=== PATIENT | female | born 1950 | race Caucasian/White ===

== ENCOUNTER → 2020-03-28 11:36 | Outpatient (BNVA) | payer MEDICARE, MEDICAID, SELFPAY | PROVIDERS: PCP Student in an Organized Health Care Education/Training Program; Visit Provider Internal Medicine | DX: E11.9 Type 2 diabetes mellitus without complications (principal); E78.5 Hyperlipidemia, unspecified; I10 Essential (primary) hypertension | CPT/HCPCS: 82947; 99212 ==

== ENCOUNTER → 2020-09-28 08:40 | Outpatient (BNVA) | payer MEDICARE, MEDICAID, SELFPAY | PROVIDERS: PCP Student in an Organized Health Care Education/Training Program; Visit Provider Internal Medicine | DX: E11.9 Type 2 diabetes mellitus without complications (principal); E78.5 Hyperlipidemia, unspecified; I10 Essential (primary) hypertension | CPT/HCPCS: 82947; 83036; 99212 ==

== ENCOUNTER 2020-12-05 09:54 | Outpatient (REF) | payer MEDICARE, OTHER, SELFPAY ==
[2020-12-05 13:36] LABS: Estimated Average Glucose 232 mg/dL; Hemoglobin A1c % 9.7 %
[2020-12-05 13:57] LABS: Alanine Aminotransferase 58 U/L (0-31); Alkaline Phosphatase 116 U/L (39-117); Anion Gap 13 (12-20); Aspartate Amino Transferase 53 U/L (5-31); Bilirubin Total 0.6 mg/dL (0.0-1.0); Blood Urea Nitrogen 20 mg/dL (9-16); Calcium 9.9 mg/dL (8.4-10.2); Carbon Dioxide 26 mmol/L (22-29); Chloride 103 mmol/L (96-108); Cholesterol 165 mg/dL; Estimated Glomerular Filt Rate 46; Glucose Random 248 mg/dL (60-115); HDL Cholesterol 52 mg/dL; LDL Cholesterol Calculated 69 mg/dl; Potassium 4.2 mmol/L (3.3-5.1); Sodium 138 mmol/L (135-145); Total Protein 8.3 g/dL (6.5-8.0); Triglycerides 222 mg/dL
[2020-12-05 13:58] LABS: Alanine Aminotransferase 57 U/L (0-31); Alkaline Phosphatase 116 U/L (39-117); Aspartate Amino Transferase 52 U/L (5-31); Bilirubin Direct 0.3 mg/dL (0.0-0.5); Bilirubin Total 0.6 mg/dL (0.0-1.0); Total Protein 8.2 g/dL (6.5-8.0)
[2020-12-06 11:01] LABS: LDL Cholesterol Direct 72 mg/dL (<100)
== END 2020-12-05 09:55 | disposition home or self-care (01) ==
LOC: HO.10HDL 09:54
PROVIDERS: Student in an Organized Health Care Education/Training Program; Visit Provider Internal Medicine
DX: E11.9 Type 2 diabetes mellitus without complications (principal)
CPT/HCPCS: 36415; 80053; 80061; 80076; 82248; 83036; 83721

== ENCOUNTER 2020-12-08 13:35 | Outpatient (REF) | payer MEDICARE, OTHER, SELFPAY ==
[2020-12-08 14:22] LABS: Creatinine Urine 34.81 mg/dL; Microalbum/Creatinine Ratio Ur 68.9 ug/mg cr
== END 2020-12-08 13:36 | disposition home or self-care (01) ==
LOC: HO.LNP 13:35
PROVIDERS: Visit Provider Student in an Organized Health Care Education/Training Program
DX: E11.9 Type 2 diabetes mellitus without complications (principal)
CPT/HCPCS: 82043

== ENCOUNTER → 2021-01-02 08:11 | Outpatient (BNVA) | payer MEDICARE, OTHER, SELFPAY | PROVIDERS: PCP Student in an Organized Health Care Education/Training Program; Visit Provider Internal Medicine | DX: E11.22 Type 2 diabetes mellitus with diabetic chronic kidney disease (principal); I12.9 Hypertensive chronic kidney disease with stage 1 through stage 4 chronic kidney disease, or unspecified chronic kidney disease; N18.30 Chronic kidney disease, stage 3 unspecified; E78.5 Hyperlipidemia, unspecified; R01.1 Cardiac murmur, unspecified | CPT/HCPCS: 82947; 99212 ==

== ENCOUNTER → 2021-02-16 13:11 | Outpatient (BNVA) | payer MEDICARE, OTHER, MEDICAID, SELFPAY | PROVIDERS: PCP Student in an Organized Health Care Education/Training Program; Visit Provider Internal Medicine | DX: I35.8 Other nonrheumatic aortic valve disorders (principal); E11.8 Type 2 diabetes mellitus with unspecified complications; E11.22 Type 2 diabetes mellitus with diabetic chronic kidney disease; I12.9 Hypertensive chronic kidney disease with stage 1 through stage 4 chronic kidney disease, or unspecified chronic kidney disease; N18.30 Chronic kidney disease, stage 3 unspecified | CPT/HCPCS: 93005; 99212 ==

== ENCOUNTER → 2021-04-28 08:28 | Outpatient (REF) | payer MEDICARE, OTHER, SELFPAY ==
--- NOTE | 2021-04-28 08:34 | CA_ITS ---
Transthoracic Echocardiogram Patient (Last, First, Middle): Delaney Arias, Gender: Female Date of : 1950 Age: 70 Procedure Date: 04/28/2021 Procedure Type: Transthoracic Echocardiogram Location: OP Height: 149.86 cm Weight: 64.86 kg BSA: 1.60 m2 Heart Rate: bpm BP: 118 / 60 mmHg Car Dumper: Referring MD: Zen Meeks MD Symptoms: I35.8 - Other nonrheumatic aortic valve disorders Study Quality: Fair ECG Rhythm: Sinus Conclusions: - The left ventricular systolic function is hyperdynamic. The visually estimated ejection fraction is >70%. - No obvious valvular pathology seen on this study. Findings Left Ventricle Normal left ventricular cavity size. There is mildly increased left ventricular wall thickness. The left ventricular systolic function is hyperdynamic. The visually estimated ejection fraction is >70%. There is no evidence of regional wall motion abnormalities. Diastolic function is normal for age. Right Ventricle Normal right ventricular cavity size and systolic function. Atria The left atrium is normal in size. Aortic Valve There is a normal trileaflet aortic valve. There is no aortic valve stenosis. There is no aortic valve regurgitation. Mitral Valve The mitral valve appears normal. There is no mitral valve regurgitation. There is no mitral valve stenosis. Pulmonic Valve The pulmonic valve was not well visualized. Tricuspid Valve There is trace tricuspid valve regurgitation. The pulmonary artery systolic pressure is normal. Great Vessels The aortic annulus, sinuses of valsalva, and asc aorta are normal in size. Venous The inferior vena cava is normal in size and collapses greater than 50% with inspiration. Pericardium/Pleural There is no evidence of pericardial effusion. Prior Study Comparison Changes noted compared to prior study dated: 02/11/2019. LV hyperdynamic. Recommendations, Care & Conclusions No obvious valvular pathology seen on this study. Measurements 2D Linear Measurements IVSd: 1.25 0.6-0.9/0.6-1.0 cm LVIDd: 3.92 3.9-5.3/4.2-5.9 cm LVIDd Index: 2.45 2.4-3.2/2.2-3.1 cm/m2 LVIDs: 2.42 2.0-3.6 cm LVPWd: 1.23 0.7-1.1 cm Ao Root: 2.60 2.1-3.5 cm LA Diam: 3.80 2.7-3.8/3.0-4.0 cm LAIDs Index: 2.38 1.5-2.3 cm/m2 LV Mass: 209.98 67-162/88-224 g LV Mass Index: 131.24 43-95/49-115 g/m2 LVOT Diam: 2.00 3.0+(-)1.3 cm 2D Systolic Function EF 4C: 71.60 >55% EF 2C: 67.20 >55% EF BiP: 69.60 >55% Mitral Valve MV Pk E: 0.80 MV PK A: 0.98 MV Decel Time: 193.00 E/A: 0.80 E'Lateral: 8.16 E'Medial: 5.98 E/E' Med: 13.40 E/E' Lat: 9.80 PHT: 57.00 MVA PHT: 3.86 Decel [place]: 4.15 Aortic Valve AoV Pk Antony: 2.08 AoV Mn Antony: 1.45 AoV VTI: 0.35 AoV Pk Grad: 17.00 Aov Mn Grad: 10.00 YVES Cont.VTI: 2.73 LVOT LVOT Pk Antony: 1.58 LVOT Mn Antony: 0.94 LVOT VTI: 0.30 LVOT Pk Grad: 10.00 LVOT Mn Grad: 5.00 LVOT Diam: 2.00 LVOT Area: 3.14 Diastolic Function MV Pk E: 0.80 MV Pk A: 0.98 E/A: 0.80 E'Medial: 5.98 E/E' Med: 13.40 E' Laterial: 8.16 E/E' Lat: 9.80 Right Ventricle TAPSE (mm): 30.00 TVS' Antony: 14.00 Tricuspid Valve TR Pk Antony: 1.99 TR Pk Grad: 16.00 RA Press: 3.00 RVSP: 19.00 Great Vessels Aorta Ao Root-2D: 2.60 2.0-3.7 cm Ao Asc: 3.50 2.1-3.4 cm Pulmonary Valve PV Pk Antony: 1.32 Peak PV Grad: 7.00 Updated in Other Vendor System with Status of Final Zen Meeks MD electronically signed on 04/29/2021 1:46:42 PM with status of Final
== END ==
LOC: HO.CARD 08:28
PROVIDERS: PCP Student in an Organized Health Care Education/Training Program; Visit Provider Internal Medicine
DX: I35.8 Other nonrheumatic aortic valve disorders (principal)
CPT/HCPCS: 93306

== ENCOUNTER → 2021-05-08 08:48 | Outpatient (BNVA) | payer MEDICARE, OTHER, MEDICAID, SELFPAY | PROVIDERS: PCP Student in an Organized Health Care Education/Training Program; Visit Provider Nurse Practitioner Gerontology | DX: E11.22 Type 2 diabetes mellitus with diabetic chronic kidney disease (principal); I12.9 Hypertensive chronic kidney disease with stage 1 through stage 4 chronic kidney disease, or unspecified chronic kidney disease; N18.30 Chronic kidney disease, stage 3 unspecified; E78.5 Hyperlipidemia, unspecified | CPT/HCPCS: 82947; 83036; 99212 ==

== ENCOUNTER → 2021-05-31 08:45 | Outpatient (BNVA) | payer MEDICARE, MEDICAID, SELFPAY | PROVIDERS: PCP Student in an Organized Health Care Education/Training Program; Visit Provider Registered Nurse Diabetes Educator | DX: E11.8 Type 2 diabetes mellitus with unspecified complications (principal) | CPT/HCPCS: 99211 ==

== ENCOUNTER → 2021-06-28 09:30 | Outpatient (BNVA) | payer MEDICARE, MEDICAID, SELFPAY | PROVIDERS: PCP Student in an Organized Health Care Education/Training Program; Visit Provider Registered Nurse Diabetes Educator | DX: E11.8 Type 2 diabetes mellitus with unspecified complications (principal) | CPT/HCPCS: 99211 ==

== ENCOUNTER → 2021-08-08 08:29 | Outpatient (BNVA) | payer MEDICARE, MEDICAID, SELFPAY | PROVIDERS: PCP Student in an Organized Health Care Education/Training Program; Visit Provider Nurse Practitioner Gerontology | DX: E11.22 Type 2 diabetes mellitus with diabetic chronic kidney disease (principal); I12.9 Hypertensive chronic kidney disease with stage 1 through stage 4 chronic kidney disease, or unspecified chronic kidney disease; N18.30 Chronic kidney disease, stage 3 unspecified; E78.5 Hyperlipidemia, unspecified | CPT/HCPCS: 82947; 83036; 99212 ==

== ENCOUNTER → 2021-08-09 08:48 | Outpatient (BNVA) | payer MEDICARE, MEDICAID, SELFPAY | PROVIDERS: PCP Student in an Organized Health Care Education/Training Program; Visit Provider Dietitian, Registered | DX: E11.22 Type 2 diabetes mellitus with diabetic chronic kidney disease (principal); N18.9 Chronic kidney disease, unspecified; Z71.3 Dietary counseling and surveillance | CPT/HCPCS: 97802 ==

== ENCOUNTER → 2021-09-05 08:29 | Outpatient (BNVA) | payer MEDICARE, MEDICAID, SELFPAY | PROVIDERS: PCP Student in an Organized Health Care Education/Training Program; Visit Provider Registered Nurse Diabetes Educator | DX: E11.8 Type 2 diabetes mellitus with unspecified complications (principal); Z79.4 Long term (current) use of insulin | CPT/HCPCS: 99211 ==

== ENCOUNTER → 2021-09-14 13:26 | Outpatient (BNVA) | payer MEDICARE, MEDICAID, SELFPAY | PROVIDERS: PCP Student in an Organized Health Care Education/Training Program; Visit Provider Internal Medicine | DX: I35.8 Other nonrheumatic aortic valve disorders (principal); E11.9 Type 2 diabetes mellitus without complications; I10 Essential (primary) hypertension; Z79.4 Long term (current) use of insulin | CPT/HCPCS: 99212 ==

== ENCOUNTER 2022-11-20 09:49 | Outpatient (AMB) | payer MEDICARE, MEDICAID, SELFPAY ==
[2022-11-20 10:06] VITALS: BP 150/70; PULSE 81; BMI 26.4
--- NOTE | 2022-11-20 10:06 | MHC.OFFVIS ---
Intake Vital Signs 11/20/22 10:06 Height 4 ft 11 in Weight 130 lb 15.273 oz BMI 26.4 BP 150/70 H Blood Pressure Location Lt brachial Position Sitting Pulse 81 Intake Visit Reasons: 1 year follow up Intake Note: 1 year follow up w/ EKG It Infrastructure Manager Required: Yes It Infrastructure Manager Language: Therapeutic Case Manager Name: Vargas [id number] Accompanied by: Spouse Allergies penicillin V Allergy (Unknown, Verified 11/20/22 10:07) Unknown pseudoephedrine [Aprodine] Allergy (Unknown, Verified 11/20/22 10:07) Unknown triprolidine [Aprodine] Allergy (Unknown, Verified 11/20/22 10:07) Unknown Medication List - Last Reconciled 11/20/22 by Zen Meeks MD alcohol swabs (Alcohol Prep Pads) 1 pad topical TID-QID 30 days anastrozole 1 mg PO DAILY ascorbate calcium (vitamin C) 500 mg PO DAILY atorvastatin 40 mg PO DAILY 30 days blood sugar diagnostic (FreeStyle Lite Strips) 1 strip miscellaneous QID 30 days blood sugar diagnostic (FreeStyle Lite Strips) 4x daily blood-glucose meter (FreeStyle Lite Meter kit) As directed cholecalciferol (vitamin D3) 50 mcg PO DAILY 30 days dapagliflozin propanediol (Farxiga) 10 mg PO QAM dulaglutide (Trulicity) 4.5 mg (0.5 mL) subcut QWEEK flash glucose scanning reader (FreeStyle Ladan 2 [place]) As directed flash glucose sensor (FreeStyle Ladan 2 Sensor kit) Once every 14 days fluoxetine 20 mg PO DAILY insulin aspart U-100 (Novolog FlexPen U-100 Insulin aspart) 14 - 18 units (0.14 - 0.18 mL) subcut TID 30 days insulin glargine 30 units subcut BEDTIME lancets (TRUEplus Lancets) 1 gauge miscellaneous QID 30 days levothyroxine 100 mcg PO QAM losartan 50 mg PO DAILY mirtazapine 30 mg PO BEDTIME omeprazole 20 mg PO DAILY pen needle, diabetic (Pentips) 4 ea miscellaneous DAILY 30 days pen needle,diabetic dual safty (BD AutoShield Duo Pen Needle) As directed 4x/day risperidone 1 mg PO BEDTIME HPI HPI Comments History of Present Illness Details Delaney returns for follow-up. In the past, she was seen for aortic valve sclerosis which was detected after a cardiac murmur. Overall, doing good. No specific complaints. No angina or shortness of breath or in fact anything cardiac sounding. Blood pressure is on the higher side today, but she states she does not check it at home. [facility] Medical History (Updated 02/16/21 @ 14:20 by Zen Meeks MD) CKD (chronic kidney disease) stage 3, GFR 30-59 ml/min HLD (hyperlipidemia) HTN (hypertension) Murmur T2DM (type 2 diabetes mellitus) Vitamin D deficiency Surgical History History of lumpectomy of right breast History of mastectomy Hx of cataract surgery Family History Father Alzheimer disease Stroke Mother Breast cancer Social History Household Members: Spouse Alcohol intake: never Patient Tobacco Use Status: Never used Tobacco Review of Systems Const Denies chills, Denies fatigue, Denies fever(s), Denies frequent falls, Denies weakness, Denies weight gain and Denies weight loss ENT Denies dizziness Card Denies chest pain, Denies leg edema, Denies lightheadedness, Denies palpitations, Denies dyspnea, Denies dyspnea on exertion, Denies orthopnea and Denies other (Loss of consciousness) Resp Denies cough, Denies dyspnea and Denies dyspnea on exertion GI Denies hematochezia and Denies change in bowel habits Musc Denies abnormal gait, Denies muscle weakness, Denies numbness, Denies radiating pain into limb and Denies tingling Neuro Denies Abnormal speech present, Denies abnormal gait, Denies dizziness, Denies frequent falls, Denies numbness, Denies tingling and Denies weakness Endo Denies fatigue and Denies palpitations Physical Exam Vital Signs: Last Vital Signs Pulse 81 11/20/22 10:06 BP 150/70 H 11/20/22 10:06 BMI result Body Mass Index 26.4 Const General: comfortable and no acute distress Orientation/consciousness: patient oriented x3 HEENT Other: Unremarkable Head: Yes normal to inspection Neck Neck: Yes normal visual inspection Chest Chest palpation & inspection: normal inspection of the chest Resp Auscultation: clear to auscultation bilaterally Cardio Palpation: normal PMI Heart sounds: S1 normal heart sound present, S2 normal heart sound present, no gallops, Murmur heart sound present systolic II/ and at the right sternal border and no rubs GI Palpation (GI): Soft to palpation Back/Spine/Pelvis Other: unremarkable Skin General skin exam: no rashes or lesions noted Neuro General: patient oriented x3 Speech: No Abnormal speech present Extrem General: Yes normal to inspection Psych Mental Status: mental status grossly normal Assessment & Plan Assessment & Plan (1) Aortic valve sclerosis: Code(s): I35.8 - Other nonrheumatic aortic valve disorders (2) Essential hypertension: Code(s): I10 - Essential (primary) hypertension Plan Cardiac studies reviewed. Echocardiogram from 2019 reported to have mild aortic valve calcification but no significant stenosis. Repeat echocardiogram more recently thought to have rather hyperdynamic LVEF without any clear aortic valve dysfunction. Hence that might also lead to cardiac murmur. However, there was no clear outflow tract gradients noted. She has also had a myocardial perfusion study in the past which did not show any significant findings. No specific management for either of the above. We can recheck the aortic valve in 2-3 years. Otherwise, blood pressure is on the higher side. Advised to do home checks. She is on Losartan. Follow-up in about 2 years or so with an echocardiogram at that time. In the interim, she will call with concerns. Coding Level of Care Code Est Pt Level 3 (79829) Diagnoses Aortic valve sclerosis I35.8 Essential hypertension I10
== END 2022-11-20 10:28 | disposition home or self-care (01) ==
PROVIDERS: PCP Student in an Organized Health Care Education/Training Program; Referring Provider Student in an Organized Health Care Education/Training Program; Visit Provider Internal Medicine
DX: I35.8 Other nonrheumatic aortic valve disorders (principal); I10 Essential (primary) hypertension
CPT/HCPCS: 93010; 99213

== ENCOUNTER → 2022-11-20 09:49 | Outpatient (BNVA) | payer MEDICARE, MEDICAID, SELFPAY | PROVIDERS: PCP Student in an Organized Health Care Education/Training Program; Referring Provider Student in an Organized Health Care Education/Training Program; Visit Provider Internal Medicine | DX: I35.8 Other nonrheumatic aortic valve disorders (principal); I10 Essential (primary) hypertension | CPT/HCPCS: 93005; 99212 ==

== ENCOUNTER 2023-03-15 11:20 | Outpatient (REF) | payer MEDICARE, MEDICAID, SELFPAY ==
[2023-03-15 14:24] LABS: MANUAL DIFF FLAG NO
[2023-03-15 14:29] LABS: Basophils Percent Auto 0.2 % (0-2); Eosinophils Absolute Auto 0.1 X10*3/uL (0.0-0.4); Eosinophils Percent Auto 1.3 % (0-4); Hematocrit 34.4 % (37.0-47.0); Hemoglobin 10.7 g/dl (12.0-16.0); Imm Gran Abs Auto 0.01 X10*3/uL (0.00-0.03); Imm Gran Pct Auto 0.2 % (0.0-0.4); Lymphocytes Percent Auto 20.6 % (20-40); Mean Corpuscular HGB Conc 31.1 g/dl (31.0-35.0); Mean Corpuscular Hemoglobin 26.9 pg (27.0-33.0); Mean Corpuscular Volume 86.4 fL (80.0-98.0); Mean Platelet Volume 10.7 fL (9.4-12.3); Monocytes Absolute Auto 0.4 X10*3/uL (0.1-1.2); Monocytes Percent Auto 9.5 % (2-11); Neutrophils Absolute Auto 3.2 x10*3/uL (2.0-8.3); Neutrophils Percent Auto 68.2 % (45-73); Platelet Count 113 X10*3/uL (160-400); Red Blood Count 3.98 X10*6/uL (4.20-5.50); Red Cell Distribution Width 15.1 % (11.0-16.0); White Blood Count 4.7 X10*3/uL (4.8-10.8)
[2023-03-15 15:08] LABS: Alanine Aminotransferase 35 U/L (0-31); Alkaline Phosphatase 131 U/L (39-117); Anion Gap 13 (12-20); Aspartate Amino Transferase 36 U/L (5-31); Bilirubin Total 0.5 mg/dL (0.0-1.0); Blood Urea Nitrogen 20 mg/dL (9-16); C Reactive Protein 0.33 mg/dL (< or = 0.50); Calcium 10.4 mg/dL (8.4-10.2); Carbon Dioxide 28 mmol/L (22-29); Chloride 105 mmol/L (96-108); Estimated Glomerular Filt Rate 47; Glucose Random 95 mg/dL (60-115); Potassium 4.4 mmol/L (3.3-5.1); Sodium 142 mmol/L (135-145)
== END 2023-03-15 11:21 | disposition home or self-care (01) ==
LOC: HO.CHCLDS 11:20
PROVIDERS: Visit Provider Family Medicine
DX: R39.9 Unspecified symptoms and signs involving the genitourinary system (principal); K57.92 Diverticulitis of intestine, part unspecified, without perforation or abscess without bleeding; R74.01 Elevation of levels of liver transaminase levels
CPT/HCPCS: 36415; 80053; 85025; 86140; 87086; 87088; 87186

== ENCOUNTER 2023-09-03 15:09 | Outpatient (REF) | payer MEDICARE, MEDICAID, SELFPAY ==
[2023-09-03 18:38] LABS: MANUAL DIFF FLAG NO
[2023-09-03 19:10] LABS: Basophils Percent Auto 0.3 % (0-2); Eosinophils Absolute Auto 0.1 X10*3/uL (0.0-0.4); Eosinophils Percent Auto 1.3 % (0-4); Hematocrit 32.9 % (37.0-47.0); Hemoglobin 10.2 g/dl (12.0-16.0); Imm Gran Abs Auto 0.01 X10*3/uL (0.00-0.03); Imm Gran Pct Auto 0.3 % (0.0-0.4); Lymphocytes Absolute Auto 0.8 X10*3/uL (1.2-4.9); Mean Corpuscular Hemoglobin 26.8 pg (27.0-33.0); Mean Corpuscular Volume 86.4 fL (80.0-98.0); Monocytes Absolute Auto 0.5 X10*3/uL (0.1-1.2); Monocytes Percent Auto 13.1 % (2-11); Neutrophils Absolute Auto 2.4 x10*3/uL (2.0-8.3); Platelet Count 108 X10*3/uL (160-400); Red Blood Count 3.81 X10*6/uL (4.20-5.50); Red Cell Distribution Width 14.4 % (11.0-16.0); White Blood Count 3.8 X10*3/uL (4.8-10.8)
[2023-09-03 19:36] LABS: Alanine Aminotransferase 21 U/L (0-31); Albumin Level 3.6 g/dL (3.5-5.0); Alkaline Phosphatase 125 U/L (39-117); Anion Gap 14 (12-20); Aspartate Amino Transferase 38 U/L (5-31); Bilirubin Direct 0.2 mg/dL (0.0-0.5); Bilirubin Total 0.3 mg/dL (0.0-1.0); Blood Urea Nitrogen 30 mg/dL (9-16); Calcium 10.5 mg/dL (8.4-10.2); Carbon Dioxide 30 mmol/L (22-29); Chloride 99 mmol/L (96-108); Cholesterol 199 mg/dL (<200); Estimated Glomerular Filt Rate 58; Glucose Random 103 mg/dL (60-115); HDL Cholesterol 79 mg/dL (>40); LDL Cholesterol Calculated 104 mg/dL (<100); Potassium 4.3 mmol/L (3.3-5.1); Sodium 139 mmol/L (135-145); Total Protein 9.8 g/dL (6.5-8.0); Triglycerides 84 mg/dL (<150)
== END 2023-09-03 15:10 | disposition home or self-care (01) ==
LOC: HO.CHCLDS 15:09
PROVIDERS: Visit Provider Student in an Organized Health Care Education/Training Program
DX: G25.2 Other specified forms of tremor (principal)
CPT/HCPCS: 36415; 80048; 80061; 80076; 85025

== ENCOUNTER 2023-10-21 09:48 | Outpatient (REF) | payer MEDICARE, MEDICAID, SELFPAY ==
[2023-10-21 15:27] LABS: Appearance Urine Clear; Color Urine Yellow; Glucose Urine UA 500 mg/dL (Negative); Leukocyte Esterase Urine Small (1+) (Negative); Nitrite Urine Negative (Negative); UMIC TRIGGER UA YES; Urine Blood Small (1+) (Negative); Urine Ketones Negative (Negative); Urine Protein Negative (Neg-Trace)
[2023-10-21 15:56] LABS: Bacteria Urine 1+ (None Seen); RBC Urine 0-2 /HPF (0-2); Squamous Epithelial Cell Urine 0-2 /HPF (0-2)
== END 2023-10-21 09:49 | disposition home or self-care (01) ==
LOC: HO.HHCL 09:48
PROVIDERS: Visit Provider Student in an Organized Health Care Education/Training Program
DX: E11.22 Type 2 diabetes mellitus with diabetic chronic kidney disease (principal); Z79.4 Long term (current) use of insulin
CPT/HCPCS: 81001

== ENCOUNTER 2023-12-02 21:45 | Outpatient (BNV) | payer MEDICARE, MEDICAID, SELFPAY | END 2023-12-20 13:23 | PROVIDERS: Admitting Provider Psychiatry & Neurology Psychiatry; PCP Student in an Organized Health Care Education/Training Program; Visit Provider Internal Medicine | DX: R94.31 Abnormal electrocardiogram [ECG] [EKG] (principal) | CPT/HCPCS: 93306 ==

== ENCOUNTER 2023-12-02 21:45 | Inpatient (IN) | payer MEDICARE, MEDICAID, SELFPAY ==
--- NOTE | ~2023-12-02 | XR_ITS ---
EXAMINATION: XR ABDOMEN KUB CLINICAL INDICATION: Rule out obstruction in patient with shoulder fracture COMPARISON: None available. TECHNIQUE: AP view of the abdomen. FINDINGS: The bowel gas pattern is normal with no evidence of ileus or obstruction. Moderate stool seen in the colon. No unusual soft tissue calcifications are noted. Degenerative changes are seen in the visualized spine. XR/XR KUB IMPRESSION: No evidence of bowel obstruction. Moderate stool burden. Electronically signed by: Jonh Purdy MD 01/08/2024 07:58 PM EDT
--- NOTE | ~2023-12-02 | XR_ITS ---
EXAMINATION: XR SHOULDER, RIGHT CLINICAL INFORMATION: Pain, rule out fracture COMPARISON: None available. TECHNIQUE: AP external rotation, Grashey, scapular Y, and axillary views of the right shoulder. FINDINGS: There is impacted, angulated fracture through the surgical neck of right shoulder weakness intact glenohumeral joint acromioclavicular clavicular joint is unremarkable. XR/XR shoulder RT min 2V IMPRESSION: Comminuted fracture of the right shoulder Electronically signed by: Sean Kirkpatrick MD 01/01/2024 10:25 AM EDT
--- NOTE | ~2023-12-02 | CT_ITS ---
EXAMINATION: CT HEAD WITHOUT CONTRAST CLINICAL INFORMATION: Catatonia. COMPARISON: None available. TECHNIQUE: Contiguous axial imaging was performed from the skull base to vertex without intravenous administration of contrast. This CT examination was performed using dose optimization techniques as appropriate, variously including the following: *Automated exposure control *Adjustment of mA and/or kV according to patient size (this includes techniques or standardized protocols for targeted exams where dose is matched to indication/reason for exam; i.e. extremities or head) *Use of iterative reconstruction technique DLP: 581 mGy-cm FINDINGS: There is no evidence of intracranial hemorrhage or extra-axial fluid collection. There is no mass effect, or edema. No CT evidence of acute territorial infarct. Negative hyperdense MCA sign. Ventricles, sulci, and cisterns are diffusely somewhat prominent, in keeping with mild age advanced cerebral and cerebellar involutional changes. Ventricles are mildly dilated out of proportion to sulcal atrophy, most likely representing central volume loss. No definite hydrocephalus. No midline shift. Small lipoma in the anterior falx. Partial empty sella noted. Moderate hypodense white matter changes in the hemispheres bilaterally, consistent with moderate microangiopathic changes. Prominent right greater than left subinsular white matter hypodensities present, also likely microvascular in etiology. Hypodensity in the posterior dung, likely old lacunar type infarct. Bilateral old lacunar type infarcts in both thalami, both internal capsules involving the anterior and posterior limbs, and bilateral basal ganglia. Mild atheromatous calcification of the bilateral carotid siphons. Globes and orbital contents image normally. Bilateral lens replacements. No extracranial soft tissue abnormalities. The paranasal sinuses, mastoid air cells, and tympanic cavities are normally aerated. No suspicious bony abnormalities. Right parietal thinning noted, normal variant. CT/CT head/brain wo IV con IMPRESSION: 1. No acute intracranial abnormalities. No intracranial hemorrhage or mass effect. 2. Moderate small vessel ischemic changes in the hemispheric white matter. 3. 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 4. Age advanced cerebral and cerebellar involutional changes with prominent ventricles. Cannot definitively exclude a component of communicating hydrocephalus given the appearance.
--- NOTE | ~2023-12-02 | CT_ITS ---
EXAMINATION: CT HEAD WITHOUT IV CONTRAST CLINICAL INFORMATION: pupils fixed and non reactive COMPARISON: CT head without contrast 12/03/2023 TECHNIQUE: Contiguous axial imaging was performed from the skull base to vertex without intravenous contrast. Sagittal and coronal reformatted images were obtained. This CT examination was performed using dose optimization techniques as appropriate, variously including the following: * Automated exposure control * Adjustment of mA and/or kV according to patient size (this includes techniques or standardized protocols for targeted exams where dose is matched to indication/reason for exam; i.e. extremities or head) Use of iterative reconstruction technique DLP: 586 mGy-cm FINDINGS: No acute osseous or soft tissue abnormality. The mastoids are clear. Mild right sphenoid sinus mucosal thickening. There is no evidence of acute intracranial hemorrhage or territorial infarction. No abnormal mass effect or midline shift is seen. Fam to white matter differentiation is well preserved. No extra-axial fluid collections are identified. No hydrocephalus. Proportional prominence of the ventricles and sulcal spaces related to volume loss. Patchy periventricular and deep white matter hypoattenuation is consistent with moderate small vessel ischemic changes. Chronic lacunar infarcts involving the deep fam nuclei. No new parenchymal hypodensity. CT/CT head/brain wo IV con IMPRESSION: No acute intracranial abnormality including hemorrhage, mass effect, hydrocephalus, or acute territorial edematous infarction. Electronically signed by: Juan Alberto Murdock MD 12/10/2023 10:07 PM EDT
--- NOTE | ~2023-12-02 | XR_ITS ---
EXAMINATION: XR ABDOMEN KUB CLINICAL INDICATION: Constipation. COMPARISON: None available. TECHNIQUE: Portable AP view of the abdomen. FINDINGS: Mild elevation of the right hemidiaphragm. Limited evaluation of the lung bases. Cannot confirm or exclude left basilar focal infiltrate. Mild to moderate stool throughout the colon and rectal vault. No evidence of intestinal obstruction or free air. No soft tissue mass or organomegaly identified. No unusual soft tissue calcifications are noted. Mild degenerative changes of the spine and hips. Vascular calcification. Surgical clips project over the left upper quadrant/left lung base. XR/XR KUB IMPRESSION: Findings as above. Electronically signed by: Rakesh Garcia MD 01/05/2024 05:10 PM EDT
--- NOTE | ~2023-12-02 | XR_ITS ---
EXAMINATION: XR CHEST CLINICAL INFORMATION: Altered sensorium. COMPARISON: Report from a chest radiograph dated 09/23/2008. TECHNIQUE: Frontal view of the chest was obtained. FINDINGS: Chronic interstitial prominence without focal consolidative airspace opacity. Densities along the left lower chest which may represent pleural calcifications versus soft tissue calcifications. Correlation with lateral radiograph could help further evaluate. Left accessory surgical clips. No pleural effusion or pneumothorax. Unremarkable cardiomediastinal silhouette. XR/XR chest 1V IMPRESSION: 1. Chronic interstitial prominence without focal consolidative airspace opacity. 2. Densities along the left lower chest which may represent pleural calcifications versus soft tissue calcifications. Correlation with lateral radiograph could help further evaluate. Electronically signed by: Viral Smallwood MD 12/03/2023 01:33 PM EDT
[2023-12-02 22:30] VITALS: BP 135/61; PULSE 83; RESP 16; TEMP 36.8; O2SAT 95
[2023-12-02 22:59] LABS: Glucose, Whole Blood 296 mg/dL (60-115)
--- NOTE | 2023-12-03 00:07 | PC.ADMIT ---
patient arrived on unit 12/02/23 at 2217 via stretcher, at times patient will respond to her name, patient mostly unresponsive, patient nonsensical and delusional when she does respond, she was unable to sign consents or any admission paperwork, patient transferred from stretcher to bed d/t being immobile, scattered open areas on coccyx, she was admitted with an indwelling Meek catheter, she has a left side mastectomy and what appears to be a transponder for a glucose testing device on her left arm, Delaney was admitted with MDD with psychotic features and delirium, medical diagnosis: HTN, Type 2 diabetes, Hx GI bleed, diverticulitis, seizure d/o and asthma, She has a Hx of ECT with similar presentation in the past.
--- NOTE | 2023-12-03 06:12 | PC.NURSE ---
@0600 F/C output 175ml, incontinent of dark, tarry stool, patient seems catatonic
[2023-12-03 06:49] LABS: Glucose, Whole Blood 212 mg/dL (60-115)
[2023-12-03 08:16] VITALS: BP 108/60; PULSE 95; RESP 16; TEMP 36.8; O2SAT 98
[2023-12-03 08:22] LABS: Estimated Average Glucose 169 mg/dL; Hemoglobin A1C 150.8913 umol/L; Hemoglobin A1c % 7.5 % (<6.0); Total Hemoglobin (HGBA1C) 2584.8492 umol/L
[2023-12-03 08:31] LABS: Alanine Aminotransferase 16 U/L (0-31); Albumin Level 3.5 g/dL (3.5-5.0); Alkaline Phosphatase 93 U/L (39-117); Anion Gap 13 (12-20); Aspartate Amino Transferase 19 U/L (5-31); Bilirubin Total 0.5 mg/dL (0.0-1.0); Blood Urea Nitrogen 21 mg/dL (9-16); Calcium 10.2 mg/dL (8.4-10.2); Carbon Dioxide 27 mmol/L (22-29); Chloride 98 mmol/L (96-108); Cholesterol 182 mg/dL (<200); Estimated Glomerular Filt Rate > 60; Glucose Fasting 236 mg/dL (60-99); HDL Cholesterol 68 mg/dL (>40); LDL Cholesterol Calculated 93 mg/dL (<100); Sodium 134 mmol/L (135-145); Total Protein 8.7 g/dL (6.5-8.0); Triglycerides 105 mg/dL (<150)
[2023-12-03] MEDS: Insulin Lispro 100 UNIT/ML 3 ML VIAL SUBCUT ×4 (09:02→21:13)
[2023-12-03 09:36] VITALS: BP 108/62
[2023-12-03] MEDS: Furosemide 20 MG TABLET PO (09:36)
[2023-12-03] MEDS: amLODIPine Besylate 5 MG TABLET PO (09:36)
[2023-12-03] MEDS: Losartan Potassium 50 MG TABLET 100 MG PO (09:36)
[2023-12-03] MEDS: Magnesium Oxide 400 MG TABLET PO ×2 (09:36→19:26)
[2023-12-03] MEDS: Multivitamin TABLET 1 TAB PO (09:37)
[2023-12-03] MEDS: Omeprazole 20 MG CAPSULE.DR PO (09:37)
[2023-12-03] MEDS: Ferrous Sulfate 324 MG TABLET.DR PO (09:37)
[2023-12-03] MEDS: levETIRAcetam 500 MG TABLET PO ×2 (09:37→19:25)
[2023-12-03] MEDS: Thiamine HCL 100 MG TABLET PO (09:37)
[2023-12-03] MEDS: Aspirin 81 MG TAB.CHEW PO (09:37)
--- NOTE | 2023-12-03 09:51 | HO.PM.IMCN ---
History of Present Illness Data of Consult Service Date: 12/03/23 Requesting physician: Manuel Gold Primary Care Provider: Kim Gates MD HPI Reason for consult: medical H&P, kiko felix 73-year-old female with history of insulin-dependent type 2 diabetes, hypertension, hyperlipidemia, history of C diff colitis, hypothyroidism, heart failure preserved ejection fraction, cirrhosis admitted to [facility] for catatonia with consult placed to hospitalist service for medical H&P. She was admitted from [facility] ED where hematology studies revealed a chronic pancytopenia likely related to cirrhosis with WBC 2.7, RBC 3.25, H/H 8.7/26.9 (consistent with baseline), platelet count 107. Renal function baseline. Electrolyte levels with sodium 130, chloride 93, magnesium 1.5, otherwise within normal limits. Total bilirubin 0.4, direct bilirubin undetectable, AST 42, ALT 19. Ammonia level ordered and pending. Vitamin B12 within normal limits, folic acid within normal limits. Urine tox screen unremarkable. Valproic acid level low at 20.6. TSH 4.08, free T4 within normal limits at 1.50. UA with slight bacteria, no urine culture added. Pt incontinent at baseline with PVR of >300ml. Arango catheter placed in ED. EKG showed sinus rhythm with PACs and aberrant conduction without any acute ST/T-wave changes, rate. Head CT/CXR not performed. Per nursing report, patient had episode of fecal incontinence with dark tarry stool this morning. Does not appear that this was sent for stool occult blood evaluation. Pt is catatoic, does state her name but is otherwise nonverbal and not following commands. Review of Systems Review of Systems: Yes Unobtainable due to mental status [facility] Medical History Cirrhosis Hypothyroidism Breast cancer Hx of Clostridium difficile infection (HFpEF) heart failure with preserved ejection fraction Murmur CKD (chronic kidney disease) stage 3, GFR 30-59 ml/min Vitamin D deficiency HLD (hyperlipidemia) HTN (hypertension) T2DM (type 2 diabetes mellitus) Family History Father Alzheimer disease Stroke Mother Breast cancer Surgical History Hx of cataract surgery History of lumpectomy of right breast History of mastectomy Social History Household Members: Family Household Members Other:: son Alcohol intake: never Patient Tobacco Use Status: Never used Tobacco Use of substances other than those prescribed or required for medical reasons: Unable to respond Last Used Substance Other:: unknown, unable to respond, she is nonsensical and delusional when she does Currently Displaying Signs/Symptoms of Drug Intoxication Withdrawal: No Other Past Substance Use Problem:: unknown, unable to respond, she is nonsensical and delusional when she does Spiritual Healthcare Practices: unknown, unable to respond, she is nonsensical and delusional when she does respond Sabianist Healthcare Practices: unknown, unable to respond, she is nonsensical and delusional when she does respond Cultural Healthcare Practices: unknown, unable to respond, she is nonsensical and delusional when she does respond Advance Directives: No Advance Directives Information Provided: No Recently lost weight without trying: Unsure Patient : No : No Poor oral hygiene: No Meds Allergies Allergy/AdvReac Type Severity Reaction Status Date / Time atropine Allergy Unknown Shortness Verified 12/02/23 23:30 of Breath enoxaparin [From Lovenox] Allergy Unknown Unknown Verified 12/02/23 23:30 penicillin V Allergy Unknown Unknown Verified 03/19/23 07:30 pseudoephedrine [Aprodine] Allergy Unknown Unknown Verified 03/19/23 07:30 triprolidine [Aprodine] Allergy Unknown Unknown Verified 03/19/23 07:30 Active Medications: Current Medications Acetaminophen (Acetaminophen 325 Mg Tablet) 650 mg PO Q6H PRN PRN Reason: Headache/Pain Mild Scale (1-3) Al Hydroxide/Mg Hydroxide (Magnesium Hydrox/Alum Hydrox 30 Ml Oral.Susp) 30 ml PO Q6H PRN PRN Reason: Heartburn/Nausea Amlodipine Besylate (Amlodipine Besylate 5 Mg Tablet) 5 mg PO DAILY [facility] [place]; Protocol Last Admin: 12/03/23 09:36 Dose: 5 mg Anastrozole (Anastrozole 1 Mg Tablet) 1 mg PO DAILY TOVA Aspirin (Aspirin 81 Mg Tab.Chew) 81 mg PO DAILY TOVA Last Admin: 12/03/23 09:37 Dose: 81 mg Atorvastatin Calcium (Atorvastatin Calcium 10 Mg Tablet) 10 mg PO BEDTIME TOVA Divalproex Sodium (Divalproex Sodium 500 Mg Tablet.) 500 mg PO BEDTIME TOVA Ferrous Sulfate (Ferrous Sulfate 324 Mg Tablet.) 324 mg PO DAILY [facility] [place] Last Admin: 12/03/23 09:37 Dose: 324 mg Furosemide (Furosemide 20 Mg Tablet) 20 mg PO DAILY [facility]; Protocol Last Admin: 12/03/23 09:36 Dose: 20 mg Glucose (Glucose Gel 15 Gm Gel..Gram.) 15 gm PO Q15M PRN; Protocol PRN Reason: per Hypoglycemia Standing Ord. Dextrose (D10) 250 mls @ 750 mls/hr IV Q15M PRN; Protocol PRN Reason: per Hypoglycemia Standing Ord. Insulin Glargine (Insulin Glargine,Hum.Rec.Anlog 100 Unit/Ml 10 Ml Vial) 6 unit SUBCUT BEDTIME TOVA Insulin Human Lispro (Insulin Lispro 100 Unit/Ml 3 Ml Vial) 0 unit SUBCUT QIDACHS [facility] [place]; Protocol Stop: 12/03/23 22:56 Last Admin: 12/03/23 09:02 Dose: 4 unit Levetiracetam (Levetiracetam 500 Mg Tablet) 500 mg PO BID [facility] [place] Last Admin: 12/03/23 09:37 Dose: 500 mg Loratadine (Loratadine 10 Mg Tablet) 10 mg PO BEDTIME TOVA Losartan Potassium (Losartan Potassium 50 Mg Tablet) 100 mg PO DAILY [facility] [place]; Protocol Last Admin: 12/03/23 09:36 Dose: 100 mg Magnesium Hydroxide (Milk Of Magnesia 30 Ml Oral.Susp) 30 ml PO DAILY PRN PRN Reason: Constipation Magnesium Oxide (Magnesium Oxide 400 Mg Tablet) 400 mg PO BID [facility] [place] Last Admin: 12/03/23 09:36 Dose: 400 mg Mirtazapine (Mirtazapine 30 Mg Tablet) 30 mg PO BEDTIME [facility] [place] Multivitamins/Vitamin C (Multivitamin Tablet) 1 tab PO DAILY [facility] [place] Last Admin: 12/03/23 09:37 Dose: 1 tab Nicotine Polacrilex (Nicotine Polacrilex 2 Mg Gum) 4 mg BUCCAL Q2H PRN PRN Reason: Nicotine Cravings Omeprazole (Omeprazole 20 Mg Capsule.) 20 mg PO DAILY@0630 [facility] [place] Last Admin: 12/03/23 09:37 Dose: 20 mg Risperidone (Risperidone 0.5 Mg Tablet) 0.5 mg PO BID PRN PRN Reason: Restlessness Thiamine HCl (Thiamine Hcl 100 Mg Tablet) 100 mg PO DAILY [facility] [place] Last Admin: 12/03/23 09:37 Dose: 100 mg Trazodone HCl (Trazodone Hcl 50 Mg Tablet) 50 mg PO BEDTIME PRN PRN Reason: Insomnia Vancomycin HCl (Vancomycin Hcl 125 Mg Capsule) 0 mg PO .COMPLEX [facility] Home Medications ?Medication ?Instructions ?Recorded ?Confirmed ?Last Taken ?Type ascorbate calcium (vitamin C) 500 500 mg PO DAILY 03/24/20 11/20/22 Unknown History mg tablet fluoxetine 20 mg capsule 40 mg PO DAILY 03/24/20 11/20/22 Unknown History levothyroxine 100 mcg tablet 100 mcg PO QAM 03/24/20 11/20/22 Unknown History mirtazapine 30 mg tablet 30 mg PO BEDTIME 03/24/20 11/20/22 Unknown History omeprazole 20 mg capsule,delayed 20 mg PO DAILY 03/24/20 11/20/22 Unknown History release risperidone 1 mg tablet 1 mg PO BEDTIME 03/24/20 11/20/22 Unknown History insulin glargine 100 unit/mL (3 30 unit subcut BEDTIME 09/28/20 11/20/22 Unknown History mL) subcutaneous pen anastrozole 1 mg tablet 1 mg PO DAILY 02/16/21 11/20/22 Unknown History dapagliflozin propanediol 10 mg 10 mg PO QAM 05/08/21 11/20/22 Unknown History tablet (Farxiga) losartan 50 mg tablet 50 mg PO DAILY 09/14/21 11/20/22 Unknown History amlodipine 5 mg tablet 5 mg PO QAM 12/02/23 12/02/23 Unknown History anastrozole 1 mg tablet 1 mg PO DAILY 12/02/23 12/02/23 Unknown History aspirin 81 mg chewable tablet 1 tab PO QAM 12/02/23 12/02/23 Unknown History cetirizine 5 mg tablet 5 mg PO BEDTIME 12/02/23 12/02/23 Unknown History divalproex 500 mg tablet,delayed 500 mg PO BEDTIME 12/02/23 12/02/23 Unknown History release ferrous sulfate 325 mg (65 mg 325 mg PO QAM 12/02/23 12/02/23 Unknown History iron) tablet (FeroSul) furosemide 20 mg tablet (Lasix) 20 mg PO DAILY 12/02/23 12/02/23 Unknown History insulin glargine 100 unit/mL 6 unit subcut BEDTIME 12/02/23 12/02/23 Unknown History subcutaneous solution insulin lispro 100 unit/mL 1 sliding scale dose subcut 12/02/23 12/02/23 Unknown History subcutaneous solution USEASDIRECTD levetiracetam 500 mg tablet 500 mg PO BID 12/02/23 12/02/23 Unknown History losartan 100 mg tablet 100 mg PO DAILY 12/02/23 12/02/23 Unknown History losartan 100 mg tablet 100 mg PO DAILY 12/02/23 12/02/23 Unknown History magnesium oxide 400 mg PO BID 12/02/23 12/02/23 Unknown History mirtazapine 30 mg disintegrating 30 mg PO BEDTIME 12/02/23 12/02/23 Unknown History tablet multivitamin with minerals 1 tab PO DAILY 12/02/23 12/02/23 Unknown History pantoprazole 40 mg tablet,delayed 40 mg PO DAILY 12/02/23 12/02/23 Unknown History release risperidone 0.5 mg tablet 0.5 mg PO BID PRN Agitation 12/02/23 12/02/23 Unknown History risperidone 2 mg tablet 2 mg PO BID 12/02/23 12/02/23 Unknown History simvastatin 20 mg tablet 20 mg PO BEDTIME 12/02/23 12/02/23 Unknown History thiamine HCl (vitamin B1) 100 mg 100 mg PO QAM 12/02/23 12/02/23 Unknown History tablet trazodone 50 mg tablet 50 mg PO BEDTIME PRN insomnia 12/02/23 12/02/23 Unknown History vancomycin 125 mg capsule See Rx Instructions .Route .COMPLEX 12/02/23 12/02/23 Unknown History (Vancocin) Physical Exam Vital Signs and Narrative: Vital Signs: Last Vital Signs Temp 98.2 F 12/02/23 22:30 Pulse 83 12/02/23 22:30 Resp 16 12/02/23 22:30 BP 108/62 12/03/23 09:36 Pulse Ox 95 12/02/23 22:30 O2 Del Method Room Air 12/02/23 22:30 Constitutional - Awake and Alert, but nonverbal. No apparent distress Eyes - PERRLA, EOMI Cardiovascular - S1S2, RRR, No edema Respiratory - Normal lung expansion, Normal respiratory effort, No respiratory distress, CTA bilaterally Gastrointestinal - NT / ND; +BS; No rebound or guarding Extremities - no calf tenderness bilaterally, no swelling Musculoskeletal - Normal inspection, normal ROM Skin - Warm/Dry. RN reported stage 2 decubitus ulcer coccyx covered with dressing- see wound rn note Neurological - Alert & oriented self, otherwise nonverbal, not following commands, CN II- appear in tact, eyes tracking around room but not following commands. Has slow ataxic gait. Extremities appear to have good tone Results Labs 12/03/23 10:29 12/03/23 08:01 Labs: Laboratory Results - last 24 hr 12/02/23 12/03/23 12/03/23 22:55 06:35 08:01 Anion Gap 13 Estim Creat Clear Calc TNP Estimated GFR > 60 POC Glucose 296 H 212 H Fasting Glucose 236 H Estimat Average Glucose 169 Hemoglobin A1c % 7.5 H Calcium 10.2 Total Bilirubin 0.5 AST 19 ALT 16 Alkaline Phosphatase 93 Total Protein 8.7 H Albumin 3.5 Triglycerides 105 Cholesterol 182 LDL Cholesterol, Calc 93 HDL Cholesterol 68 Assessment and Plan (1) Routine medical exam: Status: Acute (2) Dark stools: Status: Acute Plan 73-year-old female with history of insulin-dependent type 2 diabetes, hypertension, hyperlipidemia, history of C diff colitis, hypothyroidism, heart failure preserved ejection fraction, cirrhosis admitted to Geriatric Psychiatry for catatonia with consult placed to hospitalist service for medical H&P. #Catatonia/neurocogitive disorder -r/o infectious causes of delerium -UA with slight bacteria at [facility], but no UC sent. Check UA w/ relfex UC. Treat as appropriate -Check CXR -COVID negative -check ammonia level -tsh/free t4 snl -Head CT ordered -If medical causes of delerium are ruled out and clinical presentation remains the same, psychiatry considering ECT. Apparently has undergone ECT in the past but prior notes are not available. No hx seizures or known CAD. Does have history of CHF, but no exacerbation. Revised cardiac risk index score 1, Class II risk. At this time no medical contraindication exists that should preclude patient from undergoing ECT. Recommend appropriate anesthesia precautions #Urinary retention -continue arango, please place urology consult # fecal incontinence with RN reported dark tarry stool -does take ferrous sulfate -check stool occult blood and H/H -check GI panel and C diff PCR given history #Stage 2 decubitus ulcer coccyx -wound RN consult # insulin-dependent type 2 diabetes -continue basal insulin, Humalog on sliding scale -POC glucose. Recommend diabetic diet # heart failure preserved ejection fraction -no acute exacerbation, continue p.o. diuretics # hypertension -continue losartan, amlodipine. Monitor blood pressures # hypothyroidism -euthyroid, continue levothyroxine # unspecified seizure disorder -continue Keppra # chronic pancytopenia -related to cirrhosis, counts baseline # hepatic cirrhosis related to NAFLD -compensated, continue diuretics Thank you for this consult, will continue following for results
[2023-12-03 10:42] LABS: MANUAL DIFF FLAG NO
[2023-12-03 10:45] LABS: Basophils Percent Auto 0.2 % (0-2); Eosinophils Absolute Auto 0.1 X10*3/uL (0.0-0.4); Eosinophils Percent Auto 1.1 % (0-4); Hematocrit 33.1 % (37.0-47.0); Hemoglobin 10.9 g/dl (12.0-16.0); Imm Gran Abs Auto 0.01 X10*3/uL (0.00-0.03); Imm Gran Pct Auto 0.2 % (0.0-0.4); Lymphocytes Absolute Auto 0.8 X10*3/uL (1.2-4.9); Lymphocytes Percent Auto 17.7 % (20-40); Mean Corpuscular HGB Conc 32.9 g/dl (31.0-35.0); Mean Corpuscular Hemoglobin 27.5 pg (27.0-33.0); Mean Corpuscular Volume 83.6 fL (80.0-98.0); Mean Platelet Volume 9.5 fL (9.4-12.3); Monocytes Absolute Auto 0.5 X10*3/uL (0.1-1.2); Monocytes Percent Auto 10.4 % (2-11); Neutrophils Absolute Auto 3.3 x10*3/uL (2.0-8.3); Neutrophils Percent Auto 70.4 % (45-73); Platelet Count 116 X10*3/uL (160-400); Red Blood Count 3.96 X10*6/uL (4.20-5.50); Red Cell Distribution Width 14.9 % (11.0-16.0); White Blood Count 4.6 X10*3/uL (4.8-10.8)
[2023-12-03] MEDS: Anastrozole 1 MG TABLET PO (11:13)
[2023-12-03 11:35] LABS: Glucose, Whole Blood 234 mg/dL (60-115)
[2023-12-03 11:59] LABS: Ammonia 55 umol/L (13-55)
--- NOTE | 2023-12-03 12:02 | HO.PSYADMNOT ---
[facility] Date of Service: 12/03/23 Chief Complaint: Major depressive disorder, severe, recurrent Sources of Information: patient interviewed, chart reviewed and crisis/core team assessment reviewed HPI Subjective Notes: [place] Warning and Section 12B Healthcare Proxy: Yes Narrative: Patient is a 73-year-old Citizen Of [place] female, , mother of adult children, with a past history of major depressive disorder, high blood pressure chronic kidney disease stage 3 diabetes type 2 and other medical comorbidities who was referred from the emergency room of [facility] for exacerbation of depression with neurovegetative symptoms. As per the crisis report the patient had being very depressed for the last weeks, with poor appetite poor sleep, depressed mood and suicidal thoughts. She was brought by her family since she was relapsing on her depressive symptoms. On interview, the patient was interviewed in Lithuanian. She was a very poor historian, with delayed thought process and with a very limited affect. She was interviewed with her who was the 1 who provide more information. Apparently the patient had been suffering from depression for several years but depressive episode worsen it on March last year when her provider told him that she had elevated liver function tests and she was scared that she could have cancer. The patient had an episode of breast cancer in 1996 that end up on a mastectomy a few years ago. Since then she had been very anxious, with depressed mood anhedonia lack of energy feelings of hopelessness and worthlessness. She was admitted initially to Psychiatry and later on transferred to Medicine due to an infection of Clostridium diff where she spent 3 months in Medicine and later on to subacute rehab since the patient was unable to walk. Historically, the patient has responded to ECT in the past, as per the report of her , when she was admitted once at [facility], she was followed by Dr. Tolbert and he prescribed ECT with for response. During the interview the patient agreed on having ECT and continue with medication management. She denies auditory hallucinations but she looks internally preoccupied, she is very depressed with depressed mood, anhedonia, lack of energy, feelings of hopelessness and passive suicidal thoughts. She also has severe psychomotor retardation. Past Psychiatric History: She has a long history of major depressive disorder with prior psychiatric admissions, she had ECT in the past. Medical Evaluation Reviewed: Yes FORMERLY [facility] Medical History Cirrhosis Hypothyroidism Breast cancer Hx of Clostridium difficile infection (HFpEF) heart failure with preserved ejection fraction Murmur CKD (chronic kidney disease) stage 3, GFR 30-59 ml/min Vitamin D deficiency HLD (hyperlipidemia) HTN (hypertension) T2DM (type 2 diabetes mellitus) Surgical History Hx of cataract surgery History of lumpectomy of right breast History of mastectomy Family History: She has a strong family history of depression, she has several siblings with depression and mood disorders. Social History: The patient is the 3rd of 5 siblings, her milestones were achieved at expected age she was born and raised in [place] and she was raised by her parents. Later on, she graduated from high school and had some college, she has worked as a workers compensation legal secretary. She had been for 44 years and she had 4 children. She has good social support. Substance History: Denies Trauma History: Unable to answer Diagnostics Vital Signs (24Hr): Vital Signs - 24 hr 12/02/23 22:30 12/03/23 08:16 12/03/23 09:36 Temperature 98.2 F 98.2 F Pulse Rate 83 95 Respiratory Rate 16 16 Blood Pressure 135/61 108/60 108/62 Pulse Oximetry 95 98 Oxygen Delivery Method Room Air Room Air 12/03/23 09:36 12/03/23 09:36 Temperature Pulse Rate Respiratory Rate Blood Pressure 108/62 108/62 Pulse Oximetry Oxygen Delivery Method Labs 12/03/23 10:29 12/03/23 08:01 Labs: Laboratory Results - last 48 hr 12/02/23 12/03/23 12/03/23 22:55 06:35 08:01 WBC RBC Hgb Hct MCV MCH MCHC RDW Plt Count MPV Immature Gran % (Auto) Neut % (Auto) Lymph % (Auto) [place] % (Auto) Eos % (Auto) Baso % (Auto) Lymph # (Auto) [place] # (Auto) Eos # (Auto) Baso # (Auto) Abs Immat Gran (auto) Absolute Neuts (auto) Absolute Nucleated RBC Nucleated RBC % (auto) Sodium 134 L Potassium 4.0 Chloride 98 Carbon Dioxide 27 Anion Gap 13 BUN 21 H Creatinine 0.88 Estim Creat Clear Calc TNP Estimated GFR > 60 POC Glucose 296 H 212 H Fasting Glucose 236 H Estimat Average Glucose 169 Hemoglobin A1c % 7.5 H Calcium 10.2 Total Bilirubin 0.5 AST 19 ALT 16 Alkaline Phosphatase 93 Ammonia Total Protein 8.7 H Albumin 3.5 Triglycerides 105 Cholesterol 182 LDL Cholesterol, Calc 93 HDL Cholesterol 68 12/03/23 12/03/23 12/03/23 10:29 11:31 11:45 WBC 4.6 L RBC 3.96 L Hgb 10.9 L Hct 33.1 L MCV 83.6 MCH 27.5 MCHC 32.9 RDW 14.9 Plt Count 116 L MPV 9.5 Immature Gran % (Auto) 0.2 Neut % (Auto) 70.4 Lymph % (Auto) 17.7 L [place] % (Auto) 10.4 Eos % (Auto) 1.1 Baso % (Auto) 0.2 Lymph # (Auto) 0.8 L [place] # (Auto) 0.5 Eos # (Auto) 0.1 Baso # (Auto) 0.0 Abs Immat Gran (auto) 0.01 Absolute Neuts (auto) 3.3 Absolute Nucleated RBC 0.000 Nucleated RBC % (auto) 0.0 Sodium Potassium Chloride Carbon Dioxide Anion Gap BUN Creatinine Estim Creat Clear Calc Estimated GFR POC Glucose 234 H Fasting Glucose Estimat Average Glucose Hemoglobin A1c % Calcium Total Bilirubin AST ALT Alkaline Phosphatase Ammonia 55 Total Protein Albumin Triglycerides Cholesterol LDL Cholesterol, Calc HDL Cholesterol Meds/Allergies Meds Home Medications ?Medication ?Instructions ?Recorded ?Confirmed ?Type ascorbate calcium (vitamin C) 500 500 mg PO DAILY 03/24/20 11/20/22 History mg tablet fluoxetine 20 mg capsule 40 mg PO DAILY 03/24/20 11/20/22 History levothyroxine 100 mcg tablet 100 mcg PO QAM 03/24/20 11/20/22 History mirtazapine 30 mg tablet 30 mg PO BEDTIME 03/24/20 11/20/22 History omeprazole 20 mg capsule,delayed 20 mg PO DAILY 03/24/20 11/20/22 History release risperidone 1 mg tablet 1 mg PO BEDTIME 03/24/20 11/20/22 History insulin glargine 100 unit/mL (3 30 unit subcut BEDTIME 09/28/20 11/20/22 History mL) subcutaneous pen anastrozole 1 mg tablet 1 mg PO DAILY 02/16/21 11/20/22 History dapagliflozin propanediol 10 mg 10 mg PO QAM 05/08/21 11/20/22 History tablet (Farxiga) losartan 50 mg tablet 50 mg PO DAILY 09/14/21 11/20/22 History amlodipine 5 mg tablet 5 mg PO QAM 12/02/23 12/02/23 History anastrozole 1 mg tablet 1 mg PO DAILY 12/02/23 12/02/23 History aspirin 81 mg chewable tablet 1 tab PO QAM 12/02/23 12/02/23 History cetirizine 5 mg tablet 5 mg PO BEDTIME 12/02/23 12/02/23 History divalproex 500 mg tablet,delayed 500 mg PO BEDTIME 12/02/23 12/02/23 History release ferrous sulfate 325 mg (65 mg 325 mg PO QAM 12/02/23 12/02/23 History iron) tablet (FeroSul) furosemide 20 mg tablet (Lasix) 20 mg PO DAILY 12/02/23 12/02/23 History insulin glargine 100 unit/mL 6 unit subcut BEDTIME 12/02/23 12/02/23 History subcutaneous solution insulin lispro 100 unit/mL 1 sliding scale dose subcut 12/02/23 12/02/23 History subcutaneous solution USEASDIRECTD levetiracetam 500 mg tablet 500 mg PO BID 12/02/23 12/02/23 History losartan 100 mg tablet 100 mg PO DAILY 12/02/23 12/02/23 History losartan 100 mg tablet 100 mg PO DAILY 12/02/23 12/02/23 History magnesium oxide 400 mg PO BID 12/02/23 12/02/23 History mirtazapine 30 mg disintegrating 30 mg PO BEDTIME 12/02/23 12/02/23 History tablet multivitamin with minerals 1 tab PO DAILY 12/02/23 12/02/23 History pantoprazole 40 mg tablet,delayed 40 mg PO DAILY 12/02/23 12/02/23 History release risperidone 0.5 mg tablet 0.5 mg PO BID PRN Agitation 12/02/23 12/02/23 History risperidone 2 mg tablet 2 mg PO BID 12/02/23 12/02/23 History simvastatin 20 mg tablet 20 mg PO BEDTIME 12/02/23 12/02/23 History thiamine HCl (vitamin B1) 100 mg 100 mg PO QAM 12/02/23 12/02/23 History tablet trazodone 50 mg tablet 50 mg PO BEDTIME PRN insomnia 12/02/23 12/02/23 History vancomycin 125 mg capsule See Rx Instructions .Route .COMPLEX 12/02/23 12/02/23 History (Vancocin) Allergies Allergies Allergy/AdvReac Type Severity Reaction Status Date / Time atropine Allergy Unknown Shortness Verified 12/02/23 23:30 of Breath enoxaparin [From Lovenox] Allergy Unknown Unknown Verified 12/02/23 23:30 penicillin V Allergy Unknown Unknown Verified 03/19/23 07:30 pseudoephedrine [Aprodine] Allergy Unknown Unknown Verified 03/19/23 07:30 triprolidine [Aprodine] Allergy Unknown Unknown Verified 03/19/23 07:30 Mental Status Exam Mental Status Exam Patient Appearance: Appropriate Patient Orientation: Person and Situation Level of Consciousness: Awake and Appropriate Patient Behavior: Guarded and Passive Mood Description: Withdrawn Affect Description: Constricted Patient Cognition Impaired: Yes Ability to Follow Directions: Good Speech Pattern: Clear Hallucinations: None Delusions: Not Present Thought Process: Distracted and Slowed Thinking Thought Content: positive for Leona and positive for Thought Blocking Judgement: Poor Assessment & Plan Assessment & Plan (1) Major depressive disorder with psychotic features: Status: Acute Code(s): F32.3 - Major depressive disorder, single episode, severe with psychotic features (2) Dark stools: Status: Acute Code(s): R19.5 - Other fecal abnormalities (3) Essential hypertension: Status: Acute Code(s): I10 - Essential (primary) hypertension (4) Type 2 diabetes mellitus with unspecified complications: Status: Acute Code(s): E11.8 - Type 2 diabetes mellitus with unspecified complications (5) Aortic valve sclerosis: Status: Acute Code(s): I35.8 - Other nonrheumatic aortic valve disorders (6) CKD (chronic kidney disease) stage 3, GFR 30-59 ml/min: Status: Acute Code(s): N18.30 - Chronic kidney disease, stage 3 unspecified (7) HTN (hypertension): Status: Acute Code(s): I10 - Essential (primary) hypertension (8) T2DM (type 2 diabetes mellitus): Status: Acute Code(s): E11.9 - Type 2 diabetes mellitus without complications Plan The patient is an elderly Citizen [place] female with a past history of major depressive disorder who was readmitted into the hospital for relapsed on her symptoms with severe anhedonia, lack of energy and passive suicidal ideation. Historically the patient has responded to ECT and the family and the patient is interested in this treatment. Plan 1. Gather more collateral information, we are going to try to contact her outpatient providers to get a past history of medication management. 2. Continue with medical workout. 3. ECT clearance. 4. Fifteen minutes checks. 5. Reassessment with results Patient educated on: diagnosis, ECT, therapeutic strategies and medical condition Reason for continued inpatient stay Substantial Risk for: inability to function, rapid decompensation and med/psych decompensation Statement Statement: I have reviewed the history and physical and performed a pertinent examination on my patient. No changes have occurred unless specified. If the History and Physical was not performed prior to admission, the Hospitalist's service will be consulted for completing the admission physical. Time Spent With Patient Time: Total time managing care of this patient today __45__ minutes.
--- NOTE | 2023-12-03 15:19 | PC.NURSE ---
at 1436 drained 150mls dark yellow urine. Fluids encouraged
--- NOTE | 2023-12-03 16:00 | HO.WOUND ---
Wound Consult: Initial 73yr old?female admitted to [facility] on 12/02/23 to the [facility] Unit - See progress notes and H&P for detailed history.? Wound consult placed for coccyx wound POA.? Patient agreeable to assessment and photo documentation. Coccyx Etiology: ??Stage 2 Pressure Injury Present on Admission Measurements: 1cm x 1cm x 0.1cm Wound Bed: red dry wound bed scattered areas of open tissue with moisture component Drainage / Odor: none noted Edges: ?mirrored edges Brittany wound: ?MASD - IAD No Induration, Fluctuance or Warmth noted Pain: denies pain Goals of Treatment: ? Triad and foam dressing Recommendations: 1. Turn and Reposition every 2 hours and as needed for patient comfort.? Use pillows or wedges to support off loading positions. 2. Off Load all bony prominences with use of pillows and heel boots if needed.? Apply Preventative foams where needed. ? 3. Monitor for incontinence and moisture control, use barrier creams when needed for prevention and treatment. 4. Provide adequate and supplemental nutrition.? 5. Order low air loss mattress. 6. When applicable maintain blood glucose levels per Providers order. 7. Coccyx - Off Load Pressure? - Cleanse with PH balance spray or wipes, pat dry. ?Apply thin layer of Triad to wound bed. Do not remove all of paste between applications as this may cause further skin damage.? Cover with foam dressing to aid in off loading and protection from friction. Change every other day and PRN. Re-consult wound care Nurse for wound deterioration or wound changes.
[2023-12-03 16:21] LABS: Appearance Urine Cloudy; Color Urine Yellow; Glucose Urine UA Negative (Negative); Leukocyte Esterase Urine Moderate (2+) (Negative); Nitrite Urine Negative (Negative); PH 5.5 (5.0-9.0); UMIC TRIGGER UACC YES; Urine Blood Moderate (2+) (Negative); Urine Ketones Negative (Negative); Urine Protein 30 (1+) mg/dL (Neg-Trace)
[2023-12-03 16:29] LABS: Bacteria Urine 4+ (None Seen); Granular Casts Urine Present; Hyaline Casts Urine >20 /LPF (0-2); RBC Urine >20 /HPF (0-2); UACC Culture Trigger YES; WBC Urine >50 /HPF (0-5)
[2023-12-03 16:35] LABS: Glucose, Whole Blood 217 mg/dL (60-115)
[2023-12-03 17:51] LABS: OBS Int Ctl Valid YES; OBS1 NEGATIVE (NEGATIVE)
[2023-12-03 18:42] LABS: CDiff Gene PCR POSITIVE (Negative)
[2023-12-03 19:23] VITALS: BP 141/65; PULSE 73; RESP 16; TEMP 36.4; O2SAT 94
[2023-12-03] MEDS: Divalproex Sodium 500 MG TABLET.DR PO (19:25)
[2023-12-03] MEDS: cefuroxime axetiL 250 MG TABLET PO (19:25)
[2023-12-03] MEDS: Atorvastatin Calcium 10 MG TABLET PO (19:25)
[2023-12-03] MEDS: Loratadine 10 MG TABLET PO (19:25)
[2023-12-03] MEDS: Mirtazapine 30 MG TABLET PO (19:25)
[2023-12-03 21:09] LABS: Glucose, Whole Blood 207 mg/dL (60-115)
[2023-12-03] MEDS: Insulin Glargine,Hum.rec.anlog 100 UNIT/ML 10 ML VIAL 6 UNIT SUBCUT (21:14)
[2023-12-03 22:58] LABS: CDIFF Internal ctrl Dots and bkg OK (V); CDiff Toxin Positive (Negative)
[2023-12-04] MEDS: Omeprazole 20 MG CAPSULE.DR PO (05:43)
[2023-12-04] MEDS: cefuroxime axetiL 250 MG TABLET PO ×2 (06:16→20:59)
[2023-12-04 06:35] LABS: Glucose, Whole Blood 176 mg/dL (60-115)
--- OUTSIDE RECORDS SUMMARY | 2023-12-04 07:56 | XMS_ITS | Continuity of Care Document ---
Author Organization [facility] Address [address] [place] [address]- Care Team Providers Care Online Marketer Name Role Phone Kim Gates MD Primary Care Physician Encounter [facility] Date(s): 01/10/22 - 02/09/22 [facility] [address] [place] [id number] Allergies, Adverse Reactions, Alerts Substance Reaction Severity Status penicillin Rash Active atropine SOB - Shortness of breath Ac tive Lovenox Active Immunizations Given and Recorded Vaccine Date Status Refusal Reason Pneumococcal Vaccine (oldterm) 01/10/16 Recorded Influenza Virus Vaccine (oldterm) 1 01/10/16 Recor ded influenza virus vaccine, inactivated 04/05/11 Give n pneumococcal 23-valent vaccine 07/24/10 Given Not Given Vaccine Date Status Refusal Reason influenza virus vaccine, inactivated 05/08/16 Not Given Patient Refuses 1Result Comment: [08/22/2016] Pt received flu vaccine this season from PCP Medications anastrozole 1 mg oral tablet 1 tablet, By Mouth, Daily before lunch, # 90 tablet, 3 Refills, [facility], 148.5, cm, 11/24/20 10:52:00 EDT, Height, 62.6, kg, 11/24/20 10:52:00 EDT, Dry Weight Start Date: 05/15/21 Status: Ordered Basaglar KwikPen 100 units/mL subcutaneous solution 30, Subcutaneous Infusion, Daily at bedtime, 0 Refills, Maintenance, 09/10/18 7:52:55 EDT Start Date: 09/10/18 Status: Ordered levothyroxine 0.1 mg oral tablet = 100 mcg, By Mouth, Daily, # 30 tablet, 0 Refills, Maintenance, 12/27/17 16:37:56 EDT, Tablet Start Date: 12/27/17 Status: Ordered Losartan By Mouth, Daily, 0 Refills, Maintenance, 02/23/20 11:02:00 EST Start Date: 02/23/20 Status: Ordered Mastectomy Bra See Instructions, # 3 each, Refills 0, Tot. Refills 0, Maintenance, History of breast cancer Left mastectomy Diagnosis: 50.912, 02/23/20 11:23:00 EST, Compound Start Date: 02/23/20 Status: Ordered Mastectomy Prosthesis See Instructions, # 1 each, Refills 0, Tot. Refills 0, Maintenance, History of breast cancer Left mastectomy Diagnosis: 50.912, 02/23/20 11:23:00 EST, Compound Start Date: 02/23/20 Status: Ordered mirtazapine 30 mg oral tablet 1 tablet = 30 mg, By Mouth, Daily at bedtime, 0 Refills, Maintenance, 04/19/20 15:15:00 EST, Partial fill upon patient request if the prescription is for a schedule II opioid drug. Start Date: 04/19/20 Status: Ordered mirtazapine 30 mg oral tablet 1 tablet = 30 mg, By Mouth, Daily at bedtime, 0 Refills, Maintenance, 04/21/20 13:43:00 EST, Partial fill upon patient request if the prescription is for a schedule II opioid drug. Start Date: 04/21/20 Status: Ordered NovoLOG 100 units/mL injectable solution 12, Subcutaneous Infusion, Daily before breakfast, 0 Refills, Maintenance, 03/31/20 13:58:00 EST, Partial fill upon patient request if the prescription is for a schedule II opioid drug. Start Date: 03/31/20 Status: Ordered NovoLOG 100 units/mL injectable solution = 18 units, Subcutaneous Infusion, Daily before lunch, 0 Refills, Maintenance, 03/31/20 13:59:00 EST, Partial fill upon patient request if the prescription is for a schedule II opioid drug. Start Date: 03/31/20 Status: Ordered NovoLOG 100 units/mL injectable solution 18, Subcutaneous Infusion, Daily before dinner, 0 Refills, Maintenance, 03/31/20 14:00:00 EST, Partial fill upon patient request if the prescription is for a schedule II opioid drug. Start Date: 03/31/20 Status: Ordered PROzac 20 mg oral capsule 20 mg, By Mouth, Daily, # 30 capsule, Refills 0, Tot. Refills 0, Maintenance, 12/27/17 16:34:19 EDT, Print Requisition Start Date: 12/27/17 Status: Ordered risperiDONE 1 mg oral tablet 1 mg, By Mouth, Daily at bedtime, # 30 tablet, Refills 0, Tot. Refills 0, Maintenance, 12/27/17 16:35:55 EDT, Print Requisition Start Date: 12/27/17 Status: Ordered simvastatin 80 mg oral tablet 1 tablet = 80 mg, By Mouth, Daily at bedtime, # 30 tablet, 0 Refills, Maintenance, 03/31/20 13:51:00 EST, Tablet, Partial fill upon patient request if the prescription is for a schedule II opioid drug. Start Date: 03/31/20 Status: Ordered Trulicity Pen 1.5 mg/0.5 mL subcutaneous solution 0.5 mL = 1.5 mg, Subcutaneous Injection, Every week, 0 Refills, Maintenance, 04/03/19 9:11:00 EST, Solution Start Date: 04/03/19 Status: Ordered Vitamin D3 By Mouth, Daily, 0 Refills, Maintenance, 02/23/20 11:03:00 EST Start Date: 02/23/20 Status: Ordered Problem List Condition Confirmation Course Effective Dates Status H ealth Status Informant Delirium, acute Confirmed 07/27/10 Active Depression with anxiety (dysthymic) Confirmed 07/27/10 Active Diverticulitis Confirmed Active Drug-Induced Delirium Confirmed 07/27/10 Active Estrogen Receptor Positive Status [ER+] Confirmed 03/30/10 Active Major Depressive Disorder, Recurrent Episode, Severe Degree, Specified as with Psychotic Behavior Confirmed 08/14/10 Active Major Depressive Disorder, Recurrent Episode, Severe Degree, Specified as with Psychotic Behavior Confirmed 04/10/11 Active Malignant Neoplasm of Left Breast, pT1c, pNX, IDC, ER/MS positive 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. Confirmed 03/30/10 Active Mastodynia, left chest wall from scarring Confirmed 10/31/10 Active Postmastectomy Lymphedema Syndrome, left arm Confirmed 10/31/10 Active Recurrent major depressive episodes, moderate Confirmed Active Social History Social History Type Response Smoking Status Never smoker entered on: 06/04/14 Sex Patient Care team information Personnel Name: Kim Gates MD Address: Address: [address] [place] [address]
--- OUTSIDE RECORDS SUMMARY | 2023-12-04 07:56 | XMS_ITS | Continuity of Care Document ---
Author Organization [facility] Address [address] [place] [address]- Care Team Providers Care Product Marketing Specialist Name Role Phone Kim Gates MD Primary Care Physician Encounter [facility] [place] Date(s): 01/03/23 - 02/02/23 [facility] [address] [place] [id number] Attending Physician: Derek Barnett Admitting Physician: AdmDerek avalos Referring Physician: Admtr, Derek Allergies, Adverse Reactions, Alerts Substance Reaction Severity Status penicillin Rash Active atropine SOB - Shortness of breath Ac tive Lovenox Active Immunizations Given and Recorded Vaccine Date Status Refusal Reason Pneumococcal Vaccine (oldterm) 01/10/16 Recorded Influenza Virus Vaccine (oldterm) 1 01/10/16 Recor ded influenza virus vaccine, inactivated 04/05/11 Give n pneumococcal 23-valent vaccine 07/24/10 Given 1Result Comment: [08/22/2016] Pt received flu vaccine this season from PCP Medications anastrozole 1 mg oral tablet 1 tablet, By Mouth, Daily before lunch, # 90 tablet, 3 Refills, 05/15/22 16:31:00 EST, [facility], 148.5, cm, 01/10/22 9:59:00 EDT, Height, 59.7, kg, 01/10/22 9:59:00 EDT, Dry Weight Start Date: 05/15/22 Status: Ordered atorvastatin 40 mg oral tablet 1 tablet = 40 mg, By Mouth, Daily, 0 Refills, Maintenance, 01/09/23 10:26:00 EDT, Partial fill uponpatient request if the prescription is for a schedule II opioid drug. Start Date: 01/09/23 Status: Ordered Basaglar KwikPen 100 units/mL subcutaneous solution 30, Subcutaneous Infusion, Daily at bedtime, 0 Refills, Maintenance, 09/10/18 7:52:55 EDT Start Date: 09/10/18 Status: Ordered Farxiga 10 mg oral tablet 1 tablet = 10 mg, By Mouth, Daily, 0 Refills, Maintenance, 01/09/23 10:26:00 EDT, Partial fill uponpatient request if the prescription is for a schedule II opioid drug. Start Date: 01/09/23 Status: Ordered levothyroxine 0.1 mg oral tablet = 100 mcg, By Mouth, Daily, # 30 tablet, 0 Refills, Maintenance, 12/27/17 16:37:56 EDT, Tablet Start Date: 12/27/17 Status: Ordered Losartan By Mouth, Daily, 0 Refills, Maintenance, 02/23/20 11:02:00 EST Start Date: 02/23/20 Status: Ordered Mastectomy Bra See Instructions, # 3 each, Refills 1, Tot. Refills 1, Maintenance, History of left breast cancer Left mastectomy Diagnosis: C50.912, 02/13/22 13:07:00 EDT, Supply Start Date: 02/13/22 Status: Ordered Mastectomy Bra See Instructions, # 3 each, Refills 0, Tot. Refills 0, Maintenance, History of breast cancer Left mastectomy Diagnosis: 50.912, 02/23/20 11:23:00 EST, Compound Start Date: 02/23/20 Status: Ordered Mastectomy Prosthesis See Instructions, # 1 each, Refills 0, Tot. Refills 0, Maintenance, History of left breast cancer Left mastectomy Diagnosis: C50.912, 02/13/22 13:07:00 EDT, Supply Start Date: 02/13/22 Status: Ordered Mastectomy Prosthesis See Instructions, # [...] opioid drug. Start Date: 03/31/20 Status: Ordered omeprazole 20 mg oral enteric coated capsule 1 capsule = 20 mg, By Mouth, Daily, 0 Refills, Maintenance, 01/09/23 10:27:00 EDT, Partial fill upon patient request if the prescription is for a schedule II opioid drug. Start Date: 01/09/23 Status: Ordered PROzac 20 mg oral capsule [...] Neoplasm of Left Breast, pT1c, pNX, IDC, ER/SD positive 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. Confirmed 03/30/10 Active Mastodynia, left chest wall from scarring Confirmed 10/31/10 Active Postmastectomy Lymphedema Syndrome, left arm Confirmed 10/31/10 Active Recurrent major depressive episodes, moderate Confirmed Active Social History Social History Type Response Smoking Status Never smoker entered on: 06/04/14 Sex Note * Sindi Moe: PERFORM, SIGN, VERIFY Event Display: Patient Education/Instruction Authored Date: [id number] [facility] Heme/Onc Adult Clinical Summary Person Information Name OPAL QUIROZ Age 60 Years 1950 12:00 AM PCP Francois Pang MD PCP Reason for Visit: Allergy Info: atropine; penicillin Vital Signs Height Weight BMI Blood Pressure / Temperature Pulse Rate Respiratory Rate 02 Sat Mode of Delivery / Medication Information Anastrozole (Arimidex 1 mg oral tablet) 1 tablet, Oral, Tomorrow, 90 tablet, Refills: 3 GlipiZIDE (glipizide 10 mg oral tablet) 1 tablet, Oral, 2 times a day before breakfast and dinner, 60 tablet, Refills: 0 Haloperidol (haloperidol 1 mg oral tablet) 1 tablet, Oral, twice a day, 60 tablet, Refills: 0 Levothyroxine (levothyroxine 75 mcg (0.075 mg) oral tablet) 1 tablet, Oral, Tomorrow, 30 tablet, Refills: 0 Metformin (metformin 500 mg oral tablet) 2 each, Oral, twice a day, 120 tablet, Refills: 0 Venlafaxine (Venlafaxine 150 mg Oral Tablet, Extended Release) 1 tablet, Oral, Tomorrow, 30 tablet,Refills: 0 Problem List Date Problem If the following labs have been performed in the last year, the most recent result is displayed below. Diagnostic Results Lab Result Value Date Lead Hemoglobin A1C 8.1 09/05/10 LDL HDL Triglycerides Total Cholesterol Disclaimer: The information provided is of a general nature and is intended to be used in conjunction with the recommendations and advice of your health care practitioner. Every effort has been made to ensure that the information provided is accurate and complete at the time it is provided to you however, as your needs change, or, as new information becomes available, different or additional instructions may be required. If you have questions, please consult with your primary care provider or pharmacist, as appropriate. This information is not intended to serve as substitution for assessment and evaluation by a qualified health care provider. If you do not have a primary care provider, you may find a [facility] provider by calling [facility] [employer] Link at [phone]. Patient Education Information Follow-up Details: With: Address: When: Haley Canada MD [address] [place] [address] Professional (1) 03/04/2012 1:30:00 Comments: 1 yr f/u--inter bkd w/ Katerin With: Address: When: Nhung Randle NP [facility] [place] [address] Business (1) 09/04/2011 1:30:00 Comments: 6 month f/u inter bkd w/ Katerin Patient Education Material: Patient Care team information Care Team Personnel Name: Taylor Newell Position: [facility] [place] RN Member Role: Primary Care Nurse Name: Armando Justice RN Position: [facility] ED RN W/OE and Tasks Member Role: Primary Care Nurse Name: Sarah Bales RN Position: [facility] RN Member Role: Primary Care Nurse Name: Naty Holt RN Position: [facility] RN Member Role: Primary Care Nurse Name: Francesca Day RN Position: [facility] AMB Nurse Member Role: Primary Care Nurse Name: Irene Cotto RN Position: [facility] RN Member Role: Primary Care Nurse Name: Mando Esparza RN Position: [facility] RN Member Role: Primary Care Nurse Name: Williams Talley RN Position: [facility] RN Member Role: Primary Care Nurse Name: Kylie Cheng RN Position: [facility] RN Member Role: Primary Care Nurse Name: Andrew Leach RN Position: [facility] SN RN Member Role: Primary Care Nurse Name: lEaine Powell RN Position: [facility] RN Member Role: Primary Care Nurse Name: Kim Gates MD Position: [facility] Outreach Member Role: PCP Address: Address: [address] [place] [id number] Name: Janice Norwood RN Position: [facility] RN Member Role: Primary Care Nurse Name: Rakesh Barriga RN Position: [facility] RN Member Role: Primary Care Nurse Name: Marla Bell RN Position: [facility] [employer] Member Role: Primary Care Nurse Name: Allyson Bales RN Position: [facility] RN Member Role: Primary Care Nurse Name: Charo Romano RN Position: [facility] SN RN Member Role: Primary Care Nurse Name: Patito Levin RN Position: [facility] RN Member Role: Primary Care Nurse Name: Elaine Hannon RN Position: [facility] RN Member Role: Primary Care Nurse Name: Kathya Pablo RN Position: [facility] [employer] Member Role: Primary Care Nurse Care Team Related Persons Name: CLAUDIA PATRICK Address: [address] [address]
--- OUTSIDE RECORDS SUMMARY | 2023-12-04 07:57 | XMS_ITS | Continuity of Care Document ---
Author Organization [facility] Address [address] [facility], [address] d Floor, [address] [place] [id number] Care Team Providers Care Textile Screen Maker Name Role Phone Kim Gates MD Primary Care Physician [phone] Encounter [facility] Date(s): 06/27/23 - 07/27/23 [facility] [address], [address] [place] [id number] Attending Physician: Derek Barnett Admitting Physician: Derek Barnett Referring Physician: AdmDerek avalos Referring Physician: Estrella Lynn Allergies, Adverse Reactions, Alerts Substance Reaction Severity Status penicillin Rash Active atropine SOB - Shortness of breath Ac tive Lovenox Active Immunizations Given and Recorded Vaccine Date Status Refusal Reason zoster vaccine, inactivated 02/19/23 Recorded influenza virus vaccine, inactivated 01/25/23 Brayden rded influenza virus vaccine, inactivated 01/19/21 Brayden rded influenza virus vaccine, inactivated 01/27/20 Brayden rded influenza virus vaccine, inactivated 01/28/19 Brayden rded influenza virus vaccine, inactivated 01/23/18 Brayden rded influenza virus vaccine, inactivated 01/25/17 Brayden rded influenza virus vaccine, inactivated 02/08/15 Brayden rded influenza virus vaccine, inactivated 01/11/14 Brayden rded influenza virus vaccine, inactivated 04/05/11 Give n SARS-CoV-2 (COVID-19) mRNA-1273 vaccine 03/08/21 R ecorded SARS-CoV-2 (COVID-19) mRNA-1273 vaccine 07/20/20 R ecorded SARS-CoV-2 (COVID-19) mRNA-1273 vaccine 06/22/20 R ecorded Zoster Vaccine Live 10/10/18 Recorded pneumococcal 23-valent vaccine 01/25/17 Recorded pneumococcal 23-valent vaccine 07/24/10 Given Pneumococcal Vaccine (oldterm) 01/10/16 Recorded Influenza Virus Vaccine (oldterm) 1 01/10/16 Recor ded pneumococcal 13-valent vaccine 01/10/16 Recorded tetanus/diphtheria/pertussis, acel(Tdap) 12/02/15 Recorded 1Result Comment: [08/22/2016] Pt received flu vaccine this season from PCP Medications acetaminophen 325 mg oral tablet 650 mg, By Mouth, Every 6 hours, PRN, /Headache, Refills 0, Maintenance, Pain , Mild, 05/03/23 16:44:00 EST, Partial fill upon patient request if the prescription is for a schedule II opioid drug. Start Date: 05/03/23 Status: Ordered albuterol CFC free 90 mcg/inh inhalation aerosol 180 mcg, 2, puffs, Inhalation, Every 4 hours, PRN, # 6.7 Gm, Refills 2, Tot. Refills 2, Maintenance, 07/26/23 10:51:00 EDT, Inhaler, Route to Pharmacy Electronically, [id number], [facility], 150, cm, 07/24/23 7:21:00 EDT, [facility] Start Date: 07/26/23 Status: Ordered amLODIPine 5 mg oral tablet 5 mg, By Mouth, Daily, hold if systolic blood pressure is below 120 mmHg, # 90 tablet, Refills 0, Tot. Refills 0, Maintenance, 07/26/23 10:51:00 EDT, Route to Pharmacy Electronically, [facility], Partial fill upon patient request... Start Date: 07/26/23 Status: Ordered anastrozole 1 mg oral tablet = 1 mg, By Mouth, Daily in AM, 0 Refills, Maintenance, 05/03/23 16:41:00 EST, Tablet, Partial fill upon patient request if the prescription is for a schedule II opioid drug. Start Date: 05/03/23 Status: Ordered aspirin 81 mg oral tablet, chewable 81 mg, By Mouth, Daily, # 90 tablet, Refills 0, Tot. Refills 0, Maintenance, 07/26/23 10:51:00 EDT,Route to Pharmacy Electronically, [facility], Partial fill upon patient request if the prescription is for a schedule II opioid dr... Start Date: 07/26/23 Status: Ordered cetirizine 5 mg oral tablet = 5 mg, By Mouth, Daily at bedtime, 0 Refills, Maintenance, 05/03/23 16:43:00 EST, Tablet, Partial fill upon patient request if the prescription is for a schedule II opioid drug. Start Date: 05/03/23 Status: Ordered divalproex sodium 500 mg oral enteric coated tablet = 500 mg, By Mouth, Daily at bedtime, # 90 tablet, 0 Refills, Maintenance, 07/26/23 10:51:00 EDT, Tablet, [facility], Partial fill upon patient request if the prescription is fora schedule II opioid drug., 150, cm, 07/24/23 7:21:... Start Date: 07/26/23 Status: Ordered FLUoxetine 20 mg oral capsule 40 mg, By Mouth, Daily, # 90 tablet, Refills 0, Tot. Refills 0, Maintenance, 07/26/23 10:51:00 EDT,Route to Pharmacy Electronically, [facility], Partial fill upon patient request if the prescription is for a schedule II opioid dr... Start Date: 07/26/23 Status: Ordered Glucagon Inj = 1 mg, Intramuscular, Once, PRN Other, 0 Refills, Maintenance, 05/03/23 16:44:00 EST, Injection, Partial fill upon patient request if the prescription is for a schedule II opioid drug. Start Date: 05/03/23 Status: Ordered Glucose Gel = 15 Gm, By Mouth, Every 20 minutes, PRN Blood Glucose, 50 to 70 and patient ALERT, 0 Refills, Maintenance, 05/03/23 16:44:00 EST, Gel, Partial fill upon patient request if the prescription is for a schedule II opioid drug. Start Date: 05/03/23 Status: Ordered Keppra 500 mg oral tablet = 500 mg, By Mouth, 2 times a day, # 180 tablet, 0 Refills, Maintenance, 07/26/23 10:51:00 EDT, Tablet, [facility], Partial fill upon patient request if the prescription is for aschedule II opioid drug., 150, cm, 07/24/23 7:21:00... Start Date: 07/26/23 Status: Ordered levothyroxine 0.1 mg oral tablet = 100 mcg, By Mouth, Daily in AM, Take on empty stomach and 1 hour before other pills or breakfast with plenty of water., # 90 tablet, 0 Refills, Maintenance, 07/26/23 10:51:00 EDT, Tablet, [facility], Partial fill upon patient re... Start Date: 07/26/23 Status: Ordered losartan 100 mg oral tablet 1 tablet = 100 mg, By Mouth, Daily, hold if systolic blood pressure is below 120 mmHg, # 90 tablet,0 Refills, Maintenance, 07/26/23 10:51:00 EDT, Tablet, [facility], Partial fill upon patient request if the prescription is for a... Start Date: 07/26/23 Status: Ordered mirtazapine 30 mg oral tablet, disintegrating 1 tablet = 30 mg, By Mouth, Daily at bedtime, # 90 tablet, 0 Refills, Maintenance, 07/26/23 10:51:00 EDT, DIS Tablet, [facility], Partial fill upon patient request if the prescription is for a schedule II opioid drug., 150, cm, 04... Start Date: 07/26/23 Status: Ordered multivitamin with minerals Multiple Vitamins with Minerals oral tablet 1 tablet, By Mouth, Daily, # 90 tablet, 0 Refills, Maintenance, 07/26/23 10:51:00 EDT, Tablet, [facility], Partial fill upon patient request if the prescription is for a scheduleII opioid drug., 1 tablet By Mouth Daily, 150, cm,... Start Date: 07/26/23 Status: Ordered risperiDONE 1 mg oral tablet 1 mg, By Mouth, Daily at bedtime, # 90 tablet, Refills 0, Tot. Refills 0, Maintenance, 07/26/23 10:51:00 EDT, Route to Pharmacy Electronically, [facility], Partial fill upon patient request if the prescription is for a schedule II... Start Date: 07/26/23 Status: Ordered simvastatin 20 mg oral tablet 20 mg, By Mouth, Daily at bedtime, # 90 tablet, Refills 0, Tot. Refills 0, Maintenance, 07/26/23 10:51:00 EDT, Route to Pharmacy Electronically, [facility], Partial fill upon patient request if the prescription is for a schedule I... Start Date: 07/26/23 Status: Ordered thiamine 100 mg oral tablet 100 mg, By Mouth, Daily, # 90 tablet, Refills 0, Tot. Refills 0, Maintenance, 07/26/23 10:51:00 EDT, Route to Pharmacy Electronically, [facility], Partial fill upon patient request if the prescription is for a schedule II opioid d... Start Date: 07/26/23 Status: Ordered traZODone 50 mg oral tablet 50 mg, By Mouth, Daily at bedtime, PRN, # 30 tablet, Refills 0, Tot. Refills 0, Maintenance, Insomnia, 07/26/23 10:51:00 EDT, Route to Pharmacy Electronically, [facility], Partial fill upon patient request if the prescription is f... Start Date: 07/26/23 Status: Ordered vancomycin 125 mg oral capsule See Instructions, Take 1 capsule 4 times a day for 7 days, then 2 times a day for 7 days, then oncea day for 7 days , then every other day for 28 days then stop., # 63 capsule, 0 Refills, Maintenance, 07/26/23 10:51:00 EDT, Capsule, [facility]... Start Date: 07/26/23 Status: Ordered Problem List Condition Confirmation Course Effective Dates Status H ealth Status Informant Benign essential hypertension Confirmed Active Cholelithiasis Confirmed Active Chronic constipation Confirmed Active Delirium, acute Confirmed 07/27/10 Active Depression with anxiety (dysthymic) Confirmed 07/27/10 Active Diverticulitis Confirmed Active Drug-Induced Delirium Confirmed 07/27/10 Active Environmental allergies Confirmed Active Transaminitis Confirmed Active Estrogen Receptor Positive Status [ER+] Confirmed 03/30/10 Active GERD without esophagitis Confirmed Active History of total mastectomy of left breast Confirmed Active Major Depressive Disorder, Recurrent Episode, Severe Degree, Specified as with Psychotic Behavior Confirmed 08/14/10 Active Major Depressive Disorder, Recurrent Episode, Severe Degree, Specified as with Psychotic Behavior Confirmed 04/10/11 Active Malignant Neoplasm of Left Breast, pT1c, pNX, IDC, ER/NC positive 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. Confirmed 03/30/10 Active Mastodynia, left chest wall from scarring Confirmed 10/31/10 Active Mild intermittent asthma Confirmed Active Mixed hyperlipidemia Confirmed Active Type 2 diabetes mellitus with diabetic neuropathy Confirmed Active RICHARDS (nonalcoholic steatohepatitis) Confirmed Active Postmastectomy Lymphedema Syndrome, left arm Confirmed 10/31/10 Active Post-surgical hypothyroidism Confirmed Active Recurrent falls Confirmed Active Recurrent major depressive episodes, moderate Confirmed Active Seizure disorder Confirmed Active Vitamin D deficiency Confirmed Active Social History Social History Type Response Smoking Status Never (less than 100 in lifetime) entered on: 04/18/23 Sex Hospital Progress note * Efraín Cordero MD: PERFORM, MODIFY, SIGN, VERIFY Event Display: Progress Note Hospital Authored Date: [id number] Patient: OPAL QUIROZ Age: 67 years Sex: Female : 1950 Associated Diagnoses: None Author: Efraín Cordero MD Staff report: 24hrs PT ALERT AND ORIENTED. DENIES PAIN. PLEASANT, CALM, COOPERATIVE AND EASILY ENGAGED. PT TO BE DISCHARGE HOME WITH OUTPATIENT ECT AND SET UP WITH A DAY PROGRAM. PT ATTENDING GROUP AND EATING WELL AT MEALS. DISCHARGE HOME WITH ALL BELONGINGS, SCRIPTS AND INSTRUCTIONS. PT'S CLAUDIA WAS ABLE TO TEACH BACK INSULING SLIDING SCALE ALONG WITH SCHEDULED INSULING AND TIMING OF PO MEDS. Review of Systems No complaints Medication Side Effects None. Allergy Profile atropine (SOB - Shortness of breath) Lovenox penicillin (Rash) Admission Medications: Aspirin: 81 mg, By Mouth, Daily Fluoxetine: 20 mg, By Mouth, Daily Insulin Glargine: 20 units, Subcutaneous Injection, Daily at bedtime Insulin Lispro: 4 units, Subcutaneous Injection, 3 times a day before meals Insulin Lispro: 2-10 units, Subcutaneous Injection, 3 times a day before meals, << Sliding Scale Comments >>Call if less than [id number] - 199 2 units 200 - 249 4 units 250 - 299 6 units 300 - 349 8 units 350 - 399 10 units Call if greater than 400<< Sliding Scale Comments >> Lamotrigine: 50 mg = 2 tablet, By Mouth, 2 times a day, Follow titration schedule discussed with patient Levothyroxine: 100 mcg, By Mouth, Daily Metformin: 1,000 mg = 2 each, By Mouth, 2 times a day Milk of Magnesia: 30 mL, By Mouth, Daily at bedtime, PRN (Constipation) Mirtazapine: 37.5 mg, By Mouth, Daily at bedtime Phenylephrine Topical: 1 applicator, Rectally, 2 times a day, PRN (Pain , Mild) Polyethylene Glycol 3350: 17 Gm = 1 pack/packet, By Mouth, Daily Risperidone: 1 mg, By Mouth, Daily at bedtime Simvastatin: 40 mg, By Mouth, Daily at bedtime sitagliptin: 100 mg, By Mouth, Daily Trazodone: 25 mg, By Mouth, 2 times a day, may also take one at bedtime prn insomnia Trazodone: 25 mg, By Mouth, Daily at bedtime, PRN (Insomnia) Vital signs 24hrs: No qualifying data available. Mental Status Examination Appearance: well-groomed. Attitude: cooperative. Motor activity: calm. Mood: stable Affect: appropriate. Speech: normal Perception: No responding to Internal stimuli. Orientation: intact. Memory: intact. Judgment: fair. Insight: impairment. Thought process: goal-directed. Thought content: No delusions elicited. Compliance: good. Suicidality/self-destructive behavior: none. Homicidality/violence: none. Impression and Plan Reason for continued hospitalization: Pt in need of inpatient psychiatric hospitalization for clinical monitoring, safety and treatment. Psyeducation provided to Pt/involved constitution party: yes, Pt/involved constitution party awared of the risk, benefit and alternative of treatment. Medication changes: No changes in psychiatric medications today. Discharge planning in progress. Disposition: Time with patient 10 mins Time coordinating care 10 mins. Patient Care team information Care Team Personnel Name: Taylor eNwell Position: [facility] Onco RN Member Role: Primary Care Nurse Name: Naty Pierson RN Position: [facility] RN Member Role: Primary Care Nurse Name: Kirsten Fernandes RN Position: [facility] RN Supv Member Role: Primary Care Nurse Name: eMlinda Morelos RN Position: [facility] RN Member Role: Primary Care Nurse Name: Sophia Pereira RN Position: [facility] RN Member Role: Primary Care Nurse Name: Rhonda Sapp RN Position: [facility] RN Member Role: Primary Care Nurse Name: Tammy Prescott RN Position: S RN Member Role: Primary Care Nurse Name: Armando Justice RN Position: [facility] ED RN W/OE and Tasks Member Role: Primary Care Nurse Name: Arabella He RN Position: [facility] RN Member Role: Primary Care Nurse Name: Yoli Bryant RN Position: [facility] RN Member Role: Primary Care Nurse Name: Sarah Bales RN Position: [facility] RN Member Role: Primary Care Nurse Name: Naty Holt RN Position: [facility] RN Member Role: Primary Care Nurse Name: Kim Gonzalez Position: [facility] RN Member Role: Primary Care Nurse Name: Allyson Rodriguez RN Position: [facility] RN Member Role: Primary Care Nurse Name: Avril Wright RN Position: [facility] RN Member Role: Primary Care Nurse Name: Linda Manzano RN Position: [facility] RN Member Role: Primary Care Nurse Name: Chris Lobo RN Position: [facility] RN Member Role: Primary Care Nurse Name: Emilee Goldstein RN Position: [facility] RN Member Role: Primary Care Nurse Name: Francesca Day RN Position: [facility] AMB Nurse Member Role: Primary Care Nurse Name: Radha Zepeda RN Position: [facility] RN Member Role: Primary Care Nurse Name: Eliceo Ortiz RN Position: [facility] RN Member Role: Primary Care Nurse Name: Gwendolyn Petersen RN Position: [facility] RN Member Role: Primary Care Nurse Name: Mando Esparza RN Position: [facility] RN Member Role: Primary Care Nurse Name: Alida Cam Position: [facility] RN Member Role: Primary Care Nurse Name: Angella Lehman RN Position: [facility] RN Member Role: Primary Care Nurse Name: Alexandra Huff RN Position: [facility] RN Member Role: Primary Care Nurse Name: Williams Talley RN Position: [facility] RN Member Role: Primary Care Nurse Name: Gina Teran RN Position: [facility] RN Member Role: Primary Care Nurse Name: Kylie Cheng RN Position: [facility] RN Member Role: Primary Care Nurse Name: Andrew Leach RN Position: [facility] SN RN Member Role: Primary Care Nurse Name: Kirsten Suarez RN Position: [facility] RN Member Role: Primary Care Nurse Name: Naty Collazo RN Position: [facility] RN Member Role: Primary Care Nurse Name: Keira Canada RN Position: [facility] RN Member Role: Primary Care Nurse Name: Karley Morgan Position: [facility] RN Member Role: Primary Care Nurse Name: Haley Alexander Position: [facility] RN Member Role: Primary Care Nurse Name: Elaine Powell RN Position: [facility] RN Member Role: Primary Care Nurse Name: Osmel Torres RN Position: [facility] RN Member Role: Primary Care Nurse Name: Kim Gates MD Position: [facility] Outreach Member Role: PCP Address: Address: [address] [place] [id number]- Name: Janice Norwood RN Position: [facility] RN Member Role: Primary Care Nurse Name: Chucky Chandler RN Position: [facility] RN Member Role: Primary Care Nurse Name: Rakesh Barriga RN Position: [facility] RN Member Role: Primary Care Nurse Name: Gwendolyn Renteria LPN Position: [facility] RN Member Role: Primary Care Nurse Name: Marla Bell RN Position: [facility] Thiokol Operator Member Role: Primary Care Nurse Name: Danielle Iraheta RN Position: [facility] RN Member Role: Primary Care Nurse Name: Eddy Castle RN Position: [facility] ED RN W/OE and Tasks Member Role: Primary Care Nurse Name: Laura Loving RN Position: [facility] RN Member Role: Primary Care Nurse Name: Kavya Gaytan RN Position: [facility] RN Member Role: Primary Care Nurse Name: Allyson Bales RN Position: [facility] RN Member Role: Primary Care Nurse Name: Bryce Javier RN Position: [facility] RN Member Role: Primary Care Nurse Name: Charo Romano RN Position: [facility] RN Member Role: Primary Care Nurse Name: Patito Levin RN Position: [facility] RN Member Role: Primary Care Nurse Name: Elaine Hannon RN Position: [facility] RN Member Role: Primary Care Nurse Name: Sierra Mcqueen RN Position: [facility] RN Member Role: Primary Care Nurse Name: Kathya Palbo RN Position: [facility] Thiokol Operator Member Role: Primary Care Nurse Care Team Related Persons Name: CELINACLAUDIA Address: [address] [place] [address]
--- OUTSIDE RECORDS SUMMARY | 2023-12-04 07:57 | XMS_ITS | Continuity of Care Document ---
Author Organization [facility] ter Address [address] [place] [id number]- Care Team Providers Care Vending Machine Assembler Name Role Phone Kim Gates MD Primary Care Physician Encounter [facility] Date(s): 05/03/23 - 08/01/[address] [address] Discharge Disposition: A-Transfer SNF Attending Physician: Ge Anguiano MD Admitting Physician: Melvin Evans MD Referring Physician: Not on Staff, Referring MD Allergies, Adverse Reactions, Alerts Substance Reaction Severity [...] 10:51:00 EDT, Inhaler, Route to Pharmacy Electronically, NCPDP_[id number], [facility], 150, cm, 07/24/23 7:21:00 EDT, He... Start Date: 07/26/23 Status: Ordered amLODIPine 5 mg oral tablet 5 mg, Tablet, By Mouth, 08/01/23 9:00:00 EDT Start Date: 08/01/23 Stop Date: 08/01/23 Status: Completed amLODIPine 5 mg oral tablet 5 mg, By Mouth, Daily, hold if systolic blood pressure is below 120 mmHg, # 90 tablet, Refills 0, Tot. Refills 0, Maintenance, 07/26/23 10:51:00 EDT, Route to Pharmacy Electronically, [facility], Partial fill upon patient request... [...] Maintenance, 07/26/23 10:51:00 EDT,Route to Pharmacy Electronically, [facility], Partial fill upon patient request if [...] 0 Refills, Maintenance, 07/26/23 10:51:00 EDT, Tablet, [facility], Partial fill upon patient request if the prescription is fora schedule II opioid drug., 150, cm, 07/24/23 7:21:... Start Date: 07/26/23 Status: Ordered ferrous sulfate 325 mg oral enteric coated tablet 325 mg, By Mouth, Daily, Refills 0, Maintenance, 08/01/23 11:31:00 EDT, Partial fill upon patient request if the prescription is for a schedule II opioid drug. Start Date: 08/01/23 Status: Ordered FLUoxetine 20 mg oral capsule 40 mg, By Mouth, Daily, # 90 tablet, Refills 0, Tot. Refills 0, Maintenance, 07/26/23 10:51:00 EDT,Route to Pharmacy Electronically, [facility], Partial fill upon patient request if the prescription is for a schedule II opioid dr... Start Date: 07/26/23 Status: Ordered Glucose Gel = 15 Gm, By Mouth, Every 20 minutes, PRN Blood Glucose, 50 to 70 and patient ALERT, 0 Refills, Maintenance, 05/03/23 16:44:00 EST, Gel, Partial fill upon patient request if the prescription is for a schedule II opioid drug. Start Date: 05/03/23 Status: Ordered insulin lispro 100 units/mL injectable solution 2-10 units, Subcutaneous Injection, 3 times a day before meals, << Sliding Scale Comments >> 150 - 199 2 units Call if less than 70 200 - 249 4 units 250 - 299 6 units 300 - 349 8 units 350 - 399 10 units Call if greater than 400 <<... Start Date: 08/01/23 Status: Ordered Keppra 500 mg oral tablet = 500 mg, By Mouth, 2 times a day, # 180 tablet, 0 Refills, Maintenance, 07/26/23 10:51:00 EDT, Tablet, [facility], Partial fill upon patient request if the prescription is for aschedule II opioid drug., 150, cm, 07/24/23 7:21:00... Start Date: 07/26/23 Status: Ordered Lantus Inj 0.06 mL = 6 units, Subcutaneous Injection, Daily at bedtime, 0 Refills, Maintenance, 08/01/23 11:31:00 EDT, Injection, Partial fill upon patient request if the prescription is for a schedule II opioid drug. Start Date: 08/01/23 Status: Ordered Lasix 20 mg oral tablet 20 mg, By Mouth, Daily, Refills 0, Maintenance, 08/01/23 11:31:00 EDT, Partial fill upon patient request if the prescription is for a schedule II opioid drug. Start Date: 08/01/23 Status: Ordered levothyroxine 0.1 mg oral tablet = 100 mcg, By Mouth, Daily in AM, Take on empty stomach and 1 hour before other pills or breakfast with plenty of water., # 90 tablet, 0 Refills, Maintenance, 07/26/23 10:51:00 EDT, Tablet, [facility], Partial fill upon patient re... Start Date: 07/26/23 Status: Ordered losartan 100 mg oral tablet 1 tablet = 100 mg, By Mouth, Daily, hold if systolic blood pressure is below 120 mmHg, # 90 tablet,0 Refills, Maintenance, 07/26/23 10:51:00 EDT, Tablet, [facility], Partial fill upon patient request if the prescription is for a... Start Date: 07/26/23 Status: Ordered losartan 50 mg oral tablet 100 mg, Tablet, By Mouth, 08/01/23 9:00:00 EDT Start Date: 08/01/23 Stop Date: 08/01/23 Status: Completed mirtazapine 30 mg oral tablet, disintegrating 1 tablet = 30 mg, By Mouth, Daily at bedtime, # 90 tablet, 0 Refills, Maintenance, 07/26/23 10:51:00 EDT, DIS Tablet, [facility], Partial fill upon patient request if the prescription is for a schedule II opioid drug., 150, cm, 04... Start Date: 07/26/23 Status: Ordered multivitamin with minerals Multiple Vitamins with Minerals oral tablet 1 tablet, By Mouth, Daily, # 90 tablet, 0 Refills, Maintenance, 07/26/23 10:51:00 EDT, Tablet, [facility], Partial fill upon patient request if the prescription is for a scheduleII opioid drug., 1 tablet By Mouth Daily, 150, cm,... Start Date: 07/26/23 Status: Ordered risperiDONE 1 mg oral tablet 2 mg, By Mouth, 2 times a day, Refills 0, Maintenance, 08/01/23 11:29:00 EDT, Partial fill upon patient request if the prescription is for a schedule II opioid drug. Start Date: 08/01/23 Status: Ordered simvastatin 20 mg oral tablet 20 mg, By Mouth, Daily at bedtime, # 90 tablet, Refills 0, Tot. Refills 0, Maintenance, 07/26/23 10:51:00 EDT, Route to Pharmacy Electronically, [facility], Partial fill upon patient request if the prescription is for a schedule I... Start Date: 07/26/23 Status: Ordered thiamine 100 mg oral tablet 100 mg, By Mouth, Daily, # 90 tablet, Refills 0, Tot. Refills 0, Maintenance, 07/26/23 10:51:00 EDT, Route to Pharmacy Electronically, [facility], Partial fill upon patient request if the prescription is for a schedule II opioid d... Start Date: 07/26/23 Status: Ordered traZODone 50 mg oral tablet 50 mg, By Mouth, Daily at bedtime, PRN, # 30 tablet, Refills 0, Tot. Refills 0, Maintenance, Insomnia, 07/26/23 10:51:00 EDT, Route to Pharmacy Electronically, [facility], Partial fill upon patient request if the prescription is f... Start Date: 07/26/23 Status: Ordered vancomycin 125 mg oral capsule See Instructions, 125 mg By Mouth Every 6 hours for 3 days then 125 mg bid for 1 week, then 125 mg every other day for 4 weeks., 0 Refills, Maintenance, 08/01/23 11:29:00 EDT, Capsule, Partial fill upon patient request if the prescription is for a maykel... Start Date: 08/01/23 Status: Ordered Problem List Condition Confirmation Course [...] Neoplasm of Left Breast, pT1c, pNX, IDC, ER/AL positive recurrent in 2008 after initial diagnosis [...] Confirmed Active Vitamin D deficiency Confirmed Active Results Orders for Microbiology Reports Name Date Urine Culture 05/04/23 Microbiology Reports TEST:Urine Culture STATUS:Auth (Verified) BODY SITE: SOURCE:URINE COLLECTED DATE/TIME:05/04/23 2:10 AM Urine Culture SPECIMEN DESCRIPTION : URINE STRAIGHT CATH. SPECIAL REQUESTS : NONE CULTURE : 50-100,000 COL/ML ESCHERICHIA COLI This isolate was identified using Maldi-TOF system These AST results were performed on the Vite[employer] 2 ID and AST system REPORT STATUS : FINAL 2023 ORGANISM 50-100,000 COL/ML ESCHERICHIA COLI This isolate was identified using Maldi-TOF system These AST results were performed on the [employer] 2 ID and AST system METHOD MIN. INHIB. CONC. (MCG/ML) AMPICILLIN SUSCEPTIBLE AMPICILLIN/SULBACTAM SUSCEPTIBLE CEFAZOLIN SUSCEPTIBLE CEFEPIME SUSCEPTIBLE CEFTRIAXONE SUSCEPTIBLE CIPROFLOXACIN RESISTANT ERTAPENEM SUSCEPTIBLE GENTAMICIN SUSCEPTIBLE LEVOFLOXACIN RESISTANT NITROFURANTOIN SUSCEPTIBLE PIPERACILLIN/TAZOBAC SUSCEPTIBLE TRIMETH/SULFAMETHOX SUSCEPTIBLE Radiology Reports * Exam Date Time Procedure Performing Provider Status 07/25/23 10:30 AM US Doppler Ext Lower Venous Bilat Abril ZepedaJerry Hutchins (Verified) Notes: (US Doppler Ext Lower Venous Bilat) Reason For Exam: Swelling Extremities RESULT: US Doppler Ext Lower Venous Bilat US Doppler Ext Lower Venous Bilat REASON: Swelling Extremities; Clinical Question(s): Thrombosis COMPARISON: None IMAGING TECHNIQUE: Ultrasound of the veins from the groin through the calf was performed using grayscale, color, and spectral Doppler ultrasound assessing for complete compressibility and normal flowcharacteristics. FINDINGS: RIGHT LOWER EXTREMITY: Common femoral vein: Patent. No thrombosis. Femoral vein: Patent. No thrombosis. Popliteal vein: Patent. No thrombosis. Gastrocnemius veins: The visualized portions are patent without evidence of thrombosis. Peroneal veins: The visualized portions are patent without evidence of thrombosis. Posterior tibial veins: The visualized portions are patent without evidence of thrombosis. LEFT LOWER EXTREMITY: Common femoral vein: Patent. No thrombosis. Femoral vein: Patent. No thrombosis. Popliteal vein: Patent. No thrombosis. Gastrocnemius veins: The visualized portions are patent without evidence of thrombosis. Peroneal veins: The visualized portions are patent without evidence of thrombosis. Posterior tibial veins: The visualized portions are patent without evidence of thrombosis. OTHER FINDINGS: There is diffuse calf edema. IMPRESSION: No evidence of deep venous thrombosis. I have personally reviewed the images and I agree with this report. WSN: [id number] Ordering Physician: Cedric Teran Dictated By: Javier Shafer MD Dictated Date/Time: 07/25/23 11:55 a Reviewed By: Chester Olvera MD Signed By: Chester Olvera MD Signed Date/Time: 07/25/23 12:00 pm Transcribed By: BECKY Transcribed Date/Time: 07/25/23 10:49 am * Exam Date Time Procedure Performing Provider Status 07/24/23 1:16 PM Chest Portable Migdalia Toscano (Verified) Notes: (Chest Portable) Reason For Exam: Bilateral B-lines on bedside U/S, hypoxia, evaluate CHF exacerbation;CHF RESULT: Chest Portable Chest Portable Reason: CHF; Bilateral B-lines on bedside U S, hypoxia, evaluate CHF exacerbation; Clinical Question(s): Pulmonary Edema COMPARISON: 07/18/2023. The study is limited due to patient being rotated, and having not taken a nonoptimal inspiratory effort. FINDINGS: LINES AND TUBES: None. LUNGS AND PLEURA: There has been no dramatic change since the previous exam. The right hemidiaphragm is elevated. There are persistent increased markings throughout the right lung. Left lung is essentially clear asidefrom a tiny bit of left basilar atelectasis. No pleural effusion. No pneumothorax. HEART, MEDIASTINUM AND ANICETO: Heart size has remained stable. Aorta is tortuous and unfolded.. BONES AND SOFT TISSUES: There are multiple surgical clips in the left axilla. IMPRESSION: No dramatic change from the previous exam. WSN: [id number] Ordering Physician: Cedric Teran Dictated By: Guille Carolina MD Dictated Date/Time: 07/24/23 1:36 pm Reviewed By: Guille Carolina MD Signed By: Guille Carolina MD Signed Date/Time: 07/24/23 1:36 pm Transcribed By: BECKY Transcribed Date/Time: 07/24/23 1:33 pm * Exam Date Time Procedure Performing Provider Status 07/18/23 9:42 AM Chest Portable Migdalia Toscano (Verified) Notes: (Chest Portable) Reason For Exam: Shortness of Breath RESULT: Chest Portable Chest Portable Reason: Shortness of Breath; Clinical Question(s): CHF COMPARISON: Multiple prior chest radiographs with the most recent dated 07/17/2023 at 1533 hours. FINDINGS: Slightly limited examination due to rotation to the right. LINES AND TUBES: None. LUNGS AND PLEURA: Low lung volumes bilaterally. Significant persistent elevation of the right hemidiaphragm with subsegmental atelectasis in the right lung base potentially slightly worsening. Probable worsening consolidation right upper lobe medially. Slight prominence of the central pulmonary vasculature without definite pulmonary edema. Possible small bilateral pleural effusions. No pneumothorax. HEART, MEDIASTINUM AND ANICETO: Probable top normal heart size. Normal mediastinal and hilar contour. BONES AND SOFT TISSUES: No acute abnormality. Mild degenerative change both shoulders. Multiple surgical clips are seen in the left axilla. Probable remote left mastectomy and axillary lymph node dissection. IMPRESSION: Limited examination due to rotation to the right. Persistent significant elevation of the right hemidiaphragm probably due to eventration with worsening subsegmental atelectasis right lung base. Increased density in the right paratracheal region compared to the prior examination which may indicate worsening medial right upper lobe consolidation. Top normal heart size. Mild prominence of the central pulmonary vasculature. WSN: [id number] Ordering Physician: Ge Anguiano Dictated By: Enoc Rosas MD, V Dictated Date/Time: 07/18/23 4:01 pm Reviewed By: Enoc Rosas MD, V Signed By: Enoc Rosas MD, V Signed Date/Time: 07/18/23 4:01 pm Transcribed By: BECKY Transcribed Date/Time: 07/18/23 3:57 pm * Exam Date Time Procedure Performing Provider Status 07/17/23 3:43 PM Chest Portable Padmini Charlton; Liset (Verified) Notes: (Chest Portable) Reason For Exam: Shortness of Breath RESULT: Chest Portable Chest Portable supine at 3:30 PM Reason: Shortness of Breath; Clinical Question(s): CHF COMPARISON: Multiple priors, the most recent 07/13/2023 FINDINGS: LINES AND TUBES: None. LUNGS AND PLEURA: Low lung volumes, especially on the right, with elevation of the right hemidiaphragm. Atelectasis in the mid to lower portion of the right lung. Both lungs are otherwise clear with normal vascularity. No pleural effusion. No pneumothorax. HEART, MEDIASTINUM AND ANICETO: Heart is normal in size. Normal mediastinal and hilar contour. BONES AND SOFT TISSUES: No acute abnormality. Degenerative changes in both shoulders. Status post left mastectomy. Numeroussurgical clips again noted along the left chest wall. IMPRESSION: Low lung volumes with persistent elevation of the right hemidiaphragm and right lung atelectasis. No other acute abnormality. Remote left mastectomy. WSN: [id number] Ordering Physician: Ge Anguiano Dictated By: Benjy Pearson MD Dictated Date/Time: 07/17/23 4:56 pm Reviewed By: Benjy Pearson MD Signed By: Benjy Pearson MD Signed Date/Time: 07/17/23 4:56 pm Transcribed By: BECKY Transcribed Date/Time: 07/17/23 4:51 pm * Exam Date Time Procedure Performing Provider Status 07/14/23 5:[address] Head/Brain W/O Contrast Jai Batista (Verified) Notes: (CT Head/Brain W/O Contrast) Reason For Exam: AMS;Behavior Problem RESULT: CT Head/Brain W/O Contrast CT Head/Brain W/O Contrast INDICATION: Reason: Behavior Problem; AMS; Clinical Question(s): Infarction; Order Comment: TECHNIQUE: Noncontrast head CT using axial technique and reconstructed in axial and coronal planes.Iterative reconstruction techniques are used to optimize dose and image quality. CTDIvol Head: 47.10 mGy, DLP Head: 772 mGy*cm. COMPARISON: None. FINDINGS: Cnp view findings, lines and tubes: None. BRAIN AND EXTRA-AXIAL SPACES: No parenchymal hemorrhage, midline shift, or mass effect. Fam-white matter differentiation is wellpreserved. No acute infarct. Negative insular ribbon sign. Atherosclerotic vascular calcification of the carotid arteries but negative hyperdense vessel sign. Mild prominence of the ventricles and sulci consistent with parenchymal volume loss. Moderate low-density white matter changes. No subarachnoid hemorrhage. No subdural or epidural collection. CALVARIUM, SKULL BASE, AND SOFT TISSUES: No fractures or suspicious bony lesions. The paranasal sinuses and mastoid air cells are clear. Visualized orbits and globes are intact. The extracranial soft tissues are unremarkable. IMPRESSION: No acute intracranial pathology. Mild diffuse parenchymal volume loss and white matter chronic microvascular ischemia. WSN: [id number] Ordering Physician: Shari Magaña Dictated By: Andrew Roth MD Dictated Date/Time: 07/14/23 5:23 pm Reviewed By: Andrew Roth MD Signed By: Andrew Roth MD Signed Date/Time: 07/14/23 5:23 pm Transcribed By: BECKY Transcribed Date/Time: 07/14/23 5:21 pm * Exam Date Time Procedure Performing Provider Status 07/13/23 6:52 PM Chest Portable Blaine Melendez (V erified) Notes: (Chest Portable) Reason For Exam: Shortness of Breath RESULT: Chest Portable Chest Portable Reason: Shortness of Breath; Clinical Question(s): Pulmonary Edema COMPARISON: 07/02/2023 FINDINGS: Low lung volumes bilaterally with elevation of the right hemidiaphragm as well. Reidentified hazy densities in the right lung. No definite pleural effusion. Unchanged cardiomediastinal silhouette. IMPRESSION: Similar to the prior study with possible airspace disease in the right lung which could represent pneumonia, asymmetric edema or atelectasis. WSN: [id number] Ordering Physician: Leslye Grullon Dictated By: Alex Tate MD Dictated Date/Time: 07/13/23 7:46 pm Reviewed By: Alex Tate MD Signed By: Alex Tate MD Signed Date/Time: 07/13/23 7:46 pm Transcribed By: BECKY Transcribed Date/Time: 07/13/23 7:45 pm * Exam Date Time Procedure Performing Provider Status 07/02/23 6:54 PM Chest Portable Steve Melendez; Liset (V erified) Notes: (Chest Portable) Reason For Exam: Fever RESULT: Chest Portable Chest Portable Reason: Fever; Clinical Question(s): Pneumonia COMPARISON: Priors, most recent dated 03/22/2023 FINDINGS: LINES AND TUBES: None. LUNGS AND PLEURA: Low lung volumes with elevated right hemidiaphragm noted. Heterogeneous airspace opacity noted in the central right upper lobe and right infrahilar region aswell as faint airspace opacity in the right midlung, probably related to a combination of pneumoniaand atelectasis. Mild interstitial thickening in the right mid to lower lungs, likely due to mild asymmetric pulmonary edema. No definite focal opacity in the left lung. No pleural effusion. No pneumothorax. HEART, MEDIASTINUM AND ANICETO: Heart is normal in size. Normal mediastinal and hilar contour. BONES AND SOFT TISSUES: No acute abnormality. Multiple surgical clips in the left axilla. Biopsy clips in the right breast. IMPRESSION: Heterogeneous airspace opacity noted in the central right upper lobe and in the right infrahilar region with volume loss of the right lung with elevated right hemidiaphragm, likely representing a combination of pneumonia and atelectasis in the correct clinical content. Faint hazy opacity in the right mid to lower lung with mild prominence of the pulmonary interstitial markings, probably due to mild asymmetric edema. An actionable message ([place]) has been communicated via the [employer] system on 07/02/2023 6:58 PM, Message ID [id number]. WSN: [id number] Ordering Physician: Nita Abreu Dictated By: Zita Davis MD Dictated Date/Time: 07/02/23 6:58 pm Reviewed By: Zita Davis MD Signed By: Zita Davis MD Signed Date/Time: 07/02/23 6:58 pm Transcribed By: BECKY Transcribed Date/Time: 07/02/23 6:55 pm * Exam Date Time Procedure Performing Provider Status 06/13/23 12:39 PM Abdomen AP Padmini Charlton; Auth (Verified) Notes: (Abdomen AP) Reason For Exam: pain;Distention RESULT: XR Abdomen AP XR Abdomen AP 1 view supine, 2 images INDICATION/CLINICAL QUESTION: Reason: Distention; pain; Clinical Question(s): Obstruction COMPARISON: 05/26/2023 FINDINGS: Nonobstructive bowel gas pattern with multiple nondilated small air-filled small bowel loops mainlyin the right side of the abdomen and small amounts of scattered colonic gas. No evidence for constipation. There is no gross pneumoperitoneum on this supine examination. Meek catheter in place. No acute bone findings. IMPRESSION: Nonspecific, nonobstructive bowel gas pattern. WSN: [id number] Ordering Physician: Danielle Castaneda Dictated By: Yoni Trevizo MD Dictated Date/Time: 06/13/23 3:12 pm Reviewed By: Yoni Trevizo MD Signed By: Yoni Trevizo MD Signed Date/Time: 06/13/23 3:12 pm Transcribed By: BECKY Transcribed Date/Time: 06/13/23 3:10 pm * Exam Date Time Procedure Performing Provider Status 05/26/23 9:11 AM Abdomen AP Alex , Charo; Auth (V erified) Notes: (Abdomen AP) Reason For Exam: Distention RESULT: XR Abdomen AP XR Abdomen AP 1 view INDICATION/CLINICAL QUESTION: Refer to EMR; Reason: Distention; Clinical Question(s): Obstruction; Order Comment: RN will call back. Checking on pt now. -OS 2023 19:55:46 EST Called floor to follow up. RN unavailable. -OS 05 25 2023 19:05:03 EST Pt combative and refusing x-ray. Attempted abdomen image and patient was refusing to lay flat and hitting 2 technologists. Patient is being sent back to the floor. I rodas COMPARISON: None FINDINGS: Nonspecific nonobstructive bowel gas pattern. No pneumoperitoneum on limited supine assessment. Mild degenerative change within the spine. IMPRESSION: Limited study due to patient cooperation. No overt bowel obstruction. WSN: [id number] Ordering Physician: Ge Anguiano Dictated By: Arcenio Villafana MD Dictated Date/Time: 05/26/23 9:14 am Reviewed By: Arcenio Villafana MD Signed By: Arcenio Villafana MD Signed Date/Time: 05/26/23 9:14 am Transcribed By: BECKY Transcribed Date/Time: 05/26/23 9:12 am Vital Signs Most recent to oldest [Reference Range]: 1 2 3 Height 150 cm (07/29/23 7:45 AM) 150 cm (07/28/23 7:40 PM) 150 cm (07/27/23 8:51 PM) Weight 55.6 kg (07/28/23 4:36 AM) 62.3 kg (07/12/23 8:03 AM) 66.6 kg (07/06/23 7:10 AM) Oxygen Saturation [94-100 %] 97 % (08/01/23 7:00 AM) 94 % (07/31/23 10:00 PM) 97 % (07/31/23 8:00 AM) Pulse Rate [55-90 bpm] 62 bpm (08/01/23 7:00 AM) 98 bpm *H* (07/31/23 10:00 PM) 63 bpm (07/31/23 8:00 AM) Body Mass Index [18.5-24.99 kg/m2] 23.38 kg/m2 (05/03/23 7:05 PM) Blood Pressure [90-138/55-84 mm Hg] 136/60mm Hg (08/01/23 8:41 AM) 136/60mm Hg (08/01/23 8:39 AM) 136/60mm Hg (08/01/23 7:00 AM) Respiratory Rate [16-30 br/min] 17 br/min (08/01/23 7:00 AM) 17 br/min (07/31/23 10:00 PM) 20 br/min (07/31/23 8:00 AM) Temperature [96.8-100.4 DegF] 98.0 DegF (08/01/23 7:00 AM) 97.9 DegF (07/31/23 10:00 PM) 97.3 DegF (07/31/23 8:00 AM) Liters per Minute 1.5 L/min (07/26/23 7:00 AM) 1 L/min (07/25/23 7:00 AM) 1 L/min (07/24/23 8:00 PM) Mode of Delivery (Oxygen) Room air (08/01/23 7:00 AM) Room air (07/31/23 10:00 PM) Room air (07/31/23 8:00 AM) Blood pressure sites Arm, right (08/01/23 7:00 AM) Arm, right (07/31/23 10:00 PM) Arm, right (07/30/23 7:00 PM) Temperature Route Oral (08/01/23 7:00 AM) Oral (07/31/23 10:00 PM) Axillary (07/31/23 8:00 AM) Dry Weight 62.3 kg (07/12/23 8:03 AM) 52.6 kg (05/03/23 7:05 PM) Weight Obtained Via Bed scale (07/28/23 4:36 AM) Bed scale (07/12/23 8:03 AM) Bed scale (07/06/23 7:10 AM) Dry Weight Obtained Via Bed scale (07/12/23 8:03 AM) Social History Social History Type Response Smoking Status Never (less than 100 in lifetime) entered on: 04/18/23 Sex Consult note * Yoli Church DO: PERFORM, MODIFY Event Display: Consultation Note Authored Date: Patient: ??DELANEY ARIAS ? Age:??73 Years?Sex:??Female?:??1950?? Delaney is a 72-year-old with hx of MDD with psychotic features, initially was on APTU receiving ECT, transferred to medicine for failure to thrive, UTI, urinary retention, her stay on medical floor was complicated by c. diff and delirium. She is now medically cleared, completed IV abx. ?? Plan: -Bed-search referral placed today ?? Yoli Church?? PGY-4 Department of Psychiatry Pager #[phone] * oRbert Bowden RN: VERIFY, PERFORM, SIGN Event Display: Consultation Note Authored Date: Patient: DELANEY ARIAS Age: 73 years Sex: Female : 1950 Associated Diagnoses: None Author: Robert Bowden RN PERIANAL History of Presenting Problem Date of Service 05/28/2023 chief technologist called during prevalence study by RN to assess intergluteal crease for etiology and recommendations. Photos were reviewed in [facility] and the perianal wound is noted to be a Moisture associated skin damage with Fungal dermatitis. Recommendations shared with direct care RN and gopogo message sent to MD Estela Anguiano. Recommendations: 1.) Perianal: Cleanse with a pH balanced cleanser. Pat dry. Apply 2% Miconazole ointment twice a day. *Miconazole initial utilization for 2 weeks (Started on 05/28/23). Reassess for continued utilization when course completed. *Limit Brief and Mepilex foam use with incontinence* 2.) Continue use of specialty bed/low air loss mattress 3.) Turn and reposition every 2 hours and PRN 4.) Continue incontinence care as well as moisture management 5.) Continue to offload bony prominences 6.) Float heels 7.) Continue to provide optimal nutritional support 8.) Provide Gaymar cushion to chair when patient OOB Please reconsult wound care RNs for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 chronic disease (D63.8) Epilepsy (G40.909) Urinary retention (R33.9) Mild intermittent asthma (J45.20) Acute hyponatremia (E87.1) _ Discharge Medications Acetaminophen (acetaminophen 325 mg oral tablet)?650?Milligram?By Mouth?Every 6 hours?as needed?/Headache?Pain , Mild Albuterol (albuterol CFC free 90 mcg/inh inhalation aerosol)?2?puff(s)?Inhalation?Every4 hours?as needed?Wheezing/Shortness of Breath Amlodipine (amLODIPine 5 mg oral tablet)?5?Milligram?By Mouth?Daily?hold if systolicblood pressure is below 120 mmHg Anastrozole (anastrozole 1 mg oral tablet)?1?Milligram?By Mouth?Daily in AM Aspirin (aspirin 81 mg oral tablet, chewable)?81?Milligram?By Mouth?Daily Cetirizine (cetirizine 5 mg oral tablet)?5?Milligram?By Mouth?Daily at bedtime Divalproex Sodium (divalproex sodium 500 mg oral enteric coated tablet)?500?Milligram?By Mouth?Daily at bedtime Ferrous Sulfate (ferrous sulfate 325 mg oral enteric coated tablet)?325?Milligram?By Mouth?Daily Fluoxetine (FLUoxetine 20 mg oral capsule)?40?Milligram?By Mouth?Daily Furosemide (Lasix 20 mg oral tablet)?20?Milligram?By Mouth?Daily Glucose (Glucose Gel)?15?gram?By Mouth?Every 20 minutes?as needed?Blood Glucose?50 to 70 and patient ALERT Insulin Glargine (Lantus Inj)?0.06?Milliliter?6?unit(s)?Subcutaneous Injection?Daily at bedtime Insulin Lispro (insulin lispro 100 units/mL injectable solution)?2-10 units?Subcutaneous Injection?3 times a day before meals?<< Sliding Scale Comments >>150 - 199 ?? 2 units Call if less than [id number] - 249 ?? 4 units 250 - 299 ?? 6 units 300 - 349 ?? 8 units 350 - 399 ?? 10 units Call if greater than 400<< Sliding Scale Comments >> levETIRAcetam (Keppra 500 mg oral tablet)?500?Milligram?By Mouth?2 times a day Levothyroxine (levothyroxine 0.1 mg oral tablet)?100?Microgram?By Mouth?Daily in AM?Take on empty stomach and 1 hour before other pills or breakfast with plenty of water. Losartan (losartan 100 mg oral tablet)?1?tab(s)?100?Milligram?By Mouth?Daily?hold if systolic blood pressure is below 120 mmHg Mirtazapine (mirtazapine 30 mg oral tablet, disintegrating)?1?tab(s)?30?Milligram?ByMouth?Daily at bedtime Multivitamin With Minerals (multivitamin with minerals Multiple Vitamins with Minerals oral tablet)?1?tab(s)?By Mouth?Daily Risperidone (risperiDONE 1 mg oral tablet)?2?Milligram?By Mouth?2 times a day Simvastatin (simvastatin 20 mg oral tablet)?20?Milligram?By Mouth?Daily at bedtime Thiamine (thiamine 100 mg oral tablet)?100?Milligram?By Mouth?Daily Trazodone (traZODone 50 mg oral tablet)?50?Milligram?By Mouth?Daily at bedtime?as needed?Insomnia Vancomycin (vancomycin 125 mg oral capsule)?See Instructions?125 mg By Mouth Every 6 hours for 3 days then 125 mg bid for 1 week, then 125 mg every other day for 4 weeks. ? Medications Started lantus, sliding scale lispro, vancomycin, lasix Hospital Course ??Delaney Arias is a 73-year-old female with a medical history of major depression, diabetes mellitus, psychosis, breast cancer s/p left mastectomy with left chest wall mastodynia, diverticulitis who was admitted to the psych unit and transferred to the medical floor due to concern of dehydration, UTI and failure to thrive. Hospital course complicated by C. difficile colitis which has since resolved and HAP sp IV antibiotics completed on 07/06. ?? Psych was closely following. ??Patient received multiple??ECT during hospitalizations.?? Adjusted medication as below.?? As per psych??no plan for additional ECT. ??Okay to be discharged.?? Patient is also medically optimized for discharge.?? Treated for C. difficile. ??No more diarrhea. ??Discharging with tapering dose of??vancomycin. Physical therapy consult recommended rehab. ?? Case management consult for discharge plan. ?? Expected rehab stay less than 30 days. ?? she was treated for ?? Major Depressive Disorder, Recurrent Episode, Severe Degree, Specified as with Psychotic Behavior ??(F33.3): Stable. Failure to thrive in adult ??(R62.7) Psych was closely following. ??Adjusted medication. ??She received??several ECTs??during the hospitalization. -continue Depakote, Prozac and Remeron, psychiatry follow up appreciated no plan for additional ECT -FTT most likely related to uncontrolled depression, currently is making slow improvement, on 1:1 feeding appetite is fair, continue thiamine and MW -[facility] Patient currently on??trazodone 50 mg as needed at bedtime,??risperidone 2 mg twice daily, mirtazapine 30 mg at bedtime,??divalproex sodium??500 mg at bedtime,??fluoxetine 40 mg daily.?Discharged with the same medications.?? Follow-up with psych as an outpatient Patient is currently improving. ??Compliant with the care she is taking medication eating.?? More complicated.?? Mood is??improved. ?? Acute diastolic heart failure ??(I50.31): Stable. ??Euvolemic on exam -based on B-lines seen on U/S and 3+ pitting edema -well diuresed with ~8L UOP, peripheral edema is improving and lung U/S also less congested, transition to PO Lasix 20 mg daily starting on 07/27/2023 -LE Doppler negative, TTE reviewed ?? Hypertension ??(I10): Stable -continue amlodipine and losartan ?? Acute hyponatremia (E87.1): Resolved -clinically euvolemic, urine tests are not sent but Na level is improving with Urea likely SIADH, improved with Urea Na is 140, monitor Na periodically outpatient ?? Clostridium difficile colitis ??(A04.72) -Diarrhea??resolved. ??Continue??vancomycin tapering. She is currently off isolation. ?? Cirrhosis of liver ??(K74.60) -recent CT A/P showed cirrhotic morphology with splenomegaly, possible from NFALD, need outpatient follow up ?? Urinary retention ??(R33.9) -Failed trial of void??x 3 in this hospitalization. ??Meek catheter placed Likely due to trial of void at rehab. Urology follow-up as an outpatient ?? Hypothyroidism ??(E03.9) -continue levothyroxine ?? Type 2 diabetes mellitus with diabetic neuropathy ??(E11.40) -started on lantus and sliding scale lispro ?? Thrombocytopenia due to hypersplenism ??(D69.59) Anemia of chronic disease ??(D63.8) -stable ?? -- monitor as outpatient, follow up with PCP ?? Epilepsy ??(G40.909) -continue Keppra ?? Mild intermittent asthma ??(J45.20) -albuterol prn ?? Malignant Neoplasm of Left Breast, pT1c, pNX, IDC, ER/AL positive recurrent ??in 2008 after initialdiagnosis in 1995. ??(C50.119) -continue anastrozole follow up as outpatient . Objective Assessment and Plan ? Measurements?? Height: 150 cm (07/29/23) Weight: 55.6 kg (07/28/23) Dry Weight: 62.3 kg (07/12/23) ? Vital Signs?? Temperature: 98 DegF (08/01/23 07:00:00) Temperature Route: Oral (08/01/23 07:00:00) Pulse Rate: 62 bpm (08/01/23 07:00:00) Respiratory Rate: 17 br/min (08/01/23 07:00:00) Systolic Blood Pressure: 136 mm Hg (08/01/23 08:41:00) Diastolic Blood Pressure: 60 mm Hg (08/01/23 08:41:00) Blood pressure sites: Arm, right (08/01/23 07:00:00) Pulse Pressure: 76 mm Hg (08/01/23 07:00:00) Oxygen Saturation: 97 % (08/01/23 07:00:00) Mode of Delivery (Oxygen): Room air (08/01/23 07:00:00) Early Warning Score: 0 (08/01/23 08:42:37) ? . Physical Exam Constitutional: Alert, in no distress. Mental Status: Oriented to person, place and time. Head: Normocephalic. Neck: Supple, Full range of motion. Respiratory: Clear to auscultation. No wheezing, rales or rhonchi. Cardiovascular: S1 S2 regular. No murmurs, rubs or gallops. Gastrointestinal: Abdomen soft, non-tender, non-distended. Normal bowel sounds. Neurologic: Cranial nerves II-XII grossly intact. No focal neurological deficits. Psychiatric: Normal mood and affect [facility]. DR. Johnson Pending Results Osmolality Urine ordered on 07/27/2023 Sodium Urine ordered on 07/27/2023 Follow-Up Appointments Added Follow Up ?Time Frame ?Comments Alex ESPINOZA, Molly?1 to 2 weeks Kody ESPINOZA, Kim Jasso?1 to 2 weeks Post Discharge Care Discharge ?08/01/23 11:33:00 EDT Home Health Face to Face ^HomeHealthFTF Results Imaging(s) ?CT Head/Brain W/O Contrast ?? 07/14/2023 17:13??by Gonzalez ESPINOZA, Andrew Jeong ? IMPRESSION: ?? No acute intracranial pathology. Mild diffuse parenchymal volume loss and white matter chronic microvascular ischemia. ?Echocardiogram - Complete ?? 07/26/2023 11:51??by Eliceo Phillip MD ?Summary ??1) The LV systolic function is normal. The left ventricular ejection ??fraction is 60-65%. There is hypokinesis of the mid portion of the ??inferolateral wall. ??2) The left ventricular wall thickness is mildly increased. ??3) The right ventricle is normal in size. Right ventricular systolic ??function appears preserved. ??4) The aortic valve is trileaflet. There is severe focal aortic annular ??calcification. The aortic valve leaflets appear mildly thickened. There is ??no aortic stenosis. There is no aortic regurgitation. ?? Comparison ??No prior study available for comparison. ?? Signature ?US Doppler Ext Lower Venous Bilat ?? 07/25/2023 10:30??by Wade ESPINOZA, Chester S ? IMPRESSION: ?? No evidence of deep venous thrombosis. ? 35_ minutes spent on discharge * Sandra Babcock RN: VERIFY, PERFORM, SIGN Event Display: Case Management Discharge Plan Authored Date: Patient: DELANEY ARIAS Age: 73 years Sex: Female : 1950 Associated Diagnoses: None Author: Sandra Babcock RN Discharge Plan Case Management Discharge Plan : Case Management Discharge Plan Data 08/01/2023 11:31 EDT Discharge Level of Care at Discharge nursing home facility Discharge Nursing Homes/Rehab Facilities [facility] Discharge Transportation Arranged [facility] [address] [facility] [phone] Discharge Arranged Transport Date/Time 08/01/2023 13:30 Mode of Transportation Arranged Ambulance * Griselda Guzman RN: PERFORM Event Display: Patient Education/Instruction Authored Date: [id number] Inpatient Adult Discharge Instructions. [address] [address] Name: DELANEY ARIAS : 1950?? Visit: 05/03/2023 18:48?? Current Date: 08/01/2023 12:21 ?? Account: [id number]?? Inpatient Adult Discharge Instructions We would like to thank you for allowing us to assist you with your healthcare needs. The following includes patient education materials and information regarding your injury/illness. Our entire staffstrives to provide an excellent experience for our patients and their families. PLEASE ENSURE YOU FOLLOW-UP PER THE INSTRUCTIONS BELOW! ?? YOUR OPINION IS IMPORTANT TO US! Please complete the survey you may receive by mail or email. Your feedback will be used to make improvements to the healthcare experiences of our patients and their families. Surveys are administered by [employer] ?? If further treatment with your primary care physician or another doctor is recommended, it is important for you to keep the appointment. Call your primary care physician or return to the Emergency Department immediately if your condition worsens, fails to improve, or new symptoms develop. If you need to find a doctor, you can call [facility] for a referral at [phone] or toll free at [phone]) or log in to [email or web address].. ?? [facility], in keeping with [facility] guidance, no longer requires face masks for staff, patientsor visitors in most situations. Similiar to time spent indoors at other locations, there is the chance that you were exposed to repiratory viruses during your time with us (such as flu or COVID-19). If you develop symptoms concerning for a viral respiratory infection, please seek testing (and treatment if indicated) from your medical provider or home test kit. ?? You can view and manage your care through the patient portal or by using a health care micheal of your choosing. [employer] is a website that allows you to securely view your medical information including your hospital discharge summary, office visit summaries, medications and follow-up visits. You can also request appointments, renew medications, and request access to your medical information using a health care micheal of your choosing, or just ask a question. You can enroll at [email or web address] or register during your next office visit. You have been discharged from [facility], Patient Care Unit: D6A??. If you have any questions regarding these instructions, including results of studies pending, afteryou leave, please call us and we will be happy to assist you 05/11. [facility] Your Care Team Attending Physician Ge Anguiano MD?? Consulting Providers Ge Anguiano MD?? Discharging Providers Ge Anguiano MD Your Diagnosis Major Depressive Disorder, Recurrent Episode, Severe Degree, Specified as with Psychotic Behavior Failure to thrive in adult Acute diastolic heart failure Clostridium difficile colitis Hypertension Hypothyroidism Type 2 diabetes mellitus with diabetic neuropathy Malignant Neoplasm of Left Breast, pT1c, pNX, IDC, ER/AL positive 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. Cirrhosis of liver Thrombocytopenia due to hypersplenism Anemia of chronic disease Epilepsy Urinary retention Mild intermittent asthma Acute hyponatremia Tests Performed Below is a partial list of the tests performed during your hospitalization. You may have had other tests and procedures not included in this list. Please discuss all test results with your provider. Alk Phos ALT Ammonia Venous AST Basic Metabolic Panel Bilirubin Total + Direct Blood Culture Blood Culture #2 Blood Culture 2 Results Blood Culture Result BNP BUN C. difficile Rapid Toxin Assay Calcium Level CBC CBC w/ Differential Comprehensive Metabolic Panel COVID-19, RSV, and Flu A/B, Rapid PCR Creatinine Depakote Level Electrolytes FOLIC ACID Glucose Level GLUCOSE POC H + H HOLD GEL TUBE HOLD LAVENDER TUBE Ionized Calcium IRON & TIBC Lactate Level Magnesium Level MRSA PCR Nasal Swab Phosphorus Level Potassium Level Procalcitonin Level Urinalysis w/hold for Urine Culture Urine Culture Result Urine Culture, Routine VITAMIN B12 CT Head/Brain W/O Contrast CXR Portable Doppler Ext Lower Venous Bilat (US) KUB XR Abdomen AP XR Chest Portable Osmolality Urine (Urine Osmolality)?? Sodium Urine?? Primary Care Provider Kim Gates MD? Advance Directive Health Care Proxy on File Yes - Health Care Proxy Discharge Vitals Temperature: 98 DegF Height: 150 cm Pulse Rate: 62 bpm Weight: 55.6 kg Respiratory Rate: 17 br/min Body Mass Index: 23.38 kg/m2 Systolic Blood Pressure: 136 mm Hg Body surface area: 1.48 Diastolic Blood Pressure: 60 mm Hg ?? Oxygen Saturation: 97 % ?? Studies Pending All studies ordered during this hospital stay have been completed unless listed below. Please discuss all pending results with your provider listed above in these instructions. ?? Osmolality Urine (Urine Osmolality)?? Sodium Urine?? What to do next Instructions From Your Doctor ?? Orders? 08/01/23 11:33:00 EDT?? You Need to Schedule the Following Appointments Follow Up with??[facility] When:??Within 1 to 2 weeks Why: please call for appointment Where: [address] [place] [address]- Follow Up with??Molly Johnson MD When:??Within 1 to 2 weeks Where: [address] [place] [address]- Follow Up with??Kim Gates MD When:??Within 1 to 2 weeks Where: [address] [place] [address]- Discharge Medications GABRIELLA DELANEY :1950 Visit Date:05/03/2023 Medications: Please continue your medications until treatment is completed or stopped by your provider. Medications not listed below should be discontinued. Discuss any questions related to medications with your provider. What How Much When Instructions Next Dose New Amlodipine (amLODIPine 5 mg oral tablet) 5 Milligram Oral Daily hold if systolic blood pressure is below 120 mmHg ?? Pickup at [facility] 08/02/23 9 am ?? New Divalproex Sodium (divalproex sodium 500 mg oral enteric coated tablet) 500 Milligram Oral Daily at Bedtime Pickup at [facility] 08/01/23 9PM New Ferrous Sulfate (ferrous sulfate 325 mg oral enteric coated tablet) 325 Milligram Oral Daily 08/02/23 9 am New Furosemide (Lasix 20 mg oral tablet) 20 Milligram Oral Daily 08/02/23 9 am New Multivitamin With Minerals (multivitamin with minerals Multiple Vitamins with Minerals oral tablet) 1 tab(s) Oral Daily Pickup at [facility] 08/02/23 9 am New Thiamine (thiamine 100 mg oral tablet) 100 Milligram Oral Daily Pickup at [facility] 08/02/23 9 am New Vancomycin (vancomycin 125 mg oral capsule) See instructions 125 mg By Mouth Every 6 hours for 3 days then 125 mg bid for 1 week, then 125 mg every other day for 4 weeks. ?? See instruction Changed Fluoxetine (FLUoxetine 20 mg oral capsule) 40 Milligram Oral Daily Pickup at [facility] 08/02/23 9 am Changed Insulin Glargine (Lantus Inj) 6 unit(s) Subcutaneous Injection Daily at Bedtime 08/01/23 9PM Changed Insulin Lispro (insulin lispro 100 units/ mL injectable solution) 2-10 units Subcutaneous Injection 3 times a day before meals << Sliding Scale Comments >> 150 - 199 ?? 2 units Call if less than 70 200 - 249 ?? 4 units 250 - 299 ?? 6 units 300 - 349 ?? 8 units 350 - 399 ?? 10 units Call if greater than 400 << Sliding Scale Comments >> ?? as ordered Changed Levothyroxine (levothyroxine 0.1 mg oral tablet) 100 Microgram Oral Daily in the morning Take on empty stomach and 1 hour before other pills or breakfast with plenty of water. ?? Pickup at [facility] 08/02/23 9 am Changed Losartan (losartan 100 mg oral tablet) 1 tab(s) Oral Daily hold if systolic blood pressure is below 120 mmHg ?? Pickup at [facility] 08/02/23 9 am Changed Mirtazapine (mirtazapine 30 mg oral tablet, disintegrating) 1 tab(s) Oral Daily at Bedtime Pickup at [facility] 08/01/23 9PM Changed Risperidone (risperiDONE 1 mg oral tablet) 2 Milligram Oral Twice a day 08/01/23 9PM Changed levETIRAcetam (Keppra 500 mg oral tablet) 500 Milligram Oral Twice a day Pickup at [facility] 08/01/23 9PM Unchanged Acetaminophen (acetaminophen 325 mg oral tablet) 650 Milligram Oral Every 6 hours as needed for Pain , Mild / Headache ?? As needed Unchanged Albuterol (albuterol CFC free 90 mcg/ inh inhalation aerosol) 2 puff(s) Inhalation Every 4 hours as needed for Wheezing/Shortness of Breath Pickup at [facility] As needed Unchanged Anastrozole (anastrozole 1 mg oral tablet) 1 Milligram Oral Daily in the morning 08/02/23 9 am Unchanged Aspirin (aspirin 81 mg oral tablet, chewable) 81 Milligram Oral Daily Pickup at [facility] 08/02/23 9 am Unchanged Cetirizine (cetirizine 5 mg oral tablet) 5 Milligram Oral Daily at Bedtime 08/01/23 9PM Unchanged Glucose (Glucose Gel) 15 gram Oral Every 20 minutes as needed for Blood Glucose 50 to 70 and patient ALERT ?? As needed Unchanged Simvastatin (simvastatin 20 mg oral tablet) 20 Milligram Oral Daily at Bedtime Pickup at [facility] 08/01/23 9PM Unchanged Trazodone (traZODone 50 mg oral tablet) 50 Milligram Oral Daily at Bedtime as needed for Insomnia Pickup at [facility] ?? 9PM as needed Pharmacy Information [facility]: [address] [place] [address] [phone] ?? What How Much When Comments Stop Taking Al Hydroxide/ Mg Hydroxide/ Simethicone (Maalox Plus Liquid) 30 Milliliter Oral Every 4 hours as needed for Dyspepsia Stop Taking Glucagon (Glucagon Inj) 1 Milligram Intramuscular Once as needed for Other Stop Taking HydrOXYzine (hydrOXYzine pamoate 25 mg oral capsule) 25 Milligram Oral Twice a day as needed for Anxiety Stop Taking Levofloxacin (levoFLOXacin 750 mg oral tablet) 750 Milligram Oral Every 48 hours Stop Taking Milk of Magnesia (Milk of Magnesia Liquid) 30 Milliliter Oral Daily at Bedtime as needed for Constipation Stop Taking Pantoprazole (pantoprazole 20 mg oral delayed release tablet) 20 Milligram Oral Daily in the morning Stop Taking Senna (Senna 8.6 mg oral tablet) 2 tab(s) Oral Daily at Bedtime Stop Taking Tamsulosin (Flomax 0.4 mg oral capsule) 0.8 Milligram Oral Daily at Bedtime Prescription Given During Visit Albuterol (albuterol CFC free 90 mcg/inh inhalation aerosol) - 2 puffs = 180 mcg, Inhalation, Every4 hours, # 6.7 Gm, 2 Refills, [facility], [address] [place] [address] [phone]?? Amlodipine (amLODIPine 5 mg oral tablet) - 5 mg, By Mouth, Daily, # 90 tablet, 0 Refills, hold if systolic blood pressure is below 120 mmHg, [facility], [address] [place], [place] [address] [phone]?? Aspirin (aspirin 81 mg oral tablet, chewable) - 81 mg, By Mouth, Daily, # 90 tablet, 0 Refills, [facility], [address] [place] [address] [phone]?? Divalproex Sodium (divalproex sodium 500 mg oral enteric coated tablet) - 500 mg, By Mouth, Daily at bedtime, # 90 tablet, 0 Refills, [facility], [address] [place] [address] [phone]?? Fluoxetine (FLUoxetine 20 mg oral capsule) - 40 mg, By Mouth, Daily, # 90 tablet, 0 Refills, [facility], [address] [place] [address] [phone]?? Levothyroxine (levothyroxine 0.1 mg oral tablet) - 100 mcg, By Mouth, Daily in AM, # 90 tablet, 0 Refills, Take on empty stomach and 1 hour before other pills or breakfast with plenty of water., [facility], [address] [place] [address] [phone]?? Losartan (losartan 100 mg oral tablet) - 1 tablet = 100 mg, By Mouth, Daily, # 90 tablet, 0 Refills, hold if systolic blood pressure is below 120 mmHg, [facility], [address] [place], [place] [phone]?? Mirtazapine (mirtazapine 30 mg oral tablet, disintegrating) - 1 tablet = 30 mg, By Mouth, Daily at bedtime, # 90 tablet, 0 Refills, [facility], [address] [place], [place] [phone]?? Multivitamin With Minerals (multivitamin with minerals Multiple Vitamins with Minerals oral tablet)- 1 tablet, By Mouth, Daily, # 90 tablet, 0 Refills, [facility], [address] [place], [place] [phone]?? Simvastatin (simvastatin 20 mg oral tablet) - 20 mg, By Mouth, Daily at bedtime, # 90 tablet, 0 Refills, [facility], [address] [place], [place] [phone]?? Thiamine (thiamine 100 mg oral tablet) - 100 mg, By Mouth, Daily, # 90 tablet, 0 Refills, [facility], [address] [place], [place] [phone]?? Trazodone (traZODone 50 mg oral tablet) - 50 mg, By Mouth, Daily at bedtime, # 30 tablet, 0 Refills, [facility], [address] [place], [place] [phone]?? levETIRAcetam (Keppra 500 mg oral tablet) - 500 mg, By Mouth, 2 times a day, # 180 tablet, 0 Refills, [facility], [address] [place], [place] [id number]?? Laboratory Results Below is a partial list of the most recent Laboratory test results done prior to this discharge. You may have had other tests and procedures not included in this list. Please discuss all test resultswith your provider. Est Creatinine Clearance - 47.50 mL/min (07/28/2023) Alk Phos (05/04/2023) ???Alkaline Phosphatase - 110 units/L ALT (06/30/2023) ???ALT (SGPT) - 11 units/L Ammonia Venous (07/14/2023) ???Ammonia, Venous - 15 ??mole/L AST (06/30/2023) ???AST (SGOT) - 26 units/L Basic Metabolic Panel (07/29/2023) ???Sodium - 140 mmol/L???Potassium - 4.0 mmol/L???Chloride - 99 mmol/L???Bicarbonate Level - 32 mmol/L???Anion Gap - 9???Glucose Level - 156 mg/dL???BUN - 65 mg/dL???Creatinine-Blood - 0.7 mg/dL???Estimated GFR Creatinine - 90 ML/MIN/1.73 M2???Calcium - 9.3 mg/dL Bilirubin Total + Direct (06/10/2023) ? ?Bilirubin, Total - 0.3 mg/dL? ?Bilirubin, Direct - <0.2 mg/dL? ?Bilirubin, Indirect - Direct bilirubin is less than the measureable limit. Therefore, indirect Blood Culture (07/13/2023) ???Blood Culture Results - Final report???Blood Culture Specimen Source - BLOOD Blood Culture #2 (07/14/2023) ???Blood Cult 2 Results - Final report???Blood Culture 2 Specimen Source - BLOOD Blood Culture 2 Results (07/14/2023) ???Blood Culture 2 Isolate 1 - Comment Blood Culture Result (07/13/2023) ???Blood Culture Isolate 1 - Comment BNP (07/24/2023) ???Nt-Probnp - 359 pg/mL BUN (07/23/2023) ???BUN - 10 mg/dL C. difficile Rapid Toxin Assay (07/19/2023) ???C.difficile Toxin - Positive. C. Difficile bacterial antigen and toxin detected. All test Calcium Level (07/23/2023) ???Calcium - 8.9 mg/dL CBC (07/27/2023) ???WBC - 2.4 k/mm3???RBC - 2.98 m/mm3???Hgb - 8.2 Gm/dL???Hct - 25.3 %???MCV - 84.9 femtoliters???MCH - 27.5 pg???MCHC - 32.4 g/dL???Platelet Count - 95 k/mm3???RDW-SD - 45.1 femtoliters???MPV - 11.1femtoliters???Nucleated RBC (Automated) - 0.0 #/100 WBC'S???Abs. NRBC - 0.0 k/mm3 CBC w/ Differential (07/23/2023) ???WBC - 2.2 k/mm3???RBC - 3.10 m/mm3???Hgb - 8.3 Gm/dL???Hct - 26.6 %???MCV - 85.8 femtoliters???MCH - 26.8 pg???MCHC - 31.2 g/dL???Platelet Count - 84 k/mm3???RDW-SD - 46.2 femtoliters???MPV - 10.9femtoliters???Nucleated RBC (Automated) - 0.0 #/100 WBC'S???Abs. NRBC - 0.0 k/mm3???Abs. Neut - 1.3 k/mm3???Abs. Lymph - 0.7 k/mm3???Abs. Beckham - 0.2 k/mm3???Abs. Eo - 0.0 k/mm3???Abs. Baso - 0.0 k/mm3???Neut % - 57.4 %???Lymph % - 29.4 %???Beckham % - 10.4 %???Eos % - 1.8 %???Baso % - 0.5 %???Imm Gran- 0.5 %???Abs. Imm Gran - 0.0 k/mm3 Comprehensive Metabolic Panel (07/24/2023) ???Sodium - 136 mmol/L???Potassium - 5.0 mmol/L???Chloride - 95 mmol/L???Bicarbonate Level - 30 mmol/L???Anion Gap - 11???Glucose Level - 120 mg/dL???BUN - 7 mg/dL???Creatinine-Blood - 0.6 mg/dL???Estimated GFR Creatinine - 95 ML/MIN/1.73 M2???Calcium - 8.8 mg/dL???Protein, Total - 6.9 Gm/dL???Albumin - 2.5 Gm/dL???AG Ratio - 0.6???Alkaline Phosphatase - 137 units/L???AST (SGOT) - 39 units/L???ALT (SGPT) - 14 units/L???Bilirubin, Total - 0.3 mg/dL COVID-19, RSV, and Flu A/B, Rapid PCR (07/03/2023) ???Influenza A PCR - NEGATIVE???Influenza B PCR - NEGATIVE???RSV PCR - NEGATIVE???COVID-19 PCR Specimen Source - NASAL???COVID-19 PCR Result - NEGATIVE Creatinine (07/23/2023) ???Creatinine-Blood - 0.5 mg/dL???Estimated GFR Creatinine - 96 ML/MIN/1.73 M2 Depakote Level (07/12/2023) ???Valproic Level - 36.4 mg/L Electrolytes (07/23/2023) ???Sodium - 134 mmol/L???Potassium - 4.3 mmol/L???Chloride - 93 mmol/L???Bicarbonate Level - 36 mmol/L???Anion Gap - 5 FOLIC ACID (07/12/2023) ???Folic Acid Level - 8.7 ng/mL Glucose Level (07/23/2023) ???Glucose Level - 129 mg/dL GLUCOSE POC (08/01/2023) ???Glucose, POC - 123 mg/dL H + H (07/17/2023) ???Hgb - 8.3 Gm/dL???Hct - 27.4 % HOLD GEL TUBE (07/13/2023) ???Hold Gel Top - SPECIMEN DISCARDED AFTER 1 WEEK HOLD LAVENDER TUBE (07/29/2023) ???Hold Lavender Top - SPECIMEN DISCARDED AFTER 24 HOURS. Ionized Calcium (07/14/2023) ???Calcium, Ionized pH Corrected - 1.25 mmol/L IRON & TIBC (07/12/2023) ???Iron Level - 23 mcg/dL???Iron Binding Capacity, Unsaturated - 145 mcg/dL???Iron Binding Capacity, Estimated Total - 168 mcg/dL???% Iron Saturation - 14 % Lactate Level (07/13/2023) ???Lactate - 1.0 mmol/L Magnesium Level (07/29/2023) ???Magnesium - 1.7 mg/dL MRSA PCR Nasal Swab (07/04/2023) ???MRSA PCR Result - NEGATIVE???MRSA PCR Specimen Source - NASAL Phosphorus Level (07/29/2023) ???Phosphorus - 3.3 mg/dL Potassium Level (07/06/2023) ???Potassium - 3.7 mmol/L Procalcitonin Level (07/13/2023) ???Procalcitonin - 0.33 ng/mL Urinalysis w/hold for Urine Culture (06/30/2023) ???Appear/Color, Urine - LIGHT YELLOW???Specific [place], Urine - 1.012???pH, Urine - 6.5???Albumin, Urine - TRACE???Glucose, Urine - NEGATIVE???Ketones, Urine - NEGATIVE???Bilirubin, Urine - NEGATIVE???Hemoglobin, Urine - 1+???Nitrite, Urine - POSITIVE???Leukocyte, Urine - 1+???Urobilinogen - TARAS L???WBC's, Urine - 13 /HPF???RBC's, Urine - 21 /HPF???Bacteria - MODERATE???Squamous Epith - 1 /HPF???Mucus - SLIGHT???Hold Urine Culture - Testing available 48 hours from time of collection. Urine Culture Result (06/30/2023) ???Urine Culture Isolate 1 - Klebsiella pneumoniae???Urine Cult Antimicrobial Susceptibility - Comment Urine Culture, Routine (06/30/2023) ???Urine Culture Results - Final report???Urine Culture Specimen Source - URINE VITAMIN B12 (07/12/2023) ???Vitamin B12 Level - 947 pg/mL Allergies (NKA means No Known Allergies) Lovenox atropine??(SOB - Shortness of breath) penicillin??(Rash) Problems Active Problems??(27) Benign essential hypertension?? Cholelithiasis?? Chronic constipation?? Delirium, acute?? Depression with anxiety (dysthymic)?? Diabetes mellitus?? Diverticulitis?? Drug-Induced Delirium?? Environmental allergies?? Estrogen Receptor Positive Status [ER+]?? GERD without esophagitis?? History of total mastectomy of left breast?? Major Depressive Disorder, Recurrent Episode, Severe Degree, Specified as with Psychotic Behavior?? Major Depressive Disorder, Recurrent Episode, Severe Degree, Specified as with Psychotic Behavior?? Malignant Neoplasm of Left Breast, pT1c, pNX, IDC, ER/AL positive recurrent ??in 2008 after initiald?? Mastodynia, left chest wall from scarring?? Mild intermittent asthma?? Mixed hyperlipidemia?? RICHARDS (nonalcoholic steatohepatitis)?? Post-surgical hypothyroidism?? Postmastectomy Lymphedema Syndrome, left arm?? Recurrent falls?? Recurrent major depressive episodes, moderate?? Seizure disorder?? Transaminitis?? Type 2 diabetes mellitus with diabetic neuropathy?? Vitamin D deficiency?? Education Materials Below is the list of Educational Leaflet Providered with your Discharge Instructions. [employer] Patient Education - Treating Type 2 Diabetes: What to Expect?? Valuables and Belongings I fully understand and agree that [facility] accepts no responsibility for all my personal property including clothing, toilet articles, radios, jewelry, dentures, hearing aids, rings, money, or any other property that is in my possession or is brought to me after admission. I understand certain valuables may be placed in a hospital safe for a short period of time. I understand that the hospital is not liable for loss or damage due to accident, fire, or other natural occurrence while said property is in the safe. I accept full responsibility for any personal property that I keep with me, and will not hold the hospital responsible in case of loss or disappearance. I acknowledge that i have been encouraged to send valuables and belongings home. ?? No Valuables/Belongings: No valuables/belongings present Review of Valuable and Belonging List: With patient, With family, With witness, Other: pt stated she had all belongings with her during room change Date for Pt to Sign Valuables/Belongings: 07/26/23 22:23:00 ?? Other Discharge Information ? Case Management Discharge Plan?? Discharge Plan?? Discharge Level of Care at Discharge: nursing home facility Discharge Transportation Arranged: [facility] [address] [facility] [id number] [phone] Mode of Transportation Arranged: Ambulance Discharge Arranged Transport Date/Time: 08/01/23 13:30:00 Discharge Nursing Homes/Rehab Facilities: [facility] ?? Pulmonary Rehab Status?? Pulmonary Rehab Discharge Status?? Respiratory Rate: 17 br/min ? Common Emergency Awareness Tips IS IT A STROKE? Act FAST and Check for these signs: FACE Does the face look uneven? ARM Does one arm drift down? SPEECH Does their speech sound strange? TIME Call at any sign of stroke ?? Heart Attack Signs Chest discomfort: Most heart attacks involve discomfort in the center of the chest and lasts more than a few minutes, or goes away and comes back. It can feel like uncomfortable pressure, squeezing, fullness or pain. Discomfort in upper body: Symptoms can include pain or discomfort in one or both arms, back, neck, jaw or stomach. Shortness of breath: With or without discomfort. Other signs: Breaking out in a cold sweat, nausea, or lightheaded. Remember, MINUTES DO MATTER. If you experience any of these heart attack warning signs, call to get immediate medical attention! ?? Smoking can increase your chances of developing chronic health problems and can cause harmful effects to other family members in your house. If you smoke, you are strongly encouraged to quit. Please call [facility] Link at [phone] or [phone] ([phone]) or log in to [email or web address] for referrals to smoking cessation programs. ?? 808 Suicide & Crisis Lifeline is available 05/11 if you or someone you know needs to find a reason to keep living. By calling 079 you'll be connected to a skilled, trained counselor at a crisis center in your area. INPATIENT DISCHARGE INSTRUCTIONS SIGNATURE PAGE GABRIELLADELANEY Location:[facility] Registration Date and Time:05/03/2023 18:48 EST Primary Care Physician: Kim Gates MD, Attending Physician: Ge Anguiano MD, I DELANEY ARIAS, have received the above patient education materials/instructions and have verbalized understanding. If ambulance or transport services are being used I further acknowledge being given a choice of service. ?? If you need to contact me, please call me at this number: . Patient/Slabber Light Name: Patient/Slabber Light Signature: Relationship to Patient: Witness Name/Signature: Date: * Griselda Guzman RN: PERFORM Event Display: Patient Education Leaflets Authored Date: Treating Type 2 Diabetes: What to Expect ?? Treating Type 2 Diabetes: What to Expect - Video You've just been diagnosed with type 2 diabetes. Now what? nurses educator Molly Jin RN, outlines some of your treatment options. To view the video go to this web address: [email or web address] Or, scan this QR code with your smart phone ?? [employer]. All rights reserved. This information is not intended as a substitute for professional medical care. Always follow your healthcare professional's instructions. ?? * Event Display: Provider Clarification Note Please click on pdf link to open report Patient Care team information Care Team Personnel Name: Taylor Newell Position: [facility] RN Member Role: Primary Care Nurse Name: Naty Pierson RN Position: S RN Member Role: Primary Care Nurse Name: Kirsten Fernandes RN Position: [facility] RN Supv Member Role: Primary Care Nurse Name: Melinda Morelos RN Position: [facility] RN Member Role: Primary Care Nurse Name: Sophia Pereira RN Position: [facility] RN Member Role: Primary Care Nurse Name: Rhonda Sapp RN Position: [facility] RN Member Role: Primary Care Nurse Name: Tammy Prescott RN Position: [facility] RN Member Role: Primary Care Nurse Name: Armando Justice RN Position: [facility] ED RN W/OE and Tasks Member Role: Primary Care Nurse Name: Arabella He RN Position: [facility] RN Member Role: Primary Care Nurse Name: Yoli Bryant RN Position: [facility] RN Member Role: Primary Care Nurse Name: Sarah Bales RN Position: [facility] RN Member Role: Primary Care Nurse Name: Naty Holt RN Position: [facility] RN Member Role: Primary Care Nurse Name: Kim Gonzalez Position: [facility] RN Member Role: Primary Care Nurse Name: Allyson Rodriguez RN Position: [facility] RN Member Role: Primary Care Nurse Name: Griselda Guzman RN Position: [facility] RN Member Role: Primary Care Nurse Name: Avril Wright RN Position: [facility] RN Member Role: Primary Care Nurse Name: Linda Manzano RN Position: [facility] RN Member Role: Primary Care Nurse Name: Chris Lobo RN Position: [facility] RN Member Role: Primary Care Nurse Name: Emilee Goldstein RN Position: [facility] RN Member Role: Primary Care Nurse Name: Francesca Day RN Position: [facility] AMB Nurse Member Role: Primary Care Nurse Name: Radha Zepeda RN Position: [facility] RN Member Role: Primary Care Nurse Name: Eliceo Ortiz RN Position: [facility] RN Member Role: Primary Care Nurse Name: Gwendolyn Petersen RN Position: [facility] RN Member Role: Primary Care Nurse Name: Mando Esparza RN Position: [facility] RN Member Role: Primary Care Nurse Name: Alida Cam Position: [facility] RN Member Role: Primary Care Nurse Name: Angella Lehman RN Position: [facility] RN Member Role: Primary Care Nurse Name: Alexandra Huff RN Position: [facility] RN Member Role: Primary Care Nurse Name: Williams Talley RN Position: [facility] RN Member Role: Primary Care Nurse Name: Gina Teran RN Position: [facility] RN Member Role: Primary Care Nurse Name: Kylie Cheng RN Position: [facility] RN Member Role: Primary Care Nurse Name: Andrew Leach RN Position: [facility] SN RN Member Role: Primary Care Nurse Name: Kirsten Suarez RN Position: [facility] RN Member Role: Primary Care Nurse Name: Naty Collazo RN Position: [facility] RN Member Role: Primary Care Nurse Name: Keira Canada RN Position: [facility] RN Member Role: Primary Care Nurse Name: Karley Morgan Position: [facility] RN Member Role: Primary Care Nurse Name: Haley Alexander Position: [facility] RN Member Role: Primary Care Nurse Name: Elaine Powell RN Position: [facility] RN Member Role: Primary Care Nurse Name: Osmel Torres RN Position: [facility] RN Member Role: Primary Care Nurse Name: Kim Gates MD Position: [facility] Outreach Member Role: PCP Address: Address: [address] [place] [address] Name: Can Coto RN Position: [facility] RN Member Role: Primary Care Nurse Name: Janice Norwood RN Position: [facility] RN Member Role: Primary Care Nurse Name: Chucky Chandler RN Position: [facility] RN Member Role: Primary Care Nurse Name: Rakesh Barriga RN Position: [facility] RN Member Role: Primary Care Nurse Name: Gwendolyn Renteria LPN Position: [facility] RN Member Role: Primary Care Nurse Name: Marla Bell RN Position: [facility] Retail Merchandiser Technician Member Role: Primary Care Nurse Name: Danielle Iraheta RN Position: [facility] RN Member Role: Primary Care Nurse Name: Eddy Castle RN Position: [facility] SHANITA RN W/OE and Tasks Member Role: Primary Care Nurse Name: Laura Loving RN Position: [facility] RN Member Role: Primary Care Nurse Name: Kavya Gaytan RN Position: [facility] RN Member Role: Primary Care Nurse Name: Allyson Bales RN Position: [facility] RN Member Role: Primary Care Nurse Name: Bryce Javier RN Position: [facility] RN Member Role: Primary Care Nurse Name: Charo Romano RN Position: [facility] SN RN Member Role: Primary Care Nurse Name: Patito Levin RN Position: [facility] RN Member Role: Primary Care Nurse Name: Elaine Hannon RN Position: [facility] RN Member Role: Primary Care Nurse Name: Sierra Mcqueen RN Position: [facility] RN Member Role: Primary Care Nurse Name: Kathya Pablo RN Position: [facility] Retail Merchandiser Technician Member Role: Primary Care Nurse Care Team Related Persons Name: CAREN PATRICKLANDO Address: [address] [address]
--- OUTSIDE RECORDS SUMMARY | 2023-12-04 07:57 | XMS_ITS | Continuity of Care Document ---
Author Organization [facility] ter Address [address] [place] [id number]- Care Team Providers Care Wrecking Car Driver Name Role Phone Kim Gates MD Primary Care Physician Encounter [facility] Date(s): 06/28/23 - 07/31/[address] [id number] Attending Physician: Francis Chaparro MD Admitting Physician: Francis Chaparro MD Referring Physician: Francis Chaparro MD Allergies, Adverse Reactions, Alerts Substance Reaction [...] 10:51:00 EDT, Inhaler, Route to Pharmacy Electronically, [id number], [facility], 150, cm, 07/24/23 7:21:00 EDT, He... Start Date: 07/26/23 Status: Ordered amLODIPine 5 mg oral tablet 5 mg, By Mouth, Daily, hold if systolic blood pressure is below 120 mmHg, # 90 tablet, Refills 0, Tot. Refills 0, Maintenance, 07/26/23 10:51:00 EDT, Route to Pharmacy Electronically, [facility], Partial fill upon patient request... Start [...] Maintenance, 07/26/23 10:51:00 EDT,Route to Pharmacy Electronically, [facility], Partial fill upon patient request if the prescription is for a schedule II opioid drNicola. Start Date: 07/26/23 Status: Ordered cetirizine 5 [...] 0 Refills, Maintenance, 07/26/23 10:51:00 EDT, Tablet, [facility], Partial fill upon patient request if the prescription is fora schedule II opioid drug., 150, cm, 07/24/23 7:21:... Start Date: 07/26/23 Status: Ordered FLUoxetine 20 mg oral capsule 40 mg, By Mouth, Daily, # 90 tablet, Refills 0, Tot. Refills 0, Maintenance, 07/26/23 10:51:00 EDT,Route to Pharmacy Electronically, [facility], Partial fill upon patient request [...] 0 Refills, Maintenance, 07/26/23 10:51:00 EDT, Tablet, [facility], Partial fill upon patient request [...] 0 Refills, Maintenance, 07/26/23 10:51:00 EDT, Tablet, [facility], Partial fill upon patient re... Start Date: 07/26/23 Status: Ordered losartan 100 mg oral tablet 1 tablet = 100 mg, By Mouth, Daily, hold if systolic blood pressure is below 120 mmHg, # 90 tablet,0 Refills, Maintenance, 07/26/23 10:51:00 EDT, Tablet, [facility], Partial fill upon patient request if the prescription is for a... Start Date: 07/26/23 Status: Ordered mirtazapine 30 mg oral tablet, disintegrating 1 tablet = 30 mg, By Mouth, Daily at bedtime, # 90 tablet, 0 Refills, Maintenance, 07/26/23 10:51:00 EDT, DIS Tablet, [facility], Partial fill upon patient request if the prescription is for a schedule II opioid drug., 150, cm, 04... Start Date: 07/26/23 Status: Ordered multivitamin with minerals Multiple Vitamins with Minerals oral tablet 1 tablet, By Mouth, Daily, # 90 tablet, 0 Refills, Maintenance, 07/26/23 10:51:00 EDT, Tablet, [facility], Partial fill upon patient request if the prescription is for a scheduleII opioid drug., 1 tablet By Mouth Daily, 150, cm,... Start Date: 07/26/23 Status: Ordered risperiDONE 1 mg oral tablet 1 mg, By Mouth, Daily at bedtime, # 90 tablet, Refills 0, Tot. Refills 0, Maintenance, 07/26/23 10:51:00 EDT, Route to Pharmacy Electronically, [facility], Partial fill upon patient request if the prescription is for a schedule II... Start Date: 07/26/23 Status: Ordered simvastatin 20 mg oral tablet 20 mg, By Mouth, Daily at bedtime, # 90 tablet, Refills 0, Tot. Refills 0, Maintenance, 07/26/23 10:51:00 EDT, Route to Pharmacy Electronically, [facility], Partial fill upon patient request if the prescription is for a schedule I... Start Date: 07/26/23 Status: Ordered thiamine 100 mg oral tablet 100 mg, By Mouth, Daily, # 90 tablet, Refills 0, Tot. Refills 0, Maintenance, 07/26/23 10:51:00 EDT, Route to Pharmacy Electronically, [facility], Partial fill upon patient request if the prescription is for a schedule II opioid d... Start Date: 07/26/23 Status: Ordered traZODone 50 mg oral tablet 50 mg, By Mouth, Daily at bedtime, PRN, # 30 tablet, Refills 0, Tot. Refills 0, Maintenance, Insomnia, 07/26/23 10:51:00 EDT, Route to Pharmacy Electronically, [facility], Partial fill upon patient request [...] 0 Refills, Maintenance, 07/26/23 10:51:00 EDT, Capsule, [place]... Start Date: 07/26/23 Status: Ordered Problem [...] 100 in lifetime) entered on: 04/18/23 Sex Patient Care team information Care Team Personnel Name: Alvin Newellia Position: [facility] Onco RN Member Role: Primary Care Nurse Name: Naty Pierson RN Position: [facility] RN Member Role: Primary Care Nurse Name: Kirsten Fernandes RN Position: [facility] RN Supv Member Role: Primary Care Nurse Name: Melinda Morelos RN Position: [facility] RN Member Role: Primary Care Nurse Name: Sophia Pereira RN Position: [facility] RN Member Role: Primary Care Nurse Name: Rhonda Sapp RN Position: [facility] RN Member Role: Primary Care Nurse Name: Tammy Prescott RN Position: [facility] RN Member Role: Primary Care Nurse Name: Armando Justice RN Position: [facility] ED RN W/OE and Tasks Member Role: Primary Care Nurse Name: Arabella He RN Position: [facility] RN Member Role: Primary Care Nurse Name: Yoli Bryant RN Position: [facility] RN Member Role: Primary Care Nurse Name: Sarah Bales RN Position: [facility] RN Member Role: Primary Care Nurse Name: Naty Holt RN Position: [facility] RN Member Role: Primary Care Nurse Name: Kim Gonzalez Position: [facility] RN Member Role: Primary Care Nurse Name: Allyson Rodriguez RN Position: [facility] RN Member Role: Primary Care Nurse Name: Avril Wright RN Position: [facility] RN Member Role: Primary Care Nurse Name: Linda Manzano RN Position: [facility] RN Member Role: Primary Care Nurse Name: Chris Lobo RN Position: [facility] RN Member Role: Primary Care Nurse Name: Emilee Goldstein RN Position: [facility] RN Member Role: Primary Care Nurse Name: Francesca Day RN Position: [facility] AMB Nurse Member Role: Primary Care Nurse Name: Radha Zepeda RN Position: [facility] RN Member Role: Primary Care Nurse Name: Eliceo Ortiz RN Position: [facility] RN Member Role: Primary Care Nurse Name: Gwendolyn Petersen RN Position: [facility] RN Member Role: Primary Care Nurse Name: Mando Esparza RN Position: [facility] RN Member Role: Primary Care Nurse Name: Alida Cam Position: [facility] RN Member Role: Primary Care Nurse Name: Angella Lehman RN Position: [facility] RN Member Role: Primary Care Nurse Name: Alexandra Huff RN Position: [facility] RN Member Role: Primary Care Nurse Name: Williams Talley RN Position: [facility] RN Member Role: Primary Care Nurse Name: Gina Teran RN Position: [facility] RN Member Role: Primary Care Nurse Name: Kylie Cheng RN Position: [facility] RN Member Role: Primary Care Nurse Name: Andrew Leach RN Position: [facility] SN RN Member Role: Primary Care Nurse Name: Kirsten Suarez RN Position: [facility] RN Member Role: Primary Care Nurse Name: Naty Collazo RN Position: [facility] RN Member Role: Primary Care Nurse Name: Keira Canada RN Position: [facility] RN Member Role: Primary Care Nurse Name: Karley Morgan Position: [facility] RN Member Role: Primary Care Nurse Name: Haley Alexander Position: [facility] RN Member Role: Primary Care Nurse Name: Elaine Powell RN Position: [facility] RN Member Role: Primary Care Nurse Name: Osmel Torres RN Position: [facility] RN Member Role: Primary Care Nurse Name: Kim Gates MD Position: [facility] Outreach Member Role: PCP Address: Address: [address] [place] [id number] Name: [place] RN Position: [facility] RN Member Role: Primary Care Nurse Name: Janice Norwood RN Position: [facility] RN Member Role: Primary Care Nurse Name: Chucky Chandler RN Position: [facility] RN Member Role: Primary Care Nurse Name: Rakesh Barriga RN Position: [facility] RN Member Role: Primary Care Nurse Name: Gwendolyn Renteria LPN Position: [facility] RN Member Role: Primary Care Nurse Name: Marla Bell RN Position: [facility] Hospital Deployment Manager Member Role: Primary Care Nurse Name: Danielle Iraheta RN Position: [facility] RN Member Role: Primary Care Nurse Name: Eddy Castle RN Position: [facility] ED RN W/OE and Tasks Member Role: Primary Care Nurse Name: Laura Loving RN Position: [facility] RN Member Role: Primary Care Nurse Name: Kavya Gaytan RN Position: [facility] RN Member Role: Primary Care Nurse Name: Allyson Bales RN Position: [facility] RN Member Role: Primary Care Nurse Name: Bryce Javier RN Position: [facility] RN Member Role: Primary Care Nurse Name: Charo Romano RN Position: [facility] SN RN Member Role: Primary Care Nurse Name: Patito Levin RN Position: [facility] RN Member Role: Primary Care Nurse Name: Elaine Hannon RN Position: [facility] RN Member Role: Primary Care Nurse Name: Sierra Mcqueen RN Position: [facility] RN Member Role: Primary Care Nurse Name: Kathya Pablo RN Position: [facility] Deployment Manager Member Role: Primary Care Nurse Care Team Related Persons Name: CLAUDIA PATRICK Address: home [address] [place] [id number]
--- OUTSIDE RECORDS SUMMARY | 2023-12-04 07:57 | XMS_ITS | Continuity of Care Document ---
Author Organization [facility] ter Address [address] [place] [id number]- Care Team Providers Care Flow Trader Name Role Phone Kim Gates MD Primary Care Physician Encounter [facility] Date(s): 05/24/23 - 06/26/[address] [id number] Attending Physician: Francis Chaparro MD Admitting [...] 2, puffs, Inhalation, Every 4 hours, PRN, Refills 0, Maintenance, 05/03/23 16:44:00 EST, Inhaler Start Date: 05/03/23 Status: Ordered anastrozole 1 mg oral tablet = 1 mg, By Mouth, Daily in AM, 0 Refills, Maintenance, 05/03/23 16:41:00 EST, Tablet, Partial fill upon patient request if the prescription is for a schedule II opioid drug. Start Date: 05/03/23 Status: Ordered aspirin 81 mg oral tablet, chewable 81 mg, By Mouth, Daily, Refills 0, Maintenance, 05/03/23 16:43:00 EST, Partial fill upon patient request if the prescription is for a schedule II opioid drug. Start Date: 05/03/23 Status: Ordered cetirizine 5 mg oral tablet = 5 mg, By Mouth, Daily at bedtime, 0 Refills, Maintenance, 05/03/23 16:43:00 EST, Tablet, Partial fill upon patient request if the prescription is for a schedule II opioid drug. Start Date: 05/03/23 Status: Ordered Flomax 0.4 mg oral capsule 0.8 mg, By Mouth, Daily at bedtime, Refills 0, Maintenance, 05/03/23 16:43:00 EST, Partial fill upon patient request if the prescription is for a schedule II opioid drug. Start Date: 05/03/23 Status: Ordered FLUoxetine 20 mg oral capsule 60 mg, By Mouth, Daily, Refills 0, Maintenance, 05/03/23 16:42:00 EST, Partial fill upon patient request if the prescription is for a schedule II opioid drug. Start Date: 05/03/23 Status: Ordered Glucagon Inj = 1 mg, [...] opioid drug. Start Date: 05/03/23 Status: Ordered hydrOXYzine pamoate 25 mg oral capsule = 25 mg, By Mouth, 2 times a day, PRN Anxiety, 0 Refills, Maintenance, 05/03/23 16:42:00 EST, Capsule, Partial fill upon patient request if the prescription is for a schedule II opioid drug. Start Date: 05/03/23 Status: Ordered insulin lispro 100 u/ml subcutaneous injection 6-12 units, Subcutaneous Injection, 3 times a day before meals, << Sliding Scale Comments >> 100 - 139 6 units Call if less than 70 140 - 179 7 units 180 - 219 8 units 220 - 259 9 units 260 - 299 10 units 300 - 339 11 units 340... Start Date: 05/03/23 Status: Ordered insulin lispro 100 u/ml subcutaneous injection 2-10 units, Subcutaneous Injection, 2 times a day, << Sliding Scale Comments >> 150 - 199 2 units Call if less than 70 200 - 249 4 units 250 - 299 6 units 300 - 349 8 units 350 - 399 10 units Call if greater than 400 << Sliding Scal... Start Date: 05/03/23 Status: Ordered Keppra 250 mg oral tablet = 250 mg, By Mouth, 2 times a day, 0 Refills, Maintenance, 05/03/23 16:43:00 EST, Tablet, Partial fill upon patient request if the prescription is for a schedule II opioid drug. Start Date: 05/03/23 Status: Ordered Lantus Inj 0.25 mL = 25 units, Subcutaneous Injection, Daily at bedtime, 0 Refills, Maintenance, 05/03/23 16:42:00 EST, Injection, Partial fill upon patient request if the prescription is for a schedule II opioid drug. Start Date: 05/03/23 Status: Ordered Lantus Inj 0.17 mL = 17 units, Subcutaneous Injection, Daily at bedtime, 0 Refills, Maintenance, 05/03/23 16:42:00 EST, Injection, Partial fill upon patient request if the prescription is for a schedule II opioid drug. Start Date: 05/03/23 Status: Ordered levoFLOXacin 750 mg oral tablet = 750 mg, By Mouth, Every 48 hours, 0 Refills, Maintenance, 05/03/23 16:43:00 EST, Tablet, Partial fill upon patient request if the prescription is for a schedule II opioid drug. Start Date: 05/03/23 Status: Ordered levothyroxine 0.1 mg oral tablet = 100 mcg, By Mouth, Daily in AM, 0 Refills, Maintenance, 05/03/23 16:42:00 EST, Tablet, Partial fill upon patient request if the prescription is for a schedule II opioid drug. Start Date: 05/03/23 Status: Ordered losartan 50 mg oral tablet 100 mg, By Mouth, Daily in AM, Refills 0, Maintenance, 05/03/23 16:42:00 EST, Partial fill upon patient request if the prescription is for a schedule II opioid drug. Start Date: 05/03/23 Status: Ordered Maalox Plus Liquid 30 mL, By Mouth, Every 4 hours, PRN Dyspepsia, 0 Refills, Maintenance, 05/03/23 16:44:00 EST, Suspension, Partial fill upon patient request if the prescription is for a schedule II opioid drug. Start Date: 05/03/23 Status: Ordered Milk of Magnesia Liquid 30 mL, By Mouth, Daily at bedtime, PRN Constipation, 0 Refills, Maintenance, 05/03/23 16:44:00 EST,Suspension, Partial fill upon patient request if the prescription is for a schedule II opioid drug. Start Date: 05/03/23 Status: Ordered mirtazapine 15 mg oral tablet = 30 mg, By Mouth, Daily at bedtime, 0 Refills, Maintenance, 05/03/23 16:42:00 EST, Tablet, Partialfill upon patient request if the prescription is for a schedule II opioid drug. Start Date: 05/03/23 Status: Ordered pantoprazole 20 mg oral delayed release tablet = 20 mg, By Mouth, Daily in AM, 0 Refills, Maintenance, 05/03/23 16:43:00 EST, EC Tablet Start Date: 05/03/23 Status: Ordered risperiDONE 1 mg oral tablet 1 mg, By Mouth, Daily at bedtime, Refills 0, Maintenance, 05/03/23 16:42:00 EST, Partial fill upon patient request if the prescription is for a schedule II opioid drug. Start Date: 05/03/23 Status: Ordered Senna 8.6 mg oral tablet 17.2 mg, 2, tablet, By Mouth, Daily at bedtime, Refills 0, Maintenance, 05/03/23 16:43:00 EST, Tablet, Partial fill upon patient request if the prescription is for a schedule II opioid drug. Start Date: 05/03/23 Status: Ordered simvastatin 20 mg oral tablet 20 mg, By Mouth, Daily at bedtime, Refills 0, Maintenance, 05/03/23 16:42:00 EST, Partial fill uponpatient request if the prescription is for a schedule II opioid drug. Start Date: 05/03/23 Status: Ordered traZODone 50 mg oral tablet 50 mg, By Mouth, Daily at bedtime, PRN, Refills 0, Maintenance, Insomnia, 05/03/23 16:44:00 EST, Partial fill upon patient request if the prescription is for a schedule II opioid drug. Start Date: 05/03/23 Status: Ordered Problem List Condition Confirmation Course [...] Neoplasm of Left Breast, pT1c, pNX, IDC, ER/AK positive recurrent in 2008 after initial diagnosis [...] Care Team Personnel Name: Taylor Newell Position: [facility] Onco RN Member Role: Primary Care Nurse Name: Naty Pierson RN Position: [facility] RN Member Role: Primary Care Nurse Name: Melinda Morelos RN Position: [facility] RN Member Role: Primary Care Nurse Name: Sophia Pereira RN Position: [facility] RN Member Role: Primary Care Nurse Name: Rhonda Sapp RN Position: [facility] RN Member Role: Primary Care Nurse Name: Tammy Prescott RN Position: [facility] RN Member Role: Primary Care Nurse Name: Armando Justice RN Position: [facility] ED RN W/OE and Tasks Member Role: Primary Care Nurse Name: Arabella He RN Position: [facility] RN Member Role: Primary Care Nurse Name: Sarah Bales RN Position: [facility] RN Member Role: Primary Care Nurse Name: Naty Holt RN Position: [facility] RN Member Role: Primary Care Nurse Name: Kim Gonzalez Position: [facility] RN Member Role: Primary Care Nurse Name: Allyson Rodriguez RN Position: [facility] RN Member Role: Primary Care Nurse Name: Linda Manzano RN Position: [facility] RN Member Role: Primary Care Nurse Name: Francesca Day RN Position: [facility] AMB Nurse Member Role: Primary Care Nurse Name: Eliceo Ortiz RN Position: [facility] RN Member Role: Primary Care Nurse Name: Gwendolyn Petersen RN Position: [facility] RN Member Role: Primary Care Nurse Name: Mando Esparza RN Position: [facility] RN Member Role: Primary Care Nurse Name: Alida Cam Position: [facility] RN Member Role: Primary Care Nurse Name: Angella Lehman RN Position: [facility] RN Member Role: Primary Care Nurse Name: Alexandra Huff RN Position: [facility] RN Member Role: Primary Care Nurse Name: Williams Talley RN Position: [facility] RN Member Role: Primary Care Nurse Name: Gina Teran RN Position: [facility] RN Member Role: Primary Care Nurse Name: Kylie Cheng RN Position: [facility] RN Member Role: Primary Care Nurse Name: Andrew Leach RN Position: [facility] SN RN Member Role: Primary Care Nurse Name: Kirsten Suarez RN Position: [facility] RN Member Role: Primary Care Nurse Name: Naty Collazo RN Position: [facility] RN Member Role: Primary Care Nurse Name: Keira Canada RN Position: [facility] RN Member Role: Primary Care Nurse Name: Karley Morgan Position: [facility] RN Member Role: Primary Care Nurse Name: Haley Alexander Position: [facility] RN Member Role: Primary Care Nurse Name: Elaine Powell RN Position: [facility] RN Member Role: Primary Care Nurse Name: Osmel Torres RN Position: [facility] RN Member Role: Primary Care Nurse Name: Kim Gates MD Position: [facility] Outreach Member Role: PCP Address: Address: [address] [place] [address] Name: Janice Norwood RN Position: [facility] RN Member Role: Primary Care Nurse Name: Chucky Chandler RN Position: [facility] RN Member Role: Primary Care Nurse Name: Rakesh Barriga RN Position: [facility] RN Member Role: Primary Care Nurse Name: Gwendolyn Renteria LPN Position: [facility] RN Member Role: Primary Care Nurse Name: Marla Bell RN Position: [facility] Hospital Manager Facility Member Role: Primary Care Nurse Name: Danielle Iraheta RN Position: [facility] RN Member Role: Primary Care Nurse Name: Eddy Castle RN Position: [facility] ED RN W/OE and Tasks Member Role: Primary Care Nurse Name: Kavya Gaytan RN Position: [facility] RN Member Role: Primary Care Nurse Name: Allyson Bales RN Position: [facility] RN Member Role: Primary Care Nurse Name: Bryce Javier RN Position: [facility] RN Member Role: Primary Care Nurse Name: Charo Romano RN Position: [facility] SN RN Member Role: Primary Care Nurse Name: Patito Levin RN Position: [facility] RN Member Role: Primary Care Nurse Name: Elaine Hannon RN Position: [facility] RN Member Role: Primary Care Nurse Name: Sierra Mcqueen RN Position: [facility] RN Member Role: Primary Care Nurse Name: Kathya Pablo RN Position: [facility] Manager Facility Member Role: Primary Care Nurse Care Team Related Persons Name: CLAUDIA PATRICK Address: [address] [address]
--- OUTSIDE RECORDS SUMMARY | 2023-12-04 07:57 | XMS_ITS | Continuity of Care Document ---
Author Organization [facility] Address [address] [place] [address]- Care Team Providers Care Executive Asst Name Role Phone Kim Gates MD Primary Care Physician [phone] Encounter [facility] Date(s): 01/08/22 - 02/07/22 [facility] [address] [place] [id number] Attending Physician: Derek Barnett Admitting Physician: AdmDerek avalos Referring Physician: Admtr, ArRenée Allergies, Adverse Reactions, Alerts Substance Reaction Severity [...] before lunch, # 90 tablet, 3 Refills, [facility], 148.5, cm, 11/24/20 10:52:00 EDT, Height, [...] Neoplasm of Left Breast, pT1c, pNX, IDC, 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 Confirmed 03/30/10 Active Mastodynia, left chest wall from scarring Confirmed 10/31/10 Active Postmastectomy Lymphedema Syndrome, left arm Confirmed 10/31/10 Active Recurrent major depressive episodes, moderate Confirmed Active Social History Social History Type Response Smoking Status Never smoker entered on: 06/04/14 Sex Patient Care team information Personnel Name: Kody ESPINOZA, Kim Jasso Address: Address: [address] [place] [id number]
--- OUTSIDE RECORDS SUMMARY | 2023-12-04 07:57 | XMS_ITS | Continuity of Care Document ---
Author Organization [facility] Address [address] [place] [id number]- Care Team Providers Care Life Science Taxonomist Name Role Phone Kim Gates MD Primary Care Physician Encounter [facility] [id number] Date(s): 05/31/21 - 08/05/21 [facility] Care [address] [place] [id number] Discharge Disposition: A-D/C Home Attending Physician: Haley Canada MD Admitting Physician: Haley Canada MD Referring Physician: Kim Gates MD Allergies, Adverse Reactions, Alerts Substance Reaction [...] before lunch, # 90 tablet, 3 Refills, [facility], 148.5, cm, 11/24/20 10:52:00 EDT, Height, [...] Date: 02/23/20 Status: Ordered Problem List Condition Effective Dates Status Health Status Inform ant Delirium, acute(Confirmed) 07/27/10 Active Depression with anxiety (dysthymic)(Confirmed) 07/27/10 Active Diverticulitis(Confirmed) Active Drug-Induced Delirium(Confirmed) 07/27/10 Active Estrogen Receptor Positive S tatus [ER+](Confirmed) 03/30/10 Active Major Depressive Disorder, R ecurrent Episode, Severe Degree, Specified as with Psychotic Behavior(Confirmed) 08/14/10 Active Major Depressive Disorder, R ecurrent Episode, Severe Degree, Specified as with Psychotic Behavior(Confirmed) 04/10/11 Active Malignant Neoplasm of Left B reast, pT1c, pNX, IDC, 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.(Confirmed) 03/30/10 Active Mastodynia, left chest wall from scarring(Confirmed) 10/31/10 Active Postmastectomy Lymphedema Sy ndrome, left arm(Confirmed) 10/31/10 Active Recurrent major depressive e pisodes, moderate(Confirmed) Active Vital Signs Most recent to oldest [Reference Range]: 1 Height 148.5 cm (06/05/21 8:47 AM) Weight 63.0 kg (06/05/21 8:47 AM) Pulse Rate [55-90 bpm] 82 bpm (06/05/21 8:47 AM) Body Mass Index [18.5-24.99] 28.57 *H* (06/05/21 8:47 AM) Blood Pressure [90-138/55-84 mm Hg] 170/ 69mm Hg *H* (06/05/21 8:47 AM) Temperature [96.8-100.4 DegF] 97.0 DegF (06/05/21 8:47 AM) Blood pressure sites Arm, left (06/05/21 8:47 AM) Temperature Route Temporal (06/05/21 8:47 AM) Dry Weight 63.0 kg (06/05/21 8:47 AM) Weight Obtained Via Standing scale (06/05/21 8:47 AM) Dry Weight Obtained Via Standing scale (06/05/21 8:47 AM) Social History Social History Type Response Smoking Status Never smoker entered on: 06/04/14 Sex
--- OUTSIDE RECORDS SUMMARY | 2023-12-04 07:57 | XMS_ITS | Continuity of Care Document ---
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 after initial diagnosis [...] Care Team Personnel Name: Taylor Newell Position: [facility] Onco RN Member Role: Primary Care Nurse Name: Naty Pierson RN Position: [facility] RN Member Role: Primary Care Nurse Name: Kirsten Fernandes RN Position: [facility] RN Supv Member Role: Primary Care Nurse Name: Melinda Morelos RN Position: [facility] RN Member Role: Primary Care Nurse Name: Sophia Pereira RN Position: [facility] RN Member Role: Primary Care Nurse Name: Rhonda Sapp RN Position: [facility] RN Member Role: Primary Care Nurse Name: Tammy Prescott RN Position: [facility] RN Member Role: Primary Care Nurse Name: Armando Justice RN Position: [facility] ED RN W/OE and Tasks Member Role: Primary Care Nurse Name: Arabella He RN Position: [facility] RN Member Role: Primary Care Nurse Name: Yoli Bryant RN Position: [facility] RN Member Role: Primary Care Nurse Name: Sarah Bales RN Position: [facility] RN Member Role: Primary Care Nurse Name: Naty Holt RN Position: [facility] RN Member Role: Primary Care Nurse Name: Kim Gonzalez Position: [facility] RN Member Role: Primary Care Nurse Name: Allyson Rodriguez RN Position: [facility] RN Member Role: Primary Care Nurse Name: Avril Wright RN Position: [facility] RN Member Role: Primary Care Nurse Name: Linda Manzano RN Position: [facility] RN Member Role: Primary Care Nurse Name: Chris Lobo RN Position: [facility] RN Member Role: Primary Care Nurse Name: Emilee Goldstein RN Position: [facility] RN Member Role: Primary Care Nurse Name: Francesca Day RN Position: [facility] AMB Nurse Member Role: Primary Care Nurse Name: Radha Zepeda RN Position: [facility] RN Member Role: Primary Care Nurse Name: Eliceo Ortiz RN Position: [facility] RN Member Role: Primary Care Nurse Name: Gwendolyn Petersen RN Position: [facility] RN Member Role: Primary Care Nurse Name: Mando Esparza RN Position: [facility] RN Member Role: Primary Care Nurse Name: Alida Cam Position: [facility] RN Member Role: Primary Care Nurse Name: Angella Lehman RN Position: [facility] RN Member Role: Primary Care Nurse Name: Alexandra Huff RN Position: [facility] RN Member Role: Primary Care Nurse Name: Williams Talley RN Position: [facility] RN Member Role: Primary Care Nurse Name: Gina Teran RN Position: [facility] RN Member Role: Primary Care Nurse Name: Kylie Cheng RN Position: [facility] RN Member Role: Primary Care Nurse Name: Andrew Leach RN Position: [facility] SN RN Member Role: Primary Care Nurse Name: Kirsten Suarez RN Position: [facility] RN Member Role: Primary Care Nurse Name: Naty Collazo RN Position: [facility] RN Member Role: Primary Care Nurse Name: Keira Canada RN Position: [facility] RN Member Role: Primary Care Nurse Name: Karley Morgan Position: [facility] RN Member Role: Primary Care Nurse Name: Haley Alexander Position: [facility] RN Member Role: Primary Care Nurse Name: Elaine Powell RN Position: [facility] RN Member Role: Primary Care Nurse Name: Osmel Torres RN Position: [facility] RN Member Role: Primary Care Nurse Name: Kim Gates MD Position: [facility] Outreach Member Role: PCP Address: Address: [address] [place] [id number] Name: Janice Norwood RN Position: [facility] RN Member Role: Primary Care Nurse Name: Chucky Chandler RN Position: [facility] RN Member Role: Primary Care Nurse Name: Rkaesh Barriga RN Position: [facility] RN Member Role: Primary Care Nurse Name: Gwendolyn Renteria LPN Position: [facility] RN Member Role: Primary Care Nurse Name: Marla Bell RN Position: [facility] Hospital Mechanical Manufacturing Technician Member Role: Primary Care Nurse Name: Danielle Iraheta RN Position: [facility] RN Member Role: Primary Care Nurse Name: Eddy Castle RN Position: [facility] ED RN W/OE and Tasks Member Role: Primary Care Nurse Name: Laura Loving RN Position: [facility] RN Member Role: Primary Care Nurse Name: Kavya Gaytan RN Position: [facility] RN Member Role: Primary Care Nurse Name: Allyson Bales RN Position: [facility] RN Member Role: Primary Care Nurse Name: Bryce Javier RN Position: [facility] RN Member Role: Primary Care Nurse Name: Charo Romano RN Position: [facility] RN Member Role: Primary Care Nurse Name: Patito Levin RN Position: [facility] RN Member Role: Primary Care Nurse Name: Elaine Hannon RN Position: [facility] RN Member Role: Primary Care Nurse Name: Sierra Mcqueen RN Position: [facility] RN Member Role: Primary Care Nurse Name: Kathya Pablo RN Position: [facility] Mechanical Manufacturing Technician Member Role: Primary Care Nurse Care Team Related Persons Name: CLAUDIA PATRICK Address: [address] [address]
--- OUTSIDE RECORDS SUMMARY | 2023-12-04 07:57 | XMS_ITS | Continuity of Care Document ---
Author Organization [facility] Address [address] [place] [address]- Care Team Providers Care Sterile Supply Technician Name Role Phone Kim Gates MD Primary Care Physician [phone] Encounter [facility] Date(s): 07/08/23 - 08/07/23 [facility] Care [address] [place] [id number] Attending Physician: Derek Barnett Admitting Physician: AdmtrDerek Referring Physician: Admtr, ArRenée Allergies, Adverse Reactions, [...] 23-valent vaccine 01/25/17 Recorded pneumococcal 23-valent vaccine 4/11/11 Given Pneumococcal Vaccine (oldterm) 01/10/16 Recorded Influenza [...] 10:51:00 EDT, Inhaler, Route to Pharmacy Electronically, NCPDP_[id number], [facility], 150, cm, 07/24/23 7:21:00 EDT, HePhillip.. Start Date: 07/26/23 Status: Ordered amLODIPine 5 mg oral tablet 5 mg, By Mouth, Daily, hold if systolic blood pressure is below 120 mmHg, # 90 tablet, Refills 0, Tot. Refills 0, Maintenance, 07/26/23 10:51:00 EDT, Route to Pharmacy Electronically, [facility], Partial fill upon patient request... Start [...] Maintenance, 07/26/23 10:51:00 EDT,Route to Pharmacy Electronically, [facility], Partial fill upon patient [...] 0 Refills, Maintenance, 07/26/23 10:51:00 EDT, Tablet, [facility], Partial fill upon patient [...] Maintenance, 07/26/23 10:51:00 EDT,Route to Pharmacy Electronically, [facility], Partial fill upon patient [...] 0 Refills, Maintenance, 07/26/23 10:51:00 EDT, Tablet, [facility], Partial fill upon patient [...] 0 Refills, Maintenance, 07/26/23 10:51:00 EDT, Tablet, [facility], Partial fill upon patient re... Start Date: 07/26/23 Status: Ordered losartan 100 mg oral tablet 1 tablet = 100 mg, By Mouth, Daily, hold if systolic blood pressure is below 120 mmHg, # 90 tablet,0 Refills, Maintenance, 07/26/23 10:51:00 EDT, Tablet, [facility], Partial fill upon patient request if the prescription is for a... Start Date: 07/26/23 Status: Ordered mirtazapine 30 mg oral tablet, disintegrating 1 tablet = 30 mg, By Mouth, Daily at bedtime, # 90 tablet, 0 Refills, Maintenance, 07/26/23 10:51:00 EDT, DIS Tablet, [facility], Partial fill upon patient request if the prescription is for a schedule II opioid drug., 150, cm, 04... Start Date: 07/26/23 Status: Ordered multivitamin with minerals Multiple Vitamins with Minerals oral tablet 1 tablet, By Mouth, Daily, # 90 tablet, 0 Refills, Maintenance, 07/26/23 10:51:00 EDT, Tablet, [facility], Partial fill upon patient [...] 07/26/23 10:51:00 EDT, Route to Pharmacy Electronically, [facility], Partial fill upon patient request if the prescription is for a schedule I... Start Date: 07/26/23 Status: Ordered thiamine 100 mg oral tablet 100 mg, By Mouth, Daily, # 90 tablet, Refills 0, Tot. Refills 0, Maintenance, 07/26/23 10:51:00 EDT, Route to Pharmacy Electronically, [facility], Partial fill upon patient request if the prescription is for a schedule II opioid d... Start Date: 07/26/23 Status: Ordered traZODone 50 mg oral tablet 50 mg, By Mouth, Daily at bedtime, PRN, # 30 tablet, Refills 0, Tot. 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 Patient Education Information Follow-up Details: With: Address: When: [place] [address] [place] [address] Professional (1) 03/04/2012 1:30:00 Comments: 1 yr f/u--inter barneyd w/ Katerin With: Address: When: Nhung Randle NP [address] [place] [address] Business (1) 09/04/2011 1:30:00 Comments: 6 month f/u inter bkd w/ Katerin Patient Education Material: Patient Care team information Care Team Personnel Name: Taylor Nweell Position: S Onco RN Member Role: Primary Care Nurse Name: Naty Pierson RN Position: S RN Member Role: Primary Care Nurse Name: Kirsten Fernandes RN Position: S RN Supv Member Role: Primary Care Nurse Name: Melinda Morelos RN Position: S RN Member Role: Primary Care Nurse Name: Sophia Pereira RN Position: [facility] RN Member Role: Primary Care Nurse Name: Rhonda Sapp RN Position: [facility] RN Member Role: Primary Care Nurse Name: Tammy Prescott RN Position: [facility] RN Member Role: Primary Care Nurse Name: Armando Justice RN Position: [facility] ED RN W/OE and Tasks Member Role: Primary Care Nurse Name: Arabella He RN Position: [facility] RN Member Role: Primary Care Nurse Name: Yoli Bryant RN Position: [facility] RN Member Role: Primary Care Nurse Name: Sarah Bales RN Position: [facility] RN Member Role: Primary Care Nurse Name: Naty Holt RN Position: [facility] RN Member Role: Primary Care Nurse Name: Kim Gonzalez Position: [facility] RN Member Role: Primary Care Nurse Name: Allyson Rodriguez RN Position: [facility] RN Member Role: Primary Care Nurse Name: Griselda Guzman RN Position: [facility] RN Member Role: Primary Care Nurse Name: Avril Wright RN Position: [facility] RN Member Role: Primary Care Nurse Name: Linda Manzano RN Position: [facility] RN Member Role: Primary Care Nurse Name: Crhis Lobo RN Position: [facility] RN Member Role: Primary Care Nurse Name: Emilee Goldstein RN Position: [facility] RN Member Role: Primary Care Nurse Name: Francesca Day RN Position: [facility] AMB Nurse Member Role: Primary Care Nurse Name: Radha Zepeda RN Position: [facility] RN Member Role: Primary Care Nurse Name: Eliceo Ortiz RN Position: [facility] RN Member Role: Primary Care Nurse Name: Gwendolyn Petersen RN Position: [facility] RN Member Role: Primary Care Nurse Name: Mando Esparza RN Position: [facility] RN Member Role: Primary Care Nurse Name: Alida Cam Position: [facility] RN Member Role: Primary Care Nurse Name: Angella Lehman RN Position: [facility] RN Member Role: Primary Care Nurse Name: Alexandra Huff RN Position: [facility] RN Member Role: Primary Care Nurse Name: Kaya Worley RN Position: [facility] RN Member Role: Primary Care Nurse Name: Williams Talley RN Position: [facility] RN Member Role: Primary Care Nurse Name: Gina Teran RN Position: [facility] RN Member Role: Primary Care Nurse Name: Kylie Cheng RN Position: [facility] RN Member Role: Primary Care Nurse Name: Andrew Leach RN Position: [facility] SN RN Member Role: Primary Care Nurse Name: Kirsten Suarez RN Position: [facility] RN Member Role: Primary Care Nurse Name: Naty Collazo RN Position: [facility] RN Member Role: Primary Care Nurse Name: Keira Canada RN Position: [facility] RN Member Role: Primary Care Nurse Name: Karley Morgan Position: [facility] RN Member Role: Primary Care Nurse Name: Haley Alexander Position: [facility] RN Member Role: Primary Care Nurse Name: Elaine Powell RN Position: [facility] RN Member Role: Primary Care Nurse Name: Osmel Torres RN Position: [facility] RN Member Role: Primary Care Nurse Name: Kim Gates MD Position: [facility] Outreach Member Role: PCP Address: Address: [address] [place] [address] Name: Can Coto RN Position: [facility] RN Member Role: Primary Care Nurse Name: Janice Norwood RN Position: [facility] RN Member Role: Primary Care Nurse Name: Chucky Chandler RN Position: [facility] RN Member Role: Primary Care Nurse Name: Rakesh Barriga RN Position: [facility] RN Member Role: Primary Care Nurse Name: Gwendolyn Renteria LPN Position: [facility] RN Member Role: Primary Care Nurse Name: Marla Bell RN Position: [facility] Food Stylist Member Role: Primary Care Nurse Name: Danielle Iraheta RN Position: [facility] RN Member Role: Primary Care Nurse Name: Eddy Castle RN Position: [facility] SHANITA RN W/OE and Tasks Member Role: Primary Care Nurse Name: Laura Loving RN Position: [facility] RN Member Role: Primary Care Nurse Name: Kavya Gaytan RN Position: [facility] RN Member Role: Primary Care Nurse Name: Allyson Bales RN Position: [facility] RN Member Role: Primary Care Nurse Name: Bryce Javier RN Position: [facility] RN Member Role: Primary Care Nurse Name: Charo Romano RN Position: [facility] SN RN Member Role: Primary Care Nurse Name: Patito Levin RN Position: [facility] RN Member Role: Primary Care Nurse Name: Elaine Hannon RN Position: [facility] RN Member Role: Primary Care Nurse Name: Sierra Mcqueen RN Position: [facility] RN Member Role: Primary Care Nurse Name: Kathya Pablo RN Position: [facility] Food Stylist Member Role: Primary Care Nurse Care Team Related Persons Name: CLAUDIA PATRICK Address: [address] [address]
--- OUTSIDE RECORDS SUMMARY | 2023-12-04 07:57 | XMS_ITS | Continuity of Care Document ---
Author Organization [facility] Address [address] [place] [id number]- Care Team Providers Care Medical Laboratory Specialist Name Role Phone Kim Gates MD Primary Care Physician En[place] [facility] [place] Date[place]s): 07/06/22 - 09/09/22 [facility] [address] [place] [email or web address] Discharge Disposition: A-D/C Home Attending Physician: Bryce Bowden DO Admitting Physician: Nehemias Yo Referring Physician: Kim Gates MD Allergies, Adverse [...] 90 tablet, 3 Refills, 05/15/22 16:31:00 EST, [facility], 148.5, cm, 01/10/22 9:59:00 EDT, Height, 59.7, kg, 01/10/22 9:59:00 EDT, Dry Weight Start Date: 05/15/22 Status: Ordered Basaglar KwikPen 100 units/mL subcutaneous [...] Neoplasm of Left Breast, pT1c, pNX, IDC, 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 Confirmed 03/30/10 Active Mastodynia, left chest wall from scarring Confirmed 10/31/10 Active Postmastectomy Lymphedema Syndrome, left arm Confirmed 10/31/10 Active Recurrent major depressive episodes, moderate Confirmed Active Vital Signs Most recent to oldest [Reference Range]: 1 Height 148.5 cm (07/10/22 8:38 AM) Weight 60.3 kg (07/10/22 8:38 AM) Oxygen Saturation [94-100 %] 100 % (07/10/22 8:38 AM) Pulse Rate [55-90 bpm] 84 bpm (07/10/22 8:38 AM) Body Mass Index [18.5-24.99 kg/m2] 27.34 kg/m2 *H* (07/10/22 8:38 AM) Blood Pressure [90-138/55-84 mm Hg] 159/ 71mm Hg *H* (07/10/22 8:38 AM) Temperature [96.8-100.4 DegF] 97.5 DegF (07/10/22 8:38 AM) Mode of Delivery (Oxygen) Room air (07/10/22 8:38 AM) Blood pressure sites Arm, left (07/10/22 8:38 AM) Temperature Route Temporal (07/10/22 8:38 AM) Dry Weight 60.3 kg (07/10/22 8:38 AM) Weight Obtained Via Standing scale (07/10/22 8:38 AM) Dry Weight Obtained Via Standing scale (07/10/22 8:38 AM) Social History Social History Type Response Smoking Status Never smoker entered on: 06/04/14 Sex Patient Care team information Care Team Personnel Name: Taylor Newell Position: [facility] Onco RN Member Role: Primary Care Nurse Name: Armando Justice RN Position: [facility] ED RN W/OE and Tasks Member Role: Primary Care Nurse Name: Sarah Bales RN Position: [facility] RN Member Role: Primary Care Nurse Name: Naty Pickett RN Position: [facility] PCO RN Member Role: Primary Care Nurse Name: Francesca Day RN Position: [facility] AMB Nurse Member Role: Primary Care Nurse Name: Irene Cotto RN Position: [facility] RN Member Role: Primary Care Nurse Name: Mando Esparza RN Position: [facility] RN Member Role: Primary Care Nurse Name: Kaya Worley RN Position: [facility] RN Member Role: Primary Care Nurse Name: Williams Talley RN Position: [facility] RN Member Role: Primary Care Nurse Name: Kylie Cheng RN Position: [facility] RN Member Role: Primary Care Nurse Name: Andrew Leach RN Position: [facility] SN RN Member Role: Primary Care Nurse Name: Elaine Powell RN Position: [facility] RN Member Role: Primary Care Nurse Name: Kim Gates MD Position: [facility] Outreach Member Role: PCP Address: Address: [address] [place] [id number] Name: Janice Norwood RN Position: [facility] RN Member Role: Primary Care Nurse Name: Rakesh Barriga RN Position: [facility] RN Member Role: Primary Care Nurse Name: Marla Bell RN Position: [facility] Industrial Health And Safety Professor Member Role: Primary Care Nurse Name: Allyson Bales RN Position: [facility] RN Member Role: Primary Care Nurse Name: Charo Romano RN Position: [facility] SN RN Member Role: Primary Care Nurse Name: Patito Levin RN Position: [facility] RN Member Role: Primary Care Nurse Name: Elaine Hannon RN Position: [facility] RN Member Role: Primary Care Nurse Name: Kathya Pablo RN Position: [facility] Industrial Health And Safety Professor Member Role: Primary Care Nurse Care Team Related Persons Name: CELINACLAUDIA Address: [address] [address]
--- OUTSIDE RECORDS SUMMARY | 2023-12-04 07:57 | XMS_ITS | Continuity of Care Document ---
Author Organization [facility] ter Address [address] [place] [id number]- Care Team Providers Care Billing Coordinator Name Role Phone Kim Gates MD Primary Care Physician Encounter [facility] Date(s): 04/14/23 - 04/14/[address] [address]- Encounter Diagnosis Anxiety(Final) - 04/14/23 Sinusitis(Final) - 04/14/23 Depression(Final) - 04/14/23 Discharge Disposition: A-D/C Home Attending Physician: Wing Jessica MD Admitting Physician: Wing Jessica MD Referring Physician: Not on Staff, Referring [...] 90 tablet, 3 Refills, 05/15/22 16:31:00 EST, [facility], 148.5, cm, 01/10/22 9:59:00 EDT, [...] 7:52:55 EDT Start Date: 09/10/18 Status: Ordered doxycycline hyclate 100 mg oral tablet 1 capsule, By Mouth, Every 12 hours, for 5 days, # 10 capsule, 0 Refills, Acute 04/19/23 20:03:00 EST, 04/14/23 20:03:00 EST, Capsule, [facility]/pharm[facility] #[id number], Partial fill upon patient request if the prescription is for a schedule II opioid drug., 150, cm... Start Date: 04/14/23 Stop Date: 04/19/23 Status: Ordered Farxiga 10 mg oral tablet 1 tablet = 10 mg, By Mouth, Daily, 0 Refills, Maintenance, 01/09/23 10:26:00 EDT, Partial fill uponpatient request if the prescription is for a schedule II opioid drug. Start Date: 01/09/23 Status: Ordered hydrOXYzine pamoate 25 mg oral capsule 1 capsule = 25 mg, By Mouth, 2 times a day, PRN as needed for anxiety, # 10 capsule, 0 Refills, Maintenance, 04/14/23 20:04:00 EST, [facility]/pharmacy #[id number], Partial fill upon patient request if the prescription is for a schedule II opioid drug., 150, cm, 1... 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 Confirmed 03/30/10 Active Mastodynia, left chest wall from scarring Confirmed 10/31/10 Active Postmastectomy Lymphedema Syndrome, left arm Confirmed 10/31/10 Active Recurrent major depressive episodes, moderate Confirmed Active Results Radiology Reports * Exam Date Time Procedure Performing Provider Status 04/14/23 6:[address] Head/Brain W/O Contrast Telly Hoffmann; Auth (Verified) Notes: (CT Head/Brain W/O Contrast) Reason For Exam: Headache(s) RESULT: CT Head/Brain W/O Contrast PROCEDURE: CT Head/Brain W/O Contrast CLINICAL INDICATION: 72 years old Female with Hx of Present Illness: Patient reports non-radiating,diffuse chest pain and head pressure since this morning. Has been experiencing increased anxiety x 2 weeks.; Reason: Headache(s); Clinical Question(s): Tumor Primary; Order Comment:. COMPARISON: Unenhanced CT brain 2010, 2014, 2016 and December 03, 2017. TECHNIQUE: Unenhanced head CT performed with 5 mm contiguous axial images. Coronal reformations also performed. 1.2 mm axial reconstructions using bone algorithm are also provided. Age-based protocolwas used to optimize exposure parameters. FINDINGS: Brain:Moderate unchanged patchy areas of decreased attenuation in the periventricular and subcortical white matter of the cerebral hemispheres, in a patient of this age likely the sequela of chronic microvascular ischemia. No other areas of abnormal parenchymal attenuation or space occupying lesions. Extraaxial spaces: Moderate unchanged cortical cerebral and cerebellar atrophy. No evidence of hydrocephalus. No extra-axial hemorrhage, fluid collections or masses. No intracranial arterial calcifications. Visualized orbits: Unremarkable. Paranasal sinuses and mastoids: Paranasal sinuses are clear as visualized except for mild new mucosal thickening of several middle ethmoid air cells bilaterally.. Mastoid air cells are clear bilaterally. Calvarium: No evidence of fracture. IMPRESSION: 1. No evidence of acute intracranial abnormality. 2. Moderate atrophy and moderate white matter ischemic changes, unchanged. 3. Mild new bilateral ethmoid sinusitis. Thank you for allowing me to participate in the care of this patient. WSN: [id number] Ordering Physician: Gogo Diaz Dictated By: Merlin Arambula MD Dictated Date/Time: 04/14/23 7:06 pm Reviewed By: Merlin Arambula MD Signed By: Merlin Arambula MD Signed Date/Time: 04/14/23 7:06 pm Transcribed By: BECKY Transcribed Date/Time: 04/14/23 7:02 pm Vital Signs Most recent to oldest [Reference Range]: 1 2 3 Height 150 cm (04/14/23 7:53 PM) 150 cm (04/14/23 2:23 PM) 150 cm (04/14/23 1:08 PM) Oxygen Saturation [94-100 %] 96 % (04/14/23 7:53 PM) 99 % (04/14/23 4:30 PM) 99 % (04/14/23 2:23 PM) Pulse Rate [55-90 bpm] 79 bpm (04/14/23 7:53 PM) 76 bpm (04/14/23 4:30 PM) 78 bpm (04/14/23 2:23 PM) Blood Pressure [90-138/55-84 mm Hg] 142/61mm Hg *H* (04/14/23 7:53 PM) 139/62mm Hg *H* (04/14/23 4:30 PM) 142/67mm Hg *H* (04/14/23 2:23 PM) Respiratory Rate [16-30 br/min] 18 br/min (04/14/23 7:53 PM) 18 br/min (04/14/23 4:30 PM) 16 br/min (04/14/23 1:05 PM) Temperature [96.8-100.4 DegF] 99.2 DegF (04/14/23 7:53 PM) 98.4 DegF (04/14/23 2:23 PM) 98.6 DegF (04/14/23 1:05 PM) Mode of Delivery (Oxygen) Room air (04/14/23 7:53 PM) Room air (04/14/23 4:30 PM) Room air (04/14/23 2:23 PM) Blood pressure sites Arm, right (04/14/23 7:53 PM) Arm, right (04/14/23 4:30 PM) Arm, right (04/14/23 2:23 PM) Temperature Route Oral (04/14/23 7:53 PM) Oral (04/14/23 2:23 PM) Oral (04/14/23 1:05 PM) Dry Weight 55.8 kg (04/14/23 2:23 PM) 55.8 kg (04/14/23 1:08 PM) 55.8 kg (04/14/23 1:05 PM) Dry Weight Obtained Via Patient/family s tated (04/14/23 1:05 PM) Social History Social History Type Response Smoking Status Never smoker entered on: 06/04/14 Sex EKG study * Event Display: ECG 12-Lead Authored Date: Please click on pdf link to open report * Event Display: ECG 12-Lead Authored Date: Ventricular Rate: 86 BPM Atrial Rate: 86 BPM P-R Interval: 136 ms QRS Duration: 88 ms Q-T Interval: 364 ms QTC Calculation(Bazett): 435 ms P [place]: 44 degrees R [place]: -8 degrees T [place]: 63 degrees Normal sinus rhythm Moderate voltage criteria for LVH, may be normal variant ( R in aVL , Kofi product ) Borderline ECG When compared with ECG of 24-MAR-2023 13:28, No significant change was found Confirmed by DESTIN ARZATE MD ([id number]) on 04/14/2023 2:16:39 PM [place]: DESTIN ARZATE MD Note * Gogo Diaz MD: PERFORM Event Display: Patient Education Leaflets Authored Date: Anxiety Reaction ?? [id number] Reacci??n de ansiedad Todos sentimos algo de ansiedad cuando creemos que puede pasar algo rogers. Es jennifer respuesta normal frente al estr??s. La mayor??a de las veces, solo provoca jennifer reacci??n leve. Sin embargo, puede interferir en la jumana diaria si se vuelve m??s intensa. En algunos casos, es posible que no pueda distinguir qu?? le causa ansiedad. Al parecer, la ansiedad tiene desencadenantes f??sicos y mentales. Es posible que sufra estr??s por problemas en casa o en la carlos. O dav por relaciones laborales y sociales. La ansiedad suele ser hereditaria. Es decir que puede ser gen??abdelrahman. Angie jennifer reacci??n de ansiedad, es posible que se sienta de la siguiente manera: ??? Impotente o indefenso ??? Nervioso ??? Deprimido ??? Irritable El cuerpo puede manifestar signos de ansiedad de muchas maneras. Puede presentar lo siguiente: ??? Sequedad en la boca ??? Temblores ??? Mareos ??? Debilidad ??? Dificultad para respirar ??? Respiraci??n acelerada ??? Presi??n en el pecho ??? Sudoraci??n ??? Dolor de nacny ??? N??useas ??? Diarrea ??? Cansancio ??? Incapacidad de dormir ??? Problema sexual Cuidados en el hogar Intente identificar aquellas cosas que le generan ansiedad. Es posible que no gosia obvias. Pueden incluir lo siguiente: ??? Complicaciones diarias de la jumana cotidiana. Estas incluyen situaciones emily embotellamientos, citas a las que no pudo asistir o problemas con el autom??meron. ??? Cambios de jumana importantes. Incluyen cambios positivos, emily el nacimiento de un beb?? o un ascenso laboral. O dav cambios dif??ciles, emily la p??rdida de un trabajo o de un ser querido. ??? Sobrecarga. [place] significa sentir que tiene demasiadas responsabilidades. Y que no puede ocuparse de todas. ??? Frustraci??n. Puede que sienta que no tiene nada bajo control ni opciones. Es posible que sienta que shubham problemas no tienen soluci??n. Observe c??mo preciado cuerpo reacciona al estr??s. [place] le ayudar?? a maría medidas antes de que el estr??s provoque ansiedad. Cuando sea posible, chel los cambios necesarios para reducir las mcclain de estr??s. Sin embargo, muchas veces, el estr??s no se puede prevenir. Es importante que aprenda a controlar el estr??s para disminuir la ansiedad. Existen varios m??todos demostrados que funcionan dav para reducir la ansiedad. Entre ellos, se encuentran los siguientes: ??? Ejercicio ??? [place] nutrici??n ??? Dormir lo suficiente ??? T??cnicas de relajaci??n ??? Ejercicios de respiraci??n ??? Visualizaci??n ??? Biorretroalimentaci??n ??? Meditaci??n ??? Terapia ??? Medicamentos Consulte con preciado proveedor de atenci??n m??dica para obtener m??s informaci??n. Tambi??n puede buscar informaci??n en Internet o en la biblioteca o la librer??a del lugar donde vive. Hay muchos librosen distintos formatos que tratan gifty gerry. ?? Atenci??n de seguimiento Si christo que la ansiedad no mejora con el autocuidado, llame al proveedor de atenci??n m??dica. Tambi??n, puede programar jennifer jon m??dica con un consejero. Louis vez necesite terapia a corto plazo o medicamentos para controlar la ansiedad. ?? Cu??ndo llamar al?? 911 Llame al?? 911 si tiene algo de lo siguiente: ??? Dificultad para respirar ??? Confusi??n ??? Somnolencia o dificultad para despertarse ??? Desmayos ??? Frecuencia card??cam acelerada ??? Convulsiones ??? Dolor de pecho nuevo que se vuelve intenso, dura m??s tiempo o comienza a extenderse hacia el hombro, el brazo, el emanuel, la maria e??bula o la espalda Si tiene pensamientos de hacerse da??o a usted mismo o a otras personas, llame o env??e un mensaje al 988 . Se lo pondr?? en contacto con un consejero de crisis capacitado de la L??hortencia Nacional de Prevenci??n del Suicidio. Adem??s, hay jennifer opci??n de chat en l??hortencia disponible en www.suicidepreventionlifeline.org. Tambi??n puede llamar a la l??hortencia de ayuda al [phone] ([phone]). La l??neaes gratuita y funciona las 24??horas, los 7??d??as de la semana. ?? Cu??ndo debe buscar atenci??n m??dica Llame al proveedor de atenci??n m??dica de inmediato ante cualquiera de los siguientes signos o s??ntomas: ??? S??ntomas que no mejoran o empeoran, emily sentimientos de desesperanza o tristeza abrumadora ??? Dolor de nancy intenso que no se noemi con el descanso ni con analg??sicos suaves Puede comunicarse con la Red Nacional de Prevenci??n del Suicidio (National Suicide Prevention Lifeline) al [phone] ([phone]). La l??hortencia de ayuda est?? disponible las 24??horas, los 7??d??as de la semana y ofrece apoyo gratuito y confidencial. La l??hortencia de ayuda tambi??n tiene un chat en l??hortencia disponible en www.suicidepreventionlifeline.org. ?? Last Reviewed Date: 2021 ?? [phone] [employer]. Todos los derechos reservados. Esta informaci??n no pretende sustituir la atenci??n m??dica profesional. S??lo preciado m??dico puede diagnosticar y tratar un problema de negrita. ?? * Gogo Diaz MD: PERFORM Event Display: Patient Education Leaflets Authored Date: [id number] Sinusitis (Antibiotic Treatment) ?? [id number] Sinusitis (tratamiento con antibi??ticos) Los senos paranasales son cavidades llenas de aire dentro de los huesos de la ken. Se conectan conla parte interna de la nariz.??La sinusitis es jennifer inflamaci??n del tejido que recubre la cavidad de los senos paranasales. Josafat inflamaci??n puede presentarse angie un resfr??o. Tambi??n puede ocurrir debido a la alergia al polen y a otras part??culas que haya en el aire. La sinusitis puede provocar congesti??n de los senos paranasales y sensaci??n de tener la nancy pesada . Jennifer infecci??n delos senos paranasales causa fiebre, dolor de nancy y dolor en la ken. Suele genesis secreciones verdosas o amarillentas de la nariz o por la parte posterior de la garganta (goteo posnasal). Se recetan antibi??ticos para tratar esta afecci??n. Cuidados en el hogar ??? [place] todos los antibi??ticos seg??n las indicaciones. No deje de usarlos, incluso si se siente mejor. ??? Gissel elias agua, t?? caliente y otros l??quidos seg??n le haya indicado el proveedor de atenci??n m??dica. Eso diluye la mucosidad. Tambi??n puede facilitar el drenaje de los senos paranasales. ??? Aplique calor sobre las ??reas de la ken que le duelen. Use jennifer toalla empapada en iroquois. Tambi??n puede pararse en la ducha y dejar que le caiga el iroquois sobre la ken. Utilizar un vaporizador y pomada de mentol angie la noche tambi??n puede ayudar aaliviar los s??ntomas.? Un expectorante que contenga guaifenesina ayuda a diluir la mucosidad y a facilitar el drenaje de los senos paranasales. Hable con preciado proveedor o preciado farmac??utico antes de usar medicamentos de venta angeles si tiene alguna pregunta sobre los efectos secundarios. ??? Puedeusar alg??n descongestivo de venta angeles, a menos que le hayan recetado alg??n medicamento parecido. Los aerosoles nasales son los que tienen efecto m??s r??pido. Use alguno que contenga fenilefrina u oximetazolina. Daron, sople la nariz suavemente. Luego use el aerosol. No use estos medicamentoscon mayor frecuencia que la indicada en el prospecto. Si lo hace, los s??ntomas pueden empeorar. [place] bi??n puede maría comprimidos que contengan pseudoefedrina. No use productos que combinen diferentes medicamentos. Podr??an aumentar los efectos secundarios. Aster los prospectos. Tambi??n puede pedir ayuda al farmac??utico. (Las personas con presi??n arterial vale no deber??an usar descongestivos. Estos pueden subir la presi??n arterial). Hable con preciado proveedor o preciado farmac??utico si tiene alguna pr egunta. ??? Los antihistam??nicos de venta angeles son ??tiles si la sinusitis se debe a jennifer alergia.Hable con preciado proveedor o preciado farmac??utico si tiene alguna pregunta respecto del medicamento. ??? Puede aliviar los s??ntomas con lavajes o irrigaci??n nasal. Es importante que use estos productos de la forma indicada. Use agua est??ril o soluci??n salina est??ril y no agua de grifo. El agua de grifo puede contener g??rmenes que causen jennifer infecci??n en el cerebro. No enjuague con demasiada presi??n. Puede propagar la infecci??n a otras zonas de los senos paranasales o la nancy. Hable con preciado proveedor de atenci??n m??dica o farmac??utico si tiene dudas sobre estos productos. ??? Puede usar paracetamol o ibuprofeno para controlar el dolor, a menos que le hayan recetado otro analg??sico. Si tiene jennifer enfermedad cr??loraine del h??gado o de los ri??ones, o alguna vez tuvo ??lceras estomacales, hable con preciado proveedor de atenci??n m??dica antes de maría estos medicamentos. [place] le d?? aspirinaa un malcom de 18??a??os sin consultar daron con preciado proveedor de atenci??n m??dica. Puede causar da??os graves al h??gado. ??? No fume. [place] puede empeorar los s??ntomas. ?? Visita de seguimiento Asista a las citas de seguimiento con preciado proveedor de atenci??n m??dica seg??n le hayan indicado. ?? Cu??ndo buscar atenci??n m??dica Llame a preciado proveedor de atenci??n m??dica si ocurre algo de lo siguiente: ??? Dolor de nancy o dolor en la ken que empeora ??? Los s??ntomas no desaparecen en 10??d??as ??? Fiebre de??100.4?F (38?C)??o superior, o seg??n le indique preciado proveedor de atenci??n m??dica ?? Cu??ndo llamar al?? 911 Llame al?? 911 si ocurre algo de lo siguiente: ??? Convulsiones ??? Dificultad para respirar ??? Sesiente mareado o d??franca ??? U??as, piel o labios de color azulado, rubi o shelia ??? Dolor intenso que no se noemi ??? Rigidez en el emanuel ??? Somnolencia inusual o confusi??n ??? Problemas de la vista; por ejemplo, visi??n borrosa o doble ??? Hinchaz??n de la frente o los p??rpados ?? Prevenci??n Puede adoptar las siguientes medidas para prevenir jennifer infecci??n: ??? Mantenga buenos h??bitos higi??nicos de lavado de eriberto. ??? Evite el contacto cercano con personas que tengan dolor de garganta, resfriados u otras infecciones de las v??as respiratorias superiores. ??? No fume y evite exponerse al humo de cigarrillos de otras personas. ??? Mantenga al d??a todas shubham vacunas. ?? Last Reviewed Date: 2021 ?? [id number] [employer]. Todos los derechos reservados. Esta informaci??n no pretende sustituir la atenci??n m??dica profesional. S??lo preciado m??dico puede diagnosticar y tratar un problema de negrita. ?? * Emily ESPINOZA, Gogo: PERFORM Event Display: Patient Education Leaflets Authored Date: Sinus Headache ?? [id number] Dolor de nancy por sinusitis Los senos paranasales son cavidades llenas de aire en los huesos de la ken. Se conectan con la parte interna de la nariz. La sinusitis es jennifer inflamaci??n del tejido que recubre la cavidad del seno paranasal. La inflamaci??n de los senos paranasales se puede producir angie un resfriado o jennifer rinitis al??rgica (alergias al polen y otras part??culas en el aire). Puede provocar s??ntomas de congesti??n y plenitud sinusal, y quiz??s jennifer ligera fiebre. Por lo general, existe infecci??n cuando tambi??n hay dolor facial o de nancy. Adem??s, puede genesis secreci??n marleen o amarillenta de la nariz o en la parte posterior de la garganta (goteo retronasal). Es posible que le receten antibi??ticos para tratar esta afecci??n. El dolor de nancy por sinusitis puede causar dolor en diferentes partes del cuerpo, seg??n el senoque est?? infectado. Puede genesis dolor en las sienes, la frente, la parte superior de la nancy, detr??s o alrededor de los ojos, en los p??mulos o en los dientes superiores. Notar?? un poco de alivio cambiando de posici??n. Pruebe sent??ndose con la espalda recta o acostarse. Cuidados en el hogar Estas pautas lo ayudar??n a cuidarse en el hogar: ??? Gissel elias agua, t?? caliente y otros l??quidos para mantenerse dav hidratado. [place] diluye la mucosidad y favorece la secreci??n nasal. ??? Aplique calor a las zonas dolorosas de la ken. Use jennifer toalla empapada en iroquois. O, de pie en la ducha, dirija el chorro caliente hacia la ken. Esta es jennifer buena forma de inhalar vapor de agua tibia y calentar la ken simult??neamente. C??brase la boca y la nariz con las eriberto para poder respirar. ??? Use un vaporizador de alysia fr??a de noche. Consuma caramelos duros de menta, mentol o eucaliptos angie el d??a. ??? Puede utilizar un expectorante de venta angeles que contenga guaifenesinapara ayudar a diluir la mucosidad. Tambi??n ayuda a estimular la descongesti??n de los senos paranasales. ??? Puede utilizar descongestivos de venta sin receta a menos que le hayan recetado un medicamento parecido. Los aerosoles nasales o gotas son los que m??s r??pido act??an. Use alguno que contenga fenilefrina u oximetazolina. Sople la nariz con cuidado para eliminar la mucosidad. Luego, aplique el aerosol o las gotas. No utilice estos medicamentos con mayor frecuencia que la indicada en la etiqueta, ni angie m??s de tae d??as. [place] puede empeorar los s??ntomas con el tiempo. Los aerosol es nasales o las gotas recetadas por preciado proveedor de atenci??n m??dica generalmente no tienen estosl??mites. Consulte con preciado proveedor o farmac??utico. Tambi??n puede usar tabletas que tengan pseudoefedrina. Los efectos secundarios de los descongestivos orales tienden a ser peores que los de los aerosoles nasales o las gotas y pueden impedir que los utilice. Muchos medicamentos para la sinusitiscombinan ingredientes, lo que puede aumentar los efectos secundarios. Adem??s, si est?? tomando un medicamento combinado con otro medicamento, aseg??rese de no maría jennifer dosis doble de algo por error. Aster las etiquetas o pida ayuda al farmac??utico. Si tiene presi??n arterial vale, jennifer enfermedad del coraz??n, glaucoma o problemas de pr??stata, consulte con preciado proveedor antes de utilizar descongestivos. ??? Los antihistam??nicos podr??an resultar ??tiles si preciado sinusitis es de origen al??rgico. Puede maría clorfeniramina y difenhidramina de venta angeles, laurie estas pueden causarle somnolencia. No las tome si tiene glaucoma o dificultades al orinar debido a jennifer pr??stata agrandada. Los antihistam??nicos de venta angeles que contengan loratadina y cetirizina pueden causarle menos somnolencia. Estos pueden ser jennifer mejor opci??n para uso diario. ??? Cuando la sinusitis se debe a alergias, un enjuague nasal de soluci??n salina puede aliviarla. La soluci??n salina reduce la hinchaz??n y limpia el exceso de mucosidad. Lo que permite que los senos nasales drenen. En la mayor??a de las farmaciasse venden kits ya listos. Los kits tienen paquetes premezclados de erik y un dispositivo de irrigaci??n. Si le recetaron antibi??ticos para tratar jennifer infecci??n aguda de los senos paranasales, consulte a preciado proveedor antes de usar un enjuague nasal. [place] es para corroborar si es jennifer opci??n madsen para usted. ??? Puede usar medicamentos de venta angeles para controlar el dolor y la fiebre, a menos que le hayan recetado otro analg??sico. Consulte a preciado proveedor antes de usar ibuprofeno o paracetamol si tiene jennifer enfermedad cr??loraine del h??gado o de los ri??ones. Tambi??n hable con el proveedor si alguna vez tuvo ??lceras estomacales. [place] le d?? aspirinas a alguien malcom de 19??a??os a menos que se lo indique el proveedor. Puede causar jennifer afecci??n que puede poner en riesgo la jumana de la pe rsona, llamada s??ndrome de Susan. ??? Si le recetaron antibi??ticos, t??melos todos, aunque se sienta mejor despu??s de unos d??as. ?? Atenci??n de seguimiento Programe jennifer visita de seguimiento con el proveedor de atenci??n m??dica seg??n le indicaron o si los s??ntomas no mejoran en jennifer semana. ?? Cu??ndo llamar al 911 Llame al 911si ocurre algo de lo siguiente: ??? Somnolencia inusual o confusi??n ??? Hinchaz??n de la frente o los p??rpados ??? Problemas de la vista, emily visi??n borrosa o doble ??? Convulsiones ??? Sensaci??n de muerte ??? Dificultad para respirar ??? Sensaci??n de mareo ??? P??rdida del conocimiento o desmayos ?? Cu??ndo buscar atenci??n m??dica Llame al proveedor de atenci??n m??dica de inmediato ante cualquiera de las siguientes situaciones:??? Dolor de nancy o dolor en los senos paranasales que empeora ??? Rigidez en el emanuel ??? Fiebre de 100.4?F (38?C) o superior, o seg??n le haya indicado el proveedor ??? Sangrado de la nariz o la garganta ?? Last Reviewed Date: 2021 ?? [employer]. Todos los derechos reservados. Esta informaci??n no pretende sustituir la atenci??n m??dica profesional. S??lo preciado m??dico puede diagnosticar y tratar un problema de negrita. ?? Patient Care team information Care Team Personnel Name: Taylor Newell Position: [facility] RN Member Role: Primary Care Nurse Name: Armando Justice RN Position: [facility] RN W/OE and Tasks Member Role: Primary Care Nurse Name: Sarah Bales RN Position: [facility] RN Member Role: Primary Care Nurse Name: Naty Holt RN Position: [facility] RN Member Role: Primary Care Nurse Name: Francesca Day RN Position: [facility] AMB Nurse Member Role: Primary Care Nurse Name: Irene Cotto RN Position: [facility] RN Member Role: Primary Care Nurse Name: Mando Esparza RN Position: [facility] RN Member Role: Primary Care Nurse Name: Williams Talley RN Position: [facility] RN Member Role: Primary Care Nurse Name: Kylie Cheng RN Position: [facility] RN Member Role: Primary Care Nurse Name: Andrew Leach RN Position: [facility] SN RN Member Role: Primary Care Nurse Name: Elaine Powell RN Position: [facility] RN Member Role: Primary Care Nurse Name: Kim Gates MD Position: [facility] Outreach Member Role: PCP Address: Address: [address] [place] [address]- Name: Janice Norwood RN Position: [facility] RN Member Role: Primary Care Nurse Name: Rakesh Barriga RN Position: [facility] RN Member Role: Primary Care Nurse Name: Marla Bell RN Position: [facility] Welfare Supervisor Member Role: Primary Care Nurse Name: Eddy Castle RN Position: [facility] ED RN W/OE and Tasks Member Role: Primary Care Nurse Name: Allyson Bales RN Position: [facility] RN Member Role: Primary Care Nurse Name: Charo Romano RN Position: [facility] SN RN Member Role: Primary Care Nurse Name: Patito Levin RN Position: [facility] RN Member Role: Primary Care Nurse Name: Elaine Hannon RN Position: [facility] RN Member Role: Primary Care Nurse Name: Kathya Pablo RN Position: [facility] Welfare Supervisor Member Role: Primary Care Nurse Name: Gogo Diaz MD Position: [facility] Resident Member Role: ED Resident Address: Address: [address] [place] [address]- Name: Wing Jessica MD Position: [facility] ED Medicine MD Member Role: Admitting Physician Address: Address: [address] [place] [address]- [place] Name: Gracie Bradley Position: [facility] ED TA [facility] Name: Theron Johnson RN Position: S ED RN W/OE and Tasks Member Role: Patient Care Provider Care Team Related Persons Name: CLAUDIA PATRICK Address: [address] [address]
--- OUTSIDE RECORDS SUMMARY | 2023-12-04 07:57 | XMS_ITS | Continuity of Care Document ---
Author Organization [facility] ter Address [address] [place] [address]- Care Team Providers Care Inspector Experimental Assembly Name Role Phone Kim Gates MD Primary Care Physician [phone] Encounter [facility] Date(s): 04/30/23 - 05/31/[address] [id number] Attending Physician: Ramiro Palma DO Admitting Physician: Ramiro Palma DO Referring Physician: Ramiro Palma DO Allergies, Adverse Reactions, Alerts Substance Reaction Severity [...] Care Team Personnel Name: Taylor Newell Position: [facility] Onco RN Member Role: Primary Care Nurse Name: Naty Pierson RN Position: [facility] RN Member Role: Primary Care Nurse Name: Melinda Morelos RN Position: [facility] RN Member Role: Primary Care Nurse Name: Sophia Pereira RN Position: [facility] RN Member Role: Primary Care Nurse Name: Armando Justice RN Position: [facility] ED RN W/OE and Tasks Member Role: Primary Care Nurse Name: Arabella He RN Position: [facility] RN Member Role: Primary Care Nurse Name: Sarah Bales RN Position: [facility] RN Member Role: Primary Care Nurse Name: Naty Holt RN Position: [facility] RN Member Role: Primary Care Nurse Name: Allyson Rodriguez RN Position: [facility] RN Member Role: Primary Care Nurse Name: Barbara Ochoa RN Position: [facility] RN Member Role: Primary Care Nurse Name: Linda Manzano RN Position: [facility] RN Member Role: Primary Care Nurse Name: Francesca Day RN Position: [facility] AMB Nurse Member Role: Primary Care Nurse Name: Radha Zepeda RN Position: [facility] RN Member Role: Primary Care Nurse Name: Gwendolyn Petersen RN Position: [facility] RN Member Role: Primary Care Nurse Name: Mando Esparza RN Position: [facility] RN Member Role: Primary Care Nurse Name: Alida Cam Position: [facility] RN Member Role: Primary Care Nurse Name: Alexandra Huff RN Position: [facility] RN Member Role: Primary Care Nurse Name: Williams Talley RN Position: [facility] RN Member Role: Primary Care Nurse Name: Gina Teran RN Position: [facility] RN Member Role: Primary Care Nurse Name: Kylie Cheng RN Position: [facility] RN Member Role: Primary Care Nurse Name: Andrew Leach RN Position: [facility] SN RN Member Role: Primary Care Nurse Name: Kirsten Suarez RN Position: [facility] RN Member Role: Primary Care Nurse Name: Rick Garcia RN Position: [facility] RN Member Role: Primary Care Nurse Name: Keira Canada RN Position: [facility] RN Member Role: Primary Care Nurse Name: Haley Alexander Position: [facility] RN Member Role: Primary Care Nurse Name: Elaine Powell RN Position: [facility] RN Member Role: Primary Care Nurse Name: Osmel Torres RN Position: [facility] RN Member Role: Primary Care Nurse Name: Kim Gates MD Position: [facility] Outreach Member Role: PCP Address: Address: [address] [place] [id number] Name: Janice Norwood RN Position: [facility] RN Member Role: Primary Care Nurse Name: Rakesh Barriga RN Position: [facility] RN Member Role: Primary Care Nurse Name: Gwendolyn Renteria LPN Position: [facility] RN Member Role: Primary Care Nurse Name: Marla Bell RN Position: [facility] Bioprocess Engineer Member Role: Primary Care Nurse Name: Danielle Iraheta RN Position: [facility] RN Member Role: Primary Care Nurse Name: Eddy Castle RN Position: [facility] ED RN W/OE and Tasks Member Role: Primary Care Nurse Name: Kavya Gaytan RN Position: [facility] RN Member Role: Primary Care Nurse Name: Allyson aBles RN Position: [facility] RN Member Role: Primary Care Nurse Name: Bryce Javier RN Position: [facility] RN Member Role: Primary Care Nurse Name: Charo Romano RN Position: [facility] SN RN Member Role: Primary Care Nurse Name: Patito Levin RN Position: [facility] RN Member Role: Primary Care Nurse Name: Elaine Hannon RN Position: [facility] RN Member Role: Primary Care Nurse Name: Sierra Mcqueen RN Position: [facility] RN Member Role: Primary Care Nurse Name: Kathya Pablo RN Position: [facility] Bioprocess Engineer Member Role: Primary Care Nurse Care Team Related Persons Name: CLADUIA PATRICK Address: home [address] [place] [address]
--- OUTSIDE RECORDS SUMMARY | 2023-12-04 07:57 | XMS_ITS | Continuity of Care Document ---
Author Organization [facility] ter Address [address] [place] [address]- Care Team Providers Care Business Technology Architect Name Role Phone Kim Gates MD Primary Care Physician [facility] Date(s): 11/12/23 - 11/12/[address] [address]- Discharge Disposition: A-Error Chart/Home (ED Only) Attending Physician: Not on Staff, Attending MD Admitting Physician: Not on Staff, Admitting MD Referring Physician: Not on Staff, Referring [...] 10:51:00 EDT, Inhaler, Route to Pharmacy Electronically, NCPDP_[id number], [facility], 150, cm, 07/24/23 7:21:00 EDT, He... Start Date: 07/26/23 Status: Ordered amLODIPine 5 mg oral tablet 5 mg, By Mouth, Daily, hold if systolic blood pressure is below 120 mmHg, # 90 tablet, Refills 0, Tot. Refills 0, Maintenance, 07/26/23 10:51:00 EDT, Route to Pharmacy Electronically, [facility], Partial fill upon patient request... [...] Maintenance, 07/26/23 10:51:00 EDT,Route to Pharmacy Electronically, [facility], Partial fill upon patient request [...] 0 Refills, Maintenance, 07/26/23 10:51:00 EDT, Tablet, [facility], Partial fill upon patient request [...] Maintenance, 07/26/23 10:51:00 EDT,Route to Pharmacy Electronically, [facility], Partial fill upon patient request [...] 0 Refills, Maintenance, 07/26/23 10:51:00 EDT, Tablet, [facility], Partial fill upon patient request [...] 0 Refills, Maintenance, 07/26/23 10:51:00 EDT, Tablet, [facility], Partial fill upon patient re... Start Date: 07/26/23 Status: Ordered losartan 100 mg oral tablet 1 tablet = 100 mg, By Mouth, Daily, hold if systolic blood pressure is below 120 mmHg, # 90 tablet,0 Refills, Maintenance, 07/26/23 10:51:00 EDT, Tablet, [facility], Partial fill upon patient request if the prescription is for a... Start Date: 07/26/23 Status: Ordered mirtazapine 30 mg oral tablet, disintegrating 1 tablet = 30 mg, By Mouth, Daily at bedtime, # 90 tablet, 0 Refills, Maintenance, 07/26/23 10:51:00 EDT, DIS Tablet, [facility], Partial fill upon patient request if the prescription is for a schedule II opioid drug., 150, cm, 04... Start Date: 07/26/23 Status: Ordered multivitamin with minerals Multiple Vitamins with Minerals oral tablet 1 tablet, By Mouth, Daily, # 90 tablet, 0 Refills, Maintenance, 07/26/23 10:51:00 EDT, Tablet, [facility], Partial fill upon patient request [...] 07/26/23 10:51:00 EDT, Route to Pharmacy Electronically, [facility], Partial fill upon patient request if the prescription is for a schedule I... Start Date: 07/26/23 Status: Ordered thiamine 100 mg oral tablet 100 mg, By Mouth, Daily, # 90 tablet, Refills 0, Tot. Refills 0, Maintenance, 07/26/23 10:51:00 EDT, Route to Pharmacy Electronically, [facility], Partial fill upon patient request if the prescription is for a schedule II opioid d... Start Date: 07/26/23 Status: Ordered traZODone 50 mg oral tablet 50 mg, By Mouth, Daily at bedtime, PRN, # 30 tablet, Refills 0, Tot. Refills 0, Maintenance, Insomnia, 07/26/23 10:51:00 EDT, Route to Pharmacy Electronically, [facility], Partial fill upon patient request [...] Neoplasm of Left Breast, pT1c, pNX, IDC, ER/RI positive recurrent in 2008 after initial diagnosis [...] Care Team Personnel Name: Taylor Newell Position: [facility] Onco RN Member Role: Primary Care Nurse Name: Naty Pierson RN Position: [facility] RN Member Role: Primary Care Nurse Name: Kirsten Fernandes RN Position: [facility] RN Supv Member Role: Primary Care Nurse Name: Melinda Morelos RN Position: [facility] RN Member Role: Primary Care Nurse Name: Sophia Pereira RN Position: [facility] RN Member Role: Primary Care Nurse Name: Rhonda Sapp RN Position: [facility] RN Member Role: Primary Care Nurse Name: Tammy Prescott RN Position: [facility] RN Member Role: Primary Care Nurse Name: Armando Justice RN Position: [facility] ED RN W/OE and Tasks Member Role: Primary Care Nurse Name: Arabella He RN Position: [facility] RN Member Role: Primary Care Nurse Name: Yoli Bryant RN Position: [facility] RN Member Role: Primary Care Nurse Name: Sarah Bales RN Position: [facility] RN Member Role: Primary Care Nurse Name: Naty Holt RN Position: [facility] RN Member Role: Primary Care Nurse Name: Kim Gonzalez RN Position: [facility] RN Member Role: Primary Care Nurse Name: Allyson Rodriguez RN Position: [facility] RN Member Role: Primary Care Nurse Name: Avril Wright RN Position: [facility] RN Member Role: Primary Care Nurse Name: Linda Manzano RN Position: [facility] RN Member Role: Primary Care Nurse Name: Chris Lobo RN Position: [facility] RN Member Role: Primary Care Nurse Name: Emilee Goldstein RN Position: [facility] RN Member Role: Primary Care Nurse Name: Francesca Day RN Position: [facility] AMB Nurse Member Role: Primary Care Nurse Name: Eliceo Ortiz RN Position: [facility] RN Member Role: Primary Care Nurse Name: Gwendolyn Pteersen RN Position: [facility] RN Member Role: Primary Care Nurse Name: Mando Esparza RN Position: [facility] RN Member Role: Primary Care Nurse Name: Alida Cam RN Position: [facility] RN Member Role: Primary Care Nurse Name: Angella Lehman RN Position: [facility] RN Member Role: Primary Care Nurse Name: Alexandra Huff RN Position: [facility] RN Member Role: Primary Care Nurse Name: Kaya Worley RN Position: [facility] RN Member Role: Primary Care Nurse Name: Williams Talley RN Position: [facility] RN Member Role: Primary Care Nurse Name: Kylie Cheng RN Position: [facility] RN Member Role: Primary Care Nurse Name: Andrew Leach RN Position: [facility] SN RN Member Role: Primary Care Nurse Name: Kirsten Suarez RN Position: [facility] RN Member Role: Primary Care Nurse Name: Naty Collazo RN Position: [facility] RN Member Role: Primary Care Nurse Name: Keira Canada RN Position: [facility] RN Member Role: Primary Care Nurse Name: Karley Morgan Position: [facility] RN Member Role: Primary Care Nurse Name: Haley Alexander Position: [facility] RN Member Role: Primary Care Nurse Name: Elaine Powell RN Position: [facility] RN Member Role: Primary Care Nurse Name: Osmel Torres RN Position: [facility] RN Member Role: Primary Care Nurse Name: Kim Gates MD Position: [facility] Outreach Member Role: PCP Address: Address: [address] [place] [address]- Name: Can Coto RN Position: [facility] RN Member Role: Primary Care Nurse Name: Janice Norwood RN Position: [facility] RN Member Role: Primary Care Nurse Name: Chucky Chandler RN Position: [facility] RN Member Role: Primary Care Nurse Name: Rakesh Barriga RN Position: [facility] RN Member Role: Primary Care Nurse Name: Gwendolyn Renteria LPN Position: [facility] RN Member Role: Primary Care Nurse Name: Marla Bell RN Position: [facility] Claim Clerk Member Role: Primary Care Nurse Name: Danielle Iraheta RN Position: [facility] RN Member Role: Primary Care Nurse Name: Eddy Castle RN Position: [facility] ED RN W/OE and Tasks Member Role: Primary Care Nurse Name: Laura Loving RN Position: [facility] RN Member Role: Primary Care Nurse Name: Kavya Gaytan RN Position: [facility] RN Member Role: Primary Care Nurse Name: Allyson Bales RN Position: [facility] RN Member Role: Primary Care Nurse Name: Bryce Javier RN Position: [facility] RN Member Role: Primary Care Nurse Name: Charo Romano RN Position: [facility] SN RN Member Role: Primary Care Nurse Name: Patito Levin RN Position: [facility] RN Member Role: Primary Care Nurse Name: Elaine Hannon RN Position: [facility] RN Member Role: Primary Care Nurse Name: Sierra Mcqueen RN Position: [facility] RN Member Role: Primary Care Nurse Name: Kathya Pablo RN Position: [facility] Claim Clerk Member Role: Primary Care Nurse Care Team Related Persons Name: CLAUDIA PATRICK Address: [address] [place] [address]
--- OUTSIDE RECORDS SUMMARY | 2023-12-04 07:57 | XMS_ITS | Continuity of Care Document ---
Author Organization [facility] Address [address] [place] [address]- Care Team Providers Care Thread Laster Name Role Phone Kim Gates MD Primary Care Physician Encounter [facility] Date(s): 03/25/20 - 04/24/20 [facility] [address], [place] [address] Attending Physician: Derek Barnett Admitting Physician: AdmDerek avalos Referring Physician: AdmtrDerek Allergies, Adverse Reactions, Alerts Substance Reaction Severity [...] flu vaccine this season from PCP Medications Saravanan Roldan 100 units/mL subcutaneous solution 30, Subcutaneous Infusion, [...] of Left B reast, pT1c, pNX, IDC, ER/[place] positive 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.(Confirmed) 03/30/10 Active Mastodynia, left chest wall from scarring(Confirmed) 10/31/10 Active Postmastectomy Lymphedema Sy ndrome, left arm(Confirmed) 10/31/10 Active Recurrent major depressive e pisodes, moderate(Confirmed) Active Social History Social History Type Response Smoking Status Never smoker entered on: 06/04/14 Sex
--- OUTSIDE RECORDS SUMMARY | 2023-12-04 07:57 | XMS_ITS | Continuity of Care Document ---
Author Organization [facility] Address [address] [place] [address]- Care Team Providers Care Phototypesetter Operator Name Role Phone Kim Gates MD Primary Care Physician [phone] Encounter [facility] Date(s): 04/03/19 - 04/03/[address] [address]- [facility] Discharge Disposition: A-D/C Home Attending Physician: Efraín Cordero MD Admitting Physician: Efraín Cordero MD Referring Physician: Efraín Cordero MD Allergies, Adverse Reactions, Alerts Substance Reaction [...] flu vaccine this season from PCP Medications aspirin 81 mg oral tablet = 81 mg, By Mouth, Daily, # 30 tablet, 0 Refills, Maintenance, 06/08/16 2:21:25, Tablet Start Date: 06/08/16 Stop Date: 07/08/16 Status: Ordered Basaglar KwikPen 100 units/mL subcutaneous solution = 35 units, Subcutaneous Infusion, 0 Refills, Maintenance, 09/10/18 7:52:55 EDT Start Date: 09/10/18 Status: Ordered cetirizine 10 mg oral tablet 1 tablet = 10 mg, By Mouth, Daily, # 30 tablet, 0 Refills, Maintenance, 09/10/18 7:52:06 EDT, Tablet Start Date: 09/10/18 Status: Ordered Hemorrhoidal Topical 1 applicator, Rectally, 2 times a day, PRN Pain , Mild, 0 Refills, Maintenance, Ointment Start Date: 12/27/17 Status: Ordered Insulin Glargine = 10 units, Subcutaneous Infusion, Daily, 0 Refills, Maintenance, 05/29/18 8:43:35 EST Start Date: 05/29/18 Status: Ordered insulin glargine 100 u/ml subcutaneous solution = 20 units, Subcutaneous Injection, Daily at bedtime, # 10 mL, 0 Refills, Maintenance, 12/27/17 16:34:57 EDT, Injection Start Date: 12/27/17 Status: Ordered Insulin Glargine Inj = 40 units, Subcutaneous Injection, Daily at bedtime, 0 Refills, Maintenance, 05/29/18 8:47:38 EST,Injection Start Date: 05/29/18 Status: Ordered Insulin Lispro 2-10 units, Subcutaneous Injection, 3 times a day before meals, << Sliding Scale Comments >> Call if less than 100 150 - 199 2 units 200 - 249 4 units 250 - 299 6 units 300 - 349 8 units 350 - 399 10 units Call if greater than 40... Start Date: 12/27/17 Status: Ordered insulin lispro 100 u/ml subcutaneous injection = 4 units, Subcutaneous Injection, 3 times a day before meals, # 3 mL, 0 Refills, Maintenance, 12/27/17 16:37:32 EDT, Injection Start Date: 12/27/17 Status: Ordered Januvia 100 mg oral tablet = 100 mg, By Mouth, Daily, # 30 tablet, 0 Refills, Maintenance, 12/27/17 16:39:12 EDT, Tablet Start Date: 12/27/17 Status: Ordered LaMICtal 25 mg oral tablet 50 mg, 2, tablet, By Mouth, 2 times a day, Follow titration schedule discussed with patient, # 120 tablet, Refills 5, Tot. Refills 5, Maintenance, 01/08/18 9:46:18 EDT, Route to Pharmacy Electronically, NCPDP_[id number], [facility]... Start Date: 01/08/18 Stop Date: 07/07/18 Status: Ordered levothyroxine 0.1 mg oral tablet = 100 mcg, By Mouth, Daily, # 30 tablet, 0 Refills, Maintenance, 12/27/17 16:37:56 EDT, Tablet Start Date: 12/27/17 Status: Ordered Mastectomy Bra See Instructions, # 3 each, Refills 0, Tot. Refills 0, Maintenance, History of breast cancer Left mastectomy Diagnosis: 50.912, 02/19/19 12:21:18 EST, Compound Start Date: 02/19/19 Status: Ordered Mastectomy Prosthesis See Instructions, # 1 each, Refills 0, Tot. Refills 0, Maintenance, History of breast cancer Left mastectomy Diagnosis: 50.912, 02/19/19 12:21:56 EST, Compound Start Date: 02/19/19 Status: Ordered metFORMIN 500 mg oral tablet 2 each = 1,000 mg, By Mouth, 2 times a day, # 120 tablet, 0 Refills, Maintenance, 12/27/17 16:38:47EDT, Tablet Start Date: 12/27/17 Status: Ordered NovoLOG FlexPen 100 units/mL subcutaneous solution = 10 units, Subcutaneous Injection, 2 times a day, PRN before meals, # 3 mL, 0 Refills, Maintenance, 09/10/18 7:52:28 EDT, Solution Start Date: 09/10/18 Status: Ordered PROzac 20 mg oral capsule 20 mg, By Mouth, Daily, # 30 capsule, Refills 0, Tot. Refills 0, Maintenance, 12/27/17 16:34:19 EDT, Print Requisition Start Date: 12/27/17 Status: Ordered Remeron 15 mg oral tablet = 37.5 mg, By Mouth, Daily at bedtime, # 30 Doses, 0 Refills, Maintenance, 12/27/17 16:35:22 EDT, Tablet Start Date: 12/27/17 Status: Ordered risperiDONE 1 mg oral tablet 1 mg, By Mouth, Daily at bedtime, # 30 tablet, Refills 0, Tot. Refills 0, Maintenance, 12/27/17 16:35:55 EDT, Print Requisition Start Date: 12/27/17 Status: Ordered simvastatin 40 mg oral tablet 40 mg, By Mouth, Daily at bedtime, # 30 tablet, Refills 0, Tot. Refills 0, Maintenance, 12/27/17 16:36:16 EDT, Print Requisition Start Date: 12/27/17 Status: Ordered traZODone 50 mg oral tablet 25 mg, By Mouth, 2 times a day, may also take one at bedtime prn insomnia, # 60 tablet, Refills 0, Tot. 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, pT1c, pNX, 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.(Confirmed) 03/30/10 Active Mastodynia, left chest wall from scarring(Confirmed) 10/31/10 Active Postmastectomy Lymphedema Sy ndrome, left arm(Confirmed) 10/31/10 Active Recurrent major depressive e pisodes, moderate(Confirmed) Active Vital Signs Most recent to oldest [Reference Range]: 1 2 3 Height 151 cm (04/03/19 8:52 AM) Oxygen Saturation [94-100 %] 92 % *L* (04/03/19 11:25 AM) 92 % *L* (04/03/19 11:06 AM) 92 % *L* (04/03/19 10:53 AM) Pulse Rate [55-90 bpm] 71 bpm (04/03/19 8:52 AM) Blood Pressure [90-138/55-84 mm Hg] 132/76mm Hg (04/03/19 11:06 AM) 139/89mm Hg *H* (04/03/19 10:53 AM) 163/69mm Hg *H* (04/03/19 10:44 AM) Respiratory Rate [16-30 br/min] 19 br/min (04/03/19 11:06 AM) 23 br/min (04/03/19 10:53 AM) 23 br/min (04/03/19 10:44 AM) Temperature [96.8-100.4 DegF] 99.0 DegF (04/03/19 10:53 AM) 98.3 DegF (04/03/19 10:28 AM) 98.9 DegF (04/03/19 8:52 AM) Mode of Delivery (Oxygen) Room air (04/03/19 11:25 AM) Room air (04/03/19 10:53 AM) Room air (04/03/19 10:28 AM) Blood pressure sites Arm, right (04/03/19 8:52 AM) Temperature Route Temporal (04/03/19 10:53 AM) Temporal (04/03/19 10:28 AM) Temporal (04/03/19 8:52 AM) Dry Weight 60 kg (04/03/19 8:52 AM) Social History Social History Type Response Smoking Status Never smoker entered on: 06/04/14 Sex
--- OUTSIDE RECORDS SUMMARY | 2023-12-04 07:57 | XMS_ITS | Continuity of Care Document ---
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 after initial diagnosis [...] Care team information Care Team Personnel Name: Osiris , Taylor Position: [facility] Onco RN Member Role: Primary Care Nurse Name: Naty Pierson RN Position: [facility] RN Member Role: Primary Care Nurse Name: Melinda Morelos RN Position: [facility] RN Member Role: Primary Care Nurse Name: Sophia Pereira RN Position: [facility] RN Member Role: Primary Care Nurse Name: Armando Justice RN Position: [facility] ED RN W/OE and Tasks Member Role: Primary Care Nurse Name: Arabella He RN Position: [facility] RN Member Role: Primary Care Nurse Name: Sarah Bales RN Position: [facility] RN Member Role: Primary Care Nurse Name: Naty Holt RN Position: [facility] RN Member Role: Primary Care Nurse Name: Kim Gonzalez Position: [facility] RN Member Role: Primary Care Nurse Name: Allyson Rodriguez RN Position: [facility] RN Member Role: Primary Care Nurse Name: Barbara Ochoa RN Position: [facility] RN Member Role: Primary Care Nurse Name: Linda Manzano RN Position: [facility] RN Member Role: Primary Care Nurse Name: Francesca Day RN Position: [facility] AMB Nurse Member Role: Primary Care Nurse Name: Radha Zepeda RN Position: [facility] RN Member Role: Primary Care Nurse Name: Eliceo Ortiz RN Position: [facility] RN Member Role: Primary Care Nurse Name: Gwendolyn Petersen RN Position: [facility] RN Member Role: Primary Care Nurse Name: Mando Esparza RN Position: [facility] RN Member Role: Primary Care Nurse Name: Alida Cam Position: [facility] RN Member Role: Primary Care Nurse Name: Angella Lehman RN Position: [facility] RN Member Role: Primary Care Nurse Name: Alexandra Huff RN Position: [facility] RN Member Role: Primary Care Nurse Name: Williams Talley RN Position: [facility] RN Member Role: Primary Care Nurse Name: Gina Teran RN Position: [facility] RN Member Role: Primary Care Nurse Name: Kylie Cheng RN Position: [facility] RN Member Role: Primary Care Nurse Name: Andrew Leach RN Position: [facility] SN RN Member Role: Primary Care Nurse Name: Kirsten Suarez RN Position: [facility] RN Member Role: Primary Care Nurse Name: Rick Garcia RN Position: [facility] RN Member Role: Primary Care Nurse Name: Keira Canada RN Position: [facility] RN Member Role: Primary Care Nurse Name: Karley Morgan Position: [facility] RN Member Role: Primary Care Nurse Name: Haley Alexander Position: [facility] RN Member Role: Primary Care Nurse Name: Elaine Powell RN Position: [facility] RN Member Role: Primary Care Nurse Name: Osmel Torres RN Position: [facility] RN Member Role: Primary Care Nurse Name: Kim Gates MD Position: [facility] Outreach Member Role: PCP Address: Address: [address] [place] [address] Name: Janice Norwood RN Position: [facility] RN Member Role: Primary Care Nurse Name: Chucky Chandler RN Position: [facility] RN Member Role: Primary Care Nurse Name: Rakesh Barriga RN Position: [facility] RN Member Role: Primary Care Nurse Name: Gwendolyn Renteria LPN Position: [facility] RN Member Role: Primary Care Nurse Name: Marla Bell RN Position: [facility] [employer] Engineer Member Role: Primary Care Nurse Name: Danielle Iraheta RN Position: [facility] RN Member Role: Primary Care Nurse Name: Eddy Castle RN Position: [facility] SHANITA RN W/OE and Tasks Member Role: Primary Care Nurse Name: Kavya Gaytan RN Position: [facility] RN Member Role: Primary Care Nurse Name: Allyson Bales RN Position: [facility] RN Member Role: Primary Care Nurse Name: Bryce Javier RN Position: [facility] RN Member Role: Primary Care Nurse Name: Charo Romano RN Position: [facility] SN RN Member Role: Primary Care Nurse Name: Patito Levin RN Position: [facility] RN Member Role: Primary Care Nurse Name: Elaine Hannon RN Position: [facility] RN Member Role: Primary Care Nurse Name: Sierra Mcqueen RN Position: [facility] RN Member Role: Primary Care Nurse Name: Kathya Pablo RN Position: [facility] Wind Turbine Design Engineer Member Role: Primary Care Nurse Care Team Related Persons Name: CLAUDIA PATRICK Address: [address] [address]
--- OUTSIDE RECORDS SUMMARY | 2023-12-04 07:57 | XMS_ITS | Continuity of Care Document ---
Author Organization [facility] Address [address] [place] [address]- Care Team Providers Care Leather Dresser Name Role Phone Kim Gates MD Primary Care Physician Encounter [facility] Date(s): 03/25/20 - 07/26/20 [facility] [address] [place] [address]- Discharge Disposition: A-D/C Home Attending Physician: Dread ESPINOZA, Haley Hernandez Admitting Physician: Jayla ESPINOZA, Errol Hernandez Referring Physician: Izabella Wade MD Allergies, Adverse Reactions, Alerts Substance Reaction [...] Medications anastrozole 1 mg oral tablet 1 tablet = 1 mg, By Mouth, Daily, # 90 tablet, 3 Refills, Maintenance, 05/26/20 11:19:00 EST, Tablet, [facility], Partial fill upon patient request if the prescription is for a schedule II opioid drug., 148.5, cm, 05/26/20 11:02:0... 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.(Confirmed) 03/30/10 Active Mastodynia, left chest wall from scarring(Confirmed) 10/31/10 Active Postmastectomy Lymphedema Sy ndrome, left arm(Confirmed) 10/31/10 Active Recurrent major depressive e pisodes, moderate(Confirmed) Active Vital Signs Most recent to oldest [Reference Range]: 1 2 3 Height 148.5 cm (05/26/20 11:02 AM) 148.5 cm (04/28/20 9:37 AM) 149.86 cm (04/19/20 8:50 AM) Weight 64.2 kg (05/26/20 11:02 AM) 61.7 kg (04/28/20 9:37 AM) 62.9 kg (04/19/20 8:50 AM) Pulse Rate [55-90 bpm] 96 bpm *H* (05/26/20 11:02 AM) 89 bpm (04/28/20 9:37 AM) 95 bpm *H* (04/19/20 8:50 AM) Body Mass Index [18.5-24.99] 29.11 *H* (05/26/20 11:02 AM) 27.98 *H* (04/28/20 9:37 AM) 28.01 *H* (04/19/20 8:50 AM) Blood Pressure [90-138/55-84 mm Hg] 163/53mm Hg *H* (05/26/20 11:02 AM) 180/68mm Hg *H* (04/28/20 9:37 AM) 136/89mm Hg (04/19/20 8:50 AM) Temperature [96.8-100.4 DegF] 97.8 DegF (05/26/20 11:02 AM) 97.4 DegF (04/28/20 9:37 AM) 97.0 DegF (04/19/20 8:50 AM) Blood pressure sites Arm, left (05/26/20 11:02 AM) Arm, left (04/19/20 8:50 AM) Temperature Route Temporal (05/26/20 11:02 AM) Oral (04/28/20 9:37 AM) Temporal (04/19/20 8:50 AM) Dry Weight 64.2 kg (05/26/20 11:02 AM) 61.7 kg (04/28/20 9:37 AM) 62.9 kg (04/19/20 8:50 AM) Weight Obtained Via Standing scale (05/26/20 11:02 AM) Standing scale (04/28/20 9:37 AM) Standing scale (04/19/20 8:50 AM) Dry Weight Obtained Via Standing scale (05/26/20 11:02 AM) Standing scale (04/28/20 9:37 AM) Standing scale (04/19/20 8:50 AM) Social History Social History Type Response Smoking Status Never smoker entered on: 06/04/14 Sex
--- OUTSIDE RECORDS SUMMARY | 2023-12-04 07:57 | XMS_ITS | Continuity of Care Document ---
Author Organization [facility] Address [address] [place] [address]- Care Team Providers Care Lining Caser Name Role Phone Kim Gates MD Primary Care Physician [phone] Encounter [facility] Date(s): 01/10/22 - 02/09/22 [facility] [address] [place] [id number] Allergies, Adverse Reactions, Alerts Substance Reaction Severity [...] before lunch, # 90 tablet, 3 Refills, [facility], 148.5, cm, 11/24/20 10:52:00 EDT, [...] Name: Kim Gates MD Address: Address: [address] [place] [address]-
--- OUTSIDE RECORDS SUMMARY | 2023-12-04 07:58 | XMS_ITS | Continuity of Care Document ---
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
--- OUTSIDE RECORDS SUMMARY | 2023-12-04 07:58 | XMS_ITS | Continuity of Care Document ---
Author Organization [facility] ter Address [address] [place] [address]- Care Team Providers Care Brake Repair Mechanic Name Role Phone Kim Gates MD Primary Care Physician [phone] [place] [facility] [place]23 - 03/09/[address] [address]- Encounter Diagnosis Diverticulitis(Final) - 03/09/23 Discharge Disposition: A-D/C Home Attending Physician: Estella Spain MD Admitting Physician: Estella Spain MD Referring Physician: Not on Staff, Referring [...] 90 tablet, 3 Refills, 05/15/22 16:31:00 EST, [facility], 148.5, cm, 01/10/22 9:59:00 EDT, [...] Neoplasm of Left Breast, pT1c, pNX, IDC, 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 Confirmed 03/30/10 Active Mastodynia, left chest wall from scarring Confirmed 10/31/10 Active Postmastectomy Lymphedema Syndrome, left arm Confirmed 10/31/10 Active Recurrent major depressive episodes, moderate Confirmed Active Underweight Confirmed Active Results Radiology Reports * Exam Date Time Procedure Performing Provider Status 03/09/23 2:[address] Abd/Pelvis W/ IV Contrast Only Penny Godinez; Auth (Verified) Notes: (CT Abd/Pelvis W/ IV Contrast Only) Reason For Exam: LLQ abdominal pain;Other: RESULT: CT Abd/Pelvis W/ IV Contrast Only CT Abd/Pelvis W/ IV Contrast Only Hx of Present Illness: c o rectal bleeding with some blood noted in the urine as well as difficultyvoiding - also c o midsternal nonreprod CP and lower abd pain; Reason: Other:; LLQ abdominal pain; Clinical Question(s): Abscess; Order Comment: TECHNIQUE: Spiral CT through the abdomen and pelvis with IV contrast formatted in 3 planes. 100 cc of Omnipaque 300 was administered intravenously. This study was performed without oral contrast. Weight-based protocol using automatic tube modulation was used to optimize exposure parameters. CTDIvol Body: 12.00 mGy, DLP Body: 642 mGy*cm. COMPARISON: 09/18/2013 CT of the abdomen and pelvis. FINDINGS: Yard Jacker View Findings, Lines and Tubes: None. Visualized Chest: Bibasilar atelectasis. Scattered pulmonary nodules, partially obscured by atelectasis, but similar to prior studies. No pleural effusion. Normal heart size. Moderate coronary arterycalcifications. Diaphragm: Normal. Liver: Mildly fatty liver. Mildly lobular liver surface, widening of the fissures and enlargement of the caudate lobe suggests cirrhosis. Recannulized umbilical vein. Gallbladder: No CT evidence of gallbladder pathology. Bile ducts: No biliary ductal dilation. Spleen: The spleen is mildly enlarged, measuring up to 13.3 cm. Pancreas: Normal. Adrenal glands: Normal. Kidneys and ureters: No hydronephrosis, stones, or suspicious masses. Bladder: Normal. Reproductive organs: The uterus and adnexa are normal. Stomach, small bowel, and large bowel: Small type I hiatal hernia. The stomach otherwise appears normal. The small bowel is normal in caliber, with no evidence of a bowel obstruction. The rectum is normal. There is colonic diverticulosis predominantly affecting the descending and sigmoid colon. Mild inflammatory changes are noted surrounding diverticula in the mid descending colon probably representing an acute diverticulitis. No evidence of perforation or abscess. Appendix: Normal. Peritoneum and retroperitoneum: Mild inflammatory changes along the mid descending colon. No omental or mesenteric lesions. Lymph nodes: No enlarged lymph nodes. Blood vessels: Mild vascular calcifications but no aneurysm. No evidence of venous thrombosis. Abdominal and pelvic wall: Rectus muscle diastases. Soft tissue contusion in the subcutaneous soft tissues of the right abdomen wall could be due to injection sites. Bones: Post surgical changes of the left mastectomy. No acute osseous abnormality. Degenerative changes in the spine. IMPRESSION: 1. Acute uncomplicated descending colon diverticulitis. 2. Cirrhotic appearing liver, with mild splenomegaly and recanalized umbilical vein suggestive of portal hypertension. WSN: [id number] Ordering Physician: Lizbet Pederson Dictated By: Juan David Wyatt MD Dictated Date/Time: 03/09/23 2:20 pm Reviewed By: Juan David Wyatt MD Signed By: Juan David Wyatt MD Signed Date/Time: 03/09/23 2:20 pm Transcribed By: BECKY Transcribed Date/Time: 03/09/23 2:14 pm Vital Signs Most recent to oldest [Reference Range]: 1 2 3 Height 180 cm (03/09/23 12:36 PM) 180 cm (03/09/23 10:09 AM) Weight 59 kg (03/09/23 12:36 PM) 59 kg (03/09/23 10:09 AM) Oxygen Saturation [94-100 %] 95 % (03/09/23 2:59 PM) 97 % (03/09/23 12:36 PM) 98 % (03/09/23 10:09 AM) Pulse Rate [55-90 bpm] 97 bpm *H* (03/09/23 2:59 PM) 100 bpm *H* (03/09/23 12:36 PM) 96 bpm *H* (03/09/23 10:09 AM) Body Mass Index [18.5-24.99 kg/m2] 18.21 kg/m2 *L* (03/09/23 12:36 PM) 18.21 kg/m2 *L* (03/09/23 10:09 AM) Blood Pressure [90-138/55-84 mm Hg] 148/69mm Hg *H* (03/09/23 2:59 PM) 140/57mm Hg *H* (03/09/23 12:36 PM) 185/68mm Hg *H* (03/09/23 10:09 AM) Respiratory Rate [16-30 br/min] 17 br/min (03/09/23 2:59 PM) 18 br/min (03/09/23 12:36 PM) 18 br/min (03/09/23 10:09 AM) Temperature [96.8-100.4 DegF] 98.7 DegF (03/09/23 2:59 PM) 98.6 DegF (03/09/23 12:36 PM) 98.9 DegF (03/09/23 10:09 AM) Mode of Delivery (Oxygen) Room air (03/09/23 2:59 PM) Room air (03/09/23 12:36 PM) Room air (03/09/23 10:09 AM) Blood pressure sites Arm, left (03/09/23 2:59 PM) Arm, left (03/09/23 12:36 PM) Arm, right (03/09/23 10:09 AM) Temperature Route Oral (03/09/23 2:59 PM) Oral (03/09/23 12:36 PM) Oral (03/09/23 10:09 AM) Dry Weight 59 kg (03/09/23 12:36 PM) 59 kg (03/09/23 10:09 AM) Weight Obtained Via Patient/family state d (03/09/23 10:09 AM) Dry Weight Obtained Via Patient/family s tated (03/09/23 10:09 AM) Social History Social History Type Response Smoking Status Never smoker entered on: 06/04/14 Sex Note * Director Lizbet ESPINOZA: PERFORM Event Display: Patient Education Leaflets Authored Date: [id number] Diverticulitis ?? Diverticulitis - Video Algunas personas tienen cameron??as bolsas en baker tracto digestivo. Esas bolsas a veces pueden inflamarse y causar dolor. Kinga y aprenda lo que causa esta enfermedad y c??mo se puede tratar. Para delores el video ir a esta direccion web: [email or web address] O, escanear mckenzie codigo QR con el telefono inteligente ?? 6308-0722 [employer]. All rights reserved. This information is not intended as a substitute for professional medical care. Always follow your healthcare professional's instructions. ?? * Director Lizbet ESPINOZA: PERFORM Event Display: Patient Education Leaflets Authored Date: [id number] Diverticulitis ?? [id number] Diverticulitis A algunas personas, con el paso de los a??os, les crecen bolsas cameron??as hacia adentro de la pareddel colon. Estas bolsas se conocen emily divert??culos. Por lo general, no causan deirdre??n s??ntoma. Si las bolsas se bloquean, pueden inflamarse e infectarse. [place] se llama diverticulitis. Causa doloren la parte inferior del abdomen y fiebre. Tambi??n puede causar n??useas, v??mitos, diarrea o estre??imiento. Si no se trata, puede convertirse en un problema de negrita grave. Puede producir la formaci??n de un absceso alrededor del saco. El absceso puede bloquear el tubo digestivo. La bolsa podr??a rasgarse o romperse. Eso puede propagar la infecci??n dentro de todo el abdomen. Si eso sucede, nec esitar?? tratamiento m??dico de emergencia. A veces, no es necesario maría antibi??ticos en sofya de diverticulitis. Suman es lo que se usa con m??s frecuencia. Si se inicia el tratamiento apenas se presenta la enfermedad, es posible que los antibi??ticos orales solos gosia suficientes para curarla. Mckenzie es el primer m??todo con el que se intenta. Suman si no mejora o si la afecci??n empeora mientras le administran estos medicamentos, quiz?? sea necesario hospitalizarlo. All?? recibir?? antibi??ticos y l??quidos por v??a intravenosa. Tambi??n es posible que tenga que dejar descansar el intestino. Cabazon significa que no podr?? comer ni beberdurante un tiempo. Los casos graves pueden requerir cirug??a. Cuidados en el hogar Estas pautas lo ayudar??n a cuidarse en el hogar: ??? Terese la etapa aguda de la enfermedad, descanse y siga las instrucciones de baker proveedor de atenci??n m??dica sobre la dieta. En algunos casos, deber?? seguir jennifer dieta de l??quidos amy paradescansar el intestino. Jennifer vez que los s??ntomas mejoren, es posible que le indiquen jennifer dieta conbajo contenido de fibra por un tiempo. Puede consumir alimentos emily: o Cereal en copos o Pur?? de chandana o Panqueques y gofres o Pasta o Marie carver o Arroz o Pur?? de manzana o Bananas (pl??tanos) o Huevos o Pescado o Carne de ave o Tofu o Verduras blandas cocidas ??? [place] los antibi??ticos exactamente emily se le indic??. No omita ninguna dosis ni deje de maría el medicamento, incluso si se siente mejor. ??? Contr??lese la temperatura. Inf??rmele a baker proveedor de atenci??n m??dica si tiene aumentos de temperatura. C??mo evitar futuros ataques Jennifer vez que cid tenido un episodio de diverticulitis, est?? en riesgo de volver a tenerlo. Suman puede reducir el riesgo con jennifer alimentaci??n con alto contenido de fibras (entre 20??g/d??a y 35??g/d??a de fibras). Eso limpia los sacos que ya existen en el colon. Tambi??n puede evitar que se formen otros nuevos. Los siguientes son algunos alimentos ricos en fibra: ??? Frutas frescas y c??scaras comestibles ??? Vegetales crudos o poco cocidos ??? Cereales y panesintegrales ??? Frijoles y ch??charos secos ??? Salvado Estos son algunos otros pasos que puede seguir para ayudar a prevenir futuros ataques: ??? [place] losmedicamentos, emily los antibi??ticos, de acuerdo con las indicaciones del proveedor de atenci??n m??dica. ??? Gissel de 6 a 8 vasos de agua todos los d??as, lul que le indiquen lo contrario. ??? Use jennifer almohadilla t??rmica o jennifer bolsa de [place] para reducir los calambres o el dolor abdominal. ??? Comience un programa de ejercicios. Preg??ntele a baker proveedor de atenci??n m??dica cu??l es la mejor manera de empezar. Puede beneficiarse con actividades simples, emily caminatas o jardiner??a. ??? Trate la diarrea con jennifer dieta blanda. Comience solo con l??quidos. Luego incluya fibra lentamente a medida que transcurra el tiempo. ??? Observe si hay cambios en baker evacuaci??n intestinal (estre??imiento o diarrea). Para prevenir el estre??imiento, siga jennifer dieta vale en fibra y tome un ablandador de heces si es necesario. ??? Descanse y duerma mucho. ??? No tome JAIRO (medicamentos antiinflamatorios) a menos que baker proveedor de atenci??n m??dica as?? lo indique. Pueden aumentar el riesgode diverticulitis. ?? Visita de seguimiento Consulte con baker proveedor de atenci??n m??dica seg??n lo recomendado, o antes si no mejora en los pr??ximos 2??d??as. Baker proveedor de atenci??n m??dica puede indicarle jennifer colonoscop??a para observarel colon jennifer vez que haya sanado. ?? Cu??ndo llamar al proveedor de atenci??n m??dica Llame a baker proveedor de atenci??n m??dica de inmediato ante cualquiera de las siguientes situaciones: ??? Fiebre de 100.4?F (38?C) o superior, o seg??n lo indicado por baker proveedor de atenci??nm??dica ??? V??mitos persistentes o inflamaci??n del abdomen ??? Debilidad, mareos o aturdimiento ??? Dolor en el abdomen que empeora, es intenso o se extiende a la espalda ??? Dolor que se transfiere al lado inferior derecho del abdomen ??? Sangrado rectal. Cabazon significa que suhbham heces son de color hart, lacey o granate. ??? Sangrado vaginal inesperado ?? Last Reviewed Date: 2021 ?? [id number] [employer]. Todos los derechos reservados. Esta informaci??n no pretende sustituir la atenci??n m??dica profesional. S??lo baker m??dico puede diagnosticar y tratar un problema de negrita. ?? Patient Care team information Care Team Personnel Name: Taylor Newell Position: [facility] Onco RN Member Role: Primary Care Nurse Name: Armando Justice RN Position: [facility] ED RN W/OE and Tasks Member Role: Primary Care Nurse Name: Sarah Bales RN Position: [facility] RN Member Role: Primary Care Nurse Name: Naty Holt RN Position: [facility] RN Member Role: Primary Care Nurse Name: Francesca Day RN Position: [facility] AMB Nurse Member Role: Primary Care Nurse Name: Irene Cotto RN Position: [facility] RN Member Role: Primary Care Nurse Name: Mando Esparza RN Position: [facility] RN Member Role: Primary Care Nurse Name: Williams Talley RN Position: [facility] RN Member Role: Primary Care Nurse Name: Kylie Cheng RN Position: [facility] RN Member Role: Primary Care Nurse Name: Andrew Leach RN Position: [facility] SN RN Member Role: Primary Care Nurse Name: Elaine Powell RN Position: [facility] RN Member Role: Primary Care Nurse Name: Kim Gates MD Position: [facility] Outreach Member Role: PCP Address: Address: [address] [place] [address]- [place] Name: Janice Norwood RN Position: [facility] RN Member Role: Primary Care Nurse Name: Rakesh Barriga RN Position: [facility] RN Member Role: Primary Care Nurse Name: Marla Bell RN Position: [facility] Coal Shooter Member Role: Primary Care Nurse Name: Allyson Bales RN Position: [facility] RN Member Role: Primary Care Nurse Name: Charo Romano RN Position: [facility] SN RN Member Role: Primary Care Nurse Name: Patito Levin RN Position: [facility] RN Member Role: Primary Care Nurse Name: Elaine Hannon RN Position: [facility] RN Member Role: Primary Care Nurse Name: Kathya Pablo RN Position: [facility] Coal Shooter Member Role: Primary Care Nurse Name: Estella Spain MD Position: [facility] ED Medicine MD Member Role: Admitting Physician Address: Address: [address] [place] [address]- Name: Lizbet Pederson MD Position: [facility] Resident Member Role: ED Resident Address: Address: [address] [place] [address]- Name: Queta Yeung RN Position: [facility] ED RN W/OE and Tasks Member Role: Patient Care Provider Name: Derick Buitrago Position: [facility] ED TA [facility] Member Role: Patient Care Provider Care Team Related Persons Name: REJIBHARGAVCLAUDIA Address: home [address] [place] [address]
--- OUTSIDE RECORDS SUMMARY | 2023-12-04 07:58 | XMS_ITS | Continuity of Care Document ---
Author Organization [facility] ancer Care Address [address] [place] [address]- Care Team Providers Care Director Translation Name Role Phone Kim Gates MD Primary Care Physician [phone] Encounter [facility] [place] Date(s): 05/31/21 - 06/30/21 [facility] [address] [place] [id number] Attending Physician: Derek Barnett Admitting Physician: AdmDerek [...] before lunch, # 90 tablet, 3 Refills, [facility], 148.5, cm, 11/24/20 10:52:00 [...] of Left B reast, pT1c, pNX, IDC, [place] positive 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.(Confirmed) 03/30/10 Active Mastodynia, left chest wall from scarring(Confirmed) 10/31/10 Active Postmastectomy Lymphedema Sy ndrome, left arm(Confirmed) 10/31/10 Active Recurrent major depressive e pisodes, moderate(Confirmed) Active Social History Social History Type Response Smoking Status Never smoker entered on: 06/04/14 Sex
--- OUTSIDE RECORDS SUMMARY | 2023-12-04 07:58 | XMS_ITS | Continuity of Care Document ---
Author Organization [facility] ancer Care Address [address] [place] [address]- Care Team Providers Care Mucker Cofferdam Name Role Phone Kim Gates MD Primary Care Physician En[place] [facility] [place] Date(s): 07/06/22 - 08/05/22 [facility] [address] [place] [id number] Attending Physician: Derek Barnett Admitting Physician: [...] 90 tablet, 3 Refills, 05/15/22 16:31:00 EST, [facility], 148.5, cm, 01/10/22 9:59:00 [...] Neoplasm of Left Breast, pT1c, pNX, IDC, 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 Confirmed 03/30/10 Active Mastodynia, left chest wall from scarring Confirmed 10/31/10 Active Postmastectomy Lymphedema Syndrome, left arm Confirmed 10/31/10 Active Recurrent major depressive episodes, moderate Confirmed Active Social History Social History Type Response Smoking Status Never smoker entered on: 06/04/14 Sex Note * Sindi Moe: PERFORM, SIGN, VERIFY Event Display: Patient Education/Instruction Authored Date: [id number] [facility] Heme/Onc Adult Clinical Summary Person Information Name [...] provider, you may find a [facility] provider by calling [facility] [employer] [facility] at [phone]. Patient Education Information Follow-up Details: With: Address: When: Haley Canada MD [address] [place] [address] Professional (1) 03/04/2012 1:30:00 Comments: 1 yr f/u--inter andrew w/ Katerin With: Address: When: Nhung Randle NP [address] [place] [address] Business (1) 09/04/2011 1:30:00 Comments: 6 month f/u inter barneyd w/ Katerin Patient Education Material: Patient Care team information Care Team Personnel Name: Taylor Newell Position: [facility] Onco RN Member Role: Primary Care Nurse Name: Armando Justice RN Position: [facility] ED RN W/OE and Tasks Member Role: Primary Care Nurse Name: Sarah Bales RN Position: [facility] RN Member Role: Primary Care Nurse Name: Naty Pickett RN Position: [facility] PCO RN Member Role: Primary Care Nurse Name: Francesca Day RN Position: [facility] AMB Nurse Member Role: Primary Care Nurse Name: Irene Cotto RN Position: [facility] RN Member Role: Primary Care Nurse Name: Mando Esparza RN Position: [facility] RN Member Role: Primary Care Nurse Name: Kaya Worley RN Position: [facility] RN Member Role: Primary Care Nurse Name: Williams Talley RN Position: [facility] RN Member Role: Primary Care Nurse Name: Kylie Cheng RN Position: [facility] RN Member Role: Primary Care Nurse Name: Andrew Leach RN Position: [facility] SN RN Member Role: Primary Care Nurse Name: Elaine Powell RN Position: [facility] RN Member Role: Primary Care Nurse Name: Kim Gates MD Position: [facility] Outreach Member Role: PCP Address: Address: [address] [place] [id number] Name: Janice Norwood RN Position: [facility] RN Member Role: Primary Care Nurse Name: Rakesh Barriga RN Position: [facility] RN Member Role: Primary Care Nurse Name: Marla Bell RN Position: [facility] Upper Cutter Member Role: Primary Care Nurse Name: Allyson Bales RN Position: [facility] RN Member Role: Primary Care Nurse Name: Charo Romano RN Position: [facility] SN RN Member Role: Primary Care Nurse Name: Patito Levin RN Position: [facility] RN Member Role: Primary Care Nurse Name: Elaine Hannon RN Position: [facility] RN Member Role: Primary Care Nurse Name: Kathya Pablo RN Position: [facility] [place] Member Role: Primary Care Nurse Care Team Related Persons Name: CLAUDIA PATRICK Address: [address] [address]
--- OUTSIDE RECORDS SUMMARY | 2023-12-04 07:58 | XMS_ITS | Continuity of Care Document ---
Author Organization [facility] ancer Care Address [address] [place] [address]- Care Team Providers Care Buttermaker Name Role Phone Kim Gates MD Primary Care Physician [phone] [place] [facility] [place](s): 01/09/23 - 02/08/23 [facility] [address] [place] [id number] Allergies, Adverse Reactions, Alerts Substance Reaction Severity [...] # 90 tablet, 3 Refills, 05/15/22 16:31:00 [facility], 148.5, cm, 01/10/22 9:59:00 EDT, Height, [...] Neoplasm of Left Breast, pT1c, pNX, IDC, [place] positive 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. Confirmed 03/30/10 Active Mastodynia, left chest wall from scarring Confirmed 10/31/10 Active Postmastectomy Lymphedema Syndrome, left arm Confirmed 10/31/10 Active Recurrent major depressive episodes, moderate Confirmed Active Social History Social History Type Response Smoking Status Never smoker entered on: 06/04/14 Sex Patient Care team information Care Team Personnel Name: Taylor Newell Position: [facility] Onco RN Member Role: Primary Care Nurse Name: Armando Justice RN Position: [facility] ED RN W/OE and Tasks Member Role: Primary Care Nurse Name: Sarah Bales RN Position: [facility] RN Member Role: Primary Care Nurse Name: Naty Holt RN Position: [facility] RN Member Role: Primary Care Nurse Name: Francesca Day RN Position: [facility] AMB Nurse Member Role: Primary Care Nurse Name: Irene Cotto RN Position: [facility] RN Member Role: Primary Care Nurse Name: Mando Esparza RN Position: [facility] RN Member Role: Primary Care Nurse Name: Williams Talley RN Position: [facility] RN Member Role: Primary Care Nurse Name: Kylie Cheng RN Position: [facility] RN Member Role: Primary Care Nurse Name: Andrew Leach RN Position: [facility] SN RN Member Role: Primary Care Nurse Name: Elaine Powell RN Position: [facility] RN Member Role: Primary Care Nurse Name: Kim Gates MD Position: [facility] Outreach Member Role: PCP Address: Address: [address] [place] [id number] Name: Janice Norwood RN Position: [facility] RN Member Role: Primary Care Nurse Name: Rakesh Barriga RN Position: [facility] RN Member Role: Primary Care Nurse Name: Marla Bell RN Position: [facility] Assistant Director Of Security Member Role: Primary Care Nurse Name: Allyson Bales RN Position: [facility] RN Member Role: Primary Care Nurse Name: Charo Romano RN Position: [facility] SN RN Member Role: Primary Care Nurse Name: Patito Levin RN Position: [facility] RN Member Role: Primary Care Nurse Name: Elaine Hannon RN Position: [facility] RN Member Role: Primary Care Nurse Name: Kathya Pablo RN Position: [facility] Assistant Director Of Security Member Role: Primary Care Nurse Care Team Related Persons Name: REJIBHARGAVCLAUDIA Address: home [address] [place] [address]
--- OUTSIDE RECORDS SUMMARY | 2023-12-04 07:58 | XMS_ITS | Continuity of Care Document ---
Author Organization [facility] ter Address [address] [place] [address]- Care Team Providers Care Corner Trimmer Operator Name Role Phone Kim Gates MD Primary Care Physician [phone] Encounter [facility] Date(s): 06/21/23 - 07/24/[address] [id number] Attending Physician: Francis Chaparro MD Admitting [...] Neoplasm of Left Breast, pT1c, pNX, IDC, ER/ID positive recurrent in 2008 after initial diagnosis [...] Care Team Personnel Name: Taylor Newell Position: [facility] Onco RN Member Role: Primary Care Nurse Name: Naty Pierson RN Position: [facility] RN Member Role: Primary Care Nurse Name: Kirsten Fernandes RN Position: [facility] RN Supv Member Role: Primary Care Nurse Name: Melinda Morelos RN Position: [facility] RN Member Role: Primary Care Nurse Name: Sophia Pereira RN Position: [facility] RN Member Role: Primary Care Nurse Name: Rhonda Sapp RN Position: [facility] RN Member Role: Primary Care Nurse Name: Tammy Prescott RN Position: [facility] RN Member Role: Primary Care Nurse Name: Armando Justice RN Position: [facility] ED RN W/OE and Tasks Member Role: Primary Care Nurse Name: Arabella He RN Position: [facility] RN Member Role: Primary Care Nurse Name: Yoli Bryant RN Position: [facility] RN Member Role: Primary Care Nurse Name: Sarah Bales RN Position: [facility] RN Member Role: Primary Care Nurse Name: Naty Holt RN Position: [facility] RN Member Role: Primary Care Nurse Name: Kim Gonzalez Position: [facility] RN Member Role: Primary Care Nurse Name: Allyson Rodriguez RN Position: [facility] RN Member Role: Primary Care Nurse Name: Avril Wright RN Position: [facility] RN Member Role: Primary Care Nurse Name: Linda Manzano RN Position: [facility] RN Member Role: Primary Care Nurse Name: Chris Lobo RN Position: [facility] RN Member Role: Primary Care Nurse Name: Emilee Goldstein RN Position: [facility] RN Member Role: Primary Care Nurse Name: Francesca Day RN Position: [facility] AMB Nurse Member Role: Primary Care Nurse Name: Radha Zepeda RN Position: [facility] RN Member Role: Primary Care Nurse Name: Eliceo Ortiz RN Position: [facility] RN Member Role: Primary Care Nurse Name: Gwendolyn Petersen RN Position: [facility] RN Member Role: Primary Care Nurse Name: Mando Esparza RN Position: [facility] RN Member Role: Primary Care Nurse Name: Alida Cam Position: [facility] RN Member Role: Primary Care Nurse Name: Angella Lehman RN Position: [facility] RN Member Role: Primary Care Nurse Name: Alexandra Huff RN Position: [facility] RN Member Role: Primary Care Nurse Name: Williams Talley RN Position: [facility] RN Member Role: Primary Care Nurse Name: Gina Teran RN Position: [facility] RN Member Role: Primary Care Nurse Name: Kylie Cheng RN Position: [facility] RN Member Role: Primary Care Nurse Name: Andrew Leach RN Position: [facility] SN RN Member Role: Primary Care Nurse Name: Kirsten Suarez RN Position: [facility] RN Member Role: Primary Care Nurse Name: Naty Collazo RN Position: [facility] RN Member Role: Primary Care Nurse Name: Keira Canada RN Position: [facility] RN Member Role: Primary Care Nurse Name: Karley Morgan Position: [facility] RN Member Role: Primary Care Nurse Name: Haley Alexander Position: [facility] RN Member Role: Primary Care Nurse Name: Elaine Powell RN Position: [facility] RN Member Role: Primary Care Nurse Name: Osmel Torres RN Position: [facility] RN Member Role: Primary Care Nurse Name: Kim Gates MD Position: [facility] Outreach Member Role: PCP Address: Address: [address] [place] [id number] Name: Janice Norwood RN Position: [facility] RN Member Role: Primary Care Nurse Name: Chucky Chandler RN Position: [facility] RN Member Role: Primary Care Nurse Name: Rakesh Barriga RN Position: [facility] RN Member Role: Primary Care Nurse Name: Gwendolyn Renteria LPN Position: [facility] RN Member Role: Primary Care Nurse Name: Marla Bell RN Position: [facility] Hospital Billing Supervisor Member Role: Primary Care Nurse Name: Danielle Iraheta RN Position: [facility] RN Member Role: Primary Care Nurse Name: Eddy Castle RN Position: [facility] ED RN W/OE and Tasks Member Role: Primary Care Nurse Name: Laura Loving RN Position: [facility] RN Member Role: Primary Care Nurse Name: Kavya Gaytan RN Position: [facility] RN Member Role: Primary Care Nurse Name: Allyson Bales RN Position: [facility] RN Member Role: Primary Care Nurse Name: Bryce Javier RN Position: [facility] RN Member Role: Primary Care Nurse Name: Charo Romano RN Position: [facility] RN Member Role: Primary Care Nurse Name: Patito Levin RN Position: [facility] RN Member Role: Primary Care Nurse Name: Elaine Hannon RN Position: [facility] RN Member Role: Primary Care Nurse Name: Sierra Mcqueen RN Position: [facility] RN Member Role: Primary Care Nurse Name: Kathya Pablo RN Position: [facility] Billing Supervisor Member Role: Primary Care Nurse Care Team Related Persons Name: CLAUDIA PATRICK Address: [address] [address]
--- OUTSIDE RECORDS SUMMARY | 2023-12-04 07:58 | XMS_ITS | Continuity of Care Document ---
Author Organization [facility] ter Address [address] [place] [address]- Care Team Providers Care Product Steward Name Role Phone Kim Gates MD Primary Care Physician [phone] Encounter [facility] Date(s): 03/24/23 - 03/24/[address] [address]- Encounter Diagnosis Abdominal pain(Final) - 03/24/23 Anxiety about dying(Final) - 03/24/23 Discharge Disposition: A-D/C Home Attending Physician: Ignacio Harris DO Admitting Physician: Ignacio Harris DO Referring Physician: Not on Staff, Referring MD [...] 90 tablet, 3 Refills, 05/15/22 16:31:00 EST, [facility], 148.5, cm, 01/10/22 9:59:00 EDT, [...] History of breast cancer Left mastectomy Diagnosis: 50.2, 02/23/20 11:23:00 EST, Compound Start Date: 02/23/20 [...] Neoplasm of Left Breast, pT1c, pNX, IDC, 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 Confirmed 03/30/10 Active Mastodynia, left chest wall from scarring Confirmed 10/31/10 Active Postmastectomy Lymphedema Syndrome, left arm Confirmed 10/31/10 Active Recurrent major depressive episodes, moderate Confirmed Active Results Radiology Reports * Exam Date Time Procedure Performing Provider Status 03/24/23 8:[address] Abd/Pelvis W/ IV Contrast Only Jesse Damico (Verified) Notes: (CT Abd/Pelvis W/ IV Contrast Only) Reason For Exam: LLQ abdominal pain;Other: RESULT: CT Abd/Pelvis W/ IV Contrast Only CT Abd/Pelvis W/ IV Contrast Only Hx of Present Illness: Patient reports BRB per rectum after each BM since Saturday evening. Reports burning pain in lower abd. Endorses nausea, denies vomiting diarrhea dysuria.; Reason: LLQ abdominal pain; Clinical Question(s): Diverticulitis TECHNIQUE: Spiral CT through the abdomen and pelvis with IV contrast formatted in 3 planes. 75 cc of Omnipaque 300 was administered intravenously. This study was performed without oral contrast. Weight-based protocol using automatic tube modulation was used to optimize exposure parameters. CTDIvol Body: 12.60 mGy, DLP Body: 610 mGy*cm. COMPARISON: CT abdomen and pelvis with contrast 03/09/2023 FINDINGS: School Lunch Manager View Findings, Lines and Tubes: None. Visualized Chest: No pleural effusion. The heart is normal in size. No pericardial effusion. Left mastectomy incompletely seen. Diaphragm: Normal. Liver: Mildly nodular hepatic surface contour and hypertrophy of the caudate suggesting cirrhosis. Recanalized umbilical vein. No suspicious lesions. Gallbladder: Tiny 2 mm dependent stone versus focal calcified adenomyomatosis. No secondary signs of cholecystitis. Bile ducts: No biliary ductal dilation. Spleen: Borderline splenomegaly measuring up to 12.5 cm decreased from prior 13.3 cm. Pancreas: Normal. Adrenal glands: Normal. Kidneys and ureters: No hydronephrosis, stones, or suspicious masses. Small hypodensities that are too small to characterize are noted, requiring no dedicated follow up. Bladder: Normal. Reproductive organs: Small focus of air noted in the mid to distal vaginal canal (image 29 series 201), likely physiologic. Stomach, small bowel, and large bowel: Small type I hiatal hernia otherwise the stomach is normal. Small bowel is normal course and caliber. Mild colonic stool burden notably in the rectum. Again demonstrated moderate scattered descending and sigmoid colonic diverticulosis without evidence of acutediverticulitis. Appendix: Normal. Peritoneum and retroperitoneum: No ascites or pneumoperitoneum. No omental or mesenteric lesions. Lymph nodes: No enlarged lymph nodes. Blood vessels: Mild vascular calcifications but no aneurysm. No evidence of venous thrombosis. Abdominal and pelvic wall: Tiny fat-containing umbilical hernia. Right lower anterior abdominal wall subcutaneous thickening and minimal associated inflammatory changes (image 101 series 201)which may be seen in setting of cellulitis. Bones: No acute fracture. Moderate multilevel degenerative changes of the spine. IMPRESSION: 1. Moderate colonic diverticulosis without evidence of acute diverticulitis. 2. Unchanged minimally cirrhotic hepatic morphology and borderline splenomegaly measuring canalizedperiumbilical vein. 3. Non-specific focal calcification abutting the dependant gallbladder wall may represent tiny stone or focal adenomyomatosis. No evidence of acute cholecystitis. Non emergent RUQ US maybe consideredfor further characterisation. I have personally reviewed the images and I agree with this report. WSN: [id number] Ordering Physician: April Mason Dictated By: Steve Sawant DO Dictated Date/Time: 03/24/23 9:17 pm Reviewed By: Andrew Cifuentes MD Signed By: Andrew Cifuentes MD Signed Date/Time: 03/24/23 9:22 pm Transcribed By: BECKY Transcribed Date/Time: 03/24/23 9:09 pm Vital Signs Most recent to oldest [Reference Range]: 1 2 3 Height 150 cm (03/24/23 2:11 PM) 150 cm (03/24/23 1:19 PM) Weight 58 kg (03/24/23 2:11 PM) 58 kg (03/24/23 1:19 PM) Oxygen Saturation [94-100 %] 98 % (03/24/23 10:24 PM) 98 % (03/24/23 6:02 PM) 99 % (03/24/23 5:11 PM) Pulse Rate [55-90 bpm] 78 bpm (03/24/23 10:24 PM) 80 bpm (03/24/23 6:02 PM) 73 bpm (03/24/23 5:11 PM) Body Mass Index [18.5-24.99 kg/m2] 25.78 kg/m2 *H* (03/24/23 1:19 PM) Blood Pressure [90-138/55-84 mm Hg] 140/60mm Hg *H* (03/24/23 10:24 PM) 142/57mm Hg *H* (03/24/23 6:02 PM) 134/64mm Hg (03/24/23 5:11 PM) Respiratory Rate [16-30 br/min] 18 br/min (03/24/23 10:24 PM) 18 br/min (03/24/23 6:02 PM) 18 br/min (03/24/23 5:11 PM) Temperature [96.8-100.4 DegF] 98.4 DegF (03/24/23 10:24 PM) 98.2 DegF (03/24/23 6:02 PM) 98.4 DegF (03/24/23 5:11 PM) Mode of Delivery (Oxygen) Room air (03/24/23 6:02 PM) Room air (03/24/23 5:11 PM) Room air (03/24/23 3:51 PM) Blood pressure sites Arm, right (03/24/23 6:02 PM) Arm, left (03/24/23 5:11 PM) Arm, right (03/24/23 3:51 PM) Temperature Route Oral (03/24/23 6:02 PM) Oral (03/24/23 5:11 PM) Oral (03/24/23 3:51 PM) Dry Weight 58 kg (03/24/23 2:11 PM) 58 kg (03/24/23 1:19 PM) Weight Obtained Via Patient/family state d (03/24/23 1:19 PM) Dry Weight Obtained Via Patient/family s tated (03/24/23 1:19 PM) Social History Social History Type Response Smoking Status Never smoker entered on: 06/04/14 Sex Note * Isabella DOApril: PERFORM Event Display: Patient Education Leaflets Authored Date: [id number] Anxiety Reaction ?? [id number] Reacci??n de ansiedad Todos sentimos algo de [...] hereditaria. Es decir que puede ser gen??abdelrahman. Terese jennifer reacci??n de ansiedad, es posible que [...] el pecho ??? Sudoraci??n ??? Dolor de nancy ??? N??useas ??? Diarrea ??? Cansancio ??? [...] o de un ser querido. ??? Sobrecarga. Lorton significa sentir que tiene demasiadas responsabilidades. Y que no puede ocuparse de todas. ??? Frustraci??n. Puede que sienta que no tiene nada bajo control ni opciones. Es posible que sienta que shubham problemas no tienen soluci??n. Observe c??mo baker cuerpo reacciona al estr??s. Lorton le ayudar?? a maría medidas antes de que el estr??s provoque ansiedad. Cuando sea posible, jay los cambios necesarios para reducir las mcclain de estr??s. Sin embargo, muchas veces, el estr??s no se puede prevenir. Es importante que aprenda a controlar el estr??s para disminuir la ansiedad. Existen varios m??todos demostrados que funcionan dav para reducir la ansiedad. Entre ellos, se encuentran los siguientes: ??? Ejercicio ??? Bethesda nutrici??n ??? Dormir lo suficiente ??? T??cnicas de relajaci??n ??? Ejercicios de respiraci??n ??? Visualizaci??n ??? Biorretroalimentaci??n ??? Meditaci??n ??? Terapia ??? Medicamentos Consulte con baker proveedor de atenci??n m??dica para obtener m??s [...] opci??n de chat en l??hortencia disponible en www.suicidepreYakifyline.org. Tambi??n puede llamar a la l??hortencia de ayuda al 462-591-GXGE ([phone]). La l??neaes gratuita y funciona las 24??horas, [...] del Suicidio (National Suicide Prevention Lifeline) al 876-016-XYSF ([phone]). La l??hortencia de ayuda est?? disponible las 24??horas, los 7??d??as de la semana y ofrece apoyo gratuito y confidencial. La l??hortencia de ayuda tambi??n tiene un chat en l??hortencia disponible en www.suicidepreventionLoterityline.org. ?? Last Reviewed Date: 2021 ?? [id number] [employer]. Todos los derechos reservados. Esta informaci??n no pretende sustituir la atenci??n m??dica profesional. S??lo baker m??dico puede diagnosticar y tratar un problema de negrita. ?? * April Mason DO: PERFORM Event Display: Patient Education Leaflets Authored Date: Abdominal Pain, Unknown Cause (Adult) ?? [id number] Causas desconocidas del dolor abdominal en adultos Se desconoce la causa exacta del dolor en el vientre (abdomen). Por el momento, las pruebas y los ex??menes no indican jennifer causa grave. Suman eso no significa que no haya que preocuparse. Todas las personas quieren conocer la causa exacta del problema. Suman a veces no hay jennifer causa olivia del dolor abdominal, y esto podr??a ser algo blanchard. Podr??a sentirse mejor al tratar los s??ntomas.?? Por el momento, baker afecci??n no parece ser grave. Sin embargo, a veces los signos de un problema grave pueden tardar m??s en aparecer. Por lo tanto, es importante que vigile cualquier s??ntoma nuevo,dificultad o empeoramiento de baker afecci??n. En los d??as siguientes, el dolor abdominal puede aparecer y desaparecer. O puede ser sarah. Las n??useas y los v??mitos son otros s??ntomas habituales. A veces, puede ser dif??cil reconocer que tiene n??useas. Podr??a sentirse mal y no relacionarlo con jennifer sensaci??n de n??useas. El dolor podr??a estar acompa??ado de estre??imiento, diarrea y fiebre. El dolor puede continuar terese varios d??as, incluso cuando se trata correctamente. Seg??n la evoluci??n del cuadro, a veces la causa puede determinarse y puede requerir m??s o diferentes tratamientos. Tambi??n puede necesitar otras evaluaciones, medicamentos o pruebas. Cuidados en el hogar Baker proveedor de atenci??n m??dica puede recetarle medicamentos para el dolor, los s??ntomas o jennifer infecci??n. ??Siga las instrucciones del proveedor de atenci??n m??dica para maría estos medicamentos. Cuidados generales ??? Descanse todo lo que pueda hasta el pr??ximo control. No jay actividades que requieran mucho esfuerzo. ??? Evite todo lo que pueda causar los s??ntomas. Lorton puede incluir no maría medicamentos,a menos que se lo haya indicado baker proveedor de atenci??n m??dica. O no comer determinados alimentos ni hacer determinadas actividades. ??? Trate de encontrar posiciones que alivien el malestar. Jennifer almohada cameron??a colocada sobre el abdomen puede aliviar el dolor. ??? El calor de, por ejemplo, jennifer almohadilla t??rmica en el abdomen puede ayudar, suman tenga cuidado de no quemarse. Alimentaci??n ??? No se obligue a comer, especialmente si tiene c??licos, v??mitos o diarrea. ??? Es importante que tome agua para no deshidratarse. Tambi??n puede ser blanchard beber sopas. Las bebidas deportivas tambi??n pueden ayudar, en especial si no son muy ??cidas. No tome bebidas con az??car yaque podr??a hacer que empeore. Gissel cantidades cameron??as de l??quidos. No gissel r??pido. ??? El consumo de cafe??na a veces puede empeorar el dolor y los c??licos. ??? No ingiera productos l??cteos sitiene v??mitos o diarrea. ??? No ingiera jennifer gran cantidad de comida de jennifer gabby vez. Coma varias porciones cameron??as a lo rufino del d??a, en vez de 2??o 3??comidas grandes diarias. Espere unos minutos entre bocados. ??? Coma alimentos con poca fibra (esto se llama dieta baja en residuos). Los alimentos permitidos incluyen panes con harina refinada, arroz carver, jugos de frutas y verduras sin pulpa y neo de res tiernas. Estos alimentos pasan con mayor facilidad por el intestino. ??? Evite los alimentos de granos integrales, las frutas y verduras enteras, las neo de res, las semillas y los mac secos, los alimentos fritos o grasosos, los productos l??cteos, el alcohol y los alimentos picantes hasta que los s??ntomas desaparezcan. ?? Seguimiento Jay el seguimiento con baker proveedor de atenci??n m??dica o seg??n las indicaciones si el dolor no comienza a mejorar en las pr??ximas 24??horas. ?? Cu??ndo llamar al?? 911 Llame al?? 911 si ocurre algo de lo siguiente: ??? Dificultad para respirar ??? Confusi??n ??? Desmayos o p??rdida del conocimiento ??? Frecuencia card??cam acelerada ??? Convulsiones ?? Cu??ndo buscar atenci??n m??dica Llame a baker proveedor de atenci??n m??dica de inmediato ante cualquiera de las siguientes situaciones: ??? Dolor que empeora o pasa a la parte inferior derecha del abdomen ??? Episodios nuevos de v??mitos o diarrea, o que empeoran ??? Hinchaz??n del abdomen ??? Incapacidad de defecar por m??s de??3??d??as ??? Fiebre de 100.4?F??(38?C) o m??s vale, o seg??n se lo indique baker proveedor de atenci??n m??dica ??? Jose en los v??mitos o en las heces (de color hart oscuro o lacey) ??? Color amarillento en los ojos y la piel (ictericia) ??? Debilidad, mareos ??? Dolor de pecho, en un brazo, la espalda, el emanuel o la maria e??bula ??? V??mitos excesivos que impiden retener medicamentos, l??quidos o agua ??? Si tiene vagina: sangrado vaginal inesperado o ausencia del per??odo ?? Last Reviewed Date: 2021 ?? [id number] [employer]. Todos los derechos reservados. Esta informaci??n no pretende sustituir la atenci??n m??dica profesional. S??lo baker m??dico puede diagnosticar y tratar un problema de negrita. ?? Patient Care team information Care Team Personnel Name: Taylor Newell Position: [facility] RN Member Role: Primary Care Nurse Name: Armando Justice RN Position: [facility] ED RN W/OE and Tasks Member Role: Primary Care Nurse Name: Sarah Bales RN Position: [facility] RN Member Role: Primary Care Nurse Name: Naty Holt RN Position: [facility] RN Member Role: Primary Care Nurse Name: Francesca Day RN Position: [facility] AMB Nurse Member Role: Primary Care Nurse Name: Irene Cotto RN Position: [facility] RN Member Role: Primary Care Nurse Name: Mando Esparza RN Position: [facility] RN Member Role: Primary Care Nurse Name: Williams Talley RN Position: [facility] RN Member Role: Primary Care Nurse Name: Kylie Cheng RN Position: [facility] RN Member Role: Primary Care Nurse Name: Andrew Leach RN Position: [facility] SN RN Member Role: Primary Care Nurse Name: Elaine Powell RN Position: [facility] RN Member Role: Primary Care Nurse Name: Kim Gates MD Position: [facility] Outreach Member Role: PCP Address: Address: [address] [place] [address]- Name: Janice Norwood RN Position: [facility] RN Member Role: Primary Care Nurse Name: Rakesh Barriga RN Position: [facility] RN Member Role: Primary Care Nurse Name: Marla Bell RN Position: [facility] Outside Member Role: Primary Care Nurse Name: Eddy Castle RN Position: [facility] ED RN W/OE and Tasks Member Role: Primary Care Nurse Name: Allyson Bales RN Position: [facility] RN Member Role: Primary Care Nurse Name: Charo Romano RN Position: [facility] SN RN Member Role: Primary Care Nurse Name: Patito Levin RN Position: [facility] RN Member Role: Primary Care Nurse Name: Elaine Hannon RN Position: [facility] RN Member Role: Primary Care Nurse Name: Kathya Pablo RN Position: [facility] Outside Member Role: Primary Care Nurse Name: Ignacio Harris DO Position: [facility] Resident Member Role: Admitting Physician Address: Address: [address] [place] [address]- [place] Name: April Mason DO Position: [facility] Resident Member Role: ED Resident Address: Address: [address] [place] [address]- [place] Name: Dk Oates RN Position: S ED RN W/OE and Tasks Member Role: Patient Care Provider Name: Jonelle Novak Position: S ED TA [facility] Care Team Related Persons Name: REJIBHARGAVCLAUDIA Address: [address] [address]
--- OUTSIDE RECORDS SUMMARY | 2023-12-04 07:58 | XMS_ITS | Continuity of Care Document ---
Author Organization [facility] Address [address] [place] [address]- Care Team Providers Care Crew Supervisor Name Role Phone Kim Gates MD Primary Care Physician Encounter [facility] [place] Date(s): 07/08/23 - 10/22/23 [facility] [address] [place] [id number] Discharge Disposition: A-D/C Home Attending Physician: Bryce Bowden DO Admitting Physician: Bryce Bowden DO Referring Physician: Kim Gates MD Allergies, Adverse [...] 10:51:00 EDT, Inhaler, Route to Pharmacy Electronically, NCPDP_[id number], [facility], 150, cm, 07/24/23 7:21:00 EDT, He... Start Date: 07/26/23 Status: Ordered amLODIPine 5 mg oral tablet 5 mg, By Mouth, Daily, hold if systolic blood pressure is below 120 mmHg, # 90 tablet, Refills 0, Tot. Refills 0, Maintenance, 07/26/23 10:51:00 EDT, Route to Pharmacy Electronically, [facility], Partial fill upon patient request... Start [...] Maintenance, 07/26/23 10:51:00 EDT,Route to Pharmacy Electronically, [facility], Partial fill upon patient request [...] 0 Refills, Maintenance, 07/26/23 10:51:00 EDT, Tablet, [facility], Partial fill upon patient request [...] Maintenance, 07/26/23 10:51:00 EDT,Route to Pharmacy Electronically, [facility], Partial fill upon patient request if the prescription is for a schedule II opioid drNicola. Start Date: 07/26/23 Status: Ordered Glucose Gel [...] 0 Refills, Maintenance, 07/26/23 10:51:00 EDT, Tablet, [facility], Partial fill upon patient request [...] 0 Refills, Maintenance, 07/26/23 10:51:00 EDT, Tablet, [facility], Partial fill upon patient re... Start Date: 07/26/23 Status: Ordered losartan 100 mg oral tablet 1 tablet = 100 mg, By Mouth, Daily, hold if systolic blood pressure is below 120 mmHg, # 90 tablet,0 Refills, Maintenance, 07/26/23 10:51:00 EDT, Tablet, [facility], Partial fill upon patient request if the prescription is for a... Start Date: 07/26/23 Status: Ordered mirtazapine 30 mg oral tablet, disintegrating 1 tablet = 30 mg, By Mouth, Daily at bedtime, # 90 tablet, 0 Refills, Maintenance, 07/26/23 10:51:00 EDT, DIS Tablet, [facility], Partial fill upon patient request if the prescription is for a schedule II opioid drug., 150, cm, 04... Start Date: 07/26/23 Status: Ordered multivitamin with minerals Multiple Vitamins with Minerals oral tablet 1 tablet, By Mouth, Daily, # 90 tablet, 0 Refills, Maintenance, 07/26/23 10:51:00 EDT, Tablet, [facility], Partial fill upon patient request [...] 07/26/23 10:51:00 EDT, Route to Pharmacy Electronically, [facility], Partial fill upon patient request if the prescription is for a schedule I... Start Date: 07/26/23 Status: Ordered thiamine 100 mg oral tablet 100 mg, By Mouth, Daily, # 90 tablet, Refills 0, Tot. Refills 0, Maintenance, 07/26/23 10:51:00 EDT, Route to Pharmacy Electronically, [facility], Partial fill upon patient request if the prescription is for a schedule II opioid d... Start Date: 07/26/23 Status: Ordered traZODone 50 mg oral tablet 50 mg, By Mouth, Daily at bedtime, PRN, # 30 tablet, Refills 0, Tot. Refills 0, Maintenance, Insomnia, 07/26/23 10:51:00 EDT, Route to Pharmacy Electronically, [facility], Partial fill upon patient request [...] Care Nurse Name: Kirsten Fernandes RN Position: [facility] RN Supv Member Role: Primary Care Nurse Name: Melinda Morelos RN Position: [facility] RN Member Role: Primary Care Nurse Name: Sophia Pereira RN Position: [facility] RN Member Role: Primary Care Nurse Name: Rhonda Sapp RN Position: [facility] RN Member Role: Primary Care Nurse Name: Tammy Prescott RN Position: [facility] RN Member Role: Primary Care Nurse Name: Armando Justice RN Position: [facility] ED RN W/OE and Tasks Member Role: Primary Care Nurse Name: Arabella He RN Position: [facility] RN Member Role: Primary Care Nurse Name: Yoli Bryant RN Position: [facility] RN Member Role: Primary Care Nurse Name: Sarah Bales RN Position: [facility] RN Member Role: Primary Care Nurse Name: Nayt Holt RN Position: [facility] RN Member Role: Primary Care Nurse Name: Kim Gonzalez RN Position: [facility] RN Member Role: Primary Care Nurse Name: Allyson Rodriguez RN Position: [facility] RN Member Role: Primary Care Nurse Name: Griselda Guzman RN Position: [facility] RN Member Role: Primary Care Nurse Name: Avril Wright RN Position: [facility] RN Member Role: Primary Care Nurse Name: Linda Manzano RN Position: [facility] RN Member Role: Primary Care Nurse Name: Chris Lobo RN Position: [facility] RN Member Role: Primary Care Nurse Name: Emilee Goldstein RN Position: [facility] RN Member Role: Primary Care Nurse Name: Farncesca Day RN Position: [facility] AMB Nurse Member Role: Primary Care Nurse Name: Eliceo Ortiz RN Position: [facility] RN Member Role: Primary Care Nurse Name: Gwendolyn Petersen RN Position: [facility] RN Member Role: Primary Care Nurse Name: Mando Esparza RN Position: [facility] RN Member Role: Primary Care Nurse Name: Alida Cam RN Position: [facility] RN Member Role: Primary Care Nurse Name: Angella Lehman RN Position: [facility] RN Member Role: Primary Care Nurse Name: Alexandra Huff RN Position: [facility] RN Member Role: Primary Care Nurse Name: Kaya Worley RN Position: [facility] RN Member Role: Primary Care Nurse Name: [...] Care Nurse Name: Naty Collazo RN Position: [facility] RN Member Role: Primary Care Nurse Name: Keira Canada RN Position: [facility] RN Member Role: Primary Care Nurse Name: Karley Morgan Position: [facility] RN Member [...] HOSPITAL Outreach Member Role: PCP Address: Address: [address] [place] [address]- Name: Janice Norwood RN Position: [facility] RN Member Role: Primary Care Nurse Name: Chucky Chandler RN Position: [facility] RN Member Role: Primary Care Nurse Name: Rakesh Barriga RN Position: [facility] RN Member Role: Primary Care Nurse Name: Gwendolyn Renteria LPN Position: [facility] RN Member Role: Primary Care Nurse Name: Marla Bell RN Position: [facility] Furnace Repairer Helper Member Role: Primary Care Nurse Name: Danielle Iraheta RN Position: [facility] RN Member Role: Primary Care Nurse Name: Eddy Castle RN Position: [facility] ED RN W/OE and Tasks Member Role: Primary Care Nurse Name: Laura Loving RN Position: [facility] RN Member Role: Primary Care Nurse Name: Kavya Gaytan RN Position: [facility] RN Member Role: Primary Care Nurse Name: Allyson Bales RN Position: [facility] [...] Care Nurse Name: Kathya Pablo RN Position: [facility] Furnace Repairer Helper Member Role: Primary Care Nurse Care Team Related Persons Name: CLAUDIA PATRICK Address: [address] [place] [address]
--- OUTSIDE RECORDS SUMMARY | 2023-12-04 07:58 | XMS_ITS | Continuity of Care Document ---
Author Organization [facility] Address [address] [facility], [address] Floor, [address] [place] [address]- Care Team Providers Care Long Haul Truck Driver Name Role Phone Kim Gates MD Primary Care Physician Encounter [facility] [place] Date(s[place] 06/13/23 - 07/27/23 [facility] [address], [address] [place] [id number] Attending Physician: Neil Milian MD Admitting Physician: Neil Milian MD Allergies, Adverse Reactions, Alerts Substance Reaction [...] 10:51:00 EDT, Inhaler, Route to Pharmacy Electronically, NCPDP_[id number], [facility], 150, cm, 07/24/23 7:21:00 EDT, He... Start Date: 07/26/23 Status: Ordered amLODIPine 5 mg oral tablet 5 mg, By Mouth, Daily, hold if systolic blood pressure is below 120 mmHg, # 90 tablet, Refills 0, Tot. Refills 0, Maintenance, 07/26/23 10:51:00 EDT, Route to Pharmacy Electronically, [facility], Partial fill upon patient request... [...] Maintenance, 07/26/23 10:51:00 EDT,Route to Pharmacy Electronically, [facility], Partial fill upon patient [...] 0 Refills, Maintenance, 07/26/23 10:51:00 EDT, Tablet, [facility], Partial fill upon patient request if the prescription is fora schedule II opioid drug., 150, cm, 07/24/23 7:21:... Start Date: 07/26/23 Status: Ordered FLUoxetine 20 mg oral capsule 40 mg, By Mouth, Daily, # 90 tablet, Refills 0, Tot. Refills 0, Maintenance, 07/26/23 10:51:00 EDT,Route to Pharmacy Electronically, [facility], Partial fill upon patient [...] 0 Refills, Maintenance, 07/26/23 10:51:00 EDT, Tablet, [facility], Partial fill upon patient [...] 0 Refills, Maintenance, 07/26/23 10:51:00 EDT, Tablet, [facility], Partial fill upon patient re... Start Date: 07/26/23 Status: Ordered losartan 100 mg oral tablet 1 tablet = 100 mg, By Mouth, Daily, hold if systolic blood pressure is below 120 mmHg, # 90 tablet,0 Refills, Maintenance, 07/26/23 10:51:00 EDT, Tablet, [facility], Partial fill upon patient request if the prescription is for a... Start Date: 07/26/23 Status: Ordered mirtazapine 30 mg oral tablet, disintegrating 1 tablet = 30 mg, By Mouth, Daily at bedtime, # 90 tablet, 0 Refills, Maintenance, 07/26/23 10:51:00 EDT, DIS Tablet, [facility], Partial fill upon patient request if the prescription is for a schedule II opioid drug., 150, cm, 04... Start Date: 07/26/23 Status: Ordered multivitamin with minerals Multiple Vitamins with Minerals oral tablet 1 tablet, By Mouth, Daily, # 90 tablet, 0 Refills, Maintenance, 07/26/23 10:51:00 EDT, Tablet, [facility], Partial fill upon patient request if the prescription is for a scheduleII opioid drug., 1 tablet By Mouth Daily, 150, cm,... Start Date: 07/26/23 Status: Ordered risperiDONE 1 mg oral tablet 1 mg, By Mouth, Daily at bedtime, # 90 tablet, Refills 0, Tot. Refills 0, Maintenance, 07/26/23 10:51:00 EDT, Route to Pharmacy Electronically, [facility], Partial fill upon patient request if the prescription is for a schedule II... Start Date: 07/26/23 Status: Ordered simvastatin 20 mg oral tablet 20 mg, By Mouth, Daily at bedtime, # 90 tablet, Refills 0, Tot. Refills 0, Maintenance, 07/26/23 10:51:00 EDT, Route to Pharmacy Electronically, [facility], Partial fill upon patient request if the prescription is for a schedule I... Start Date: 07/26/23 Status: Ordered thiamine 100 mg oral tablet 100 mg, By Mouth, Daily, # 90 tablet, Refills 0, Tot. Refills 0, Maintenance, 07/26/23 10:51:00 EDT, Route to Pharmacy Electronically, [facility], Partial fill upon patient request if the prescription is for a schedule II opioid d... Start Date: 07/26/23 Status: Ordered traZODone 50 mg oral tablet 50 mg, By Mouth, Daily at bedtime, PRN, # 30 tablet, Refills 0, Tot. Refills 0, Maintenance, Insomnia, 07/26/23 10:51:00 EDT, Route to Pharmacy Electronically, [facility], Partial fill upon patient [...] 0 Refills, Maintenance, 07/26/23 10:51:00 EDT, Capsule, [facility]... Start Date: 07/26/23 Status: Ordered Problem [...] Care Team Personnel Name: Taylor Newell Position: [facility] Onco RN Member Role: Primary Care Nurse Name: Naty Pierson RN Position: [facility] RN Member Role: Primary Care Nurse Name: Kirsten Fernandes RN Position: [facility] RN Supv Member Role: Primary Care Nurse Name: Melinda Morelos RN Position: [facility] RN Member Role: Primary Care Nurse Name: Sophia Pereira RN Position: [facility] RN Member Role: Primary Care Nurse Name: Rhonda Sapp RN Position: [facility] RN Member Role: Primary Care Nurse Name: Tammy Prescott RN Position: [facility] RN Member Role: Primary Care Nurse Name: Armando Justice RN Position: [facility] ED RN W/OE and Tasks Member Role: Primary Care Nurse Name: Arabella He RN Position: [facility] RN Member Role: Primary Care Nurse Name: Yoli Bryant RN Position: [facility] RN Member Role: Primary Care Nurse Name: Sarah Bales RN Position: [facility] RN Member Role: Primary Care Nurse Name: Naty Holt RN Position: [facility] RN Member Role: Primary Care Nurse Name: Kim Gonzalez Position: [facility] RN Member Role: Primary Care Nurse Name: Allyson Rodriguez RN Position: [facility] RN Member Role: Primary Care Nurse Name: Avril Wright RN Position: [facility] RN Member Role: Primary Care Nurse Name: Linda Manzano RN Position: [facility] RN Member Role: Primary Care Nurse Name: Chris Lobo RN Position: [facility] RN Member Role: Primary Care Nurse Name: Emilee Goldstein RN Position: [facility] RN Member Role: Primary Care Nurse Name: Francesca Day RN Position: [facility] AMB Nurse Member Role: Primary Care Nurse Name: Radha Zepeda RN Position: [facility] RN Member Role: Primary Care Nurse Name: Eliceo Ortiz RN Position: [facility] RN Member Role: Primary Care Nurse Name: Gwendolyn Petersen RN Position: [facility] RN Member Role: Primary Care Nurse Name: Mando Esparza RN Position: [facility] RN Member Role: Primary Care Nurse Name: Alida Cam Position: [facility] RN Member Role: Primary Care Nurse Name: Angella Lehman RN Position: [facility] RN Member Role: Primary Care Nurse Name: Alexandra Huff RN Position: [facility] RN Member Role: Primary Care Nurse Name: Williams Talley RN Position: [facility] RN Member Role: Primary Care Nurse Name: Gina Teran RN Position: [facility] RN Member Role: Primary Care Nurse Name: Kylie Cheng RN Position: [facility] RN Member Role: Primary Care Nurse Name: Andrew Leach RN Position: [facility] SN RN Member Role: Primary Care Nurse Name: Kirsten Suarez RN Position: [facility] RN Member Role: Primary Care Nurse Name: Naty Collazo RN Position: [facility] RN Member Role: Primary Care Nurse Name: Keira Canada RN Position: [facility] RN Member Role: Primary Care Nurse Name: Karley Morgan Position: [facility] RN Member Role: Primary Care Nurse Name: Haley Alexander Position: [facility] RN Member Role: Primary Care Nurse Name: Elaine Powell RN Position: [facility] RN Member Role: Primary Care Nurse Name: Osmel Torres RN Position: [facility] RN Member Role: Primary Care Nurse Name: Kim Gates MD Position: [facility] Outreach Member Role: PCP Address: Address: [address] [place] [address] Name: Janice Norwood RN Position: [facility] RN Member Role: Primary Care Nurse Name: Chucky Chandler RN Position: [facility] RN Member Role: Primary Care Nurse Name: Rakesh Barriga RN Position: [facility] RN Member Role: Primary Care Nurse Name: Gwendolyn Renteria LPN Position: [facility] RN Member Role: Primary Care Nurse Name: Marla Bell RN Position: [facility] Hospital Metallurgy Teacher Member Role: Primary Care Nurse Name: Danielle Iraheta RN Position: [facility] RN Member Role: Primary Care Nurse Name: Eddy Castle RN Position: [facility] SHANITA RN W/OE and Tasks Member Role: Primary Care Nurse Name: Laura Loving RN Position: [facility] RN Member Role: Primary Care Nurse Name: Kavya Gaytan RN Position: [facility] RN Member Role: Primary Care Nurse Name: Allyson Bales RN Position: [facility] RN Member Role: Primary Care Nurse Name: Bryce Javier RN Position: [facility] RN Member Role: Primary Care Nurse Name: Charo Romano RN Position: [facility] RN Member Role: Primary Care Nurse Name: Patito Levin RN Position: [facility] RN Member Role: Primary Care Nurse Name: Elaine Hannon RN Position: [facility] RN Member Role: Primary Care Nurse Name: Sierra Mcqueen RN Position: [facility] RN Member Role: Primary Care Nurse Name: Kathya Pablo RN Position: [facility] Metallurgy Teacher Member Role: Primary Care Nurse Care Team Related Persons Name: CLAUDIA PATRICK Address: [address] [address]
--- OUTSIDE RECORDS SUMMARY | 2023-12-04 07:58 | XMS_ITS | Continuity of Care Document ---
Author Organization [facility] Address [address] [place] [address]- Care Team Providers Care Planetarium Technician Name Role Phone Kim Gates MD Primary Care Physician [phone] Encounter [facility] Date(s): 11/19/20 - 12/19/20 [facility] [address] [place] [id number] Attending Physician: Derek Barnett [...] 3 Refills, Maintenance, 05/26/20 11:19:00 EST, Tablet, [facility], Partial fill upon patient request if [...] of Left B reast, pT1c, pNX, IDC, 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
--- OUTSIDE RECORDS SUMMARY | 2023-12-04 07:58 | XMS_ITS | Continuity of Care Document ---
Author Organization [facility] ter Address [address] [place] [id number]- Care Team Providers Care Securities Sales Associate Name Role Phone Kim Gates MD Primary Care Physician Encounter [facility] [place] Date(s): 11/12/23 - 11/15/[address] [id number]- Encounter Diagnosis Hematochezia(Final) - 11/12/23 Discharge Disposition: A-Transfer VNA/Home Health Attending Physician: Harmony Hernandez MD Admitting Physician: Abdias Norwood MD Referring Physician: Not on Staff, Referring [...] 10:51:00 EDT, Inhaler, Route to Pharmacy Electronically, NCPDP_ID-[id number], [facility], 150, cm, 07/24/23 7:21:00 EDT, [...] Maintenance, 07/26/23 10:51:00 EDT,Route to Pharmacy Electronically, [facility], Partial fill upon patient request if the prescription is for a schedule II opioid dr... Start Date: 07/26/23 Status: Ordered cefdinir 300 mg oral capsule 1 capsule = 300 mg, By Mouth, Every 12 hours, for 4 days, # 8 capsule, 0 Refills, Acute 11/19/23 12:21:00 EDT, 11/15/23 12:21:00 EDT, Capsule, [facility], Partial fill upon patient request if the prescription is for a schedule II... Start Date: 11/15/23 Stop Date: 11/19/23 Status: Ordered cetirizine 5 mg oral tablet [...] 0 Refills, Maintenance, 07/26/23 10:51:00 EDT, Tablet, [facility], Partial fill upon patient request [...] Maintenance, 07/26/23 10:51:00 EDT,Route to Pharmacy Electronically, [facility], Partial fill upon patient request [...] 0 Refills, Maintenance, 07/26/23 10:51:00 EDT, Tablet, [facility], Partial fill upon patient request [...] 0 Refills, Maintenance, 07/26/23 10:51:00 EDT, Tablet, [facility], Partial fill upon patient re... Start Date: 07/26/23 Status: Ordered losartan 100 mg oral tablet 1 tablet = 100 mg, By Mouth, Daily, hold if systolic blood pressure is below 120 mmHg, # 90 tablet,0 Refills, Maintenance, 07/26/23 10:51:00 EDT, Tablet, [facility], Partial fill upon patient request if the prescription is for a... Start Date: 07/26/23 Status: Ordered magnesium oxide 400 mg oral capsule 1 capsule = 400 mg, By Mouth, 2 times a day, for 30 days, # 60 capsule, 0 Refills, Acute 12/15/23 12:23:00 EDT, 11/15/23 12:23:00 EDT, Capsule, [facility], Partial fill upon patient request if the prescription is for a schedule II... Start Date: 11/15/23 Stop Date: 12/15/23 Status: Ordered metroNIDAZOLE 500 mg oral tablet 1 tablet = 500 mg, By Mouth, 3 times a day, for 4 days, # 12 tablet, 0 Refills, Acute 11/19/23 12:22:00 EDT, 11/15/23 12:22:00 EDT, Tablet, [facility], Partial fill upon patient request if the prescription is for a schedule II opi... Start Date: 11/15/23 Stop Date: 11/19/23 Status: Ordered mirtazapine 30 mg oral tablet, disintegrating 1 tablet = 30 mg, By Mouth, Daily at bedtime, # 90 tablet, 0 Refills, Maintenance, 07/26/23 10:51:00 EDT, DIS Tablet, [facility], Partial fill upon patient request if the prescription is for a schedule II opioid drug., 150, cm, 04... Start Date: 07/26/23 Status: Ordered multivitamin with minerals Multiple Vitamins with Minerals oral tablet 1 tablet, By Mouth, Daily, # 90 tablet, 0 Refills, Maintenance, 07/26/23 10:51:00 EDT, Tablet, [facility], Partial fill upon patient request if the prescription is for a scheduleII opioid drug., 1 tablet By Mouth Daily, 150, cm,... Start Date: 07/26/23 Status: Ordered Protonix 40 mg oral delayed release tablet 1 tablet = 40 mg, By Mouth, Daily, # 30 tablet, 0 Refills, Maintenance, 11/15/23 12:23:00 EDT, EC Tablet, 150, cm, 11/15/23 7:49:00 EDT, Height, 55.6, kg, 11/14/23 9:18:00 EDT, Dry Weight Start Date: 11/15/23 Status: Ordered risperiDONE 1 mg oral tablet [...] 07/26/23 10:51:00 EDT, Route to Pharmacy Electronically, [facility], Partial fill upon patient request if the prescription is for a schedule I... Start Date: 07/26/23 Status: Ordered thiamine 100 mg oral tablet 100 mg, By Mouth, Daily, # 90 tablet, Refills 0, Tot. Refills 0, Maintenance, 07/26/23 10:51:00 EDT, Route to Pharmacy Electronically, [facility], Partial fill upon patient request if the prescription is for a schedule II opioid d... Start Date: 07/26/23 Status: Ordered traZODone 50 mg oral tablet 50 mg, By Mouth, Daily at bedtime, PRN, # 30 tablet, Refills 0, Tot. Refills 0, Maintenance, Insomnia, 07/26/23 10:51:00 EDT, Route to Pharmacy Electronically, [facility], Partial fill upon patient request [...] Active Vitamin D deficiency Confirmed Active Results Radiology Reports * Exam Date Time Procedure Performing Provider Status 11/12/23 2:[address] Abd/Pelvis W/ IV Contrast Only Kim Tran; Auth (Verified) Notes: (CT Abd/Pelvis W/ IV Contrast Only) Reason For Exam: bilat lower abdominal pain; hematochezia;Other: RESULT: CT Abd/Pelvis W/ IV Contrast Only CT Abd/Pelvis W/ IV Contrast Only Hx of Present Illness: Pt coming from home. Pt noticed blood in stool while using bathroom; Reason:Other:; bilat lower abdominal pain; hematochezia; Clinical Question(s): Diverticulitis. TECHNIQUE: Spiral CT through the abdomen and pelvis with IV contrast formatted in 3 planes. 100 cc of Omnipaque 300 was administered intravenously. This study was performed without oral contrast. Weight-based protocol using automatic tube modulation was used to optimize exposure parameters. CTDIvol Body: 10.70 mGy, DLP Body: 580 mGy*cm. COMPARISON: CT abdomen and pelvis 03/24/2023. FINDINGS: Software Design Manager View Findings, Lines and Tubes: None. Visualized Chest: Basilar dependent atelectasis. Status post left mastectomy. Mild cardiomegaly. The heart is normal in size. No pericardial effusion. Diaphragm: Normal. Liver: Mildly nodular contour. Diffuse low-attenuation suggestive of underlying hepatocellular disease. Gallbladder: Punctate calcification that appears adjacent to the gallbladder or within the gallbladder wall and may represent focal adenomyomatosis. No evidence of acute cholecystitis. Bile ducts: No biliary ductal dilation. Spleen: Splenomegaly, measuring up to 13.8 cm, previously 13.3 Pancreas: There is no ductal dilation or suspicious lesion. Adrenal glands: Normal. Kidneys and ureters: No hydronephrosis, stones, or suspicious masses. Small hypodensities that are too small to characterize are noted, requiring no dedicated follow up. Bladder: Sub-2 mm bladder stone. Mild circumferential thickening without significant stranding. Reproductive organs: Mildly heterogeneous uterus. No acute abnormality Stomach, small bowel, and large bowel: Severe diffuse sigmoid diverticulosis. There is an area of subtle pericolonic stranding involving the left hemicolon adjacent to diverticula, which may represent early or mild diverticulitis. There is a segment of wall thickening involving the proximal duodenum Stomach. The stomach otherwise appears unremarkable. Remaining small bowel is normal in caliber. No evidence of obstruction. Appendix: Normal. Peritoneum and retroperitoneum: No ascites or pneumoperitoneum. No omental or mesenteric lesions. Lymph nodes: No enlarged lymph nodes. Blood vessels: Moderate atherosclerotic vascular calcification. No aortic aneurysm. No evidence of venous thrombosis. Abdominal and pelvic wall: Unremarkable. Bones: No acute abnormality. IMPRESSION: Subtle stranding adjacent to left hemicolon diverticula which may represent mild or early acute diverticulitis. Wall thickening of the proximal duodenum, which may reflect duodenitis. Mild splenomegaly. Small bladder calculus. I have personally reviewed the images and I agree with this report. WSN: [id number] Ordering Physician: Joyce Yung Dictated By: Kirsten Dailey DO Dictated Date/Time: 11/12/23 3:00 pm Reviewed By: Tammy Cabrera MD Signed By: Tammy Cabrera MD Signed Date/Time: 11/12/23 3:05 pm Transcribed By: BECKY Transcribed Date/Time: 11/12/23 2:44 pm Vital Signs Most recent to oldest [Reference Range]: 1 2 3 Height 150 cm (11/15/23 7:49 AM) 150 cm (11/14/23 11:25 PM) 150 cm (11/14/23 8:33 PM) Weight 55.6 kg (11/14/23 9:18 AM) 55.6 kg (11/12/23 10:12 PM) Oxygen Saturation [94-100 %] 98 % (11/15/23 7:49 AM) 96 % (11/14/23 11:25 PM) 93 % *L* (11/14/23 8:33 PM) Pulse Rate [55-90 bpm] 61 bpm (11/15/23 7:49 AM) 61 bpm (11/14/23 11:25 PM) 69 bpm (11/14/23 8:33 PM) Body Mass Index [18.5-24.99 kg/m2] 24.71 kg/m2 (11/14/23 9:18 AM) 24.71 kg/m2 (11/12/23 10:12 PM) Blood Pressure [90-138/55-84 mm Hg] 160/72mm Hg *H* (11/15/23 7:49 AM) 123/60mm Hg (11/14/23 11:25 PM) 130/63mm Hg (11/14/23 8:33 PM) Respiratory Rate [16-30 br/min] 18 br/min (11/15/23 7:49 AM) 18 br/min (11/14/23 11:25 PM) 18 br/min (11/14/23 8:33 PM) Temperature [96.8-100.4 DegF] 97.7 DegF (11/15/23 7:49 AM) 98.3 DegF (11/14/23 11:25 PM) 97.9 DegF (11/14/23 8:33 PM) Mode of Delivery (Oxygen) Room air (11/15/23 7:49 AM) Room air (11/14/23 11:25 PM) Room air (11/14/23 8:33 PM) Blood pressure sites Arm, right (11/15/23 7:49 AM) Arm, right (11/14/23 11:25 PM) Arm, right (11/14/23 8:33 PM) Temperature Route Oral (11/15/23 7:49 AM) Oral (11/14/23 11:25 PM) Oral (11/14/23 8:33 PM) Dry Weight 55.6 kg (11/14/23 9:18 AM) 55.6 kg (11/12/23 10:12 PM) Social History Social History Type Response Smoking Status Never (less than 100 in lifetime) entered on: 04/18/23 Sex Clinical Note * Event Display: GG EGD Please click on pdf link to open report History and physical note * Cammy ESPINOZA, Portillo: PERFORM Event Display: History and Physical Hospital Authored Date: Patient: ??DELANEY ARIAS ? Age:??73 Years?Sex:??Female?:??1950?? Chief Complaint/Reason for Consultation Blood in stool History of Present Illness Patient is a 73-year-old Ecuadorean-speaking female with past medical history of diverticulitis, C. 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 History obtained with help of nutrition assistant as patientis Ecuadorean- speaking only.?? She tells me that for the last 3 to 4 days she has been having maroon-colored stools.?? Last bowel movement was today morning and was watery.?? 2 episodes today.?? He reports some left-sided abdominal pain.?? No history of GI bleed or hemorrhoids.?? To the best of her recall she remembers having colonoscopy about 10 years ago and was unremarkable.?? He otherwise deniesany fevers or chills.?? On recent admission she was noted to have C. difficile colitis and was discharged on slow taper of p.o. vancomycin.?? She reports compliance with her medications but her helps her with that so unable to tell me details.?? She told me that he took all her morning medications today.?? She is not aware of any changes in her medications recently.?? Does report some cough which is mostly nonproductive denies any running no source of fever.?? No sick contacts reported.?? No nausea or vomiting.?? She does report some dysuria??without urgency or frequency.?? No back pain.?? No flank pain.?? No confusion or headache or neck pain or vision changes or pedal edema or rashes. ?? In the ED she underwent CT abdomen pelvis which was concerning for possible early diverticulitis. ??She was given a dose of ceftriaxone and metronidazole. ??She was also noted to have anemia which ischronic.? Review of Systems All other review of systems were negative with the exception of those noted above in the HPI.?? Objective Measurements?? Height: 150 cm (11/12/23) Weight: 55.6 kg (11/12/23) Dry Weight: 55.6 kg (11/12/23) Body Mass Index: 24.71 kg/m2 (11/12/23) ? Vital Signs?? Temperature: 98 DegF (11/12/23 23:51:00) Temperature Route: Oral (11/12/23 23:51:00) Pulse Rate: 63 bpm (11/12/23 23:51:00) Respiratory Rate: 18 br/min (11/12/23 23:51:00) Systolic Blood Pressure: 126 mm Hg (11/12/23 23:51:00) Diastolic Blood Pressure: 56 mm Hg (11/12/23 23:51:00) Blood pressure sites: Arm, right (11/12/23 23:51:00) Mean Arterial Pressure: 79 mm Hg (11/12/23 23:51:00) Pulse Pressure: 70 mm Hg (11/12/23 23:51:00) Oxygen Saturation: 95 % (11/12/23 23:51:00) Mode of Delivery (Oxygen): Room air (11/12/23 23:51:00) Early Warning Score: 9 (11/13/23 01:55:02) ? Intake/Output? 11/11 16:17 11/12 07:00 11/11 07:00 11/10 07:00 11/09 07:00 ?? 11/12 05:19 11/12 05:19 11/12 06:59 11/11 06:59 11/10 06:59 Intake ?320 ?0 ?320 ?0 ?0 Output ?0 ?0 ?0 ?0 ?0 Net Total ?320 ?0 ?320 ?0 ?0 ? Physical Exam Constitutional: Alert, in no acute distress. Head EENT: Extraocular muscle movement intact.??Moist mucous membranes.?? Neck: Supple. No JVD. Respiratory: Clear to auscultation. No wheezing or crackles. No use of accessory muscles. Cardiovascular: S1S2 regular. No murmurs, rubs or gallops. Gastrointestinal: Abdomen soft, mild tenderness in the left lower quadrant on deep palpation, no rigidity or guarding??, non-distended. Normal bowel sounds.?? No hemorrhoids or blood on ALEJANDRA.?? Done after patient is content with female??RN at bedside. Genitourinary: No CVA tenderness. Extremities: No lower extremity pitting??edema. No cyanosis or clubbing. Neurologic: AAOx3, Speech normal. No focal neurological deficits. Skin: No rash. Psychiatric: Normal mood and affect Assessment/Plan Diagnoses 1. ??Diverticulitis ??(K57.92) 2. ??Hematochezia ??(K92.1) 2. ??Hematochezia ??(K92.1) 3. ??Anemia ??(D64.9) 4. ??RICHARDS (nonalcoholic steatohepatitis) ??(K75.81) 5. ??Insulin dependent type 2 diabetes mellitus ??(E11.9) 6. ??Seizure disorder ??(G40.909) 7. ??Benign essential hypertension ??(I10) 8. ??Diastolic heart failure ??(I50.30) 9. ??Major depression ??(F32.9) 10. ??Hypothyroidism ??(E03.9) 11. ??History of breast cancer ??(Z85.3) 12. ??Mild intermittent asthma ??(J45.20) ?? 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 Diverticulitis (K57.92) ?Grouped with??Hematochezia (K92.1),??Anemia (D64.9),??RICHARDS (nonalcoholic steatohepatitis) (K75.81) ? History of C. difficile colitis -Her hemoglobin was between 7.5-8.3 in July 2023.??Stable on recheck, no further bowel movement but patient tells me that she had 2 loose stools this morning. --CT abdomen pelvis with subtle stranding adjacent to left hemicolon diverticula which may represent mild early acute diverticulitis, wall thickening of proximal duodenum with medical type duodenitis, mild splenomegaly, small bladder calculus.??Mildly nodular contour of liver suggestive of underlying hepatocellular disease. ? -Trend hemoglobin, transfuse for hemoglobin less than 7, consent obtained from patient with assistance of a yarn weight and strength tester and RN at bedside.??She is okay with transfusion and understands the risk but isunable to sign due to her muscle weakness.??She was able to put a cross on the consent form.??RN witnessed and interpreted witnessed and signed the consent form. -Continue ceftriaxone and metronidazole??for diverticulitis -IV PPI twice daily -No blood on??ALEJANDRA??done with patient's consent and with??female RN at bedside.??Clear liquid diet without reds for now,??monitor for bleeding and hemodynamic instability.??N.p.o. after midnight, consult GI for??further assistance in management with her history of cirrhotic liver morphology.?? Reports last colonoscopy was about 10 years ago and was unremarkable per patient. -She has history of C. difficile colitis on most recent admission, will start prophylactic p.o.??vancomycin 125 mg every 6 hours while on antibiotics.??Will check C. difficile??as she is now having diarrhea ?? Cystitis She does report mild dysuria that she has had for the past few days.??No suprapubic or flank tenderness on exam.??No evidence of cystitis or pyelonephritis on CT abdomen and pelvis, currently on antibiotics which should cover for UTI.??Will add urine culture. ?? Insulin dependent type 2 diabetes mellitus (E11.9):? She tells me that she takes??10 units of Lantus at bedtime at home and NovoLog during the day.??P.o. intake has been poor today.??Will do sliding scale insulin for now.??Day team to start Lantus??based on her p.o. intake and??n.p.o. status. ?? -??med list to be done again by day team with ? Seizure disorder (G40.909):??Continue Keppra, Depakote at bedtime ?? Diastolic heart failure (I50.30):??Hold aspirin, unclear if she is taking it at home.??Restart whenable if bleeding stable.??Continue simvastatin,? GDMT??as??below ?? Major depression (F32.9):??Continue fluoxetine, mirtazapine ?? Hypothyroidism (E03.9):??Continue levothyroxine ?? History of breast cancer (Z85.3):??S/p??radiation and??left lumpectomy, continue anastrozole ?? Mild intermittent asthma (J45.20):??Continue albuterol as needed ?? Benign essential hypertension (I10):??Hold amlodipine, furosemide and losartan in the setting of concern for GI bleed, restart in the morning if stable ?? VTE Prophylaxis:??No heparin in setting of GI bleed, pneumatic compression boots ?? Discharge Planning:? Code Status:??Full resuscitation, confirmed with patient ?Order Code Status:??Code Status Ordered ? Histories Allergies Allergies ?(Active and Proposed Allergies Only) Lovenox? (Severity: Unknown severity, Onset: Unknown) penicillin? (Severity: Unknown severity, Onset: Unknown) ?Reactions: Rash atropine? (Severity: Unknown severity, Onset: Unknown) ?Reactions: SOB - Shortness of breath ? Past Medical History/Problem List Active Problems(27) Benign essential hypertension Cholelithiasis Chronic constipation Delirium, [...] Breast, pT1c, pNX, IDC, ER/ID positive recurrent ??in 2008 after initialdiagnosis in [...] than 100 in lifetime). ? Family History Mother??(Dx'ed age 64): Cancer of breast Sister??(Dx'ed age 44): Cancer of breast Brother: Carcinoma [...] ?? 2 units Call if less than [address] - 249 ?? 4 units 250 - [...] every other day for 4 weeks. ? Inpatient Medications Medications (27) Active SCHEDULED: (14) Anastrozole 1 mg Tablet (anastrozole 1 mg oral tablet) ??1 mg, By Mouth, Daily in AM Ceftriaxone 1 Gm Inj (Ceftriaxone Inj) ??1 Gm, IVPB, Every 24 hours Divalproex 500 mg Tablet (Depakote Tablet) ??500 mg, By Mouth, Daily at bedtime Fluoxetine 20 mg Capsule (FLUoxetine 20 mg oral capsule) ??40 mg, By Mouth, Daily Insulin Lispro 100 units/mL Inj (Insulin LISPRO Sliding Scale) ??1-5 units, Subcutaneous Injection,3 times a day before meals Keppra 500mg Tablet (Keppra 500 mg oral tablet) ??500 mg, By Mouth, 2 times a day Levothyroxine 100 mcg Tablet (levothyroxine 0.1 mg oral tablet) ??100 mcg, By Mouth, Daily in AM Metronidazole 500 mg / NaCL 0.9% 100 mL (Metronidazole IVPB) ??500 mg 100 mL, IVPB, Every 8 hours Mirtazapine 15 mg Tablet (mirtazapine 15 mg oral tablet) ??30 mg, By Mouth, Daily at bedtime NaCl 0.9% Flush 3ml (NaCL 0.9% Flush) ??3 mL, IV Push, Every 8 hours Pantoprazole 40 mg Inj (Pantoprazole Inj) ??40 mg, IV Push Slowly, Every 12 hours Simvastatin 20 mg Tablet (simvastatin 20 mg oral tablet) ??20 mg, By Mouth, Daily at bedtime Thiamine 100 mg Tablet (thiamine 100 mg oral tablet) ??100 mg, By Mouth, Daily Vancomycin 125 mg Capsule (Vancomycin Capsule) ??125 mg, By Mouth, Every 6 hours CONTINUOUS: (0) PRN: (13) Acetaminophen 325 mg Tablet (Acetaminophen Tablet) ??650 mg, By Mouth, Every 4 hours Albuterol 90mcg/Inhalation Inhaler HFA (albuterol CFC free 90 mcg/inh inhalation aerosol) ??180 mcg2 puffs, Inhalation, Every 4 hours Dextrose Inj Syringe (Dextrose 50% Inj Syringe (25Gm)) ??12.5 Gm, IV Push Slowly, Every 20 minutes Dextrose Inj Syringe (Dextrose 50% Inj Syringe (25Gm)) ??25 Gm, IV Push Slowly, Every 15 minutes Docusate Sodium 100 mg Capsule (Docusate Sodium Capsule) ??100 mg 1 capsule, By Mouth, 2 times a day Glucagon 1 mg Inj (Glucagon Inj) ??1 mg, Intramuscular, Once Glucose 40% Gel (15 Gm) (Glucose Gel) ??15 Gm, By Mouth, Every 20 minutes Glucose 40% Gel (15 Gm) (Glucose Gel) ??30 Gm, By Mouth, Every 20 minutes Melatonin 3 mg Tablet (Melatonin Tablet) ??3 mg, By Mouth, Daily at bedtime NaCl 0.9% Flush 3ml (NaCL 0.9% Flush) ??3 mL, IV Push, Every 8 hours Polyethylene Glycol 17 Gm Powder (MiraLax Powder) ??17 Gm 1 pack/packet, By Mouth, Daily Senna Tablet ??8.6 mg 1 tablet, By Mouth, 2 times a day Trazodone 50 mg Tablet (traZODone 50 mg oral tablet) ??50 mg, By Mouth, Daily at bedtime ? Results Recent Labs BLOOD BANK Blood Type A Positive ()?? 11/12/2023 13:28 Antibody Screen Negative ()?? 11/12/2023 13:28 ?? BLOOD COUNT & DIFF WBC 2.6 k/mm3 (Low)?? 11/12/2023 23:33 RBC 2.84 m/mm3 (Low)?? 11/12/2023 23:33 Hgb 7.5 Gm/dL (Low)?? 11/12/2023 23:33 Hct 23.3 % (Low)?? 11/12/2023 23:33 MCV 82.0 femtoliters ()?? 11/12/2023 23:33 MCH 26.4 pg (Low)?? 11/12/2023 23:33 MCHC 32.2 g/dL (Low)?? 11/12/2023 23:33 Platelet Count 102 k/mm3 (Low)?? 11/12/2023 23:33 RDW-SD 41.3 femtoliters ()?? 11/12/2023 23:33 MPV 9.9 femtoliters ()?? 11/12/2023 23:33 Nucleated RBC (Automated) 0.0 #/100 WBC'S ()?? 11/12/2023 23:33 Abs. NRBC 0.0 k/mm3 ()?? 11/12/2023 23:33 Abs. Neut 1.5 k/mm3 ()?? 11/12/2023 13:30 Abs. Lymph 0.6 k/mm3 (Low)?? 11/12/2023 13:30 Abs. Green 0.2 k/mm3 (Low)?? 11/12/2023 13:30 Abs. Eo 0.0 k/mm3 ()?? 11/12/2023 13:30 Abs. Baso 0.0 k/mm3 ()?? 11/12/2023 13:30 Neut % 63.1 % ()?? 11/12/2023 13:30 Lymph % 24.9 % ()?? 11/12/2023 13:30 Green % 10.0 % ()?? 11/12/2023 13:30 Eos % 1.2 % ()?? 11/12/2023 13:30 Baso % 0.4 % ()?? 11/12/2023 13:30 Imm Gran 0.4 % ()?? 11/12/2023 13:30 Abs. Imm Gran 0.0 k/mm3 ()?? 11/12/2023 13:30 ?? CHEM GENERAL Sodium 133 mmol/L ()?? 11/12/2023 13:30 Potassium 4.7 mmol/L ()?? 11/12/2023 13:30 Chloride 97 mmol/L (Low)?? 11/12/2023 13:30 Bicarbonate Level 25 mmol/L ()?? 11/12/2023 13:30 Anion Gap 11 ()?? 11/12/2023 13:30 Glucose Level 389 mg/dL (High)?? 11/12/2023 13:30 Glucose, POC 184 mg/dL (High)?? 11/12/2023 23:01 BUN 18 mg/dL ()?? 11/12/2023 13:30 Creatinine-Blood 0.75 mg/dL ()?? 11/12/2023 13:30 Estimated GFR Creatinine 83 ML/MIN/1.73 M2 ()?? 11/12/2023 13:30 Calcium 9.4 mg/dL ()?? 11/12/2023 13:30 Protein, Total 7.8 Gm/dL ()?? 11/12/2023 13:30 Albumin 3.3 Gm/dL (Low)?? 11/12/2023 13:30 AG Ratio 0.7 ()?? 11/12/2023 13:30 Alkaline Phosphatase 110 units/L (High)?? 11/12/2023 13:30 AST (SGOT) 28 units/L ()?? 11/12/2023 13:30 ALT (SGPT) 22 units/L ()?? 11/12/2023 13:30 Bilirubin, Total 0.4 mg/dL ()?? 11/12/2023 13:30 Lactate 0.9 mmol/L ()?? 11/12/2023 23:33 ?? MISC. CHEMISTRY Hold Gel Top SPECIMEN DISCARDED AFTER 1 WEEK ()?? 11/12/2023 23:33 ?? UA/URINALYSIS Appear/Color, Urine LIGHT YELLOW ()?? 11/12/2023 14:30 Specific [place], Urine 1.008 ()?? 11/12/2023 14:30 pH, Urine 6.0 ()?? 11/12/2023 14:30 Albumin, Urine NEGATIVE ()?? 11/12/2023 14:30 Glucose, Urine 4+ (Abnormal)?? 11/12/2023 14:30 Ketones, Urine NEGATIVE ()?? 11/12/2023 14:30 Bilirubin, Urine NEGATIVE ()?? 11/12/2023 14:30 Hemoglobin, Urine NEGATIVE ()?? 11/12/2023 14:30 Nitrite, Urine NEGATIVE ()?? 11/12/2023 14:30 Leukocyte, Urine 1+ (Abnormal)?? 11/12/2023 14:30 Urobilinogen NORMAL mg/dL ()?? 11/12/2023 14:30 WBC's, Urine 10 /HPF (High)?? 11/12/2023 14:30 RBC's, Urine <1 /HPF ()?? 11/12/2023 14:30 Bacteria SLIGHT HPF (Abnormal)?? 11/12/2023 14:30 ?? URINE OTHER Est Creatinine Clearance 44.33 mL/min ()?? 11/13/2023 01:55 ?? VIROLOGY COVID-19 PCR Result NEGATIVE ()?? 11/13/2023 00:35 ? EKG study * Event Display: ECG 12-Lead Authored Date: Please click on pdf link to open report * Event Display: ECG 12-Lead Authored Date: [id number] Ventricular Rate: 87 BPM Atrial Rate: 87 BPM P-R Interval: 134 ms QRS Duration: 80 ms Q-T Interval: 354 ms QTC Calculation(Bazett): 425 ms P Wingate: 34 degrees R Wingate: -19 degrees T Wingate: 17 degrees Normal sinus rhythm Moderate voltage criteria for LVH, may be normal variant ( R in aVL , [place] product ) Nonspecific T wave abnormality Abnormal ECG When compared with ECG of 18-JUL-2023 09:17, Nonspecific T wave abnormality now evident in Anterior leads Confirmed by Williams Christie ([id number]) on 11/12/2023 2:14:03 PM [place]: [facility] ([facility])Williams lopez [facility] Progress note * Ruma ESPINOZA, Howard: PERFORM Mary ESPINOZA, Bre Cuevas: MODIFY Event Display: Progress Note Hospital Authored Date: [id number] Patient: ??DELANEY ARIAS ? Age:??73 Years?Sex:??Female?:??1950? Brief GI note ?? Patient seen and examined at bedside. Feels well, no new complaints, no melena/bright red blood per rectum. Hemoglobin up to 8.1 from yesterday 7.6.?? And vital signs remained stable. ?? Continues to have some very mild tenderness in the left lower quadrant but otherwise no significantfindings on physical exam. ?? Patient's bleeding seems to have resolved at this point.?? Still with no findings on EGD of active/recent bleed her hematochezia was likely from a diverticular bleed which has self resolved.?? She should continue on antibiotics for a total of 10 to 14 days.?? Could transition to Augmentin versus cefdinir plus metronidazole.?? Will need a repeat colonoscopy and 4 to 6 weeks which we will schedule. ?? Problems ??? Uncomplicated diverticulitis ??? Hematochezia???resolved ?? Plan/recommendations ??? Continue to monitor hemoglobin daily ??? Transition to p.o. antibiotics to complete 10 to 14-day course ??? Will schedule outpatient colonoscopy/follow-up ??? No further inpatient GI workup.?? Will sign off.?? Do not hesitate to reach out with any further questions/concerns ?? Patient has been??seen and??discussed with Dr. Mary Hendrix PGY4 Pager: [phone] ?? Attending Attestation:??I have discussed the case and its management with the fellow and agree withthe findings and plan as documented in the fellow's note. ?? Bre Hernandez MD [facility] * Amado GONZALEZ, Brandi: PERFORM, SIGN, VERIFY Event Display: Progress Note Hospital Authored Date: Patient: DELANEY ARIAS Age: 73 years Sex: Female : 1950 Associated Diagnoses: None Author: Brandi Fischer RN Findings Problem Related to Alteration in Integumentary : Alteration in Integumentary/new 11/14/2023 23:00 EDT Alteration in Integumentary Related to Stage II Goals & Outcomes, Integumentary Nutritional intake is adequate for metabolic needs Interventions, Integumentary Cleanse all wounds with Normal Saline, Collaborate w/ provider for PT/OT consults, Consult Wound Care as needed for further interventions, Encourage & assist pt to change position frequently, Encourage & assist with range of motion exercises, Encourage family participation in pt's care as they are able, Ensure relief modes are on mattress surface & utilized, Increase turning frequency if red or blanched areas appear, Interdisciplinary consults as appropriate, Keep bed as flat as tolerated to reduce shearing, Keep linen clean, dry and wrinkle free, Keepskin clean & dry, Maintain sterile technique with dressing changes, Minimize friction, shear and moisture, Monitor reddened areas for continued or increasing reddness, Record extent of impaired skin integrity, Relieve pressure off bony areas, Reposition pt off reddened areas, Teach Pt/caregivers/s of infection, Teach Pt/S.O. risks of & measures to prevent skin breakdown, Use barrier cream/ointment if pt's skin is frequently moist, Use fecal incontinence appliance if pt incontinent of stool, Use heel & elbow protectors to relieve friction, Use pH balanced no rinse cleanser if incon tinent, Use pressure dispersing devices as appropriate BH Goals/Interventions, Integumentary Yes Integumentary, Problem Start 11/12/2023 6:55 Reviewed plan with, Integumentary Patient Patient Progression, Integumentary Pt progressing according to plan . Nursing Data Activity Data : Activity Data 11/14/2023 13:51 EDT Activity Status ADL Complete bedrest Activity Assistance Maximum assistance . Cardiac Data. : Cardiac Data. 11/14/2023 22:16 EDT Cardiovascular Symptoms None Cardiovascular WNL except . Gastrointestinal Data. : Gastrointestinal Data. 11/14/2023 22:16 EDT Bowel Sounds LUQ Present Bowel Sounds RUQ Present Bowel Sounds LLQ Present Bowel Sounds RLQ Present Last Bowel Movement 11/13/2023 GI WNL except . Genitourinary Data. : Genitourinary Data. 11/14/2023 22:16 EDT WNL . HEENT Data. : HEENT Assessment 11/14/2023 22:16 EDT HEENT, Adult WNL . Integumentary Data. : Integumentary Data. 11/14/2023 22:18 EDT Skin Integrity Not intact Integumentary WNL . Musculoskeletal Data. : Musculoskeletal Data. 11/14/2023 22:16 EDT Musculoskeletal Symptoms None Musculoskeletal WNL except . Neurological Data. : Neurological Data. 11/14/2023 22:16 EDT Neurological Symptoms None Level of Consciousness Full Consciousness Orientated to person, place, time Person, Place, Time, Event Neuro WNL except Memory Intact . Patient Care Data. : Patient Care Data. 11/14/2023 22:37 EDT Turn and Reposition With total assist Sequential Compression Device Not ordered TEDS Not indicated/Not ordered ID band on Yes Allergy band in place/verified Yes Blood Pressure/Venipuncture Do not use left arm Call Bryan in Reach-Ensure Ability to Use Yes Patient Instructed on Use of Call Bryan Yes Standard Safety Bed in low position . Respiratory/Pulmonary Data. : Respiratory/Pulmonary Data. 11/14/2023 22:37 EDT Respiratory Treatment(s) Cough and deep breathe . Vital Signs : VITAL SIGNS SECTION 11/14/2023 23:25 EDT Temperature 98.3 DegF Temperature Route Oral Pulse Rate 61 bpm Respiratory Rate 18 br/min Systolic Blood Pressure 123 mm Hg Diastolic Blood Pressure 60 mm Hg Blood pressure sites Arm, right Mean Arterial Pressure 81 mm Hg Pulse Pressure 63 mm Hg Oxygen Saturation 96 % Mode of Delivery (Oxygen) Room air . Pain Data : PAIN SECTION 11/14/2023 9:16 EDT 1 - 10 Pain Scale Score 5 . Evaluation Patient is alert and oriented times3 Ecuadorean speaking . Lung sounds clear . Positive pedal pulses .Patient reported last time BM 11/13/23. Tolerating Clear liquid diet , no c/o nausae or vomiting. Patient incontinent of urine incontinace care done. Stage 2 on coccyx Z-guard appalied . Plan of care o ngoing.. * Mary ESPINOZA, [place]: PERFORM, MODIFY Event Display: Progress Note Hospital Authored Date: Patient: ??DELANEY ARIAS ? Age:??73 Years?Sex:??Female?:??1950?? Subjective seen at bedside briefly before EGD no acute events overnight hb stable Review of Systems Objective Vital Signs?? Temperature: 97.2 DegF (11/14/23 09:18:00) Temperature Route: Oral (11/14/23 04:13:00) Pulse Rate: 72 bpm (11/14/23 09:18:00) Heart Rate Monitored: 69 bpm (11/14/23 10:36:00) Respiratory Rate: 16 br/min (11/14/23 10:36:00) Systolic Blood Pressure: 116 mm Hg (11/14/23 10:36:00) Diastolic Blood Pressure: 59 mm Hg (11/14/23 10:36:00) Blood pressure sites: Arm, right (11/14/23 04:13:00) Mean Arterial Pressure: 87 mm Hg (11/14/23 09:18:00) Pulse Pressure: 66 mm Hg (11/14/23 04:13:00) Oxygen Saturation: 99 % (11/14/23 10:36:00) Mode of Delivery (Oxygen): Room air (11/14/23 10:36:00) Early Warning Score: 8 (11/14/23 11:28:38) ? Intake/Output? 11/11 16:17 11/13 07:00 11/12 07:00 11/11 07:00 11/10 07:00 ?? 11/13 13:21 11/13 13:21 11/13 06:59 11/12 06:59 11/11 06:59 Intake ?960 ?340 ?300 ?320 ?0 Output ?0 ?0 ?0 ?0 ?0 Net Total ?960 ?340 ?300 ?320 ?0 ? Urine Count ?4 ?1 ?3 ?0 ?0 ? Physical Exam General:??No acute distress, HEENT:??Atruamatic/normocephalic Cardio:??Regular rate, no r/g/m, Respiratory:??CTA Abdomen:??Soft, NT, nondistended Extremities:??No peripheral cyanosis or edema. Vascular:??Pulses present and equal distally. Neuro:??No focal deficits Results Recent Labs BLOOD COUNT & DIFF WBC 2.1 k/mm3 (Low)?? 11/14/2023 07:26 RBC 2.91 m/mm3 (Low)?? 11/14/2023 07:26 Hgb 7.6 Gm/dL (Low)?? 11/14/2023 07:26 Hct 24.2 % (Low)?? 11/14/2023 07:26 MCV 83.2 femtoliters ()?? 11/14/2023 07:26 MCH 26.1 pg (Low)?? 11/14/2023 07:26 MCHC 31.4 g/dL (Low)?? 11/14/2023 07:26 Platelet Count 109 k/mm3 (Low)?? 11/14/2023 07:26 RDW-SD 42.6 femtoliters ()?? 11/14/2023 07:26 MPV 9.8 femtoliters ()?? 11/14/2023 07:26 Nucleated RBC (Automated) 0.0 #/100 WBC'S ()?? 11/14/2023 07:26 Abs. NRBC 0.0 k/mm3 ()?? 11/14/2023 07:26 Abs. Neut 1.2 k/mm3 (Low)?? 11/14/2023 07:26 Abs. Lymph 0.5 k/mm3 (Low)?? 11/14/2023 07:26 Abs. Green 0.3 k/mm3 (Low)?? 11/14/2023 07:26 Abs. Eo 0.1 k/mm3 ()?? 11/14/2023 07:26 Abs. Baso 0.0 k/mm3 ()?? 11/14/2023 07:26 Neut % 57.0 % ()?? 11/14/2023 07:26 Lymph % 25.1 % ()?? 11/14/2023 07:26 Green % 14.0 % (High)?? 11/14/2023 07:26 Eos % 2.9 % ()?? 11/14/2023 07:26 Baso % 0.5 % ()?? 11/14/2023 07:26 Imm Gran 0.5 % ()?? 11/14/2023 07:26 Abs. Imm Gran 0.0 k/mm3 ()?? 11/14/2023 07:26 ?? CHEM GENERAL Sodium 138 mmol/L ()?? 11/14/2023 07:26 Potassium 4.1 mmol/L ()?? 11/14/2023 07:26 Chloride 101 mmol/L ()?? 11/14/2023 07:26 Bicarbonate Level 27 mmol/L ()?? 11/14/2023 07:26 Anion Gap 10 ()?? 11/14/2023 07:26 Glucose Level 170 mg/dL (High)?? 11/13/2023 06:58 Glucose, POC 144 mg/dL (High)?? 11/14/2023 11:16 BUN 16 mg/dL ()?? 11/13/2023 06:58 Creatinine-Blood 0.77 mg/dL ()?? 11/14/2023 07:26 Estimated GFR Creatinine 80 ML/MIN/1.73 M2 ()?? 11/14/2023 07:26 Calcium 9.2 mg/dL ()?? 11/13/2023 06:58 Magnesium 1.6 mg/dL ()?? 11/14/2023 07:26 Protein, Total 7.2 Gm/dL ()?? 11/13/2023 06:58 Albumin 3.2 Gm/dL (Low)?? 11/13/2023 06:58 AG Ratio 0.8 ()?? 11/13/2023 06:58 Alkaline Phosphatase 102 units/L ()?? 11/13/2023 06:58 AST (SGOT) 22 units/L ()?? 11/13/2023 06:58 ALT (SGPT) 18 units/L ()?? 11/13/2023 06:58 Bilirubin, Total 0.3 mg/dL ()?? 11/13/2023 06:58 Lactate 0.9 mmol/L ()?? 11/12/2023 23:33 ?? COAG INR 1.0 ()?? 11/13/2023 07:55 Protime (PT) 11.1 seconds ()?? 11/13/2023 07:55 ?? URINE OTHER Est Creatinine Clearance 43.18 mL/min ()?? 11/14/2023 08:47 ?? VIROLOGY COVID-19 PCR Result NEGATIVE ()?? 11/13/2023 00:35 ? Assessment/Plan Diagnoses Cystitis ??(N30.90) Gastritis ??(K29.70) Pancytopenia ??(D61.818) 1. ??Diverticulitis ??(K57.92) 2. ??Hematochezia ??(K92.1) 2. ??Hematochezia ??(K92.1) 3. ??Anemia ??(D64.9) 4. ??RICHARDS (nonalcoholic steatohepatitis) ??(K75.81) 5. ??Insulin dependent type 2 diabetes mellitus ??(E11.9) 6. ??Seizure disorder ??(G40.909) 7. ??Benign essential hypertension ??(I10) 8. ??Diastolic heart failure ??(I50.30) 9. ??Major depression ??(F32.9) 10. ??Hypothyroidism ??(E03.9) 11. ??History of breast cancer ??(Z85.3) 12. ??Mild intermittent asthma ??(J45.20) ?? Delaney Arias is a 73-year-old Ecuadorean-speaking female with past medical history of diverticulitis, C. difficile colitis during admission in July 2023, insulin- dependent type 2 diabetes, seizure disorder, diastolic heart failure, cirrhotic morphology of liver, hypothyroidism, major depression admitted to psych few months ago treated with multiple ECT during hospitalization, failure to thrive, breast cancer s/p radiation and left mastectomy, mild intermittent asthma, presented to ED today for dark maroon stools.? Diverticulitis (K57.92) ?Grouped with??Hematochezia (K92.1),??Anemia (D64.9),??RICHARDS (nonalcoholic steatohepatitis) (K75.81) Gastritis ??(K29.70) ? History of C. difficile colitis --Her hemoglobin was between 7.5-8.3 in July 2023.?? --CT abdomen pelvis with subtle stranding adjacent to left hemicolon diverticula which may represent mild early acute diverticulitis, wall thickening of proximal duodenum with medical type duodenitis, mild splenomegaly, small bladder calculus.??Mildly nodular contour of liver suggestive of underlying hepatocellular disease. -Trend hemoglobin, transfuse for hemoglobin less than 7, consent obtained from patient with assistance of a yarn weight and strength tester and RN at bedside.??She is okay with transfusion and understands the risk but isunable to sign due to her muscle weakness.??She was able to put a cross on the consent form.??RN witnessed and interpreted witnessed and signed the consent form. -Continue ceftriaxone and metronidazole??for diverticulitis -IV PPI twice daily -GI following -Continue PO Vanco -EGD done 11/13 - showing gastritis, f/u biopsy. Colonoscopy as outpatient. ?? Cystitis ??(N30.90) She does report mild dysuria that she has had for the past few days.??No suprapubic or flank tenderness on exam.??No evidence of cystitis or pyelonephritis on CT abdomen and pelvis, currently on antibiotics which should cover for UTI.??Urine culture pending ?? Insulin dependent type 2 diabetes mellitus (E11.9):? She tells me that she takes??10 units of Lantus at bedtime at home and NovoLog during the day.??P.o. intake has been poor today.??sliding scale insulin for now.??Day team to start Lantus??based on her p.o. intake and??n.p.o. status. ?? -??med list to be done again by day team with ?? Seizure disorder (G40.909):??Continue Keppra, Depakote at bedtime ?? Diastolic heart failure (I50.30):?? Hold aspirin, unclear if she is taking it at home, restart when able Continue simvastatin,? GDMT??as??below ?? Pancytopenia ??(D61.818) likely 2/2??liver disease and infection continue monitoring ?? Major depression (F32.9):??Continue fluoxetine, mirtazapine ?? Hypothyroidism (E03.9):??Continue levothyroxine ?? History of breast cancer (Z85.3):??S/p??radiation and??left lumpectomy, continue anastrozole ?? Mild intermittent asthma (J45.20):??Continue albuterol as needed ?? Benign essential hypertension (I10):??Hold amlodipine, furosemide and losartan in the setting of concern for GI bleed, restart in the morning if stable ?? VTE Prophylaxis:??No heparin in setting of GI bleed, pneumatic compression boots ? Code Status:??Full resuscitation, confirmed with patient ?Order Code Status:??Code Status Ordered ? Consult note * Howard Hendrix MD: PERFORM Howard Hendrix MD: PERFORM Event Display: Consultation Note Authored Date: [id number] Patient: ??DELANEY ARIAS ? Age:??73 Years?Sex:??Female?:??1950?? Referrring Provider Not on Staff, Referring MD Chief Complaint Pt coming from home. Pt noticed blood in stool while using bathroom Reason for Consultation Hematochezia,??cirrhosis History of Present Illness Delaney is a 73-year-old female with a past medical history of diverticulosis with prior episodes ofdiverticulitis, history of C. difficile colitis in July 2023, type 2 diabetes mellitus, seizure disorder, heart failure with preserved ejection fraction, liver cirrhosis, hypothyroidism, depression requiring multiple treatments with ECT, history of breast cancer s/p radiation and left- sided mastectomy, asthma who presented to the ED on 11/11 after multiple episodes of bright red blood per rectum at home. ?? Patient reports that on the morning of 11/11 she had multiple episodes of bright red blood per rectum.?? She reports 3 total episodes at home.?? She also reports that over the past few days she has been having some pain around the lower aspects of her abdomen especially around the left lower quadrant.?? She denies any change in her recent bowel movement character, fevers, chills, nausea, vomiting.?? She also denies any lightheadedness, shortness of breath, or dizziness.?? Due to the episodes of bleeding she presented to the ED for further evaluation.?? Since arrival to the ED she has been afebrile and hemodynamically stable.?? Labs show a white count of 2.4, hemoglobin of 7.6 with repeat of 7.2, platelets 96-100, INR 1.0, and a normal CMP.?? Of note her hemoglobin on 07/27/2023 was 8.2.?? CT imaging was obtained which showed stranding next to the left hemicolon diverticula, wall thickening of the duodenum, splenomegaly, and a nodular liver.?? The GI team were consulted for further evaluation of both hematochezia as well as her liver cirrhosis. ?? Upon my evaluation patient was lying comfortably in bed without any acute distress.?? Reported she was having some mild abdominal pain with physical exam showing tenderness to palpation in the left lower quadrant.?? She reports she has not had any bowel movements since after her last bloody bowel movement on 11/11.?? Reports having had both EGD/colonoscopies performed in the past with the most recent EGD/colon being in 2010 in the setting of possible GI bleed and was found to have nonbleedingdiverticulosis. Review of Systems All systems reviewed and are negative with the exception of those discussed in HPI Physical Exam Vitals & Measurements T:??98.3?F?? TMIN:??98.0?F?? TMAX:??98.3?F?? HR:??63??(Peripheral)?? RR:??18?? BP:??116/54?? SpO2:??93%?? WT:??55.6??kg?? General: No acute distress HEENT: EOMI, mucous membranes moist, no scleral icterus Abdominal: Moderate tenderness to palpation in left lower quadrant. Extremities: No lower extremity edema Neuro: AAO x3.?No asterixis Psych: Affect appropriate Skin: No lesions, wounds, rashes, no jaundice Assessment/Plan Assessment:??Delaney is a 73-year-old female with a past medical history of diverticulosis with prior episodes of diverticulitis, history of C. difficile colitis in July 2023, type 2 diabetes mellitus, seizure disorder, heart failure with preserved ejection fraction, liver cirrhosis, hypothyroidism, depression requiring multiple treatments with ECT, history of breast cancer s/p radiation and left-sided mastectomy, asthma who presented to the ED on 11/11 after multiple episodes of bright red blood per rectum at home. ?? 1) Uncomplicated diverticulitis 2) Hematochezia 3) Wall thickening of duodenum ?? Patient is having hematochezia which is also associated with left lower quadrant pain.??Imaging shows stranding around the left hemicolon as well as wall thickening of the duodenum.??The tenderness in the left lower quadrant as well as stranding of the left colon on imaging suggest active diverticul itis.??Ideally we would not perform colonoscopy in the acute phase of this infection and would allow treatment of the infection with colonoscopy planned around 4 to 6 weeks afterwards.??However, if patient continues to bleed that would warrant a more urgent evaluation.??However, could perform an EGD to evaluate for any source of bleed from upper GI tract in the setting of thickening around the duodenum seen on imaging. ?? Plan/recommendations ??? Maintain 2 large-bore IVs ??? Transfuse for hemoglobin less than 7 ??? Continue to monitor for GI bleeding ? Continue to trend H&H ??? Continue ceftriaxone and metronidazole ??? Continue IV PPI ??? Plan for EGD tomorrow ??? Can continue clear liquid diet for now but n.p.o. after midnight ??? Will plan for colonoscopy outpatient or more urgently if no resolution in bleeding ?? 4) Compensated liver cirrhosis ?? Patient with a nodular liver on imaging, low platelets, and low albumin all point towards cirrhosis.??Also has evidence of splenomegaly which also argues this fact.??Fib 4 score is 3.89 which correlates to a fibrosis index of 4-6 therefore most likely does have cirrhosis.??Most likely metabolic dysfunction associated liver disease however will need other causes ruled out but does not need to be on an urgent basis and can be evaluated outpatient.??Currently no evidence of decompensation. ?? Plan/recommendations ??? Will schedule outpatient follow-up for cirrhosis ??? Continue on ceftriaxone for 5 days in the setting of cirrhosis and GI bleed ?? Patient has been??seen and??discussed with Dr. Mary Hendrix PGY4 Pager: [phone] ?? Attending Attestation:??I have seen and evaluated this patient. I have discussed the case and its management with the fellow and agree with the findings and plan as documented in the fellow's note. ?? Suspect likely diverticular bleeding, but has CT findings that point towards acute diverticulitis. Physical exam also shows TTP in the LLQ. Personal review of CT does not show??concerning features ofa mass lesion??in the LLQ or??elsewhere in the colon - as such, would hold off on colonoscopy at this time, but??this will need to be done in about 4-[address] findings do show significant thickening of the distal stomach and part of the duodenum, so can proceed with an EGD to evaluatefurther.? Bre Hernandez MD [facility] ?? Problem List/Past Medical History Ongoing Benign essential hypertension Cholelithiasis Chronic constipation Delirium, [...] in 2008 after initial diagnosis in 1995. 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, left arm Recurrent falls Recurrent major depressive episodes, moderate Seizure disorder Transaminitis Type 2 diabetes mellitus with diabetic neuropathy Vitamin D deficiency Procedure/Surgical History ???Lumpectomy with Radiation Seed Implantation (Right, Breast) (04/06/2020)???Mastectomy, left (2008)???Breast lumpectomy, left (1995) Medications Inpatient Acetaminophen Tablet, 650 mg, By Mouth, Every 4 hours, PRN albuterol CFC free 90 mcg/inh inhalation aerosol, 180 mcg= 2 puffs, Inhalation, Every 4 hours, PRN anastrozole 1 mg oral tablet, 1 mg, By Mouth, Daily in AM Ceftriaxone Inj, 1 Gm, IVPB, Every 24 hours Depakote Tablet, 500 mg, By Mouth, Daily at bedtime Dextrose 50% Inj Syringe (25Gm), 12.5 Gm, IV Push Slowly, Every 20 minutes, PRN Dextrose 50% Inj Syringe (25Gm), 25 Gm, IV Push Slowly, Every 15 minutes, PRN Docusate Sodium Capsule, 100 mg= 1 capsule, By Mouth, 2 times a day, PRN FLUoxetine 20 mg oral capsule, 40 mg, By Mouth, Daily Glucagon Inj, 1 mg, Intramuscular, Once, PRN Glucose Gel, 15 Gm, By Mouth, Every 20 minutes, PRN Glucose Gel, 30 Gm, By Mouth, Every 20 minutes, PRN Insulin LISPRO Sliding Scale, 1-5 units, Subcutaneous Injection, 3 times a day before meals Keppra 500 mg oral tablet, 500 mg, By Mouth, 2 times a day levothyroxine 0.1 mg oral tablet, 100 mcg, By Mouth, Daily in AM Melatonin Tablet, 3 mg, By Mouth, Daily at bedtime, PRN Metronidazole IVPB, 500 mg= 100 mL, IVPB, Every 8 hours MiraLax Powder, 17 Gm= 1 pack/packet, By Mouth, Daily, PRN mirtazapine 15 mg oral tablet, 30 mg, By Mouth, Daily at bedtime NaCL 0.9% Flush, 3 mL, IV Push, Every 8 hours NaCL 0.9% Flush, 3 mL, IV Push, Every 8 hours, PRN Pantoprazole Inj, 40 mg, IV Push Slowly, Every 12 hours Senna Tablet, 8.6 mg= 1 tablet, By Mouth, 2 times a day, PRN simvastatin 20 mg oral tablet, 20 mg, By Mouth, Daily at bedtime thiamine 100 mg oral tablet, 100 mg, By Mouth, Daily traZODone 50 mg oral tablet, 50 mg, By Mouth, Daily at bedtime, PRN Vancomycin Capsule, 125 mg, By Mouth, Every 6 hours Home acetaminophen 325 mg oral tablet, 650 mg, By Mouth, Every 6 hours, PRN albuterol CFC free 90 mcg/inh inhalation aerosol, 180 mcg= 2 puffs, Inhalation, Every 4 hours, PRN,2 refills amLODIPine 5 mg oral tablet, 5 mg, By Mouth, Daily anastrozole 1 mg oral tablet, 1 mg, By Mouth, Daily in AM aspirin 81 mg oral tablet, chewable, 81 mg, By Mouth, Daily cetirizine 5 mg oral tablet, 5 mg, By Mouth, Daily at bedtime divalproex sodium 500 mg oral enteric coated tablet, 500 mg, By Mouth, Daily at bedtime ferrous sulfate 325 mg oral enteric coated tablet, 325 mg, By Mouth, Daily FLUoxetine 20 mg oral capsule, 40 mg, By Mouth, Daily Glucose Gel, 15 Gm, By Mouth, Every 20 minutes, PRN insulin lispro 100 units/mL injectable solution, 2-10 units, Subcutaneous Injection, 3 times a day before meals Keppra 500 mg oral tablet, 500 mg, By Mouth, 2 times a day Lantus Inj, 6 units= 0.06 mL, Subcutaneous Injection, Daily at bedtime Lasix 20 mg oral tablet, 20 mg, By Mouth, Daily levothyroxine 0.1 mg oral tablet, 100 mcg, By Mouth, Daily in AM losartan 100 mg oral tablet, 100 mg= 1 tablet, By Mouth, Daily mirtazapine 30 mg oral tablet, disintegrating, 30 mg= 1 tablet, By Mouth, Daily at bedtime multivitamin with minerals Multiple Vitamins with Minerals oral tablet, 1 tablet, By Mouth, Daily risperiDONE 1 mg oral tablet, 2 mg, By Mouth, 2 times a day simvastatin 20 mg oral tablet, 20 mg, By Mouth, Daily at bedtime thiamine 100 mg oral tablet, 100 mg, By Mouth, Daily traZODone 50 mg oral tablet, 50 mg, By Mouth, Daily at bedtime, PRN vancomycin 125 mg oral capsule, See Instructions Allergies Lovenox atropine??(SOB - Shortness of breath) penicillin??(Rash) Social History Alcohol Use: Never. Nutrition/Health Diet: Regular. Caffeine intake amount: coffee and soda not too much. Other Name: Ethnicity: . Substance Abuse Use: Never. Tobacco Use: Never (less than 100 in lifetime). Family History Cancer of breast: Mother and Sister. Carcinoma in situ of spleen: Brother. Note * Gallagher Dejon GONZALEZ: PERFORM Event Display: Discharge/Transfer Note Hospital Authored Date: [id number] Nursing Discharge Note Entered On: 11/15/2023 13:12 EDT Performed On: 11/15/2023 15:31 EDT by Gallagher Dejon GONZALEZ Nursing Discharge Note 2 Discharge Time : 11/15/2023 15:31 EDT Gallagher Dejon GONZALEZ - 11/15/2023 15:37 EDT Discharge Level of Care at Discharge : Homehealth/VNA Discharge Nursing Homes/Rehab Facilities : [facility] V[facility]/Hospice/Home Care([id number]) : [facility] [phone] Patient Left Unit Via : Chair Van Patient Accompanied Off Unit with : Ambulance/[facility] Personnel Handover Given to Transport Personnel : Yes DC Instructions Provided & Signed by Pt : Yes Patient Understands D/C Instructions : Yes Patient Instructions Discharge Signed : Yes Did Pt have Specialty Bed or Wound Vac : No Gallagher RN, Dejon - 11/15/2023 15:31 EDT * Harmony Hernandez MD: PERFORM Event Display: Discharge/Transfer Note Hospital Authored Date: [id number] Patient: ??DELANEY ARIAS ? Age:??73 Years?Sex:??Female?:??1950?? Patient Information Discharge Location: W3 Primary Care Physician: Kim Gates MD Admit Date/Time: 11/12/23 16:17 Discharge Disposition Discharge Disposition: Home with Home Health Discharge Diagnosis Pancytopenia (D61.818) Gastritis (K29.70) Cystitis (N30.90) Diverticulitis (K57.92) Hematochezia (K92.1) Hematochezia (K92.1) Anemia (D64.9) RICHARDS (nonalcoholic steatohepatitis) (K75.81) Insulin dependent type 2 diabetes mellitus (E11.9) Seizure disorder (G40.909) Diastolic heart failure (I50.30) Major depression (F32.9) Hypothyroidism (E03.9) History of breast cancer (Z85.3) Mild intermittent asthma (J45.20) Benign essential hypertension (I10) _ Discharge Medications Acetaminophen (acetaminophen 325 mg oral tablet)?650?Milligram?By Mouth?Every 6 hours?as needed?/Headache?Pain , Mild Albuterol (albuterol CFC free 90 mcg/inh inhalation aerosol)?2?puff(s)?Inhalation?Every4 hours?as needed?Wheezing/Shortness of Breath Amlodipine (amLODIPine 5 mg oral tablet)?5?Milligram?By Mouth?Daily?hold if systolicblood pressure is below 120 mmHg Anastrozole (anastrozole 1 mg oral tablet)?1?Milligram?By Mouth?Daily in AM Aspirin (aspirin 81 mg oral tablet, chewable)?81?Milligram?By Mouth?Daily Cefdinir (cefdinir 300 mg oral capsule)?1?capsule?300?Milligram?By Mouth?Every 12hours?for 4?Days Cetirizine (cetirizine 5 mg oral tablet)?5?Milligram?By Mouth?Daily [...] ?? 2 units Call if less than 13749 - 249 ?? 4 units 250 - [...] systolic blood pressure is below 120 mmHg Magnesium Oxide (magnesium oxide 400 mg oral capsule)?1?capsule?400?Milligram?By Mouth?2 times a day?for 30?Days Metronidazole (metroNIDAZOLE 500 mg oral tablet)?1?tab(s)?500?Milligram?By Mouth?3 times a day?for 4?Days Mirtazapine (mirtazapine 30 mg oral tablet, disintegrating)?1?tab(s)?30?Milligram?ByMouth?Daily at bedtime Multivitamin With Minerals (multivitamin with minerals Multiple Vitamins with Minerals oral tablet)?1?tab(s)?By Mouth?Daily Pantoprazole (Protonix 40 mg oral delayed release tablet)?1?tab(s)?40?Milligram?By Mouth?Daily Risperidone (risperiDONE 1 mg oral tablet)?2?Milligram?By [...] day for 4 weeks. ? Medications Started Mag oxide Protonix Cefdinir Metronidazole Medications Discontinued none Doses Changed none PCP Follow-Up/Heads-Up ?? Please ensure GI f/u ?? Hospital Course Delaney Arias is a 73-year-old Ecuadorean-speaking female with past medical history of diverticulitis, C. difficile colitis during admission in July 2023, insulin- dependent type 2 diabetes, seizure disorder, diastolic heart failure, cirrhotic morphology of liver, hypothyroidism, major depression admitted to psych few months ago treated with multiple ECT during hospitalization, failure to thrive, breast cancer s/p radiation and left mastectomy, mild intermittent asthma, presented to ED today for dark maroon stools. ? Diverticulitis (K57.92) ? Grouped with Hematochezia (K92.1), Anemia (D64.9), RICHARDS (nonalcoholic steatohepatitis) (K75.81) Gastritis (K29.70) ? History of C. difficile colitis ??--Her hemoglobin was between 7.5-8.3 in July 2023. ??--CT abdomen pelvis with subtle stranding adjacent to left hemicolon diverticula which may represent mild early acute diverticulitis, wall thickening of proximal duodenum with medical type duodenitis, mild splenomegaly, small bladder calculus. Mildly nodular contour of liver suggestive of underlying hepatocellular disease. -Trend hemoglobin, transfuse for hemoglobin less than 7, consent obtained from patient with assistance of a yarn weight and strength tester and RN at bedside. She is okay with transfusion and understands the risk but is unable to sign due to her muscle weakness. She was able to put a cross on the consent form. RN witnessed and interpreted witnessed and signed the consent form. Patient received IV ceftriaxone and metronidazole for diverticulitis, PPI BID, was continued on PO vancomycin EGD done 11/13 - showing gastritis, f/u biopsy. Colonoscopy as outpatient. Continue antibiotics - Cefdinir and Metronidazole for 4 more days to finish 7 days total Continue PO vanco with taper as previously planned F/u with GI for colonoscopy Continue Protonix ? Cystitis (N30.90) She does report mild dysuria that she has had for the past few days. No suprapubic or flank tenderness on exam. No evidence of cystitis or pyelonephritis on CT abdomen and pelvis, currently on antibiotics which should cover for UTI. Urine culture with Klebsiella pneumoniae ? Insulin dependent type 2 diabetes mellitus (E11.9): Continue home meds ?? Seizure disorder (G40.909): Continue Keppra, Depakote at bedtime ? Diastolic heart failure (I50.30): Continue home meds ?? Pancytopenia (D61.818) likely 2/2 liver disease and infection ??continue monitoring ?? Major depression (F32.9): Continue fluoxetine, mirtazapine ? Hypothyroidism (E03.9): Continue levothyroxine ? History of breast cancer (Z85.3): S/p radiation and left lumpectomy, continue anastrozole ? Mild intermittent asthma (J45.20): Continue albuterol as needed ? Benign essential hypertension (I10): Continue home meds ? Objective Vital Signs?? Temperature: 97.7 DegF (11/15/23 07:49:00) Temperature Route: Oral (11/15/23 07:49:00) Pulse Rate: 61 bpm (11/15/23 07:49:00) Respiratory Rate: 18 br/min (11/15/23 07:49:00) Systolic Blood Pressure:??160 mm Hg??High (11/15/23 07:49:00) Diastolic Blood Pressure: 72 mm Hg (11/15/23 07:49:00) Blood pressure sites: Arm, right (11/15/23 07:49:00) Mean Arterial Pressure: 101 mm Hg (11/15/23 07:49:00) Pulse Pressure: 88 mm Hg (11/15/23 07:49:00) Oxygen Saturation: 98 % (11/15/23 07:49:00) Mode of Delivery (Oxygen): Room air (11/15/23 07:49:00) Early Warning Score: 8 (11/15/23 11:33:48) ? . Physical Exam General:??No acute distress, HEENT:??Atruamatic/normocephalic Cardio:??Regular rate, no r/g/m, Respiratory:??CTA Abdomen:??Soft, NT, nondistended Extremities:??No peripheral cyanosis or edema. Vascular:??Pulses present and equal distally. Neuro:??No focal deficits Surgical Procedures Gastroscopy (EGD) Diagnostic 11/14/2023 10:04 Patient Education Titles WebMD [employer] Patient Education - Lower GI Bleeding (Stable)?? [employer] Patient Education - Diverticulitis?? [employer] Patient Education - Diverticulitis?? [employer] Patient Education - Treating Gastritis?? Follow-Up Appointments Added Follow Up ?Time Frame ?Comments Kim Gates MD Home Health Face to Face *Denotes mandatory sosa ?? *I certify that this patient is under my care and that I or an allowed non- physician working with me had a face to face encounter with the patient on this date:??11/15/2023 12:35 ?? *The encounter with the patient was in whole, or in part, for the following medical condition, which is the primary diagnosis(es) for home health care:??Pancytopenia (D61.818) Gastritis (K29.70) Cystitis (N30.90) Diverticulitis (K57.92) Hematochezia (K92.1) Hematochezia (K92.1) Anemia (D64.9) RICHARDS (nonalcoholic steatohepatitis) (K75.81) Insulin dependent type 2 diabetes mellitus (E11.9) Seizure disorder (G40.909) Diastolic heart failure (I50.30) Major depression (F32.9) Hypothyroidism (E03.9) History of breast cancer (Z85.3) Mild intermittent asthma (J45.20) Benign essential hypertension (I10) ?? *Select the indications for the discipline/s that are being arranged for this patient. Nursing (select all that apply): [_] None [x_] Medication management (reconciliation, teaching)?? [_x] Chronic disease management?? [_x] Wound care and treatment?? [_x] Home safety evaluation [_] Administer SQ/IM/IV medications?? [_] Cath care?? [_] Drain care?? [_] Trach or GT care?? Other _ Occupation Therapy (select all that apply): [_] None [_] ADL Management [_] Fall prevention training [_] Energy conservation [_] Cognitive training Other _ Physical Therapy (select all that apply): [_] None [_x] Functional mobility training [x_] Home exercise program to strengthen [x_] Increase ROM?? [x_] Falls prevention training [x_] Home maintenance program for chronic disease Other _ Speech Therapy (select all that apply): [_] None [_] Swallow evaluation and training [_] Speech and language training [_] Cognitive training to process, organize, and/or recall information Other _ ? *Homebound due to (select all that apply): [_] Inability to leave home without assistance/supervision [_x] Inability to ambulate without assistance [_] Pain [x_] Decreased strength and endurance [_] Unsteady gait [_] Severe SOB and fatigue [_] Impaired transfers [x_] Inability to negotiate stairs [_x] Limited weight bearing [_] Mental status change? *Physician Signature:??Harmony Hernandez MD ?? *By signing this, I certify that I have personally evaluated the patient and agree with the findings and recommendations as documented above. ? Results Discharge Labs BACTERIOLOGY Urine Culture Results Final report (Abnormal)?? 11/12/2023 14:30 Urine Culture Specimen Source URINE ()?? 11/12/2023 14:30 Urine Culture Isolate 1 Klebsiella pneumoniae (Abnormal)?? 11/12/2023 14:30 Urine Cult Antimicrobial Susceptibility Comment ()?? 11/12/2023 14:30 ?? BLOOD BANK Blood Type A Positive ()?? 11/12/2023 13:28 Antibody Screen Negative ()?? 11/12/2023 13:28 ?? BLOOD COUNT & DIFF WBC 2.1 k/mm3 (Low)?? 11/15/2023 07:07 RBC 3.06 m/mm3 (Low)?? 11/15/2023 07:07 Hgb 8.1 Gm/dL (Low)?? 11/15/2023 07:07 Hct 25.2 % (Low)?? 11/15/2023 07:07 MCV 82.4 femtoliters ()?? 11/15/2023 07:07 MCH 26.5 pg (Low)?? 11/15/2023 07:07 MCHC 32.1 g/dL (Low)?? 11/15/2023 07:07 Platelet Count 119 k/mm3 (Low)?? 11/15/2023 07:07 RDW-SD 41.6 femtoliters ()?? 11/15/2023 07:07 MPV 10.0 femtoliters ()?? 11/15/2023 07:07 Nucleated RBC (Automated) 0.0 #/100 WBC'S ()?? 11/15/2023 07:07 Abs. NRBC 0.0 k/mm3 ()?? 11/15/2023 07:07 Abs. Neut 1.1 k/mm3 (Low)?? 11/15/2023 07:07 Abs. Lymph 0.6 k/mm3 (Low)?? 11/15/2023 07:07 Abs. Green 0.3 k/mm3 (Low)?? 11/15/2023 07:07 Abs. Eo 0.1 k/mm3 ()?? 11/15/2023 07:07 Abs. Baso 0.0 k/mm3 ()?? 11/15/2023 07:07 Neut % 53.3 % ()?? 11/15/2023 07:07 Lymph % 27.4 % ()?? 11/15/2023 07:07 Green % 16.0 % (High)?? 11/15/2023 07:07 Eos % 2.8 % ()?? 11/15/2023 07:07 Baso % 0.0 % ()?? 11/15/2023 07:07 Imm Gran 0.5 % ()?? 11/15/2023 07:07 Abs. Imm Gran 0.0 k/mm3 ()?? 11/15/2023 07:07 ?? CHEM GENERAL Sodium 136 mmol/L ()?? 11/15/2023 07:07 Potassium 4.0 mmol/L ()?? 11/15/2023 07:07 Chloride 100 mmol/L ()?? 11/15/2023 07:07 Bicarbonate Level 25 mmol/L ()?? 11/15/2023 07:07 Anion Gap 11 ()?? 11/15/2023 07:07 Glucose Level 170 mg/dL (High)?? 11/13/2023 06:58 Glucose, POC 269 mg/dL (High)?? 11/15/2023 11:23 BUN 16 mg/dL ()?? 11/13/2023 06:58 Creatinine-Blood 0.70 mg/dL ()?? 11/15/2023 07:07 Estimated GFR Creatinine 90 ML/MIN/1.73 M2 ()?? 11/15/2023 07:07 Calcium 9.2 mg/dL ()?? 11/13/2023 06:58 Magnesium 1.5 mg/dL (Low)?? 11/15/2023 07:07 Protein, Total 7.2 Gm/dL ()?? 11/13/2023 06:58 Albumin 3.2 Gm/dL (Low)?? 11/13/2023 06:58 AG Ratio 0.8 ()?? 11/13/2023 06:58 Alkaline Phosphatase 102 units/L ()?? 11/13/2023 06:58 AST (SGOT) 21 units/L ()?? 11/15/2023 07:07 ALT (SGPT) 13 units/L ()?? 11/15/2023 07:07 Bilirubin, Total 0.3 mg/dL ()?? 11/13/2023 06:58 Lactate 0.9 mmol/L ()?? 11/12/2023 23:33 ?? COAG INR 1.0 ()?? 11/13/2023 07:55 Protime (PT) 11.1 seconds ()?? 11/13/2023 07:55 ?? HEME OTHER Hold Blue Top SPECIMEN DISCARDED AFTER 4 HOURS. ()?? 11/12/2023 13:30 ? MISC. CHEMISTRY Hold Green Top SPECIMEN DISCARDED AFTER 1 WEEK ()?? 11/12/2023 13:30 Hold Gel Top SPECIMEN DISCARDED AFTER 1 WEEK ()?? 11/12/2023 23:33 Hold Fam Top SPECIMEN DISCARDED AFTER 1 WEEK ()?? 11/12/2023 13:30 ? UA/URINALYSIS Appear/Color, Urine LIGHT YELLOW ()?? 11/12/2023 14:30 Specific Deale, Urine 1.008 ()?? 11/12/2023 14:30 pH, Urine 6.0 ()?? 11/12/2023 14:30 Albumin, Urine NEGATIVE ()?? 11/12/2023 14:30 Glucose, Urine 4+ (Abnormal)?? 11/12/2023 14:30 Ketones, Urine NEGATIVE ()?? 11/12/2023 14:30 Bilirubin, Urine NEGATIVE ()?? 11/12/2023 14:30 Hemoglobin, Urine NEGATIVE ()?? 11/12/2023 14:30 Nitrite, Urine NEGATIVE ()?? 11/12/2023 14:30 Leukocyte, Urine 1+ (Abnormal)?? 11/12/2023 14:30 Urobilinogen NORMAL mg/dL ()?? 11/12/2023 14:30 WBC's, Urine 10 /HPF (High)?? 11/12/2023 14:30 RBC's, Urine <1 /HPF ()?? 11/12/2023 14:30 Bacteria SLIGHT HPF (Abnormal)?? 11/12/2023 14:30 Hold Urine Culture Testing available 48 hours from time of collection. ()?? 11/12/2023 14:30 ? URINE OTHER Est Creatinine Clearance 47.50 mL/min ()?? 11/15/2023 07:49 ? VIROLOGY COVID-19 PCR Specimen Source NASAL ()?? 11/13/2023 00:35 COVID-19 PCR Result NEGATIVE ()?? 11/13/2023 00:35 ? Procedure ?GG EGD ? Image ?CT Abd/Pelvis W/ IV Contrast Only??11/12/2023 14:23 by Kim Tran ?IMPRESSION: Subtle stranding adjacent to left hemicolon diverticula which may represent mild or early acute diverticulitis. Wall thickening of the proximal duodenum, which may reflect duodenitis. Mild splenomegaly. Small bladder calculus. ?12 Lead ECG??11/12/2023 13:23 by Williams Christie MD ? [id number] ?? Ventricular Rate: 87 BPM Atrial Rate: 87 BPM P-R Interval: 134 ms QRS Duration: 80 ms Q-T Interval:354 ms QTC Calculation(Bazett): 425 ms P Wingate: 34 degrees R Wingate: -19 degrees T Wingate: 17 degrees Normal sinus rhythm Moderate voltage criteria for LVH, may be normal variant ( R in aVL , Kofi product ) Nonspecific T wave abnormality Abnormal ECG When compared with ECG of 18-JUL-2023 09:17, Nonspecific T wave abnormality now evident in Anterior leads Confirmed by Williams Christie ([id number]) on 11/12/2023 2:14:03 PM [place]: Williams Christie ?? Consult ?Gastroenterology Consult Note??11/13/2023 18:57 by Howard Hendrix MD ? Microbiology ?Urine Culture Results Final report??11/15/2023 11:09 by Contributor[employer]system , [employer] ?Urine Culture Specimen Source URINE ? 35??minutes spent on discharge * Kath Washington RN: PERFORM, SIGN, VERIFY Event Display: Case Management Discharge Plan Authored Date: [id number] Patient: DELANEY ARIAS Age: 73 years Sex: Female : 1950 Associated Diagnoses: None Author: Kath Washington RN Discharge Plan Case Management Discharge Plan : Case Management Discharge Plan Data 11/15/2023 11:59 EDT Discharge Level of Care at Discharge Homehealth/VNA Discharge VNA/Hospice/Home Care [facility] [phone] Discharge Transportation Arranged Name of Agency #1 [facility] Agency External Grinder #1 Intake Service Categories #1 Physical Therapy, Senior Living Service Comments #1 You are being set up with [facility] for home prison and physical therapy. If you do not hear from then 24 hours after discharge, please call them. 11/13/2023 10:43 EDT Discharge Nursing Homes/Rehab Facilities [facility] * Gallagher RNDejon: PERFORM Event Display: Patient Education/Instruction Authored Date: [id number] Inpatient Adult Discharge Instructions. [address] [address] Name: DELANEY ARIAS : 1950?? Visit: 11/12/2023 16:17?? Current Date: 11/15/2023 12:50 ?? Account: [id number]?? Inpatient Adult Discharge Instructions We would like [...] and their families. Surveys are administered by [employer] ?? If further treatment with your primary care physician or another doctor is recommended, it is important for you to keep the appointment. Call your primary care physician or return to the Emergency Department immediately if your condition worsens, fails to improve, or new symptoms develop. If you need to find a doctor, you can call [facility] for a referral at [phone] or toll free at [phone] ([phone]) or log in to [email or web address].. ?? [facility], in keeping with [facility] guidance, no longer requires face masks [...] a health care micheal of your choosing. [employer] is a website that allows you to securely view your medical information including your hospital discharge summary, office visit summaries, medications and follow-up visits. You can also request appointments, renew medications, and request access to your medical information using a health care micheal of your choosing, or just ask a question. You can enroll at [email or web address] or register during your next office visit. You have been discharged from [facility], Patient Care Unit: W3??. If you have any questions regarding these instructions, including results of studies pending, afteryou leave, please call us and we will be happy to assist you 05/11. [facility] Your Care Team Attending Physician Harmony Hernandez MD?? Consulting Providers Harmony Hernandez MD?? Discharging Providers Harmony Hernandez MD Reason for Your Visit Pt coming from home. Pt noticed blood in stool while using bathroom?? Your Diagnosis Diverticulitis Hematochezia Anemia RICHARDS (nonalcoholic steatohepatitis) Insulin dependent type 2 diabetes mellitus Seizure disorder Benign essential hypertension Diastolic heart failure Major depression Hypothyroidism History of breast cancer Mild intermittent asthma Cystitis Gastritis Pancytopenia Tests Performed Below is a partial list of the tests performed during your hospitalization. You may have had other tests and procedures not included in this list. Please discuss all test results with your provider. ALT AST CBC CBC w/ Differential Comprehensive Metabolic Panel COVID-19 (2019 Novel Coronavirus) PCR Creatinine Electrolytes GLUCOSE POC HOLD BLUE TUBE HOLD GEL TUBE HOLD FAM TUBE HOLD GREEN TUBE Lactate Level Magnesium Level PROTIME PROFILE Type and Screen Urinalysis w/hold for Urine Culture Urine Culture Result Urine Culture, Routine CT Abd/Pelvis W/ IV Contrast Only ALT?? AST?? Add On Lab Order?? C. difficile Rapid Toxin Assay?? CBC?? CBC w/ Differential?? COVID-19 (2019 Novel Coronavirus) PCR?? CT Abd/Pelvis W/ IV Contrast Only?? Comprehensive Metabolic Panel?? Creatinine?? Electrolytes?? GI Profile, Stool, PCR?? Glucose POC?? Hold Blue Top Tube (HOLD BLUE TUBE)?? Hold Gel Top Tube (HOLD GEL TUBE)?? Hold Fam Top Tube (HOLD FAM TUBE)?? Hold Green Top Tube (HOLD GREEN TUBE)?? Hold Lavender Tube (BB)?? INR (PROTIME PROFILE)?? Lactic Acid Level (Lactate Level)?? Magnesium Level?? Pathology Tissue Request ()?? Type and Screen?? Urinalysis w/hold for Urine Culture?? Urine Culture (Urine Culture, Routine)?? Urine Culture Result?? Primary Care Provider Kim Gates MD? Advance Directive Health Care Proxy on File Yes - Health Care Proxy Patient has a Designated Caregiver: Yes Discharge Vitals Temperature: 97.7 DegF Height: 150 cm Pulse Rate: 61 bpm Weight: 55.6 kg Respiratory Rate: 18 br/min Body Mass Index: 24.71 kg/m2 Systolic Blood Pressure:??160 mm Hg??High Body surface area: 1.52 Diastolic Blood Pressure: 72 mm Hg ?? Oxygen Saturation: 98 % ?? Studies Pending All studies ordered during this hospital stay have been completed unless listed below. Please discuss all pending results with your provider listed above in these instructions. ?? Add On Lab Order?? C. difficile Rapid Toxin Assay?? GI Profile, Stool, PCR?? Hold Lavender Tube (BB)?? Pathology Tissue Request ()?? What to do next Instructions From Your Doctor ?? Orders? 11/15/23 12:36:00 EDT?? Prescriptions??, ??11/15/23 12:36:00 EDT?? You Need to Schedule the Following Appointments Follow Up with??Kim Gates MD Where: [address] [place] [address]- Discharge Medications GABRIELLADELANEY :1950 Visit Date:11/12/2023 Medications: Please continue your medications until treatment is completed or stopped by your provider. Medications not listed below should be discontinued. Discuss any questions related to medications with your provider. What How Much When Instructions Next Dose New Cefdinir (cefdinir 300 mg oral capsule) 1 capsule Oral Every 12 hours Duration: 4 Days Pickup at [facility] 3pm New Magnesium Oxide (magnesium oxide 400 mg oral capsule) 1 capsule Oral Twice a day Duration: 30 Days Pickup at [facility] today New Metronidazole (metroNIDAZOLE 500 mg oral tablet) 1 tab(s) Oral 3 times a day Duration: 4 Days Pickup at [facility] 5pm New Pantoprazole (Protonix 40 mg oral delayed release tablet) 1 tab(s) Oral Daily Pickup at [facility] tomorrow morning Unchanged Acetaminophen (acetaminophen 325 mg oral tablet) 650 Milligram Oral Every 6 hours as needed for Pain , Mild / Headache ?? Unchanged Albuterol (albuterol CFC free 90 mcg/ inh inhalation aerosol) 2 puff(s) Inhalation Every 4 hours as needed for Wheezing/Shortness of Breath Unchanged Amlodipine (amLODIPine 5 mg oral tablet) 5 Milligram Oral Daily hold if systolic blood pressure is below 120 mmHg ?? tomorrow morning Unchanged Anastrozole (anastrozole 1 mg oral tablet) 1 Milligram Oral Daily in the morning tomorrow morning Unchanged Aspirin (aspirin 81 mg oral tablet, chewable) 81 Milligram Oral Daily tomorrow morning Unchanged Cetirizine (cetirizine 5 mg oral tablet) 5 Milligram Oral Daily at Bedtime tonight Unchanged Divalproex Sodium (divalproex sodium 500 mg oral enteric coated tablet) 500 Milligram Oral Daily at Bedtime tonight Unchanged Ferrous Sulfate (ferrous sulfate 325 mg oral enteric coated tablet) 325 Milligram Oral Daily tomorrow morning Unchanged Fluoxetine (FLUoxetine 20 mg oral capsule) 40 Milligram Oral Daily tomorrow morning Unchanged Furosemide (Lasix 20 mg oral tablet) 20 Milligram Oral Daily tomorrow morning Unchanged Glucose (Glucose Gel) 15 gram Oral Every 20 minutes as needed for Blood Glucose 50 to 70 and patient ALERT ?? Unchanged Insulin Glargine (Lantus Inj) 6 unit(s) Subcutaneous Injection Daily at Bedtime tonight Unchanged Insulin Lispro (insulin lispro 100 units/ mL [...] 400 << Sliding Scale Comments >> ?? with meals Unchanged levETIRAcetam (Keppra 500 mg oral tablet) 500 Milligram Oral Twice a day tonight Unchanged Levothyroxine (levothyroxine 0.1 mg oral tablet) 100 Microgram Oral Daily in the morning Take on empty stomach and 1 hour before other pills or breakfast with plenty of water. ?? tomorrow morning Unchanged Losartan (losartan 100 mg oral tablet) 1 tab(s) Oral Daily hold if systolic blood pressure is below 120 mmHg ?? tomorrow morning Unchanged Mirtazapine (mirtazapine 30 mg oral tablet, disintegrating) 1 tab(s) Oral Daily at Bedtime tomorrow morning Unchanged Multivitamin With Minerals (multivitamin with minerals Multiple Vitamins with Minerals oral tablet) 1 tab(s) Oral Daily tomorrow morning Unchanged Risperidone (risperiDONE 1 mg oral tablet) 2 Milligram Oral Twice a day resume Unchanged Simvastatin (simvastatin 20 mg oral tablet) 20 Milligram Oral Daily at Bedtime tonight Unchanged Thiamine (thiamine 100 mg oral tablet) 100 Milligram Oral Daily tomorrow Unchanged Trazodone (traZODone 50 mg oral tablet) 50 Milligram Oral Daily at Bedtime as needed for Insomnia bedtime Unchanged Vancomycin (vancomycin 125 mg oral capsule) See instructions 125 mg By Mouth Every 6 hours for 3 days then 125 mg bid for 1 week, then 125 mg every other day for 4 weeks. ?? resume Pharmacy Information [facility]: [address] [place] [address] [phone] Prescription Given During Visit Cefdinir (cefdinir 300 mg oral capsule) - 1 capsule = 300 mg, By Mouth, Every 12 hours, # 8 capsule, 0 Refills, [facility], [address] [place], [place] [id number] [phone]?? Magnesium Oxide (magnesium oxide 400 mg oral capsule) - 1 capsule = 400 mg, By Mouth, 2 times a day, # 60 capsule, 0 Refills, [facility], [address] [place], [place] [id number] [phone]?? Metronidazole (metroNIDAZOLE 500 mg oral tablet) - 1 tablet = 500 mg, By Mouth, 3 times a day, # 12tablet, 0 Refills, [facility], [address] [place] [address] [phone]?? Pantoprazole (Protonix 40 mg oral delayed release tablet) - 1 tablet = 40 mg, By Mouth, Daily, # 30tablet, 0 Refills, [facility], [address] [place] [address] [phone]?? Laboratory Results Below is a partial list of the most recent Laboratory test results done prior to this discharge. You may have had other tests and procedures not included in this list. Please discuss all test resultswith your provider. Est Creatinine Clearance - 47.50 mL/min (11/15/2023) ALT (11/15/2023) ???ALT (SGPT) - 13 units/L AST (11/15/2023) ???AST (SGOT) - 21 units/L CBC (11/13/2023) ???WBC - 2.4 k/mm3???RBC - 2.74 m/mm3???Hgb - 7.2 Gm/dL???Hct - 22.1 %???MCV - 80.7 femtoliters???MCH - 26.3 pg???MCHC - 32.6 g/dL???Platelet Count - 100 k/mm3???RDW-SD - 41.4 femtoliters???MPV - 10.0 femtoliters???Nucleated RBC (Automated) - 0.0 #/100 WBC'S???Abs. NRBC - 0.0 k/mm3 CBC w/ Differential (11/15/2023) ???WBC - 2.1 k/mm3???RBC - 3.06 m/mm3???Hgb - 8.1 Gm/dL???Hct - 25.2 %???MCV - 82.4 femtoliters???MCH - 26.5 pg???MCHC - 32.1 g/dL???Platelet Count - 119 k/mm3???RDW-SD - 41.6 femtoliters???MPV - 10.0 femtoliters???Nucleated RBC (Automated) - 0.0 #/100 WBC'S???Abs. NRBC - 0.0 k/mm3???Abs. Neut - 1.1 k/mm3???Abs. Lymph - 0.6 k/mm3???Abs. Green - 0.3 k/mm3???Abs. Eo - 0.1 k/mm3???Abs. Baso - 0.0 k/mm3???Neut % - 53.3 %???Lymph % - 27.4 %???Green % - 16.0 %???Eos % - 2.8 %???Baso % - 0.0 %???Imm Gran - 0.5 %???Abs. Imm Gran - 0.0 k/mm3 Comprehensive Metabolic Panel (11/13/2023) ???Sodium - 136 mmol/L???Potassium - 4.3 mmol/L???Chloride - 99 mmol/L???Bicarbonate Level - 26 mmol/L???Anion Gap - 11???Glucose Level - 170 mg/dL???BUN - 16 mg/dL???Creatinine-Blood - 0.79 mg/dL???Estimated GFR Creatinine - 78 ML/MIN/1.73 M2???Calcium - 9.2 mg/dL???Protein, Total - 7.2 Gm/dL???Albumin - 3.2 Gm/dL???AG Ratio - 0.8???Alkaline Phosphatase - 102 units/L???AST (SGOT) - 22 units/L???ALT (SGPT) - 18 units/L???Bilirubin, Total - 0.3 mg/dL COVID-19 (2019 Novel Coronavirus) PCR (11/13/2023) ???COVID-19 PCR Specimen Source - NASAL???COVID-19 PCR Result - NEGATIVE Creatinine (11/15/2023) ???Creatinine-Blood - 0.70 mg/dL???Estimated GFR Creatinine - 90 ML/MIN/1.73 M2 Electrolytes (11/15/2023) ???Sodium - 136 mmol/L???Potassium - 4.0 mmol/L???Chloride - 100 mmol/L???Bicarbonate Level - 25 mmol/L???Anion Gap - 11 GLUCOSE POC (11/15/2023) ???Glucose, POC - 269 mg/dL HOLD BLUE TUBE (11/12/2023) ???Hold Blue Top - SPECIMEN DISCARDED AFTER 4 HOURS. HOLD GEL TUBE (11/12/2023) ???Hold Gel Top - SPECIMEN DISCARDED AFTER 1 WEEK HOLD FAM TUBE (11/12/2023) ???Hold Fam Top - SPECIMEN DISCARDED AFTER 1 WEEK HOLD GREEN TUBE (11/12/2023) ???Hold Green Top - SPECIMEN DISCARDED AFTER 1 WEEK Lactate Level (11/12/2023) ???Lactate - 0.9 mmol/L Magnesium Level (11/15/2023) ???Magnesium - 1.5 mg/dL PROTIME PROFILE (11/13/2023) ???INR - 1.0???Protime (PT) - 11.1 seconds Type and Screen (11/12/2023) ???Blood Type - A Positive???Antibody Screen - Negative Urinalysis w/hold for Urine Culture (11/12/2023) ???Appear/Color, Urine - LIGHT YELLOW???Specific Deale, Urine - 1.008???pH, Urine - 6.0???Albumin, Urine - NEGATIVE???Glucose, Urine - 4+???Ketones, Urine - NEGATIVE???Bilirubin, Urine - NEGATIVE???Hemoglobin, Urine - NEGATIVE???Nitrite, Urine - NEGATIVE???Leukocyte, Urine - 1+???Urobilinogen - NO RMAL? ?WBC's, Urine - 10 /HPF? ?RBC's, Urine - <1 /HPF? ?Bacteria - SLIGHT? ?Hold Urine Culture - Testing available 48 hours from time of collection. Urine Culture Result (11/12/2023) ???Urine Culture Isolate 1 - Klebsiella pneumoniae???Urine Cult Antimicrobial Susceptibility - Comment Urine Culture, Routine (11/12/2023) ???Urine Culture Results - Final report???Urine Culture Specimen Source - URINE You will be contacted within 72 hours with your results. 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 Mastodynia, left chest wall from scarring?? Mild intermittent asthma?? Mixed hyperlipidemia?? RICHARDS (nonalcoholic steatohepatitis)?? Post-surgical hypothyroidism?? Postmastectomy Lymphedema Syndrome, left arm?? Recurrent falls?? Recurrent major depressive episodes, moderate?? Seizure disorder?? Transaminitis?? Type 2 diabetes mellitus with diabetic neuropathy?? Vitamin D deficiency?? Education Materials Below is the list of Educational Leaflet Providered with your Discharge Instructions. WebMD Ignite Patient Education - Magnesium Oxide?? WebMD Ignite Patient Education - Cefdinir?? WebMD Ignite Patient Education - Metronidazole?? WebMD Ignite Patient Education - Lower GI Bleeding (Stable)?? WebMD Ignite Patient Education - Diverticulitis?? WebMD Ignite Patient Education - Diverticulitis?? WebMD Ignite Patient Education - Treating Gastritis?? Valuables and Belongings I fully understand and agree that [facility] accepts no responsibility for all my [...] Review of Valuable and Belonging List: With patient Date for Pt to Sign Valuables/Belongings: 11/12/23 14:30:00 ?? Other Discharge Information ? Case Management Discharge Plan?? Discharge Plan?? Discharge Agency Information?? Discharge Level of Care at Discharge: Homehealth/VNA Name of Agency #1: [facility] Dis[facility] Transportation Arranged: Agency External Grinder #1: Intake Discharge Nursing Homes/Rehab Facilities: [facility] Categories #1: Physical Therapy, Senior Living Discharge VNA/Hospice/Home Care: [facility] [phone] Service Comments #1: You are being set up with [facility] for home prison and physical therapy. If you do not hear from then 24 hours after discharge, please call them. ?? Pulmonary Rehab Status?? Pulmonary Rehab Discharge Status?? Respiratory Rate: 18 br/min ? Common Emergency Awareness Tips IS [...] are strongly encouraged to quit. Please call [employer] at [phone] or [phone] ([phone]) or log in to [email or web address] for referrals to smoking cessation programs. ?? 593 Suicide & Crisis Lifeline is available 05/11 if you or someone you know needs to find a reason to keep living. By calling 865 you'll be connected to a skilled, trained counselor at a crisis center in your area. INPATIENT DISCHARGE INSTRUCTIONS SIGNATURE PAGE DELANEY ARIAS Location:[facility] Registration Date and Time:11/12/2023 16:17 EDT Primary Care Physician: Kim Gates MD, Attending Physician: Mary ESPINOZA, Harmony, I GABRIELLADELANEY, have received the above patient education materials/instructions and have verbalized understanding. If ambulance or transport services are being used I further acknowledge being given a choice of service. ?? If you need to contact me, please call me at this number: . Patient/Carpet Loom Fixer Name: Patient/Carpet Loom Fixer Signature: Relationship to Patient: Witness Name/Signature: Date: * Gallagher Dejon GONZALEZ: PERFORM Event Display: Patient Education Leaflets Authored Date: [id number] Magnesium Oxide ?? [id number] ?xido de magnesio Nombres comercial(es): Mag-Ox??, Maox??, Uro-Mag??; tambi??n disponibles gen??ricamente ??PARA CU? LES condiciones o enfermedades se prescribe mckenzie medicamento? El magnesio es un elemento que el organismo necesita para cumplir con shubham funciones normales. El ??xido de magnesio puede usarse por diferentes razones. Algunas personas lo usan emily anti??cido para aliviar los malestares estomacales causados por el calor o la acidez estomacal (pirosis). Tambi??n se puede usar emily laxante por breves per??odos para lograr un vaciado r??pido de los intestinos, porejemplo antes de jennifer intervenci??n quir??rgica. Mckenzie medicamento no debe usarse en forma reiterada.El ??xido de magnesio tambi??n se usa emily suplemento alimenticio cuando la cantidad de magnesio presente en el r??gimen alimenticio no es suficiente. El ??xido de magnesio est?? disponible sin prescr ipci??n. ??C??MO se debe usar mckenzie medicamento? El ??xido de magnesio viene envasado en forma de tabletas o c??psulas para maría por v??a oral. Porlo general, se mely cuatro veces al d??a, dependiendo de la cookie y la condici??n del paciente. Siga cuidadosamente las instrucciones en la etiqueta del medicamento y preg??ntele a baker doctor o farmac??utico cualquier cosa que no entienda. Use el medicamento exactamente emily se indica. No use m??s ni menos que la dosis indicada ni tampoco m??s seguido que lo prescrito por baker doctor. [place] cualquier otro medicamento al menos con 2 horas de diferencia Si va a usar ??xido de magnesio emily laxante, t??palacios con un vaso de agua fr??a (8 onzas), o jugo de frutas, y no lo tome al final del d??a ni con el est??sierra vac??o. Si lo va a usar emily laxante nolo tome por m??s de jennifer semana a menos que baker doctor lo indique. Si usted va a usar ??xido de magnesio emily anti??cido, no lo tome por m??s de dos semanas, a menos que baker doctor lo indique. ??Qu?? OTRO USO se le da a mckenzie medicamento? Mckenzie medicamento tambi??n puede ser prescrito para otros usos; p??medina m??s informaci??n a baker doctor o farmac??utico. ??Cu??les son las PRECAUCIONES ESPECIALES que zeinab seguir? Antes de comenzar a maría ??xido de magnesio: ??? d??gale a baker doctor y a baker farmac??utico si usted es al??rgico al ??xido de magnesio, o a otrosanti??cidos o laxantes, o a otros medicamentos. ??? d??gale a baker doctor y a baker farmac??utico qu?? medicamentos con o sin prescripci??n est?? tomando, especialmente otros anti??cidos o laxantes, anticoagulantes emily warfarina (Cumadina), aspirinas, diur??ticos, medicamentos para las ??lceras [cimetidina (Tagamet), ranitidina (Zantac)] y vitaminas. ??? d??gale a baker doctor si tiene o alguna vez cid tenido enfermedades al coraz??n, h??gado, ri?n o intestinos, o hipertensi??n. ??? d??gale a baker doctor si est?? embarazada, tiene planes de quedar embarazada o si est?? amamantando. Si queda embarazada mientras mely mckenzie medicamento, llame a baker doctor de inmediato. ??? d??gale a baker doctor si usted est?? cumpliendo con alg??n r??gimen alimenticio especial o bajo en contenido de erik o az??car. ??Qu?? tengo que hacer SI ME OLVIDO de maría jennifer dosis? Si est?? tomando ??xido de magnesio en forma regular, tome la dosis que olvid?? suarez pronto emily lo recuerde, sin embargo, si es hora para la siguiente, s??ltese aquella que no sandra?? y siga con la dosificaci??n regular. No tome jennifer dosis doble para compensar la que olvid??. ??Cu??les son los EFECTOS SECUNDARIOS que podr??a provocar mckenzie medicamento? Mckenzie medicamento se puede maría con jugos o gaseosas c??tricas para evitar el sabor desagradable. Aunque los efectos secundarios de mckenzie medicamento no son comunes, podr??an llegar a presentarse. D??gale a baker doctor si cualquiera de estos s??ntomas se vuelve austin o si no desaparece: ??? retortijones ??? diarrea Si usted experimenta alguno de los siguientes s??ntomas, llame a baker doctor de inmediato: ??? sarpullido (erupciones en la piel) o urticarias ??? prurito (picaz??n) ??? mareos ??? cambios en el estado de ??macarena ??? cansancio inusual ??? debilidad ??? malestar estomacal ??? v??mitos ??C??mo zeinab ALMACENAR o DISPONER de mckenzie medicamento? Mantenga mckenzie medicamento en baker envase, dav cerrado y fuera del alcance de los ni??os. Almac??neloa temperatura ambiente y lejos del calor excesivo y la humedad (no en el ba??o). Es importante que mantenga todos los medicamentos fuera de la vista y el alcance de los ni??os, debido a que muchos envases (tales emily los pastilleros de uso semanal, y aquellos que contienen gotas oft??lmicas, cremas, parches e inhaladores) no son a prueba de ni??os cameron??os, quienes pueden abrirlos f??cilmente. Con el fin de protegerlos de jennifer intoxicaci??n, siempre use tapaderas de seguridade inmediatamente coloque los medicamentos en un lugar seguro, ashley que se encuentre arriba y lejos de baker vista y alcance. [email or web address]/ Los medicamentos que ya no son necesarios se deben desechar de jennifer manera apropiada para asegurarsede que las mascotas, los ni??os y otras personas no puedan consumirlos. Sin embargo, no debe desechar estos medicamentos por el inodoro. En baker lugar, la mejor manera de deshacerse de shubham medicamentoses a shruthi??s de un programa de devoluci??n de medicamentos. Hable con baker farmac??utico o p??ngase en contacto con baker departamento de basura/reciclaje local para conocer acerca de los programas de devoluci??n de medicamentos de baker comunidad. Consulte el sitio web de la Administraci??n de Medicamentos y Alimentos (FDA), (https://goo.gl/xRXbPn) para obtener m??s informaci??n de c??mo desechar de forma madsen los medicamentos, si no tiene acceso al programa de devoluci??n de medicamentos. ??Qu?? zeinab hacer en sofya de jennifer SOBREDOSIS? En sofya de sobredosis, llame a la l??hortencia de ayuda de control de envenenamiento al . La informaci??n tambi??n est?? disponible en l??hortencia en https://www.poisonhelp.org/help. Si la v??ctima se cid derrumbado, cid tenido jennifer convulsi??n, tiene dificultad para respirar, o no puede despertarse, llame inmediamente a los servicios de emergencia al 911. ??Qu?? OTRA INFORMACI??N de importancia deber??a saber? Si mckenzie medicamento cid sido prescrito para usted, cumpla con todas las citas con baker doctor para quepueda controlar la respuesta de baker cuerpo al magnesio. No deje que otras personas tomen baker medicamento. Es importante que Ud. mantenga jennifer lista escrita de todas las medicinas que Ud. est?? tomando, incluyendo las que recibi?? con receta m??dica y las que Ud. compr?? sin receta, incluyendo vitaminas y suplementos de dieta. Ud. debe tener la lista cada vez que visita baker m??dico o cuando es admitido a un hospital. Tambi??n es jennifer informaci??n importante en casos de emergencia. Mckenzie informe sobre medicamentos es solo para baker informaci??n, y no se considera emily un consejo para el paciente. Debido a la naturaleza de informaci??n sobre drogas, por favor consulte baker medico o farmac??utico sobre el uso cl??paola espec??fico. La Sociedad Americana de Farmac??uticos Instit[employer]ionales SA., afirma que la informaci??n proporcionada a continuaci??n fue formulada con razonable est??ndar de asistencia, y en conformidad con el confederated salish profesional. La Sociedad Americana de Farmac??uticos [employer]ucionales, SA. no provee representaciones o garant??as, expresas o implicadas, incluyendo, laurie no limitado a, cualquiera garant??a de comercializaci??n y/o apropiado para jennifer funci??n particular, con respecto a kiley informaci??n y niega espec??ficamente tales garant??as. Se avisa a los usuarios que las decisiones con respecto a terapia de drogas son decisiones m??dicas complejas requiriendo decisiones independientes e informadas de un profesional de negrita y que la informaci??n se da para prop??sitos de informaci??n solamente. La entera monograf??a de jennifer droga debe ser revisada considerando un comprensivo entendimiento de las acciones, usos, y efectos secundarios de la droga. La [employer]iedad [employer]a de Farmac[employer]uticos [employer]ionales, [employer]. no endosa o recomienda el uso de ninguna medicina. La informaci??n no es un sustituto de asistencia m??dica. AHFS?? Patient Medication Information???. ?? Derechos reservados, 2023. Documento actualizado 15 Dicie2022, [place] Society of [employer]-System Pharmacists?? [address], [address], [place], [place] [address] [facility]. Todos los derechos reservados. La duplicaci??n de mckenzie documento para baker uso comercial, deber?? ser autorizada por ASHP. AHFS?? Patient Medication Information???. ?? Copyright, 2023 ?? * Dejon Gallagher RN: PERFORM Event Display: Patient Education Leaflets Authored Date: [id number] Cefdinir ?? [id number] Cefdinir Nombres comercial(es): Omnicef??; tambi??n disponibles gen??ricamente ??PARA CU? LES condiciones o enfermedades se prescribe mckenzie medicamento? El cefdinir se usa para tratar algunas infecciones provocadas por bacterias, tales emily la bronquitis (infecci??n de las v??as respiratorias que van a los pulmones); neumon??a; e infecciones de la piel, o??dos, senos nasales, garganta, y am??gdalas.. El cefdinir pertenece a jennifer clase de medicamentos llamados antibi??ticos de cefalosporina. Funciona matando las bacterias. Los antibi??ticos emily el cefdinir no funcionan para combatir resfriados, influenza u otras infecciones virales. Usar antibi??ticos cuando no son necesarios aumenta baker riesgo de contraer jennifer infecci??n m??s adelante, que se resista al tratamiento con antibi??flaca. ??C??MO se debe usar mckenzie medicamento? La presentaci??n del cefdinir es en c??psulas y en suspensi??n (l??quido) para administraci??n oral. Generalmente se mely con o sin alimentos cada 12 o 24 horas angie 5 a 10 d??as, dependiendo de la condici??n que se est?? tratando. [place] el cefdinir aproximadamente a la misma hora todos los d??as. Siga atentamente las instrucciones que se encuentran en la etiqueta de baker receta m??dica y pida a baker m??dico o farmac??utico que le explique cualquier parte que no comprenda. [place] el cefdinir exactamente emily se le indique. No tome jennifer cantidad mayor o malcom del medicamento, ni lo tome con m??s frecuencia de lo que indique la receta de baker m??dico. Agite dav la suspensi??n antes de cada uso para mezclar el medicamento de forma uniforme. Deber?? empezar a sentirse mejor angie los primeros d??as de tratamiento con cefdinir. Si shubham s??ntomas no mejoran o empeoran, llame a baker m??dico. Contin??e tomando cefdinir incluso si se siente mejor. Si sharifa de maría cefdinir demasiado pronto uomite algunas dosis, es posible que la infecci??n no se trate por completo y que las bacterias se vuelvan resistentes a los antibi??ticos. ??Qu?? OTRO USO se le da a mckenzie medicamento? Mckenzie medicamento se puede recetar para otros usos; pida m??s informaci??n a baker m??dico o farmac??utico. ??Cu??les son las PRECAUCIONES ESPECIALES que zeinab seguir? Antes de maría cefdinir, ??? informe a baker m??dico y farmac??utico si es al??rgico al cefdinir o a cualquier otro antibi??flaca de cefalosporina emily cefaclor, cefadroxilo, cefazolina (Ancef, Kefzol), cefditoren (Spectracef), cefepima (Maxipime), cefixima (Suprax), cefotaxima (Claforan), cefotetan, cefoxitina (Mefoxin), cefpo doxima, cefprozil, ceftarolina (Teflaro), ceftazidima (Fortaz, Tazicef, en Avycaz), ceftibuteno (Cedax), ceftriaxona (Rocephin), cefuroxima (Zinacef) o cefalexina (Keflex); antibi??ticos de penicilina; o cualquier otro medicamento. Adem??s, indique a baker m??dico si es al??rgico a cualquiera de los ingredientes en las c??psulas o la suspensi??n de cefdinir. Pida a baker farmac??utico jennifer lista de los ingredientes. ??? Informe a baker m??dico y farmac??utico qu?? medicamentos con y sin receta m??dica, vitaminas, suplementos nutricionales y productos a base de hierbas est?? tomando o tiene planificado maría. Aseg??rese de mencionar el probenecid (Probalan). Es posible que baker m??dico deba cambiar las dosis de shubham medicamentos o supervisarle atentamente para saber si tiene efectos secundarios. ??? Siest?? tomando anti??cidos que contengan magnesio o aluminio, suplementos de homer o multivitaminasque contengan homer, t??melos 2 horas antes o 2 horas despu??s del cefdinir. ??? Informe a baker m??dico si tiene o alguna vez cid tenido alguna enfermedad gastrointestinal (GI; que afecta el est??sierra o los intestinos), especialmente colitis (condici??n que causa inflamaci??n en el revestimiento del colon [intestino grueso]), o enfermedad renal. ??? Informe a baker m??dico si est?? embarazada, tiene planificado embarazarse o est?? amamantando. Si queda embarazada mientras mely cefdinir, llame a baker m??dico. ??? Si tiene diabetes, debe saber que la soluci??n de la suspensi??n de cefdinir contiene sacarosa (az??car). ??Qu?? DIETA ESPECIAL zeinab seguir mientras marybeth mckenzie medicamento? Mientras mely mckenzie medicamento, hable con baker m??dico acerca de comer alimentos a los que se les haya agregado homer, tales emily cereal de desayuno fortificado con homer. Sin embargo, a los beb??s se les puede alimentar con f??rmula para beb??s fortificada con homer mientras martita mckenzie medicamento. ??Qu?? tengo que hacer SI ME OLVIDO de maría jennifer dosis? [place] la dosis que omiti?? suarez pronto emily lo recuerde. Sin embargo, si ya catarino es hora de la pr??xima dosis, omita la dosis que le falt?? y contin??e con baker programa regular de dosificaci??n. No duplique la dosis para compensar la dosis omitida. ??Cu??les son los EFECTOS SECUNDARIOS que podr??a provocar mckenzie medicamento? El cefdinir puede ocasionar efectos secundarios. Informe a baker m??dico si cualquiera de estos s??ntomas es intenso o no desaparece: ??? v??mitos ??? n??usea ??? dolor de est??sierra ??? diarrea ??? dolor de nancy ??? picaz??n vaginal ??? heces de color rojizo ??? o sarpullido o urticaria o inflamaci??n del yeni, la garganta, la lengua, los labios o los ojos o dificultad para respirar o tragar o heces l??quidas o con linsey, c??licos estomacales o fiebre angie el tratamiento o hasta dos o m??s meses despu??s de suspender eltratamiento o retorno de la fiebre, dolor de garganta, escalofr??os u otros s??ntomas de infecci??n Si desarrolla un efecto secundario grave, usted o baker doctor puede enviar un informe al programa de divulgaci??n de efectos adversos 'MedWatch' de la Administraci??n de Alimentos y Medicamentos (FDA, por baker sigla en ingl??s) en la p??oleg de Internet (http://www.fda.gov/Safety/MedWatch) o por tel??fono al . ??C??mo zeinab ALMACENAR o DISPONER de mckenzie medicamento? Mantenga mckenzie medicamento en baker envase original, cerrado herm??ticamente y fuera del alcance de losni??os. [place] las c??psulas y la suspensi??n a temperatura ambiente y lejos del exceso de calor y humedad (no en el ba??o). [place] cualquier suspensi??n sin usar despu??s de 10 d??as. Es importante que mantenga todos los medicamentos fuera de la vista y el alcance de los ni??os, debido a que muchos envases (tales emily los pastilleros de uso semanal, y aquellos que contienen gotas oft??lmicas, cremas, parches e inhaladores) no son a prueba de ni??os cameron??os, quienes pueden abrirlos f??cilmente. Con el fin de protegerlos de jennifer intoxicaci??n, siempre use tapaderas de seguridade inmediatamente coloque los medicamentos en un lugar seguro, ashley que se encuentre arriba y lejos de baker vista y alcance. [email or web address]/es/ Los medicamentos que ya no son necesarios se deben desechar de jennifer manera apropiada para asegurarsede que las mascotas, los ni??os y otras personas no puedan consumirlos. Sin embargo, no debe desechar estos medicamentos por el inodoro. En baker lugar, la mejor manera de deshacerse de shubham medicamentoses a shruthi??s de un programa de devoluci??n de medicamentos. Hable con baker farmac??utico o p??ngase en contacto con baker departamento de basura/reciclaje local para conocer acerca de los programas de devoluci??n de medicamentos de baker comunidad. Consulte el sitio web de la Administraci??n de Medicamentos y Alimentos (FDA), (https://goo.gl/xRXbPn) para obtener m??s informaci??n de c??mo desechar de forma madsen los medicamentos, si no tiene acceso al programa de devoluci??n de medicamentos. ??Qu?? zeinab hacer en sofya de jennifer SOBREDOSIS? En sofya de sobredosis, llame a la l??hortencia de ayuda de control de envenenamiento al . La informaci??n tambi??n est?? disponible en l??hortencia en https://www.poisonhelp.org/help. Si la v??ctima se cid derrumbado, cid tenido jennifer convulsi??n, tiene dificultad para respirar, o no puede despertarse, llame inmediamente a los servicios de emergencia al 911. Los s??ntomas de sobredosis pueden incluir los siguientes: ??? n??usea ??? v??mitos ??? diarrea ??? dolor de est??sierra ??? convulsiones ??Qu?? OTRA INFORMACI??N de importancia deber??a saber? Asista a todas las citas con baker m??dico y del laboratorio. Baker m??dico podr??a ordenar algunas pruebas de laboratorio para comprobar baker respuesta al cefdinir. Antes de hacerse alguna prueba de laboratorio, informe al m??dico y al personal del laboratorio queest?? tomando cefdinir. Si es diab??flaca y se hace jennifer prueba de az??car en la orina, utilice Clinistix o TesTape (laurie no Clinitest) para examinar el nivel de az??car en la orina mientras utiliza mckenzie medicamento. Si se hace jennifer prueba de cetonas en la orina, debe saber que el cefdinir puede interferir con los resultadosde mckenzie tipo de prueba. Hable con baker m??dico sobre c??mo debe supervisar baker diabetes mientras mely cefdinir. No deje que nadie m??s tome baker medicamento. Es probable que no pueda volver a surtir baker receta m??dica. Es importante que Ud. mantenga jennifer lista escrita de todas las medicinas que Ud. est?? tomando, incluyendo las que recibi?? con receta m??dica y las que Ud. compr?? sin receta, incluyendo vitaminas y suplementos de dieta. Ud. debe tener la lista cada vez que visita baker m??dico o cuando es admitido a un hospital. Tambi??n es jennifer informaci??n importante en casos de emergencia. Mckenzie informe sobre medicamentos es solo para baker informaci??n, y no se considera emily un consejo para el paciente. Debido a la naturaleza de informaci??n sobre drogas, por favor consulte baker medico o farmac??utico sobre el uso cl??paola espec??fico. La Sociedad Americana de Farmac??uticos Instit[employer]ionales SA., afirma que la informaci??n proporcionada a continuaci??n fue formulada con razonable est??ndar de asistencia, y en conformidad con el confederated salish profesional. La Sociedad Americana de Farmac??uticos Institucionales, SA. no provee representaciones o garant??as, expresas o implicadas, incluyendo, laurie no limitado a, cualquiera garant??a de comercializaci??n y/o apropiado para jennifer funci??n particular, con respecto a kiley informaci??n y niega espec??ficamente tales garant??as. Se avisa a los usuarios que las decisiones con respecto a terapia de drogas son decisiones m??dicas complejas requiriendo decisiones independientes e informadas de un profesional de negrita y que la informaci??n se da para prop??sitos de informaci??n solamente. La entera monograf??a de jennifer droga debe ser revisada considerando un comprensivo entendimiento de las acciones, usos, y efectos secundarios de la droga. La Sociedad Americana de Farmac??uticos Institucionales, SA. no endosa o recomienda el uso de ninguna medicina. La informaci??n no es un sustituto de asistencia m??dica. AHFS?? Patient Medication Information???. ?? Derechos reservados, 2023. Documento actualizado 15 2022, [place] Society of [employer]-System Pharmacists?? [address] [facility], [address], [address] Todos los derechos reservados. La duplicaci??n de mckenzie documento para baker uso comercial, deber?? ser autorizada por ASHP. AHFS?? Patient Medication Information???. ?? Copyright, 2023 ?? * Dejon Gallagher RN: PERFORM Event Display: Patient Education Leaflets Authored Date: Metronidazole ?? [id number] Metronidazole Brand Name(s): Flagyl??, Flagyl?? 375, Likmez; also available generically IMPORTANT WARNING: Metronidazole can cause cancer in laboratory animals. Talk to your doctor about the risks and benefits of taking this medication. WHY is this medicine prescribed? Metronidazole is used to treat infections of the reproductive system, gastrointestinal (GI) tract, skin, heart, bone, joint, lung, blood, nervous system, and other areas of the body. It is also used to treat certain sexually transmitted diseases (STDs). Metronidazole is also used to treat bacterial vaginosis (an infection caused by too much of certain types of harmful bacteria in the vagina) in women. Metronidazole is in a class of medications called nitroimidazole antimicrobials. It works by stopping the growth of bacteria. Antibiotics will not work for colds, flu, or other viral infections. Using antibiotics when they are not needed increases your risk of getting an infection later that resists antibiotic treatment. HOW should this medicine be used? Metronidazole comes as a tablet, a capsule, and suspension (liquid) to take by mouth. Metronidazoletablets and suspension are usually taken as a one-time dose (or divided into two doses on 1 day) ortwo to four times daily for up to 10 days or longer. Metronidazole capsules are usually taken two to four times daily for up to 10 days or longer. Follow the directions on your prescription label care fully, and ask your doctor or pharmacist to explain any part you do not understand. Take metronidazole exactly as directed. Do not take more or less of it or take it more often than prescribed by your doctor. Shake the oral suspension well before each use to mix the medication evenly. Use a dosing spoon, oral syringe, or measuring cup to measure the correct amount of medication. You may not receive the correct amount of medication if you use a household spoon to measure your dose. Swallow the extended-release tablets whole; do not split, chew, or crush them. Continue to take this medication even if you feel well. Do not stop taking it without talking to your doctor. If you stop taking this medication too soon or skip doses, your infection may not be completely treated and the bacteria may become resistant to antibiotics. Ask your pharmacist or doctor for a copy of the high school home economics teacher's information for the patient. Are there OTHER USES for this medicine? This medication may be prescribed for other uses; ask your doctor or pharmacist for more information. What SPECIAL PRECAUTIONS should I follow? Before taking metronidazole, tell your doctor if you or your child has Cockayne syndrome (an inherited condition that causes sensitivity to light, premature aging, failure to gain weight and grow, and delayed development). Your doctor will probably tell you that you or your child should not take metronidazole. ??? tell your doctor and pharmacist if you are allergic to metronidazole, benznidazole, fexinidazole, secnidazole (Solosec), tinidazole (Tindamax), any other medications, or any of the ingredients inmetronidazole preparations. Ask your pharmacist for a list of the ingredients. ??? tell your doctoror pharmacist if you are taking the following medication or have stopped taking it within the past two weeks: disulfiram. ??? tell your doctor and pharmacist what prescription, nonprescription medications, vitamins, nutritional supplements, and herbal products you are taking or plan to take. Your doctor may need to change the doses of your medications or monitor you carefully for side effects. ??? The following nonprescription or herbal products may interact with metronidazole: cimetidine (Tagamet HB). Be sure to let your doctor and pharmacist know that you are taking this medication before you start taking metronidazole. Do not start this medication while taking metronidazole without discussing with your healthcare provider. ??? tell your doctor if you have or have ever had Crohn's disease, blood problems, or kidney or liver disease. Also, tell your doctor if you have a yeast infectionor a medical condition that affects your brain. ??? tell your doctor if you are or plan tobecome . If you become while taking metronidazole, call your doctor. Women who are generally should not take metronidazole during the first trimester (first 3 months) of . ??? tell your doctor if you are or plan to breastfeed. If you take metronidazole while you are , your baby may receive some metronidazole in breast milk. If you are , your doctor may tell you to pump and discard your milk while you are taking metronidazole and for 48 hours after your final dose. Talk to your doctor about the best way to feed your baby while you are taking metronidazole. ??? do not drink alcoholic beverages or take products with alco hol or propylene glycol while taking this medication and for at least 3 days after your final dose.Alcohol and propylene glycol may cause nausea, vomiting, stomach cramps, headache, sweating, and flushing (redness of the face) when taken with metronidazole. What should I do IF I FORGET to take a dose? Take the missed dose as soon as you remember it. However, if it is almost time for the next dose, skip the missed dose and continue your regular dosing schedule. Do not take a double dose to make up for a missed one. What SIDE EFFECTS can this medicine cause? Metronidazole may cause side effects. Tell your doctor if any of these symptoms are severe or do not go away: ??? vomiting ??? nausea ??? diarrhea ??? constipation ??? upset stomach ??? stomach cramps ??? lossof appetite ??? headache ??? dry mouth ??? sharp, unpleasant metallic taste ??? furry tongue; mouthor tongue irritation ??? Some side effects can be serious. If you experience any of the following symptoms, call your doctor immediately: ??? numbness, pain, burning, or tingling in your hands or feet ??? seizures ??? rash ??? itching ??? hives ??? peeling or blistering skin ??? flushing ??? stuffynose, fever, sore throat, or other signs of infection ??? dizziness ??? difficulty speaking ??? problems with coordination ??? confusion Metronidazole may cause other side effects. Call your doctor if you have any unusual problems whiletaking this medication. If you experience a serious side effect, you or your doctor may send a report to the Food and Drug Administration's (FDA) MedInitMetch Adverse Event Reporting program online (http://www.fda.gov/Safety/MedWatch) or by phone ( ). What should I know about STORAGE and DISPOSAL of this medication? Keep this medication in the container it came in, tightly closed, and out of reach of children. Store it at room temperature and away from light, excess heat and moisture (not in the bathroom). It is important to keep all medication out of sight and reach of children as many containers (such as weekly pill minders and those for eye drops, creams, patches, and inhalers) are not child-resistant and young children can open them easily. To protect young children from poisoning, always lock safety caps and immediately place the medication in a safe location ??? one that is up and away and out of their sight and reach. http://www.upandWorkspot.org Unneeded medications should be disposed of in special ways to ensure that pets, children, and otherpeople cannot consume them. However, you should not flush this medication down the toilet. Instead,the best way to dispose of your medication is through a medicine take-back program. Talk to your pharmacist or contact your local garbage/recycling department to learn about take-back programs in your community. See the FDA's Safe Disposal of Medicines website (http://goo.gl/c4Rm4p) for more information if you do not have access to a take- back program. What should I do in case of OVERDOSE? In case of overdose, call the poison control helpline at . Information is also available online at https://www.poisonhelp.org/help. If the victim has collapsed, had a seizure, has trouble breathing, or can't be awakened, immediately call emergency services at 911. Symptoms of overdose may include the following: ??? nausea ??? vomiting ??? loss of muscle coordination ??? numbness, pain, burning, or tingling inyour hands or feet ??? seizures What OTHER INFORMATION should I know? Keep all appointments with your doctor and the laboratory. Your doctor will order certain lab teststo check your response to metronidazole. Before having any laboratory test, tell your doctor and the laboratory personnel that you are taking metronidazole. Do not let anyone else take your medication. Your prescription is probably not refillable. If you still have symptoms of infection after you finish the metronidazole, call your doctor. It is important for you to keep a written list of all of the prescription and nonprescription (awzf-xfs-sjzrdar) medicines you are taking, as well as any products such as vitamins, minerals, or otherdietary supplements. You should bring this list with you each time you visit a doctor or if you areadmitted to a hospital. It is also important information to carry with you in case of emergencies. This report on medications is for your information only, and is not considered individual patient advice. Because of the changing nature of drug information, please consult your physician or pharmacist about specific clinical use. The [place] Society of [employer]-System Pharmacists, Inc. represents that the information provided hereunder was formulated with a reasonable standard of care, and in conformity with professional standards in the field. The [place] [employer]-System Pharmacists, Inc. makes no representations or warranties, express or implied, including, but not limited to, any implied warranty of merchantability and/or fitness for a particular purpose, with respect to such information and specifically disclaims all such warranties. Users are advised that decisions regarding drug therapy are complex medical decisions requiring the independent, informed decision of an appropriate health pediatric acute care unit nurse, and the information is provided for informational purposes only. The entire monograph for a drug should be reviewed for a thorough understanding of the drug's actions, uses and side effects. The [place] [employer]-System Pharmacists, Inc. does not endorse or recommend the use of any drug.The information is not a substitute for medical care. AHFS?? Patient Medication Information???. ?? Copyright, 2023. The [place] Society of Health-SystemPharmacists??, [address] [facility], [address], [place], [place]. All Rights Reserved. Duplication for commercial use must be authorized by [facility]. Selected Revisions: March 29, 2023. AHFS?? Patient Medication Information???. ?? Copyright, 2023 ?? Patient Care team information Care Team Personnel Name: Taylor Newell Position: [facility] RN Member Role: Primary Care Nurse Name: Naty Pierson RN Position: S RN Member Role: Primary Care Nurse Name: Kirsten Fernandes RN Position: [facility] RN Supv Member Role: Primary Care Nurse Name: Melinda Morelos RN Position: [facility] RN Member Role: Primary Care Nurse Name: Sophia Pereira RN Position: [facility] RN Member Role: Primary Care Nurse Name: Rhonda Sapp RN Position: [facility] RN Member Role: Primary Care Nurse Name: Tammy Prescott RN Position: [facility] RN Member Role: Primary Care Nurse Name: Armando Justice RN Position: [facility] ED RN W/OE and Tasks Member Role: Primary Care Nurse Name: Arabella He RN Position: [facility] RN Member Role: Primary Care Nurse Name: Yoli Bryant RN Position: [facility] RN Member Role: Primary Care Nurse Name: Sarah Bales RN Position: [facility] RN Member Role: Primary Care Nurse Name: Naty Holt RN Position: [facility] RN Member Role: Primary Care Nurse Name: Kim Gonzalez RN Position: [facility] RN Member Role: Primary Care Nurse Name: Allyson Rodriguez RN Position: [facility] RN Member Role: Primary Care Nurse Name: Avril Wright RN Position: [facility] RN Member Role: Primary Care Nurse Name: Linda Manzano RN Position: [facility] RN Member Role: Primary Care Nurse Name: Chris Lobo RN Position: [facility] RN Member Role: Primary Care Nurse Name: Emilee Goldstein RN Position: [facility] RN Member Role: Primary Care Nurse Name: Francesca Day RN Position: [facility] AMB Nurse Member Role: Primary Care Nurse Name: Eliceo Ortiz RN Position: [facility] RN Member Role: Primary Care Nurse Name: Gwendolyn Petersen RN Position: [facility] RN Member Role: Primary Care Nurse Name: Mando Esparza RN Position: [facility] RN Member Role: Primary Care Nurse Name: Alida Cam RN Position: [facility] RN Member Role: Primary Care Nurse Name: Angella Lehman RN Position: [facility] RN Member Role: Primary Care Nurse Name: Alexandra Huff RN Position: [facility] RN Member Role: Primary Care Nurse Name: Kaya Worley RN Position: [facility] RN Member Role: Primary Care Nurse Name: Williams Talley RN Position: [facility] RN Member Role: Primary Care Nurse Name: Kylie Cheng RN Position: [facility] RN Member Role: Primary Care Nurse Name: Andrew Leach RN Position: [facility] SN RN Member Role: Primary Care Nurse Name: Kirsten Suarez RN Position: [facility] RN Member Role: Primary Care Nurse Name: Naty Collazo RN Position: [facility] RN Member Role: Primary Care Nurse Name: Keira Canada RN Position: [facility] RN Member Role: Primary Care Nurse Name: Karley Morgan Position: [facility] RN Member Role: Primary Care Nurse Name: Haley Alexander Position: [facility] RN Member Role: Primary Care Nurse Name: Elaine Powell RN Position: [facility] RN Member Role: Primary Care Nurse Name: Osmel Torres RN Position: [facility] RN Member Role: Primary Care Nurse Name: Kim Gates MD Position: [facility] Outreach Member Role: PCP Address: Address: [address] [place] [address] Name: Can Coto RN Position: [facility] RN Member Role: Primary Care Nurse Name: Janice Norwood RN Position: [facility] RN Member Role: Primary Care Nurse Name: Chucky Chandler RN Position: [facility] RN Member Role: Primary Care Nurse Name: Rakesh Barriga RN Position: [facility] RN Member Role: Primary Care Nurse Name: Gwendolyn Renteria LPN Position: [facility] RN Member Role: Primary Care Nurse Name: Marla Bell RN Position: [facility] International Logistics Coordinator Member Role: Primary Care Nurse Name: Danielle Iraheta RN Position: [facility] RN Member Role: Primary Care Nurse Name: Eddy Castle RN Position: [facility] ED RN W/OE and Tasks Member Role: Primary Care Nurse Name: Laura Loving RN Position: [facility] RN Member Role: Primary Care Nurse Name: Kavya Gaytan RN Position: [facility] RN Member Role: Primary Care Nurse Name: Allyson Bales RN Position: [facility] RN Member Role: Primary Care Nurse Name: Bryce Javier RN Position: [facility] RN Member Role: Primary Care Nurse Name: Charo Romano RN Position: [facility] SN RN Member Role: Primary Care Nurse Name: Patito Levin RN Position: [facility] RN Member Role: Primary Care Nurse Name: Elaine Hannon RN Position: [facility] RN Member Role: Primary Care Nurse Name: Sierra Mcqueen RN Position: [facility] RN Member Role: Primary Care Nurse Name: Kathya Pablo RN Position: [facility] Hospital International Logistics Coordinator Member Role: Primary Care Nurse Care Team Related Persons Name: REJIBHARGAVCLAUDIA Address: [address] [address]
--- OUTSIDE RECORDS SUMMARY | 2023-12-04 07:58 | XMS_ITS | Continuity of Care Document ---
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.(Confirmed) 03/30/10 Active Mastodynia, left chest wall from scarring(Confirmed) 10/31/10 Active Postmastectomy Lymphedema Sy ndrome, left arm(Confirmed) 10/31/10 Active Recurrent major depressive e pisodes, moderate(Confirmed) Active Vital Signs Most recent to oldest [Reference Range]: 1 Height 148.5 cm (11/24/20 10:52 AM) Weight 62.6 kg (11/24/20 10:52 AM) Pulse Rate [55-90 bpm] 89 bpm (11/24/20 10:52 AM) Body Mass Index [18.5-24.99] 28.39 *H* (11/24/20 10:52 AM) Blood Pressure [90-138/55-84 mm Hg] 155/ 65mm Hg *H* (11/24/20 10:52 AM) Temperature [96.8-100.4 DegF] 98.0 DegF (11/24/20 10:52 AM) Blood pressure sites Arm, right (11/24/20 10:52 AM) Temperature Route Temporal (11/24/20 10:52 AM) Dry Weight 62.6 kg (11/24/20 10:52 AM) Weight Obtained Via Standing scale (11/24/20 10:52 AM) Dry Weight Obtained Via Standing scale (11/24/20 10:52 AM) Social History Social History Type Response Smoking Status Never smoker entered on: 06/04/14 Sex
--- OUTSIDE RECORDS SUMMARY | 2023-12-04 07:58 | XMS_ITS | Continuity of Care Document ---
Author Organization [facility] Address [address] [place] [address]- Care Team Providers Care Tension Machine Operator Name Role Phone Kim Gates MD Primary Care Physician [phone] Encounter [facility] Date(s): 04/19/20 - 05/19/20 [facility] [address] [place] [address]- Attending Physician: AdmDerek avalos Admitting Physician: AdmDerek avalos Referring Physician: Admtr ArRenée Allergies, Adverse Reactions, Alerts Substance Reaction [...] of Left B reast, pT1c, pNX, IDC, 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
--- OUTSIDE RECORDS SUMMARY | 2023-12-04 07:58 | XMS_ITS | Continuity of Care Document ---
Author Organization [facility] Care Address [address] [place] [address]- Care Team Providers Care Stationary Boiler Fireman Name Role Phone Kim Gates MD Primary Care Physician Encounter [facility] Date(s): 05/26/20 - 06/25/20 [facility] [address] [place] [address]- Allergies, Adverse Reactions, Alerts Substance Reaction Severity [...] 3 Refills, Maintenance, 05/26/20 11:19:00 EST, Tablet, [facility], Partial fill upon patient request if [...] of Left B reast, pT1c, pNX, IDC, ER/[place] positive 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.(Confirmed) 03/30/10 Active Mastodynia, left chest wall from scarring(Confirmed) 10/31/10 Active Postmastectomy Lymphedema Sy ndrome, left arm(Confirmed) 10/31/10 Active Recurrent major depressive e pisodes, moderate(Confirmed) Active Social History Social History Type Response Smoking Status Never smoker entered on: 06/04/14 Sex
--- OUTSIDE RECORDS SUMMARY | 2023-12-04 07:58 | XMS_ITS | Continuity of Care Document ---
Author Organization [facility] ancer Care Address [address] [place] [id number]- Care Team Providers Care Arrt Technologist Name Role Phone Kim Gates MD Primary Care Physician [phone] Encounter [facility] Date(s): 01/08/22 - 03/12/22 [facility] [address] [place] [id number] Discharge Disposition: A-D/C Home [...] before lunch, # 90 tablet, 3 Refills, [facility], 148.5, cm, 11/24/20 10:52:00 EDT, Height, 62.6, kg, 11/24/20 10:52:00 EDT, Dry Weight Start Date: 05/15/21 Status: Ordered Basaglar KwikPen 100 units/mL subcutaneous solution 30, Subcutaneous Infusion, Daily at bedtime, 0 Refills, Maintenance, 09/10/18 7:52:55 EDT Start Date: 09/10/18 Status: Ordered clotrimazole 1% topical cream 1 application, Topically, 2 times a day, for 14 days, # 30 Gm, 1 Refills, Acute 03/13/22 10:59:00 EST, 02/13/22 10:59:00 EDT, Cream, [facility], Partial fill upon patient requestif the prescription is for a schedule II opioid sana... 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 Confirmed 03/30/10 Active Mastodynia, left chest wall from scarring Confirmed 10/31/10 Active Postmastectomy Lymphedema Syndrome, left arm Confirmed 10/31/10 Active Recurrent major depressive episodes, moderate Confirmed Active Vital Signs Most recent to oldest [Reference Range]: 1 Height 148.5 cm (01/10/22 9:59 AM) Weight 59.7 kg (01/10/22 9:59 AM) Pulse Rate [55-90 bpm] 86 bpm (01/10/22 9:59 AM) Body Mass Index [18.5-24.99 kg/m2] 27.07 kg/m2 *H* (01/10/22 9:59 AM) Blood Pressure [90-138/55-84 mm Hg] 160/ 74mm Hg *H* (01/10/22 9:59 AM) Temperature [96.8-100.4 DegF] 97.6 DegF (01/10/22 9:59 AM) Blood pressure sites Arm, right (01/10/22 9:59 AM) Temperature Route Oral (01/10/22 9:59 AM) Dry Weight 59.7 kg (01/10/22 9:59 AM) Weight Obtained Via Standing scale (01/10/22 9:59 AM) Dry Weight Obtained Via Standing scale (01/10/22 9:59 AM) Social History Social History Type Response Smoking Status Never smoker entered on: 06/04/14 Sex Patient Care team information Care Team Personnel Name: Alvin Newellia Position: [facility] Onco RN Member Role: Primary Care Nurse Name: Armanod Justice RN Position: [facility] ED RN W/OE and Tasks Member Role: Primary Care Nurse Name: Sarah Bales RN Position: [facility] RN Member Role: Primary Care Nurse Name: Naty Pickett RN Position: [facility] PCO RN Member Role: Primary Care Nurse Name: Francesca Day RN Position: [facility] AMB Nurse Member Role: Primary Care Nurse Name: Irene Cotto RN Position: [facility] RN Member Role: Primary Care Nurse Name: Monica Sandoval RN Position: [facility] RN Member Role: Primary Care Nurse Name: Mando Esparza RN Position: [facility] RN Member Role: Primary Care Nurse Name: Kaya Worley RN Position: [facility] RN Member Role: Primary Care Nurse Name: Williams Talley RN Position: [facility] RN Member Role: Primary Care Nurse Name: Kylie Cheng RN Position: [facility] RN Member Role: Primary Care Nurse Name: Andrew Leach RN Position: [facility] SN RN Member Role: Primary Care Nurse Name: Elaine Powell RN Position: [facility] RN Member Role: Primary Care Nurse Name: Kim Gates MD Position: [facility] Outreach Member Role: PCP Address: Address: [address] [place] [id number] Name: Janice Norwood RN Position: [facility] RN Member Role: Primary Care Nurse Name: Rakesh Barriga RN Position: [facility] RN Member Role: Primary Care Nurse Name: Marla Bell RN Position: [facility] Glassworker Member Role: Primary Care Nurse Name: Allyson Bales RN Position: [facility] RN Member Role: Primary Care Nurse Name: Charo Romano RN Position: [facility] SN RN Member Role: Primary Care Nurse Name: Patito Levin RN Position: [facility] RN Member Role: Primary Care Nurse Name: Elaine Hannon RN Position: [facility] RN Member Role: Primary Care Nurse Name: Kathya Pablo RN Position: [facility] Glassworker Member Role: Primary Care Nurse Care Team Related Persons Name: CELINACLAUDIA Address: [address] [address]
--- OUTSIDE RECORDS SUMMARY | 2023-12-04 07:58 | XMS_ITS | Continuity of Care Document ---
Author Organization [facility] an[facility] Care Address [address] [place] [id number]- Care Team Providers Care Teacher Of The Handicapped Name Role Phone Kim Gates MD Primary Care Physician Encounter [facility] Date(s): 01/09/23 - 02/08/23 [facility] [address] [place] [id number] Allergies, Adverse Reactions, Alerts Substance Reaction Severity [...] # 90 tablet, 3 Refills, 05/15/22 16:31:00 [facility], [facility], 148.5, cm, 01/10/22 9:59:00 EDT, [...] Care Team Personnel Name: Taylor Newell Position: [facility] Onco RN Member Role: Primary Care Nurse Name: Armando Justice RN Position: [facility] ED RN W/OE and Tasks Member Role: Primary Care Nurse Name: Sarah Bales RN Position: [facility] RN Member Role: Primary Care Nurse Name: Naty Holt RN Position: [facility] RN Member Role: Primary Care Nurse Name: Francesca Day RN Position: [facility] AMB Nurse Member Role: Primary Care Nurse Name: Irene Cotto RN Position: [facility] RN Member Role: Primary Care Nurse Name: Mando Esparza RN Position: [facility] RN Member Role: Primary Care Nurse Name: Williams Talley RN Position: [facility] RN Member Role: Primary Care Nurse Name: Kylie Cheng RN Position: [facility] RN Member Role: Primary Care Nurse Name: Andrew Leach RN Position: [facility] SN RN Member Role: Primary Care Nurse Name: Elaine Powell RN Position: [facility] RN Member Role: Primary Care Nurse Name: Kim Gates MD Position: [facility] Outreach Member Role: PCP Address: Address: [address] [place] [id number] Name: Janice Norwood RN Position: [facility] RN Member Role: Primary Care Nurse Name: Rakesh Barriga RN Position: [facility] RN Member Role: Primary Care Nurse Name: Marla Bell RN Position: [facility] User Acceptance Tester Member Role: Primary Care Nurse Name: Allyson Bales RN Position: [facility] RN Member Role: Primary Care Nurse Name: Charo Romano RN Position: [facility] SN RN Member Role: Primary Care Nurse Name: Patito Levin RN Position: [facility] RN Member Role: Primary Care Nurse Name: Elaine Hannon RN Position: [facility] RN Member Role: Primary Care Nurse Name: Kathya Pablo RN Position: [facility] User Acceptance Tester Member Role: Primary Care Nurse Care Team Related Persons Name: REJIBHARGAVCLAUDIA Address: home [address] [place] [id number]
--- OUTSIDE RECORDS SUMMARY | 2023-12-04 07:58 | XMS_ITS | Continuity of Care Document ---
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 Confirmed 03/30/10 Active Mastodynia, left chest wall from scarring Confirmed 10/31/10 Active Postmastectomy Lymphedema Syndrome, left arm Confirmed 10/31/10 Active Recurrent major depressive episodes, moderate Confirmed Active Underweight Confirmed Active Vital Signs Most recent to oldest [Reference Range]: 1 Height 148.5 cm (01/09/23 10:15 AM) Weight 59.5 kg (01/09/23 10:15 AM) Oxygen Saturation [94-100 %] 100 % (01/09/23 10:15 AM) Pulse Rate [55-90 bpm] 78 bpm (01/09/23 10:15 AM) Body Mass Index [18.5-24.99 kg/m2] 26.98 kg/m2 *H* (01/09/23 10:15 AM) Blood Pressure [90-138/55-84 mm Hg] 156/ 61mm Hg *H* (01/09/23 10:15 AM) Temperature [96.8-100.4 DegF] 98.7 DegF (01/09/23 10:15 AM) Mode of Delivery (Oxygen) Room air (01/09/23 10:15 AM) Blood pressure sites Arm, right (01/09/23 10:15 AM) Temperature Route Oral (01/09/23 10:15 AM) Dry Weight 59.5 kg (01/09/23 10:15 AM) Weight Obtained Via Standing scale (01/09/23 10:15 AM) Dry Weight Obtained Via Standing scale (01/09/23 10:15 AM) Social History Social History Type Response Smoking Status Never smoker entered on: 06/04/14 Sex Note * Cyn Woodard: PERFORM, SIGN, VERIFY Event Display: Patient Education/Instruction Authored Date: [id number] [facility] *Heme/Onc Adult Clinical Summary Name OPAL QUIROZ Age 72 Years 1950 PCP Kody ESPINOZA, Kim Jasso PCP Visit Date 01/03/2023 16:10:00 Additional Instructions: Scheduled Appointments?? Future Appointments ?No Future Appointments Scheduled Follow-Up Instructions ?? With: Address: When: Bryce Bowden [address] [place] [address] [place] [address] [facility] (1) 01/15/2024 10:00 AM Diagnosis Medications: Please continue your medications until treatment is completed or stopped by your provider. Discuss any questions related to medications with your provider. Medications to Continue with No Changes These medications were not printed or sent to your pharmacy Anastrozole (anastrozole 1 mg oral tablet) 1 tab(s) Oral Daily before lunch. Refills: 3. Next Dose: Atorvastatin (atorvastatin 40 mg oral tablet) 1 tab(s) Oral Daily. Next Dose: Cholecalciferol (Vitamin D3) Oral Daily. Next Dose: dapagliflozin (Farxiga 10 mg oral tablet) 1 tab(s) Oral Daily. Next Dose: dulaglutide (Trulicity Pen 1.5 mg/0.5 mL subcutaneous solution) 0.5 Milliliter Subcutaneous Injection every week. Next Dose: Durable Medical Equipment (Mastectomy Bra) History of breast cancer Left mastectomy Diagnosis: . Refills: 0. Next Dose: Durable Medical Equipment (Mastectomy Bra) History of left breast cancer Left mastectomy Diagnosis: C5. Refills: 1. Next Dose: Durable Medical Equipment (Mastectomy Prosthesis) History of left breast cancer Left mastectomy Diagnosis: C5. Refills: 0. Next Dose: Durable Medical Equipment (Mastectomy Prosthesis) History of breast cancer Left mastectomy Diagnosis: . Refills: 0. Next Dose: Fluoxetine (PROzac 20 mg oral capsule) 20 Milligram Oral Daily. Refills: 0. Next Dose: Insulin Aspart (NovoLOG 100 units/mL injectable solution) 18 Subcutaneous Infusion Daily before dinner. Next Dose: Insulin Aspart (NovoLOG 100 units/mL injectable solution) 12 Subcutaneous Infusion Daily before breakfast. Next Dose: Insulin Aspart (NovoLOG 100 units/mL injectable solution) 18 unit(s) Subcutaneous Infusion Daily before lunch. Next Dose: Insulin Glargine (Basaglar KwikPen 100 units/mL subcutaneous solution) 30 Subcutaneous Infusion Daily at Bedtime. Next Dose: Levothyroxine (levothyroxine 0.1 mg oral tablet) 100 Microgram Oral Daily. Refills: 0. Next Dose: Losartan Oral Daily. Next Dose: Mirtazapine (mirtazapine 30 mg oral tablet) 1 tab(s) Oral Daily at Bedtime. Next Dose: Mirtazapine (mirtazapine 30 mg oral tablet) 1 tab(s) Oral Daily at Bedtime. Next Dose: Omeprazole (omeprazole 20 mg oral enteric coated capsule) 1 capsule Oral Daily. Next Dose: Risperidone (risperiDONE 1 mg oral tablet) 1 Milligram Oral Daily at Bedtime. Refills: 0. Next Dose: Simvastatin (simvastatin 80 mg oral tablet) 1 tab(s) Oral Daily at Bedtime. Next Dose: Allergy Info:?? Lovenox; atropine; penicillin Medications Given This Visit Future Orders ?No future orders Vital Signs Height 148.5 cm Weight 59.5 kg BMI 26.98 kg/m2 Blood Pressure 156 mm Hg/61 mm Hg Temperature 98.7 DegF Pulse Rate 78 bpm Respiratory Rate 02 Sat Mode of Delivery 100 %/Room air You can now view a summary of your hospital visit from the comfort of your home through a free online portal called [employer]. [employer] is a website that allows you to securely view your medical information including discharge summary, medications and follow-up visits. ??You can alsosend a secure electronic message to your doctor???s office to request appointments, renew medications or just ask a question. You can enroll at [email or web address] or register during your next office visit. Disclaimer:?? The information provided is of a general nature and is intended to be used in conjunction with the recommendations and advice of your health care practitioner. ??Every effort has been made to ensure that the information provided is accurate and complete at the time it is provided to you however, as your needs change, or, as new ??information becomes available, different or additional instructions may be required. If you have questions, please consult with your primary care provider or pharmacist, as appropriate. ??This information is not intended to serve as substitution for assessment and evaluation by a qualified health care provider. If you do not have a primary care provider, you may find a [facility] provider by calling [facility] Link at [phone]. [facility], in keeping with [facility] guidance, no longer requires face masks for staff, patientsor visitors in most situations. Similar to time spent indoors at other locations, there is the chance that you were exposed to respiratory viruses during your time with us (such as flu or COVID-19).? If you develop symptoms concerning for a viral respiratory infection, please seek testing (and treatment if indicated) from your medical provider or home test kit. For information about the plan of care including goals and instructions for your diagnosis, please see the patient education orders section of this document. Patient Education Materials?? The content of this educational material or handout may have been modified, supplemented, or adapted from its original content and format to support your individualized medical care. Patient Care team information Care Team Personnel Name: Taylor Newell Position: [facility] Onco RN Member Role: Primary Care Nurse Name: Armando Justice RN Position: [facility] ED RN W/OE and Tasks Member Role: Primary Care Nurse Name: Sarah Bales RN Position: [facility] RN Member Role: Primary Care Nurse Name: Naty Holt RN Position: [facility] RN Member Role: Primary Care Nurse Name: Francesac Day RN Position: [facility] AMB Nurse Member Role: Primary Care Nurse Name: Irene Cotto RN Position: [facility] RN Member Role: Primary Care Nurse Name: Mando Esparza RN Position: [facility] RN Member Role: Primary Care Nurse Name: Williams Talley RN Position: [facility] RN Member Role: Primary Care Nurse Name: Kylie Cheng RN Position: [facility] RN Member Role: Primary Care Nurse Name: Andrew Leach RN Position: [facility] SN RN Member Role: Primary Care Nurse Name: Elaine Powell RN Position: [facility] RN Member Role: Primary Care Nurse Name: Kim Gates MD Position: [facility] Outreach Member Role: PCP Address: Address: [address] [place] [id number] Name: Janice Norwood RN Position: [facility] RN Member Role: Primary Care Nurse Name: Rakesh Barriga RN Position: [facility] RN Member Role: Primary Care Nurse Name: Marla Bell RN Position: [facility] Fisheries Enforcement Officer Member Role: Primary Care Nurse Name: Allyson Bales RN Position: [facility] RN Member Role: Primary Care Nurse Name: Charo Romano RN Position: [facility] SN RN Member Role: Primary Care Nurse Name: Patito Levin RN Position: [facility] RN Member Role: Primary Care Nurse Name: Elaine Hannon RN Position: [facility] RN Member Role: Primary Care Nurse Name: Kathya Pablo RN Position: [facility] Fisheries Enforcement Officer Member Role: Primary Care Nurse Care Team Related Persons Name: CELINACLAUDIA Address: [address] [address]
--- OUTSIDE RECORDS SUMMARY | 2023-12-04 07:58 | XMS_ITS | Continuity of Care Document ---
Author Organization [facility] ter Address [address] [place] [id number]- Care Team Providers Care In Home Sales Consultant Name Role Phone Kim Gates MD Primary Care Physician Encounter [facility] Date(s): 03/22/23 - 03/22/[address] [address]- Discharge Disposition: A-D/C Home Attending Physician: Augusta Katz MD Admitting Physician: Augusta Katz MD Referring Physician: Not on Staff, Referring [...] 90 tablet, 3 Refills, 05/15/22 16:31:00 EST, 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 Confirmed 03/30/10 Active Mastodynia, left chest wall from scarring Confirmed 10/31/10 Active Postmastectomy Lymphedema Syndrome, left arm Confirmed 10/31/10 Active Recurrent major depressive episodes, moderate Confirmed Active Underweight Confirmed Active Results Radiology Reports * Exam Date Time Procedure Performing Provider Status 03/22/23 4:42 PM Chest 2 Views Frontal and Lat Canelo Lazo; Liset (Verified) Notes: (Chest 2 Views Frontal and Lat) Reason For Exam: Cough RESULT: Chest 2 Views Frontal and Lat Chest 2 Views Frontal and Lat Reason: Cough; Clinical Question(s): Pneumonia COMPARISON: 12/11/2017 and multiple priors. FINDINGS: LINES AND TUBES: None. LUNGS AND PLEURA: Clear lungs. Normal pulmonary vascularity. No pleural effusion. No pneumothorax. HEART, MEDIASTINUM AND ANICETO: Heart is normal in size. Aorta is calcified. BONES AND SOFT TISSUES: No acute abnormality. Left axillary surgical clips. Moderate bilateral glenohumeral joint degenerative changes. IMPRESSION: No acute abnormality. I have personally reviewed the images and I agree with this report. WSN: [id number] Ordering Physician: Amanda Samuel Dictated By: Dawna Archuleta MD Dictated Date/Time: 03/22/23 4:54 pm Reviewed By: Enoc Rosas MD, V Signed By: Enoc Rosas MD, V Signed Date/Time: 03/22/23 4:59 pm Transcribed By: BECKY Transcribed Date/Time: 03/22/23 4:52 pm Vital Signs Most recent to oldest [Reference Range]: 1 2 3 Oxygen Saturation [94-100 %] 96 % (03/22/23 10:58 PM) 97 % (03/22/23 8:43 PM) 99 % (03/22/23 6:56 PM) Pulse Rate [55-90 bpm] 73 bpm (03/22/23 10:58 PM) 73 bpm (03/22/23 8:43 PM) 75 bpm (03/22/23 6:56 PM) Blood Pressure [90-138/55-84 mm Hg] 151/61mm Hg *H* (03/22/23 10:58 PM) 150/60mm Hg *H* (03/22/23 8:43 PM) 156/60mm Hg *H* (03/22/23 6:56 PM) Respiratory Rate [16-30 br/min] 18 br/min (03/22/23 10:58 PM) 18 br/min (03/22/23 8:43 PM) 17 br/min (03/22/23 6:56 PM) Temperature [96.8-100.4 DegF] 98.1 DegF (03/22/23 10:58 PM) 98.6 DegF (03/22/23 8:43 PM) 98.5 DegF (03/22/23 3:29 PM) Mode of Delivery (Oxygen) room air (03/22/23 10:58 PM) room air (03/22/23 8:43 PM) Room air (03/22/23 6:56 PM) Blood pressure sites Arm, left (03/22/23 10:58 PM) Arm, left (03/22/23 8:43 PM) Arm, left (03/22/23 6:56 PM) Temperature Route Oral (03/22/23 10:58 PM) Oral (03/22/23 8:43 PM) Oral (03/22/23 3:29 PM) Social History Social History Type Response Smoking Status Never smoker entered on: 06/04/14 Sex Note * Carmen Santos: PERFORM, SIGN, VERIFY Event Display: Patient Education Handout Authored Date: [id number] Patient Care team information Care Team Personnel Name: Osiris , Taylor Position: [facility] Onco RN Member Role: Primary Care Nurse Name: Armando Justice RN Position: [facility] ED RN W/OE and Tasks Member Role: Primary Care Nurse Name: Sarah Bales RN Position: [facility] RN Member Role: Primary Care Nurse Name: Naty Holt RN Position: [facility] RN Member Role: Primary Care Nurse Name: Francesca Day RN Position: [facility] AMB Nurse Member Role: Primary Care Nurse Name: Irene Cotto RN Position: [facility] RN Member Role: Primary Care Nurse Name: Mando Esparza RN Position: [facility] RN Member Role: Primary Care Nurse Name: Williams Talley RN Position: [facility] RN Member Role: Primary Care Nurse Name: Kylie Cheng RN Position: [facility] RN Member Role: Primary Care Nurse Name: Andrew Leach RN Position: [facility] SN RN Member Role: Primary Care Nurse Name: Elaine Powell RN Position: [facility] RN Member Role: Primary Care Nurse Name: Kim Gates MD Position: [facility] Outreach Member Role: PCP Address: Address: [address] [place] [address] Name: Janice Norwood RN Position: [facility] RN Member Role: Primary Care Nurse Name: Rakesh Barriga RN Position: [facility] RN Member Role: Primary Care Nurse Name: Marla Bell RN Position: [facility] [employer] Consultant Member Role: Primary Care Nurse Name: Eddy Castle RN Position: [facility] ED RN W/OE and Tasks Member Role: Primary Care Nurse Name: Allyson Bales RN Position: [facility] RN Member Role: Primary Care Nurse Name: Charo Romano RN Position: [facility] SN RN Member Role: Primary Care Nurse Name: Patito Levin RN Position: [facility] RN Member Role: Primary Care Nurse Name: Elaine Hannon RN Position: [facility] RN Member Role: Primary Care Nurse Name: Kathya Pablo RN Position: [facility] [employer] Consultant Member Role: Primary Care Nurse Name: Kat RN, Marcella Position: [facility] ED RN W/OE and Tasks Member Role: Patient Care Provider Name: Augusta Katz MD Position: [facility] ED Medicine MD Member Role: Admitting Physician Address: Address: [address] [place] [address] Name: Jasmyne Pineda Position: [facility] ED TA [facility] Member Role: Patient Care Provider Name: Carmen Santos Position: [facility] Associate Professional Member Role: ED Physician [employer] Dean Address: Address: [address] [place] [address] Care Team Related Persons Name: CELINACLAUDIA Address: home [address] [place] [id number]
[2023-12-04 08:00] VITALS: BP 143/65; PULSE 76; RESP 18; TEMP 36.1; O2SAT 97
--- NOTE | 2023-12-04 09:23 | P.PNPSI_ITS ---
Subjective Subjective Date of Service: 12/04/23 Reason For Visit: Major depressive disorder, severe, recurrent Subjective Notes: Section 12B Interim History: The nursing staff reported that the patient had been compliant with treatment. She had been selectively mute nearly catatonic, very hypoactive. On interview the patient was minimally interactive feeling very sick. Admitted suicidal thoughts. The blood work came back positive to leave and needs to be restarted on vancomycin juan c. We are going to discuss with Dr. Greene for ECT. Mental Status Exam Mental Status Exam Patient Appearance: Appropriate Patient Orientation: Person Level of Consciousness: Awake and Appropriate Patient Behavior: Guarded and Passive Mood Description: Blunted Affect Description: Calm and Blunted Patient Cognition Impaired: Yes Ability to Follow Directions: Fair Speech Pattern: Impoverished and Difficulty Finding Words Hallucinations: None Delusions: Ideas of Reference Thought Process: Distracted and Slowed Thinking Thought Content: positive for Poverty of Content and positive for Thought Blocking Judgement: Poor Diagnostics Vital Signs (24Hr): Vital Signs - 24 hr 12/03/23 09:36 12/03/23 09:36 12/03/23 09:36 Temperature Pulse Rate Respiratory Rate Blood Pressure 108/62 108/62 108/62 Pulse Oximetry Oxygen Delivery Method 12/03/23 19:23 Temperature 97.5 F Pulse Rate 73 Respiratory Rate 16 Blood Pressure 141/65 H Pulse Oximetry 94 Oxygen Delivery Method Room Air Labs 12/03/23 10:29 12/03/23 08:01 Labs: Laboratory Results - last 48 hr 12/02/23 12/03/23 12/03/23 22:55 06:35 08:01 WBC RBC Hgb Hct MCV MCH MCHC RDW Plt Count MPV Immature Gran % (Auto) Neut % (Auto) Lymph % (Auto) Bailey % (Auto) Eos % (Auto) Baso % (Auto) Lymph # (Auto) Bailey # (Auto) Eos # (Auto) Baso # (Auto) Abs Immat Gran (auto) Absolute Neuts (auto) Absolute Nucleated RBC Nucleated RBC % (auto) Sodium 134 L Potassium 4.0 Chloride 98 Carbon Dioxide 27 Anion Gap 13 BUN 21 H Creatinine 0.88 Estim Creat Clear Calc TNP Estimated GFR > 60 POC Glucose 296 H 212 H Fasting Glucose 236 H Estimat Average Glucose 169 Hemoglobin A1c % 7.5 H Calcium 10.2 Total Bilirubin 0.5 AST 19 ALT 16 Alkaline Phosphatase 93 Ammonia Total Protein 8.7 H Albumin 3.5 Triglycerides 105 Cholesterol 182 LDL Cholesterol, Calc 93 HDL Cholesterol 68 Urine Color Urine Appearance Urine pH Ur Specific [place] Urine Protein Urine Glucose (UA) Urine Ketones Urine Blood Urine Nitrite Ur Leukocyte Esterase Urine RBC Urine WBC Ur Squamous Epith Cells Urine Bacteria Hyaline Casts Granular Casts Urine Yeast Stool Occult Blood C. difficile Tox B Gene C. difficile Toxin A&B C. difficile Interpret 12/03/23 12/03/23 12/03/23 10:29 11:31 11:45 WBC 4.6 L RBC 3.96 L Hgb 10.9 L Hct 33.1 L MCV 83.6 MCH 27.5 MCHC 32.9 RDW 14.9 Plt Count 116 L MPV 9.5 Immature Gran % (Auto) 0.2 Neut % (Auto) 70.4 Lymph % (Auto) 17.7 L Bailey % (Auto) 10.4 Eos % (Auto) 1.1 Baso % (Auto) 0.2 Lymph # (Auto) 0.8 L Bailey # (Auto) 0.5 Eos # (Auto) 0.1 Baso # (Auto) 0.0 Abs Immat Gran (auto) 0.01 Absolute Neuts (auto) 3.3 Absolute Nucleated RBC 0.000 Nucleated RBC % (auto) 0.0 Sodium Potassium Chloride Carbon Dioxide Anion Gap BUN Creatinine Estim Creat Clear Calc Estimated GFR POC Glucose 234 H Fasting Glucose Estimat Average Glucose Hemoglobin A1c % Calcium Total Bilirubin AST ALT Alkaline Phosphatase Ammonia 55 Total Protein Albumin Triglycerides Cholesterol LDL Cholesterol, Calc HDL Cholesterol Urine Color Urine Appearance Urine pH Ur Specific Early [place] Urine Protein Urine Glucose (UA) Urine Ketones Urine Blood Urine Nitrite Ur Leukocyte Esterase Urine RBC Urine WBC Ur Squamous Epith Cells Urine Bacteria Hyaline Casts Granular Casts Urine Yeast Stool Occult Blood C. difficile Tox B Gene C. difficile Toxin A&B C. difficile Interpret 12/03/23 12/03/23 12/03/23 16:05 16:31 17:30 WBC RBC Hgb Hct MCV MCH MCHC RDW Plt Count MPV Immature Gran % (Auto) Neut % (Auto) Lymph % (Auto) Bailey % (Auto) Eos % (Auto) Baso % (Auto) Lymph # (Auto) Bailey # (Auto) Eos # (Auto) Baso # (Auto) Abs Immat Gran (auto) Absolute Neuts (auto) Absolute Nucleated RBC Nucleated RBC % (auto) Sodium Potassium Chloride Carbon Dioxide Anion Gap BUN Creatinine Estim Creat Clear Calc Estimated GFR POC Glucose 217 H Fasting Glucose Estimat Average Glucose Hemoglobin A1c % Calcium Total Bilirubin AST ALT Alkaline Phosphatase Ammonia Total Protein Albumin Triglycerides Cholesterol LDL Cholesterol, Calc HDL Cholesterol Urine Color Yellow Urine Appearance Cloudy Urine pH 5.5 Ur Specific Early Branch 1.020 Urine Protein 30 (1+) H Urine Glucose (UA) Negative Urine Ketones Negative Urine Blood Moderate (2+) H Urine Nitrite Negative Ur Leukocyte Esterase Moderate (2+) H Urine RBC >20 H Urine WBC >50 H Ur Squamous Epith Cells 3-5 Urine Bacteria 4+ Hyaline Casts >20 Granular Casts Present Urine Yeast Present Stool Occult Blood NEGATIVE C. difficile Tox B Gene POSITIVE A* C. difficile Toxin A&B Positive A* C. difficile Interpret SEE NOTE 12/03/23 12/04/23 21:03 06:21 WBC RBC Hgb Hct MCV MCH MCHC RDW Plt Count MPV Immature Gran % (Auto) Neut % (Auto) Lymph % (Auto) Bailey % (Auto) Eos % (Auto) Baso % (Auto) Lymph # (Auto) Bailey # (Auto) Eos # (Auto) Baso # (Auto) Abs Immat Gran (auto) Absolute Neuts (auto) Absolute Nucleated RBC Nucleated RBC % (auto) Sodium Potassium Chloride Carbon Dioxide Anion Gap BUN Creatinine Estim Creat Clear Calc Estimated GFR POC Glucose 207 H 176 H Fasting Glucose Estimat Average Glucose Hemoglobin A1c % Calcium Total Bilirubin AST ALT Alkaline Phosphatase Ammonia Total Protein Albumin Triglycerides Cholesterol LDL Cholesterol, Calc HDL Cholesterol Urine Color Urine Appearance Urine pH Ur Specific Early [place] Urine Protein Urine Glucose (UA) Urine Ketones Urine Blood Urine Nitrite Ur Leukocyte Esterase Urine RBC Urine WBC Ur Squamous Epith Cells Urine Bacteria Hyaline Casts Granular Casts Urine Yeast Stool Occult Blood C. difficile Tox B Gene C. difficile Toxin A&B C. difficile Interpret Imaging Radiology Impressions: ITS Impressions Chest X-Ray 12/03/23 12:20 IMPRESSION: 1. Chronic interstitial prominence without focal consolidative airspace opacity. 2. Densities along the left lower chest which may represent pleural calcifications versus soft tissue calcifications. Correlation with lateral radiograph could help further evaluate. Electronically signed by: Viral Smallwood MD 12/03/2023 01:[address] 12/03/23 13:17 IMPRESSION: 1. No acute intracranial abnormalities. No intracranial hemorrhage or mass effect. 2. Moderate small vessel ischemic changes in the hemispheric white matter. 3. 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 4. Age advanced cerebral and cerebellar involutional changes with prominent ventricles. Cannot definitively exclude a component of communicating hydrocephalus given the appearance. Medications Medications Current Medications Acetaminophen (Acetaminophen 325 Mg Tablet) 650 mg PO Q6H PRN PRN Reason: Headache/Pain Mild Scale (1-3) Al Hydroxide/Mg Hydroxide (Magnesium Hydrox/Alum Hydrox 30 Ml Oral.Susp) 30 ml PO Q6H PRN PRN Reason: Heartburn/Nausea Amlodipine Besylate (Amlodipine Besylate 5 Mg Tablet) 5 mg PO DAILY [facility]; Protocol Last Admin: 12/03/23 09:36 Dose: 5 mg Anastrozole (Anastrozole 1 Mg Tablet) 1 mg PO DAILY [facility] Last Admin: 12/03/23 11:13 Dose: 1 mg Aspirin (Aspirin 81 Mg Tab.Chew) 81 mg PO DAILY [facility] Last Admin: 12/03/23 09:37 Dose: 81 mg Atorvastatin Calcium (Atorvastatin Calcium 10 Mg Tablet) 10 mg PO BEDTIME [facility] Last Admin: 12/03/23 19:25 Dose: 10 mg Cefuroxime Axetil (Cefuroxime Axetil 250 Mg Tablet) 250 mg PO Q12H [facility] Last Admin: 12/04/23 06:16 Dose: 250 mg Divalproex Sodium (Divalproex Sodium 500 Mg Tablet.) 500 mg PO BEDTIME [facility] Last Admin: 12/03/23 19:25 Dose: 500 mg Ferrous Sulfate (Ferrous Sulfate 324 Mg Tablet.) 324 mg PO DAILY [facility] Last Admin: 12/03/23 09:37 Dose: 324 mg Furosemide (Furosemide 20 Mg Tablet) 20 mg PO DAILY [facility]; Protocol Last Admin: 12/03/23 09:36 Dose: 20 mg Glucose (Glucose Gel 15 Gm Gel..Gram.) 15 gm PO Q15M PRN; Protocol PRN Reason: per Hypoglycemia Standing Ord. Dextrose (D10) 250 mls @ 750 mls/hr IV Q15M PRN; Protocol PRN Reason: per Hypoglycemia Standing Ord. Insulin Glargine (Insulin Glargine,Hum.Rec.Anlog 100 Unit/Ml 10 Ml Vial) 6 unit SUBCUT BEDTIME [facility] Last Admin: 12/03/23 21:14 Dose: 6 unit Levetiracetam (Levetiracetam 500 Mg Tablet) 500 mg PO BID [facility] Last Admin: 12/03/23 19:25 Dose: 500 mg Loratadine (Loratadine 10 Mg Tablet) 10 mg PO BEDTIME [facility] Last Admin: 12/03/23 19:25 Dose: 10 mg Losartan Potassium (Losartan Potassium 50 Mg Tablet) 100 mg PO DAILY [facility]; Protocol Last Admin: 12/03/23 09:36 Dose: 100 mg Magnesium Hydroxide (Milk Of Magnesia 30 Ml Oral.Susp) 30 ml PO DAILY PRN PRN Reason: Constipation Magnesium Oxide (Magnesium Oxide 400 Mg Tablet) 400 mg PO BID [facility] Last Admin: 12/03/23 19:26 Dose: 400 mg Mirtazapine (Mirtazapine 30 Mg Tablet) 30 mg PO BEDTIME [facility] Last Admin: 12/03/23 19:25 Dose: 30 mg Multivitamins/Vitamin C (Multivitamin Tablet) 1 tab PO DAILY [facility] Last Admin: 12/03/23 09:37 Dose: 1 tab Nicotine Polacrilex (Nicotine Polacrilex 2 Mg Gum) 4 mg BUCCAL Q2H PRN PRN Reason: Nicotine Cravings Omeprazole (Omeprazole 20 Mg Capsule.Dr) 20 mg PO DAILY@0630 [facility] Last Admin: 12/04/23 05:43 Dose: 20 mg Risperidone (Risperidone 0.5 Mg Tablet) 0.5 mg PO BID PRN PRN Reason: Restlessness Thiamine HCl (Thiamine Hcl 100 Mg Tablet) 100 mg PO DAILY [facility] Last Admin: 12/03/23 09:37 Dose: 100 mg Trazodone HCl (Trazodone Hcl 50 Mg Tablet) 50 mg PO BEDTIME PRN PRN Reason: Insomnia Vancomycin HCl (Vancomycin Hcl 125 Mg Capsule) 125 mg PO Q6H [facility] Allergies Allergies Allergy/AdvReac Type Severity Reaction Status Date / Time atropine Allergy Unknown Shortness Verified 12/02/23 23:30 of Breath enoxaparin [From Lovenox] Allergy Unknown Unknown Verified 12/02/23 23:30 penicillin V Allergy Unknown Unknown Verified 03/19/23 07:30 pseudoephedrine [Aprodine] Allergy Unknown Unknown Verified 03/19/23 07:30 triprolidine [Aprodine] Allergy Unknown Unknown Verified 03/19/23 07:30 Assessment & Plan Assessment & Plan (1) Major depressive disorder with psychotic features: Status: Acute Code(s): F32.3 - Major depressive disorder, single episode, severe with psychotic features (2) Dark stools: Status: Acute Code(s): R19.5 - Other fecal abnormalities (3) Essential hypertension: Status: Acute Code(s): I10 - Essential (primary) hypertension (4) Type 2 diabetes mellitus with unspecified complications: Status: Acute Code(s): E11.8 - Type 2 diabetes mellitus with unspecified complications (5) Aortic valve sclerosis: Status: Acute Code(s): I35.8 - Other nonrheumatic aortic valve disorders (6) CKD (chronic kidney disease) stage 3, GFR 30-59 ml/min: Status: Acute Code(s): N18.30 - Chronic kidney disease, stage 3 unspecified (7) HTN (hypertension): Status: Acute Code(s): I10 - Essential (primary) hypertension (8) T2DM (type 2 diabetes mellitus): Status: Acute Code(s): E11.9 - Type 2 diabetes mellitus without complications Plan 73-year-old female with history of insulin-dependent type 2 diabetes, hypertension, hyperlipidemia, history of C diff colitis, hypothyroidism, heart failure preserved ejection fraction, cirrhosis admitted to [facility] for catatonia with consult placed to hospitalist service for medical H&P. #Catatonia/neurocogitive disorder -r/o infectious causes of delerium -UA with slight bacteria at [facility], but no UC sent. Check UA w/ relfex UC. Treat as appropriate -Check CXR -COVID negative -check ammonia level -tsh/free t4 snl -Head CT ordered -If medical causes of delerium are ruled out and clinical presentation remains the same, psychiatry considering ECT. Apparently has undergone ECT in the past but prior notes are not available. No hx seizures or known CAD. Does have history of CHF, but no exacerbation. Revised cardiac risk index score 1, Class II risk. At this time no medical contraindication exists that should preclude patient from undergoing ECT. Recommend appropriate anesthesia precautions #Urinary retention -continue arango, please place urology consult # fecal incontinence with RN reported dark tarry stool -does take ferrous sulfate -check stool occult blood and H/H -check GI panel and C diff PCR given history #Stage 2 decubitus ulcer coccyx -wound RN consult # insulin-dependent type 2 diabetes -continue basal insulin, Humalog on sliding scale -POC glucose. Recommend diabetic diet # heart failure preserved ejection fraction -no acute exacerbation, continue p.o. diuretics # hypertension -continue losartan, amlodipine. 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 Gather collateral information. 2. Continue with Depakote another antiseizure medications. 3. Continue with Remeron as an antidepressant. 4. Referral for ECT. 5. Continue on 15 minutes checks. Reason for continued inpatient stay Substantial Risk for: inability to function, rapid decompensation and med/psych decompensation Time Spent With Patient Time: Total time managing care of this patient today __20__ minutes.
[2023-12-04 10:17] VITALS: BMI 26.4
[2023-12-04] MEDS: Thiamine HCL 100 MG TABLET PO (10:20)
[2023-12-04] MEDS: Anastrozole 1 MG TABLET PO (10:20)
[2023-12-04] MEDS: amLODIPine Besylate 5 MG TABLET PO (10:20)
[2023-12-04] MEDS: Ferrous Sulfate 324 MG TABLET.DR PO (10:20)
[2023-12-04] MEDS: Aspirin 81 MG TAB.CHEW PO (10:20)
[2023-12-04] MEDS: levETIRAcetam 500 MG TABLET PO ×2 (10:20→20:59)
[2023-12-04] MEDS: Multivitamin TABLET 1 TAB PO (10:20)
[2023-12-04] MEDS: Losartan Potassium 50 MG TABLET 100 MG PO (10:21)
[2023-12-04] MEDS: Furosemide 20 MG TABLET PO (10:21)
[2023-12-04] MEDS: Magnesium Oxide 400 MG TABLET PO ×2 (10:21→20:59)
--- NOTE | 2023-12-04 11:23 | MHC.CLN ---
NUTRITION CONSULT FOR PRESSURE INJURY. DIET=REGULAR. CURRENT PO POOR, 0-BITES. PATIENT WITH CATATONIA, C DIFF POSITIVE, STAGE II PRESSURE INJURY TO COCCYX. INCREASED NUTRITION NEEDS DUE TO PRESSURE INJURY; AT RISK OF DEHYDRATION WITH POOR PO AND C-DIFF. NO NEW WEIGHTS. WEIGHT ON 11/20/22=59.4 KG WITH BMI=26.4. WHEN INTAKE IMPROVES, PATIENT MAY BENEFIT FROM DIABETIC DIET WITH NUTRITIONAL SUPPLEMENTS. RD TO FOLLOW FOR PLAN OF CARE, INTAKE, AND WOUND HEALING. SEE CLINICAL NUTRITION ASSESSMENT 12/04/23.
[2023-12-04 11:32] LABS: Glucose, Whole Blood 210 mg/dL (60-115)
[2023-12-04 11:51] LABS: Adenovirus F 40/41 Not Detected (Not Detect.); Astrovirus Not Detected (Not Detect.); Campylobacter Not Detected (Not Detect.); Cryptosporidium Not Detected (Not Detect.); Cyclospora cayetanensis Not Detected (Not Detect.); E. coli EAEC Not Detected (Not Detect.); E. coli EPEC Not Detected (Not Detect.); E. coli ETEC Not Detected (Not Detect.); E. coli STEC Not Detected (Not Detect.); Entamoeba histolytica Not Detected (Not Detect.); Giardia lamblia Not Detected (Not Detect.); Norovirus GI/GII Not Detected (Not Detect.); Plesiomonas shigelloides Not Detected (Not Detect.); Rotavirus A Not Detected (Not Detect.); Salmonella Not Detected (Not Detect.); Sapovirus Not Detected (Not Detect.); Shigella sp./EIEC Not Detected (Not Detect.); Vibrio Not Detected (Not Detect.); Vibrio Cholerae Not Detected (Not Detect.); Yersinia enterocolitica Not Detected (Not Detect.)
[2023-12-04] MEDS: vancomycin HCL Oral Solution 125 MG/5 ML SOLN.RECON PO ×2 (14:36→20:59)
[2023-12-04 16:41] LABS: Glucose, Whole Blood 176 mg/dL (60-115)
[2023-12-04 20:00] VITALS: BP 120/56; PULSE 62; RESP 18; TEMP 36.1; O2SAT 93
[2023-12-04 20:21] LABS: Glucose, Whole Blood 154 mg/dL (60-115)
[2023-12-04] MEDS: Mirtazapine 30 MG TABLET PO (20:59)
[2023-12-04] MEDS: Atorvastatin Calcium 10 MG TABLET PO (20:59)
[2023-12-04] MEDS: Loratadine 10 MG TABLET PO (20:59)
[2023-12-04] MEDS: Divalproex Sodium 500 MG TABLET.DR PO (21:01)
[2023-12-05] MEDS: vancomycin HCL Oral Solution 125 MG/5 ML SOLN.RECON PO ×4 (01:20→20:39)
[2023-12-05] MEDS: Omeprazole 20 MG CAPSULE.DR PO (06:31)
[2023-12-05 06:49] LABS: Glucose, Whole Blood 146 mg/dL (60-115)
[2023-12-05 07:00] VITALS: BMI 20.1
[2023-12-05 08:00] VITALS: BP 136/82; PULSE 62; TEMP 36.2; O2SAT 96
[2023-12-05] MEDS: Anastrozole 1 MG TABLET PO (09:39)
[2023-12-05] MEDS: cefuroxime axetiL 250 MG TABLET PO ×2 (09:40→20:39)
[2023-12-05 09:46] VITALS: BP 123/69
[2023-12-05] MEDS: Losartan Potassium 50 MG TABLET 100 MG PO (09:46)
[2023-12-05] MEDS: Ferrous Sulfate 324 MG TABLET.DR PO (09:48)
[2023-12-05] MEDS: Multivitamin TABLET 1 TAB PO (09:48)
[2023-12-05 09:49] VITALS: BP 123/69
[2023-12-05] MEDS: Furosemide 20 MG TABLET PO (09:49)
[2023-12-05] MEDS: levETIRAcetam 500 MG TABLET PO ×2 (09:49→20:39)
[2023-12-05 09:50] VITALS: BP 123/69
[2023-12-05] MEDS: amLODIPine Besylate 5 MG TABLET PO (09:50)
[2023-12-05] MEDS: Thiamine HCL 100 MG TABLET PO (09:50)
[2023-12-05] MEDS: Magnesium Oxide 400 MG TABLET PO ×2 (09:51→20:39)
[2023-12-05] MEDS: Aspirin 81 MG TAB.CHEW PO (09:58)
[2023-12-05 11:13] LABS: Glucose, Whole Blood 164 mg/dL (60-115)
[2023-12-05] MEDS: Insulin Lispro 100 UNIT/ML 3 ML VIAL SUBCUT ×3 (11:27→20:40)
[2023-12-05 16:43] LABS: Glucose, Whole Blood 162 mg/dL (60-115)
--- NOTE | 2023-12-05 16:58 | HO.PSYCHPN ---
Subjective Subjective Date of Service: 12/05/23 Reason For Visit: Major depressive disorder, severe, recurrent Subjective Notes: Section 12B Medical Problems Affecting Mental Status: Yes (uti ) Interim History: Pt has been withdrawn mostly mute lying in bed on contact pre c diff Review of Systems arango cath ? intake Mental Status Exam Mental Status Exam Narrative: seen with interpeter pt psychomotor retarded nodded yes to depressed pt mostly non verbal appeared in distress Patient Orientation: Person Level of Consciousness: Awake Patient Behavior: Guarded and Passive Mood Description: Depressed and Blunted Affect Description: Calm and Blunted Patient Cognition Impaired: Yes Ability to Follow Directions: Fair Speech Pattern: Impoverished and Difficulty Finding Words Hallucinations: None Delusions: Ideas of Reference Thought Process: Slowed Thinking Thought Content: positive for Poverty of Content and positive for Thought Blocking Abnormal Motor Activity Signs and Symptoms: Psychomotor Retardation Judgement: Poor Diagnostics Vital Signs (24Hr): Vital Signs - 24 hr 12/04/23 20:00 12/05/23 08:00 12/05/23 09:46 Temperature 97 F 97.1 F Pulse Rate 62 62 Respiratory Rate 18 Blood Pressure 120/56 L 136/82 123/69 Pulse Oximetry 93 96 Oxygen Delivery Method Room Air Room Air 12/05/23 09:49 12/05/23 09:50 Temperature Pulse Rate Respiratory Rate Blood Pressure 123/69 123/69 Pulse Oximetry Oxygen Delivery Method BMI result Body Mass Index 20.1 Labs 12/03/23 10:29 12/03/23 08:01 Labs: Laboratory Results - last 48 hr 12/03/23 12/03/23 12/04/23 17:30 21:03 06:21 POC Glucose 207 H 176 H Stool Occult Blood NEGATIVE Stl C. cayetanensis PCR Not Detected Stool Rotavirus A PCR Not Detected Stl Adenov F 40/41 PCR Not Detected Stool Astrovirus (PCR) Not Detected Stool Campylobacter PCR Not Detected Stool Cryptosporidium PCR Not Detected Stl Sh Tox Pr E STEC PCR Not Detected Stool E coli O157 PCR Not applicable Stl Enterotoxigenic E PCR Not Detected Stool EPEC (PCR) Not Detected Stool EAEC (PCR) Not Detected Stl E. histolytica PCR Not Detected Stool Giardia Lamblia PCR Not Detected Stl P. shigelloides PCR Not Detected Stool Salmonella PCR Not Detected Stool Sapovirus (PCR) Not Detected Stl Shigella/EIEC PCR Not Detected St Y.enterocolitica PCR Not Detected Stool Vibrio (PCR) Not Detected Stl Vibrio cholerae PCR Not Detected Stl Norovirus GI/GII PCR Not Detected C. difficile Tox B Gene POSITIVE A* C. difficile Toxin A&B Positive A* C. difficile Interpret SEE NOTE 12/04/23 12/04/23 12/04/23 11:26 16:34 20:17 POC Glucose 210 H 176 H 154 H Stool Occult Blood Stl C. cayetanensis PCR Stool Rotavirus A PCR Stl Adenov F 40/41 PCR Stool Astrovirus (PCR) Stool Campylobacter PCR Stool Cryptosporidium PCR Stl Sh Tox Pr E STEC PCR Stool E coli O157 PCR Stl Enterotoxigenic E PCR Stool EPEC (PCR) Stool EAEC (PCR) Stl E. histolytica PCR Stool Giardia Lamblia PCR Stl P. shigelloides PCR Stool Salmonella PCR Stool Sapovirus (PCR) Stl Shigella/EIEC PCR St Y.enterocolitica PCR Stool Vibrio (PCR) Stl Vibrio cholerae PCR Stl Norovirus GI/GII PCR C. difficile Tox B Gene C. difficile Toxin A&B C. difficile Interpret 12/05/23 12/05/23 12/05/23 06:35 11:08 16:36 POC Glucose 146 H 164 H 162 H Stool Occult Blood Stl C. cayetanensis PCR Stool Rotavirus A PCR Stl Adenov F 40/41 PCR Stool Astrovirus (PCR) Stool Campylobacter PCR Stool Cryptosporidium PCR Stl Sh Tox Pr E STEC PCR Stool E coli O157 PCR Stl Enterotoxigenic E PCR Stool EPEC (PCR) Stool EAEC (PCR) Stl E. histolytica PCR Stool Giardia Lamblia PCR Stl P. shigelloides PCR Stool Salmonella PCR Stool Sapovirus (PCR) Stl Shigella/EIEC PCR St Y.enterocolitica PCR Stool Vibrio (PCR) Stl Vibrio cholerae PCR Stl Norovirus GI/GII PCR C. difficile Tox B Gene C. difficile Toxin A&B C. difficile Interpret Imaging Radiology Impressions: ITS Impressions Chest X-Ray 12/03/23 12:20 IMPRESSION: 1. Chronic interstitial prominence without focal consolidative airspace opacity. 2. Densities along the left lower chest which may represent pleural calcifications versus soft tissue calcifications. Correlation with lateral radiograph could help further evaluate. Electronically signed by: Viral Smallwood MD 12/03/2023 01:33 PM EDT RP Head CT 12/03/23 13:17 IMPRESSION: 1. No acute intracranial abnormalities. No intracranial hemorrhage or mass effect. 2. Moderate small vessel ischemic changes in the hemispheric white matter. 3. 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 4. Age advanced cerebral and cerebellar involutional changes with prominent ventricles. Cannot definitively exclude a component of communicating hydrocephalus given the appearance. Medications Medications Current Medications Acetaminophen (Acetaminophen 325 Mg Tablet) 650 mg PO Q6H PRN PRN Reason: Headache/Pain Mild Scale (1-3) Al Hydroxide/Mg Hydroxide (Magnesium Hydrox/Alum Hydrox 30 Ml Oral.Susp) 30 ml PO Q6H PRN PRN Reason: Heartburn/Nausea Amlodipine Besylate (Amlodipine Besylate 5 Mg Tablet) 5 mg PO DAILY [facility]; Protocol Last Admin: 12/05/23 09:50 Dose: 5 mg Anastrozole (Anastrozole 1 Mg Tablet) 1 mg PO DAILY [facility] Last Admin: 12/05/23 09:39 Dose: 1 mg Aspirin (Aspirin 81 Mg Tab.Chew) 81 mg PO DAILY [facility] Last Admin: 12/05/23 09:58 Dose: 81 mg Atorvastatin Calcium (Atorvastatin Calcium 10 Mg Tablet) 10 mg PO BEDTIME [facility] Last Admin: 12/04/23 20:59 Dose: 10 mg Cefuroxime Axetil (Cefuroxime Axetil 250 Mg Tablet) 250 mg PO Q12H [facility] Last Admin: 12/05/23 09:40 Dose: 250 mg Divalproex Sodium (Divalproex Sodium 500 Mg Tablet.) 500 mg PO BEDTIME [facility] Last Admin: 12/04/23 21:01 Dose: 500 mg Ferrous Sulfate (Ferrous Sulfate 324 Mg Tablet.) 324 mg PO DAILY [facility] Last Admin: 12/05/23 09:48 Dose: 324 mg Furosemide (Furosemide 20 Mg Tablet) 20 mg PO DAILY [facility]; Protocol Last Admin: 12/05/23 09:49 Dose: 20 mg Glucose (Glucose Gel 15 Gm Gel..Gram.) 15 gm PO Q15M PRN; Protocol PRN Reason: per Hypoglycemia Standing Ord. Dextrose (D10) 250 mls @ 750 mls/hr IV Q15M PRN; Protocol PRN Reason: per Hypoglycemia Standing Ord. Insulin Glargine (Insulin Glargine,Hum.Rec.Anlog 100 Unit/Ml 10 Ml Vial) 6 unit SUBCUT BEDTIME [facility] Last Admin: 12/04/23 20:31 Dose: Not Given Insulin Human Lispro (Insulin Lispro 100 Unit/Ml 3 Ml Vial) 0 unit SUBCUT QIDACHS [facility]; Protocol Last Admin: 12/05/23 16:45 Dose: 2 unit Levetiracetam (Levetiracetam 500 Mg Tablet) 500 mg PO BID [facility] Last Admin: 12/05/23 09:49 Dose: 500 mg Loratadine (Loratadine 10 Mg Tablet) 10 mg PO BEDTIME [facility] Last Admin: 12/04/23 20:59 Dose: 10 mg Losartan Potassium (Losartan Potassium 50 Mg Tablet) 100 mg PO DAILY [facility]; Protocol Last Admin: 12/05/23 09:46 Dose: 100 mg Magnesium Hydroxide (Milk Of Magnesia 30 Ml Oral.Susp) 30 ml PO DAILY PRN PRN Reason: Constipation Magnesium Oxide (Magnesium Oxide 400 Mg Tablet) 400 mg PO BID [facility] Last Admin: 12/05/23 09:51 Dose: 400 mg Mirtazapine (Mirtazapine 30 Mg Tablet) 30 mg PO BEDTIME [facility] Last Admin: 12/04/23 20:59 Dose: 30 mg Multivitamins/Vitamin C (Multivitamin Tablet) 1 tab PO DAILY [facility] Last Admin: 12/05/23 09:48 Dose: 1 tab Nicotine Polacrilex (Nicotine Polacrilex 2 Mg Gum) 4 mg BUCCAL Q2H PRN PRN Reason: Nicotine Cravings Omeprazole (Omeprazole 20 Mg Capsule.Dr) 20 mg PO DAILY@0630 [facility] Last Admin: 12/05/23 06:31 Dose: 20 mg Risperidone (Risperidone 0.5 Mg Tablet) 0.5 mg PO BID PRN PRN Reason: Restlessness Thiamine HCl (Thiamine Hcl 100 Mg Tablet) 100 mg PO DAILY [facility] Last Admin: 12/05/23 09:50 Dose: 100 mg Trazodone HCl (Trazodone Hcl 50 Mg Tablet) 50 mg PO BEDTIME PRN PRN Reason: Insomnia Vancomycin HCl (Vancomycin Hcl Oral Solution 125 Mg/5 Ml Soln.Recon) 125 mg PO Q6H [facility] Last Admin: 12/05/23 13:07 Dose: 125 mg Allergies Allergies Allergy/AdvReac Type Severity Reaction Status Date / Time atropine Allergy Unknown Shortness Verified 12/02/23 23:30 of Breath enoxaparin [From Lovenox] Allergy Unknown Unknown Verified 12/02/23 23:30 penicillin V Allergy Unknown Unknown Verified 03/19/23 07:30 pseudoephedrine [Aprodine] Allergy Unknown Unknown Verified 03/19/23 07:30 triprolidine [Aprodine] Allergy Unknown Unknown Verified 03/19/23 07:30 Assessment & Plan Assessment & Plan (1) Major depressive disorder with psychotic features: Status: Acute Code(s): F32.3 - Major depressive disorder, single episode, severe with psychotic features (2) Dark stools: Status: Acute Code(s): R19.5 - Other fecal abnormalities (3) Essential hypertension: Status: Acute Code(s): I10 - Essential (primary) hypertension (4) Type 2 diabetes mellitus with unspecified complications: Status: Acute Code(s): E11.8 - Type 2 diabetes mellitus with unspecified complications (5) Aortic valve sclerosis: Status: Acute Code(s): I35.8 - Other nonrheumatic aortic valve disorders (6) CKD (chronic kidney disease) stage 3, GFR 30-59 ml/min: Status: Acute Code(s): N18.30 - Chronic kidney disease, stage 3 unspecified (7) HTN (hypertension): Status: Acute Code(s): I10 - Essential (primary) hypertension (8) T2DM (type 2 diabetes mellitus): Status: Acute Code(s): E11.9 - Type 2 diabetes mellitus without complications Plan 73-year-old female with history of insulin-dependent type 2 diabetes, hypertension, hyperlipidemia, history of C diff colitis, hypothyroidism, heart failure preserved ejection fraction, cirrhosis admitted to Geriatric Psychiatry for catatonia with consult placed to hospitalist service for medical H&P. #Catatonia/neurocogitive disorder -r/o infectious causes of delerium -UA with slight bacteria at [facility], but no UC sent. Check UA w/ relfex UC. Treat as appropriate -Check CXR -COVID negative -check ammonia level -tsh/free t4 snl -Head CT ordered -If medical causes of delerium are ruled out and clinical presentation remains the same, psychiatry considering ECT. Apparently has undergone ECT in the past but prior notes are not available. No hx seizures or known CAD. Does have history of CHF, but no exacerbation. Revised cardiac risk index score 1, Class II risk. At this time no medical contraindication exists that should preclude patient from undergoing ECT. Recommend appropriate anesthesia precautions #Urinary retention -continue arango, please place urology consult # fecal incontinence with RN reported dark tarry stool -does take ferrous sulfate -check stool occult blood and H/H -check GI panel and C diff PCR given history #Stage 2 decubitus ulcer coccyx -wound RN consult # insulin-dependent type 2 diabetes -continue basal insulin, Humalog on sliding scale -POC glucose. Recommend diabetic diet # heart failure preserved ejection fraction -no acute exacerbation, continue p.o. diuretics # hypertension -continue losartan, amlodipine. 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 Gather collateral information. 2. Continue with Depakote another antiseizure medications. 3. Continue with Remeron as an antidepressant. 4. Referral for ECT. 5. Continue on 15 minutes checks. 12/04/22 complex pt seen with interpeter chart reviewed pt generally non verbal depressed on vancomycin catatonia complicated by medical condition cdiff uti ck labs consider iv hydration reevaluate for ect when less acute medically ck labs in am Reason for continued inpatient stay Substantial Risk for: inability to function, rapid decompensation and med/psych decompensation Time Spent With Patient Time: Total time managing care of this patient today ____ minutes.
--- NOTE | 2023-12-05 19:18 | PC.NURSE ---
Pt was observed to be tearful today on multiple occasions. Met with pt and [place] speaking nurse TM who asked her if pt was feeling safe on the unit, having SI, or depression. Pt would not respond to neither tw or the other nurse. Pt to be monitored and is on 5' checks for safety.
[2023-12-05 20:00] VITALS: BP 117/87; PULSE 70; RESP 16; TEMP 36.4; O2SAT 97
[2023-12-05 20:33] LABS: Glucose, Whole Blood 198 mg/dL (60-115)
[2023-12-05] MEDS: Atorvastatin Calcium 10 MG TABLET PO (20:39)
[2023-12-05] MEDS: Divalproex Sodium 500 MG TABLET.DR PO (20:39)
[2023-12-05] MEDS: Loratadine 10 MG TABLET PO (20:39)
[2023-12-05] MEDS: Mirtazapine 30 MG TABLET PO (20:39)
[2023-12-05] MEDS: Insulin Glargine,Hum.rec.anlog 100 UNIT/ML 10 ML VIAL 6 UNIT SUBCUT (20:40)
[2023-12-06] MEDS: vancomycin HCL Oral Solution 125 MG/5 ML SOLN.RECON PO ×4 (01:00→18:04)
[2023-12-06] MEDS: Omeprazole 20 MG CAPSULE.DR PO (06:19)
[2023-12-06 06:47] LABS: Glucose, Whole Blood 122 mg/dL (60-115)
[2023-12-06 08:44] LABS: Alanine Aminotransferase 15 U/L (0-31); Albumin Level 3.6 g/dL (3.5-5.0); Alkaline Phosphatase 97 U/L (39-117); Anion Gap 14 (12-20); Aspartate Amino Transferase 24 U/L (5-31); Bilirubin Total 0.5 mg/dL (0.0-1.0); Blood Urea Nitrogen 32 mg/dL (9-16); Calcium 10.7 mg/dL (8.4-10.2); Carbon Dioxide 30 mmol/L (22-29); Chloride 103 mmol/L (96-108); Creatinine Clr Calc Pharmacy 37.7; Estimated Glomerular Filt Rate > 60; Glucose Fasting 137 mg/dL (60-99); Potassium 4.5 mmol/L (3.3-5.1); Sodium 142 mmol/L (135-145); Total Protein 9.2 g/dL (6.5-8.0)
[2023-12-06 09:00] LABS: TSH reflex Free T4 2.88 uIU/mL (0.32-4.0)
[2023-12-06 09:01] VITALS: BP 138/63; PULSE 65; RESP 16; TEMP 36.2; O2SAT 97
[2023-12-06 09:10] LABS: Folate 14.9 ng/mL (> or = 4.0); Vitamin B12 1504 pg/mL (200-900)
[2023-12-06 11:35] LABS: Glucose, Whole Blood 135 mg/dL (60-115)
--- NOTE | 2023-12-06 13:49 | MHC.CLN ---
F/U DIET=REGULAR. ADDING ENSURE MAX BID (300 KCALS, 60 G PROTEIN). CURRENT PO POOR, 0-BITES. STAGE II PRESSURE INJURY TO COCCYX. ADM WEIGHT=45.2 KG SHOWING SIGNIFICANT WEIGHT LOSS X ONE YEAR -24% INCREASED NUTRITION NEEDS DUE TO PRESSURE INJURY; AT RISK OF DEHYDRATION WITH POOR PO AND C-DIFF. MONITOR FOR PLAN OF CARE, INTAKE, AND WOUND HEALING. RD TO FOLLOW WEEKLY.
--- NOTE | 2023-12-06 15:02 | PC.NURSE ---
Pt refused all her medications this morning (except from oral Vancomycin which she took) despite multiple attempts to administer.
[2023-12-06 16:41] LABS: Glucose, Whole Blood 173 mg/dL (60-115)
[2023-12-06] MEDS: Insulin Lispro 100 UNIT/ML 3 ML VIAL SUBCUT ×2 (16:44→21:19)
--- NOTE | 2023-12-06 17:15 | PM.UROCN ---
History of Present Illness Consult details Consult date: 12/06/23 Narrative: CC: Urinary retention and UTI 73-year-old female Background of diabetes, hypertension, heart failure, cirrhosis Admitted through geriatric psychiatry with catatonia Consult urology for question UTI and urinary retention Patient is incontinent baseline with high PVRs Meek catheter placed to emergency Noted to have episodes of fecal incontinence Review of Systems Constitutional: Constitutional: Reports as per HPI and Reports no additional constitutional complaints Cardiovascular: Cardiovascular: Reports as per HPI and Reports no additional cardiovascular complaints Respiratory: Respiratory: Reports as per HPI and Reports no additional respiratory complaints Gastrointestinal: Gastrointestinal: Reports as per HPI and Reports no additional gastrointestinal complaints Genitourinary: Genitourinary: Reports as per HPI Musculoskeletal: Musculoskeletal: Reports no additional musculoskeletal complaints and Reports as per HPI Neurologic: Reports system reviewed and no additional complaints, except as documented and Reports as per HPI PMFSH Past Medical History Medical History Fecal impaction Cirrhosis Hypothyroidism Breast cancer Hx of Clostridium difficile infection (HFpEF) heart failure with preserved ejection fraction Murmur CKD (chronic kidney disease) stage 3, GFR 30-59 ml/min Vitamin D deficiency HLD (hyperlipidemia) HTN (hypertension) T2DM (type 2 diabetes mellitus) Family History Family History Father Alzheimer disease Stroke Mother Breast cancer Surgical History Surgical History Hx of cataract surgery History of lumpectomy of right breast History of mastectomy Social History Social History Household Members: Family Household Members Other:: son Alcohol intake: never Comment: 1:1 observation Patient Tobacco Use Status: Never used Tobacco Advance Directives: No Advance Directives Information Provided: Yes service: No Sexual orientation: Straight/Heterosexual Meds Allergies Allergy/AdvReac Type Severity Reaction Status Date / Time atropine Allergy Unknown Shortness Verified 12/02/23 23:30 of Breath enoxaparin [From Lovenox] Allergy Unknown Unknown Verified 12/02/23 23:30 penicillin V Allergy Unknown Unknown Verified 03/19/23 07:30 pseudoephedrine [Aprodine] Allergy Unknown Unknown Verified 03/19/23 07:30 triprolidine [Aprodine] Allergy Unknown Unknown Verified 03/19/23 07:30 Active Medications: Current Medications Acetaminophen (Acetaminophen 325 Mg Tablet) 650 mg PO Q6H PRN PRN Reason: Headache/Pain Mild Scale (1-3) Al Hydroxide/Mg Hydroxide (Magnesium Hydrox/Alum Hydrox 30 Ml Oral.Susp) 30 ml PO Q6H PRN PRN Reason: Heartburn/Nausea Amlodipine Besylate (Amlodipine Besylate 5 Mg Tablet) 5 mg PO DAILY [facility]; Protocol Last Admin: 12/06/23 09:30 Dose: Not Given Anastrozole (Anastrozole 1 Mg Tablet) 1 mg PO DAILY [facility] Last Admin: 12/06/23 09:30 Dose: Not Given Aspirin (Aspirin 81 Mg Tab.Chew) 81 mg PO DAILY [facility] Last Admin: 12/06/23 09:31 Dose: Not Given Atorvastatin Calcium (Atorvastatin Calcium 10 Mg Tablet) 10 mg PO BEDTIME [facility] Last Admin: 12/05/23 20:39 Dose: 10 mg Cefuroxime Axetil (Cefuroxime Axetil 250 Mg Tablet) 250 mg PO Q12H [facility] Last Admin: 12/06/23 09:30 Dose: Not Given Divalproex Sodium (Divalproex Sodium 500 Mg Tablet.) 500 mg PO BEDTIME [facility] Last Admin: 12/05/23 20:39 Dose: 500 mg Ferrous Sulfate (Ferrous Sulfate 324 Mg Tablet.) 324 mg PO DAILY [facility] Last Admin: 12/06/23 09:31 Dose: Not Given Furosemide (Furosemide 20 Mg Tablet) 20 mg PO DAILY [facility]; Protocol Last Admin: 12/06/23 09:31 Dose: Not Given Glucose (Glucose Gel 15 Gm Gel..Gram.) 15 gm PO Q15M PRN; Protocol PRN Reason: per Hypoglycemia Standing Ord. Dextrose (D10) 250 mls @ 750 mls/hr IV Q15M PRN; Protocol PRN Reason: per Hypoglycemia Standing Ord. Insulin Glargine (Insulin Glargine,Hum.Rec.Anlog 100 Unit/Ml 10 Ml Vial) 6 unit SUBCUT BEDTIME [facility] Last Admin: 12/05/23 20:40 Dose: 6 unit Insulin Human Lispro (Insulin Lispro 100 Unit/Ml 3 Ml Vial) 0 unit SUBCUT QIDACHS [facility]; Protocol Last Admin: 12/06/23 16:44 Dose: 2 unit Levetiracetam (Levetiracetam 500 Mg Tablet) 500 mg PO BID [facility] Last Admin: 12/06/23 09:31 Dose: Not Given Loratadine (Loratadine 10 Mg Tablet) 10 mg PO BEDTIME [facility] Last Admin: 12/05/23 20:39 Dose: 10 mg Losartan Potassium (Losartan Potassium 50 Mg Tablet) 100 mg PO DAILY [facility]; Protocol Last Admin: 12/06/23 09:31 Dose: Not Given Magnesium Hydroxide (Milk Of Magnesia 30 Ml Oral.Susp) 30 ml PO DAILY PRN PRN Reason: Constipation Magnesium Oxide (Magnesium Oxide 400 Mg Tablet) 400 mg PO BID [facility] Last Admin: 12/06/23 09:31 Dose: Not Given Mirtazapine (Mirtazapine 30 Mg Tablet) 30 mg PO BEDTIME [facility] Last Admin: 12/05/23 20:39 Dose: 30 mg Multivitamins/Vitamin C (Multivitamin Tablet) 1 tab PO DAILY [facility] Last Admin: 12/06/23 09:31 Dose: Not Given Nicotine Polacrilex (Nicotine Polacrilex 2 Mg Gum) 4 mg BUCCAL Q2H PRN PRN Reason: Nicotine Cravings Omeprazole (Omeprazole 20 Mg Capsule.Dr) 20 mg PO DAILY@0630 [facility] Last Admin: 12/06/23 06:19 Dose: 20 mg Risperidone (Risperidone 0.5 Mg Tablet) 0.5 mg PO BID PRN PRN Reason: Restlessness Thiamine HCl (Thiamine Hcl 100 Mg Tablet) 100 mg PO DAILY [facility] Last Admin: 12/06/23 09:31 Dose: Not Given Trazodone HCl (Trazodone Hcl 50 Mg Tablet) 50 mg PO BEDTIME PRN PRN Reason: Insomnia Vancomycin HCl (Vancomycin Hcl Oral Solution 125 Mg/5 Ml Soln.Recon) 125 mg PO Q6H [facility] Last Admin: 12/06/23 13:18 Dose: 125 mg Physical Exam Vital Signs: Vital Signs: Last Vital Signs Temp 97.1 F 12/06/23 09:01 Pulse 65 12/06/23 09:01 Resp 16 12/06/23 09:01 BP 138/63 12/06/23 09:01 Pulse Ox 97 12/06/23 09:01 O2 Del Method Room Air 12/06/23 09:01 BMI result Body Mass Index 20.1 Const: General: cooperative, healthy appearing, comfortable and no acute distress Orientation/consciousness: patient oriented x3 HEENT: Face and sinus: Yes normal facial exam Mouth: moist mucous membranes Neck: Neck: Yes normal visual inspection, Yes full ROM and Yes trachea midline Chest: Chest palpation & inspection: normal inspection of the chest Resp: Effort & Inspection: normal respiratory effort, able to speak in complete sentences and no respiratory distress GI: Inspection: Yes normal to inspection Back/Spine/Pelvis: Cervical Spine: normal cervical lordosis Thoracic/Lumbar Spine: thoracic and lumbar spine normal to inspection Skin: General skin exam: no rashes or lesions noted Neuro: General: patient oriented x3, tone normal and moves all extremities Extrem: General: Yes normal to inspection and Yes capillary refill normal Results Labs 01/11/24 12:40 01/11/24 12:40 Labs: Abnormal lab results 12/05/23 12/06/23 12/06/23 Range/Units 20:27 06:22 07:57 Carbon Dioxide 30 H (22-29) mmol/L BUN 32 H (9-16) mg/dL POC Glucose 198 H 122 H (60-115) mg/dL Fasting Glucose 137 H (60-99) mg/dL Calcium 10.7 H (8.4-10.2) mg/dL Total Protein 9.2 H (6.5-8.0) g/dL Vitamin B12 1504 H (200-900) pg/mL 12/06/23 12/06/23 Range/Units 11:30 16:30 Carbon Dioxide (22-29) mmol/L BUN (9-16) mg/dL POC Glucose 135 H 173 H (60-115) mg/dL Fasting Glucose (60-99) mg/dL Calcium (8.4-10.2) mg/dL Total Protein (6.5-8.0) g/dL Vitamin B12 (200-900) pg/mL BMP 12/06/23 07:57 Sodium 142 Potassium 4.5 Chloride 103 Carbon Dioxide 30 H BUN 32 H Creatinine 0.88 Calcium 10.7 H Liver Function 12/06/23 Range/Units 07:57 Total Bilirubin 0.5 (0.0-1.0) mg/dL AST 24 (5-31) U/L ALT 15 (0-31) U/L Alkaline Phosphatase 97 (39-117) U/L Albumin 3.6 (3.5-5.0) g/dL Urine 12/03/23 Range/Units 16:05 Urine Color Yellow Urine Appearance Cloudy Urine pH 5.5 (5.0-9.0) Ur Specific [place] 1.020 (1.005-1.025) Urine Protein 30 (1+) H (Neg-Trace) mg/dL Urine Glucose (UA) Negative (Negative) mg/dL All other labs normal. Assessment and Plan (1) Recurrent UTI: Status: Acute Plan Maintain catheter till mobility Procedures Date of Service Date of Service: 02/18/24
--- NOTE | 2023-12-06 18:40 | PC.NURSE ---
Pt's lab results came positive for >100,000 E.coli in urine culture sensitive to Ceftin which pt is currently on.
[2023-12-06 19:57] LABS: Glucose, Whole Blood 208 mg/dL (60-115)
[2023-12-06 20:00] VITALS: BP 133/63; PULSE 76; RESP 16; TEMP 36.6; O2SAT 96
[2023-12-06] MEDS: cefuroxime axetiL 250 MG TABLET PO (21:19)
[2023-12-06] MEDS: Insulin Glargine,Hum.rec.anlog 100 UNIT/ML 10 ML VIAL 6 UNIT SUBCUT (21:19)
[2023-12-06] MEDS: Mirtazapine 30 MG TABLET PO (21:34)
[2023-12-06] MEDS: Magnesium Oxide 400 MG TABLET PO (21:34)
[2023-12-06] MEDS: Atorvastatin Calcium 10 MG TABLET PO (21:34)
[2023-12-06] MEDS: Loratadine 10 MG TABLET PO (21:34)
[2023-12-06] MEDS: levETIRAcetam 500 MG TABLET PO (21:34)
[2023-12-06] MEDS: Divalproex Sodium 500 MG TABLET.DR PO (21:34)
--- NOTE | 2023-12-06 23:58 | HO.PSYCHPN ---
Subjective Subjective Date of Service: 12/06/23 Reason For Visit: Major depressive disorder, severe, recurrent Interim History: Patient withdrawn depressed minimally interactive. Nodding her head when asking about being quite depressed poor intake vital signs remain stable labs unremarkable intermittently refusing medication patient positive for C diff history of C diff have been monitoring for need for IV fluids Medication Compliance: Intermittent Mental Status Exam Mental Status Exam Patient Appearance: Appropriate and Unkempt Patient Orientation: Person Level of Consciousness: Awake Patient Behavior: Guarded and Passive Mood Description: Withdrawn Affect Description: Blunted Patient Cognition Impaired: Yes Ability to Follow Directions: Good Speech Pattern: Clear Hallucinations: None Delusions: Ideas of Reference Thought Process: Distracted and Slowed Thinking Thought Content: positive for [place] and positive for Poverty of Content Judgement: Poor Diagnostics Vital Signs (24Hr): Vital Signs - 24 hr 12/06/23 09:01 12/06/23 20:00 Temperature 97.1 F 97.8 F Pulse Rate 65 76 Respiratory Rate 16 16 Blood Pressure 138/63 133/63 Pulse Oximetry 97 96 Oxygen Delivery Method Room Air Room Air BMI result Body Mass Index 20.1 Labs 12/09/23 09:57 12/09/23 09:57 Labs: Laboratory Results - last 48 hr 12/05/23 12/05/23 12/05/23 06:35 11:08 16:36 Sodium Potassium Chloride Carbon Dioxide Anion Gap BUN Creatinine Estim Creat Clear Calc Estimated GFR POC Glucose 146 H 164 H 162 H Fasting Glucose Calcium Total Bilirubin AST ALT Alkaline Phosphatase Total Protein Albumin Vitamin B12 Folate TSH 12/05/23 12/06/23 12/06/23 20:27 06:22 07:57 Sodium 142 Potassium 4.5 Chloride 103 Carbon Dioxide 30 H Anion Gap 14 BUN 32 H Creatinine 0.88 Estim Creat Clear Calc 37.7 Estimated GFR > 60 POC Glucose 198 H 122 H Fasting Glucose 137 H Calcium 10.7 H Total Bilirubin 0.5 AST 24 ALT 15 Alkaline Phosphatase 97 Total Protein 9.2 H Albumin 3.6 Vitamin B12 1504 H Folate 14.9 TSH 2.88 12/06/23 12/06/23 12/06/23 11:30 16:30 19:51 Sodium Potassium Chloride Carbon Dioxide Anion Gap BUN Creatinine Estim Creat Clear Calc Estimated GFR POC Glucose 135 H 173 H 208 H Fasting Glucose Calcium Total Bilirubin AST ALT Alkaline Phosphatase Total Protein Albumin Vitamin B12 Folate TSH Imaging Radiology Impressions: ITS Impressions Chest X-Ray 12/03/23 12:20 IMPRESSION: 1. Chronic interstitial prominence without focal consolidative airspace opacity. 2. Densities along the left lower chest which may represent pleural calcifications versus soft tissue calcifications. Correlation with lateral radiograph could help further evaluate. Electronically signed by: Viral Smallwood MD 12/03/2023 01:33 PM EDT RP Head CT 12/03/23 13:17 IMPRESSION: 1. No acute intracranial abnormalities. No intracranial hemorrhage or mass effect. 2. Moderate small vessel ischemic changes in the hemispheric white matter. 3. 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 4. Age advanced cerebral and cerebellar involutional changes with prominent ventricles. Cannot definitively exclude a component of communicating hydrocephalus given the appearance. Medications Medications Current Medications Acetaminophen (Acetaminophen 325 Mg Tablet) 650 mg PO Q6H PRN PRN Reason: Headache/Pain Mild Scale (1-3) Al Hydroxide/Mg Hydroxide (Magnesium Hydrox/Alum Hydrox 30 Ml Oral.Susp) 30 ml PO Q6H PRN PRN Reason: Heartburn/Nausea Amlodipine Besylate (Amlodipine Besylate 5 Mg Tablet) 5 mg PO DAILY [facility]; Protocol Last Admin: 12/06/23 09:30 Dose: Not Given Anastrozole (Anastrozole 1 Mg Tablet) 1 mg PO DAILY [facility] Last Admin: 12/06/23 09:30 Dose: Not Given Aspirin (Aspirin 81 Mg Tab.Chew) 81 mg PO DAILY [facility] Last Admin: 12/06/23 09:31 Dose: Not Given Atorvastatin Calcium (Atorvastatin Calcium 10 Mg Tablet) 10 mg PO BEDTIME [facility] Last Admin: 12/06/23 21:34 Dose: 10 mg Cefuroxime Axetil (Cefuroxime Axetil 250 Mg Tablet) 250 mg PO Q12H [facility] Last Admin: 12/06/23 21:19 Dose: 250 mg Divalproex Sodium (Divalproex Sodium 500 Mg Tablet.) 500 mg PO BEDTIME [facility] Last Admin: 12/06/23 21:34 Dose: 500 mg Ferrous Sulfate (Ferrous Sulfate 324 Mg Tablet.) 324 mg PO DAILY [facility] Last Admin: 12/06/23 09:31 Dose: Not Given Furosemide (Furosemide 20 Mg Tablet) 20 mg PO DAILY [facility]; Protocol Last Admin: 08/23/24 09:31 Dose: Not Given Glucose (Glucose Gel 15 Gm Gel..Gram.) 15 gm PO Q15M PRN; Protocol PRN Reason: per Hypoglycemia Standing Ord. Dextrose (D10) 250 mls @ 750 mls/hr IV Q15M PRN; Protocol PRN Reason: per Hypoglycemia Standing Ord. Insulin Glargine (Insulin Glargine,Hum.Rec.Anlog 100 Unit/Ml 10 Ml Vial) 6 unit SUBCUT BEDTIME [facility] Last Admin: 12/06/23 21:19 Dose: 6 unit Insulin Human Lispro (Insulin Lispro 100 Unit/Ml 3 Ml Vial) 0 unit SUBCUT QIDACHS [facility]; Protocol Last Admin: 12/06/23 21:19 Dose: 4 unit Levetiracetam (Levetiracetam 500 Mg Tablet) 500 mg PO BID [facility] Last Admin: 12/06/23 21:34 Dose: 500 mg Loratadine (Loratadine 10 Mg Tablet) 10 mg PO BEDTIME [facility] Last Admin: 12/06/23 21:34 Dose: 10 mg Losartan Potassium (Losartan Potassium 50 Mg Tablet) 100 mg PO DAILY [facility]; Protocol Last Admin: 12/06/23 09:31 Dose: Not Given Magnesium Hydroxide (Milk Of Magnesia 30 Ml Oral.Susp) 30 ml PO DAILY PRN PRN Reason: Constipation Magnesium Oxide (Magnesium Oxide 400 Mg Tablet) 400 mg PO BID [facility] Last Admin: 12/06/23 21:34 Dose: 400 mg Mirtazapine (Mirtazapine 30 Mg Tablet) 30 mg PO BEDTIME [facility] Last Admin: 12/06/23 21:34 Dose: 30 mg Multivitamins/Vitamin C (Multivitamin Tablet) 1 tab PO DAILY [facility] Last Admin: 12/06/23 09:31 Dose: Not Given Nicotine Polacrilex (Nicotine Polacrilex 2 Mg Gum) 4 mg BUCCAL Q2H PRN PRN Reason: Nicotine Cravings Omeprazole (Omeprazole 20 Mg Capsule.Dr) 20 mg PO DAILY@0630 [facility] Last Admin: 12/06/23 06:19 Dose: 20 mg Risperidone (Risperidone 0.5 Mg Tablet) 0.5 mg PO BID PRN PRN Reason: Restlessness Thiamine HCl (Thiamine Hcl 100 Mg Tablet) 100 mg PO DAILY [facility] Last Admin: 12/06/23 09:31 Dose: Not Given Trazodone HCl (Trazodone Hcl 50 Mg Tablet) 50 mg PO BEDTIME PRN PRN Reason: Insomnia Vancomycin HCl (Vancomycin Hcl Oral Solution 125 Mg/5 Ml Soln.Recon) 125 mg PO Q6H [facility] Last Admin: 12/06/23 18:04 Dose: 125 mg Allergies Allergies Allergy/AdvReac Type Severity Reaction Status Date / Time atropine Allergy Unknown Shortness Verified 12/02/23 23:30 of Breath enoxaparin [From Lovenox] Allergy Unknown Unknown Verified 12/02/23 23:30 penicillin V Allergy Unknown Unknown Verified 03/19/23 07:30 pseudoephedrine [Aprodine] Allergy Unknown Unknown Verified 03/19/23 07:30 triprolidine [Aprodine] Allergy Unknown Unknown Verified 03/19/23 07:30 Assessment & Plan Assessment & Plan (1) Major depressive disorder with psychotic features: Status: Acute Code(s): F32.3 - Major depressive disorder, single episode, severe with psychotic features (2) Dark stools: Status: Acute Code(s): R19.5 - Other fecal abnormalities (3) Essential hypertension: Status: Acute Code(s): I10 - Essential (primary) hypertension (4) Type 2 diabetes mellitus with unspecified complications: Status: Acute Code(s): E11.8 - Type 2 diabetes mellitus with unspecified complications (5) Aortic valve sclerosis: Status: Acute Code(s): I35.8 - Other nonrheumatic aortic valve disorders (6) CKD (chronic kidney disease) stage 3, GFR 30-59 ml/min: Status: Acute Code(s): N18.30 - Chronic kidney disease, stage 3 unspecified (7) HTN (hypertension): Status: Acute Code(s): I10 - Essential (primary) hypertension (8) T2DM (type 2 diabetes mellitus): Status: Acute Code(s): E11.9 - Type 2 diabetes mellitus without complications Plan 73-year-old female with history of insulin-dependent type 2 diabetes, hypertension, hyperlipidemia, history of C diff colitis, hypothyroidism, heart failure preserved ejection fraction, cirrhosis admitted to [facility] for catatonia with consult placed to hospitalist service for medical H&P. #Catatonia/neurocogitive disorder -r/o infectious causes of delerium -UA with slight bacteria at [facility], but no UC sent. Check UA w/ relfex UC. Treat as appropriate -Check CXR -COVID negative -check ammonia level -tsh/free t4 snl -Head CT ordered -If medical causes of delerium are ruled out and clinical presentation remains the same, psychiatry considering ECT. Apparently has undergone ECT in the past but prior notes are not available. No hx seizures or known CAD. Does have history of CHF, but no exacerbation. Revised cardiac risk index score 1, Class II risk. At this time no medical contraindication exists that should preclude patient from undergoing ECT. Recommend appropriate anesthesia precautions #Urinary retention -continue arango, please place urology consult # fecal incontinence with RN reported dark tarry stool -does take ferrous sulfate -check stool occult blood and H/H -check GI panel and C diff PCR given history #Stage 2 decubitus ulcer coccyx -wound RN consult # insulin-dependent type 2 diabetes -continue basal insulin, Humalog on sliding scale -POC glucose. Recommend diabetic diet # heart failure preserved ejection fraction -no acute exacerbation, continue p.o. diuretics # hypertension -continue losartan, amlodipine. 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 Gather collateral information. 2. Continue with Depakote another antiseizure medications. 3. Continue with Remeron as an antidepressant. 4. Referral for ECT. 5. Continue on 15 minutes checks. 12/04/22 complex pt seen with interpeter chart reviewed pt generally non verbal depressed on vancomycin catatonia complicated by medical condition cdiff uti ck labs consider iv hydration reevaluate for ect when less acute medically ck labs in am 12/06/2023 Continue plan of care question of need for ECT but patient quite complicated medically would benefit from getting records from [facility] past ECT Reason for continued inpatient stay Substantial Risk for: harm to self, inability to function, rapid decompensation and med/psych decompensation Time Spent With Patient Time: Total time managing care of this patient today ____ minutes.
[2023-12-07] MEDS: vancomycin HCL Oral Solution 125 MG/5 ML SOLN.RECON PO ×4 (02:42→20:37)
[2023-12-07] MEDS: Omeprazole 20 MG CAPSULE.DR PO (07:00)
[2023-12-07] MEDS: cefuroxime axetiL 250 MG TABLET PO ×2 (07:00→20:47)
[2023-12-07 07:04] LABS: Glucose, Whole Blood 151 mg/dL (60-115)
[2023-12-07 08:00] VITALS: BP 147/68; PULSE 66; RESP 18; TEMP 37.1; O2SAT 98
[2023-12-07 10:18] VITALS: BP 147/68
[2023-12-07] MEDS: Losartan Potassium 50 MG TABLET 100 MG PO (10:18)
[2023-12-07 10:19] VITALS: BP 147/68
[2023-12-07] MEDS: Furosemide 20 MG TABLET PO (10:19)
[2023-12-07 10:37] VITALS: BP 147/68
[2023-12-07 11:20] LABS: Glucose, Whole Blood 167 mg/dL (60-115)
--- NOTE | 2023-12-07 14:16 | P.PNPSI_ITS ---
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- lying in bed mumbles responses- only understands jordanian but her own articulation in unintelligible- I reviewed CT scan and patient has moderate vascular changes and abnormal ventricle and sulci ratio- Medication Compliance: Yes Side effects from medications: No (unknown) Attending Groups: No Review of Systems Acute medical concerns: No Medical Review of Systems: unchanged Mental Status Exam Mental Status Exam Narrative: lying in bed, face /body movements seem assymetric stroke like to this provider- which made me review head CT - Patient Appearance: Fatigued Patient Orientation: Person (reported yesterday with chyron operator- does respond to my saying her name) Level of Consciousness: Awake Patient Behavior: Good Eye Contact Mood Description: Depressed, Sad and Apprehensive Affect Description: Constricted and Blunted Patient Cognition Impaired: Yes Ability to Follow Directions: Poor Speech Pattern: Mumbled and Poor Articulation Thought Process: Disoriented (unclear not verbal enough or clear enough to understand) Thought Content: positive for [place], positive for Poverty of Content and positive for Suicidal Ideation Abnormal Motor Activity Signs and Symptoms: Psychomotor Retardation Judgement: Poor Diagnostics Vital Signs (24Hr): Vital Signs - 24 hr 12/06/23 20:00 12/07/23 08:00 12/07/23 10:18 Temperature 97.8 F 98.8 F Pulse Rate 76 66 Respiratory Rate 16 18 Blood Pressure 133/63 147/68 H 147/68 H Pulse Oximetry 96 98 Oxygen Delivery Method Room Air Room Air 12/07/23 10:19 12/07/23 10:37 Temperature Pulse Rate Respiratory Rate Blood Pressure 147/68 H 147/68 H Pulse Oximetry Oxygen Delivery Method BMI result Body Mass Index 20.1 Labs 12/03/23 10:29 12/06/23 07:57 Labs: Laboratory Results - last 48 hr 12/05/23 12/05/23 12/06/23 16:36 20:27 06:22 Sodium Potassium Chloride Carbon Dioxide Anion Gap BUN Creatinine Estim Creat Clear Calc Estimated GFR POC Glucose 162 H 198 H 122 H Fasting Glucose Calcium Total Bilirubin AST ALT Alkaline Phosphatase Total Protein Albumin Vitamin B12 Folate TSH 12/06/23 12/06/23 12/06/23 07:57 11:30 16:30 Sodium 142 Potassium 4.5 Chloride 103 Carbon Dioxide 30 H Anion Gap 14 BUN 32 H Creatinine 0.88 Estim Creat Clear Calc 37.7 Estimated GFR > 60 POC Glucose 135 H 173 H Fasting Glucose 137 H Calcium 10.7 H Total Bilirubin 0.5 AST 24 ALT 15 Alkaline Phosphatase 97 Total Protein 9.2 H Albumin 3.6 Vitamin B12 1504 H Folate 14.9 TSH 2.88 12/06/23 12/07/23 12/07/23 19:51 06:57 11:09 Sodium Potassium Chloride Carbon Dioxide Anion Gap BUN Creatinine Estim Creat Clear Calc Estimated GFR POC Glucose 208 H 151 H 167 H Fasting Glucose Calcium Total Bilirubin AST ALT Alkaline Phosphatase Total Protein Albumin Vitamin B12 Folate TSH Imaging Radiology Impressions: ITS Impressions Chest X-Ray 12/03/23 12:20 IMPRESSION: 1. Chronic interstitial prominence without focal consolidative airspace opacity. 2. Densities along the left lower chest which may represent pleural calcifications versus soft tissue calcifications. Correlation with lateral radiograph could help further evaluate. Electronically signed by: Viral Smallwood MD 12/03/2023 01:33 PM EDT RP Head CT 12/03/23 13:17 IMPRESSION: 1. No acute intracranial abnormalities. No intracranial hemorrhage or mass effect. 2. Moderate small vessel ischemic changes in the hemispheric white matter. 3. 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 4. Age advanced cerebral and cerebellar involutional changes with prominent ventricles. Cannot definitively exclude a component of communicating hydrocephalus given the appearance. Medications Medications Current Medications Acetaminophen (Acetaminophen 325 Mg Tablet) 650 mg PO Q6H PRN PRN Reason: Headache/Pain Mild Scale (1-3) Al Hydroxide/Mg Hydroxide (Magnesium Hydrox/Alum Hydrox 30 Ml Oral.Susp) 30 ml PO Q6H PRN PRN Reason: Heartburn/Nausea Amlodipine Besylate (Amlodipine Besylate 5 Mg Tablet) 5 mg PO DAILY [facility]; Protocol Last Admin: 12/07/23 10:37 Dose: Not Given Anastrozole (Anastrozole 1 Mg Tablet) 1 mg PO DAILY [facility] Last Admin: 12/07/23 10:37 Dose: Not Given Aspirin (Aspirin 81 Mg Tab.Chew) 81 mg PO DAILY [facility] Last Admin: 12/07/23 10:40 Dose: Not Given Atorvastatin Calcium (Atorvastatin Calcium 10 Mg Tablet) 10 mg PO BEDTIME [facility] Last Admin: 12/06/23 21:34 Dose: 10 mg Cefuroxime Axetil (Cefuroxime Axetil 250 Mg Tablet) 250 mg PO Q12H [facility] Last Admin: 12/06/23 21:19 Dose: 250 mg Divalproex Sodium (Divalproex Sodium 500 Mg Tablet.) 500 mg PO BEDTIME [facility] Last Admin: 12/06/23 21:34 Dose: 500 mg Ferrous Sulfate (Ferrous Sulfate 324 Mg Tablet.) 324 mg PO DAILY [facility] Last Admin: 12/07/23 10:40 Dose: Not Given Furosemide (Furosemide 20 Mg Tablet) 20 mg PO DAILY [facility]; Protocol Last Admin: 12/07/23 10:19 Dose: 20 mg Glucose (Glucose Gel 15 Gm Gel..Gram.) 15 gm PO Q15M PRN; Protocol PRN Reason: per Hypoglycemia Standing Ord. Dextrose (D10) 250 mls @ 750 mls/hr IV Q15M PRN; Protocol PRN Reason: per Hypoglycemia Standing Ord. Insulin Glargine (Insulin Glargine,Hum.Rec.Anlog 100 Unit/Ml 10 Ml Vial) 6 unit SUBCUT BEDTIME [facility] Last Admin: 12/06/23 21:19 Dose: 6 unit Insulin Human Lispro (Insulin Lispro 100 Unit/Ml 3 Ml Vial) 0 unit SUBCUT QIDACHS [facility]; Protocol Last Admin: 12/07/23 12:43 Dose: Not Given Levetiracetam (Levetiracetam 500 Mg Tablet) 500 mg PO BID [facility] Last Admin: 12/07/23 10:40 Dose: Not Given Loratadine (Loratadine 10 Mg Tablet) 10 mg PO BEDTIME [facility] Last Admin: 12/06/23 21:34 Dose: 10 mg Losartan Potassium (Losartan Potassium 50 Mg Tablet) 100 mg PO DAILY [facility]; Protocol Last Admin: 12/07/23 10:18 Dose: 100 mg Magnesium Hydroxide (Milk Of Magnesia 30 Ml Oral.Susp) 30 ml PO DAILY PRN PRN Reason: Constipation Magnesium Oxide (Magnesium Oxide 400 Mg Tablet) 400 mg PO BID [facility] Last Admin: 12/07/23 10:40 Dose: Not Given Mirtazapine (Mirtazapine 30 Mg Tablet) 30 mg PO BEDTIME [facility] Last Admin: 12/06/23 21:34 Dose: 30 mg Multivitamins/Vitamin C (Multivitamin Tablet) 1 tab PO DAILY [facility] Last Admin: 12/07/23 10:40 Dose: Not Given Nicotine Polacrilex (Nicotine Polacrilex 2 Mg Gum) 4 mg BUCCAL Q2H PRN PRN Reason: Nicotine Cravings Omeprazole (Omeprazole 20 Mg Capsule.Dr) 20 mg PO DAILY@0630 [facility] Last Admin: 12/07/23 07:00 Dose: 20 mg Risperidone (Risperidone 0.5 Mg Tablet) 0.5 mg PO BID PRN PRN Reason: Restlessness Thiamine HCl (Thiamine Hcl 100 Mg Tablet) 100 mg PO DAILY [facility] Last Admin: 12/07/23 10:40 Dose: Not Given Trazodone HCl (Trazodone Hcl 50 Mg Tablet) 50 mg PO BEDTIME PRN PRN Reason: Insomnia Vancomycin HCl (Vancomycin Hcl Oral Solution 125 Mg/5 Ml Soln.Recon) 125 mg PO Q6H [facility] Last Admin: 12/07/23 13:13 Dose: 125 mg Allergies Allergies Allergy/AdvReac Type Severity Reaction Status Date / Time atropine Allergy Unknown Shortness Verified 12/02/23 23:30 of Breath enoxaparin [From Lovenox] Allergy Unknown Unknown Verified 12/02/23 23:30 penicillin V Allergy Unknown Unknown Verified 03/19/23 07:30 pseudoephedrine [Aprodine] Allergy Unknown Unknown Verified 03/19/23 07:30 triprolidine [Aprodine] Allergy Unknown Unknown Verified 03/19/23 07:30 Assessment & Plan Assessment & Plan (1) Major depressive disorder with psychotic features: Status: Acute Code(s): F32.3 - Major depressive disorder, single episode, severe with psychotic features (2) Dark stools: Status: Acute Code(s): R19.5 - Other fecal abnormalities (3) Essential hypertension: Status: Acute Code(s): I10 - Essential (primary) hypertension (4) Type 2 diabetes mellitus with unspecified complications: Status: Acute Code(s): E11.8 - Type 2 diabetes mellitus with unspecified complications (5) Aortic valve sclerosis: Status: Acute Code(s): I35.8 - Other nonrheumatic aortic valve disorders (6) CKD (chronic kidney disease) stage 3, GFR 30-59 ml/min: Status: Acute Code(s): N18.30 - Chronic kidney disease, stage 3 unspecified (7) HTN (hypertension): Status: Acute Code(s): I10 - Essential (primary) hypertension (8) T2DM (type 2 diabetes mellitus): Status: Acute Code(s): E11.9 - Type 2 diabetes mellitus without complications Plan 73-year-old female with history of insulin-dependent type 2 diabetes, hypertension, hyperlipidemia, history of C diff colitis, hypothyroidism, heart failure preserved ejection fraction, cirrhosis admitted to [facility] Psychiatry for catatonia with consult placed to hospitalist service for medical H&P. #Catatonia/neurocogitive disorder -r/o infectious causes of delerium -UA with slight bacteria at [facility], but no UC sent. Check UA w/ relfex UC. Treat as appropriate -Check CXR -COVID negative -check ammonia level -tsh/free t4 snl -Head CT ordered -If medical causes of delerium are ruled out and clinical presentation remains the same, psychiatry considering ECT. Apparently has undergone ECT in the past but prior notes are not available. No hx seizures or known CAD. Does have history of CHF, but no exacerbation. Revised cardiac risk index score 1, Class II risk. At this time no medical contraindication exists that should preclude patient from undergoing ECT. Recommend appropriate anesthesia precautions #Urinary retention -continue arango, please place urology consult # fecal incontinence with RN reported dark tarry stool -does take ferrous sulfate -check stool occult blood and H/H -check GI panel and C diff PCR given history #Stage 2 decubitus ulcer coccyx -wound RN consult # insulin-dependent type 2 diabetes -continue basal insulin, Humalog on sliding scale -POC glucose. Recommend diabetic diet # heart failure preserved ejection fraction -no acute exacerbation, continue p.o. diuretics # hypertension -continue losartan, amlodipine. 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 Gather collateral information. 2. Continue with Depakote another antiseizure medications. 3. Continue with Remeron as an antidepressant. 4. Referral for ECT. 5. Continue on 15 minutes checks. 12/04/22 complex pt seen with interpeter chart reviewed pt generally non verbal depressed on vancomycin catatonia complicated by medical condition cdiff uti ck labs consider iv hydration reevaluate for ect when less acute medically ck labs in am 824/- labs ok - consider getting MRI head CT seems quite off- neurocognitive decline suspected behind catatonia- Informed Consent: does not understand Reason for continued inpatient stay Substantial Risk for: inability to function, rapid decompensation and med/psych decompensation Time Spent With Patient Time: Total time managing care of this patient today ____ minutes.
[2023-12-07 16:15] LABS: Glucose, Whole Blood 154 mg/dL (60-115)
[2023-12-07] MEDS: Insulin Lispro 100 UNIT/ML 3 ML VIAL SUBCUT ×2 (16:55→20:35)
[2023-12-07 19:48] LABS: Glucose, Whole Blood 225 mg/dL (60-115)
[2023-12-07 20:00] VITALS: BP 147/67; PULSE 69; RESP 18; TEMP 36.1; O2SAT 96
[2023-12-07] MEDS: Insulin Glargine,Hum.rec.anlog 100 UNIT/ML 10 ML VIAL 6 UNIT SUBCUT (20:36)
[2023-12-07] MEDS: levETIRAcetam 500 MG TABLET PO (20:41)
[2023-12-07] MEDS: Mirtazapine 30 MG TABLET PO (20:41)
[2023-12-07] MEDS: Divalproex Sodium 500 MG TABLET.DR PO (20:41)
[2023-12-07] MEDS: Magnesium Oxide 400 MG TABLET PO (20:41)
[2023-12-07] MEDS: Loratadine 10 MG TABLET PO (20:41)
[2023-12-07] MEDS: Atorvastatin Calcium 10 MG TABLET PO (20:41)
[2023-12-08] MEDS: vancomycin HCL Oral Solution 125 MG/5 ML SOLN.RECON PO ×3 (03:13→22:05)
[2023-12-08 06:53] LABS: Glucose, Whole Blood 150 mg/dL (60-115)
[2023-12-08 08:21] VITALS: BP 143/65; PULSE 57; RESP 16; TEMP 36.2; O2SAT 99
[2023-12-08 11:22] LABS: Glucose, Whole Blood 171 mg/dL (60-115)
--- NOTE | 2023-12-08 13:02 | P.PNPSI_ITS ---
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- said patient has not spoken to him today- that she gets scared if she hears bad news, and that mother from metastatic (?to stomacH) breast cancer- He describes pt was usually self after last 2008 ECT until 03/2023 when she had GI issues - ended up hospitalized with ruptured diverticulus 05/08-08/06 and then she has become like this- since that He recognizes this state and ECT has helped before (dr arrieta at [facility] would do ECT) I mentioned there were some finding on CT that may or may not be differnt from back then that could influence decision re ECT but that [facility] would discuss possible ECT with them (might be good to get old head CT to compare ) Medication Compliance: Intermittent (decreasing) Side effects from medications: No Attending Groups: No Review of Systems Acute medical concerns: Yes ? if still need precautions for cdiff Review of Systems: decrease po intake Mental Status Exam Mental Status Exam Narrative: lying in bed facing toward right face assymetrical says this is what she is like when she gets catatonic ADLs done by staff Level of Consciousness: Awake Mood Description: Withdrawn and Flat Ability to Follow Directions: Poor Speech Pattern: Aphasic (mute ) Abnormal Motor Activity Signs and Symptoms: Psychomotor Retardation Judgement: Poor Diagnostics Vital Signs (24Hr): Vital Signs - 24 hr 12/07/23 20:00 12/08/23 08:21 Temperature 96.9 F 97.2 F Pulse Rate 69 57 Respiratory Rate 18 16 Blood Pressure 147/67 H 143/65 H Pulse Oximetry 96 99 Oxygen Delivery Method Room Air Room Air BMI result Body Mass Index 20.1 Labs 12/08/23 19:07 12/08/23 19:07 Labs: Laboratory Results - last 48 hr 12/06/23 12/06/23 12/07/23 16:30 19:51 06:57 POC Glucose 173 H 208 H 151 H 12/07/23 12/07/23 12/07/23 11:09 16:11 19:32 POC Glucose 167 H 154 H 225 H 12/08/23 12/08/23 06:23 11:15 POC Glucose 150 H 171 H Imaging Radiology Impressions: ITS Impressions Chest X-Ray 12/03/23 12:20 IMPRESSION: 1. Chronic interstitial prominence without focal consolidative airspace opacity. 2. Densities along the left lower chest which may represent pleural calcifications versus soft tissue calcifications. Correlation with lateral radiograph could help further evaluate. Electronically signed by: Viral Smallwood MD 12/03/2023 01:33 PM EDT RP Head CT 12/03/23 13:17 IMPRESSION: 1. No acute intracranial abnormalities. No intracranial hemorrhage or mass effect. 2. Moderate small vessel ischemic changes in the hemispheric white matter. 3. 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 4. Age advanced cerebral and cerebellar involutional changes with prominent ventricles. Cannot definitively exclude a component of communicating hydrocephalus given the appearance. Medications Medications Current Medications Acetaminophen (Acetaminophen 325 Mg Tablet) 650 mg PO Q6H PRN PRN Reason: Headache/Pain Mild Scale (1-3) Al Hydroxide/Mg Hydroxide (Magnesium Hydrox/Alum Hydrox 30 Ml Oral.Susp) 30 ml PO Q6H PRN PRN Reason: Heartburn/Nausea Amlodipine Besylate (Amlodipine Besylate 5 Mg Tablet) 5 mg PO DAILY [facility]; Protocol Last Admin: 12/08/23 09:29 Dose: Not Given Anastrozole (Anastrozole 1 Mg Tablet) 1 mg PO DAILY [facility] Last Admin: 12/08/23 09:29 Dose: Not Given Aspirin (Aspirin 81 Mg Tab.Chew) 81 mg PO DAILY [facility] Last Admin: 12/08/23 09:29 Dose: Not Given Atorvastatin Calcium (Atorvastatin Calcium 10 Mg Tablet) 10 mg PO BEDTIME [facility] Last Admin: 12/07/23 20:41 Dose: 10 mg Cefuroxime Axetil (Cefuroxime Axetil 250 Mg Tablet) 250 mg PO Q12H [facility] Last Admin: 12/08/23 06:18 Dose: Not Given Divalproex Sodium (Divalproex Sodium 500 Mg Tablet.) 500 mg PO BEDTIME [facility] Last Admin: 12/07/23 20:41 Dose: 500 mg Ferrous Sulfate (Ferrous Sulfate 324 Mg Tablet.) 324 mg PO DAILY [facility] Last Admin: 12/08/23 09:30 Dose: Not Given Furosemide (Furosemide 20 Mg Tablet) 20 mg PO DAILY [facility]; Protocol Last Admin: 12/08/23 09:30 Dose: Not Given Glucose (Glucose Gel 15 Gm Gel..Gram.) 15 gm PO Q15M PRN; Protocol PRN Reason: per Hypoglycemia Standing Ord. Dextrose (D10) 250 mls @ 750 mls/hr IV Q15M PRN; Protocol PRN Reason: per Hypoglycemia Standing Ord. Insulin Glargine (Insulin Glargine,Hum.Rec.Anlog 100 Unit/Ml 10 Ml Vial) 6 unit SUBCUT BEDTIME [facility] Last Admin: 12/07/23 20:36 Dose: 6 unit Insulin Human Lispro (Insulin Lispro 100 Unit/Ml 3 Ml Vial) 0 unit SUBCUT QIDACHS [facility]; Protocol Last Admin: 12/08/23 11:33 Dose: Not Given Levetiracetam (Levetiracetam 500 Mg Tablet) 500 mg PO BID [facility] Last Admin: 12/08/23 09:30 Dose: Not Given Loratadine (Loratadine 10 Mg Tablet) 10 mg PO BEDTIME [facility] Last Admin: 12/07/23 20:41 Dose: 10 mg Losartan Potassium (Losartan Potassium 50 Mg Tablet) 100 mg PO DAILY [facility]; Protocol Last Admin: 12/08/23 09:30 Dose: Not Given Magnesium Hydroxide (Milk Of Magnesia 30 Ml Oral.Susp) 30 ml PO DAILY PRN PRN Reason: Constipation Magnesium Oxide (Magnesium Oxide 400 Mg Tablet) 400 mg PO BID [facility] Last Admin: 12/08/23 09:30 Dose: Not Given Mirtazapine (Mirtazapine 30 Mg Tablet) 30 mg PO BEDTIME [facility] Last Admin: 12/07/23 20:41 Dose: 30 mg Multivitamins/Vitamin C (Multivitamin Tablet) 1 tab PO DAILY [facility] Last Admin: 12/08/23 09:30 Dose: Not Given Nicotine Polacrilex (Nicotine Polacrilex 2 Mg Gum) 4 mg BUCCAL Q2H PRN PRN Reason: Nicotine Cravings Omeprazole (Omeprazole 20 Mg Capsule.) 20 mg PO DAILY@0630 [facility] Last Admin: 12/08/23 06:12 Dose: Not Given Risperidone (Risperidone 0.5 Mg Tablet) 0.5 mg PO BID PRN PRN Reason: Restlessness Thiamine HCl (Thiamine Hcl 100 Mg Tablet) 100 mg PO DAILY [facility] Last Admin: 12/08/23 09:30 Dose: Not Given Trazodone HCl (Trazodone Hcl 50 Mg Tablet) 50 mg PO BEDTIME PRN PRN Reason: Insomnia Vancomycin HCl (Vancomycin Hcl Oral Solution 125 Mg/5 Ml Soln.Recon) 125 mg PO Q6H [facility] Last Admin: 12/08/23 06:15 Dose: 125 mg Allergies Allergies Allergy/AdvReac Type Severity Reaction Status Date / Time atropine Allergy Unknown Shortness Verified 12/02/23 23:30 of Breath enoxaparin [From Lovenox] Allergy Unknown Unknown Verified 12/02/23 23:30 penicillin V Allergy Unknown Unknown Verified 03/19/23 07:30 pseudoephedrine [Aprodine] Allergy Unknown Unknown Verified 03/19/23 07:30 triprolidine [Aprodine] Allergy Unknown Unknown Verified 03/19/23 07:30 Assessment & Plan Assessment & Plan (1) Major depressive disorder with psychotic features: Status: Acute Code(s): F32.3 - Major depressive disorder, single episode, severe with psychotic features Assessment and Plan: Catatonic stopping eating, meds, fluids- may need ECT will need review will order labs (2) Dark stools: Status: Acute Code(s): R19.5 - Other fecal abnormalities (3) Essential hypertension: Status: Acute Code(s): I10 - Essential (primary) hypertension (4) Type 2 diabetes mellitus with unspecified complications: Status: Acute Code(s): E11.8 - Type 2 diabetes mellitus with unspecified complications (5) Aortic valve sclerosis: Status: Acute Code(s): I35.8 - Other nonrheumatic aortic valve disorders (6) CKD (chronic kidney disease) stage 3, GFR 30-59 ml/min: Status: Acute Code(s): N18.30 - Chronic kidney disease, stage 3 unspecified (7) HTN (hypertension): Status: Acute Code(s): I10 - Essential (primary) hypertension (8) T2DM (type 2 diabetes mellitus): Status: Acute Code(s): E11.9 - Type 2 diabetes mellitus without complications Plan 73-year-old female with history of insulin-dependent type 2 diabetes, hypertension, hyperlipidemia, history of C diff colitis, hypothyroidism, heart failure preserved ejection fraction, cirrhosis admitted to [facility] for catatonia with consult placed to hospitalist service for medical H&P. #Catatonia/neurocogitive disorder -r/o infectious causes of delerium -UA with slight bacteria at [facility], but no UC sent. Check UA w/ relfex UC. Treat as appropriate -Check CXR -COVID negative -check ammonia level -tsh/free t4 snl -Head CT ordered -If medical causes of delerium are ruled out and clinical presentation remains the same, psychiatry considering ECT. Apparently has undergone ECT in the past but prior notes are not available. No hx seizures or known CAD. Does have history of CHF, but no exacerbation. Revised cardiac risk index score 1, Class II risk. At this time no medical contraindication exists that should preclude patient from undergoing ECT. Recommend appropriate anesthesia precautions #Urinary retention -continue arango, please place urology consult # fecal incontinence with RN reported dark tarry stool -does take ferrous sulfate -check stool occult blood and H/H -check GI panel and C diff PCR given history #Stage 2 decubitus ulcer coccyx -wound RN consult # insulin-dependent type 2 diabetes -continue basal insulin, Humalog on sliding scale -POC glucose. Recommend diabetic diet # heart failure preserved ejection fraction -no acute exacerbation, continue p.o. diuretics # hypertension -continue losartan, amlodipine. 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 Gather collateral information. 2. Continue with Depakote another antiseizure medications. 3. Continue with Remeron as an antidepressant. 4. Referral for ECT. 5. Continue on 15 minutes checks. 12/04/22 complex pt seen with interpeter chart reviewed pt generally non verbal depressed on vancomycin catatonia complicated by medical condition cdiff uti ck labs consider iv hydration reevaluate for ect when less acute medically ck labs in am 824/- labs ok - consider getting MRI head CT seems quite off- neurocognitive decline suspected behind catatonia- 12/07 repeat labs as pt not eating in last day- or taking meds, no bms (hx cdiff) not taking oral vanco- Dr arrieta a colleague did do ECT on pt in past 2008- reports- wonder if there was an earlier head CT that could be compared- Guardian/Caregiver educated on: diagnosis, ECT and medical condition Informed Consent: understands and further education needed Reason for continued inpatient stay Substantial Risk for: inability to function, rapid decompensation and med/psych decompensation Time Spent With Patient Time: Total time managing care of this patient today ____ minutes.
--- NOTE | 2023-12-08 15:01 | PC.NURSE ---
Addendum entered by Tracee Araya RN 12/08/23 15:18: Held lunchtime insulin as po intake is poor and Dr. Clark notified. Original Note: Delaney declined meals and medications and Dr. Clark notified. Requested IM glucagon in case of potential hypoglycemia from Dr. Clark.
[2023-12-08 16:34] LABS: Glucose, Whole Blood 131 mg/dL (60-115)
--- NOTE | 2023-12-08 18:55 | PC.NURSE ---
Output 240mL since [address] Gold notified. Po intake of extremely poor and labs to be drawn.
[2023-12-08 20:00] VITALS: BP 124/60; PULSE 62; RESP 18; TEMP 36.6; O2SAT 95
[2023-12-08 20:03] LABS: MANUAL DIFF FLAG NO
[2023-12-08 20:04] LABS: Basophils Percent Auto 0.3 % (0-2); Eosinophils Percent Auto 1.2 % (0-4); Hemoglobin 10.3 g/dl (12.0-16.0); Imm Gran Abs Auto 0.01 X10*3/uL (0.00-0.03); Imm Gran Pct Auto 0.3 % (0.0-0.4); Lymphocytes Percent Auto 29.7 % (20-40); Mean Corpuscular HGB Conc 32.2 g/dl (31.0-35.0); Mean Corpuscular Hemoglobin 27.6 pg (27.0-33.0); Mean Corpuscular Volume 85.8 fL (80.0-98.0); Monocytes Absolute Auto 0.5 X10*3/uL (0.1-1.2); Monocytes Percent Auto 15.3 % (2-11); Neutrophils Absolute Auto 1.8 x10*3/uL (2.0-8.3); Neutrophils Percent Auto 53.2 % (45-73); Red Blood Count 3.73 X10*6/uL (4.20-5.50); Red Cell Distribution Width 14.2 % (11.0-16.0); White Blood Count 3.3 X10*3/uL (4.8-10.8)
[2023-12-08 20:06] LABS: Platelet Count 99 X10*3/uL (160-400)
[2023-12-08 20:15] LABS: Glucose, Whole Blood 116 mg/dL (60-115)
[2023-12-08 20:33] LABS: Alanine Aminotransferase 14 U/L (0-31); Albumin Level 3.4 g/dL (3.5-5.0); Alkaline Phosphatase 90 U/L (39-117); Anion Gap 12 (12-20); Aspartate Amino Transferase 25 U/L (5-31); Bilirubin Total 0.6 mg/dL (0.0-1.0); Blood Urea Nitrogen 27 mg/dL (9-16); Calcium 10.5 mg/dL (8.4-10.2); Carbon Dioxide 30 mmol/L (22-29); Chloride 104 mmol/L (96-108); Creatinine Clr Calc Pharmacy 40.4; Estimated Glomerular Filt Rate > 60; Glucose Random 114 mg/dL (60-115); Potassium 4.2 mmol/L (3.3-5.1); Sodium 142 mmol/L (135-145); Total Protein 8.6 g/dL (6.5-8.0)
[2023-12-08] MEDS: traZODone HCL 50 MG TABLET PO (22:06)
[2023-12-08] MEDS: Atorvastatin Calcium 10 MG TABLET PO (22:06)
[2023-12-08] MEDS: Divalproex Sodium 500 MG TABLET.DR PO (22:06)
[2023-12-08] MEDS: Loratadine 10 MG TABLET PO (22:06)
[2023-12-08] MEDS: cefuroxime axetiL 250 MG TABLET PO (22:06)
[2023-12-08] MEDS: Insulin Glargine,Hum.rec.anlog 100 UNIT/ML 10 ML VIAL 6 UNIT SUBCUT (22:07)
[2023-12-08] MEDS: levETIRAcetam 500 MG TABLET PO (22:07)
[2023-12-08] MEDS: Mirtazapine 30 MG TABLET PO (22:07)
[2023-12-08] MEDS: Magnesium Oxide 400 MG TABLET PO (22:07)
[2023-12-09] MEDS: vancomycin HCL Oral Solution 125 MG/5 ML SOLN.RECON PO ×4 (02:34→20:58)
--- NOTE | 2023-12-09 05:52 | PC.NURSE ---
on 12/07/23@0700 Ceftin 250mg PO was given but did not post, med was opened and crushed prior to entering c.diff precautions room, barcodes don't always read too well after bubble pac is opened
[2023-12-09 06:40] LABS: Glucose, Whole Blood 145 mg/dL (60-115)
[2023-12-09 08:30] VITALS: BP 134/63; PULSE 57; RESP 16; TEMP 36.1; O2SAT 94
[2023-12-09 09:18] VITALS: BP 134/63
[2023-12-09 09:59] LABS: MANUAL DIFF FLAG NO
[2023-12-09 10:00] LABS: Basophils Percent Auto 0.7 % (0-2); Eosinophils Percent Auto 1.4 % (0-4); Hematocrit 32.1 % (37.0-47.0); Hemoglobin 10.1 g/dl (12.0-16.0); Lymphocytes Absolute Auto 0.8 X10*3/uL (1.2-4.9); Lymphocytes Percent Auto 29.1 % (20-40); Mean Corpuscular HGB Conc 31.5 g/dl (31.0-35.0); Mean Corpuscular Hemoglobin 27.4 pg (27.0-33.0); Mean Corpuscular Volume 87.2 fL (80.0-98.0); Mean Platelet Volume 9.6 fL (9.4-12.3); Monocytes Absolute Auto 0.4 X10*3/uL (0.1-1.2); Monocytes Percent Auto 12.4 % (2-11); Neutrophils Absolute Auto 1.6 x10*3/uL (2.0-8.3); Neutrophils Percent Auto 56.4 % (45-73); Platelet Count 86 X10*3/uL (160-400); Red Blood Count 3.68 X10*6/uL (4.20-5.50); Red Cell Distribution Width 14.4 % (11.0-16.0); White Blood Count 2.8 X10*3/uL (4.8-10.8)
[2023-12-09 10:26] LABS: Alanine Aminotransferase 16 U/L (0-31); Albumin Level 3.3 g/dL (3.5-5.0); Alkaline Phosphatase 96 U/L (39-117); Anion Gap 12 (12-20); Aspartate Amino Transferase 30 U/L (5-31); Bilirubin Direct 0.2 mg/dL (0.0-0.5); Bilirubin Total 0.4 mg/dL (0.0-1.0); Blood Urea Nitrogen 30 mg/dL (9-16); Calcium 10.4 mg/dL (8.4-10.2); Carbon Dioxide 30 mmol/L (22-29); Chloride 103 mmol/L (96-108); Creatinine Clr Calc Pharmacy 33.4; Estimated Glomerular Filt Rate 55; Glucose Random 279 mg/dL (60-115); Potassium 4.7 mmol/L (3.3-5.1); Sodium 140 mmol/L (135-145); Total Protein 8.4 g/dL (6.5-8.0)
[2023-12-09 11:40] LABS: Glucose, Whole Blood 201 mg/dL (60-115)
[2023-12-09] MEDS: Insulin Lispro 100 UNIT/ML 3 ML VIAL SUBCUT ×2 (11:42→21:09)
--- NOTE | 2023-12-09 13:13 | HO.PSYCHPN ---
Subjective Subjective Date of Service: 12/09/23 Reason For Visit: Major depressive disorder, severe, recurrent Subjective Notes: Conditional Voluntary (By healthcare proxy) Healthcare Proxy: Yes Interim History: The nursing staff reported the patient had declined all her medications and meals she had poor output of her Arango. I ordered today in the morning EKG and clearance for ECT. On interview the patient was electively mute very depressed. Mental Status Exam Mental Status Exam Patient Appearance: Appropriate and Unkempt Patient Orientation: Person Level of Consciousness: Awake Patient Behavior: Guarded and Passive Mood Description: Withdrawn Affect Description: Blunted Patient Cognition Impaired: Yes Ability to Follow Directions: Good Speech Pattern: Clear Hallucinations: None Delusions: Ideas of Reference Thought Process: Distracted and Slowed Thinking Thought Content: positive for [place] and positive for Poverty of Content Judgement: Poor Diagnostics Vital Signs (24Hr): Vital Signs - 24 hr 12/08/23 20:00 12/09/23 08:30 12/09/23 09:18 Temperature 97.8 F 96.9 F Pulse Rate 62 57 Respiratory Rate 18 16 Blood Pressure 124/60 134/63 134/63 Pulse Oximetry 95 94 Oxygen Delivery Method Room Air BMI result Body Mass Index 20.1 Labs 12/09/23 09:57 12/09/23 09:57 Labs: Laboratory Results - last 48 hr 12/07/23 12/07/23 12/08/23 16:11 19:32 06:23 WBC RBC Hgb Hct MCV MCH MCHC RDW Plt Count MPV Immature Gran % (Auto) Neut % (Auto) Lymph % (Auto) [place]pson % (Auto) Eos % (Auto) Baso % (Auto) Lymph # (Auto) [place]pson # (Auto) Eos # (Auto) Baso # (Auto) Abs Immat Gran (auto) Absolute Neuts (auto) Absolute Nucleated RBC Nucleated RBC % (auto) Sodium Potassium Chloride Carbon Dioxide Anion Gap BUN Creatinine Estim Creat Clear Calc Estimated GFR POC Glucose 154 H 225 H 150 H Random Glucose Calcium Total Bilirubin Direct Bilirubin AST ALT Alkaline Phosphatase Total Protein Albumin 12/08/23 12/08/23 12/08/23 11:15 16:29 19:07 WBC 3.3 L RBC 3.73 L Hgb 10.3 L Hct 32.0 L MCV 85.8 MCH 27.6 MCHC 32.2 RDW 14.2 Plt Count 99 L MPV 10.0 Immature Gran % (Auto) 0.3 Neut % (Auto) 53.2 Lymph % (Auto) 29.7 Upson % (Auto) 15.3 H Eos % (Auto) 1.2 Baso % (Auto) 0.3 Lymph # (Auto) 1.0 L Upson # (Auto) 0.5 Eos # (Auto) 0.0 Baso # (Auto) 0.0 Abs Immat Gran (auto) 0.01 Absolute Neuts (auto) 1.8 L Absolute Nucleated RBC 0.000 Nucleated RBC % (auto) 0.0 Sodium 142 Potassium 4.2 Chloride 104 Carbon Dioxide 30 H Anion Gap 12 BUN 27 H Creatinine 0.82 Estim Creat Clear Calc 40.4 Estimated GFR > 60 POC Glucose 171 H 131 H Random Glucose 114 Calcium 10.5 H Total Bilirubin 0.6 Direct Bilirubin AST 25 ALT 14 Alkaline Phosphatase 90 Total Protein 8.6 H Albumin 3.4 L 12/08/23 12/09/23 12/09/23 20:11 06:32 09:57 WBC 2.8 L RBC 3.68 L Hgb 10.1 L Hct 32.1 L MCV 87.2 MCH 27.4 MCHC 31.5 RDW 14.4 Plt Count 86 L MPV 9.6 Immature Gran % (Auto) 0.0 Neut % (Auto) 56.4 Lymph % (Auto) 29.1 Upson % (Auto) 12.4 H Eos % (Auto) 1.4 Baso % (Auto) 0.7 Lymph # (Auto) 0.8 L Upson # (Auto) 0.4 Eos # (Auto) 0.0 Baso # (Auto) 0.0 Abs Immat Gran (auto) 0.00 Absolute Neuts (auto) 1.6 L Absolute Nucleated RBC 0.000 Nucleated RBC % (auto) 0.0 Sodium 140 Potassium 4.7 Chloride 103 Carbon Dioxide 30 H Anion Gap 12 BUN 30 H Creatinine 0.99 Estim Creat Clear Calc 33.4 Estimated GFR 55 POC Glucose 116 H 145 H Random Glucose 279 H Calcium 10.4 H Total Bilirubin 0.4 Direct Bilirubin 0.2 AST 30 ALT 16 Alkaline Phosphatase 96 Total Protein 8.4 H Albumin 3.3 L 12/09/23 11:34 WBC RBC Hgb Hct MCV MCH MCHC RDW Plt Count MPV Immature Gran % (Auto) Neut % (Auto) Lymph % (Auto) Upson % (Auto) Eos % (Auto) Baso % (Auto) Lymph # (Auto) [place]pson # (Auto) Eos # (Auto) Baso # (Auto) Abs Immat Gran (auto) Absolute Neuts (auto) Absolute Nucleated RBC Nucleated RBC % (auto) Sodium Potassium Chloride Carbon Dioxide Anion Gap BUN Creatinine Estim Creat Clear Calc Estimated GFR POC Glucose 201 H Random Glucose Calcium Total Bilirubin Direct Bilirubin AST ALT Alkaline Phosphatase Total Protein Albumin Imaging Radiology Impressions: ITS Impressions Chest X-Ray 12/03/23 12:20 IMPRESSION: 1. Chronic interstitial prominence without focal consolidative airspace opacity. 2. Densities along the left lower chest which may represent pleural calcifications versus soft tissue calcifications. Correlation with lateral radiograph could help further evaluate. Electronically signed by: Viral Smallwood MD 12/03/2023 01:33 PM EDT RP Head CT 12/03/23 13:17 IMPRESSION: 1. No acute intracranial abnormalities. No intracranial hemorrhage or mass effect. 2. Moderate small vessel ischemic changes in the hemispheric white matter. 3. 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 4. Age advanced cerebral and cerebellar involutional changes with prominent ventricles. Cannot definitively exclude a component of communicating hydrocephalus given the appearance. Medications Medications Current Medications Acetaminophen (Acetaminophen 325 Mg Tablet) 650 mg PO Q6H PRN PRN Reason: Headache/Pain Mild Scale (1-3) Al Hydroxide/Mg Hydroxide (Magnesium Hydrox/Alum Hydrox 30 Ml Oral.Susp) 30 ml PO Q6H PRN PRN Reason: Heartburn/Nausea Amlodipine Besylate (Amlodipine Besylate 5 Mg Tablet) 5 mg PO DAILY [facility]; Protocol Last Admin: 12/09/23 09:17 Dose: Not Given Anastrozole (Anastrozole 1 Mg Tablet) 1 mg PO DAILY [facility] Last Admin: 12/09/23 09:17 Dose: Not Given Aspirin (Aspirin 81 Mg Tab.Chew) 81 mg PO DAILY [facility] Last Admin: 12/09/23 09:17 Dose: Not Given Atorvastatin Calcium (Atorvastatin Calcium 10 Mg Tablet) 10 mg PO BEDTIME [facility] Last Admin: 12/08/23 22:06 Dose: 10 mg Cefuroxime Axetil (Cefuroxime Axetil 250 Mg Tablet) 250 mg PO Q12H [facility] Last Admin: 12/09/23 09:16 Dose: Not Given Divalproex Sodium (Divalproex Sodium 500 Mg Tablet.) 500 mg PO BEDTIME [facility] Last Admin: 12/08/23 22:06 Dose: 500 mg Ferrous Sulfate (Ferrous Sulfate 324 Mg Tablet.) 324 mg PO DAILY [facility] Last Admin: 12/09/23 09:18 Dose: Not Given Furosemide (Furosemide 20 Mg Tablet) 20 mg PO DAILY [facility]; Protocol Last Admin: 12/09/23 09:18 Dose: Not Given Glucose (Glucose Gel 15 Gm Gel..Gram.) 15 gm PO Q15M PRN; Protocol PRN Reason: per Hypoglycemia Standing Ord. Dextrose (D10) 250 mls @ 750 mls/hr IV Q15M PRN; Protocol PRN Reason: per Hypoglycemia Standing Ord. Insulin Glargine (Insulin Glargine,Hum.Rec.Anlog 100 Unit/Ml 10 Ml Vial) 6 unit SUBCUT BEDTIME [facility] Last Admin: 12/08/23 22:07 Dose: 6 unit Insulin Human Lispro (Insulin Lispro 100 Unit/Ml 3 Ml Vial) 0 unit SUBCUT QIDACHS [facility]; Protocol Last Admin: 12/09/23 11:42 Dose: 4 unit Levetiracetam (Levetiracetam 500 Mg Tablet) 500 mg PO BID [facility] Last Admin: 12/09/23 09:18 Dose: Not Given Loratadine (Loratadine 10 Mg Tablet) 10 mg PO BEDTIME [facility] Last Admin: 12/08/23 22:06 Dose: 10 mg Losartan Potassium (Losartan Potassium 50 Mg Tablet) 100 mg PO DAILY [facility]; Protocol Last Admin: 12/09/23 09:18 Dose: Not Given Magnesium Hydroxide (Milk Of Magnesia 30 Ml Oral.Susp) 30 ml PO DAILY PRN PRN Reason: Constipation Magnesium Oxide (Magnesium Oxide 400 Mg Tablet) 400 mg PO BID [facility] Last Admin: 12/09/23 09:18 Dose: Not Given Mirtazapine (Mirtazapine 30 Mg Tablet) 30 mg PO BEDTIME [facility] Last Admin: 12/08/23 22:07 Dose: 30 mg Multivitamins/Vitamin C (Multivitamin Tablet) 1 tab PO DAILY [facility] Last Admin: 12/09/23 09:18 Dose: Not Given Nicotine Polacrilex (Nicotine Polacrilex 2 Mg Gum) 4 mg BUCCAL Q2H PRN PRN Reason: Nicotine Cravings Omeprazole (Omeprazole 20 Mg Capsule.) 20 mg PO DAILY@0630 [facility] Last Admin: 12/09/23 09:16 Dose: Not Given Risperidone (Risperidone 0.5 Mg Tablet) 0.5 mg PO BID PRN PRN Reason: Restlessness Thiamine HCl (Thiamine Hcl 100 Mg Tablet) 100 mg PO DAILY [facility] Last Admin: 12/09/23 09:19 Dose: Not Given Trazodone HCl (Trazodone Hcl 50 Mg Tablet) 50 mg PO BEDTIME PRN PRN Reason: Insomnia Last Admin: 12/08/23 22:06 Dose: 50 mg Vancomycin HCl (Vancomycin Hcl Oral Solution 125 Mg/5 Ml Soln.Recon) 125 mg PO Q6H [facility] Last Admin: 12/09/23 08:52 Dose: 125 mg Allergies Allergies Allergy/AdvReac Type Severity Reaction Status Date / Time atropine Allergy Unknown Shortness Verified 12/02/23 23:30 of Breath enoxaparin [From Lovenox] Allergy Unknown Unknown Verified 12/02/23 23:30 penicillin V Allergy Unknown Unknown Verified 03/19/23 07:30 pseudoephedrine [Aprodine] Allergy Unknown Unknown Verified 03/19/23 07:30 triprolidine [Aprodine] Allergy Unknown Unknown Verified 03/19/23 07:30 Assessment & Plan Assessment & Plan (1) Major depressive disorder with psychotic features: Status: Acute Code(s): F32.3 - Major depressive disorder, single episode, severe with psychotic features Assessment and Plan: Catatonic stopping eating, meds, fluids- may need ECT will need review will order labs (2) Dark stools: Status: Acute Code(s): R19.5 - Other fecal abnormalities (3) Essential hypertension: Status: Acute Code(s): I10 - Essential (primary) hypertension (4) Type 2 diabetes mellitus with unspecified complications: Status: Acute Code(s): E11.8 - Type 2 diabetes mellitus with unspecified complications (5) Aortic valve sclerosis: Status: Acute Code(s): I35.8 - Other nonrheumatic aortic valve disorders (6) CKD (chronic kidney disease) stage 3, GFR 30-59 ml/min: Status: Acute Code(s): N18.30 - Chronic kidney disease, stage 3 unspecified (7) HTN (hypertension): Status: Acute Code(s): I10 - Essential (primary) hypertension (8) T2DM (type 2 diabetes mellitus): Status: Acute Code(s): E11.9 - Type 2 diabetes mellitus without complications Plan 73-year-old female with history of insulin-dependent type 2 diabetes, hypertension, hyperlipidemia, history of C diff colitis, hypothyroidism, heart failure preserved ejection fraction, cirrhosis admitted to [facility] for catatonia with consult placed to hospitalist service for medical H&P. #Catatonia/neurocogitive disorder -r/o infectious causes of delerium -UA with slight bacteria at [facility], but no UC sent. Check UA w/ relfex UC. Treat as appropriate -Check CXR -COVID negative -check ammonia level -tsh/free t4 snl -Head CT ordered -If medical causes of delerium are ruled out and clinical presentation remains the same, psychiatry considering ECT. Apparently has undergone ECT in the past but prior notes are not available. No hx seizures or known CAD. Does have history of CHF, but no exacerbation. Revised cardiac risk index score 1, Class II risk. At this time no medical contraindication exists that should preclude patient from undergoing ECT. Recommend appropriate anesthesia precautions #Urinary retention -continue arango, please place urology consult # fecal incontinence with RN reported dark tarry stool -does take ferrous sulfate -check stool occult blood and H/H -check GI panel and C diff PCR given history #Stage 2 decubitus ulcer coccyx -wound RN consult # insulin-dependent type 2 diabetes -continue basal insulin, Humalog on sliding scale -POC glucose. Recommend diabetic diet # heart failure preserved ejection fraction -no acute exacerbation, continue p.o. diuretics # hypertension -continue losartan, amlodipine. 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 Gather collateral information. 2. Continue with Depakote another antiseizure medications. 3. Continue with Remeron as an antidepressant. 4. Referral for ECT. 5. Continue on 15 minutes checks. 6. Continue with treatment for C diff Reason for continued inpatient stay Substantial Risk for: inability to function, rapid decompensation and med/psych decompensation Time Spent With Patient Time: Total time managing care of this patient today __20__ minutes.
[2023-12-09 16:33] LABS: Glucose, Whole Blood 143 mg/dL (60-115)
[2023-12-09 20:00] VITALS: BP 140/65; PULSE 65; RESP 16; TEMP 36.1; O2SAT 96
[2023-12-09 20:04] LABS: Glucose, Whole Blood 205 mg/dL (60-115)
[2023-12-09] MEDS: Divalproex Sodium 500 MG TABLET.DR PO (20:58)
[2023-12-09] MEDS: Mirtazapine 30 MG TABLET PO (20:58)
[2023-12-09] MEDS: Magnesium Oxide 400 MG TABLET PO (20:58)
[2023-12-09] MEDS: levETIRAcetam 500 MG TABLET PO (20:58)
[2023-12-09] MEDS: Loratadine 10 MG TABLET PO (20:58)
[2023-12-09] MEDS: cefuroxime axetiL 250 MG TABLET PO (20:58)
[2023-12-09] MEDS: Atorvastatin Calcium 10 MG TABLET PO (20:58)
[2023-12-09] MEDS: Insulin Glargine,Hum.rec.anlog 100 UNIT/ML 10 ML VIAL 6 UNIT SUBCUT (21:10)
[2023-12-10] MEDS: vancomycin HCL Oral Solution 125 MG/5 ML SOLN.RECON PO ×2 (01:18→21:06)
[2023-12-10] MEDS: Omeprazole 20 MG CAPSULE.DR PO (06:19)
[2023-12-10 06:30] LABS: Glucose, Whole Blood 124 mg/dL (60-115)
[2023-12-10 08:30] VITALS: BP 123/57; PULSE 60; RESP 15; TEMP 36.6; O2SAT 97
[2023-12-10 09:10] LABS: Glucose, Whole Blood 146 mg/dL (60-115)
--- NOTE | 2023-12-10 12:06 | HO.PSYCHPN ---
Subjective Subjective Date of Service: 12/10/23 Reason For Visit: Major depressive disorder, severe, recurrent Subjective Notes: Conditional Voluntary Healthcare Proxy: Yes Interim History: The nursing staff reported the patient had been hypoactive, p.o. fluids were encouraged she refused her medications she has been quiet, paranoid fearful. We tried to contact her healthcare proxy to start ECT. We discussed yesterday with Anesthesiology and most likely we can do it at PACU since the patient has C diff. On interview the patient is hypoactive poor eye contact. She is catatonic at this point Mental Status Exam Mental Status Exam Patient Appearance: Unkempt Patient Orientation: Person Level of Consciousness: Awake Patient Behavior: Guarded and Passive Mood Description: Withdrawn Affect Description: Blunted Patient Cognition Impaired: Yes Ability to Follow Directions: Fair Speech Pattern: Impoverished Hallucinations: None Delusions: Paranoid Ideation Thought Process: Distracted and Evasive Thought Content: positive for Poverty of Content and positive for Thought Blocking Judgement: Poor Diagnostics Vital Signs (24Hr): Vital Signs - 24 hr 12/09/23 20:00 12/10/23 08:30 Temperature 97 F 97.8 F Pulse Rate 65 60 Respiratory Rate 16 15 Blood Pressure 140/65 H 123/57 L Pulse Oximetry 96 97 Oxygen Delivery Method Room Air Room Air BMI result Body Mass Index 20.1 Labs 12/09/23 09:57 12/09/23 09:57 Labs: Laboratory Results - last 48 hr 12/08/23 12/08/23 12/08/23 16:29 19:07 20:11 WBC 3.3 L RBC 3.73 L Hgb 10.3 L Hct 32.0 L MCV 85.8 MCH 27.6 MCHC 32.2 RDW 14.2 Plt Count 99 L MPV 10.0 Immature Gran % (Auto) 0.3 Neut % (Auto) 53.2 Lymph % (Auto) 29.7 [place] % (Auto) 15.3 H Eos % (Auto) 1.2 Baso % (Auto) 0.3 Lymph # (Auto) 1.0 L [place] # (Auto) 0.5 Eos # (Auto) 0.0 Baso # (Auto) 0.0 Abs Immat Gran (auto) 0.01 Absolute Neuts (auto) 1.8 L Absolute Nucleated RBC 0.000 Nucleated RBC % (auto) 0.0 Sodium 142 Potassium 4.2 Chloride 104 Carbon Dioxide 30 H Anion Gap 12 BUN 27 H Creatinine 0.82 Estim Creat Clear Calc 40.4 Estimated GFR > 60 POC Glucose 131 H 116 H Random Glucose 114 Calcium 10.5 H Total Bilirubin 0.6 Direct Bilirubin AST 25 ALT 14 Alkaline Phosphatase 90 Total Protein 8.6 H Albumin 3.4 L 12/09/23 12/09/23 12/09/23 06:32 09:57 11:34 WBC 2.8 L RBC 3.68 L Hgb 10.1 L Hct 32.1 L MCV 87.2 MCH 27.4 MCHC 31.5 RDW 14.4 Plt Count 86 L MPV 9.6 Immature Gran % (Auto) 0.0 Neut % (Auto) 56.4 Lymph % (Auto) 29.1 [place] % (Auto) 12.4 H Eos % (Auto) 1.4 Baso % (Auto) 0.7 Lymph # (Auto) 0.8 L [place] # (Auto) 0.4 Eos # (Auto) 0.0 Baso # (Auto) 0.0 Abs Immat Gran (auto) 0.00 Absolute Neuts (auto) 1.6 L Absolute Nucleated RBC 0.000 Nucleated RBC % (auto) 0.0 Sodium 140 Potassium 4.7 Chloride 103 Carbon Dioxide 30 H Anion Gap 12 BUN 30 H Creatinine 0.99 Estim Creat Clear Calc 33.4 Estimated GFR 55 POC Glucose 145 H 201 H Random Glucose 279 H Calcium 10.4 H Total Bilirubin 0.4 Direct Bilirubin 0.2 AST 30 ALT 16 Alkaline Phosphatase 96 Total Protein 8.4 H Albumin 3.3 L 12/09/23 12/09/23 12/10/23 16:28 19:52 06:12 WBC RBC Hgb Hct MCV MCH MCHC RDW Plt Count MPV Immature Gran % (Auto) Neut % (Auto) Lymph % (Auto) [place] % (Auto) Eos % (Auto) Baso % (Auto) Lymph # (Auto) [place] # (Auto) Eos # (Auto) Baso # (Auto) Abs Immat Gran (auto) Absolute Neuts (auto) Absolute Nucleated RBC Nucleated RBC % (auto) Sodium Potassium Chloride Carbon Dioxide Anion Gap BUN Creatinine Estim Creat Clear Calc Estimated GFR POC Glucose 143 H 205 H 124 H Random Glucose Calcium Total Bilirubin Direct Bilirubin AST ALT Alkaline Phosphatase Total Protein Albumin 12/10/23 08:25 WBC RBC Hgb Hct MCV MCH MCHC RDW Plt Count MPV Immature Gran % (Auto) Neut % (Auto) Lymph % (Auto) [place] % (Auto) Eos % (Auto) Baso % (Auto) Lymph # (Auto) [place] # (Auto) Eos # (Auto) Baso # (Auto) Abs Immat Gran (auto) Absolute Neuts (auto) Absolute Nucleated RBC Nucleated RBC % (auto) Sodium Potassium Chloride Carbon Dioxide Anion Gap BUN Creatinine Estim Creat Clear Calc Estimated GFR POC Glucose 146 H Random Glucose Calcium Total Bilirubin Direct Bilirubin AST ALT Alkaline Phosphatase Total Protein Albumin Imaging Radiology Impressions: ITS Impressions Chest X-Ray 12/03/23 12:20 IMPRESSION: 1. Chronic interstitial prominence without focal consolidative airspace opacity. 2. Densities along the left lower chest which may represent pleural calcifications versus soft tissue calcifications. Correlation with lateral radiograph could help further evaluate. Electronically signed by: Viral Smallwood MD 12/03/2023 01:33 PM EDT RP Head CT 12/03/23 13:17 IMPRESSION: 1. No acute intracranial abnormalities. No intracranial hemorrhage or mass effect. 2. Moderate small vessel ischemic changes in the hemispheric white matter. 3. 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 4. Age advanced cerebral and cerebellar involutional changes with prominent ventricles. Cannot definitively exclude a component of communicating hydrocephalus given the appearance. Medications Medications Current Medications Acetaminophen (Acetaminophen 325 Mg Tablet) 650 mg PO Q6H PRN PRN Reason: Headache/Pain Mild Scale (1-3) Al Hydroxide/Mg Hydroxide (Magnesium Hydrox/Alum Hydrox 30 Ml Oral.Susp) 30 ml PO Q6H PRN PRN Reason: Heartburn/Nausea Amlodipine Besylate (Amlodipine Besylate 5 Mg Tablet) 5 mg PO DAILY [facility]; Protocol Last Admin: 12/10/23 10:12 Dose: Not Given Anastrozole (Anastrozole 1 Mg Tablet) 1 mg PO DAILY [facility] Last Admin: 12/10/23 10:12 Dose: Not Given Aspirin (Aspirin 81 Mg Tab.Chew) 81 mg PO DAILY [facility] Last Admin: 12/10/23 10:12 Dose: Not Given Atorvastatin Calcium (Atorvastatin Calcium 10 Mg Tablet) 10 mg PO BEDTIME [facility] Last Admin: 12/09/23 20:58 Dose: 10 mg Cefuroxime Axetil (Cefuroxime Axetil 250 Mg Tablet) 250 mg PO Q12H [facility] Last Admin: 12/10/23 10:12 Dose: Not Given Divalproex Sodium (Divalproex Sodium 500 Mg Tablet.) 500 mg PO BEDTIME [facility] Last Admin: 12/09/23 20:58 Dose: 500 mg Ferrous Sulfate (Ferrous Sulfate 324 Mg Tablet.) 324 mg PO DAILY [facility] Last Admin: 12/10/23 10:13 Dose: Not Given Furosemide (Furosemide 20 Mg Tablet) 20 mg PO DAILY [facility]; Protocol Last Admin: 12/10/23 10:13 Dose: Not Given Glucose (Glucose Gel 15 Gm Gel..Gram.) 15 gm PO Q15M PRN; Protocol PRN Reason: per Hypoglycemia Standing Ord. Dextrose (D10) 250 mls @ 750 mls/hr IV Q15M PRN; Protocol PRN Reason: per Hypoglycemia Standing Ord. Insulin Glargine (Insulin Glargine,Hum.Rec.Anlog 100 Unit/Ml 10 Ml Vial) 6 unit SUBCUT BEDTIME [facility] Last Admin: 12/09/23 21:10 Dose: 6 unit Insulin Human Lispro (Insulin Lispro 100 Unit/Ml 3 Ml Vial) 0 unit SUBCUT QIDACHS [facility]; Protocol Last Admin: 12/10/23 11:58 Dose: Not Given Levetiracetam (Levetiracetam 500 Mg Tablet) 500 mg PO BID [facility] Last Admin: 12/10/23 10:13 Dose: Not Given Loratadine (Loratadine 10 Mg Tablet) 10 mg PO BEDTIME [facility] Last Admin: 12/09/23 20:58 Dose: 10 mg Losartan Potassium (Losartan Potassium 50 Mg Tablet) 100 mg PO DAILY [facility]; Protocol Last Admin: 12/10/23 10:13 Dose: Not Given Magnesium Hydroxide (Milk Of Magnesia 30 Ml Oral.Susp) 30 ml PO DAILY PRN PRN Reason: Constipation Magnesium Oxide (Magnesium Oxide 400 Mg Tablet) 400 mg PO BID [facility] Last Admin: 12/10/23 10:13 Dose: Not Given Mirtazapine (Mirtazapine 30 Mg Tablet) 30 mg PO BEDTIME [facility] Last Admin: 12/09/23 20:58 Dose: 30 mg Multivitamins/Vitamin C (Multivitamin Tablet) 1 tab PO DAILY [facility] Last Admin: 12/10/23 10:13 Dose: Not Given Nicotine Polacrilex (Nicotine Polacrilex 2 Mg Gum) 4 mg BUCCAL Q2H PRN PRN Reason: Nicotine Cravings Omeprazole (Omeprazole 20 Mg Capsule.Dr) 20 mg PO DAILY@0630 [facility] Last Admin: 12/10/23 06:19 Dose: 20 mg Risperidone (Risperidone 0.5 Mg Tablet) 0.5 mg PO BID PRN PRN Reason: Restlessness Thiamine HCl (Thiamine Hcl 100 Mg Tablet) 100 mg PO DAILY [facility] Last Admin: 12/10/23 10:13 Dose: Not Given Trazodone HCl (Trazodone Hcl 50 Mg Tablet) 50 mg PO BEDTIME PRN PRN Reason: Insomnia Last Admin: 12/08/23 22:06 Dose: 50 mg Vancomycin HCl (Vancomycin Hcl Oral Solution 125 Mg/5 Ml Soln.Recon) 125 mg PO Q6H [facility] Last Admin: 12/10/23 10:12 Dose: Not Given Allergies Allergies Allergy/AdvReac Type Severity Reaction Status Date / Time atropine Allergy Unknown Shortness Verified 12/02/23 23:30 of Breath enoxaparin [From Lovenox] Allergy Unknown Unknown Verified 12/02/23 23:30 penicillin V Allergy Unknown Unknown Verified 03/19/23 07:30 pseudoephedrine [Aprodine] Allergy Unknown Unknown Verified 03/19/23 07:30 triprolidine [Aprodine] Allergy Unknown Unknown Verified 03/19/23 07:30 Assessment & Plan Assessment & Plan (1) Major depressive disorder with psychotic features: Status: Acute Code(s): F32.3 - Major depressive disorder, single episode, severe with psychotic features (2) Dark stools: Status: Acute Code(s): R19.5 - Other fecal abnormalities (3) Essential hypertension: Status: Acute Code(s): I10 - Essential (primary) hypertension (4) Type 2 diabetes mellitus with unspecified complications: Status: Acute Code(s): E11.8 - Type 2 diabetes mellitus with unspecified complications (5) Aortic valve sclerosis: Status: Acute Code(s): I35.8 - Other nonrheumatic aortic valve disorders (6) CKD (chronic kidney disease) stage 3, GFR 30-59 ml/min: Status: Acute Code(s): N18.30 - Chronic kidney disease, stage 3 unspecified (7) HTN (hypertension): Status: Acute Code(s): I10 - Essential (primary) hypertension (8) T2DM (type 2 diabetes mellitus): Status: Acute Code(s): E11.9 - Type 2 diabetes mellitus without complications Plan 73-year-old female with history of insulin-dependent type 2 diabetes, hypertension, hyperlipidemia, history of C diff colitis, hypothyroidism, heart failure preserved ejection fraction, cirrhosis admitted to [facility] for catatonia with consult placed to hospitalist service for medical H&P. #Catatonia/neurocogitive disorder -r/o infectious causes of delerium -UA with slight bacteria at [facility], but no UC sent. Check UA w/ relfex UC. Treat as appropriate -Check CXR -COVID negative -check ammonia level -tsh/free t4 snl -Head CT ordered -If medical causes of delerium are ruled out and clinical presentation remains the same, psychiatry considering ECT. Apparently has undergone ECT in the past but prior notes are not available. No hx seizures or known CAD. Does have history of CHF, but no exacerbation. Revised cardiac risk index score 1, Class II risk. At this time no medical contraindication exists that should preclude patient from undergoing ECT. Recommend appropriate anesthesia precautions #Urinary retention -continue arango, please place urology consult # fecal incontinence with RN reported dark tarry stool -does take ferrous sulfate -check stool occult blood and H/H -check GI panel and C diff PCR given history #Stage 2 decubitus ulcer coccyx -wound RN consult # insulin-dependent type 2 diabetes -continue basal insulin, Humalog on sliding scale -POC glucose. Recommend diabetic diet # heart failure preserved ejection fraction -no acute exacerbation, continue p.o. diuretics # hypertension -continue losartan, amlodipine. 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 Gather collateral information. 2. Continue with Depakote another antiseizure medications. 3. Continue with Remeron as an antidepressant. 4. Referral for ECT. 5. Continue on 15 minutes checks. 6. We will try to gather collateral information from previous ECT. Reason for continued inpatient stay Substantial Risk for: inability to function, rapid decompensation and med/psych decompensation Time Spent With Patient Time: Total time managing care of this patient today __20__ minutes.
[2023-12-10 12:07] LABS: Glucose, Whole Blood 185 mg/dL (60-115)
[2023-12-10 16:47] LABS: Glucose, Whole Blood 164 mg/dL (60-115)
--- NOTE | 2023-12-10 17:09 | HO.ECTCONS_ITS ---
History of Present Illness Data of Consult Service Date: 12/10/23 Requesting physician: Zander Yung Primary Care Provider: Kim Gates MD [facility] Reason for consult: ect risk stratification 73-year-old female with history of insulin-dependent type 2 diabetes, hypertension, hyperlipidemia, history of C diff colitis, hypothyroidism, , heart failure preserved ejection fraction, cirrhosis admitted to [facility] Psych[facility]ry for catatonia with consult placed to hospitalist service for ect risk stratification. Initially seen for medical H&P in consult and patient catatonic. She remains catatonic and will not look at provider with verbal and tactile stimulus. She is awake, but nonverbal. She has undergone ECT in the past without adverse effect. She does take keppra but has no documented history of seizure disorder [place] [facility] [place] [facility] [place]. No known history of CAD, asthma/.COPD. Does have BASIL but not on cpap. Has CHF but clinically euvolemic. Vitals are stable. EKG ordered, not yet performed. Unable to assess ROS. Review of Systems 2 Review of Systems: Yes Unobtainable due to mental status [facility] Medical History Cirrhosis Hypothyroidism Breast cancer Hx of Clostridium difficile infection (HFpEF) heart failure with preserved ejection fraction Murmur CKD (chronic kidney disease) stage 3, GFR 30-59 ml/min Vitamin D deficiency HLD (hyperlipidemia) HTN (hypertension) T2DM (type 2 diabetes mellitus) Family History Father Alzheimer disease Stroke Mother Breast cancer Surgical History Hx of cataract surgery History of lumpectomy of right breast History of mastectomy Social History Household Members: Family Household Members Other:: son Alcohol intake: never Patient Tobacco Use Status: Never used Tobacco Use of substances other than those prescribed or required for medical reasons: Unable to respond Last Used Substance Other:: unknown, unable to respond, she is nonsensical and delusional when she does Currently Displaying Signs/Symptoms of Drug Intoxication Withdrawal: No Other Past Substance Use Problem:: unknown, unable to respond, she is nonsensical and delusional when she does Spiritual Healthcare Practices: unknown, unable to respond, she is nonsensical and delusional when she does respond [facility] Practices: unknown, unable to respond, she is nonsensical and delusional when she does respond Cultural Healthcare Practices: unknown, unable to respond, she is nonsensical and delusional when she does respond Advance Directives: No Advance Directives Information Provided: No Do you have thoughts of harming others: None Do you have a plan to hurt others: No Plan Recently lost weight without trying: Unsure Patient : No : No Poor oral hygiene: No service: No Sexual orientation: Straight/Heterosexual Meds Allergies Allergy/AdvReac Type Severity Reaction Status Date / Time atropine Allergy Unknown Shortness Verified 12/02/23 23:30 of Breath enoxaparin [From Lovenox] Allergy Unknown Unknown Verified 12/02/23 23:30 penicillin V Allergy Unknown Unknown Verified 03/19/23 07:30 pseudoephedrine [Aprodine] Allergy Unknown Unknown Verified 03/19/23 07:30 triprolidine [Aprodine] Allergy Unknown Unknown Verified 03/19/23 07:30 Active Medications: Current Medications Acetaminophen (Acetaminophen 325 Mg Tablet) 650 mg PO Q6H PRN PRN Reason: Headache/Pain Mild Scale (1-3) Al Hydroxide/Mg Hydroxide (Magnesium Hydrox/Alum Hydrox 30 Ml Oral.Susp) 30 ml PO Q6H PRN PRN Reason: Heartburn/Nausea Amlodipine Besylate (Amlodipine Besylate 5 Mg Tablet) 5 mg PO DAILY [facility]; Protocol Last Admin: 12/10/23 10:12 Dose: Not Given Anastrozole (Anastrozole 1 Mg Tablet) 1 mg PO DAILY [facility] Last Admin: 12/10/23 10:12 Dose: Not Given Aspirin (Aspirin 81 Mg Tab.Chew) 81 mg PO DAILY [facility] Last Admin: 12/10/23 10:12 Dose: Not Given Atorvastatin Calcium (Atorvastatin Calcium 10 Mg Tablet) 10 mg PO BEDTIME [facility] Last Admin: 12/09/23 20:58 Dose: 10 mg Cefuroxime Axetil (Cefuroxime Axetil 250 Mg Tablet) 250 mg PO Q12H [facility] Last Admin: 12/10/23 10:12 Dose: Not Given Divalproex Sodium (Divalproex Sodium 500 Mg Tablet.Dr) 500 mg PO BEDTIME [facility] Last Admin: 12/09/23 20:58 Dose: 500 mg Ferrous Sulfate (Ferrous Sulfate 324 Mg Tablet.) 324 mg PO DAILY [facility] Last Admin: 12/10/23 10:13 Dose: Not Given Furosemide (Furosemide 20 Mg Tablet) 20 mg PO DAILY [facility]; Protocol Last Admin: 12/10/23 10:13 Dose: Not Given Glucose (Glucose Gel 15 Gm Gel..Gram.) 15 gm PO Q15M PRN; Protocol PRN Reason: per Hypoglycemia Standing Ord. Dextrose (D10) 250 mls @ 750 mls/hr IV Q15M PRN; Protocol PRN Reason: per Hypoglycemia Standing Ord. Insulin Glargine (Insulin Glargine,Hum.Rec.Anlog 100 Unit/Ml 10 Ml Vial) 6 unit SUBCUT BEDTIME [facility] Last Admin: 12/09/23 21:10 Dose: 6 unit Insulin Human Lispro (Insulin Lispro 100 Unit/Ml 3 Ml Vial) 0 unit SUBCUT QIDACHS [facility]; Protocol Last Admin: 12/10/23 16:48 Dose: Not Given Levetiracetam (Levetiracetam 500 Mg Tablet) 500 mg PO BID [facility] Last Admin: 12/10/23 10:13 Dose: Not Given Loratadine (Loratadine 10 Mg Tablet) 10 mg PO BEDTIME [facility] Last Admin: 12/09/23 20:58 Dose: 10 mg Losartan Potassium (Losartan Potassium 50 Mg Tablet) 100 mg PO DAILY [facility]; Protocol Last Admin: 12/10/23 10:13 Dose: Not Given Magnesium Hydroxide (Milk Of Magnesia 30 Ml Oral.Susp) 30 ml PO DAILY PRN PRN Reason: Constipation Magnesium Oxide (Magnesium Oxide 400 Mg Tablet) 400 mg PO BID [facility] Last Admin: 12/10/23 10:13 Dose: Not Given Mirtazapine (Mirtazapine 30 Mg Tablet) 30 mg PO BEDTIME [facility] Last Admin: 12/09/23 20:58 Dose: 30 mg Multivitamins/Vitamin C (Multivitamin Tablet) 1 tab PO DAILY [facility] Last Admin: 12/10/23 10:13 Dose: Not Given Nicotine Polacrilex (Nicotine Polacrilex 2 Mg Gum) 4 mg BUCCAL Q2H PRN PRN Reason: Nicotine Cravings Omeprazole (Omeprazole 20 Mg Capsule.) 20 mg PO DAILY@0630 [facility] Last Admin: 12/10/23 06:19 Dose: 20 mg Risperidone (Risperidone 0.5 Mg Tablet) 0.5 mg PO BID PRN PRN Reason: Restlessness Thiamine HCl (Thiamine Hcl 100 Mg Tablet) 100 mg PO DAILY [facility] Last Admin: 12/10/23 10:13 Dose: Not Given Trazodone HCl (Trazodone Hcl 50 Mg Tablet) 50 mg PO BEDTIME PRN PRN Reason: Insomnia Last Admin: 12/08/23 22:06 Dose: 50 mg Vancomycin HCl (Vancomycin Hcl Oral Solution 125 Mg/5 Ml Soln.Recon) 125 mg PO Q6H [facility] Last Admin: 12/10/23 14:19 Dose: Not Given Home Medications ?Medication ?Instructions ?Recorded ?Confirmed ?Last Taken ?Type ascorbate calcium (vitamin C) 500 500 mg PO DAILY 03/24/20 11/20/22 Unknown History mg tablet fluoxetine 20 mg capsule 40 mg PO DAILY 03/24/20 11/20/22 Unknown History levothyroxine 100 mcg tablet 100 mcg PO QAM 03/24/20 11/20/22 Unknown History mirtazapine 30 mg tablet 30 mg PO BEDTIME 03/24/20 11/20/22 Unknown History omeprazole 20 mg capsule,delayed 20 mg PO DAILY 03/24/20 11/20/22 Unknown History release risperidone 1 mg tablet 1 mg PO BEDTIME 03/24/20 11/20/22 Unknown History insulin glargine 100 unit/mL (3 30 unit subcut BEDTIME 09/28/20 11/20/22 Unknown History mL) subcutaneous pen anastrozole 1 mg tablet 1 mg PO DAILY 02/16/21 11/20/22 Unknown History dapagliflozin propanediol 10 mg 10 mg PO QAM 05/08/21 11/20/22 Unknown History tablet (Farxiga) losartan 50 mg tablet 50 mg PO DAILY 09/14/21 11/20/22 Unknown History amlodipine 5 mg tablet 5 mg PO QAM 12/02/23 12/02/23 Unknown History anastrozole 1 mg tablet 1 mg PO DAILY 12/02/23 12/02/23 Unknown History aspirin 81 mg chewable tablet 1 tab PO QAM 12/02/23 12/02/23 Unknown History cetirizine 5 mg tablet 5 mg PO BEDTIME 12/02/23 12/02/23 Unknown History divalproex 500 mg tablet,delayed 500 mg PO BEDTIME 12/02/23 12/02/23 Unknown History release ferrous sulfate 325 mg (65 mg 325 mg PO QAM 12/02/23 12/02/23 Unknown History iron) tablet (FeroSul) furosemide 20 mg tablet (Lasix) 20 mg PO DAILY 12/02/23 12/02/23 Unknown History insulin glargine 100 unit/mL 6 unit subcut BEDTIME 12/02/23 12/02/23 Unknown History subcutaneous solution insulin lispro 100 unit/mL 1 sliding scale dose subcut 12/02/23 12/02/23 Unknown History subcutaneous solution USEASDIRECTD levetiracetam 500 mg tablet 500 mg PO BID 12/02/23 12/02/23 Unknown History losartan 100 mg tablet 100 mg PO DAILY 12/02/23 12/02/23 Unknown History losartan 100 mg tablet 100 mg PO DAILY 12/02/23 12/02/23 Unknown History magnesium oxide 400 mg PO BID 12/02/23 12/02/23 Unknown History mirtazapine 30 mg disintegrating 30 mg PO BEDTIME 12/02/23 12/02/23 Unknown History tablet multivitamin with minerals 1 tab PO DAILY 12/02/23 12/02/23 Unknown History pantoprazole 40 mg tablet,delayed 40 mg PO DAILY 12/02/23 12/02/23 Unknown History release risperidone 0.5 mg tablet 0.5 mg PO BID PRN Agitation 12/02/23 12/02/23 Unknown History risperidone 2 mg tablet 2 mg PO BID 12/02/23 12/02/23 Unknown History simvastatin 20 mg tablet 20 mg PO BEDTIME 12/02/23 12/02/23 Unknown History thiamine HCl (vitamin B1) 100 mg 100 mg PO QAM 12/02/23 12/02/23 Unknown History tablet trazodone 50 mg tablet 50 mg PO BEDTIME PRN insomnia 12/02/23 12/02/23 Unknown History vancomycin 125 mg capsule See Rx Instructions .Route .COMPLEX 12/02/23 12/02/23 Unknown History (Vancocin) Physical Exam 2 Vital Signs and Narrative: Vital Signs: Last Vital Signs Temp 97.8 F 12/10/23 08:30 Pulse 60 12/10/23 08:30 Resp 15 12/10/23 08:30 BP 123/57 L 12/10/23 08:30 Pulse Ox 97 12/10/23 08:30 O2 Del Method Room Air 12/10/23 08:30 BMI result Body Mass Index 20.1 Constitutional - Awake, No apparent distress Eyes - PERRLA, EOMI Cardiovascular - S1S2, RRR, No edema Respiratory - Normal lung expansion, Normal respiratory effort, No respiratory distress, CTA bilaterally Gastrointestinal - NT / ND; +BS; No rebound or guarding Extremities - no calf tenderness bilaterally, no swelling Skin - Warm/Dry Neurological - awake, nonverbal, not making eye contact iwth verbal or tactile stimulus. Pupils equal but pinpoint despite low light, unable to further evaluate CN. Upper and lower extremities equal in tone Psychological - Appropriate affect Results Labs 12/09/23 09:57 12/09/23 09:57 Labs: Laboratory Results - last 24 hr 12/09/23 12/10/23 12/10/23 19:52 06:12 08:25 POC Glucose 205 H 124 H 146 H 12/10/23 12/10/23 11:53 16:42 POC Glucose 185 H 164 H Assessment and Plan (1) Fixed constriction of pupil: Status: Acute (2) Catatonia: Status: Acute (3) Routine medical exam: Status: Acute Plan 73-year-old female with history of insulin-dependent type 2 diabetes, hypertension, hyperlipidemia, history of C diff colitis, hypothyroidism, heart failure preserved ejection fraction, cirrhosis admitted to Geriatric Psychiatry for catatonia with consult placed to hospitalist service for ect risk stratification. Pt with class II risk on revised cardiac risk index given history of CHF though is clinically euvolemic on exam. Lungs are clear. Has known but no murmurs heard on exam. Would recommend checking EKG to assess for ECT prolongation prior to ECT treatment. Unable to assess ROS. Based on RCRI and known history of ECT with good tolerance there does not appear to be any acute medical contraindication that should preclude patient from undergoing ect. Appropriate anesthesia precautions should be taken given known history of BASIL. Pt also noted to have equal but fixed pupils on exam which was not noted on initial H&P. She is catatonic and unable to participate in further CN exam or provide history. Did have Head CT on 12/02 negative for acute intracranial abnormalities which showed moderate small-vessel ischemic changes in hemispheric white matter numerous old lacunar infarcts as well as age advanced cerebral and cerebellar involutional changes with prominent ventricles. At this time, recommend repeating head CT and can consider Neurology evaluation at discretion of psychiatrist Will continue following for results
--- NOTE | 2023-12-10 17:18 | ECG_ITS ---
Test Reason : ECT TEST Blood Pressure : / mmHG Vent. Rate : 061 BPM Atrial Rate : 061 BPM P-R Int : 122 ms QRS Dur : 080 ms QT Int : 396 ms P-R-T Axes : 077 -04 064 degrees QTc Int : 398 ms Normal sinus rhythm Normal ECG No previous ECGs available Referred By: Estella Byrd Electronically Signed By:JW SPENCER
[2023-12-10 20:00] VITALS: BP 125/59; PULSE 59; RESP 16; TEMP 36.5; O2SAT 96
[2023-12-10 20:25] LABS: Glucose, Whole Blood 139 mg/dL (60-115)
[2023-12-10] MEDS: Atorvastatin Calcium 10 MG TABLET PO (21:07)
[2023-12-10] MEDS: cefuroxime axetiL 250 MG TABLET PO (21:07)
[2023-12-10] MEDS: Mirtazapine 30 MG TABLET PO (21:07)
[2023-12-10] MEDS: Magnesium Oxide 400 MG TABLET PO (21:07)
[2023-12-10] MEDS: Loratadine 10 MG TABLET PO (21:11)
[2023-12-11 05:58] VITALS: BP 120/59; PULSE 58; RESP 16; TEMP 36.5; O2SAT 98
[2023-12-11 06:04] LABS: Glucose, Whole Blood 151 mg/dL (60-115)
[2023-12-11 06:38] VITALS: BP 113/52; PULSE 55; RESP 16; TEMP 36.4; O2SAT 94
--- NOTE | 2023-12-11 06:48 | P.CONAN_ITS ---
[facility] Active Problems Active Problems: All Active Problems Catatonia (Acute) Fixed constriction of pupil (Acute) Major depressive disorder with psychotic features (Acute) Dark stools (Acute) Routine medical exam (Acute) Essential hypertension (Acute) Type 2 diabetes mellitus with unspecified complications (Acute) Aortic valve sclerosis (Acute) Murmur (Acute) CKD (chronic kidney disease) stage 3, GFR 30-59 ml/min (Acute) Vitamin D deficiency (Acute) HLD (hyperlipidemia) (Acute) HTN (hypertension) (Acute) T2DM (type 2 diabetes mellitus) (Acute) Past Medical History Medical History Cirrhosis Hypothyroidism Breast cancer Hx of Clostridium difficile infection (HFpEF) heart failure with preserved ejection fraction Murmur CKD (chronic kidney disease) stage 3, GFR 30-59 ml/min Vitamin D deficiency HLD (hyperlipidemia) HTN (hypertension) T2DM (type 2 diabetes mellitus) Family History Family History Father Alzheimer disease Stroke Mother Breast cancer Family history of problems with anesthesia: No Surgical History Surgical History Hx of cataract surgery History of lumpectomy of right breast History of mastectomy History of Problems with Anesthesia: No Social History Social History Household Members: Family Household Members Other:: son Alcohol intake: never Patient Tobacco Use Status: Never used Tobacco Use of substances other than those prescribed or required for medical reasons: Unable to respond Last Used Substance Other:: unknown, unable to respond, she is nonsensical and delusional when she does Currently Displaying Signs/Symptoms of Drug Intoxication Withdrawal: No Other Past Substance Use Problem:: unknown, unable to respond, she is nonsensical and delusional when she does Spiritual Healthcare Practices: unknown, unable to respond, she is nonsensical and delusional when she does respond Religion Healthcare Practices: unknown, unable to respond, she is nonsensical and delusional when she does respond Cultural Healthcare Practices: unknown, unable to respond, she is nonsensical and delusional when she does respond Advance Directives: No Advance Directives Information Provided: No Do you have thoughts of harming others: None Do you have a plan to hurt others: No Plan Recently lost weight without trying: Unsure Patient : No : No Poor oral hygiene: No service: No Sexual orientation: Straight/Heterosexual Meds Allergies Allergy/AdvReac Type Severity Reaction Status Date / Time atropine Allergy Unknown Shortness Verified 12/02/23 23:30 of Breath enoxaparin [From Lovenox] Allergy Unknown Unknown Verified 12/02/23 23:30 penicillin V Allergy Unknown Unknown Verified 03/19/23 07:30 pseudoephedrine [Aprodine] Allergy Unknown Unknown Verified 03/19/23 07:30 triprolidine [Aprodine] Allergy Unknown Unknown Verified 03/19/23 07:30 Active Medications: Current Medications Acetaminophen (Acetaminophen 325 Mg Tablet) 650 mg PO Q6H PRN PRN Reason: Headache/Pain Mild Scale (1-3) Al Hydroxide/Mg Hydroxide (Magnesium Hydrox/Alum Hydrox 30 Ml Oral.Susp) 30 ml PO Q6H PRN PRN Reason: Heartburn/Nausea Amlodipine Besylate (Amlodipine Besylate 5 Mg Tablet) 5 mg PO DAILY [facility]; Protocol Last Admin: 12/10/23 10:12 Dose: Not Given Anastrozole (Anastrozole 1 Mg Tablet) 1 mg PO DAILY [facility] Last Admin: 12/10/23 10:12 Dose: Not Given Aspirin (Aspirin 81 Mg Tab.Chew) 81 mg PO DAILY [facility] Last Admin: 12/10/23 10:12 Dose: Not Given Atorvastatin Calcium (Atorvastatin Calcium 10 Mg Tablet) 10 mg PO BEDTIME TOVA Last Admin: 12/10/23 21:07 Dose: 10 mg Cefuroxime Axetil (Cefuroxime Axetil 250 Mg Tablet) 250 mg PO Q12H TOVA Last Admin: 12/10/23 21:07 Dose: 250 mg Divalproex Sodium (Divalproex Sodium 500 Mg Tablet.) 500 mg PO BEDTIME TOVA Last Admin: 12/09/23 20:58 Dose: 500 mg Ferrous Sulfate (Ferrous Sulfate 324 Mg Tablet.) 324 mg PO DAILY TOVA Last Admin: 12/10/23 10:13 Dose: Not Given Furosemide (Furosemide 20 Mg Tablet) 20 mg PO DAILY [facility]; Protocol Last Admin: 12/10/23 10:13 Dose: Not Given Glucose (Glucose Gel 15 Gm Gel..Gram.) 15 gm PO Q15M PRN; Protocol PRN Reason: per Hypoglycemia Standing Ord. Dextrose (D10) 250 mls @ 750 mls/hr IV Q15M PRN; Protocol PRN Reason: per Hypoglycemia Standing Ord. Lactated Ringer's (Lr) 1,000 mls @ 50 mls/hr IVCONT .Q20H [facility] Insulin Glargine (Insulin Glargine,Hum.Rec.Anlog 100 Unit/Ml 10 Ml Vial) 6 unit SUBCUT BEDTIME [facility] Last Admin: 12/10/23 21:09 Dose: Not Given Insulin Human Lispro (Insulin Lispro 100 Unit/Ml 3 Ml Vial) 0 unit SUBCUT QIDACHS [facility]; Protocol Last Admin: 12/10/23 22:44 Dose: Not Given Levetiracetam (Levetiracetam 500 Mg Tablet) 500 mg PO BID [facility] Last Admin: 12/10/23 10:13 Dose: Not Given Loratadine (Loratadine 10 Mg Tablet) 10 mg PO BEDTIME [facility] Last Admin: 12/10/23 21:11 Dose: 10 mg Losartan Potassium (Losartan Potassium 50 Mg Tablet) 100 mg PO DAILY [facility]; Protocol Last Admin: 12/10/23 10:13 Dose: Not Given Magnesium Hydroxide (Milk Of Magnesia 30 Ml Oral.Susp) 30 ml PO DAILY PRN PRN Reason: Constipation Magnesium Oxide (Magnesium Oxide 400 Mg Tablet) 400 mg PO BID [facility] Last Admin: 12/10/23 21:07 Dose: 400 mg Mirtazapine (Mirtazapine 30 Mg Tablet) 30 mg PO BEDTIME [facility] Last Admin: 12/10/23 21:07 Dose: 30 mg Multivitamins/Vitamin C (Multivitamin Tablet) 1 tab PO DAILY [facility] Last Admin: 12/10/23 10:13 Dose: Not Given Nicotine Polacrilex (Nicotine Polacrilex 2 Mg Gum) 4 mg BUCCAL Q2H PRN PRN Reason: Nicotine Cravings Omeprazole (Omeprazole 20 Mg Capsule.Dr) 20 mg PO DAILY@0630 [facility] Last Admin: 12/11/23 06:25 Dose: Not Given Risperidone (Risperidone 0.5 Mg Tablet) 0.5 mg PO BID PRN PRN Reason: Restlessness Thiamine HCl (Thiamine Hcl 100 Mg Tablet) 100 mg PO DAILY [facility] Last Admin: 12/10/23 10:13 Dose: Not Given Trazodone HCl (Trazodone Hcl 50 Mg Tablet) 50 mg PO BEDTIME PRN PRN Reason: Insomnia Last Admin: 12/08/23 22:06 Dose: 50 mg Vancomycin HCl (Vancomycin Hcl Oral Solution 125 Mg/5 Ml Soln.Recon) 125 mg PO Q6H TOVA Last Admin: 12/11/23 02:46 Dose: Not Given Home Medications ?Medication ?Instructions ?Recorded ?Confirmed ?Last Taken ?Type ascorbate calcium (vitamin C) 500 500 mg PO DAILY 03/24/20 11/20/22 Unknown History mg tablet fluoxetine 20 mg capsule 40 mg PO DAILY 03/24/20 11/20/22 Unknown History levothyroxine 100 mcg tablet 100 mcg PO QAM 03/24/20 11/20/22 Unknown History mirtazapine 30 mg tablet 30 mg PO BEDTIME 03/24/20 11/20/22 Unknown History omeprazole 20 mg capsule,delayed 20 mg PO DAILY 03/24/20 11/20/22 Unknown History release risperidone 1 mg tablet 1 mg PO BEDTIME 03/24/20 11/20/22 Unknown History insulin glargine 100 unit/mL (3 30 unit subcut BEDTIME 09/28/20 11/20/22 Unknown History mL) subcutaneous pen anastrozole 1 mg tablet 1 mg PO DAILY 02/16/21 11/20/22 Unknown History dapagliflozin propanediol 10 mg 10 mg PO QAM 05/08/21 11/20/22 Unknown History tablet (Farxiga) losartan 50 mg tablet 50 mg PO DAILY 09/14/21 11/20/22 Unknown History amlodipine 5 mg tablet 5 mg PO QAM 12/02/23 12/02/23 Unknown History anastrozole 1 mg tablet 1 mg PO DAILY 12/02/23 12/02/23 Unknown History aspirin 81 mg chewable tablet 1 tab PO QAM 12/02/23 12/02/23 Unknown History cetirizine 5 mg tablet 5 mg PO BEDTIME 12/02/23 12/02/23 Unknown History divalproex 500 mg tablet,delayed 500 mg PO BEDTIME 12/02/23 12/02/23 Unknown History release ferrous sulfate 325 mg (65 mg 325 mg PO QAM 12/02/23 12/02/23 Unknown History iron) tablet (FeroSul) furosemide 20 mg tablet (Lasix) 20 mg PO DAILY 12/02/23 12/02/23 Unknown History insulin glargine 100 unit/mL 6 unit subcut BEDTIME 12/02/23 12/02/23 Unknown History subcutaneous solution insulin lispro 100 unit/mL 1 sliding scale dose subcut 12/02/23 12/02/23 Unknown History subcutaneous solution USEASDIRECTD levetiracetam 500 mg tablet 500 mg PO BID 12/02/23 12/02/23 Unknown History losartan 100 mg tablet 100 mg PO DAILY 12/02/23 12/02/23 Unknown History losartan 100 mg tablet 100 mg PO DAILY 12/02/23 12/02/23 Unknown History magnesium oxide 400 mg PO BID 12/02/23 12/02/23 Unknown History mirtazapine 30 mg disintegrating 30 mg PO BEDTIME 12/02/23 12/02/23 Unknown History tablet multivitamin with minerals 1 tab PO DAILY 12/02/23 12/02/23 Unknown History pantoprazole 40 mg tablet,delayed 40 mg PO DAILY 12/02/23 12/02/23 Unknown History release risperidone 0.5 mg tablet 0.5 mg PO BID PRN Agitation 12/02/23 12/02/23 Unknown History risperidone 2 mg tablet 2 mg PO BID 12/02/23 12/02/23 Unknown History simvastatin 20 mg tablet 20 mg PO BEDTIME 12/02/23 12/02/23 Unknown History thiamine HCl (vitamin B1) 100 mg 100 mg PO QAM 12/02/23 12/02/23 Unknown History tablet trazodone 50 mg tablet 50 mg PO BEDTIME PRN insomnia 12/02/23 12/02/23 Unknown History vancomycin 125 mg capsule See Rx Instructions .Route .COMPLEX 12/02/23 12/02/23 Unknown History (Vancocin) Exam Height,Weight and Vital Signs: Height 4 ft 11 in Weight 45.2 kg Last Vital Signs Temp 97.5 F 12/11/23 06:38 Pulse 55 12/11/23 06:38 Resp 16 12/11/23 06:38 BP 113/52 L 12/11/23 06:38 Pulse Ox 94 12/11/23 06:38 O2 Del Method Room Air 12/11/23 06:38 Pertinent Lab Results Pertinent Lab Results: Laboratory Tests 12/02/23 12/03/23 12/03/23 22:55 06:35 08:01 WBC RBC Hgb Hct MCV MCH MCHC RDW Plt Count MPV Immature Gran % (Auto) Neut % (Auto) Lymph % (Auto) [place] % (Auto) Eos % (Auto) Baso % (Auto) Lymph # (Auto) [place] # (Auto) Eos # (Auto) Baso # (Auto) Abs Immat Gran (auto) Absolute Neuts (auto) Absolute Nucleated RBC Nucleated RBC % (auto) Sodium 134 L Potassium 4.0 Chloride 98 Carbon Dioxide 27 Anion Gap 13 BUN 21 H Creatinine 0.88 Estim Creat Clear Calc TNP Estimated GFR > 60 POC Glucose 296 H 212 H Random Glucose Fasting Glucose 236 H Estimat Average Glucose 169 Hemoglobin A1c % 7.5 H Calcium 10.2 Total Bilirubin 0.5 Direct Bilirubin AST 19 ALT 16 Alkaline Phosphatase 93 Ammonia Total Protein 8.7 H Albumin 3.5 Triglycerides 105 Cholesterol 182 LDL Cholesterol, Calc 93 HDL Cholesterol 68 Vitamin B12 Folate TSH Urine Color Urine Appearance Urine pH Ur Specific [place] Urine Protein Urine Glucose (UA) Urine Ketones Urine Blood Urine Nitrite Ur Leukocyte Esterase Urine RBC Urine WBC Ur Squamous Epith Cells Urine Bacteria Hyaline Casts Granular Casts Urine Yeast Stool Occult Blood Stl C. cayetanensis PCR Stool Rotavirus A PCR Stl Adenov F 40/41 PCR Stool Astrovirus (PCR) Stool Campylobacter PCR Stool Cryptosporidium PCR Stl Sh Tox Pr E STEC PCR Stool E coli O157 PCR Stl Enterotoxigenic E PCR Stool EPEC (PCR) Stool EAEC (PCR) Stl E. histolytica PCR Stool Giardia Lamblia PCR Stl P. shigelloides PCR Stool Salmonella PCR Stool Sapovirus (PCR) Stl Shigella/EIEC PCR St Y.enterocolitica PCR Stool Vibrio (PCR) Stl Vibrio cholerae PCR Stl Norovirus GI/GII PCR C. difficile Tox B Gene C. difficile Toxin A&B C. difficile Interpret 12/03/23 12/03/23 12/03/23 10:29 11:31 11:45 WBC 4.6 L RBC 3.96 L Hgb 10.9 L Hct 33.1 L MCV 83.6 MCH 27.5 MCHC 32.9 RDW 14.9 Plt Count 116 L MPV 9.5 Immature Gran % (Auto) 0.2 Neut % (Auto) 70.4 Lymph % (Auto) 17.7 L [place] % (Auto) 10.4 Eos % (Auto) 1.1 Baso % (Auto) 0.2 Lymph # (Auto) 0.8 L [place] # (Auto) 0.5 Eos # (Auto) 0.1 Baso # (Auto) 0.0 Abs Immat Gran (auto) 0.01 Absolute Neuts (auto) 3.3 Absolute Nucleated RBC 0.000 Nucleated RBC % (auto) 0.0 Sodium Potassium Chloride Carbon Dioxide Anion Gap BUN Creatinine Estim Creat Clear Calc Estimated GFR POC Glucose 234 H Random Glucose Fasting Glucose Estimat Average Glucose Hemoglobin A1c % Calcium Total Bilirubin Direct Bilirubin AST ALT Alkaline Phosphatase Ammonia 55 Total Protein Albumin Triglycerides Cholesterol LDL Cholesterol, Calc HDL Cholesterol Vitamin B12 Folate TSH Urine Color Urine Appearance Urine pH Ur Specific [place] Urine Protein Urine Glucose (UA) Urine Ketones Urine Blood Urine Nitrite Ur Leukocyte Esterase Urine RBC Urine WBC Ur Squamous Epith Cells Urine Bacteria Hyaline Casts Granular Casts Urine Yeast Stool Occult Blood Stl C. cayetanensis PCR Stool Rotavirus A PCR Stl Adenov F 40/41 PCR Stool Astrovirus (PCR) Stool Campylobacter PCR Stool Cryptosporidium PCR Stl Sh Tox Pr E STEC PCR Stool E coli O157 PCR Stl Enterotoxigenic E PCR Stool EPEC (PCR) Stool EAEC (PCR) Stl E. histolytica PCR Stool Giardia Lamblia PCR Stl P. shigelloides PCR Stool Salmonella PCR Stool Sapovirus (PCR) Stl Shigella/EIEC PCR St Y.enterocolitica PCR Stool Vibrio (PCR) Stl Vibrio cholerae PCR Stl Norovirus GI/GII PCR C. difficile Tox B Gene C. difficile Toxin A&B C. difficile Interpret 12/03/23 12/03/23 12/03/23 16:05 16:31 17:30 WBC RBC Hgb Hct MCV MCH MCHC RDW Plt Count MPV Immature Gran % (Auto) Neut % (Auto) Lymph % (Auto) [place] % (Auto) Eos % (Auto) Baso % (Auto) Lymph # (Auto) [place] # (Auto) Eos # (Auto) Baso # (Auto) Abs Immat Gran (auto) Absolute Neuts (auto) Absolute Nucleated RBC Nucleated RBC % (auto) Sodium Potassium Chloride Carbon Dioxide Anion Gap BUN Creatinine Estim Creat Clear Calc Estimated GFR POC Glucose 217 H Random Glucose Fasting Glucose Estimat Average Glucose Hemoglobin A1c % Calcium Total Bilirubin Direct Bilirubin AST ALT Alkaline Phosphatase Ammonia Total Protein Albumin Triglycerides Cholesterol LDL Cholesterol, Calc HDL Cholesterol Vitamin B12 Folate TSH Urine Color Yellow Urine Appearance Cloudy Urine pH 5.5 Ur Specific [place] 1.020 Urine Protein 30 (1+) H Urine Glucose (UA) Negative Urine Ketones Negative Urine Blood Moderate (2+) H Urine Nitrite Negative Ur Leukocyte Esterase Moderate (2+) H Urine RBC >20 H Urine WBC >50 H Ur Squamous Epith Cells 3-5 Urine Bacteria 4+ Hyaline Casts >20 Granular Casts Present Urine Yeast Present Stool Occult Blood NEGATIVE Stl C. cayetanensis PCR Not Detected Stool Rotavirus A PCR Not Detected Stl Adenov F 40/41 PCR Not Detected Stool Astrovirus (PCR) Not Detected Stool Campylobacter PCR Not Detected Stool Cryptosporidium PCR Not Detected Stl Sh Tox Pr E STEC PCR Not Detected Stool E coli O157 PCR Not applicable Stl Enterotoxigenic E PCR Not Detected Stool EPEC (PCR) Not Detected Stool EAEC (PCR) Not Detected Stl E. histolytica PCR Not Detected Stool Giardia Lamblia PCR Not Detected Stl P. shigelloides PCR Not Detected Stool Salmonella PCR Not Detected Stool Sapovirus (PCR) Not Detected Stl Shigella/EIEC PCR Not Detected St Y.enterocolitica PCR Not Detected Stool Vibrio (PCR) Not Detected Stl Vibrio cholerae PCR Not Detected Stl Norovirus GI/GII PCR Not Detected C. difficile Tox B Gene POSITIVE A* C. difficile Toxin A&B Positive A* C. difficile Interpret SEE NOTE 12/03/23 12/04/23 12/04/23 21:03 06:21 11:26 WBC RBC Hgb Hct MCV MCH MCHC RDW Plt Count MPV Immature Gran % (Auto) Neut % (Auto) Lymph % (Auto) [place] % (Auto) Eos % (Auto) Baso % (Auto) Lymph # (Auto) [place] # (Auto) Eos # (Auto) Baso # (Auto) Abs Immat Gran (auto) Absolute Neuts (auto) Absolute Nucleated RBC Nucleated RBC % (auto) Sodium Potassium Chloride Carbon Dioxide Anion Gap BUN Creatinine Estim Creat Clear Calc Estimated GFR POC Glucose 207 H 176 H 210 H Random Glucose Fasting Glucose Estimat Average Glucose Hemoglobin A1c % Calcium Total Bilirubin Direct Bilirubin AST ALT Alkaline Phosphatase Ammonia Total Protein Albumin Triglycerides Cholesterol LDL Cholesterol, Calc HDL Cholesterol Vitamin B12 Folate TSH Urine Color Urine Appearance Urine pH Ur Specific [place] Urine Protein Urine Glucose (UA) Urine Ketones Urine Blood Urine Nitrite Ur Leukocyte Esterase Urine RBC Urine WBC Ur Squamous Epith Cells Urine Bacteria Hyaline Casts Granular Casts Urine Yeast Stool Occult Blood Stl C. cayetanensis PCR Stool Rotavirus A PCR Stl Adenov PCR Stool Astrovirus (PCR) Stool Campylobacter PCR Stool Cryptosporidium PCR Stl Sh Tox Pr E STEC PCR Stool E coli O157 PCR Stl Enterotoxigenic E PCR Stool EPEC (PCR) Stool EAEC (PCR) Stl E. histolytica PCR Stool Giardia Lamblia PCR Stl P. shigelloides PCR Stool Salmonella PCR Stool Sapovirus (PCR) Stl Shigella/EIEC PCR St Y.enterocolitica PCR Stool Vibrio (PCR) Stl Vibrio cholerae PCR Stl Norovirus GI/GII PCR C. difficile Tox B Gene C. difficile Toxin A&B C. difficile Interpret 12/04/23 12/04/23 12/05/23 16:34 20:17 06:35 WBC RBC Hgb Hct MCV MCH MCHC RDW Plt Count MPV Immature Gran % (Auto) Neut % (Auto) Lymph % (Auto) [place] % (Auto) Eos % (Auto) Baso % (Auto) Lymph # (Auto) [place] # (Auto) Eos # (Auto) Baso # (Auto) Abs Immat Gran (auto) Absolute Neuts (auto) Absolute Nucleated RBC Nucleated RBC % (auto) Sodium Potassium Chloride Carbon Dioxide Anion Gap BUN Creatinine Estim Creat Clear Calc Estimated GFR POC Glucose 176 H 154 H 146 H Random Glucose Fasting Glucose Estimat Average Glucose Hemoglobin A1c % Calcium Total Bilirubin Direct Bilirubin AST ALT Alkaline Phosphatase Ammonia Total Protein Albumin Triglycerides Cholesterol LDL Cholesterol, Calc HDL Cholesterol Vitamin B12 Folate TSH Urine Color Urine Appearance Urine pH Ur Specific [place] Urine Protein Urine Glucose (UA) Urine Ketones Urine Blood Urine Nitrite Ur Leukocyte Esterase Urine RBC Urine WBC Ur Squamous Epith Cells Urine Bacteria Hyaline Casts Granular Casts Urine Yeast Stool Occult Blood Stl C. cayetanensis PCR Stool Rotavirus A PCR Stl Adenov F PCR Stool Astrovirus (PCR) Stool Campylobacter PCR Stool Cryptosporidium PCR Stl Sh Tox Pr E STEC PCR Stool E coli O157 PCR Stl Enterotoxigenic E PCR Stool EPEC (PCR) Stool EAEC (PCR) Stl E. histolytica PCR Stool Giardia Lamblia PCR Stl P. shigelloides PCR Stool Salmonella PCR Stool Sapovirus (PCR) Stl Shigella/EIEC PCR St Y.enterocolitica PCR Stool Vibrio (PCR) Stl Vibrio cholerae PCR Stl Norovirus GI/GII PCR C. difficile Tox B Gene C. difficile Toxin A&B C. difficile Interpret 12/05/23 12/05/23 12/05/23 11:08 16:36 20:27 WBC RBC Hgb Hct MCV MCH MCHC RDW Plt Count MPV Immature Gran % (Auto) Neut % (Auto) Lymph % (Auto) [place] % (Auto) Eos % (Auto) Baso % (Auto) Lymph # (Auto) [place] # (Auto) Eos # (Auto) Baso # (Auto) Abs Immat Gran (auto) Absolute Neuts (auto) Absolute Nucleated RBC Nucleated RBC % (auto) Sodium Potassium Chloride Carbon Dioxide Anion Gap BUN Creatinine Estim Creat Clear Calc Estimated GFR POC Glucose 164 H 162 H 198 H Random Glucose Fasting Glucose Estimat Average Glucose Hemoglobin A1c % Calcium Total Bilirubin Direct Bilirubin AST ALT Alkaline Phosphatase Ammonia Total Protein Albumin Triglycerides Cholesterol LDL Cholesterol, Calc HDL Cholesterol Vitamin B12 Folate TSH Urine Color Urine Appearance Urine pH Ur Specific [place] Urine Protein Urine Glucose (UA) Urine Ketones Urine Blood Urine Nitrite Ur Leukocyte Esterase Urine RBC Urine WBC Ur Squamous Epith Cells Urine Bacteria Hyaline Casts Granular Casts Urine Yeast Stool Occult Blood Stl C. cayetanensis PCR Stool Rotavirus A PCR Stl Adenov F 40/41 PCR Stool Astrovirus (PCR) Stool Campylobacter PCR Stool Cryptosporidium PCR Stl Sh Tox Pr E STEC PCR Stool E coli O157 PCR Stl Enterotoxigenic E PCR Stool EPEC (PCR) Stool EAEC (PCR) Stl E. histolytica PCR Stool Giardia Lamblia PCR Stl P. shigelloides PCR Stool Salmonella PCR Stool Sapovirus (PCR) Stl Shigella/EIEC PCR St Y.enterocolitica PCR Stool Vibrio (PCR) Stl Vibrio cholerae PCR Stl Norovirus GI/GII PCR C. difficile Tox B Gene C. difficile Toxin A&B C. difficile Interpret 12/06/23 12/06/23 12/06/23 06:22 07:57 11:30 WBC RBC Hgb Hct MCV MCH MCHC RDW Plt Count MPV Immature Gran % (Auto) Neut % (Auto) Lymph % (Auto) [place] % (Auto) Eos % (Auto) Baso % (Auto) Lymph # (Auto) [place] # (Auto) Eos # (Auto) Baso # (Auto) Abs Immat Gran (auto) Absolute Neuts (auto) Absolute Nucleated RBC Nucleated RBC % (auto) Sodium 142 Potassium 4.5 Chloride 103 Carbon Dioxide 30 H Anion Gap 14 BUN 32 H Creatinine 0.88 Estim Creat Clear Calc 37.7 Estimated GFR > 60 POC Glucose 122 H 135 H Random Glucose Fasting Glucose 137 H Estimat Average Glucose Hemoglobin A1c % Calcium 10.7 H Total Bilirubin 0.5 Direct Bilirubin AST 24 ALT 15 Alkaline Phosphatase 97 Ammonia Total Protein 9.2 H Albumin 3.6 Triglycerides Cholesterol LDL Cholesterol, Calc HDL Cholesterol Vitamin B12 1504 H Folate 14.9 TSH 2.88 Urine Color Urine Appearance Urine pH Ur Specific [place] Urine Protein Urine Glucose (UA) Urine Ketones Urine Blood Urine Nitrite Ur Leukocyte Esterase Urine RBC Urine WBC Ur Squamous Epith Cells Urine Bacteria Hyaline Casts Granular Casts Urine Yeast Stool Occult Blood Stl C. cayetanensis PCR Stool Rotavirus A PCR Stl Adenov F 40/41 PCR Stool Astrovirus (PCR) Stool Campylobacter PCR Stool Cryptosporidium PCR Stl Sh Tox Pr E STEC PCR Stool E coli O157 PCR Stl Enterotoxigenic E PCR Stool EPEC (PCR) Stool EAEC (PCR) Stl E. histolytica PCR Stool Giardia Lamblia PCR Stl P. shigelloides PCR Stool Salmonella PCR Stool Sapovirus (PCR) Stl Shigella/EIEC PCR St Y.enterocolitica PCR Stool Vibrio (PCR) Stl Vibrio cholerae PCR Stl Norovirus GI/GII PCR C. difficile Tox B Gene C. difficile Toxin A&B C. difficile Interpret 12/06/23 12/06/23 12/07/23 16:30 19:51 06:57 WBC RBC Hgb Hct MCV MCH MCHC RDW Plt Count MPV Immature Gran % (Auto) Neut % (Auto) Lymph % (Auto) [place] % (Auto) Eos % (Auto) Baso % (Auto) Lymph # (Auto) [place] # (Auto) Eos # (Auto) Baso # (Auto) Abs Immat Gran (auto) Absolute Neuts (auto) Absolute Nucleated RBC Nucleated RBC % (auto) Sodium Potassium Chloride Carbon Dioxide Anion Gap BUN Creatinine Estim Creat Clear Calc Estimated GFR POC Glucose 173 H 208 H 151 H Random Glucose Fasting Glucose Estimat Average Glucose Hemoglobin A1c % Calcium Total Bilirubin Direct Bilirubin AST ALT Alkaline Phosphatase Ammonia Total Protein Albumin Triglycerides Cholesterol LDL Cholesterol, Calc HDL Cholesterol Vitamin B12 Folate TSH Urine Color Urine Appearance Urine pH Ur Specific [place] Urine Protein Urine Glucose (UA) Urine Ketones Urine Blood Urine Nitrite Ur Leukocyte Esterase Urine RBC Urine WBC Ur Squamous Epith Cells Urine Bacteria Hyaline Casts Granular Casts Urine Yeast Stool Occult Blood Stl C. cayetanensis PCR Stool Rotavirus A PCR Stl Adenov F 40 PCR Stool Astrovirus (PCR) Stool Campylobacter PCR Stool Cryptosporidium PCR Stl Sh Tox Pr E STEC PCR Stool E coli O157 PCR Stl Enterotoxigenic E PCR Stool EPEC (PCR) Stool EAEC (PCR) Stl E. histolytica PCR Stool Giardia Lamblia PCR Stl P. shigelloides PCR Stool Salmonella PCR Stool Sapovirus (PCR) Stl Shigella/EIEC PCR St Y.enterocolitica PCR Stool Vibrio (PCR) Stl Vibrio cholerae PCR Stl Norovirus GI/GII PCR C. difficile Tox B Gene C. difficile Toxin A&B C. difficile Interpret 12/07/23 12/07/23 12/07/23 11:09 16:11 19:32 WBC RBC Hgb Hct MCV MCH MCHC RDW Plt Count MPV Immature Gran % (Auto) Neut % (Auto) Lymph % (Auto) [place] % (Auto) Eos % (Auto) Baso % (Auto) Lymph # (Auto) [place] # (Auto) Eos # (Auto) Baso # (Auto) Abs Immat Gran (auto) Absolute Neuts (auto) Absolute Nucleated RBC Nucleated RBC % (auto) Sodium Potassium Chloride Carbon Dioxide Anion Gap BUN Creatinine Estim Creat Clear Calc Estimated GFR POC Glucose 167 H 154 H 225 H Random Glucose Fasting Glucose Estimat Average Glucose Hemoglobin A1c % Calcium Total Bilirubin Direct Bilirubin AST ALT Alkaline Phosphatase Ammon[place] Total Protein Albumin Triglycerides Cholesterol LDL Cholesterol, Calc HDL Cholesterol Vitamin B12 Folate TSH Urine Color Urine Appearance Urine pH Ur Specific [place] Urine Protein Urine Glucose (UA) Urine Ketones Urine Blood Urine Nitrite Ur Leukocyte Esterase Urine RBC Urine WBC Ur Squamous Epith Cells Urine Bacteria Hyaline Casts Granular Casts Urine Yeast Stool Occult Blood Stl C. cayetanensis PCR Stool Rotavirus A PCR Stl Adenov F PCR Stool Astrovirus (PCR) Stool Campylobacter PCR Stool Cryptosporidium PCR Stl Sh Tox Pr E STEC PCR Stool E coli O157 PCR Stl Enterotoxigenic E PCR Stool EPEC (PCR) Stool EAEC (PCR) Stl E. histolytica PCR Stool Giardia Lamblia PCR Stl P. shigelloides PCR Stool Salmonella PCR Stool Sapovirus (PCR) Stl Shigella/EIEC PCR St Y.enterocolitica PCR Stool Vibrio (PCR) Stl Vibrio cholerae PCR Stl Norovirus GI/GII PCR C. difficile Tox B Gene C. difficile Toxin A&B C. difficile Interpret 12/08/23 12/08/23 12/08/23 06:23 11:15 16:29 WBC RBC Hgb Hct MCV MCH MCHC RDW Plt Count MPV Immature Gran % (Auto) Neut % (Auto) Lymph % (Auto) [place] % (Auto) Eos % (Auto) Baso % (Auto) Lymph # (Auto) [place] # (Auto) Eos # (Auto) Baso # (Auto) Abs Immat Gran (auto) Absolute Neuts (auto) Absolute Nucleated RBC Nucleated RBC % (auto) Sodium Potassium Chloride Carbon Dioxide Anion Gap BUN Creatinine Estim Creat Clear Calc Estimated GFR POC Glucose 150 H 171 H 131 H Random Glucose Fasting Glucose Estimat Average Glucose Hemoglobin A1c % Calcium Total Bilirubin Direct Bilirubin AST ALT Alkaline Phosphatase Ammonia Total Protein Albumin Triglycerides Cholesterol LDL Cholesterol, Calc HDL Cholesterol Vitamin B12 Folate TSH Urine Color Urine Appearance Urine pH Ur Specific [place] Urine Protein Urine Glucose (UA) Urine Ketones Urine Blood Urine Nitrite Ur Leukocyte Esterase Urine RBC Urine WBC Ur Squamous Epith Cells Urine Bacteria Hyaline Casts Granular Casts Urine Yeast Stool Occult Blood Stl C. cayetanensis PCR Stool Rotavirus A PCR Stl Adenov F 40/41 PCR Stool Astrovirus (PCR) Stool Campylobacter PCR Stool Cryptosporidium PCR Stl Sh Tox Pr E STEC PCR Stool E coli O157 PCR Stl Enterotoxigenic E PCR Stool EPEC (PCR) Stool EAEC (PCR) Stl E. histolytica PCR Stool Giardia Lamblia PCR Stl P. shigelloides PCR Stool Salmonella PCR Stool Sapovirus (PCR) Stl Shigella/EIEC PCR St Y.enterocolitica PCR Stool Vibrio (PCR) Stl Vibrio cholerae PCR Stl Norovirus GI/GII PCR C. difficile Tox B Gene C. difficile Toxin A&B C. difficile Interpret 12/08/23 12/08/23 12/09/23 19:07 20:11 06:32 WBC 3.3 L RBC 3.73 L Hgb 10.3 L Hct 32.0 L MCV 85.8 MCH 27.6 MCHC 32.2 RDW 14.2 Plt Count 99 L MPV 10.0 Immature Gran % (Auto) 0.3 Neut % (Auto) 53.2 Lymph % (Auto) 29.7 [place] % (Auto) 15.3 H Eos % (Auto) 1.2 Baso % (Auto) 0.3 Lymph # (Auto) 1.0 L [place] # (Auto) 0.5 Eos # (Auto) 0.0 Baso # (Auto) 0.0 Abs Immat Gran (auto) 0.01 Absolute Neuts (auto) 1.8 L Absolute Nucleated RBC 0.000 Nucleated RBC % (auto) 0.0 Sodium 142 Potassium 4.2 Chloride 104 Carbon Dioxide 30 H Anion Gap 12 BUN 27 H Creatinine 0.82 Estim Creat Clear Calc 40.4 Estimated GFR > 60 POC Glucose 116 H 145 H Random Glucose 114 Fasting Glucose Estimat Average Glucose Hemoglobin A1c % Calcium 10.5 H Total Bilirubin 0.6 Direct Bilirubin AST 25 ALT 14 Alkaline Phosphatase 90 Ammonia Total Protein 8.6 H Albumin 3.4 L Triglycerides Cholesterol LDL Cholesterol, Calc HDL Cholesterol Vitamin B12 Folate TSH Urine Color Urine Appearance Urine pH Ur Specific [place] Urine Protein Urine Glucose (UA) Urine Ketones Urine Blood Urine Nitrite Ur Leukocyte Esterase Urine RBC Urine WBC Ur Squamous Epith Cells Urine Bacteria Hyaline Casts Granular Casts Urine Yeast Stool Occult Blood Stl C. cayetanensis PCR Stool Rotavirus A PCR Stl Adenov F 40 PCR Stool Astrovirus (PCR) Stool Campylobacter PCR Stool Cryptosporidium PCR Stl Sh Tox Pr E STEC PCR Stool E coli O157 PCR Stl Enterotoxigenic E PCR Stool EPEC (PCR) Stool EAEC (PCR) Stl E. histolytica PCR Stool Giardia Lamblia PCR Stl P. shigelloides PCR Stool Salmonella PCR Stool Sapovirus (PCR) Stl Shigella/EIEC PCR St Y.enterocolitica PCR Stool Vibrio (PCR) Stl Vibrio cholerae PCR Stl Norovirus GI/GII PCR C. difficile Tox B Gene C. difficile Toxin A&B C. difficile Interpret 12/09/23 12/09/23 12/09/23 09:57 11:34 16:28 WBC 2.8 L RBC 3.68 L Hgb 10.1 L Hct 32.1 L MCV 87.2 MCH 27.4 MCHC 31.5 RDW 14.4 Plt Count 86 L MPV 9.6 Immature Gran % (Auto) 0.0 Neut % (Auto) 56.4 Lymph % (Auto) 29.1 [place] % (Auto) 12.4 H Eos % (Auto) 1.4 Baso % (Auto) 0.7 Lymph # (Auto) 0.8 L [place] # (Auto) 0.4 Eos # (Auto) 0.0 Baso # (Auto) 0.0 Abs Immat Gran (auto) 0.00 Absolute Neuts (auto) 1.6 L Absolute Nucleated RBC 0.000 Nucleated RBC % (auto) 0.0 Sodium 140 Potassium 4.7 Chloride 103 Carbon Dioxide 30 H Anion Gap 12 BUN 30 H Creatinine 0.99 Estim Creat Clear Calc 33.4 Estimated GFR 55 POC Glucose 201 H 143 H Random Glucose 279 H Fasting Glucose Estimat Average Glucose Hemoglobin A1c % Calcium 10.4 H Total Bilirubin 0.4 Direct Bilirubin 0.2 AST 30 ALT 16 Alkaline Phosphatase 96 Ammonia Total Protein 8.4 H Albumin 3.3 L Triglycerides Cholesterol LDL Cholesterol, Calc HDL Cholesterol Vitamin B12 Folate TSH Urine Color Urine Appearance Urine pH Ur Specific [place] Urine Protein Urine Glucose (UA) Urine Ketones Urine Blood Urine Nitrite Ur Leukocyte Esterase Urine RBC Urine WBC Ur Squamous Epith Cells Urine Bacteria Hyaline Casts Granular Casts Urine Yeast Stool Occult Blood Stl C. cayetanensis PCR Stool Rotavirus A PCR Stl Adenov F 40/41 PCR Stool Astrovirus (PCR) Stool Campylobacter PCR Stool Cryptosporidium PCR Stl Sh Tox Pr E STEC PCR Stool E coli O157 PCR Stl Enterotoxigenic E PCR Stool EPEC (PCR) Stool EAEC (PCR) Stl E. histolytica PCR Stool Giardia Lamblia PCR Stl P. shigelloides PCR Stool Salmonella PCR Stool Sapovirus (PCR) Stl Shigella/EIEC PCR St Y.enterocolitica PCR Stool Vibrio (PCR) Stl Vibrio cholerae PCR Stl Norovirus GI/GII PCR C. difficile Tox B Gene C. difficile Toxin A&B C. difficile Interpret 12/09/23 12/10/23 12/10/23 19:52 06:12 08:25 WBC RBC Hgb Hct MCV MCH MCHC RDW Plt Count MPV Immature Gran % (Auto) Neut % (Auto) Lymph % (Auto) [place] % (Auto) Eos % (Auto) Baso % (Auto) Lymph # (Auto) [place] # (Auto) Eos # (Auto) Baso # (Auto) Abs Immat Gran (auto) Absolute Neuts (auto) Absolute Nucleated RBC Nucleated RBC % (auto) Sodium Potassium Chloride Carbon Dioxide Anion Gap BUN Creatinine Estim Creat Clear Calc Estimated GFR POC Glucose 205 H 124 H 146 H Random Glucose Fasting Glucose Estimat Average Glucose Hemoglobin A1c % Calcium Total Bilirubin Direct Bilirubin AST ALT Alkaline Phosphatase Ammonia Total Protein Albumin Triglycerides Cholesterol LDL Cholesterol, Calc HDL Cholesterol Vitamin B12 Folate TSH Urine Color Urine Appearance Urine pH Ur Specific [place] Urine Protein Urine Glucose (UA) Urine Ketones Urine Blood Urine Nitrite Ur Leukocyte Esterase Urine RBC Urine WBC Ur Squamous Epith Cells Urine Bacteria Hyaline Casts Granular Casts Urine Yeast Stool Occult Blood Stl C. cayetanensis PCR Stool Rotavirus A PCR Stl Adenov F PCR Stool Astrovirus (PCR) Stool Campylobacter PCR Stool Cryptosporidium PCR Stl Sh Tox Pr E STEC PCR Stool E coli O157 PCR Stl Enterotoxigenic E PCR Stool EPEC (PCR) Stool EAEC (PCR) Stl E. histolytica PCR Stool Giardia Lamblia PCR Stl P. shigelloides PCR Stool Salmonella PCR Stool Sapovirus (PCR) Stl Shigella/EIEC PCR St Y.enterocolitica PCR Stool Vibrio (PCR) Stl Vibrio cholerae PCR Stl Norovirus GI/GII PCR C. difficile Tox B Gene C. difficile Toxin A&B C. difficile Interpret 12/10/23 12/10/23 12/10/23 11:53 16:42 20:01 WBC RBC Hgb Hct MCV MCH MCHC RDW Plt Count MPV Immature Gran % (Auto) Neut % (Auto) Lymph % (Auto) [place] % (Auto) Eos % (Auto) Baso % (Auto) Lymph # (Auto) [place] # (Auto) Eos # (Auto) Baso # (Auto) Abs Immat Gran (auto) Absolute Neuts (auto) Absolute Nucleated RBC Nucleated RBC % (auto) Sodium Potassium Chloride Carbon Dioxide Anion Gap BUN Creatinine Estim Creat Clear Calc Estimated GFR POC Glucose 185 H 164 H 139 H Random Glucose Fasting Glucose Estimat Average Glucose Hemoglobin A1c % Calcium Total Bilirubin Direct Bilirubin AST ALT Alkaline Phosphatase Ammonia Total Protein Albumin Triglycerides Cholesterol LDL Cholesterol, Calc HDL Cholesterol Vitamin B12 Folate TSH Urine Color Urine Appearance Urine pH Ur Specific [place] Urine Protein Urine Glucose (UA) Urine Ketones Urine Blood Urine Nitrite Ur Leukocyte Esterase Urine RBC Urine WBC Ur Squamous Epith Cells Urine Bacteria Hyaline Casts Granular Casts Urine Yeast Stool Occult Blood Stl C. cayetanensis PCR Stool Rotavirus A PCR Stl Adenov F PCR Stool Astrovirus (PCR) Stool Campylobacter PCR Stool Cryptosporidium PCR Stl Sh Tox Pr E STEC PCR Stool E coli O157 PCR Stl Enterotoxigenic E PCR Stool EPEC (PCR) Stool EAEC (PCR) Stl E. histolytica PCR Stool Giardia Lamblia PCR Stl P. shigelloides PCR Stool Salmonella PCR Stool Sapovirus (PCR) Stl Shigella/EIEC PCR St Y.enterocolitica PCR Stool Vibrio (PCR) Stl Vibrio cholerae PCR Stl Norovirus GI/GII PCR C. difficile Tox B Gene C. difficile Toxin A&B C. difficile Interpret 12/11/23 06:00 WBC RBC Hgb Hct MCV MCH MCHC RDW Plt Count MPV Immature Gran % (Auto) Neut % (Auto) Lymph % (Auto) [place] % (Auto) Eos % (Auto) Baso % (Auto) Lymph # (Auto) [place] # (Auto) Eos # (Auto) Baso # (Auto) Abs Immat Gran (auto) Absolute Neuts (auto) Absolute Nucleated RBC Nucleated RBC % (auto) Sodium Potassium Chloride Carbon Dioxide Anion Gap BUN Creatinine Estim Creat Clear Calc Estimated GFR POC Glucose 151 H Random Glucose Fasting Glucose Estimat Average Glucose Hemoglobin A1c % Calcium Total Bilirubin Direct Bilirubin AST ALT Alkaline Phosphatase Ammonia Total Protein Albumin Triglycerides Cholesterol LDL Cholesterol, Calc HDL Cholesterol Vitamin B12 Folate TSH Urine Color Urine Appearance Urine pH Ur Specific [place] Urine Protein Urine Glucose (UA) Urine Ketones Urine Blood Urine Nitrite Ur Leukocyte Esterase Urine RBC Urine WBC Ur Squamous Epith Cells Urine Bacteria Hyaline Casts Granular Casts Urine Yeast Stool Occult Blood Stl C. cayetanensis PCR Stool Rotavirus A PCR Stl Adenov F 40/41 PCR Stool Astrovirus (PCR) Stool Campylobacter PCR Stool Cryptosporidium PCR Stl Sh Tox Pr E STEC PCR Stool E coli O157 PCR Stl Enterotoxigenic E PCR Stool EPEC (PCR) Stool EAEC (PCR) Stl E. histolytica PCR Stool Giardia Lamblia PCR Stl P. shigelloides PCR Stool Salmonella PCR Stool Sapovirus (PCR) Stl Shigella/EIEC PCR St Y.enterocolitica PCR Stool Vibrio (PCR) Stl Vibrio cholerae PCR Stl Norovirus GI/GII PCR C. difficile Tox B Gene C. difficile Toxin A&B C. difficile Interpret Airway Mallampati Class: Patient Non-Cooperative TM Dist: >3cm Heart: vidal Lungs: cta Assessment and Plan Assessment Anesthesia Assessment: Chart Reviewed Final Anesthetic Review Family History of Problems with Anesthesia: No History of Problems with Anesthesia: No NPO: Yes ASA Class: III Final Preanesthetic Review: Meds/Allgs Chart Reviewed and Consent Obtained/Reviewed Patient Risk: Intermediate Procedure Risk: Intermediate Anesthetic Plan Anesthetic Plan: GA Disposition: Standard PACU
[2023-12-11] MEDS: Lactated Ringers 1,000 ML 50 ML IVCONT (07:01)
--- NOTE | 2023-12-11 08:45 | P.CONAN_ITS ---
Documented by User: Sierra Lima MD 01/03/24 08:52 [facility] Past Medical History Medical History Cirrhosis Hypothyroidism Breast cancer Hx of Clostridium difficile infection (HFpEF) heart failure with preserved ejection fraction Murmur CKD (chronic kidney disease) stage 3, GFR 30-59 ml/min Vitamin D deficiency HLD (hyperlipidemia) HTN (hypertension) T2DM (type 2 diabetes mellitus) Family History Family History Father Alzheimer disease Stroke Mother Breast cancer Surgical History Surgical History Hx of cataract surgery History of lumpectomy of right breast History of mastectomy Social History Social History Household Members: Family Household Members Other:: son Alcohol intake: never Comment: 1:1 observation Patient Tobacco Use Status: Never used Tobacco Use of substances other than those prescribed or required for medical reasons: Unable to respond Last Used Substance Other:: unknown, unable to respond, she is nonsensical and delusional when she does Currently Displaying Signs/Symptoms of Drug Intoxication Withdrawal: No Other Past Substance Use Problem:: unknown, unable to respond, she is nonsensic al and delusional when she does Spiritual Healthcare Practices: unknown, unable to respond, she is nonsensical and delusional when she does respond [facility]: unknown, unable to respond, she is nonsensical and delusional when she does respond Cultural Healthcare Practices: unknown, unable to respond, she is nonsensical and delusional when she does respond Advance Directives: No Advance Directives Information Provided: No Do you have thoughts of harming others: None Do you have a plan to hurt others: No Plan Recently lost weight without trying: Unsure Patient : No : No Poor oral hygiene: No service: No Sexual orientation: Straight/Heterosexual Meds Allergies Allergy/AdvReac Type Severity Reaction Status Date / Time atropine Allergy Unknown Shortness Verified 12/02/23 23:30 of Breath enoxaparin [From Lovenox] Allergy Unknown Unknown Verified 12/02/23 23:30 penicillin V Allergy Unknown Unknown Verified 03/19/23 07:30 pseudoephedrine [Aprodine] Allergy Unknown Unknown Verified 03/19/23 07:30 triprolidine [Aprodine] Allergy Unknown Unknown Verified 03/19/23 07:30 Home Medications ?Medication ?Instructions ?Recorded ?Confirmed ?Last Taken ?Type ascorbate calcium (vitamin C) 500 500 mg PO DAILY 03/24/20 11/20/22 Unknown History mg tablet fluoxetine 20 mg capsule 40 mg PO DAILY 03/24/20 11/20/22 Unknown History levothyroxine 100 mcg tablet 100 mcg PO QAM 03/24/20 11/20/22 Unknown History mirtazapine 30 mg tablet 30 mg PO BEDTIME 03/24/20 11/20/22 Unknown History omeprazole 20 mg capsule,delayed 20 mg PO DAILY 03/24/20 11/20/22 Unknown Histor y release risperidone 1 mg tablet 1 mg PO BEDTIME 03/24/20 11/20/22 Unknown History insulin glargine 100 unit/mL (3 30 unit subcut BEDTIME 09/28/20 11/20/22 Unknown History mL) subcutaneous pen anastrozole 1 mg tablet 1 mg PO DAILY 02/16/21 11/20/22 Unknown History dapagliflozin propanediol 10 mg 10 mg PO QAM 05/08/21 11/20/22 Unknown History tablet (Farxiga) losartan 50 mg tablet 50 mg PO DAILY 09/14/21 11/20/22 Unknown History amlodipine 5 mg tablet 5 mg PO QAM 12/02/23 12/02/23 Unknown History anastrozole 1 mg tablet 1 mg PO DAILY 12/02/23 12/02/23 Unknown History aspirin 81 mg chewable tablet 1 tab PO QAM 12/02/23 12/02/23 Unknown History cetirizine 5 mg tablet 5 mg PO BEDTIME 12/02/23 12/02/23 Unknown History divalproex 500 mg tablet,delayed 500 mg PO BEDTIME 12/02/23 12/02/23 Unknown History release ferrous sulfate 325 mg (65 mg 325 mg PO QAM 12/02/23 12/02/23 Unknown History iron) tablet (FeroSul) furosemide 20 mg tablet (Lasix) 20 mg PO DAILY 12/02/23 12/02/23 Unknown History insulin glargine 100 unit/mL 6 unit subcut BEDTIME 12/02/23 12/02/23 Unknown History subcutaneous solution insulin lispro 100 unit/mL 1 sliding scale dose subcut 12/02/23 12/02/23 Unknown History subcutaneous solution USEASDIRECTD levetiracetam 500 mg tablet 500 mg PO BID 12/02/23 12/02/23 Unknown History losartan 100 mg tablet 100 mg PO DAILY 12/02/23 12/02/23 Unknown History losartan 100 mg tablet 100 mg PO DAILY 12/02/23 12/02/23 Unknown History magnesium oxide 400 mg PO BID 12/02/23 12/02/23 Unknown History mirtazapine 30 mg disintegrating 30 mg PO BEDTIME 12/02/23 12/02/23 Unknown History tablet multivitamin with minerals 1 tab PO DAILY 12/02/23 12/02/23 Unknown History pantoprazole 40 mg tablet,delayed 40 mg PO DAILY 12/02/23 12/02/23 Unknown History release risperidone 0.5 mg tablet 0.5 mg PO BID PRN Agitation 12/02/23 12/02/23 Unknown History risperidone 2 mg tablet 2 mg PO BID 12/02/23 12/02/23 Unknown History simvastatin 20 mg tablet 20 mg PO BEDTIME 12/02/23 12/02/23 Unknown History thiamine HCl (vitamin B1) 100 mg 100 mg PO QAM 12/02/23 12/02/23 Unknown History tablet trazodone 50 mg tablet 50 mg PO BEDTIME PRN insomnia 12/02/23 12/02/23 Unknown History vancomycin 125 mg capsule See Rx Instructions .Route .COMPLEX 12/02/23 12/02/23 Unknown History (Vancocin) Exam Airway Mallampati Class: II TM Dist: >3cm Neck ROM: Limited Loose/Missing/Broken Teeth: Yes, Upper and Lower Heart: RRR Lungs: CTA Assessment and Plan Assessment Anesthesia Assessment: Anesthesia Plan Discussed and Chart Reviewed Final Anesthetic Review NPO: Yes ASA Class: III Final Preanesthetic Review: Meds/Allgs Chart Reviewed, Consent Obtained/Reviewed and Anes Risks/Benef Reviewed Patient Risk: Intermediate Procedure Risk: Intermediate Anesthetic Plan Anesthetic Plan: GA Disposition: Standard PACU Documented by User: Narda Nicole MD [facility] Active Problems Active Problems: All Active Problems Catatonia (Acute) Fixed constriction of pupil (Acute) Major depressive disorder with psychotic features (Acute) Dark stools (Acute) Routine medical exam (Acute) Essential hypertension (Acute) Type 2 diabetes mellitus with unspecified complications (Acute) Aortic valve sclerosis (Acute) Murmur (Acute) CKD (chronic kidney disease) stage 3, GFR 30-59 ml/min (Acute) Vitamin D deficiency (Acute) HLD (hyperlipidemia) (Acute) HTN (hypertension) (Acute) T2DM (type 2 diabetes mellitus) (Acute) Past Medical History Medical History Cirrhosis Hypothyroidism Breast cancer Hx of Clostridium difficile infection (HFpEF) heart failure with preserved ejection fraction Murmur CKD (chronic kidney disease) stage 3, GFR 30-59 ml/min Vitamin D deficiency HLD (hyperlipidemia) HTN (hypertension) T2DM (type 2 diabetes mellitus) Family History Family History Father Alzheimer disease Stroke Mother Breast cancer Family history of problems with anesthesia: No Surgical History Surgical History Hx of cataract surgery History of lumpectomy of right breast History of mastectomy History of Problems with Anesthesia: No Social History Social History Household Members: Family Household Members Other:: son Alcohol intake: never Comment: 1:1 observation Patient Tobacco Use Status: Never used Tobacco Use of substances other than those prescribed or required for medical reasons: Unable to respond Last Used Substance Other:: unknown, unable to respond, she is nonsensical and delusional when she does Currently Displaying Signs/Symptoms of Drug Intoxication Withdrawal: No Other Past Substance Use Problem:: unknown, unable to respond, she is nonsensical and delusional when she does Spiritual Healthcare Practices: unknown, unable to respond, she is nonsensical and delusional when she does respond [facility]: unknown, unable to respond, she is nonsensical and delusional when she does respond Cultural Healthcare Practices: unknown, unable to respond, she is nonsensical and delusional when she does respond Advance Directives: No Advance Directives Information Provided: No Do you have thoughts of harming others: None Do you have a plan to hurt others: No Plan Recently lost weight without trying: Unsure Patient : No : No Poor oral hygiene: No service: No Sexual orientation: Straight/Heterosexual Meds Allergies Allergy/AdvReac Type Severity Reaction Status Date / Time atropine Allergy Unknown Shortness Verified 12/02/23 23:30 of Breath enoxaparin [From Lovenox] Allergy Unknown Unknown Verified 12/02/23 23:30 penicillin V Allergy Unknown Unknown Verified 03/19/23 07:30 pseudoephedrine [Aprodine] Allergy Unknown Unknown Verified 03/19/23 07:30 triprolidine [Aprodine] Allergy Unknown Unknown Verified 03/19/23 07:30 Active Medications: Current Medications Acetaminophen (Acetaminophen 325 Mg Tablet) 650 mg PO Q6H PRN PRN Reason: Headache/Pain Mild Scale (1-3) Al Hydroxide/Mg Hydroxide (Magnesium Hydrox/Alum Hydrox 30 Ml Oral.Susp) 30 ml PO Q6H PRN PRN Reason: Heartburn/Nausea Amlodipine Besylate (Amlodipine Besylate 5 Mg Tablet) 5 mg PO DAILY TOVA; Pro tocol Last Admin: 12/10/23 10:12 Dose: Not Given Anastrozole (Anastrozole 1 Mg Tablet) 1 mg PO DAILY [facility] Last Admin: 12/10/23 10:12 Dose: Not Given Aspirin (Aspirin 81 Mg Tab.Chew) 81 mg PO DAILY [facility] Last Admin: 12/10/23 10:12 Dose: Not Given Atorvastatin Calcium (Atorvastatin Calcium 10 Mg Tablet) 10 mg PO BEDTIME [facility] Last Admin: 12/10/23 21:07 Dose: 10 mg Cefuroxime Axetil (Cefuroxime Axetil 250 Mg Tablet) 250 mg PO Q12H [facility] Last Admin: 12/10/23 21:07 Dose: 250 mg Divalproex Sodium (Divalproex Sodium 500 Mg Tablet.) 500 mg PO BEDTIME [facility] Last Admin: 12/09/23 20:58 Dose: 500 mg Ferrous Sulfate (Ferrous Sulfate 324 Mg Tablet.) 324 mg PO DAILY [facility] Last Admin: 12/10/23 10:13 Dose: Not Given Furosemide (Furosemide 20 Mg Tablet) 20 mg PO DAILY [facility]; Protocol Last Admin: 12/10/23 10:13 Dose: Not Given Glucose (Glucose Gel 15 Gm Gel..Gram.) 15 gm PO Q15M PRN; Protocol PRN Reason: per Hypoglycemia Standing Ord. Dextrose (D10) 250 mls @ 750 mls/hr IV Q15M PRN; Protocol PRN Reason: per Hypoglycemia Standing Ord. Lactated Ringer's (Lr) 1,000 mls @ 50 mls/hr IVCONT .Q20H [facility] Last Admin: 12/11/23 07:01 Dose: 50 mls/hr Insulin Glargine (Insulin Glargine,Hum.Rec.Anlog 100 Unit/Ml 10 Ml Vial) 6 unit SUBCUT BEDTIME [facility] Last Admin: 12/10/23 21:09 Dose: Not Given Insulin Human Lispro (Insulin Lispro 100 Unit/Ml 3 Ml Vial) 0 unit SUBCUT QIDACHS [facility]; Protocol Last Admin: 12/11/23 08:03 Dose: Not Given Levetiracetam (Levetiracetam 500 Mg Tablet) 500 mg PO BID [facility] Last Admin: 12/10/23 10:13 Dose: Not Given Loratadine (Loratadine 10 Mg Tablet) 10 mg PO BEDTIME [facility] Last Admin: 12/10/23 21:11 Dose: 10 mg Losartan Potassium (Losartan Potassium 50 Mg Tablet) 100 mg PO DAILY [facility]; Protocol Last Admin: 12/10/23 10:13 Dose: Not Given Magnesium Hydroxide (Milk Of Magnesia 30 Ml Oral.Susp) 30 ml PO DAILY PRN PRN Reason: Constipation Magnesium Oxide (Magnesium Oxide 400 Mg Tablet) 400 mg PO BID [facility] Last Admin: 12/10/23 21:07 Dose: 400 mg Mirtazapine (Mirtazapine 30 Mg Tablet) 30 mg PO BEDTIME [facility] Last Admin: 12/10/23 21:07 Dose: 30 mg Multivitamins/Vitamin C (Multivitamin Tablet) 1 tab PO DAILY [facility] Last Admin: 12/10/23 10:13 Dose: Not Given Nicotine Polacrilex (Nicotine Polacrilex 2 Mg Gum) 4 mg BUCCAL Q2H PRN PRN Reason: Nicotine Cravings Omeprazole (Omeprazole 20 Mg Capsule.Dr) 20 mg PO DAILY@0630 [facility] Last Admin: 12/11/23 06:25 Dose: Not Given Risperidone (Risperidone 0.5 Mg Tablet) 0.5 mg PO BID PRN PRN Reason: Restlessness Thiamine HCl (Thiamine Hcl 100 Mg Tablet) 100 mg PO DAILY [facility] Last Admin: 12/10/23 10:13 Dose: Not Given Trazodone HCl (Trazodone Hcl 50 Mg Tablet) 50 mg PO BEDTIME PRN PRN Reason: Insomnia Last Admin: 12/08/23 22:06 Dose: 50 mg Vancomycin HCl (Vancomycin Hcl Oral Solution 125 Mg/5 Ml Soln.Recon) 125 mg PO Q6H [facility] Last Admin: 12/11/23 02:46 Dose: Not Given Home Medications ?Medication ?Instructions ?Recorded ?Confirmed ?Last Taken ?Type ascorbate calcium (vitamin C) 500 500 mg PO DAILY 03/24/20 11/20/22 Unknown History mg tablet fluoxetine 20 mg capsule 40 mg PO DAILY 03/24/20 11/20/22 Unknown History levothyroxine 100 mcg tablet 100 mcg PO QAM 03/24/20 11/20/22 Unknown History mirtazapine 30 mg tablet 30 mg PO BEDTIME 03/24/20 11/20/22 Unknown History omeprazole 20 mg capsule,delayed 20 mg PO DAILY 03/24/20 11/20/22 Unknown History release risperidone 1 mg tablet 1 mg PO BEDTIME 03/24/20 11/20/22 Unknown History insulin glargine 100 unit/mL (3 30 unit subcut BEDTIME 09/28/20 11/20/22 Unknown History mL) subcutaneous pen anastrozole 1 mg tablet 1 mg PO DAILY 02/16/21 11/20/22 Unknown History dapagliflozin propanediol 10 mg 10 mg PO QAM 05/08/21 11/20/22 Unknown History tablet (Farxiga) losartan 50 mg tablet 50 mg PO DAILY 09/14/21 11/20/22 Unknown History amlodipine 5 mg tablet 5 mg PO QAM 12/02/23 12/02/23 Unknown History anastrozole 1 mg tablet 1 mg PO DAILY 12/02/23 12/02/23 Unknown History aspirin 81 mg chewable tablet 1 tab PO QAM 12/02/23 12/02/23 Unknown History cetirizine 5 mg tablet 5 mg PO BEDTIME 12/02/23 12/02/23 Unknown History divalproex 500 mg tablet,delayed 500 mg PO BEDTIME 12/02/23 12/02/23 Unknown History release ferrous sulfate 325 mg (65 mg 325 mg PO QAM 12/02/23 12/02/23 Unknown History iron) tablet (FeroSul) furosemide 20 mg tablet (Lasix) 20 mg PO DAILY 12/02/23 12/02/23 Unknown History insulin glargine 100 unit/mL 6 unit subcut BEDTIME 12/02/23 12/02/23 Unknown History subcutaneous solution insulin lispro 100 unit/mL 1 sliding scale dose subcut 12/02/23 12/02/23 Unknown History subcutaneous solution USEASDIRECTD levetiracetam 500 mg tablet 500 mg PO BID 12/02/23 12/02/23 Unknown History losartan 100 mg tablet 100 mg PO DAILY 12/02/23 12/02/23 Unknown History losartan 100 mg tablet 100 mg PO DAILY 12/02/23 12/02/23 Unknown History magnesium oxide 400 mg PO BID 12/02/23 12/02/23 Unknown History mirtazapine 30 mg disintegrating 30 mg PO BEDTIME 12/02/23 12/02/23 Unknown History tablet multivitamin with minerals 1 tab PO DAILY 12/02/23 12/02/23 Unknown History pantoprazole 40 mg tablet,delayed 40 mg PO DAILY 12/02/23 12/02/23 Unknown History release risperidone 0.5 mg tablet 0.5 mg PO BID PRN Agitation 12/02/23 12/02/23 Unknown History risperidone 2 mg tablet 2 mg PO BID 12/02/23 12/02/23 Unknown History simvastatin 20 mg tablet 20 mg PO BEDTIME 12/02/23 12/02/23 Unknown History thiamine HCl (vitamin B1) 100 mg 100 mg PO QAM 12/02/23 12/02/23 Unknown History tablet trazodone 50 mg tablet 50 mg PO BEDTIME PRN insomnia 12/02/23 12/02/23 Unknown History vancomycin 125 mg capsule See Rx Instructions .Route .COMPLEX 12/02/23 12/02/23 Unknown History (Vancocin) Exam Height,Weight and Vital Signs: Height 4 ft 11 in Weight 45.2 kg Last Vital Signs Temp 97.5 F 12/11/23 06:38 Pulse 55 12/11/23 06:38 Resp 16 12/11/23 06:38 BP 113/52 L 12/11/23 06:38 Pulse Ox 94 12/11/23 06:38 O2 Del Method Room Air 12/11/23 06:38 Pertinent Lab Results Pertinent Lab Results: Laboratory Tests 12/02/23 12/03/23 12/03/23 22:55 06:35 08:01 WBC RBC Hgb Hct MCV MCH MCHC RDW Plt Count MPV Immature Gran % (Auto) Neut % (Auto) Lymph % (Auto) [place] % (Auto) Eos % (Auto) Baso % (Auto) Lymph # (Auto) [place] # (Auto) Eos # (Auto) Baso # (Auto) Abs Immat Gran (auto) Absolute Neuts (auto) Absolute Nucleated RBC Nucleated RBC % (auto) Sodium 134 L Potassium 4.0 Chloride 98 Carbon Dioxide 27 Anion Gap 13 BUN 21 H Creatinine 0.88 Estim Creat Clear Calc TNP Estimated GFR > 60 POC Glucose 296 H 212 H Random Glucose Fasting Glucose 236 H Estimat Average Glucose 169 Hemoglobin A1c % 7.5 H Calcium 10.2 Total Bilirubin 0.5 Direct Bilirubin AST 19 ALT 16 Alkaline Phosphatase 93 Ammonia Total Protein 8.7 H Albumin 3.5 Triglycerides 105 Cholesterol 182 LDL Cholesterol, Calc 93 HDL Cholesterol 68 Vitamin B12 Folate TSH Urine Color Urine Appearance Urine pH Ur Specific [place] Urine Protein Urine Glucose (UA) Urine Ketones Urine Blood Urine Nitrite Ur Leukocyte Esterase Urine RBC Urine WBC Ur Squamous Epith Cells Urine Bacteria Hyaline Casts Granular Casts Urine Yeast Stool Occult Blood Stl C. cayetanensis PCR Stool Rotavirus A PCR Stl Adenov F 40/41 PCR Stool Astrovirus (PCR) Stool Campylobacter PCR Stool Cryptosporidium PCR Stl Sh Tox Pr E STEC PCR Stool E coli O157 PCR Stl Enterotoxigenic E PCR Stool EPEC (PCR) Stool EAEC (PCR) Stl E. histolytica PCR Stool Giardia Lamblia PCR Stl P. shigelloides PCR Stool Salmonella PCR Stool Sapovirus (PCR) Stl Shigella/EIEC PCR St Y.enterocolitica PCR Stool Vibrio (PCR) Stl Vibrio cholerae PCR Stl Norovirus GI/GII PCR C. difficile Tox B Gene C. difficile Toxin A&B C. difficile Interpret 12/03/23 12/03/23 12/03/23 10:29 11:31 11:45 WBC 4.6 L RBC 3.96 L Hgb 10.9 L Hct 33.1 L MCV 83.6 MCH 27.5 MCHC 32.9 RDW 14.9 Plt Count 116 L MPV 9.5 Immature Gran % (Auto) 0.2 Neut % (Auto) 70.4 Lymph % (Auto) 17.[address] [place] % (Auto) 10.4 Eos % (Auto) 1.1 Baso % (Auto) 0.2 Lymph # (Auto) 0.[address] [place] # (Auto) 0.5 Eos # (Auto) 0.1 Baso # (Auto) 0.0 Abs Immat Gran (auto) 0.01 Absolute Neuts (auto) 3.3 Absolute Nucleated RBC 0.000 Nucleated RBC % (auto) 0.0 Sodium Potassium Chloride Carbon Dioxide Anion Gap BUN Creatinine Estim Creat Clear Calc Estimated GFR POC Glucose 234 H Random Glucose Fasting Glucose Estimat Average Glucose Hemoglobin A1c % Calcium Total Bilirubin Direct Bilirubin AST ALT Alkaline Phosphatase Ammonia 55 Total Protein Albumin Triglycerides Cholesterol LDL Cholesterol, Calc HDL Cholesterol Vitamin B12 Folate TSH Urine Color Urine Appearance Urine pH Ur Specific [place] Urine Protein Urine Glucose (UA) Urine Ketones Urine Blood Urine Nitrite Ur Leukocyte Esterase Urine RBC Urine WBC Ur Squamous Epith Cells Urine Bacteria Hyaline Casts Granular Casts Urine Yeast Stool Occult Blood Stl C. cayetanensis PCR Stool Rotavirus A PCR Stl Adenov F 40/41 PCR Stool Astrovirus (PCR) Stool Campylobacter PCR Stool Cryptosporidium PCR Stl Sh Tox Pr E STEC PCR Stool E coli O157 PCR Stl Enterotoxigenic E PCR Stool EPEC (PCR) Stool EAEC (PCR) Stl E. histolytica PCR Stool Giardia Lamblia PCR Stl P. shigelloides PCR Stool Salmonella PCR Stool Sapovirus (PCR) Stl Shigella/EIEC PCR St Y.enterocolitica PCR Stool Vibrio (PCR) Stl Vibrio cholerae PCR Stl Norovirus GI/GII PCR C. difficile Tox B Gene C. difficile Toxin A&B C. difficile Interpret 12/03/23 12/03/23 12/03/23 16:05 16:31 17:30 WBC RBC Hgb Hct MCV MCH MCHC RDW Plt Count MPV Immature Gran % (Auto) Neut % (Auto) Lymph % (Auto) [place] % (Auto) Eos % (Auto) Baso % (Auto) Lymph # (Auto) [place] # (Auto) Eos # (Auto) Baso # (Auto) Abs Immat Gran (auto) Absolute Neuts (auto) Absolute Nucleated RBC Nucleated RBC % (auto) Sodium Potassium Chloride Carbon Dioxide Anion Gap BUN Creatinine Estim Creat Clear Calc Estimated GFR POC Glucose 217 H Random Glucose Fasting Glucose Estimat Average Glucose Hemoglobin A1c % Calcium Total Bilirubin Direct Bilirubin AST ALT Alkaline Phosphatase Ammonia Total Protein Albumin Triglycerides Cholesterol LDL Cholesterol, Calc HDL Cholesterol Vitamin B12 Folate TSH Urine Color Yellow Urine Appearance Cloudy Urine pH 5.5 Ur Specific [place] 1.020 Urine Protein 30 (1+) H Urine Glucose (UA) Negative Urine Ketones Negative Urine Blood Moderate (2+) H Urine Nitrite Negative Ur Leukocyte Esterase Moderate (2+) H Urine RBC >20 H Urine WBC >50 H Ur Squamous Epith Cells 3-5 Urine Bacteria 4+ Hyaline Casts >20 Granular Casts Present Urine Yeast Present Stool Occult Blood NEGATIVE Stl C. cayetanensis PCR Not Detected Stool Rotavirus A PCR Not Detected Stl Adenov F 40/41 PCR Not Detected Stool Astrovirus (PCR) Not Detected Stool Campylobacter PCR Not Detected Stool Cryptosporidium PCR Not Detected Stl Sh Tox Pr E STEC PCR Not Detected Stool E coli O157 PCR Not applicable Stl Enterotoxigenic E PCR Not Detected Stool EPEC (PCR) Not Detected Stool EAEC (PCR) Not Detected Stl E. histolytica PCR Not Detected Stool Giardia Lamblia PCR Not Detected Stl P. shigelloides PCR Not Detected Stool Salmonella PCR Not Detected Stool Sapovirus (PCR) Not Detected Stl Shigella/EIEC PCR Not Detected St Y.enterocolitica PCR Not Detected Stool Vibrio (PCR) Not Detected Stl Vibrio cholerae PCR Not Detected Stl Norovirus GI/GII PCR Not Detected C. difficile Tox B Gene POSITIVE A* C. difficile Toxin A&B Positive A* C. difficile Interpret SEE NOTE 12/03/23 12/04/23 12/04/23 21:03 06:21 11:26 WBC RBC Hgb Hct MCV MCH MCHC RDW Plt Count MPV Immature Gran % (Auto) Neut % (Auto) Lymph % (Auto) [place] % (Auto) Eos % (Auto) Baso % (Auto) Lymph # (Auto) [place] # (Auto) Eos # (Auto) Baso # (Auto) Abs Immat Gran (auto) Absolute Neuts (auto) Absolute Nucleated RBC Nucleated RBC % (auto) Sodium Potassium Chloride Carbon Dioxide Anion Gap BUN Creatinine Estim Creat Clear Calc Estimated GFR POC Glucose 207 H 176 H 210 H Random Glucose Fasting Glucose Estimat Average Glucose Hemoglobin A1c % Calcium Total Bilirubin Direct Bilirubin AST ALT Alkaline Phosphatase Ammonia Total Protein Albumin Triglycerides Cholesterol LDL Cholesterol, Calc HDL Cholesterol Vitamin B12 Folate TSH Urine Color Urine Appearance Urine pH Ur Specific [place] Urine Protein Urine Glucose (UA) Urine Ketones Urine Blood Urine Nitrite Ur Leukocyte Esterase Urine RBC Urine WBC Ur Squamous Epith Cells Urine Bacteria Hyaline Casts Granular Casts Urine Yeast Stool Occult Blood Stl C. cayetanensis PCR Stool Rotavirus A PCR Stl Adenov F PCR Stool Astrovirus (PCR) Stool Campylobacter PCR Stool Cryptosporidium PCR Stl Sh Tox Pr E STEC PCR Stool E coli O157 PCR Stl Enterotoxigenic E PCR Stool EPEC (PCR) Stool EAEC (PCR) Stl E. histolytica PCR Stool Giardia Lamblia PCR Stl P. shigelloides PCR Stool Salmonella PCR Stool Sapovirus (PCR) Stl Shigella/EIEC PCR St Y.enterocolitica PCR Stool Vibrio (PCR) Stl Vibrio cholerae PCR Stl Norovirus GI/GII PCR C. difficile Tox B Gene C. difficile Toxin A&B C. difficile Interpret 12/04/23 12/04/23 12/05/23 16:34 20:17 06:35 WBC RBC Hgb Hct MCV MCH MCHC RDW Plt Count MPV Immature Gran % (Auto) Neut % (Auto) Lymph % (Auto) [place] % (Auto) Eos % (Auto) Baso % (Auto) Lymph # (Auto) [place] # (Auto) Eos # (Auto) Baso # (Auto) Abs Immat Gran (auto) Absolute Neuts (auto) Absolute Nucleated RBC Nucleated RBC % (auto) Sodium Potassium Chloride Carbon Dioxide Anion Gap BUN Creatinine Estim Creat Clear Calc Estimated GFR POC Glucose 176 H 154 H 146 H Random Glucose Fasting Glucose Estimat Average Glucose Hemoglobin A1c % Calcium Total Bilirubin Direct Bilirubin AST ALT Alkaline Phosphatase Ammonia Total Protein Albumin Triglycerides Cholesterol LDL Cholesterol, Calc HDL Cholesterol Vitamin B12 Folate TSH Urine Color Urine Appearance Urine pH Ur Specific [place] Urine Protein Urine Glucose (UA) Urine Ketones Urine Blood Urine Nitrite Ur Leukocyte Esterase Urine RBC Urine WBC Ur Squamous Epith Cells Urine Bacteria Hyaline Casts Granular Casts Urine Yeast Stool Occult Blood Stl C. cayetanensis PCR Stool Rotavirus A PCR Stl Adenov PCR Stool Astrovirus (PCR) Stool Campylobacter PCR Stool Cryptosporidium PCR Stl Sh Tox Pr E STEC PCR Stool E coli O157 PCR Stl Enterotoxigenic E PCR Stool EPEC (PCR) Stool EAEC (PCR) Stl E. histolytica PCR Stool Giardia Lamblia PCR Stl P. shigelloides PCR Stool Salmonella PCR Stool Sapovirus (PCR) Stl Shigella/EIEC PCR St Y.enterocolitica PCR Stool Vibrio (PCR) Stl Vibrio cholerae PCR Stl Norovirus GI/GII PCR C. difficile Tox B Gene C. difficile Toxin A&B C. difficile Interpret 12/05/23 12/05/23 12/05/23 11:08 16:36 20:27 WBC RBC Hgb Hct MCV MCH MCHC RDW Plt Count MPV Immature Gran % (Auto) Neut % (Auto) Lymph % (Auto) [place] % (Auto) Eos % (Auto) Baso % (Auto) Lymph # (Auto) [place] # (Auto) Eos # (Auto) Baso # (Auto) Abs Immat Gran (auto) Absolute Neuts (auto) Absolute Nucleated RBC Nucleated RBC % (auto) Sodium Potassium Chloride Carbon Dioxide Anion Gap BUN Creatinine Estim Creat Clear Calc Estimated GFR POC Glucose 164 H 162 H 198 H Random Glucose Fasting Glucose Estimat Average Glucose Hemoglobin A1c % Calcium Total Bilirubin Direct Bilirubin AST ALT Alkaline Phosphatase Ammonia Total Protein Albumin Triglycerides Cholesterol LDL Cholesterol, Calc HDL Cholesterol Vitamin B12 Folate TSH Urine Color Urine Appearance Urine pH Ur Specific Devine Urine Protein Urine Glucose (UA) Urine Ketones Urine Blood Urine Nitrite Ur Leukocyte Esterase Urine RBC Urine WBC Ur Squamous Epith Cells Urine Bacteria Hyaline Casts Granular Casts Urine Yeast Stool Occult Blood Stl C. cayetanensis PCR Stool Rotavirus A PCR Stl Adenov F 40/41 PCR Stool Astrovirus (PCR) Stool Campylobacter PCR Stool Cryptosporidium PCR Stl Sh Tox Pr E STEC PCR Stool E coli O157 PCR Stl Enterotoxigenic E PCR Stool EPEC (PCR) Stool EAEC (PCR) Stl E. histolytica PCR Stool Giardia Lamblia PCR Stl P. shigelloides PCR Stool Salmonella PCR Stool Sapovirus (PCR) Stl Shigella/EIEC PCR St Y.enterocolitica PCR Stool Vibrio (PCR) Stl Vibrio cholerae PCR Stl Norovirus GI/GII PCR C. difficile Tox B Gene C. difficile Toxin A&B C. difficile Interpret 12/06/23 12/06/23 12/06/23 06:22 07:57 11:30 WBC RBC Hgb Hct MCV MCH MCHC RDW Plt Count MPV Immature Gran % (Auto) Neut % (Auto) Lymph % (Auto) [place] % (Auto) Eos % (Auto) Baso % (Auto) Lymph # (Auto) [place] # (Auto) Eos # (Auto) Baso # (Auto) Abs Immat Gran (auto) Absolute Neuts (auto) Absolute Nucleated RBC Nucleated RBC % (auto) Sodium 142 Potassium 4.5 Chloride 103 Carbon Dioxide 30 H Anion Gap 14 BUN 32 H Creatinine 0.88 Estim Creat Clear Calc 37.7 Estimated GFR > 60 POC Glucose 122 H 135 H Random Glucose Fasting Glucose 137 H Estimat Average Glucose Hemoglobin A1c % Calcium 10.7 H Total Bilirubin 0.5 Direct Bilirubin AST 24 ALT 15 Alkaline Phosphatase 97 Ammonia Total Protein 9.2 H Albumin 3.6 Triglycerides Cholesterol LDL Cholesterol, Calc HDL Cholesterol Vitamin B12 1504 H Folate 14.9 TSH 2.88 Urine Color Urine Appearance Urine pH Ur Specific Devine Urine Protein Urine Glucose (UA) Urine Ketones Urine Blood Urine Nitrite Ur Leukocyte Esterase Urine RBC Urine WBC Ur Squamous Epith Cells Urine Bacteria Hyaline Casts Granular Casts Urine Yeast Stool Occult Blood Stl C. cayetanensis PCR Stool Rotavirus A PCR Stl Adenov F 40/41 PCR Stool Astrovirus (PCR) Stool Campylobacter PCR Stool Cryptosporidium PCR Stl Sh Tox Pr E STEC PCR Stool E coli O157 PCR Stl Enterotoxigenic E PCR Stool EPEC (PCR) Stool EAEC (PCR) Stl E. histolytica PCR Stool Giardia Lamblia PCR Stl P. shigelloides PCR Stool Salmonella PCR Stool Sapovirus (PCR) Stl Shigella/EIEC PCR St Y.enterocolitica PCR Stool Vibrio (PCR) Stl Vibrio cholerae PCR Stl Norovirus GI/GII PCR C. difficile Tox B Gene C. difficile Toxin A&B C. difficile Interpret 12/06/23 12/06/23 12/07/23 16:30 19:51 06:57 WBC RBC Hgb Hct MCV MCH MCHC RDW Plt Count MPV Immature Gran % (Auto) Neut % (Auto) Lymph % (Auto) [place] % (Auto) Eos % (Auto) Baso % (Auto) Lymph # (Auto) [place] # (Auto) Eos # (Auto) Baso # (Auto) Abs Immat Gran (auto) Absolute Neuts (auto) Absolute Nucleated RBC Nucleated RBC % (auto) Sodium Potassium Chloride Carbon Dioxide Anion Gap BUN Creatinine Estim Creat Clear Calc Estimated GFR POC Glucose 173 H 208 H 151 H Random Glucose Fasting Glucose Estimat Average Glucose Hemoglobin A1c % Calcium Total Bilirubin Direct Bilirubin AST ALT Alkaline Phosphatase Ammonia Total Protein Albumin Triglycerides Cholesterol LDL Cholesterol, Calc HDL Cholesterol Vitamin B12 Folate TSH Urine Color Urine Appearance Urine pH Ur Specific Devine Urine Protein Urine Glucose (UA) Urine Ketones Urine Blood Urine Nitrite Ur Leukocyte Esterase Urine RBC Urine WBC Ur Squamous Epith Cells Urine Bacteria Hyaline Casts Granular Casts Urine Yeast Stool Occult Blood Stl C. cayetanensis PCR Stool Rotavirus A PCR Stl Adenov F PCR Stool Astrovirus (PCR) Stool Campylobacter PCR Stool Cryptosporidium PCR Stl Sh Tox Pr E STEC PCR Stool E coli O157 PCR Stl Enterotoxigenic E PCR Stool EPEC (PCR) Stool EAEC (PCR) Stl E. histolytica PCR Stool Giardia Lamblia PCR Stl P. shigelloides PCR Stool Salmonella PCR Stool Sapovirus (PCR) Stl Shigella/EIEC PCR St Y.enterocolitica PCR Stool Vibrio (PCR) Stl Vibrio cholerae PCR Stl Norovirus GI/GII PCR C. difficile Tox B Gene C. difficile Toxin A&B C. difficile Interpret 12/07/23 12/07/23 12/07/23 11:09 16:11 19:32 WBC RBC Hgb Hct MCV MCH MCHC RDW Plt Count MPV Immature Gran % (Auto) Neut % (Auto) Lymph % (Auto) [place] % (Auto) Eos % (Auto) Baso % (Auto) Lymph # (Auto) [place] # (Auto) Eos # (Auto) Baso # (Auto) Abs Immat Gran (auto) Absolute Neuts (auto) Absolute Nucleated RBC Nucleated RBC % (auto) Sodium Potassium Chloride Carbon Dioxide Anion Gap BUN Creatinine Estim Creat Clear Calc Estimated GFR POC Glucose 167 H 154 H 225 H Random Glucose Fasting Glucose Estimat Average Glucose Hemoglobin A1c % Calcium Total Bilirubin Direct Bilirubin AST ALT Alkaline Phosphatase Ammonia Total Protein Albumin Triglycerides Cholesterol LDL Cholesterol, Calc HDL Cholesterol Vitamin B12 Folate TSH Urine Color Urine Appearance Urine pH Ur Specific Devine Urine Protein Urine Glucose (UA) Urine Ketones Urine Blood Urine Nitrite Ur Leukocyte Esterase Urine RBC Urine WBC Ur Squamous Epith Cells Urine Bacteria Hyaline Casts Granular Casts Urine Yeast Stool Occult Blood Stl C. cayetanensis PCR Stool Rotavirus A PCR Stl Adenov F PCR Stool Astrovirus (PCR) Stool Campylobacter PCR Stool Cryptosporidium PCR Stl Sh Tox Pr E STEC PCR Stool E coli O157 PCR Stl Enterotoxigenic E PCR Stool EPEC (PCR) Stool EAEC (PCR) Stl E. histolytica PCR Stool Giardia Lamblia PCR Stl P. shigelloides PCR Stool Salmonella PCR Stool Sapovirus (PCR) Stl Shigella/EIEC PCR St Y.enterocolitica PCR Stool Vibrio (PCR) Stl Vibrio cholerae PCR Stl Norovirus GI/GII PCR C. difficile Tox B Gene C. difficile Toxin A&B C. difficile Interpret 12/08/23 12/08/23 12/08/23 06:23 11:15 16:29 WBC RBC Hgb Hct MCV MCH MCHC RDW Plt Count MPV Immature Gran % (Auto) Neut % (Auto) Lymph % (Auto) [place] % (Auto) Eos % (Auto) Baso % (Auto) Lymph # (Auto) [place] # (Auto) Eos # (Auto) Baso # (Auto) Abs Immat Gran (auto) Absolute Neuts (auto) Absolute Nucleated RBC Nucleated RBC % (auto) Sodium Potassium Chloride Carbon Dioxide Anion Gap BUN Creatinine Estim Creat Clear Calc Estimated GFR POC Glucose 150 H 171 H 131 H Random Glucose Fasting Glucose Estimat Average Glucose Hemoglobin A1c % Calcium Total Bilirubin Direct Bilirubin AST ALT Alkaline Phosphatase Ammonia Total Protein Albumin Triglycerides Cholesterol LDL Cholesterol, Calc HDL Cholesterol Vitamin B12 Folate TSH Urine Color Urine Appearance Urine pH Ur Specific Devine Urine Protein Urine Glucose (UA) Urine Ketones Urine Blood Urine Nitrite Ur Leukocyte Esterase Urine RBC Urine WBC Ur Squamous Epith Cells Urine Bacteria Hyaline Casts Granular Casts Urine Yeast Stool Occult Blood Stl C. cayetanensis PCR Stool Rotavirus A PCR Stl Adenov F 40/41 PCR Stool Astrovirus (PCR) Stool Campylobacter PCR Stool Cryptosporidium PCR Stl Sh Tox Pr E STEC PCR Stool E coli O157 PCR Stl Enterotoxigenic E PCR Stool EPEC (PCR) Stool EAEC (PCR) Stl E. histolytica PCR Stool Giardia Lamblia PCR Stl P. shigelloides PCR Stool Salmonella PCR Stool Sapovirus (PCR) Stl Shigella/EIEC PCR St Y.enterocolitica PCR Stool Vibrio (PCR) Stl Vibrio cholerae PCR Stl Norovirus GI/GII PCR C. difficile Tox B Gene C. difficile Toxin A&B C. difficile Interpret 12/08/23 12/08/23 12/09/23 19:07 20:11 06:32 WBC 3.3 L RBC 3.73 L Hgb 10.3 L Hct 32.0 L MCV 85.8 MCH 27.6 MCHC 32.2 RDW 14.2 Plt Count 99 L MPV 10.0 Immature Gran % (Auto) 0.3 Neut % (Auto) 53.2 Lymph % (Auto) 29.7 [place] % (Auto) 15.3 H Eos % (Auto) 1.2 Baso % (Auto) 0.3 Lymph # (Auto) 1.[address] [place] # (Auto) 0.5 Eos # (Auto) 0.0 Baso # (Auto) 0.0 Abs Immat Gran (auto) 0.01 Absolute Neuts (auto) 1.8 L Absolute Nucleated RBC 0.000 Nucleated RBC % (auto) 0.0 Sodium 142 Potassium 4.2 Chloride 104 Carbon Dioxide 30 H Anion Gap 12 BUN 27 H Creatinine 0.82 Estim Creat Clear Calc 40.4 Estimated GFR > 60 POC Glucose 116 H 145 H Random Glucose 114 Fasting Glucose Estimat Average Glucose Hemoglobin A1c % Calcium 10.5 H Total Bilirubin 0.6 Direct Bilirubin AST 25 ALT 14 Alkaline Phosphatase 90 Ammonia Total Protein 8.6 H Albumin 3.4 L Triglycerides Cholesterol LDL Cholesterol, Calc HDL Cholesterol Vitamin B12 Folate TSH Urine Color Urine Appearance Urine pH Ur Specific Dev[place] Urine Protein Urine Glucose (UA) Urine Ketones Urine Blood Urine Nitrite Ur Leukocyte Esterase Urine RBC Urine WBC Ur Squamous Epith Cells Urine Bacteria Hyaline Casts Granular Casts Urine Yeast Stool Occult Blood Stl C. cayetanensis PCR Stool Rotavirus A PCR Stl Adenov F 40/41 PCR Stool Astrovirus (PCR) Stool Campylobacter PCR Stool Cryptosporidium PCR Stl Sh Tox Pr E STEC PCR Stool E coli O157 PCR Stl Enterotoxigenic E PCR Stool EPEC (PCR) Stool EAEC (PCR) Stl E. histolytica PCR Stool Giardia Lamblia PCR Stl P. shigelloides PCR Stool Salmonella PCR Stool Sapovirus (PCR) Stl Shigella/EIEC PCR St Y.enterocolitica PCR Stool Vibrio (PCR) Stl Vibrio cholerae PCR Stl Norovirus GI/GII PCR C. difficile Tox B Gene C. difficile Toxin A&B C. difficile Interpret 12/09/23 12/09/23 12/09/23 09:57 11:34 16:28 WBC 2.8 L RBC 3.68 L Hgb 10.1 L Hct 32.1 L MCV 87.2 MCH 27.4 MCHC 31.5 RDW 14.4 Plt Count 86 L MPV 9.6 Immature Gran % (Auto) 0.0 Neut % (Auto) 56.4 Lymph % (Auto) 29.1 [place] % (Auto) 12.4 H Eos % (Auto) 1.4 Baso % (Auto) 0.7 Lymph # (Auto) 0.[address] [place] # (Auto) 0.4 Eos # (Auto) 0.0 Baso # (Auto) 0.0 Abs Immat Gran (auto) 0.00 Absolute Neuts (auto) 1.6 L Absolute Nucleated RBC 0.000 Nucleated RBC % (auto) 0.0 Sodium 140 Potassium 4.7 Chloride 103 Carbon Dioxide 30 H Anion Gap 12 BUN 30 H Creatinine 0.99 Estim Creat Clear Calc 33.4 Estimated GFR 55 POC Glucose 201 H 143 H Random Glucose 279 H Fasting Glucose Estimat Average Glucose Hemoglobin A1c % Calcium 10.4 H Total Bilirubin 0.4 Direct Bilirubin 0.2 AST 30 ALT 16 Alkaline Phosphatase 96 Ammonia Total Protein 8.4 H Albumin 3.3 L Triglycerides Cholesterol LDL Cholesterol, Calc HDL Cholesterol Vitamin B12 Folate TSH Urine Color Urine Appearance Urine pH Ur Specific [place] Urine Protein Urine Glucose (UA) Urine Ketones Urine Blood Urine Nitrite Ur Leukocyte Esterase Urine RBC Urine WBC Ur Squamous Epith Cells Urine Bacteria Hyaline Casts Granular Casts Urine Yeast Stool Occult Blood Stl C. cayetanensis PCR Stool Rotavirus A PCR Stl Adenov F 40/41 PCR Stool Astrovirus (PCR) Stool Campylobacter PCR Stool Cryptosporidium PCR Stl Sh Tox Pr E STEC PCR Stool E coli O157 PCR Stl Enterotoxigenic E PCR Stool EPEC (PCR) Stool EAEC (PCR) Stl E. histolytica PCR Stool Giardia Lamblia PCR Stl P. shigelloides PCR Stool Salmonella PCR Stool Sapovirus (PCR) Stl Shigella/EIEC PCR St Y.enterocolitica PCR Stool Vibrio (PCR) Stl Vibrio cholerae PCR Stl Norovirus GI/GII PCR C. difficile Tox B Gene C. difficile Toxin A&B C. difficile Interpret 12/09/23 12/10/23 12/10/23 19:52 06:12 08:25 WBC RBC Hgb Hct MCV MCH MCHC RDW Plt Count MPV Immature Gran % (Auto) Neut % (Auto) Lymph % (Auto) [place] % (Auto) Eos % (Auto) Baso % (Auto) Lymph # (Auto) [place] # (Auto) Eos # (Auto) Baso # (Auto) Abs Immat Gran (auto) Absolute Neuts (auto) Absolute Nucleated RBC Nucleated RBC % (auto) Sodium Potassium Chloride Carbon Dioxide Anion Gap BUN Creatinine Estim Creat Clear Calc Estimated GFR POC Glucose 205 H 124 H 146 H Random Glucose Fasting Glucose Estimat Average Glucose Hemoglobin A1c % Calcium Total Bilirubin Direct Bilirubin AST ALT Alkaline Phosphatase Ammonia Total Protein Albumin Triglycerides Cholesterol LDL Cholesterol, Calc HDL Cholesterol Vitamin B12 Folate TSH Urine Color Urine Appearance Urine pH Ur Specific [place] Urine Protein Urine Glucose (UA) Urine Ketones Urine Blood Urine Nitrite Ur Leukocyte Esterase Urine RBC Urine WBC Ur Squamous Epith Cells Urine Bacteria Hyaline Casts Granular Casts Urine Yeast Stool Occult Blood Stl C. cayetanensis PCR Stool Rotavirus A PCR Stl Adenov F 40/41 PCR Stool Astrovirus (PCR) Stool Campylobacter PCR Stool Cryptosporidium PCR Stl Sh Tox Pr E STEC PCR Stool E coli O157 PCR Stl Enterotoxigenic E PCR Stool EPEC (PCR) Stool EAEC (PCR) Stl E. histolytica PCR Stool Giardia Lamblia PCR Stl P. shigelloides PCR Stool Salmonella PCR Stool Sapovirus (PCR) Stl Shigella/EIEC PCR St Y.enterocolitica PCR Stool Vibrio (PCR) Stl Vibrio cholerae PCR Stl Norovirus GI/GII PCR C. difficile Tox B Gene C. difficile Toxin A&B C. difficile Interpret 12/10/23 12/10/23 12/10/23 11:53 16:42 20:01 WBC RBC Hgb Hct MCV MCH MCHC RDW Plt Count MPV Immature Gran % (Auto) Neut % (Auto) Lymph % (Auto) [place] % (Auto) Eos % (Auto) Baso % (Auto) Lymph # (Auto) [place] # (Auto) Eos # (Auto) Baso # (Auto) Abs Immat Gran (auto) Absolute Neuts (auto) Absolute Nucleated RBC Nucleated RBC % (auto) Sodium Potassium Chloride Carbon Dioxide Anion Gap BUN Creatinine Estim Creat Clear Calc Estimated GFR POC Glucose 185 H 164 H 139 H Random Glucose Fasting Glucose Estimat Average Glucose Hemoglobin A1c % Calcium Total Bilirubin Direct Bilirubin AST ALT Alkaline Phosphatase Ammonia Total Protein Albumin Triglycerides Cholesterol LDL Cholesterol, Calc HDL Cholesterol Vitamin B12 Folate TSH Urine Color Urine Appearance Urine pH Ur Specific Devine Urine Protein Urine Glucose (UA) Urine Ketones Urine Blood Urine Nitrite Ur Leukocyte Esterase Urine RBC Urine WBC Ur Squamous Epith Cells Urine Bacteria Hyaline Casts Granular Casts Urine Yeast Stool Occult Blood Stl C. cayetanensis PCR Stool Rotavirus A PCR Stl Adenov F PCR Stool Astrovirus (PCR) Stool Campylobacter PCR Stool Cryptosporidium PCR Stl Sh Tox Pr E STEC PCR Stool E coli O157 PCR Stl Enterotoxigenic E PCR Stool EPEC (PCR) Stool EAEC (PCR) Stl E. histolytica PCR Stool Giardia Lamblia PCR Stl P. shigelloides PCR Stool Salmonella PCR Stool Sapovirus (PCR) Stl Shigella/EIEC PCR St Y.enterocolitica PCR Stool Vibrio (PCR) Stl Vibrio cholerae PCR Stl Norovirus GI/GII PCR C. difficile Tox B Gene C. difficile Toxin A&B C. difficile Interpret 12/11/23 06:00 WBC RBC Hgb Hct MCV MCH MCHC RDW Plt Count MPV Immature Gran % (Auto) Neut % (Auto) Lymph % (Auto) [place] % (Auto) Eos % (Auto) Baso % (Auto) Lymph # (Auto) [place] # (Auto) Eos # (Auto) Baso # (Auto) Abs Immat Gran (auto) Absolute Neuts (auto) Absolute Nucleated RBC Nucleated RBC % (auto) Sodium Potassium Chloride Carbon Dioxide Anion Gap BUN Creatinine Estim Creat Clear Calc Estimated GFR POC Glucose 151 H Random Glucose Fasting Glucose Estimat Average Glucose Hemoglobin A1c % Calcium Total Bilirubin Direct Bilirubin AST ALT Alkaline Phosphatase Ammonia Total Protein Albumin Triglycerides Cholesterol LDL Cholesterol, Calc HDL Cholesterol Vitamin B12 Folate TSH Urine Color Urine Appearance Urine pH Ur Specific [place] Urine Protein Urine Glucose (UA) Urine Ketones Urine Blood Urine Nitrite Ur Leukocyte Esterase Urine RBC Urine WBC Ur Squamous Epith Cells Urine Bacteria Hyaline Casts Granular Casts Urine Yeast Stool Occult Blood Stl C. cayetanensis PCR Stool Rotavirus A PCR Stl Adenov F PCR Stool Astrovirus (PCR) Stool Campylobacter PCR Stool Cryptosporidium PCR Stl Sh Tox Pr E STEC PCR Stool E coli O157 PCR Stl Enterotoxigenic E PCR Stool EPEC (PCR) Stool EAEC (PCR) Stl E. histolytica PCR Stool Giardia Lamblia PCR Stl P. shigelloides PCR Stool Salmonella PCR Stool Sapovirus (PCR) Stl Shigella/EIEC PCR St Y.enterocolitica PCR Stool Vibrio (PCR) Stl Vibrio cholerae PCR Stl Norovirus GI/GII PCR C. difficile Tox B Gene C. difficile Toxin A&B C. difficile Interpret Assessment and Plan Final Anesthetic Review Family History of Problems with Anesthesia: No History of Problems with Anesthesia: No
--- NOTE | 2023-12-11 09:43 | PM.EVENT ---
Event Note Date of Service: 12/11/23 Event Note: Patient was brought down to the PACU for ECT. Although reportedly ECT had previously been discussed with the healthcare proxy the patient's was not prepared to give full consent when risk were discussed with anesthesia patient was returned to the unit with plan for Dr. Yung to follow-up regarding consent from healthcare proxy he also had wanted his son involved. Patient's certainly remains a candidate for ECT despite medical issues she is severely depressed with minimal intake Time Spent With Patient Time: Total time managing care of this patient today _30___ minutes.
--- NOTE | 2023-12-11 11:50 | HO.PSYCHPN ---
Subjective Subjective Date of Service: 12/11/23 Reason For Visit: Major depressive disorder, severe, recurrent Subjective Notes: Conditional Voluntary Healthcare Proxy: Yes Interim History: Nursing staff reported the patient has refused her medications she had very limited p.o. intake tearful at times she slept 8 hours. Today she was scheduled for for her 1st ECT but they could not get a consent since then he did not have an historic interpreter for her who is the healthcare proxy. On interview the patient remains despondent, nearly catatonic. Mental Status Exam Mental Status Exam Patient Appearance: Appropriate Patient Orientation: Person and Situation Level of Consciousness: Awake and Appropriate Patient Behavior: Passive Mood Description: Withdrawn Affect Description: Blunted Patient Cognition Impaired: Yes Ability to Follow Directions: Fair Speech Pattern: No Speech Hallucinations: None Delusions: Paranoid Ideation Thought Process: Slowed Thinking Thought Content: positive for Poverty of Content and positive for Thought Blocking Judgement: Poor Diagnostics Vital Signs (24Hr): Vital Signs - 24 hr 12/10/23 20:00 12/11/23 05:58 12/11/23 06:38 Temperature 97.7 F 97.7 F 97.5 F Pulse Rate 59 58 55 Respiratory Rate 16 16 16 Blood Pressure 125/59 L 120/59 L 113/52 L Pulse Oximetry 96 98 94 Oxygen Delivery Method Room Air Room Air BMI result Body Mass Index 20.1 Labs 12/09/23 09:57 12/09/23 09:57 Labs: Laboratory Results - last 48 hr 12/09/23 12/09/23 12/10/23 16:28 19:52 06:12 POC Glucose 143 H 205 H 124 H 12/10/23 12/10/23 12/10/23 08:25 11:53 16:42 POC Glucose 146 H 185 H 164 H 12/10/23 12/11/23 20:01 06:00 POC Glucose 139 H 151 H Imaging Radiology Impressions: ITS Impressions Chest X-Ray 12/03/23 12:20 IMPRESSION: 1. Chronic interstitial prominence without focal consolidative airspace opacity. 2. Densities along the left lower chest which may represent pleural calcifications versus soft tissue calcifications. Correlation with lateral radiograph could help further evaluate. Electronically signed by: Viral Smallwood MD 12/03/2023 01:[address] 12/03/23 13:17 IMPRESSION: 1. No acute intracranial abnormalities. No intracranial hemorrhage or mass effect. 2. Moderate small vessel ischemic changes in the hemispheric white matter. 3. 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 4. Age advanced cerebral and cerebellar involutional changes with prominent ventricles. Cannot definitively exclude a component of communicating hydrocephalus given the appearance. Head CT 12/10/23 21:05 IMPRESSION: No acute intracranial abnormality including hemorrhage, mass effect, hydrocephalus, or acute territorial edematous infarction. Electronically signed by: Juan Alberto Murdock MD 12/10/2023 10:07 PM EDT RP Medications Medications Current Medications Acetaminophen (Acetaminophen 325 Mg Tablet) 650 mg PO Q6H PRN PRN Reason: Headache/Pain Mild Scale (1-3) Al Hydroxide/Mg Hydroxide (Magnesium Hydrox/Alum Hydrox 30 Ml Oral.Susp) 30 ml PO Q6H PRN PRN Reason: Heartburn/Nausea Amlodipine Besylate (Amlodipine Besylate 5 Mg Tablet) 5 mg PO DAILY [facility]; Protocol Last Admin: 12/10/23 10:12 Dose: Not Given Anastrozole (Anastrozole 1 Mg Tablet) 1 mg PO DAILY [facility] Last Admin: 12/10/23 10:12 Dose: Not Given Aspirin (Aspirin 81 Mg Tab.Chew) 81 mg PO DAILY [facility] Last Admin: 12/10/23 10:12 Dose: Not Given Atorvastatin Calcium (Atorvastatin Calcium 10 Mg Tablet) 10 mg PO BEDTIME [facility] Last Admin: 12/10/23 21:07 Dose: 10 mg Cefuroxime Axetil (Cefuroxime Axetil 250 Mg Tablet) 250 mg PO Q12H [facility] Last Admin: 12/10/23 21:07 Dose: 250 mg Divalproex Sodium (Divalproex Sodium 500 Mg Tablet.) 500 mg PO BEDTIME [facility] Last Admin: 12/09/23 20:58 Dose: 500 mg Ferrous Sulfate (Ferrous Sulfate 324 Mg Tablet.) 324 mg PO DAILY [facility] Last Admin: 12/10/23 10:13 Dose: Not Given Furosemide (Furosemide 20 Mg Tablet) 20 mg PO DAILY [facility]; Protocol Last Admin: 12/10/23 10:13 Dose: Not Given Glucose (Glucose Gel 15 Gm Gel..Gram.) 15 gm PO Q15M PRN; Protocol PRN Reason: per Hypoglycemia Standing Ord. Dextrose (D10) 250 mls @ 750 mls/hr IV Q15M PRN; Protocol PRN Reason: per Hypoglycemia Standing Ord. Lactated Ringer's (Lr) 1,000 mls @ 50 mls/hr IVCONT .Q20H [facility] Last Admin: 12/11/23 07:01 Dose: 50 mls/hr Insulin Glargine (Insulin Glargine,Hum.Rec.Anlog 100 Unit/Ml 10 Ml Vial) 6 unit SUBCUT BEDTIME [facility] Last Admin: 12/10/23 21:09 Dose: Not Given Insulin Human Lispro (Insulin Lispro 100 Unit/Ml 3 Ml Vial) 0 unit SUBCUT QIDACHS [facility]; Protocol Last Admin: 12/11/23 08:03 Dose: Not Given Levetiracetam (Levetiracetam 500 Mg Tablet) 500 mg PO BID [facility] Last Admin: 12/10/23 10:13 Dose: Not Given Loratadine (Loratadine 10 Mg Tablet) 10 mg PO BEDTIME [facility] Last Admin: 12/10/23 21:11 Dose: 10 mg Losartan Potassium (Losartan Potassium 50 Mg Tablet) 100 mg PO DAILY [facility]; Protocol Last Admin: 12/10/23 10:13 Dose: Not Given Magnesium Hydroxide (Milk Of Magnesia 30 Ml Oral.Susp) 30 ml PO DAILY PRN PRN Reason: Constipation Magnesium Oxide (Magnesium Oxide 400 Mg Tablet) 400 mg PO BID [facility] Last Admin: 12/10/23 21:07 Dose: 400 mg Mirtazapine (Mirtazapine 30 Mg Tablet) 30 mg PO BEDTIME [facility] Last Admin: 12/10/23 21:07 Dose: 30 mg Multivitamins/Vitamin C (Multivitamin Tablet) 1 tab PO DAILY [facility] Last Admin: 12/10/23 10:13 Dose: Not Given Nicotine Polacrilex (Nicotine Polacrilex 2 Mg Gum) 4 mg BUCCAL Q2H PRN PRN Reason: Nicotine Cravings Omeprazole (Omeprazole 20 Mg Capsule.Dr) 20 mg PO DAILY@0630 [facility] Last Admin: 12/10/23 06:19 Dose: 20 mg Risperidone (Risperidone 0.5 Mg Tablet) 0.5 mg PO BID PRN PRN Reason: Restlessness Thiamine HCl (Thiamine Hcl 100 Mg Tablet) 100 mg PO DAILY [facility] Last Admin: 12/10/23 10:13 Dose: Not Given Trazodone HCl (Trazodone Hcl 50 Mg Tablet) 50 mg PO BEDTIME PRN PRN Reason: Insomnia Last Admin: 12/08/23 22:06 Dose: 50 mg Vancomycin HCl (Vancomycin Hcl Oral Solution 125 Mg/5 Ml Soln.Recon) 125 mg PO Q6H [facility] Last Admin: 12/11/23 02:46 Dose: Not Given Allergies Allergies Allergy/AdvReac Type Severity Reaction Status Date / Time atropine Allergy Unknown Shortness Verified 12/02/23 23:30 of Breath enoxaparin [From Lovenox] Allergy Unknown Unknown Verified 12/02/23 23:30 penicillin V Allergy Unknown Unknown Verified 03/19/23 07:30 pseudoephedrine [Aprodine] Allergy Unknown Unknown Verified 03/19/23 07:30 triprolidine [Aprodine] Allergy Unknown Unknown Verified 03/19/23 07:30 Assessment & Plan Assessment & Plan (1) Fixed constriction of pupil: Status: Acute Code(s): H57.03 - Miosis (2) Catatonia: Status: Acute Code(s): F06.1 - Catatonic disorder due to known physiological condition (3) Routine medical exam: Status: Acute Code(s): Z00.00 - Encounter for general adult medical examination without abnormal findings Plan 73-year-old female with history of insulin-dependent type 2 diabetes, hypertension, hyperlipidemia, history of C diff colitis, hypothyroidism, heart failure preserved ejection fraction, cirrhosis admitted to [facility] for catatonia with consult placed to hospitalist service for ect risk stratification. Pt with class II risk on revised cardiac risk index given history of CHF though is clinically euvolemic on exam. Lungs are clear. Has known but no murmurs heard on exam. Would recommend checking EKG to assess for ECT prolongation prior to ECT treatment. Unable to assess ROS. Based on RCRI and known history of ECT with good tolerance there does not appear to be any acute medical contraindication that should preclude patient from undergoing ect. Appropriate anesthesia precautions should be taken given known history of BASIL. Pt also noted to have equal but fixed pupils on exam which was not noted on initial H&P. She is catatonic and unable to participate in further CN exam or provide history. Did have Head CT on 12/02 negative for acute intracranial abnormalities which showed moderate small-vessel ischemic changes in hemispheric white matter numerous old lacunar infarcts as well as age advanced cerebral and cerebellar involutional changes with prominent ventricles. At this time, recommend repeating head CT and can consider Neurology evaluation at discretion of psychiatrist Will continue following for results Plan 1. Continue with antidepressants and antipsychotics. 2. We will try to get consent for ECT by her healthcare proxy. 3. Reassessment results Reason for continued inpatient stay Substantial Risk for: inability to function, rapid decompensation and med/psych decompensation Time Spent With Patient Time: Total time managing care of this patient today __20__ minutes.
[2023-12-11 12:02] LABS: Glucose, Whole Blood 158 mg/dL (60-115)
[2023-12-11 12:10] VITALS: BP 117/57; PULSE 58; RESP 16; TEMP 36; O2SAT 94
[2023-12-11] MEDS: vancomycin HCL Oral Solution 125 MG/5 ML SOLN.RECON PO ×2 (12:16→22:24)
[2023-12-11 16:44] LABS: Glucose, Whole Blood 134 mg/dL (60-115)
[2023-12-11 20:00] VITALS: BP 127/58; PULSE 64; RESP 16; TEMP 36.4; O2SAT 96
[2023-12-11 20:33] LABS: Glucose, Whole Blood 136 mg/dL (60-115)
[2023-12-12 06:12] VITALS: O2SAT 97
[2023-12-12 06:51] LABS: Glucose, Whole Blood 149 mg/dL (60-115)
[2023-12-12 08:00] VITALS: BP 109/58; PULSE 61; RESP 16; TEMP 36.4; O2SAT 99
[2023-12-12] MEDS: vancomycin HCL Oral Solution 125 MG/5 ML SOLN.RECON PO ×3 (08:46→20:37)
--- NOTE | 2023-12-12 09:26 | P.PNPSI_ITS ---
Subjective Subjective Date of Service: 12/12/23 Reason For Visit: Major depressive disorder, severe, recurrent Subjective Notes: Conditional Voluntary Interim History: Patient quite depressed withdrawn mostly mute nonresponse Healthcare proxy has signed consent for ECT and for anesthesia past ECT records reviewed minimal food and fluids has mostly not been taking medication did accept liquid Depakene Medication Compliance: Intermittent Mental Status Exam Mental Status Exam Patient Appearance: Appropriate Patient Orientation: Person and Situation Level of Consciousness: Awake and Drowsy Patient Behavior: Passive Mood Description: Withdrawn Affect Description: Blunted Patient Cognition Impaired: Yes Ability to Follow Directions: Fair Speech Pattern: No Speech Hallucinations: None Delusions: Paranoid Ideation Thought Process: Slowed Thinking Thought Content: positive for Poverty of Content and positive for Thought Blocking Judgement: Poor Judgement and Insight: Patient generally nonverbal and withdrawn Diagnostics Vital Signs (24Hr): Vital Signs - 24 hr 12/11/23 12:10 12/11/23 20:00 12/12/23 06:12 Temperature 96.8 F 97.5 F Pulse Rate 58 64 Respiratory Rate 16 16 Blood Pressure 117/57 L 127/58 L Pulse Oximetry 94 96 97 Oxygen Delivery Method Room Air Room Air Room Air BMI result Body Mass Index 20.1 Labs 12/09/23 09:57 12/09/23 09:57 Labs: Laboratory Results - last 48 hr 12/10/23 12/10/23 12/10/23 11:53 16:42 20:01 POC Glucose 185 H 164 H 139 H 12/11/23 12/11/23 12/11/23 06:00 11:58 16:39 POC Glucose 151 H 158 H 134 H 12/11/23 12/12/23 19:50 06:41 POC Glucose 136 H 149 H Imaging Radiology Impressions: ITS Impressions Chest X-Ray 12/03/23 12:20 IMPRESSION: 1. Chronic interstitial prominence without focal consolidative airspace opacity. 2. Densities along the left lower chest which may represent pleural calcifications versus soft tissue calcifications. Correlation with lateral radiograph could help further evaluate. Electronically signed by: Viral Smallwood MD 12/03/2023 01:33 PM EDT RP Head CT 12/03/23 13:17 IMPRESSION: 1. No acute intracranial abnormalities. No intracranial hemorrhage or mass effect. 2. Moderate small vessel ischemic changes in the hemispheric white matter. 3. 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 4. Age advanced cerebral and cerebellar involutional changes with prominent ventricles. Cannot definitively exclude a component of communicating hydrocephalus given the appearance. Head CT 12/10/23 21:05 IMPRESSION: No acute intracranial abnormality including hemorrhage, mass effect, hydrocephalus, or acute territorial edematous infarction. Electronically signed by: Juan Alberto Murdock MD 12/10/2023 10:07 PM EDT Medications Medications Current Medications Acetaminophen (Acetaminophen 325 Mg Tablet) 650 mg PO Q6H PRN PRN Reason: Headache/Pain Mild Scale (1-3) Al Hydroxide/Mg Hydroxide (Magnesium Hydrox/Alum Hydrox 30 Ml Oral.Susp) 30 ml PO Q6H PRN PRN Reason: Heartburn/Nausea Amlodipine Besylate (Amlodipine Besylate 5 Mg Tablet) 5 mg PO DAILY [facility]; Protocol Last Admin: 12/11/23 12:30 Dose: Not Given Anastrozole (Anastrozole 1 Mg Tablet) 1 mg PO DAILY [facility] Last Admin: 12/11/23 12:30 Dose: Not Given Aspirin (Aspirin 81 Mg Tab.Chew) 81 mg PO DAILY [facility] Last Admin: 12/11/23 12:30 Dose: Not Given Atorvastatin Calcium (Atorvastatin Calcium 10 Mg Tablet) 10 mg PO BEDTIME [facility] Last Admin: 12/11/23 22:25 Dose: Not Given Cefuroxime Axetil (Cefuroxime Axetil 250 Mg Tablet) 250 mg PO Q12H [facility] Last Admin: 12/11/23 22:25 Dose: Not Given Divalproex Sodium (Divalproex Sodium 500 Mg Tablet.) 500 mg PO BEDTIME [facility] Last Admin: 12/11/23 22:25 Dose: Not Given Ferrous Sulfate (Ferrous Sulfate 324 Mg Tablet.) 324 mg PO DAILY [facility] Last Admin: 12/11/23 12:30 Dose: Not Given Furosemide (Furosemide 20 Mg Tablet) 20 mg PO DAILY [facility]; Protocol Last Admin: 12/11/23 12:31 Dose: Not Given Glucose (Glucose Gel 15 Gm Gel..Gram.) 15 gm PO Q15M PRN; Protocol PRN Reason: per Hypoglycemia Standing Ord. Dextrose (D10) 250 mls @ 750 mls/hr IV Q15M PRN; Protocol PRN Reason: per Hypoglycemia Standing Ord. Lactated Ringer's (Lr) 1,000 mls @ 50 mls/hr IVCONT .Q20H [facility] Last Admin: 12/12/23 05:19 Dose: Not Given Insulin Glargine (Insulin Glargine,Hum.Rec.Anlog 100 Unit/Ml 10 Ml Vial) 6 unit SUBCUT BEDTIME [facility] Last Admin: 12/11/23 22:26 Dose: Not Given Insulin Human Lispro (Insulin Lispro 100 Unit/Ml 3 Ml Vial) 0 unit SUBCUT QIDACHS [facility]; Protocol Last Admin: 12/11/23 22:25 Dose: Not Given Levetiracetam (Levetiracetam 500 Mg Tablet) 500 mg PO BID [facility] Last Admin: 12/11/23 22:28 Dose: Not Given Loratadine (Loratadine 10 Mg Tablet) 10 mg PO BEDTIME [facility] Last Admin: 12/11/23 22:28 Dose: Not Given Losartan Potassium (Losartan Potassium 50 Mg Tablet) 100 mg PO DAILY [facility]; Protocol Last Admin: 12/11/23 12:30 Dose: Not Given Magnesium Hydroxide (Milk Of Magnesia 30 Ml Oral.Susp) 30 ml PO DAILY PRN PRN Reason: Constipation Magnesium Oxide (Magnesium Oxide 400 Mg Tablet) 400 mg PO BID [facility] Last Admin: 12/11/23 22:28 Dose: Not Given Mirtazapine (Mirtazapine 30 Mg Tablet) 30 mg PO BEDTIME [facility] Last Admin: 12/11/23 22:29 Dose: Not Given Multivitamins/Vitamin C (Multivitamin Tablet) 1 tab PO DAILY [facility] Last Admin: 12/11/23 12:31 Dose: Not Given Nicotine Polacrilex (Nicotine Polacrilex 2 Mg Gum) 4 mg BUCCAL Q2H PRN PRN Reason: Nicotine Cravings Omeprazole (Omeprazole 20 Mg Capsule.Dr) 20 mg PO DAILY@0630 [facility] Last Admin: 12/12/23 06:45 Dose: Not Given Risperidone (Risperidone 0.5 Mg Tablet) 0.5 mg PO BID PRN PRN Reason: Restlessness Thiamine HCl (Thiamine Hcl 100 Mg Tablet) 100 mg PO DAILY [facility] Last Admin: 12/11/23 12:31 Dose: Not Given Trazodone HCl (Trazodone Hcl 50 Mg Tablet) 50 mg PO BEDTIME PRN PRN Reason: Insomnia Last Admin: 12/08/23 22:06 Dose: 50 mg Vancomycin HCl (Vancomycin Hcl Oral Solution 125 Mg/5 Ml Soln.Recon) 125 mg PO Q6H [facility] Last Admin: 12/12/23 08:46 Dose: 125 mg Allergies Allergies Allergy/AdvReac Type Severity Reaction Status Date / Time atropine Allergy Unknown Shortness Verified 12/02/23 23:30 of Breath enoxaparin [From Lovenox] Allergy Unknown Unknown Verified 12/02/23 23:30 penicillin V Allergy Unknown Unknown Verified 03/19/23 07:30 pseudoephedrine [Aprodine] Allergy Unknown Unknown Verified 03/19/23 07:30 triprolidine [Aprodine] Allergy Unknown Unknown Verified 03/19/23 07:30 Assessment & Plan Assessment & Plan (1) Catatonia: Status: Acute Code(s): F06.1 - Catatonic disorder due to known physiological condition (2) Major depressive disorder with psychotic features: Status: Acute Code(s): F32.3 - Major depressive disorder, single episode, severe with psychotic features (3) Fixed constriction of pupil: Status: Acute Code(s): H57.03 - Miosis (4) T2DM (type 2 diabetes mellitus): Status: Acute Code(s): E11.9 - Type 2 diabetes mellitus without complications Plan 73-year-old female with history of insulin-dependent type 2 diabetes, hypertension, hyperlipidemia, history of C diff colitis, hypothyroidism, heart failure preserved ejection fraction, cirrhosis admitted to [facility] for catatonia with consult placed to hospitalist service for ect risk stratification. Pt with class II risk on revised cardiac risk index given history of CHF though is clinically euvolemic on exam. Lungs are clear. Has known but no murmurs heard on exam. Would recommend checking EKG to assess for ECT prolongation prior to ECT treatment. Unable to assess ROS. Based on RCRI and known history of ECT with good tolerance there does not appear to be any acute medical contraindication that should preclude patient from undergoing ect. Appropriate anesthesia precautions should be taken given known history of BASIL. Pt also noted to have equal but fixed pupils on exam which was not noted on initial H&P. She is catatonic and unable to participate in further CN exam or provide history. Did have Head CT on 12/02 negative for acute intracranial abnormalities which showed moderate small-vessel ischemic changes in hemispheric white matter numerous old lacunar infarcts as well as age advanced cerebral and cerebellar involutional changes with prominent ventricles. At this time, recommend repeating head CT and can consider Neurology evaluation at discretion of psychiatrist Will continue following for results Plan 1. Continue with antidepressants and antipsychotics. 2. We will try to get consent for ECT by her healthcare proxy. 3. Reassessment results Reason for continued inpatient stay Substantial Risk for: inability to function, rapid decompensation and med/psych decompensation Time Spent With Patient Time: Total time managing care of this patient today ____ minutes.
[2023-12-12] MEDS: 0.9 % Sodium Chloride Flush 10 ML SYRINGE 5 ML IVFLUSH ×2 (09:56→15:17)
[2023-12-12 11:37] LABS: Glucose, Whole Blood 230 mg/dL (60-115)
[2023-12-12 16:32] LABS: Glucose, Whole Blood 256 mg/dL (60-115)
[2023-12-12 20:47] LABS: Glucose, Whole Blood 194 mg/dL (60-115)
[2023-12-12 20:56] VITALS: BP 125/70; PULSE 56; RESP 18; TEMP 36.7; O2SAT 97
[2023-12-13] VITALS (10 sets, daily range): BP systolic 101–144; BP diastolic 55–73; PULSE 54–88; RESP 12–18; TEMP 35.9–36.9; O2SAT 95–99
[2023-12-13] MEDS: 0.9 % Sodium Chloride Flush 10 ML SYRINGE 5 ML IVFLUSH ×3 (02:51→17:33)
[2023-12-13] MEDS: vancomycin HCL Oral Solution 125 MG/5 ML SOLN.RECON PO ×4 (03:50→20:56)
[2023-12-13 06:26] LABS: Glucose, Whole Blood 165 mg/dL (60-115)
--- NOTE | 2023-12-13 08:29 | MHC.SHP ---
Pre-Procedural Eval Section A - 24 Hr Update-Section A only Date of Service: 12/13/23 The patient is an INPATIENT: Yes Changes since office visit: No Cold of Flu in the past 2 weeks, No New Medical Problems, No Changes in Medication and No Patient answered all questions The patient has been examined within 24 hours of the surgical procedure. The History & Physical has been completed within 30 days and I have reviewed it.: Yes Section B - Complete if H&P > 30 days Chief Complaint: Major depressive disorder, severe, recurrent Allergies: Allergies Allergy/AdvReac Type Severity Reaction Status Date / Time atropine Allergy Unknown Shortness Verified 12/02/23 23:30 of Breath enoxaparin [From Lovenox] Allergy Unknown Unknown Verified 12/02/23 23:30 penicillin V Allergy Unknown Unknown Verified 03/19/23 07:30 pseudoephedrine [Aprodine] Allergy Unknown Unknown Verified 03/19/23 07:30 triprolidine [Aprodine] Allergy Unknown Unknown Verified 03/19/23 07:30 Plan I have reviewed the history and physical and performed a pertinent physical examination on my patient. No changes have occurred unless specified. Time Spent With Patient Time: Total time managing care of this patient today ____ minutes.
--- NOTE | 2023-12-13 08:29 | HO.ECTPROC ---
ECT Procedure Note Diagnosis/Treatment Date of Service: 12/13/23 Diagnosis: Major Depressive Disorder and Catatonia Current Treatment Number: 1 Treatment: Series Interval Clinical Notes: Patient had 1st ECT required glycopyrrolate then atropine. This was prior to ECT. The patient did tolerate ECT there were concerns regarding the bradycardia and hypertension after but patient did stabilize. Informed consent had been obtained from her dr rodriguez asking for weigh in by cardiology. Patient has significant catatonia depression minimal food intake patient has had excellent response to ECT in past has not responded to medication Time: Total time managing care of this patient today ____ minutes. ECT Settings Device: THYMATRON DGx Electrode Placement: Rt temporal/ Lt frontal Program/Pulse Width: 0.50 Energy Percent: 100 Seizure Duration By EEG (in seconds): 86 Medications Administration General Anesthetic: Etomidate Muscle Relaxant: Succinylcholine Ancillary Medications Miscillaneous Medications: Propofol (30) Airway Management Airway Management: Bag Mask Ventilation Treatment Recommendations Pt Tolerated Procedure w/o Issue: Yes
--- NOTE | 2023-12-13 09:51 | MHC.CLN ---
F/U DIET=REGULAR. ADDING ENSURE MAX BID (300 KCALS, 60 G PROTEIN). CONTINUES WITH VERY POOR PO INTAKE. STARTING ECT TODAY. STAGE II PRESSURE INJURY TO COCCYX. MONITOR FOR PLAN OF CARE, INTAKE, AND WOUND HEALING. RD TO FOLLOW WEEKLY.
[2023-12-13] MEDS: Anastrozole 1 MG TABLET PO (09:55)
[2023-12-13] MEDS: amLODIPine Besylate 5 MG TABLET PO (09:55)
[2023-12-13] MEDS: Ferrous Sulfate 324 MG TABLET.DR PO (09:55)
[2023-12-13] MEDS: Losartan Potassium 50 MG TABLET 100 MG PO (09:55)
[2023-12-13] MEDS: Furosemide 20 MG TABLET PO (09:56)
[2023-12-13] MEDS: Magnesium Oxide 400 MG TABLET PO (09:56)
[2023-12-13] MEDS: Aspirin 81 MG TAB.CHEW PO (09:56)
[2023-12-13] MEDS: cefuroxime axetiL 250 MG TABLET PO (09:56)
[2023-12-13] MEDS: Thiamine HCL 100 MG TABLET PO (09:56)
[2023-12-13] MEDS: Omeprazole 20 MG CAPSULE.DR PO (09:56)
[2023-12-13] MEDS: Multivitamin TABLET 1 TAB PO (09:57)
[2023-12-13 11:07] LABS: Glucose, Whole Blood 248 mg/dL (60-115)
[2023-12-13] MEDS: Insulin Lispro 100 UNIT/ML 3 ML VIAL SUBCUT ×2 (11:56→20:56)
--- NOTE | 2023-12-13 13:26 | P.PNPSI_ITS ---
Subjective Subjective Date of Service: 12/13/23 Reason For Visit: Major depressive disorder, severe, recurrent Subjective Notes: Conditional Voluntary (hcp) Healthcare Proxy: Yes Interim History: Pt tolerated ect well still withdrawn mostly non verbal refusing most meds Mental Status Exam Mental Status Exam Narrative: pt mostly mute not responsive Patient Appearance: Fatigued Patient Orientation: Person and Situation Level of Consciousness: Awake and Drowsy Patient Behavior: Passive Mood Description: Withdrawn Affect Description: Blunted Patient Cognition Impaired: Yes Ability to Follow Directions: Fair Speech Pattern: No Speech Hallucinations: None Delusions: Paranoid Ideation Thought Process: Slowed Thinking Thought Content: positive for Poverty of Content and positive for Thought Blocking Judgement: Poor Judgement and Insight: Patient generally nonverbal and withdrawn Diagnostics Vital Signs (24Hr): Vital Signs - 24 hr 12/12/23 20:56 12/13/23 06:00 12/13/23 06:16 Temperature 98.1 F 98 F Pulse Rate 56 57 Respiratory Rate 18 16 Blood Pressure 125/70 121/65 Pulse Oximetry 97 97 97 Oxygen Delivery Method Room Air Room Air Oxygen Flow Rate 12/13/23 07:09 12/13/23 08:34 12/13/23 08:39 Temperature 96.7 F L 97.6 F Pulse Rate 55 80 88 Respiratory Rate 16 12 15 Blood Pressure 119/57 L 136/70 137/73 Pulse Oximetry 98 99 97 Oxygen Delivery Method Room Air Nasal Cannula Room Air Oxygen Flow Rate 2 12/13/23 08:44 12/13/23 08:49 12/13/23 09:04 Temperature 97.6 F Pulse Rate 88 78 65 Respiratory Rate 15 15 16 Blood Pressure 127/65 124/63 120/60 Pulse Oximetry 97 95 95 Oxygen Delivery Method Room Air Room Air Room Air Oxygen Flow Rate 12/13/23 09:53 Temperature 98.4 F Pulse Rate 66 Respiratory Rate 15 Blood Pressure 144/72 H Pulse Oximetry 96 Oxygen Delivery Method Room Air Oxygen Flow Rate BMI result Body Mass Index 20.1 Labs 12/09/23 09:57 12/09/23 09:57 Labs: Laboratory Results - last 48 hr 12/11/23 12/11/23 12/12/23 16:39 19:50 06:41 POC Glucose 134 H 136 H 149 H 12/12/23 12/12/23 12/12/23 11:33 16:28 20:34 POC Glucose 230 H 256 H 194 H 12/13/23 12/13/23 06:19 11:02 POC Glucose 165 H 248 H Imaging Radiology Impressions: ITS Impressions Chest X-Ray 12/03/23 12:20 IMPRESSION: 1. Chronic interstitial prominence without focal consolidative airspace opacity. 2. Densities along the left lower chest which may represent pleural calcifications versus soft tissue calcifications. Correlation with lateral radiograph could help further evaluate. Electronically signed by: Viral Smallwood MD 12/03/2023 01:33 PM EDT RP Head CT 12/03/23 13:17 IMPRESSION: 1. No acute intracranial abnormalities. No intracranial hemorrhage or mass effect. 2. Moderate small vessel ischemic changes in the hemispheric white matter. 3. 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 4. Age advanced cerebral and cerebellar involutional changes with prominent ventricles. Cannot definitively exclude a component of communicating hydrocephalus given the appearance. Head CT 12/10/23 21:05 IMPRESSION: No acute intracranial abnormality including hemorrhage, mass effect, hydrocephalus, or acute territorial edematous infarction. Electronically signed by: Juan Alberto Murdock MD 12/10/2023 10:07 PM EDT RP Medications Medications Current Medications Acetaminophen (Acetaminophen 325 Mg Tablet) 650 mg PO Q6H PRN PRN Reason: Headache/Pain Mild Scale (1-3) Al Hydroxide/Mg Hydroxide (Magnesium Hydrox/Alum Hydrox 30 Ml Oral.Susp) 30 ml PO Q6H PRN PRN Reason: Heartburn/Nausea Amlodipine Besylate (Amlodipine Besylate 5 Mg Tablet) 5 mg PO DAILY [facility]; Protocol Last Admin: 12/13/23 09:55 Dose: 5 mg Anastrozole (Anastrozole 1 Mg Tablet) 1 mg PO DAILY [facility] Last Admin: 12/13/23 09:55 Dose: 1 mg Aspirin (Aspirin 81 Mg Tab.Chew) 81 mg PO DAILY [facility] Last Admin: 12/13/23 09:56 Dose: 81 mg Atorvastatin Calcium (Atorvastatin Calcium 10 Mg Tablet) 10 mg PO BEDTIME [facility] Last Admin: 12/12/23 20:47 Dose: Not Given Cefuroxime Axetil (Cefuroxime Axetil 250 Mg Tablet) 250 mg PO Q12H [facility] Last Admin: 08/30/24 09:56 Dose: 250 mg Ferrous Sulfate (Ferrous Sulfate 324 Mg Tablet.) 324 mg PO DAILY [facility] Last Admin: 12/13/23 09:55 Dose: 324 mg Furosemide (Furosemide 20 Mg Tablet) 20 mg PO DAILY [facility]; Protocol Last Admin: 12/13/23 09:56 Dose: 20 mg Glucose (Glucose Gel 15 Gm Gel..Gram.) 15 gm PO Q15M PRN; Protocol PRN Reason: per Hypoglycemia Standing Ord. Dextrose (D10) 250 mls @ 750 mls/hr IV Q15M PRN; Protocol PRN Reason: per Hypoglycemia Standing Ord. Insulin Glargine (Insulin Glargine,Hum.Rec.Anlog 100 Unit/Ml 10 Ml Vial) 6 unit SUBCUT BEDTIME [facility] Last Admin: 12/12/23 20:50 Dose: Not Given Insulin Human Lispro (Insulin Lispro 100 Unit/Ml 3 Ml Vial) 0 unit SUBCUT QIDACHS [facility]; Protocol Last Admin: 12/13/23 11:56 Dose: 4 unit Loratadine (Loratadine 10 Mg Tablet) 10 mg PO BEDTIME [facility] Last Admin: 12/12/23 20:50 Dose: Not Given Losartan Potassium (Losartan Potassium 50 Mg Tablet) 100 mg PO DAILY [facility]; Protocol Last Admin: 12/13/23 09:55 Dose: 100 mg Magnesium Hydroxide (Milk Of Magnesia 30 Ml Oral.Susp) 30 ml PO DAILY PRN PRN Reason: Constipation Magnesium Oxide (Magnesium Oxide 400 Mg Tablet) 400 mg PO BID [facility] Last Admin: 12/13/23 09:56 Dose: 400 mg Mirtazapine (Mirtazapine 30 Mg Tablet) 30 mg PO BEDTIME [facility] Last Admin: 12/12/23 20:51 Dose: Not Given Multivitamins/Vitamin C (Multivitamin Tablet) 1 tab PO DAILY [facility] Last Admin: 12/13/23 09:57 Dose: 1 tab Nicotine Polacrilex (Nicotine Polacrilex 2 Mg Gum) 4 mg BUCCAL Q2H PRN PRN Reason: Nicotine Cravings Omeprazole (Omeprazole 20 Mg Capsule.) 20 mg PO DAILY@0630 [facility] Last Admin: 12/13/23 09:56 Dose: 20 mg Risperidone (Risperidone 0.5 Mg Tablet) 0.5 mg PO BID PRN PRN Reason: Restlessness Sodium Chloride (0.9 % Sodium Chloride Flush 10 Ml Syringe) 5 ml IVFLUSH QSHIFT [facility] Last Admin: 12/13/23 10:14 Dose: 5 ml Thiamine HCl (Thiamine Hcl 100 Mg Tablet) 100 mg PO DAILY [facility] Last Admin: 12/13/23 09:56 Dose: 100 mg Trazodone HCl (Trazodone Hcl 50 Mg Tablet) 50 mg PO BEDTIME PRN PRN Reason: Insomnia Last Admin: 12/08/23 22:06 Dose: 50 mg Vancomycin HCl (Vancomycin Hcl Oral Solution 125 Mg/5 Ml Soln.Recon) 125 mg PO Q6H [facility] Last Admin: 12/13/23 13:12 Dose: 125 mg Allergies Allergies Allergy/AdvReac Type Severity Reaction Status Date / Time atropine Allergy Unknown Shortness Verified 12/02/23 23:30 of Breath enoxaparin [From Lovenox] Allergy Unknown Unknown Verified 12/02/23 23:30 penicillin V Allergy Unknown Unknown Verified 03/19/23 07:30 pseudoephedrine [Aprodine] Allergy Unknown Unknown Verified 03/19/23 07:30 triprolidine [Aprodine] Allergy Unknown Unknown Verified 03/19/23 07:30 Assessment & Plan Assessment & Plan (1) Catatonia: Status: Acute Code(s): F06.1 - Catatonic disorder due to known physiological condition (2) Major depressive disorder with psychotic features: Status: Acute Code(s): F32.3 - Major depressive disorder, single episode, severe with psychotic features (3) Fixed constriction of pupil: Status: Acute Code(s): H57.03 - Miosis (4) T2DM (type 2 diabetes mellitus): Status: Acute Code(s): E11.9 - Type 2 diabetes mellitus without complications Plan 73-year-old female with history of insulin-dependent type 2 diabetes, hypertension, hyperlipidemia, history of C diff colitis, hypothyroidism, heart failure preserved ejection fraction, cirrhosis admitted to [facility] for catatonia with consult placed to hospitalist service for ect risk stratification. Pt with class II risk on revised cardiac risk index given history of CHF though is clinically euvolemic on exam. Lungs are clear. Has known but no murmurs heard on exam. Would recommend checking EKG to assess for ECT prolongation prior to ECT treatment. Unable to assess ROS. Based on RCRI and known history of ECT with good tolerance there does not appear to be any acute medical contraindication that should preclude patient from undergoing ect. Appropriate anesthesia precautions should be taken given known history of BASIL. Pt also noted to have equal but fixed pupils on exam which was not noted on initial H&P. She is catatonic and unable to participate in further CN exam or provide history. Did have Head CT on 12/02 negative for acute intracranial abnormalities which showed moderate small-vessel ischemic changes in hemispheric white matter numerous old lacunar infarcts as well as age advanced cerebral and cerebellar involutional changes with prominent ventricles. At this time, recommend repeating head CT and can consider Neurology evaluation at discretion of psychiatrist Will continue following for results Plan 1. Continue with antidepressants and antipsychotics. 2. We will try to get consent for ECT by her healthcare proxy. 3. Reassessment results 12/13/2023 Patient completed 1st ECT did have brief bradycardia was given prior to ECT treatment after etomidate glycopyrrolate and a small dose of atropine was then stimulated right temporal left frontal Had transient tachycardia and hypertension post ECT. Clear risks benefits patient has history of catatonia depression only responding to ECT minimal response to medication. Dr. solorzano got original anesthesia consent Dr. Busch requests cardiology consult no ventricular arrhythmia noted no hypotension Keppra patient has been refusing will use Depakene 250 b.i.d. patient's states no history of seizures patient reportedly has history of seizures Guardian/Caregiver educated on: ECT Reason for continued inpatient stay Substantial Risk for: inability to function, rapid decompensation and med/psych decompensation Time Spent With Patient Time: Total time managing care of this patient today ____ minutes.
--- NOTE | 2023-12-13 13:48 | HO.WOUND ---
Wound Consult: Follow up 73yr old?female admitted to [facility] on 12/02/23 to the [facility] Unit - See progress notes and H&P for detailed history.? Wound consult follow up for coccyx wound POA.? Patient agreeable to assessment and photo documentation. Coccyx / Sacrum Etiology: ??Stage 2 Pressure Injury Present on Admission Measurements: 1cm x 0.1cm x 0.1cm Wound Bed: red moist wound bed scattered areas of open tissue with moisture component Drainage / Odor: scant suarez amount noted - no odor Edges: attached Brittany wound: ?MASD - IAD No Induration, Fluctuance or Warmth noted - Hyperpigmentation noted - pink blanchable tissue noted Pain: denies pain Goals of Treatment: ? Triad and foam dressing Overall improving - no new topical recommendations needed at this time. JASSON mattress in use, turns and repositions and off loading with pillows. Recommendations: 1. Turn and Reposition every 2 hours and as needed for patient comfort.? Use pillows or wedges to support off loading positions. 2. Off Load all bony prominences with use of pillows and heel boots if needed.? Apply Preventative foams where needed. ? 3. Monitor for incontinence and moisture control, use barrier creams when needed for prevention and treatment. 4. Provide adequate and supplemental nutrition.? 5. Order low air loss mattress. 6. When applicable maintain blood glucose levels per Providers order. 7. Coccyx - Off Load Pressure? - Cleanse with PH balance spray or wipes, pat dry. ?Apply thin layer of Triad to wound bed. Do not remove all of paste between applications as this may cause further skin damage.? Cover with foam dressing to aid in off loading and protection from friction. Change every other day and PRN. Re-consult wound care Nurse for wound deterioration or wound changes.
[2023-12-13 16:30] LABS: Glucose, Whole Blood 247 mg/dL (60-115)
[2023-12-13 20:07] LABS: Glucose, Whole Blood 179 mg/dL (60-115)
[2023-12-13] MEDS: Insulin Glargine,Hum.rec.anlog 100 UNIT/ML 10 ML VIAL 6 UNIT SUBCUT (20:55)
[2023-12-14] MEDS: vancomycin HCL Oral Solution 125 MG/5 ML SOLN.RECON PO ×2 (00:50→09:39)
[2023-12-14] MEDS: 0.9 % Sodium Chloride Flush 10 ML SYRINGE 5 ML IVFLUSH ×3 (00:52→17:13)
[2023-12-14 06:41] LABS: Glucose, Whole Blood 120 mg/dL (60-115)
[2023-12-14 08:08] LABS: Alanine Aminotransferase 23 U/L (0-31); Alkaline Phosphatase 101 U/L (39-117); Anion Gap 12 (12-20); Aspartate Amino Transferase 43 U/L (5-31); Bilirubin Total 0.6 mg/dL (0.0-1.0); Blood Urea Nitrogen 25 mg/dL (9-16); Carbon Dioxide 28 mmol/L (22-29); Chloride 103 mmol/L (96-108); Creatinine Clr Calc Pharmacy 39.4; Estimated Glomerular Filt Rate > 60; Glucose Fasting 135 mg/dL (60-99); Potassium 4.2 mmol/L (3.3-5.1); Sodium 139 mmol/L (135-145)
--- NOTE | 2023-12-14 08:56 | P.PNPSI_ITS ---
Subjective Subjective Date of Service: 12/14/23 Reason For Visit: Major depressive disorder, severe, recurrent Interim History: Pt seen, reviewed with team. Vancomycin completed. Refused Depakote. Pt resting when seen. Denies symptoms of concern today. Medication Compliance: Intermittent Review of Systems Wound care-coccyx contact precautions team has reviewed. Medical Review of Systems: unchanged Review of Systems Review of Systems pt denies today Mental Status Exam Mental Status Exam Patient Appearance: Fatigued Patient Orientation: Person Level of Consciousness: Alert Patient Behavior: Passive and Good Eye Contact Mood Description: Withdrawn Affect Description: Withdrawn Ability to Follow Directions: Fair Speech Pattern: Spontaneous Speech Thought Process: Slowed Thinking Judgement: Poor Diagnostics Vital Signs (24Hr): Vital Signs - 24 hr 12/13/23 09:04 12/13/23 09:53 12/13/23 20:00 Temperature 97.6 F 98.4 F 97.2 F Pulse Rate 65 66 54 Respiratory Rate 16 15 18 Blood Pressure 120/60 144/72 H 101/55 L Pulse Oximetry 95 96 97 Oxygen Delivery Method Room Air Room Air Room Air BMI result Body Mass Index 20.1 Labs 12/09/23 09:57 12/14/23 07:37 Labs: Laboratory Results - last 48 hr 12/12/23 12/12/23 12/12/23 11:33 16:28 20:34 Sodium Potassium Chloride Carbon Dioxide Anion Gap BUN Creatinine Estim Creat Clear Calc Estimated GFR POC Glucose 230 H 256 H 194 H Fasting Glucose Calcium Total Bilirubin AST ALT Alkaline Phosphatase Total Protein Albumin 12/13/23 12/13/23 12/13/23 06:19 11:02 16:26 Sodium Potassium Chloride Carbon Dioxide Anion Gap BUN Creatinine Estim Creat Clear Calc Estimated GFR POC Glucose 165 H 248 H 247 H Fasting Glucose Calcium Total Bilirubin AST ALT Alkaline Phosphatase Total Protein Albumin 12/13/23 12/14/23 12/14/23 19:57 06:32 07:37 Sodium 139 Potassium 4.2 Chloride 103 Carbon Dioxide 28 Anion Gap 12 BUN 25 H Creatinine 0.84 Estim Creat Clear Calc 39.4 Estimated GFR > 60 POC Glucose 179 H 120 H Fasting Glucose 135 H Calcium 10.0 Total Bilirubin 0.6 AST 43 H ALT 23 Alkaline Phosphatase 101 Total Protein 8.0 Albumin 3.0 L Imaging Radiology Impressions: ITS Impressions Chest X-Ray 12/03/23 12:20 IMPRESSION: 1. Chronic interstitial prominence without focal consolidative airspace opacity. 2. Densities along the left lower chest which may represent pleural calcifications versus soft tissue calcifications. Correlation with lateral radiograph could help further evaluate. Electronically signed by: Viral Smallwood MD 12/03/2023 01:33 PM EDT RP Head CT 12/03/23 13:17 IMPRESSION: 1. No acute intracranial abnormalities. No intracranial hemorrhage or mass effect. 2. Moderate small vessel ischemic changes in the hemispheric white matter. 3. 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 4. Age advanced cerebral and cerebellar involutional changes with prominent ventricles. Cannot definitively exclude a component of communicating hydrocephalus given the appearance. Head CT 12/10/23 21:05 IMPRESSION: No acute intracranial abnormality including hemorrhage, mass effect, hydrocephalus, or acute territorial edematous infarction. Electronically signed by: Juan Alberto Murdock MD 12/10/2023 10:07 PM EDT RP Medications Medications Current Medications Acetaminophen (Acetaminophen 325 Mg Tablet) 650 mg PO Q6H PRN PRN Reason: Headache/Pain Mild Scale (1-3) Al Hydroxide/Mg Hydroxide (Magnesium Hydrox/Alum Hydrox 30 Ml Oral.Susp) 30 ml PO Q6H PRN PRN Reason: Heartburn/Nausea Amlodipine Besylate (Amlodipine Besylate 5 Mg Tablet) 5 mg PO DAILY [facility]; Protocol Last Admin: 12/13/23 09:55 Dose: 5 mg Anastrozole (Anastrozole 1 Mg Tablet) 1 mg PO DAILY [facility] Last Admin: 12/13/23 09:55 Dose: 1 mg Aspirin (Aspirin 81 Mg Tab.Chew) 81 mg PO DAILY [facility] Last Admin: 12/13/23 09:56 Dose: 81 mg Atorvastatin Calcium (Atorvastatin Calcium 10 Mg Tablet) 10 mg PO BEDTIME [facility] Last Admin: 12/13/23 21:13 Dose: Not Given Ferrous Sulfate (Ferrous Sulfate 324 Mg Tablet.Dr) 324 mg PO DAILY [facility] Last Admin: 12/13/23 09:55 Dose: 324 mg Furosemide (Furosemide 20 Mg Tablet) 20 mg PO DAILY [facility]; Protocol Last Admin: 12/13/23 09:56 Dose: 20 mg Glucose (Glucose Gel 15 Gm Gel..Gram.) 15 gm PO Q15M PRN; Protocol PRN Reason: per Hypoglycemia Standing Ord. Dextrose (D10) 250 mls @ 750 mls/hr IV Q15M PRN; Protocol PRN Reason: per Hypoglycemia Standing Ord. Insulin Glargine (Insulin Glargine,Hum.Rec.Anlog 100 Unit/Ml 10 Ml Vial) 6 unit SUBCUT BEDTIME [facility] Last Admin: 12/13/23 20:55 Dose: 6 unit Insulin Human Lispro (Insulin Lispro 100 Unit/Ml 3 Ml Vial) 0 unit SUBCUT QIDACHS [facility]; Protocol Last Admin: 12/14/23 07:59 Dose: Not Given Loratadine (Loratadine 10 Mg Tablet) 10 mg PO BEDTIME [facility] Last Admin: 12/13/23 21:13 Dose: Not Given Losartan Potassium (Losartan Potassium 50 Mg Tablet) 100 mg PO DAILY [facility]; Protocol Last Admin: 12/13/23 09:55 Dose: 100 mg Magnesium Hydroxide (Milk Of Magnesia 30 Ml Oral.Susp) 30 ml PO DAILY PRN PRN Reason: Constipation Magnesium Oxide (Magnesium Oxide 400 Mg Tablet) 400 mg PO BID [facility] Last Admin: 12/13/23 21:14 Dose: Not Given Mirtazapine (Mirtazapine 30 Mg Tablet) 30 mg PO BEDTIME [facility] Last Admin: 12/13/23 21:14 Dose: Not Given Multivitamins/Vitamin C (Multivitamin Tablet) 1 tab PO DAILY [facility] Last Admin: 12/13/23 09:57 Dose: 1 tab Nicotine Polacrilex (Nicotine Polacrilex 2 Mg Gum) 4 mg BUCCAL Q2H PRN PRN Reason: Nicotine Cravings Omeprazole (Omeprazole 20 Mg Capsule.Dr) 20 mg PO DAILY@0630 [facility] Last Admin: 12/13/23 09:56 Dose: 20 mg Risperidone (Risperidone 0.5 Mg Tablet) 0.5 mg PO BID PRN PRN Reason: Restlessness Sodium Chloride (0.9 % Sodium Chloride Flush 10 Ml Syringe) 5 ml IVFLUSH QSHIFT [facility] Last Admin: 12/14/23 00:52 Dose: 5 ml Thiamine HCl (Thiamine Hcl 100 Mg Tablet) 100 mg PO DAILY [facility] Last Admin: 12/13/23 09:56 Dose: 100 mg Trazodone HCl (Trazodone Hcl 50 Mg Tablet) 50 mg PO BEDTIME PRN PRN Reason: Insomnia Last Admin: 12/08/23 22:06 Dose: 50 mg Valproic Acid (Valproic Acid (As Sodium Salt) 250 Mg/5 Ml Solution) 250 mg PO BID [facility] Last Admin: 12/13/23 23:24 Dose: Not Given Vancomycin HCl (Vancomycin Hcl Oral Solution 125 Mg/5 Ml Soln.Recon) 125 mg PO Q6H [facility] Last Admin: 12/14/23 00:50 Dose: 125 mg Allergies Allergies Allergy/AdvReac Type Severity Reaction Status Date / Time atropine Allergy Unknown Shortness Verified 12/02/23 23:30 of Breath enoxaparin [From Lovenox] Allergy Unknown Unknown Verified 12/02/23 23:30 penicillin V Allergy Unknown Unknown Verified 03/19/23 07:30 pseudoephedrine [Aprodine] Allergy Unknown Unknown Verified 03/19/23 07:30 triprolidine [Aprodine] Allergy Unknown Unknown Verified 03/19/23 07:30 Assessment & Plan Assessment & Plan (1) T2DM (type 2 diabetes mellitus): Status: Acute Code(s): E11.9 - Type 2 diabetes mellitus without complications Plan 73-year-old female with history of insulin-dependent type 2 diabetes, hypertension, hyperlipidemia, history of C diff colitis, hypothyroidism, heart failure preserved ejection fraction, cirrhosis admitted to [facility] for catatonia with consult placed to hospitalist service for ect risk stratification. Pt with class II risk on revised cardiac risk index given history of CHF though is clinically euvolemic on exam. Lungs are clear. Has known but no murmurs heard on exam. Would recommend checking EKG to assess for ECT prolongation prior to ECT treatment. Unable to assess ROS. Based on RCRI and known history of ECT with good tolerance there does not appear to be any acute medical contraindication that should preclude patient from undergoing ect. Appropriate anesthesia precautions should be taken given known history of BASIL. Pt also noted to have equal but fixed pupils on exam which was not noted on initial H&P. She is catatonic and unable to participate in further CN exam or provide history. Did have Head CT on 12/02 negative for acute intracranial abnormalities which showed moderate small-vessel ischemic changes in hemispheric white matter numerous old lacunar infarcts as well as age advanced cerebral and cerebellar involutional changes with prominent ventricles. At this time, recommend repeating head CT and can consider Neurology evaluation at discretion of psychiatrist Will continue following for results Plan 1. Continue with antidepressants and antipsychotics. 2. We will try to get consent for ECT by her healthcare proxy. 3. Reassessment results 12/13/2023 Patient completed 1st ECT did have brief bradycardia was given prior to ECT treatment after etomidate glycopyrrolate and a small dose of atropine was then stimulated right temporal left frontal Had transient tachycardia and hypertension post ECT. Clear risks benefits patient has history of catatonia depression only responding to ECT minimal response to medication. Dr. solorzano got original anesthesia consent Dr. Busch requests cardiology consult no ventricular arrhythmia noted no hypotension Rosalee patient has been refusing will use Depakene 250 b.i.d. patient's states no history of seizures patient reportedly has history of seizures 12/13 Continue tx. Reason for continued inpatient stay Substantial Risk for: med/psych decompensation Time Spent With Patient Time: Total time managing care of this patient today ____ minutes.
[2023-12-14 09:24] VITALS: BP 106/57; PULSE 59; RESP 16; TEMP 36.1; O2SAT 95
[2023-12-14] MEDS: Aspirin 81 MG TAB.CHEW PO (09:39)
--- NOTE | 2023-12-14 11:44 | PM.CNCAR ---
History of Present Illness History of Present Illness Date of Service: 12/14/23 Requesting physician: Bulmaro Greene Consult reason: pre-op evaluation Chief complaint: Major depressive disorder, severe, recurrent Narrative: I was consulted to evaluate carbonate in cardiology consultation today for pre ECT evaluation. Patient is a 73-year-old female with prior history of severe depression admitted with catatonia and did receive ECT therapy on Saturday. At that point time prior to ECT after mild induction she had developed bradycardia and subsequently got atropine and glycopyrrolate and subsequently got ECT. She then had a catecholamine surge reaction with tachycardia as well as hypertension. This then settled down. 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 Patient denies any chest pain currently but difficult to say if she has never had any prior cardiac history. She does have multiple cardiovascular risk factors including advanced age, calcific aortic valve disease, hypertension, diabetes, hyperlipidemia as well as chronic kidney disease. There is no recorded history of any prior coronary artery disease or vascular events. Head imaging does show chronic small-vessel ischemic disease as well as lacunar infarcts. Patient has abdominal pain. Has been diagnose with C difficile. Review of Systems Review of Systems: Yes Unobtainable due to mental status PMFSH Past Medical History Medical History Cirrhosis Hypothyroidism Breast cancer Hx of Clostridium difficile infection (HFpEF) heart failure with preserved ejection fraction Murmur CKD (chronic kidney disease) stage 3, GFR 30-59 ml/min Vitamin D deficiency HLD (hyperlipidemia) HTN (hypertension) T2DM (type 2 diabetes mellitus) Family History Family History Father Alzheimer disease Stroke Mother Breast cancer Surgical History Surgical History Hx of cataract surgery History of lumpectomy of right breast History of mastectomy Social History Social History Household Members: Family Household Members Other:: son Alcohol intake: never Patient Tobacco Use Status: Never used Tobacco Use of substances other than those prescribed or required for medical reasons: Unable to respond Last Used Substance Other:: unknown, unable to respond, she is nonsensical and delusional when she does Currently Displaying Signs/Symptoms of Drug Intoxication Withdrawal: No Other Past Substance Use Problem:: unknown, unable to respond, she is nonsensical and delusional when she does Spiritual Healthcare Practices: unknown, unable to respond, she is nonsensical and delusional when she does respond [facility] Pract[facility]: unknown, unable to respond, she is nonsensical and delusional when she does respond Cultural Healthcare Practices: unknown, unable to respond, she is nonsensical and delusional when she does respond Advance Directives: No Advance Directives Information Provided: No Do you have thoughts of harming others: None Do you have a plan to hurt others: No Plan Recently lost weight without trying: Unsure Patient : No : No Poor oral hygiene: No service: No Sexual orientation: Straight/Heterosexual Meds Allergies Allergy/AdvReac Type Severity Reaction Status Date / Time atropine Allergy Unknown Shortness Verified 12/02/23 23:30 of Breath enoxaparin [From Lovenox] Allergy Unknown Unknown Verified 12/02/23 23:30 penicillin V Allergy Unknown Unknown Verified 03/19/23 07:30 pseudoephedrine [Aprodine] Allergy Unknown Unknown Verified 03/19/23 07:30 triprolidine [Aprodine] Allergy Unknown Unknown Verified 03/19/23 07:30 Active Medications: Current Medications Acetaminophen (Acetaminophen 325 Mg Tablet) 650 mg PO Q6H PRN PRN Reason: Headache/Pain Mild Scale (1-3) Al Hydroxide/Mg Hydroxide (Magnesium Hydrox/Alum Hydrox 30 Ml Oral.Susp) 30 ml PO Q6H PRN PRN Reason: Heartburn/Nausea Amlodipine Besylate (Amlodipine Besylate 5 Mg Tablet) 5 mg PO DAILY [facility]; Protocol Last Admin: 12/14/23 09:54 Dose: Not Given Anastrozole (Anastrozole 1 Mg Tablet) 1 mg PO DAILY [facility] Last Admin: 12/14/23 09:54 Dose: Not Given Aspirin (Aspirin 81 Mg Tab.Chew) 81 mg PO DAILY [facility] Last Admin: 12/14/23 09:39 Dose: 81 mg Atorvastatin Calcium (Atorvastatin Calcium 10 Mg Tablet) 10 mg PO BEDTIME [facility] Last Admin: 12/13/23 21:13 Dose: Not Given Ferrous Sulfate (Ferrous Sulfate 324 Mg Tablet.Dr) 324 mg PO DAILY [facility] Last Admin: 12/14/23 09:54 Dose: Not Given Furosemide (Furosemide 20 Mg Tablet) 20 mg PO DAILY [facility]; Protocol Last Admin: 12/14/23 09:54 Dose: Not Given Glucose (Glucose Gel 15 Gm Gel..Gram.) 15 gm PO Q15M PRN; Protocol PRN Reason: per Hypoglycemia Standing Ord. Dextrose (D10) 250 mls @ 750 mls/hr IV Q15M PRN; Protocol PRN Reason: per Hypoglycemia Standing Ord. Insulin Glargine (Insulin Glargine,Hum.Rec.Anlog 100 Unit/Ml 10 Ml Vial) 6 unit SUBCUT BEDTIME [facility] Last Admin: 12/13/23 20:55 Dose: 6 unit Insulin Human Lispro (Insulin Lispro 100 Unit/Ml 3 Ml Vial) 0 unit SUBCUT QIDACHS [facility]; Protocol Last Admin: 12/14/23 07:59 Dose: Not Given Loratadine (Loratadine 10 Mg Tablet) 10 mg PO BEDTIME [facility] Last Admin: 12/13/23 21:13 Dose: Not Given Losartan Potassium (Losartan Potassium 50 Mg Tablet) 100 mg PO DAILY [facility]; Protocol Last Admin: 12/14/23 09:54 Dose: Not Given Magnesium Hydroxide (Milk Of Magnesia 30 Ml Oral.Susp) 30 ml PO DAILY PRN PRN Reason: Constipation Magnesium Oxide (Magnesium Oxide 400 Mg Tablet) 400 mg PO BID [facility] Last Admin: 12/14/23 09:54 Dose: Not Given Mirtazapine (Mirtazapine 30 Mg Tablet) 30 mg PO BEDTIME [facility] Last Admin: 12/13/23 21:14 Dose: Not Given Multivitamins/Vitamin C (Multivitamin Tablet) 1 tab PO DAILY [facility] Last Admin: 12/14/23 09:54 Dose: Not Given Nicotine Polacrilex (Nicotine Polacrilex 2 Mg Gum) 4 mg BUCCAL Q2H PRN PRN Reason: Nicotine Cravings Omeprazole (Omeprazole 20 Mg Capsule.Dr) 20 mg PO DAILY@0630 [facility] Last Admin: 12/14/23 09:31 Dose: Not Given Risperidone (Risperidone 0.5 Mg Tablet) 0.5 mg PO BID PRN PRN Reason: Restlessness Sodium Chloride (0.9 % Sodium Chloride Flush 10 Ml Syringe) 5 ml IVFLUSH QSHIFT [facility] Last Admin: 12/14/23 09:27 Dose: 5 ml Thiamine HCl (Thiamine Hcl 100 Mg Tablet) 100 mg PO DAILY [facility] Last Admin: 12/14/23 09:55 Dose: Not Given Trazodone HCl (Trazodone Hcl 50 Mg Tablet) 50 mg PO BEDTIME PRN PRN Reason: Insomnia Last Admin: 12/08/23 22:06 Dose: 50 mg Valproic Acid (Valproic Acid (As Sodium Salt) 250 Mg/5 Ml Solution) 250 mg PO BID [facility] Last Admin: 12/14/23 09:55 Dose: Not Given Vancomycin HCl (Vancomycin Hcl Oral Solution 125 Mg/5 Ml Soln.Recon) 125 mg PO Q6H [facility] Last Admin: 12/14/23 09:39 Dose: 125 mg Home Medications ?Medication ?Instructions ?Recorded ?Confirmed ?Last Taken ?Type ascorbate calcium (vitamin C) 500 500 mg PO DAILY 03/24/20 11/20/22 Unknown History mg tablet fluoxetine 20 mg capsule 40 mg PO DAILY 03/24/20 11/20/22 Unknown History levothyroxine 100 mcg tablet 100 mcg PO QAM 03/24/20 11/20/22 Unknown History mirtazapine 30 mg tablet 30 mg PO BEDTIME 03/24/20 11/20/22 Unknown History omeprazole 20 mg capsule,delayed 20 mg PO DAILY 03/24/20 11/20/22 Unknown History release risperidone 1 mg tablet 1 mg PO BEDTIME 03/24/20 11/20/22 Unknown History insulin glargine 100 unit/mL (3 30 unit subcut BEDTIME 09/28/20 11/20/22 Unknown History mL) subcutaneous pen anastrozole 1 mg tablet 1 mg PO DAILY 02/16/21 11/20/22 Unknown History dapagliflozin propanediol 10 mg 10 mg PO QAM 05/08/21 11/20/22 Unknown History tablet (Farxiga) losartan 50 mg tablet 50 mg PO DAILY 09/14/21 11/20/22 Unknown History amlodipine 5 mg tablet 5 mg PO QAM 12/02/23 12/02/23 Unknown History anastrozole 1 mg tablet 1 mg PO DAILY 12/02/23 12/02/23 Unknown History aspirin 81 mg chewable tablet 1 tab PO QAM 12/02/23 12/02/23 Unknown History cetirizine 5 mg tablet 5 mg PO BEDTIME 12/02/23 12/02/23 Unknown History divalproex 500 mg tablet,delayed 500 mg PO BEDTIME 12/02/23 12/02/23 Unknown History release ferrous sulfate 325 mg (65 mg 325 mg PO QAM 12/02/23 12/02/23 Unknown History iron) tablet (FeroSul) furosemide 20 mg tablet (Lasix) 20 mg PO DAILY 12/02/23 12/02/23 Unknown History insulin glargine 100 unit/mL 6 unit subcut BEDTIME 12/02/23 12/02/23 Unknown History subcutaneous solution insulin lispro 100 unit/mL 1 sliding scale dose subcut 12/02/23 12/02/23 Unknown History subcutaneous solution USEASDIRECTD levetiracetam 500 mg tablet 500 mg PO BID 12/02/23 12/02/23 Unknown History losartan 100 mg tablet 100 mg PO DAILY 12/02/23 12/02/23 Unknown History losartan 100 mg tablet 100 mg PO DAILY 12/02/23 12/02/23 Unknown History magnesium oxide 400 mg PO BID 12/02/23 12/02/23 Unknown History mirtazapine 30 mg disintegrating 30 mg PO BEDTIME 12/02/23 12/02/23 Unknown History tablet multivitamin with minerals 1 tab PO DAILY 12/02/23 12/02/23 Unknown History pantoprazole 40 mg tablet,delayed 40 mg PO DAILY 12/02/23 12/02/23 Unknown History release risperidone 0.5 mg tablet 0.5 mg PO BID PRN Agitation 12/02/23 12/02/23 Unknown History risperidone 2 mg tablet 2 mg PO BID 12/02/23 12/02/23 Unknown History simvastatin 20 mg tablet 20 mg PO BEDTIME 12/02/23 12/02/23 Unknown History thiamine HCl (vitamin B1) 100 mg 100 mg PO QAM 12/02/23 12/02/23 Unknown History tablet trazodone 50 mg tablet 50 mg PO BEDTIME PRN insomnia 12/02/23 12/02/23 Unknown History vancomycin 125 mg capsule See Rx Instructions .Route .COMPLEX 12/02/23 12/02/23 Unknown History (Vancocin) Physical Exam Vital Signs: Vital Signs: Last Vital Signs Temp 97 F 12/14/23 09:24 Pulse 59 12/14/23 09:24 Resp 16 12/14/23 09:24 BP 106/57 L 12/14/23 09:24 Pulse Ox 95 12/14/23 09:24 O2 Del Method Room Air 12/14/23 09:24 O2 Flow Rate 2 12/13/23 08:44 BMI result Body Mass Index 20.1 Const: General: cooperative, comfortable, alert and awake Nutritional Appearance: malnourished HEENT: Head: Yes normocephalic and Yes atraumatic Neck: Neck: Yes trachea midline, Yes supple and Yes no JVD Resp: Effort & Inspection: decreased respiratory effort Auscultation: clear to auscultation bilaterally and diminished lung sounds Cardio: Jugular venous distension: no JVD Palpation: normal PMI Rate: regular rate Rhythm: regular rhythm Heart sounds: S1 normal heart sound present, S2 normal heart sound present, no click, no gallops and no murmurs GI: Auscultation: normal bowel sounds Skin: General skin exam: no rashes or lesions noted Neuro: General: moves all extremities Extrem: General: Yes no clubbing, cyanosis or edema Objective Labs and Meds 12/09/23 09:57 12/14/23 07:37 Lab results: Laboratory Results - last 24 hr 12/13/23 12/13/23 12/14/23 16:26 19:57 06:32 Sodium Potassium Chloride Carbon Dioxide Anion Gap BUN Creatinine Estim Creat Clear Calc Estimated GFR POC Glucose 247 H 179 H 120 H Fasting Glucose Calcium Total Bilirubin AST ALT Alkaline Phosphatase Total Protein Albumin 12/14/23 07:37 Sodium 139 Potassium 4.2 Chloride 103 Carbon Dioxide 28 Anion Gap 12 BUN 25 H Creatinine 0.84 Estim Creat Clear Calc 39.4 Estimated GFR > 60 POC Glucose Fasting Glucose 135 H Calcium 10.0 Total Bilirubin 0.6 AST 43 H ALT 23 Alkaline Phosphatase 101 Total Protein 8.0 Albumin 3.0 L EKG shows normal sinus rhythm normal EKG Assessment and Plan (1) Preoperative cardiovascular examination: Status: Acute Preoperative cardiovascular examination for patient had appropriate ECT response with hyper adrenergic response unclear there was any symptoms associated with it. Unclear whether patient adequate sedation. Although this is not an unusual reaction to ECT therapy. She does have multiple cardiovascular risk factors for underlying coronary artery disease which can not be evaluated based on her symptoms or her physical capacity and does put her at risk with ECT therapy for having cardiovascular event. Ideally you would treat this with beta-sydni therapy although her baseline heart rate and blood pressure are low and I would not add any metoprolol therapy at this will lead to side effects related to therapy. Can consider if ECTs absolutely consider essential to pursue myocardial perfusion imaging as well as an echocardiogram to assess underlying cardiovascular structure and risk of therapy. On discussing with her about further therapy she uttered no , but was not further able to elucidate her response. If ECT is planned I would 1st risk stratify her with a vasodilating myocardial perfusion imaging with Lexiscan and also obtain an echocardiogram. Will sign of the case otherwise. Thank you for allowing me to partake in his care Procedures Date of Service Date of Service: 12/14/23
[2023-12-14 11:53] LABS: Glucose, Whole Blood 158 mg/dL (60-115)
--- NOTE | 2023-12-14 15:40 | PC.NURSE ---
Patient has finished her course of Vancomycin today and the medication was discontinued. quality coordinator provider, Mara Siegel had been notified and reached out to the hospitalist, who agreed that the pt can be taken off contact precautions d/t no recent loose stools and completed abx course.
[2023-12-14 16:11] LABS: Glucose, Whole Blood 128 mg/dL (60-115)
[2023-12-14 20:00] VITALS: BP 108/53; PULSE 67; TEMP 36.6; O2SAT 98
[2023-12-14 20:01] LABS: Glucose, Whole Blood 248 mg/dL (60-115)
[2023-12-14] MEDS: Insulin Glargine,Hum.rec.anlog 100 UNIT/ML 10 ML VIAL 6 UNIT SUBCUT (20:31)
[2023-12-14] MEDS: Insulin Lispro 100 UNIT/ML 3 ML VIAL SUBCUT (20:31)
[2023-12-14] MEDS: Magnesium Oxide 400 MG TABLET PO (20:32)
[2023-12-14] MEDS: Loratadine 10 MG TABLET PO (20:32)
[2023-12-14] MEDS: Atorvastatin Calcium 10 MG TABLET PO (20:32)
[2023-12-14] MEDS: Mirtazapine 30 MG TABLET PO (20:32)
[2023-12-15] MEDS: 0.9 % Sodium Chloride Flush 10 ML SYRINGE 5 ML IVFLUSH ×3 (01:10→16:07)
[2023-12-15] MEDS: Omeprazole 20 MG CAPSULE.DR PO (06:34)
[2023-12-15 06:42] LABS: Glucose, Whole Blood 92 mg/dL (60-115)
[2023-12-15 09:17] VITALS: BP 127/61; PULSE 64; RESP 16; TEMP 36.4; O2SAT 99
[2023-12-15] MEDS: amLODIPine Besylate 5 MG TABLET PO (09:48)
[2023-12-15] MEDS: Furosemide 20 MG TABLET PO (09:49)
[2023-12-15] MEDS: Losartan Potassium 50 MG TABLET 100 MG PO (09:49)
[2023-12-15] MEDS: Magnesium Oxide 400 MG TABLET PO (09:49)
[2023-12-15] MEDS: Thiamine HCL 100 MG TABLET PO (09:49)
[2023-12-15] MEDS: Aspirin 81 MG TAB.CHEW PO (09:49)
[2023-12-15] MEDS: Ferrous Sulfate 324 MG TABLET.DR PO (09:52)
[2023-12-15] MEDS: Multivitamin TABLET 1 TAB PO (09:52)
[2023-12-15] MEDS: Anastrozole 1 MG TABLET PO (09:54)
[2023-12-15 11:25] LABS: Glucose, Whole Blood 295 mg/dL (60-115)
[2023-12-15] MEDS: Insulin Lispro 100 UNIT/ML 3 ML VIAL SUBCUT ×2 (11:35→21:03)
[2023-12-15 16:11] LABS: Glucose, Whole Blood 142 mg/dL (60-115)
--- NOTE | 2023-12-15 16:17 | P.PNPSI_ITS ---
Subjective Subjective Date of Service: 12/15/23 Reason For Visit: Major depressive disorder, severe, recurrent Interim History: Pt seen today with an first cook. Reviewed with the team who report pt was more responsive last evening when they had her watch [employer]. Today she reports no sx of depression/anxiety but discomfort as she just had a wound dressing change. She ate breakfast, and overall team sees improvement today. Pt able to smile spontaneously when met with, she is more attentive and alert today. Medication Compliance: Yes Side effects from medications: No Review of Systems coccyx wound Medical Review of Systems: unchanged Review of Systems Review of Systems coccyx wound Mental Status Exam Mental Status Exam Patient Appearance: Fatigued Patient Orientation: Person Level of Consciousness: Alert Patient Behavior: Talkative and Good Eye Contact Mood Description: Flat Affect Description: Flat Ability to Follow Directions: Fair Speech Pattern: Spontaneous Speech Thought Content: positive for [place] and positive for Circumstantial Judgement: Poor Diagnostics Vital Signs (24Hr): Vital Signs - 24 hr 12/14/23 20:00 12/15/23 09:17 Temperature 97.9 F 97.5 F Pulse Rate 67 64 Respiratory Rate 16 Blood Pressure 108/53 L 127/61 Pulse Oximetry 98 99 Oxygen Delivery Method Room Air Room Air BMI result Body Mass Index 20.1 Labs 12/09/23 09:57 12/14/23 07:37 Labs: Laboratory Results - last 48 hr 12/13/23 12/13/23 12/14/23 16:26 19:57 06:32 Sodium Potassium Chloride Carbon Dioxide Anion Gap BUN Creatinine Estim Creat Clear Calc Estimated GFR POC Glucose 247 H 179 H 120 H Fasting Glucose Calcium Total Bilirubin AST ALT Alkaline Phosphatase Total Protein Albumin 12/14/23 12/14/23 12/14/23 07:37 11:48 16:05 Sodium 139 Potassium 4.2 Chloride 103 Carbon Dioxide 28 Anion Gap 12 BUN 25 H Creatinine 0.84 Estim Creat Clear Calc 39.4 Estimated GFR > 60 POC Glucose 158 H 128 H Fasting Glucose 135 H Calcium 10.0 Total Bilirubin 0.6 AST 43 H ALT 23 Alkaline Phosphatase 101 Total Protein 8.0 Albumin 3.0 L 12/14/23 12/15/23 12/15/23 19:57 06:34 11:20 Sodium Potassium Chloride Carbon Dioxide Anion Gap BUN Creatinine Estim Creat Clear Calc Estimated GFR POC Glucose 248 H 92 295 H Fasting Glucose Calcium Total Bilirubin AST ALT Alkaline Phosphatase Total Protein Albumin 12/15/23 16:06 Sodium Potassium Chloride Carbon Dioxide Anion Gap BUN Creatinine Estim Creat Clear Calc Estimated GFR POC Glucose 142 H Fasting Glucose Calcium Total Bilirubin AST ALT Alkaline Phosphatase Total Protein Albumin Imaging Radiology Impressions: ITS Impressions Chest X-Ray 12/03/23 12:20 IMPRESSION: 1. Chronic interstitial prominence without focal consolidative airspace opacity. 2. Densities along the left lower chest which may represent pleural calcifications versus soft tissue calcifications. Correlation with lateral radiograph could help further evaluate. Electronically signed by: Viral Smallwood MD 12/03/2023 01:33 PM EDT RP Head CT 12/03/23 13:17 IMPRESSION: 1. No acute intracranial abnormalities. No intracranial hemorrhage or mass effect. 2. Moderate small vessel ischemic changes in the hemispheric white matter. 3. 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 4. Age advanced cerebral and cerebellar involutional changes with prominent ventricles. Cannot definitively exclude a component of communicating hydrocephalus given the appearance. Head CT 12/10/23 21:05 IMPRESSION: No acute intracranial abnormality including hemorrhage, mass effect, hydrocephalus, or acute territorial edematous infarction. Electronically signed by: Juan Alberto Murdock MD 12/10/2023 10:07 PM EDT RP Medications Medications Current Medications Acetaminophen (Acetaminophen 325 Mg Tablet) 650 mg PO Q6H PRN PRN Reason: Headache/Pain Mild Scale (1-3) Al Hydroxide/Mg Hydroxide (Magnesium Hydrox/Alum Hydrox 30 Ml Oral.Susp) 30 ml PO Q6H PRN PRN Reason: Heartburn/Nausea Amlodipine Besylate (Amlodipine Besylate 5 Mg Tablet) 5 mg PO DAILY [facility]; Protocol Last Admin: 12/15/23 09:48 Dose: 5 mg Anastrozole (Anastrozole 1 Mg Tablet) 1 mg PO DAILY [facility] Last Admin: 12/15/23 09:54 Dose: 1 mg Aspirin (Aspirin 81 Mg Tab.Chew) 81 mg PO DAILY [facility] Last Admin: 12/15/23 09:49 Dose: 81 mg Atorvastatin Calcium (Atorvastatin Calcium 10 Mg Tablet) 10 mg PO BEDTIME [facility] Last Admin: 12/14/23 20:32 Dose: 10 mg Ferrous Sulfate (Ferrous Sulfate 324 Mg Tablet.Dr) 324 mg PO DAILY [facility] Last Admin: 12/15/23 09:52 Dose: 324 mg Furosemide (Furosemide 20 Mg Tablet) 20 mg PO DAILY [facility]; Protocol Last Admin: 12/15/23 09:49 Dose: 20 mg Glucose (Glucose Gel 15 Gm Gel..Gram.) 15 gm PO Q15M PRN; Protocol PRN Reason: per Hypoglycemia Standing Ord. Dextrose (D10) 250 mls @ 750 mls/hr IV Q15M PRN; Protocol PRN Reason: per Hypoglycemia Standing Ord. Insulin Glargine (Insulin Glargine,Hum.Rec.Anlog 100 Unit/Ml 10 Ml Vial) 6 unit SUBCUT BEDTIME [facility] Last Admin: 12/14/23 20:31 Dose: 6 unit Insulin Human Lispro (Insulin Lispro 100 Unit/Ml 3 Ml Vial) 0 unit SUBCUT QIDACHS [facility]; Protocol Last Admin: 12/15/23 11:35 Dose: 6 unit Loratadine (Loratadine 10 Mg Tablet) 10 mg PO BEDTIME [facility] Last Admin: 12/14/23 20:32 Dose: 10 mg Losartan Potassium (Losartan Potassium 50 Mg Tablet) 100 mg PO DAILY [facility]; Protocol Last Admin: 12/15/23 09:49 Dose: 100 mg Magnesium Hydroxide (Milk Of Magnesia 30 Ml Oral.Susp) 30 ml PO DAILY PRN PRN Reason: Constipation Magnesium Oxide (Magnesium Oxide 400 Mg Tablet) 400 mg PO BID [facility] Last Admin: 12/15/23 09:49 Dose: 400 mg Mirtazapine (Mirtazapine 30 Mg Tablet) 30 mg PO BEDTIME [facility] Last Admin: 12/14/23 20:32 Dose: 30 mg Multivitamins/Vitamin C (Multivitamin Tablet) 1 tab PO DAILY [facility] Last Admin: 12/15/23 09:52 Dose: 1 tab Nicotine Polacrilex (Nicotine Polacrilex 2 Mg Gum) 4 mg BUCCAL Q2H PRN PRN Reason: Nicotine Cravings Omeprazole (Omeprazole 20 Mg Capsule.) 20 mg PO DAILY@0630 [facility] Last Admin: 12/15/23 06:34 Dose: 20 mg Risperidone (Risperidone 0.5 Mg Tablet) 0.5 mg PO BID PRN PRN Reason: Restlessness Sodium Chloride (0.9 % Sodium Chloride Flush 10 Ml Syringe) 5 ml IVFLUSH QSHIFT [facility] Last Admin: 12/15/23 16:07 Dose: 5 ml Thiamine HCl (Thiamine Hcl 100 Mg Tablet) 100 mg PO DAILY [facility] Last Admin: 12/15/23 09:49 Dose: 100 mg Trazodone HCl (Trazodone Hcl 50 Mg Tablet) 50 mg PO BEDTIME PRN PRN Reason: Insomnia Last Admin: 12/08/23 22:06 Dose: 50 mg Valproic Acid (Valproic Acid (As Sodium Salt) 250 Mg/5 Ml Solution) 250 mg PO BID [facility] Last Admin: 12/15/23 09:55 Dose: 250 mg Allergies Allergies Allergy/AdvReac Type Severity Reaction Status Date / Time atropine Allergy Unknown Shortness Verified 12/02/23 23:30 of Breath enoxaparin [From Lovenox] Allergy Unknown Unknown Verified 12/02/23 23:30 penicillin V Allergy Unknown Unknown Verified 03/19/23 07:30 pseudoephedrine [Aprodine] Allergy Unknown Unknown Verified 03/19/23 07:30 triprolidine [Aprodine] Allergy Unknown Unknown Verified 03/19/23 07:30 Assessment & Plan Assessment & Plan (1) Preoperative cardiovascular examination: Status: Acute Code(s): Z01.810 - Encounter for preprocedural cardiovascular examination (2) Major depressive disorder with psychotic features: Status: Acute Code(s): F32.3 - Major depressive disorder, single episode, severe with psychotic features Assessment and Plan: 12/15/23: Continue tx plan Plan 73-year-old female with history of insulin-dependent type 2 diabetes, hypertension, hyperlipidemia, history of C diff colitis, hypothyroidism, heart failure preserved ejection fraction, cirrhosis admitted to [facility] for catatonia with consult placed to hospitalist service for ect risk stratification. Pt with class II risk on revised cardiac risk index given history of CHF though is clinically euvolemic on exam. Lungs are clear. Has known but no murmurs heard on exam. Would recommend checking EKG to assess for ECT prolongation prior to ECT treatment. Unable to assess ROS. Based on RCRI and known history of ECT with good tolerance there does not appear to be any acute medical contraindication that should preclude patient from undergoing ect. Appropriate anesthesia precautions should be taken given known history of BASIL. Pt also noted to have equal but fixed pupils on exam which was not noted on initial H&P. She is catatonic and unable to participate in further CN exam or provide history. Did have Head CT on 8/20 negative for acute intracranial abnormalities which showed moderate small-vessel ischemic changes in hemispheric white matter numerous old lacunar infarcts as well as age advanced cerebral and cerebellar involutional changes with prominent ventricles. At this time, recommend repeating head CT and can consider Neurology evaluation at discretion of psychiatrist Will continue following for results Reason for continued inpatient stay Substantial Risk for: rapid decompensation and med/psych decompensation Time Spent With Patient Time: Total time managing care of this patient today ____ minutes.
[2023-12-15 19:58] VITALS: BP 114/65; PULSE 69; RESP 16; TEMP 36.2; O2SAT 97
[2023-12-15 21:02] LABS: Glucose, Whole Blood 230 mg/dL (60-115)
[2023-12-15] MEDS: Insulin Glargine,Hum.rec.anlog 100 UNIT/ML 10 ML VIAL 6 UNIT SUBCUT (21:03)
[2023-12-16] MEDS: 0.9 % Sodium Chloride Flush 10 ML SYRINGE 5 ML IVFLUSH ×3 (01:14→16:06)
[2023-12-16] MEDS: Omeprazole 20 MG CAPSULE.DR PO (06:23)
[2023-12-16 06:48] LABS: Glucose, Whole Blood 90 mg/dL (60-115)
[2023-12-16] MEDS: Anastrozole 1 MG TABLET PO (08:29)
[2023-12-16] MEDS: Multivitamin TABLET 1 TAB PO (08:30)
[2023-12-16 08:34] VITALS: BP 103/57; PULSE 55; RESP 20; O2SAT 96
[2023-12-16] MEDS: Magnesium Oxide 400 MG TABLET PO (08:36)
[2023-12-16] MEDS: Losartan Potassium 50 MG TABLET 100 MG PO (08:36)
[2023-12-16] MEDS: Furosemide 20 MG TABLET PO (08:36)
[2023-12-16] MEDS: Thiamine HCL 100 MG TABLET PO (08:36)
[2023-12-16] MEDS: amLODIPine Besylate 5 MG TABLET PO (08:37)
[2023-12-16] MEDS: Ferrous Sulfate 324 MG TABLET.DR PO (08:37)
[2023-12-16] MEDS: Aspirin 81 MG TAB.CHEW PO (08:37)
--- NOTE | 2023-12-16 08:38 | P.PNPSI_ITS ---
Subjective Subjective Date of Service: 12/16/23 Reason For Visit: Major depressive disorder, severe, recurrent Interim History: Pt seen, discussed with her team. Spending time on the terrace today which she enjoyed. Team report she has informed them she believes her food is being poisoned. Calm, in NAD, attentive Medication Compliance: Intermittent Side effects from medications: No Attending Groups: Yes Review of Systems wound care Medical Review of Systems: unchanged Review of Systems Review of Systems coccyx wound Yes Unobtainable due to mental status Mental Status Exam Mental Status Exam Patient Appearance: Fatigued Patient Orientation: Person Level of Consciousness: Alert Patient Behavior: Talkative and Good Eye Contact Mood Description: Flat Affect Description: Flat Ability to Follow Directions: Fair Speech Pattern: Spontaneous Speech Thought Content: positive for [place] and positive for Circumstantial Judgement: Poor Diagnostics Vital Signs (24Hr): Vital Signs - 24 hr 12/15/23 09:17 12/15/23 19:58 12/16/23 08:34 Temperature 97.5 F 97.2 F Pulse Rate 64 69 55 Respiratory Rate 16 16 20 Blood Pressure 127/61 114/65 103/57 L Pulse Oximetry 99 97 96 Oxygen Delivery Method Room Air Room Air Room Air BMI result Body Mass Index 20.1 Labs 12/09/23 09:57 12/14/23 07:37 Labs: Laboratory Results - last 48 hr 12/14/23 12/14/23 12/14/23 11:48 16:05 19:57 POC Glucose 158 H 128 H 248 H 12/15/23 12/15/23 12/15/23 06:34 11:20 16:06 POC Glucose 92 295 H 142 H 12/15/23 12/16/23 20:24 06:30 POC Glucose 230 H 90 Imaging Radiology Impressions: ITS Impressions Chest X-Ray 12/03/23 12:20 IMPRESSION: 1. Chronic interstitial prominence without focal consolidative airspace opacity. 2. Densities along the left lower chest which may represent pleural calcifications versus soft tissue calcifications. Correlation with lateral radiograph could help further evaluate. Electronically signed by: Viral Smallwood MD 12/03/2023 01:[address] 12/03/23 13:17 IMPRESSION: 1. No acute intracranial abnormalities. No intracranial hemorrhage or mass effect. 2. Moderate small vessel ischemic changes in the hemispheric white matter. 3. 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 4. Age advanced cerebral and cerebellar involutional changes with prominent ventricles. Cannot definitively exclude a component of communicating hydrocephalus given the appearance. Head CT 12/10/23 21:05 IMPRESSION: No acute intracranial abnormality including hemorrhage, mass effect, hydrocephalus, or acute territorial edematous infarction. Electronically signed by: Juan Alberto Murdock MD 12/10/2023 10:07 PM EDT Medications Medications Current Medications Acetaminophen (Acetaminophen 325 Mg Tablet) 650 mg PO Q6H PRN PRN Reason: Headache/Pain Mild Scale (1-3) Al Hydroxide/Mg Hydroxide (Magnesium Hydrox/Alum Hydrox 30 Ml Oral.Susp) 30 ml PO Q6H PRN PRN Reason: Heartburn/Nausea Amlodipine Besylate (Amlodipine Besylate 5 Mg Tablet) 5 mg PO DAILY [facility]; Protocol Last Admin: 12/15/23 09:48 Dose: 5 mg Anastrozole (Anastrozole 1 Mg Tablet) 1 mg PO DAILY [facility] Last Admin: 12/16/23 08:29 Dose: 1 mg Aspirin (Aspirin 81 Mg Tab.Chew) 81 mg PO DAILY [facility] Last Admin: 12/15/23 09:49 Dose: 81 mg Atorvastatin Calcium (Atorvastatin Calcium 10 Mg Tablet) 10 mg PO BEDTIME [facility] Last Admin: 12/15/23 20:34 Dose: Not Given Ferrous Sulfate (Ferrous Sulfate 324 Mg Tablet.Dr) 324 mg PO DAILY [facility] Last Admin: 12/15/23 09:52 Dose: 324 mg Furosemide (Furosemide 20 Mg Tablet) 20 mg PO DAILY [facility]; Protocol Last Admin: 12/15/23 09:49 Dose: 20 mg Glucose (Glucose Gel 15 Gm Gel..Gram.) 15 gm PO Q15M PRN; Protocol PRN Reason: per Hypoglycemia Standing Ord. Dextrose (D10) 250 mls @ 750 mls/hr IV Q15M PRN; Protocol PRN Reason: per Hypoglycemia Standing Ord. Insulin Glargine (Insulin Glargine,Hum.Rec.Anlog 100 Unit/Ml 10 Ml Vial) 6 unit SUBCUT BEDTIME [facility] Last Admin: 12/15/23 21:03 Dose: 6 unit Insulin Human Lispro (Insulin Lispro 100 Unit/Ml 3 Ml Vial) 0 unit SUBCUT QIDACHS [facility]; Protocol Last Admin: 12/16/23 08:28 Dose: Not Given Loratadine (Loratadine 10 Mg Tablet) 10 mg PO BEDTIME [facility] Last Admin: 12/15/23 20:34 Dose: Not Given Losartan Potassium (Losartan Potassium 50 Mg Tablet) 100 mg PO DAILY [facility]; Protocol Last Admin: 12/15/23 09:49 Dose: 100 mg Magnesium Hydroxide (Milk Of Magnesia 30 Ml Oral.Susp) 30 ml PO DAILY PRN PRN Reason: Constipation Magnesium Oxide (Magnesium Oxide 400 Mg Tablet) 400 mg PO BID [facility] Last Admin: 12/15/23 20:34 Dose: Not Given Mirtazapine (Mirtazapine 30 Mg Tablet) 30 mg PO BEDTIME [facility] Last Admin: 12/15/23 20:34 Dose: Not Given Multivitamins/Vitamin C (Multivitamin Tablet) 1 tab PO DAILY [facility] Last Admin: 12/16/23 08:30 Dose: 1 tab Nicotine Polacrilex (Nicotine Polacrilex 2 Mg Gum) 4 mg BUCCAL Q2H PRN PRN Reason: Nicotine Cravings Omeprazole (Omeprazole 20 Mg Capsule.Dr) 20 mg PO DAILY@0630 [facility] Last Admin: 12/16/23 06:23 Dose: 20 mg Risperidone (Risperidone 0.5 Mg Tablet) 0.5 mg PO BID PRN PRN Reason: Restlessness Sodium Chloride (0.9 % Sodium Chloride Flush 10 Ml Syringe) 5 ml IVFLUSH QSHIFT [facility] Last Admin: 12/16/23 01:14 Dose: 5 ml Thiamine HCl (Thiamine Hcl 100 Mg Tablet) 100 mg PO DAILY [facility] Last Admin: 12/15/23 09:49 Dose: 100 mg Trazodone HCl (Trazodone Hcl 50 Mg Tablet) 50 mg PO BEDTIME PRN PRN Reason: Insomnia Last Admin: 12/08/23 22:06 Dose: 50 mg Valproic Acid (Valproic Acid (As Sodium Salt) 250 Mg/5 Ml Solution) 250 mg PO BID [facility] Last Admin: 12/16/23 08:30 Dose: 250 mg Allergies Allergies Allergy/AdvReac Type Severity Reaction Status Date / Time atropine Allergy Unknown Shortness Verified 12/02/23 23:30 of Breath enoxaparin [From Lovenox] Allergy Unknown Unknown Verified 12/02/23 23:30 penicillin V Allergy Unknown Unknown Verified 03/19/23 07:30 pseudoephedrine [Aprodine] Allergy Unknown Unknown Verified 03/19/23 07:30 triprolidine [Aprodine] Allergy Unknown Unknown Verified 03/19/23 07:30 Assessment & Plan Assessment & Plan (1) Major depressive disorder with psychotic features: Status: Acute Code(s): F32.3 - Major depressive disorder, single episode, severe with psychotic features Assessment and Plan: 12/15/23: Continue tx plan Plan 73-year-old female with history of insulin-dependent type 2 diabetes, hypertension, hyperlipidemia, history of C diff colitis, hypothyroidism, heart failure preserved ejection fraction, cirrhosis admitted to [facility] for catatonia with consult placed to hospitalist service for ect risk stratification. Pt with class II risk on revised cardiac risk index given history of CHF though is clinically euvolemic on exam. Lungs are clear. Has known but no murmurs heard on exam. Would recommend checking EKG to assess for ECT prolongation prior to ECT treatment. Unable to assess ROS. Based on RCRI and known history of ECT with good tolerance there does not appear to be any acute medical contraindication that should preclude patient from undergoing ect. Appropriate anesthesia precautions should be taken given known history of BASIL. Pt also noted to have equal but fixed pupils on exam which was not noted on initial H&P. She is catatonic and unable to participate in further CN exam or provide history. Did have Head CT on 12/02 negative for acute intracranial abnormalities which showed moderate small-vessel ischemic changes in hemispheric white matter numerous old lacunar infarcts as well as age advanced cerebral and cerebellar involutional changes with prominent ventricles. At this time, recommend repeating head CT and can consider Neurology evaluation at discretion of psychiatrist Will continue following for results 12/16/23: Continue plan of care Reason for continued inpatient stay Substantial Risk for: med/psych decompensation Time Spent With Patient Time: Total time managing care of this patient today ____ minutes.
[2023-12-16 11:17] LABS: Glucose, Whole Blood 136 mg/dL (60-115)
[2023-12-16 16:23] LABS: Glucose, Whole Blood 186 mg/dL (60-115)
[2023-12-16] MEDS: Insulin Lispro 100 UNIT/ML 3 ML VIAL SUBCUT (16:52)
[2023-12-16 20:00] VITALS: BP 117/58; PULSE 59; RESP 16; TEMP 36.3; O2SAT 98
[2023-12-16 20:28] LABS: Glucose, Whole Blood 196 mg/dL (60-115)
[2023-12-17] MEDS: 0.9 % Sodium Chloride Flush 10 ML SYRINGE 5 ML IVFLUSH ×3 (00:23→16:29)
[2023-12-17 06:46] LABS: Glucose, Whole Blood 139 mg/dL (60-115)
[2023-12-17 08:19] VITALS: BP 118/71; PULSE 63; RESP 15; TEMP 36.9; O2SAT 95
[2023-12-17] MEDS: Multivitamin TABLET 1 TAB PO (08:22)
[2023-12-17] MEDS: Magnesium Oxide 400 MG TABLET PO ×2 (08:23→21:14)
[2023-12-17] MEDS: Anastrozole 1 MG TABLET PO (08:23)
[2023-12-17] MEDS: Furosemide 20 MG TABLET PO (08:23)
[2023-12-17] MEDS: Aspirin 81 MG TAB.CHEW PO (08:23)
[2023-12-17] MEDS: amLODIPine Besylate 5 MG TABLET PO (08:23)
[2023-12-17] MEDS: Ferrous Sulfate 324 MG TABLET.DR PO (08:23)
[2023-12-17] MEDS: Thiamine HCL 100 MG TABLET PO (08:23)
[2023-12-17 08:24] LABS: Valproate 24.9 mcg/mL (50.0-100.0)
--- NOTE | 2023-12-17 11:34 | HO.PSYCHPN ---
Subjective Subjective Date of Service: 12/17/23 Reason For Visit: Major depressive disorder, severe, recurrent Subjective Notes: Conditional Voluntary Healthcare Proxy: Yes Interim History: Nursing staff reported the patient has denies suicidal or homicidal thoughts. She had refused her breakfast and lunch yesterday and she has refused vital signs 2. After her ECT last Saturday, the patient had been able to verbalize refusal of treatment that it is more interaction than before. On interview the patient remains on her bed states that she is okay. Still nearly catatonic. ECT scheduled for tomorrow Mental Status Exam Mental Status Exam Patient Appearance: Appropriate and Unkempt Patient Orientation: Person Level of Consciousness: Awake Patient Behavior: Guarded and Passive Mood Description: Withdrawn Affect Description: Blunted Patient Cognition Impaired: Yes Ability to Follow Directions: Poor Speech Pattern: Impoverished Hallucinations: None Delusions: Paranoid Ideation and Ideas of Reference Thought Process: Distracted and Slowed Thinking Thought Content: positive for [place] and positive for Thought Blocking Judgement: Poor Diagnostics Vital Signs (24Hr): Vital Signs - 24 hr 12/16/23 20:00 12/17/23 08:19 Temperature 97.3 F 98.4 F Pulse Rate 59 63 Respiratory Rate 16 15 Blood Pressure 117/58 L 118/71 Pulse Oximetry 98 95 Oxygen Delivery Method Room Air Room Air BMI result Body Mass Index 20.1 Labs 12/09/23 09:57 12/14/23 07:37 Labs: Laboratory Results - last 48 hr 12/15/23 12/15/23 12/16/23 16:06 20:24 06:30 POC Glucose 142 H 230 H 90 Valproic Acid 12/16/23 12/16/23 12/16/23 11:13 16:19 20:22 POC Glucose 136 H 186 H 196 H Valproic Acid 12/17/23 12/17/23 06:40 08:06 POC Glucose 139 H Valproic Acid 24.9 L Imaging Radiology Impressions: ITS Impressions Chest X-Ray 12/03/23 12:20 IMPRESSION: 1. Chronic interstitial prominence without focal consolidative airspace opacity. 2. Densities along the left lower chest which may represent pleural calcifications versus soft tissue calcifications. Correlation with lateral radiograph could help further evaluate. Electronically signed by: Viral Smallwood MD 12/03/2023 01:33 PM EDT RP Head CT 12/03/23 13:17 IMPRESSION: 1. No acute intracranial abnormalities. No intracranial hemorrhage or mass effect. 2. Moderate small vessel ischemic changes in the hemispheric white matter. 3. 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 4. Age advanced cerebral and cerebellar involutional changes with prominent ventricles. Cannot definitively exclude a component of communicating hydrocephalus given the appearance. Head CT 12/10/23 21:05 IMPRESSION: No acute intracranial abnormality including hemorrhage, mass effect, hydrocephalus, or acute territorial edematous infarction. Electronically signed by: Juan Alberto Murdock MD 12/10/2023 10:07 PM EDT Medications Medications Current Medications Acetaminophen (Acetaminophen 325 Mg Tablet) 650 mg PO Q6H PRN PRN Reason: Headache/Pain Mild Scale (1-3) Al Hydroxide/Mg Hydroxide (Magnesium Hydrox/Alum Hydrox 30 Ml Oral.Susp) 30 ml PO Q6H PRN PRN Reason: Heartburn/Nausea Amlodipine Besylate (Amlodipine Besylate 5 Mg Tablet) 5 mg PO DAILY [facility]; Protocol Last Admin: 12/17/23 08:23 Dose: 5 mg Anastrozole (Anastrozole 1 Mg Tablet) 1 mg PO DAILY [facility] Last Admin: 12/17/23 08:23 Dose: 1 mg Aspirin (Aspirin 81 Mg Tab.Chew) 81 mg PO DAILY [facility] Last Admin: 12/17/23 08:23 Dose: 81 mg Atorvastatin Calcium (Atorvastatin Calcium 10 Mg Tablet) 10 mg PO BEDTIME [facility] Last Admin: 12/16/23 22:03 Dose: Not Given Ferrous Sulfate (Ferrous Sulfate 324 Mg Tablet.) 324 mg PO DAILY [facility] Last Admin: 12/17/23 08:23 Dose: 324 mg Furosemide (Furosemide 20 Mg Tablet) 20 mg PO DAILY [facility]; Protocol Last Admin: 12/17/23 08:23 Dose: 20 mg Glucose (Glucose Gel 15 Gm Gel..Gram.) 15 gm PO Q15M PRN; Protocol PRN Reason: per Hypoglycemia Standing Ord. Dextrose (D10) 250 mls @ 750 mls/hr IV Q15M PRN; Protocol PRN Reason: per Hypoglycemia Standing Ord. Insulin Glargine (Insulin Glargine,Hum.Rec.Anlog 100 Unit/Ml 10 Ml Vial) 6 unit SUBCUT BEDTIME [facility] Last Admin: 12/16/23 22:03 Dose: Not Given Insulin Human Lispro (Insulin Lispro 100 Unit/Ml 3 Ml Vial) 0 unit SUBCUT QIDACHS [facility]; Protocol Last Admin: 12/17/23 08:27 Dose: Not Given Loratadine (Loratadine 10 Mg Tablet) 10 mg PO BEDTIME [facility] Last Admin: 12/16/23 22:04 Dose: Not Given Losartan Potassium (Losartan Potassium 50 Mg Tablet) 100 mg PO DAILY [facility]; Protocol Last Admin: 12/17/23 10:15 Dose: Not Given Magnesium Hydroxide (Milk Of Magnesia 30 Ml Oral.Susp) 30 ml PO DAILY PRN PRN Reason: Constipation Magnesium Oxide (Magnesium Oxide 400 Mg Tablet) 400 mg PO BID [facility] Last Admin: 12/17/23 08:23 Dose: 400 mg Mirtazapine (Mirtazapine 30 Mg Tablet) 30 mg PO BEDTIME [facility] Last Admin: 12/16/23 22:04 Dose: Not Given Multivitamins/Vitamin C (Multivitamin Tablet) 1 tab PO DAILY [facility] Last Admin: 12/17/23 08:22 Dose: 1 tab Nicotine Polacrilex (Nicotine Polacrilex 2 Mg Gum) 4 mg BUCCAL Q2H PRN PRN Reason: Nicotine Cravings Omeprazole (Omeprazole 20 Mg Capsule.Dr) 20 mg PO DAILY@0630 [facility] Last Admin: 12/17/23 06:33 Dose: Not Given Risperidone (Risperidone 0.5 Mg Tablet) 0.5 mg PO BID PRN PRN Reason: Restlessness Sodium Chloride (0.9 % Sodium Chloride Flush 10 Ml Syringe) 5 ml IVFLUSH QSHIFT [facility] Last Admin: 12/17/23 08:23 Dose: 5 ml Thiamine HCl (Thiamine Hcl 100 Mg Tablet) 100 mg PO DAILY [facility] Last Admin: 12/17/23 08:23 Dose: 100 mg Trazodone HCl (Trazodone Hcl 50 Mg Tablet) 50 mg PO BEDTIME PRN PRN Reason: Insomnia Last Admin: 12/08/23 22:06 Dose: 50 mg Valproic Acid (Valproic Acid (As Sodium Salt) 250 Mg/5 Ml Solution) 250 mg PO BID [facility] Last Admin: 12/17/23 08:36 Dose: Not Given Allergies Allergies Allergy/AdvReac Type Severity Reaction Status Date / Time atropine Allergy Unknown Shortness Verified 12/02/23 23:30 of Breath enoxaparin [From Lovenox] Allergy Unknown Unknown Verified 12/02/23 23:30 penicillin V Allergy Unknown Unknown Verified 03/19/23 07:30 pseudoephedrine [Aprodine] Allergy Unknown Unknown Verified 03/19/23 07:30 triprolidine [Aprodine] Allergy Unknown Unknown Verified 03/19/23 07:30 Assessment & Plan Assessment & Plan (1) Major depressive disorder with psychotic features: Status: Acute Code(s): F32.3 - Major depressive disorder, single episode, severe with psychotic features Assessment and Plan: 12/15/23: Continue tx plan Plan 73-year-old female with history of insulin-dependent type 2 diabetes, hypertension, hyperlipidemia, history of C diff colitis, hypothyroidism, heart failure preserved ejection fraction, cirrhosis admitted to [facility] for catatonia with consult placed to hospitalist service for ect risk stratification. Pt with class II risk on revised cardiac risk index given history of CHF though is clinically euvolemic on exam. Lungs are clear. Has known but no murmurs heard on exam. Would recommend checking EKG to assess for ECT prolongation prior to ECT treatment. Unable to assess ROS. Based on RCRI and known history of ECT with good tolerance there does not appear to be any acute medical contraindication that should preclude patient from undergoing ect. Appropriate anesthesia precautions should be taken given known history of BASIL. Pt also noted to have equal but fixed pupils on exam which was not noted on initial H&P. She is catatonic and unable to participate in further CN exam or provide history. Did have Head CT on 12/02 negative for acute intracranial abnormalities which showed moderate small-vessel ischemic changes in hemispheric white matter numerous old lacunar infarcts as well as age advanced cerebral and cerebellar involutional changes with prominent ventricles. At this time, recommend repeating head CT and can consider Neurology evaluation at discretion of psychiatrist Will continue following for results Plan 1. Continue with same treatment. 2. Continue with ECT for tomorrow. Reason for continued inpatient stay Substantial Risk for: inability to function, rapid decompensation and med/psych decompensation Time Spent With Patient Time: Total time managing care of this patient today __20__ minutes.
[2023-12-17 11:39] LABS: Glucose, Whole Blood 194 mg/dL (60-115)
[2023-12-17 20:00] VITALS: BP 106/58; PULSE 60; RESP 16; TEMP 36.6; O2SAT 99
[2023-12-17 20:04] LABS: Glucose, Whole Blood 207 mg/dL (60-115)
[2023-12-17] MEDS: Loratadine 10 MG TABLET PO (21:14)
[2023-12-17] MEDS: Mirtazapine 30 MG TABLET PO (21:14)
[2023-12-17] MEDS: Atorvastatin Calcium 10 MG TABLET PO (21:14)
[2023-12-18] VITALS (10 sets, daily range): BP systolic 107–179; BP diastolic 56–88; PULSE 58–95; RESP 16–18; TEMP 36.1–36.3; O2SAT 96–100
[2023-12-18] MEDS: 0.9 % Sodium Chloride Flush 10 ML SYRINGE 5 ML IVFLUSH ×3 (00:25→17:13)
[2023-12-18 06:53] LABS: Glucose, Whole Blood 146 mg/dL (60-115)
[2023-12-18 11:37] LABS: Glucose, Whole Blood 149 mg/dL (60-115)
--- NOTE | 2023-12-18 13:51 | HO.PSYCHPN ---
Subjective Subjective Date of Service: 12/18/23 Reason For Visit: Major depressive disorder, severe, recurrent Subjective Notes: Conditional Voluntary Healthcare Proxy: Yes Interim History: The nursing staff reported the patient has spent most of the time in her bed. The occupational therapist noticed the patient was able to drink liquids without the Stroll by herself. She is slightly more active but still catatonic. On interview the patient refused to engage in conversation and she was a little more verbal. Scheduled to do ECT today Mental Status Exam Mental Status Exam Patient Appearance: Appropriate Patient Orientation: Person and Situation Level of Consciousness: Awake and Appropriate Patient Behavior: Guarded and Passive Mood Description: Withdrawn Affect Description: Constricted Patient Cognition Impaired: Yes Ability to Follow Directions: Good Speech Pattern: Clear Hallucinations: None Delusions: Ideas of Reference Thought Process: Distracted and Slowed Thinking Thought Content: positive for Swisher and positive for Poverty of Content Judgement: Fair Diagnostics Vital Signs (24Hr): Vital Signs - 24 hr 12/17/23 20:00 12/18/23 09:18 Temperature 97.8 F 97.0 F Pulse Rate 60 58 Respiratory Rate 16 16 Blood Pressure 106/58 L 107/56 L Pulse Oximetry 99 97 Oxygen Delivery Method Room Air Room Air BMI result Body Mass Index 20.1 Labs 12/09/23 09:57 12/14/23 07:37 Labs: Laboratory Results - last 48 hr 12/16/23 12/16/23 12/17/23 16:19 20:22 06:40 POC Glucose 186 H 196 H 139 H Valproic Acid 12/17/23 12/17/23 12/17/23 08:06 11:34 19:59 POC Glucose 194 H 207 H Valproic Acid 24.9 L 12/18/23 12/18/23 06:40 11:31 POC Glucose 146 H 149 H Valproic Acid Imaging Radiology Impressions: ITS Impressions Chest X-Ray 12/03/23 12:20 IMPRESSION: 1. Chronic interstitial prominence without focal consolidative airspace opacity. 2. Densities along the left lower chest which may represent pleural calcifications versus soft tissue calcifications. Correlation with lateral radiograph could help further evaluate. Electronically signed by: Viral Smallwood MD 12/03/2023 01:[address] 12/03/23 13:17 IMPRESSION: 1. No acute intracranial abnormalities. No intracranial hemorrhage or mass effect. 2. Moderate small vessel ischemic changes in the hemispheric white matter. 3. 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 4. Age advanced cerebral and cerebellar involutional changes with prominent ventricles. Cannot definitively exclude a component of communicating hydrocephalus given the appearance. Head CT 12/10/23 21:05 IMPRESSION: No acute intracranial abnormality including hemorrhage, mass effect, hydrocephalus, or acute territorial edematous infarction. Electronically signed by: Juan Alberto Murdock MD 12/10/2023 10:07 PM EDT Medications Medications Current Medications Acetaminophen (Acetaminophen 325 Mg Tablet) 650 mg PO Q6H PRN PRN Reason: Headache/Pain Mild Scale (1-3) Al Hydroxide/Mg Hydroxide (Magnesium Hydrox/Alum Hydrox 30 Ml Oral.Susp) 30 ml PO Q6H PRN PRN Reason: Heartburn/Nausea Amlodipine Besylate (Amlodipine Besylate 5 Mg Tablet) 5 mg PO DAILY [facility]; Protocol Last Admin: 12/18/23 09:34 Dose: Not Given Anastrozole (Anastrozole 1 Mg Tablet) 1 mg PO DAILY [facility] Last Admin: 12/18/23 09:34 Dose: Not Given Aspirin (Aspirin 81 Mg Tab.Chew) 81 mg PO DAILY [facility] Last Admin: 12/18/23 09:34 Dose: Not Given Atorvastatin Calcium (Atorvastatin Calcium 10 Mg Tablet) 10 mg PO BEDTIME [facility] Last Admin: 12/17/23 21:14 Dose: 10 mg Ferrous Sulfate (Ferrous Sulfate 324 Mg Tablet.Dr) 324 mg PO DAILY [facility] Last Admin: 12/18/23 09:35 Dose: Not Given Furosemide (Furosemide 20 Mg Tablet) 20 mg PO DAILY [facility]; Protocol Last Admin: 12/18/23 09:35 Dose: Not Given Glucose (Glucose Gel 15 Gm Gel..Gram.) 15 gm PO Q15M PRN; Protocol PRN Reason: per Hypoglycemia Standing Ord. Dextrose (D10) 250 mls @ 750 mls/hr IV Q15M PRN; Protocol PRN Reason: per Hypoglycemia Standing Ord. Insulin Glargine (Insulin Glargine,Hum.Rec.Anlog 100 Unit/Ml 10 Ml Vial) 6 unit SUBCUT BEDTIME [facility] Last Admin: 12/17/23 21:15 Dose: Not Given Insulin Human Lispro (Insulin Lispro 100 Unit/Ml 3 Ml Vial) 0 unit SUBCUT QIDACHS [facility]; Protocol Last Admin: 12/18/23 11:42 Dose: Not Given Loratadine (Loratadine 10 Mg Tablet) 10 mg PO BEDTIME [facility] Last Admin: 12/17/23 21:14 Dose: 10 mg Losartan Potassium (Losartan Potassium 50 Mg Tablet) 100 mg PO DAILY [facility]; Protocol Last Admin: 12/18/23 09:35 Dose: Not Given Magnesium Hydroxide (Milk Of Magnesia 30 Ml Oral.Susp) 30 ml PO DAILY PRN PRN Reason: Constipation Magnesium Oxide (Magnesium Oxide 400 Mg Tablet) 400 mg PO BID [facility] Last Admin: 12/18/23 09:34 Dose: Not Given Mirtazapine (Mirtazapine 30 Mg Tablet) 30 mg PO BEDTIME [facility] Last Admin: 12/17/23 21:14 Dose: 30 mg Multivitamins/Vitamin C (Multivitamin Tablet) 1 tab PO DAILY [facility] Last Admin: 12/18/23 09:34 Dose: Not Given Nicotine Polacrilex (Nicotine Polacrilex 2 Mg Gum) 4 mg BUCCAL Q2H PRN PRN Reason: Nicotine Cravings Omeprazole (Omeprazole 20 Mg Capsule.Dr) 20 mg PO DAILY@0630 [facility] Last Admin: 12/18/23 09:34 Dose: Not Given Risperidone (Risperidone 0.5 Mg Tablet) 0.5 mg PO BID PRN PRN Reason: Restlessness Sodium Chloride (0.9 % Sodium Chloride Flush 10 Ml Syringe) 5 ml IVFLUSH QSHIFT [facility] Last Admin: 12/18/23 09:20 Dose: 5 ml Thiamine HCl (Thiamine Hcl 100 Mg Tablet) 100 mg PO DAILY [facility] Last Admin: 12/18/23 09:34 Dose: Not Given Trazodone HCl (Trazodone Hcl 50 Mg Tablet) 50 mg PO BEDTIME PRN PRN Reason: Insomnia Last Admin: 12/08/23 22:06 Dose: 50 mg Valproic Acid (Valproic Acid (As Sodium Salt) 250 Mg/5 Ml Solution) 250 mg PO BID [facility] Last Admin: 12/18/23 09:26 Dose: Not Given Allergies Allergies Allergy/AdvReac Type Severity Reaction Status Date / Time atropine Allergy Unknown Shortness Verified 12/02/23 23:30 of Breath enoxaparin [From Lovenox] Allergy Unknown Unknown Verified 12/02/23 23:30 penicillin V Allergy Unknown Unknown Verified 03/19/23 07:30 pseudoephedrine [Aprodine] Allergy Unknown Unknown Verified 03/19/23 07:30 triprolidine [Aprodine] Allergy Unknown Unknown Verified 03/19/23 07:30 Assessment & Plan Assessment & Plan (1) Major depressive disorder with psychotic features: Status: Acute Code(s): F32.3 - Major depressive disorder, single episode, severe with psychotic features Assessment and Plan: 12/15/23: Continue tx plan Plan 73-year-old female with history of insulin-dependent type 2 diabetes, hypertension, hyperlipidemia, history of C diff colitis, hypothyroidism, heart failure preserved ejection fraction, cirrhosis admitted to [facility] for catatonia with consult placed to hospitalist service for ect risk stratification. Pt with class II risk on revised cardiac risk index given history of CHF though is clinically euvolemic on exam. Lungs are clear. Has known but no murmurs heard on exam. Would recommend checking EKG to assess for ECT prolongation prior to ECT treatment. Unable to assess ROS. Based on RCRI and known history of ECT with good tolerance there does not appear to be any acute medical contraindication that should preclude patient from undergoing ect. Appropriate anesthesia precautions should be taken given known history of BASIL. Pt also noted to have equal but fixed pupils on exam which was not noted on initial H&P. She is catatonic and unable to participate in further CN exam or provide history. Did have Head CT on 12/02 negative for acute intracranial abnormalities which showed moderate small-vessel ischemic changes in hemispheric white matter numerous old lacunar infarcts as well as age advanced cerebral and cerebellar involutional changes with prominent ventricles. At this time, recommend repeating head CT and can consider Neurology evaluation at discretion of psychiatrist Will continue following for results Plan 1. Continue with same treatment. 2. Continue with ECT for tomorrow. Reason for continued inpatient stay Substantial Risk for: inability to function, rapid decompensation and med/psych decompensation Time Spent With Patient Time: Total time managing care of this patient today __20__ minutes.
--- NOTE | 2023-12-18 13:51 | MHC.CLN ---
F/U DIET=REGULAR. ENSURE MAX BID PROVIDES 300 KCALS, 60 G PROTEIN. CONTINUES WITH VERY POOR PO INTAKE. STAGE II PRESSURE INJURY TO COCCYX. MONITOR FOR PLAN OF CARE, INTAKE, AND WOUND HEALING. RD TO FOLLOW WEEKLY.
[2023-12-18 16:36] LABS: Glucose, Whole Blood 126 mg/dL (60-115)
[2023-12-18 20:06] LABS: Glucose, Whole Blood 134 mg/dL (60-115)
--- NOTE | 2023-12-18 20:41 | HO.ANESPROP2 ---
[facility] Active Problems Active Problems: All Active Problems Hx of Clostridium difficile infection (Acute) Preoperative cardiovascular examination (Acute) Catatonia (Acute) Fixed constriction of pupil (Acute) Major depressive disorder with psychotic features (Acute) Dark stools (Acute) Routine medical exam (Acute) Essential hypertension (Acute) Type 2 diabetes mellitus with unspecified complications (Acute) Aortic valve sclerosis (Acute) Murmur (Acute) CKD (chronic kidney disease) stage 3, GFR 30-59 ml/min (Acute) Vitamin D deficiency (Acute) HLD (hyperlipidemia) (Acute) HTN (hypertension) (Acute) T2DM (type 2 diabetes mellitus) (Acute) Past Medical History Medical History (Updated 12/14/23 @ 13:32 by Mara Higgins APRN) Cirrhosis Hypothyroidism Breast cancer Hx of Clostridium difficile infection (HFpEF) heart failure with preserved ejection fraction Murmur CKD (chronic kidney disease) stage 3, GFR 30-59 ml/min Vitamin D deficiency HLD (hyperlipidemia) HTN (hypertension) T2DM (type 2 diabetes mellitus) Patient : No Family History Family History Father Alzheimer disease Stroke Mother Breast cancer Family history of problems with anesthesia: No Surgical History Surgical History Hx of cataract surgery History of lumpectomy of right breast History of mastectomy History of Problems with Anesthesia: No Social History Social History Household Members: Family Household Members Other:: son Alcohol intake: never Patient Tobacco Use Status: Never used Tobacco Use of substances other than those prescribed or required for medical reasons: Unable to respond Last Used Substance Other:: unknown, unable to respond, she is nonsensical and delusional when she does Currently Displaying Signs/Symptoms of Drug Intoxication Withdrawal: No Other Past Substance Use Problem:: unknown, unable to respond, she is nonsensical and delusional when she does Spiritual Healthcare Practices: unknown, unable to respond, she is nonsensical and delusional when she does respond Jew Healthcare Practices: unknown, unable to respond, she is nonsensical and delusional when she does respond Cultural Healthcare Practices: unknown, unable to respond, she is nonsensical and delusional when she does respond Advance Directives: No Advance Directives Information Provided: No Do you have thoughts of harming others: None Do you have a plan to hurt others: No Plan Recently lost weight without trying: Unsure Patient : No : No Poor oral hygiene: No service: No Sexual orientation: Straight/Heterosexual Meds Allergies Allergy/AdvReac Type Severity Reaction Status Date / Time atropine Allergy Unknown Shortness Verified 12/02/23 23:30 of Breath enoxaparin [From Lovenox] Allergy Unknown Unknown Verified 12/02/23 23:30 penicillin V Allergy Unknown Unknown Verified 03/19/23 07:30 pseudoephedrine [Aprodine] Allergy Unknown Unknown Verified 03/19/23 07:30 triprolidine [Aprodine] Allergy Unknown Unknown Verified 03/19/23 07:30 Active Medications: Current Medications Acetaminophen (Acetaminophen 325 Mg Tablet) 650 mg PO Q6H PRN PRN Reason: Headache/Pain Mild Scale (1-3) Al Hydroxide/Mg Hydroxide (Magnesium Hydrox/Alum Hydrox 30 Ml Oral.Susp) 30 ml PO Q6H PRN PRN Reason: Heartburn/Nausea Amlodipine Besylate (Amlodipine Besylate 5 Mg Tablet) 5 mg PO DAILY [facility]; Protocol Last Admin: 12/18/23 09:34 Dose: Not Given Anastrozole (Anastrozole 1 Mg Tablet) 1 mg PO DAILY [facility] Last Admin: 12/18/23 09:34 Dose: Not Given Aspirin (Aspirin 81 Mg Tab.Chew) 81 mg PO DAILY [facility] Last Admin: 12/18/23 09:34 Dose: Not Given Atorvastatin Calcium (Atorvastatin Calcium 10 Mg Tablet) 10 mg PO BEDTIME [facility] Last Admin: 12/17/23 21:14 Dose: 10 mg Ferrous Sulfate (Ferrous Sulfate 324 Mg Tablet.Dr) 324 mg PO DAILY [facility] Last Admin: 12/18/23 09:35 Dose: Not Given Furosemide (Furosemide 20 Mg Tablet) 20 mg PO DAILY [facility]; Protocol Last Admin: 12/18/23 09:35 Dose: Not Given Glucose (Glucose Gel 15 Gm Gel..Gram.) 15 gm PO Q15M PRN; Protocol PRN Reason: per Hypoglycemia Standing Ord. Dextrose (D10) 250 mls @ 750 mls/hr IV Q15M PRN; Protocol PRN Reason: per Hypoglycemia Standing Ord. Insulin Glargine (Insulin Glargine,Hum.Rec.Anlog 100 Unit/Ml 10 Ml Vial) 6 unit SUBCUT BEDTIME [facility] Last Admin: 12/17/23 21:15 Dose: Not Given Insulin Human Lispro (Insulin Lispro 100 Unit/Ml 3 Ml Vial) 0 unit SUBCUT QIDACHS [facility]; Protocol Last Admin: 12/18/23 16:34 Dose: Not Given Loratadine (Loratadine 10 Mg Tablet) 10 mg PO BEDTIME [facility] Last Admin: 12/17/23 21:14 Dose: 10 mg Losartan Potassium (Losartan Potassium 50 Mg Tablet) 100 mg PO DAILY [facility]; Protocol Last Admin: 12/18/23 09:35 Dose: Not Given Magnesium Hydroxide (Milk Of Magnesia 30 Ml Oral.Susp) 30 ml PO DAILY PRN PRN Reason: Constipation Magnesium Oxide (Magnesium Oxide 400 Mg Tablet) 400 mg PO BID [facility] Last Admin: 12/18/23 09:34 Dose: Not Given Mirtazapine (Mirtazapine 30 Mg Tablet) 30 mg PO BEDTIME [facility] Last Admin: 12/17/23 21:14 Dose: 30 mg Multivitamins/Vitamin C (Multivitamin Tablet) 1 tab PO DAILY [facility] Last Admin: 12/18/23 09:34 Dose: Not Given Nicotine Polacrilex (Nicotine Polacrilex 2 Mg Gum) 4 mg BUCCAL Q2H PRN PRN Reason: Nicotine Cravings Omeprazole (Omeprazole 20 Mg Capsule.Dr) 20 mg PO DAILY@0630 [facility] Last Admin: 12/18/23 09:34 Dose: Not Given Risperidone (Risperidone 0.5 Mg Tablet) 0.5 mg PO BID PRN PRN Reason: Restlessness Sodium Chloride (0.9 % Sodium Chloride Flush 10 Ml Syringe) 5 ml IVFLUSH QSHIFT [facility] Last Admin: 12/18/23 17:13 Dose: 5 ml Thiamine HCl (Thiamine Hcl 100 Mg Tablet) 100 mg PO DAILY [facility] Last Admin: 12/18/23 09:34 Dose: Not Given Trazodone HCl (Trazodone Hcl 50 Mg Tablet) 50 mg PO BEDTIME PRN PRN Reason: Insomnia Last Admin: 12/08/23 22:06 Dose: 50 mg Valproic Acid (Valproic Acid (As Sodium Salt) 250 Mg/5 Ml Solution) 250 mg PO BID [facility] Last Admin: 12/18/23 09:26 Dose: Not Given Home Medications ?Medication ?Instructions ?Recorded ?Confirmed ?Last Taken ?Type ascorbate calcium (vitamin C) 500 500 mg PO DAILY 03/24/20 11/20/22 Unknown History mg tablet fluoxetine 20 mg capsule 40 mg PO DAILY 03/24/20 11/20/22 Unknown History levothyroxine 100 mcg tablet 100 mcg PO QAM 03/24/20 11/20/22 Unknown History mirtazapine 30 mg tablet 30 mg PO BEDTIME 03/24/20 11/20/22 Unknown History omeprazole 20 mg capsule,delayed 20 mg PO DAILY 03/24/20 11/20/22 Unknown History release risperidone 1 mg tablet 1 mg PO BEDTIME 03/24/20 11/20/22 Unknown History insulin glargine 100 unit/mL (3 30 unit subcut BEDTIME 09/28/20 11/20/22 Unknown History mL) subcutaneous pen anastrozole 1 mg tablet 1 mg PO DAILY 02/16/21 11/20/22 Unknown History dapagliflozin propanediol 10 mg 10 mg PO QAM 05/08/21 11/20/22 Unknown History tablet (Farxiga) losartan 50 mg tablet 50 mg PO DAILY 09/14/21 11/20/22 Unknown History amlodipine 5 mg tablet 5 mg PO QAM 12/02/23 12/02/23 Unknown History anastrozole 1 mg tablet 1 mg PO DAILY 12/02/23 12/02/23 Unknown History aspirin 81 mg chewable tablet 1 tab PO QAM 12/02/23 12/02/23 Unknown History cetirizine 5 mg tablet 5 mg PO BEDTIME 12/02/23 12/02/23 Unknown History divalproex 500 mg tablet,delayed 500 mg PO BEDTIME 12/02/23 12/02/23 Unknown History release ferrous sulfate 325 mg (65 mg 325 mg PO QAM 12/02/23 12/02/23 Unknown History iron) tablet (FeroSul) furosemide 20 mg tablet (Lasix) 20 mg PO DAILY 12/02/23 12/02/23 Unknown History insulin glargine 100 unit/mL 6 unit subcut BEDTIME 12/02/23 12/02/23 Unknown History subcutaneous solution insulin lispro 100 unit/mL 1 sliding scale dose subcut 12/02/23 12/02/23 Unknown History subcutaneous solution USEASDIRECTD levetiracetam 500 mg tablet 500 mg PO BID 12/02/23 12/02/23 Unknown History losartan 100 mg tablet 100 mg PO DAILY 12/02/23 12/02/23 Unknown History losartan 100 mg tablet 100 mg PO DAILY 12/02/23 12/02/23 Unknown History magnesium oxide 400 mg PO BID 12/02/23 12/02/23 Unknown History mirtazapine 30 mg disintegrating 30 mg PO BEDTIME 12/02/23 12/02/23 Unknown History tablet multivitamin with minerals 1 tab PO DAILY 12/02/23 12/02/23 Unknown History pantoprazole 40 mg tablet,delayed 40 mg PO DAILY 12/02/23 12/02/23 Unknown History release risperidone 0.5 mg tablet 0.5 mg PO BID PRN Agitation 12/02/23 12/02/23 Unknown History risperidone 2 mg tablet 2 mg PO BID 12/02/23 12/02/23 Unknown History simvastatin 20 mg tablet 20 mg PO BEDTIME 12/02/23 12/02/23 Unknown History thiamine HCl (vitamin B1) 100 mg 100 mg PO QAM 12/02/23 12/02/23 Unknown History tablet trazodone 50 mg tablet 50 mg PO BEDTIME PRN insomnia 12/02/23 12/02/23 Unknown History vancomycin 125 mg capsule See Rx Instructions .Route .COMPLEX 12/02/23 12/02/23 Unknown History (Vancocin) Exam Height,Weight and Vital Signs: Height 4 ft 11 in Weight 45.2 kg Last Vital Signs Temp 97.4 F 12/18/23 20:30 Pulse 70 12/18/23 20:30 Resp 18 12/18/23 20:30 BP 179/88 H 12/18/23 20:30 Pulse Ox 97 12/18/23 20:30 O2 Del Method Room Air 12/18/23 09:18 O2 Flow Rate 2 12/13/23 08:44 Pertinent Lab Results Pertinent Lab Results: Laboratory Tests 12/02/23 12/03/23 12/03/23 22:55 06:35 08:01 WBC RBC Hgb Hct MCV MCH MCHC RDW Plt Count MPV Immature Gran % (Auto) Neut % (Auto) Lymph % (Auto) [place] % (Auto) Eos % (Auto) Baso % (Auto) Lymph # (Auto) [place] # (Auto) Eos # (Auto) Baso # (Auto) Abs Immat Gran (auto) Absolute Neuts (auto) Absolute Nucleated RBC Nucleated RBC % (auto) Sodium 134 L Potassium 4.0 Chloride 98 Carbon Dioxide 27 Anion Gap 13 BUN 21 H Creatinine 0.88 Estim Creat Clear Calc TNP Estimated GFR > 60 POC Glucose 296 H 212 H Random Glucose Fasting Glucose 236 H Estimat Average Glucose 169 Hemoglobin A1c % 7.5 H Calcium 10.2 Total Bilirubin 0.5 Direct Bilirubin AST 19 ALT 16 Alkaline Phosphatase 93 Ammonia Total Protein 8.7 H Albumin 3.5 Triglycerides 105 Cholesterol 182 LDL Cholesterol, Calc 93 HDL Cholesterol 68 Vitamin B12 Folate TSH Urine Color Urine Appearance Urine pH Ur Specific [place] Urine Protein Urine Glucose (UA) Urine Ketones Urine Blood Urine Nitrite Ur Leukocyte Esterase Urine RBC Urine WBC Ur Squamous Epith Cells Urine Bacteria Hyaline Casts Granular Casts Urine Yeast Stool Occult Blood Stl C. cayetanensis PCR Stool Rotavirus A PCR Stl Adenov F 40/41 PCR Stool Astrovirus (PCR) Stool Campylobacter PCR Stool Cryptosporidium PCR Stl Sh Tox Pr E STEC PCR Stool E coli O157 PCR Stl Enterotoxigenic E PCR Stool EPEC (PCR) Stool EAEC (PCR) Stl E. histolytica PCR Stool Giardia Lamblia PCR Stl P. shigelloides PCR Stool Salmonella PCR Stool Sapovirus (PCR) Stl Shigella/EIEC PCR St Y.enterocolitica PCR Stool Vibrio (PCR) Stl Vibrio cholerae PCR Stl Norovirus GI/GII PCR Valproic Acid C. difficile Tox B Gene C. difficile Toxin A&B C. difficile Interpret 12/03/23 12/03/23 12/03/23 10:29 11:31 11:45 WBC 4.6 L RBC 3.96 L Hgb 10.9 L Hct 33.1 L MCV 83.6 MCH 27.5 MCHC 32.9 RDW 14.9 Plt Count 116 L MPV 9.5 Immature Gran % (Auto) 0.2 Neut % (Auto) 70.4 Lymph % (Auto) 17.7 L [place] % (Auto) 10.4 Eos % (Auto) 1.1 Baso % (Auto) 0.2 Lymph # (Auto) 0.8 L [place] # (Auto) 0.5 Eos # (Auto) 0.1 Baso # (Auto) 0.0 Abs Immat Gran (auto) 0.01 Absolute Neuts (auto) 3.3 Absolute Nucleated RBC 0.000 Nucleated RBC % (auto) 0.0 Sodium Potassium Chloride Carbon Dioxide Anion Gap BUN Creatinine Estim Creat Clear Calc Estimated GFR POC Glucose 234 H Random Glucose Fasting Glucose Estimat Average Glucose Hemoglobin A1c % Calcium Total Bilirubin Direct Bilirubin AST ALT Alkaline Phosphatase Ammonia 55 Total Protein Albumin Triglycerides Cholesterol LDL Cholesterol, Calc HDL Cholesterol Vitamin B12 Folate TSH Urine Color Urine Appearance Urine pH Ur Specific [place] Urine Protein Urine Glucose (UA) Urine Ketones Urine Blood Urine Nitrite Ur Leukocyte Esterase Urine RBC Urine WBC Ur Squamous Epith Cells Urine Bacteria Hyaline Casts Granular Casts Urine Yeast Stool Occult Blood Stl C. cayetanensis PCR Stool Rotavirus A PCR Stl Adenov F 40/41 PCR Stool Astrovirus (PCR) Stool Campylobacter PCR Stool Cryptosporidium PCR Stl Sh Tox Pr E STEC PCR Stool E coli O157 PCR Stl Enterotoxigenic E PCR Stool EPEC (PCR) Stool EAEC (PCR) Stl E. histolytica PCR Stool Giardia Lamblia PCR Stl P. shigelloides PCR Stool Salmonella PCR Stool Sapovirus (PCR) Stl Shigella/EIEC PCR St Y.enterocolitica PCR Stool Vibrio (PCR) Stl Vibrio cholerae PCR Stl Norovirus GI/GII PCR Valproic Acid C. difficile Tox B Gene C. difficile Toxin A&B C. difficile Interpret 12/03/23 12/03/23 12/03/23 16:05 16:31 17:30 WBC RBC Hgb Hct MCV MCH MCHC RDW Plt Count MPV Immature Gran % (Auto) Neut % (Auto) Lymph % (Auto) [place] % (Auto) Eos % (Auto) Baso % (Auto) Lymph # (Auto) [place] # (Auto) Eos # (Auto) Baso # (Auto) Abs Immat Gran (auto) Absolute Neuts (auto) Absolute Nucleated RBC Nucleated RBC % (auto) Sodium Potassium Chloride Carbon Dioxide Anion Gap BUN Creatinine Estim Creat Clear Calc Estimated GFR POC Glucose 217 H Random Glucose Fasting Glucose Estimat Average Glucose Hemoglobin A1c % Calcium Total Bilirubin Direct Bilirubin AST ALT Alkaline Phosphatase Ammonia Total Protein Albumin Triglycerides Cholesterol LDL Cholesterol, Calc HDL Cholesterol Vitamin B12 Folate TSH Urine Color Yellow Urine Appearance Cloudy Urine pH 5.5 Ur Specific [place] 1.020 Urine Protein 30 (1+) H Urine Glucose (UA) Negative Urine Ketones Negative Urine Blood Moderate (2+) H Urine Nitrite Negative Ur Leukocyte Esterase Moderate (2+) H Urine RBC >20 H Urine WBC >50 H Ur Squamous Epith Cells 3-5 Urine Bacteria 4+ Hyaline Casts >20 Granular Casts Present Urine Yeast Present Stool Occult Blood NEGATIVE Stl C. cayetanensis PCR Not Detected Stool Rotavirus A PCR Not Detected Stl Adenov F PCR Not Detected Stool Astrovirus (PCR) Not Detected Stool Campylobacter PCR Not Detected Stool Cryptosporidium PCR Not Detected Stl Sh Tox Pr E STEC PCR Not Detected Stool E coli O157 PCR Not applicable Stl Enterotoxigenic E PCR Not Detected Stool EPEC (PCR) Not Detected Stool EAEC (PCR) Not Detected Stl E. histolytica PCR Not Detected Stool Giardia Lamblia PCR Not Detected Stl P. shigelloides PCR Not Detected Stool Salmonella PCR Not Detected Stool Sapovirus (PCR) Not Detected Stl Shigella/EIEC PCR Not Detected St Y.enterocolitica PCR Not Detected Stool Vibrio (PCR) Not Detected Stl Vibrio cholerae PCR Not Detected Stl Norovirus GI/GII PCR Not Detected Valproic Acid C. difficile Tox B Gene POSITIVE A* C. difficile Toxin A&B Positive A* C. difficile Interpret SEE NOTE 12/03/23 12/04/23 12/04/23 21:03 06:21 11:26 WBC RBC Hgb Hct MCV MCH MCHC RDW Plt Count MPV Immature Gran % (Auto) Neut % (Auto) Lymph % (Auto) [place] % (Auto) Eos % (Auto) Baso % (Auto) Lymph # (Auto) [place] # (Auto) Eos # (Auto) Baso # (Auto) Abs Immat Gran (auto) Absolute Neuts (auto) Absolute Nucleated RBC Nucleated RBC % (auto) Sodium Potassium Chloride Carbon Dioxide Anion Gap BUN Creatinine Estim Creat Clear Calc Estimated GFR POC Glucose 207 H 176 H 210 H Random Glucose Fasting Glucose Estimat Average Glucose Hemoglobin A1c % Calcium Total Bilirubin Direct Bilirubin AST ALT Alkaline Phosphatase Ammonia Total Protein Albumin Triglycerides Cholesterol LDL Cholesterol, Calc HDL Cholesterol Vitamin B12 Folate TSH Urine Color Urine Appearance Urine pH Ur Specific [place] Urine Protein Urine Glucose (UA) Urine Ketones Urine Blood Urine Nitrite Ur Leukocyte Esterase Urine RBC Urine WBC Ur Squamous Epith Cells Urine Bacteria Hyaline Casts Granular Casts Urine Yeast Stool Occult Blood Stl C. cayetanensis PCR Stool Rotavirus A PCR Stl Adenov F 40 PCR Stool Astrovirus (PCR) Stool Campylobacter PCR Stool Cryptosporidium PCR Stl Sh Tox Pr E STEC PCR Stool E coli O157 PCR Stl Enterotoxigenic E PCR Stool EPEC (PCR) Stool EAEC (PCR) Stl E. histolytica PCR Stool Giardia Lamblia PCR Stl P. shigelloides PCR Stool Salmonella PCR Stool Sapovirus (PCR) Stl Shigella/EIEC PCR St Y.enterocolitica PCR Stool Vibrio (PCR) Stl Vibrio cholerae PCR Stl Norovirus GI/GII PCR Valproic Acid C. difficile Tox B Gene C. difficile Toxin A&B C. difficile Interpret 12/04/23 12/04/23 12/05/23 16:34 20:17 06:35 WBC RBC Hgb Hct MCV MCH MCHC RDW Plt Count MPV Immature Gran % (Auto) Neut % (Auto) Lymph % (Auto) [place] % (Auto) Eos % (Auto) Baso % (Auto) Lymph # (Auto) [place] # (Auto) Eos # (Auto) Baso # (Auto) Abs Immat Gran (auto) Absolute Neuts (auto) Absolute Nucleated RBC Nucleated RBC % (auto) Sodium Potassium Chloride Carbon Dioxide Anion Gap BUN Creatinine Estim Creat Clear Calc Estimated GFR POC Glucose 176 H 154 H 146 H Random Glucose Fasting Glucose Estimat Average Glucose Hemoglobin A1c % Calcium Total Bilirubin Direct Bilirubin AST ALT Alkaline Phosphatase Ammonia Total Protein Albumin Triglycerides Cholesterol LDL Cholesterol, Calc HDL Cholesterol Vitamin B12 Folate TSH Urine Color Urine Appearance Urine pH Ur Specific [place] Urine Protein Urine Glucose (UA) Urine Ketones Urine Blood Urine Nitrite Ur Leukocyte Esterase Urine RBC Urine WBC Ur Squamous Epith Cells Urine Bacteria Hyaline Casts Granular Casts Urine Yeast Stool Occult Blood Stl C. cayetanensis PCR Stool Rotavirus A PCR Stl Adenov F 40/41 PCR Stool Astrovirus (PCR) Stool Campylobacter PCR Stool Cryptosporidium PCR Stl Sh Tox Pr E STEC PCR Stool E coli O157 PCR Stl Enterotoxigenic E PCR Stool EPEC (PCR) Stool EAEC (PCR) Stl E. histolytica PCR Stool Giardia Lamblia PCR Stl P. shigelloides PCR Stool Salmonella PCR Stool Sapovirus (PCR) Stl Shigella/EIEC PCR St Y.enterocolitica PCR Stool Vibrio (PCR) Stl Vibrio cholerae PCR Stl Norovirus GI/GII PCR Valproic Acid C. difficile Tox B Gene C. difficile Toxin A&B C. difficile Interpret 12/05/23 12/05/23 12/05/23 11:08 16:36 20:27 WBC RBC Hgb Hct MCV MCH MCHC RDW Plt Count MPV Immature Gran % (Auto) Neut % (Auto) Lymph % (Auto) [place] % (Auto) Eos % (Auto) Baso % (Auto) Lymph # (Auto) [place] # (Auto) Eos # (Auto) Baso # (Auto) Abs Immat Gran (auto) Absolute Neuts (auto) Absolute Nucleated RBC Nucleated RBC % (auto) Sodium Potassium Chloride Carbon Dioxide Anion Gap BUN Creatinine Estim Creat Clear Calc Estimated GFR POC Glucose 164 H 162 H 198 H Random Glucose Fasting Glucose Estimat Average Glucose Hemoglobin A1c % Calcium Total Bilirubin Direct Bilirubin AST ALT Alkaline Phosphatase Ammonia Total Protein Albumin Triglycerides Cholesterol LDL Cholesterol, Calc HDL Cholesterol Vitamin B12 Folate TSH Urine Color Urine Appearance Urine pH Ur Specific [place] Urine Protein Urine Glucose (UA) Urine Ketones Urine Blood Urine Nitrite Ur Leukocyte Esterase Urine RBC Urine WBC Ur Squamous Epith Cells Urine Bacteria Hyaline Casts Granular Casts Urine Yeast Stool Occult Blood Stl C. cayetanensis PCR Stool Rotavirus A PCR Stl Adenov F 40/41 PCR Stool Astrovirus (PCR) Stool Campylobacter PCR Stool Cryptosporidium PCR Stl Sh Tox Pr E STEC PCR Stool E coli O157 PCR Stl Enterotoxigenic E PCR Stool EPEC (PCR) Stool EAEC (PCR) Stl E. histolytica PCR Stool Giardia Lamblia PCR Stl P. shigelloides PCR Stool Salmonella PCR Stool Sapovirus (PCR) Stl Shigella/EIEC PCR St Y.enterocolitica PCR Stool Vibrio (PCR) Stl Vibrio cholerae PCR Stl Norovirus GI/GII PCR Valproic Acid C. difficile Tox B Gene C. difficile Toxin A&B C. difficile Interpret 12/06/23 12/06/23 12/06/23 06:22 07:57 11:30 WBC RBC Hgb Hct MCV MCH MCHC RDW Plt Count MPV Immature Gran % (Auto) Neut % (Auto) Lymph % (Auto) [place] % (Auto) Eos % (Auto) Baso % (Auto) Lymph # (Auto) [place] # (Auto) Eos # (Auto) Baso # (Auto) Abs Immat Gran (auto) Absolute Neuts (auto) Absolute Nucleated RBC Nucleated RBC % (auto) Sodium 142 Potassium 4.5 Chloride 103 Carbon Dioxide 30 H Anion Gap 14 BUN 32 H Creatinine 0.88 Estim Creat Clear Calc 37.7 Estimated GFR > 60 POC Glucose 122 H 135 H Random Glucose Fasting Glucose 137 H Estimat Average Glucose Hemoglobin A1c % Calcium 10.7 H Total Bilirubin 0.5 Direct Bilirubin AST 24 ALT 15 Alkaline Phosphatase 97 Ammonia Total Protein 9.2 H Albumin 3.6 Triglycerides Cholesterol LDL Cholesterol, Calc HDL Cholesterol Vitamin B12 1504 H Folate 14.9 TSH 2.88 Urine Color Urine Appearance Urine pH Ur Specific [place] Urine Protein Urine Glucose (UA) Urine Ketones Urine Blood Urine Nitrite Ur Leukocyte Esterase Urine RBC Urine WBC Ur Squamous Epith Cells Urine Bacteria Hyaline Casts Granular Casts Urine Yeast Stool Occult Blood Stl C. cayetanensis PCR Stool Rotavirus A PCR Stl Adenov F PCR Stool Astrovirus (PCR) Stool Campylobacter PCR Stool Cryptosporidium PCR Stl Sh Tox Pr E STEC PCR Stool E coli O157 PCR Stl Enterotoxigenic E PCR Stool EPEC (PCR) Stool EAEC (PCR) Stl E. histolytica PCR Stool Giardia Lamblia PCR Stl P. shigelloides PCR Stool Salmonella PCR Stool Sapovirus (PCR) Stl Shigella/EIEC PCR St Y.enterocolitica PCR Stool Vibrio (PCR) Stl Vibrio cholerae PCR Stl Norovirus GI/GII PCR Valproic Acid C. difficile Tox B Gene C. difficile Toxin A&B C. difficile Interpret 12/06/23 12/06/23 12/07/23 16:30 19:51 06:57 WBC RBC Hgb Hct MCV MCH MCHC RDW Plt Count MPV Immature Gran % (Auto) Neut % (Auto) Lymph % (Auto) [place] % (Auto) Eos % (Auto) Baso % (Auto) Lymph # (Auto) [place] # (Auto) Eos # (Auto) Baso # (Auto) Abs Immat Gran (auto) Absolute Neuts (auto) Absolute Nucleated RBC Nucleated RBC % (auto) Sodium Potassium Chloride Carbon Dioxide Anion Gap BUN Creatinine Estim Creat Clear Calc Estimated GFR POC Glucose 173 H 208 H 151 H Random Glucose Fasting Glucose Estimat Average Glucose Hemoglobin A1c % Calcium Total Bilirubin Direct Bilirubin AST ALT Alkaline Phosphatase Ammonia Total Protein Albumin Triglycerides Cholesterol LDL Cholesterol, Calc HDL Cholesterol Vitamin B12 Folate TSH Urine Color Urine Appearance Urine pH Ur Specific [place] Urine Protein Urine Glucose (UA) Urine Ketones Urine Blood Urine Nitrite Ur Leukocyte Esterase Urine RBC Urine WBC Ur Squamous Epith Cells Urine Bacteria Hyaline Casts Granular Casts Urine Yeast Stool Occult Blood Stl C. cayetanensis PCR Stool Rotavirus A PCR Stl Adenov PCR Stool Astrovirus (PCR) Stool Campylobacter PCR Stool Cryptosporidium PCR Stl Sh Tox Pr E STEC PCR Stool E coli O157 PCR Stl Enterotoxigenic E PCR Stool EPEC (PCR) Stool EAEC (PCR) Stl E. histolytica PCR Stool Giardia Lamblia PCR Stl P. shigelloides PCR Stool Salmonella PCR Stool Sapovirus (PCR) Stl Shigella/EIEC PCR St Y.enterocolitica PCR Stool Vibrio (PCR) Stl Vibrio cholerae PCR Stl Norovirus GI/GII PCR Valproic Acid C. difficile Tox B Gene C. difficile Toxin A&B C. difficile Interpret 12/07/23 12/07/23 12/07/23 11:09 16:11 19:32 WBC RBC Hgb Hct MCV MCH MCHC RDW Plt Count MPV Immature Gran % (Auto) Neut % (Auto) Lymph % (Auto) [place] % (Auto) Eos % (Auto) Baso % (Auto) Lymph # (Auto) [place] # (Auto) Eos # (Auto) Baso # (Auto) Abs Immat Gran (auto) Absolute Neuts (auto) Absolute Nucleated RBC Nucleated RBC % (auto) Sodium Potassium Chloride Carbon Dioxide Anion Gap BUN Creatinine Estim Creat Clear Calc Estimated GFR POC Glucose 167 H 154 H 225 H Random Glucose Fasting Glucose Estimat Average Glucose Hemoglobin A1c % Calcium Total Bilirubin Direct Bilirubin AST ALT Alkaline Phosphatase Ammonia Total Protein Albumin Triglycerides Cholesterol LDL Cholesterol, Calc HDL Cholesterol Vitamin B12 Folate TSH Urine Color Urine Appearance Urine pH Ur Specific [place] Urine Protein Urine Glucose (UA) Urine Ketones Urine Blood Urine Nitrite Ur Leukocyte Esterase Urine RBC Urine WBC Ur Squamous Epith Cells Urine Bacteria Hyaline Casts Granular Casts Urine Yeast Stool Occult Blood Stl C. cayetanensis PCR Stool Rotavirus A PCR Stl Adenov F 40/41 PCR Stool Astrovirus (PCR) Stool Campylobacter PCR Stool Cryptosporidium PCR Stl Sh Tox Pr E STEC PCR Stool E coli O157 PCR Stl Enterotoxigenic E PCR Stool EPEC (PCR) Stool EAEC (PCR) Stl E. histolytica PCR Stool Giardia Lamblia PCR Stl P. shigelloides PCR Stool Salmonella PCR Stool Sapovirus (PCR) Stl Shigella/EIEC PCR St Y.enterocolitica PCR Stool Vibrio (PCR) Stl Vibrio cholerae PCR Stl Norovirus GI/GII PCR Valproic Acid C. difficile Tox B Gene C. difficile Toxin A&B C. difficile Interpret 12/08/23 12/08/2324 06:23 11:15 16:29 WBC RBC Hgb Hct MCV MCH MCHC RDW Plt Count MPV Immature Gran % (Auto) Neut % (Auto) Lymph % (Auto) [place] % (Auto) Eos % (Auto) Baso % (Auto) Lymph # (Auto) [place] # (Auto) Eos # (Auto) Baso # (Auto) Abs Immat Gran (auto) Absolute Neuts (auto) Absolute Nucleated RBC Nucleated RBC % (auto) Sodium Potassium Chloride Carbon Dioxide Anion Gap BUN Creatinine Estim Creat Clear Calc Estimated GFR POC Glucose 150 H 171 H 131 H Random Glucose Fasting Glucose Estimat Average Glucose Hemoglobin A1c % Calcium Total Bilirubin Direct Bilirubin AST ALT Alkaline Phosphatase Ammonia Total Protein Albumin Triglycerides Cholesterol LDL Cholesterol, Calc HDL Cholesterol Vitamin B12 Folate TSH Urine Color Urine Appearance Urine pH Ur Specific [place] Urine Protein Urine Glucose (UA) Urine Ketones Urine Blood Urine Nitrite Ur Leukocyte Esterase Urine RBC Urine WBC Ur Squamous Epith Cells Urine Bacteria Hyaline Casts Granular Casts Urine Yeast Stool Occult Blood Stl C. cayetanensis PCR Stool Rotavirus A PCR Stl Adenov F 40/41 PCR Stool Astrovirus (PCR) Stool Campylobacter PCR Stool Cryptosporidium PCR Stl Sh Tox Pr E STEC PCR Stool E coli O157 PCR Stl Enterotoxigenic E PCR Stool EPEC (PCR) Stool EAEC (PCR) Stl E. histolytica PCR Stool Giardia Lamblia PCR Stl P. shigelloides PCR Stool Salmonella PCR Stool Sapovirus (PCR) Stl Shigella/EIEC PCR St Y.enterocolitica PCR Stool Vibrio (PCR) Stl Vibrio cholerae PCR Stl Norovirus GI/GII PCR Valproic Acid C. difficile Tox B Gene C. difficile Toxin A&B C. difficile Interpret 12/08/23 12/08/23 12/09/23 19:07 20:11 06:32 WBC 3.3 L RBC 3.73 L Hgb 10.3 L Hct 32.0 L MCV 85.8 MCH 27.6 MCHC 32.2 RDW 14.2 Plt Count 99 L MPV 10.0 Immature Gran % (Auto) 0.3 Neut % (Auto) 53.2 Lymph % (Auto) 29.7 [place] % (Auto) 15.3 H Eos % (Auto) 1.2 Baso % (Auto) 0.3 Lymph # (Auto) 1.0 L [place] # (Auto) 0.5 Eos # (Auto) 0.0 Baso # (Auto) 0.0 Abs Immat Gran (auto) 0.01 Absolute Neuts (auto) 1.8 L Absolute Nucleated RBC 0.000 Nucleated RBC % (auto) 0.0 Sodium 142 Potassium 4.2 Chloride 104 Carbon Dioxide 30 H Anion Gap 12 BUN 27 H Creatinine 0.82 Estim Creat Clear Calc 40.4 Estimated GFR > 60 POC Glucose 116 H 145 H Random Glucose 114 Fasting Glucose Estimat Average Glucose Hemoglobin A1c % Calcium 10.5 H Total Bilirubin 0.6 Direct Bilirubin AST 25 ALT 14 Alkaline Phosphatase 90 Ammonia Total Protein 8.6 H Albumin 3.4 L Triglycerides Cholesterol LDL Cholesterol, Calc HDL Cholesterol Vitamin B12 Folate TSH Urine Color Urine Appearance Urine pH Ur Specific [place] Urine Protein Urine Glucose (UA) Urine Ketones Urine Blood Urine Nitrite Ur Leukocyte Esterase Urine RBC Urine WBC Ur Squamous Epith Cells Urine Bacteria Hyaline Casts Granular Casts Urine Yeast Stool Occult Blood Stl C. cayetanensis PCR Stool Rotavirus A PCR Stl Adenov F 40/41 PCR Stool Astrovirus (PCR) Stool Campylobacter PCR Stool Cryptosporidium PCR Stl Sh Tox Pr E STEC PCR Stool E coli O157 PCR Stl Enterotoxigenic E PCR Stool EPEC (PCR) Stool EAEC (PCR) Stl E. histolytica PCR Stool Giardia Lamblia PCR Stl P. shigelloides PCR Stool Salmonella PCR Stool Sapovirus (PCR) Stl Shigella/EIEC PCR St Y.enterocolitica PCR Stool Vibrio (PCR) Stl Vibrio cholerae PCR Stl Norovirus GI/GII PCR Valproic Acid C. difficile Tox B Gene C. difficile Toxin A&B C. difficile Interpret 12/09/23 12/09/23 12/09/23 09:57 11:34 16:28 WBC 2.8 L RBC 3.68 L Hgb 10.1 L Hct 32.1 L MCV 87.2 MCH 27.4 MCHC 31.5 RDW 14.4 Plt Count 86 L MPV 9.6 Immature Gran % (Auto) 0.0 Neut % (Auto) 56.4 Lymph % (Auto) 29.1 [place] % (Auto) 12.4 H Eos % (Auto) 1.4 Baso % (Auto) 0.7 Lymph # (Auto) 0.8 L [place] # (Auto) 0.4 Eos # (Auto) 0.0 Baso # (Auto) 0.0 Abs Immat Gran (auto) 0.00 Absolute Neuts (auto) 1.6 L Absolute Nucleated RBC 0.000 Nucleated RBC % (auto) 0.0 Sodium 140 Potassium 4.7 Chloride 103 Carbon Dioxide 30 H Anion Gap 12 BUN 30 H Creatinine 0.99 Estim Creat Clear Calc 33.4 Estimated GFR 55 POC Glucose 201 H 143 H Random Glucose 279 H Fasting Glucose Estimat Average Glucose Hemoglobin A1c % Calcium 10.4 H Total Bilirubin 0.4 Direct Bilirubin 0.2 AST 30 ALT 16 Alkaline Phosphatase 96 Ammonia Total Protein 8.4 H Albumin 3.3 L Triglycerides Cholesterol LDL Cholesterol, Calc HDL Cholesterol Vitamin B12 Folate TSH Urine Color Urine Appearance Urine pH Ur Specific [place] Urine Protein Urine Glucose (UA) Urine Ketones Urine Blood Urine Nitrite Ur Leukocyte Esterase Urine RBC Urine WBC Ur Squamous Epith Cells Urine Bacteria Hyaline Casts Granular Casts Urine Yeast Stool Occult Blood Stl C. cayetanensis PCR Stool Rotavirus A PCR Stl Adenov F 40/41 PCR Stool Astrovirus (PCR) Stool Campylobacter PCR Stool Cryptosporidium PCR Stl Sh Tox Pr E STEC PCR Stool E coli O157 PCR Stl Enterotoxigenic E PCR Stool EPEC (PCR) Stool EAEC (PCR) Stl E. histolytica PCR Stool Giardia Lamblia PCR Stl P. shigelloides PCR Stool Salmonella PCR Stool Sapovirus (PCR) Stl Shigella/EIEC PCR St Y.enterocolitica PCR Stool Vibrio (PCR) Stl Vibrio cholerae PCR Stl Norovirus GI/GII PCR Valproic Acid C. difficile Tox B Gene C. difficile Toxin A&B C. difficile Interpret 12/09/23 12/10/23 12/10/23 19:52 06:12 08:25 WBC RBC Hgb Hct MCV MCH MCHC RDW Plt Count MPV Immature Gran % (Auto) Neut % (Auto) Lymph % (Auto) [place] % (Auto) Eos % (Auto) Baso % (Auto) Lymph # (Auto) [place] # (Auto) Eos # (Auto) Baso # (Auto) Abs Immat Gran (auto) Absolute Neuts (auto) Absolute Nucleated RBC Nucleated RBC % (auto) Sodium Potassium Chloride Carbon Dioxide Anion Gap BUN Creatinine Estim Creat Clear Calc Estimated GFR POC Glucose 205 H 124 H 146 H Random Glucose Fasting Glucose Estimat Average Glucose Hemoglobin A1c % Calcium Total Bilirubin Direct Bilirubin AST ALT Alkaline Phosphatase Ammonia Total Protein Albumin Triglycerides Cholesterol LDL Cholesterol, Calc HDL Cholesterol Vitamin B12 Folate TSH Urine Color Urine Appearance Urine pH Ur Specific [place] Urine Protein Urine Glucose (UA) Urine Ketones Urine Blood Urine Nitrite Ur Leukocyte Esterase Urine RBC Urine WBC Ur Squamous Epith Cells Urine Bacteria Hyaline Casts Granular Casts Urine Yeast Stool Occult Blood Stl C. cayetanensis PCR Stool Rotavirus A PCR Stl Adenov F PCR Stool Astrovirus (PCR) Stool Campylobacter PCR Stool Cryptosporidium PCR Stl Sh Tox Pr E STEC PCR Stool E coli O157 PCR Stl Enterotoxigenic E PCR Stool EPEC (PCR) Stool EAEC (PCR) Stl E. histolytica PCR Stool Giardia Lamblia PCR Stl P. shigelloides PCR Stool Salmonella PCR Stool Sapovirus (PCR) Stl Shigella/EIEC PCR St Y.enterocolitica PCR Stool Vibrio (PCR) Stl Vibrio cholerae PCR Stl Norovirus GI/GII PCR Valproic Acid C. difficile Tox B Gene C. difficile Toxin A&B C. difficile Interpret 12/10/23 12/10/23 12/10/23 11:53 16:42 20:01 WBC RBC Hgb Hct MCV MCH MCHC RDW Plt Count MPV Immature Gran % (Auto) Neut % (Auto) Lymph % (Auto) [place] % (Auto) Eos % (Auto) Baso % (Auto) Lymph # (Auto) [place] # (Auto) Eos # (Auto) Baso # (Auto) Abs Immat Gran (auto) Absolute Neuts (auto) Absolute Nucleated RBC Nucleated RBC % (auto) Sodium Potassium Chloride Carbon Dioxide Anion Gap BUN Creatinine Estim Creat Clear Calc Estimated GFR POC Glucose 185 H 164 H 139 H Random Glucose Fasting Glucose Estimat Average Glucose Hemoglobin A1c % Calcium Total Bilirubin Direct Bilirubin AST ALT Alkaline Phosphatase Ammonia Total Protein Albumin Triglycerides Cholesterol LDL Cholesterol, Calc HDL Cholesterol Vitamin B12 Folate TSH Urine Color Urine Appearance Urine pH Ur Specific [place] Urine Protein Urine Glucose (UA) Urine Ketones Urine Blood Urine Nitrite Ur Leukocyte Esterase Urine RBC Urine WBC Ur Squamous Epith Cells Urine Bacteria Hyaline Casts Granular Casts Urine Yeast Stool Occult Blood Stl C. cayetanensis PCR Stool Rotavirus A PCR Stl Adenov PCR Stool Astrovirus (PCR) Stool Campylobacter PCR Stool Cryptosporidium PCR Stl Sh Tox Pr E STEC PCR Stool E coli O157 PCR Stl Enterotoxigenic E PCR Stool EPEC (PCR) Stool EAEC (PCR) Stl E. histolytica PCR Stool Giardia Lamblia PCR Stl P. shigelloides PCR Stool Salmonella PCR Stool Sapovirus (PCR) Stl Shigella/EIEC PCR St Y.enterocolitica PCR Stool Vibrio (PCR) Stl Vibrio cholerae PCR Stl Norovirus GI/GII PCR Valproic Acid C. difficile Tox B Gene C. difficile Toxin A&B C. difficile Interpret 12/11/23 12/11/23 12/11/23 06:00 11:58 16:39 WBC RBC Hgb Hct MCV MCH MCHC RDW Plt Count MPV Immature Gran % (Auto) Neut % (Auto) Lymph % (Auto) [place] % (Auto) Eos % (Auto) Baso % (Auto) Lymph # (Auto) [place] # (Auto) Eos # (Auto) Baso # (Auto) Abs Immat Gran (auto) Absolute Neuts (auto) Absolute Nucleated RBC Nucleated RBC % (auto) Sodium Potassium Chloride Carbon Dioxide Anion Gap BUN Creatinine Estim Creat Clear Calc Estimated GFR POC Glucose 151 H 158 H 134 H Random Glucose Fasting Glucose Estimat Average Glucose Hemoglobin A1c % Calcium Total Bilirubin Direct Bilirubin AST ALT Alkaline Phosphatase Ammonia Total Protein Albumin Triglycerides Cholesterol LDL Cholesterol, Calc HDL Cholesterol Vitamin B12 Folate TSH Urine Color Urine Appearance Urine pH Ur Specific [place] Urine Protein Urine Glucose (UA) Urine Ketones Urine Blood Urine Nitrite Ur Leukocyte Esterase Urine RBC Urine WBC Ur Squamous Epith Cells Urine Bacteria Hyaline Casts Granular Casts Urine Yeast Stool Occult Blood Stl C. cayetanensis PCR Stool Rotavirus A PCR Stl Adenov F 40/41 PCR Stool Astrovirus (PCR) Stool Campylobacter PCR Stool Cryptosporidium PCR Stl Sh Tox Pr E STEC PCR Stool E coli O157 PCR Stl Enterotoxigenic E PCR Stool EPEC (PCR) Stool EAEC (PCR) Stl E. histolytica PCR Stool Giardia Lamblia PCR Stl P. shigelloides PCR Stool Salmonella PCR Stool Sapovirus (PCR) Stl Shigella/EIEC PCR St Y.enterocolitica PCR Stool Vibrio (PCR) Stl Vibrio cholerae PCR Stl Norovirus GI/GII PCR Valproic Acid C. difficile Tox B Gene C. difficile Toxin A&B C. difficile Interpret 12/11/23 12/12/23 12/12/23 19:50 06:41 11:33 WBC RBC Hgb Hct MCV MCH MCHC RDW Plt Count MPV Immature Gran % (Auto) Neut % (Auto) Lymph % (Auto) [place] % (Auto) Eos % (Auto) Baso % (Auto) Lymph # (Auto) [place] # (Auto) Eos # (Auto) Baso # (Auto) Abs Immat Gran (auto) Absolute Neuts (auto) Absolute Nucleated RBC Nucleated RBC % (auto) Sodium Potassium Chloride Carbon Dioxide Anion Gap BUN Creatinine Estim Creat Clear Calc Estimated GFR POC Glucose 136 H 149 H 230 H Random Glucose Fasting Glucose Estimat Average Glucose Hemoglobin A1c % Calcium Total Bilirubin Direct Bilirubin AST ALT Alkaline Phosphatase Ammonia Total Protein Albumin Triglycerides Cholesterol LDL Cholesterol, Calc HDL Cholesterol Vitamin B12 Folate TSH Urine Color Urine Appearance Urine pH Ur Specific [place] Urine Protein Urine Glucose (UA) Urine Ketones Urine Blood Urine Nitrite Ur Leukocyte Esterase Urine RBC Urine WBC Ur Squamous Epith Cells Urine Bacteria Hyaline Casts Granular Casts Urine Yeast Stool Occult Blood Stl C. cayetanensis PCR Stool Rotavirus A PCR Stl Adenov F PCR Stool Astrovirus (PCR) Stool Campylobacter PCR Stool Cryptosporidium PCR Stl Sh Tox Pr E STEC PCR Stool E coli O157 PCR Stl Enterotoxigenic E PCR Stool EPEC (PCR) Stool EAEC (PCR) Stl E. histolytica PCR Stool Giardia Lamblia PCR Stl P. shigelloides PCR Stool Salmonella PCR Stool Sapovirus (PCR) Stl Shigella/EIEC PCR St Y.enterocolitica PCR Stool Vibrio (PCR) Stl Vibrio cholerae PCR Stl Norovirus GI/GII PCR Valproic Acid C. difficile Tox B Gene C. difficile Toxin A&B C. difficile Interpret 12/12/23 12/12/23 12/13/23 16:28 20:34 06:19 WBC RBC Hgb Hct MCV MCH MCHC RDW Plt Count MPV Immature Gran % (Auto) Neut % (Auto) Lymph % (Auto) [place] % (Auto) Eos % (Auto) Baso % (Auto) Lymph # (Auto) [place] # (Auto) Eos # (Auto) Baso # (Auto) Abs Immat Gran (auto) Absolute Neuts (auto) Absolute Nucleated RBC Nucleated RBC % (auto) Sodium Potassium Chloride Carbon Dioxide Anion Gap BUN Creatinine Estim Creat Clear Calc Estimated GFR POC Glucose 256 H 194 H 165 H Random Glucose Fasting Glucose Estimat Average Glucose Hemoglobin A1c % Calcium Total Bilirubin Direct Bilirubin AST ALT Alkaline Phosphatase Ammonia Total Protein Albumin Triglycerides Cholesterol LDL Cholesterol, Calc HDL Cholesterol Vitamin B12 Folate TSH Urine Color Urine Appearance Urine pH Ur Specific [place] Urine Protein Urine Glucose (UA) Urine Ketones Urine Blood Urine Nitrite Ur Leukocyte Esterase Urine RBC Urine WBC Ur Squamous Epith Cells Urine Bacteria Hyaline Casts Granular Casts Urine Yeast Stool Occult Blood Stl C. cayetanensis PCR Stool Rotavirus A PCR Stl Adenov F PCR Stool Astrovirus (PCR) Stool Campylobacter PCR Stool Cryptosporidium PCR Stl Sh Tox Pr E STEC PCR Stool E coli O157 PCR Stl Enterotoxigenic E PCR Stool EPEC (PCR) Stool EAEC (PCR) Stl E. histolytica PCR Stool Giardia Lamblia PCR Stl P. shigelloides PCR Stool Salmonella PCR Stool Sapovirus (PCR) Stl Shigella/EIEC PCR St Y.enterocolitica PCR Stool Vibrio (PCR) Stl Vibrio cholerae PCR Stl Norovirus GI/GII PCR Valproic Acid C. difficile Tox B Gene C. difficile Toxin A&B C. difficile Interpret 12/13/23 12/13/23 12/13/23 11:02 16:26 19:57 WBC RBC Hgb Hct MCV MCH MCHC RDW Plt Count MPV Immature Gran % (Auto) Neut % (Auto) Lymph % (Auto) [place] % (Auto) Eos % (Auto) Baso % (Auto) Lymph # (Auto) [place] # (Auto) Eos # (Auto) Baso # (Auto) Abs Immat Gran (auto) Absolute Neuts (auto) Absolute Nucleated RBC Nucleated RBC % (auto) Sodium Potassium Chloride Carbon Dioxide Anion Gap BUN Creatinine Estim Creat Clear Calc Estimated GFR POC Glucose 248 H 247 H 179 H Random Glucose Fasting Glucose Estimat Average Glucose Hemoglobin A1c % Calcium Total Bilirubin Direct Bilirubin AST ALT Alkaline Phosphatase Ammonia Total Protein Albumin Triglycerides Cholesterol LDL Cholesterol, Calc HDL Cholesterol Vitamin B12 Folate TSH Urine Color Urine Appearance Urine pH Ur Specific [place] Urine Protein Urine Glucose (UA) Urine Ketones Urine Blood Urine Nitrite Ur Leukocyte Esterase Urine RBC Urine WBC Ur Squamous Epith Cells Urine Bacteria Hyaline Casts Granular Casts Urine Yeast Stool Occult Blood Stl C. cayetanensis PCR Stool Rotavirus A PCR Stl Adenov F PCR Stool Astrovirus (PCR) Stool Campylobacter PCR Stool Cryptosporidium PCR Stl Sh Tox Pr E STEC PCR Stool E coli O157 PCR Stl Enterotoxigenic E PCR Stool EPEC (PCR) Stool EAEC (PCR) Stl E. histolytica PCR Stool Giardia Lamblia PCR Stl P. shigelloides PCR Stool Salmonella PCR Stool Sapovirus (PCR) Stl Shigella/EIEC PCR St Y.enterocolitica PCR Stool Vibrio (PCR) Stl Vibrio cholerae PCR Stl Norovirus GI/GII PCR Valproic Acid C. difficile Tox B Gene C. difficile Toxin A&B C. difficile Interpret 12/14/23 12/14/23 12/14/23 06:32 07:37 11:48 WBC RBC Hgb Hct MCV MCH MCHC RDW Plt Count MPV Immature Gran % (Auto) Neut % (Auto) Lymph % (Auto) [place] % (Auto) Eos % (Auto) Baso % (Auto) Lymph # (Auto) [place] # (Auto) Eos # (Auto) Baso # (Auto) Abs Immat Gran (auto) Absolute Neuts (auto) Absolute Nucleated RBC Nucleated RBC % (auto) Sodium 139 Potassium 4.2 Chloride 103 Carbon Dioxide 28 Anion Gap 12 BUN 25 H Creatinine 0.84 Estim Creat Clear Calc 39.4 Estimated GFR > 60 POC Glucose 120 H 158 H Random Glucose Fasting Glucose 135 H Estimat Average Glucose Hemoglobin A1c % Calcium 10.0 Total Bilirubin 0.6 Direct Bilirubin AST 43 H ALT 23 Alkaline Phosphatase 101 Ammonia Total Protein 8.0 Albumin 3.0 L Triglycerides Cholesterol LDL Cholesterol, Calc HDL Cholesterol Vitamin B12 Folate TSH Urine Color Urine Appearance Urine pH Ur Specific [place] Urine Protein Urine Glucose (UA) Urine Ketones Urine Blood Urine Nitrite Ur Leukocyte Esterase Urine RBC Urine WBC Ur Squamous Epith Cells Urine Bacteria Hyaline Casts Granular Casts Urine Yeast Stool Occult Blood Stl C. cayetanensis PCR Stool Rotavirus A PCR Stl Adenov F 40/41 PCR Stool Astrovirus (PCR) Stool Campylobacter PCR Stool Cryptosporidium PCR Stl Sh Tox Pr E STEC PCR Stool E coli O157 PCR Stl Enterotoxigenic E PCR Stool EPEC (PCR) Stool EAEC (PCR) Stl E. histolytica PCR Stool Giardia Lamblia PCR Stl P. shigelloides PCR Stool Salmonella PCR Stool Sapovirus (PCR) Stl Shigella/EIEC PCR St Y.enterocolitica PCR Stool Vibrio (PCR) Stl Vibrio cholerae PCR Stl Norovirus GI/GII PCR Valproic Acid C. difficile Tox B Gene C. difficile Toxin A&B C. difficile Interpret 12/14/23 12/14/23 12/15/23 16:05 19:57 06:34 WBC RBC Hgb Hct MCV MCH MCHC RDW Plt Count MPV Immature Gran % (Auto) Neut % (Auto) Lymph % (Auto) [place] % (Auto) Eos % (Auto) Baso % (Auto) Lymph # (Auto) [place] # (Auto) Eos # (Auto) Baso # (Auto) Abs Immat Gran (auto) Absolute Neuts (auto) Absolute Nucleated RBC Nucleated RBC % (auto) Sodium Potassium Chloride Carbon Dioxide Anion Gap BUN Creatinine Estim Creat Clear Calc Estimated GFR POC Glucose 128 H 248 H 92 Random Glucose Fasting Glucose Estimat Average Glucose Hemoglobin A1c % Calcium Total Bilirubin Direct Bilirubin AST ALT Alkaline Phosphatase Ammonia Total Protein Albumin Triglycerides Cholesterol LDL Cholesterol, Calc HDL Cholesterol Vitamin B12 Folate TSH Urine Color Urine Appearance Urine pH Ur Specific [place] Urine Protein Urine Glucose (UA) Urine Ketones Urine Blood Urine Nitrite Ur Leukocyte Esterase Urine RBC Urine WBC Ur Squamous Epith Cells Urine Bacteria Hyaline Casts Granular Casts Urine Yeast Stool Occult Blood Stl C. cayetanensis PCR Stool Rotavirus A PCR Stl Adenov F 40/41 PCR Stool Astrovirus (PCR) Stool Campylobacter PCR Stool Cryptosporidium PCR Stl Sh Tox Pr E STEC PCR Stool E coli O157 PCR Stl Enterotoxigenic E PCR Stool EPEC (PCR) Stool EAEC (PCR) Stl E. histolytica PCR Stool Giardia Lamblia PCR Stl P. shigelloides PCR Stool Salmonella PCR Stool Sapovirus (PCR) Stl Shigella/EIEC PCR St Y.enterocolitica PCR Stool Vibrio (PCR) Stl Vibrio cholerae PCR Stl Norovirus GI/GII PCR Valproic Acid C. difficile Tox B Gene C. difficile Toxin A&B C. difficile Interpret 12/15/23 12/15/23 12/15/23 11:20 16:06 20:24 WBC RBC Hgb Hct MCV MCH MCHC RDW Plt Count MPV Immature Gran % (Auto) Neut % (Auto) Lymph % (Auto) [place] % (Auto) Eos % (Auto) Baso % (Auto) Lymph # (Auto) [place] # (Auto) Eos # (Auto) Baso # (Auto) Abs Immat Gran (auto) Absolute Neuts (auto) Absolute Nucleated RBC Nucleated RBC % (auto) Sodium Potassium Chloride Carbon Dioxide Anion Gap BUN Creatinine Estim Creat Clear Calc Estimated GFR POC Glucose 295 H 142 H 230 H Random Glucose Fasting Glucose Estimat Average Glucose Hemoglobin A1c % Calcium Total Bilirubin Direct Bilirubin AST ALT Alkaline Phosphatase Ammonia Total Protein Albumin Triglycerides Cholesterol LDL Cholesterol, Calc HDL Cholesterol Vitamin B12 Folate TSH Urine Color Urine Appearance Urine pH Ur Specific [place] Urine Protein Urine Glucose (UA) Urine Ketones Urine Blood Urine Nitrite Ur Leukocyte Esterase Urine RBC Urine WBC Ur Squamous Epith Cells Urine Bacteria Hyaline Casts Granular Casts Urine Yeast Stool Occult Blood Stl C. cayetanensis PCR Stool Rotavirus A PCR Stl Adenov F PCR Stool Astrovirus (PCR) Stool Campylobacter PCR Stool Cryptosporidium PCR Stl Sh Tox Pr E STEC PCR Stool E coli O157 PCR Stl Enterotoxigenic E PCR Stool EPEC (PCR) Stool EAEC (PCR) Stl E. histolytica PCR Stool Giardia Lamblia PCR Stl P. shigelloides PCR Stool Salmonella PCR Stool Sapovirus (PCR) Stl Shigella/EIEC PCR St Y.enterocolitica PCR Stool Vibrio (PCR) Stl Vibrio cholerae PCR Stl Norovirus GI/GII PCR Valproic Acid C. difficile Tox B Gene C. difficile Toxin A&B C. difficile Interpret 12/16/23 12/16/23 12/16/23 06:30 11:13 16:19 WBC RBC Hgb Hct MCV MCH MCHC RDW Plt Count MPV Immature Gran % (Auto) Neut % (Auto) Lymph % (Auto) [place] % (Auto) Eos % (Auto) Baso % (Auto) Lymph # (Auto) [place] # (Auto) Eos # (Auto) Baso # (Auto) Abs Immat Gran (auto) Absolute Neuts (auto) Absolute Nucleated RBC Nucleated RBC % (auto) Sodium Potassium Chloride Carbon Dioxide Anion Gap BUN Creatinine Estim Creat Clear Calc Estimated GFR POC Glucose 90 136 H 186 H Random Glucose Fasting Glucose Estimat Average Glucose Hemoglobin A1c % Calcium Total Bilirubin Direct Bilirubin AST ALT Alkaline Phosphatase Ammonia Total Protein Albumin Triglycerides Cholesterol LDL Cholesterol, Calc HDL Cholesterol Vitamin B12 Folate TSH Urine Color Urine Appearance Urine pH Ur Specific [place] Urine Protein Urine Glucose (UA) Urine Ketones Urine Blood Urine Nitrite Ur Leukocyte Esterase Urine RBC Urine WBC Ur Squamous Epith Cells Urine Bacteria Hyaline Casts Granular Casts Urine Yeast Stool Occult Blood Stl C. cayetanensis PCR Stool Rotavirus A PCR Stl Adenov F PCR Stool Astrovirus (PCR) Stool Campylobacter PCR Stool Cryptosporidium PCR Stl Sh Tox Pr E STEC PCR Stool E coli O157 PCR Stl Enterotoxigenic E PCR Stool EPEC (PCR) Stool EAEC (PCR) Stl E. histolytica PCR Stool Giardia Lamblia PCR Stl P. shigelloides PCR Stool Salmonella PCR Stool Sapovirus (PCR) Stl Shigella/EIEC PCR St Y.enterocolitica PCR Stool Vibrio (PCR) Stl Vibrio cholerae PCR Stl Norovirus GI/GII PCR Valproic Acid C. difficile Tox B Gene C. difficile Toxin A&B C. difficile Interpret 12/16/23 12/17/23 12/17/23 20:22 06:40 08:06 WBC RBC Hgb Hct MCV MCH MCHC RDW Plt Count MPV Immature Gran % (Auto) Neut % (Auto) Lymph % (Auto) [place] % (Auto) Eos % (Auto) Baso % (Auto) Lymph # (Auto) [place] # (Auto) Eos # (Auto) Baso # (Auto) Abs Immat Gran (auto) Absolute Neuts (auto) Absolute Nucleated RBC Nucleated RBC % (auto) Sodium Potassium Chloride Carbon Dioxide Anion Gap BUN Creatinine Estim Creat Clear Calc Estimated GFR POC Glucose 196 H 139 H Random Glucose Fasting Glucose Estimat Average Glucose Hemoglobin A1c % Calcium Total Bilirubin Direct Bilirubin AST ALT Alkaline Phosphatase Ammonia Total Protein Albumin Triglycerides Cholesterol LDL Cholesterol, Calc HDL Cholesterol Vitamin B12 Folate TSH Urine Color Urine Appearance Urine pH Ur Specific [place] Urine Protein Urine Glucose (UA) Urine Ketones Urine Blood Urine Nitrite Ur Leukocyte Esterase Urine RBC Urine WBC Ur Squamous Epith Cells Urine Bacteria Hyaline Casts Granular Casts Urine Yeast Stool Occult Blood Stl C. cayetanensis PCR Stool Rotavirus A PCR Stl Adenov F 40/41 PCR Stool Astrovirus (PCR) Stool Campylobacter PCR Stool Cryptosporidium PCR Stl Sh Tox Pr E STEC PCR Stool E coli O157 PCR Stl Enterotoxigenic E PCR Stool EPEC (PCR) Stool EAEC (PCR) Stl E. histolytica PCR Stool Giardia Lamblia PCR Stl P. shigelloides PCR Stool Salmonella PCR Stool Sapovirus (PCR) Stl Shigella/EIEC PCR St Y.enterocolitica PCR Stool Vibrio (PCR) Stl Vibrio cholerae PCR Stl Norovirus GI/GII PCR Valproic Acid 24.9 L C. difficile Tox B Gene C. difficile Toxin A&B C. difficile Interpret 12/17/23 12/17/23 12/18/23 11:34 19:59 06:40 WBC RBC Hgb Hct MCV MCH MCHC RDW Plt Count MPV Immature Gran % (Auto) Neut % (Auto) Lymph % (Auto) [place] % (Auto) Eos % (Auto) Baso % (Auto) Lymph # (Auto) [place] # (Auto) Eos # (Auto) Baso # (Auto) Abs Immat Gran (auto) Absolute Neuts (auto) Absolute Nucleated RBC Nucleated RBC % (auto) Sodium Potassium Chloride Carbon Dioxide Anion Gap BUN Creatinine Estim Creat Clear Calc Estimated GFR POC Glucose 194 H 207 H 146 H Random Glucose Fasting Glucose Estimat Average Glucose Hemoglobin A1c % Calcium Total Bilirubin Direct Bilirubin AST ALT Alkaline Phosphatase Ammonia Total Protein Albumin Triglycerides Cholesterol LDL Cholesterol, Calc HDL Cholesterol Vitamin B12 Folate TSH Urine Color Urine Appearance Urine pH Ur Specific [place] Urine Protein Urine Glucose (UA) Urine Ketones Urine Blood Urine Nitrite Ur Leukocyte Esterase Urine RBC Urine WBC Ur Squamous Epith Cells Urine Bacteria Hyaline Casts Granular Casts Urine Yeast Stool Occult Blood Stl C. cayetanensis PCR Stool Rotavirus A PCR Stl Adenov F 40/41 PCR Stool Astrovirus (PCR) Stool Campylobacter PCR Stool Cryptosporidium PCR Stl Sh Tox Pr E STEC PCR Stool E coli O157 PCR Stl Enterotoxigenic E PCR Stool EPEC (PCR) Stool EAEC (PCR) Stl E. histolytica PCR Stool Giardia Lamblia PCR Stl P. shigelloides PCR Stool Salmonella PCR Stool Sapovirus (PCR) Stl Shigella/EIEC PCR St Y.enterocolitica PCR Stool Vibrio (PCR) Stl Vibrio cholerae PCR Stl Norovirus GI/GII PCR Valproic Acid C. difficile Tox B Gene C. difficile Toxin A&B C. difficile Interpret 12/18/23 12/18/23 12/18/23 11:31 16:32 19:57 WBC RBC Hgb Hct MCV MCH MCHC RDW Plt Count MPV Immature Gran % (Auto) Neut % (Auto) Lymph % (Auto) [place] % (Auto) Eos % (Auto) Baso % (Auto) Lymph # (Auto) [place] # (Auto) Eos # (Auto) Baso # (Auto) Abs Immat Gran (auto) Absolute Neuts (auto) Absolute Nucleated RBC Nucleated RBC % (auto) Sodium Potassium Chloride Carbon Dioxide Anion Gap BUN Creatinine Estim Creat Clear Calc Estimated GFR POC Glucose 149 H 126 H 134 H Random Glucose Fasting Glucose Estimat Average Glucose Hemoglobin A1c % Calcium Total Bilirubin Direct Bilirubin AST ALT Alkaline Phosphatase Ammonia Total Protein Albumin Triglycerides Cholesterol LDL Cholesterol, Calc HDL Cholesterol Vitamin B12 Folate TSH Urine Color Urine Appearance Urine pH Ur Specific [place] Urine Protein Urine Glucose (UA) Urine Ketones Urine Blood Urine Nitrite Ur Leukocyte Esterase Urine RBC Urine WBC Ur Squamous Epith Cells Urine Bacteria Hyaline Casts Granular Casts Urine Yeast Stool Occult Blood Stl C. cayetanensis PCR Stool Rotavirus A PCR Stl Adenov F 40/41 PCR Stool Astrovirus (PCR) Stool Campylobacter PCR Stool Cryptosporidium PCR Stl Sh Tox Pr E STEC PCR Stool E coli O157 PCR Stl Enterotoxigenic E PCR Stool EPEC (PCR) Stool EAEC (PCR) Stl E. histolytica PCR Stool Giardia Lamblia PCR Stl P. shigelloides PCR Stool Salmonella PCR Stool Sapovirus (PCR) Stl Shigella/EIEC PCR St Y.enterocolitica PCR Stool Vibrio (PCR) Stl Vibrio cholerae PCR Stl Norovirus GI/GII PCR Valproic Acid C. difficile Tox B Gene C. difficile Toxin A&B C. difficile Interpret Assessment and Plan Final Anesthetic Review Family History of Problems with Anesthesia: No History of Problems with Anesthesia: No
--- NOTE | 2023-12-18 21:29 | MHC.SHP ---
Pre-Procedural Eval Section A - 24 Hr Update-Section A only Date of Service: 12/18/23 The patient is an INPATIENT: Yes Changes since office visit: No Cold of Flu in the past 2 weeks, No New Medical Problems, No Changes in Medication and No Patient answered all questions The patient has been examined within 24 hours of the surgical procedure. The History & Physical has been completed within 30 days and I have reviewed it.: Yes Section B - Complete if H&P > 30 days Chief Complaint: Major depressive disorder, severe, recurrent Allergies: Allergies Allergy/AdvReac Type Severity Reaction Status Date / Time atropine Allergy Unknown Shortness Verified 12/02/23 23:30 of Breath enoxaparin [From Lovenox] Allergy Unknown Unknown Verified 12/02/23 23:30 penicillin V Allergy Unknown Unknown Verified 03/19/23 07:30 pseudoephedrine [Aprodine] Allergy Unknown Unknown Verified 03/19/23 07:30 triprolidine [Aprodine] Allergy Unknown Unknown Verified 03/19/23 07:30 Plan I have reviewed the history and physical and performed a pertinent physical examination on my patient. No changes have occurred unless specified. Time Spent With Patient Time: Total time managing care of this patient today ____ minutes.
--- NOTE | 2023-12-18 22:20 | HO.ECTPROC ---
ECT Procedure Note Diagnosis/Treatment Date of Service: 12/18/23 Diagnosis: Major Depressive Disorder and Catatonia Previous ECT Date: 12/13/23 Current Treatment Number: 2 Treatment: Series Interval Clinical Notes: The patient has minimal improvement after the first ECT, a little more verbal but still nearly catatonic. ECT done as bitemperal 0.5 100%, no complications. Woke up well. Time: Total time managing care of this patient today ____ minutes. ECT Settings Device: THYMATRON DGx Electrode Placement: Bitemporal Program/Pulse Width: 0.50 Energy Percent: 100 Seizure Duration By EEG (in seconds): 64 Medications Administration General Anesthetic: Etomidate (12) Muscle Relaxant: Succinylcholine (80) Ancillary Medications Cardiovascular Medications: Glycopyrrolate (0.3 pre ECT ) Airway Management Airway Management: Bag Mask Ventilation Treatment Recommendations No Changes Recommended: No change Pt Tolerated Procedure w/o Issue: Yes
--- NOTE | 2023-12-19 00:09 | HO.POSTANES ---
Post Anesthesia Evaluation Post Anesthesia Evaluation Date of Service: 12/18/23 Vital Signs: Vital Signs Temp Pulse Resp BP Pulse Ox O2 Del Method O2 Flow Rate 12/18/23 22:52 97.3 F 80 16 136/73 100 Room Air 12/18/23 22:37 89 16 138/63 100 Room Air 12/18/23 22:32 84 16 134/70 100 Nasal Cannula with ETCO2 2 12/18/23 22:27 95 16 141/68 H 99 Nasal Cannula with ETCO2 2 12/18/23 22:22 97.3 F 95 16 162/72 H 100 Nasal Cannula with ETCO2 2 12/18/23 20:59 97.2 F 65 16 118/61 96 Room Air 12/18/23 20:45 97.4 F 70 18 179/88 H 97 Room Air 12/18/23 20:30 97.4 F 70 18 179/88 H 97 Mental Status: Awake Pain Control: Satisfactory Nausea/Vomiting: None Hydration: Adequate Anesthesia-Related Issues: No Anes. Related Issues
--- NOTE | 2023-12-19 00:10 | HO.ANESPROP2 ---
[facility] Active Problems Active Problems: All Active Problems Hx of Clostridium difficile infection (Acute) Preoperative cardiovascular examination (Acute) Catatonia (Acute) Fixed constriction of pupil (Acute) Major depressive disorder with psychotic features (Acute) Dark stools (Acute) Routine medical exam (Acute) Essential hypertension (Acute) Type 2 diabetes mellitus with unspecified complications (Acute) Aortic valve sclerosis (Acute) Murmur (Acute) CKD (chronic kidney disease) stage 3, GFR 30-59 ml/min (Acute) Vitamin D deficiency (Acute) HLD (hyperlipidemia) (Acute) HTN (hypertension) (Acute) T2DM (type 2 diabetes mellitus) (Acute) Past Medical History Medical History Cirrhosis Hypothyroidism Breast cancer Hx of Clostridium difficile infection (HFpEF) heart failure with preserved ejection fraction Murmur CKD (chronic kidney disease) stage 3, GFR 30-59 ml/min Vitamin D deficiency HLD (hyperlipidemia) HTN (hypertension) T2DM (type 2 diabetes mellitus) Family History Family History Father Alzheimer disease Stroke Mother Breast cancer Family history of problems with anesthesia: No Surgical History Surgical History Hx of cataract surgery History of lumpectomy of right breast History of mastectomy History of Problems with Anesthesia: No Social History Social History Household Members: Family Household Members Other:: son Alcohol intake: never Patient Tobacco Use Status: Never used Tobacco Use of substances other than those prescribed or required for medical reasons: Unable to respond Last Used Substance Other:: unknown, unable to respond, she is nonsensical and delusional when she does Currently Displaying Signs/Symptoms of Drug Intoxication Withdrawal: No Other Past Substance Use Problem:: unknown, unable to respond, she is nonsensical and delusional when she does Spiritual Healthcare Practices: unknown, unable to respond, she is nonsensical and delusional when she does respond [facility] Practices: unknown, unable to respond, she is nonsensical and delusional when she does respond Cultural Healthcare Practices: unknown, unable to respond, she is nonsensical and delusional when she does respond Advance Directives: No Advance Directives Information Provided: No Do you have thoughts of harming others: None Do you have a plan to hurt others: No Plan Recently lost weight without trying: Unsure Patient : No : No Poor oral hygiene: No service: No Sexual orientation: Straight/Heterosexual Meds Allergies Allergy/AdvReac Type Severity Reaction Status Date / Time atropine Allergy Unknown Shortness Verified 12/02/23 23:30 of Breath enoxaparin [From Lovenox] Allergy Unknown Unknown Verified 12/02/23 23:30 penicillin V Allergy Unknown Unknown Verified 03/19/23 07:30 pseudoephedrine [Aprodine] Allergy Unknown Unknown Verified 03/19/23 07:30 triprolidine [Aprodine] Allergy Unknown Unknown Verified 03/19/23 07:30 Active Medications: Current Medications Acetaminophen (Acetaminophen 325 Mg Tablet) 650 mg PO Q6H PRN PRN Reason: Headache/Pain Mild Scale (1-3) Al Hydroxide/Mg Hydroxide (Magnesium Hydrox/Alum Hydrox 30 Ml Oral.Susp) 30 ml PO Q6H PRN PRN Reason: Heartburn/Nausea Amlodipine Besylate (Amlodipine Besylate 5 Mg Tablet) 5 mg PO DAILY [facility]; Protocol Last Admin: 12/18/23 09:34 Dose: Not Given Anastrozole (Anastrozole 1 Mg Tablet) 1 mg PO DAILY [facility] [place] Last Admin: 12/18/23 09:34 Dose: Not Given Aspirin (Aspirin 81 Mg Tab.Chew) 81 mg PO DAILY [facility] [place] Last Admin: 12/18/23 09:34 Dose: Not Given Atorvastatin Calcium (Atorvastatin Calcium 10 Mg Tablet) 10 mg PO BEDTIME [facility] [place] Last Admin: 12/19/23 00:05 Dose: Not Given Ferrous Sulfate (Ferrous Sulfate 324 Mg Tablet.Dr) 324 mg PO DAILY [facility] [place] Last Admin: 12/18/23 09:35 Dose: Not Given Furosemide (Furosemide 20 Mg Tablet) 20 mg PO DAILY [facility] [place]; Protocol Last Admin: 12/18/23 09:35 Dose: Not Given Glucose (Glucose Gel 15 Gm Gel..Gram.) 15 gm PO Q15M PRN; Protocol PRN Reason: per Hypoglycemia Standing Ord. Dextrose (D10) 250 mls @ 750 mls/hr IV Q15M PRN; Protocol PRN Reason: per Hypoglycemia Standing Ord. Insulin Glargine (Insulin Glargine,Hum.Rec.Anlog 100 Unit/Ml 10 Ml Vial) 6 unit SUBCUT BEDTIME [facility] [place] Last Admin: 12/17/23 21:15 Dose: Not Given Insulin Human Lispro (Insulin Lispro 100 Unit/Ml 3 Ml Vial) 0 unit SUBCUT QIDACHS [facility] [place]; Protocol Last Admin: 12/19/23 00:07 Dose: Not Given Loratadine (Loratadine 10 Mg Tablet) 10 mg PO BEDTIME [facility] [place] Last Admin: 12/19/23 00:05 Dose: Not Given Losartan Potassium (Losartan Potassium 50 Mg Tablet) 100 mg PO DAILY [facility] [place]; Protocol Last Admin: 12/18/23 09:35 Dose: Not Given Magnesium Hydroxide (Milk Of Magnesia 30 Ml Oral.Susp) 30 ml PO DAILY PRN PRN Reason: Constipation Magnesium Oxide (Magnesium Oxide 400 Mg Tablet) 400 mg PO BID [facility] [place] Last Admin: 12/19/23 00:06 Dose: Not Given Mirtazapine (Mirtazapine 30 Mg Tablet) 30 mg PO BEDTIME [facility] [place] Last Admin: 12/19/23 00:06 Dose: Not Given Multivitamins/Vitamin C (Multivitamin Tablet) 1 tab PO DAILY [facility] [place] Last Admin: 12/18/23 09:34 Dose: Not Given Nicotine Polacrilex (Nicotine Polacrilex 2 Mg Gum) 4 mg BUCCAL Q2H PRN PRN Reason: Nicotine Cravings Omeprazole (Omeprazole 20 Mg Capsule.Dr) 20 mg PO DAILY@0630 [facility] [place] Last Admin: 12/18/23 09:34 Dose: Not Given Risperidone (Risperidone 0.5 Mg Tablet) 0.5 mg PO BID PRN PRN Reason: Restlessness Sodium Chloride (0.9 % Sodium Chloride Flush 10 Ml Syringe) 5 ml IVFLUSH QSHIFT [facility] [place] Last Admin: 12/18/23 17:13 Dose: 5 ml Thiamine HCl (Thiamine Hcl 100 Mg Tablet) 100 mg PO DAILY [facility] [place] Last Admin: 12/18/23 09:34 Dose: Not Given Trazodone HCl (Trazodone Hcl 50 Mg Tablet) 50 mg PO BEDTIME PRN PRN Reason: Insomnia Last Admin: 12/08/23 22:06 Dose: 50 mg Valproic Acid (Valproic Acid (As Sodium Salt) 250 Mg/5 Ml Solution) 250 mg PO BID [facility] [place] Last Admin: 12/19/23 00:06 Dose: Not Given Home Medications ?Medication ?Instructions ?Recorded ?Confirmed ?Last Taken ?Type ascorbate calcium (vitamin C) 500 500 mg PO DAILY 03/24/20 11/20/22 Unknown History mg tablet fluoxetine 20 mg capsule 40 mg PO DAILY 03/24/20 11/20/22 Unknown History levothyroxine 100 mcg tablet 100 mcg PO QAM 03/24/20 11/20/22 Unknown History mirtazapine 30 mg tablet 30 mg PO BEDTIME 03/24/20 11/20/22 Unknown History omeprazole 20 mg capsule,delayed 20 mg PO DAILY 03/24/20 11/20/22 Unknown History release risperidone 1 mg tablet 1 mg PO BEDTIME 03/24/20 11/20/22 Unknown History insulin glargine 100 unit/mL (3 30 unit subcut BEDTIME 09/28/20 11/20/22 Unknown History mL) subcutaneous pen anastrozole 1 mg tablet 1 mg PO DAILY 02/16/21 11/20/22 Unknown History dapagliflozin propanediol 10 mg 10 mg PO QAM 05/08/21 11/20/22 Unknown History tablet (Farxiga) losartan 50 mg tablet 50 mg PO DAILY 09/14/21 11/20/22 Unknown History amlodipine 5 mg tablet 5 mg PO QAM 12/02/23 12/02/23 Unknown History anastrozole 1 mg tablet 1 mg PO DAILY 12/02/23 12/02/23 Unknown History aspirin 81 mg chewable tablet 1 tab PO QAM 12/02/23 12/02/23 Unknown History cetirizine 5 mg tablet 5 mg PO BEDTIME 12/02/23 12/02/23 Unknown History divalproex 500 mg tablet,delayed 500 mg PO BEDTIME 12/02/23 12/02/23 Unknown History release ferrous sulfate 325 mg (65 mg 325 mg PO QAM 12/02/23 12/02/23 Unknown History iron) tablet (FeroSul) furosemide 20 mg tablet (Lasix) 20 mg PO DAILY 12/02/23 12/02/23 Unknown History insulin glargine 100 unit/mL 6 unit subcut BEDTIME 12/02/23 12/02/23 Unknown History subcutaneous solution insulin lispro 100 unit/mL 1 sliding scale dose subcut 12/02/23 12/02/23 Unknown History subcutaneous solution USEASDIRECTD levetiracetam 500 mg tablet 500 mg PO BID 12/02/23 12/02/23 Unknown History losartan 100 mg tablet 100 mg PO DAILY 12/02/23 12/02/23 Unknown History losartan 100 mg tablet 100 mg PO DAILY 12/02/23 12/02/23 Unknown History magnesium oxide 400 mg PO BID 12/02/23 12/02/23 Unknown History mirtazapine 30 mg disintegrating 30 mg PO BEDTIME 12/02/23 12/02/23 Unknown History tablet multivitamin with minerals 1 tab PO DAILY 12/02/23 12/02/23 Unknown History pantoprazole 40 mg tablet,delayed 40 mg PO DAILY 12/02/23 12/02/23 Unknown History release risperidone 0.5 mg tablet 0.5 mg PO BID PRN Agitation 12/02/23 12/02/23 Unknown History risperidone 2 mg tablet 2 mg PO BID 12/02/23 12/02/23 Unknown History simvastatin 20 mg tablet 20 mg PO BEDTIME 12/02/23 12/02/23 Unknown History thiamine HCl (vitamin B1) 100 mg 100 mg PO QAM 12/02/23 12/02/23 Unknown History tablet trazodone 50 mg tablet 50 mg PO BEDTIME PRN insomnia 12/02/23 12/02/23 Unknown History vancomycin 125 mg capsule See Rx Instructions .Route .COMPLEX 12/02/23 12/02/23 Unknown History (Vancocin) Exam Height,Weight and Vital Signs: Height 4 ft 11 in Weight 45.2 kg Last Vital Signs Temp 97.3 F 12/18/23 22:52 Pulse 80 12/18/23 22:52 Resp 16 12/18/23 22:52 BP 136/73 12/18/23 22:52 Pulse Ox 100 12/18/23 22:52 O2 Del Method Room Air 12/18/23 22:52 O2 Flow Rate 2 12/18/23 22:32 Pertinent Lab Results Pertinent Lab Results: Laboratory Tests 12/02/23 12/03/23 12/03/23 22:55 06:35 08:01 WBC RBC Hgb Hct MCV MCH MCHC RDW Plt Count MPV Immature Gran % (Auto) Neut % (Auto) Lymph % (Auto) [place] % (Auto) Eos % (Auto) Baso % (Auto) Lymph # (Auto) [place] # (Auto) Eos # (Auto) Baso # (Auto) Abs Immat Gran (auto) Absolute Neuts (auto) Absolute Nucleated RBC Nucleated RBC % (auto) Sodium 134 L Potassium 4.0 Chloride 98 Carbon Dioxide 27 Anion Gap 13 BUN 21 H Creatinine 0.88 Estim Creat Clear Calc TNP Estimated GFR > 60 POC Glucose 296 H 212 H Random Glucose Fasting Glucose 236 H Estimat Average Glucose 169 Hemoglobin A1c % 7.5 H Calcium 10.2 Total Bilirubin 0.5 Direct Bilirubin AST 19 ALT 16 Alkaline Phosphatase 93 Ammonia Total Protein 8.7 H Albumin 3.5 Triglycerides 105 Cholesterol 182 LDL Cholesterol, Calc 93 HDL Cholesterol 68 Vitamin B12 Folate TSH Urine Color Urine Appearance Urine pH Ur Specific [place] Urine Protein Urine Glucose (UA) Urine Ketones Urine Blood Urine Nitrite Ur Leukocyte Esterase Urine RBC Urine WBC Ur Squamous Epith Cells Urine Bacteria Hyaline Casts Granular Casts Urine Yeast Stool Occult Blood Stl C. cayetanensis PCR Stool Rotavirus A PCR Stl Adenov F 40/ PCR Stool Astrovirus (PCR) Stool Campylobacter PCR Stool Cryptosporidium PCR Stl Sh Tox Pr E STEC PCR Stool E coli O157 PCR Stl Enterotoxigenic E PCR Stool EPEC (PCR) Stool EAEC (PCR) Stl E. histolytica PCR Stool Giardia Lamblia PCR Stl P. shigelloides PCR Stool Salmonella PCR Stool Sapovirus (PCR) Stl Shigella/EIEC PCR St Y.enterocolitica PCR Stool Vibrio (PCR) Stl Vibrio cholerae PCR Stl Norovirus GI/GII PCR Valproic Acid C. difficile Tox B Gene C. difficile Toxin A&B C. difficile Interpret 12/03/23 12/03/23 12/03/23 10:29 11:31 11:45 WBC 4.6 L RBC 3.96 L Hgb 10.9 L Hct 33.1 L MCV 83.6 MCH 27.5 MCHC 32.9 RDW 14.9 Plt Count 116 L MPV 9.5 Immature Gran % (Auto) 0.2 Neut % (Auto) 70.4 Lymph % (Auto) 17.7 L [place] % (Auto) 10.4 Eos % (Auto) 1.1 Baso % (Auto) 0.2 Lymph # (Auto) 0.8 L [place] # (Auto) 0.5 Eos # (Auto) 0.1 Baso # (Auto) 0.0 Abs Immat Gran (auto) 0.01 Absolute Neuts (auto) 3.3 Absolute Nucleated RBC 0.000 Nucleated RBC % (auto) 0.0 Sodium Potassium Chloride Carbon Dioxide Anion Gap BUN Creatinine Estim Creat Clear Calc Estimated GFR POC Glucose 234 H Random Glucose Fasting Glucose Estimat Average Glucose Hemoglobin A1c % Calcium Total Bilirubin Direct Bilirubin AST ALT Alkaline Phosphatase Ammonia 55 Total Protein Albumin Triglycerides Cholesterol LDL Cholesterol, Calc HDL Cholesterol Vitamin B12 Folate TSH Urine Color Urine Appearance Urine pH Ur Specific [place] Urine Protein Urine Glucose (UA) Urine Ketones Urine Blood Urine Nitrite Ur Leukocyte Esterase Urine RBC Urine WBC Ur Squamous Epith Cells Urine Bacteria Hyaline Casts Granular Casts Urine Yeast Stool Occult Blood Stl C. cayetanensis PCR Stool Rotavirus A PCR Stl Adenov F 40/41 PCR Stool Astrovirus (PCR) Stool Campylobacter PCR Stool Cryptosporidium PCR Stl Sh Tox Pr E STEC PCR Stool E coli O157 PCR Stl Enterotoxigenic E PCR Stool EPEC (PCR) Stool EAEC (PCR) Stl E. histolytica PCR Stool Giardia Lamblia PCR Stl P. shigelloides PCR Stool Salmonella PCR Stool Sapovirus (PCR) Stl Shigella/EIEC PCR St Y.enterocolitica PCR Stool Vibrio (PCR) Stl Vibrio cholerae PCR Stl Norovirus GI/GII PCR Valproic Acid C. difficile Tox B Gene C. difficile Toxin A&B C. difficile Interpret 12/03/23 12/03/23 12/03/23 16:05 16:31 17:30 WBC RBC Hgb Hct MCV MCH MCHC RDW Plt Count MPV Immature Gran % (Auto) Neut % (Auto) Lymph % (Auto) [place] % (Auto) Eos % (Auto) Baso % (Auto) Lymph # (Auto) [place] # (Auto) Eos # (Auto) Baso # (Auto) Abs Immat Gran (auto) Absolute Neuts (auto) Absolute Nucleated RBC Nucleated RBC % (auto) Sodium Potassium Chloride Carbon Dioxide Anion Gap BUN Creatinine Estim Creat Clear Calc Estimated GFR POC Glucose 217 H Random Glucose Fasting Glucose Estimat Average Glucose Hemoglobin A1c % Calcium Total Bilirubin Direct Bilirubin AST ALT Alkaline Phosphatase Ammonia Total Protein Albumin Triglycerides Cholesterol LDL Cholesterol, Calc HDL Cholesterol Vitamin B12 Folate TSH Urine Color Yellow Urine Appearance Cloudy Urine pH 5.5 Ur Specific [place] 1.020 Urine Protein 30 (1+) H Urine Glucose (UA) Negative Urine Ketones Negative Urine Blood Moderate (2+) H Urine Nitrite Negative Ur Leukocyte Esterase Moderate (2+) H Urine RBC >20 H Urine WBC >50 H Ur Squamous Epith Cells 3-5 Urine Bacteria 4+ Hyaline Casts >20 Granular Casts Present Urine Yeast Present Stool Occult Blood NEGATIVE Stl C. cayetanensis PCR Not Detected Stool Rotavirus A PCR Not Detected Stl Adenov F 40 PCR Not Detected Stool Astrovirus (PCR) Not Detected Stool Campylobacter PCR Not Detected Stool Cryptosporidium PCR Not Detected Stl Sh Tox Pr E STEC PCR Not Detected Stool E coli O157 PCR Not applicable Stl Enterotoxigenic E PCR Not Detected Stool EPEC (PCR) Not Detected Stool EAEC (PCR) Not Detected Stl E. histolytica PCR Not Detected Stool Giardia Lamblia PCR Not Detected Stl P. shigelloides PCR Not Detected Stool Salmonella PCR Not Detected Stool Sapovirus (PCR) Not Detected Stl Shigella/EIEC PCR Not Detected St Y.enterocolitica PCR Not Detected Stool Vibrio (PCR) Not Detected Stl Vibrio cholerae PCR Not Detected Stl Norovirus GI/GII PCR Not Detected Valproic Acid C. difficile Tox B Gene POSITIVE A* C. difficile Toxin A&B Positive A* C. difficile Interpret SEE NOTE 12/03/23 12/04/23 12/04/23 21:03 06:21 11:26 WBC RBC Hgb Hct MCV MCH MCHC RDW Plt Count MPV Immature Gran % (Auto) Neut % (Auto) Lymph % (Auto) [place] % (Auto) Eos % (Auto) Baso % (Auto) Lymph # (Auto) [place] # (Auto) Eos # (Auto) Baso # (Auto) Abs Immat Gran (auto) Absolute Neuts (auto) Absolute Nucleated RBC Nucleated RBC % (auto) Sodium Potassium Chloride Carbon Dioxide Anion Gap BUN Creatinine Estim Creat Clear Calc Estimated GFR POC Glucose 207 H 176 H 210 H Random Glucose Fasting Glucose Estimat Average Glucose Hemoglobin A1c % Calcium Total Bilirubin Direct Bilirubin AST ALT Alkaline Phosphatase Ammonia Total Protein Albumin Triglycerides Cholesterol LDL Cholesterol, Calc HDL Cholesterol Vitamin B12 Folate TSH Urine Color Urine Appearance Urine pH Ur Specific [place] Urine Protein Urine Glucose (UA) Urine Ketones Urine Blood Urine Nitrite Ur Leukocyte Esterase Urine RBC Urine WBC Ur Squamous Epith Cells Urine Bacteria Hyaline Casts Granular Casts Urine Yeast Stool Occult Blood Stl C. cayetanensis PCR Stool Rotavirus A PCR Stl Adenov F 40/ PCR Stool Astrovirus (PCR) Stool Campylobacter PCR Stool Cryptosporidium PCR Stl Sh Tox Pr E STEC PCR Stool E coli O157 PCR Stl Enterotoxigenic E PCR Stool EPEC (PCR) Stool EAEC (PCR) Stl E. histolytica PCR Stool Giardia Lamblia PCR Stl P. shigelloides PCR Stool Salmonella PCR Stool Sapovirus (PCR) Stl Shigella/EIEC PCR St Y.enterocolitica PCR Stool Vibrio (PCR) Stl Vibrio cholerae PCR Stl Norovirus GI/GII PCR Valproic Acid C. difficile Tox B Gene C. difficile Toxin A&B C. difficile Interpret 12/04/23 12/04/23 12/05/23 16:34 20:17 06:35 WBC RBC Hgb Hct MCV MCH MCHC RDW Plt Count MPV Immature Gran % (Auto) Neut % (Auto) Lymph % (Auto) [place] % (Auto) Eos % (Auto) Baso % (Auto) Lymph # (Auto) [place] # (Auto) Eos # (Auto) Baso # (Auto) Abs Immat Gran (auto) Absolute Neuts (auto) Absolute Nucleated RBC Nucleated RBC % (auto) Sodium Potassium Chloride Carbon Dioxide Anion Gap BUN Creatinine Estim Creat Clear Calc Estimated GFR POC Glucose 176 H 154 H 146 H Random Glucose Fasting Glucose Estimat Average Glucose Hemoglobin A1c % Calcium Total Bilirubin Direct Bilirubin AST ALT Alkaline Phosphatase Ammonia Total Protein Albumin Triglycerides Cholesterol LDL Cholesterol, Calc HDL Cholesterol Vitamin B12 Folate TSH Urine Color Urine Appearance Urine pH Ur Specific [place] Urine Protein Urine Glucose (UA) Urine Ketones Urine Blood Urine Nitrite Ur Leukocyte Esterase Urine RBC Urine WBC Ur Squamous Epith Cells Urine Bacteria Hyaline Casts Granular Casts Urine Yeast Stool Occult Blood Stl C. cayetanensis PCR Stool Rotavirus A PCR Stl Adenov F 40/41 PCR Stool Astrovirus (PCR) Stool Campylobacter PCR Stool Cryptosporidium PCR Stl Sh Tox Pr E STEC PCR Stool E coli O157 PCR Stl Enterotoxigenic E PCR Stool EPEC (PCR) Stool EAEC (PCR) Stl E. histolytica PCR Stool Giardia Lamblia PCR Stl P. shigelloides PCR Stool Salmonella PCR Stool Sapovirus (PCR) Stl Shigella/EIEC PCR St Y.enterocolitica PCR Stool Vibrio (PCR) Stl Vibrio cholerae PCR Stl Norovirus GI/GII PCR Valproic Acid C. difficile Tox B Gene C. difficile Toxin A&B C. difficile Interpret 12/05/23 12/05/23 12/05/23 11:08 16:36 20:27 WBC RBC Hgb Hct MCV MCH MCHC RDW Plt Count MPV Immature Gran % (Auto) Neut % (Auto) Lymph % (Auto) [place] % (Auto) Eos % (Auto) Baso % (Auto) Lymph # (Auto) [place] # (Auto) Eos # (Auto) Baso # (Auto) Abs Immat Gran (auto) Absolute Neuts (auto) Absolute Nucleated RBC Nucleated RBC % (auto) Sodium Potassium Chloride Carbon Dioxide Anion Gap BUN Creatinine Estim Creat Clear Calc Estimated GFR POC Glucose 164 H 162 H 198 H Random Glucose Fasting Glucose Estimat Average Glucose Hemoglobin A1c % Calcium Total Bilirubin Direct Bilirubin AST ALT Alkaline Phosphatase Ammonia Total Protein Albumin Triglycerides Cholesterol LDL Cholesterol, Calc HDL Cholesterol Vitamin B12 Folate TSH Urine Color Urine Appearance Urine pH Ur Specific [place] Urine Protein Urine Glucose (UA) Urine Ketones Urine Blood Urine Nitrite Ur Leukocyte Esterase Urine RBC Urine WBC Ur Squamous Epith Cells Urine Bacteria Hyaline Casts Granular Casts Urine Yeast Stool Occult Blood Stl C. cayetanensis PCR Stool Rotavirus A PCR Stl Adenov F 40/41 PCR Stool Astrovirus (PCR) Stool Campylobacter PCR Stool Cryptosporidium PCR Stl Sh Tox Pr E STEC PCR Stool E coli O157 PCR Stl Enterotoxigenic E PCR Stool EPEC (PCR) Stool EAEC (PCR) Stl E. histolytica PCR Stool Giardia Lamblia PCR Stl P. shigelloides PCR Stool Salmonella PCR Stool Sapovirus (PCR) Stl Shigella/EIEC PCR St Y.enterocolitica PCR Stool Vibrio (PCR) Stl Vibrio cholerae PCR Stl Norovirus GI/GII PCR Valproic Acid C. difficile Tox B Gene C. difficile Toxin A&B C. difficile Interpret 12/06/23 12/06/23 12/06/23 06:22 07:57 11:30 WBC RBC Hgb Hct MCV MCH MCHC RDW Plt Count MPV Immature Gran % (Auto) Neut % (Auto) Lymph % (Auto) [place] % (Auto) Eos % (Auto) Baso % (Auto) Lymph # (Auto) [place] # (Auto) Eos # (Auto) Baso # (Auto) Abs Immat Gran (auto) Absolute Neuts (auto) Absolute Nucleated RBC Nucleated RBC % (auto) Sodium 142 Potassium 4.5 Chloride 103 Carbon Dioxide 30 H Anion Gap 14 BUN 32 H Creatinine 0.88 Estim Creat Clear Calc 37.7 Estimated GFR > 60 POC Glucose 122 H 135 H Random Glucose Fasting Glucose 137 H Estimat Average Glucose Hemoglobin A1c % Calcium 10.7 H Total Bilirubin 0.5 Direct Bilirubin AST 24 ALT 15 Alkaline Phosphatase 97 Ammonia Total Protein 9.2 H Albumin 3.6 Triglycerides Cholesterol LDL Cholesterol, Calc HDL Cholesterol Vitamin B12 1504 H Folate 14.9 TSH 2.88 Urine Color Urine Appearance Urine pH Ur Specific [place] Urine Protein Urine Glucose (UA) Urine Ketones Urine Blood Urine Nitrite Ur Leukocyte Esterase Urine RBC Urine WBC Ur Squamous Epith Cells Urine Bacteria Hyaline Casts Granular Casts Urine Yeast Stool Occult Blood Stl C. cayetanensis PCR Stool Rotavirus A PCR Stl Adenov F PCR Stool Astrovirus (PCR) Stool Campylobacter PCR Stool Cryptosporidium PCR Stl Sh Tox Pr E STEC PCR Stool E coli O157 PCR Stl Enterotoxigenic E PCR Stool EPEC (PCR) Stool EAEC (PCR) Stl E. histolytica PCR Stool Giardia Lamblia PCR Stl P. shigelloides PCR Stool Salmonella PCR Stool Sapovirus (PCR) Stl Shigella/EIEC PCR St Y.enterocolitica PCR Stool Vibrio (PCR) Stl Vibrio cholerae PCR Stl Norovirus GI/GII PCR Valproic Acid C. difficile Tox B Gene C. difficile Toxin A&B C. difficile Interpret 12/06/23 12/06/23 12/07/23 16:30 19:51 06:57 WBC RBC Hgb Hct MCV MCH MCHC RDW Plt Count MPV Immature Gran % (Auto) Neut % (Auto) Lymph % (Auto) [place] % (Auto) Eos % (Auto) Baso % (Auto) Lymph # (Auto) [place] # (Auto) Eos # (Auto) Baso # (Auto) Abs Immat Gran (auto) Absolute Neuts (auto) Absolute Nucleated RBC Nucleated RBC % (auto) Sodium Potassium Chloride Carbon Dioxide Anion Gap BUN Creatinine Estim Creat Clear Calc Estimated GFR POC Glucose 173 H 208 H 151 H Random Glucose Fasting Glucose Estimat Average Glucose Hemoglobin A1c % Calcium Total Bilirubin Direct Bilirubin AST ALT Alkaline Phosphatase Ammonia Total Protein Albumin Triglycerides Cholesterol LDL Cholesterol, Calc HDL Cholesterol Vitamin B12 Folate TSH Urine Color Urine Appearance Urine pH Ur Specific [place] Urine Protein Urine Glucose (UA) Urine Ketones Urine Blood Urine Nitrite Ur Leukocyte Esterase Urine RBC Urine WBC Ur Squamous Epith Cells Urine Bacteria Hyaline Casts Granular Casts Urine Yeast Stool Occult Blood Stl C. cayetanensis PCR Stool Rotavirus A PCR Stl Adenov F PCR Stool Astrovirus (PCR) Stool Campylobacter PCR Stool Cryptosporidium PCR Stl Sh Tox Pr E STEC PCR Stool E coli O157 PCR Stl Enterotoxigenic E PCR Stool EPEC (PCR) Stool EAEC (PCR) Stl E. histolytica PCR Stool Giardia Lamblia PCR Stl P. shigelloides PCR Stool Salmonella PCR Stool Sapovirus (PCR) Stl Shigella/EIEC PCR St Y.enterocolitica PCR Stool Vibrio (PCR) Stl Vibrio cholerae PCR Stl Norovirus GI/GII PCR Valproic Acid C. difficile Tox B Gene C. difficile Toxin A&B C. difficile Interpret 12/07/23 12/07/23 12/07/23 11:09 16:11 19:32 WBC RBC Hgb Hct MCV MCH MCHC RDW Plt Count MPV Immature Gran % (Auto) Neut % (Auto) Lymph % (Auto) [place] % (Auto) Eos % (Auto) Baso % (Auto) Lymph # (Auto) [place] # (Auto) Eos # (Auto) Baso # (Auto) Abs Immat Gran (auto) Absolute Neuts (auto) Absolute Nucleated RBC Nucleated RBC % (auto) Sodium Potassium Chloride Carbon Dioxide Anion Gap BUN Creatinine Estim Creat Clear Calc Estimated GFR POC Glucose 167 H 154 H 225 H Random Glucose Fasting Glucose Estimat Average Glucose Hemoglobin A1c % Calcium Total Bilirubin Direct Bilirubin AST ALT Alkaline Phosphatase Ammonia Total Protein Albumin Triglycerides Cholesterol LDL Cholesterol, Calc HDL Cholesterol Vitamin B12 Folate TSH Urine Color Urine Appearance Urine pH Ur Specific [place] Urine Protein Urine Glucose (UA) Urine Ketones Urine Blood Urine Nitrite Ur Leukocyte Esterase Urine RBC Urine WBC Ur Squamous Epith Cells Urine Bacteria Hyaline Casts Granular Casts Urine Yeast Stool Occult Blood Stl C. cayetanensis PCR Stool Rotavirus A PCR Stl Adenov F 40/41 PCR Stool Astrovirus (PCR) Stool Campylobacter PCR Stool Cryptosporidium PCR Stl Sh Tox Pr E STEC PCR Stool E coli O157 PCR Stl Enterotoxigenic E PCR Stool EPEC (PCR) Stool EAEC (PCR) Stl E. histolytica PCR Stool Giardia Lamblia PCR Stl P. shigelloides PCR Stool Salmonella PCR Stool Sapovirus (PCR) Stl Shigella/EIEC PCR St Y.enterocolitica PCR Stool Vibrio (PCR) Stl Vibrio cholerae PCR Stl Norovirus GI/GII PCR Valproic Acid C. difficile Tox B Gene C. difficile Toxin A&B C. difficile Interpret 12/08/23 12/08/2312/07/24 06:23 11:15 16:29 WBC RBC Hgb Hct MCV MCH MCHC RDW Plt Count MPV Immature Gran % (Auto) Neut % (Auto) Lymph % (Auto) [place] % (Auto) Eos % (Auto) Baso % (Auto) Lymph # (Auto) [place] # (Auto) Eos # (Auto) Baso # (Auto) Abs Immat Gran (auto) Absolute Neuts (auto) Absolute Nucleated RBC Nucleated RBC % (auto) Sodium Potassium Chloride Carbon Dioxide Anion Gap BUN Creatinine Estim Creat Clear Calc Estimated GFR POC Glucose 150 H 171 H 131 H Random Glucose Fasting Glucose Estimat Average Glucose Hemoglobin A1c % Calcium Total Bilirubin Direct Bilirubin AST ALT Alkaline Phosphatase Ammonia Total Protein Albumin Triglycerides Cholesterol LDL Cholesterol, Calc HDL Cholesterol Vitamin B12 Folate TSH Urine Color Urine Appearance Urine pH Ur Specific [place] Urine Protein Urine Glucose (UA) Urine Ketones Urine Blood Urine Nitrite Ur Leukocyte Esterase Urine RBC Urine WBC Ur Squamous Epith Cells Urine Bacteria Hyaline Casts Granular Casts Urine Yeast Stool Occult Blood Stl C. cayetanensis PCR Stool Rotavirus A PCR Stl Adenov F 40/41 PCR Stool Astrovirus (PCR) Stool Campylobacter PCR Stool Cryptosporidium PCR Stl Sh Tox Pr E STEC PCR Stool E coli O157 PCR Stl Enterotoxigenic E PCR Stool EPEC (PCR) Stool EAEC (PCR) Stl E. histolytica PCR Stool Giardia Lamblia PCR Stl P. shigelloides PCR Stool Salmonella PCR Stool Sapovirus (PCR) Stl Shigella/EIEC PCR St Y.enterocolitica PCR Stool Vibrio (PCR) Stl Vibrio cholerae PCR Stl Norovirus GI/GII PCR Valproic Acid C. difficile Tox B Gene C. difficile Toxin A&B C. difficile Interpret 12/08/23 12/08/23 12/09/23 19:07 20:11 06:32 WBC 3.3 L RBC 3.73 L Hgb 10.3 L Hct 32.0 L MCV 85.8 MCH 27.6 MCHC 32.2 RDW 14.2 Plt Count 99 L MPV 10.0 Immature Gran % (Auto) 0.3 Neut % (Auto) 53.2 Lymph % (Auto) 29.7 [place] % (Auto) 15.3 H Eos % (Auto) 1.2 Baso % (Auto) 0.3 Lymph # (Auto) 1.0 L [place] # (Auto) 0.5 Eos # (Auto) 0.0 Baso # (Auto) 0.0 Abs Immat Gran (auto) 0.01 Absolute Neuts (auto) 1.8 L Absolute Nucleated RBC 0.000 Nucleated RBC % (auto) 0.0 Sodium 142 Potassium 4.2 Chloride 104 Carbon Dioxide 30 H Anion Gap 12 BUN 27 H Creatinine 0.82 Estim Creat Clear Calc 40.4 Estimated GFR > 60 POC Glucose 116 H 145 H Random Glucose 114 Fasting Glucose Estimat Average Glucose Hemoglobin A1c % Calcium 10.5 H Total Bilirubin 0.6 Direct Bilirubin AST 25 ALT 14 Alkaline Phosphatase 90 Ammonia Total Protein 8.6 H Albumin 3.4 L Triglycerides Cholesterol LDL Cholesterol, Calc HDL Cholesterol Vitamin B12 Folate TSH Urine Color Urine Appearance Urine pH Ur Specific [place] Urine Protein Urine Glucose (UA) Urine Ketones Urine Blood Urine Nitrite Ur Leukocyte Esterase Urine RBC Urine WBC Ur Squamous Epith Cells Urine Bacteria Hyaline Casts Granular Casts Urine Yeast Stool Occult Blood Stl C. cayetanensis PCR Stool Rotavirus A PCR Stl Adenov F 40/ PCR Stool Astrovirus (PCR) Stool Campylobacter PCR Stool Cryptosporidium PCR Stl Sh Tox Pr E STEC PCR Stool E coli O157 PCR Stl Enterotoxigenic E PCR Stool EPEC (PCR) Stool EAEC (PCR) Stl E. histolytica PCR Stool Giardia Lamblia PCR Stl P. shigelloides PCR Stool Salmonella PCR Stool Sapovirus (PCR) Stl Shigella/EIEC PCR St Y.enterocolitica PCR Stool Vibrio (PCR) Stl Vibrio cholerae PCR Stl Norovirus GI/GII PCR Valproic Acid C. difficile Tox B Gene C. difficile Toxin A&B C. difficile Interpret 12/09/23 12/09/23 12/09/23 09:57 11:34 16:28 WBC 2.8 L RBC 3.68 L Hgb 10.1 L Hct 32.1 L MCV 87.2 MCH 27.4 MCHC 31.5 RDW 14.4 Plt Count 86 L MPV 9.6 Immature Gran % (Auto) 0.0 Neut % (Auto) 56.4 Lymph % (Auto) 29.1 [place] % (Auto) 12.4 H Eos % (Auto) 1.4 Baso % (Auto) 0.7 Lymph # (Auto) 0.8 L [place] # (Auto) 0.4 Eos # (Auto) 0.0 Baso # (Auto) 0.0 Abs Immat Gran (auto) 0.00 Absolute Neuts (auto) 1.6 L Absolute Nucleated RBC 0.000 Nucleated RBC % (auto) 0.0 Sodium 140 Potassium 4.7 Chloride 103 Carbon Dioxide 30 H Anion Gap 12 BUN 30 H Creatinine 0.99 Estim Creat Clear Calc 33.4 Estimated GFR 55 POC Glucose 201 H 143 H Random Glucose 279 H Fasting Glucose Estimat Average Glucose Hemoglobin A1c % Calcium 10.4 H Total Bilirubin 0.4 Direct Bilirubin 0.2 AST 30 ALT 16 Alkaline Phosphatase 96 Ammonia Total Protein 8.4 H Albumin 3.3 L Triglycerides Cholesterol LDL Cholesterol, Calc HDL Cholesterol Vitamin B12 Folate TSH Urine Color Urine Appearance Urine pH Ur Specific [place] Urine Protein Urine Glucose (UA) Urine Ketones Urine Blood Urine Nitrite Ur Leukocyte Esterase Urine RBC Urine WBC Ur Squamous Epith Cells Urine Bacteria Hyaline Casts Granular Casts Urine Yeast Stool Occult Blood Stl C. cayetanensis PCR Stool Rotavirus A PCR Stl Adenov F 40/41 PCR Stool Astrovirus (PCR) Stool Campylobacter PCR Stool Cryptosporidium PCR Stl Sh Tox Pr E STEC PCR Stool E coli O157 PCR Stl Enterotoxigenic E PCR Stool EPEC (PCR) Stool EAEC (PCR) Stl E. histolytica PCR Stool Giardia Lamblia PCR Stl P. shigelloides PCR Stool Salmonella PCR Stool Sapovirus (PCR) Stl Shigella/EIEC PCR St Y.enterocolitica PCR Stool Vibrio (PCR) Stl Vibrio cholerae PCR Stl Norovirus GI/GII PCR Valproic Acid C. difficile Tox B Gene C. difficile Toxin A&B C. difficile Interpret 12/09/23 12/10/23 12/10/23 19:52 06:12 08:25 WBC RBC Hgb Hct MCV MCH MCHC RDW Plt Count MPV Immature Gran % (Auto) Neut % (Auto) Lymph % (Auto) [place] % (Auto) Eos % (Auto) Baso % (Auto) Lymph # (Auto) [place] # (Auto) Eos # (Auto) Baso # (Auto) Abs Immat Gran (auto) Absolute Neuts (auto) Absolute Nucleated RBC Nucleated RBC % (auto) Sodium Potassium Chloride Carbon Dioxide Anion Gap BUN Creatinine Estim Creat Clear Calc Estimated GFR POC Glucose 205 H 124 H 146 H Random Glucose Fasting Glucose Estimat Average Glucose Hemoglobin A1c % Calcium Total Bilirubin Direct Bilirubin AST ALT Alkaline Phosphatase Ammonia Total Protein Albumin Triglycerides Cholesterol LDL Cholesterol, Calc HDL Cholesterol Vitamin B12 Folate TSH Urine Color Urine Appearance Urine pH Ur Specific [place] Urine Protein Urine Glucose (UA) Urine Ketones Urine Blood Urine Nitrite Ur Leukocyte Esterase Urine RBC Urine WBC Ur Squamous Epith Cells Urine Bacteria Hyaline Casts Granular Casts Urine Yeast Stool Occult Blood Stl C. cayetanensis PCR Stool Rotavirus A PCR Stl Adenov F PCR Stool Astrovirus (PCR) Stool Campylobacter PCR Stool Cryptosporidium PCR Stl Sh Tox Pr E STEC PCR Stool E coli O157 PCR Stl Enterotoxigenic E PCR Stool EPEC (PCR) Stool EAEC (PCR) Stl E. histolytica PCR Stool Giardia Lamblia PCR Stl P. shigelloides PCR Stool Salmonella PCR Stool Sapovirus (PCR) Stl Shigella/EIEC PCR St Y.enterocolitica PCR Stool Vibrio (PCR) Stl Vibrio cholerae PCR Stl Norovirus GI/GII PCR Valproic Acid C. difficile Tox B Gene C. difficile Toxin A&B C. difficile Interpret 12/10/23 12/10/23 12/10/23 11:53 16:42 20:01 WBC RBC Hgb Hct MCV MCH MCHC RDW Plt Count MPV Immature Gran % (Auto) Neut % (Auto) Lymph % (Auto) [place] % (Auto) Eos % (Auto) Baso % (Auto) Lymph # (Auto) [place] # (Auto) Eos # (Auto) Baso # (Auto) Abs Immat Gran (auto) Absolute Neuts (auto) Absolute Nucleated RBC Nucleated RBC % (auto) Sodium Potassium Chloride Carbon Dioxide Anion Gap BUN Creatinine Estim Creat Clear Calc Estimated GFR POC Glucose 185 H 164 H 139 H Random Glucose Fasting Glucose Estimat Average Glucose Hemoglobin A1c % Calcium Total Bilirubin Direct Bilirubin AST ALT Alkaline Phosphatase Ammonia Total Protein Albumin Triglycerides Cholesterol LDL Cholesterol, Calc HDL Cholesterol Vitamin B12 Folate TSH Urine Color Urine Appearance Urine pH Ur Specific [place] Urine Protein Urine Glucose (UA) Urine Ketones Urine Blood Urine Nitrite Ur Leukocyte Esterase Urine RBC Urine WBC Ur Squamous Epith Cells Urine Bacteria Hyaline Casts Granular Casts Urine Yeast Stool Occult Blood Stl C. cayetanensis PCR Stool Rotavirus A PCR Stl Adenov PCR Stool Astrovirus (PCR) Stool Campylobacter PCR Stool Cryptosporidium PCR Stl Sh Tox Pr E STEC PCR Stool E coli O157 PCR Stl Enterotoxigenic E PCR Stool EPEC (PCR) Stool EAEC (PCR) Stl E. histolytica PCR Stool Giardia Lamblia PCR Stl P. shigelloides PCR Stool Salmonella PCR Stool Sapovirus (PCR) Stl Shigella/EIEC PCR St Y.enterocolitica PCR Stool Vibrio (PCR) Stl Vibrio cholerae PCR Stl Norovirus GI/GII PCR Valproic Acid C. difficile Tox B Gene C. difficile Toxin A&B C. difficile Interpret 12/11/23 12/11/23 12/11/23 06:00 11:58 16:39 WBC RBC Hgb Hct MCV MCH MCHC RDW Plt Count MPV Immature Gran % (Auto) Neut % (Auto) Lymph % (Auto) [place] % (Auto) Eos % (Auto) Baso % (Auto) Lymph # (Auto) [place] # (Auto) Eos # (Auto) Baso # (Auto) Abs Immat Gran (auto) Absolute Neuts (auto) Absolute Nucleated RBC Nucleated RBC % (auto) Sodium Potassium Chloride Carbon Dioxide Anion Gap BUN Creatinine Estim Creat Clear Calc Estimated GFR POC Glucose 151 H 158 H 134 H Random Glucose Fasting Glucose Estimat Average Glucose Hemoglobin A1c % Calcium Total Bilirubin Direct Bilirubin AST ALT Alkaline Phosphatase Ammonia Total Protein Albumin Triglycerides Cholesterol LDL Cholesterol, Calc HDL Cholesterol Vitamin B12 Folate TSH Urine Color Urine Appearance Urine pH Ur Specific [place] Urine Protein Urine Glucose (UA) Urine Ketones Urine Blood Urine Nitrite Ur Leukocyte Esterase Urine RBC Urine WBC Ur Squamous Epith Cells Urine Bacteria Hyaline Casts Granular Casts Urine Yeast Stool Occult Blood Stl C. cayetanensis PCR Stool Rotavirus A PCR Stl Adenov F 40/41 PCR Stool Astrovirus (PCR) Stool Campylobacter PCR Stool Cryptosporidium PCR Stl Sh Tox Pr E STEC PCR Stool E coli O157 PCR Stl Enterotoxigenic E PCR Stool EPEC (PCR) Stool EAEC (PCR) Stl E. histolytica PCR Stool Giardia Lamblia PCR Stl P. shigelloides PCR Stool Salmonella PCR Stool Sapovirus (PCR) Stl Shigella/EIEC PCR St Y.enterocolitica PCR Stool Vibrio (PCR) Stl Vibrio cholerae PCR Stl Norovirus GI/GII PCR Valproic Acid C. difficile Tox B Gene C. difficile Toxin A&B C. difficile Interpret 12/11/23 12/12/23 12/12/23 19:50 06:41 11:33 WBC RBC Hgb Hct MCV MCH MCHC RDW Plt Count MPV Immature Gran % (Auto) Neut % (Auto) Lymph % (Auto) [place] % (Auto) Eos % (Auto) Baso % (Auto) Lymph # (Auto) [place] # (Auto) Eos # (Auto) Baso # (Auto) Abs Immat Gran (auto) Absolute Neuts (auto) Absolute Nucleated RBC Nucleated RBC % (auto) Sodium Potassium Chloride Carbon Dioxide Anion Gap BUN Creatinine Estim Creat Clear Calc Estimated GFR POC Glucose 136 H 149 H 230 H Random Glucose Fasting Glucose Estimat Average Glucose Hemoglobin A1c % Calcium Total Bilirubin Direct Bilirubin AST ALT Alkaline Phosphatase Ammonia Total Protein Albumin Triglycerides Cholesterol LDL Cholesterol, Calc HDL Cholesterol Vitamin B12 Folate TSH Urine Color Urine Appearance Urine pH Ur Specific [place] Urine Protein Urine Glucose (UA) Urine Ketones Urine Blood Urine Nitrite Ur Leukocyte Esterase Urine RBC Urine WBC Ur Squamous Epith Cells Urine Bacteria Hyaline Casts Granular Casts Urine Yeast Stool Occult Blood Stl C. cayetanensis PCR Stool Rotavirus A PCR Stl Adenov F PCR Stool Astrovirus (PCR) Stool Campylobacter PCR Stool Cryptosporidium PCR Stl Sh Tox Pr E STEC PCR Stool E coli O157 PCR Stl Enterotoxigenic E PCR Stool EPEC (PCR) Stool EAEC (PCR) Stl E. histolytica PCR Stool Giardia Lamblia PCR Stl P. shigelloides PCR Stool Salmonella PCR Stool Sapovirus (PCR) Stl Shigella/EIEC PCR St Y.enterocolitica PCR Stool Vibrio (PCR) Stl Vibrio cholerae PCR Stl Norovirus GI/GII PCR Valproic Acid C. difficile Tox B Gene C. difficile Toxin A&B C. difficile Interpret 12/12/23 12/12/23 12/13/23 16:28 20:34 06:19 WBC RBC Hgb Hct MCV MCH MCHC RDW Plt Count MPV Immature Gran % (Auto) Neut % (Auto) Lymph % (Auto) [place] % (Auto) Eos % (Auto) Baso % (Auto) Lymph # (Auto) [place] # (Auto) Eos # (Auto) Baso # (Auto) Abs Immat Gran (auto) Absolute Neuts (auto) Absolute Nucleated RBC Nucleated RBC % (auto) Sodium Potassium Chloride Carbon Dioxide Anion Gap BUN Creatinine Estim Creat Clear Calc Estimated GFR POC Glucose 256 H 194 H 165 H Random Glucose Fasting Glucose Estimat Average Glucose Hemoglobin A1c % Calcium Total Bilirubin Direct Bilirubin AST ALT Alkaline Phosphatase Ammonia Total Protein Albumin Triglycerides Cholesterol LDL Cholesterol, Calc HDL Cholesterol Vitamin B12 Folate TSH Urine Color Urine Appearance Urine pH Ur Specific [place] Urine Protein Urine Glucose (UA) Urine Ketones Urine Blood Urine Nitrite Ur Leukocyte Esterase Urine RBC Urine WBC Ur Squamous Epith Cells Urine Bacteria Hyaline Casts Granular Casts Urine Yeast Stool Occult Blood Stl C. cayetanensis PCR Stool Rotavirus A PCR Stl Adenov F PCR Stool Astrovirus (PCR) Stool Campylobacter PCR Stool Cryptosporidium PCR Stl Sh Tox Pr E STEC PCR Stool E coli O157 PCR Stl Enterotoxigenic E PCR Stool EPEC (PCR) Stool EAEC (PCR) Stl E. histolytica PCR Stool Giardia Lamblia PCR Stl P. shigelloides PCR Stool Salmonella PCR Stool Sapovirus (PCR) Stl Shigella/EIEC PCR St Y.enterocolitica PCR Stool Vibrio (PCR) Stl Vibrio cholerae PCR Stl Norovirus GI/GII PCR Valproic Acid C. difficile Tox B Gene C. difficile Toxin A&B C. difficile Interpret 12/13/23 12/13/23 12/13/23 11:02 16:26 19:57 WBC RBC Hgb Hct MCV MCH MCHC RDW Plt Count MPV Immature Gran % (Auto) Neut % (Auto) Lymph % (Auto) [place] % (Auto) Eos % (Auto) Baso % (Auto) Lymph # (Auto) [place] # (Auto) Eos # (Auto) Baso # (Auto) Abs Immat Gran (auto) Absolute Neuts (auto) Absolute Nucleated RBC Nucleated RBC % (auto) Sodium Potassium Chloride Carbon Dioxide Anion Gap BUN Creatinine Estim Creat Clear Calc Estimated GFR POC Glucose 248 H 247 H 179 H Random Glucose Fasting Glucose Estimat Average Glucose Hemoglobin A1c % Calcium Total Bilirubin Direct Bilirubin AST ALT Alkaline Phosphatase Ammonia Total Protein Albumin Triglycerides Cholesterol LDL Cholesterol, Calc HDL Cholesterol Vitamin B12 Folate TSH Urine Color Urine Appearance Urine pH Ur Specific [place] Urine Protein Urine Glucose (UA) Urine Ketones Urine Blood Urine Nitrite Ur Leukocyte Esterase Urine RBC Urine WBC Ur Squamous Epith Cells Urine Bacteria Hyaline Casts Granular Casts Urine Yeast Stool Occult Blood Stl C. cayetanensis PCR Stool Rotavirus A PCR Stl Adenov F PCR Stool Astrovirus (PCR) Stool Campylobacter PCR Stool Cryptosporidium PCR Stl Sh Tox Pr E STEC PCR Stool E coli O157 PCR Stl Enterotoxigenic E PCR Stool EPEC (PCR) Stool EAEC (PCR) Stl E. histolytica PCR Stool Giardia Lamblia PCR Stl P. shigelloides PCR Stool Salmonella PCR Stool Sapovirus (PCR) Stl Shigella/EIEC PCR St Y.enterocolitica PCR Stool Vibrio (PCR) Stl Vibrio cholerae PCR Stl Norovirus GI/GII PCR Valproic Acid C. difficile Tox B Gene C. difficile Toxin A&B C. difficile Interpret 12/14/23 12/14/23 12/14/23 06:32 07:37 11:48 WBC RBC Hgb Hct MCV MCH MCHC RDW Plt Count MPV Immature Gran % (Auto) Neut % (Auto) Lymph % (Auto) [place] % (Auto) Eos % (Auto) Baso % (Auto) Lymph # (Auto) [place] # (Auto) Eos # (Auto) Baso # (Auto) Abs Immat Gran (auto) Absolute Neuts (auto) Absolute Nucleated RBC Nucleated RBC % (auto) Sodium 139 Potassium 4.2 Chloride 103 Carbon Dioxide 28 Anion Gap 12 BUN 25 H Creatinine 0.84 Estim Creat Clear Calc 39.4 Estimated GFR > 60 POC Glucose 120 H 158 H Random Glucose Fasting Glucose 135 H Estimat Average Glucose Hemoglobin A1c % Calcium 10.0 Total Bilirubin 0.6 Direct Bilirubin AST 43 H ALT 23 Alkaline Phosphatase 101 Ammonia Total Protein 8.0 Albumin 3.0 L Triglycerides Cholesterol LDL Cholesterol, Calc HDL Cholesterol Vitamin B12 Folate TSH Urine Color Urine Appearance Urine pH Ur Specific [place] Urine Protein Urine Glucose (UA) Urine Ketones Urine Blood Urine Nitrite Ur Leukocyte Esterase Urine RBC Urine WBC Ur Squamous Epith Cells Urine Bacteria Hyaline Casts Granular Casts Urine Yeast Stool Occult Blood Stl C. cayetanensis PCR Stool Rotavirus A PCR Stl Adenov F 40/41 PCR Stool Astrovirus (PCR) Stool Campylobacter PCR Stool Cryptosporidium PCR Stl Sh Tox Pr E STEC PCR Stool E coli O157 PCR Stl Enterotoxigenic E PCR Stool EPEC (PCR) Stool EAEC (PCR) Stl E. histolytica PCR Stool Giardia Lamblia PCR Stl P. shigelloides PCR Stool Salmonella PCR Stool Sapovirus (PCR) Stl Shigella/EIEC PCR St Y.enterocolitica PCR Stool Vibrio (PCR) Stl Vibrio cholerae PCR Stl Norovirus GI/GII PCR Valproic Acid C. difficile Tox B Gene C. difficile Toxin A&B C. difficile Interpret 12/14/23 12/14/23 12/15/23 16:05 19:57 06:34 WBC RBC Hgb Hct MCV MCH MCHC RDW Plt Count MPV Immature Gran % (Auto) Neut % (Auto) Lymph % (Auto) [place] % (Auto) Eos % (Auto) Baso % (Auto) Lymph # (Auto) [place] # (Auto) Eos # (Auto) Baso # (Auto) Abs Immat Gran (auto) Absolute Neuts (auto) Absolute Nucleated RBC Nucleated RBC % (auto) Sodium Potassium Chloride Carbon Dioxide Anion Gap BUN Creatinine Estim Creat Clear Calc Estimated GFR POC Glucose 128 H 248 H 92 Random Glucose Fasting Glucose Estimat Average Glucose Hemoglobin A1c % Calcium Total Bilirubin Direct Bilirubin AST ALT Alkaline Phosphatase Ammonia Total Protein Albumin Triglycerides Cholesterol LDL Cholesterol, Calc HDL Cholesterol Vitamin B12 Folate TSH Urine Color Urine Appearance Urine pH Ur Specific [place] Urine Protein Urine Glucose (UA) Urine Ketones Urine Blood Urine Nitrite Ur Leukocyte Esterase Urine RBC Urine WBC Ur Squamous Epith Cells Urine Bacteria Hyaline Casts Granular Casts Urine Yeast Stool Occult Blood Stl C. cayetanensis PCR Stool Rotavirus A PCR Stl Adenov F 40/41 PCR Stool Astrovirus (PCR) Stool Campylobacter PCR Stool Cryptosporidium PCR Stl Sh Tox Pr E STEC PCR Stool E coli O157 PCR Stl Enterotoxigenic E PCR Stool EPEC (PCR) Stool EAEC (PCR) Stl E. histolytica PCR Stool Giardia Lamblia PCR Stl P. shigelloides PCR Stool Salmonella PCR Stool Sapovirus (PCR) Stl Shigella/EIEC PCR St Y.enterocolitica PCR Stool Vibrio (PCR) Stl Vibrio cholerae PCR Stl Norovirus GI/GII PCR Valproic Acid C. difficile Tox B Gene C. difficile Toxin A&B C. difficile Interpret 12/15/23 12/15/23 12/15/23 11:20 16:06 20:24 WBC RBC Hgb Hct MCV MCH MCHC RDW Plt Count MPV Immature Gran % (Auto) Neut % (Auto) Lymph % (Auto) [place] % (Auto) Eos % (Auto) Baso % (Auto) Lymph # (Auto) [place] # (Auto) Eos # (Auto) Baso # (Auto) Abs Immat Gran (auto) Absolute Neuts (auto) Absolute Nucleated RBC Nucleated RBC % (auto) Sodium Potassium Chloride Carbon Dioxide Anion Gap BUN Creatinine Estim Creat Clear Calc Estimated GFR POC Glucose 295 H 142 H 230 H Random Glucose Fasting Glucose Estimat Average Glucose Hemoglobin A1c % Calcium Total Bilirubin Direct Bilirubin AST ALT Alkaline Phosphatase Ammonia Total Protein Albumin Triglycerides Cholesterol LDL Cholesterol, Calc HDL Cholesterol Vitamin B12 Folate TSH Urine Color Urine Appearance Urine pH Ur Specific [place] Urine Protein Urine Glucose (UA) Urine Ketones Urine Blood Urine Nitrite Ur Leukocyte Esterase Urine RBC Urine WBC Ur Squamous Epith Cells Urine Bacteria Hyaline Casts Granular Casts Urine Yeast Stool Occult Blood Stl C. cayetanensis PCR Stool Rotavirus A PCR Stl Adenov F PCR Stool Astrovirus (PCR) Stool Campylobacter PCR Stool Cryptosporidium PCR Stl Sh Tox Pr E STEC PCR Stool E coli O157 PCR Stl Enterotoxigenic E PCR Stool EPEC (PCR) Stool EAEC (PCR) Stl E. histolytica PCR Stool Giardia Lamblia PCR Stl P. shigelloides PCR Stool Salmonella PCR Stool Sapovirus (PCR) Stl Shigella/EIEC PCR St Y.enterocolitica PCR Stool Vibrio (PCR) Stl Vibrio cholerae PCR Stl Norovirus GI/GII PCR Valproic Acid C. difficile Tox B Gene C. difficile Toxin A&B C. difficile Interpret 12/16/23 12/16/23 12/16/23 06:30 11:13 16:19 WBC RBC Hgb Hct MCV MCH MCHC RDW Plt Count MPV Immature Gran % (Auto) Neut % (Auto) Lymph % (Auto) [place] % (Auto) Eos % (Auto) Baso % (Auto) Lymph # (Auto) [place] # (Auto) Eos # (Auto) Baso # (Auto) Abs Immat Gran (auto) Absolute Neuts (auto) Absolute Nucleated RBC Nucleated RBC % (auto) Sodium Potassium Chloride Carbon Dioxide Anion Gap BUN Creatinine Estim Creat Clear Calc Estimated GFR POC Glucose 90 136 H 186 H Random Glucose Fasting Glucose Estimat Average Glucose Hemoglobin A1c % Calcium Total Bilirubin Direct Bilirubin AST ALT Alkaline Phosphatase Ammonia Total Protein Albumin Triglycerides Cholesterol LDL Cholesterol, Calc HDL Cholesterol Vitamin B12 Folate TSH Urine Color Urine Appearance Urine pH Ur Specific [place] Urine Protein Urine Glucose (UA) Urine Ketones Urine Blood Urine Nitrite Ur Leukocyte Esterase Urine RBC Urine WBC Ur Squamous Epith Cells Urine Bacteria Hyaline Casts Granular Casts Urine Yeast Stool Occult Blood Stl C. cayetanensis PCR Stool Rotavirus A PCR Stl Adenov F PCR Stool Astrovirus (PCR) Stool Campylobacter PCR Stool Cryptosporidium PCR Stl Sh Tox Pr E STEC PCR Stool E coli O157 PCR Stl Enterotoxigenic E PCR Stool EPEC (PCR) Stool EAEC (PCR) Stl E. histolytica PCR Stool Giardia Lamblia PCR Stl P. shigelloides PCR Stool Salmonella PCR Stool Sapovirus (PCR) Stl Shigella/EIEC PCR St Y.enterocolitica PCR Stool Vibrio (PCR) Stl Vibrio cholerae PCR Stl Norovirus GI/GII PCR Valproic Acid C. difficile Tox B Gene C. difficile Toxin A&B C. difficile Interpret 12/16/23 12/17/23 12/17/23 20:22 06:40 08:06 WBC RBC Hgb Hct MCV MCH MCHC RDW Plt Count MPV Immature Gran % (Auto) Neut % (Auto) Lymph % (Auto) [place] % (Auto) Eos % (Auto) Baso % (Auto) Lymph # (Auto) [place] # (Auto) Eos # (Auto) Baso # (Auto) Abs Immat Gran (auto) Absolute Neuts (auto) Absolute Nucleated RBC Nucleated RBC % (auto) Sodium Potassium Chloride Carbon Dioxide Anion Gap BUN Creatinine Estim Creat Clear Calc Estimated GFR POC Glucose 196 H 139 H Random Glucose Fasting Glucose Estimat Average Glucose Hemoglobin A1c % Calcium Total Bilirubin Direct Bilirubin AST ALT Alkaline Phosphatase Ammonia Total Protein Albumin Triglycerides Cholesterol LDL Cholesterol, Calc HDL Cholesterol Vitamin B12 Folate TSH Urine Color Urine Appearance Urine pH Ur Specific [place] Urine Protein Urine Glucose (UA) Urine Ketones Urine Blood Urine Nitrite Ur Leukocyte Esterase Urine RBC Urine WBC Ur Squamous Epith Cells Urine Bacteria Hyaline Casts Granular Casts Urine Yeast Stool Occult Blood Stl C. cayetanensis PCR Stool Rotavirus A PCR Stl Adenov F 40/41 PCR Stool Astrovirus (PCR) Stool Campylobacter PCR Stool Cryptosporidium PCR Stl Sh Tox Pr E STEC PCR Stool E coli O157 PCR Stl Enterotoxigenic E PCR Stool EPEC (PCR) Stool EAEC (PCR) Stl E. histolytica PCR Stool Giardia Lamblia PCR Stl P. shigelloides PCR Stool Salmonella PCR Stool Sapovirus (PCR) Stl Shigella/EIEC PCR St Y.enterocolitica PCR Stool Vibrio (PCR) Stl Vibrio cholerae PCR Stl Norovirus GI/GII PCR Valproic Acid 24.9 L C. difficile Tox B Gene C. difficile Toxin A&B C. difficile Interpret 12/17/23 12/17/23 12/18/23 11:34 19:59 06:40 WBC RBC Hgb Hct MCV MCH MCHC RDW Plt Count MPV Immature Gran % (Auto) Neut % (Auto) Lymph % (Auto) [place] % (Auto) Eos % (Auto) Baso % (Auto) Lymph # (Auto) [place] # (Auto) Eos # (Auto) Baso # (Auto) Abs Immat Gran (auto) Absolute Neuts (auto) Absolute Nucleated RBC Nucleated RBC % (auto) Sodium Potassium Chloride Carbon Dioxide Anion Gap BUN Creatinine Estim Creat Clear Calc Estimated GFR POC Glucose 194 H 207 H 146 H Random Glucose Fasting Glucose Estimat Average Glucose Hemoglobin A1c % Calcium Total Bilirubin Direct Bilirubin AST ALT Alkaline Phosphatase Ammonia Total Protein Albumin Triglycerides Cholesterol LDL Cholesterol, Calc HDL Cholesterol Vitamin B12 Folate TSH Urine Color Urine Appearance Urine pH Ur Specific [place] Urine Protein Urine Glucose (UA) Urine Ketones Urine Blood Urine Nitrite Ur Leukocyte Esterase Urine RBC Urine WBC Ur Squamous Epith Cells Urine Bacteria Hyaline Casts Granular Casts Urine Yeast Stool Occult Blood Stl C. cayetanensis PCR Stool Rotavirus A PCR Stl Adenov F 40/41 PCR Stool Astrovirus (PCR) Stool Campylobacter PCR Stool Cryptosporidium PCR Stl Sh Tox Pr E STEC PCR Stool E coli O157 PCR Stl Enterotoxigenic E PCR Stool EPEC (PCR) Stool EAEC (PCR) Stl E. histolytica PCR Stool Giardia Lamblia PCR Stl P. shigelloides PCR Stool Salmonella PCR Stool Sapovirus (PCR) Stl Shigella/EIEC PCR St Y.enterocolitica PCR Stool Vibrio (PCR) Stl Vibrio cholerae PCR Stl Norovirus GI/GII PCR Valproic Acid C. difficile Tox B Gene C. difficile Toxin A&B C. difficile Interpret 12/18/23 12/18/23 12/18/23 11:31 16:32 19:57 WBC RBC Hgb Hct MCV MCH MCHC RDW Plt Count MPV Immature Gran % (Auto) Neut % (Auto) Lymph % (Auto) [place] % (Auto) Eos % (Auto) Baso % (Auto) Lymph # (Auto) [place] # (Auto) Eos # (Auto) Baso # (Auto) Abs Immat Gran (auto) Absolute Neuts (auto) Absolute Nucleated RBC Nucleated RBC % (auto) Sodium Potassium Chloride Carbon Dioxide Anion Gap BUN Creatinine Estim Creat Clear Calc Estimated GFR POC Glucose 149 H 126 H 134 H Random Glucose Fasting Glucose Estimat Average Glucose Hemoglobin A1c % Calcium Total Bilirubin Direct Bilirubin AST ALT Alkaline Phosphatase Ammonia Total Protein Albumin Triglycerides Cholesterol LDL Cholesterol, Calc HDL Cholesterol Vitamin B12 Folate TSH Urine Color Urine Appearance Urine pH Ur Specific [place] Urine Protein Urine Glucose (UA) Urine Ketones Urine Blood Urine Nitrite Ur Leukocyte Esterase Urine RBC Urine WBC Ur Squamous Epith Cells Urine Bacteria Hyaline Casts Granular Casts Urine Yeast Stool Occult Blood Stl C. cayetanensis PCR Stool Rotavirus A PCR Stl Adenov F 40/41 PCR Stool Astrovirus (PCR) Stool Campylobacter PCR Stool Cryptosporidium PCR Stl Sh Tox Pr E STEC PCR Stool E coli O157 PCR Stl Enterotoxigenic E PCR Stool EPEC (PCR) Stool EAEC (PCR) Stl E. histolytica PCR Stool Giardia Lamblia PCR Stl P. shigelloides PCR Stool Salmonella PCR Stool Sapovirus (PCR) Stl Shigella/EIEC PCR St Y.enterocolitica PCR Stool Vibrio (PCR) Stl Vibrio cholerae PCR Stl Norovirus GI/GII PCR Valproic Acid C. difficile Tox B Gene C. difficile Toxin A&B C. difficile Interpret Assessment and Plan Final Anesthetic Review Family History of Problems with Anesthesia: No History of Problems with Anesthesia: No
[2023-12-19 06:17] LABS: Glucose, Whole Blood 123 mg/dL (60-115)
[2023-12-19] MEDS: Omeprazole 20 MG CAPSULE.DR PO (06:17)
[2023-12-19 09:01] VITALS: BP 130/62; PULSE 66; RESP 17; O2SAT 99
[2023-12-19] MEDS: Furosemide 20 MG TABLET PO (09:30)
[2023-12-19] MEDS: amLODIPine Besylate 5 MG TABLET PO (09:31)
[2023-12-19] MEDS: Aspirin 81 MG TAB.CHEW PO (09:31)
[2023-12-19] MEDS: Losartan Potassium 50 MG TABLET 100 MG PO (09:31)
[2023-12-19] MEDS: Thiamine HCL 100 MG TABLET PO (09:31)
[2023-12-19] MEDS: Magnesium Oxide 400 MG TABLET PO (09:32)
[2023-12-19 11:08] LABS: Glucose, Whole Blood 116 mg/dL (60-115)
--- NOTE | 2023-12-19 12:36 | P.PNPSI_ITS ---
Subjective Subjective Date of Service: 12/19/23 Reason For Visit: Major depressive disorder, severe, recurrent Subjective Notes: Conditional Voluntary Healthcare Proxy: Yes Interim History: The nursing staff reported the patient slept well, she had her ECT last night. She has been pleasant, no confusion. On interview the patient remains hypoactive on bed most of the time. Mental Status Exam Mental Status Exam Patient Appearance: Appropriate Patient Orientation: Person and Situation Level of Consciousness: Awake and Appropriate Patient Behavior: Guarded and Passive Mood Description: Withdrawn Affect Description: Constricted Patient Cognition Impaired: Yes Ability to Follow Directions: Good Speech Pattern: Clear Hallucinations: None Delusions: Paranoid Ideation and Ideas of Reference Thought Process: Distracted and Slowed Thinking Thought Content: positive for [place] and positive for Poverty of Content Judgement: Poor Diagnostics Vital Signs (24Hr): Vital Signs - 24 hr 12/18/23 20:30 12/18/23 20:45 12/18/23 20:59 Temperature 97.4 F 97.4 F 97.2 F Pulse Rate 70 70 65 Respiratory Rate 18 18 16 Blood Pressure 179/88 H 179/88 H 118/61 Pulse Oximetry 97 97 96 Oxygen Delivery Method Room Air Room Air Oxygen Flow Rate 12/18/23 22:22 12/18/23 22:27 12/18/23 22:32 Temperature 97.3 F Pulse Rate 95 95 84 Respiratory Rate 16 16 16 Blood Pressure 162/72 H 141/68 H 134/70 Pulse Oximetry 100 99 100 Oxygen Delivery Method Nasal Cannula with ETCO2 Nasal Cannula with ETCO2 Nasal Cannula with ETCO2 Oxygen Flow Rate 2 2 2 12/18/23 22:37 12/18/23 22:52 12/18/23 23:35 Temperature 97.3 F 97 F Pulse Rate 89 80 87 Respiratory Rate 16 16 16 Blood Pressure 138/63 136/73 122/68 Pulse Oximetry 100 100 96 Oxygen Delivery Method Room Air Room Air Room Air Oxygen Flow Rate 12/19/23 09:01 Temperature Pulse Rate 66 Respiratory Rate 17 Blood Pressure 130/62 Pulse Oximetry 99 Oxygen Delivery Method Room Air Oxygen Flow Rate BMI result Body Mass Index 20.1 Labs 12/09/23 09:57 12/14/23 07:37 Labs: Laboratory Results - last 48 hr 12/17/23 12/18/23 12/18/23 19:59 06:40 11:31 POC Glucose 207 H 146 H 149 H 12/18/23 12/18/23 12/19/23 16:32 19:57 06:12 POC Glucose 126 H 134 H 123 H 12/19/23 11:04 POC Glucose 116 H Imaging Radiology Impressions: ITS Impressions Chest X-Ray 12/03/23 12:20 IMPRESSION: 1. Chronic interstitial prominence without focal consolidative airspace opacity. 2. Densities along the left lower chest which may represent pleural calcifications versus soft tissue calcifications. Correlation with lateral radiograph could help further evaluate. Electronically signed by: Viral Smallwood MD 12/03/2023 01:33 PM EDT RP Head CT 12/03/23 13:17 IMPRESSION: 1. No acute intracranial abnormalities. No intracranial hemorrhage or mass effect. 2. Moderate small vessel ischemic changes in the hemispheric white matter. 3. 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 4. Age advanced cerebral and cerebellar involutional changes with prominent ventricles. Cannot definitively exclude a component of communicating hydrocephalus given the appearance. Head CT 12/10/23 21:05 IMPRESSION: No acute intracranial abnormality including hemorrhage, mass effect, hydrocephalus, or acute territorial edematous infarction. Electronically signed by: Juan Alberto Murdock MD 12/10/2023 10:07 PM EDT RP Medications Medications Current Medications Acetaminophen (Acetaminophen 325 Mg Tablet) 650 mg PO Q6H PRN PRN Reason: Headache/Pain Mild Scale (1-3) Al Hydroxide/Mg Hydroxide (Magnesium Hydrox/Alum Hydrox 30 Ml Oral.Susp) 30 ml PO Q6H PRN PRN Reason: Heartburn/Nausea Amlodipine Besylate (Amlodipine Besylate 5 Mg Tablet) 5 mg PO DAILY [facility]; Protocol Last Admin: 12/19/23 09:31 Dose: 5 mg Anastrozole (Anastrozole 1 Mg Tablet) 1 mg PO DAILY [facility] Last Admin: 12/19/23 09:37 Dose: Not Given Aspirin (Aspirin 81 Mg Tab.Chew) 81 mg PO DAILY [facility] Last Admin: 12/19/23 09:31 Dose: 81 mg Atorvastatin Calcium (Atorvastatin Calcium 10 Mg Tablet) 10 mg PO BEDTIME [facility] Last Admin: 12/19/23 00:05 Dose: Not Given Ferrous Sulfate (Ferrous Sulfate 324 Mg Tablet.) 324 mg PO DAILY [facility] Last Admin: 12/19/23 09:37 Dose: Not Given Furosemide (Furosemide 20 Mg Tablet) 20 mg PO DAILY [facility]; Protocol Last Admin: 12/19/23 09:30 Dose: 20 mg Glucose (Glucose Gel 15 Gm Gel..Gram.) 15 gm PO Q15M PRN; Protocol PRN Reason: per Hypoglycemia Standing Ord. Dextrose (D10) 250 mls @ 750 mls/hr IV Q15M PRN; Protocol PRN Reason: per Hypoglycemia Standing Ord. Insulin Glargine (Insulin Glargine,Hum.Rec.Anlog 100 Unit/Ml 10 Ml Vial) 6 unit SUBCUT BEDTIME [facility] Last Admin: 12/19/23 00:13 Dose: Not Given Insulin Human Lispro (Insulin Lispro 100 Unit/Ml 3 Ml Vial) 0 unit SUBCUT QIDACHS [facility]; Protocol Last Admin: 12/19/23 11:42 Dose: Not Given Loratadine (Loratadine 10 Mg Tablet) 10 mg PO BEDTIME [facility] Last Admin: 12/19/23 00:05 Dose: Not Given Losartan Potassium (Losartan Potassium 50 Mg Tablet) 100 mg PO DAILY [facility]; Protocol Last Admin: 12/19/23 09:31 Dose: 100 mg Magnesium Hydroxide (Milk Of Magnesia 30 Ml Oral.Susp) 30 ml PO DAILY PRN PRN Reason: Constipation Magnesium Oxide (Magnesium Oxide 400 Mg Tablet) 400 mg PO BID [facility] Last Admin: 12/19/23 09:32 Dose: 400 mg Mirtazapine (Mirtazapine 30 Mg Tablet) 30 mg PO BEDTIME [facility] Last Admin: 12/19/23 00:06 Dose: Not Given Multivitamins/Vitamin C (Multivitamin Tablet) 1 tab PO DAILY [facility] Last Admin: 12/19/23 09:38 Dose: Not Given Nicotine Polacrilex (Nicotine Polacrilex 2 Mg Gum) 4 mg BUCCAL Q2H PRN PRN Reason: Nicotine Cravings Omeprazole (Omeprazole 20 Mg Capsule.Dr) 20 mg PO DAILY@0630 [facility] Last Admin: 12/19/23 06:17 Dose: 20 mg Risperidone (Risperidone 0.5 Mg Tablet) 0.5 mg PO BID PRN PRN Reason: Restlessness Sodium Chloride (0.9 % Sodium Chloride Flush 10 Ml Syringe) 5 ml IVFLUSH QSHIFT [facility] Last Admin: 12/19/23 10:30 Dose: Not Given Thiamine HCl (Thiamine Hcl 100 Mg Tablet) 100 mg PO DAILY [facility] Last Admin: 12/19/23 09:31 Dose: 100 mg Trazodone HCl (Trazodone Hcl 50 Mg Tablet) 50 mg PO BEDTIME PRN PRN Reason: Insomnia Last Admin: 12/08/23 22:06 Dose: 50 mg Valproic Acid (Valproic Acid (As Sodium Salt) 250 Mg/5 Ml Solution) 250 mg PO BID [facility] Last Admin: 12/19/23 09:39 Dose: Not Given Allergies Allergies Allergy/AdvReac Type Severity Reaction Status Date / Time atropine Allergy Unknown Shortness Verified 12/02/23 23:30 of Breath enoxaparin [From Lovenox] Allergy Unknown Unknown Verified 12/02/23 23:30 penicillin V Allergy Unknown Unknown Verified 03/19/23 07:30 pseudoephedrine [Aprodine] Allergy Unknown Unknown Verified 03/19/23 07:30 triprolidine [Aprodine] Allergy Unknown Unknown Verified 03/19/23 07:30 Assessment & Plan Assessment & Plan (1) Major depressive disorder with psychotic features: Status: Acute Code(s): F32.3 - Major depressive disorder, single episode, severe with psychotic features Assessment and Plan: 12/15/23: Continue tx plan Plan 73-year-old female with history of insulin-dependent type 2 diabetes, hypertension, hyperlipidemia, history of C diff colitis, hypothyroidism, heart failure preserved ejection fraction, cirrhosis admitted to [facility] for catatonia with consult placed to hospitalist service for ect risk stratification. Pt with class II risk on revised cardiac risk index given history of CHF though is clinically euvolemic on exam. Lungs are clear. Has known but no murmurs heard on exam. Would recommend checking EKG to assess for ECT prolongation prior to ECT treatment. Unable to assess ROS. Based on RCRI and known history of ECT with good tolerance there does not appear to be any acute medical contraindication that should preclude patient from undergoing ect. Appropriate anesthesia precautions should be taken given known history of BASIL. Pt also noted to have equal but fixed pupils on exam which was not noted on initial H&P. She is catatonic and unable to participate in further CN exam or provide history. Did have Head CT on 12/02 negative for acute intracranial abnormalities which showed moderate small-vessel ischemic changes in hemispheric white matter numerous old lacunar infarcts as well as age advanced cerebral and cerebellar involutional changes with prominent ventricles. At this time, recommend repeating head CT and can consider Neurology evaluation at discretion of psychiatrist Will continue following for results Plan 1. Continue with same treatment. 2. Continue with ECT as scheduled. Reason for continued inpatient stay Substantial Risk for: inability to function, rapid decompensation and med/psych decompensation Time Spent With Patient Time: Total time managing care of this patient today __20__ minutes.
[2023-12-19 16:09] LABS: Glucose, Whole Blood 121 mg/dL (60-115)
[2023-12-19 19:40] LABS: Glucose, Whole Blood 275 mg/dL (60-115)
[2023-12-19 20:32] VITALS: BP 106/52; PULSE 61; RESP 16; TEMP 36.4; O2SAT 98
[2023-12-19] MEDS: Insulin Glargine,Hum.rec.anlog 100 UNIT/ML 10 ML VIAL 6 UNIT SUBCUT (20:35)
[2023-12-20 05:35] VITALS: BP 107/54; PULSE 59; RESP 16; TEMP 36.6
[2023-12-20 06:10] LABS: Glucose, Whole Blood 111 mg/dL (60-115)
[2023-12-20 06:30] VITALS: BP 124/50; PULSE 63; RESP 16; TEMP 37.3; O2SAT 98
--- NOTE | 2023-12-20 06:54 | PC.NURSE ---
ECT canceled due to pt needing stress test and echo before continue with ECT
[2023-12-20 10:10] VITALS: BP 114/60; PULSE 61; RESP 15; TEMP 36.8; O2SAT 96
--- NOTE | 2023-12-20 13:19 | P.PNPSI_ITS ---
Subjective Subjective Date of Service: 12/20/23 Reason For Visit: Major depressive disorder, severe, recurrent Subjective Notes: Conditional Voluntary Healthcare Proxy: Yes Interim History: The nursing staff reported the patient had been hypoactive most of the time in her bed. Today she was declined to have ECT since she did not have cardiology clearance. I called cardiology and at this point the patient is safe to have ECT. Echocardio was ordered. On interview the patient remains nearly catatonic as usual. Mental Status Exam Mental Status Exam Patient Appearance: Appropriate Patient Orientation: Person Level of Consciousness: Awake Patient Behavior: Passive Mood Description: Calm Affect Description: Blunted Patient Cognition Impaired: Yes Ability to Follow Directions: Fair Speech Pattern: Clear Hallucinations: None Delusions: Paranoid Ideation Thought Process: Distracted and Slowed Thinking Thought Content: positive for [place] and positive for Poverty of Content Judgement: Poor Diagnostics Vital Signs (24Hr): Vital Signs - 24 hr 12/19/23 20:32 12/20/23 05:35 12/20/23 06:30 Temperature 97.5 F 98 F 99.2 F Pulse Rate 61 59 63 Respiratory Rate 16 16 16 Blood Pressure 106/52 L 107/54 L 124/50 L Pulse Oximetry 98 98 Oxygen Delivery Method Room Air Room Air 12/20/23 10:10 Temperature 98.2 F Pulse Rate 61 Respiratory Rate 15 Blood Pressure 114/60 Pulse Oximetry 96 Oxygen Delivery Method Room Air BMI result Body Mass Index 20.1 Labs 12/09/23 09:57 12/14/23 07:37 Labs: Laboratory Results - last 48 hr 12/18/23 12/18/23 12/19/23 16:32 19:57 06:12 POC Glucose 126 H 134 H 123 H 12/19/23 12/19/23 12/19/23 11:04 16:05 19:35 POC Glucose 116 H 121 H 275 H 12/20/23 06:05 POC Glucose 111 Imaging Radiology Impressions: ITS Impressions Chest X-Ray 12/03/23 12:20 IMPRESSION: 1. Chronic interstitial prominence without focal consolidative airspace opacity. 2. Densities along the left lower chest which may represent pleural calcifications versus soft tissue calcifications. Correlation with lateral radiograph could help further evaluate. Electronically signed by: Viral Smallwood MD 12/03/2023 01:33 PM EDT RP Head CT 12/03/23 13:17 IMPRESSION: 1. No acute intracranial abnormalities. No intracranial hemorrhage or mass effect. 2. Moderate small vessel ischemic changes in the hemispheric white matter. 3. 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 4. Age advanced cerebral and cerebellar involutional changes with prominent ventricles. Cannot definitively exclude a component of communicating hydrocephalus given the appearance. Head CT 12/10/23 21:05 IMPRESSION: No acute intracranial abnormality including hemorrhage, mass effect, hydrocephalus, or acute territorial edematous infarction. Electronically signed by: Juan Alberto Murdock MD 12/10/2023 10:07 PM EDT RP Medications Medications Current Medications Acetaminophen (Acetaminophen 325 Mg Tablet) 650 mg PO Q6H PRN PRN Reason: Headache/Pain Mild Scale (1-3) Al Hydroxide/Mg Hydroxide (Magnesium Hydrox/Alum Hydrox 30 Ml Oral.Susp) 30 ml PO Q6H PRN PRN Reason: Heartburn/Nausea Amlodipine Besylate (Amlodipine Besylate 5 Mg Tablet) 5 mg PO DAILY [facility]; Protocol Last Admin: 12/20/23 10:30 Dose: Not Given Anastrozole (Anastrozole 1 Mg Tablet) 1 mg PO DAILY [facility] Last Admin: 12/20/23 10:30 Dose: Not Given Aspirin (Aspirin 81 Mg Tab.Chew) 81 mg PO DAILY [facility] Last Admin: 12/20/23 10:31 Dose: Not Given Atorvastatin Calcium (Atorvastatin Calcium 10 Mg Tablet) 10 mg PO BEDTIME [facility] Last Admin: 12/19/23 20:42 Dose: Not Given Ferrous Sulfate (Ferrous Sulfate 324 Mg Tablet.Dr) 324 mg PO DAILY [facility] Last Admin: 12/20/23 10:31 Dose: Not Given Furosemide (Furosemide 20 Mg Tablet) 20 mg PO DAILY [facility]; Protocol Last Admin: 12/20/23 10:31 Dose: Not Given Glucose (Glucose Gel 15 Gm Gel..Gram.) 15 gm PO Q15M PRN; Protocol PRN Reason: per Hypoglycemia Standing Ord. Dextrose (D10) 250 mls @ 750 mls/hr IV Q15M PRN; Protocol PRN Reason: per Hypoglycemia Standing Ord. Insulin Glargine (Insulin Glargine,Hum.Rec.Anlog 100 Unit/Ml 10 Ml Vial) 6 unit SUBCUT BEDTIME [facility] Last Admin: 12/19/23 20:35 Dose: 6 unit Insulin Human Lispro (Insulin Lispro 100 Unit/Ml 3 Ml Vial) 0 unit SUBCUT QIDACHS [facility]; Protocol Last Admin: 12/20/23 10:19 Dose: Not Given Loratadine (Loratadine 10 Mg Tablet) 10 mg PO BEDTIME [facility] Last Admin: 12/19/23 20:42 Dose: Not Given Losartan Potassium (Losartan Potassium 50 Mg Tablet) 100 mg PO DAILY [facility]; Protocol Last Admin: 12/20/23 10:31 Dose: Not Given Magnesium Hydroxide (Milk Of Magnesia 30 Ml Oral.Susp) 30 ml PO DAILY PRN PRN Reason: Constipation Magnesium Oxide (Magnesium Oxide 400 Mg Tablet) 400 mg PO BID [facility] Last Admin: 12/20/23 10:32 Dose: Not Given Mirtazapine (Mirtazapine 30 Mg Tablet) 30 mg PO BEDTIME [facility] Last Admin: 12/19/23 20:42 Dose: Not Given Multivitamins/Vitamin C (Multivitamin Tablet) 1 tab PO DAILY [facility] Last Admin: 12/20/23 10:32 Dose: Not Given Nicotine Polacrilex (Nicotine Polacrilex 2 Mg Gum) 4 mg BUCCAL Q2H PRN PRN Reason: Nicotine Cravings Omeprazole (Omeprazole 20 Mg Capsule.Dr) 20 mg PO DAILY@0630 [facility] Last Admin: 12/20/23 05:41 Dose: Not Given Risperidone (Risperidone 0.5 Mg Tablet) 0.5 mg PO BID PRN PRN Reason: Restlessness Thiamine HCl (Thiamine Hcl 100 Mg Tablet) 100 mg PO DAILY [facility] Last Admin: 12/20/23 10:32 Dose: Not Given Trazodone HCl (Trazodone Hcl 50 Mg Tablet) 50 mg PO BEDTIME PRN PRN Reason: Insomnia Last Admin: 12/08/23 22:06 Dose: 50 mg Valproic Acid (Valproic Acid (As Sodium Salt) 250 Mg/5 Ml Solution) 250 mg PO BID [facility] Last Admin: 12/20/23 10:33 Dose: Not Given Allergies Allergies Allergy/AdvReac Type Severity Reaction Status Date / Time atropine Allergy Unknown Shortness Verified 12/02/23 23:30 of Breath enoxaparin [From Lovenox] Allergy Unknown Unknown Verified 12/02/23 23:30 penicillin V Allergy Unknown Unknown Verified 03/19/23 07:30 pseudoephedrine [Aprodine] Allergy Unknown Unknown Verified 03/19/23 07:30 triprolidine [Aprodine] Allergy Unknown Unknown Verified 03/19/23 07:30 Assessment & Plan Assessment & Plan (1) Major depressive disorder with psychotic features: Status: Acute Code(s): F32.3 - Major depressive disorder, single episode, severe with psychotic features Assessment and Plan: 12/15/23: Continue tx plan Plan 73-year-old female with history of insulin-dependent type 2 diabetes, hypertension, hyperlipidemia, history of C diff colitis, hypothyroidism, heart failure preserved ejection fraction, cirrhosis admitted to [facility] for catatonia with consult placed to hospitalist service for ect risk stratification. Pt with class II risk on revised cardiac risk index given history of CHF though is clinically euvolemic on exam. Lungs are clear. Has known but no murmurs heard on exam. Would recommend checking EKG to assess for ECT prolongation prior to ECT treatment. Unable to assess ROS. Based on RCRI and known history of ECT with good tolerance there does not appear to be any acute medical contraindication that should preclude patient from undergoing ect. Appropriate anesthesia precautions should be taken given known history of BASIL. Pt also noted to have equal but fixed pupils on exam which was not noted on initial H&P. She is catatonic and unable to participate in further CN exam or provide history. Did have Head CT on 12/02 negative for acute intracranial abnormalities which showed moderate small-vessel ischemic changes in hemispheric white matter numerous old lacunar infarcts as well as age advanced cerebral and cerebellar involutional changes with prominent ventricles. At this time, recommend repeating head CT and can consider Neurology evaluation at discretion of psychiatrist Will continue following for results Plan 1. Continue with same treatment. 2. Continue with ECT as scheduled. 3. Cardiology has cleared her. Reason for continued inpatient stay Substantial Risk for: inability to function, rapid decompensation and med/psych decompensation Time Spent With Patient Time: Total time managing care of this patient today __20__ minutes.
--- NOTE | 2023-12-20 13:23 | CA_ITS ---
Transthoracic Echocardiogram Patient (Last, First, Middle): Delaney Zhou A Gender: Female Date of : 1950 Age: 73 Procedure Date: 12/20/2023 Procedure Type: Transthoracic Echocardiogram Location: S3E Height: 149.86 cm Weight: 44.91 kg BSA: 1.37 m2 Heart Rate: 66 bpm BP: 114 / 60 mmHg Bioinformatician: SATNAM Referring MD: Zen Meeks MD Symptoms: aortic stenosis, pre-op Study Quality: Technically Difficult/Unable to Tolerate ECG Rhythm: Sinus Conclusions: - The left ventricular systolic function is normal. The visually estimated ejection fraction is between 60-65%. - No obvious valvular pathology seen on this study. - ([id number]) Findings Left Ventricle Normal left ventricular cavity size. There is normal left ventricular wall thickness. The left ventricular systolic function is normal. The visually estimated ejection fraction is between 60-65%. There is no evidence of regional wall motion abnormalities. Diastolic function is normal for age. Right Ventricle Normal right ventricular cavity size and systolic function. Atria Both atria are normal in size. Aortic Valve There is a normal trileaflet aortic valve. There is no aortic valve stenosis. There is no aortic valve regurgitation. Mitral Valve The mitral valve appears normal. There is no mitral valve regurgitation. There is no mitral valve stenosis. Pulmonic Valve The pulmonic valve is likely normal. Tricuspid Valve There is no tricuspid valve regurgitation. Tricuspid regurgitation envelope is inadequate for calculation of right ventricular systolic pressure. Great Vessels The asc aorta is normal in size. Venous The inferior vena cava was not well visualized. Pericardium/Pleural There is no evidence of pericardial effusion. Prior Study Comparison No significant change compared to prior study dated: 04/28/2021. Recommendations, Care & Conclusions No obvious valvular pathology seen on this study. Measurements 2D Linear Measurements IVSd: 0.90 0.6-0.9/0.6-1.0 cm LVIDd: 4.14 3.9-5.3/4.2-5.9 cm LVIDd Index: 3.02 2.4-3.2/2.2-3.1 cm/m2 LVIDs: 2.92 2.0-3.6 cm LVPWd: 0.68 0.7-1.1 cm LA Diam: 2.20 2.7-3.8/3.0-4.0 cm LAIDs Index: 1.61 1.5-2.3 cm/m2 LV Mass: 120.63 67-162/88-224 g LV Mass Index: 88.05 43-95/49-115 g/m2 LVOT Diam: 1.90 3.0+(-)1.3 cm Mitral Valve MV Pk E: 0.89 MV PK A: 0.90 MV Decel Time: 257.00 E/A: 1.00 E'Lateral: 7.83 E'Medial: 5.98 E/E' Med: 14.90 E/E' Lat: 11.40 PHT: 75.00 MVA PHT: 2.93 Decel [place]: 3.47 Aortic Valve AoV Pk Antony: 1.49 AoV Mn Antony: 0.99 AoV VTI: 0.29 AoV Pk Grad: 9.00 Aov Mn Grad: 4.00 YVES Cont.VTI: 2.16 LVOT LVOT Pk [place]y: 0.91 LVOT Mn Antony: 0.72 LVOT VTI: 0.22 LVOT Pk Grad: 3.00 LVOT Mn Grad: 2.00 LVOT Diam: 1.90 LVOT Area: 2.84 Diastolic Function MV Pk E: 0.89 MV Pk A: 0.90 E/A: 1.00 E'Medial: 5.98 E/E' Med: 14.90 E' Laterial: 7.83 E/E' Lat: 11.40 Right Ventricle TAPSE (mm): 17.90 TVS' Antony: 8.92 Great Vessels Aorta Sinus of Valsalva: 2.90 2.0-3.5 cm Ao Asc: 2.70 2.1-3.4 cm Pulmonary Valve PV Pk Antony: 1.00 Peak PV Grad: 4.00 Updated in Other Vendor System with Status of Final Zen Meeks MD electronically signed on 12/21/2023 12:04:18 PM with status of Final
--- NOTE | 2023-12-20 14:15 | PM.PNCARD ---
Subjective Subjective Date of Service: 12/20/23 Interval history: Patient was seen and examined. Tried to discuss with the it network architect. She is lying in bed and answering some questions. When questioned, she stated that she is in [facility]. Mentioned some abdominal pain. Denies any chest pain. However, questionable reliability. Also discussed with her RN. Otherwise, patient is known to me from clinic. Last seen in November of 2022. At that time, she had denied any symptoms like angina or shortness of breath or anything cardiac related. Review of Systems Review of Systems Not obtainable. Physical Exam Vital Signs: Last Vital Signs Temp 98.2 F 12/20/23 10:10 Pulse 61 12/20/23 10:10 Resp 15 12/20/23 10:10 BP 114/60 12/20/23 10:10 Pulse Ox 96 12/20/23 10:10 O2 Del Method Room Air 12/20/23 10:10 O2 Flow Rate 2 12/18/23 22:32 BMI result Body Mass Index 20.1 Const General: no acute distress Orientation/consciousness: No patient oriented x3 HEENT Other: Unremarkable Head: Yes normal to inspection Neck Neck: Yes normal visual inspection Chest Chest palpation & inspection: normal inspection of the chest Resp Auscultation: clear to auscultation bilaterally Cardio Palpation: normal PMI Heart sounds: S1 normal heart sound present, S2 normal heart sound present, no gallops, Murmur heart sound present systolic II/, at the left sternal border and at the right sternal border and no rubs GI Palpation (GI): Soft to palpation Back/Spine/Pelvis Other: unremarkable Skin General skin exam: no rashes or lesions noted Neuro General: No patient oriented x3 Extrem General: Yes normal to inspection Psych Mental Status: mental status grossly abnormal Objective Labs and Meds 12/09/23 09:57 12/14/23 07:37 Lab results: Laboratory Results - last 24 hr 12/19/23 12/19/23 12/20/23 16:05 19:35 06:05 POC Glucose 121 H 275 H 111 Progress Note: A&P Assessment and plan (1) Preoperative cardiovascular examination: Status: Acute Plan Recent EKG with underlying sinus rhythm at 61/Min; no significant ST-T changes and otherwise unremarkable. Normal NE and corrected QT. Repeat echocardiogram is pending. In a prior study, hyperdynamic LVEF but otherwise unremarkable. Discussed with Dr. Yung. According to him, patient is in a catatonic state and absolutely needs the ECT therapy to get any form of improvement. We discussed this by tiger text as well as in person. Also discussed with Dr. Busch from anesthesia who has concerns about bradycardia that happened in a prior ECT session. Overall, immediate ECT postprocedure arrhythmias are related to parasympathetic/sympathetic response after the procedure. Unfortunately, preoperative risk stratification cannot clearly assess the likelihood of this happening, as it is not dependent on traditional cardiac risk factors. Also these can happen in spite of normal cardiac testing and not entirely predictable. In this specific case, as it seems that the catatonia is a major issue and that she had a good psychiatry response in the past, will need to weigh the risks and benefits of leaving her in a catatonic state versus taking the risk of postprocedure arrhythmias from ECT. Hence may lean towards pursuing ECT and dealing with the arrhythmic issues as they arise. Will need to clearly inform the family prior to the procedure so they fully understand the rationale as to why this is being done. As long as they agree, she will be able to proceed. If any unexpected findings on the echocardiogram, we will make an addendum to this note. Total time spent including review of data, counseling, documentation, discussion with other consultants-44 minutes. Time Spent With Patient Time: Total time managing care of this patient today ____ minutes. Procedures Date of Service Date of Service: 12/20/23
[2023-12-20 16:36] LABS: Glucose, Whole Blood 187 mg/dL (60-115)
[2023-12-20 16:36] LABS: Glucose, Whole Blood 192 mg/dL (60-115)
[2023-12-20 20:00] VITALS: BP 119/56; PULSE 60; RESP 16; TEMP 36.6; O2SAT 96
[2023-12-20] MEDS: Mirtazapine 30 MG TABLET PO (21:07)
[2023-12-20] MEDS: Magnesium Oxide 400 MG TABLET PO (21:07)
[2023-12-20] MEDS: Atorvastatin Calcium 10 MG TABLET PO (21:07)
[2023-12-20] MEDS: Insulin Glargine,Hum.rec.anlog 100 UNIT/ML 10 ML VIAL 6 UNIT SUBCUT (21:08)
[2023-12-20] MEDS: Loratadine 10 MG TABLET PO (21:08)
[2023-12-20] MEDS: Insulin Lispro 100 UNIT/ML 3 ML VIAL SUBCUT (21:09)
[2023-12-21 00:08] LABS: Glucose, Whole Blood 253 mg/dL (60-115)
[2023-12-21 06:48] LABS: Glucose, Whole Blood 131 mg/dL (60-115)
[2023-12-21 08:00] VITALS: BP 129/61; PULSE 57; RESP 16; TEMP 36; O2SAT 95
--- NOTE | 2023-12-21 08:52 | P.PNPSI_ITS ---
Subjective Subjective Date of Service: 12/21/23 Reason For Visit: Major depressive disorder, severe, recurrent Subjective Notes: Conditional Voluntary Healthcare Proxy: Yes Interim History: The nursing staff reported the patient was brighter last night she took medications at night but not in the morning. On interview the patient is on her bed minimally responsive. She is scheduled for ECT tomorrow. Mental Status Exam Mental Status Exam Patient Appearance: Appropriate and Unkempt Patient Orientation: Person Level of Consciousness: Awake Patient Behavior: Guarded and Passive Mood Description: Withdrawn Affect Description: Blunted Patient Cognition Impaired: Yes Ability to Follow Directions: Good Speech Pattern: Clear Hallucinations: None Delusions: Paranoid Ideation and Ideas of Reference Thought Process: Distracted and Slowed Thinking Thought Content: positive for [place] and positive for Poverty of Content Judgement: Poor Diagnostics Vital Signs (24Hr): Vital Signs - 24 hr 12/20/23 10:10 12/20/23 20:00 12/21/23 08:00 Temperature 98.2 F 97.8 F 96.8 F Pulse Rate 61 60 57 Respiratory Rate 15 16 16 Blood Pressure 114/60 119/56 L 129/61 Pulse Oximetry 96 96 95 Oxygen Delivery Method Room Air Room Air Room Air BMI result Body Mass Index 20.1 Labs 12/09/23 09:57 12/14/23 07:37 Labs: Laboratory Results - last 48 hr 12/19/23 12/19/23 12/19/23 11:04 16:05 19:35 POC Glucose 116 H 121 H 275 H 12/20/23 12/20/23 12/20/23 06:05 11:29 16:28 POC Glucose 111 192 H 187 H 12/20/23 12/21/23 21:00 06:42 POC Glucose 253 H 131 H Imaging Radiology Impressions: ITS Impressions Chest X-Ray 12/03/23 12:20 IMPRESSION: 1. Chronic interstitial prominence without focal consolidative airspace opacity. 2. Densities along the left lower chest which may represent pleural calcifications versus soft tissue calcifications. Correlation with lateral radiograph could help further evaluate. Electronically signed by: Viral Smallwood MD 12/03/2023 01:[address] 12/03/23 13:17 IMPRESSION: 1. No acute intracranial abnormalities. No intracranial hemorrhage or mass effect. 2. Moderate small vessel ischemic changes in the hemispheric white matter. 3. 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 4. Age advanced cerebral and cerebellar involutional changes with prominent ventricles. Cannot definitively exclude a component of communicating hydrocephalus given the appearance. Head CT 12/10/23 21:05 IMPRESSION: No acute intracranial abnormality including hemorrhage, mass effect, hydrocephalus, or acute territorial edematous infarction. Electronically signed by: Juan Alberto Murdock MD 12/10/2023 10:07 PM EDT Medications Medications Current Medications Acetaminophen (Acetaminophen 325 Mg Tablet) 650 mg PO Q6H PRN PRN Reason: Headache/Pain Mild Scale (1-3) Al Hydroxide/Mg Hydroxide (Magnesium Hydrox/Alum Hydrox 30 Ml Oral.Susp) 30 ml PO Q6H PRN PRN Reason: Heartburn/Nausea Amlodipine Besylate (Amlodipine Besylate 5 Mg Tablet) 5 mg PO DAILY [facility]; Protocol Last Admin: 12/20/23 10:30 Dose: Not Given Anastrozole (Anastrozole 1 Mg Tablet) 1 mg PO DAILY [facility] Last Admin: 12/20/23 10:30 Dose: Not Given Aspirin (Aspirin 81 Mg Tab.Chew) 81 mg PO DAILY [facility] Last Admin: 12/20/23 10:31 Dose: Not Given Atorvastatin Calcium (Atorvastatin Calcium 10 Mg Tablet) 10 mg PO BEDTIME [facility] Last Admin: 12/20/23 21:07 Dose: 10 mg Ferrous Sulfate (Ferrous Sulfate 324 Mg Tablet.Dr) 324 mg PO DAILY [facility] Last Admin: 12/20/23 10:31 Dose: Not Given Furosemide (Furosemide 20 Mg Tablet) 20 mg PO DAILY [facility]; Protocol Last Admin: 12/20/23 10:31 Dose: Not Given Glucose (Glucose Gel 15 Gm Gel..Gram.) 15 gm PO Q15M PRN; Protocol PRN Reason: per Hypoglycemia Standing Ord. Dextrose (D10) 250 mls @ 750 mls/hr IV Q15M PRN; Protocol PRN Reason: per Hypoglycemia Standing Ord. Insulin Glargine (Insulin Glargine,Hum.Rec.Anlog 100 Unit/Ml 10 Ml Vial) 6 unit SUBCUT BEDTIME [facility] Last Admin: 12/20/23 21:08 Dose: 6 unit Insulin Human Lispro (Insulin Lispro 100 Unit/Ml 3 Ml Vial) 0 unit SUBCUT QIDACHS [facility]; Protocol Last Admin: 12/21/23 08:32 Dose: Not Given Loratadine (Loratadine 10 Mg Tablet) 10 mg PO BEDTIME [facility] Last Admin: 12/20/23 21:08 Dose: 10 mg Losartan Potassium (Losartan Potassium 50 Mg Tablet) 100 mg PO DAILY [facility]; Protocol Last Admin: 12/20/23 10:31 Dose: Not Given Magnesium Hydroxide (Milk Of Magnesia 30 Ml Oral.Susp) 30 ml PO DAILY PRN PRN Reason: Constipation Magnesium Oxide (Magnesium Oxide 400 Mg Tablet) 400 mg PO BID [facility] Last Admin: 12/20/23 21:07 Dose: 400 mg Mirtazapine (Mirtazapine 30 Mg Tablet) 30 mg PO BEDTIME [facility] Last Admin: 12/20/23 21:07 Dose: 30 mg Multivitamins/Vitamin C (Multivitamin Tablet) 1 tab PO DAILY [facility] Last Admin: 12/20/23 10:32 Dose: Not Given Nicotine Polacrilex (Nicotine Polacrilex 2 Mg Gum) 4 mg BUCCAL Q2H PRN PRN Reason: Nicotine Cravings Omeprazole (Omeprazole 20 Mg Capsule.Dr) 20 mg PO DAILY@0630 [facility] Last Admin: 12/21/23 06:01 Dose: Not Given Risperidone (Risperidone 0.5 Mg Tablet) 0.5 mg PO BID PRN PRN Reason: Restlessness Thiamine HCl (Thiamine Hcl 100 Mg Tablet) 100 mg PO DAILY [facility] Last Admin: 12/20/23 10:32 Dose: Not Given Trazodone HCl (Trazodone Hcl 50 Mg Tablet) 50 mg PO BEDTIME PRN PRN Reason: Insomnia Last Admin: 12/08/23 22:06 Dose: 50 mg Valproic Acid (Valproic Acid (As Sodium Salt) 250 Mg/5 Ml Solution) 250 mg PO BID [facility] Last Admin: 12/20/23 21:08 Dose: 250 mg Allergies Allergies Allergy/AdvReac Type Severity Reaction Status Date / Time atropine Allergy Unknown Shortness Verified 12/02/23 23:30 of Breath enoxaparin [From Lovenox] Allergy Unknown Unknown Verified 12/02/23 23:30 penicillin V Allergy Unknown Unknown Verified 03/19/23 07:30 pseudoephedrine [Aprodine] Allergy Unknown Unknown Verified 03/19/23 07:30 triprolidine [Aprodine] Allergy Unknown Unknown Verified 03/19/23 07:30 Assessment & Plan Assessment & Plan (1) Major depressive disorder with psychotic features: Status: Acute Code(s): F32.3 - Major depressive disorder, single episode, severe with psychotic features Assessment and Plan: 12/15/23: Continue tx plan Plan 73-year-old female with history of insulin-dependent type 2 diabetes, hypertension, hyperlipidemia, history of C diff colitis, hypothyroidism, heart failure preserved ejection fraction, cirrhosis admitted to [facility] for catatonia with consult placed to hospitalist service for ect risk stratification. Pt with class II risk on revised cardiac risk index given history of CHF though is clinically euvolemic on exam. Lungs are clear. Has known but no murmurs heard on exam. Would recommend checking EKG to assess for ECT prolongation prior to ECT treatment. Unable to assess ROS. Based on RCRI and known history of ECT with good tolerance there does not appear to be any acute medical contraindication that should preclude patient from undergoing ect. Appropriate anesthesia precautions should be taken given known history of BASIL. Pt also noted to have equal but fixed pupils on exam which was not noted on initial H&P. She is catatonic and unable to participate in further CN exam or provide history. Did have Head CT on 12/02 negative for acute intracranial abnormalities which showed moderate small-vessel ischemic changes in hemispheric white matter numerous old lacunar infarcts as well as age advanced cerebral and cerebellar involutional changes with prominent ventricles. At this time, recommend repeating head CT and can consider Neurology evaluation at discretion of psychiatrist Will continue following for results Plan 1. Continue with same treatment. 2. Continue with ECT as scheduled. 3. Cardiology has cleared her. Reason for continued inpatient stay Substantial Risk for: inability to function, rapid decompensation and med/psych decompensation Time Spent With Patient Time: Total time managing care of this patient today __20__ minutes.
[2023-12-21 10:01] VITALS: BP 129/61
[2023-12-21 10:02] VITALS: BP 129/61
[2023-12-21 10:11] VITALS: BP 129/61
[2023-12-21 11:21] LABS: Glucose, Whole Blood 234 mg/dL (60-115)
[2023-12-21] MEDS: Insulin Lispro 100 UNIT/ML 3 ML VIAL SUBCUT ×2 (11:51→16:56)
[2023-12-21 16:10] LABS: Glucose, Whole Blood 155 mg/dL (60-115)
[2023-12-21 19:59] LABS: Glucose, Whole Blood 209 mg/dL (60-115)
[2023-12-21 20:00] VITALS: BP 104/56; PULSE 61; RESP 16; TEMP 36.4; O2SAT 97
[2023-12-22 06:50] LABS: Glucose, Whole Blood 131 mg/dL (60-115)
[2023-12-22 08:26] VITALS: BP 109/59; PULSE 64; RESP 15; TEMP 36.9; O2SAT 98
[2023-12-22] MEDS: Aspirin 81 MG TAB.CHEW PO (08:31)
[2023-12-22] MEDS: Anastrozole 1 MG TABLET PO (08:35)
--- NOTE | 2023-12-22 09:42 | P.PNPSI_ITS ---
Subjective Subjective Date of Service: 12/22/23 Reason For Visit: Major depressive disorder, severe, recurrent Subjective Notes: Conditional Voluntary Healthcare Proxy: Yes Interim History: The nursing staff reported the patient took liquid Depakote but not all her other meds. Her fasting blood sugars have been okay her Meek should be 100 cc of urine overnight. On interview the patient remains dysphoric, blunted scheduled for ECT for tomorrow Mental Status Exam Mental Status Exam Patient Appearance: Appropriate Patient Orientation: Person Level of Consciousness: Drowsy Patient Behavior: Guarded and Passive Mood Description: Withdrawn Affect Description: Blunted Patient Cognition Impaired: Yes Ability to Follow Directions: Fair Speech Pattern: Impoverished Hallucinations: None Delusions: Ideas of Reference Thought Process: Distracted and Slowed Thinking Thought Content: positive for [place] and positive for Poverty of Content Judgement: Poor Diagnostics Vital Signs (24Hr): Vital Signs - 24 hr 12/21/23 10:01 12/21/23 10:02 12/21/23 10:11 Temperature Pulse Rate Respiratory Rate Blood Pressure 129/61 129/61 129/61 Pulse Oximetry Oxygen Delivery Method 12/21/23 20:00 12/22/23 08:26 Temperature 97.6 F 98.5 F Pulse Rate 61 64 Respiratory Rate 16 15 Blood Pressure 104/56 L 109/59 L Pulse Oximetry 97 98 Oxygen Delivery Method Room Air Room Air BMI result Body Mass Index 20.1 Labs 12/09/23 09:57 12/14/23 07:37 Labs: Laboratory Results - last 48 hr 12/20/23 12/20/23 12/20/23 11:29 16:28 21:00 POC Glucose 192 H 187 H 253 H 12/21/23 12/21/23 12/21/23 06:42 11:17 16:05 POC Glucose 131 H 234 H 155 H 12/21/23 12/22/23 19:55 06:35 POC Glucose 209 H 131 H Imaging Radiology Impressions: ITS Impressions Chest X-Ray 12/03/23 12:20 IMPRESSION: 1. Chronic interstitial prominence without focal consolidative airspace opacity. 2. Densities along the left lower chest which may represent pleural calcifications versus soft tissue calcifications. Correlation with lateral radiograph could help further evaluate. Electronically signed by: Viral Smallwood MD 12/03/2023 01:[address] 12/03/23 13:17 IMPRESSION: 1. No acute intracranial abnormalities. No intracranial hemorrhage or mass effect. 2. Moderate small vessel ischemic changes in the hemispheric white matter. 3. 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 4. Age advanced cerebral and cerebellar involutional changes with prominent ventricles. Cannot definitively exclude a component of communicating hydrocephalus given the appearance. Head CT 12/10/23 21:05 IMPRESSION: No acute intracranial abnormality including hemorrhage, mass effect, hydrocephalus, or acute territorial edematous infarction. Electronically signed by: Juan Alberto Murdock MD 12/10/2023 10:07 PM EDT Medications Medications Current Medications Acetaminophen (Acetaminophen 325 Mg Tablet) 650 mg PO Q6H PRN PRN Reason: Headache/Pain Mild Scale (1-3) Al Hydroxide/Mg Hydroxide (Magnesium Hydrox/Alum Hydrox 30 Ml Oral.Susp) 30 ml PO Q6H PRN PRN Reason: Heartburn/Nausea Amlodipine Besylate (Amlodipine Besylate 5 Mg Tablet) 5 mg PO DAILY [facility]; Protocol Last Admin: 12/22/23 08:35 Dose: Not Given Anastrozole (Anastrozole 1 Mg Tablet) 1 mg PO DAILY [facility] Last Admin: 12/22/23 08:35 Dose: 1 mg Aspirin (Aspirin 81 Mg Tab.Chew) 81 mg PO DAILY [facility] Last Admin: 12/22/23 08:31 Dose: 81 mg Atorvastatin Calcium (Atorvastatin Calcium 10 Mg Tablet) 10 mg PO BEDTIME [facility] Last Admin: 12/21/23 21:02 Dose: Not Given Ferrous Sulfate (Ferrous Sulfate 324 Mg Tablet.) 324 mg PO DAILY [facility] Last Admin: 12/22/23 08:35 Dose: Not Given Furosemide (Furosemide 20 Mg Tablet) 20 mg PO DAILY [facility]; Protocol Last Admin: 12/22/23 08:35 Dose: Not Given Glucose (Glucose Gel 15 Gm Gel..Gram.) 15 gm PO Q15M PRN; Protocol PRN Reason: per Hypoglycemia Standing Ord. Dextrose (D10) 250 mls @ 750 mls/hr IV Q15M PRN; Protocol PRN Reason: per Hypoglycemia Standing Ord. Insulin Glargine (Insulin Glargine,Hum.Rec.Anlog 100 Unit/Ml 10 Ml Vial) 6 unit SUBCUT BEDTIME [facility] Last Admin: 12/21/23 21:02 Dose: Not Given Insulin Human Lispro (Insulin Lispro 100 Unit/Ml 3 Ml Vial) 0 unit SUBCUT QIDACHS [facility]; Protocol Last Admin: 12/22/23 08:34 Dose: Not Given Loratadine (Loratadine 10 Mg Tablet) 10 mg PO BEDTIME [facility] Last Admin: 12/21/23 21:02 Dose: Not Given Losartan Potassium (Losartan Potassium 50 Mg Tablet) 100 mg PO DAILY [facility]; Protocol Last Admin: 12/22/23 08:35 Dose: Not Given Magnesium Hydroxide (Milk Of Magnesia 30 Ml Oral.Susp) 30 ml PO DAILY PRN PRN Reason: Constipation Magnesium Oxide (Magnesium Oxide 400 Mg Tablet) 400 mg PO BID [facility] Last Admin: 12/22/23 08:36 Dose: Not Given Mirtazapine (Mirtazapine 30 Mg Tablet) 30 mg PO BEDTIME [facility] Last Admin: 12/21/23 21:03 Dose: Not Given Multivitamins/Vitamin C (Multivitamin Tablet) 1 tab PO DAILY [facility] Last Admin: 12/22/23 08:36 Dose: Not Given Nicotine Polacrilex (Nicotine Polacrilex 2 Mg Gum) 4 mg BUCCAL Q2H PRN PRN Reason: Nicotine Cravings Omeprazole (Omeprazole 20 Mg Capsule.Dr) 20 mg PO DAILY@0630 [facility] Last Admin: 12/22/23 06:08 Dose: Not Given Risperidone (Risperidone 0.5 Mg Tablet) 0.5 mg PO BID PRN PRN Reason: Restlessness Thiamine HCl (Thiamine Hcl 100 Mg Tablet) 100 mg PO DAILY [facility] Last Admin: 12/22/23 08:36 Dose: Not Given Trazodone HCl (Trazodone Hcl 50 Mg Tablet) 50 mg PO BEDTIME PRN PRN Reason: Insomnia Last Admin: 12/08/23 22:06 Dose: 50 mg Valproic Acid (Valproic Acid (As Sodium Salt) 250 Mg/5 Ml Solution) 250 mg PO BID [facility] Last Admin: 12/22/23 08:28 Dose: 250 mg Allergies Allergies Allergy/AdvReac Type Severity Reaction Status Date / Time atropine Allergy Unknown Shortness Verified 12/02/23 23:30 of Breath enoxaparin [From Lovenox] Allergy Unknown Unknown Verified 12/02/23 23:30 penicillin V Allergy Unknown Unknown Verified 03/19/23 07:30 pseudoephedrine [Aprodine] Allergy Unknown Unknown Verified 03/19/23 07:30 triprolidine [Aprodine] Allergy Unknown Unknown Verified 03/19/23 07:30 Assessment & Plan Assessment & Plan (1) Major depressive disorder with psychotic features: Status: Acute Code(s): F32.3 - Major depressive disorder, single episode, severe with psychotic features Assessment and Plan: 12/15/23: Continue tx plan Plan 73-year-old female with history of insulin-dependent type 2 diabetes, hypertension, hyperlipidemia, history of C diff colitis, hypothyroidism, heart failure preserved ejection fraction, cirrhosis admitted to [facility] for catatonia with consult placed to hospitalist service for ect risk stratification. Pt with class II risk on revised cardiac risk index given history of CHF though is clinically euvolemic on exam. Lungs are clear. Has known but no murmurs heard on exam. Would recommend checking EKG to assess for ECT prolongation prior to ECT treatment. Unable to assess ROS. Based on RCRI and known history of ECT with good tolerance there does not appear to be any acute medical contraindication that should preclude patient from undergoing ect. Appropriate anesthesia precautions should be taken given known history of BASIL. Pt also noted to have equal but fixed pupils on exam which was not noted on initial H&P. She is catatonic and unable to participate in further CN exam or provide history. Did have Head CT on 12/02 negative for acute intracranial abnormalities which showed moderate small-vessel ischemic changes in hemispheric white matter numerous old lacunar infarcts as well as age advanced cerebral and cerebellar involutional changes with prominent ventricles. At this time, recommend repeating head CT and can consider Neurology evaluation at discretion of psychiatrist Will continue following for results Plan 1. Continue with same treatment. 2. Continue with ECT as scheduled. 3. Cardiology has cleared her. Reason for continued inpatient stay Substantial Risk for: inability to function, rapid decompensation and med/psych decompensation Time Spent With Patient Time: Total time managing care of this patient today __20__ minutes.
[2023-12-22 11:33] LABS: Glucose, Whole Blood 224 mg/dL (60-115)
[2023-12-22 16:35] LABS: Glucose, Whole Blood 194 mg/dL (60-115)
[2023-12-22] MEDS: Insulin Lispro 100 UNIT/ML 3 ML VIAL SUBCUT ×2 (17:06→21:19)
[2023-12-22 20:00] VITALS: BP 117/56; PULSE 70; RESP 18; TEMP 36.7; O2SAT 96
[2023-12-22 20:04] LABS: Glucose, Whole Blood 255 mg/dL (60-115)
[2023-12-22] MEDS: Insulin Glargine,Hum.rec.anlog 100 UNIT/ML 10 ML VIAL 6 UNIT SUBCUT (21:18)
[2023-12-22] MEDS: Loratadine 10 MG TABLET PO (21:20)
[2023-12-22] MEDS: Mirtazapine 30 MG TABLET PO (21:20)
[2023-12-23] VITALS (11 sets, daily range): BP systolic 100–154; BP diastolic 47–66; PULSE 53–110; RESP 16–20; TEMP 36.1–36.6; O2SAT 96–100
[2023-12-23 05:29] LABS: Glucose, Whole Blood 121 mg/dL (60-115)
--- NOTE | 2023-12-23 06:58 | P.CONAN_ITS ---
[facility] Active Problems Active Problems: All Active Problems Hx of Clostridium difficile infection (Acute) Preoperative cardiovascular examination (Acute) Catatonia (Acute) Fixed constriction of pupil (Acute) Major depressive disorder with psychotic features (Acute) Dark stools (Acute) Routine medical exam (Acute) Essential hypertension (Acute) Type 2 diabetes mellitus with unspecified complications (Acute) Aortic valve sclerosis (Acute) Murmur (Acute) CKD (chronic kidney disease) stage 3, GFR 30-59 ml/min (Acute) Vitamin D deficiency (Acute) HLD (hyperlipidemia) (Acute) HTN (hypertension) (Acute) T2DM (type 2 diabetes mellitus) (Acute) Past Medical History Medical History Cirrhosis Hypothyroidism Breast cancer Hx of Clostridium difficile infection (HFpEF) heart failure with preserved ejection fraction Murmur CKD (chronic kidney disease) stage 3, GFR 30-59 ml/min Vitamin D deficiency HLD (hyperlipidemia) HTN (hypertension) T2DM (type 2 diabetes mellitus) Family History Family History Father Alzheimer disease Stroke Mother Breast cancer Family history of problems with anesthesia: No Surgical History Surgical History Hx of cataract surgery History of lumpectomy of right breast History of mastectomy History of Problems with Anesthesia: No Social History Social History Household Members: Family Household Members Other:: son Alcohol intake: never Patient Tobacco Use Status: Never used Tobacco Use of substances other than those prescribed or required for medical reasons: Unable to respond Last Used Substance Other:: unknown, unable to respond, she is nonsensical and delusional when she does Currently Displaying Signs/Symptoms of Drug Intoxication Withdrawal: No Other Past Substance Use Problem:: unknown, unable to respond, she is nonsensical and delusional when she does Spiritual Healthcare Practices: unknown, unable to respond, she is nonsensical and delusional when she does respond Restorationist Healthcare Practices: unknown, unable to respond, she is nonsensical and delusional when she does respond Cultural Healthcare Practices: unknown, unable to respond, she is nonsensical and delusional when she does respond Advance Directives: No Advance Directives Information Provided: No Do you have thoughts of harming others: None Do you have a plan to hurt others: No Plan Recently lost weight without trying: Unsure Patient : No : No Poor oral hygiene: No service: No Sexual orientation: Straight/Heterosexual Meds Allergies Allergy/AdvReac Type Severity Reaction Status Date / Time atropine Allergy Unknown Shortness Verified 12/02/23 23:30 of Breath enoxaparin [From Lovenox] Allergy Unknown Unknown Verified 12/02/23 23:30 penicillin V Allergy Unknown Unknown Verified 03/19/23 07:30 pseudoephedrine [Aprodine] Allergy Unknown Unknown Verified 03/19/23 07:30 triprolidine [Aprodine] Allergy Unknown Unknown Verified 03/19/23 07:30 Active Medications: Current Medications Acetaminophen (Acetaminophen 325 Mg Tablet) 650 mg PO Q6H PRN PRN Reason: Headache/Pain Mild Scale (1-3) Al Hydroxide/Mg Hydroxide (Magnesium Hydrox/Alum Hydrox 30 Ml Oral.Susp) 30 ml PO Q6H PRN PRN Reason: Heartburn/Nausea Amlodipine Besylate (Amlodipine Besylate 5 Mg Tablet) 5 mg PO DAILY [facility]; Protocol Last Admin: 12/22/23 08:35 Dose: Not Given Anastrozole (Anastrozole 1 Mg Tablet) 1 mg PO DAILY [facility] Last Admin: 12/22/23 08:35 Dose: 1 mg Aspirin (Aspirin 81 Mg Tab.Chew) 81 mg PO DAILY [facility] Last Admin: 12/22/23 08:31 Dose: 81 mg Atorvastatin Calcium (Atorvastatin Calcium 10 Mg Tablet) 10 mg PO BEDTIME [facility] Last Admin: 12/22/23 21:21 Dose: Not Given Ferrous Sulfate (Ferrous Sulfate 324 Mg Tablet.Dr) 324 mg PO DAILY [facility] Last Admin: 12/22/23 08:35 Dose: Not Given Furosemide (Furosemide 20 Mg Tablet) 20 mg PO DAILY [facility]; Protocol Last Admin: 12/22/23 08:35 Dose: Not Given Glucose (Glucose Gel 15 Gm Gel..Gram.) 15 gm PO Q15M PRN; Protocol PRN Reason: per Hypoglycemia Standing Ord. Dextrose (D10) 250 mls @ 750 mls/hr IV Q15M PRN; Protocol PRN Reason: per Hypoglycemia Standing Ord. Insulin Glargine (Insulin Glargine,Hum.Rec.Anlog 100 Unit/Ml 10 Ml Vial) 6 unit SUBCUT BEDTIME [facility] Last Admin: 12/22/23 21:18 Dose: 6 unit Insulin Human Lispro (Insulin Lispro 100 Unit/Ml 3 Ml Vial) 0 unit SUBCUT QIDACHS [facility]; Protocol Last Admin: 12/22/23 21:19 Dose: 6 unit Loratadine (Loratadine 10 Mg Tablet) 10 mg PO BEDTIME [facility] Last Admin: 12/22/23 21:20 Dose: 10 mg Losartan Potassium (Losartan Potassium 50 Mg Tablet) 100 mg PO DAILY [facility]; Protocol Last Admin: 12/22/23 08:35 Dose: Not Given Magnesium Hydroxide (Milk Of Magnesia 30 Ml Oral.Susp) 30 ml PO DAILY PRN PRN Reason: Constipation Magnesium Oxide (Magnesium Oxide 400 Mg Tablet) 400 mg PO BID [facility] Last Admin: 12/22/23 21:20 Dose: Not Given Mirtazapine (Mirtazapine 30 Mg Tablet) 30 mg PO BEDTIME [facility] Last Admin: 12/22/23 21:20 Dose: 30 mg Multivitamins/Vitamin C (Multivitamin Tablet) 1 tab PO DAILY [facility] Last Admin: 12/22/23 08:36 Dose: Not Given Nicotine Polacrilex (Nicotine Polacrilex 2 Mg Gum) 4 mg BUCCAL Q2H PRN PRN Reason: Nicotine Cravings Omeprazole (Omeprazole 20 Mg Capsule.Dr) 20 mg PO DAILY@0630 [facility] Last Admin: 12/23/23 06:21 Dose: Not Given Risperidone (Risperidone 0.5 Mg Tablet) 0.5 mg PO BID PRN PRN Reason: Restlessness Thiamine HCl (Thiamine Hcl 100 Mg Tablet) 100 mg PO DAILY [facility] Last Admin: 12/22/23 08:36 Dose: Not Given Trazodone HCl (Trazodone Hcl 50 Mg Tablet) 50 mg PO BEDTIME PRN PRN Reason: Insomnia Last Admin: 12/08/23 22:06 Dose: 50 mg Valproic Acid (Valproic Acid (As Sodium Salt) 250 Mg/5 Ml Solution) 250 mg PO BID [facility] Last Admin: 12/22/23 21:21 Dose: 250 mg Home Medications ?Medication ?Instructions ?Recorded ?Confirmed ?Last Taken ?Type ascorbate calcium (vitamin C) 500 500 mg PO DAILY 03/24/20 11/20/22 Unknown History mg tablet fluoxetine 20 mg capsule 40 mg PO DAILY 03/24/20 11/20/22 Unknown History levothyroxine 100 mcg tablet 100 mcg PO QAM 03/24/20 11/20/22 Unknown History mirtazapine 30 mg tablet 30 mg PO BEDTIME 03/24/20 11/20/22 Unknown History omeprazole 20 mg capsule,delayed 20 mg PO DAILY 03/24/20 11/20/22 Unknown History release risperidone 1 mg tablet 1 mg PO BEDTIME 03/24/20 11/20/22 Unknown History insulin glargine 100 unit/mL (3 30 unit subcut BEDTIME 09/28/20 11/20/22 Unknown History mL) subcutaneous pen anastrozole 1 mg tablet 1 mg PO DAILY 02/16/21 11/20/22 Unknown History dapagliflozin propanediol 10 mg 10 mg PO QAM 05/08/21 11/20/22 Unknown History tablet (Farxiga) losartan 50 mg tablet 50 mg PO DAILY 09/14/21 11/20/22 Unknown History amlodipine 5 mg tablet 5 mg PO QAM 12/02/23 12/02/23 Unknown History anastrozole 1 mg tablet 1 mg PO DAILY 12/02/23 12/02/23 Unknown History aspirin 81 mg chewable tablet 1 tab PO QAM 12/02/23 12/02/23 Unknown History cetirizine 5 mg tablet 5 mg PO BEDTIME 12/02/23 12/02/23 Unknown History divalproex 500 mg tablet,delayed 500 mg PO BEDTIME 12/02/23 12/02/23 Unknown History release ferrous sulfate 325 mg (65 mg 325 mg PO QAM 12/02/23 12/02/23 Unknown History iron) tablet (FeroSul) furosemide 20 mg tablet (Lasix) 20 mg PO DAILY 12/02/23 12/02/23 Unknown History insulin glargine 100 unit/mL 6 unit subcut BEDTIME 12/02/23 12/02/23 Unknown History subcutaneous solution insulin lispro 100 unit/mL 1 sliding scale dose subcut 12/02/23 12/02/23 Unknown History subcutaneous solution USEASDIRECTD levetiracetam 500 mg tablet 500 mg PO BID 12/02/23 12/02/23 Unknown History losartan 100 mg tablet 100 mg PO DAILY 12/02/23 12/02/23 Unknown History losartan 100 mg tablet 100 mg PO DAILY 12/02/23 12/02/23 Unknown History magnesium oxide 400 mg PO BID 12/02/23 12/02/23 Unknown History mirtazapine 30 mg disintegrating 30 mg PO BEDTIME 12/02/23 12/02/23 Unknown History tablet multivitamin with minerals 1 tab PO DAILY 12/02/23 12/02/23 Unknown History pantoprazole 40 mg tablet,delayed 40 mg PO DAILY 12/02/23 12/02/23 Unknown History release risperidone 0.5 mg tablet 0.5 mg PO BID PRN Agitation 12/02/23 12/02/23 Unknown History risperidone 2 mg tablet 2 mg PO BID 12/02/23 12/02/23 Unknown History simvastatin 20 mg tablet 20 mg PO BEDTIME 12/02/23 12/02/23 Unknown History thiamine HCl (vitamin B1) 100 mg 100 mg PO QAM 12/02/23 12/02/23 Unknown History tablet trazodone 50 mg tablet 50 mg PO BEDTIME PRN insomnia 12/02/23 12/02/23 Unknown History vancomycin 125 mg capsule See Rx Instructions .Route .COMPLEX 12/02/23 12/02/23 Unknown History (Vancocin) Exam Height,Weight and Vital Signs: Height 4 ft 11 in Weight 45.2 kg Last Vital Signs Temp 98 F 12/23/23 06:49 Pulse 53 12/23/23 06:49 Resp 16 12/23/23 06:49 BP 123/47 L 12/23/23 06:49 Pulse Ox 96 12/23/23 06:49 O2 Del Method Room Air 12/23/23 06:49 O2 Flow Rate 2 12/18/23 22:32 Pertinent Lab Results Pertinent Lab Results: Laboratory Tests 12/02/23 12/03/23 12/03/23 22:55 06:35 08:01 WBC RBC Hgb Hct MCV MCH MCHC RDW Plt Count MPV Immature Gran % (Auto) Neut % (Auto) Lymph % (Auto) Christian % (Auto) Eos % (Auto) Baso % (Auto) Lymph # (Auto) Christian # (Auto) Eos # (Auto) Baso # (Auto) Abs Immat Gran (auto) Absolute Neuts (auto) Absolute Nucleated RBC Nucleated RBC % (auto) Sodium 134 L Potassium 4.0 Chloride 98 Carbon Dioxide 27 Anion Gap 13 BUN 21 H Creatinine 0.88 Estim Creat Clear Calc TNP Estimated GFR > 60 POC Glucose 296 H 212 H Random Glucose Fasting Glucose 236 H Estimat Average Glucose 169 Hemoglobin A1c % 7.5 H Calcium 10.2 Total Bilirubin 0.5 Direct Bilirubin AST 19 ALT 16 Alkaline Phosphatase 93 Ammonia Total Protein 8.7 H Albumin 3.5 Triglycerides 105 Cholesterol 182 LDL Cholesterol, Calc 93 HDL Cholesterol 68 Vitamin B12 Folate TSH Urine Color Urine Appearance Urine pH Ur Specific [place] Urine Protein Urine Glucose (UA) Urine Ketones Urine Blood Urine Nitrite Ur Leukocyte Esterase Urine RBC Urine WBC Ur Squamous Epith Cells Urine Bacteria Hyaline Casts Granular Casts Urine Yeast Stool Occult Blood Stl C. cayetanensis PCR Stool Rotavirus A PCR Stl Adenov F 40/41 PCR Stool Astrovirus (PCR) Stool Campylobacter PCR Stool Cryptosporidium PCR Stl Sh Tox Pr E STEC PCR Stool E coli O157 PCR Stl Enterotoxigenic E PCR Stool EPEC (PCR) Stool EAEC (PCR) Stl E. histolytica PCR Stool Giardia Lamblia PCR Stl P. shigelloides PCR Stool Salmonella PCR Stool Sapovirus (PCR) Stl Shigella/EIEC PCR St Y.enterocolitica PCR Stool Vibrio (PCR) Stl Vibrio cholerae PCR Stl Norovirus GI/GII PCR Valproic Acid C. difficile Tox B Gene C. difficile Toxin A&B C. difficile Interpret 12/03/23 12/03/23 12/03/23 10:29 11:31 11:45 WBC 4.6 L RBC 3.96 L Hgb 10.9 L Hct 33.1 L MCV 83.6 MCH 27.5 MCHC 32.9 RDW 14.9 Plt Count 116 L MPV 9.5 Immature Gran % (Auto) 0.2 Neut % (Auto) 70.4 Lymph % (Auto) 17.7 L Christian % (Auto) 10.4 Eos % (Auto) 1.1 Baso % (Auto) 0.2 Lymph # (Auto) 0.8 L Christian # (Auto) 0.5 Eos # (Auto) 0.1 Baso # (Auto) 0.0 Abs Immat Gran (auto) 0.01 Absolute Neuts (auto) 3.3 Absolute Nucleated RBC 0.000 Nucleated RBC % (auto) 0.0 Sodium Potassium Chloride Carbon Dioxide Anion Gap BUN Creatinine Estim Creat Clear Calc Estimated GFR POC Glucose 234 H Random Glucose Fasting Glucose Estimat Average Glucose Hemoglobin A1c % Calcium Total Bilirubin Direct Bilirubin AST ALT Alkaline Phosphatase Ammonia 55 Total Protein Albumin Triglycerides Cholesterol LDL Cholesterol, Calc HDL Cholesterol Vitamin B12 Folate TSH Urine Color Urine Appearance Urine pH Ur Specific [place] Urine Protein Urine Glucose (UA) Urine Ketones Urine Blood Urine Nitrite Ur Leukocyte Esterase Urine RBC Urine WBC Ur Squamous Epith Cells Urine Bacteria Hyaline Casts Granular Casts Urine Yeast Stool Occult Blood Stl C. cayetanensis PCR Stool Rotavirus A PCR Stl Adenov F PCR Stool Astrovirus (PCR) Stool Campylobacter PCR Stool Cryptosporidium PCR Stl Sh Tox Pr E STEC PCR Stool E coli O157 PCR Stl Enterotoxigenic E PCR Stool EPEC (PCR) Stool EAEC (PCR) Stl E. histolytica PCR Stool Giardia Lamblia PCR Stl P. shigelloides PCR Stool Salmonella PCR Stool Sapovirus (PCR) Stl Shigella/EIEC PCR St Y.enterocolitica PCR Stool Vibrio (PCR) Stl Vibrio cholerae PCR Stl Norovirus GI/GII PCR Valproic Acid C. difficile Tox B Gene C. difficile Toxin A&B C. difficile Interpret 12/03/23 12/03/23 12/03/23 16:05 16:31 17:30 WBC RBC Hgb Hct MCV MCH MCHC RDW Plt Count MPV Immature Gran % (Auto) Neut % (Auto) Lymph % (Auto) Christian % (Auto) Eos % (Auto) Baso % (Auto) Lymph # (Auto) Christian # (Auto) Eos # (Auto) Baso # (Auto) Abs Immat Gran (auto) Absolute Neuts (auto) Absolute Nucleated RBC Nucleated RBC % (auto) Sodium Potassium Chloride Carbon Dioxide Anion Gap BUN Creatinine Estim Creat Clear Calc Estimated GFR POC Glucose 217 H Random Glucose Fasting Glucose Estimat Average Glucose Hemoglobin A1c % Calcium Total Bilirubin Direct Bilirubin AST ALT Alkaline Phosphatase Ammonia Total Protein Albumin Triglycerides Cholesterol LDL Cholesterol, Calc HDL Cholesterol Vitamin B12 Folate TSH Urine Color Yellow Urine Appearance Cloudy Urine pH 5.5 Ur Specific [place] 1.020 Urine Protein 30 (1+) H Urine Glucose (UA) Negative Urine Ketones Negative Urine Blood Moderate (2+) H Urine Nitrite Negative Ur Leukocyte Esterase Moderate (2+) H Urine RBC >20 H Urine WBC >50 H Ur Squamous Epith Cells 3-5 Urine Bacteria 4+ Hyaline Casts >20 Granular Casts Present Urine Yeast Present Stool Occult Blood NEGATIVE Stl C. cayetanensis PCR Not Detected Stool Rotavirus A PCR Not Detected Stl Adenov F PCR Not Detected Stool Astrovirus (PCR) Not Detected Stool Campylobacter PCR Not Detected Stool Cryptosporidium PCR Not Detected Stl Sh Tox Pr E STEC PCR Not Detected Stool E coli O157 PCR Not applicable Stl Enterotoxigenic E PCR Not Detected Stool EPEC (PCR) Not Detected Stool EAEC (PCR) Not Detected Stl E. histolytica PCR Not Detected Stool Giardia Lamblia PCR Not Detected Stl P. shigelloides PCR Not Detected Stool Salmonella PCR Not Detected Stool Sapovirus (PCR) Not Detected Stl Shigella/EIEC PCR Not Detected St Y.enterocolitica PCR Not Detected Stool Vibrio (PCR) Not Detected Stl Vibrio cholerae PCR Not Detected Stl Norovirus GI/GII PCR Not Detected Valproic Acid C. difficile Tox B Gene POSITIVE A* C. difficile Toxin A&B Positive A* C. difficile Interpret SEE NOTE 12/03/23 12/04/23 12/04/23 21:03 06:21 11:26 WBC RBC Hgb Hct MCV MCH MCHC RDW Plt Count MPV Immature Gran % (Auto) Neut % (Auto) Lymph % (Auto) Christian % (Auto) Eos % (Auto) Baso % (Auto) Lymph # (Auto) Christian # (Auto) Eos # (Auto) Baso # (Auto) Abs Immat Gran (auto) Absolute Neuts (auto) Absolute Nucleated RBC Nucleated RBC % (auto) Sodium Potassium Chloride Carbon Dioxide Anion Gap BUN Creatinine Estim Creat Clear Calc Estimated GFR POC Glucose 207 H 176 H 210 H Random Glucose Fasting Glucose Estimat Average Glucose Hemoglobin A1c % Calcium Total Bilirubin Direct Bilirubin AST ALT Alkaline Phosphatase Ammonia Total Protein Albumin Triglycerides Cholesterol LDL Cholesterol, Calc HDL Cholesterol Vitamin B12 Folate TSH Urine Color Urine Appearance Urine pH Ur Specific [place] Urine Protein Urine Glucose (UA) Urine Ketones Urine Blood Urine Nitrite Ur Leukocyte Esterase Urine RBC Urine WBC Ur Squamous Epith Cells Urine Bacteria Hyaline Casts Granular Casts Urine Yeast Stool Occult Blood Stl C. cayetanensis PCR Stool Rotavirus A PCR Stl Adenov F PCR Stool Astrovirus (PCR) Stool Campylobacter PCR Stool Cryptosporidium PCR Stl Sh Tox Pr E STEC PCR Stool E coli O157 PCR Stl Enterotoxigenic E PCR Stool EPEC (PCR) Stool EAEC (PCR) Stl E. histolytica PCR Stool Giardia Lamblia PCR Stl P. shigelloides PCR Stool Salmonella PCR Stool Sapovirus (PCR) Stl Shigella/EIEC PCR St Y.enterocolitica PCR Stool Vibrio (PCR) Stl Vibrio cholerae PCR Stl Norovirus GI/GII PCR Valproic Acid C. difficile Tox B Gene C. difficile Toxin A&B C. difficile Interpret 12/04/23 12/04/23 12/05/23 16:34 20:17 06:35 WBC RBC Hgb Hct MCV MCH MCHC RDW Plt Count MPV Immature Gran % (Auto) Neut % (Auto) Lymph % (Auto) Christian % (Auto) Eos % (Auto) Baso % (Auto) Lymph # (Auto) Christian # (Auto) Eos # (Auto) Baso # (Auto) Abs Immat Gran (auto) Absolute Neuts (auto) Absolute Nucleated RBC Nucleated RBC % (auto) Sodium Potassium Chloride Carbon Dioxide Anion Gap BUN Creatinine Estim Creat Clear Calc Estimated GFR POC Glucose 176 H 154 H 146 H Random Glucose Fasting Glucose Estimat Average Glucose Hemoglobin A1c % Calcium Total Bilirubin Direct Bilirubin AST ALT Alkaline Phosphatase Ammonia Total Protein Albumin Triglycerides Cholesterol LDL Cholesterol, Calc HDL Cholesterol Vitamin B12 Folate TSH Urine Color Urine Appearance Urine pH Ur Specific [place] Urine Protein Urine Glucose (UA) Urine Ketones Urine Blood Urine Nitrite Ur Leukocyte Esterase Urine RBC Urine WBC Ur Squamous Epith Cells Urine Bacteria Hyaline Casts Granular Casts Urine Yeast Stool Occult Blood Stl C. cayetanensis PCR Stool Rotavirus A PCR Stl Adenov F 40/41 PCR Stool Astrovirus (PCR) Stool Campylobacter PCR Stool Cryptosporidium PCR Stl Sh Tox Pr E STEC PCR Stool E coli O157 PCR Stl Enterotoxigenic E PCR Stool EPEC (PCR) Stool EAEC (PCR) Stl E. histolytica PCR Stool Giardia Lamblia PCR Stl P. shigelloides PCR Stool Salmonella PCR Stool Sapovirus (PCR) Stl Shigella/EIEC PCR St Y.enterocolitica PCR Stool Vibrio (PCR) Stl Vibrio cholerae PCR Stl Norovirus GI/GII PCR Valproic Acid C. difficile Tox B Gene C. difficile Toxin A&B C. difficile Interpret 12/05/23 12/05/23 12/05/23 11:08 16:36 20:27 WBC RBC Hgb Hct MCV MCH MCHC RDW Plt Count MPV Immature Gran % (Auto) Neut % (Auto) Lymph % (Auto) Christian % (Auto) Eos % (Auto) Baso % (Auto) Lymph # (Auto) Christian # (Auto) Eos # (Auto) Baso # (Auto) Abs Immat Gran (auto) Absolute Neuts (auto) Absolute Nucleated RBC Nucleated RBC % (auto) Sodium Potassium Chloride Carbon Dioxide Anion Gap BUN Creatinine Estim Creat Clear Calc Estimated GFR POC Glucose 164 H 162 H 198 H Random Glucose Fasting Glucose Estimat Average Glucose Hemoglobin A1c % Calcium Total Bilirubin Direct Bilirubin AST ALT Alkaline Phosphatase Ammonia Total Protein Albumin Triglycerides Cholesterol LDL Cholesterol, Calc HDL Cholesterol Vitamin B12 Folate TSH Urine Color Urine Appearance Urine pH Ur Specific [place] Urine Protein Urine Glucose (UA) Urine Ketones Urine Blood Urine Nitrite Ur Leukocyte Esterase Urine RBC Urine WBC Ur Squamous Epith Cells Urine Bacteria Hyaline Casts Granular Casts Urine Yeast Stool Occult Blood Stl C. cayetanensis PCR Stool Rotavirus A PCR Stl Adenov F 40/41 PCR Stool Astrovirus (PCR) Stool Campylobacter PCR Stool Cryptosporidium PCR Stl Sh Tox Pr E STEC PCR Stool E coli O157 PCR Stl Enterotoxigenic E PCR Stool EPEC (PCR) Stool EAEC (PCR) Stl E. histolytica PCR Stool Giardia Lamblia PCR Stl P. shigelloides PCR Stool Salmonella PCR Stool Sapovirus (PCR) Stl Shigella/EIEC PCR St Y.enterocolitica PCR Stool Vibrio (PCR) Stl Vibrio cholerae PCR Stl Norovirus GI/GII PCR Valproic Acid C. difficile Tox B Gene C. difficile Toxin A&B C. difficile Interpret 12/06/23 12/06/23 12/06/23 06:22 07:57 11:30 WBC RBC Hgb Hct MCV MCH MCHC RDW Plt Count MPV Immature Gran % (Auto) Neut % (Auto) Lymph % (Auto) Christian % (Auto) Eos % (Auto) Baso % (Auto) Lymph # (Auto) Christian # (Auto) Eos # (Auto) Baso # (Auto) Abs Immat Gran (auto) Absolute Neuts (auto) Absolute Nucleated RBC Nucleated RBC % (auto) Sodium 142 Potassium 4.5 Chloride 103 Carbon Dioxide 30 H Anion Gap 14 BUN 32 H Creatinine 0.88 Estim Creat Clear Calc 37.7 Estimated GFR > 60 POC Glucose 122 H 135 H Random Glucose Fasting Glucose 137 H Estimat Average Glucose Hemoglobin A1c % Calcium 10.7 H Total Bilirubin 0.5 Direct Bilirubin AST 24 ALT 15 Alkaline Phosphatase 97 Ammonia Total Protein 9.2 H Albumin 3.6 Triglycerides Cholesterol LDL Cholesterol, Calc HDL Cholesterol Vitamin B12 1504 H Folate 14.9 TSH 2.88 Urine Color Urine Appearance Urine pH Ur Specific [place] Urine Protein Urine Glucose (UA) Urine Ketones Urine Blood Urine Nitrite Ur Leukocyte Esterase Urine RBC Urine WBC Ur Squamous Epith Cells Urine Bacteria Hyaline Casts Granular Casts Urine Yeast Stool Occult Blood Stl C. cayetanensis PCR Stool Rotavirus A PCR Stl Adenov F PCR Stool Astrovirus (PCR) Stool Campylobacter PCR Stool Cryptosporidium PCR Stl Sh Tox Pr E STEC PCR Stool E coli O157 PCR Stl Enterotoxigenic E PCR Stool EPEC (PCR) Stool EAEC (PCR) Stl E. histolytica PCR Stool Giardia Lamblia PCR Stl P. shigelloides PCR Stool Salmonella PCR Stool Sapovirus (PCR) Stl Shigella/EIEC PCR St Y.enterocolitica PCR Stool Vibrio (PCR) Stl Vibrio cholerae PCR Stl Norovirus GI/GII PCR Valproic Acid C. difficile Tox B Gene C. difficile Toxin A&B C. difficile Interpret 12/06/23 12/06/23 12/07/23 16:30 19:51 06:57 WBC RBC Hgb Hct MCV MCH MCHC RDW Plt Count MPV Immature Gran % (Auto) Neut % (Auto) Lymph % (Auto) Christian % (Auto) Eos % (Auto) Baso % (Auto) Lymph # (Auto) Christian # (Auto) Eos # (Auto) Baso # (Auto) Abs Immat Gran (auto) Absolute Neuts (auto) Absolute Nucleated RBC Nucleated RBC % (auto) Sodium Potassium Chloride Carbon Dioxide Anion Gap BUN Creatinine Estim Creat Clear Calc Estimated GFR POC Glucose 173 H 208 H 151 H Random Glucose Fasting Glucose Estimat Average Glucose Hemoglobin A1c % Calcium Total Bilirubin Direct Bilirubin AST ALT Alkaline Phosphatase Ammonia Total Protein Albumin Triglycerides Cholesterol LDL Cholesterol, Calc HDL Cholesterol Vitamin B12 Folate TSH Urine Color Urine Appearance Urine pH Ur Specific [place] Urine Protein Urine Glucose (UA) Urine Ketones Urine Blood Urine Nitrite Ur Leukocyte Esterase Urine RBC Urine WBC Ur Squamous Epith Cells Urine Bacteria Hyaline Casts Granular Casts Urine Yeast Stool Occult Blood Stl C. cayetanensis PCR Stool Rotavirus A PCR Stl Adenov F PCR Stool Astrovirus (PCR) Stool Campylobacter PCR Stool Cryptosporidium PCR Stl Sh Tox Pr E STEC PCR Stool E coli O157 PCR Stl Enterotoxigenic E PCR Stool EPEC (PCR) Stool EAEC (PCR) Stl E. histolytica PCR Stool Giardia Lamblia PCR Stl P. shigelloides PCR Stool Salmonella PCR Stool Sapovirus (PCR) Stl Shigella/EIEC PCR St Y.enterocolitica PCR Stool Vibrio (PCR) Stl Vibrio cholerae PCR Stl Norovirus GI/GII PCR Valproic Acid C. difficile Tox B Gene C. difficile Toxin A&B C. difficile Interpret 12/07/23 12/07/23 12/07/23 11:09 16:11 19:32 WBC RBC Hgb Hct MCV MCH MCHC RDW Plt Count MPV Immature Gran % (Auto) Neut % (Auto) Lymph % (Auto) Christian % (Auto) Eos % (Auto) Baso % (Auto) Lymph # (Auto) Christian # (Auto) Eos # (Auto) Baso # (Auto) Abs Immat Gran (auto) Absolute Neuts (auto) Absolute Nucleated RBC Nucleated RBC % (auto) Sodium Potassium Chloride Carbon Dioxide Anion Gap BUN Creatinine Estim Creat Clear Calc Estimated GFR POC Glucose 167 H 154 H 225 H Random Glucose Fasting Glucose Estimat Average Glucose Hemoglobin A1c % Calcium Total Bilirubin Direct Bilirubin AST ALT Alkaline Phosphatase Ammonia Total Protein Albumin Triglycerides Cholesterol LDL Cholesterol, Calc HDL Cholesterol Vitamin B12 Folate TSH Urine Color Urine Appearance Urine pH Ur Specific [place] Urine Protein Urine Glucose (UA) Urine Ketones Urine Blood Urine Nitrite Ur Leukocyte Esterase Urine RBC Urine WBC Ur Squamous Epith Cells Urine Bacteria Hyaline Casts Granular Casts Urine Yeast Stool Occult Blood Stl C. cayetanensis PCR Stool Rotavirus A PCR Stl Adenov F 40/41 PCR Stool Astrovirus (PCR) Stool Campylobacter PCR Stool Cryptosporidium PCR Stl Sh Tox Pr E STEC PCR Stool E coli O157 PCR Stl Enterotoxigenic E PCR Stool EPEC (PCR) Stool EAEC (PCR) Stl E. histolytica PCR Stool Giardia Lamblia PCR Stl P. shigelloides PCR Stool Salmonella PCR Stool Sapovirus (PCR) Stl Shigella/EIEC PCR St Y.enterocolitica PCR Stool Vibrio (PCR) Stl Vibrio cholerae PCR Stl Norovirus GI/GII PCR Valproic Acid C. difficile Tox B Gene C. difficile Toxin A&B C. difficile Interpret 12/08/23 12/08/23 12/08/23 06:23 11:15 16:29 WBC RBC Hgb Hct MCV MCH MCHC RDW Plt Count MPV Immature Gran % (Auto) Neut % (Auto) Lymph % (Auto) Christian % (Auto) Eos % (Auto) Baso % (Auto) Lymph # (Auto) Christian # (Auto) Eos # (Auto) Baso # (Auto) Abs Immat Gran (auto) Absolute Neuts (auto) Absolute Nucleated RBC Nucleated RBC % (auto) Sodium Potassium Chloride Carbon Dioxide Anion Gap BUN Creatinine Estim Creat Clear Calc Estimated GFR POC Glucose 150 H 171 H 131 H Random Glucose Fasting Glucose Estimat Average Glucose Hemoglobin A1c % Calcium Total Bilirubin Direct Bilirubin AST ALT Alkaline Phosphatase Ammonia Total Protein Albumin Triglycerides Cholesterol LDL Cholesterol, Calc HDL Cholesterol Vitamin B12 Folate TSH Urine Color Urine Appearance Urine pH Ur Specific [place] Urine Protein Urine Glucose (UA) Urine Ketones Urine Blood Urine Nitrite Ur Leukocyte Esterase Urine RBC Urine WBC Ur Squamous Epith Cells Urine Bacteria Hyaline Casts Granular Casts Urine Yeast Stool Occult Blood Stl C. cayetanensis PCR Stool Rotavirus A PCR Stl Adenov F PCR Stool Astrovirus (PCR) Stool Campylobacter PCR Stool Cryptosporidium PCR Stl Sh Tox Pr E STEC PCR Stool E coli O157 PCR Stl Enterotoxigenic E PCR Stool EPEC (PCR) Stool EAEC (PCR) Stl E. histolytica PCR Stool Giardia Lamblia PCR Stl P. shigelloides PCR Stool Salmonella PCR Stool Sapovirus (PCR) Stl Shigella/EIEC PCR St Y.enterocolitica PCR Stool Vibrio (PCR) Stl Vibrio cholerae PCR Stl Norovirus GI/GII PCR Valproic Acid C. difficile Tox B Gene C. difficile Toxin A&B C. difficile Interpret 12/08/23 12/08/23 12/09/23 19:07 20:11 06:32 WBC 3.3 L RBC 3.73 L Hgb 10.3 L Hct 32.0 L MCV 85.8 MCH 27.6 MCHC 32.2 RDW 14.2 Plt Count 99 L MPV 10.0 Immature Gran % (Auto) 0.3 Neut % (Auto) 53.2 Lymph % (Auto) 29.7 Christian % (Auto) 15.3 H Eos % (Auto) 1.2 Baso % (Auto) 0.3 Lymph # (Auto) 1.0 L Christian # (Auto) 0.5 Eos # (Auto) 0.0 Baso # (Auto) 0.0 Abs Immat Gran (auto) 0.01 Absolute Neuts (auto) 1.8 L Absolute Nucleated RBC 0.000 Nucleated RBC % (auto) 0.0 Sodium 142 Potassium 4.2 Chloride 104 Carbon Dioxide 30 H Anion Gap 12 BUN 27 H Creatinine 0.82 Estim Creat Clear Calc 40.4 Estimated GFR > 60 POC Glucose 116 H 145 H Random Glucose 114 Fasting Glucose Estimat Average Glucose Hemoglobin A1c % Calcium 10.5 H Total Bilirubin 0.6 Direct Bilirubin AST 25 ALT 14 Alkaline Phosphatase 90 Ammonia Total Protein 8.6 H Albumin 3.4 L Triglycerides Cholesterol LDL Cholesterol, Calc HDL Cholesterol Vitamin B12 Folate TSH Urine Color Urine Appearance Urine pH Ur Specific [place] Urine Protein Urine Glucose (UA) Urine Ketones Urine Blood Urine Nitrite Ur Leukocyte Esterase Urine RBC Urine WBC Ur Squamous Epith Cells Urine Bacteria Hyaline Casts Granular Casts Urine Yeast Stool Occult Blood Stl C. cayetanensis PCR Stool Rotavirus A PCR Stl Adenov F 40/ PCR Stool Astrovirus (PCR) Stool Campylobacter PCR Stool Cryptosporidium PCR Stl Sh Tox Pr E STEC PCR Stool E coli O157 PCR Stl Enterotoxigenic E PCR Stool EPEC (PCR) Stool EAEC (PCR) Stl E. histolytica PCR Stool Giardia Lamblia PCR Stl P. shigelloides PCR Stool Salmonella PCR Stool Sapovirus (PCR) Stl Shigella/EIEC PCR St Y.enterocolitica PCR Stool Vibrio (PCR) Stl Vibrio cholerae PCR Stl Norovirus GI/GII PCR Valproic Acid C. difficile Tox B Gene C. difficile Toxin A&B C. difficile Interpret 12/09/23 12/09/23 12/09/23 09:57 11:34 16:28 WBC 2.8 L RBC 3.68 L Hgb 10.1 L Hct 32.1 L MCV 87.2 MCH 27.4 MCHC 31.5 RDW 14.4 Plt Count 86 L MPV 9.6 Immature Gran % (Auto) 0.0 Neut % (Auto) 56.4 Lymph % (Auto) 29.1 Christian % (Auto) 12.4 H Eos % (Auto) 1.4 Baso % (Auto) 0.7 Lymph # (Auto) 0.8 L Christian # (Auto) 0.4 Eos # (Auto) 0.0 Baso # (Auto) 0.0 Abs Immat Gran (auto) 0.00 Absolute Neuts (auto) 1.6 L Absolute Nucleated RBC 0.000 Nucleated RBC % (auto) 0.0 Sodium 140 Potassium 4.7 Chloride 103 Carbon Dioxide 30 H Anion Gap 12 BUN 30 H Creatinine 0.99 Estim Creat Clear Calc 33.4 Estimated GFR 55 POC Glucose 201 H 143 H Random Glucose 279 H Fasting Glucose Estimat Average Glucose Hemoglobin A1c % Calcium 10.4 H Total Bilirubin 0.4 Direct Bilirubin 0.2 AST 30 ALT 16 Alkaline Phosphatase 96 Ammonia Total Protein 8.4 H Albumin 3.3 L Triglycerides Cholesterol LDL Cholesterol, Calc HDL Cholesterol Vitamin B12 Folate TSH Urine Color Urine Appearance Urine pH Ur Specific [place] Urine Protein Urine Glucose (UA) Urine Ketones Urine Blood Urine Nitrite Ur Leukocyte Esterase Urine RBC Urine WBC Ur Squamous Epith Cells Urine Bacteria Hyaline Casts Granular Casts Urine Yeast Stool Occult Blood Stl C. cayetanensis PCR Stool Rotavirus A PCR Stl Adenov F 40/41 PCR Stool Astrovirus (PCR) Stool Campylobacter PCR Stool Cryptosporidium PCR Stl Sh Tox Pr E STEC PCR Stool E coli O157 PCR Stl Enterotoxigenic E PCR Stool EPEC (PCR) Stool EAEC (PCR) Stl E. histolytica PCR Stool Giardia Lamblia PCR Stl P. shigelloides PCR Stool Salmonella PCR Stool Sapovirus (PCR) Stl Shigella/EIEC PCR St Y.enterocolitica PCR Stool Vibrio (PCR) Stl Vibrio cholerae PCR Stl Norovirus GI/GII PCR Valproic Acid C. difficile Tox B Gene C. difficile Toxin A&B C. difficile Interpret 12/09/23 12/10/23 12/10/23 19:52 06:12 08:25 WBC RBC Hgb Hct MCV MCH MCHC RDW Plt Count MPV Immature Gran % (Auto) Neut % (Auto) Lymph % (Auto) Christian % (Auto) Eos % (Auto) Baso % (Auto) Lymph # (Auto) Christian # (Auto) Eos # (Auto) Baso # (Auto) Abs Immat Gran (auto) Absolute Neuts (auto) Absolute Nucleated RBC Nucleated RBC % (auto) Sodium Potassium Chloride Carbon Dioxide Anion Gap BUN Creatinine Estim Creat Clear Calc Estimated GFR POC Glucose 205 H 124 H 146 H Random Glucose Fasting Glucose Estimat Average Glucose Hemoglobin A1c % Calcium Total Bilirubin Direct Bilirubin AST ALT Alkaline Phosphatase Ammonia Total Protein Albumin Triglycerides Cholesterol LDL Cholesterol, Calc HDL Cholesterol Vitamin B12 Folate TSH Urine Color Urine Appearance Urine pH Ur Specific [place] Urine Protein Urine Glucose (UA) Urine Ketones Urine Blood Urine Nitrite Ur Leukocyte Esterase Urine RBC Urine WBC Ur Squamous Epith Cells Urine Bacteria Hyaline Casts Granular Casts Urine Yeast Stool Occult Blood Stl C. cayetanensis PCR Stool Rotavirus A PCR Stl Adenov F PCR Stool Astrovirus (PCR) Stool Campylobacter PCR Stool Cryptosporidium PCR Stl Sh Tox Pr E STEC PCR Stool E coli O157 PCR Stl Enterotoxigenic E PCR Stool EPEC (PCR) Stool EAEC (PCR) Stl E. histolytica PCR Stool Giardia Lamblia PCR Stl P. shigelloides PCR Stool Salmonella PCR Stool Sapovirus (PCR) Stl Shigella/EIEC PCR St Y.enterocolitica PCR Stool Vibrio (PCR) Stl Vibrio cholerae PCR Stl Norovirus GI/GII PCR Valproic Acid C. difficile Tox B Gene C. difficile Toxin A&B C. difficile Interpret 12/10/23 12/10/23 12/10/23 11:53 16:42 20:01 WBC RBC Hgb Hct MCV MCH MCHC RDW Plt Count MPV Immature Gran % (Auto) Neut % (Auto) Lymph % (Auto) Christian % (Auto) Eos % (Auto) Baso % (Auto) Lymph # (Auto) Christian # (Auto) Eos # (Auto) Baso # (Auto) Abs Immat Gran (auto) Absolute Neuts (auto) Absolute Nucleated RBC Nucleated RBC % (auto) Sodium Potassium Chloride Carbon Dioxide Anion Gap BUN Creatinine Estim Creat Clear Calc Estimated GFR POC Glucose 185 H 164 H 139 H Random Glucose Fasting Glucose Estimat Average Glucose Hemoglobin A1c % Calcium Total Bilirubin Direct Bilirubin AST ALT Alkaline Phosphatase Ammonia Total Protein Albumin Triglycerides Cholesterol LDL Cholesterol, Calc HDL Cholesterol Vitamin B12 Folate TSH Urine Color Urine Appearance Urine pH Ur Specific [place] Urine Protein Urine Glucose (UA) Urine Ketones Urine Blood Urine Nitrite Ur Leukocyte Esterase Urine RBC Urine WBC Ur Squamous Epith Cells Urine Bacteria Hyaline Casts Granular Casts Urine Yeast Stool Occult Blood Stl C. cayetanensis PCR Stool Rotavirus A PCR Stl Adenov F PCR Stool Astrovirus (PCR) Stool Campylobacter PCR Stool Cryptosporidium PCR Stl Sh Tox Pr E STEC PCR Stool E coli O157 PCR Stl Enterotoxigenic E PCR Stool EPEC (PCR) Stool EAEC (PCR) Stl E. histolytica PCR Stool Giardia Lamblia PCR Stl P. shigelloides PCR Stool Salmonella PCR Stool Sapovirus (PCR) Stl Shigella/EIEC PCR St Y.enterocolitica PCR Stool Vibrio (PCR) Stl Vibrio cholerae PCR Stl Norovirus GI/GII PCR Valproic Acid C. difficile Tox B Gene C. difficile Toxin A&B C. difficile Interpret 12/11/23 12/11/23 12/11/23 06:00 11:58 16:39 WBC RBC Hgb Hct MCV MCH MCHC RDW Plt Count MPV Immature Gran % (Auto) Neut % (Auto) Lymph % (Auto) Christian % (Auto) Eos % (Auto) Baso % (Auto) Lymph # (Auto) Christian # (Auto) Eos # (Auto) Baso # (Auto) Abs Immat Gran (auto) Absolute Neuts (auto) Absolute Nucleated RBC Nucleated RBC % (auto) Sodium Potassium Chloride Carbon Dioxide Anion Gap BUN Creatinine Estim Creat Clear Calc Estimated GFR POC Glucose 151 H 158 H 134 H Random Glucose Fasting Glucose Estimat Average Glucose Hemoglobin A1c % Calcium Total Bilirubin Direct Bilirubin AST ALT Alkaline Phosphatase Ammonia Total Protein Albumin Triglycerides Cholesterol LDL Cholesterol, Calc HDL Cholesterol Vitamin B12 Folate TSH Urine Color Urine Appearance Urine pH Ur Specific [place] Urine Protein Urine Glucose (UA) Urine Ketones Urine Blood Urine Nitrite Ur Leukocyte Esterase Urine RBC Urine WBC Ur Squamous Epith Cells Urine Bacteria Hyaline Casts Granular Casts Urine Yeast Stool Occult Blood Stl C. cayetanensis PCR Stool Rotavirus A PCR Stl Adenov F 40/41 PCR Stool Astrovirus (PCR) Stool Campylobacter PCR Stool Cryptosporidium PCR Stl Sh Tox Pr E STEC PCR Stool E coli O157 PCR Stl Enterotoxigenic E PCR Stool EPEC (PCR) Stool EAEC (PCR) Stl E. histolytica PCR Stool Giardia Lamblia PCR Stl P. shigelloides PCR Stool Salmonella PCR Stool Sapovirus (PCR) Stl Shigella/EIEC PCR St Y.enterocolitica PCR Stool Vibrio (PCR) Stl Vibrio cholerae PCR Stl Norovirus GI/GII PCR Valproic Acid C. difficile Tox B Gene C. difficile Toxin A&B C. difficile Interpret 12/11/23 12/12/23 12/12/23 19:50 06:41 11:33 WBC RBC Hgb Hct MCV MCH MCHC RDW Plt Count MPV Immature Gran % (Auto) Neut % (Auto) Lymph % (Auto) Christian % (Auto) Eos % (Auto) Baso % (Auto) Lymph # (Auto) Christian # (Auto) Eos # (Auto) Baso # (Auto) Abs Immat Gran (auto) Absolute Neuts (auto) Absolute Nucleated RBC Nucleated RBC % (auto) Sodium Potassium Chloride Carbon Dioxide Anion Gap BUN Creatinine Estim Creat Clear Calc Estimated GFR POC Glucose 136 H 149 H 230 H Random Glucose Fasting Glucose Estimat Average Glucose Hemoglobin A1c % Calcium Total Bilirubin Direct Bilirubin AST ALT Alkaline Phosphatase Ammonia Total Protein Albumin Triglycerides Cholesterol LDL Cholesterol, Calc HDL Cholesterol Vitamin B12 Folate TSH Urine Color Urine Appearance Urine pH Ur Specific [place] Urine Protein Urine Glucose (UA) Urine Ketones Urine Blood Urine Nitrite Ur Leukocyte Esterase Urine RBC Urine WBC Ur Squamous Epith Cells Urine Bacteria Hyaline Casts Granular Casts Urine Yeast Stool Occult Blood Stl C. cayetanensis PCR Stool Rotavirus A PCR Stl Adenov F 40/41 PCR Stool Astrovirus (PCR) Stool Campylobacter PCR Stool Cryptosporidium PCR Stl Sh Tox Pr E STEC PCR Stool E coli O157 PCR Stl Enterotoxigenic E PCR Stool EPEC (PCR) Stool EAEC (PCR) Stl E. histolytica PCR Stool Giardia Lamblia PCR Stl P. shigelloides PCR Stool Salmonella PCR Stool Sapovirus (PCR) Stl Shigella/EIEC PCR St Y.enterocolitica PCR Stool Vibrio (PCR) Stl Vibrio cholerae PCR Stl Norovirus GI/GII PCR Valproic Acid C. difficile Tox B Gene C. difficile Toxin A&B C. difficile Interpret 12/12/23 12/12/23 12/13/23 16:28 20:34 06:19 WBC RBC Hgb Hct MCV MCH MCHC RDW Plt Count MPV Immature Gran % (Auto) Neut % (Auto) Lymph % (Auto) Christian % (Auto) Eos % (Auto) Baso % (Auto) Lymph # (Auto) Christian # (Auto) Eos # (Auto) Baso # (Auto) Abs Immat Gran (auto) Absolute Neuts (auto) Absolute Nucleated RBC Nucleated RBC % (auto) Sodium Potassium Chloride Carbon Dioxide Anion Gap BUN Creatinine Estim Creat Clear Calc Estimated GFR POC Glucose 256 H 194 H 165 H Random Glucose Fasting Glucose Estimat Average Glucose Hemoglobin A1c % Calcium Total Bilirubin Direct Bilirubin AST ALT Alkaline Phosphatase Ammonia Total Protein Albumin Triglycerides Cholesterol LDL Cholesterol, Calc HDL Cholesterol Vitamin B12 Folate TSH Urine Color Urine Appearance Urine pH Ur Specific [place] Urine Protein Urine Glucose (UA) Urine Ketones Urine Blood Urine Nitrite Ur Leukocyte Esterase Urine RBC Urine WBC Ur Squamous Epith Cells Urine Bacteria Hyaline Casts Granular Casts Urine Yeast Stool Occult Blood Stl C. cayetanensis PCR Stool Rotavirus A PCR Stl Adenov F 40 PCR Stool Astrovirus (PCR) Stool Campylobacter PCR Stool Cryptosporidium PCR Stl Sh Tox Pr E STEC PCR Stool E coli O157 PCR Stl Enterotoxigenic E PCR Stool EPEC (PCR) Stool EAEC (PCR) Stl E. histolytica PCR Stool Giardia Lamblia PCR Stl P. shigelloides PCR Stool Salmonella PCR Stool Sapovirus (PCR) Stl Shigella/EIEC PCR St Y.enterocolitica PCR Stool Vibrio (PCR) Stl Vibrio cholerae PCR Stl Norovirus GI/GII PCR Valproic Acid C. difficile Tox B Gene C. difficile Toxin A&B C. difficile Interpret 12/13/23 12/13/23 12/13/23 11:02 16:26 19:57 WBC RBC Hgb Hct MCV MCH MCHC RDW Plt Count MPV Immature Gran % (Auto) Neut % (Auto) Lymph % (Auto) Christian % (Auto) Eos % (Auto) Baso % (Auto) Lymph # (Auto) Christian # (Auto) Eos # (Auto) Baso # (Auto) Abs Immat Gran (auto) Absolute Neuts (auto) Absolute Nucleated RBC Nucleated RBC % (auto) Sodium Potassium Chloride Carbon Dioxide Anion Gap BUN Creatinine Estim Creat Clear Calc Estimated GFR POC Glucose 248 H 247 H 179 H Random Glucose Fasting Glucose Estimat Average Glucose Hemoglobin A1c % Calcium Total Bilirubin Direct Bilirubin AST ALT Alkaline Phosphatase Ammonia Total Protein Albumin Triglycerides Cholesterol LDL Cholesterol, Calc HDL Cholesterol Vitamin B12 Folate TSH Urine Color Urine Appearance Urine pH Ur Specific [place] Urine Protein Urine Glucose (UA) Urine Ketones Urine Blood Urine Nitrite Ur Leukocyte Esterase Urine RBC Urine WBC Ur Squamous Epith Cells Urine Bacteria Hyaline Casts Granular Casts Urine Yeast Stool Occult Blood Stl C. cayetanensis PCR Stool Rotavirus A PCR Stl Adenov F 40 PCR Stool Astrovirus (PCR) Stool Campylobacter PCR Stool Cryptosporidium PCR Stl Sh Tox Pr E STEC PCR Stool E coli O157 PCR Stl Enterotoxigenic E PCR Stool EPEC (PCR) Stool EAEC (PCR) Stl E. histolytica PCR Stool Giardia Lamblia PCR Stl P. shigelloides PCR Stool Salmonella PCR Stool Sapovirus (PCR) Stl Shigella/EIEC PCR St Y.enterocolitica PCR Stool Vibrio (PCR) Stl Vibrio cholerae PCR Stl Norovirus GI/GII PCR Valproic Acid C. difficile Tox B Gene C. difficile Toxin A&B C. difficile Interpret 12/14/23 12/14/23 12/14/23 06:32 07:37 11:48 WBC RBC Hgb Hct MCV MCH MCHC RDW Plt Count MPV Immature Gran % (Auto) Neut % (Auto) Lymph % (Auto) Christian % (Auto) Eos % (Auto) Baso % (Auto) Lymph # (Auto) Christian # (Auto) Eos # (Auto) Baso # (Auto) Abs Immat Gran (auto) Absolute Neuts (auto) Absolute Nucleated RBC Nucleated RBC % (auto) Sodium 139 Potassium 4.2 Chloride 103 Carbon Dioxide 28 Anion Gap 12 BUN 25 H Creatinine 0.84 Estim Creat Clear Calc 39.4 Estimated GFR > 60 POC Glucose 120 H 158 H Random Glucose Fasting Glucose 135 H Estimat Average Glucose Hemoglobin A1c % Calcium 10.0 Total Bilirubin 0.6 Direct Bilirubin AST 43 H ALT 23 Alkaline Phosphatase 101 Ammonia Total Protein 8.0 Albumin 3.0 L Triglycerides Cholesterol LDL Cholesterol, Calc HDL Cholesterol Vitamin B12 Folate TSH Urine Color Urine Appearance Urine pH Ur Specific [place] Urine Protein Urine Glucose (UA) Urine Ketones Urine Blood Urine Nitrite Ur Leukocyte Esterase Urine RBC Urine WBC Ur Squamous Epith Cells Urine Bacteria Hyaline Casts Granular Casts Urine Yeast Stool Occult Blood Stl C. cayetanensis PCR Stool Rotavirus A PCR Stl Adenov F 40/41 PCR Stool Astrovirus (PCR) Stool Campylobacter PCR Stool Cryptosporidium PCR Stl Sh Tox Pr E STEC PCR Stool E coli O157 PCR Stl Enterotoxigenic E PCR Stool EPEC (PCR) Stool EAEC (PCR) Stl E. histolytica PCR Stool Giardia Lamblia PCR Stl P. shigelloides PCR Stool Salmonella PCR Stool Sapovirus (PCR) Stl Shigella/EIEC PCR St Y.enterocolitica PCR Stool Vibrio (PCR) Stl Vibrio cholerae PCR Stl Norovirus GI/GII PCR Valproic Acid C. difficile Tox B Gene C. difficile Toxin A&B C. difficile Interpret 12/14/23 12/14/23 12/15/23 16:05 19:57 06:34 WBC RBC Hgb Hct MCV MCH MCHC RDW Plt Count MPV Immature Gran % (Auto) Neut % (Auto) Lymph % (Auto) Christian % (Auto) Eos % (Auto) Baso % (Auto) Lymph # (Auto) Christian # (Auto) Eos # (Auto) Baso # (Auto) Abs Immat Gran (auto) Absolute Neuts (auto) Absolute Nucleated RBC Nucleated RBC % (auto) Sodium Potassium Chloride Carbon Dioxide Anion Gap BUN Creatinine Estim Creat Clear Calc Estimated GFR POC Glucose 128 H 248 H 92 Random Glucose Fasting Glucose Estimat Average Glucose Hemoglobin A1c % Calcium Total Bilirubin Direct Bilirubin AST ALT Alkaline Phosphatase Ammonia Total Protein Albumin Triglycerides Cholesterol LDL Cholesterol, Calc HDL Cholesterol Vitamin B12 Folate TSH Urine Color Urine Appearance Urine pH Ur Specific [place] Urine Protein Urine Glucose (UA) Urine Ketones Urine Blood Urine Nitrite Ur Leukocyte Esterase Urine RBC Urine WBC Ur Squamous Epith Cells Urine Bacteria Hyaline Casts Granular Casts Urine Yeast Stool Occult Blood Stl C. cayetanensis PCR Stool Rotavirus A PCR Stl Adenov F 40/41 PCR Stool Astrovirus (PCR) Stool Campylobacter PCR Stool Cryptosporidium PCR Stl Sh Tox Pr E STEC PCR Stool E coli O157 PCR Stl Enterotoxigenic E PCR Stool EPEC (PCR) Stool EAEC (PCR) Stl E. histolytica PCR Stool Giardia Lamblia PCR Stl P. shigelloides PCR Stool Salmonella PCR Stool Sapovirus (PCR) Stl Shigella/EIEC PCR St Y.enterocolitica PCR Stool Vibrio (PCR) Stl Vibrio cholerae PCR Stl Norovirus GI/GII PCR Valproic Acid C. difficile Tox B Gene C. difficile Toxin A&B C. difficile Interpret 12/15/23 12/15/23 12/15/23 11:20 16:06 20:24 WBC RBC Hgb Hct MCV MCH MCHC RDW Plt Count MPV Immature Gran % (Auto) Neut % (Auto) Lymph % (Auto) Christian % (Auto) Eos % (Auto) Baso % (Auto) Lymph # (Auto) Christian # (Auto) Eos # (Auto) Baso # (Auto) Abs Immat Gran (auto) Absolute Neuts (auto) Absolute Nucleated RBC Nucleated RBC % (auto) Sodium Potassium Chloride Carbon Dioxide Anion Gap BUN Creatinine Estim Creat Clear Calc Estimated GFR POC Glucose 295 H 142 H 230 H Random Glucose Fasting Glucose Estimat Average Glucose Hemoglobin A1c % Calcium Total Bilirubin Direct Bilirubin AST ALT Alkaline Phosphatase Ammonia Total Protein Albumin Triglycerides Cholesterol LDL Cholesterol, Calc HDL Cholesterol Vitamin B12 Folate TSH Urine Color Urine Appearance Urine pH Ur Specific [place] Urine Protein Urine Glucose (UA) Urine Ketones Urine Blood Urine Nitrite Ur Leukocyte Esterase Urine RBC Urine WBC Ur Squamous Epith Cells Urine Bacteria Hyaline Casts Granular Casts Urine Yeast Stool Occult Blood Stl C. cayetanensis PCR Stool Rotavirus A PCR Stl Adenov F PCR Stool Astrovirus (PCR) Stool Campylobacter PCR Stool Cryptosporidium PCR Stl Sh Tox Pr E STEC PCR Stool E coli O157 PCR Stl Enterotoxigenic E PCR Stool EPEC (PCR) Stool EAEC (PCR) Stl E. histolytica PCR Stool Giardia Lamblia PCR Stl P. shigelloides PCR Stool Salmonella PCR Stool Sapovirus (PCR) Stl Shigella/EIEC PCR St Y.enterocolitica PCR Stool Vibrio (PCR) Stl Vibrio cholerae PCR Stl Norovirus GI/GII PCR Valproic Acid C. difficile Tox B Gene C. difficile Toxin A&B C. difficile Interpret 12/16/23 12/16/23 12/16/23 06:30 11:13 16:19 WBC RBC Hgb Hct MCV MCH MCHC RDW Plt Count MPV Immature Gran % (Auto) Neut % (Auto) Lymph % (Auto) Christian % (Auto) Eos % (Auto) Baso % (Auto) Lymph # (Auto) Christian # (Auto) Eos # (Auto) Baso # (Auto) Abs Immat Gran (auto) Absolute Neuts (auto) Absolute Nucleated RBC Nucleated RBC % (auto) Sodium Potassium Chloride Carbon Dioxide Anion Gap BUN Creatinine Estim Creat Clear Calc Estimated GFR POC Glucose 90 136 H 186 H Random Glucose Fasting Glucose Estimat Average Glucose Hemoglobin A1c % Calcium Total Bilirubin Direct Bilirubin AST ALT Alkaline Phosphatase Ammonia Total Protein Albumin Triglycerides Cholesterol LDL Cholesterol, Calc HDL Cholesterol Vitamin B12 Folate TSH Urine Color Urine Appearance Urine pH Ur Specific [place] Urine Protein Urine Glucose (UA) Urine Ketones Urine Blood Urine Nitrite Ur Leukocyte Esterase Urine RBC Urine WBC Ur Squamous Epith Cells Urine Bacteria Hyaline Casts Granular Casts Urine Yeast Stool Occult Blood Stl C. cayetanensis PCR Stool Rotavirus A PCR Stl Adenov F PCR Stool Astrovirus (PCR) Stool Campylobacter PCR Stool Cryptosporidium PCR Stl Sh Tox Pr E STEC PCR Stool E coli O157 PCR Stl Enterotoxigenic E PCR Stool EPEC (PCR) Stool EAEC (PCR) Stl E. histolytica PCR Stool Giardia Lamblia PCR Stl P. shigelloides PCR Stool Salmonella PCR Stool Sapovirus (PCR) Stl Shigella/EIEC PCR St Y.enterocolitica PCR Stool Vibrio (PCR) Stl Vibrio cholerae PCR Stl Norovirus GI/GII PCR Valproic Acid C. difficile Tox B Gene C. difficile Toxin A&B C. difficile Interpret 12/16/23 12/17/23 12/17/23 20:22 06:40 08:06 WBC RBC Hgb Hct MCV MCH MCHC RDW Plt Count MPV Immature Gran % (Auto) Neut % (Auto) Lymph % (Auto) Christian % (Auto) Eos % (Auto) Baso % (Auto) Lymph # (Auto) Christian # (Auto) Eos # (Auto) Baso # (Auto) Abs Immat Gran (auto) Absolute Neuts (auto) Absolute Nucleated RBC Nucleated RBC % (auto) Sodium Potassium Chloride Carbon Dioxide Anion Gap BUN Creatinine Estim Creat Clear Calc Estimated GFR POC Glucose 196 H 139 H Random Glucose Fasting Glucose Estimat Average Glucose Hemoglobin A1c % Calcium Total Bilirubin Direct Bilirubin AST ALT Alkaline Phosphatase Ammonia Total Protein Albumin Triglycerides Cholesterol LDL Cholesterol, Calc HDL Cholesterol Vitamin B12 Folate TSH Urine Color Urine Appearance Urine pH Ur Specific [place] Urine Protein Urine Glucose (UA) Urine Ketones Urine Blood Urine Nitrite Ur Leukocyte Esterase Urine RBC Urine WBC Ur Squamous Epith Cells Urine Bacteria Hyaline Casts Granular Casts Urine Yeast Stool Occult Blood Stl C. cayetanensis PCR Stool Rotavirus A PCR Stl Adenov F 40/41 PCR Stool Astrovirus (PCR) Stool Campylobacter PCR Stool Cryptosporidium PCR Stl Sh Tox Pr E STEC PCR Stool E coli O157 PCR Stl Enterotoxigenic E PCR Stool EPEC (PCR) Stool EAEC (PCR) Stl E. histolytica PCR Stool Giardia Lamblia PCR Stl P. shigelloides PCR Stool Salmonella PCR Stool Sapovirus (PCR) Stl Shigella/EIEC PCR St Y.enterocolitica PCR Stool Vibrio (PCR) Stl Vibrio cholerae PCR Stl Norovirus GI/GII PCR Valproic Acid 24.9 L C. difficile Tox B Gene C. difficile Toxin A&B C. difficile Interpret 12/17/23 12/17/23 12/18/23 11:34 19:59 06:40 WBC RBC Hgb Hct MCV MCH MCHC RDW Plt Count MPV Immature Gran % (Auto) Neut % (Auto) Lymph % (Auto) Christian % (Auto) Eos % (Auto) Baso % (Auto) Lymph # (Auto) Christian # (Auto) Eos # (Auto) Baso # (Auto) Abs Immat Gran (auto) Absolute Neuts (auto) Absolute Nucleated RBC Nucleated RBC % (auto) Sodium Potassium Chloride Carbon Dioxide Anion Gap BUN Creatinine Estim Creat Clear Calc Estimated GFR POC Glucose 194 H 207 H 146 H Random Glucose Fasting Glucose Estimat Average Glucose Hemoglobin A1c % Calcium Total Bilirubin Direct Bilirubin AST ALT Alkaline Phosphatase Ammonia Total Protein Albumin Triglycerides Cholesterol LDL Cholesterol, Calc HDL Cholesterol Vitamin B12 Folate TSH Urine Color Urine Appearance Urine pH Ur Specific [place] Urine Protein Urine Glucose (UA) Urine Ketones Urine Blood Urine Nitrite Ur Leukocyte Esterase Urine RBC Urine WBC Ur Squamous Epith Cells Urine Bacteria Hyaline Casts Granular Casts Urine Yeast Stool Occult Blood Stl C. cayetanensis PCR Stool Rotavirus A PCR Stl Adenov F 40/41 PCR Stool Astrovirus (PCR) Stool Campylobacter PCR Stool Cryptosporidium PCR Stl Sh Tox Pr E STEC PCR Stool E coli O157 PCR Stl Enterotoxigenic E PCR Stool EPEC (PCR) Stool EAEC (PCR) Stl E. histolytica PCR Stool Giardia Lamblia PCR Stl P. shigelloides PCR Stool Salmonella PCR Stool Sapovirus (PCR) Stl Shigella/EIEC PCR St Y.enterocolitica PCR Stool Vibrio (PCR) Stl Vibrio cholerae PCR Stl Norovirus GI/GII PCR Valproic Acid C. difficile Tox B Gene C. difficile Toxin A&B C. difficile Interpret 12/18/23 12/18/23 12/18/23 11:31 16:32 19:57 WBC RBC Hgb Hct MCV MCH MCHC RDW Plt Count MPV Immature Gran % (Auto) Neut % (Auto) Lymph % (Auto) Christian % (Auto) Eos % (Auto) Baso % (Auto) Lymph # (Auto) Christian # (Auto) Eos # (Auto) Baso # (Auto) Abs Immat Gran (auto) Absolute Neuts (auto) Absolute Nucleated RBC Nucleated RBC % (auto) Sodium Potassium Chloride Carbon Dioxide Anion Gap BUN Creatinine Estim Creat Clear Calc Estimated GFR POC Glucose 149 H 126 H 134 H Random Glucose Fasting Glucose Estimat Average Glucose Hemoglobin A1c % Calcium Total Bilirubin Direct Bilirubin AST ALT Alkaline Phosphatase Ammonia Total Protein Albumin Triglycerides Cholesterol LDL Cholesterol, Calc HDL Cholesterol Vitamin B12 Folate TSH Urine Color Urine Appearance Urine pH Ur Specific [place] Urine Protein Urine Glucose (UA) Urine Ketones Urine Blood Urine Nitrite Ur Leukocyte Esterase Urine RBC Urine WBC Ur Squamous Epith Cells Urine Bacteria Hyaline Casts Granular Casts Urine Yeast Stool Occult Blood Stl C. cayetanensis PCR Stool Rotavirus A PCR Stl Adenov F PCR Stool Astrovirus (PCR) Stool Campylobacter PCR Stool Cryptosporidium PCR Stl Sh Tox Pr E STEC PCR Stool E coli O157 PCR Stl Enterotoxigenic E PCR Stool EPEC (PCR) Stool EAEC (PCR) Stl E. histolytica PCR Stool Giardia Lamblia PCR Stl P. shigelloides PCR Stool Salmonella PCR Stool Sapovirus (PCR) Stl Shigella/EIEC PCR St Y.enterocolitica PCR Stool Vibrio (PCR) Stl Vibrio cholerae PCR Stl Norovirus GI/GII PCR Valproic Acid C. difficile Tox B Gene C. difficile Toxin A&B C. difficile Interpret 12/19/23 12/19/23 12/19/23 06:12 11:04 16:05 WBC RBC Hgb Hct MCV MCH MCHC RDW Plt Count MPV Immature Gran % (Auto) Neut % (Auto) Lymph % (Auto) Christian % (Auto) Eos % (Auto) Baso % (Auto) Lymph # (Auto) Christian # (Auto) Eos # (Auto) Baso # (Auto) Abs Immat Gran (auto) Absolute Neuts (auto) Absolute Nucleated RBC Nucleated RBC % (auto) Sodium Potassium Chloride Carbon Dioxide Anion Gap BUN Creatinine Estim Creat Clear Calc Estimated GFR POC Glucose 123 H 116 H 121 H Random Glucose Fasting Glucose Estimat Average Glucose Hemoglobin A1c % Calcium Total Bilirubin Direct Bilirubin AST ALT Alkaline Phosphatase Ammonia Total Protein Albumin Triglycerides Cholesterol LDL Cholesterol, Calc HDL Cholesterol Vitamin B12 Folate TSH Urine Color Urine Appearance Urine pH Ur Specific [place] Urine Protein Urine Glucose (UA) Urine Ketones Urine Blood Urine Nitrite Ur Leukocyte Esterase Urine RBC Urine WBC Ur Squamous Epith Cells Urine Bacteria Hyaline Casts Granular Casts Urine Yeast Stool Occult Blood Stl C. cayetanensis PCR Stool Rotavirus A PCR Stl Adenov F PCR Stool Astrovirus (PCR) Stool Campylobacter PCR Stool Cryptosporidium PCR Stl Sh Tox Pr E STEC PCR Stool E coli O157 PCR Stl Enterotoxigenic E PCR Stool EPEC (PCR) Stool EAEC (PCR) Stl E. histolytica PCR Stool Giardia Lamblia PCR Stl P. shigelloides PCR Stool Salmonella PCR Stool Sapovirus (PCR) Stl Shigella/EIEC PCR St Y.enterocolitica PCR Stool Vibrio (PCR) Stl Vibrio cholerae PCR Stl Norovirus GI/GII PCR Valproic Acid C. difficile Tox B Gene C. difficile Toxin A&B C. difficile Interpret 12/19/23 12/20/23 12/20/23 19:35 06:05 11:29 WBC RBC Hgb Hct MCV MCH MCHC RDW Plt Count MPV Immature Gran % (Auto) Neut % (Auto) Lymph % (Auto) Christian % (Auto) Eos % (Auto) Baso % (Auto) Lymph # (Auto) Christian # (Auto) Eos # (Auto) Baso # (Auto) Abs Immat Gran (auto) Absolute Neuts (auto) Absolute Nucleated RBC Nucleated RBC % (auto) Sodium Potassium Chloride Carbon Dioxide Anion Gap BUN Creatinine Estim Creat Clear Calc Estimated GFR POC Glucose 275 H 111 192 H Random Glucose Fasting Glucose Estimat Average Glucose Hemoglobin A1c % Calcium Total Bilirubin Direct Bilirubin AST ALT Alkaline Phosphatase Ammonia Total Protein Albumin Triglycerides Cholesterol LDL Cholesterol, Calc HDL Cholesterol Vitamin B12 Folate TSH Urine Color Urine Appearance Urine pH Ur Specific [place] Urine Protein Urine Glucose (UA) Urine Ketones Urine Blood Urine Nitrite Ur Leukocyte Esterase Urine RBC Urine WBC Ur Squamous Epith Cells Urine Bacteria Hyaline Casts Granular Casts Urine Yeast Stool Occult Blood Stl C. cayetanensis PCR Stool Rotavirus A PCR Stl Adenov F 40/41 PCR Stool Astrovirus (PCR) Stool Campylobacter PCR Stool Cryptosporidium PCR Stl Sh Tox Pr E STEC PCR Stool E coli O157 PCR Stl Enterotoxigenic E PCR Stool EPEC (PCR) Stool EAEC (PCR) Stl E. histolytica PCR Stool Giardia Lamblia PCR Stl P. shigelloides PCR Stool Salmonella PCR Stool Sapovirus (PCR) Stl Shigella/EIEC PCR St Y.enterocolitica PCR Stool Vibrio (PCR) Stl Vibrio cholerae PCR Stl Norovirus GI/GII PCR Valproic Acid C. difficile Tox B Gene C. difficile Toxin A&B C. difficile Interpret 12/20/23 12/20/23 12/21/23 16:28 21:00 06:42 WBC RBC Hgb Hct MCV MCH MCHC RDW Plt Count MPV Immature Gran % (Auto) Neut % (Auto) Lymph % (Auto) Christian % (Auto) Eos % (Auto) Baso % (Auto) Lymph # (Auto) Christian # (Auto) Eos # (Auto) Baso # (Auto) Abs Immat Gran (auto) Absolute Neuts (auto) Absolute Nucleated RBC Nucleated RBC % (auto) Sodium Potassium Chloride Carbon Dioxide Anion Gap BUN Creatinine Estim Creat Clear Calc Estimated GFR POC Glucose 187 H 253 H 131 H Random Glucose Fasting Glucose Estimat Average Glucose Hemoglobin A1c % Calcium Total Bilirubin Direct Bilirubin AST ALT Alkaline Phosphatase Ammonia Total Protein Albumin Triglycerides Cholesterol LDL Cholesterol, Calc HDL Cholesterol Vitamin B12 Folate TSH Urine Color Urine Appearance Urine pH Ur Specific [place] Urine Protein Urine Glucose (UA) Urine Ketones Urine Blood Urine Nitrite Ur Leukocyte Esterase Urine RBC Urine WBC Ur Squamous Epith Cells Urine Bacteria Hyaline Casts Granular Casts Urine Yeast Stool Occult Blood Stl C. cayetanensis PCR Stool Rotavirus A PCR Stl Adenov F 40/41 PCR Stool Astrovirus (PCR) Stool Campylobacter PCR Stool Cryptosporidium PCR Stl Sh Tox Pr E STEC PCR Stool E coli O157 PCR Stl Enterotoxigenic E PCR Stool EPEC (PCR) Stool EAEC (PCR) Stl E. histolytica PCR Stool Giardia Lamblia PCR Stl P. shigelloides PCR Stool Salmonella PCR Stool Sapovirus (PCR) Stl Shigella/EIEC PCR St Y.enterocolitica PCR Stool Vibrio (PCR) Stl Vibrio cholerae PCR Stl Norovirus GI/GII PCR Valproic Acid C. difficile Tox B Gene C. difficile Toxin A&B C. difficile Interpret 12/21/23 12/21/23 12/21/23 11:17 16:05 19:55 WBC RBC Hgb Hct MCV MCH MCHC RDW Plt Count MPV Immature Gran % (Auto) Neut % (Auto) Lymph % (Auto) Christian % (Auto) Eos % (Auto) Baso % (Auto) Lymph # (Auto) Christian # (Auto) Eos # (Auto) Baso # (Auto) Abs Immat Gran (auto) Absolute Neuts (auto) Absolute Nucleated RBC Nucleated RBC % (auto) Sodium Potassium Chloride Carbon Dioxide Anion Gap BUN Creatinine Estim Creat Clear Calc Estimated GFR POC Glucose 234 H 155 H 209 H Random Glucose Fasting Glucose Estimat Average Glucose Hemoglobin A1c % Calcium Total Bilirubin Direct Bilirubin AST ALT Alkaline Phosphatase Ammonia Total Protein Albumin Triglycerides Cholesterol LDL Cholesterol, Calc HDL Cholesterol Vitamin B12 Folate TSH Urine Color Urine Appearance Urine pH Ur Specific [place] Urine Protein Urine Glucose (UA) Urine Ketones Urine Blood Urine Nitrite Ur Leukocyte Esterase Urine RBC Urine WBC Ur Squamous Epith Cells Urine Bacteria Hyaline Casts Granular Casts Urine Yeast Stool Occult Blood Stl C. cayetanensis PCR Stool Rotavirus A PCR Stl Adenov F PCR Stool Astrovirus (PCR) Stool Campylobacter PCR Stool Cryptosporidium PCR Stl Sh Tox Pr E STEC PCR Stool E coli O157 PCR Stl Enterotoxigenic E PCR Stool EPEC (PCR) Stool EAEC (PCR) Stl E. histolytica PCR Stool Giardia Lamblia PCR Stl P. shigelloides PCR Stool Salmonella PCR Stool Sapovirus (PCR) Stl Shigella/EIEC PCR St Y.enterocolitica PCR Stool Vibrio (PCR) Stl Vibrio cholerae PCR Stl Norovirus GI/GII PCR Valproic Acid C. difficile Tox B Gene C. difficile Toxin A&B C. difficile Interpret 12/22/23 12/22/23 12/22/23 06:35 11:29 16:31 WBC RBC Hgb Hct MCV MCH MCHC RDW Plt Count MPV Immature Gran % (Auto) Neut % (Auto) Lymph % (Auto) Christian % (Auto) Eos % (Auto) Baso % (Auto) Lymph # (Auto) Christian # (Auto) Eos # (Auto) Baso # (Auto) Abs Immat Gran (auto) Absolute Neuts (auto) Absolute Nucleated RBC Nucleated RBC % (auto) Sodium Potassium Chloride Carbon Dioxide Anion Gap BUN Creatinine Estim Creat Clear Calc Estimated GFR POC Glucose 131 H 224 H 194 H Random Glucose Fasting Glucose Estimat Average Glucose Hemoglobin A1c % Calcium Total Bilirubin Direct Bilirubin AST ALT Alkaline Phosphatase Ammonia Total Protein Albumin Triglycerides Cholesterol LDL Cholesterol, Calc HDL Cholesterol Vitamin B12 Folate TSH Urine Color Urine Appearance Urine pH Ur Specific [place] Urine Protein Urine Glucose (UA) Urine Ketones Urine Blood Urine Nitrite Ur Leukocyte Esterase Urine RBC Urine WBC Ur Squamous Epith Cells Urine Bacteria Hyaline Casts Granular Casts Urine Yeast Stool Occult Blood Stl C. cayetanensis PCR Stool Rotavirus A PCR Stl Adenov F PCR Stool Astrovirus (PCR) Stool Campylobacter PCR Stool Cryptosporidium PCR Stl Sh Tox Pr E STEC PCR Stool E coli O157 PCR Stl Enterotoxigenic E PCR Stool EPEC (PCR) Stool EAEC (PCR) Stl E. histolytica PCR Stool Giardia Lamblia PCR Stl P. shigelloides PCR Stool Salmonella PCR Stool Sapovirus (PCR) Stl Shigella/EIEC PCR St Y.enterocolitica PCR Stool Vibrio (PCR) Stl Vibrio cholerae PCR Stl Norovirus GI/GII PCR Valproic Acid C. difficile Tox B Gene C. difficile Toxin A&B C. difficile Interpret 12/22/23 12/23/23 19:59 05:19 WBC RBC Hgb Hct MCV MCH MCHC RDW Plt Count MPV Immature Gran % (Auto) Neut % (Auto) Lymph % (Auto) Christian % (Auto) Eos % (Auto) Baso % (Auto) Lymph # (Auto) Christian # (Auto) Eos # (Auto) Baso # (Auto) Abs Immat Gran (auto) Absolute Neuts (auto) Absolute Nucleated RBC Nucleated RBC % (auto) Sodium Potassium Chloride Carbon Dioxide Anion Gap BUN Creatinine Estim Creat Clear Calc Estimated GFR POC Glucose 255 H 121 H Random Glucose Fasting Glucose Estimat Average Glucose Hemoglobin A1c % Calcium Total Bilirubin Direct Bilirubin AST ALT Alkaline Phosphatase Ammonia Total Protein Albumin Triglycerides Cholesterol LDL Cholesterol, Calc HDL Cholesterol Vitamin B12 Folate TSH Urine Color Urine Appearance Urine pH Ur Specific [place] Urine Protein Urine Glucose (UA) Urine Ketones Urine Blood Urine Nitrite Ur Leukocyte Esterase Urine RBC Urine WBC Ur Squamous Epith Cells Urine Bacteria Hyaline Casts Granular Casts Urine Yeast Stool Occult Blood Stl C. cayetanensis PCR Stool Rotavirus A PCR Stl Adenov F 40/41 PCR Stool Astrovirus (PCR) Stool Campylobacter PCR Stool Cryptosporidium PCR Stl Sh Tox Pr E STEC PCR Stool E coli O157 PCR Stl Enterotoxigenic E PCR Stool EPEC (PCR) Stool EAEC (PCR) Stl E. histolytica PCR Stool Giardia Lamblia PCR Stl P. shigelloides PCR Stool Salmonella PCR Stool Sapovirus (PCR) Stl Shigella/EIEC PCR St Y.enterocolitica PCR Stool Vibrio (PCR) Stl Vibrio cholerae PCR Stl Norovirus GI/GII PCR Valproic Acid C. difficile Tox B Gene C. difficile Toxin A&B C. difficile Interpret Airway Mallampati Class: II (edentulous on bottom) TM Dist: >3cm Neck ROM: Full Heart: rrr Lungs: cta Assessment and Plan Assessment Anesthesia Assessment: Anesthesia Plan Discussed and Chart Reviewed Final Anesthetic Review Family History of Problems with Anesthesia: No History of Problems with Anesthesia: No NPO: Yes ASA Class: III Final Preanesthetic Review: No Changes in Pt Med Stat, Meds/Allgs Chart Reviewed and Consent Obtained/Reviewed Patient Risk: High Procedure Risk: Intermediate Anesthetic Plan Anesthetic Plan: GA (spoke with interpreter and translator to about increased risk for cardiac event secondary to arythimia during prior ECT) Disposition: Standard PACU
--- NOTE | 2023-12-23 07:04 | MHC.SHP ---
Pre-Procedural Eval Section A - 24 Hr Update-Section A only Date of Service: 12/23/23 The patient is an INPATIENT: Yes Changes since office visit: No Cold of Flu in the past 2 weeks, No New Medical Problems, No Changes in Medication and No Patient answered all questions The patient has been examined within 24 hours of the surgical procedure. The History & Physical has been completed within 30 days and I have reviewed it.: Yes Section B - Complete if H&P > 30 days Chief Complaint: Major depressive disorder, severe, recurrent Allergies: Allergies Allergy/AdvReac Type Severity Reaction Status Date / Time atropine Allergy Unknown Shortness Verified 12/02/23 23:30 of Breath enoxaparin [From Lovenox] Allergy Unknown Unknown Verified 12/02/23 23:30 penicillin V Allergy Unknown Unknown Verified 03/19/23 07:30 pseudoephedrine [Aprodine] Allergy Unknown Unknown Verified 03/19/23 07:30 triprolidine [Aprodine] Allergy Unknown Unknown Verified 03/19/23 07:30 Plan I have reviewed the history and physical and performed a pertinent physical examination on my patient. No changes have occurred unless specified. Time Spent With Patient Time: Total time managing care of this patient today ____ minutes.
--- NOTE | 2023-12-23 08:00 | HO.ECTPROC ---
ECT Procedure Note Diagnosis/Treatment Date of Service: 12/23/23 Diagnosis: Major Depressive Disorder and Catatonia Previous ECT Date: 12/18/23 Current Treatment Number: 3 Treatment: Series Interval Clinical Notes: The patient has been slightly more verbal, but still very hypoactive. Cardiology cleared her. Unable to assess previous ECT or side effects since the patietn was minimally verbal. ECT done as usual, no complications woke up well. Time: Total time managing care of this patient today ____ minutes. ECT Settings Device: THYMATRON DGx Electrode Placement: Bitemporal Program/Pulse Width: 0.50 Energy Percent: 100 Seizure Duration By EEG (in seconds): 51 By Motor Observation (in seconds): 17 Medications Administration General Anesthetic: Etomidate (12) Muscle Relaxant: Succinylcholine (80) Ancillary Medications Cardiovascular Medications: Glycopyrrolate Airway Management Airway Management: Bag Mask Ventilation Treatment Recommendations No Changes Recommended: No change Pt Tolerated Procedure w/o Issue: Yes
[2023-12-23 11:24] LABS: Glucose, Whole Blood 124 mg/dL (60-115)
[2023-12-23] MEDS: Losartan Potassium 50 MG TABLET 100 MG PO (11:37)
[2023-12-23] MEDS: Furosemide 20 MG TABLET PO (11:37)
[2023-12-23] MEDS: Anastrozole 1 MG TABLET PO (11:37)
[2023-12-23] MEDS: amLODIPine Besylate 5 MG TABLET PO (11:38)
[2023-12-23] MEDS: Aspirin 81 MG TAB.CHEW PO (11:38)
--- NOTE | 2023-12-23 14:09 | HO.PSYCHPN ---
Subjective Subjective Date of Service: 12/23/23 Reason For Visit: Major depressive disorder, severe, recurrent Subjective Notes: Conditional Voluntary Healthcare Proxy: Yes Interim History: The nursing staff reported the patient has been mostly mute, slept well most of the night. Today she had ECT in the morning with no complications. On interview the patient reported that she is not feeling well she was confused unable to understand that she had a Meek catheter. Overall, she is slightly more verbal Mental Status Exam Mental Status Exam Patient Appearance: Appropriate Patient Orientation: Person and Situation Level of Consciousness: Awake and Appropriate Patient Behavior: Guarded and Passive Mood Description: Withdrawn Affect Description: Constricted Patient Cognition Impaired: Yes Ability to Follow Directions: Good Speech Pattern: Clear Hallucinations: None Delusions: Not Present Thought Process: Distracted and Slowed Thinking Thought Content: positive for Poverty of Content and positive for Thought Blocking Judgement: Fair Diagnostics Vital Signs (24Hr): Vital Signs - 24 hr 12/22/23 20:00 12/23/23 05:14 12/23/23 06:49 Temperature 98.1 F 97.8 F 98 F Pulse Rate 70 56 53 Respiratory Rate 18 16 16 Blood Pressure 117/56 L 100/53 L 123/47 L Pulse Oximetry 96 97 96 Oxygen Delivery Method Room Air Room Air Oxygen Flow Rate 12/23/23 08:00 12/23/23 08:05 12/23/23 08:10 Temperature 96.9 F 97.3 F Pulse Rate 66 64 95 Respiratory Rate 16 20 16 Blood Pressure 141/66 H 154/53 H 139/60 Pulse Oximetry 98 100 100 Oxygen Delivery Method Room Air Nasal Cannula with ETCO2 Nasal Cannula with ETCO2 Oxygen Flow Rate 2 2 12/23/23 08:15 12/23/23 08:20 12/23/23 08:35 Temperature 97.3 F Pulse Rate 110 H 103 H 95 Respiratory Rate 16 17 17 Blood Pressure 138/65 133/65 127/48 L Pulse Oximetry 100 100 98 Oxygen Delivery Method Nasal Cannula with ETCO2 Nasal Cannula with ETCO2 Room Air Oxygen Flow Rate 2 2 12/23/23 11:37 12/23/23 11:37 12/23/23 11:37 Temperature 96.9 F Pulse Rate 66 Respiratory Rate 16 Blood Pressure 141/66 H 141/66 H 141/66 H Pulse Oximetry Oxygen Delivery Method Room Air Oxygen Flow Rate 12/23/23 11:38 Temperature Pulse Rate Respiratory Rate Blood Pressure 141/66 H Pulse Oximetry Oxygen Delivery Method Oxygen Flow Rate BMI result Body Mass Index 20.1 Labs 12/09/23 09:57 12/14/23 07:37 Labs: Laboratory Results - last 48 hr 12/21/23 12/21/23 12/22/23 16:05 19:55 06:35 POC Glucose 155 H 209 H 131 H 12/22/23 12/22/23 12/22/23 11:29 16:31 19:59 POC Glucose 224 H 194 H 255 H 12/23/23 12/23/23 05:19 11:21 POC Glucose 121 H 124 H Imaging Radiology Impressions: ITS Impressions Chest X-Ray 12/03/23 12:20 IMPRESSION: 1. Chronic interstitial prominence without focal consolidative airspace opacity. 2. Densities along the left lower chest which may represent pleural calcifications versus soft tissue calcifications. Correlation with lateral radiograph could help further evaluate. Electronically signed by: Viral Smallwood MD 12/03/2023 01:33 PM EDT RP Head CT 12/03/23 13:17 IMPRESSION: 1. No acute intracranial abnormalities. No intracranial hemorrhage or mass effect. 2. Moderate small vessel ischemic changes in the hemispheric white matter. 3. 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 4. Age advanced cerebral and cerebellar involutional changes with prominent ventricles. Cannot definitively exclude a component of communicating hydrocephalus given the appearance. Head CT 12/10/23 21:05 IMPRESSION: No acute intracranial abnormality including hemorrhage, mass effect, hydrocephalus, or acute territorial edematous infarction. Electronically signed by: Juan Alberto Murdock MD 12/10/2023 10:07 PM EDT RP Medications Medications Current Medications Acetaminophen (Acetaminophen 325 Mg Tablet) 650 mg PO Q6H PRN PRN Reason: Headache/Pain Mild Scale (1-3) Al Hydroxide/Mg Hydroxide (Magnesium Hydrox/Alum Hydrox 30 Ml Oral.Susp) 30 ml PO Q6H PRN PRN Reason: Heartburn/Nausea Amlodipine Besylate (Amlodipine Besylate 5 Mg Tablet) 5 mg PO DAILY TOVA; Protocol Last Admin: 12/23/23 11:38 Dose: 5 mg Anastrozole (Anastrozole 1 Mg Tablet) 1 mg PO DAILY [facility] Last Admin: 12/23/23 11:37 Dose: 1 mg Aspirin (Aspirin 81 Mg Tab.Chew) 81 mg PO DAILY [facility] Last Admin: 12/23/23 11:38 Dose: 81 mg Atorvastatin Calcium (Atorvastatin Calcium 10 Mg Tablet) 10 mg PO BEDTIME [facility] Last Admin: 12/22/23 21:21 Dose: Not Given Ferrous Sulfate (Ferrous Sulfate 324 Mg Tablet.Dr) 324 mg PO DAILY [facility] Last Admin: 12/23/23 11:39 Dose: Not Given Furosemide (Furosemide 20 Mg Tablet) 20 mg PO DAILY [facility]; Protocol Last Admin: 12/23/23 11:37 Dose: 20 mg Glucose (Glucose Gel 15 Gm Gel..Gram.) 15 gm PO Q15M PRN; Protocol PRN Reason: per Hypoglycemia Standing Ord. Dextrose (D10) 250 mls @ 750 mls/hr IV Q15M PRN; Protocol PRN Reason: per Hypoglycemia Standing Ord. Insulin Glargine (Insulin Glargine,Hum.Rec.Anlog 100 Unit/Ml 10 Ml Vial) 6 unit SUBCUT BEDTIME [facility] Last Admin: 12/22/23 21:18 Dose: 6 unit Insulin Human Lispro (Insulin Lispro 100 Unit/Ml 3 Ml Vial) 0 unit SUBCUT QIDACHS [facility]; Protocol Last Admin: 12/23/23 11:39 Dose: Not Given Loratadine (Loratadine 10 Mg Tablet) 10 mg PO BEDTIME [facility] Last Admin: 12/22/23 21:20 Dose: 10 mg Losartan Potassium (Losartan Potassium 50 Mg Tablet) 100 mg PO DAILY [facility]; Protocol Last Admin: 12/23/23 11:37 Dose: 100 mg Magnesium Hydroxide (Milk Of Magnesia 30 Ml Oral.Susp) 30 ml PO DAILY PRN PRN Reason: Constipation Magnesium Oxide (Magnesium Oxide 400 Mg Tablet) 400 mg PO BID [facility] Last Admin: 12/23/23 11:39 Dose: Not Given Mirtazapine (Mirtazapine 30 Mg Tablet) 30 mg PO BEDTIME [facility] Last Admin: 12/22/23 21:20 Dose: 30 mg Multivitamins/Vitamin C (Multivitamin Tablet) 1 tab PO DAILY [facility] Last Admin: 12/23/23 11:39 Dose: Not Given Nicotine Polacrilex (Nicotine Polacrilex 2 Mg Gum) 4 mg BUCCAL Q2H PRN PRN Reason: Nicotine Cravings Omeprazole (Omeprazole 20 Mg Capsule.) 20 mg PO DAILY@0630 [facility] Last Admin: 12/23/23 06:21 Dose: Not Given Risperidone (Risperidone 0.5 Mg Tablet) 0.5 mg PO BID PRN PRN Reason: Restlessness Thiamine HCl (Thiamine Hcl 100 Mg Tablet) 100 mg PO DAILY [facility] Last Admin: 12/23/23 11:39 Dose: Not Given Trazodone HCl (Trazodone Hcl 50 Mg Tablet) 50 mg PO BEDTIME PRN PRN Reason: Insomnia Last Admin: 12/08/23 22:06 Dose: 50 mg Valproic Acid (Valproic Acid (As Sodium Salt) 250 Mg/5 Ml Solution) 250 mg PO BID [facility] Last Admin: 12/23/23 11:35 Dose: 250 mg Allergies Allergies Allergy/AdvReac Type Severity Reaction Status Date / Time atropine Allergy Unknown Shortness Verified 12/02/23 23:30 of Breath enoxaparin [From Lovenox] Allergy Unknown Unknown Verified 12/02/23 23:30 penicillin V Allergy Unknown Unknown Verified 03/19/23 07:30 pseudoephedrine [Aprodine] Allergy Unknown Unknown Verified 03/19/23 07:30 triprolidine [Aprodine] Allergy Unknown Unknown Verified 03/19/23 07:30 Assessment & Plan Assessment & Plan (1) Major depressive disorder with psychotic features: Status: Acute Code(s): F32.3 - Major depressive disorder, single episode, severe with psychotic features Assessment and Plan: 12/15/23: Continue tx plan Plan 73-year-old female with history of insulin-dependent type 2 diabetes, hypertension, hyperlipidemia, history of C diff colitis, hypothyroidism, heart failure preserved ejection fraction, cirrhosis admitted to [facility] for catatonia with consult placed to hospitalist service for ect risk stratification. Pt with class II risk on revised cardiac risk index given history of CHF though is clinically euvolemic on exam. Lungs are clear. Has known but no murmurs heard on exam. Would recommend checking EKG to assess for ECT prolongation prior to ECT treatment. Unable to assess ROS. Based on RCRI and known history of ECT with good tolerance there does not appear to be any acute medical contraindication that should preclude patient from undergoing ect. Appropriate anesthesia precautions should be taken given known history of BASIL. Pt also noted to have equal but fixed pupils on exam which was not noted on initial H&P. She is catatonic and unable to participate in further CN exam or provide history. Did have Head CT on 12/02 negative for acute intracranial abnormalities which showed moderate small-vessel ischemic changes in hemispheric white matter numerous old lacunar infarcts as well as age advanced cerebral and cerebellar involutional changes with prominent ventricles. At this time, recommend repeating head CT and can consider Neurology evaluation at discretion of psychiatrist Will continue following for results Plan 1. Continue with same treatment. 2. Continue with ECT as scheduled. 3. Cardiology has cleared her. Reason for continued inpatient stay Substantial Risk for: inability to function, rapid decompensation and med/psych decompensation Time Spent With Patient Time: Total time managing care of this patient today __20__ minutes.
[2023-12-23 16:13] LABS: Glucose, Whole Blood 132 mg/dL (60-115)
[2023-12-23 20:34] LABS: Glucose, Whole Blood 308 mg/dL (60-115)
[2023-12-23] MEDS: Atorvastatin Calcium 10 MG TABLET PO (20:59)
[2023-12-23] MEDS: Mirtazapine 30 MG TABLET PO (20:59)
[2023-12-23] MEDS: Loratadine 10 MG TABLET PO (20:59)
[2023-12-23] MEDS: Magnesium Oxide 400 MG TABLET PO (20:59)
[2023-12-23] MEDS: Insulin Glargine,Hum.rec.anlog 100 UNIT/ML 10 ML VIAL 6 UNIT SUBCUT (21:03)
[2023-12-23] MEDS: Insulin Lispro 100 UNIT/ML 3 ML VIAL SUBCUT (21:04)
[2023-12-24] MEDS: Omeprazole 20 MG CAPSULE.DR PO (06:34)
[2023-12-24 07:50] LABS: Glucose, Whole Blood 141 mg/dL (60-115)
[2023-12-24 07:50] LABS: Glucose, Whole Blood 144 mg/dL (60-115)
[2023-12-24 08:45] VITALS: BP 107/55; PULSE 67; RESP 15; TEMP 36.9; O2SAT 98
[2023-12-24] MEDS: Ferrous Sulfate 324 MG TABLET.DR PO (08:47)
[2023-12-24] MEDS: Aspirin 81 MG TAB.CHEW PO (08:47)
[2023-12-24] MEDS: Anastrozole 1 MG TABLET PO (08:47)
[2023-12-24] MEDS: Thiamine HCL 100 MG TABLET PO (09:19)
[2023-12-24] MEDS: Furosemide 20 MG TABLET PO (09:20)
[2023-12-24] MEDS: Magnesium Oxide 400 MG TABLET PO ×2 (09:21→20:44)
[2023-12-24 11:32] LABS: Glucose, Whole Blood 437 mg/dL (60-115)
--- NOTE | 2023-12-24 11:37 | PC.NURSE ---
This abstract writer checked pt.'s BG for lunch and the reading was [id number]. This abstract writer contacted Dr Yung via [facility], and he ordered the 10 units of Admelog regardless of if she eats lunch or not. This abstract writer provided pt with the 10 units of Amelog.
[2023-12-24] MEDS: Insulin Lispro 100 UNIT/ML 3 ML VIAL SUBCUT ×2 (11:45→20:53)
--- NOTE | 2023-12-24 12:18 | HO.PSYCHPN ---
Subjective Subjective Date of Service: 12/24/23 Reason For Visit: Major depressive disorder, severe, recurrent Subjective Notes: Conditional Voluntary Interim History: The nursing staff reported that the patient has been in bed most of the time, nearly catatonic. Slept well On interview, the patient is minimally engagable. The nursers reported at 11 AM FBS over 400 mg, coverage given. Mental Status Exam Mental Status Exam Patient Appearance: Well Grooomed and Appropriate Patient Orientation: Person and Situation Level of Consciousness: Awake and Appropriate Patient Behavior: Guarded and Passive Mood Description: Withdrawn Affect Description: Constricted Patient Cognition Impaired: Yes Ability to Follow Directions: Good Speech Pattern: Clear Hallucinations: None Delusions: Not Present Thought Process: Slowed Thinking Thought Content: positive for Priddy, positive for Poverty of Content and positive for Thought Blocking Judgement: Poor Diagnostics Vital Signs (24Hr): Vital Signs - 24 hr 12/23/23 20:00 12/24/23 08:45 Temperature 97.8 F 98.4 F Pulse Rate 73 67 Respiratory Rate 16 15 Blood Pressure 107/53 L 107/55 L Pulse Oximetry 97 98 Oxygen Delivery Method Room Air Room Air BMI result Body Mass Index 20.1 Labs 12/09/23 09:57 12/14/23 07:37 Labs: Laboratory Results - last 48 hr 12/22/23 12/22/23 12/23/23 16:31 19:59 05:19 POC Glucose 194 H 255 H 121 H 12/23/23 12/23/23 12/23/23 11:21 16:07 20:29 POC Glucose 124 H 132 H 308 H 12/24/23 12/24/23 12/24/23 06:20 07:46 11:28 POC Glucose 144 H 141 H 437 H* Imaging Radiology Impressions: ITS Impressions Chest X-Ray 12/03/23 12:20 IMPRESSION: 1. Chronic interstitial prominence without focal consolidative airspace opacity. 2. Densities along the left lower chest which may represent pleural calcifications versus soft tissue calcifications. Correlation with lateral radiograph could help further evaluate. Electronically signed by: Viral Smallwood MD 12/03/2023 01:[address] 12/03/23 13:17 IMPRESSION: 1. No acute intracranial abnormalities. No intracranial hemorrhage or mass effect. 2. Moderate small vessel ischemic changes in the hemispheric white matter. 3. 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 4. Age advanced cerebral and cerebellar involutional changes with prominent ventricles. Cannot definitively exclude a component of communicating hydrocephalus given the appearance. Head CT 12/10/23 21:05 IMPRESSION: No acute intracranial abnormality including hemorrhage, mass effect, hydrocephalus, or acute territorial edematous infarction. Electronically signed by: Juan Alberto Murdock MD 12/10/2023 10:07 PM EDT Medications Medications Current Medications Acetaminophen (Acetaminophen 325 Mg Tablet) 650 mg PO Q6H PRN PRN Reason: Headache/Pain Mild Scale (1-3) Al Hydroxide/Mg Hydroxide (Magnesium Hydrox/Alum Hydrox 30 Ml Oral.Susp) 30 ml PO Q6H PRN PRN Reason: Heartburn/Nausea Amlodipine Besylate (Amlodipine Besylate 5 Mg Tablet) 5 mg PO DAILY TOVA; Protocol Last Admin: 12/24/23 09:22 Dose: Not Given Anastrozole (Anastrozole 1 Mg Tablet) 1 mg PO DAILY TOVA Last Admin: 12/24/23 08:47 Dose: 1 mg Aspirin (Aspirin 81 Mg Tab.Chew) 81 mg PO DAILY TOVA Last Admin: 12/24/23 08:47 Dose: 81 mg Atorvastatin Calcium (Atorvastatin Calcium 10 Mg Tablet) 10 mg PO BEDTIME TOVA Last Admin: 12/23/23 20:59 Dose: 10 mg Ferrous Sulfate (Ferrous Sulfate 324 Mg Tablet.Dr) 324 mg PO DAILY TOVA Last Admin: 12/24/23 08:47 Dose: 324 mg Furosemide (Furosemide 20 Mg Tablet) 20 mg PO DAILY TOVA; Protocol Last Admin: 12/24/23 09:20 Dose: 20 mg Glucose (Glucose Gel 15 Gm Gel..Gram.) 15 gm PO Q15M PRN; Protocol PRN Reason: per Hypoglycemia Standing Ord. Dextrose (D10) 250 mls @ 750 mls/hr IV Q15M PRN; Protocol PRN Reason: per Hypoglycemia Standing Ord. Insulin Glargine (Insulin Glargine,Hum.Rec.Anlog 100 Unit/Ml 10 Ml Vial) 6 unit SUBCUT BEDTIME TOVA Last Admin: 12/23/23 21:03 Dose: 6 unit Insulin Human Lispro (Insulin Lispro 100 Unit/Ml 3 Ml Vial) 0 unit SUBCUT QIDACHS TOVA; Protocol Last Admin: 12/24/23 09:00 Dose: Not Given Loratadine (Loratadine 10 Mg Tablet) 10 mg PO BEDTIME [facility] Last Admin: 12/23/23 20:59 Dose: 10 mg Losartan Potassium (Losartan Potassium 50 Mg Tablet) 100 mg PO DAILY [facility]; Protocol Last Admin: 12/24/23 09:22 Dose: Not Given Magnesium Hydroxide (Milk Of Magnesia 30 Ml Oral.Susp) 30 ml PO DAILY PRN PRN Reason: Constipation Magnesium Oxide (Magnesium Oxide 400 Mg Tablet) 400 mg PO BID [facility] Last Admin: 12/24/23 09:21 Dose: 400 mg Mirtazapine (Mirtazapine 30 Mg Tablet) 30 mg PO BEDTIME [facility] Last Admin: 12/23/23 20:59 Dose: 30 mg Multivitamins/Vitamin C (Multivitamin Tablet) 1 tab PO DAILY [facility] Last Admin: 12/24/23 09:22 Dose: Not Given Nicotine Polacrilex (Nicotine Polacrilex 2 Mg Gum) 4 mg BUCCAL Q2H PRN PRN Reason: Nicotine Cravings Omeprazole (Omeprazole 20 Mg Capsule.Dr) 20 mg PO DAILY@0630 [facility] Last Admin: 12/24/23 06:34 Dose: 20 mg Risperidone (Risperidone 0.5 Mg Tablet) 0.5 mg PO BID PRN PRN Reason: Restlessness Thiamine HCl (Thiamine Hcl 100 Mg Tablet) 100 mg PO DAILY [facility] Last Admin: 12/24/23 09:19 Dose: 100 mg Trazodone HCl (Trazodone Hcl 50 Mg Tablet) 50 mg PO BEDTIME PRN PRN Reason: Insomnia Last Admin: 12/08/23 22:06 Dose: 50 mg Valproic Acid (Valproic Acid (As Sodium Salt) 250 Mg/5 Ml Solution) 250 mg PO BID [facility] Last Admin: 12/24/23 08:47 Dose: 250 mg Allergies Allergies Allergy/AdvReac Type Severity Reaction Status Date / Time atropine Allergy Unknown Shortness Verified 12/02/23 23:30 of Breath enoxaparin [From Lovenox] Allergy Unknown Unknown Verified 12/02/23 23:30 penicillin V Allergy Unknown Unknown Verified 03/19/23 07:30 pseudoephedrine [Aprodine] Allergy Unknown Unknown Verified 03/19/23 07:30 triprolidine [Aprodine] Allergy Unknown Unknown Verified 03/19/23 07:30 Assessment & Plan Assessment & Plan (1) Major depressive disorder with psychotic features: Status: Acute Code(s): F32.3 - Major depressive disorder, single episode, severe with psychotic features Assessment and Plan: 12/15/23: Continue tx plan Plan 73-year-old female with history of insulin-dependent type 2 diabetes, hypertension, hyperlipidemia, history of C diff colitis, hypothyroidism, heart failure preserved ejection fraction, cirrhosis admitted to [facility] for catatonia with consult placed to hospitalist service for ect risk stratification. Pt with class II risk on revised cardiac risk index given history of CHF though is clinically euvolemic on exam. Lungs are clear. Has known but no murmurs heard on exam. Would recommend checking EKG to assess for ECT prolongation prior to ECT treatment. Unable to assess ROS. Based on RCRI and known history of ECT with good tolerance there does not appear to be any acute medical contraindication that should preclude patient from undergoing ect. Appropriate anesthesia precautions should be taken given known history of BASIL. Pt also noted to have equal but fixed pupils on exam which was not noted on initial H&P. She is catatonic and unable to participate in further CN exam or provide history. Did have Head CT on 12/02 negative for acute intracranial abnormalities which showed moderate small-vessel ischemic changes in hemispheric white matter numerous old lacunar infarcts as well as age advanced cerebral and cerebellar involutional changes with prominent ventricles. At this time, recommend repeating head CT and can consider Neurology evaluation at discretion of psychiatrist Will continue following for results Plan 1. Continue with same treatment. 2. Continue with ECT as scheduled. 3. Cardiology has cleared her. Reason for continued inpatient stay Substantial Risk for: inability to function, rapid decompensation and med/psych decompensation Time Spent With Patient Time: Total time managing care of this patient today __20__ minutes.
[2023-12-24 16:29] LABS: Glucose, Whole Blood 155 mg/dL (60-115)
[2023-12-24 20:00] VITALS: BP 115/56; PULSE 66; RESP 16; TEMP 36.3; O2SAT 98
[2023-12-24 20:17] LABS: Glucose, Whole Blood 299 mg/dL (60-115)
[2023-12-24] MEDS: Atorvastatin Calcium 10 MG TABLET PO (20:43)
[2023-12-24] MEDS: Mirtazapine 30 MG TABLET PO (20:44)
[2023-12-24] MEDS: Loratadine 10 MG TABLET PO (20:44)
[2023-12-24] MEDS: Insulin Glargine,Hum.rec.anlog 100 UNIT/ML 10 ML VIAL 6 UNIT SUBCUT (20:52)
[2023-12-25] VITALS (11 sets, daily range): BP systolic 99–164; BP diastolic 56–88; PULSE 60–117; RESP 16–20; TEMP 35.6–37; O2SAT 95–100
[2023-12-25 06:18] LABS: Glucose, Whole Blood 171 mg/dL (60-115)
--- NOTE | 2023-12-25 07:29 | MHC.SHP ---
Pre-Procedural Eval Section A - 24 Hr Update-Section A only Date of Service: 12/25/23 The patient is an INPATIENT: Yes Changes since office visit: No Cold of Flu in the past 2 weeks, No New Medical Problems, No Changes in Medication and No Patient answered all questions The patient has been examined within 24 hours of the surgical procedure. The History & Physical has been completed within 30 days and I have reviewed it.: Yes Section B - Complete if H&P > 30 days Chief Complaint: Major depressive disorder, severe, recurrent Allergies: Allergies Allergy/AdvReac Type Severity Reaction Status Date / Time atropine Allergy Unknown Shortness Verified 12/02/23 23:30 of Breath enoxaparin [From Lovenox] Allergy Unknown Unknown Verified 12/02/23 23:30 penicillin V Allergy Unknown Unknown Verified 03/19/23 07:30 pseudoephedrine [Aprodine] Allergy Unknown Unknown Verified 03/19/23 07:30 triprolidine [Aprodine] Allergy Unknown Unknown Verified 03/19/23 07:30 Plan I have reviewed the history and physical and performed a pertinent physical examination on my patient. No changes have occurred unless specified. Time Spent With Patient Time: Total time managing care of this patient today ____ minutes.
--- NOTE | 2023-12-25 07:31 | HO.ECTPROC ---
ECT Procedure Note Diagnosis/Treatment Date of Service: 12/25/23 Diagnosis: Major Depressive Disorder and Catatonia Previous ECT Date: 12/23/23 Current Treatment Number: 4 Treatment: Series Interval Clinical Notes: Patient minimally interactive and engaged no noted side effects tolerated treatment without difficulty Anesthesia felt etomidate can be lowered to 10 succinylcholine to 60 Time: Total time managing care of this patient today ____ minutes. ECT Settings Device: THYMATRON DGx Electrode Placement: Bitemporal Program/Pulse Width: 0.50 Energy Percent: 100 Seizure Duration By EEG (in seconds): 41 Medications Administration General Anesthetic: Etomidate (12) Muscle Relaxant: Succinylcholine (80) Ancillary Medications Cardiovascular Medications: Glycopyrrolate Airway Management Airway Management: Bag Mask Ventilation Treatment Recommendations Pt Tolerated Procedure w/o Issue: Yes
--- NOTE | 2023-12-25 07:38 | HO.ANESPROP2 ---
HPI - Anesthesia Eval Consult details Narrative: for ECT PMFSH Active Problems Active Problems: All Active Problems Hx of Clostridium difficile infection (Acute) Preoperative cardiovascular examination (Acute) Catatonia (Acute) Fixed constriction of pupil (Acute) Major depressive disorder with psychotic features (Acute) Dark stools (Acute) Routine medical exam (Acute) Essential hypertension (Acute) Type 2 diabetes mellitus with unspecified complications (Acute) Aortic valve sclerosis (Acute) Murmur (Acute) CKD (chronic kidney disease) stage 3, GFR 30-59 ml/min (Acute) Vitamin D deficiency (Acute) HLD (hyperlipidemia) (Acute) HTN (hypertension) (Acute) T2DM (type 2 diabetes mellitus) (Acute) Past Medical History Medical History Cirrhosis Hypothyroidism Breast cancer Hx of Clostridium difficile infection (HFpEF) heart failure with preserved ejection fraction Murmur CKD (chronic kidney disease) stage 3, GFR 30-59 ml/min Vitamin D deficiency HLD (hyperlipidemia) HTN (hypertension) T2DM (type 2 diabetes mellitus) Family History Family History Father Alzheimer disease Stroke Mother Breast cancer Family history of problems with anesthesia: No Surgical History Surgical History Hx of cataract surgery History of lumpectomy of right breast History of mastectomy History of Problems with Anesthesia: No Social History Social History Household Members: Family Household Members Other:: son Alcohol intake: never Patient Tobacco Use Status: Never used Tobacco Use of substances other than those prescribed or required for medical reasons: Unable to respond Last Used Substance Other:: unknown, unable to respond, she is nonsensical and delusional when she does Currently Displaying Signs/Symptoms of Drug Intoxication Withdrawal: No Other Past Substance Use Problem:: unknown, unable to respond, she is nonsensical and delusional when she does Spiritual Healthcare Practices: unknown, unable to respond, she is nonsensical and delusional when she does respond Mormonism Healthcare Practices: unknown, unable to respond, she is nonsensical and delusional when she does respond Cultural Healthcare Practices: unknown, unable to respond, she is nonsensical and delusional when she does respond Advance Directives: No Advance Directives Information Provided: No Do you have thoughts of harming others: None Do you have a plan to hurt others: No Plan Recently lost weight without trying: Unsure Patient : No : No Poor oral hygiene: No service: No Sexual orientation: Straight/Heterosexual Meds Allergies Allergy/AdvReac Type Severity Reaction Status Date / Time atropine Allergy Unknown Shortness Verified 12/02/23 23:30 of Breath enoxaparin [From Lovenox] Allergy Unknown Unknown Verified 12/02/23 23:30 penicillin V Allergy Unknown Unknown Verified 03/19/23 07:30 pseudoephedrine [Aprodine] Allergy Unknown Unknown Verified 03/19/23 07:30 triprolidine [Aprodine] Allergy Unknown Unknown Verified 03/19/23 07:30 Active Medications: Current Medications Acetaminophen (Acetaminophen 325 Mg Tablet) 650 mg PO Q6H PRN PRN Reason: Headache/Pain Mild Scale (1-3) Al Hydroxide/Mg Hydroxide (Magnesium Hydrox/Alum Hydrox 30 Ml Oral.Susp) 30 ml PO Q6H PRN PRN Reason: Heartburn/Nausea Amlodipine Besylate (Amlodipine Besylate 5 Mg Tablet) 5 mg PO DAILY [facility]; Protocol Last Admin: 12/24/23 09:22 Dose: Not Given Anastrozole (Anastrozole 1 Mg Tablet) 1 mg PO DAILY [facility] Last Admin: 12/24/23 08:47 Dose: 1 mg Aspirin (Aspirin 81 Mg Tab.Chew) 81 mg PO DAILY [facility] Last Admin: 12/24/23 08:47 Dose: 81 mg Atorvastatin Calcium (Atorvastatin Calcium 10 Mg Tablet) 10 mg PO BEDTIME [facility] Last Admin: 12/24/23 20:43 Dose: 10 mg Ferrous Sulfate (Ferrous Sulfate 324 Mg Tablet.Dr) 324 mg PO DAILY [facility] Last Admin: 12/24/23 08:47 Dose: 324 mg Furosemide (Furosemide 20 Mg Tablet) 20 mg PO DAILY [facility]; Protocol Last Admin: 12/24/23 09:20 Dose: 20 mg Glucose (Glucose Gel 15 Gm Gel..Gram.) 15 gm PO Q15M PRN; Protocol PRN Reason: per Hypoglycemia Standing Ord. Dextrose (D10) 250 mls @ 750 mls/hr IV Q15M PRN; Protocol PRN Reason: per Hypoglycemia Standing Ord. Insulin Glargine (Insulin Glargine,Hum.Rec.Anlog 100 Unit/Ml 10 Ml Vial) 6 unit SUBCUT BEDTIME [facility] Last Admin: 12/24/23 20:52 Dose: 6 unit Insulin Human Lispro (Insulin Lispro 100 Unit/Ml 3 Ml Vial) 0 unit SUBCUT QIDACHS [facility]; Protocol Last Admin: 12/24/23 20:53 Dose: 6 unit Loratadine (Loratadine 10 Mg Tablet) 10 mg PO BEDTIME [facility] Last Admin: 12/24/23 20:44 Dose: 10 mg Losartan Potassium (Losartan Potassium 50 Mg Tablet) 100 mg PO DAILY [facility]; Protocol Last Admin: 12/24/23 09:22 Dose: Not Given Magnesium Hydroxide (Milk Of Magnesia 30 Ml Oral.Susp) 30 ml PO DAILY PRN PRN Reason: Constipation Magnesium Oxide (Magnesium Oxide 400 Mg Tablet) 400 mg PO BID [facility] Last Admin: 12/24/23 20:44 Dose: 400 mg Mirtazapine (Mirtazapine 30 Mg Tablet) 30 mg PO BEDTIME [facility] Last Admin: 12/24/23 20:44 Dose: 30 mg Multivitamins/Vitamin C (Multivitamin Tablet) 1 tab PO DAILY [facility] Last Admin: 12/24/23 09:22 Dose: Not Given Nicotine Polacrilex (Nicotine Polacrilex 2 Mg Gum) 4 mg BUCCAL Q2H PRN PRN Reason: Nicotine Cravings Omeprazole (Omeprazole 20 Mg Capsule.Dr) 20 mg PO DAILY@0630 [facility] Last Admin: 12/25/23 05:46 Dose: Not Given Risperidone (Risperidone 0.5 Mg Tablet) 0.5 mg PO BID PRN PRN Reason: Restlessness Thiamine HCl (Thiamine Hcl 100 Mg Tablet) 100 mg PO DAILY [facility] Last Admin: 12/24/23 09:19 Dose: 100 mg Trazodone HCl (Trazodone Hcl 50 Mg Tablet) 50 mg PO BEDTIME PRN PRN Reason: Insomnia Last Admin: 12/08/23 22:06 Dose: 50 mg Valproic Acid (Valproic Acid (As Sodium Salt) 250 Mg/5 Ml Solution) 250 mg PO BID [facility] Last Admin: 12/24/23 20:49 Dose: 250 mg Home Medications ?Medication ?Instructions ?Recorded ?Confirmed ?Last Taken ?Type ascorbate calcium (vitamin C) 500 500 mg PO DAILY 03/24/20 11/20/22 Unknown History mg tablet fluoxetine 20 mg capsule 40 mg PO DAILY 03/24/20 11/20/22 Unknown History levothyroxine 100 mcg tablet 100 mcg PO QAM 03/24/20 11/20/22 Unknown History mirtazapine 30 mg tablet 30 mg PO BEDTIME 03/24/20 11/20/22 Unknown History omeprazole 20 mg capsule,delayed 20 mg PO DAILY 03/24/20 11/20/22 Unknown History release risperidone 1 mg tablet 1 mg PO BEDTIME 03/24/20 11/20/22 Unknown History insulin glargine 100 unit/mL (3 30 unit subcut BEDTIME 09/28/20 11/20/22 Unknown History mL) subcutaneous pen anastrozole 1 mg tablet 1 mg PO DAILY 02/16/21 11/20/22 Unknown History dapagliflozin propanediol 10 mg 10 mg PO QAM 05/08/21 11/20/22 Unknown History tablet (Farxiga) losartan 50 mg tablet 50 mg PO DAILY 09/14/21 11/20/22 Unknown History amlodipine 5 mg tablet 5 mg PO QAM 12/02/23 12/02/23 Unknown History anastrozole 1 mg tablet 1 mg PO DAILY 12/02/23 12/02/23 Unknown History aspirin 81 mg chewable tablet 1 tab PO QAM 12/02/23 12/02/23 Unknown History cetirizine 5 mg tablet 5 mg PO BEDTIME 12/02/23 12/02/23 Unknown History divalproex 500 mg tablet,delayed 500 mg PO BEDTIME 12/02/23 12/02/23 Unknown History release ferrous sulfate 325 mg (65 mg 325 mg PO QAM 12/02/23 12/02/23 Unknown History iron) tablet (FeroSul) furosemide 20 mg tablet (Lasix) 20 mg PO DAILY 12/02/23 12/02/23 Unknown History insulin glargine 100 unit/mL 6 unit subcut BEDTIME 12/02/23 12/02/23 Unknown History subcutaneous solution insulin lispro 100 unit/mL 1 sliding scale dose subcut 12/02/23 12/02/23 Unknown History subcutaneous solution USEASDIRECTD levetiracetam 500 mg tablet 500 mg PO BID 12/02/23 12/02/23 Unknown History losartan 100 mg tablet 100 mg PO DAILY 12/02/23 12/02/23 Unknown History losartan 100 mg tablet 100 mg PO DAILY 12/02/23 12/02/23 Unknown History magnesium oxide 400 mg PO BID 12/02/23 12/02/23 Unknown History mirtazapine 30 mg disintegrating 30 mg PO BEDTIME 12/02/23 12/02/23 Unknown History tablet multivitamin with minerals 1 tab PO DAILY 12/02/23 12/02/23 Unknown History pantoprazole 40 mg tablet,delayed 40 mg PO DAILY 12/02/23 12/02/23 Unknown History release risperidone 0.5 mg tablet 0.5 mg PO BID PRN Agitation 12/02/23 12/02/23 Unknown History risperidone 2 mg tablet 2 mg PO BID 12/02/23 12/02/23 Unknown History simvastatin 20 mg tablet 20 mg PO BEDTIME 12/02/23 12/02/23 Unknown History thiamine HCl (vitamin B1) 100 mg 100 mg PO QAM 12/02/23 12/02/23 Unknown History tablet trazodone 50 mg tablet 50 mg PO BEDTIME PRN insomnia 12/02/23 12/02/23 Unknown History vancomycin 125 mg capsule See Rx Instructions .Route .COMPLEX 12/02/23 12/02/23 Unknown History (Vancocin) Exam Height,Weight and Vital Signs: Height 4 ft 11 in Weight 45.2 kg Last Vital Signs Temp 96.1 F L 12/25/23 06:32 Pulse 63 12/25/23 06:32 Resp 20 12/25/23 06:32 BP 101/56 L 12/25/23 06:32 Pulse Ox 97 12/25/23 06:32 O2 Del Method Room Air 12/25/23 06:32 O2 Flow Rate 2 12/23/23 08:20 Pertinent Lab Results Pertinent Lab Results: Laboratory Tests 12/02/23 12/03/23 12/03/23 22:55 06:35 08:01 WBC RBC Hgb Hct MCV MCH MCHC RDW Plt Count MPV Immature Gran % (Auto) Neut % (Auto) Lymph % (Auto) [place] % (Auto) Eos % (Auto) Baso % (Auto) Lymph # (Auto) [place] # (Auto) Eos # (Auto) Baso # (Auto) Abs Immat Gran (auto) Absolute Neuts (auto) Absolute Nucleated RBC Nucleated RBC % (auto) Sodium 134 L Potassium 4.0 Chloride 98 Carbon Dioxide 27 Anion Gap 13 BUN 21 H Creatinine 0.88 Estim Creat Clear Calc TNP Estimated GFR > 60 POC Glucose 296 H 212 H Random Glucose Fasting Glucose 236 H Estimat Average Glucose 169 Hemoglobin A1c % 7.5 H Calcium 10.2 Total Bilirubin 0.5 Direct Bilirubin AST 19 ALT 16 Alkaline Phosphatase 93 Ammonia Total Protein 8.7 H Albumin 3.5 Triglycerides 105 Cholesterol 182 LDL Cholesterol, Calc 93 HDL Cholesterol 68 Vitamin B12 Folate TSH Urine Color Urine Appearance Urine pH Ur Specific [place] Urine Protein Urine Glucose (UA) Urine Ketones Urine Blood Urine Nitrite Ur Leukocyte Esterase Urine RBC Urine WBC Ur Squamous Epith Cells Urine Bacteria Hyaline Casts Granular Casts Urine Yeast Stool Occult Blood Stl C. cayetanensis PCR Stool Rotavirus A PCR Stl Adenov F 40/41 PCR Stool Astrovirus (PCR) Stool Campylobacter PCR Stool Cryptosporidium PCR Stl Sh Tox Pr E STEC PCR Stool E coli O157 PCR Stl Enterotoxigenic E PCR Stool EPEC (PCR) Stool EAEC (PCR) Stl E. histolytica PCR Stool Giardia Lamblia PCR Stl P. shigelloides PCR Stool Salmonella PCR Stool Sapovirus (PCR) Stl Shigella/EIEC PCR St Y.enterocolitica PCR Stool Vibrio (PCR) Stl Vibrio cholerae PCR Stl Norovirus GI/GII PCR Valproic Acid C. difficile Tox B Gene C. difficile Toxin A&B C. difficile Interpret 12/03/23 12/03/23 12/03/23 10:29 11:31 11:45 WBC 4.6 L RBC 3.96 L Hgb 10.9 L Hct 33.1 L MCV 83.6 MCH 27.5 MCHC 32.9 RDW 14.9 Plt Count 116 L MPV 9.5 Immature Gran % (Auto) 0.2 Neut % (Auto) 70.4 Lymph % (Auto) 17.7 L [place] % (Auto) 10.4 Eos % (Auto) 1.1 Baso % (Auto) 0.2 Lymph # (Auto) 0.8 L [place] # (Auto) 0.5 Eos # (Auto) 0.1 Baso # (Auto) 0.0 Abs Immat Gran (auto) 0.01 Absolute Neuts (auto) 3.3 Absolute Nucleated RBC 0.000 Nucleated RBC % (auto) 0.0 Sodium Potassium Chloride Carbon Dioxide Anion Gap BUN Creatinine Estim Creat Clear Calc Estimated GFR POC Glucose 234 H Random Glucose Fasting Glucose Estimat Average Glucose Hemoglobin A1c % Calcium Total Bilirubin Direct Bilirubin AST ALT Alkaline Phosphatase Ammonia 55 Total Protein Albumin Triglycerides Cholesterol LDL Cholesterol, Calc HDL Cholesterol Vitamin B12 Folate TSH Urine Color Urine Appearance Urine pH Ur Specific [place] Urine Protein Urine Glucose (UA) Urine Ketones Urine Blood Urine Nitrite Ur Leukocyte Esterase Urine RBC Urine WBC Ur Squamous Epith Cells Urine Bacteria Hyaline Casts Granular Casts Urine Yeast Stool Occult Blood Stl C. cayetanensis PCR Stool Rotavirus A PCR Stl Adenov F 40/41 PCR Stool Astrovirus (PCR) Stool Campylobacter PCR Stool Cryptosporidium PCR Stl Sh Tox Pr E STEC PCR Stool E coli O157 PCR Stl Enterotoxigenic E PCR Stool EPEC (PCR) Stool EAEC (PCR) Stl E. histolytica PCR Stool Giardia Lamblia PCR Stl P. shigelloides PCR Stool Salmonella PCR Stool Sapovirus (PCR) Stl Shigella/EIEC PCR St Y.enterocolitica PCR Stool Vibrio (PCR) Stl Vibrio cholerae PCR Stl Norovirus GI/GII PCR Valproic Acid C. difficile Tox B Gene C. difficile Toxin A&B C. difficile Interpret 12/03/23 12/03/23 12/03/23 16:05 16:31 17:30 WBC RBC Hgb Hct MCV MCH MCHC RDW Plt Count MPV Immature Gran % (Auto) Neut % (Auto) Lymph % (Auto) [place] % (Auto) Eos % (Auto) Baso % (Auto) Lymph # (Auto) [place] # (Auto) Eos # (Auto) Baso # (Auto) Abs Immat Gran (auto) Absolute Neuts (auto) Absolute Nucleated RBC Nucleated RBC % (auto) Sodium Potassium Chloride Carbon Dioxide Anion Gap BUN Creatinine Estim Creat Clear Calc Estimated GFR POC Glucose 217 H Random Glucose Fasting Glucose Estimat Average Glucose Hemoglobin A1c % Calcium Total Bilirubin Direct Bilirubin AST ALT Alkaline Phosphatase Ammonia Total Protein Albumin Triglycerides Cholesterol LDL Cholesterol, Calc HDL Cholesterol Vitamin B12 Folate TSH Urine Color Yellow Urine Appearance Cloudy Urine pH 5.5 Ur Specific [place] 1.020 Urine Protein 30 (1+) H Urine Glucose (UA) Negative Urine Ketones Negative Urine Blood Moderate (2+) H Urine Nitrite Negative Ur Leukocyte Esterase Moderate (2+) H Urine RBC >20 H Urine WBC >50 H Ur Squamous Epith Cells 3-5 Urine Bacteria 4+ Hyaline Casts >20 Granular Casts Present Urine Yeast Present Stool Occult Blood NEGATIVE Stl C. cayetanensis PCR Not Detected Stool Rotavirus A PCR Not Detected Stl Adenov F 40/ PCR Not Detected Stool Astrovirus (PCR) Not Detected Stool Campylobacter PCR Not Detected Stool Cryptosporidium PCR Not Detected Stl Sh Tox Pr E STEC PCR Not Detected Stool E coli O157 PCR Not applicable Stl Enterotoxigenic E PCR Not Detected Stool EPEC (PCR) Not Detected Stool EAEC (PCR) Not Detected Stl E. histolytica PCR Not Detected Stool Giardia Lamblia PCR Not Detected Stl P. shigelloides PCR Not Detected Stool Salmonella PCR Not Detected Stool Sapovirus (PCR) Not Detected Stl Shigella/EIEC PCR Not Detected St Y.enterocolitica PCR Not Detected Stool Vibrio (PCR) Not Detected Stl Vibrio cholerae PCR Not Detected Stl Norovirus GI/GII PCR Not Detected Valproic Acid C. difficile Tox B Gene POSITIVE A* C. difficile Toxin A&B Positive A* C. difficile Interpret SEE NOTE 12/03/23 12/04/23 12/04/23 21:03 06:21 11:26 WBC RBC Hgb Hct MCV MCH MCHC RDW Plt Count MPV Immature Gran % (Auto) Neut % (Auto) Lymph % (Auto) [place] % (Auto) Eos % (Auto) Baso % (Auto) Lymph # (Auto) [place] # (Auto) Eos # (Auto) Baso # (Auto) Abs Immat Gran (auto) Absolute Neuts (auto) Absolute Nucleated RBC Nucleated RBC % (auto) Sodium Potassium Chloride Carbon Dioxide Anion Gap BUN Creatinine Estim Creat Clear Calc Estimated GFR POC Glucose 207 H 176 H 210 H Random Glucose Fasting Glucose Estimat Average Glucose Hemoglobin A1c % Calcium Total Bilirubin Direct Bilirubin AST ALT Alkaline Phosphatase Ammonia Total Protein Albumin Triglycerides Cholesterol LDL Cholesterol, Calc HDL Cholesterol Vitamin B12 Folate TSH Urine Color Urine Appearance Urine pH Ur Specific [place] Urine Protein Urine Glucose (UA) Urine Ketones Urine Blood Urine Nitrite Ur Leukocyte Esterase Urine RBC Urine WBC Ur Squamous Epith Cells Urine Bacteria Hyaline Casts Granular Casts Urine Yeast Stool Occult Blood Stl C. cayetanensis PCR Stool Rotavirus A PCR Stl Adenov F 40 PCR Stool Astrovirus (PCR) Stool Campylobacter PCR Stool Cryptosporidium PCR Stl Sh Tox Pr E STEC PCR Stool E coli O157 PCR Stl Enterotoxigenic E PCR Stool EPEC (PCR) Stool EAEC (PCR) Stl E. histolytica PCR Stool Giardia Lamblia PCR Stl P. shigelloides PCR Stool Salmonella PCR Stool Sapovirus (PCR) Stl Shigella/EIEC PCR St Y.enterocolitica PCR Stool Vibrio (PCR) Stl Vibrio cholerae PCR Stl Norovirus GI/GII PCR Valproic Acid C. difficile Tox B Gene C. difficile Toxin A&B C. difficile Interpret 12/04/23 12/04/23 12/05/23 16:34 20:17 06:35 WBC RBC Hgb Hct MCV MCH MCHC RDW Plt Count MPV Immature Gran % (Auto) Neut % (Auto) Lymph % (Auto) [place] % (Auto) Eos % (Auto) Baso % (Auto) Lymph # (Auto) [place] # (Auto) Eos # (Auto) Baso # (Auto) Abs Immat Gran (auto) Absolute Neuts (auto) Absolute Nucleated RBC Nucleated RBC % (auto) Sodium Potassium Chloride Carbon Dioxide Anion Gap BUN Creatinine Estim Creat Clear Calc Estimated GFR POC Glucose 176 H 154 H 146 H Random Glucose Fasting Glucose Estimat Average Glucose Hemoglobin A1c % Calcium Total Bilirubin Direct Bilirubin AST ALT Alkaline Phosphatase Ammonia Total Protein Albumin Triglycerides Cholesterol LDL Cholesterol, Calc HDL Cholesterol Vitamin B12 Folate TSH Urine Color Urine Appearance Urine pH Ur Specific [place] Urine Protein Urine Glucose (UA) Urine Ketones Urine Blood Urine Nitrite Ur Leukocyte Esterase Urine RBC Urine WBC Ur Squamous Epith Cells Urine Bacteria Hyaline Casts Granular Casts Urine Yeast Stool Occult Blood Stl C. cayetanensis PCR Stool Rotavirus A PCR Stl Adenov F 40/41 PCR Stool Astrovirus (PCR) Stool Campylobacter PCR Stool Cryptosporidium PCR Stl Sh Tox Pr E STEC PCR Stool E coli O157 PCR Stl Enterotoxigenic E PCR Stool EPEC (PCR) Stool EAEC (PCR) Stl E. histolytica PCR Stool Giardia Lamblia PCR Stl P. shigelloides PCR Stool Salmonella PCR Stool Sapovirus (PCR) Stl Shigella/EIEC PCR St Y.enterocolitica PCR Stool Vibrio (PCR) Stl Vibrio cholerae PCR Stl Norovirus GI/GII PCR Valproic Acid C. difficile Tox B Gene C. difficile Toxin A&B C. difficile Interpret 12/05/23 12/05/23 12/05/23 11:08 16:36 20:27 WBC RBC Hgb Hct MCV MCH MCHC RDW Plt Count MPV Immature Gran % (Auto) Neut % (Auto) Lymph % (Auto) [place] % (Auto) Eos % (Auto) Baso % (Auto) Lymph # (Auto) [place] # (Auto) Eos # (Auto) Baso # (Auto) Abs Immat Gran (auto) Absolute Neuts (auto) Absolute Nucleated RBC Nucleated RBC % (auto) Sodium Potassium Chloride Carbon Dioxide Anion Gap BUN Creatinine Estim Creat Clear Calc Estimated GFR POC Glucose 164 H 162 H 198 H Random Glucose Fasting Glucose Estimat Average Glucose Hemoglobin A1c % Calcium Total Bilirubin Direct Bilirubin AST ALT Alkaline Phosphatase Ammonia Total Protein Albumin Triglycerides Cholesterol LDL Cholesterol, Calc HDL Cholesterol Vitamin B12 Folate TSH Urine Color Urine Appearance Urine pH Ur Specific [place] Urine Protein Urine Glucose (UA) Urine Ketones Urine Blood Urine Nitrite Ur Leukocyte Esterase Urine RBC Urine WBC Ur Squamous Epith Cells Urine Bacteria Hyaline Casts Granular Casts Urine Yeast Stool Occult Blood Stl C. cayetanensis PCR Stool Rotavirus A PCR Stl Adenov F 40/41 PCR Stool Astrovirus (PCR) Stool Campylobacter PCR Stool Cryptosporidium PCR Stl Sh Tox Pr E STEC PCR Stool E coli O157 PCR Stl Enterotoxigenic E PCR Stool EPEC (PCR) Stool EAEC (PCR) Stl E. histolytica PCR Stool Giardia Lamblia PCR Stl P. shigelloides PCR Stool Salmonella PCR Stool Sapovirus (PCR) Stl Shigella/EIEC PCR St Y.enterocolitica PCR Stool Vibrio (PCR) Stl Vibrio cholerae PCR Stl Norovirus GI/GII PCR Valproic Acid C. difficile Tox B Gene C. difficile Toxin A&B C. difficile Interpret 12/06/23 12/06/23 12/06/23 06:22 07:57 11:30 WBC RBC Hgb Hct MCV MCH MCHC RDW Plt Count MPV Immature Gran % (Auto) Neut % (Auto) Lymph % (Auto) [place] % (Auto) Eos % (Auto) Baso % (Auto) Lymph # (Auto) [place] # (Auto) Eos # (Auto) Baso # (Auto) Abs Immat Gran (auto) Absolute Neuts (auto) Absolute Nucleated RBC Nucleated RBC % (auto) Sodium 142 Potassium 4.5 Chloride 103 Carbon Dioxide 30 H Anion Gap 14 BUN 32 H Creatinine 0.88 Estim Creat Clear Calc 37.7 Estimated GFR > 60 POC Glucose 122 H 135 H Random Glucose Fasting Glucose 137 H Estimat Average Glucose Hemoglobin A1c % Calcium 10.7 H Total Bilirubin 0.5 Direct Bilirubin AST 24 ALT 15 Alkaline Phosphatase 97 Ammonia Total Protein 9.2 H Albumin 3.6 Triglycerides Cholesterol LDL Cholesterol, Calc HDL Cholesterol Vitamin B12 1504 H Folate 14.9 TSH 2.88 Urine Color Urine Appearance Urine pH Ur Specific [place] Urine Protein Urine Glucose (UA) Urine Ketones Urine Blood Urine Nitrite Ur Leukocyte Esterase Urine RBC Urine WBC Ur Squamous Epith Cells Urine Bacteria Hyaline Casts Granular Casts Urine Yeast Stool Occult Blood Stl C. cayetanensis PCR Stool Rotavirus A PCR Stl Adenov F 40 PCR Stool Astrovirus (PCR) Stool Campylobacter PCR Stool Cryptosporidium PCR Stl Sh Tox Pr E STEC PCR Stool E coli O157 PCR Stl Enterotoxigenic E PCR Stool EPEC (PCR) Stool EAEC (PCR) Stl E. histolytica PCR Stool Giardia Lamblia PCR Stl P. shigelloides PCR Stool Salmonella PCR Stool Sapovirus (PCR) Stl Shigella/EIEC PCR St Y.enterocolitica PCR Stool Vibrio (PCR) Stl Vibrio cholerae PCR Stl Norovirus GI/GII PCR Valproic Acid C. difficile Tox B Gene C. difficile Toxin A&B C. difficile Interpret 12/06/23 12/06/23 12/07/23 16:30 19:51 06:57 WBC RBC Hgb Hct MCV MCH MCHC RDW Plt Count MPV Immature Gran % (Auto) Neut % (Auto) Lymph % (Auto) [place] % (Auto) Eos % (Auto) Baso % (Auto) Lymph # (Auto) [place] # (Auto) Eos # (Auto) Baso # (Auto) Abs Immat Gran (auto) Absolute Neuts (auto) Absolute Nucleated RBC Nucleated RBC % (auto) Sodium Potassium Chloride Carbon Dioxide Anion Gap BUN Creatinine Estim Creat Clear Calc Estimated GFR POC Glucose 173 H 208 H 151 H Random Glucose Fasting Glucose Estimat Average Glucose Hemoglobin A1c % Calcium Total Bilirubin Direct Bilirubin AST ALT Alkaline Phosphatase Ammonia Total Protein Albumin Triglycerides Cholesterol LDL Cholesterol, Calc HDL Cholesterol Vitamin B12 Folate TSH Urine Color Urine Appearance Urine pH Ur Specific [place] Urine Protein Urine Glucose (UA) Urine Ketones Urine Blood Urine Nitrite Ur Leukocyte Esterase Urine RBC Urine WBC Ur Squamous Epith Cells Urine Bacteria Hyaline Casts Granular Casts Urine Yeast Stool Occult Blood Stl C. cayetanensis PCR Stool Rotavirus A PCR Stl Adenov F 40 PCR Stool Astrovirus (PCR) Stool Campylobacter PCR Stool Cryptosporidium PCR Stl Sh Tox Pr E STEC PCR Stool E coli O157 PCR Stl Enterotoxigenic E PCR Stool EPEC (PCR) Stool EAEC (PCR) Stl E. histolytica PCR Stool Giardia Lamblia PCR Stl P. shigelloides PCR Stool Salmonella PCR Stool Sapovirus (PCR) Stl Shigella/EIEC PCR St Y.enterocolitica PCR Stool Vibrio (PCR) Stl Vibrio cholerae PCR Stl Norovirus GI/GII PCR Valproic Acid C. difficile Tox B Gene C. difficile Toxin A&B C. difficile Interpret 12/07/23 12/07/23 12/07/23 11:09 16:11 19:32 WBC RBC Hgb Hct MCV MCH MCHC RDW Plt Count MPV Immature Gran % (Auto) Neut % (Auto) Lymph % (Auto) [place] % (Auto) Eos % (Auto) Baso % (Auto) Lymph # (Auto) [place] # (Auto) Eos # (Auto) Baso # (Auto) Abs Immat Gran (auto) Absolute Neuts (auto) Absolute Nucleated RBC Nucleated RBC % (auto) Sodium Potassium Chloride Carbon Dioxide Anion Gap BUN Creatinine Estim Creat Clear Calc Estimated GFR POC Glucose 167 H 154 H 225 H Random Glucose Fasting Glucose Estimat Average Glucose Hemoglobin A1c % Calcium Total Bilirubin Direct Bilirubin AST ALT Alkaline Phosphatase Ammonia Total Protein Albumin Triglycerides Cholesterol LDL Cholesterol, Calc HDL Cholesterol Vitamin B12 Folate TSH Urine Color Urine Appearance Urine pH Ur Specific [place] Urine Protein Urine Glucose (UA) Urine Ketones Urine Blood Urine Nitrite Ur Leukocyte Esterase Urine RBC Urine WBC Ur Squamous Epith Cells Urine Bacteria Hyaline Casts Granular Casts Urine Yeast Stool Occult Blood Stl C. cayetanensis PCR Stool Rotavirus A PCR Stl Adenov F 40/41 PCR Stool Astrovirus (PCR) Stool Campylobacter PCR Stool Cryptosporidium PCR Stl Sh Tox Pr E STEC PCR Stool E coli O157 PCR Stl Enterotoxigenic E PCR Stool EPEC (PCR) Stool EAEC (PCR) Stl E. histolytica PCR Stool Giardia Lamblia PCR Stl P. shigelloides PCR Stool Salmonella PCR Stool Sapovirus (PCR) Stl Shigella/EIEC PCR St Y.enterocolitica PCR Stool Vibrio (PCR) Stl Vibrio cholerae PCR Stl Norovirus GI/GII PCR Valproic Acid C. difficile Tox B Gene C. difficile Toxin A&B C. difficile Interpret 12/08/23 12/08/23 12/08/23 06:23 11:15 16:29 WBC RBC Hgb Hct MCV MCH MCHC RDW Plt Count MPV Immature Gran % (Auto) Neut % (Auto) Lymph % (Auto) [place] % (Auto) Eos % (Auto) Baso % (Auto) Lymph # (Auto) [place] # (Auto) Eos # (Auto) Baso # (Auto) Abs Immat Gran (auto) Absolute Neuts (auto) Absolute Nucleated RBC Nucleated RBC % (auto) Sodium Potassium Chloride Carbon Dioxide Anion Gap BUN Creatinine Estim Creat Clear Calc Estimated GFR POC Glucose 150 H 171 H 131 H Random Glucose Fasting Glucose Estimat Average Glucose Hemoglobin A1c % Calcium Total Bilirubin Direct Bilirubin AST ALT Alkaline Phosphatase Ammonia Total Protein Albumin Triglycerides Cholesterol LDL Cholesterol, Calc HDL Cholesterol Vitamin B12 Folate TSH Urine Color Urine Appearance Urine pH Ur Specific [place] Urine Protein Urine Glucose (UA) Urine Ketones Urine Blood Urine Nitrite Ur Leukocyte Esterase Urine RBC Urine WBC Ur Squamous Epith Cells Urine Bacteria Hyaline Casts Granular Casts Urine Yeast Stool Occult Blood Stl C. cayetanensis PCR Stool Rotavirus A PCR Stl Adenov F 40/41 PCR Stool Astrovirus (PCR) Stool Campylobacter PCR Stool Cryptosporidium PCR Stl Sh Tox Pr E STEC PCR Stool E coli O157 PCR Stl Enterotoxigenic E PCR Stool EPEC (PCR) Stool EAEC (PCR) Stl E. histolytica PCR Stool Giardia Lamblia PCR Stl P. shigelloides PCR Stool Salmonella PCR Stool Sapovirus (PCR) Stl Shigella/EIEC PCR St Y.enterocolitica PCR Stool Vibrio (PCR) Stl Vibrio cholerae PCR Stl Norovirus GI/GII PCR Valproic Acid C. difficile Tox B Gene C. difficile Toxin A&B C. difficile Interpret 12/08/23 12/08/23 12/09/23 19:07 20:11 06:32 WBC 3.3 L RBC 3.73 L Hgb 10.3 L Hct 32.0 L MCV 85.8 MCH 27.6 MCHC 32.2 RDW 14.2 Plt Count 99 L MPV 10.0 Immature Gran % (Auto) 0.3 Neut % (Auto) 53.2 Lymph % (Auto) 29.7 [place] % (Auto) 15.3 H Eos % (Auto) 1.2 Baso % (Auto) 0.3 Lymph # (Auto) 1.0 L [place] # (Auto) 0.5 Eos # (Auto) 0.0 Baso # (Auto) 0.0 Abs Immat Gran (auto) 0.01 Absolute Neuts (auto) 1.8 L Absolute Nucleated RBC 0.000 Nucleated RBC % (auto) 0.0 Sodium 142 Potassium 4.2 Chloride 104 Carbon Dioxide 30 H Anion Gap 12 BUN 27 H Creatinine 0.82 Estim Creat Clear Calc 40.4 Estimated GFR > 60 POC Glucose 116 H 145 H Random Glucose 114 Fasting Glucose Estimat Average Glucose Hemoglobin A1c % Calcium 10.5 H Total Bilirubin 0.6 Direct Bilirubin AST 25 ALT 14 Alkaline Phosphatase 90 Ammonia Total Protein 8.6 H Albumin 3.4 L Triglycerides Cholesterol LDL Cholesterol, Calc HDL Cholesterol Vitamin B12 Folate TSH Urine Color Urine Appearance Urine pH Ur Specific [place] Urine Protein Urine Glucose (UA) Urine Ketones Urine Blood Urine Nitrite Ur Leukocyte Esterase Urine RBC Urine WBC Ur Squamous Epith Cells Urine Bacteria Hyaline Casts Granular Casts Urine Yeast Stool Occult Blood Stl C. cayetanensis PCR Stool Rotavirus A PCR Stl Adenov F PCR Stool Astrovirus (PCR) Stool Campylobacter PCR Stool Cryptosporidium PCR Stl Sh Tox Pr E STEC PCR Stool E coli O157 PCR Stl Enterotoxigenic E PCR Stool EPEC (PCR) Stool EAEC (PCR) Stl E. histolytica PCR Stool Giardia Lamblia PCR Stl P. shigelloides PCR Stool Salmonella PCR Stool Sapovirus (PCR) Stl Shigella/EIEC PCR St Y.enterocolitica PCR Stool Vibrio (PCR) Stl Vibrio cholerae PCR Stl Norovirus GI/GII PCR Valproic Acid C. difficile Tox B Gene C. difficile Toxin A&B C. difficile Interpret 12/09/23 12/09/23 12/09/23 09:57 11:34 16:28 WBC 2.8 L RBC 3.68 L Hgb 10.1 L Hct 32.1 L MCV 87.2 MCH 27.4 MCHC 31.5 RDW 14.4 Plt Count 86 L MPV 9.6 Immature Gran % (Auto) 0.0 Neut % (Auto) 56.4 Lymph % (Auto) 29.1 [place] % (Auto) 12.4 H Eos % (Auto) 1.4 Baso % (Auto) 0.7 Lymph # (Auto) 0.8 L [place] # (Auto) 0.4 Eos # (Auto) 0.0 Baso # (Auto) 0.0 Abs Immat Gran (auto) 0.00 Absolute Neuts (auto) 1.6 L Absolute Nucleated RBC 0.000 Nucleated RBC % (auto) 0.0 Sodium 140 Potassium 4.7 Chloride 103 Carbon Dioxide 30 H Anion Gap 12 BUN 30 H Creatinine 0.99 Estim Creat Clear Calc 33.4 Estimated GFR 55 POC Glucose 201 H 143 H Random Glucose 279 H Fasting Glucose Estimat Average Glucose Hemoglobin A1c % Calcium 10.4 H Total Bilirubin 0.4 Direct Bilirubin 0.2 AST 30 ALT 16 Alkaline Phosphatase 96 Ammonia Total Protein 8.4 H Albumin 3.3 L Triglycerides Cholesterol LDL Cholesterol, Calc HDL Cholesterol Vitamin B12 Folate TSH Urine Color Urine Appearance Urine pH Ur Specific [place] Urine Protein Urine Glucose (UA) Urine Ketones Urine Blood Urine Nitrite Ur Leukocyte Esterase Urine RBC Urine WBC Ur Squamous Epith Cells Urine Bacteria Hyaline Casts Granular Casts Urine Yeast Stool Occult Blood Stl C. cayetanensis PCR Stool Rotavirus A PCR Stl Adenov F 40/41 PCR Stool Astrovirus (PCR) Stool Campylobacter PCR Stool Cryptosporidium PCR Stl Sh Tox Pr E STEC PCR Stool E coli O157 PCR Stl Enterotoxigenic E PCR Stool EPEC (PCR) Stool EAEC (PCR) Stl E. histolytica PCR Stool Giardia Lamblia PCR Stl P. shigelloides PCR Stool Salmonella PCR Stool Sapovirus (PCR) Stl Shigella/EIEC PCR St Y.enterocolitica PCR Stool Vibrio (PCR) Stl Vibrio cholerae PCR Stl Norovirus GI/GII PCR Valproic Acid C. difficile Tox B Gene C. difficile Toxin A&B C. difficile Interpret 12/09/23 12/10/23 12/10/23 19:52 06:12 08:25 WBC RBC Hgb Hct MCV MCH MCHC RDW Plt Count MPV Immature Gran % (Auto) Neut % (Auto) Lymph % (Auto) [place] % (Auto) Eos % (Auto) Baso % (Auto) Lymph # (Auto) [place] # (Auto) Eos # (Auto) Baso # (Auto) Abs Immat Gran (auto) Absolute Neuts (auto) Absolute Nucleated RBC Nucleated RBC % (auto) Sodium Potassium Chloride Carbon Dioxide Anion Gap BUN Creatinine Estim Creat Clear Calc Estimated GFR POC Glucose 205 H 124 H 146 H Random Glucose Fasting Glucose Estimat Average Glucose Hemoglobin A1c % Calcium Total Bilirubin Direct Bilirubin AST ALT Alkaline Phosphatase Ammonia Total Protein Albumin Triglycerides Cholesterol LDL Cholesterol, Calc HDL Cholesterol Vitamin B12 Folate TSH Urine Color Urine Appearance Urine pH Ur Specific [place] Urine Protein Urine Glucose (UA) Urine Ketones Urine Blood Urine Nitrite Ur Leukocyte Esterase Urine RBC Urine WBC Ur Squamous Epith Cells Urine Bacteria Hyaline Casts Granular Casts Urine Yeast Stool Occult Blood Stl C. cayetanensis PCR Stool Rotavirus A PCR Stl Adenov PCR Stool Astrovirus (PCR) Stool Campylobacter PCR Stool Cryptosporidium PCR Stl Sh Tox Pr E STEC PCR Stool E coli O157 PCR Stl Enterotoxigenic E PCR Stool EPEC (PCR) Stool EAEC (PCR) Stl E. histolytica PCR Stool Giardia Lamblia PCR Stl P. shigelloides PCR Stool Salmonella PCR Stool Sapovirus (PCR) Stl Shigella/EIEC PCR St Y.enterocolitica PCR Stool Vibrio (PCR) Stl Vibrio cholerae PCR Stl Norovirus GI/GII PCR Valproic Acid C. difficile Tox B Gene C. difficile Toxin A&B C. difficile Interpret 12/10/23 12/10/23 12/10/23 11:53 16:42 20:01 WBC RBC Hgb Hct MCV MCH MCHC RDW Plt Count MPV Immature Gran % (Auto) Neut % (Auto) Lymph % (Auto) [place] % (Auto) Eos % (Auto) Baso % (Auto) Lymph # (Auto) [place] # (Auto) Eos # (Auto) Baso # (Auto) Abs Immat Gran (auto) Absolute Neuts (auto) Absolute Nucleated RBC Nucleated RBC % (auto) Sodium Potassium Chloride Carbon Dioxide Anion Gap BUN Creatinine Estim Creat Clear Calc Estimated GFR POC Glucose 185 H 164 H 139 H Random Glucose Fasting Glucose Estimat Average Glucose Hemoglobin A1c % Calcium Total Bilirubin Direct Bilirubin AST ALT Alkaline Phosphatase Ammonia Total Protein Albumin Triglycerides Cholesterol LDL Cholesterol, Calc HDL Cholesterol Vitamin B12 Folate TSH Urine Color Urine Appearance Urine pH Ur Specific [place] Urine Protein Urine Glucose (UA) Urine Ketones Urine Blood Urine Nitrite Ur Leukocyte Esterase Urine RBC Urine WBC Ur Squamous Epith Cells Urine Bacteria Hyaline Casts Granular Casts Urine Yeast Stool Occult Blood Stl C. cayetanensis PCR Stool Rotavirus A PCR Stl Adenov PCR Stool Astrovirus (PCR) Stool Campylobacter PCR Stool Cryptosporidium PCR Stl Sh Tox Pr E STEC PCR Stool E coli O157 PCR Stl Enterotoxigenic E PCR Stool EPEC (PCR) Stool EAEC (PCR) Stl E. histolytica PCR Stool Giardia Lamblia PCR Stl P. shigelloides PCR Stool Salmonella PCR Stool Sapovirus (PCR) Stl Shigella/EIEC PCR St Y.enterocolitica PCR Stool Vibrio (PCR) Stl Vibrio cholerae PCR Stl Norovirus GI/GII PCR Valproic Acid C. difficile Tox B Gene C. difficile Toxin A&B C. difficile Interpret 12/11/23 12/11/23 12/11/23 06:00 11:58 16:39 WBC RBC Hgb Hct MCV MCH MCHC RDW Plt Count MPV Immature Gran % (Auto) Neut % (Auto) Lymph % (Auto) [place] % (Auto) Eos % (Auto) Baso % (Auto) Lymph # (Auto) [place] # (Auto) Eos # (Auto) Baso # (Auto) Abs Immat Gran (auto) Absolute Neuts (auto) Absolute Nucleated RBC Nucleated RBC % (auto) Sodium Potassium Chloride Carbon Dioxide Anion Gap BUN Creatinine Estim Creat Clear Calc Estimated GFR POC Glucose 151 H 158 H 134 H Random Glucose Fasting Glucose Estimat Average Glucose Hemoglobin A1c % Calcium Total Bilirubin Direct Bilirubin AST ALT Alkaline Phosphatase Ammonia Total Protein Albumin Triglycerides Cholesterol LDL Cholesterol, Calc HDL Cholesterol Vitamin B12 Folate TSH Urine Color Urine Appearance Urine pH Ur Specific [place] Urine Protein Urine Glucose (UA) Urine Ketones Urine Blood Urine Nitrite Ur Leukocyte Esterase Urine RBC Urine WBC Ur Squamous Epith Cells Urine Bacteria Hyaline Casts Granular Casts Urine Yeast Stool Occult Blood Stl C. cayetanensis PCR Stool Rotavirus A PCR Stl Adenov F 40/41 PCR Stool Astrovirus (PCR) Stool Campylobacter PCR Stool Cryptosporidium PCR Stl Sh Tox Pr E STEC PCR Stool E coli O157 PCR Stl Enterotoxigenic E PCR Stool EPEC (PCR) Stool EAEC (PCR) Stl E. histolytica PCR Stool Giardia Lamblia PCR Stl P. shigelloides PCR Stool Salmonella PCR Stool Sapovirus (PCR) Stl Shigella/EIEC PCR St Y.enterocolitica PCR Stool Vibrio (PCR) Stl Vibrio cholerae PCR Stl Norovirus GI/GII PCR Valproic Acid C. difficile Tox B Gene C. difficile Toxin A&B C. difficile Interpret 12/11/23 12/12/23 12/12/23 19:50 06:41 11:33 WBC RBC Hgb Hct MCV MCH MCHC RDW Plt Count MPV Immature Gran % (Auto) Neut % (Auto) Lymph % (Auto) [place] % (Auto) Eos % (Auto) Baso % (Auto) Lymph # (Auto) [place] # (Auto) Eos # (Auto) Baso # (Auto) Abs Immat Gran (auto) Absolute Neuts (auto) Absolute Nucleated RBC Nucleated RBC % (auto) Sodium Potassium Chloride Carbon Dioxide Anion Gap BUN Creatinine Estim Creat Clear Calc Estimated GFR POC Glucose 136 H 149 H 230 H Random Glucose Fasting Glucose Estimat Average Glucose Hemoglobin A1c % Calcium Total Bilirubin Direct Bilirubin AST ALT Alkaline Phosphatase Ammonia Total Protein Albumin Triglycerides Cholesterol LDL Cholesterol, Calc HDL Cholesterol Vitamin B12 Folate TSH Urine Color Urine Appearance Urine pH Ur Specific [place] Urine Protein Urine Glucose (UA) Urine Ketones Urine Blood Urine Nitrite Ur Leukocyte Esterase Urine RBC Urine WBC Ur Squamous Epith Cells Urine Bacteria Hyaline Casts Granular Casts Urine Yeast Stool Occult Blood Stl C. cayetanensis PCR Stool Rotavirus A PCR Stl Adenov F 40/ PCR Stool Astrovirus (PCR) Stool Campylobacter PCR Stool Cryptosporidium PCR Stl Sh Tox Pr E STEC PCR Stool E coli O157 PCR Stl Enterotoxigenic E PCR Stool EPEC (PCR) Stool EAEC (PCR) Stl E. histolytica PCR Stool Giardia Lamblia PCR Stl P. shigelloides PCR Stool Salmonella PCR Stool Sapovirus (PCR) Stl Shigella/EIEC PCR St Y.enterocolitica PCR Stool Vibrio (PCR) Stl Vibrio cholerae PCR Stl Norovirus GI/GII PCR Valproic Acid C. difficile Tox B Gene C. difficile Toxin A&B C. difficile Interpret 12/12/23 12/12/23 12/13/23 16:28 20:34 06:19 WBC RBC Hgb Hct MCV MCH MCHC RDW Plt Count MPV Immature Gran % (Auto) Neut % (Auto) Lymph % (Auto) [place] % (Auto) Eos % (Auto) Baso % (Auto) Lymph # (Auto) [place] # (Auto) Eos # (Auto) Baso # (Auto) Abs Immat Gran (auto) Absolute Neuts (auto) Absolute Nucleated RBC Nucleated RBC % (auto) Sodium Potassium Chloride Carbon Dioxide Anion Gap BUN Creatinine Estim Creat Clear Calc Estimated GFR POC Glucose 256 H 194 H 165 H Random Glucose Fasting Glucose Estimat Average Glucose Hemoglobin A1c % Calcium Total Bilirubin Direct Bilirubin AST ALT Alkaline Phosphatase Ammonia Total Protein Albumin Triglycerides Cholesterol LDL Cholesterol, Calc HDL Cholesterol Vitamin B12 Folate TSH Urine Color Urine Appearance Urine pH Ur Specific [place] Urine Protein Urine Glucose (UA) Urine Ketones Urine Blood Urine Nitrite Ur Leukocyte Esterase Urine RBC Urine WBC Ur Squamous Epith Cells Urine Bacteria Hyaline Casts Granular Casts Urine Yeast Stool Occult Blood Stl C. cayetanensis PCR Stool Rotavirus A PCR Stl Adenov F PCR Stool Astrovirus (PCR) Stool Campylobacter PCR Stool Cryptosporidium PCR Stl Sh Tox Pr E STEC PCR Stool E coli O157 PCR Stl Enterotoxigenic E PCR Stool EPEC (PCR) Stool EAEC (PCR) Stl E. histolytica PCR Stool Giardia Lamblia PCR Stl P. shigelloides PCR Stool Salmonella PCR Stool Sapovirus (PCR) Stl Shigella/EIEC PCR St Y.enterocolitica PCR Stool Vibrio (PCR) Stl Vibrio cholerae PCR Stl Norovirus GI/GII PCR Valproic Acid C. difficile Tox B Gene C. difficile Toxin A&B C. difficile Interpret 12/13/23 12/13/23 12/13/23 11:02 16:26 19:57 WBC RBC Hgb Hct MCV MCH MCHC RDW Plt Count MPV Immature Gran % (Auto) Neut % (Auto) Lymph % (Auto) [place] % (Auto) Eos % (Auto) Baso % (Auto) Lymph # (Auto) [place] # (Auto) Eos # (Auto) Baso # (Auto) Abs Immat Gran (auto) Absolute Neuts (auto) Absolute Nucleated RBC Nucleated RBC % (auto) Sodium Potassium Chloride Carbon Dioxide Anion Gap BUN Creatinine Estim Creat Clear Calc Estimated GFR POC Glucose 248 H 247 H 179 H Random Glucose Fasting Glucose Estimat Average Glucose Hemoglobin A1c % Calcium Total Bilirubin Direct Bilirubin AST ALT Alkaline Phosphatase Ammonia Total Protein Albumin Triglycerides Cholesterol LDL Cholesterol, Calc HDL Cholesterol Vitamin B12 Folate TSH Urine Color Urine Appearance Urine pH Ur Specific [place] Urine Protein Urine Glucose (UA) Urine Ketones Urine Blood Urine Nitrite Ur Leukocyte Esterase Urine RBC Urine WBC Ur Squamous Epith Cells Urine Bacteria Hyaline Casts Granular Casts Urine Yeast Stool Occult Blood Stl C. cayetanensis PCR Stool Rotavirus A PCR Stl Adenov F PCR Stool Astrovirus (PCR) Stool Campylobacter PCR Stool Cryptosporidium PCR Stl Sh Tox Pr E STEC PCR Stool E coli O157 PCR Stl Enterotoxigenic E PCR Stool EPEC (PCR) Stool EAEC (PCR) Stl E. histolytica PCR Stool Giardia Lamblia PCR Stl P. shigelloides PCR Stool Salmonella PCR Stool Sapovirus (PCR) Stl Shigella/EIEC PCR St Y.enterocolitica PCR Stool Vibrio (PCR) Stl Vibrio cholerae PCR Stl Norovirus GI/GII PCR Valproic Acid C. difficile Tox B Gene C. difficile Toxin A&B C. difficile Interpret 12/14/23 12/14/23 12/14/23 06:32 07:37 11:48 WBC RBC Hgb Hct MCV MCH MCHC RDW Plt Count MPV Immature Gran % (Auto) Neut % (Auto) Lymph % (Auto) [place] % (Auto) Eos % (Auto) Baso % (Auto) Lymph # (Auto) [place] # (Auto) Eos # (Auto) Baso # (Auto) Abs Immat Gran (auto) Absolute Neuts (auto) Absolute Nucleated RBC Nucleated RBC % (auto) Sodium 139 Potassium 4.2 Chloride 103 Carbon Dioxide 28 Anion Gap 12 BUN 25 H Creatinine 0.84 Estim Creat Clear Calc 39.4 Estimated GFR > 60 POC Glucose 120 H 158 H Random Glucose Fasting Glucose 135 H Estimat Average Glucose Hemoglobin A1c % Calcium 10.0 Total Bilirubin 0.6 Direct Bilirubin AST 43 H ALT 23 Alkaline Phosphatase 101 Ammonia Total Protein 8.0 Albumin 3.0 L Triglycerides Cholesterol LDL Cholesterol, Calc HDL Cholesterol Vitamin B12 Folate TSH Urine Color Urine Appearance Urine pH Ur Specific [place] Urine Protein Urine Glucose (UA) Urine Ketones Urine Blood Urine Nitrite Ur Leukocyte Esterase Urine RBC Urine WBC Ur Squamous Epith Cells Urine Bacteria Hyaline Casts Granular Casts Urine Yeast Stool Occult Blood Stl C. cayetanensis PCR Stool Rotavirus A PCR Stl Adenov F 40/41 PCR Stool Astrovirus (PCR) Stool Campylobacter PCR Stool Cryptosporidium PCR Stl Sh Tox Pr E STEC PCR Stool E coli O157 PCR Stl Enterotoxigenic E PCR Stool EPEC (PCR) Stool EAEC (PCR) Stl E. histolytica PCR Stool Giardia Lamblia PCR Stl P. shigelloides PCR Stool Salmonella PCR Stool Sapovirus (PCR) Stl Shigella/EIEC PCR St Y.enterocolitica PCR Stool Vibrio (PCR) Stl Vibrio cholerae PCR Stl Norovirus GI/GII PCR Valproic Acid C. difficile Tox B Gene C. difficile Toxin A&B C. difficile Interpret 12/14/23 12/14/23 12/15/23 16:05 19:57 06:34 WBC RBC Hgb Hct MCV MCH MCHC RDW Plt Count MPV Immature Gran % (Auto) Neut % (Auto) Lymph % (Auto) [place] % (Auto) Eos % (Auto) Baso % (Auto) Lymph # (Auto) [place] # (Auto) Eos # (Auto) Baso # (Auto) Abs Immat Gran (auto) Absolute Neuts (auto) Absolute Nucleated RBC Nucleated RBC % (auto) Sodium Potassium Chloride Carbon Dioxide Anion Gap BUN Creatinine Estim Creat Clear Calc Estimated GFR POC Glucose 128 H 248 H 92 Random Glucose Fasting Glucose Estimat Average Glucose Hemoglobin A1c % Calcium Total Bilirubin Direct Bilirubin AST ALT Alkaline Phosphatase Ammonia Total Protein Albumin Triglycerides Cholesterol LDL Cholesterol, Calc HDL Cholesterol Vitamin B12 Folate TSH Urine Color Urine Appearance Urine pH Ur Specific [place] Urine Protein Urine Glucose (UA) Urine Ketones Urine Blood Urine Nitrite Ur Leukocyte Esterase Urine RBC Urine WBC Ur Squamous Epith Cells Urine Bacteria Hyaline Casts Granular Casts Urine Yeast Stool Occult Blood Stl C. cayetanensis PCR Stool Rotavirus A PCR Stl Adenov F 40/41 PCR Stool Astrovirus (PCR) Stool Campylobacter PCR Stool Cryptosporidium PCR Stl Sh Tox Pr E STEC PCR Stool E coli O157 PCR Stl Enterotoxigenic E PCR Stool EPEC (PCR) Stool EAEC (PCR) Stl E. histolytica PCR Stool Giardia Lamblia PCR Stl P. shigelloides PCR Stool Salmonella PCR Stool Sapovirus (PCR) Stl Shigella/EIEC PCR St Y.enterocolitica PCR Stool Vibrio (PCR) Stl Vibrio cholerae PCR Stl Norovirus GI/GII PCR Valproic Acid C. difficile Tox B Gene C. difficile Toxin A&B C. difficile Interpret 12/15/23 12/15/23 12/15/23 11:20 16:06 20:24 WBC RBC Hgb Hct MCV MCH MCHC RDW Plt Count MPV Immature Gran % (Auto) Neut % (Auto) Lymph % (Auto) [place] % (Auto) Eos % (Auto) Baso % (Auto) Lymph # (Auto) [place] # (Auto) Eos # (Auto) Baso # (Auto) Abs Immat Gran (auto) Absolute Neuts (auto) Absolute Nucleated RBC Nucleated RBC % (auto) Sodium Potassium Chloride Carbon Dioxide Anion Gap BUN Creatinine Estim Creat Clear Calc Estimated GFR POC Glucose 295 H 142 H 230 H Random Glucose Fasting Glucose Estimat Average Glucose Hemoglobin A1c % Calcium Total Bilirubin Direct Bilirubin AST ALT Alkaline Phosphatase Ammonia Total Protein Albumin Triglycerides Cholesterol LDL Cholesterol, Calc HDL Cholesterol Vitamin B12 Folate TSH Urine Color Urine Appearance Urine pH Ur Specific [place] Urine Protein Urine Glucose (UA) Urine Ketones Urine Blood Urine Nitrite Ur Leukocyte Esterase Urine RBC Urine WBC Ur Squamous Epith Cells Urine Bacteria Hyaline Casts Granular Casts Urine Yeast Stool Occult Blood Stl C. cayetanensis PCR Stool Rotavirus A PCR Stl Adenov F PCR Stool Astrovirus (PCR) Stool Campylobacter PCR Stool Cryptosporidium PCR Stl Sh Tox Pr E STEC PCR Stool E coli O157 PCR Stl Enterotoxigenic E PCR Stool EPEC (PCR) Stool EAEC (PCR) Stl E. histolytica PCR Stool Giardia Lamblia PCR Stl P. shigelloides PCR Stool Salmonella PCR Stool Sapovirus (PCR) Stl Shigella/EIEC PCR St Y.enterocolitica PCR Stool Vibrio (PCR) Stl Vibrio cholerae PCR Stl Norovirus GI/GII PCR Valproic Acid C. difficile Tox B Gene C. difficile Toxin A&B C. difficile Interpret 12/16/23 12/16/23 12/16/23 06:30 11:13 16:19 WBC RBC Hgb Hct MCV MCH MCHC RDW Plt Count MPV Immature Gran % (Auto) Neut % (Auto) Lymph % (Auto) [place] % (Auto) Eos % (Auto) Baso % (Auto) Lymph # (Auto) [place] # (Auto) Eos # (Auto) Baso # (Auto) Abs Immat Gran (auto) Absolute Neuts (auto) Absolute Nucleated RBC Nucleated RBC % (auto) Sodium Potassium Chloride Carbon Dioxide Anion Gap BUN Creatinine Estim Creat Clear Calc Estimated GFR POC Glucose 90 136 H 186 H Random Glucose Fasting Glucose Estimat Average Glucose Hemoglobin A1c % Calcium Total Bilirubin Direct Bilirubin AST ALT Alkaline Phosphatase Ammonia Total Protein Albumin Triglycerides Cholesterol LDL Cholesterol, Calc HDL Cholesterol Vitamin B12 Folate TSH Urine Color Urine Appearance Urine pH Ur Specific [place] Urine Protein Urine Glucose (UA) Urine Ketones Urine Blood Urine Nitrite Ur Leukocyte Esterase Urine RBC Urine WBC Ur Squamous Epith Cells Urine Bacteria Hyaline Casts Granular Casts Urine Yeast Stool Occult Blood Stl C. cayetanensis PCR Stool Rotavirus A PCR Stl Adenov PCR Stool Astrovirus (PCR) Stool Campylobacter PCR Stool Cryptosporidium PCR Stl Sh Tox Pr E STEC PCR Stool E coli O157 PCR Stl Enterotoxigenic E PCR Stool EPEC (PCR) Stool EAEC (PCR) Stl E. histolytica PCR Stool Giardia Lamblia PCR Stl P. shigelloides PCR Stool Salmonella PCR Stool Sapovirus (PCR) Stl Shigella/EIEC PCR St Y.enterocolitica PCR Stool Vibrio (PCR) Stl Vibrio cholerae PCR Stl Norovirus GI/GII PCR Valproic Acid C. difficile Tox B Gene C. difficile Toxin A&B C. difficile Interpret 12/16/23 12/17/23 12/17/23 20:22 06:40 08:06 WBC RBC Hgb Hct MCV MCH MCHC RDW Plt Count MPV Immature Gran % (Auto) Neut % (Auto) Lymph % (Auto) [place] % (Auto) Eos % (Auto) Baso % (Auto) Lymph # (Auto) [place] # (Auto) Eos # (Auto) Baso # (Auto) Abs Immat Gran (auto) Absolute Neuts (auto) Absolute Nucleated RBC Nucleated RBC % (auto) Sodium Potassium Chloride Carbon Dioxide Anion Gap BUN Creatinine Estim Creat Clear Calc Estimated GFR POC Glucose 196 H 139 H Random Glucose Fasting Glucose Estimat Average Glucose Hemoglobin A1c % Calcium Total Bilirubin Direct Bilirubin AST ALT Alkaline Phosphatase Ammonia Total Protein Albumin Triglycerides Cholesterol LDL Cholesterol, Calc HDL Cholesterol Vitamin B12 Folate TSH Urine Color Urine Appearance Urine pH Ur Specific [place] Urine Protein Urine Glucose (UA) Urine Ketones Urine Blood Urine Nitrite Ur Leukocyte Esterase Urine RBC Urine WBC Ur Squamous Epith Cells Urine Bacteria Hyaline Casts Granular Casts Urine Yeast Stool Occult Blood Stl C. cayetanensis PCR Stool Rotavirus A PCR Stl Adenov F 40/41 PCR Stool Astrovirus (PCR) Stool Campylobacter PCR Stool Cryptosporidium PCR Stl Sh Tox Pr E STEC PCR Stool E coli O157 PCR Stl Enterotoxigenic E PCR Stool EPEC (PCR) Stool EAEC (PCR) Stl E. histolytica PCR Stool Giardia Lamblia PCR Stl P. shigelloides PCR Stool Salmonella PCR Stool Sapovirus (PCR) Stl Shigella/EIEC PCR St Y.enterocolitica PCR Stool Vibrio (PCR) Stl Vibrio cholerae PCR Stl Norovirus GI/GII PCR Valproic Acid 24.9 L C. difficile Tox B Gene C. difficile Toxin A&B C. difficile Interpret 12/17/23 12/17/23 12/18/23 11:34 19:59 06:40 WBC RBC Hgb Hct MCV MCH MCHC RDW Plt Count MPV Immature Gran % (Auto) Neut % (Auto) Lymph % (Auto) [place] % (Auto) Eos % (Auto) Baso % (Auto) Lymph # (Auto) [place] # (Auto) Eos # (Auto) Baso # (Auto) Abs Immat Gran (auto) Absolute Neuts (auto) Absolute Nucleated RBC Nucleated RBC % (auto) Sodium Potassium Chloride Carbon Dioxide Anion Gap BUN Creatinine Estim Creat Clear Calc Estimated GFR POC Glucose 194 H 207 H 146 H Random Glucose Fasting Glucose Estimat Average Glucose Hemoglobin A1c % Calcium Total Bilirubin Direct Bilirubin AST ALT Alkaline Phosphatase Ammonia Total Protein Albumin Triglycerides Cholesterol LDL Cholesterol, Calc HDL Cholesterol Vitamin B12 Folate TSH Urine Color Urine Appearance Urine pH Ur Specific [place] Urine Protein Urine Glucose (UA) Urine Ketones Urine Blood Urine Nitrite Ur Leukocyte Esterase Urine RBC Urine WBC Ur Squamous Epith Cells Urine Bacteria Hyaline Casts Granular Casts Urine Yeast Stool Occult Blood Stl C. cayetanensis PCR Stool Rotavirus A PCR Stl Adenov F 40/41 PCR Stool Astrovirus (PCR) Stool Campylobacter PCR Stool Cryptosporidium PCR Stl Sh Tox Pr E STEC PCR Stool E coli O157 PCR Stl Enterotoxigenic E PCR Stool EPEC (PCR) Stool EAEC (PCR) Stl E. histolytica PCR Stool Giardia Lamblia PCR Stl P. shigelloides PCR Stool Salmonella PCR Stool Sapovirus (PCR) Stl Shigella/EIEC PCR St Y.enterocolitica PCR Stool Vibrio (PCR) Stl Vibrio cholerae PCR Stl Norovirus GI/GII PCR Valproic Acid C. difficile Tox B Gene C. difficile Toxin A&B C. difficile Interpret 12/18/23 12/18/23 12/18/23 11:31 16:32 19:57 WBC RBC Hgb Hct MCV MCH MCHC RDW Plt Count MPV Immature Gran % (Auto) Neut % (Auto) Lymph % (Auto) [place] % (Auto) Eos % (Auto) Baso % (Auto) Lymph # (Auto) [place] # (Auto) Eos # (Auto) Baso # (Auto) Abs Immat Gran (auto) Absolute Neuts (auto) Absolute Nucleated RBC Nucleated RBC % (auto) Sodium Potassium Chloride Carbon Dioxide Anion Gap BUN Creatinine Estim Creat Clear Calc Estimated GFR POC Glucose 149 H 126 H 134 H Random Glucose Fasting Glucose Estimat Average Glucose Hemoglobin A1c % Calcium Total Bilirubin Direct Bilirubin AST ALT Alkaline Phosphatase Ammonia Total Protein Albumin Triglycerides Cholesterol LDL Cholesterol, Calc HDL Cholesterol Vitamin B12 Folate TSH Urine Color Urine Appearance Urine pH Ur Specific [place] Urine Protein Urine Glucose (UA) Urine Ketones Urine Blood Urine Nitrite Ur Leukocyte Esterase Urine RBC Urine WBC Ur Squamous Epith Cells Urine Bacteria Hyaline Casts Granular Casts Urine Yeast Stool Occult Blood Stl C. cayetanensis PCR Stool Rotavirus A PCR Stl Adenov PCR Stool Astrovirus (PCR) Stool Campylobacter PCR Stool Cryptosporidium PCR Stl Sh Tox Pr E STEC PCR Stool E coli O157 PCR Stl Enterotoxigenic E PCR Stool EPEC (PCR) Stool EAEC (PCR) Stl E. histolytica PCR Stool Giardia Lamblia PCR Stl P. shigelloides PCR Stool Salmonella PCR Stool Sapovirus (PCR) Stl Shigella/EIEC PCR St Y.enterocolitica PCR Stool Vibrio (PCR) Stl Vibrio cholerae PCR Stl Norovirus GI/GII PCR Valproic Acid C. difficile Tox B Gene C. difficile Toxin A&B C. difficile Interpret 12/19/23 12/19/23 12/19/23 06:12 11:04 16:05 WBC RBC Hgb Hct MCV MCH MCHC RDW Plt Count MPV Immature Gran % (Auto) Neut % (Auto) Lymph % (Auto) [place] % (Auto) Eos % (Auto) Baso % (Auto) Lymph # (Auto) [place] # (Auto) Eos # (Auto) Baso # (Auto) Abs Immat Gran (auto) Absolute Neuts (auto) Absolute Nucleated RBC Nucleated RBC % (auto) Sodium Potassium Chloride Carbon Dioxide Anion Gap BUN Creatinine Estim Creat Clear Calc Estimated GFR POC Glucose 123 H 116 H 121 H Random Glucose Fasting Glucose Estimat Average Glucose Hemoglobin A1c % Calcium Total Bilirubin Direct Bilirubin AST ALT Alkaline Phosphatase Ammonia Total Protein Albumin Triglycerides Cholesterol LDL Cholesterol, Calc HDL Cholesterol Vitamin B12 Folate TSH Urine Color Urine Appearance Urine pH Ur Specific [place] Urine Protein Urine Glucose (UA) Urine Ketones Urine Blood Urine Nitrite Ur Leukocyte Esterase Urine RBC Urine WBC Ur Squamous Epith Cells Urine Bacteria Hyaline Casts Granular Casts Urine Yeast Stool Occult Blood Stl C. cayetanensis PCR Stool Rotavirus A PCR Stl Adenov PCR Stool Astrovirus (PCR) Stool Campylobacter PCR Stool Cryptosporidium PCR Stl Sh Tox Pr E STEC PCR Stool E coli O157 PCR Stl Enterotoxigenic E PCR Stool EPEC (PCR) Stool EAEC (PCR) Stl E. histolytica PCR Stool Giardia Lamblia PCR Stl P. shigelloides PCR Stool Salmonella PCR Stool Sapovirus (PCR) Stl Shigella/EIEC PCR St Y.enterocolitica PCR Stool Vibrio (PCR) Stl Vibrio cholerae PCR Stl Norovirus GI/GII PCR Valproic Acid C. difficile Tox B Gene C. difficile Toxin A&B C. difficile Interpret 12/19/23 12/20/23 12/20/23 19:35 06:05 11:29 WBC RBC Hgb Hct MCV MCH MCHC RDW Plt Count MPV Immature Gran % (Auto) Neut % (Auto) Lymph % (Auto) [place] % (Auto) Eos % (Auto) Baso % (Auto) Lymph # (Auto) [place] # (Auto) Eos # (Auto) Baso # (Auto) Abs Immat Gran (auto) Absolute Neuts (auto) Absolute Nucleated RBC Nucleated RBC % (auto) Sodium Potassium Chloride Carbon Dioxide Anion Gap BUN Creatinine Estim Creat Clear Calc Estimated GFR POC Glucose 275 H 111 192 H Random Glucose Fasting Glucose Estimat Average Glucose Hemoglobin A1c % Calcium Total Bilirubin Direct Bilirubin AST ALT Alkaline Phosphatase Ammonia Total Protein Albumin Triglycerides Cholesterol LDL Cholesterol, Calc HDL Cholesterol Vitamin B12 Folate TSH Urine Color Urine Appearance Urine pH Ur Specific [place] Urine Protein Urine Glucose (UA) Urine Ketones Urine Blood Urine Nitrite Ur Leukocyte Esterase Urine RBC Urine WBC Ur Squamous Epith Cells Urine Bacteria Hyaline Casts Granular Casts Urine Yeast Stool Occult Blood Stl C. cayetanensis PCR Stool Rotavirus A PCR Stl Adenov F 40/41 PCR Stool Astrovirus (PCR) Stool Campylobacter PCR Stool Cryptosporidium PCR Stl Sh Tox Pr E STEC PCR Stool E coli O157 PCR Stl Enterotoxigenic E PCR Stool EPEC (PCR) Stool EAEC (PCR) Stl E. histolytica PCR Stool Giardia Lamblia PCR Stl P. shigelloides PCR Stool Salmonella PCR Stool Sapovirus (PCR) Stl Shigella/EIEC PCR St Y.enterocolitica PCR Stool Vibrio (PCR) Stl Vibrio cholerae PCR Stl Norovirus GI/GII PCR Valproic Acid C. difficile Tox B Gene C. difficile Toxin A&B C. difficile Interpret 12/20/23 12/20/23 12/21/23 16:28 21:00 06:42 WBC RBC Hgb Hct MCV MCH MCHC RDW Plt Count MPV Immature Gran % (Auto) Neut % (Auto) Lymph % (Auto) [place] % (Auto) Eos % (Auto) Baso % (Auto) Lymph # (Auto) [place] # (Auto) Eos # (Auto) Baso # (Auto) Abs Immat Gran (auto) Absolute Neuts (auto) Absolute Nucleated RBC Nucleated RBC % (auto) Sodium Potassium Chloride Carbon Dioxide Anion Gap BUN Creatinine Estim Creat Clear Calc Estimated GFR POC Glucose 187 H 253 H 131 H Random Glucose Fasting Glucose Estimat Average Glucose Hemoglobin A1c % Calcium Total Bilirubin Direct Bilirubin AST ALT Alkaline Phosphatase Ammonia Total Protein Albumin Triglycerides Cholesterol LDL Cholesterol, Calc HDL Cholesterol Vitamin B12 Folate TSH Urine Color Urine Appearance Urine pH Ur Specific [place] Urine Protein Urine Glucose (UA) Urine Ketones Urine Blood Urine Nitrite Ur Leukocyte Esterase Urine RBC Urine WBC Ur Squamous Epith Cells Urine Bacteria Hyaline Casts Granular Casts Urine Yeast Stool Occult Blood Stl C. cayetanensis PCR Stool Rotavirus A PCR Stl Adenov F 40/41 PCR Stool Astrovirus (PCR) Stool Campylobacter PCR Stool Cryptosporidium PCR Stl Sh Tox Pr E STEC PCR Stool E coli O157 PCR Stl Enterotoxigenic E PCR Stool EPEC (PCR) Stool EAEC (PCR) Stl E. histolytica PCR Stool Giardia Lamblia PCR Stl P. shigelloides PCR Stool Salmonella PCR Stool Sapovirus (PCR) Stl Shigella/EIEC PCR St Y.enterocolitica PCR Stool Vibrio (PCR) Stl Vibrio cholerae PCR Stl Norovirus GI/GII PCR Valproic Acid C. difficile Tox B Gene C. difficile Toxin A&B C. difficile Interpret 12/21/23 12/21/23 12/21/23 11:17 16:05 19:55 WBC RBC Hgb Hct MCV MCH MCHC RDW Plt Count MPV Immature Gran % (Auto) Neut % (Auto) Lymph % (Auto) [place] % (Auto) Eos % (Auto) Baso % (Auto) Lymph # (Auto) [place] # (Auto) Eos # (Auto) Baso # (Auto) Abs Immat Gran (auto) Absolute Neuts (auto) Absolute Nucleated RBC Nucleated RBC % (auto) Sodium Potassium Chloride Carbon Dioxide Anion Gap BUN Creatinine Estim Creat Clear Calc Estimated GFR POC Glucose 234 H 155 H 209 H Random Glucose Fasting Glucose Estimat Average Glucose Hemoglobin A1c % Calcium Total Bilirubin Direct Bilirubin AST ALT Alkaline Phosphatase Ammonia Total Protein Albumin Triglycerides Cholesterol LDL Cholesterol, Calc HDL Cholesterol Vitamin B12 Folate TSH Urine Color Urine Appearance Urine pH Ur Specific [place] Urine Protein Urine Glucose (UA) Urine Ketones Urine Blood Urine Nitrite Ur Leukocyte Esterase Urine RBC Urine WBC Ur Squamous Epith Cells Urine Bacteria Hyaline Casts Granular Casts Urine Yeast Stool Occult Blood Stl C. cayetanensis PCR Stool Rotavirus A PCR Stl Adenov F PCR Stool Astrovirus (PCR) Stool Campylobacter PCR Stool Cryptosporidium PCR Stl Sh Tox Pr E STEC PCR Stool E coli O157 PCR Stl Enterotoxigenic E PCR Stool EPEC (PCR) Stool EAEC (PCR) Stl E. histolytica PCR Stool Giardia Lamblia PCR Stl P. shigelloides PCR Stool Salmonella PCR Stool Sapovirus (PCR) Stl Shigella/EIEC PCR St Y.enterocolitica PCR Stool Vibrio (PCR) Stl Vibrio cholerae PCR Stl Norovirus GI/GII PCR Valproic Acid C. difficile Tox B Gene C. difficile Toxin A&B C. difficile Interpret 12/22/23 12/22/23 12/22/23 06:35 11:29 16:31 WBC RBC Hgb Hct MCV MCH MCHC RDW Plt Count MPV Immature Gran % (Auto) Neut % (Auto) Lymph % (Auto) [place] % (Auto) Eos % (Auto) Baso % (Auto) Lymph # (Auto) [place] # (Auto) Eos # (Auto) Baso # (Auto) Abs Immat Gran (auto) Absolute Neuts (auto) Absolute Nucleated RBC Nucleated RBC % (auto) Sodium Potassium Chloride Carbon Dioxide Anion Gap BUN Creatinine Estim Creat Clear Calc Estimated GFR POC Glucose 131 H 224 H 194 H Random Glucose Fasting Glucose Estimat Average Glucose Hemoglobin A1c % Calcium Total Bilirubin Direct Bilirubin AST ALT Alkaline Phosphatase Ammonia Total Protein Albumin Triglycerides Cholesterol LDL Cholesterol, Calc HDL Cholesterol Vitamin B12 Folate TSH Urine Color Urine Appearance Urine pH Ur Specific [place] Urine Protein Urine Glucose (UA) Urine Ketones Urine Blood Urine Nitrite Ur Leukocyte Esterase Urine RBC Urine WBC Ur Squamous Epith Cells Urine Bacteria Hyaline Casts Granular Casts Urine Yeast Stool Occult Blood Stl C. cayetanensis PCR Stool Rotavirus A PCR Stl Adenov F PCR Stool Astrovirus (PCR) Stool Campylobacter PCR Stool Cryptosporidium PCR Stl Sh Tox Pr E STEC PCR Stool E coli O157 PCR Stl Enterotoxigenic E PCR Stool EPEC (PCR) Stool EAEC (PCR) Stl E. histolytica PCR Stool Giardia Lamblia PCR Stl P. shigelloides PCR Stool Salmonella PCR Stool Sapovirus (PCR) Stl Shigella/EIEC PCR St Y.enterocolitica PCR Stool Vibrio (PCR) Stl Vibrio cholerae PCR Stl Norovirus GI/GII PCR Valproic Acid C. difficile Tox B Gene C. difficile Toxin A&B C. difficile Interpret 12/22/23 12/23/23 12/23/23 19:59 05:19 11:21 WBC RBC Hgb Hct MCV MCH MCHC RDW Plt Count MPV Immature Gran % (Auto) Neut % (Auto) Lymph % (Auto) [place] % (Auto) Eos % (Auto) Baso % (Auto) Lymph # (Auto) [place] # (Auto) Eos # (Auto) Baso # (Auto) Abs Immat Gran (auto) Absolute Neuts (auto) Absolute Nucleated RBC Nucleated RBC % (auto) Sodium Potassium Chloride Carbon Dioxide Anion Gap BUN Creatinine Estim Creat Clear Calc Estimated GFR POC Glucose 255 H 121 H 124 H Random Glucose Fasting Glucose Estimat Average Glucose Hemoglobin A1c % Calcium Total Bilirubin Direct Bilirubin AST ALT Alkaline Phosphatase Ammonia Total Protein Albumin Triglycerides Cholesterol LDL Cholesterol, Calc HDL Cholesterol Vitamin B12 Folate TSH Urine Color Urine Appearance Urine pH Ur Specific [place] Urine Protein Urine Glucose (UA) Urine Ketones Urine Blood Urine Nitrite Ur Leukocyte Esterase Urine RBC Urine WBC Ur Squamous Epith Cells Urine Bacteria Hyaline Casts Granular Casts Urine Yeast Stool Occult Blood Stl C. cayetanensis PCR Stool Rotavirus A PCR Stl Adenov F 40/41 PCR Stool Astrovirus (PCR) Stool Campylobacter PCR Stool Cryptosporidium PCR Stl Sh Tox Pr E STEC PCR Stool E coli O157 PCR Stl Enterotoxigenic E PCR Stool EPEC (PCR) Stool EAEC (PCR) Stl E. histolytica PCR Stool Giardia Lamblia PCR Stl P. shigelloides PCR Stool Salmonella PCR Stool Sapovirus (PCR) Stl Shigella/EIEC PCR St Y.enterocolitica PCR Stool Vibrio (PCR) Stl Vibrio cholerae PCR Stl Norovirus GI/GII PCR Valproic Acid C. difficile Tox B Gene C. difficile Toxin A&B C. difficile Interpret 12/23/23 12/23/23 12/24/23 16:07 20:29 06:20 WBC RBC Hgb Hct MCV MCH MCHC RDW Plt Count MPV Immature Gran % (Auto) Neut % (Auto) Lymph % (Auto) [place] % (Auto) Eos % (Auto) Baso % (Auto) Lymph # (Auto) [place] # (Auto) Eos # (Auto) Baso # (Auto) Abs Immat Gran (auto) Absolute Neuts (auto) Absolute Nucleated RBC Nucleated RBC % (auto) Sodium Potassium Chloride Carbon Dioxide Anion Gap BUN Creatinine Estim Creat Clear Calc Estimated GFR POC Glucose 132 H 308 H 144 H Random Glucose Fasting Glucose Estimat Average Glucose Hemoglobin A1c % Calcium Total Bilirubin Direct Bilirubin AST ALT Alkaline Phosphatase Ammonia Total Protein Albumin Triglycerides Cholesterol LDL Cholesterol, Calc HDL Cholesterol Vitamin B12 Folate TSH Urine Color Urine Appearance Urine pH Ur Specific [place] Urine Protein Urine Glucose (UA) Urine Ketones Urine Blood Urine Nitrite Ur Leukocyte Esterase Urine RBC Urine WBC Ur Squamous Epith Cells Urine Bacteria Hyaline Casts Granular Casts Urine Yeast Stool Occult Blood Stl C. cayetanensis PCR Stool Rotavirus A PCR Stl Adenov F 40/41 PCR Stool Astrovirus (PCR) Stool Campylobacter PCR Stool Cryptosporidium PCR Stl Sh Tox Pr E STEC PCR Stool E coli O157 PCR Stl Enterotoxigenic E PCR Stool EPEC (PCR) Stool EAEC (PCR) Stl E. histolytica PCR Stool Giardia Lamblia PCR Stl P. shigelloides PCR Stool Salmonella PCR Stool Sapovirus (PCR) Stl Shigella/EIEC PCR St Y.enterocolitica PCR Stool Vibrio (PCR) Stl Vibrio cholerae PCR Stl Norovirus GI/GII PCR Valproic Acid C. difficile Tox B Gene C. difficile Toxin A&B C. difficile Interpret 12/24/23 12/24/23 12/24/23 07:46 11:28 16:25 WBC RBC Hgb Hct MCV MCH MCHC RDW Plt Count MPV Immature Gran % (Auto) Neut % (Auto) Lymph % (Auto) [place] % (Auto) Eos % (Auto) Baso % (Auto) Lymph # (Auto) [place] # (Auto) Eos # (Auto) Baso # (Auto) Abs Immat Gran (auto) Absolute Neuts (auto) Absolute Nucleated RBC Nucleated RBC % (auto) Sodium Potassium Chloride Carbon Dioxide Anion Gap BUN Creatinine Estim Creat Clear Calc Estimated GFR POC Glucose 141 H 437 H* 155 H Random Glucose Fasting Glucose Estimat Average Glucose Hemoglobin A1c % Calcium Total Bilirubin Direct Bilirubin AST ALT Alkaline Phosphatase Ammonia Total Protein Albumin Triglycerides Cholesterol LDL Cholesterol, Calc HDL Cholesterol Vitamin B12 Folate TSH Urine Color Urine Appearance Urine pH Ur Specific [place] Urine Protein Urine Glucose (UA) Urine Ketones Urine Blood Urine Nitrite Ur Leukocyte Esterase Urine RBC Urine WBC Ur Squamous Epith Cells Urine Bacteria Hyaline Casts Granular Casts Urine Yeast Stool Occult Blood Stl C. cayetanensis PCR Stool Rotavirus A PCR Stl Adenov F 40 PCR Stool Astrovirus (PCR) Stool Campylobacter PCR Stool Cryptosporidium PCR Stl Sh Tox Pr E STEC PCR Stool E coli O157 PCR Stl Enterotoxigenic E PCR Stool EPEC (PCR) Stool EAEC (PCR) Stl E. histolytica PCR Stool Giardia Lamblia PCR Stl P. shigelloides PCR Stool Salmonella PCR Stool Sapovirus (PCR) Stl Shigella/EIEC PCR St Y.enterocolitica PCR Stool Vibrio (PCR) Stl Vibrio cholerae PCR Stl Norovirus GI/GII PCR Valproic Acid C. difficile Tox B Gene C. difficile Toxin A&B C. difficile Interpret 12/24/23 12/25/23 20:04 06:11 WBC RBC Hgb Hct MCV MCH MCHC RDW Plt Count MPV Immature Gran % (Auto) Neut % (Auto) Lymph % (Auto) [place] % (Auto) Eos % (Auto) Baso % (Auto) Lymph # (Auto) [place] # (Auto) Eos # (Auto) Baso # (Auto) Abs Immat Gran (auto) Absolute Neuts (auto) Absolute Nucleated RBC Nucleated RBC % (auto) Sodium Potassium Chloride Carbon Dioxide Anion Gap BUN Creatinine Estim Creat Clear Calc Estimated GFR POC Glucose 299 H 171 H Random Glucose Fasting Glucose Estimat Average Glucose Hemoglobin A1c % Calcium Total Bilirubin Direct Bilirubin AST ALT Alkaline Phosphatase Ammonia Total Protein Albumin Triglycerides Cholesterol LDL Cholesterol, Calc HDL Cholesterol Vitamin B12 Folate TSH Urine Color Urine Appearance Urine pH Ur Specific [place] Urine Protein Urine Glucose (UA) Urine Ketones Urine Blood Urine Nitrite Ur Leukocyte Esterase Urine RBC Urine WBC Ur Squamous Epith Cells Urine Bacteria Hyaline Casts Granular Casts Urine Yeast Stool Occult Blood Stl C. cayetanensis PCR Stool Rotavirus A PCR Stl Adenov F 40 PCR Stool Astrovirus (PCR) Stool Campylobacter PCR Stool Cryptosporidium PCR Stl Sh Tox Pr E STEC PCR Stool E coli O157 PCR Stl Enterotoxigenic E PCR Stool EPEC (PCR) Stool EAEC (PCR) Stl E. histolytica PCR Stool Giardia Lamblia PCR Stl P. shigelloides PCR Stool Salmonella PCR Stool Sapovirus (PCR) Stl Shigella/EIEC PCR St Y.enterocolitica PCR Stool Vibrio (PCR) Stl Vibrio cholerae PCR Stl Norovirus GI/GII PCR Valproic Acid C. difficile Tox B Gene C. difficile Toxin A&B C. difficile Interpret Airway Mallampati Class: II TM Dist: <=3cm Neck ROM: Full Denture: Upper Heart: ok Lungs: ok Assessment and Plan Assessment Anesthesia Assessment: Anesthesia Plan Discussed and Chart Reviewed Final Anesthetic Review Family History of Problems with Anesthesia: No History of Problems with Anesthesia: No NPO: Yes ASA Class: III Final Preanesthetic Review: No Changes in Pt Med Stat, Meds/Allgs Chart Reviewed, Consent Obtained/Reviewed and Anes Risks/Benef Reviewed Patient Risk: Intermediate Procedure Risk: Intermediate Anesthetic Plan Anesthetic Plan: GA and Agree w/ Assess. and Plan Disposition: Standard PACU
[2023-12-25] MEDS: Anastrozole 1 MG TABLET PO (10:12)
--- NOTE | 2023-12-25 10:12 | P.PNPSI_ITS ---
Subjective Subjective Date of Service: 12/25/23 Reason For Visit: Major depressive disorder, severe, recurrent Subjective Notes: Conditional Voluntary Interim History: The nursing staff reported the patient had been on her bed most of the time, the staff reported that she spit her medications last night. She did not have breakfast or lunch yesterday but she had dinner. Today she had ECT in the morning, she was a little more verbal and denies pain or any other symptoms. She looks postictal slightly confused. Mental Status Exam Mental Status Exam Patient Appearance: Appropriate Patient Orientation: Person and Situation Level of Consciousness: Awake and Appropriate Patient Behavior: Guarded and Passive Mood Description: Withdrawn Affect Description: Constricted Patient Cognition Impaired: Yes Ability to Follow Directions: Good Speech Pattern: Clear Hallucinations: None Delusions: Not Present Thought Process: Distracted and Slowed Thinking Thought Content: positive for [place] and positive for Poverty of Content Judgement: Poor Diagnostics Vital Signs (24Hr): Vital Signs - 24 hr 12/24/23 20:00 12/25/23 05:40 12/25/23 06:16 Temperature 97.3 F 97 F 97 F Pulse Rate 66 60 60 Respiratory Rate 16 16 16 Blood Pressure 115/56 L 105/59 L 105/59 L Pulse Oximetry 98 95 Oxygen Delivery Method Room Air Room Air Oxygen Flow Rate 12/25/23 06:32 12/25/23 08:04 12/25/23 08:09 Temperature 96.1 F L 97.5 F Pulse Rate 63 93 117 H Respiratory Rate 20 20 16 Blood Pressure 101/56 L 140/62 H 148/88 H Pulse Oximetry 97 100 100 Oxygen Delivery Method Room Air Nasal Cannula with ETCO2 Nasal Cannula with ETCO2 Oxygen Flow Rate 2 2 12/25/23 08:14 12/25/23 08:19 12/25/23 08:34 Temperature 98.1 F Pulse Rate 108 H 95 90 Respiratory Rate 16 16 17 Blood Pressure 157/74 H 164/71 H 164/71 H Pulse Oximetry 98 97 98 Oxygen Delivery Method Nasal Cannula with ETCO2 Room Air Room Air Oxygen Flow Rate 2 12/25/23 09:05 Temperature 98.6 F Pulse Rate 82 Respiratory Rate 16 Blood Pressure 134/60 Pulse Oximetry 97 Oxygen Delivery Method Oxygen Flow Rate BMI result Body Mass Index 20.1 Labs 12/09/23 09:57 12/14/23 07:37 Labs: Laboratory Results - last 48 hr 12/23/23 12/23/23 12/23/23 11:21 16:07 20:29 POC Glucose 124 H 132 H 308 H 12/24/23 12/24/23 12/24/23 06:20 07:46 11:28 POC Glucose 144 H 141 H 437 H* 12/24/23 12/24/23 12/25/23 16:25 20:04 06:11 POC Glucose 155 H 299 H 171 H Imaging Radiology Impressions: ITS Impressions Chest X-Ray 12/03/23 12:20 IMPRESSION: 1. Chronic interstitial prominence without focal consolidative airspace opacity. 2. Densities along the left lower chest which may represent pleural calcifications versus soft tissue calcifications. Correlation with lateral radiograph could help further evaluate. Electronically signed by: Viral Smallwood MD 12/03/2023 01:33 PM EDT RP Head CT 12/03/23 13:17 IMPRESSION: 1. No acute intracranial abnormalities. No intracranial hemorrhage or mass effect. 2. Moderate small vessel ischemic changes in the hemispheric white matter. 3. 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 4. Age advanced cerebral and cerebellar involutional changes with prominent ventricles. Cannot definitively exclude a component of communicating hydrocephalus given the appearance. Head CT 12/10/23 21:05 IMPRESSION: No acute intracranial abnormality including hemorrhage, mass effect, hydrocephalus, or acute territorial edematous infarction. Electronically signed by: Juan Alberto Murdock MD 12/10/2023 10:07 PM EDT RP Medications Medications Current Medications Acetaminophen (Acetaminophen 325 Mg Tablet) 650 mg PO Q6H PRN PRN Reason: Headache/Pain Mild Scale (1-3) Al Hydroxide/Mg Hydroxide (Magnesium Hydrox/Alum Hydrox 30 Ml Oral.Susp) 30 ml PO Q6H PRN PRN Reason: Heartburn/Nausea Amlodipine Besylate (Amlodipine Besylate 5 Mg Tablet) 5 mg PO DAILY [facility]; Protocol Last Admin: 12/24/23 09:22 Dose: Not Given Anastrozole (Anastrozole 1 Mg Tablet) 1 mg PO DAILY [facility] Last Admin: 12/24/23 08:47 Dose: 1 mg Aspirin (Aspirin 81 Mg Tab.Chew) 81 mg PO DAILY [facility] Last Admin: 12/24/23 08:47 Dose: 81 mg Atorvastatin Calcium (Atorvastatin Calcium 10 Mg Tablet) 10 mg PO BEDTIME [facility] Last Admin: 12/24/23 20:43 Dose: 10 mg Ferrous Sulfate (Ferrous Sulfate 324 Mg Tablet.) 324 mg PO DAILY [facility] Last Admin: 12/24/23 08:47 Dose: 324 mg Furosemide (Furosemide 20 Mg Tablet) 20 mg PO DAILY [facility]; Protocol Last Admin: 12/24/23 09:20 Dose: 20 mg Glucose (Glucose Gel 15 Gm Gel..Gram.) 15 gm PO Q15M PRN; Protocol PRN Reason: per Hypoglycemia Standing Ord. Dextrose (D10) 250 mls @ 750 mls/hr IV Q15M PRN; Protocol PRN Reason: per Hypoglycemia Standing Ord. Insulin Glargine (Insulin Glargine,Hum.Rec.Anlog 100 Unit/Ml 10 Ml Vial) 6 unit SUBCUT BEDTIME [facility] Last Admin: 12/24/23 20:52 Dose: 6 unit Insulin Human Lispro (Insulin Lispro 100 Unit/Ml 3 Ml Vial) 0 unit SUBCUT QIDACHS [facility]; Protocol Last Admin: 12/24/23 20:53 Dose: 6 unit Loratadine (Loratadine 10 Mg Tablet) 10 mg PO BEDTIME [facility] Last Admin: 12/24/23 20:44 Dose: 10 mg Losartan Potassium (Losartan Potassium 50 Mg Tablet) 100 mg PO DAILY [facility]; Protocol Last Admin: 12/24/23 09:22 Dose: Not Given Magnesium Hydroxide (Milk Of Magnesia 30 Ml Oral.Susp) 30 ml PO DAILY PRN PRN Reason: Constipation Magnesium Oxide (Magnesium Oxide 400 Mg Tablet) 400 mg PO BID [facility] Last Admin: 12/24/23 20:44 Dose: 400 mg Mirtazapine (Mirtazapine 30 Mg Tablet) 30 mg PO BEDTIME [facility] Last Admin: 12/24/23 20:44 Dose: 30 mg Multivitamins/Vitamin C (Multivitamin Tablet) 1 tab PO DAILY [facility] Last Admin: 12/24/23 09:22 Dose: Not Given Naloxone HCl (Naloxone Hcl 0.4 Mg/Ml Vial) 0.04 mg IVPUSH Q5M PRN PRN Reason: Excessive sedation or RR < 8 Nicotine Polacrilex (Nicotine Polacrilex 2 Mg Gum) 4 mg BUCCAL Q2H PRN PRN Reason: Nicotine Cravings Omeprazole (Omeprazole 20 Mg Capsule.) 20 mg PO DAILY@0630 [facility] Last Admin: 12/25/23 05:46 Dose: Not Given Risperidone (Risperidone 0.5 Mg Tablet) 0.5 mg PO BID PRN PRN Reason: Restlessness Thiamine HCl (Thiamine Hcl 100 Mg Tablet) 100 mg PO DAILY [facility] Last Admin: 12/24/23 09:19 Dose: 100 mg Trazodone HCl (Trazodone Hcl 50 Mg Tablet) 50 mg PO BEDTIME PRN PRN Reason: Insomnia Last Admin: 12/08/23 22:06 Dose: 50 mg Valproic Acid (Valproic Acid (As Sodium Salt) 250 Mg/5 Ml Solution) 250 mg PO BID [facility] Last Admin: 12/24/23 20:49 Dose: 250 mg Allergies Allergies Allergy/AdvReac Type Severity Reaction Status Date / Time atropine Allergy Unknown Shortness Verified 12/02/23 23:30 of Breath enoxaparin [From Lovenox] Allergy Unknown Unknown Verified 12/02/23 23:30 penicillin V Allergy Unknown Unknown Verified 03/19/23 07:30 pseudoephedrine [Aprodine] Allergy Unknown Unknown Verified 03/19/23 07:30 triprolidine [Aprodine] Allergy Unknown Unknown Verified 03/19/23 07:30 Assessment & Plan Assessment & Plan (1) Major depressive disorder with psychotic features: Status: Acute Code(s): F32.3 - Major depressive disorder, single episode, severe with psychotic features Assessment and Plan: 12/15/23: Continue tx plan Plan 73-year-old female with history of insulin-dependent type 2 diabetes, hypertension, hyperlipidemia, history of C diff colitis, hypothyroidism, heart failure preserved ejection fraction, cirrhosis admitted to [facility] for catatonia with consult placed to hospitalist service for ect risk stratification. Pt with class II risk on revised cardiac risk index given history of CHF though is clinically euvolemic on exam. Lungs are clear. Has known but no murmurs heard on exam. Would recommend checking EKG to assess for ECT prolongation prior to ECT treatment. Unable to assess ROS. Based on RCRI and known history of ECT with good tolerance there does not appear to be any acute medical contraindication that should preclude patient from undergoing ect. Appropriate anesthesia precautions should be taken given known history of BASIL. Pt also noted to have equal but fixed pupils on exam which was not noted on initial H&P. She is catatonic and unable to participate in further CN exam or provide history. Did have Head CT on 12/02 negative for acute intracranial abnormalities which showed moderate small-vessel ischemic changes in hemispheric white matter numerous old lacunar infarcts as well as age advanced cerebral and cerebellar involutional changes with prominent ventricles. At this time, recommend repeating head CT and can consider Neurology evaluation at discretion of psychiatrist Will continue following for results Plan 1. Continue with same treatment. 2. Continue with ECT as scheduled. 3. Cardiology has cleared her. Reason for continued inpatient stay Substantial Risk for: inability to function, rapid decompensation and med/psych decompensation Time Spent With Patient Time: Total time managing care of this patient today __20__ minutes.
[2023-12-25] MEDS: Losartan Potassium 50 MG TABLET 100 MG PO (10:13)
[2023-12-25] MEDS: amLODIPine Besylate 5 MG TABLET PO (10:13)
[2023-12-25] MEDS: Furosemide 20 MG TABLET PO (10:15)
[2023-12-25] MEDS: Ferrous Sulfate 324 MG TABLET.DR PO (10:17)
[2023-12-25] MEDS: Magnesium Oxide 400 MG TABLET PO ×2 (10:17→21:24)
[2023-12-25] MEDS: Aspirin 81 MG TAB.CHEW PO (10:17)
[2023-12-25] MEDS: Multivitamin TABLET 1 TAB PO (10:18)
[2023-12-25] MEDS: Thiamine HCL 100 MG TABLET PO (10:18)
[2023-12-25] MEDS: Insulin Lispro 100 UNIT/ML 3 ML VIAL SUBCUT ×3 (10:37→21:23)
[2023-12-25 11:40] LABS: Glucose, Whole Blood 244 mg/dL (60-115)
--- NOTE | 2023-12-25 14:42 | MHC.CLN ---
F/U DIET=REGULAR. ENSURE MAX BID PROVIDES 300 KCALS, 60 G PROTEIN. OVERALL INTAKE APPEARS IMPROVED, BITES TO 75%. STAGE II PRESSURE INJURY TO COCCYX. MONITOR FOR PLAN OF CARE, INTAKE, AND WOUND HEALING. RD TO FOLLOW WEEKLY.
[2023-12-25] MEDS: 0.9 % Sodium Chloride Flush 3 ML SYRINGE IVFLUSH (16:21)
[2023-12-25 16:33] LABS: Glucose, Whole Blood 213 mg/dL (60-115)
[2023-12-25 20:05] LABS: Glucose, Whole Blood 264 mg/dL (60-115)
[2023-12-25] MEDS: Insulin Glargine,Hum.rec.anlog 100 UNIT/ML 10 ML VIAL 6 UNIT SUBCUT (21:22)
[2023-12-25] MEDS: Atorvastatin Calcium 10 MG TABLET PO (21:24)
[2023-12-25] MEDS: Mirtazapine 30 MG TABLET PO (21:24)
[2023-12-25] MEDS: Loratadine 10 MG TABLET PO (21:24)
[2023-12-26] MEDS: 0.9 % Sodium Chloride Flush 3 ML SYRINGE IVFLUSH ×3 (01:39→17:27)
[2023-12-26 06:58] LABS: Glucose, Whole Blood 184 mg/dL (60-115)
[2023-12-26 07:00] VITALS: BMI 21.7
[2023-12-26 08:17] VITALS: BP 108/55; PULSE 60; RESP 14; TEMP 36.8; O2SAT 96
[2023-12-26] MEDS: Ferrous Sulfate 324 MG TABLET.DR PO (08:20)
[2023-12-26] MEDS: Multivitamin TABLET 1 TAB PO (08:20)
[2023-12-26] MEDS: Furosemide 20 MG TABLET PO (08:21)
[2023-12-26] MEDS: amLODIPine Besylate 5 MG TABLET PO (08:22)
[2023-12-26] MEDS: Losartan Potassium 50 MG TABLET 100 MG PO (08:22)
[2023-12-26] MEDS: Aspirin 81 MG TAB.CHEW PO (08:22)
[2023-12-26] MEDS: Thiamine HCL 100 MG TABLET PO (08:22)
[2023-12-26] MEDS: Insulin Lispro 100 UNIT/ML 3 ML VIAL SUBCUT ×4 (08:23→20:32)
[2023-12-26] MEDS: Magnesium Oxide 400 MG TABLET PO ×2 (08:23→20:30)
[2023-12-26] MEDS: Anastrozole 1 MG TABLET PO (08:23)
--- NOTE | 2023-12-26 11:03 | P.PNPSI_ITS ---
Subjective Subjective Date of Service: 12/26/23 Reason For Visit: Major depressive disorder, severe, recurrent Subjective Notes: Conditional Voluntary Interim History: The nursing staff reported the patient had been hypoactive, after ECT she looks slightly more active. The social services specialist reported the family wants her back home but they are not fully aware of all the needs that she has since she is total care. On interview the patient was more awake alert a little more verbal stating that she is doing better. We are going to have a family meeting next Saturday. Mental Status Exam Mental Status Exam Patient Appearance: Appropriate Patient Orientation: Person and Situation Level of Consciousness: Awake and Appropriate Patient Behavior: Guarded and Passive Mood Description: Withdrawn Affect Description: Constricted Patient Cognition Impaired: Yes Ability to Follow Directions: Good Speech Pattern: Clear Hallucinations: None Delusions: Not Present Thought Process: Distracted Thought Content: positive for [place] and positive for Poverty of Content Judgement: Fair Diagnostics Vital Signs (24Hr): Vital Signs - 24 hr 12/25/23 20:00 12/26/23 08:17 Temperature 98.5 F 98.2 F Pulse Rate 73 60 Respiratory Rate 16 14 Blood Pressure 99/58 L 108/55 L Pulse Oximetry 96 96 Oxygen Delivery Method Room Air Room Air BMI result Body Mass Index 20.1 Labs 12/09/23 09:57 12/14/23 07:37 Labs: Laboratory Results - last 48 hr 12/24/23 12/24/23 12/24/23 11:28 16:25 20:04 POC Glucose 437 H* 155 H 299 H 12/25/23 12/25/23 12/25/23 06:11 11:37 16:27 POC Glucose 171 H 244 H 213 H 12/25/23 12/26/23 19:53 06:50 POC Glucose 264 H 184 H Imaging Radiology Impressions: ITS Impressions Chest X-Ray 12/03/23 12:20 IMPRESSION: 1. Chronic interstitial prominence without focal consolidative airspace opacity. 2. Densities along the left lower chest which may represent pleural calcifications versus soft tissue calcifications. Correlation with lateral radiograph could help further evaluate. Electronically signed by: Viral Smallwood MD 12/03/2023 01:[address] 12/03/23 13:17 IMPRESSION: 1. No acute intracranial abnormalities. No intracranial hemorrhage or mass effect. 2. Moderate small vessel ischemic changes in the hemispheric white matter. 3. 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 4. Age advanced cerebral and cerebellar involutional changes with prominent ventricles. Cannot definitively exclude a component of communicating hydrocephalus given the appearance. Head CT 12/10/23 21:05 IMPRESSION: No acute intracranial abnormality including hemorrhage, mass effect, hydrocephalus, or acute territorial edematous infarction. Electronically signed by: Juan Alberto Murdock MD 12/10/2023 10:07 PM EDT Medications Medications Current Medications Acetaminophen (Acetaminophen 325 Mg Tablet) 650 mg PO Q6H PRN PRN Reason: Headache/Pain Mild Scale (1-3) Al Hydroxide/Mg Hydroxide (Magnesium Hydrox/Alum Hydrox 30 Ml Oral.Susp) 30 ml PO Q6H PRN PRN Reason: Heartburn/Nausea Amlodipine Besylate (Amlodipine Besylate 5 Mg Tablet) 5 mg PO DAILY [facility]; Protocol Last Admin: 12/26/23 08:22 Dose: 5 mg Anastrozole (Anastrozole 1 Mg Tablet) 1 mg PO DAILY [facility] Last Admin: 12/26/23 08:23 Dose: 1 mg Aspirin (Aspirin 81 Mg Tab.Chew) 81 mg PO DAILY [facility] Last Admin: 12/26/23 08:22 Dose: 81 mg Atorvastatin Calcium (Atorvastatin Calcium 10 Mg Tablet) 10 mg PO BEDTIME [facility] Last Admin: 12/25/23 21:24 Dose: 10 mg Ferrous Sulfate (Ferrous Sulfate 324 Mg Tablet.Dr) 324 mg PO DAILY [facility] Last Admin: 12/26/23 08:20 Dose: 324 mg Furosemide (Furosemide 20 Mg Tablet) 20 mg PO DAILY [facility]; Protocol Last Admin: 12/26/23 08:21 Dose: 20 mg Glucose (Glucose Gel 15 Gm Gel..Gram.) 15 gm PO Q15M PRN; Protocol PRN Reason: per Hypoglycemia Standing Ord. Dextrose (D10) 250 mls @ 750 mls/hr IV Q15M PRN; Protocol PRN Reason: per Hypoglycemia Standing Ord. Insulin Glargine (Insulin Glargine,Hum.Rec.Anlog 100 Unit/Ml 10 Ml Vial) 6 unit SUBCUT BEDTIME [facility] Last Admin: 12/25/23 21:22 Dose: 6 unit Insulin Human Lispro (Insulin Lispro 100 Unit/Ml 3 Ml Vial) 0 unit SUBCUT QIDACHS [facility]; Protocol Last Admin: 12/26/23 08:23 Dose: 2 unit Loratadine (Loratadine 10 Mg Tablet) 10 mg PO BEDTIME [facility] Last Admin: 12/25/23 21:24 Dose: 10 mg Losartan Potassium (Losartan Potassium 50 Mg Tablet) 100 mg PO DAILY [facility]; Protocol Last Admin: 12/26/23 08:22 Dose: 100 mg Magnesium Hydroxide (Milk Of Magnesia 30 Ml Oral.Susp) 30 ml PO DAILY PRN PRN Reason: Constipation Magnesium Oxide (Magnesium Oxide 400 Mg Tablet) 400 mg PO BID [facility] Last Admin: 12/26/23 08:23 Dose: 400 mg Mirtazapine (Mirtazapine 30 Mg Tablet) 30 mg PO BEDTIME [facility] Last Admin: 12/25/23 21:24 Dose: 30 mg Multivitamins/Vitamin C (Multivitamin Tablet) 1 tab PO DAILY [facility] Last Admin: 12/26/23 08:20 Dose: 1 tab Naloxone HCl (Naloxone Hcl 0.4 Mg/Ml Vial) 0.04 mg IVPUSH Q5M PRN PRN Reason: Excessive sedation or RR < 8 Nicotine Polacrilex (Nicotine Polacrilex 2 Mg Gum) 4 mg BUCCAL Q2H PRN PRN Reason: Nicotine Cravings Omeprazole (Omeprazole 20 Mg Capsule.Dr) 20 mg PO DAILY@0630 [facility] Last Admin: 12/26/23 06:19 Dose: Not Given Risperidone (Risperidone 0.5 Mg Tablet) 0.5 mg PO BID PRN PRN Reason: Restlessness Sodium Chloride (0.9 % Sodium Chloride Flush 3 Ml Syringe) 3 ml IVFLUSH QSHIFT [facility] Last Admin: 12/26/23 01:39 Dose: 3 ml Thiamine HCl (Thiamine Hcl 100 Mg Tablet) 100 mg PO DAILY [facility] Last Admin: 12/26/23 08:22 Dose: 100 mg Trazodone HCl (Trazodone Hcl 50 Mg Tablet) 50 mg PO BEDTIME PRN PRN Reason: Insomnia Last Admin: 12/08/23 22:06 Dose: 50 mg Valproic Acid (Valproic Acid (As Sodium Salt) 250 Mg/5 Ml Solution) 250 mg PO BID [facility] Last Admin: 12/26/23 08:23 Dose: 250 mg Allergies Allergies Allergy/AdvReac Type Severity Reaction Status Date / Time atropine Allergy Unknown Shortness Verified 12/02/23 23:30 of Breath enoxaparin [From Lovenox] Allergy Unknown Unknown Verified 12/02/23 23:30 penicillin V Allergy Unknown Unknown Verified 03/19/23 07:30 pseudoephedrine [Aprodine] Allergy Unknown Unknown Verified 03/19/23 07:30 triprolidine [Aprodine] Allergy Unknown Unknown Verified 03/19/23 07:30 Assessment & Plan Assessment & Plan (1) Major depressive disorder with psychotic features: Status: Acute Code(s): F32.3 - Major depressive disorder, single episode, severe with psychotic features Assessment and Plan: 12/15/23: Continue tx plan Plan 73-year-old female with history of insulin-dependent type 2 diabetes, hypertension, hyperlipidemia, history of C diff colitis, hypothyroidism, heart failure preserved ejection fraction, cirrhosis admitted to [facility] for catatonia with consult placed to hospitalist service for ect risk stratification. Pt with class II risk on revised cardiac risk index given history of CHF though is clinically euvolemic on exam. Lungs are clear. Has known but no murmurs heard on exam. Would recommend checking EKG to assess for ECT prolongation prior to ECT treatment. Unable to assess ROS. Based on RCRI and known history of ECT with good tolerance there does not appear to be any acute medical contraindication that should preclude patient from undergoing ect. Appropriate anesthesia precautions should be taken given known history of BASIL. Pt also noted to have equal but fixed pupils on exam which was not noted on initial H&P. She is catatonic and unable to participate in further CN exam or provide history. Did have Head CT on 12/02 negative for acute intracranial abnormalities which showed moderate small-vessel ischemic changes in hemispheric white matter numerous old lacunar infarcts as well as age advanced cerebral and cerebellar involutional changes with prominent ventricles. At this time, recommend repeating head CT and can consider Neurology evaluation at discretion of psychiatrist Will continue following for results Plan 1. Continue with same treatment. 2. Continue with ECT as scheduled. 3. Cardiology has cleared her. Reason for continued inpatient stay Substantial Risk for: inability to function, rapid decompensation and med/psych decompensation Time Spent With Patient Time: Total time managing care of this patient today __20__ minutes.
[2023-12-26 11:46] LABS: Glucose, Whole Blood 407 mg/dL (60-115)
--- NOTE | 2023-12-26 11:48 | PC.NURSE ---
11:30 POC 408. MD Yung noitified and instructed to give 10 units lispro.
--- NOTE | 2023-12-26 13:26 | HO.POSTANES ---
Post Anesthesia Evaluation Post Anesthesia Evaluation Date of Service: 12/25/23 Vital Signs: Vital Signs Temp Pulse Resp BP Pulse Ox O2 Del Method 12/26/23 08:17 98.2 F 60 14 108/55 L 96 Room Air Anesthesia: General Mental Status: Awake Pain Control: Satisfactory Nausea/Vomiting: None Hydration: Adequate Anesthesia-Related Issues: No Anes. Related Issues
[2023-12-26 16:34] LABS: Glucose, Whole Blood 343 mg/dL (60-115)
[2023-12-26 20:00] VITALS: BP 103/54; PULSE 80; RESP 16; TEMP 36.8; O2SAT 97
[2023-12-26 20:04] LABS: Glucose, Whole Blood 265 mg/dL (60-115)
[2023-12-26] MEDS: Loratadine 10 MG TABLET PO (20:30)
[2023-12-26] MEDS: Mirtazapine 30 MG TABLET PO (20:30)
[2023-12-26] MEDS: Atorvastatin Calcium 10 MG TABLET PO (20:30)
[2023-12-26] MEDS: Insulin Glargine,Hum.rec.anlog 100 UNIT/ML 10 ML VIAL 6 UNIT SUBCUT (20:33)
[2023-12-27] VITALS (12 sets, daily range): BP systolic 100–122; BP diastolic 52–86; PULSE 60–93; RESP 14–16; TEMP 36.2–37.1; O2SAT 93–100
[2023-12-27] MEDS: 0.9 % Sodium Chloride Flush 3 ML SYRINGE IVFLUSH (00:34)
[2023-12-27 06:32] LABS: Glucose, Whole Blood 158 mg/dL (60-115)
--- NOTE | 2023-12-27 06:46 | HO.ANESPROP2 ---
[facility] Active Problems Active Problems: All Active Problems Hx of Clostridium difficile infection (Acute) Preoperative cardiovascular examination (Acute) Catatonia (Acute) Fixed constriction of pupil (Acute) Major depressive disorder with psychotic features (Acute) Dark stools (Acute) Routine medical exam (Acute) Essential hypertension (Acute) Type 2 diabetes mellitus with unspecified complications (Acute) Aortic valve sclerosis (Acute) Murmur (Acute) CKD (chronic kidney disease) stage 3, GFR 30-59 ml/min (Acute) Vitamin D deficiency (Acute) HLD (hyperlipidemia) (Acute) HTN (hypertension) (Acute) T2DM (type 2 diabetes mellitus) (Acute) Past Medical History Medical History Cirrhosis Hypothyroidism Breast cancer Hx of Clostridium difficile infection (HFpEF) heart failure with preserved ejection fraction Murmur CKD (chronic kidney disease) stage 3, GFR 30-59 ml/min Vitamin D deficiency HLD (hyperlipidemia) HTN (hypertension) T2DM (type 2 diabetes mellitus) Functional capacity: independent ambulation Patient : No Family History Family History Father Alzheimer disease Stroke Mother Breast cancer Family history of problems with anesthesia: No Surgical History Surgical History Hx of cataract surgery History of lumpectomy of right breast History of mastectomy History of Problems with Anesthesia: No Social History Social History Household Members: Family Household Members Other:: son Alcohol intake: never Patient Tobacco Use Status: Never used Tobacco service: No Sexual orientation: Straight/Heterosexual Meds Allergies Allergy/AdvReac Type Severity Reaction Status Date / Time atropine Allergy Unknown Shortness Verified 12/02/23 23:30 of Breath enoxaparin [From Lovenox] Allergy Unknown Unknown Verified 12/02/23 23:30 penicillin V Allergy Unknown Unknown Verified 03/19/23 07:30 pseudoephedrine [Aprodine] Allergy Unknown Unknown Verified 03/19/23 07:30 triprolidine [Aprodine] Allergy Unknown Unknown Verified 03/19/23 07:30 Active Medications: Current Medications Acetaminophen (Acetaminophen 325 Mg Tablet) 650 mg PO Q6H PRN PRN Reason: Headache/Pain Mild Scale (1-3) Al Hydroxide/Mg Hydroxide (Magnesium Hydrox/Alum Hydrox 30 Ml Oral.Susp) 30 ml PO Q6H PRN PRN Reason: Heartburn/Nausea Amlodipine Besylate (Amlodipine Besylate 5 Mg Tablet) 5 mg PO DAILY [facility]; Protocol Last Admin: 12/26/23 08:22 Dose: 5 mg Anastrozole (Anastrozole 1 Mg Tablet) 1 mg PO DAILY [facility] Last Admin: 12/26/23 08:23 Dose: 1 mg Aspirin (Aspirin 81 Mg Tab.Chew) 81 mg PO DAILY [facility] Last Admin: 12/26/23 08:22 Dose: 81 mg Atorvastatin Calcium (Atorvastatin Calcium 10 Mg Tablet) 10 mg PO BEDTIME [facility] Last Admin: 12/26/23 20:30 Dose: 10 mg Ferrous Sulfate (Ferrous Sulfate 324 Mg Tablet.Dr) 324 mg PO DAILY [facility] Last Admin: 12/26/23 08:20 Dose: 324 mg Furosemide (Furosemide 20 Mg Tablet) 20 mg PO DAILY [facility]; Protocol Last Admin: 12/26/23 08:21 Dose: 20 mg Glucose (Glucose Gel 15 Gm Gel..Gram.) 15 gm PO Q15M PRN; Protocol PRN Reason: per Hypoglycemia Standing Ord. Dextrose (D10) 250 mls @ 750 mls/hr IV Q15M PRN; Protocol PRN Reason: per Hypoglycemia Standing Ord. Insulin Glargine (Insulin Glargine,Hum.Rec.Anlog 100 Unit/Ml 10 Ml Vial) 6 unit SUBCUT BEDTIME [facility] Last Admin: 12/26/23 20:33 Dose: 6 unit Insulin Human Lispro (Insulin Lispro 100 Unit/Ml 3 Ml Vial) 0 unit SUBCUT QIDACHS [facility]; Protocol Last Admin: 12/26/23 20:32 Dose: 6 unit Loratadine (Loratadine 10 Mg Tablet) 10 mg PO BEDTIME [facility] Last Admin: 12/26/23 20:30 Dose: 10 mg Losartan Potassium (Losartan Potassium 50 Mg Tablet) 100 mg PO DAILY [facility]; Protocol Last Admin: 12/26/23 08:22 Dose: 100 mg Magnesium Hydroxide (Milk Of Magnesia 30 Ml Oral.Susp) 30 ml PO DAILY PRN PRN Reason: Constipation Magnesium Oxide (Magnesium Oxide 400 Mg Tablet) 400 mg PO BID [facility] Last Admin: 12/26/23 20:30 Dose: 400 mg Mirtazapine (Mirtazapine 30 Mg Tablet) 30 mg PO BEDTIME [facility] Last Admin: 12/26/23 20:30 Dose: 30 mg Multivitamins/Vitamin C (Multivitamin Tablet) 1 tab PO DAILY [facility] Last Admin: 12/26/23 08:20 Dose: 1 tab Naloxone HCl (Naloxone Hcl 0.4 Mg/Ml Vial) 0.04 mg IVPUSH Q5M PRN PRN Reason: Excessive sedation or RR < 8 Nicotine Polacrilex (Nicotine Polacrilex 2 Mg Gum) 4 mg BUCCAL Q2H PRN PRN Reason: Nicotine Cravings Omeprazole (Omeprazole 20 Mg Capsule.Dr) 20 mg PO DAILY@0630 [facility] Last Admin: 12/27/23 05:45 Dose: Not Given Risperidone (Risperidone 0.5 Mg Tablet) 0.5 mg PO BID PRN PRN Reason: Restlessness Sodium Chloride (0.9 % Sodium Chloride Flush 3 Ml Syringe) 3 ml IVFLUSH QSHIFT [facility] Last Admin: 12/27/23 00:34 Dose: 3 ml Thiamine HCl (Thiamine Hcl 100 Mg Tablet) 100 mg PO DAILY [facility] Last Admin: 12/26/23 08:22 Dose: 100 mg Trazodone HCl (Trazodone Hcl 50 Mg Tablet) 50 mg PO BEDTIME PRN PRN Reason: Insomnia Last Admin: 12/08/23 22:06 Dose: 50 mg Valproic Acid (Valproic Acid (As Sodium Salt) 250 Mg/5 Ml Solution) 250 mg PO BID [facility] Last Admin: 12/26/23 20:29 Dose: 250 mg Home Medications ?Medication ?Instructions ?Recorded ?Confirmed ?Last Taken ?Type ascorbate calcium (vitamin C) 500 500 mg PO DAILY 03/24/20 11/20/22 Unknown History mg tablet fluoxetine 20 mg capsule 40 mg PO DAILY 03/24/20 11/20/22 Unknown History levothyroxine 100 mcg tablet 100 mcg PO QAM 03/24/20 11/20/22 Unknown History mirtazapine 30 mg tablet 30 mg PO BEDTIME 03/24/20 11/20/22 Unknown History omeprazole 20 mg capsule,delayed 20 mg PO DAILY 03/24/20 11/20/22 Unknown History release risperidone 1 mg tablet 1 mg PO BEDTIME 03/24/20 11/20/22 Unknown History insulin glargine 100 unit/mL (3 30 unit subcut BEDTIME 09/28/20 11/20/22 Unknown History mL) subcutaneous pen anastrozole 1 mg tablet 1 mg PO DAILY 02/16/21 11/20/22 Unknown History dapagliflozin propanediol 10 mg 10 mg PO QAM 05/08/21 11/20/22 Unknown History tablet (Farxiga) losartan 50 mg tablet 50 mg PO DAILY 09/14/21 11/20/22 Unknown History amlodipine 5 mg tablet 5 mg PO QAM 12/02/23 12/02/23 Unknown History anastrozole 1 mg tablet 1 mg PO DAILY 12/02/23 12/02/23 Unknown History aspirin 81 mg chewable tablet 1 tab PO QAM 12/02/23 12/02/23 Unknown History cetirizine 5 mg tablet 5 mg PO BEDTIME 12/02/23 12/02/23 Unknown History divalproex 500 mg tablet,delayed 500 mg PO BEDTIME 12/02/23 12/02/23 Unknown History release ferrous sulfate 325 mg (65 mg 325 mg PO QAM 12/02/23 12/02/23 Unknown History iron) tablet (FeroSul) furosemide 20 mg tablet (Lasix) 20 mg PO DAILY 12/02/23 12/02/23 Unknown History insulin glargine 100 unit/mL 6 unit subcut BEDTIME 12/02/23 12/02/23 Unknown History subcutaneous solution insulin lispro 100 unit/mL 1 sliding scale dose subcut 12/02/23 12/02/23 Unknown History subcutaneous solution USEASDIRECTD levetiracetam 500 mg tablet 500 mg PO BID 12/02/23 12/02/23 Unknown History losartan 100 mg tablet 100 mg PO DAILY 12/02/23 12/02/23 Unknown History losartan 100 mg tablet 100 mg PO DAILY 12/02/23 12/02/23 Unknown History magnesium oxide 400 mg PO BID 12/02/23 12/02/23 Unknown History mirtazapine 30 mg disintegrating 30 mg PO BEDTIME 12/02/23 12/02/23 Unknown History tablet multivitamin with minerals 1 tab PO DAILY 12/02/23 12/02/23 Unknown History pantoprazole 40 mg tablet,delayed 40 mg PO DAILY 12/02/23 12/02/23 Unknown History release risperidone 0.5 mg tablet 0.5 mg PO BID PRN Agitation 12/02/23 12/02/23 Unknown History risperidone 2 mg tablet 2 mg PO BID 12/02/23 12/02/23 Unknown History simvastatin 20 mg tablet 20 mg PO BEDTIME 12/02/23 12/02/23 Unknown History thiamine HCl (vitamin B1) 100 mg 100 mg PO QAM 12/02/23 12/02/23 Unknown History tablet trazodone 50 mg tablet 50 mg PO BEDTIME PRN insomnia 12/02/23 12/02/23 Unknown History vancomycin 125 mg capsule See Rx Instructions .Route .COMPLEX 12/02/23 12/02/23 Unknown History (Vancocin) Exam Height,Weight and Vital Signs: Height 4 ft 11 in Weight 45.2 kg Last Vital Signs Temp 97.2 F 12/27/23 05:56 Pulse 60 12/27/23 05:56 Resp 16 12/27/23 05:56 BP 100/52 L 12/27/23 05:56 Pulse Ox 93 12/27/23 05:56 O2 Del Method Room Air 12/27/23 05:54 O2 Flow Rate 2 12/25/23 08:14 Pertinent Lab Results Pertinent Lab Results: Laboratory Tests 12/02/23 12/03/23 12/03/23 22:55 06:35 08:01 WBC RBC Hgb Hct MCV MCH MCHC RDW Plt Count MPV Immature Gran % (Auto) Neut % (Auto) Lymph % (Auto) Graham % (Auto) Eos % (Auto) Baso % (Auto) Lymph # (Auto) Graham # (Auto) Eos # (Auto) Baso # (Auto) Abs Immat Gran (auto) Absolute Neuts (auto) Absolute Nucleated RBC Nucleated RBC % (auto) Sodium 134 L Potassium 4.0 Chloride 98 Carbon Dioxide 27 Anion Gap 13 BUN 21 H Creatinine 0.88 Estim Creat Clear Calc TNP Estimated GFR > 60 POC Glucose 296 H 212 H Random Glucose Fasting Glucose 236 H Estimat Average Glucose 169 Hemoglobin A1c % 7.5 H Calcium 10.2 Total Bilirubin 0.5 Direct Bilirubin AST 19 ALT 16 Alkaline Phosphatase 93 Ammonia Total Protein 8.7 H Albumin 3.5 Triglycerides 105 Cholesterol 182 LDL Cholesterol, Calc 93 HDL Cholesterol 68 Vitamin B12 Folate TSH Urine Color Urine Appearance Urine pH Ur Specific [place] Urine Protein Urine Glucose (UA) Urine Ketones Urine Blood Urine Nitrite Ur Leukocyte Esterase Urine RBC Urine WBC Ur Squamous Epith Cells Urine Bacteria Hyaline Casts Granular Casts Urine Yeast Stool Occult Blood Stl C. cayetanensis PCR Stool Rotavirus A PCR Stl Adenov F PCR Stool Astrovirus (PCR) Stool Campylobacter PCR Stool Cryptosporidium PCR Stl Sh Tox Pr E STEC PCR Stool E coli O157 PCR Stl Enterotoxigenic E PCR Stool EPEC (PCR) Stool EAEC (PCR) Stl E. histolytica PCR Stool Giardia Lamblia PCR Stl P. shigelloides PCR Stool Salmonella PCR Stool Sapovirus (PCR) Stl Shigella/EIEC PCR St Y.enterocolitica PCR Stool Vibrio (PCR) Stl Vibrio cholerae PCR Stl Norovirus GI/GII PCR Valproic Acid C. difficile Tox B Gene C. difficile Toxin A&B C. difficile Interpret 12/03/23 12/03/23 12/03/23 10:29 11:31 11:45 WBC 4.6 L RBC 3.96 L Hgb 10.9 L Hct 33.1 L MCV 83.6 MCH 27.5 MCHC 32.9 RDW 14.9 Plt Count 116 L MPV 9.5 Immature Gran % (Auto) 0.2 Neut % (Auto) 70.4 Lymph % (Auto) 17.7 L [place] % (Auto) 10.4 Eos % (Auto) 1.1 Baso % (Auto) 0.2 Lymph # (Auto) 0.8 L Graham # (Auto) 0.5 Eos # (Auto) 0.1 Baso # (Auto) 0.0 Abs Immat Gran (auto) 0.01 Absolute Neuts (auto) 3.3 Absolute Nucleated RBC 0.000 Nucleated RBC % (auto) 0.0 Sodium Potassium Chloride Carbon Dioxide Anion Gap BUN Creatinine Estim Creat Clear Calc Estimated GFR POC Glucose 234 H Random Glucose Fasting Glucose Estimat Average Glucose Hemoglobin A1c % Calcium Total Bilirubin Direct Bilirubin AST ALT Alkaline Phosphatase Ammonia 55 Total Protein Albumin Triglycerides Cholesterol LDL Cholesterol, Calc HDL Cholesterol Vitamin B12 Folate TSH Urine Color Urine Appearance Urine pH Ur Specific [place] Urine Protein Urine Glucose (UA) Urine Ketones Urine Blood Urine Nitrite Ur Leukocyte Esterase Urine RBC Urine WBC Ur Squamous Epith Cells Urine Bacteria Hyaline Casts Granular Casts Urine Yeast Stool Occult Blood Stl C. cayetanensis PCR Stool Rotavirus A PCR Stl Adenov F PCR Stool Astrovirus (PCR) Stool Campylobacter PCR Stool Cryptosporidium PCR Stl Sh Tox Pr E STEC PCR Stool E coli O157 PCR Stl Enterotoxigenic E PCR Stool EPEC (PCR) Stool EAEC (PCR) Stl E. histolytica PCR Stool Giardia Lamblia PCR Stl P. shigelloides PCR Stool Salmonella PCR Stool Sapovirus (PCR) Stl Shigella/EIEC PCR St Y.enterocolitica PCR Stool Vibrio (PCR) Stl Vibrio cholerae PCR Stl Norovirus GI/GII PCR Valproic Acid C. difficile Tox B Gene C. difficile Toxin A&B C. difficile Interpret 12/03/23 12/03/23 12/03/23 16:05 16:31 17:30 WBC RBC Hgb Hct MCV MCH MCHC RDW Plt Count MPV Immature Gran % (Auto) Neut % (Auto) Lymph % (Auto) [place] % (Auto) Eos % (Auto) Baso % (Auto) Lymph # (Auto) [place] # (Auto) Eos # (Auto) Baso # (Auto) Abs Immat Gran (auto) Absolute Neuts (auto) Absolute Nucleated RBC Nucleated RBC % (auto) Sodium Potassium Chloride Carbon Dioxide Anion Gap BUN Creatinine Estim Creat Clear Calc Estimated GFR POC Glucose 217 H Random Glucose Fasting Glucose Estimat Average Glucose Hemoglobin A1c % Calcium Total Bilirubin Direct Bilirubin AST ALT Alkaline Phosphatase Ammonia Total Protein Albumin Triglycerides Cholesterol LDL Cholesterol, Calc HDL Cholesterol Vitamin B12 Folate TSH Urine Color Yellow Urine Appearance Cloudy Urine pH 5.5 Ur Specific [place] 1.020 Urine Protein 30 (1+) H Urine Glucose (UA) Negative Urine Ketones Negative Urine Blood Moderate (2+) H Urine Nitrite Negative Ur Leukocyte Esterase Moderate (2+) H Urine RBC >20 H Urine WBC >50 H Ur Squamous Epith Cells 3-5 Urine Bacteria 4+ Hyaline Casts >20 Granular Casts Present Urine Yeast Present Stool Occult Blood NEGATIVE Stl C. cayetanensis PCR Not Detected Stool Rotavirus A PCR Not Detected Stl Adenov F 40/41 PCR Not Detected Stool Astrovirus (PCR) Not Detected Stool Campylobacter PCR Not Detected Stool Cryptosporidium PCR Not Detected Stl Sh Tox Pr E STEC PCR Not Detected Stool E coli O157 PCR Not applicable Stl Enterotoxigenic E PCR Not Detected Stool EPEC (PCR) Not Detected Stool EAEC (PCR) Not Detected Stl E. histolytica PCR Not Detected Stool Giardia Lamblia PCR Not Detected Stl P. shigelloides PCR Not Detected Stool Salmonella PCR Not Detected Stool Sapovirus (PCR) Not Detected Stl Shigella/EIEC PCR Not Detected St Y.enterocolitica PCR Not Detected Stool Vibrio (PCR) Not Detected Stl Vibrio cholerae PCR Not Detected Stl Norovirus GI/GII PCR Not Detected Valproic Acid C. difficile Tox B Gene POSITIVE A* C. difficile Toxin A&B Positive A* C. difficile Interpret SEE NOTE 12/03/23 12/04/23 12/04/23 21:03 06:21 11:26 WBC RBC Hgb Hct MCV MCH MCHC RDW Plt Count MPV Immature Gran % (Auto) Neut % (Auto) Lymph % (Auto) [place] % (Auto) Eos % (Auto) Baso % (Auto) Lymph # (Auto) [place] # (Auto) Eos # (Auto) Baso # (Auto) Abs Immat Gran (auto) Absolute Neuts (auto) Absolute Nucleated RBC Nucleated RBC % (auto) Sodium Potassium Chloride Carbon Dioxide Anion Gap BUN Creatinine Estim Creat Clear Calc Estimated GFR POC Glucose 207 H 176 H 210 H Random Glucose Fasting Glucose Estimat Average Glucose Hemoglobin A1c % Calcium Total Bilirubin Direct Bilirubin AST ALT Alkaline Phosphatase Ammonia Total Protein Albumin Triglycerides Cholesterol LDL Cholesterol, Calc HDL Cholesterol Vitamin B12 Folate TSH Urine Color Urine Appearance Urine pH Ur Specific [place] Urine Protein Urine Glucose (UA) Urine Ketones Urine Blood Urine Nitrite Ur Leukocyte Esterase Urine RBC Urine WBC Ur Squamous Epith Cells Urine Bacteria Hyaline Casts Granular Casts Urine Yeast Stool Occult Blood Stl C. cayetanensis PCR Stool Rotavirus A PCR Stl Adenov F 40/41 PCR Stool Astrovirus (PCR) Stool Campylobacter PCR Stool Cryptosporidium PCR Stl Sh Tox Pr E STEC PCR Stool E coli O157 PCR Stl Enterotoxigenic E PCR Stool EPEC (PCR) Stool EAEC (PCR) Stl E. histolytica PCR Stool Giardia Lamblia PCR Stl P. shigelloides PCR Stool Salmonella PCR Stool Sapovirus (PCR) Stl Shigella/EIEC PCR St Y.enterocolitica PCR Stool Vibrio (PCR) Stl Vibrio cholerae PCR Stl Norovirus GI/GII PCR Valproic Acid C. difficile Tox B Gene C. difficile Toxin A&B C. difficile Interpret 12/04/23 12/04/23 12/05/23 16:34 20:17 06:35 WBC RBC Hgb Hct MCV MCH MCHC RDW Plt Count MPV Immature Gran % (Auto) Neut % (Auto) Lymph % (Auto) [place] % (Auto) Eos % (Auto) Baso % (Auto) Lymph # (Auto) [place] # (Auto) Eos # (Auto) Baso # (Auto) Abs Immat Gran (auto) Absolute Neuts (auto) Absolute Nucleated RBC Nucleated RBC % (auto) Sodium Potassium Chloride Carbon Dioxide Anion Gap BUN Creatinine Estim Creat Clear Calc Estimated GFR POC Glucose 176 H 154 H 146 H Random Glucose Fasting Glucose Estimat Average Glucose Hemoglobin A1c % Calcium Total Bilirubin Direct Bilirubin AST ALT Alkaline Phosphatase Ammonia Total Protein Albumin Triglycerides Cholesterol LDL Cholesterol, Calc HDL Cholesterol Vitamin B12 Folate TSH Urine Color Urine Appearance Urine pH Ur Specific [place] Urine Protein Urine Glucose (UA) Urine Ketones Urine Blood Urine Nitrite Ur Leukocyte Esterase Urine RBC Urine WBC Ur Squamous Epith Cells Urine Bacteria Hyaline Casts Granular Casts Urine Yeast Stool Occult Blood Stl C. cayetanensis PCR Stool Rotavirus A PCR Stl Adenov F 40/41 PCR Stool Astrovirus (PCR) Stool Campylobacter PCR Stool Cryptosporidium PCR Stl Sh Tox Pr E STEC PCR Stool E coli O157 PCR Stl Enterotoxigenic E PCR Stool EPEC (PCR) Stool EAEC (PCR) Stl E. histolytica PCR Stool Giardia Lamblia PCR Stl P. shigelloides PCR Stool Salmonella PCR Stool Sapovirus (PCR) Stl Shigella/EIEC PCR St Y.enterocolitica PCR Stool Vibrio (PCR) Stl Vibrio cholerae PCR Stl Norovirus GI/GII PCR Valproic Acid C. difficile Tox B Gene C. difficile Toxin A&B C. difficile Interpret 12/05/23 12/05/23 12/05/23 11:08 16:36 20:27 WBC RBC Hgb Hct MCV MCH MCHC RDW Plt Count MPV Immature Gran % (Auto) Neut % (Auto) Lymph % (Auto) [place] % (Auto) Eos % (Auto) Baso % (Auto) Lymph # (Auto) [place] # (Auto) Eos # (Auto) Baso # (Auto) Abs Immat Gran (auto) Absolute Neuts (auto) Absolute Nucleated RBC Nucleated RBC % (auto) Sodium Potassium Chloride Carbon Dioxide Anion Gap BUN Creatinine Estim Creat Clear Calc Estimated GFR POC Glucose 164 H 162 H 198 H Random Glucose Fasting Glucose Estimat Average Glucose Hemoglobin A1c % Calcium Total Bilirubin Direct Bilirubin AST ALT Alkaline Phosphatase Ammonia Total Protein Albumin Triglycerides Cholesterol LDL Cholesterol, Calc HDL Cholesterol Vitamin B12 Folate TSH Urine Color Urine Appearance Urine pH Ur Specific [place] Urine Protein Urine Glucose (UA) Urine Ketones Urine Blood Urine Nitrite Ur Leukocyte Esterase Urine RBC Urine WBC Ur Squamous Epith Cells Urine Bacteria Hyaline Casts Granular Casts Urine Yeast Stool Occult Blood Stl C. cayetanensis PCR Stool Rotavirus A PCR Stl Adenov F PCR Stool Astrovirus (PCR) Stool Campylobacter PCR Stool Cryptosporidium PCR Stl Sh Tox Pr E STEC PCR Stool E coli O157 PCR Stl Enterotoxigenic E PCR Stool EPEC (PCR) Stool EAEC (PCR) Stl E. histolytica PCR Stool Giardia Lamblia PCR Stl P. shigelloides PCR Stool Salmonella PCR Stool Sapovirus (PCR) Stl Shigella/EIEC PCR St Y.enterocolitica PCR Stool Vibrio (PCR) Stl Vibrio cholerae PCR Stl Norovirus GI/GII PCR Valproic Acid C. difficile Tox B Gene C. difficile Toxin A&B C. difficile Interpret 12/06/23 12/06/23 12/06/23 06:22 07:57 11:30 WBC RBC Hgb Hct MCV MCH MCHC RDW Plt Count MPV Immature Gran % (Auto) Neut % (Auto) Lymph % (Auto) [place] % (Auto) Eos % (Auto) Baso % (Auto) Lymph # (Auto) [place] # (Auto) Eos # (Auto) Baso # (Auto) Abs Immat Gran (auto) Absolute Neuts (auto) Absolute Nucleated RBC Nucleated RBC % (auto) Sodium 142 Potassium 4.5 Chloride 103 Carbon Dioxide 30 H Anion Gap 14 BUN 32 H Creatinine 0.88 Estim Creat Clear Calc 37.7 Estimated GFR > 60 POC Glucose 122 H 135 H Random Glucose Fasting Glucose 137 H Estimat Average Glucose Hemoglobin A1c % Calcium 10.7 H Total Bilirubin 0.5 Direct Bilirubin AST 24 ALT 15 Alkaline Phosphatase 97 Ammonia Total Protein 9.2 H Albumin 3.6 Triglycerides Cholesterol LDL Cholesterol, Calc HDL Cholesterol Vitamin B12 1504 H Folate 14.9 TSH 2.88 Urine Color Urine Appearance Urine pH Ur Specific [place] Urine Protein Urine Glucose (UA) Urine Ketones Urine Blood Urine Nitrite Ur Leukocyte Esterase Urine RBC Urine WBC Ur Squamous Epith Cells Urine Bacteria Hyaline Casts Granular Casts Urine Yeast Stool Occult Blood Stl C. cayetanensis PCR Stool Rotavirus A PCR Stl Adenov F PCR Stool Astrovirus (PCR) Stool Campylobacter PCR Stool Cryptosporidium PCR Stl Sh Tox Pr E STEC PCR Stool E coli O157 PCR Stl Enterotoxigenic E PCR Stool EPEC (PCR) Stool EAEC (PCR) Stl E. histolytica PCR Stool Giardia Lamblia PCR Stl P. shigelloides PCR Stool Salmonella PCR Stool Sapovirus (PCR) Stl Shigella/EIEC PCR St Y.enterocolitica PCR Stool Vibrio (PCR) Stl Vibrio cholerae PCR Stl Norovirus GI/GII PCR Valproic Acid C. difficile Tox B Gene C. difficile Toxin A&B C. difficile Interpret 12/06/23 12/06/23 12/07/23 16:30 19:51 06:57 WBC RBC Hgb Hct MCV MCH MCHC RDW Plt Count MPV Immature Gran % (Auto) Neut % (Auto) Lymph % (Auto) [place] % (Auto) Eos % (Auto) Baso % (Auto) Lymph # (Auto) [place] # (Auto) Eos # (Auto) Baso # (Auto) Abs Immat Gran (auto) Absolute Neuts (auto) Absolute Nucleated RBC Nucleated RBC % (auto) Sodium Potassium Chloride Carbon Dioxide Anion Gap BUN Creatinine Estim Creat Clear Calc Estimated GFR POC Glucose 173 H 208 H 151 H Random Glucose Fasting Glucose Estimat Average Glucose Hemoglobin A1c % Calcium Total Bilirubin Direct Bilirubin AST ALT Alkaline Phosphatase Ammonia Total Protein Albumin Triglycerides Cholesterol LDL Cholesterol, Calc HDL Cholesterol Vitamin B12 Folate TSH Urine Color Urine Appearance Urine pH Ur Specific [place] Urine Protein Urine Glucose (UA) Urine Ketones Urine Blood Urine Nitrite Ur Leukocyte Esterase Urine RBC Urine WBC Ur Squamous Epith Cells Urine Bacteria Hyaline Casts Granular Casts Urine Yeast Stool Occult Blood Stl C. cayetanensis PCR Stool Rotavirus A PCR Stl Adenov F 40/41 PCR Stool Astrovirus (PCR) Stool Campylobacter PCR Stool Cryptosporidium PCR Stl Sh Tox Pr E STEC PCR Stool E coli O157 PCR Stl Enterotoxigenic E PCR Stool EPEC (PCR) Stool EAEC (PCR) Stl E. histolytica PCR Stool Giardia Lamblia PCR Stl P. shigelloides PCR Stool Salmonella PCR Stool Sapovirus (PCR) Stl Shigella/EIEC PCR St Y.enterocolitica PCR Stool Vibrio (PCR) Stl Vibrio cholerae PCR Stl Norovirus GI/GII PCR Valproic Acid C. difficile Tox B Gene C. difficile Toxin A&B C. difficile Interpret 12/07/23 12/07/23 12/07/23 11:09 16:11 19:32 WBC RBC Hgb Hct MCV MCH MCHC RDW Plt Count MPV Immature Gran % (Auto) Neut % (Auto) Lymph % (Auto) [place] % (Auto) Eos % (Auto) Baso % (Auto) Lymph # (Auto) [place] # (Auto) Eos # (Auto) Baso # (Auto) Abs Immat Gran (auto) Absolute Neuts (auto) Absolute Nucleated RBC Nucleated RBC % (auto) Sodium Potassium Chloride Carbon Dioxide Anion Gap BUN Creatinine Estim Creat Clear Calc Estimated GFR POC Glucose 167 H 154 H 225 H Random Glucose Fasting Glucose Estimat Average Glucose Hemoglobin A1c % Calcium Total Bilirubin Direct Bilirubin AST ALT Alkaline Phosphatase Ammonia Total Protein Albumin Triglycerides Cholesterol LDL Cholesterol, Calc HDL Cholesterol Vitamin B12 Folate TSH Urine Color Urine Appearance Urine pH Ur Specific [place] Urine Protein Urine Glucose (UA) Urine Ketones Urine Blood Urine Nitrite Ur Leukocyte Esterase Urine RBC Urine WBC Ur Squamous Epith Cells Urine Bacteria Hyaline Casts Granular Casts Urine Yeast Stool Occult Blood Stl C. cayetanensis PCR Stool Rotavirus A PCR Stl Adenov F 40/41 PCR Stool Astrovirus (PCR) Stool Campylobacter PCR Stool Cryptosporidium PCR Stl Sh Tox Pr E STEC PCR Stool E coli O157 PCR Stl Enterotoxigenic E PCR Stool EPEC (PCR) Stool EAEC (PCR) Stl E. histolytica PCR Stool Giardia Lamblia PCR Stl P. shigelloides PCR Stool Salmonella PCR Stool Sapovirus (PCR) Stl Shigella/EIEC PCR St Y.enterocolitica PCR Stool Vibrio (PCR) Stl Vibrio cholerae PCR Stl Norovirus GI/GII PCR Valproic Acid C. difficile Tox B Gene C. difficile Toxin A&B C. difficile Interpret 12/08/23 12/08/23 12/08/23 06:23 11:15 16:29 WBC RBC Hgb Hct MCV MCH MCHC RDW Plt Count MPV Immature Gran % (Auto) Neut % (Auto) Lymph % (Auto) [place] % (Auto) Eos % (Auto) Baso % (Auto) Lymph # (Auto) [place] # (Auto) Eos # (Auto) Baso # (Auto) Abs Immat Gran (auto) Absolute Neuts (auto) Absolute Nucleated RBC Nucleated RBC % (auto) Sodium Potassium Chloride Carbon Dioxide Anion Gap BUN Creatinine Estim Creat Clear Calc Estimated GFR POC Glucose 150 H 171 H 131 H Random Glucose Fasting Glucose Estimat Average Glucose Hemoglobin A1c % Calcium Total Bilirubin Direct Bilirubin AST ALT Alkaline Phosphatase Ammonia Total Protein Albumin Triglycerides Cholesterol LDL Cholesterol, Calc HDL Cholesterol Vitamin B12 Folate TSH Urine Color Urine Appearance Urine pH Ur Specific [place] Urine Protein Urine Glucose (UA) Urine Ketones Urine Blood Urine Nitrite Ur Leukocyte Esterase Urine RBC Urine WBC Ur Squamous Epith Cells Urine Bacteria Hyaline Casts Granular Casts Urine Yeast Stool Occult Blood Stl C. cayetanensis PCR Stool Rotavirus A PCR Stl Adenov F 40/ PCR Stool Astrovirus (PCR) Stool Campylobacter PCR Stool Cryptosporidium PCR Stl Sh Tox Pr E STEC PCR Stool E coli O157 PCR Stl Enterotoxigenic E PCR Stool EPEC (PCR) Stool EAEC (PCR) Stl E. histolytica PCR Stool Giardia Lamblia PCR Stl P. shigelloides PCR Stool Salmonella PCR Stool Sapovirus (PCR) Stl Shigella/EIEC PCR St Y.enterocolitica PCR Stool Vibrio (PCR) Stl Vibrio cholerae PCR Stl Norovirus GI/GII PCR Valproic Acid C. difficile Tox B Gene C. difficile Toxin A&B C. difficile Interpret 12/08/23 12/08/23 12/09/23 19:07 20:11 06:32 WBC 3.3 L RBC 3.73 L Hgb 10.3 L Hct 32.0 L MCV 85.8 MCH 27.6 MCHC 32.2 RDW 14.2 Plt Count 99 L MPV 10.0 Immature Gran % (Auto) 0.3 Neut % (Auto) 53.2 Lymph % (Auto) 29.7 Graham % (Auto) 15.3 H Eos % (Auto) 1.2 Baso % (Auto) 0.3 Lymph # (Auto) 1.0 L Graham # (Auto) 0.5 Eos # (Auto) 0.0 Baso # (Auto) 0.0 Abs Immat Gran (auto) 0.01 Absolute Neuts (auto) 1.8 L Absolute Nucleated RBC 0.000 Nucleated RBC % (auto) 0.0 Sodium 142 Potassium 4.2 Chloride 104 Carbon Dioxide 30 H Anion Gap 12 BUN 27 H Creatinine 0.82 Estim Creat Clear Calc 40.4 Estimated GFR > 60 POC Glucose 116 H 145 H Random Glucose 114 Fasting Glucose Estimat Average Glucose Hemoglobin A1c % Calcium 10.5 H Total Bilirubin 0.6 Direct Bilirubin AST 25 ALT 14 Alkaline Phosphatase 90 Ammonia Total Protein 8.6 H Albumin 3.4 L Triglycerides Cholesterol LDL Cholesterol, Calc HDL Cholesterol Vitamin B12 Folate TSH Urine Color Urine Appearance Urine pH Ur Specific [place] Urine Protein Urine Glucose (UA) Urine Ketones Urine Blood Urine Nitrite Ur Leukocyte Esterase Urine RBC Urine WBC Ur Squamous Epith Cells Urine Bacteria Hyaline Casts Granular Casts Urine Yeast Stool Occult Blood Stl C. cayetanensis PCR Stool Rotavirus A PCR Stl Adenov F 40/41 PCR Stool Astrovirus (PCR) Stool Campylobacter PCR Stool Cryptosporidium PCR Stl Sh Tox Pr E STEC PCR Stool E coli O157 PCR Stl Enterotoxigenic E PCR Stool EPEC (PCR) Stool EAEC (PCR) Stl E. histolytica PCR Stool Giardia Lamblia PCR Stl P. shigelloides PCR Stool Salmonella PCR Stool Sapovirus (PCR) Stl Shigella/EIEC PCR St Y.enterocolitica PCR Stool Vibrio (PCR) Stl Vibrio cholerae PCR Stl Norovirus GI/GII PCR Valproic Acid C. difficile Tox B Gene C. difficile Toxin A&B C. difficile Interpret 12/09/23 12/09/23 12/09/23 09:57 11:34 16:28 WBC 2.8 L RBC 3.68 L Hgb 10.1 L Hct 32.1 L MCV 87.2 MCH 27.4 MCHC 31.5 RDW 14.4 Plt Count 86 L MPV 9.6 Immature Gran % (Auto) 0.0 Neut % (Auto) 56.4 Lymph % (Auto) 29.1 Graham % (Auto) 12.4 H Eos % (Auto) 1.4 Baso % (Auto) 0.7 Lymph # (Auto) 0.8 L Graham # (Auto) 0.4 Eos # (Auto) 0.0 Baso # (Auto) 0.0 Abs Immat Gran (auto) 0.00 Absolute Neuts (auto) 1.6 L Absolute Nucleated RBC 0.000 Nucleated RBC % (auto) 0.0 Sodium 140 Potassium 4.7 Chloride 103 Carbon Dioxide 30 H Anion Gap 12 BUN 30 H Creatinine 0.99 Estim Creat Clear Calc 33.4 Estimated GFR 55 POC Glucose 201 H 143 H Random Glucose 279 H Fasting Glucose Estimat Average Glucose Hemoglobin A1c % Calcium 10.4 H Total Bilirubin 0.4 Direct Bilirubin 0.2 AST 30 ALT 16 Alkaline Phosphatase 96 Ammonia Total Protein 8.4 H Albumin 3.3 L Triglycerides Cholesterol LDL Cholesterol, Calc HDL Cholesterol Vitamin B12 Folate TSH Urine Color Urine Appearance Urine pH Ur Specific [place] Urine Protein Urine Glucose (UA) Urine Ketones Urine Blood Urine Nitrite Ur Leukocyte Esterase Urine RBC Urine WBC Ur Squamous Epith Cells Urine Bacteria Hyaline Casts Granular Casts Urine Yeast Stool Occult Blood Stl C. cayetanensis PCR Stool Rotavirus A PCR Stl Adenov PCR Stool Astrovirus (PCR) Stool Campylobacter PCR Stool Cryptosporidium PCR Stl Sh Tox Pr E STEC PCR Stool E coli O157 PCR Stl Enterotoxigenic E PCR Stool EPEC (PCR) Stool EAEC (PCR) Stl E. histolytica PCR Stool Giardia Lamblia PCR Stl P. shigelloides PCR Stool Salmonella PCR Stool Sapovirus (PCR) Stl Shigella/EIEC PCR St Y.enterocolitica PCR Stool Vibrio (PCR) Stl Vibrio cholerae PCR Stl Norovirus GI/GII PCR Valproic Acid C. difficile Tox B Gene C. difficile Toxin A&B C. difficile Interpret 12/09/23 12/10/23 12/10/23 19:52 06:12 08:25 WBC RBC Hgb Hct MCV MCH MCHC RDW Plt Count MPV Immature Gran % (Auto) Neut % (Auto) Lymph % (Auto) [place] % (Auto) Eos % (Auto) Baso % (Auto) Lymph # (Auto) [place] # (Auto) Eos # (Auto) Baso # (Auto) Abs Immat Gran (auto) Absolute Neuts (auto) Absolute Nucleated RBC Nucleated RBC % (auto) Sodium Potassium Chloride Carbon Dioxide Anion Gap BUN Creatinine Estim Creat Clear Calc Estimated GFR POC Glucose 205 H 124 H 146 H Random Glucose Fasting Glucose Estimat Average Glucose Hemoglobin A1c % Calcium Total Bilirubin Direct Bilirubin AST ALT Alkaline Phosphatase Ammonia Total Protein Albumin Triglycerides Cholesterol LDL Cholesterol, Calc HDL Cholesterol Vitamin B12 Folate TSH Urine Color Urine Appearance Urine pH Ur Specific [place] Urine Protein Urine Glucose (UA) Urine Ketones Urine Blood Urine Nitrite Ur Leukocyte Esterase Urine RBC Urine WBC Ur Squamous Epith Cells Urine Bacteria Hyaline Casts Granular Casts Urine Yeast Stool Occult Blood Stl C. cayetanensis PCR Stool Rotavirus A PCR Stl Adenov PCR Stool Astrovirus (PCR) Stool Campylobacter PCR Stool Cryptosporidium PCR Stl Sh Tox Pr E STEC PCR Stool E coli O157 PCR Stl Enterotoxigenic E PCR Stool EPEC (PCR) Stool EAEC (PCR) Stl E. histolytica PCR Stool Giardia Lamblia PCR Stl P. shigelloides PCR Stool Salmonella PCR Stool Sapovirus (PCR) Stl Shigella/EIEC PCR St Y.enterocolitica PCR Stool Vibrio (PCR) Stl Vibrio cholerae PCR Stl Norovirus GI/GII PCR Valproic Acid C. difficile Tox B Gene C. difficile Toxin A&B C. difficile Interpret 12/10/23 12/10/23 12/10/23 11:53 16:42 20:01 WBC RBC Hgb Hct MCV MCH MCHC RDW Plt Count MPV Immature Gran % (Auto) Neut % (Auto) Lymph % (Auto) [place] % (Auto) Eos % (Auto) Baso % (Auto) Lymph # (Auto) [place] # (Auto) Eos # (Auto) Baso # (Auto) Abs Immat Gran (auto) Absolute Neuts (auto) Absolute Nucleated RBC Nucleated RBC % (auto) Sodium Potassium Chloride Carbon Dioxide Anion Gap BUN Creatinine Estim Creat Clear Calc Estimated GFR POC Glucose 185 H 164 H 139 H Random Glucose Fasting Glucose Estimat Average Glucose Hemoglobin A1c % Calcium Total Bilirubin Direct Bilirubin AST ALT Alkaline Phosphatase Ammonia Total Protein Albumin Triglycerides Cholesterol LDL Cholesterol, Calc HDL Cholesterol Vitamin B12 Folate TSH Urine Color Urine Appearance Urine pH Ur Specific [place] Urine Protein Urine Glucose (UA) Urine Ketones Urine Blood Urine Nitrite Ur Leukocyte Esterase Urine RBC Urine WBC Ur Squamous Epith Cells Urine Bacteria Hyaline Casts Granular Casts Urine Yeast Stool Occult Blood Stl C. cayetanensis PCR Stool Rotavirus A PCR Stl Adenov F 40/41 PCR Stool Astrovirus (PCR) Stool Campylobacter PCR Stool Cryptosporidium PCR Stl Sh Tox Pr E STEC PCR Stool E coli O157 PCR Stl Enterotoxigenic E PCR Stool EPEC (PCR) Stool EAEC (PCR) Stl E. histolytica PCR Stool Giardia Lamblia PCR Stl P. shigelloides PCR Stool Salmonella PCR Stool Sapovirus (PCR) Stl Shigella/EIEC PCR St Y.enterocolitica PCR Stool Vibrio (PCR) Stl Vibrio cholerae PCR Stl Norovirus GI/GII PCR Valproic Acid C. difficile Tox B Gene C. difficile Toxin A&B C. difficile Interpret 12/11/23 12/11/23 12/11/23 06:00 11:58 16:39 WBC RBC Hgb Hct MCV MCH MCHC RDW Plt Count MPV Immature Gran % (Auto) Neut % (Auto) Lymph % (Auto) [place] % (Auto) Eos % (Auto) Baso % (Auto) Lymph # (Auto) [place] # (Auto) Eos # (Auto) Baso # (Auto) Abs Immat Gran (auto) Absolute Neuts (auto) Absolute Nucleated RBC Nucleated RBC % (auto) Sodium Potassium Chloride Carbon Dioxide Anion Gap BUN Creatinine Estim Creat Clear Calc Estimated GFR POC Glucose 151 H 158 H 134 H Random Glucose Fasting Glucose Estimat Average Glucose Hemoglobin A1c % Calcium Total Bilirubin Direct Bilirubin AST ALT Alkaline Phosphatase Ammonia Total Protein Albumin Triglycerides Cholesterol LDL Cholesterol, Calc HDL Cholesterol Vitamin B12 Folate TSH Urine Color Urine Appearance Urine pH Ur Specific [place] Urine Protein Urine Glucose (UA) Urine Ketones Urine Blood Urine Nitrite Ur Leukocyte Esterase Urine RBC Urine WBC Ur Squamous Epith Cells Urine Bacteria Hyaline Casts Granular Casts Urine Yeast Stool Occult Blood Stl C. cayetanensis PCR Stool Rotavirus A PCR Stl Adenov F 40/41 PCR Stool Astrovirus (PCR) Stool Campylobacter PCR Stool Cryptosporidium PCR Stl Sh Tox Pr E STEC PCR Stool E coli O157 PCR Stl Enterotoxigenic E PCR Stool EPEC (PCR) Stool EAEC (PCR) Stl E. histolytica PCR Stool Giardia Lamblia PCR Stl P. shigelloides PCR Stool Salmonella PCR Stool Sapovirus (PCR) Stl Shigella/EIEC PCR St Y.enterocolitica PCR Stool Vibrio (PCR) Stl Vibrio cholerae PCR Stl Norovirus GI/GII PCR Valproic Acid C. difficile Tox B Gene C. difficile Toxin A&B C. difficile Interpret 12/11/23 12/12/23 12/12/23 19:50 06:41 11:33 WBC RBC Hgb Hct MCV MCH MCHC RDW Plt Count MPV Immature Gran % (Auto) Neut % (Auto) Lymph % (Auto) [place] % (Auto) Eos % (Auto) Baso % (Auto) Lymph # (Auto) [place] # (Auto) Eos # (Auto) Baso # (Auto) Abs Immat Gran (auto) Absolute Neuts (auto) Absolute Nucleated RBC Nucleated RBC % (auto) Sodium Potassium Chloride Carbon Dioxide Anion Gap BUN Creatinine Estim Creat Clear Calc Estimated GFR POC Glucose 136 H 149 H 230 H Random Glucose Fasting Glucose Estimat Average Glucose Hemoglobin A1c % Calcium Total Bilirubin Direct Bilirubin AST ALT Alkaline Phosphatase Ammonia Total Protein Albumin Triglycerides Cholesterol LDL Cholesterol, Calc HDL Cholesterol Vitamin B12 Folate TSH Urine Color Urine Appearance Urine pH Ur Specific [place] Urine Protein Urine Glucose (UA) Urine Ketones Urine Blood Urine Nitrite Ur Leukocyte Esterase Urine RBC Urine WBC Ur Squamous Epith Cells Urine Bacteria Hyaline Casts Granular Casts Urine Yeast Stool Occult Blood Stl C. cayetanensis PCR Stool Rotavirus A PCR Stl Adenov F PCR Stool Astrovirus (PCR) Stool Campylobacter PCR Stool Cryptosporidium PCR Stl Sh Tox Pr E STEC PCR Stool E coli O157 PCR Stl Enterotoxigenic E PCR Stool EPEC (PCR) Stool EAEC (PCR) Stl E. histolytica PCR Stool Giardia Lamblia PCR Stl P. shigelloides PCR Stool Salmonella PCR Stool Sapovirus (PCR) Stl Shigella/EIEC PCR St Y.enterocolitica PCR Stool Vibrio (PCR) Stl Vibrio cholerae PCR Stl Norovirus GI/GII PCR Valproic Acid C. difficile Tox B Gene C. difficile Toxin A&B C. difficile Interpret 12/12/23 12/12/23 12/13/23 16:28 20:34 06:19 WBC RBC Hgb Hct MCV MCH MCHC RDW Plt Count MPV Immature Gran % (Auto) Neut % (Auto) Lymph % (Auto) [place] % (Auto) Eos % (Auto) Baso % (Auto) Lymph # (Auto) [place] # (Auto) Eos # (Auto) Baso # (Auto) Abs Immat Gran (auto) Absolute Neuts (auto) Absolute Nucleated RBC Nucleated RBC % (auto) Sodium Potassium Chloride Carbon Dioxide Anion Gap BUN Creatinine Estim Creat Clear Calc Estimated GFR POC Glucose 256 H 194 H 165 H Random Glucose Fasting Glucose Estimat Average Glucose Hemoglobin A1c % Calcium Total Bilirubin Direct Bilirubin AST ALT Alkaline Phosphatase Ammonia Total Protein Albumin Triglycerides Cholesterol LDL Cholesterol, Calc HDL Cholesterol Vitamin B12 Folate TSH Urine Color Urine Appearance Urine pH Ur Specific [place] Urine Protein Urine Glucose (UA) Urine Ketones Urine Blood Urine Nitrite Ur Leukocyte Esterase Urine RBC Urine WBC Ur Squamous Epith Cells Urine Bacteria Hyaline Casts Granular Casts Urine Yeast Stool Occult Blood Stl C. cayetanensis PCR Stool Rotavirus A PCR Stl Adenov F PCR Stool Astrovirus (PCR) Stool Campylobacter PCR Stool Cryptosporidium PCR Stl Sh Tox Pr E STEC PCR Stool E coli O157 PCR Stl Enterotoxigenic E PCR Stool EPEC (PCR) Stool EAEC (PCR) Stl E. histolytica PCR Stool Giardia Lamblia PCR Stl P. shigelloides PCR Stool Salmonella PCR Stool Sapovirus (PCR) Stl Shigella/EIEC PCR St Y.enterocolitica PCR Stool Vibrio (PCR) Stl Vibrio cholerae PCR Stl Norovirus GI/GII PCR Valproic Acid C. difficile Tox B Gene C. difficile Toxin A&B C. difficile Interpret 12/13/23 12/13/23 12/13/23 11:02 16:26 19:57 WBC RBC Hgb Hct MCV MCH MCHC RDW Plt Count MPV Immature Gran % (Auto) Neut % (Auto) Lymph % (Auto) [place] % (Auto) Eos % (Auto) Baso % (Auto) Lymph # (Auto) [place] # (Auto) Eos # (Auto) Baso # (Auto) Abs Immat Gran (auto) Absolute Neuts (auto) Absolute Nucleated RBC Nucleated RBC % (auto) Sodium Potassium Chloride Carbon Dioxide Anion Gap BUN Creatinine Estim Creat Clear Calc Estimated GFR POC Glucose 248 H 247 H 179 H Random Glucose Fasting Glucose Estimat Average Glucose Hemoglobin A1c % Calcium Total Bilirubin Direct Bilirubin AST ALT Alkaline Phosphatase Ammonia Total Protein Albumin Triglycerides Cholesterol LDL Cholesterol, Calc HDL Cholesterol Vitamin B12 Folate TSH Urine Color Urine Appearance Urine pH Ur Specific [place] Urine Protein Urine Glucose (UA) Urine Ketones Urine Blood Urine Nitrite Ur Leukocyte Esterase Urine RBC Urine WBC Ur Squamous Epith Cells Urine Bacteria Hyaline Casts Granular Casts Urine Yeast Stool Occult Blood Stl C. cayetanensis PCR Stool Rotavirus A PCR Stl Adenov F 40/41 PCR Stool Astrovirus (PCR) Stool Campylobacter PCR Stool Cryptosporidium PCR Stl Sh Tox Pr E STEC PCR Stool E coli O157 PCR Stl Enterotoxigenic E PCR Stool EPEC (PCR) Stool EAEC (PCR) Stl E. histolytica PCR Stool Giardia Lamblia PCR Stl P. shigelloides PCR Stool Salmonella PCR Stool Sapovirus (PCR) Stl Shigella/EIEC PCR St Y.enterocolitica PCR Stool Vibrio (PCR) Stl Vibrio cholerae PCR Stl Norovirus GI/GII PCR Valproic Acid C. difficile Tox B Gene C. difficile Toxin A&B C. difficile Interpret 12/14/23 12/14/23 12/14/23 06:32 07:37 11:48 WBC RBC Hgb Hct MCV MCH MCHC RDW Plt Count MPV Immature Gran % (Auto) Neut % (Auto) Lymph % (Auto) [place] % (Auto) Eos % (Auto) Baso % (Auto) Lymph # (Auto) [place] # (Auto) Eos # (Auto) Baso # (Auto) Abs Immat Gran (auto) Absolute Neuts (auto) Absolute Nucleated RBC Nucleated RBC % (auto) Sodium 139 Potassium 4.2 Chloride 103 Carbon Dioxide 28 Anion Gap 12 BUN 25 H Creatinine 0.84 Estim Creat Clear Calc 39.4 Estimated GFR > 60 POC Glucose 120 H 158 H Random Glucose Fasting Glucose 135 H Estimat Average Glucose Hemoglobin A1c % Calcium 10.0 Total Bilirubin 0.6 Direct Bilirubin AST 43 H ALT 23 Alkaline Phosphatase 101 Ammonia Total Protein 8.0 Albumin 3.0 L Triglycerides Cholesterol LDL Cholesterol, Calc HDL Cholesterol Vitamin B12 Folate TSH Urine Color Urine Appearance Urine pH Ur Specific [place] Urine Protein Urine Glucose (UA) Urine Ketones Urine Blood Urine Nitrite Ur Leukocyte Esterase Urine RBC Urine WBC Ur Squamous Epith Cells Urine Bacteria Hyaline Casts Granular Casts Urine Yeast Stool Occult Blood Stl C. cayetanensis PCR Stool Rotavirus A PCR Stl Adenov F 40/41 PCR Stool Astrovirus (PCR) Stool Campylobacter PCR Stool Cryptosporidium PCR Stl Sh Tox Pr E STEC PCR Stool E coli O157 PCR Stl Enterotoxigenic E PCR Stool EPEC (PCR) Stool EAEC (PCR) Stl E. histolytica PCR Stool Giardia Lamblia PCR Stl P. shigelloides PCR Stool Salmonella PCR Stool Sapovirus (PCR) Stl Shigella/EIEC PCR St Y.enterocolitica PCR Stool Vibrio (PCR) Stl Vibrio cholerae PCR Stl Norovirus GI/GII PCR Valproic Acid C. difficile Tox B Gene C. difficile Toxin A&B C. difficile Interpret 12/14/23 12/14/23 12/15/23 16:05 19:57 06:34 WBC RBC Hgb Hct MCV MCH MCHC RDW Plt Count MPV Immature Gran % (Auto) Neut % (Auto) Lymph % (Auto) [place] % (Auto) Eos % (Auto) Baso % (Auto) Lymph # (Auto) [place] # (Auto) Eos # (Auto) Baso # (Auto) Abs Immat Gran (auto) Absolute Neuts (auto) Absolute Nucleated RBC Nucleated RBC % (auto) Sodium Potassium Chloride Carbon Dioxide Anion Gap BUN Creatinine Estim Creat Clear Calc Estimated GFR POC Glucose 128 H 248 H 92 Random Glucose Fasting Glucose Estimat Average Glucose Hemoglobin A1c % Calcium Total Bilirubin Direct Bilirubin AST ALT Alkaline Phosphatase Ammonia Total Protein Albumin Triglycerides Cholesterol LDL Cholesterol, Calc HDL Cholesterol Vitamin B12 Folate TSH Urine Color Urine Appearance Urine pH Ur Specific [place] Urine Protein Urine Glucose (UA) Urine Ketones Urine Blood Urine Nitrite Ur Leukocyte Esterase Urine RBC Urine WBC Ur Squamous Epith Cells Urine Bacteria Hyaline Casts Granular Casts Urine Yeast Stool Occult Blood Stl C. cayetanensis PCR Stool Rotavirus A PCR Stl Adenov F PCR Stool Astrovirus (PCR) Stool Campylobacter PCR Stool Cryptosporidium PCR Stl Sh Tox Pr E STEC PCR Stool E coli O157 PCR Stl Enterotoxigenic E PCR Stool EPEC (PCR) Stool EAEC (PCR) Stl E. histolytica PCR Stool Giardia Lamblia PCR Stl P. shigelloides PCR Stool Salmonella PCR Stool Sapovirus (PCR) Stl Shigella/EIEC PCR St Y.enterocolitica PCR Stool Vibrio (PCR) Stl Vibrio cholerae PCR Stl Norovirus GI/GII PCR Valproic Acid C. difficile Tox B Gene C. difficile Toxin A&B C. difficile Interpret 12/15/23 12/15/23 12/15/23 11:20 16:06 20:24 WBC RBC Hgb Hct MCV MCH MCHC RDW Plt Count MPV Immature Gran % (Auto) Neut % (Auto) Lymph % (Auto) [place] % (Auto) Eos % (Auto) Baso % (Auto) Lymph # (Auto) [place] # (Auto) Eos # (Auto) Baso # (Auto) Abs Immat Gran (auto) Absolute Neuts (auto) Absolute Nucleated RBC Nucleated RBC % (auto) Sodium Potassium Chloride Carbon Dioxide Anion Gap BUN Creatinine Estim Creat Clear Calc Estimated GFR POC Glucose 295 H 142 H 230 H Random Glucose Fasting Glucose Estimat Average Glucose Hemoglobin A1c % Calcium Total Bilirubin Direct Bilirubin AST ALT Alkaline Phosphatase Ammonia Total Protein Albumin Triglycerides Cholesterol LDL Cholesterol, Calc HDL Cholesterol Vitamin B12 Folate TSH Urine Color Urine Appearance Urine pH Ur Specific [place] Urine Protein Urine Glucose (UA) Urine Ketones Urine Blood Urine Nitrite Ur Leukocyte Esterase Urine RBC Urine WBC Ur Squamous Epith Cells Urine Bacteria Hyaline Casts Granular Casts Urine Yeast Stool Occult Blood Stl C. cayetanensis PCR Stool Rotavirus A PCR Stl Adenov PCR Stool Astrovirus (PCR) Stool Campylobacter PCR Stool Cryptosporidium PCR Stl Sh Tox Pr E STEC PCR Stool E coli O157 PCR Stl Enterotoxigenic E PCR Stool EPEC (PCR) Stool EAEC (PCR) Stl E. histolytica PCR Stool Giardia Lamblia PCR Stl P. shigelloides PCR Stool Salmonella PCR Stool Sapovirus (PCR) Stl Shigella/EIEC PCR St Y.enterocolitica PCR Stool Vibrio (PCR) Stl Vibrio cholerae PCR Stl Norovirus GI/GII PCR Valproic Acid C. difficile Tox B Gene C. difficile Toxin A&B C. difficile Interpret 12/16/23 12/16/23 12/16/23 06:30 11:13 16:19 WBC RBC Hgb Hct MCV MCH MCHC RDW Plt Count MPV Immature Gran % (Auto) Neut % (Auto) Lymph % (Auto) [place] % (Auto) Eos % (Auto) Baso % (Auto) Lymph # (Auto) [place] # (Auto) Eos # (Auto) Baso # (Auto) Abs Immat Gran (auto) Absolute Neuts (auto) Absolute Nucleated RBC Nucleated RBC % (auto) Sodium Potassium Chloride Carbon Dioxide Anion Gap BUN Creatinine Estim Creat Clear Calc Estimated GFR POC Glucose 90 136 H 186 H Random Glucose Fasting Glucose Estimat Average Glucose Hemoglobin A1c % Calcium Total Bilirubin Direct Bilirubin AST ALT Alkaline Phosphatase Ammonia Total Protein Albumin Triglycerides Cholesterol LDL Cholesterol, Calc HDL Cholesterol Vitamin B12 Folate TSH Urine Color Urine Appearance Urine pH Ur Specific [place] Urine Protein Urine Glucose (UA) Urine Ketones Urine Blood Urine Nitrite Ur Leukocyte Esterase Urine RBC Urine WBC Ur Squamous Epith Cells Urine Bacteria Hyaline Casts Granular Casts Urine Yeast Stool Occult Blood Stl C. cayetanensis PCR Stool Rotavirus A PCR Stl Adenov F 40/41 PCR Stool Astrovirus (PCR) Stool Campylobacter PCR Stool Cryptosporidium PCR Stl Sh Tox Pr E STEC PCR Stool E coli O157 PCR Stl Enterotoxigenic E PCR Stool EPEC (PCR) Stool EAEC (PCR) Stl E. histolytica PCR Stool Giardia Lamblia PCR Stl P. shigelloides PCR Stool Salmonella PCR Stool Sapovirus (PCR) Stl Shigella/EIEC PCR St Y.enterocolitica PCR Stool Vibrio (PCR) Stl Vibrio cholerae PCR Stl Norovirus GI/GII PCR Valproic Acid C. difficile Tox B Gene C. difficile Toxin A&B C. difficile Interpret 12/16/23 12/17/23 12/17/23 20:22 06:40 08:06 WBC RBC Hgb Hct MCV MCH MCHC RDW Plt Count MPV Immature Gran % (Auto) Neut % (Auto) Lymph % (Auto) [place] % (Auto) Eos % (Auto) Baso % (Auto) Lymph # (Auto) [place] # (Auto) Eos # (Auto) Baso # (Auto) Abs Immat Gran (auto) Absolute Neuts (auto) Absolute Nucleated RBC Nucleated RBC % (auto) Sodium Potassium Chloride Carbon Dioxide Anion Gap BUN Creatinine Estim Creat Clear Calc Estimated GFR POC Glucose 196 H 139 H Random Glucose Fasting Glucose Estimat Average Glucose Hemoglobin A1c % Calcium Total Bilirubin Direct Bilirubin AST ALT Alkaline Phosphatase Ammonia Total Protein Albumin Triglycerides Cholesterol LDL Cholesterol, Calc HDL Cholesterol Vitamin B12 Folate TSH Urine Color Urine Appearance Urine pH Ur Specific [place] Urine Protein Urine Glucose (UA) Urine Ketones Urine Blood Urine Nitrite Ur Leukocyte Esterase Urine RBC Urine WBC Ur Squamous Epith Cells Urine Bacteria Hyaline Casts Granular Casts Urine Yeast Stool Occult Blood Stl C. cayetanensis PCR Stool Rotavirus A PCR Stl Adenov F 40/ PCR Stool Astrovirus (PCR) Stool Campylobacter PCR Stool Cryptosporidium PCR Stl Sh Tox Pr E STEC PCR Stool E coli O157 PCR Stl Enterotoxigenic E PCR Stool EPEC (PCR) Stool EAEC (PCR) Stl E. histolytica PCR Stool Giardia Lamblia PCR Stl P. shigelloides PCR Stool Salmonella PCR Stool Sapovirus (PCR) Stl Shigella/EIEC PCR St Y.enterocolitica PCR Stool Vibrio (PCR) Stl Vibrio cholerae PCR Stl Norovirus GI/GII PCR Valproic Acid 24.9 L C. difficile Tox B Gene C. difficile Toxin A&B C. difficile Interpret 12/17/23 12/17/23 12/18/23 11:34 19:59 06:40 WBC RBC Hgb Hct MCV MCH MCHC RDW Plt Count MPV Immature Gran % (Auto) Neut % (Auto) Lymph % (Auto) [place] % (Auto) Eos % (Auto) Baso % (Auto) Lymph # (Auto) [place] # (Auto) Eos # (Auto) Baso # (Auto) Abs Immat Gran (auto) Absolute Neuts (auto) Absolute Nucleated RBC Nucleated RBC % (auto) Sodium Potassium Chloride Carbon Dioxide Anion Gap BUN Creatinine Estim Creat Clear Calc Estimated GFR POC Glucose 194 H 207 H 146 H Random Glucose Fasting Glucose Estimat Average Glucose Hemoglobin A1c % Calcium Total Bilirubin Direct Bilirubin AST ALT Alkaline Phosphatase Ammonia Total Protein Albumin Triglycerides Cholesterol LDL Cholesterol, Calc HDL Cholesterol Vitamin B12 Folate TSH Urine Color Urine Appearance Urine pH Ur Specific [place] Urine Protein Urine Glucose (UA) Urine Ketones Urine Blood Urine Nitrite Ur Leukocyte Esterase Urine RBC Urine WBC Ur Squamous Epith Cells Urine Bacteria Hyaline Casts Granular Casts Urine Yeast Stool Occult Blood Stl C. cayetanensis PCR Stool Rotavirus A PCR Stl Adenov PCR Stool Astrovirus (PCR) Stool Campylobacter PCR Stool Cryptosporidium PCR Stl Sh Tox Pr E STEC PCR Stool E coli O157 PCR Stl Enterotoxigenic E PCR Stool EPEC (PCR) Stool EAEC (PCR) Stl E. histolytica PCR Stool Giardia Lamblia PCR Stl P. shigelloides PCR Stool Salmonella PCR Stool Sapovirus (PCR) Stl Shigella/EIEC PCR St Y.enterocolitica PCR Stool Vibrio (PCR) Stl Vibrio cholerae PCR Stl Norovirus GI/GII PCR Valproic Acid C. difficile Tox B Gene C. difficile Toxin A&B C. difficile Interpret 12/18/23 12/18/23 12/18/23 11:31 16:32 19:57 WBC RBC Hgb Hct MCV MCH MCHC RDW Plt Count MPV Immature Gran % (Auto) Neut % (Auto) Lymph % (Auto) [place] % (Auto) Eos % (Auto) Baso % (Auto) Lymph # (Auto) [place] # (Auto) Eos # (Auto) Baso # (Auto) Abs Immat Gran (auto) Absolute Neuts (auto) Absolute Nucleated RBC Nucleated RBC % (auto) Sodium Potassium Chloride Carbon Dioxide Anion Gap BUN Creatinine Estim Creat Clear Calc Estimated GFR POC Glucose 149 H 126 H 134 H Random Glucose Fasting Glucose Estimat Average Glucose Hemoglobin A1c % Calcium Total Bilirubin Direct Bilirubin AST ALT Alkaline Phosphatase Ammonia Total Protein Albumin Triglycerides Cholesterol LDL Cholesterol, Calc HDL Cholesterol Vitamin B12 Folate TSH Urine Color Urine Appearance Urine pH Ur Specific [place] Urine Protein Urine Glucose (UA) Urine Ketones Urine Blood Urine Nitrite Ur Leukocyte Esterase Urine RBC Urine WBC Ur Squamous Epith Cells Urine Bacteria Hyaline Casts Granular Casts Urine Yeast Stool Occult Blood Stl C. cayetanensis PCR Stool Rotavirus A PCR Stl Adenov PCR Stool Astrovirus (PCR) Stool Campylobacter PCR Stool Cryptosporidium PCR Stl Sh Tox Pr E STEC PCR Stool E coli O157 PCR Stl Enterotoxigenic E PCR Stool EPEC (PCR) Stool EAEC (PCR) Stl E. histolytica PCR Stool Giardia Lamblia PCR Stl P. shigelloides PCR Stool Salmonella PCR Stool Sapovirus (PCR) Stl Shigella/EIEC PCR St Y.enterocolitica PCR Stool Vibrio (PCR) Stl Vibrio cholerae PCR Stl Norovirus GI/GII PCR Valproic Acid C. difficile Tox B Gene C. difficile Toxin A&B C. difficile Interpret 12/19/23 12/19/23 12/19/23 06:12 11:04 16:05 WBC RBC Hgb Hct MCV MCH MCHC RDW Plt Count MPV Immature Gran % (Auto) Neut % (Auto) Lymph % (Auto) Graham % (Auto) Eos % (Auto) Baso % (Auto) Lymph # (Auto) Graham # (Auto) Eos # (Auto) Baso # (Auto) Abs Immat Gran (auto) Absolute Neuts (auto) Absolute Nucleated RBC Nucleated RBC % (auto) Sodium Potassium Chloride Carbon Dioxide Anion Gap BUN Creatinine Estim Creat Clear Calc Estimated GFR POC Glucose 123 H 116 H 121 H Random Glucose Fasting Glucose Estimat Average Glucose Hemoglobin A1c % Calcium Total Bilirubin Direct Bilirubin AST ALT Alkaline Phosphatase Ammonia Total Protein Albumin Triglycerides Cholesterol LDL Cholesterol, Calc HDL Cholesterol Vitamin B12 Folate TSH Urine Color Urine Appearance Urine pH Ur Specific [place] Urine Protein Urine Glucose (UA) Urine Ketones Urine Blood Urine Nitrite Ur Leukocyte Esterase Urine RBC Urine WBC Ur Squamous Epith Cells Urine Bacteria Hyaline Casts Granular Casts Urine Yeast Stool Occult Blood Stl C. cayetanensis PCR Stool Rotavirus A PCR Stl Adenov F 40/41 PCR Stool Astrovirus (PCR) Stool Campylobacter PCR Stool Cryptosporidium PCR Stl Sh Tox Pr E STEC PCR Stool E coli O157 PCR Stl Enterotoxigenic E PCR Stool EPEC (PCR) Stool EAEC (PCR) Stl E. histolytica PCR Stool Giardia Lamblia PCR Stl P. shigelloides PCR Stool Salmonella PCR Stool Sapovirus (PCR) Stl Shigella/EIEC PCR St Y.enterocolitica PCR Stool Vibrio (PCR) Stl Vibrio cholerae PCR Stl Norovirus GI/GII PCR Valproic Acid C. difficile Tox B Gene C. difficile Toxin A&B C. difficile Interpret 12/19/23 12/20/23 12/20/23 19:35 06:05 11:29 WBC RBC Hgb Hct MCV MCH MCHC RDW Plt Count MPV Immature Gran % (Auto) Neut % (Auto) Lymph % (Auto) Graham % (Auto) Eos % (Auto) Baso % (Auto) Lymph # (Auto) Graham # (Auto) Eos # (Auto) Baso # (Auto) Abs Immat Gran (auto) Absolute Neuts (auto) Absolute Nucleated RBC Nucleated RBC % (auto) Sodium Potassium Chloride Carbon Dioxide Anion Gap BUN Creatinine Estim Creat Clear Calc Estimated GFR POC Glucose 275 H 111 192 H Random Glucose Fasting Glucose Estimat Average Glucose Hemoglobin A1c % Calcium Total Bilirubin Direct Bilirubin AST ALT Alkaline Phosphatase Ammonia Total Protein Albumin Triglycerides Cholesterol LDL Cholesterol, Calc HDL Cholesterol Vitamin B12 Folate TSH Urine Color Urine Appearance Urine pH Ur Specific [place] Urine Protein Urine Glucose (UA) Urine Ketones Urine Blood Urine Nitrite Ur Leukocyte Esterase Urine RBC Urine WBC Ur Squamous Epith Cells Urine Bacteria Hyaline Casts Granular Casts Urine Yeast Stool Occult Blood Stl C. cayetanensis PCR Stool Rotavirus A PCR Stl Adenov F 40/41 PCR Stool Astrovirus (PCR) Stool Campylobacter PCR Stool Cryptosporidium PCR Stl Sh Tox Pr E STEC PCR Stool E coli O157 PCR Stl Enterotoxigenic E PCR Stool EPEC (PCR) Stool EAEC (PCR) Stl E. histolytica PCR Stool Giardia Lamblia PCR Stl P. shigelloides PCR Stool Salmonella PCR Stool Sapovirus (PCR) Stl Shigella/EIEC PCR St Y.enterocolitica PCR Stool Vibrio (PCR) Stl Vibrio cholerae PCR Stl Norovirus GI/GII PCR Valproic Acid C. difficile Tox B Gene C. difficile Toxin A&B C. difficile Interpret 12/20/23 12/20/23 12/21/23 16:28 21:00 06:42 WBC RBC Hgb Hct MCV MCH MCHC RDW Plt Count MPV Immature Gran % (Auto) Neut % (Auto) Lymph % (Auto) Graham % (Auto) Eos % (Auto) Baso % (Auto) Lymph # (Auto) Graham # (Auto) Eos # (Auto) Baso # (Auto) Abs Immat Gran (auto) Absolute Neuts (auto) Absolute Nucleated RBC Nucleated RBC % (auto) Sodium Potassium Chloride Carbon Dioxide Anion Gap BUN Creatinine Estim Creat Clear Calc Estimated GFR POC Glucose 187 H 253 H 131 H Random Glucose Fasting Glucose Estimat Average Glucose Hemoglobin A1c % Calcium Total Bilirubin Direct Bilirubin AST ALT Alkaline Phosphatase Ammonia Total Protein Albumin Triglycerides Cholesterol LDL Cholesterol, Calc HDL Cholesterol Vitamin B12 Folate TSH Urine Color Urine Appearance Urine pH Ur Specific [place] Urine Protein Urine Glucose (UA) Urine Ketones Urine Blood Urine Nitrite Ur Leukocyte Esterase Urine RBC Urine WBC Ur Squamous Epith Cells Urine Bacteria Hyaline Casts Granular Casts Urine Yeast Stool Occult Blood Stl C. cayetanensis PCR Stool Rotavirus A PCR Stl Adenov F PCR Stool Astrovirus (PCR) Stool Campylobacter PCR Stool Cryptosporidium PCR Stl Sh Tox Pr E STEC PCR Stool E coli O157 PCR Stl Enterotoxigenic E PCR Stool EPEC (PCR) Stool EAEC (PCR) Stl E. histolytica PCR Stool Giardia Lamblia PCR Stl P. shigelloides PCR Stool Salmonella PCR Stool Sapovirus (PCR) Stl Shigella/EIEC PCR St Y.enterocolitica PCR Stool Vibrio (PCR) Stl Vibrio cholerae PCR Stl Norovirus GI/GII PCR Valproic Acid C. difficile Tox B Gene C. difficile Toxin A&B C. difficile Interpret 12/21/23 12/21/23 12/21/23 11:17 16:05 19:55 WBC RBC Hgb Hct MCV MCH MCHC RDW Plt Count MPV Immature Gran % (Auto) Neut % (Auto) Lymph % (Auto) [place] % (Auto) Eos % (Auto) Baso % (Auto) Lymph # (Auto) [place] # (Auto) Eos # (Auto) Baso # (Auto) Abs Immat Gran (auto) Absolute Neuts (auto) Absolute Nucleated RBC Nucleated RBC % (auto) Sodium Potassium Chloride Carbon Dioxide Anion Gap BUN Creatinine Estim Creat Clear Calc Estimated GFR POC Glucose 234 H 155 H 209 H Random Glucose Fasting Glucose Estimat Average Glucose Hemoglobin A1c % Calcium Total Bilirubin Direct Bilirubin AST ALT Alkaline Phosphatase Ammonia Total Protein Albumin Triglycerides Cholesterol LDL Cholesterol, Calc HDL Cholesterol Vitamin B12 Folate TSH Urine Color Urine Appearance Urine pH Ur Specific [place] Urine Protein Urine Glucose (UA) Urine Ketones Urine Blood Urine Nitrite Ur Leukocyte Esterase Urine RBC Urine WBC Ur Squamous Epith Cells Urine Bacteria Hyaline Casts Granular Casts Urine Yeast Stool Occult Blood Stl C. cayetanensis PCR Stool Rotavirus A PCR Stl Adenov F PCR Stool Astrovirus (PCR) Stool Campylobacter PCR Stool Cryptosporidium PCR Stl Sh Tox Pr E STEC PCR Stool E coli O157 PCR Stl Enterotoxigenic E PCR Stool EPEC (PCR) Stool EAEC (PCR) Stl E. histolytica PCR Stool Giardia Lamblia PCR Stl P. shigelloides PCR Stool Salmonella PCR Stool Sapovirus (PCR) Stl Shigella/EIEC PCR St Y.enterocolitica PCR Stool Vibrio (PCR) Stl Vibrio cholerae PCR Stl Norovirus GI/GII PCR Valproic Acid C. difficile Tox B Gene C. difficile Toxin A&B C. difficile Interpret 12/22/23 12/22/23 12/22/23 06:35 11:29 16:31 WBC RBC Hgb Hct MCV MCH MCHC RDW Plt Count MPV Immature Gran % (Auto) Neut % (Auto) Lymph % (Auto) [place] % (Auto) Eos % (Auto) Baso % (Auto) Lymph # (Auto) [place] # (Auto) Eos # (Auto) Baso # (Auto) Abs Immat Gran (auto) Absolute Neuts (auto) Absolute Nucleated RBC Nucleated RBC % (auto) Sodium Potassium Chloride Carbon Dioxide Anion Gap BUN Creatinine Estim Creat Clear Calc Estimated GFR POC Glucose 131 H 224 H 194 H Random Glucose Fasting Glucose Estimat Average Glucose Hemoglobin A1c % Calcium Total Bilirubin Direct Bilirubin AST ALT Alkaline Phosphatase Ammonia Total Protein Albumin Triglycerides Cholesterol LDL Cholesterol, Calc HDL Cholesterol Vitamin B12 Folate TSH Urine Color Urine Appearance Urine pH Ur Specific [place] Urine Protein Urine Glucose (UA) Urine Ketones Urine Blood Urine Nitrite Ur Leukocyte Esterase Urine RBC Urine WBC Ur Squamous Epith Cells Urine Bacteria Hyaline Casts Granular Casts Urine Yeast Stool Occult Blood Stl C. cayetanensis PCR Stool Rotavirus A PCR Stl Adenov F 40/41 PCR Stool Astrovirus (PCR) Stool Campylobacter PCR Stool Cryptosporidium PCR Stl Sh Tox Pr E STEC PCR Stool E coli O157 PCR Stl Enterotoxigenic E PCR Stool EPEC (PCR) Stool EAEC (PCR) Stl E. histolytica PCR Stool Giardia Lamblia PCR Stl P. shigelloides PCR Stool Salmonella PCR Stool Sapovirus (PCR) Stl Shigella/EIEC PCR St Y.enterocolitica PCR Stool Vibrio (PCR) Stl Vibrio cholerae PCR Stl Norovirus GI/GII PCR Valproic Acid C. difficile Tox B Gene C. difficile Toxin A&B C. difficile Interpret 12/22/23 12/23/23 12/23/23 19:59 05:19 11:21 WBC RBC Hgb Hct MCV MCH MCHC RDW Plt Count MPV Immature Gran % (Auto) Neut % (Auto) Lymph % (Auto) [place] % (Auto) Eos % (Auto) Baso % (Auto) Lymph # (Auto) [place] # (Auto) Eos # (Auto) Baso # (Auto) Abs Immat Gran (auto) Absolute Neuts (auto) Absolute Nucleated RBC Nucleated RBC % (auto) Sodium Potassium Chloride Carbon Dioxide Anion Gap BUN Creatinine Estim Creat Clear Calc Estimated GFR POC Glucose 255 H 121 H 124 H Random Glucose Fasting Glucose Estimat Average Glucose Hemoglobin A1c % Calcium Total Bilirubin Direct Bilirubin AST ALT Alkaline Phosphatase Ammonia Total Protein Albumin Triglycerides Cholesterol LDL Cholesterol, Calc HDL Cholesterol Vitamin B12 Folate TSH Urine Color Urine Appearance Urine pH Ur Specific [place] Urine Protein Urine Glucose (UA) Urine Ketones Urine Blood Urine Nitrite Ur Leukocyte Esterase Urine RBC Urine WBC Ur Squamous Epith Cells Urine Bacteria Hyaline Casts Granular Casts Urine Yeast Stool Occult Blood Stl C. cayetanensis PCR Stool Rotavirus A PCR Stl Adenov F 40/41 PCR Stool Astrovirus (PCR) Stool Campylobacter PCR Stool Cryptosporidium PCR Stl Sh Tox Pr E STEC PCR Stool E coli O157 PCR Stl Enterotoxigenic E PCR Stool EPEC (PCR) Stool EAEC (PCR) Stl E. histolytica PCR Stool Giardia Lamblia PCR Stl P. shigelloides PCR Stool Salmonella PCR Stool Sapovirus (PCR) Stl Shigella/EIEC PCR St Y.enterocolitica PCR Stool Vibrio (PCR) Stl Vibrio cholerae PCR Stl Norovirus GI/GII PCR Valproic Acid C. difficile Tox B Gene C. difficile Toxin A&B C. difficile Interpret 12/23/23 12/23/23 12/24/23 16:07 20:29 06:20 WBC RBC Hgb Hct MCV MCH MCHC RDW Plt Count MPV Immature Gran % (Auto) Neut % (Auto) Lymph % (Auto) [place] % (Auto) Eos % (Auto) Baso % (Auto) Lymph # (Auto) [place] # (Auto) Eos # (Auto) Baso # (Auto) Abs Immat Gran (auto) Absolute Neuts (auto) Absolute Nucleated RBC Nucleated RBC % (auto) Sodium Potassium Chloride Carbon Dioxide Anion Gap BUN Creatinine Estim Creat Clear Calc Estimated GFR POC Glucose 132 H 308 H 144 H Random Glucose Fasting Glucose Estimat Average Glucose Hemoglobin A1c % Calcium Total Bilirubin Direct Bilirubin AST ALT Alkaline Phosphatase Ammonia Total Protein Albumin Triglycerides Cholesterol LDL Cholesterol, Calc HDL Cholesterol Vitamin B12 Folate TSH Urine Color Urine Appearance Urine pH Ur Specific [place] Urine Protein Urine Glucose (UA) Urine Ketones Urine Blood Urine Nitrite Ur Leukocyte Esterase Urine RBC Urine WBC Ur Squamous Epith Cells Urine Bacteria Hyaline Casts Granular Casts Urine Yeast Stool Occult Blood Stl C. cayetanensis PCR Stool Rotavirus A PCR Stl Adenov F PCR Stool Astrovirus (PCR) Stool Campylobacter PCR Stool Cryptosporidium PCR Stl Sh Tox Pr E STEC PCR Stool E coli O157 PCR Stl Enterotoxigenic E PCR Stool EPEC (PCR) Stool EAEC (PCR) Stl E. histolytica PCR Stool Giardia Lamblia PCR Stl P. shigelloides PCR Stool Salmonella PCR Stool Sapovirus (PCR) Stl Shigella/EIEC PCR St Y.enterocolitica PCR Stool Vibrio (PCR) Stl Vibrio cholerae PCR Stl Norovirus GI/GII PCR Valproic Acid C. difficile Tox B Gene C. difficile Toxin A&B C. difficile Interpret 12/24/23 12/24/23 12/24/23 07:46 11:28 16:25 WBC RBC Hgb Hct MCV MCH MCHC RDW Plt Count MPV Immature Gran % (Auto) Neut % (Auto) Lymph % (Auto) [place] % (Auto) Eos % (Auto) Baso % (Auto) Lymph # (Auto) [place] # (Auto) Eos # (Auto) Baso # (Auto) Abs Immat Gran (auto) Absolute Neuts (auto) Absolute Nucleated RBC Nucleated RBC % (auto) Sodium Potassium Chloride Carbon Dioxide Anion Gap BUN Creatinine Estim Creat Clear Calc Estimated GFR POC Glucose 141 H 437 H* 155 H Random Glucose Fasting Glucose Estimat Average Glucose Hemoglobin A1c % Calcium Total Bilirubin Direct Bilirubin AST ALT Alkaline Phosphatase Ammonia Total Protein Albumin Triglycerides Cholesterol LDL Cholesterol, Calc HDL Cholesterol Vitamin B12 Folate TSH Urine Color Urine Appearance Urine pH Ur Specific [place] Urine Protein Urine Glucose (UA) Urine Ketones Urine Blood Urine Nitrite Ur Leukocyte Esterase Urine RBC Urine WBC Ur Squamous Epith Cells Urine Bacteria Hyaline Casts Granular Casts Urine Yeast Stool Occult Blood Stl C. cayetanensis PCR Stool Rotavirus A PCR Stl Adenov F PCR Stool Astrovirus (PCR) Stool Campylobacter PCR Stool Cryptosporidium PCR Stl Sh Tox Pr E STEC PCR Stool E coli O157 PCR Stl Enterotoxigenic E PCR Stool EPEC (PCR) Stool EAEC (PCR) Stl E. histolytica PCR Stool Giardia Lamblia PCR Stl P. shigelloides PCR Stool Salmonella PCR Stool Sapovirus (PCR) Stl Shigella/EIEC PCR St Y.enterocolitica PCR Stool Vibrio (PCR) Stl Vibrio cholerae PCR Stl Norovirus GI/GII PCR Valproic Acid C. difficile Tox B Gene C. difficile Toxin A&B C. difficile Interpret 12/24/23 12/25/23 12/25/23 20:04 06:11 11:37 WBC RBC Hgb Hct MCV MCH MCHC RDW Plt Count MPV Immature Gran % (Auto) Neut % (Auto) Lymph % (Auto) [place] % (Auto) Eos % (Auto) Baso % (Auto) Lymph # (Auto) [place] # (Auto) Eos # (Auto) Baso # (Auto) Abs Immat Gran (auto) Absolute Neuts (auto) Absolute Nucleated RBC Nucleated RBC % (auto) Sodium Potassium Chloride Carbon Dioxide Anion Gap BUN Creatinine Estim Creat Clear Calc Estimated GFR POC Glucose 299 H 171 H 244 H Random Glucose Fasting Glucose Estimat Average Glucose Hemoglobin A1c % Calcium Total Bilirubin Direct Bilirubin AST ALT Alkaline Phosphatase Ammonia Total Protein Albumin Triglycerides Cholesterol LDL Cholesterol, Calc HDL Cholesterol Vitamin B12 Folate TSH Urine Color Urine Appearance Urine pH Ur Specific [place] Urine Protein Urine Glucose (UA) Urine Ketones Urine Blood Urine Nitrite Ur Leukocyte Esterase Urine RBC Urine WBC Ur Squamous Epith Cells Urine Bacteria Hyaline Casts Granular Casts Urine Yeast Stool Occult Blood Stl C. cayetanensis PCR Stool Rotavirus A PCR Stl Adenov F 40/41 PCR Stool Astrovirus (PCR) Stool Campylobacter PCR Stool Cryptosporidium PCR Stl Sh Tox Pr E STEC PCR Stool E coli O157 PCR Stl Enterotoxigenic E PCR Stool EPEC (PCR) Stool EAEC (PCR) Stl E. histolytica PCR Stool Giardia Lamblia PCR Stl P. shigelloides PCR Stool Salmonella PCR Stool Sapovirus (PCR) Stl Shigella/EIEC PCR St Y.enterocolitica PCR Stool Vibrio (PCR) Stl Vibrio cholerae PCR Stl Norovirus GI/GII PCR Valproic Acid C. difficile Tox B Gene C. difficile Toxin A&B C. difficile Interpret 12/25/23 12/25/23 12/26/23 16:27 19:53 06:50 WBC RBC Hgb Hct MCV MCH MCHC RDW Plt Count MPV Immature Gran % (Auto) Neut % (Auto) Lymph % (Auto) [place] % (Auto) Eos % (Auto) Baso % (Auto) Lymph # (Auto) [place] # (Auto) Eos # (Auto) Baso # (Auto) Abs Immat Gran (auto) Absolute Neuts (auto) Absolute Nucleated RBC Nucleated RBC % (auto) Sodium Potassium Chloride Carbon Dioxide Anion Gap BUN Creatinine Estim Creat Clear Calc Estimated GFR POC Glucose 213 H 264 H 184 H Random Glucose Fasting Glucose Estimat Average Glucose Hemoglobin A1c % Calcium Total Bilirubin Direct Bilirubin AST ALT Alkaline Phosphatase Ammonia Total Protein Albumin Triglycerides Cholesterol LDL Cholesterol, Calc HDL Cholesterol Vitamin B12 Folate TSH Urine Color Urine Appearance Urine pH Ur Specific [place] Urine Protein Urine Glucose (UA) Urine Ketones Urine Blood Urine Nitrite Ur Leukocyte Esterase Urine RBC Urine WBC Ur Squamous Epith Cells Urine Bacteria Hyaline Casts Granular Casts Urine Yeast Stool Occult Blood Stl C. cayetanensis PCR Stool Rotavirus A PCR Stl Adenov F 40/41 PCR Stool Astrovirus (PCR) Stool Campylobacter PCR Stool Cryptosporidium PCR Stl Sh Tox Pr E STEC PCR Stool E coli O157 PCR Stl Enterotoxigenic E PCR Stool EPEC (PCR) Stool EAEC (PCR) Stl E. histolytica PCR Stool Giardia Lamblia PCR Stl P. shigelloides PCR Stool Salmonella PCR Stool Sapovirus (PCR) Stl Shigella/EIEC PCR St Y.enterocolitica PCR Stool Vibrio (PCR) Stl Vibrio cholerae PCR Stl Norovirus GI/GII PCR Valproic Acid C. difficile Tox B Gene C. difficile Toxin A&B C. difficile Interpret 12/26/23 12/26/23 12/26/23 11:36 16:27 19:55 WBC RBC Hgb Hct MCV MCH MCHC RDW Plt Count MPV Immature Gran % (Auto) Neut % (Auto) Lymph % (Auto) [place] % (Auto) Eos % (Auto) Baso % (Auto) Lymph # (Auto) [place] # (Auto) Eos # (Auto) Baso # (Auto) Abs Immat Gran (auto) Absolute Neuts (auto) Absolute Nucleated RBC Nucleated RBC % (auto) Sodium Potassium Chloride Carbon Dioxide Anion Gap BUN Creatinine Estim Creat Clear Calc Estimated GFR POC Glucose 407 H* 343 H 265 H Random Glucose Fasting Glucose Estimat Average Glucose Hemoglobin A1c % Calcium Total Bilirubin Direct Bilirubin AST ALT Alkaline Phosphatase Ammonia Total Protein Albumin Triglycerides Cholesterol LDL Cholesterol, Calc HDL Cholesterol Vitamin B12 Folate TSH Urine Color Urine Appearance Urine pH Ur Specific [place] Urine Protein Urine Glucose (UA) Urine Ketones Urine Blood Urine Nitrite Ur Leukocyte Esterase Urine RBC Urine WBC Ur Squamous Epith Cells Urine Bacteria Hyaline Casts Granular Casts Urine Yeast Stool Occult Blood Stl C. cayetanensis PCR Stool Rotavirus A PCR Stl Adenov F PCR Stool Astrovirus (PCR) Stool Campylobacter PCR Stool Cryptosporidium PCR Stl Sh Tox Pr E STEC PCR Stool E coli O157 PCR Stl Enterotoxigenic E PCR Stool EPEC (PCR) Stool EAEC (PCR) Stl E. histolytica PCR Stool Giardia Lamblia PCR Stl P. shigelloides PCR Stool Salmonella PCR Stool Sapovirus (PCR) Stl Shigella/EIEC PCR St Y.enterocolitica PCR Stool Vibrio (PCR) Stl Vibrio cholerae PCR Stl Norovirus GI/GII PCR Valproic Acid C. difficile Tox B Gene C. difficile Toxin A&B C. difficile Interpret 12/27/23 06:00 WBC RBC Hgb Hct MCV MCH MCHC RDW Plt Count MPV Immature Gran % (Auto) Neut % (Auto) Lymph % (Auto) [place] % (Auto) Eos % (Auto) Baso % (Auto) Lymph # (Auto) [place] # (Auto) Eos # (Auto) Baso # (Auto) Abs Immat Gran (auto) Absolute Neuts (auto) Absolute Nucleated RBC Nucleated RBC % (auto) Sodium Potassium Chloride Carbon Dioxide Anion Gap BUN Creatinine Estim Creat Clear Calc Estimated GFR POC Glucose 158 H Random Glucose Fasting Glucose Estimat Average Glucose Hemoglobin A1c % Calcium Total Bilirubin Direct Bilirubin AST ALT Alkaline Phosphatase Ammonia Total Protein Albumin Triglycerides Cholesterol LDL Cholesterol, Calc HDL Cholesterol Vitamin B12 Folate TSH Urine Color Urine Appearance Urine pH Ur Specific [place] Urine Protein Urine Glucose (UA) Urine Ketones Urine Blood Urine Nitrite Ur Leukocyte Esterase Urine RBC Urine WBC Ur Squamous Epith Cells Urine Bacteria Hyaline Casts Granular Casts Urine Yeast Stool Occult Blood Stl C. cayetanensis PCR Stool Rotavirus A PCR Stl Adenov F PCR Stool Astrovirus (PCR) Stool Campylobacter PCR Stool Cryptosporidium PCR Stl Sh Tox Pr E STEC PCR Stool E coli O157 PCR Stl Enterotoxigenic E PCR Stool EPEC (PCR) Stool EAEC (PCR) Stl E. histolytica PCR Stool Giardia Lamblia PCR Stl P. shigelloides PCR Stool Salmonella PCR Stool Sapovirus (PCR) Stl Shigella/EIEC PCR St Y.enterocolitica PCR Stool Vibrio (PCR) Stl Vibrio cholerae PCR Stl Norovirus GI/GII PCR Valproic Acid C. difficile Tox B Gene C. difficile Toxin A&B C. difficile Interpret Assessment and Plan Final Anesthetic Review Family History of Problems with Anesthesia: No History of Problems with Anesthesia: No
--- NOTE | 2023-12-27 07:10 | MHC.SHP ---
Pre-Procedural Eval Section A - 24 Hr Update-Section A only Date of Service: 12/27/23 The patient is an INPATIENT: Yes Changes since office visit: No Cold of Flu in the past 2 weeks, No New Medical Problems, No Changes in Medication and No Patient answered all questions The patient has been examined within 24 hours of the surgical procedure. The History & Physical has been completed within 30 days and I have reviewed it.: Yes Section B - Complete if H&P > 30 days Chief Complaint: Major depressive disorder, severe, recurrent Allergies: Allergies Allergy/AdvReac Type Severity Reaction Status Date / Time atropine Allergy Unknown Shortness Verified 12/02/23 23:30 of Breath enoxaparin [From Lovenox] Allergy Unknown Unknown Verified 12/02/23 23:30 penicillin V Allergy Unknown Unknown Verified 03/19/23 07:30 pseudoephedrine [Aprodine] Allergy Unknown Unknown Verified 03/19/23 07:30 triprolidine [Aprodine] Allergy Unknown Unknown Verified 03/19/23 07:30 Plan I have reviewed the history and physical and performed a pertinent physical examination on my patient. No changes have occurred unless specified. Time Spent With Patient Time: Total time managing care of this patient today ____ minutes.
--- NOTE | 2023-12-27 07:45 | HO.ECTPROC ---
ECT Procedure Note Diagnosis/Treatment Date of Service: 12/28/23 Diagnosis: Major Depressive Disorder and Catatonia Previous ECT Date: 12/23/23 Current Treatment Number: 5 Treatment: Series Interval Clinical Notes: Patient showing clear improvement no noted side effects has been conversing and ambulating much more engaged no adverse effects from ECT Time: Total time managing care of this patient today ____ minutes. ECT Settings Device: THYMATRON DGx Electrode Placement: Bitemporal Program/Pulse Width: 0.50 Energy Percent: 100 Seizure Duration By EEG (in seconds): 41 Medications Administration General Anesthetic: Etomidate (12) Muscle Relaxant: Succinylcholine (80) Ancillary Medications Cardiovascular Medications: Glycopyrrolate Airway Management Airway Management: Bag Mask Ventilation Treatment Recommendations Notes: Patient showing great improvement continue plan of care Pt Tolerated Procedure w/o Issue: Yes
--- NOTE | 2023-12-27 08:14 | HO.POSTANES ---
Post Anesthesia Evaluation Post Anesthesia Evaluation Date of Service: 12/27/23 Vital Signs: Vital Signs Temp Pulse Resp BP Pulse Ox O2 Del Method O2 Flow Rate 12/27/23 07:43 87 16 111/59 L 97 Room Air 12/27/23 07:38 90 16 120/76 100 Room Air 12/27/23 07:33 93 16 122/81 100 Nasal Cannula with ETCO2 2 12/27/23 07:28 98.2 F 71 16 103/55 L 100 Nasal Cannula with ETCO2 2 12/27/23 06:48 97.2 F 60 16 104/53 L 99 Room Air 12/27/23 05:56 97.2 F 60 16 100/52 L 93 12/27/23 05:54 97.2 F 60 16 100/52 L 93 Room Air 12/27/23 05:51 97.2 F 60 16 100/52 L 93 Anesthesia: General Mental Status: Awake Pain Control: Satisfactory Nausea/Vomiting: None Hydration: Adequate Anesthesia-Related Issues: No Anes. Related Issues
[2023-12-27] MEDS: Lactated Ringers 1,000 ML 100 ML IVCONT (08:36)
--- NOTE | 2023-12-27 08:44 | HO.PSYCHPN ---
Subjective Subjective Date of Service: 12/27/23 Reason For Visit: Major depressive disorder, severe, recurrent Subjective Notes: Section 8 Interim History: Pt slept most of the night. She her speech is more spontaneous. She denies SI/HI. She does endorse some depression but states is better. She denies VH/AH. Somewhat somnolent after ECT. denies headache. Has been more active yesterday completing ADLs on her own and spontaneously verbal. Diagnostics Vital Signs (24Hr): Vital Signs - 24 hr 12/26/23 20:00 12/27/23 05:51 12/27/23 05:54 Temperature 98.2 F 97.2 F 97.2 F Pulse Rate 80 60 60 Respiratory Rate 16 16 16 Blood Pressure 103/54 L 100/52 L 100/52 L Pulse Oximetry 97 93 93 Oxygen Delivery Method Room Air Room Air Oxygen Flow Rate 12/27/23 05:56 12/27/23 06:48 12/27/23 07:28 Temperature 97.2 F 97.2 F 98.2 F Pulse Rate 60 60 71 Respiratory Rate 16 16 16 Blood Pressure 100/52 L 104/53 L 103/55 L Pulse Oximetry 93 99 100 Oxygen Delivery Method Room Air Nasal Cannula with ETCO2 Oxygen Flow Rate 2 12/27/23 07:33 12/27/23 07:38 12/27/23 07:43 Temperature Pulse Rate 93 90 87 Respiratory Rate 16 16 16 Blood Pressure 122/81 120/76 111/59 L Pulse Oximetry 100 100 97 Oxygen Delivery Method Nasal Cannula with ETCO2 Room Air Room Air Oxygen Flow Rate 2 12/27/23 07:58 12/27/23 08:13 Temperature 97.6 F Pulse Rate 73 72 Respiratory Rate 16 16 Blood Pressure 115/56 L 111/54 L Pulse Oximetry 97 98 Oxygen Delivery Method Room Air Room Air Oxygen Flow Rate BMI result Body Mass Index 20.1 Labs 12/09/23 09:57 12/14/23 07:37 Labs: Laboratory Results - last 48 hr 12/25/23 12/25/23 12/25/23 11:37 16:27 19:53 POC Glucose 244 H 213 H 264 H 12/26/23 12/26/23 12/26/23 06:50 11:36 16:27 POC Glucose 184 H 407 H* 343 H 12/26/23 12/27/23 19:55 06:00 POC Glucose 265 H 158 H Imaging Radiology Impressions: ITS Impressions Chest X-Ray 12/03/23 12:20 IMPRESSION: 1. Chronic interstitial prominence without focal consolidative airspace opacity. 2. Densities along the left lower chest which may represent pleural calcifications versus soft tissue calcifications. Correlation with lateral radiograph could help further evaluate. Electronically signed by: Viral Smallwood MD 12/03/2023 01:33 PM EDT RP Head CT 12/03/23 13:17 IMPRESSION: 1. No acute intracranial abnormalities. No intracranial hemorrhage or mass effect. 2. Moderate small vessel ischemic changes in the hemispheric white matter. 3. 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 4. Age advanced cerebral and cerebellar involutional changes with prominent ventricles. Cannot definitively exclude a component of communicating hydrocephalus given the appearance. Head CT 12/10/23 21:05 IMPRESSION: No acute intracranial abnormality including hemorrhage, mass effect, hydrocephalus, or acute territorial edematous infarction. Electronically signed by: Juan Alberto Murdock MD 12/10/2023 10:07 PM EDT RP Medications Medications Current Medications Acetaminophen (Acetaminophen 325 Mg Tablet) 650 mg PO Q6H PRN PRN Reason: Headache/Pain Mild Scale (1-3) Al Hydroxide/Mg Hydroxide (Magnesium Hydrox/Alum Hydrox 30 Ml Oral.Susp) 30 ml PO Q6H PRN PRN Reason: Heartburn/Nausea Amlodipine Besylate (Amlodipine Besylate 5 Mg Tablet) 5 mg PO DAILY [facility]; Protocol Last Admin: 12/26/23 08:22 Dose: 5 mg Anastrozole (Anastrozole 1 Mg Tablet) 1 mg PO DAILY [facility] Last Admin: 12/26/23 08:23 Dose: 1 mg Aspirin (Aspirin 81 Mg Tab.Chew) 81 mg PO DAILY [facility] Last Admin: 12/26/23 08:22 Dose: 81 mg Atorvastatin Calcium (Atorvastatin Calcium 10 Mg Tablet) 10 mg PO BEDTIME [facility] Last Admin: 12/26/23 20:30 Dose: 10 mg Ferrous Sulfate (Ferrous Sulfate 324 Mg Tablet.) 324 mg PO DAILY [facility] Last Admin: 12/26/23 08:20 Dose: 324 mg Furosemide (Furosemide 20 Mg Tablet) 20 mg PO DAILY [facility]; Protocol Last Admin: 12/26/23 08:21 Dose: 20 mg Glucose (Glucose Gel 15 Gm Gel..Gram.) 15 gm PO Q15M PRN; Protocol PRN Reason: per Hypoglycemia Standing Ord. Dextrose (D10) 250 mls @ 750 mls/hr IV Q15M PRN; Protocol PRN Reason: per Hypoglycemia Standing Ord. Lactated Ringer's (Lr) 1,000 mls @ 100 mls/hr IVCONT .Q10H [facility] Last Infusion: 12/27/23 08:37 Dose: Infused Insulin Glargine (Insulin Glargine,Hum.Rec.Anlog 100 Unit/Ml 10 Ml Vial) 6 unit SUBCUT BEDTIME [facility] Last Admin: 12/26/23 20:33 Dose: 6 unit Insulin Human Lispro (Insulin Lispro 100 Unit/Ml 3 Ml Vial) 0 unit SUBCUT QIDACHS [facility]; Protocol Last Admin: 12/26/23 20:32 Dose: 6 unit Loratadine (Loratadine 10 Mg Tablet) 10 mg PO BEDTIME [facility] Last Admin: 12/26/23 20:30 Dose: 10 mg Losartan Potassium (Losartan Potassium 50 Mg Tablet) 100 mg PO DAILY [facility]; Protocol Last Admin: 12/26/23 08:22 Dose: 100 mg Magnesium Hydroxide (Milk Of Magnesia 30 Ml Oral.Susp) 30 ml PO DAILY PRN PRN Reason: Constipation Magnesium Oxide (Magnesium Oxide 400 Mg Tablet) 400 mg PO BID [facility] Last Admin: 12/26/23 20:30 Dose: 400 mg Mirtazapine (Mirtazapine 30 Mg Tablet) 30 mg PO BEDTIME [facility] Last Admin: 12/26/23 20:30 Dose: 30 mg Multivitamins/Vitamin C (Multivitamin Tablet) 1 tab PO DAILY [facility] Last Admin: 12/26/23 08:20 Dose: 1 tab Naloxone HCl (Naloxone Hcl 0.4 Mg/Ml Vial) 0.04 mg IVPUSH Q5M PRN PRN Reason: Excessive sedation or RR < 8 Naloxone HCl (Naloxone Hcl 0.4 Mg/Ml Vial) 0.04 mg IVPUSH Q5M PRN PRN Reason: Excessive sedation or RR < 8 Nicotine Polacrilex (Nicotine Polacrilex 2 Mg Gum) 4 mg BUCCAL Q2H PRN PRN Reason: Nicotine Cravings Omeprazole (Omeprazole 20 Mg Capsule.Dr) 20 mg PO DAILY@0630 [facility] Last Admin: 12/27/23 05:45 Dose: Not Given Risperidone (Risperidone 0.5 Mg Tablet) 0.5 mg PO BID PRN PRN Reason: Restlessness Sodium Chloride (0.9 % Sodium Chloride Flush 3 Ml Syringe) 3 ml IVFLUSH QSHIFT [facility] Last Admin: 12/27/23 00:34 Dose: 3 ml Thiamine HCl (Thiamine Hcl 100 Mg Tablet) 100 mg PO DAILY [facility] Last Admin: 12/26/23 08:22 Dose: 100 mg Trazodone HCl (Trazodone Hcl 50 Mg Tablet) 50 mg PO BEDTIME PRN PRN Reason: Insomnia Last Admin: 12/08/23 22:06 Dose: 50 mg Valproic Acid (Valproic Acid (As Sodium Salt) 250 Mg/5 Ml Solution) 250 mg PO BID [facility] Last Admin: 12/26/23 20:29 Dose: 250 mg Allergies Allergies Allergy/AdvReac Type Severity Reaction Status Date / Time atropine Allergy Unknown Shortness Verified 12/02/23 23:30 of Breath enoxaparin [From Lovenox] Allergy Unknown Unknown Verified 12/02/23 23:30 penicillin V Allergy Unknown Unknown Verified 03/19/23 07:30 pseudoephedrine [Aprodine] Allergy Unknown Unknown Verified 03/19/23 07:30 triprolidine [Aprodine] Allergy Unknown Unknown Verified 03/19/23 07:30 Assessment & Plan Assessment & Plan (1) Major depressive disorder with psychotic features: Status: Acute Code(s): F32.3 - Major depressive disorder, single episode, severe with psychotic features Assessment and Plan: 12/15/23: Continue tx plan Plan 73-year-old female with history of insulin-dependent type 2 diabetes, hypertension, hyperlipidemia, history of C diff colitis, hypothyroidism, heart failure preserved ejection fraction, cirrhosis admitted to [facility] for catatonia with consult placed to hospitalist service for ect risk stratification. Pt with class II risk on revised cardiac risk index given history of CHF though is clinically euvolemic on exam. Lungs are clear. Has known but no murmurs heard on exam. Would recommend checking EKG to assess for ECT prolongation prior to ECT treatment. Unable to assess ROS. Based on RCRI and known history of ECT with good tolerance there does not appear to be any acute medical contraindication that should preclude patient from undergoing ect. Appropriate anesthesia precautions should be taken given known history of BASIL. Pt also noted to have equal but fixed pupils on exam which was not noted on initial H&P. She is catatonic and unable to participate in further CN exam or provide history. Did have Head CT on 12/02 negative for acute intracranial abnormalities which showed moderate small-vessel ischemic changes in hemispheric white matter numerous old lacunar infarcts as well as age advanced cerebral and cerebellar involutional changes with prominent ventricles. At this time, recommend repeating head CT and can consider Neurology evaluation at discretion of psychiatrist Will continue following for results Plan 1. Continue with same treatment. 2. Continue with ECT as scheduled. 3. Cardiology has cleared her. Reason for continued inpatient stay Substantial Risk for: inability to function Time Spent With Patient Time: Total time managing care of this patient today ____ minutes.
[2023-12-27] MEDS: amLODIPine Besylate 5 MG TABLET PO (09:49)
[2023-12-27] MEDS: Ferrous Sulfate 324 MG TABLET.DR PO (09:49)
[2023-12-27] MEDS: Thiamine HCL 100 MG TABLET PO (09:49)
[2023-12-27] MEDS: Magnesium Oxide 400 MG TABLET PO ×2 (09:49→20:42)
[2023-12-27] MEDS: Multivitamin TABLET 1 TAB PO (09:49)
[2023-12-27] MEDS: Furosemide 20 MG TABLET PO (09:50)
[2023-12-27] MEDS: Losartan Potassium 50 MG TABLET 100 MG PO (09:50)
[2023-12-27] MEDS: Anastrozole 1 MG TABLET PO (09:50)
[2023-12-27] MEDS: Aspirin 81 MG TAB.CHEW PO (09:50)
--- NOTE | 2023-12-27 11:19 | PM.EVENT ---
Event Note Date of Service: 12/27/23 Event Note: Pt is a 73-year-old female with a PMH significant for insulin-dependent type 2 diabetes, hypertension, hyperlipidemia, history of C diff colitis, hypothyroidism, heart failure preserved ejection fraction, cirrhosis admitted to [facility] Psych[facility]ry for catatonia with consult placed to hospitalist service for hyperglycemia. Review of patient's POC is indicate sugars are reasonably well-controlled in the mornings and consistently under 200, but increased as the day wears on which is a pattern consistent with not adhering to a diabetic diet. Will make slight changes to sliding-scale at the upper end and increase bedtime Lantus dose by 2 units, but glycemic control will only be able to be achieved if patient adheres to a diabetic diet and diabetic snacking. Time Spent With Patient Time: Total time managing care of this patient today ____ minutes.
[2023-12-27 11:36] LABS: Glucose, Whole Blood 391 mg/dL (60-115)
[2023-12-27] MEDS: Insulin Lispro 100 UNIT/ML 3 ML VIAL SUBCUT ×3 (11:52→20:39)
--- NOTE | 2023-12-27 15:15 | HO.WOUND ---
Wound Consult: Follow up 73yr old?female admitted to [facility] on 12/02/23 to the [facility] Unit - See progress notes and H&P for detailed history.? Wound consult follow up for coccyx wound POA.? Patient agreeable to assessment and photo documentation. Healed Sacrum / Coccyx - no open tissue noted - patient remains at significant risk -preventative measures should still be employed - recommend continued use of JASSON mattress and sacral foam dressing. JASSON mattress in use, turns and repositions and off loading with pillows. Recommendations: 1. Turn and Reposition every 2 hours and as needed for patient comfort.? Use pillows or wedges to support off loading positions. 2. Off Load all bony prominences with use of pillows and heel boots if needed.? Apply Preventative foams where needed. ? 3. Monitor for incontinence and moisture control, use barrier creams when needed for prevention and treatment. 4. Provide adequate and supplemental nutrition.? 5. Order low air loss mattress. 6. When applicable maintain blood glucose levels per Providers order. 7. Coccyx - Off Load Pressure? - Cleanse with PH balance spray or wipes, pat dry. ?Apply sacral foam dressing to aid in off loading and protection from friction. Peel back and assess Q shift and change every 5 days and PRN. Re-consult wound care Nurse for wound deterioration or wound changes.
[2023-12-27 16:48] LABS: Glucose, Whole Blood 489 mg/dL (60-115)
[2023-12-27 19:59] LABS: Glucose, Whole Blood 400 mg/dL (60-115)
[2023-12-27] MEDS: Insulin Glargine,Hum.rec.anlog 100 UNIT/ML 10 ML VIAL 8 UNIT SUBCUT (20:40)
[2023-12-27] MEDS: Mirtazapine 30 MG TABLET PO (20:42)
[2023-12-27] MEDS: traZODone HCL 50 MG TABLET PO (20:42)
[2023-12-27] MEDS: Atorvastatin Calcium 10 MG TABLET PO (20:42)
[2023-12-27] MEDS: Loratadine 10 MG TABLET PO (20:42)
[2023-12-28] MEDS: Omeprazole 20 MG CAPSULE.DR PO (06:02)
[2023-12-28 06:44] LABS: Glucose, Whole Blood 234 mg/dL (60-115)
--- NOTE | 2023-12-28 09:25 | P.PNPSI_ITS ---
Subjective Subjective Date of Service: 12/28/23 Reason For Visit: Major depressive disorder, severe, recurrent Subjective Notes: Section 8 Interim History: Pt slept most of the night. She was mostly in bed today, sleeping. Did wake up when called her name but speech again not spontaneous. VS stable. Taking medications as prescribed. Review of Systems Review of Systems Not obtainable. Yes all other systems are reviewed and are negative and Unobtainable due to mental status Mental Status Exam Mental Status Exam Narrative: mostly sleeping, speech not spontaneous. Diagnostics Vital Signs (24Hr): Vital Signs - 24 hr 12/27/23 09:48 12/27/23 09:48 12/27/23 20:00 Temperature 98.6 F 98.6 F 98.8 F Pulse Rate 93 73 80 Respiratory Rate 14 14 16 Blood Pressure 118/55 L 118/55 L 111/86 Pulse Oximetry 98 99 Oxygen Delivery Method Room Air Room Air BMI result Body Mass Index 21.7 Labs 12/09/23 09:57 12/14/23 07:37 Labs: Laboratory Results - last 48 hr 12/26/23 12/26/23 12/26/23 11:36 16:27 19:55 POC Glucose 407 H* 343 H 265 H 12/27/23 12/27/23 12/27/23 06:00 11:30 16:28 POC Glucose 158 H 391 H* 489 H* 12/27/23 12/28/23 19:55 06:35 POC Glucose 400 H* 234 H Imaging Radiology Impressions: ITS Impressions Chest X-Ray 12/03/23 12:20 IMPRESSION: 1. Chronic interstitial prominence without focal consolidative airspace opacity. 2. Densities along the left lower chest which may represent pleural calcifications versus soft tissue calcifications. Correlation with lateral radiograph could help further evaluate. Electronically signed by: Viral Smallwood MD 12/03/2023 01:[address] 12/03/23 13:17 IMPRESSION: 1. No acute intracranial abnormalities. No intracranial hemorrhage or mass effect. 2. Moderate small vessel ischemic changes in the hemispheric white matter. 3. 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 4. Age advanced cerebral and cerebellar involutional changes with prominent ventricles. Cannot definitively exclude a component of communicating hydrocephalus given the appearance. Head CT 12/10/23 21:05 IMPRESSION: No acute intracranial abnormality including hemorrhage, mass effect, hydrocephalus, or acute territorial edematous infarction. Electronically signed by: Juan Alberto Murdock MD 12/10/2023 10:07 PM EDT Medications Medications Current Medications Acetaminophen (Acetaminophen 325 Mg Tablet) 650 mg PO Q6H PRN PRN Reason: Headache/Pain Mild Scale (1-3) Al Hydroxide/Mg Hydroxide (Magnesium Hydrox/Alum Hydrox 30 Ml Oral.Susp) 30 ml PO Q6H PRN PRN Reason: Heartburn/Nausea Amlodipine Besylate (Amlodipine Besylate 5 Mg Tablet) 5 mg PO DAILY [facility]; Protocol Last Admin: 12/27/23 09:49 Dose: 5 mg Anastrozole (Anastrozole 1 Mg Tablet) 1 mg PO DAILY [facility] Last Admin: 12/27/23 09:50 Dose: 1 mg Aspirin (Aspirin 81 Mg Tab.Chew) 81 mg PO DAILY [facility] Last Admin: 12/27/23 09:50 Dose: 81 mg Atorvastatin Calcium (Atorvastatin Calcium 10 Mg Tablet) 10 mg PO BEDTIME [facility] Last Admin: 12/27/23 20:42 Dose: 10 mg Ferrous Sulfate (Ferrous Sulfate 324 Mg Tablet.Dr) 324 mg PO DAILY [facility] Last Admin: 12/27/23 09:49 Dose: 324 mg Furosemide (Furosemide 20 Mg Tablet) 20 mg PO DAILY [facility]; Protocol Last Admin: 12/27/23 09:50 Dose: 20 mg Glucose (Glucose Gel 15 Gm Gel..Gram.) 15 gm PO Q15M PRN; Protocol PRN Reason: per Hypoglycemia Standing Ord. Insulin Glargine (Insulin Glargine,Hum.Rec.Anlog 100 Unit/Ml 10 Ml Vial) 8 unit SUBCUT BEDTIME [facility] Last Admin: 12/27/23 20:40 Dose: 8 unit Insulin Human Lispro (Insulin Lispro 100 Unit/Ml 3 Ml Vial) 0 unit SUBCUT QIDACHS [facility]; Protocol Last Admin: 12/27/23 20:39 Dose: 10 unit Loratadine (Loratadine 10 Mg Tablet) 10 mg PO BEDTIME [facility] Last Admin: 12/27/23 20:42 Dose: 10 mg Losartan Potassium (Losartan Potassium 50 Mg Tablet) 100 mg PO DAILY [facility]; Protocol Last Admin: 12/27/23 09:50 Dose: 100 mg Magnesium Hydroxide (Milk Of Magnesia 30 Ml Oral.Susp) 30 ml PO DAILY PRN PRN Reason: Constipation Magnesium Oxide (Magnesium Oxide 400 Mg Tablet) 400 mg PO BID [facility] Last Admin: 12/27/23 20:42 Dose: 400 mg Mirtazapine (Mirtazapine 30 Mg Tablet) 30 mg PO BEDTIME [facility] Last Admin: 12/27/23 20:42 Dose: 30 mg Multivitamins/Vitamin C (Multivitamin Tablet) 1 tab PO DAILY [facility] Last Admin: 12/27/23 09:49 Dose: 1 tab Naloxone HCl (Naloxone Hcl 0.4 Mg/Ml Vial) 0.04 mg IVPUSH Q5M PRN PRN Reason: Excessive sedation or RR < 8 Naloxone HCl (Naloxone Hcl 0.4 Mg/Ml Vial) 0.04 mg IVPUSH Q5M PRN PRN Reason: Excessive sedation or RR < 8 Nicotine Polacrilex (Nicotine Polacrilex 2 Mg Gum) 4 mg BUCCAL Q2H PRN PRN Reason: Nicotine Cravings Omeprazole (Omeprazole 20 Mg Capsule.Dr) 20 mg PO DAILY@0630 [facility] Last Admin: 12/28/23 06:02 Dose: 20 mg Risperidone (Risperidone 0.5 Mg Tablet) 0.5 mg PO BID PRN PRN Reason: Restlessness Thiamine HCl (Thiamine Hcl 100 Mg Tablet) 100 mg PO DAILY [facility] Last Admin: 12/27/23 09:49 Dose: 100 mg Trazodone HCl (Trazodone Hcl 50 Mg Tablet) 50 mg PO BEDTIME PRN PRN Reason: Insomnia Last Admin: 12/27/23 20:42 Dose: 50 mg Valproic Acid (Valproic Acid (As Sodium Salt) 250 Mg/5 Ml Solution) 250 mg PO BID [facility] Last Admin: 12/27/23 20:42 Dose: 250 mg Allergies Allergies Allergy/AdvReac Type Severity Reaction Status Date / Time atropine Allergy Unknown Shortness Verified 12/02/23 23:30 of Breath enoxaparin [From Lovenox] Allergy Unknown Unknown Verified 12/02/23 23:30 penicillin V Allergy Unknown Unknown Verified 03/19/23 07:30 pseudoephedrine [Aprodine] Allergy Unknown Unknown Verified 03/19/23 07:30 triprolidine [Aprodine] Allergy Unknown Unknown Verified 03/19/23 07:30 Assessment & Plan Assessment & Plan (1) Major depressive disorder with psychotic features: Status: Acute Code(s): F32.3 - Major depressive disorder, single episode, severe with psychotic features Assessment and Plan: 12/15/23: Continue tx plan Plan 73-year-old female with history of insulin-dependent type 2 diabetes, hypertension, hyperlipidemia, history of C diff colitis, hypothyroidism, heart failure preserved ejection fraction, cirrhosis admitted to Ger[facility] Psychiatry for catatonia with consult placed to hospitalist service for ect risk stratification. Pt with class II risk on revised cardiac risk index given history of CHF though is clinically euvolemic on exam. Lungs are clear. Has known but no murmurs heard on exam. Would recommend checking EKG to assess for ECT prolongation prior to ECT treatment. Unable to assess ROS. Based on RCRI and known history of ECT with good tolerance there does not appear to be any acute medical contraindication that should preclude patient from undergoing ect. Appropriate anesthesia precautions should be taken given known history of BASIL. Pt also noted to have equal but fixed pupils on exam which was not noted on initial H&P. She is catatonic and unable to participate in further CN exam or provide history. Did have Head CT on 12/02 negative for acute intracranial abnormalities which showed moderate small-vessel ischemic changes in hemispheric white matter numerous old lacunar infarcts as well as age advanced cerebral and cerebellar involutional changes with prominent ventricles. At this time, recommend repeating head CT and can consider Neurology evaluation at discretion of psychiatrist Will continue following for results Plan 1. Continue with same treatment. 2. Continue with ECT as scheduled. 3. Cardiology has cleared her. Reason for continued inpatient stay Substantial Risk for: inability to function Time Spent With Patient Time: Total time managing care of this patient today ____ minutes.
[2023-12-28 10:00] VITALS: BP 110/56; PULSE 66; RESP 18; TEMP 36.6; O2SAT 95
[2023-12-28 11:23] LABS: Glucose, Whole Blood 184 mg/dL (60-115)
[2023-12-28 16:11] LABS: Glucose, Whole Blood 148 mg/dL (60-115)
[2023-12-28 16:13] VITALS: BP 111/73; PULSE 63; RESP 18; TEMP 36.7; O2SAT 97
[2023-12-28 20:00] VITALS: BP 94/51; PULSE 72; RESP 16; TEMP 36.9; O2SAT 94
[2023-12-28] MEDS: Mirtazapine 30 MG TABLET PO (20:34)
[2023-12-28] MEDS: Magnesium Oxide 400 MG TABLET PO (20:34)
[2023-12-28] MEDS: Atorvastatin Calcium 10 MG TABLET PO (20:34)
[2023-12-28] MEDS: Loratadine 10 MG TABLET PO (20:41)
--- NOTE | 2023-12-28 21:00 | PC.NURSE ---
poc [id number] reported to simon mcdonald-plan 1. give scheduled lantus 8 units now 2. repeat poc in 1 hour and tx with lispro sliding scale.
[2023-12-28] MEDS: Insulin Glargine,Hum.rec.anlog 100 UNIT/ML 10 ML VIAL 8 UNIT SUBCUT (21:13)
[2023-12-28 21:20] LABS: Glucose, Whole Blood 369 mg/dL (60-115)
[2023-12-28] MEDS: Insulin Lispro 100 UNIT/ML 3 ML VIAL SUBCUT (22:25)
--- NOTE | 2023-12-28 22:30 | PC.NURSE ---
repeat poc following 1 hour after lantus administration 403- provider simon mcdonald notified plan-tx per protocol 12 units of lispro sc and repeat poc in am.
[2023-12-28 22:33] LABS: Glucose, Whole Blood 403 mg/dL (60-115)
[2023-12-29 06:24] LABS: Glucose, Whole Blood 168 mg/dL (60-115)
[2023-12-29] MEDS: Multivitamin TABLET 1 TAB PO (09:36)
[2023-12-29] MEDS: Insulin Lispro 100 UNIT/ML 3 ML VIAL SUBCUT ×3 (09:36→21:06)
[2023-12-29] MEDS: Furosemide 20 MG TABLET PO (09:36)
[2023-12-29] MEDS: Anastrozole 1 MG TABLET PO (09:36)
[2023-12-29] MEDS: Magnesium Oxide 400 MG TABLET PO ×2 (09:36→20:26)
[2023-12-29 09:37] VITALS: BP 111/58; PULSE 67; RESP 18; TEMP 36.5; O2SAT 96
[2023-12-29] MEDS: Thiamine HCL 100 MG TABLET PO (09:37)
[2023-12-29] MEDS: Aspirin 81 MG TAB.CHEW PO (09:37)
[2023-12-29] MEDS: Ferrous Sulfate 324 MG TABLET.DR PO (09:37)
[2023-12-29] MEDS: Losartan Potassium 50 MG TABLET 100 MG PO (09:37)
[2023-12-29] MEDS: amLODIPine Besylate 5 MG TABLET PO (09:37)
[2023-12-29 11:15] LABS: Glucose, Whole Blood 300 mg/dL (60-115)
--- NOTE | 2023-12-29 11:26 | HO.PSYCHPN ---
Subjective Subjective Date of Service: 12/29/23 Reason For Visit: Major depressive disorder, severe, recurrent Subjective Notes: Section 8 Interim History: Pt slept most of the night. Sh is up in chair but again not as talkative, minimally sponaneous. Not able to complete things by herself as she did few days ago. Sh may be showing regression in symptoms but will order cbc, cmp UA to rule out medical causes. VS stable. No SOB, no overt or evident acute medical condition going on. Review of Systems Review of Systems Not obtainable. Yes all other systems are reviewed and are negative and Unobtainable due to mental status Mental Status Exam Mental Status Exam Narrative: mostly sleeping, speech not spontaneous. Patient Appearance: Appropriate Patient Orientation: Person and Situation Level of Consciousness: Awake and Appropriate Patient Behavior: Guarded and Passive Mood Description: Withdrawn Affect Description: Constricted Patient Cognition Impaired: Yes Ability to Follow Directions: Good Speech Pattern: Clear Diagnostics Vital Signs (24Hr): Vital Signs - 24 hr 12/28/23 16:13 12/28/23 20:00 12/29/23 09:37 Temperature 98.0 F 98.4 F Pulse Rate 63 72 Respiratory Rate 18 16 Blood Pressure 111/73 94/51 L 111/58 L Pulse Oximetry 97 94 Oxygen Delivery Method Room Air Room Air 12/29/23 09:37 Temperature 97.7 F Pulse Rate 67 Respiratory Rate 18 Blood Pressure 111/58 L Pulse Oximetry 96 Oxygen Delivery Method Room Air BMI result Body Mass Index 21.7 Labs 12/09/23 09:57 12/14/23 07:37 Labs: Laboratory Results - last 48 hr 12/27/23 12/27/23 12/27/23 11:30 16:28 19:55 POC Glucose 391 H* 489 H* 400 H* 12/28/23 12/28/23 12/28/23 06:35 11:18 16:02 POC Glucose 234 H 184 H 148 H 12/28/23 12/28/23 12/29/23 20:21 22:14 05:58 POC Glucose 369 H* 403 H* 168 H 12/29/23 11:08 POC Glucose 300 H Imaging Radiology Impressions: ITS Impressions Chest X-Ray 12/03/23 12:20 IMPRESSION: 1. Chronic interstitial prominence without focal consolidative airspace opacity. 2. Densities along the left lower chest which may represent pleural calcifications versus soft tissue calcifications. Correlation with lateral radiograph could help further evaluate. Electronically signed by: Viral Smallwood MD 12/03/2023 01:33 PM EDT RP Head CT 12/03/23 13:17 IMPRESSION: 1. No acute intracranial abnormalities. No intracranial hemorrhage or mass effect. 2. Moderate small vessel ischemic changes in the hemispheric white matter. 3. 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 4. Age advanced cerebral and cerebellar involutional changes with prominent ventricles. Cannot definitively exclude a component of communicating hydrocephalus given the appearance. Head CT 12/10/23 21:05 IMPRESSION: No acute intracranial abnormality including hemorrhage, mass effect, hydrocephalus, or acute territorial edematous infarction. Electronically signed by: Juan Alberto Murdock MD 12/10/2023 10:07 PM EDT RP Medications Medications Current Medications Acetaminophen (Acetaminophen 325 Mg Tablet) 650 mg PO Q6H PRN PRN Reason: Headache/Pain Mild Scale (1-3) Al Hydroxide/Mg Hydroxide (Magnesium Hydrox/Alum Hydrox 30 Ml Oral.Susp) 30 ml PO Q6H PRN PRN Reason: Heartburn/Nausea Amlodipine Besylate (Amlodipine Besylate 5 Mg Tablet) 5 mg PO DAILY [facility]; Protocol Last Admin: 12/29/23 09:37 Dose: 5 mg Anastrozole (Anastrozole 1 Mg Tablet) 1 mg PO DAILY [facility] [place] Last Admin: 12/29/23 09:36 Dose: 1 mg Aspirin (Aspirin 81 Mg Tab.Chew) 81 mg PO DAILY [facility] Last Admin: 12/29/23 09:37 Dose: 81 mg Atorvastatin Calcium (Atorvastatin Calcium 10 Mg Tablet) 10 mg PO BEDTIME [facility] Last Admin: 12/28/23 20:34 Dose: 10 mg Ferrous Sulfate (Ferrous Sulfate 324 Mg Tablet.Dr) 324 mg PO DAILY [facility] Last Admin: 12/29/23 09:37 Dose: 324 mg Furosemide (Furosemide 20 Mg Tablet) 20 mg PO DAILY [facility]; Protocol Last Admin: 12/29/23 09:36 Dose: 20 mg Glucose (Glucose Gel 15 Gm Gel..Gram.) 15 gm PO Q15M PRN; Protocol PRN Reason: per Hypoglycemia Standing Ord. Insulin Glargine (Insulin Glargine,Hum.Rec.Anlog 100 Unit/Ml 10 Ml Vial) 8 unit SUBCUT BEDTIME [facility] Last Admin: 12/28/23 21:13 Dose: 8 unit Insulin Human Lispro (Insulin Lispro 100 Unit/Ml 3 Ml Vial) 0 unit SUBCUT QIDACHS [facility]; Protocol Last Admin: 12/29/23 09:36 Dose: 2 unit Loratadine (Loratadine 10 Mg Tablet) 10 mg PO BEDTIME [facility] Last Admin: 12/28/23 20:41 Dose: 10 mg Losartan Potassium (Losartan Potassium 50 Mg Tablet) 100 mg PO DAILY [facility]; Protocol Last Admin: 12/29/23 09:37 Dose: 100 mg Magnesium Hydroxide (Milk Of Magnesia 30 Ml Oral.Susp) 30 ml PO DAILY PRN PRN Reason: Constipation Magnesium Oxide (Magnesium Oxide 400 Mg Tablet) 400 mg PO BID [facility] [place] Last Admin: 12/29/23 09:36 Dose: 400 mg Mirtazapine (Mirtazapine 30 Mg Tablet) 30 mg PO BEDTIME [facility] [place] Last Admin: 12/28/23 20:34 Dose: 30 mg Multivitamins/Vitamin C (Multivitamin Tablet) 1 tab PO DAILY [facility] [place] Last Admin: 12/29/23 09:36 Dose: 1 tab Naloxone HCl (Naloxone Hcl 0.4 Mg/Ml Vial) 0.04 mg IVPUSH Q5M PRN PRN Reason: Excessive sedation or RR < 8 Naloxone HCl (Naloxone Hcl 0.4 Mg/Ml Vial) 0.04 mg IVPUSH Q5M PRN PRN Reason: Excessive sedation or RR < 8 Nicotine Polacrilex (Nicotine Polacrilex 2 Mg Gum) 4 mg BUCCAL Q2H PRN PRN Reason: Nicotine Cravings Omeprazole (Omeprazole 20 Mg Capsule.Dr) 20 mg PO DAILY@0630 [facility] [place] Last Admin: 12/29/23 06:05 Dose: Not Given Risperidone (Risperidone 0.5 Mg Tablet) 0.5 mg PO BID PRN PRN Reason: Restlessness Thiamine HCl (Thiamine Hcl 100 Mg Tablet) 100 mg PO DAILY [facility] [place] Last Admin: 12/29/23 09:37 Dose: 100 mg Trazodone HCl (Trazodone Hcl 50 Mg Tablet) 50 mg PO BEDTIME PRN PRN Reason: Insomnia Last Admin: 12/27/23 20:42 Dose: 50 mg Valproic Acid (Valproic Acid (As Sodium Salt) 250 Mg/5 Ml Solution) 250 mg PO BID [facility] Last Admin: 12/29/23 09:38 Dose: 250 mg Allergies Allergies Allergy/AdvReac Type Severity Reaction Status Date / Time atropine Allergy Unknown Shortness Verified 12/02/23 23:30 of Breath enoxaparin [From Lovenox] Allergy Unknown Unknown Verified 12/02/23 23:30 penicillin V Allergy Unknown Unknown Verified 03/19/23 07:30 pseudoephedrine [Aprodine] Allergy Unknown Unknown Verified 03/19/23 07:30 triprolidine [Aprodine] Allergy Unknown Unknown Verified 03/19/23 07:30 Assessment & Plan Assessment & Plan (1) Major depressive disorder with psychotic features: Status: Acute Code(s): F32.3 - Major depressive disorder, single episode, severe with psychotic features Assessment and Plan: 12/15/23: Continue tx plan Plan 73-year-old female with history of insulin-dependent type 2 diabetes, hypertension, hyperlipidemia, history of C diff colitis, hypothyroidism, heart failure preserved ejection fraction, cirrhosis admitted to [facility] for catatonia with consult placed to hospitalist service for ect risk stratification. Pt with class II risk on revised cardiac risk index given history of CHF though is clinically euvolemic on exam. Lungs are clear. Has known but no murmurs heard on exam. Would recommend checking EKG to assess for ECT prolongation prior to ECT treatment. Unable to assess ROS. Based on RCRI and known history of ECT with good tolerance there does not appear to be any acute medical contraindication that should preclude patient from undergoing ect. Appropriate anesthesia precautions should be taken given known history of BASIL. 12/28 some regression in that again minimally verbal, will order just to muna sure nothing medical going on cbc, cmp and UA. Reason for continued inpatient stay Substantial Risk for: inability to function Time Spent With Patient Time: Total time managing care of this patient today ____ minutes.
[2023-12-29 12:07] LABS: MANUAL DIFF FLAG NO
[2023-12-29 12:08] LABS: Basophils Percent Auto 0.3 % (0-2); Eosinophils Percent Auto 1.2 % (0-4); Hematocrit 30.9 % (37.0-47.0); Hemoglobin 9.9 g/dl (12.0-16.0); Imm Gran Abs Auto 0.02 X10*3/uL (0.00-0.03); Imm Gran Pct Auto 0.6 % (0.0-0.4); Lymphocytes Absolute Auto 0.7 X10*3/uL (1.2-4.9); Lymphocytes Percent Auto 20.3 % (20-40); Mean Corpuscular Hemoglobin 27.8 pg (27.0-33.0); Mean Corpuscular Volume 86.8 fL (80.0-98.0); Mean Platelet Volume 10.4 fL (9.4-12.3); Monocytes Absolute Auto 0.3 X10*3/uL (0.1-1.2); Monocytes Percent Auto 7.5 % (2-11); Neutrophils Absolute Auto 2.4 x10*3/uL (2.0-8.3); Neutrophils Percent Auto 70.1 % (45-73); Red Blood Count 3.56 X10*6/uL (4.20-5.50); Red Cell Distribution Width 14.6 % (11.0-16.0); White Blood Count 3.5 X10*3/uL (4.8-10.8)
[2023-12-29 12:09] LABS: Platelet Count 75 X10*3/uL (160-400)
[2023-12-29] MEDS: Milk of Magnesia 30 ML ORAL.SUSP PO (12:36)
[2023-12-29 12:40] LABS: Alanine Aminotransferase 47 U/L (0-31); Albumin Level 3.4 g/dL (3.5-5.0); Alkaline Phosphatase 195 U/L (39-117); Anion Gap 14 (12-20); Aspartate Amino Transferase 52 U/L (5-31); Bilirubin Total 0.3 mg/dL (0.0-1.0); Blood Urea Nitrogen 40 mg/dL (9-16); Calcium 10.1 mg/dL (8.4-10.2); Carbon Dioxide 28 mmol/L (22-29); Chloride 100 mmol/L (96-108); Creatinine Clr Calc Pharmacy 36.4; Estimated Glomerular Filt Rate > 60; Glucose Random 364 mg/dL (60-115); Potassium 4.8 mmol/L (3.3-5.1); Sodium 137 mmol/L (135-145); Total Protein 8.6 g/dL (6.5-8.0)
[2023-12-29 16:35] LABS: Glucose, Whole Blood 285 mg/dL (60-115)
[2023-12-29 17:40] LABS: Appearance Urine Cloudy; Color Urine Yellow; Glucose Urine UA Negative (Negative); Leukocyte Esterase Urine Large (3+) (Negative); Nitrite Urine Positive (Negative); PH 7.5 (5.0-9.0); UMIC TRIGGER UA YES; Urine Blood Trace (Negative); Urine Ketones Negative (Negative); Urine Protein Trace mg/dL (Neg-Trace)
[2023-12-29 18:05] LABS: Bacteria Urine 3+ (None Seen); Hyaline Casts Urine 0-2 /LPF (0-2); RBC Urine 0-2 /HPF (0-2); Squamous Epithelial Cell Urine 0-2 /HPF (0-2); WBC Urine 21-50 /HPF (0-5)
[2023-12-29 20:00] VITALS: BP 112/55; PULSE 73; RESP 16; TEMP 36.9; O2SAT 98
[2023-12-29 20:05] LABS: Glucose, Whole Blood 242 mg/dL (60-115)
[2023-12-29] MEDS: Insulin Glargine,Hum.rec.anlog 100 UNIT/ML 10 ML VIAL 8 UNIT SUBCUT (20:23)
[2023-12-29] MEDS: Mirtazapine 30 MG TABLET PO (20:25)
[2023-12-29] MEDS: cefuroxime axetiL 250 MG TABLET PO (20:26)
[2023-12-29] MEDS: Atorvastatin Calcium 10 MG TABLET PO (20:26)
[2023-12-29] MEDS: Loratadine 10 MG TABLET PO (20:26)
[2023-12-30] VITALS (10 sets, daily range): BP systolic 103–144; BP diastolic 50–104; PULSE 62–101; RESP 14–18; TEMP 35.9–37.1; O2SAT 93–98
--- NOTE | 2023-12-30 07:02 | P.CONAN_ITS ---
Documented by User: Andrew Hicks MD 12/30/23 07:13 HPI - Anesthesia Eval Consult details Narrative: for ECT PMFSH Active Problems Active Problems: All Active Problems Hx of Clostridium difficile infection (Acute) Preoperative cardiovascular examination (Acute) Catatonia (Acute) Fixed constriction of pupil (Acute) Major depressive disorder with psychotic features (Acute) Dark stools (Acute) Routine medical exam (Acute) Essential hypertension (Acute) Type 2 diabetes mellitus with unspecified complications (Acute) Aortic valve sclerosis (Acute) Murmur (Acute) CKD (chronic kidney disease) stage 3, GFR 30-59 ml/min (Acute) Vitamin D deficiency (Acute) HLD (hyperlipidemia) (Acute) HTN (hypertension) (Acute) T2DM (type 2 diabetes mellitus) (Acute) Past Medical History Medical History Cirrhosis Hypothyroidism Breast cancer Hx of Clostridium difficile infection (HFpEF) heart failure with preserved ejection fraction Murmur CKD (chronic kidney disease) stage 3, GFR 30-59 ml/min Vitamin D deficiency HLD (hyperlipidemia) HTN (hypertension) T2DM (type 2 diabetes mellitus) Functional capacity: independent ambulation Family History Family History Father Alzheimer disease Stroke Mother Breast cancer Family history of problems with anesthesia: No Surgical History Surgical History Hx of cataract surgery History of lumpectomy of right breast History of mastectomy History of Problems with Anesthesia: No Social History Social History Household Members: Family Household Members Other:: son Alcohol intake: never Patient Tobacco Use Status: Never used Tobacco Use of substances other than those prescribed or required for medical reasons: Unable to respond Last Used Substance Other:: unknown, unable to respond, she is nonsensical and delusional when she does Currently Displaying Signs/Symptoms of Drug Intoxication Withdrawal: No Other Past Substance Use Problem:: unknown, unable to respond, she is nonsensical and delusional when she does Spiritual Healthcare Practices: unknown, unable to respond, she is nonsensical and delusional when she does respond Rast[facility] Healthcare Practices: unknown, unable to respond, she is nonsensical and delusional when she does respond Cultural Healthcare Practices: unknown, unable to respond, she is nonsensical and delusional when she does respond Advance Directives: No Advance Directives Information Provided: No Do you have thoughts of harming others: None Do you have a plan to hurt others: No Plan Recently lost weight without trying: Unsure Patient : No : No Poor oral hygiene: No service: No Sexual orientation: Straight/Heterosexual Meds Allergies Allergy/AdvReac Type Severity Reaction Status Date / Time atropine Allergy Unknown Shortness Verified 12/02/23 23:30 of Breath enoxaparin [From Lovenox] Allergy Unknown Unknown Verified 12/02/23 23:30 penicillin V Allergy Unknown Unknown Verified 03/19/23 07:30 pseudoephedrine [Aprodine] Allergy Unknown Unknown Verified 03/19/23 07:30 triprolidine [Aprodine] Allergy Unknown Unknown Verified 03/19/23 07:30 Active Medications: Current Medications Acetaminophen (Acetaminophen 325 Mg Tablet) 650 mg PO Q6H PRN PRN Reason: Headache/Pain Mild Scale (1-3) Al Hydroxide/Mg Hydroxide (Magnesium Hydrox/Alum Hydrox 30 Ml Oral.Susp) 30 ml PO Q6H PRN PRN Reason: Heartburn/Nausea Amlodipine Besylate (Amlodipine Besylate 5 Mg Tablet) 5 mg PO DAILY [facility]; Protocol Last Admin: 12/29/23 09:37 Dose: 5 mg Anastrozole (Anastrozole 1 Mg Tablet) 1 mg PO DAILY [facility] Last Admin: 12/29/23 09:36 Dose: 1 mg Aspirin (Aspirin 81 Mg Tab.Chew) 81 mg PO DAILY [facility] Last Admin: 12/29/23 09:37 Dose: 81 mg Atorvastatin Calcium (Atorvastatin Calcium 10 Mg Tablet) 10 mg PO BEDTIME [facility] Last Admin: 12/29/23 20:26 Dose: 10 mg Cefuroxime Axetil (Cefuroxime Axetil 250 Mg Tablet) 250 mg PO BID [facility]OVA Stop: 01/05/24 09:01 Last Admin: 12/29/23 20:26 Dose: 250 mg Ferrous Sulfate (Ferrous Sulfate 324 Mg Tablet.Dr) 324 mg PO DAILY [facility]OVA Last Admin: 12/29/23 09:37 Dose: 324 mg Furosemide (Furosemide 20 Mg Tablet) 20 mg PO DAILY [facility]; Protocol Last Admin: 12/29/23 09:36 Dose: 20 mg Glucose (Glucose Gel 15 Gm Gel..Gram.) 15 gm PO Q15M PRN; Protocol PRN Reason: per Hypoglycemia Standing Ord. Insulin Glargine (Insulin Glargine,Hum.Rec.Anlog 100 Unit/Ml 10 Ml Vial) 8 unit SUBCUT BEDTIME [facility] Last Admin: 12/29/23 20:23 Dose: 8 unit Insulin Human Lispro (Insulin Lispro 100 Unit/Ml 3 Ml Vial) 0 unit SUBCUT QIDACHS [facility]; Protocol Last Admin: 12/29/23 21:06 Dose: 4 unit Loratadine (Loratadine 10 Mg Tablet) 10 mg PO BEDTIME [facility] Last Admin: 12/29/23 20:26 Dose: 10 mg Losartan Potassium (Losartan Potassium 50 Mg Tablet) 100 mg PO DAILY [facility]; Protocol Last Admin: 12/29/23 09:37 Dose: 100 mg Magnesium Hydroxide (Milk Of Magnesia 30 Ml Oral.Susp) 30 ml PO DAILY PRN PRN Reason: Constipation Last Admin: 12/29/23 12:36 Dose: 30 ml Magnesium Oxide (Magnesium Oxide 400 Mg Tablet) 400 mg PO BID [facility] Last Admin: 12/29/23 20:26 Dose: 400 mg Mirtazapine (Mirtazapine 30 Mg Tablet) 30 mg PO BEDTIME [facility] Last Admin: 12/29/23 20:25 Dose: 30 mg Multivitamins/Vitamin C (Multivitamin Tablet) 1 tab PO DAILY [facility] Last Admin: 12/29/23 09:36 Dose: 1 tab Naloxone HCl (Naloxone Hcl 0.4 Mg/Ml Vial) 0.04 mg IVPUSH Q5M PRN PRN Reason: Excessive sedation or RR < 8 Naloxone HCl (Naloxone Hcl 0.4 Mg/Ml Vial) 0.04 mg IVPUSH Q5M PRN PRN Reason: Excessive sedation or RR < 8 Nicotine Polacrilex (Nicotine Polacrilex 2 Mg Gum) 4 mg BUCCAL Q2H PRN PRN Reason: Nicotine Cravings Omeprazole (Omeprazole 20 Mg Capsule.Dr) 20 mg PO DAILY@0630 [facility] Last Admin: 12/30/23 05:16 Dose: Not Given Risperidone (Risperidone 0.5 Mg Tablet) 0.5 mg PO BID PRN PRN Reason: Restlessness Thiamine HCl (Thiamine Hcl 100 Mg Tablet) 100 mg PO DAILY [facility] Last Admin: 09/15/24 09:37 Dose: 100 mg Trazodone HCl (Trazodone Hcl 50 Mg Tablet) 50 mg PO BEDTIME PRN PRN Reason: Insomnia Last Admin: 12/27/23 20:42 Dose: 50 mg Valproic Acid (Valproic Acid (As Sodium Salt) 250 Mg/5 Ml Solution) 250 mg PO BID [facility] Last Admin: 12/29/23 20:28 Dose: 250 mg Home Medications ?Medication ?Instructions ?Recorded ?Confirmed ?Last Taken ?Type ascorbate calcium (vitamin C) 500 500 mg PO DAILY 03/24/20 11/20/22 Unknown History mg tablet fluoxetine 20 mg capsule 40 mg PO DAILY 03/24/20 11/20/22 Unknown History levothyroxine 100 mcg tablet 100 mcg PO QAM 03/24/20 11/20/22 Unknown History mirtazapine 30 mg tablet 30 mg PO BEDTIME 03/24/20 11/20/22 Unknown History omeprazole 20 mg capsule,delayed 20 mg PO DAILY 03/24/20 11/20/22 Unknown History release risperidone 1 mg tablet 1 mg PO BEDTIME 03/24/20 11/20/22 Unknown History insulin glargine 100 unit/mL (3 30 unit subcut BEDTIME 09/28/20 11/20/22 Unknown History mL) subcutaneous pen anastrozole 1 mg tablet 1 mg PO DAILY 02/16/21 11/20/22 Unknown History dapagliflozin propanediol 10 mg 10 mg PO QAM 05/08/21 11/20/22 Unknown History tablet (Farxiga) losartan 50 mg tablet 50 mg PO DAILY 09/14/21 11/20/22 Unknown History amlodipine 5 mg tablet 5 mg PO QAM 12/02/23 12/02/23 Unknown History anastrozole 1 mg tablet 1 mg PO DAILY 12/02/23 12/02/23 Unknown History aspirin 81 mg chewable tablet 1 tab PO QAM 12/02/23 12/02/23 Unknown History cetirizine 5 mg tablet 5 mg PO BEDTIME 12/02/23 12/02/23 Unknown History divalproex 500 mg tablet,delayed 500 mg PO BEDTIME 12/02/23 12/02/23 Unknown History release ferrous sulfate 325 mg (65 mg 325 mg PO QAM 12/02/23 12/02/23 Unknown History iron) tablet (FeroSul) furosemide 20 mg tablet (Lasix) 20 mg PO DAILY 12/02/23 12/02/23 Unknown History insulin glargine 100 unit/mL 6 unit subcut BEDTIME 12/02/23 12/02/23 Unknown History subcutaneous solution insulin lispro 100 unit/mL 1 sliding scale dose subcut 12/02/23 12/02/23 Unknown History subcutaneous solution USEASDIRECTD levetiracetam 500 mg tablet 500 mg PO BID 12/02/23 12/02/23 Unknown History losartan 100 mg tablet 100 mg PO DAILY 12/02/23 12/02/23 Unknown History losartan 100 mg tablet 100 mg PO DAILY 12/02/23 12/02/23 Unknown History magnesium oxide 400 mg PO BID 12/02/23 12/02/23 Unknown History mirtazapine 30 mg disintegrating 30 mg PO BEDTIME 12/02/23 12/02/23 Unknown History tablet multivitamin with minerals 1 tab PO DAILY 12/02/23 12/02/23 Unknown History pantoprazole 40 mg tablet,delayed 40 mg PO DAILY 12/02/23 12/02/23 Unknown History release risperidone 0.5 mg tablet 0.5 mg PO BID PRN Agitation 12/02/23 12/02/23 Unknown History risperidone 2 mg tablet 2 mg PO BID 12/02/23 12/02/23 Unknown History simvastatin 20 mg tablet 20 mg PO BEDTIME 12/02/23 12/02/23 Unknown History thiamine HCl (vitamin B1) 100 mg 100 mg PO QAM 12/02/23 12/02/23 Unknown History tablet trazodone 50 mg tablet 50 mg PO BEDTIME PRN insomnia 12/02/23 12/02/23 Unknown History vancomycin 125 mg capsule See Rx Instructions .Route .COMPLEX 12/02/23 12/02/23 Unknown History (Vancocin) Exam Height,Weight and Vital Signs: Height 4 ft 11 in Weight 48.807 kg Last Vital Signs Temp 97.4 F 12/30/23 06:30 Pulse 64 12/30/23 06:30 Resp 16 12/30/23 06:30 BP 129/58 L 12/30/23 06:30 Pulse Ox 95 12/30/23 06:30 O2 Del Method Room Air 12/30/23 06:30 O2 Flow Rate 2 12/27/23 07:33 Pertinent Lab Results Pertinent Lab Results: Laboratory Tests 12/02/23 12/03/2324 22:55 06:35 08:01 WBC RBC Hgb Hct MCV MCH MCHC RDW Plt Count MPV Immature Gran % (Auto) Neut % (Auto) Lymph % (Auto) [place] % (Auto) Eos % (Auto) Baso % (Auto) Lymph # (Auto) [place] # (Auto) Eos # (Auto) Baso # (Auto) Abs Immat Gran (auto) Absolute Neuts (auto) Absolute Nucleated RBC Nucleated RBC % (auto) Sodium 134 L Potassium 4.0 Chloride 98 Carbon Dioxide 27 Anion Gap 13 BUN 21 H Creatinine 0.88 Estim Creat Clear Calc TNP Estimated GFR > 60 POC Glucose 296 H 212 H Random Glucose Fasting Glucose 236 H Estimat Average Glucose 169 Hemoglobin A1c % 7.5 H Calcium 10.2 Total Bilirubin 0.5 Direct Bilirubin AST 19 ALT 16 Alkaline Phosphatase 93 Ammonia Total Protein 8.7 H Albumin 3.5 Triglycerides 105 Cholesterol 182 LDL Cholesterol, Calc 93 HDL Cholesterol 68 Vitamin B12 Folate TSH Urine Color Urine Appearance Urine pH Ur Specific [place] Urine Protein Urine Glucose (UA) Urine Ketones Urine Blood Urine Nitrite Ur Leukocyte Esterase Urine RBC Urine WBC Ur Squamous Epith Cells Urine Bacteria Hyaline Casts Granular Casts Urine Yeast Stool Occult Blood Stl C. cayetanensis PCR Stool Rotavirus A PCR Stl Adenov F 40/41 PCR Stool Astrovirus (PCR) Stool Campylobacter PCR Stool Cryptosporidium PCR Stl Sh Tox Pr E STEC PCR Stool E coli O157 PCR Stl Enterotoxigenic E PCR Stool EPEC (PCR) Stool EAEC (PCR) Stl E. histolytica PCR Stool Giardia Lamblia PCR Stl P. shigelloides PCR Stool Salmonella PCR Stool Sapovirus (PCR) Stl Shigella/EIEC PCR St Y.enterocolitica PCR Stool Vibrio (PCR) Stl Vibrio cholerae PCR Stl Norovirus GI/GII PCR Valproic Acid C. difficile Tox B Gene C. difficile Toxin A&B C. difficile Interpret 12/03/23 12/03/23 12/03/23 10:29 11:31 11:45 WBC 4.6 L RBC 3.96 L Hgb 10.9 L Hct 33.1 L MCV 83.6 MCH 27.5 MCHC 32.9 RDW 14.9 Plt Count 116 L MPV 9.5 Immature Gran % (Auto) 0.2 Neut % (Auto) 70.4 Lymph % (Auto) 17.7 L [place] % (Auto) 10.4 Eos % (Auto) 1.1 Baso % (Auto) 0.2 Lymph # (Auto) 0.8 L [place] # (Auto) 0.5 Eos # (Auto) 0.1 Baso # (Auto) 0.0 Abs Immat Gran (auto) 0.01 Absolute Neuts (auto) 3.3 Absolute Nucleated RBC 0.000 Nucleated RBC % (auto) 0.0 Sodium Potassium Chloride Carbon Dioxide Anion Gap BUN Creatinine Estim Creat Clear Calc Estimated GFR POC Glucose 234 H Random Glucose Fasting Glucose Estimat Average Glucose Hemoglobin A1c % Calcium Total Bilirubin Direct Bilirubin AST ALT Alkaline Phosphatase Ammonia 55 Total Protein Albumin Triglycerides Cholesterol LDL Cholesterol, Calc HDL Cholesterol Vitamin B12 Folate TSH Urine Color Urine Appearance Urine pH Ur Specific [place] Urine Protein Urine Glucose (UA) Urine Ketones Urine Blood Urine Nitrite Ur Leukocyte Esterase Urine RBC Urine WBC Ur Squamous Epith Cells Urine Bacteria Hyaline Casts Granular Casts Urine Yeast Stool Occult Blood Stl C. cayetanensis PCR Stool Rotavirus A PCR Stl Adenov F 40/41 PCR Stool Astrovirus (PCR) Stool Campylobacter PCR Stool Cryptosporidium PCR Stl Sh Tox Pr E STEC PCR Stool E coli O157 PCR Stl Enterotoxigenic E PCR Stool EPEC (PCR) Stool EAEC (PCR) Stl E. histolytica PCR Stool Giardia Lamblia PCR Stl P. shigelloides PCR Stool Salmonella PCR Stool Sapovirus (PCR) Stl Shigella/EIEC PCR St Y.enterocolitica PCR Stool Vibrio (PCR) Stl Vibrio cholerae PCR Stl Norovirus GI/GII PCR Valproic Acid C. difficile Tox B Gene C. difficile Toxin A&B C. difficile Interpret 12/03/23 12/03/23 12/03/23 16:05 16:31 17:30 WBC RBC Hgb Hct MCV MCH MCHC RDW Plt Count MPV Immature Gran % (Auto) Neut % (Auto) Lymph % (Auto) [place] % (Auto) Eos % (Auto) Baso % (Auto) Lymph # (Auto) [place] # (Auto) Eos # (Auto) Baso # (Auto) Abs Immat Gran (auto) Absolute Neuts (auto) Absolute Nucleated RBC Nucleated RBC % (auto) Sodium Potassium Chloride Carbon Dioxide Anion Gap BUN Creatinine Estim Creat Clear Calc Estimated GFR POC Glucose 217 H Random Glucose Fasting Glucose Estimat Average Glucose Hemoglobin A1c % Calcium Total Bilirubin Direct Bilirubin AST ALT Alkaline Phosphatase Ammonia Total Protein Albumin Triglycerides Cholesterol LDL Cholesterol, Calc HDL Cholesterol Vitamin B12 Folate TSH Urine Color Yellow Urine Appearance Cloudy Urine pH 5.5 Ur Specific [place] 1.020 Urine Protein 30 (1+) H Urine Glucose (UA) Negative Urine Ketones Negative Urine Blood Moderate (2+) H Urine Nitrite Negative Ur Leukocyte Esterase Moderate (2+) H Urine RBC >20 H Urine WBC >50 H Ur Squamous Epith Cells 3-5 Urine Bacteria 4+ Hyaline Casts >20 Granular Casts Present Urine Yeast Present Stool Occult Blood NEGATIVE Stl C. cayetanensis PCR Not Detected Stool Rotavirus A PCR Not Detected Stl Adenov F 40/41 PCR Not Detected Stool Astrovirus (PCR) Not Detected Stool Campylobacter PCR Not Detected Stool Cryptosporidium PCR Not Detected Stl Sh Tox Pr E STEC PCR Not Detected Stool E coli O157 PCR Not applicable Stl Enterotoxigenic E PCR Not Detected Stool EPEC (PCR) Not Detected Stool EAEC (PCR) Not Detected Stl E. histolytica PCR Not Detected Stool Giardia Lamblia PCR Not Detected Stl P. shigelloides PCR Not Detected Stool Salmonella PCR Not Detected Stool Sapovirus (PCR) Not Detected Stl Shigella/EIEC PCR Not Detected St Y.enterocolitica PCR Not Detected Stool Vibrio (PCR) Not Detected Stl Vibrio cholerae PCR Not Detected Stl Norovirus GI/GII PCR Not Detected Valproic Acid C. difficile Tox B Gene POSITIVE A* C. difficile Toxin A&B Positive A* C. difficile Interpret SEE NOTE 12/03/23 12/04/23 12/04/23 21:03 06:21 11:26 WBC RBC Hgb Hct MCV MCH MCHC RDW Plt Count MPV Immature Gran % (Auto) Neut % (Auto) Lymph % (Auto) [place] % (Auto) Eos % (Auto) Baso % (Auto) Lymph # (Auto) [place] # (Auto) Eos # (Auto) Baso # (Auto) Abs Immat Gran (auto) Absolute Neuts (auto) Absolute Nucleated RBC Nucleated RBC % (auto) Sodium Potassium Chloride Carbon Dioxide Anion Gap BUN Creatinine Estim Creat Clear Calc Estimated GFR POC Glucose 207 H 176 H 210 H Random Glucose Fasting Glucose Estimat Average Glucose Hemoglobin A1c % Calcium Total Bilirubin Direct Bilirubin AST ALT Alkaline Phosphatase Ammonia Total Protein Albumin Triglycerides Cholesterol LDL Cholesterol, Calc HDL Cholesterol Vitamin B12 Folate TSH Urine Color Urine Appearance Urine pH Ur Specific [place] Urine Protein Urine Glucose (UA) Urine Ketones Urine Blood Urine Nitrite Ur Leukocyte Esterase Urine RBC Urine WBC Ur Squamous Epith Cells Urine Bacteria Hyaline Casts Granular Casts Urine Yeast Stool Occult Blood Stl C. cayetanensis PCR Stool Rotavirus A PCR Stl Adenov F PCR Stool Astrovirus (PCR) Stool Campylobacter PCR Stool Cryptosporidium PCR Stl Sh Tox Pr E STEC PCR Stool E coli O157 PCR Stl Enterotoxigenic E PCR Stool EPEC (PCR) Stool EAEC (PCR) Stl E. histolytica PCR Stool Giardia Lamblia PCR Stl P. shigelloides PCR Stool Salmonella PCR Stool Sapovirus (PCR) Stl Shigella/EIEC PCR St Y.enterocolitica PCR Stool Vibrio (PCR) Stl Vibrio cholerae PCR Stl Norovirus GI/GII PCR Valproic Acid C. difficile Tox B Gene C. difficile Toxin A&B C. difficile Interpret 12/04/23 12/04/23 12/05/23 16:34 20:17 06:35 WBC RBC Hgb Hct MCV MCH MCHC RDW Plt Count MPV Immature Gran % (Auto) Neut % (Auto) Lymph % (Auto) [place] % (Auto) Eos % (Auto) Baso % (Auto) Lymph # (Auto) [place] # (Auto) Eos # (Auto) Baso # (Auto) Abs Immat Gran (auto) Absolute Neuts (auto) Absolute Nucleated RBC Nucleated RBC % (auto) Sodium Potassium Chloride Carbon Dioxide Anion Gap BUN Creatinine Estim Creat Clear Calc Estimated GFR POC Glucose 176 H 154 H 146 H Random Glucose Fasting Glucose Estimat Average Glucose Hemoglobin A1c % Calcium Total Bilirubin Direct Bilirubin AST ALT Alkaline Phosphatase Ammonia Total Protein Albumin Triglycerides Cholesterol LDL Cholesterol, Calc HDL Cholesterol Vitamin B12 Folate TSH Urine Color Urine Appearance Urine pH Ur Specific [place] Urine Protein Urine Glucose (UA) Urine Ketones Urine Blood Urine Nitrite Ur Leukocyte Esterase Urine RBC Urine WBC Ur Squamous Epith Cells Urine Bacteria Hyaline Casts Granular Casts Urine Yeast Stool Occult Blood Stl C. cayetanensis PCR Stool Rotavirus A PCR Stl Adenov F PCR Stool Astrovirus (PCR) Stool Campylobacter PCR Stool Cryptosporidium PCR Stl Sh Tox Pr E STEC PCR Stool E coli O157 PCR Stl Enterotoxigenic E PCR Stool EPEC (PCR) Stool EAEC (PCR) Stl E. histolytica PCR Stool Giardia Lamblia PCR Stl P. shigelloides PCR Stool Salmonella PCR Stool Sapovirus (PCR) Stl Shigella/EIEC PCR St Y.enterocolitica PCR Stool Vibrio (PCR) Stl Vibrio cholerae PCR Stl Norovirus GI/GII PCR Valproic Acid C. difficile Tox B Gene C. difficile Toxin A&B C. difficile Interpret 12/05/23 12/05/23 12/05/23 11:08 16:36 20:27 WBC RBC Hgb Hct MCV MCH MCHC RDW Plt Count MPV Immature Gran % (Auto) Neut % (Auto) Lymph % (Auto) [place] % (Auto) Eos % (Auto) Baso % (Auto) Lymph # (Auto) [place] # (Auto) Eos # (Auto) Baso # (Auto) Abs Immat Gran (auto) Absolute Neuts (auto) Absolute Nucleated RBC Nucleated RBC % (auto) Sodium Potassium Chloride Carbon Dioxide Anion Gap BUN Creatinine Estim Creat Clear Calc Estimated GFR POC Glucose 164 H 162 H 198 H Random Glucose Fasting Glucose Estimat Average Glucose Hemoglobin A1c % Calcium Total Bilirubin Direct Bilirubin AST ALT Alkaline Phosphatase Ammonia Total Protein Albumin Triglycerides Cholesterol LDL Cholesterol, Calc HDL Cholesterol Vitamin B12 Folate TSH Urine Color Urine Appearance Urine pH Ur Specific [place] Urine Protein Urine Glucose (UA) Urine Ketones Urine Blood Urine Nitrite Ur Leukocyte Esterase Urine RBC Urine WBC Ur Squamous Epith Cells Urine Bacteria Hyaline Casts Granular Casts Urine Yeast Stool Occult Blood Stl C. cayetanensis PCR Stool Rotavirus A PCR Stl Adenov F 40/41 PCR Stool Astrovirus (PCR) Stool Campylobacter PCR Stool Cryptosporidium PCR Stl Sh Tox Pr E STEC PCR Stool E coli O157 PCR Stl Enterotoxigenic E PCR Stool EPEC (PCR) Stool EAEC (PCR) Stl E. histolytica PCR Stool Giardia Lamblia PCR Stl P. shigelloides PCR Stool Salmonella PCR Stool Sapovirus (PCR) Stl Shigella/EIEC PCR St Y.enterocolitica PCR Stool Vibrio (PCR) Stl Vibrio cholerae PCR Stl Norovirus GI/GII PCR Valproic Acid C. difficile Tox B Gene C. difficile Toxin A&B C. difficile Interpret 12/06/23 12/06/23 12/06/23 06:22 07:57 11:30 WBC RBC Hgb Hct MCV MCH MCHC RDW Plt Count MPV Immature Gran % (Auto) Neut % (Auto) Lymph % (Auto) [place] % (Auto) Eos % (Auto) Baso % (Auto) Lymph # (Auto) [place] # (Auto) Eos # (Auto) Baso # (Auto) Abs Immat Gran (auto) Absolute Neuts (auto) Absolute Nucleated RBC Nucleated RBC % (auto) Sodium 142 Potassium 4.5 Chloride 103 Carbon Dioxide 30 H Anion Gap 14 BUN 32 H Creatinine 0.88 Estim Creat Clear Calc 37.7 Estimated GFR > 60 POC Glucose 122 H 135 H Random Glucose Fasting Glucose 137 H Estimat Average Glucose Hemoglobin A1c % Calcium 10.7 H Total Bilirubin 0.5 Direct Bilirubin AST 24 ALT 15 Alkaline Phosphatase 97 Ammonia Total Protein 9.2 H Albumin 3.6 Triglycerides Cholesterol LDL Cholesterol, Calc HDL Cholesterol Vitamin B12 1504 H Folate 14.9 TSH 2.88 Urine Color Urine Appearance Urine pH Ur Specific [place] Urine Protein Urine Glucose (UA) Urine Ketones Urine Blood Urine Nitrite Ur Leukocyte Esterase Urine RBC Urine WBC Ur Squamous Epith Cells Urine Bacteria Hyaline Casts Granular Casts Urine Yeast Stool Occult Blood Stl C. cayetanensis PCR Stool Rotavirus A PCR Stl Adenov F 40/41 PCR Stool Astrovirus (PCR) Stool Campylobacter PCR Stool Cryptosporidium PCR Stl Sh Tox Pr E STEC PCR Stool E coli O157 PCR Stl Enterotoxigenic E PCR Stool EPEC (PCR) Stool EAEC (PCR) Stl E. histolytica PCR Stool Giardia Lamblia PCR Stl P. shigelloides PCR Stool Salmonella PCR Stool Sapovirus (PCR) Stl Shigella/EIEC PCR St Y.enterocolitica PCR Stool Vibrio (PCR) Stl Vibrio cholerae PCR Stl Norovirus GI/GII PCR Valproic Acid C. difficile Tox B Gene C. difficile Toxin A&B C. difficile Interpret 12/06/23 12/06/23 12/07/23 16:30 19:51 06:57 WBC RBC Hgb Hct MCV MCH MCHC RDW Plt Count MPV Immature Gran % (Auto) Neut % (Auto) Lymph % (Auto) [place] % (Auto) Eos % (Auto) Baso % (Auto) Lymph # (Auto) [place] # (Auto) Eos # (Auto) Baso # (Auto) Abs Immat Gran (auto) Absolute Neuts (auto) Absolute Nucleated RBC Nucleated RBC % (auto) Sodium Potassium Chloride Carbon Dioxide Anion Gap BUN Creatinine Estim Creat Clear Calc Estimated GFR POC Glucose 173 H 208 H 151 H Random Glucose Fasting Glucose Estimat Average Glucose Hemoglobin A1c % Calcium Total Bilirubin Direct Bilirubin AST ALT Alkaline Phosphatase Ammonia Total Protein Albumin Triglycerides Cholesterol LDL Cholesterol, Calc HDL Cholesterol Vitamin B12 Folate TSH Urine Color Urine Appearance Urine pH Ur Specific [place] Urine Protein Urine Glucose (UA) Urine Ketones Urine Blood Urine Nitrite Ur Leukocyte Esterase Urine RBC Urine WBC Ur Squamous Epith Cells Urine Bacteria Hyaline Casts Granular Casts Urine Yeast Stool Occult Blood Stl C. cayetanensis PCR Stool Rotavirus A PCR Stl Adenov F PCR Stool Astrovirus (PCR) Stool Campylobacter PCR Stool Cryptosporidium PCR Stl Sh Tox Pr E STEC PCR Stool E coli O157 PCR Stl Enterotoxigenic E PCR Stool EPEC (PCR) Stool EAEC (PCR) Stl E. histolytica PCR Stool Giardia Lamblia PCR Stl P. shigelloides PCR Stool Salmonella PCR Stool Sapovirus (PCR) Stl Shigella/EIEC PCR St Y.enterocolitica PCR Stool Vibrio (PCR) Stl Vibrio cholerae PCR Stl Norovirus GI/GII PCR Valproic Acid C. difficile Tox B Gene C. difficile Toxin A&B C. difficile Interpret 12/07/23 12/07/23 12/07/23 11:09 16:11 19:32 WBC RBC Hgb Hct MCV MCH MCHC RDW Plt Count MPV Immature Gran % (Auto) Neut % (Auto) Lymph % (Auto) [place] % (Auto) Eos % (Auto) Baso % (Auto) Lymph # (Auto) [place] # (Auto) Eos # (Auto) Baso # (Auto) Abs Immat Gran (auto) Absolute Neuts (auto) Absolute Nucleated RBC Nucleated RBC % (auto) Sodium Potassium Chloride Carbon Dioxide Anion Gap BUN Creatinine Estim Creat Clear Calc Estimated GFR POC Glucose 167 H 154 H 225 H Random Glucose Fasting Glucose Estimat Average Glucose Hemoglobin A1c % Calcium Total Bilirubin Direct Bilirubin AST ALT Alkaline Phosphatase Ammonia Total Protein Albumin Triglycerides Cholesterol LDL Cholesterol, Calc HDL Cholesterol Vitamin B12 Folate TSH Urine Color Urine Appearance Urine pH Ur Specific [place] Urine Protein Urine Glucose (UA) Urine Ketones Urine Blood Urine Nitrite Ur Leukocyte Esterase Urine RBC Urine WBC Ur Squamous Epith Cells Urine Bacteria Hyaline Casts Granular Casts Urine Yeast Stool Occult Blood Stl C. cayetanensis PCR Stool Rotavirus A PCR Stl Adenov F PCR Stool Astrovirus (PCR) Stool Campylobacter PCR Stool Cryptosporidium PCR Stl Sh Tox Pr E STEC PCR Stool E coli O157 PCR Stl Enterotoxigenic E PCR Stool EPEC (PCR) Stool EAEC (PCR) Stl E. histolytica PCR Stool Giardia Lamblia PCR Stl P. shigelloides PCR Stool Salmonella PCR Stool Sapovirus (PCR) Stl Shigella/EIEC PCR St Y.enterocolitica PCR Stool Vibrio (PCR) Stl Vibrio cholerae PCR Stl Norovirus GI/GII PCR Valproic Acid C. difficile Tox B Gene C. difficile Toxin A&B C. difficile Interpret 12/08/23 12/08/23 12/08/23 06:23 11:15 16:29 WBC RBC Hgb Hct MCV MCH MCHC RDW Plt Count MPV Immature Gran % (Auto) Neut % (Auto) Lymph % (Auto) [place] % (Auto) Eos % (Auto) Baso % (Auto) Lymph # (Auto) [place] # (Auto) Eos # (Auto) Baso # (Auto) Abs Immat Gran (auto) Absolute Neuts (auto) Absolute Nucleated RBC Nucleated RBC % (auto) Sodium Potassium Chloride Carbon Dioxide Anion Gap BUN Creatinine Estim Creat Clear Calc Estimated GFR POC Glucose 150 H 171 H 131 H Random Glucose Fasting Glucose Estimat Average Glucose Hemoglobin A1c % Calcium Total Bilirubin Direct Bilirubin AST ALT Alkaline Phosphatase Ammonia Total Protein Albumin Triglycerides Cholesterol LDL Cholesterol, Calc HDL Cholesterol Vitamin B12 Folate TSH Urine Color Urine Appearance Urine pH Ur Specific [place] Urine Protein Urine Glucose (UA) Urine Ketones Urine Blood Urine Nitrite Ur Leukocyte Esterase Urine RBC Urine WBC Ur Squamous Epith Cells Urine Bacteria Hyaline Casts Granular Casts Urine Yeast Stool Occult Blood Stl C. cayetanensis PCR Stool Rotavirus A PCR Stl Adenov F 40/41 PCR Stool Astrovirus (PCR) Stool Campylobacter PCR Stool Cryptosporidium PCR Stl Sh Tox Pr E STEC PCR Stool E coli O157 PCR Stl Enterotoxigenic E PCR Stool EPEC (PCR) Stool EAEC (PCR) Stl E. histolytica PCR Stool Giardia Lamblia PCR Stl P. shigelloides PCR Stool Salmonella PCR Stool Sapovirus (PCR) Stl Shigella/EIEC PCR St Y.enterocolitica PCR Stool Vibrio (PCR) Stl Vibrio cholerae PCR Stl Norovirus GI/GII PCR Valproic Acid C. difficile Tox B Gene C. difficile Toxin A&B C. difficile Interpret 12/08/23 12/08/23 12/09/23 19:07 20:11 06:32 WBC 3.3 L RBC 3.73 L Hgb 10.3 L Hct 32.0 L MCV 85.8 MCH 27.6 MCHC 32.2 RDW 14.2 Plt Count 99 L MPV 10.0 Immature Gran % (Auto) 0.3 Neut % (Auto) 53.2 Lymph % (Auto) 29.7 [place] % (Auto) 15.3 H Eos % (Auto) 1.2 Baso % (Auto) 0.3 Lymph # (Auto) 1.0 L [place] # (Auto) 0.5 Eos # (Auto) 0.0 Baso # (Auto) 0.0 Abs Immat Gran (auto) 0.01 Absolute Neuts (auto) 1.8 L Absolute Nucleated RBC 0.000 Nucleated RBC % (auto) 0.0 Sodium 142 Potassium 4.2 Chloride 104 Carbon Dioxide 30 H Anion Gap 12 BUN 27 H Creatinine 0.82 Estim Creat Clear Calc 40.4 Estimated GFR > 60 POC Glucose 116 H 145 H Random Glucose 114 Fasting Glucose Estimat Average Glucose Hemoglobin A1c % Calcium 10.5 H Total Bilirubin 0.6 Direct Bilirubin AST 25 ALT 14 Alkaline Phosphatase 90 Ammonia Total Protein 8.6 H Albumin 3.4 L Triglycerides Cholesterol LDL Cholesterol, Calc HDL Cholesterol Vitamin B12 Folate TSH Urine Color Urine Appearance Urine pH Ur Specific [place] Urine Protein Urine Glucose (UA) Urine Ketones Urine Blood Urine Nitrite Ur Leukocyte Esterase Urine RBC Urine WBC Ur Squamous Epith Cells Urine Bacteria Hyaline Casts Granular Casts Urine Yeast Stool Occult Blood Stl C. cayetanensis PCR Stool Rotavirus A PCR Stl Adenov F PCR Stool Astrovirus (PCR) Stool Campylobacter PCR Stool Cryptosporidium PCR Stl Sh Tox Pr E STEC PCR Stool E coli O157 PCR Stl Enterotoxigenic E PCR Stool EPEC (PCR) Stool EAEC (PCR) Stl E. histolytica PCR Stool Giardia Lamblia PCR Stl P. shigelloides PCR Stool Salmonella PCR Stool Sapovirus (PCR) Stl Shigella/EIEC PCR St Y.enterocolitica PCR Stool Vibrio (PCR) Stl Vibrio cholerae PCR Stl Norovirus GI/GII PCR Valproic Acid C. difficile Tox B Gene C. difficile Toxin A&B C. difficile Interpret 12/09/23 12/09/23 12/09/23 09:57 11:34 16:28 WBC 2.8 L RBC 3.68 L Hgb 10.1 L Hct 32.1 L MCV 87.2 MCH 27.4 MCHC 31.5 RDW 14.4 Plt Count 86 L MPV 9.6 Immature Gran % (Auto) 0.0 Neut % (Auto) 56.4 Lymph % (Auto) 29.1 [place] % (Auto) 12.4 H Eos % (Auto) 1.4 Baso % (Auto) 0.7 Lymph # (Auto) 0.8 L [place] # (Auto) 0.4 Eos # (Auto) 0.0 Baso # (Auto) 0.0 Abs Immat Gran (auto) 0.00 Absolute Neuts (auto) 1.6 L Absolute Nucleated RBC 0.000 Nucleated RBC % (auto) 0.0 Sodium 140 Potassium 4.7 Chloride 103 Carbon Dioxide 30 H Anion Gap 12 BUN 30 H Creatinine 0.99 Estim Creat Clear Calc 33.4 Estimated GFR 55 POC Glucose 201 H 143 H Random Glucose 279 H Fasting Glucose Estimat Average Glucose Hemoglobin A1c % Calcium 10.4 H Total Bilirubin 0.4 Direct Bilirubin 0.2 AST 30 ALT 16 Alkaline Phosphatase 96 Ammonia Total Protein 8.4 H Albumin 3.3 L Triglycerides Cholesterol LDL Cholesterol, Calc HDL Cholesterol Vitamin B12 Folate TSH Urine Color Urine Appearance Urine pH Ur Specific [place] Urine Protein Urine Glucose (UA) Urine Ketones Urine Blood Urine Nitrite Ur Leukocyte Esterase Urine RBC Urine WBC Ur Squamous Epith Cells Urine Bacteria Hyaline Casts Granular Casts Urine Yeast Stool Occult Blood Stl C. cayetanensis PCR Stool Rotavirus A PCR Stl Adenov F 40/41 PCR Stool Astrovirus (PCR) Stool Campylobacter PCR Stool Cryptosporidium PCR Stl Sh Tox Pr E STEC PCR Stool E coli O157 PCR Stl Enterotoxigenic E PCR Stool EPEC (PCR) Stool EAEC (PCR) Stl E. histolytica PCR Stool Giardia Lamblia PCR Stl P. shigelloides PCR Stool Salmonella PCR Stool Sapovirus (PCR) Stl Shigella/EIEC PCR St Y.enterocolitica PCR Stool Vibrio (PCR) Stl Vibrio cholerae PCR Stl Norovirus GI/GII PCR Valproic Acid C. difficile Tox B Gene C. difficile Toxin A&B C. difficile Interpret 12/09/23 12/10/23 12/10/23 19:52 06:12 08:25 WBC RBC Hgb Hct MCV MCH MCHC RDW Plt Count MPV Immature Gran % (Auto) Neut % (Auto) Lymph % (Auto) [place] % (Auto) Eos % (Auto) Baso % (Auto) Lymph # (Auto) [place] # (Auto) Eos # (Auto) Baso # (Auto) Abs Immat Gran (auto) Absolute Neuts (auto) Absolute Nucleated RBC Nucleated RBC % (auto) Sodium Potassium Chloride Carbon Dioxide Anion Gap BUN Creatinine Estim Creat Clear Calc Estimated GFR POC Glucose 205 H 124 H 146 H Random Glucose Fasting Glucose Estimat Average Glucose Hemoglobin A1c % Calcium Total Bilirubin Direct Bilirubin AST ALT Alkaline Phosphatase Ammonia Total Protein Albumin Triglycerides Cholesterol LDL Cholesterol, Calc HDL Cholesterol Vitamin B12 Folate TSH Urine Color Urine Appearance Urine pH Ur Specific [place] Urine Protein Urine Glucose (UA) Urine Ketones Urine Blood Urine Nitrite Ur Leukocyte Esterase Urine RBC Urine WBC Ur Squamous Epith Cells Urine Bacteria Hyaline Casts Granular Casts Urine Yeast Stool Occult Blood Stl C. cayetanensis PCR Stool Rotavirus A PCR Stl Adenov F 40/41 PCR Stool Astrovirus (PCR) Stool Campylobacter PCR Stool Cryptosporidium PCR Stl Sh Tox Pr E STEC PCR Stool E coli O157 PCR Stl Enterotoxigenic E PCR Stool EPEC (PCR) Stool EAEC (PCR) Stl E. histolytica PCR Stool Giardia Lamblia PCR Stl P. shigelloides PCR Stool Salmonella PCR Stool Sapovirus (PCR) Stl Shigella/EIEC PCR St Y.enterocolitica PCR Stool Vibrio (PCR) Stl Vibrio cholerae PCR Stl Norovirus GI/GII PCR Valproic Acid C. difficile Tox B Gene C. difficile Toxin A&B C. difficile Interpret 12/10/23 12/10/23 12/10/23 11:53 16:42 20:01 WBC RBC Hgb Hct MCV MCH MCHC RDW Plt Count MPV Immature Gran % (Auto) Neut % (Auto) Lymph % (Auto) [place] % (Auto) Eos % (Auto) Baso % (Auto) Lymph # (Auto) [place] # (Auto) Eos # (Auto) Baso # (Auto) Abs Immat Gran (auto) Absolute Neuts (auto) Absolute Nucleated RBC Nucleated RBC % (auto) Sodium Potassium Chloride Carbon Dioxide Anion Gap BUN Creatinine Estim Creat Clear Calc Estimated GFR POC Glucose 185 H 164 H 139 H Random Glucose Fasting Glucose Estimat Average Glucose Hemoglobin A1c % Calcium Total Bilirubin Direct Bilirubin AST ALT Alkaline Phosphatase Ammonia Total Protein Albumin Triglycerides Cholesterol LDL Cholesterol, Calc HDL Cholesterol Vitamin B12 Folate TSH Urine Color Urine Appearance Urine pH Ur Specific [place] Urine Protein Urine Glucose (UA) Urine Ketones Urine Blood Urine Nitrite Ur Leukocyte Esterase Urine RBC Urine WBC Ur Squamous Epith Cells Urine Bacteria Hyaline Casts Granular Casts Urine Yeast Stool Occult Blood Stl C. cayetanensis PCR Stool Rotavirus A PCR Stl Adenov F PCR Stool Astrovirus (PCR) Stool Campylobacter PCR Stool Cryptosporidium PCR Stl Sh Tox Pr E STEC PCR Stool E coli O157 PCR Stl Enterotoxigenic E PCR Stool EPEC (PCR) Stool EAEC (PCR) Stl E. histolytica PCR Stool Giardia Lamblia PCR Stl P. shigelloides PCR Stool Salmonella PCR Stool Sapovirus (PCR) Stl Shigella/EIEC PCR St Y.enterocolitica PCR Stool Vibrio (PCR) Stl Vibrio cholerae PCR Stl Norovirus GI/GII PCR Valproic Acid C. difficile Tox B Gene C. difficile Toxin A&B C. difficile Interpret 12/11/23 12/11/23 12/11/23 06:00 11:58 16:39 WBC RBC Hgb Hct MCV MCH MCHC RDW Plt Count MPV Immature Gran % (Auto) Neut % (Auto) Lymph % (Auto) [place] % (Auto) Eos % (Auto) Baso % (Auto) Lymph # (Auto) [place] # (Auto) Eos # (Auto) Baso # (Auto) Abs Immat Gran (auto) Absolute Neuts (auto) Absolute Nucleated RBC Nucleated RBC % (auto) Sodium Potassium Chloride Carbon Dioxide Anion Gap BUN Creatinine Estim Creat Clear Calc Estimated GFR POC Glucose 151 H 158 H 134 H Random Glucose Fasting Glucose Estimat Average Glucose Hemoglobin A1c % Calcium Total Bilirubin Direct Bilirubin AST ALT Alkaline Phosphatase Ammonia Total Protein Albumin Triglycerides Cholesterol LDL Cholesterol, Calc HDL Cholesterol Vitamin B12 Folate TSH Urine Color Urine Appearance Urine pH Ur Specific [place] Urine Protein Urine Glucose (UA) Urine Ketones Urine Blood Urine Nitrite Ur Leukocyte Esterase Urine RBC Urine WBC Ur Squamous Epith Cells Urine Bacteria Hyaline Casts Granular Casts Urine Yeast Stool Occult Blood Stl C. cayetanensis PCR Stool Rotavirus A PCR Stl Adenov F PCR Stool Astrovirus (PCR) Stool Campylobacter PCR Stool Cryptosporidium PCR Stl Sh Tox Pr E STEC PCR Stool E coli O157 PCR Stl Enterotoxigenic E PCR Stool EPEC (PCR) Stool EAEC (PCR) Stl E. histolytica PCR Stool Giardia Lamblia PCR Stl P. shigelloides PCR Stool Salmonella PCR Stool Sapovirus (PCR) Stl Shigella/EIEC PCR St Y.enterocolitica PCR Stool Vibrio (PCR) Stl Vibrio cholerae PCR Stl Norovirus GI/GII PCR Valproic Acid C. difficile Tox B Gene C. difficile Toxin A&B C. difficile Interpret 12/11/23 12/12/23 12/12/23 19:50 06:41 11:33 WBC RBC Hgb Hct MCV MCH MCHC RDW Plt Count MPV Immature Gran % (Auto) Neut % (Auto) Lymph % (Auto) [place] % (Auto) Eos % (Auto) Baso % (Auto) Lymph # (Auto) [place] # (Auto) Eos # (Auto) Baso # (Auto) Abs Immat Gran (auto) Absolute Neuts (auto) Absolute Nucleated RBC Nucleated RBC % (auto) Sodium Potassium Chloride Carbon Dioxide Anion Gap BUN Creatinine Estim Creat Clear Calc Estimated GFR POC Glucose 136 H 149 H 230 H Random Glucose Fasting Glucose Estimat Average Glucose Hemoglobin A1c % Calcium Total Bilirubin Direct Bilirubin AST ALT Alkaline Phosphatase Ammonia Total Protein Albumin Triglycerides Cholesterol LDL Cholesterol, Calc HDL Cholesterol Vitamin B12 Folate TSH Urine Color Urine Appearance Urine pH Ur Specific [place] Urine Protein Urine Glucose (UA) Urine Ketones Urine Blood Urine Nitrite Ur Leukocyte Esterase Urine RBC Urine WBC Ur Squamous Epith Cells Urine Bacteria Hyaline Casts Granular Casts Urine Yeast Stool Occult Blood Stl C. cayetanensis PCR Stool Rotavirus A PCR Stl Adenov F 40/41 PCR Stool Astrovirus (PCR) Stool Campylobacter PCR Stool Cryptosporidium PCR Stl Sh Tox Pr E STEC PCR Stool E coli O157 PCR Stl Enterotoxigenic E PCR Stool EPEC (PCR) Stool EAEC (PCR) Stl E. histolytica PCR Stool Giardia Lamblia PCR Stl P. shigelloides PCR Stool Salmonella PCR Stool Sapovirus (PCR) Stl Shigella/EIEC PCR St Y.enterocolitica PCR Stool Vibrio (PCR) Stl Vibrio cholerae PCR Stl Norovirus GI/GII PCR Valproic Acid C. difficile Tox B Gene C. difficile Toxin A&B C. difficile Interpret 12/12/23 12/12/23 12/13/23 16:28 20:34 06:19 WBC RBC Hgb Hct MCV MCH MCHC RDW Plt Count MPV Immature Gran % (Auto) Neut % (Auto) Lymph % (Auto) [place] % (Auto) Eos % (Auto) Baso % (Auto) Lymph # (Auto) [place] # (Auto) Eos # (Auto) Baso # (Auto) Abs Immat Gran (auto) Absolute Neuts (auto) Absolute Nucleated RBC Nucleated RBC % (auto) Sodium Potassium Chloride Carbon Dioxide Anion Gap BUN Creatinine Estim Creat Clear Calc Estimated GFR POC Glucose 256 H 194 H 165 H Random Glucose Fasting Glucose Estimat Average Glucose Hemoglobin A1c % Calcium Total Bilirubin Direct Bilirubin AST ALT Alkaline Phosphatase Ammonia Total Protein Albumin Triglycerides Cholesterol LDL Cholesterol, Calc HDL Cholesterol Vitamin B12 Folate TSH Urine Color Urine Appearance Urine pH Ur Specific [place] Urine Protein Urine Glucose (UA) Urine Ketones Urine Blood Urine Nitrite Ur Leukocyte Esterase Urine RBC Urine WBC Ur Squamous Epith Cells Urine Bacteria Hyaline Casts Granular Casts Urine Yeast Stool Occult Blood Stl C. cayetanensis PCR Stool Rotavirus A PCR Stl Adenov F 40/41 PCR Stool Astrovirus (PCR) Stool Campylobacter PCR Stool Cryptosporidium PCR Stl Sh Tox Pr E STEC PCR Stool E coli O157 PCR Stl Enterotoxigenic E PCR Stool EPEC (PCR) Stool EAEC (PCR) Stl E. histolytica PCR Stool Giardia Lamblia PCR Stl P. shigelloides PCR Stool Salmonella PCR Stool Sapovirus (PCR) Stl Shigella/EIEC PCR St Y.enterocolitica PCR Stool Vibrio (PCR) Stl Vibrio cholerae PCR Stl Norovirus GI/GII PCR Valproic Acid C. difficile Tox B Gene C. difficile Toxin A&B C. difficile Interpret 12/13/23 12/13/23 12/13/23 11:02 16:26 19:57 WBC RBC Hgb Hct MCV MCH MCHC RDW Plt Count MPV Immature Gran % (Auto) Neut % (Auto) Lymph % (Auto) [place] % (Auto) Eos % (Auto) Baso % (Auto) Lymph # (Auto) [place] # (Auto) Eos # (Auto) Baso # (Auto) Abs Immat Gran (auto) Absolute Neuts (auto) Absolute Nucleated RBC Nucleated RBC % (auto) Sodium Potassium Chloride Carbon Dioxide Anion Gap BUN Creatinine Estim Creat Clear Calc Estimated GFR POC Glucose 248 H 247 H 179 H Random Glucose Fasting Glucose Estimat Average Glucose Hemoglobin A1c % Calcium Total Bilirubin Direct Bilirubin AST ALT Alkaline Phosphatase Ammonia Total Protein Albumin Triglycerides Cholesterol LDL Cholesterol, Calc HDL Cholesterol Vitamin B12 Folate TSH Urine Color Urine Appearance Urine pH Ur Specific [place] Urine Protein Urine Glucose (UA) Urine Ketones Urine Blood Urine Nitrite Ur Leukocyte Esterase Urine RBC Urine WBC Ur Squamous Epith Cells Urine Bacteria Hyaline Casts Granular Casts Urine Yeast Stool Occult Blood Stl C. cayetanensis PCR Stool Rotavirus A PCR Stl Adenov F PCR Stool Astrovirus (PCR) Stool Campylobacter PCR Stool Cryptosporidium PCR Stl Sh Tox Pr E STEC PCR Stool E coli O157 PCR Stl Enterotoxigenic E PCR Stool EPEC (PCR) Stool EAEC (PCR) Stl E. histolytica PCR Stool Giardia Lamblia PCR Stl P. shigelloides PCR Stool Salmonella PCR Stool Sapovirus (PCR) Stl Shigella/EIEC PCR St Y.enterocolitica PCR Stool Vibrio (PCR) Stl Vibrio cholerae PCR Stl Norovirus GI/GII PCR Valproic Acid C. difficile Tox B Gene C. difficile Toxin A&B C. difficile Interpret 12/14/23 12/14/23 12/14/23 06:32 07:37 11:48 WBC RBC Hgb Hct MCV MCH MCHC RDW Plt Count MPV Immature Gran % (Auto) Neut % (Auto) Lymph % (Auto) [place] % (Auto) Eos % (Auto) Baso % (Auto) Lymph # (Auto) [place] # (Auto) Eos # (Auto) Baso # (Auto) Abs Immat Gran (auto) Absolute Neuts (auto) Absolute Nucleated RBC Nucleated RBC % (auto) Sodium 139 Potassium 4.2 Chloride 103 Carbon Dioxide 28 Anion Gap 12 BUN 25 H Creatinine 0.84 Estim Creat Clear Calc 39.4 Estimated GFR > 60 POC Glucose 120 H 158 H Random Glucose Fasting Glucose 135 H Estimat Average Glucose Hemoglobin A1c % Calcium 10.0 Total Bilirubin 0.6 Direct Bilirubin AST 43 H ALT 23 Alkaline Phosphatase 101 Ammonia Total Protein 8.0 Albumin 3.0 L Triglycerides Cholesterol LDL Cholesterol, Calc HDL Cholesterol Vitamin B12 Folate TSH Urine Color Urine Appearance Urine pH Ur Specific [place] Urine Protein Urine Glucose (UA) Urine Ketones Urine Blood Urine Nitrite Ur Leukocyte Esterase Urine RBC Urine WBC Ur Squamous Epith Cells Urine Bacteria Hyaline Casts Granular Casts Urine Yeast Stool Occult Blood Stl C. cayetanensis PCR Stool Rotavirus A PCR Stl Adenov F PCR Stool Astrovirus (PCR) Stool Campylobacter PCR Stool Cryptosporidium PCR Stl Sh Tox Pr E STEC PCR Stool E coli O157 PCR Stl Enterotoxigenic E PCR Stool EPEC (PCR) Stool EAEC (PCR) Stl E. histolytica PCR Stool Giardia Lamblia PCR Stl P. shigelloides PCR Stool Salmonella PCR Stool Sapovirus (PCR) Stl Shigella/EIEC PCR St Y.enterocolitica PCR Stool Vibrio (PCR) Stl Vibrio cholerae PCR Stl Norovirus GI/GII PCR Valproic Acid C. difficile Tox B Gene C. difficile Toxin A&B C. difficile Interpret 12/14/23 12/14/23 12/15/23 16:05 19:57 06:34 WBC RBC Hgb Hct MCV MCH MCHC RDW Plt Count MPV Immature Gran % (Auto) Neut % (Auto) Lymph % (Auto) [place] % (Auto) Eos % (Auto) Baso % (Auto) Lymph # (Auto) [place] # (Auto) Eos # (Auto) Baso # (Auto) Abs Immat Gran (auto) Absolute Neuts (auto) Absolute Nucleated RBC Nucleated RBC % (auto) Sodium Potassium Chloride Carbon Dioxide Anion Gap BUN Creatinine Estim Creat Clear Calc Estimated GFR POC Glucose 128 H 248 H 92 Random Glucose Fasting Glucose Estimat Average Glucose Hemoglobin A1c % Calcium Total Bilirubin Direct Bilirubin AST ALT Alkaline Phosphatase Ammonia Total Protein Albumin Triglycerides Cholesterol LDL Cholesterol, Calc HDL Cholesterol Vitamin B12 Folate TSH Urine Color Urine Appearance Urine pH Ur Specific [place] Urine Protein Urine Glucose (UA) Urine Ketones Urine Blood Urine Nitrite Ur Leukocyte Esterase Urine RBC Urine WBC Ur Squamous Epith Cells Urine Bacteria Hyaline Casts Granular Casts Urine Yeast Stool Occult Blood Stl C. cayetanensis PCR Stool Rotavirus A PCR Stl Adenov F 40/41 PCR Stool Astrovirus (PCR) Stool Campylobacter PCR Stool Cryptosporidium PCR Stl Sh Tox Pr E STEC PCR Stool E coli O157 PCR Stl Enterotoxigenic E PCR Stool EPEC (PCR) Stool EAEC (PCR) Stl E. histolytica PCR Stool Giardia Lamblia PCR Stl P. shigelloides PCR Stool Salmonella PCR Stool Sapovirus (PCR) Stl Shigella/EIEC PCR St Y.enterocolitica PCR Stool Vibrio (PCR) Stl Vibrio cholerae PCR Stl Norovirus GI/GII PCR Valproic Acid C. difficile Tox B Gene C. difficile Toxin A&B C. difficile Interpret 12/15/23 12/15/23 12/15/23 11:20 16:06 20:24 WBC RBC Hgb Hct MCV MCH MCHC RDW Plt Count MPV Immature Gran % (Auto) Neut % (Auto) Lymph % (Auto) [place] % (Auto) Eos % (Auto) Baso % (Auto) Lymph # (Auto) [place] # (Auto) Eos # (Auto) Baso # (Auto) Abs Immat Gran (auto) Absolute Neuts (auto) Absolute Nucleated RBC Nucleated RBC % (auto) Sodium Potassium Chloride Carbon Dioxide Anion Gap BUN Creatinine Estim Creat Clear Calc Estimated GFR POC Glucose 295 H 142 H 230 H Random Glucose Fasting Glucose Estimat Average Glucose Hemoglobin A1c % Calcium Total Bilirubin Direct Bilirubin AST ALT Alkaline Phosphatase Ammonia Total Protein Albumin Triglycerides Cholesterol LDL Cholesterol, Calc HDL Cholesterol Vitamin B12 Folate TSH Urine Color Urine Appearance Urine pH Ur Specific [place] Urine Protein Urine Glucose (UA) Urine Ketones Urine Blood Urine Nitrite Ur Leukocyte Esterase Urine RBC Urine WBC Ur Squamous Epith Cells Urine Bacteria Hyaline Casts Granular Casts Urine Yeast Stool Occult Blood Stl C. cayetanensis PCR Stool Rotavirus A PCR Stl Adenov F 40/41 PCR Stool Astrovirus (PCR) Stool Campylobacter PCR Stool Cryptosporidium PCR Stl Sh Tox Pr E STEC PCR Stool E coli O157 PCR Stl Enterotoxigenic E PCR Stool EPEC (PCR) Stool EAEC (PCR) Stl E. histolytica PCR Stool Giardia Lamblia PCR Stl P. shigelloides PCR Stool Salmonella PCR Stool Sapovirus (PCR) Stl Shigella/EIEC PCR St Y.enterocolitica PCR Stool Vibrio (PCR) Stl Vibrio cholerae PCR Stl Norovirus GI/GII PCR Valproic Acid C. difficile Tox B Gene C. difficile Toxin A&B C. difficile Interpret 12/16/23 12/16/23 12/16/23 06:30 11:13 16:19 WBC RBC Hgb Hct MCV MCH MCHC RDW Plt Count MPV Immature Gran % (Auto) Neut % (Auto) Lymph % (Auto) [place] % (Auto) Eos % (Auto) Baso % (Auto) Lymph # (Auto) [place] # (Auto) Eos # (Auto) Baso # (Auto) Abs Immat Gran (auto) Absolute Neuts (auto) Absolute Nucleated RBC Nucleated RBC % (auto) Sodium Potassium Chloride Carbon Dioxide Anion Gap BUN Creatinine Estim Creat Clear Calc Estimated GFR POC Glucose 90 136 H 186 H Random Glucose Fasting Glucose Estimat Average Glucose Hemoglobin A1c % Calcium Total Bilirubin Direct Bilirubin AST ALT Alkaline Phosphatase Ammonia Total Protein Albumin Triglycerides Cholesterol LDL Cholesterol, Calc HDL Cholesterol Vitamin B12 Folate TSH Urine Color Urine Appearance Urine pH Ur Specific [place] Urine Protein Urine Glucose (UA) Urine Ketones Urine Blood Urine Nitrite Ur Leukocyte Esterase Urine RBC Urine WBC Ur Squamous Epith Cells Urine Bacteria Hyaline Casts Granular Casts Urine Yeast Stool Occult Blood Stl C. cayetanensis PCR Stool Rotavirus A PCR Stl Adenov F PCR Stool Astrovirus (PCR) Stool Campylobacter PCR Stool Cryptosporidium PCR Stl Sh Tox Pr E STEC PCR Stool E coli O157 PCR Stl Enterotoxigenic E PCR Stool EPEC (PCR) Stool EAEC (PCR) Stl E. histolytica PCR Stool Giardia Lamblia PCR Stl P. shigelloides PCR Stool Salmonella PCR Stool Sapovirus (PCR) Stl Shigella/EIEC PCR St Y.enterocolitica PCR Stool Vibrio (PCR) Stl Vibrio cholerae PCR Stl Norovirus GI/GII PCR Valproic Acid C. difficile Tox B Gene C. difficile Toxin A&B C. difficile Interpret 12/16/23 12/17/23 12/17/23 20:22 06:40 08:06 WBC RBC Hgb Hct MCV MCH MCHC RDW Plt Count MPV Immature Gran % (Auto) Neut % (Auto) Lymph % (Auto) [place] % (Auto) Eos % (Auto) Baso % (Auto) Lymph # (Auto) [place] # (Auto) Eos # (Auto) Baso # (Auto) Abs Immat Gran (auto) Absolute Neuts (auto) Absolute Nucleated RBC Nucleated RBC % (auto) Sodium Potassium Chloride Carbon Dioxide Anion Gap BUN Creatinine Estim Creat Clear Calc Estimated GFR POC Glucose 196 H 139 H Random Glucose Fasting Glucose Estimat Average Glucose Hemoglobin A1c % Calcium Total Bilirubin Direct Bilirubin AST ALT Alkaline Phosphatase Ammonia Total Protein Albumin Triglycerides Cholesterol LDL Cholesterol, Calc HDL Cholesterol Vitamin B12 Folate TSH Urine Color Urine Appearance Urine pH Ur Specific [place] Urine Protein Urine Glucose (UA) Urine Ketones Urine Blood Urine Nitrite Ur Leukocyte Esterase Urine RBC Urine WBC Ur Squamous Epith Cells Urine Bacteria Hyaline Casts Granular Casts Urine Yeast Stool Occult Blood Stl C. cayetanensis PCR Stool Rotavirus A PCR Stl Adenov PCR Stool Astrovirus (PCR) Stool Campylobacter PCR Stool Cryptosporidium PCR Stl Sh Tox Pr E STEC PCR Stool E coli O157 PCR Stl Enterotoxigenic E PCR Stool EPEC (PCR) Stool EAEC (PCR) Stl E. histolytica PCR Stool Giardia Lamblia PCR Stl P. shigelloides PCR Stool Salmonella PCR Stool Sapovirus (PCR) Stl Shigella/EIEC PCR St Y.enterocolitica PCR Stool Vibrio (PCR) Stl Vibrio cholerae PCR Stl Norovirus GI/GII PCR Valproic Acid 24.9 L C. difficile Tox B Gene C. difficile Toxin A&B C. difficile Interpret 12/17/23 12/17/23 12/18/23 11:34 19:59 06:40 WBC RBC Hgb Hct MCV MCH MCHC RDW Plt Count MPV Immature Gran % (Auto) Neut % (Auto) Lymph % (Auto) [place] % (Auto) Eos % (Auto) Baso % (Auto) Lymph # (Auto) [place] # (Auto) Eos # (Auto) Baso # (Auto) Abs Immat Gran (auto) Absolute Neuts (auto) Absolute Nucleated RBC Nucleated RBC % (auto) Sodium Potassium Chloride Carbon Dioxide Anion Gap BUN Creatinine Estim Creat Clear Calc Estimated GFR POC Glucose 194 H 207 H 146 H Random Glucose Fasting Glucose Estimat Average Glucose Hemoglobin A1c % Calcium Total Bilirubin Direct Bilirubin AST ALT Alkaline Phosphatase Ammonia Total Protein Albumin Triglycerides Cholesterol LDL Cholesterol, Calc HDL Cholesterol Vitamin B12 Folate TSH Urine Color Urine Appearance Urine pH Ur Specific [place] Urine Protein Urine Glucose (UA) Urine Ketones Urine Blood Urine Nitrite Ur Leukocyte Esterase Urine RBC Urine WBC Ur Squamous Epith Cells Urine Bacteria Hyaline Casts Granular Casts Urine Yeast Stool Occult Blood Stl C. cayetanensis PCR Stool Rotavirus A PCR Stl Adenov F 40/41 PCR Stool Astrovirus (PCR) Stool Campylobacter PCR Stool Cryptosporidium PCR Stl Sh Tox Pr E STEC PCR Stool E coli O157 PCR Stl Enterotoxigenic E PCR Stool EPEC (PCR) Stool EAEC (PCR) Stl E. histolytica PCR Stool Giardia Lamblia PCR Stl P. shigelloides PCR Stool Salmonella PCR Stool Sapovirus (PCR) Stl Shigella/EIEC PCR St Y.enterocolitica PCR Stool Vibrio (PCR) Stl Vibrio cholerae PCR Stl Norovirus GI/GII PCR Valproic Acid C. difficile Tox B Gene C. difficile Toxin A&B C. difficile Interpret 12/18/23 12/18/23 12/18/23 11:31 16:32 19:57 WBC RBC Hgb Hct MCV MCH MCHC RDW Plt Count MPV Immature Gran % (Auto) Neut % (Auto) Lymph % (Auto) [place] % (Auto) Eos % (Auto) Baso % (Auto) Lymph # (Auto) [place] # (Auto) Eos # (Auto) Baso # (Auto) Abs Immat Gran (auto) Absolute Neuts (auto) Absolute Nucleated RBC Nucleated RBC % (auto) Sodium Potassium Chloride Carbon Dioxide Anion Gap BUN Creatinine Estim Creat Clear Calc Estimated GFR POC Glucose 149 H 126 H 134 H Random Glucose Fasting Glucose Estimat Average Glucose Hemoglobin A1c % Calcium Total Bilirubin Direct Bilirubin AST ALT Alkaline Phosphatase Ammonia Total Protein Albumin Triglycerides Cholesterol LDL Cholesterol, Calc HDL Cholesterol Vitamin B12 Folate TSH Urine Color Urine Appearance Urine pH Ur Specific [place] Urine Protein Urine Glucose (UA) Urine Ketones Urine Blood Urine Nitrite Ur Leukocyte Esterase Urine RBC Urine WBC Ur Squamous Epith Cells Urine Bacteria Hyaline Casts Granular Casts Urine Yeast Stool Occult Blood Stl C. cayetanensis PCR Stool Rotavirus A PCR Stl Adenov F 40/41 PCR Stool Astrovirus (PCR) Stool Campylobacter PCR Stool Cryptosporidium PCR Stl Sh Tox Pr E STEC PCR Stool E coli O157 PCR Stl Enterotoxigenic E PCR Stool EPEC (PCR) Stool EAEC (PCR) Stl E. histolytica PCR Stool Giardia Lamblia PCR Stl P. shigelloides PCR Stool Salmonella PCR Stool Sapovirus (PCR) Stl Shigella/EIEC PCR St Y.enterocolitica PCR Stool Vibrio (PCR) Stl Vibrio cholerae PCR Stl Norovirus GI/GII PCR Valproic Acid C. difficile Tox B Gene C. difficile Toxin A&B C. difficile Interpret 12/19/23 12/19/23 12/19/23 06:12 11:04 16:05 WBC RBC Hgb Hct MCV MCH MCHC RDW Plt Count MPV Immature Gran % (Auto) Neut % (Auto) Lymph % (Auto) [place] % (Auto) Eos % (Auto) Baso % (Auto) Lymph # (Auto) [place] # (Auto) Eos # (Auto) Baso # (Auto) Abs Immat Gran (auto) Absolute Neuts (auto) Absolute Nucleated RBC Nucleated RBC % (auto) Sodium Potassium Chloride Carbon Dioxide Anion Gap BUN Creatinine Estim Creat Clear Calc Estimated GFR POC Glucose 123 H 116 H 121 H Random Glucose Fasting Glucose Estimat Average Glucose Hemoglobin A1c % Calcium Total Bilirubin Direct Bilirubin AST ALT Alkaline Phosphatase Ammonia Total Protein Albumin Triglycerides Cholesterol LDL Cholesterol, Calc HDL Cholesterol Vitamin B12 Folate TSH Urine Color Urine Appearance Urine pH Ur Specific [place] Urine Protein Urine Glucose (UA) Urine Ketones Urine Blood Urine Nitrite Ur Leukocyte Esterase Urine RBC Urine WBC Ur Squamous Epith Cells Urine Bacteria Hyaline Casts Granular Casts Urine Yeast Stool Occult Blood Stl C. cayetanensis PCR Stool Rotavirus A PCR Stl Adenov F PCR Stool Astrovirus (PCR) Stool Campylobacter PCR Stool Cryptosporidium PCR Stl Sh Tox Pr E STEC PCR Stool E coli O157 PCR Stl Enterotoxigenic E PCR Stool EPEC (PCR) Stool EAEC (PCR) Stl E. histolytica PCR Stool Giardia Lamblia PCR Stl P. shigelloides PCR Stool Salmonella PCR Stool Sapovirus (PCR) Stl Shigella/EIEC PCR St Y.enterocolitica PCR Stool Vibrio (PCR) Stl Vibrio cholerae PCR Stl Norovirus GI/GII PCR Valproic Acid C. difficile Tox B Gene C. difficile Toxin A&B C. difficile Interpret 12/19/23 12/20/23 12/20/23 19:35 06:05 11:29 WBC RBC Hgb Hct MCV MCH MCHC RDW Plt Count MPV Immature Gran % (Auto) Neut % (Auto) Lymph % (Auto) [place] % (Auto) Eos % (Auto) Baso % (Auto) Lymph # (Auto) [place] # (Auto) Eos # (Auto) Baso # (Auto) Abs Immat Gran (auto) Absolute Neuts (auto) Absolute Nucleated RBC Nucleated RBC % (auto) Sodium Potassium Chloride Carbon Dioxide Anion Gap BUN Creatinine Estim Creat Clear Calc Estimated GFR POC Glucose 275 H 111 192 H Random Glucose Fasting Glucose Estimat Average Glucose Hemoglobin A1c % Calcium Total Bilirubin Direct Bilirubin AST ALT Alkaline Phosphatase Ammonia Total Protein Albumin Triglycerides Cholesterol LDL Cholesterol, Calc HDL Cholesterol Vitamin B12 Folate TSH Urine Color Urine Appearance Urine pH Ur Specific [place] Urine Protein Urine Glucose (UA) Urine Ketones Urine Blood Urine Nitrite Ur Leukocyte Esterase Urine RBC Urine WBC Ur Squamous Epith Cells Urine Bacteria Hyaline Casts Granular Casts Urine Yeast Stool Occult Blood Stl C. cayetanensis PCR Stool Rotavirus A PCR Stl Adenov F PCR Stool Astrovirus (PCR) Stool Campylobacter PCR Stool Cryptosporidium PCR Stl Sh Tox Pr E STEC PCR Stool E coli O157 PCR Stl Enterotoxigenic E PCR Stool EPEC (PCR) Stool EAEC (PCR) Stl E. histolytica PCR Stool Giardia Lamblia PCR Stl P. shigelloides PCR Stool Salmonella PCR Stool Sapovirus (PCR) Stl Shigella/EIEC PCR St Y.enterocolitica PCR Stool Vibrio (PCR) Stl Vibrio cholerae PCR Stl Norovirus GI/GII PCR Valproic Acid C. difficile Tox B Gene C. difficile Toxin A&B C. difficile Interpret 12/20/23 12/20/23 12/21/23 16:28 21:00 06:42 WBC RBC Hgb Hct MCV MCH MCHC RDW Plt Count MPV Immature Gran % (Auto) Neut % (Auto) Lymph % (Auto) [place] % (Auto) Eos % (Auto) Baso % (Auto) Lymph # (Auto) [place] # (Auto) Eos # (Auto) Baso # (Auto) Abs Immat Gran (auto) Absolute Neuts (auto) Absolute Nucleated RBC Nucleated RBC % (auto) Sodium Potassium Chloride Carbon Dioxide Anion Gap BUN Creatinine Estim Creat Clear Calc Estimated GFR POC Glucose 187 H 253 H 131 H Random Glucose Fasting Glucose Estimat Average Glucose Hemoglobin A1c % Calcium Total Bilirubin Direct Bilirubin AST ALT Alkaline Phosphatase Ammonia Total Protein Albumin Triglycerides Cholesterol LDL Cholesterol, Calc HDL Cholesterol Vitamin B12 Folate TSH Urine Color Urine Appearance Urine pH Ur Specific [place] Urine Protein Urine Glucose (UA) Urine Ketones Urine Blood Urine Nitrite Ur Leukocyte Esterase Urine RBC Urine WBC Ur Squamous Epith Cells Urine Bacteria Hyaline Casts Granular Casts Urine Yeast Stool Occult Blood Stl C. cayetanensis PCR Stool Rotavirus A PCR Stl Adenov F 40/41 PCR Stool Astrovirus (PCR) Stool Campylobacter PCR Stool Cryptosporidium PCR Stl Sh Tox Pr E STEC PCR Stool E coli O157 PCR Stl Enterotoxigenic E PCR Stool EPEC (PCR) Stool EAEC (PCR) Stl E. histolytica PCR Stool Giardia Lamblia PCR Stl P. shigelloides PCR Stool Salmonella PCR Stool Sapovirus (PCR) Stl Shigella/EIEC PCR St Y.enterocolitica PCR Stool Vibrio (PCR) Stl Vibrio cholerae PCR Stl Norovirus GI/GII PCR Valproic Acid C. difficile Tox B Gene C. difficile Toxin A&B C. difficile Interpret 12/21/23 12/21/23 12/21/23 11:17 16:05 19:55 WBC RBC Hgb Hct MCV MCH MCHC RDW Plt Count MPV Immature Gran % (Auto) Neut % (Auto) Lymph % (Auto) [place] % (Auto) Eos % (Auto) Baso % (Auto) Lymph # (Auto) [place] # (Auto) Eos # (Auto) Baso # (Auto) Abs Immat Gran (auto) Absolute Neuts (auto) Absolute Nucleated RBC Nucleated RBC % (auto) Sodium Potassium Chloride Carbon Dioxide Anion Gap BUN Creatinine Estim Creat Clear Calc Estimated GFR POC Glucose 234 H 155 H 209 H Random Glucose Fasting Glucose Estimat Average Glucose Hemoglobin A1c % Calcium Total Bilirubin Direct Bilirubin AST ALT Alkaline Phosphatase Ammonia Total Protein Albumin Triglycerides Cholesterol LDL Cholesterol, Calc HDL Cholesterol Vitamin B12 Folate TSH Urine Color Urine Appearance Urine pH Ur Specific [place] Urine Protein Urine Glucose (UA) Urine Ketones Urine Blood Urine Nitrite Ur Leukocyte Esterase Urine RBC Urine WBC Ur Squamous Epith Cells Urine Bacteria Hyaline Casts Granular Casts Urine Yeast Stool Occult Blood Stl C. cayetanensis PCR Stool Rotavirus A PCR Stl Adenov F 40/41 PCR Stool Astrovirus (PCR) Stool Campylobacter PCR Stool Cryptosporidium PCR Stl Sh Tox Pr E STEC PCR Stool E coli O157 PCR Stl Enterotoxigenic E PCR Stool EPEC (PCR) Stool EAEC (PCR) Stl E. histolytica PCR Stool Giardia Lamblia PCR Stl P. shigelloides PCR Stool Salmonella PCR Stool Sapovirus (PCR) Stl Shigella/EIEC PCR St Y.enterocolitica PCR Stool Vibrio (PCR) Stl Vibrio cholerae PCR Stl Norovirus GI/GII PCR Valproic Acid C. difficile Tox B Gene C. difficile Toxin A&B C. difficile Interpret 12/22/23 12/22/23 12/22/23 06:35 11:29 16:31 WBC RBC Hgb Hct MCV MCH MCHC RDW Plt Count MPV Immature Gran % (Auto) Neut % (Auto) Lymph % (Auto) [place] % (Auto) Eos % (Auto) Baso % (Auto) Lymph # (Auto) [place] # (Auto) Eos # (Auto) Baso # (Auto) Abs Immat Gran (auto) Absolute Neuts (auto) Absolute Nucleated RBC Nucleated RBC % (auto) Sodium Potassium Chloride Carbon Dioxide Anion Gap BUN Creatinine Estim Creat Clear Calc Estimated GFR POC Glucose 131 H 224 H 194 H Random Glucose Fasting Glucose Estimat Average Glucose Hemoglobin A1c % Calcium Total Bilirubin Direct Bilirubin AST ALT Alkaline Phosphatase Ammonia Total Protein Albumin Triglycerides Cholesterol LDL Cholesterol, Calc HDL Cholesterol Vitamin B12 Folate TSH Urine Color Urine Appearance Urine pH Ur Specific [place] Urine Protein Urine Glucose (UA) Urine Ketones Urine Blood Urine Nitrite Ur Leukocyte Esterase Urine RBC Urine WBC Ur Squamous Epith Cells Urine Bacteria Hyaline Casts Granular Casts Urine Yeast Stool Occult Blood Stl C. cayetanensis PCR Stool Rotavirus A PCR Stl Adenov F PCR Stool Astrovirus (PCR) Stool Campylobacter PCR Stool Cryptosporidium PCR Stl Sh Tox Pr E STEC PCR Stool E coli O157 PCR Stl Enterotoxigenic E PCR Stool EPEC (PCR) Stool EAEC (PCR) Stl E. histolytica PCR Stool Giardia Lamblia PCR Stl P. shigelloides PCR Stool Salmonella PCR Stool Sapovirus (PCR) Stl Shigella/EIEC PCR St Y.enterocolitica PCR Stool Vibrio (PCR) Stl Vibrio cholerae PCR Stl Norovirus GI/GII PCR Valproic Acid C. difficile Tox B Gene C. difficile Toxin A&B C. difficile Interpret 12/22/23 12/23/23 12/23/23 19:59 05:19 11:21 WBC RBC Hgb Hct MCV MCH MCHC RDW Plt Count MPV Immature Gran % (Auto) Neut % (Auto) Lymph % (Auto) [place] % (Auto) Eos % (Auto) Baso % (Auto) Lymph # (Auto) [place] # (Auto) Eos # (Auto) Baso # (Auto) Abs Immat Gran (auto) Absolute Neuts (auto) Absolute Nucleated RBC Nucleated RBC % (auto) Sodium Potassium Chloride Carbon Dioxide Anion Gap BUN Creatinine Estim Creat Clear Calc Estimated GFR POC Glucose 255 H 121 H 124 H Random Glucose Fasting Glucose Estimat Average Glucose Hemoglobin A1c % Calcium Total Bilirubin Direct Bilirubin AST ALT Alkaline Phosphatase Ammonia Total Protein Albumin Triglycerides Cholesterol LDL Cholesterol, Calc HDL Cholesterol Vitamin B12 Folate TSH Urine Color Urine Appearance Urine pH Ur Specific [place] Urine Protein Urine Glucose (UA) Urine Ketones Urine Blood Urine Nitrite Ur Leukocyte Esterase Urine RBC Urine WBC Ur Squamous Epith Cells Urine Bacteria Hyaline Casts Granular Casts Urine Yeast Stool Occult Blood Stl C. cayetanensis PCR Stool Rotavirus A PCR Stl Adenov F PCR Stool Astrovirus (PCR) Stool Campylobacter PCR Stool Cryptosporidium PCR Stl Sh Tox Pr E STEC PCR Stool E coli O157 PCR Stl Enterotoxigenic E PCR Stool EPEC (PCR) Stool EAEC (PCR) Stl E. histolytica PCR Stool Giardia Lamblia PCR Stl P. shigelloides PCR Stool Salmonella PCR Stool Sapovirus (PCR) Stl Shigella/EIEC PCR St Y.enterocolitica PCR Stool Vibrio (PCR) Stl Vibrio cholerae PCR Stl Norovirus GI/GII PCR Valproic Acid C. difficile Tox B Gene C. difficile Toxin A&B C. difficile Interpret 12/23/23 12/23/23 12/24/23 16:07 20:29 06:20 WBC RBC Hgb Hct MCV MCH MCHC RDW Plt Count MPV Immature Gran % (Auto) Neut % (Auto) Lymph % (Auto) [place] % (Auto) Eos % (Auto) Baso % (Auto) Lymph # (Auto) [place] # (Auto) Eos # (Auto) Baso # (Auto) Abs Immat Gran (auto) Absolute Neuts (auto) Absolute Nucleated RBC Nucleated RBC % (auto) Sodium Potassium Chloride Carbon Dioxide Anion Gap BUN Creatinine Estim Creat Clear Calc Estimated GFR POC Glucose 132 H 308 H 144 H Random Glucose Fasting Glucose Estimat Average Glucose Hemoglobin A1c % Calcium Total Bilirubin Direct Bilirubin AST ALT Alkaline Phosphatase Ammonia Total Protein Albumin Triglycerides Cholesterol LDL Cholesterol, Calc HDL Cholesterol Vitamin B12 Folate TSH Urine Color Urine Appearance Urine pH Ur Specific [place] Urine Protein Urine Glucose (UA) Urine Ketones Urine Blood Urine Nitrite Ur Leukocyte Esterase Urine RBC Urine WBC Ur Squamous Epith Cells Urine Bacteria Hyaline Casts Granular Casts Urine Yeast Stool Occult Blood Stl C. cayetanensis PCR Stool Rotavirus A PCR Stl Adenov F 40/41 PCR Stool Astrovirus (PCR) Stool Campylobacter PCR Stool Cryptosporidium PCR Stl Sh Tox Pr E STEC PCR Stool E coli O157 PCR Stl Enterotoxigenic E PCR Stool EPEC (PCR) Stool EAEC (PCR) Stl E. histolytica PCR Stool Giardia Lamblia PCR Stl P. shigelloides PCR Stool Salmonella PCR Stool Sapovirus (PCR) Stl Shigella/EIEC PCR St Y.enterocolitica PCR Stool Vibrio (PCR) Stl Vibrio cholerae PCR Stl Norovirus GI/GII PCR Valproic Acid C. difficile Tox B Gene C. difficile Toxin A&B C. difficile Interpret 12/24/23 12/24/23 12/24/23 07:46 11:28 16:25 WBC RBC Hgb Hct MCV MCH MCHC RDW Plt Count MPV Immature Gran % (Auto) Neut % (Auto) Lymph % (Auto) [place] % (Auto) Eos % (Auto) Baso % (Auto) Lymph # (Auto) [place] # (Auto) Eos # (Auto) Baso # (Auto) Abs Immat Gran (auto) Absolute Neuts (auto) Absolute Nucleated RBC Nucleated RBC % (auto) Sodium Potassium Chloride Carbon Dioxide Anion Gap BUN Creatinine Estim Creat Clear Calc Estimated GFR POC Glucose 141 H 437 H* 155 H Random Glucose Fasting Glucose Estimat Average Glucose Hemoglobin A1c % Calcium Total Bilirubin Direct Bilirubin AST ALT Alkaline Phosphatase Ammonia Total Protein Albumin Triglycerides Cholesterol LDL Cholesterol, Calc HDL Cholesterol Vitamin B12 Folate TSH Urine Color Urine Appearance Urine pH Ur Specific [place] Urine Protein Urine Glucose (UA) Urine Ketones Urine Blood Urine Nitrite Ur Leukocyte Esterase Urine RBC Urine WBC Ur Squamous Epith Cells Urine Bacteria Hyaline Casts Granular Casts Urine Yeast Stool Occult Blood Stl C. cayetanensis PCR Stool Rotavirus A PCR Stl Adenov F 40/41 PCR Stool Astrovirus (PCR) Stool Campylobacter PCR Stool Cryptosporidium PCR Stl Sh Tox Pr E STEC PCR Stool E coli O157 PCR Stl Enterotoxigenic E PCR Stool EPEC (PCR) Stool EAEC (PCR) Stl E. histolytica PCR Stool Giardia Lamblia PCR Stl P. shigelloides PCR Stool Salmonella PCR Stool Sapovirus (PCR) Stl Shigella/EIEC PCR St Y.enterocolitica PCR Stool Vibrio (PCR) Stl Vibrio cholerae PCR Stl Norovirus GI/GII PCR Valproic Acid C. difficile Tox B Gene C. difficile Toxin A&B C. difficile Interpret 12/24/23 12/25/23 12/25/23 20:04 06:11 11:37 WBC RBC Hgb Hct MCV MCH MCHC RDW Plt Count MPV Immature Gran % (Auto) Neut % (Auto) Lymph % (Auto) [place] % (Auto) Eos % (Auto) Baso % (Auto) Lymph # (Auto) [place] # (Auto) Eos # (Auto) Baso # (Auto) Abs Immat Gran (auto) Absolute Neuts (auto) Absolute Nucleated RBC Nucleated RBC % (auto) Sodium Potassium Chloride Carbon Dioxide Anion Gap BUN Creatinine Estim Creat Clear Calc Estimated GFR POC Glucose 299 H 171 H 244 H Random Glucose Fasting Glucose Estimat Average Glucose Hemoglobin A1c % Calcium Total Bilirubin Direct Bilirubin AST ALT Alkaline Phosphatase Ammonia Total Protein Albumin Triglycerides Cholesterol LDL Cholesterol, Calc HDL Cholesterol Vitamin B12 Folate TSH Urine Color Urine Appearance Urine pH Ur Specific [place] Urine Protein Urine Glucose (UA) Urine Ketones Urine Blood Urine Nitrite Ur Leukocyte Esterase Urine RBC Urine WBC Ur Squamous Epith Cells Urine Bacteria Hyaline Casts Granular Casts Urine Yeast Stool Occult Blood Stl C. cayetanensis PCR Stool Rotavirus A PCR Stl Adenov F PCR Stool Astrovirus (PCR) Stool Campylobacter PCR Stool Cryptosporidium PCR Stl Sh Tox Pr E STEC PCR Stool E coli O157 PCR Stl Enterotoxigenic E PCR Stool EPEC (PCR) Stool EAEC (PCR) Stl E. histolytica PCR Stool Giardia Lamblia PCR Stl P. shigelloides PCR Stool Salmonella PCR Stool Sapovirus (PCR) Stl Shigella/EIEC PCR St Y.enterocolitica PCR Stool Vibrio (PCR) Stl Vibrio cholerae PCR Stl Norovirus GI/GII PCR Valproic Acid C. difficile Tox B Gene C. difficile Toxin A&B C. difficile Interpret 12/25/23 12/25/23 12/26/23 16:27 19:53 06:50 WBC RBC Hgb Hct MCV MCH MCHC RDW Plt Count MPV Immature Gran % (Auto) Neut % (Auto) Lymph % (Auto) [place] % (Auto) Eos % (Auto) Baso % (Auto) Lymph # (Auto) [place] # (Auto) Eos # (Auto) Baso # (Auto) Abs Immat Gran (auto) Absolute Neuts (auto) Absolute Nucleated RBC Nucleated RBC % (auto) Sodium Potassium Chloride Carbon Dioxide Anion Gap BUN Creatinine Estim Creat Clear Calc Estimated GFR POC Glucose 213 H 264 H 184 H Random Glucose Fasting Glucose Estimat Average Glucose Hemoglobin A1c % Calcium Total Bilirubin Direct Bilirubin AST ALT Alkaline Phosphatase Ammonia Total Protein Albumin Triglycerides Cholesterol LDL Cholesterol, Calc HDL Cholesterol Vitamin B12 Folate TSH Urine Color Urine Appearance Urine pH Ur Specific [place] Urine Protein Urine Glucose (UA) Urine Ketones Urine Blood Urine Nitrite Ur Leukocyte Esterase Urine RBC Urine WBC Ur Squamous Epith Cells Urine Bacteria Hyaline Casts Granular Casts Urine Yeast Stool Occult Blood Stl C. cayetanensis PCR Stool Rotavirus A PCR Stl Adenov F 40 PCR Stool Astrovirus (PCR) Stool Campylobacter PCR Stool Cryptosporidium PCR Stl Sh Tox Pr E STEC PCR Stool E coli O157 PCR Stl Enterotoxigenic E PCR Stool EPEC (PCR) Stool EAEC (PCR) Stl E. histolytica PCR Stool Giardia Lamblia PCR Stl P. shigelloides PCR Stool Salmonella PCR Stool Sapovirus (PCR) Stl Shigella/EIEC PCR St Y.enterocolitica PCR Stool Vibrio (PCR) Stl Vibrio cholerae PCR Stl Norovirus GI/GII PCR Valproic Acid C. difficile Tox B Gene C. difficile Toxin A&B C. difficile Interpret 12/26/23 12/26/23 12/26/23 11:36 16:27 19:55 WBC RBC Hgb Hct MCV MCH MCHC RDW Plt Count MPV Immature Gran % (Auto) Neut % (Auto) Lymph % (Auto) [place] % (Auto) Eos % (Auto) Baso % (Auto) Lymph # (Auto) [place] # (Auto) Eos # (Auto) Baso # (Auto) Abs Immat Gran (auto) Absolute Neuts (auto) Absolute Nucleated RBC Nucleated RBC % (auto) Sodium Potassium Chloride Carbon Dioxide Anion Gap BUN Creatinine Estim Creat Clear Calc Estimated GFR POC Glucose 407 H* 343 H 265 H Random Glucose Fasting Glucose Estimat Average Glucose Hemoglobin A1c % Calcium Total Bilirubin Direct Bilirubin AST ALT Alkaline Phosphatase Ammonia Total Protein Albumin Triglycerides Cholesterol LDL Cholesterol, Calc HDL Cholesterol Vitamin B12 Folate TSH Urine Color Urine Appearance Urine pH Ur Specific [place] Urine Protein Urine Glucose (UA) Urine Ketones Urine Blood Urine Nitrite Ur Leukocyte Esterase Urine RBC Urine WBC Ur Squamous Epith Cells Urine Bacteria Hyaline Casts Granular Casts Urine Yeast Stool Occult Blood Stl C. cayetanensis PCR Stool Rotavirus A PCR Stl Adenov F 40/41 PCR Stool Astrovirus (PCR) Stool Campylobacter PCR Stool Cryptosporidium PCR Stl Sh Tox Pr E STEC PCR Stool E coli O157 PCR Stl Enterotoxigenic E PCR Stool EPEC (PCR) Stool EAEC (PCR) Stl E. histolytica PCR Stool Giardia Lamblia PCR Stl P. shigelloides PCR Stool Salmonella PCR Stool Sapovirus (PCR) Stl Shigella/EIEC PCR St Y.enterocolitica PCR Stool Vibrio (PCR) Stl Vibrio cholerae PCR Stl Norovirus GI/GII PCR Valproic Acid C. difficile Tox B Gene C. difficile Toxin A&B C. difficile Interpret 12/27/23 12/27/23 12/27/23 06:00 11:30 16:28 WBC RBC Hgb Hct MCV MCH MCHC RDW Plt Count MPV Immature Gran % (Auto) Neut % (Auto) Lymph % (Auto) [place] % (Auto) Eos % (Auto) Baso % (Auto) Lymph # (Auto) [place] # (Auto) Eos # (Auto) Baso # (Auto) Abs Immat Gran (auto) Absolute Neuts (auto) Absolute Nucleated RBC Nucleated RBC % (auto) Sodium Potassium Chloride Carbon Dioxide Anion Gap BUN Creatinine Estim Creat Clear Calc Estimated GFR POC Glucose 158 H 391 H* 489 H* Random Glucose Fasting Glucose Estimat Average Glucose Hemoglobin A1c % Calcium Total Bilirubin Direct Bilirubin AST ALT Alkaline Phosphatase Ammonia Total Protein Albumin Triglycerides Cholesterol LDL Cholesterol, Calc HDL Cholesterol Vitamin B12 Folate TSH Urine Color Urine Appearance Urine pH Ur Specific [place] Urine Protein Urine Glucose (UA) Urine Ketones Urine Blood Urine Nitrite Ur Leukocyte Esterase Urine RBC Urine WBC Ur Squamous Epith Cells Urine Bacteria Hyaline Casts Granular Casts Urine Yeast Stool Occult Blood Stl C. cayetanensis PCR Stool Rotavirus A PCR Stl Adenov F 40/41 PCR Stool Astrovirus (PCR) Stool Campylobacter PCR Stool Cryptosporidium PCR Stl Sh Tox Pr E STEC PCR Stool E coli O157 PCR Stl Enterotoxigenic E PCR Stool EPEC (PCR) Stool EAEC (PCR) Stl E. histolytica PCR Stool Giardia Lamblia PCR Stl P. shigelloides PCR Stool Salmonella PCR Stool Sapovirus (PCR) Stl Shigella/EIEC PCR St Y.enterocolitica PCR Stool Vibrio (PCR) Stl Vibrio cholerae PCR Stl Norovirus GI/GII PCR Valproic Acid C. difficile Tox B Gene C. difficile Toxin A&B C. difficile Interpret 12/27/23 12/28/23 12/28/23 19:55 06:35 11:18 WBC RBC Hgb Hct MCV MCH MCHC RDW Plt Count MPV Immature Gran % (Auto) Neut % (Auto) Lymph % (Auto) [place] % (Auto) Eos % (Auto) Baso % (Auto) Lymph # (Auto) [place] # (Auto) Eos # (Auto) Baso # (Auto) Abs Immat Gran (auto) Absolute Neuts (auto) Absolute Nucleated RBC Nucleated RBC % (auto) Sodium Potassium Chloride Carbon Dioxide Anion Gap BUN Creatinine Estim Creat Clear Calc Estimated GFR POC Glucose 400 H* 234 H 184 H Random Glucose Fasting Glucose Estimat Average Glucose Hemoglobin A1c % Calcium Total Bilirubin Direct Bilirubin AST ALT Alkaline Phosphatase Ammonia Total Protein Albumin Triglycerides Cholesterol LDL Cholesterol, Calc HDL Cholesterol Vitamin B12 Folate TSH Urine Color Urine Appearance Urine pH Ur Specific [place] Urine Protein Urine Glucose (UA) Urine Ketones Urine Blood Urine Nitrite Ur Leukocyte Esterase Urine RBC Urine WBC Ur Squamous Epith Cells Urine Bacteria Hyaline Casts Granular Casts Urine Yeast Stool Occult Blood Stl C. cayetanensis PCR Stool Rotavirus A PCR Stl Adenov F 40 PCR Stool Astrovirus (PCR) Stool Campylobacter PCR Stool Cryptosporidium PCR Stl Sh Tox Pr E STEC PCR Stool E coli O157 PCR Stl Enterotoxigenic E PCR Stool EPEC (PCR) Stool EAEC (PCR) Stl E. histolytica PCR Stool Giardia Lamblia PCR Stl P. shigelloides PCR Stool Salmonella PCR Stool Sapovirus (PCR) Stl Shigella/EIEC PCR St Y.enterocolitica PCR Stool Vibrio (PCR) Stl Vibrio cholerae PCR Stl Norovirus GI/GII PCR Valproic Acid C. difficile Tox B Gene C. difficile Toxin A&B C. difficile Interpret 12/28/23 12/28/23 12/28/23 16:02 20:21 22:14 WBC RBC Hgb Hct MCV MCH MCHC RDW Plt Count MPV Immature Gran % (Auto) Neut % (Auto) Lymph % (Auto) [place] % (Auto) Eos % (Auto) Baso % (Auto) Lymph # (Auto) [place] # (Auto) Eos # (Auto) Baso # (Auto) Abs Immat Gran (auto) Absolute Neuts (auto) Absolute Nucleated RBC Nucleated RBC % (auto) Sodium Potassium Chloride Carbon Dioxide Anion Gap BUN Creatinine Estim Creat Clear Calc Estimated GFR POC Glucose 148 H 369 H* 403 H* Random Glucose Fasting Glucose Estimat Average Glucose Hemoglobin A1c % Calcium Total Bilirubin Direct Bilirubin AST ALT Alkaline Phosphatase Ammonia Total Protein Albumin Triglycerides Cholesterol LDL Cholesterol, Calc HDL Cholesterol Vitamin B12 Folate TSH Urine Color Urine Appearance Urine pH Ur Specific [place] Urine Protein Urine Glucose (UA) Urine Ketones Urine Blood Urine Nitrite Ur Leukocyte Esterase Urine RBC Urine WBC Ur Squamous Epith Cells Urine Bacteria Hyaline Casts Granular Casts Urine Yeast Stool Occult Blood Stl C. cayetanensis PCR Stool Rotavirus A PCR Stl Adenov F 40 PCR Stool Astrovirus (PCR) Stool Campylobacter PCR Stool Cryptosporidium PCR Stl Sh Tox Pr E STEC PCR Stool E coli O157 PCR Stl Enterotoxigenic E PCR Stool EPEC (PCR) Stool EAEC (PCR) Stl E. histolytica PCR Stool Giardia Lamblia PCR Stl P. shigelloides PCR Stool Salmonella PCR Stool Sapovirus (PCR) Stl Shigella/EIEC PCR St Y.enterocolitica PCR Stool Vibrio (PCR) Stl Vibrio cholerae PCR Stl Norovirus GI/GII PCR Valproic Acid C. difficile Tox B Gene C. difficile Toxin A&B C. difficile Interpret 12/29/23 12/29/23 12/29/23 05:58 11:08 11:58 WBC 3.5 L RBC 3.56 L Hgb 9.9 L Hct 30.9 L MCV 86.8 MCH 27.8 MCHC 32.0 RDW 14.6 Plt Count 75 L MPV 10.4 Immature Gran % (Auto) 0.6 H Neut % (Auto) 70.1 Lymph % (Auto) 20.3 [place] % (Auto) 7.5 Eos % (Auto) 1.2 Baso % (Auto) 0.3 Lymph # (Auto) 0.7 L [place] # (Auto) 0.3 Eos # (Auto) 0.0 Baso # (Auto) 0.0 Abs Immat Gran (auto) 0.02 Absolute Neuts (auto) 2.4 Absolute Nucleated RBC 0.000 Nucleated RBC % (auto) 0.0 Sodium 137 Potassium 4.8 Chloride 100 Carbon Dioxide 28 Anion Gap 14 BUN 40 H Creatinine 0.91 Estim Creat Clear Calc 36.4 Estimated GFR > 60 POC Glucose 168 H 300 H Random Glucose 364 H* Fasting Glucose Estimat Average Glucose Hemoglobin A1c % Calcium 10.1 Total Bilirubin 0.3 Direct Bilirubin AST 52 H ALT 47 H Alkaline Phosphatase 195 H Ammonia Total Protein 8.6 H Albumin 3.4 L Triglycerides Cholesterol LDL Cholesterol, Calc HDL Cholesterol Vitamin B12 Folate TSH Urine Color Urine Appearance Urine pH Ur Specific [place] Urine Protein Urine Glucose (UA) Urine Ketones Urine Blood Urine Nitrite Ur Leukocyte Esterase Urine RBC Urine WBC Ur Squamous Epith Cells Urine Bacteria Hyaline Casts Granular Casts Urine Yeast Stool Occult Blood Stl C. cayetanensis PCR Stool Rotavirus A PCR Stl Adenov F 40/41 PCR Stool Astrovirus (PCR) Stool Campylobacter PCR Stool Cryptosporidium PCR Stl Sh Tox Pr E STEC PCR Stool E coli O157 PCR Stl Enterotoxigenic E PCR Stool EPEC (PCR) Stool EAEC (PCR) Stl E. histolytica PCR Stool Giardia Lamblia PCR Stl P. shigelloides PCR Stool Salmonella PCR Stool Sapovirus (PCR) Stl Shigella/EIEC PCR St Y.enterocolitica PCR Stool Vibrio (PCR) Stl Vibrio cholerae PCR Stl Norovirus GI/GII PCR Valproic Acid C. difficile Tox B Gene C. difficile Toxin A&B C. difficile Interpret 12/29/23 12/29/23 12/29/23 16:31 17:30 19:53 WBC RBC Hgb Hct MCV MCH MCHC RDW Plt Count MPV Immature Gran % (Auto) Neut % (Auto) Lymph % (Auto) [place] % (Auto) Eos % (Auto) Baso % (Auto) Lymph # (Auto) [place] # (Auto) Eos # (Auto) Baso # (Auto) Abs Immat Gran (auto) Absolute Neuts (auto) Absolute Nucleated RBC Nucleated RBC % (auto) Sodium Potassium Chloride Carbon Dioxide Anion Gap BUN Creatinine Estim Creat Clear Calc Estimated GFR POC Glucose 285 H 242 H Random Glucose Fasting Glucose Estimat Average Glucose Hemoglobin A1c % Calcium Total Bilirubin Direct Bilirubin AST ALT Alkaline Phosphatase Ammonia Total Protein Albumin Triglycerides Cholesterol LDL Cholesterol, Calc HDL Cholesterol Vitamin B12 Folate TSH Urine Color Yellow Urine Appearance Cloudy Urine pH 7.5 Ur Specific [place] 1.020 Urine Protein Trace Urine Glucose (UA) Negative Urine Ketones Negative Urine Blood Trace H Urine Nitrite Positive H Ur Leukocyte Esterase Large (3+) H Urine RBC 0-2 Urine WBC 21-50 Ur Squamous Epith Cells 0-2 Urine Bacteria 3+ Hyaline Casts 0-2 Granular Casts Urine Yeast Stool Occult Blood Stl C. cayetanensis PCR Stool Rotavirus A PCR Stl Adenov F 40/41 PCR Stool Astrovirus (PCR) Stool Campylobacter PCR Stool Cryptosporidium PCR Stl Sh Tox Pr E STEC PCR Stool E coli O157 PCR Stl Enterotoxigenic E PCR Stool EPEC (PCR) Stool EAEC (PCR) Stl E. histolytica PCR Stool Giardia Lamblia PCR Stl P. shigelloides PCR Stool Salmonella PCR Stool Sapovirus (PCR) Stl Shigella/EIEC PCR St Y.enterocolitica PCR Stool Vibrio (PCR) Stl Vibrio cholerae PCR Stl Norovirus GI/GII PCR Valproic Acid C. difficile Tox B Gene C. difficile Toxin A&B C. difficile Interpret Airway Mallampati Class: III TM Dist: <=3cm Neck ROM: Full Denture: Upper Partial: Lower Loose/Missing/Broken Teeth: Yes, Upper and Lower Heart: ok Lungs: ok Assessment and Plan Assessment Anesthesia Assessment: Anesthesia Plan Discussed and Chart Reviewed Final Anesthetic Review Family History of Problems with Anesthesia: No History of Problems with Anesthesia: No NPO: Yes ASA Class: III Final Preanesthetic Review: No Changes in Pt Med Stat, Meds/Allgs Chart Reviewed, Consent Obtained/Reviewed and Anes Risks/Benef Reviewed Patient Risk: Intermediate Procedure Risk: Intermediate Anesthetic Plan Anesthetic Plan: GA and Agree w/ Assess. and Plan Disposition: Standard PACU Documented by User: Mariella Chiu MD 12/30/23 07:12 HPI - Anesthesia Eval Consult details Narrative: 73 yo female patientfor ECT PMFSH Past Medical History Medical History Cirrhosis Hypothyroidism Breast cancer Hx of Clostridium difficile infection (HFpEF) heart failure with preserved ejection fraction Murmur CKD (chronic kidney disease) stage 3, GFR 30-59 ml/min Vitamin D deficiency HLD (hyperlipidemia) HTN (hypertension) T2DM (type 2 diabetes mellitus) Family History Family History Father Alzheimer disease Stroke Mother Breast cancer Family history of problems with anesthesia: No Surgical History Surgical History Hx of cataract surgery History of lumpectomy of right breast History of mastectomy History of Problems with Anesthesia: No Social History Social History Household Members: Family Household Members Other:: son Alcohol intake: never Patient Tobacco Use Status: Never used Tobacco Use of substances other than those prescribed or required for medical reasons: Unable to respond Last Used Substance Other:: unknown, unable to respond, she is nonsensical and delusional when she does Currently Displaying Signs/Symptoms of Drug Intoxication Withdrawal: No Other Past Substance Use Problem:: unknown, unable to respond, she is nonsensical and delusional when she does Spiritual Healthcare Practices: unknown, unable to respond, she is nonsensical and delusional when she does respond Rastafari Healthcare Practices: unknown, unable to respond, she is nonsensical and delusional when she does respond Cultural Healthcare Practices: unknown, unable to respond, she is nonsensical and delusional when she does respond Advance Directives: No Advance Directives Information Provided: No Do you have thoughts of harming others: None Do you have a plan to hurt others: No Plan Recently lost weight without trying: Unsure Patient : No : No Poor oral hygiene: No service: No Sexual orientation: Straight/Heterosexual Meds Allergies Allergy/AdvReac Type Severity Reaction Status Date / Time atropine Allergy Unknown Shortness Verified 12/02/23 23:30 of Breath enoxaparin [From Lovenox] Allergy Unknown Unknown Verified 12/02/23 23:30 penicillin V Allergy Unknown Unknown Verified 03/19/23 07:30 pseudoephedrine [Aprodine] Allergy Unknown Unknown Verified 03/19/23 07:30 triprolidine [Aprodine] Allergy Unknown Unknown Verified 03/19/23 07:30 Home Medications ?Medication ?Instructions ?Recorded ?Confirmed ?Last Taken ?Type ascorbate calcium (vitamin C) 500 500 mg PO DAILY 03/24/20 11/20/22 Unknown History mg tablet fluoxetine 20 mg capsule 40 mg PO DAILY 03/24/20 11/20/22 Unknown History levothyroxine 100 mcg tablet 100 mcg PO QAM 03/24/20 11/20/22 Unknown History mirtazapine 30 mg tablet 30 mg PO BEDTIME 03/24/20 11/20/22 Unknown History omeprazole 20 mg capsule,delayed 20 mg PO DAILY 03/24/20 11/20/22 Unknown History release risperidone 1 mg tablet 1 mg PO BEDTIME 03/24/20 11/20/22 Unknown History insulin glargine 100 unit/mL (3 30 unit subcut BEDTIME 09/28/20 11/20/22 Unknown History mL) subcutaneous pen anastrozole 1 mg tablet 1 mg PO DAILY 02/16/21 11/20/22 Unknown History dapagliflozin propanediol 10 mg 10 mg PO QAM 05/08/21 11/20/22 Unknown History tablet (Farxiga) losartan 50 mg tablet 50 mg PO DAILY 09/14/21 11/20/22 Unknown History amlodipine 5 mg tablet 5 mg PO QAM 12/02/23 12/02/23 Unknown History anastrozole 1 mg tablet 1 mg PO DAILY 12/02/23 12/02/23 Unknown History aspirin 81 mg chewable tablet 1 tab PO QAM 12/02/23 12/02/23 Unknown History cetirizine 5 mg tablet 5 mg PO BEDTIME 12/02/23 12/02/23 Unknown History divalproex 500 mg tablet,delayed 500 mg PO BEDTIME 12/02/23 12/02/23 Unknown History release ferrous sulfate 325 mg (65 mg 325 mg PO QAM 12/02/23 12/02/23 Unknown History iron) tablet (FeroSul) furosemide 20 mg tablet (Lasix) 20 mg PO DAILY 12/02/23 12/02/23 Unknown History insulin glargine 100 unit/mL 6 unit subcut BEDTIME 12/02/23 12/02/23 Unknown History subcutaneous solution insulin lispro 100 unit/mL 1 sliding scale dose subcut 12/02/23 12/02/23 Unknown History subcutaneous solution USEASDIRECTD levetiracetam 500 mg tablet 500 mg PO BID 12/02/23 12/02/23 Unknown History losartan 100 mg tablet 100 mg PO DAILY 12/02/23 12/02/23 Unknown History losartan 100 mg tablet 100 mg PO DAILY 12/02/23 12/02/23 Unknown History magnesium oxide 400 mg PO BID 12/02/23 12/02/23 Unknown History mirtazapine 30 mg disintegrating 30 mg PO BEDTIME 12/02/23 12/02/23 Unknown History tablet multivitamin with minerals 1 tab PO DAILY 12/02/23 12/02/23 Unknown History pantoprazole 40 mg tablet,delayed 40 mg PO DAILY 12/02/23 12/02/23 Unknown History release risperidone 0.5 mg tablet 0.5 mg PO BID PRN Agitation 12/02/23 12/02/23 Unknown History risperidone 2 mg tablet 2 mg PO BID 12/02/23 12/02/23 Unknown History simvastatin 20 mg tablet 20 mg PO BEDTIME 12/02/23 12/02/23 Unknown History thiamine HCl (vitamin B1) 100 mg 100 mg PO QAM 12/02/23 12/02/23 Unknown History tablet trazodone 50 mg tablet 50 mg PO BEDTIME PRN insomnia 12/02/23 12/02/23 Unknown History vancomycin 125 mg capsule See Rx Instructions .Route .COMPLEX 12/02/23 12/02/23 Unknown History (Vancocin) Assessment and Plan Final Anesthetic Review Family History of Problems with Anesthesia: No History of Problems with Anesthesia: No
--- NOTE | 2023-12-30 07:05 | MHC.SHP ---
Pre-Procedural Eval Section A - 24 Hr Update-Section A only Date of Service: 12/30/23 The patient is an INPATIENT: Yes Changes since office visit: No Cold of Flu in the past 2 weeks, No New Medical Problems, No Changes in Medication and No Patient answered all questions The patient has been examined within 24 hours of the surgical procedure. The History & Physical has been completed within 30 days and I have reviewed it.: Yes Section B - Complete if H&P > 30 days Chief Complaint: Major depressive disorder, severe, recurrent Allergies: Allergies Allergy/AdvReac Type Severity Reaction Status Date / Time atropine Allergy Unknown Shortness Verified 12/02/23 23:30 of Breath enoxaparin [From Lovenox] Allergy Unknown Unknown Verified 12/02/23 23:30 penicillin V Allergy Unknown Unknown Verified 03/19/23 07:30 pseudoephedrine [Aprodine] Allergy Unknown Unknown Verified 03/19/23 07:30 triprolidine [Aprodine] Allergy Unknown Unknown Verified 03/19/23 07:30 Plan I have reviewed the history and physical and performed a pertinent physical examination on my patient. No changes have occurred unless specified. Time Spent With Patient Time: Total time managing care of this patient today ____ minutes.
[2023-12-30] MEDS: Lactated Ringers 1,000 ML 50 ML IVCONT (07:09)
[2023-12-30 07:12] LABS: Glucose, Whole Blood 112 mg/dL (60-115)
--- NOTE | 2023-12-30 07:18 | HO.ECTPROC ---
ECT Procedure Note Diagnosis/Treatment Date of Service: 12/30/23 Diagnosis: Major Depressive Disorder and Catatonia Previous ECT Date: 12/27/23 Current Treatment Number: 6 Treatment: Series Interval Clinical Notes: The patient's catatonia has resolved, her mood is much brighter with a wider affect. Responded questions apprlopriately, denies side effects with previous ECT. ECT done as usual, no complications, woke up well. Time: Total time managing care of this patient today __30__ minutes. ECT Settings Device: THYMATRON DGx Electrode Placement: Bitemporal Program/Pulse Width: 0.50 Energy Percent: 100 Seizure Duration By EEG (in seconds): 41 By Motor Observation (in seconds): 11 Medications Administration General Anesthetic: Etomidate (12) Muscle Relaxant: Succinylcholine (80) Ancillary Medications Cardiovascular Medications: Glycopyrrolate Airway Management Airway Management: Bag Mask Ventilation Treatment Recommendations No Changes Recommended: No change Pt Tolerated Procedure w/o Issue: Yes
[2023-12-30] MEDS: Ferrous Sulfate 324 MG TABLET.DR PO (09:24)
[2023-12-30] MEDS: Aspirin 81 MG TAB.CHEW PO (09:24)
[2023-12-30] MEDS: Thiamine HCL 100 MG TABLET PO (09:24)
[2023-12-30] MEDS: cefuroxime axetiL 250 MG TABLET PO ×2 (09:24→21:56)
[2023-12-30] MEDS: Multivitamin TABLET 1 TAB PO (09:24)
[2023-12-30] MEDS: amLODIPine Besylate 5 MG TABLET PO (09:25)
[2023-12-30] MEDS: Furosemide 20 MG TABLET PO (09:25)
[2023-12-30] MEDS: Magnesium Oxide 400 MG TABLET PO ×2 (09:25→21:56)
[2023-12-30] MEDS: Losartan Potassium 50 MG TABLET 100 MG PO (09:26)
[2023-12-30] MEDS: Anastrozole 1 MG TABLET PO (10:11)
[2023-12-30 11:11] LABS: Glucose, Whole Blood 331 mg/dL (60-115)
--- NOTE | 2023-12-30 11:36 | HO.PSYCHPN ---
Subjective Subjective Date of Service: 12/30/23 Reason For Visit: Major depressive disorder, severe, recurrent Subjective Notes: Conditional Voluntary Healthcare Proxy: Yes Interim History: The nursing staff reported the patient was diagnosed with a UTI over the weekend because she was hypoactive. She is currently on antibiotics. On interview the patient reports that she is feeling better, she was slightly tired after ECT today in the morning but she was able to respond and answer questions effectively. In general she looks much better. We discussed on team and we are going to do a new family meeting to discuss discharge planning with her family. Mental Status Exam Mental Status Exam Patient Appearance: Appropriate Patient Orientation: Person and Situation Level of Consciousness: Awake and Appropriate Patient Behavior: Guarded and Passive Mood Description: Withdrawn Affect Description: Calm and Constricted Patient Cognition Impaired: Yes Ability to Follow Directions: Good Speech Pattern: Clear Hallucinations: None Delusions: Not Present Thought Process: Distracted and Slowed Thinking Thought Content: positive for [place] and positive for Poverty of Content Judgement: Fair Diagnostics Vital Signs (24Hr): Vital Signs - 24 hr 12/29/23 20:00 12/30/23 05:36 12/30/23 06:30 Temperature 98.4 F 96.6 F L 97.4 F Pulse Rate 73 62 64 Respiratory Rate 16 16 16 Blood Pressure 112/55 L 103/52 L 129/58 L Pulse Oximetry 98 98 95 Oxygen Delivery Method Room Air Room Air Oxygen Flow Rate 12/30/23 07:24 12/30/23 07:29 12/30/23 07:34 Temperature 98.7 F Pulse Rate 70 74 101 H Respiratory Rate 16 16 16 Blood Pressure 144/64 H 131/55 L 136/104 H Pulse Oximetry 97 96 96 Oxygen Delivery Method Nasal Cannula with ETCO2 Nasal Cannula with ETCO2 Nasal Cannula with ETCO2 Oxygen Flow Rate 2 2 2 12/30/23 07:39 12/30/23 07:54 12/30/23 09:00 Temperature 97.6 F 98.6 F Pulse Rate 97 93 81 Respiratory Rate 16 18 14 Blood Pressure 137/53 L 122/50 L 121/61 Pulse Oximetry 96 96 93 Oxygen Delivery Method Nasal Cannula with ETCO2 Room Air Room Air Oxygen Flow Rate 2 12/30/23 09:00 12/30/23 09:34 Temperature 98.8 F 98.8 F Pulse Rate 90 90 Respiratory Rate 16 16 Blood Pressure 138/65 138/65 Pulse Oximetry 95 94 Oxygen Delivery Method Oxygen Flow Rate BMI result Body Mass Index 21.7 Labs 12/29/23 11:58 12/29/23 11:58 Labs: Laboratory Results - last 48 hr 12/28/23 12/28/23 12/28/23 16:02 20:21 22:14 WBC RBC Hgb Hct MCV MCH MCHC RDW Plt Count MPV Immature Gran % (Auto) Neut % (Auto) Lymph % (Auto) Fleming % (Auto) Eos % (Auto) Baso % (Auto) Lymph # (Auto) Fleming # (Auto) Eos # (Auto) Baso # (Auto) Abs Immat Gran (auto) Absolute Neuts (auto) Absolute Nucleated RBC Nucleated RBC % (auto) Sodium Potassium Chloride Carbon Dioxide Anion Gap BUN Creatinine Estim Creat Clear Calc Estimated GFR POC Glucose 148 H 369 H* 403 H* Random Glucose Calcium Total Bilirubin AST ALT Alkaline Phosphatase Total Protein Albumin Urine Color Urine Appearance Urine pH Ur Specific [place] Urine Protein Urine Glucose (UA) Urine Ketones Urine Blood Urine Nitrite Ur Leukocyte Esterase Urine RBC Urine WBC Ur Squamous Epith Cells Urine Bacteria Hyaline Casts 12/29/23 12/29/23 12/29/23 05:58 11:08 11:58 WBC 3.5 L RBC 3.56 L Hgb 9.9 L Hct 30.9 L MCV 86.8 MCH 27.8 MCHC 32.0 RDW 14.6 Plt Count 75 L MPV 10.4 Immature Gran % (Auto) 0.6 H Neut % (Auto) 70.1 Lymph % (Auto) 20.3 Fleming % (Auto) 7.5 Eos % (Auto) 1.2 Baso % (Auto) 0.3 Lymph # (Auto) 0.7 L Fleming # (Auto) 0.3 Eos # (Auto) 0.0 Baso # (Auto) 0.0 Abs Immat Gran (auto) 0.02 Absolute Neuts (auto) 2.4 Absolute Nucleated RBC 0.000 Nucleated RBC % (auto) 0.0 Sodium 137 Potassium 4.8 Chloride 100 Carbon Dioxide 28 Anion Gap 14 BUN 40 H Creatinine 0.91 Estim Creat Clear Calc 36.4 Estimated GFR > 60 POC Glucose 168 H 300 H Random Glucose 364 H* Calcium 10.1 Total Bilirubin 0.3 AST 52 H ALT 47 H Alkaline Phosphatase 195 H Total Protein 8.6 H Albumin 3.4 L Urine Color Urine Appearance Urine pH Ur Specific [place] Urine Protein Urine Glucose (UA) Urine Ketones Urine Blood Urine Nitrite Ur Leukocyte Esterase Urine RBC Urine WBC Ur Squamous Epith Cells Urine Bacteria Hyaline Casts 12/29/23 12/29/23 12/29/23 16:31 17:30 19:53 WBC RBC Hgb Hct MCV MCH MCHC RDW Plt Count MPV Immature Gran % (Auto) Neut % (Auto) Lymph % (Auto) Fleming % (Auto) Eos % (Auto) Baso % (Auto) Lymph # (Auto) Fleming # (Auto) Eos # (Auto) Baso # (Auto) Abs Immat Gran (auto) Absolute Neuts (auto) Absolute Nucleated RBC Nucleated RBC % (auto) Sodium Potassium Chloride Carbon Dioxide Anion Gap BUN Creatinine Estim Creat Clear Calc Estimated GFR POC Glucose 285 H 242 H Random Glucose Calcium Total Bilirubin AST ALT Alkaline Phosphatase Total Protein Albumin Urine Color Yellow Urine Appearance Cloudy Urine pH 7.5 Ur Specific [place] 1.020 Urine Protein Trace Urine Glucose (UA) Negative Urine Ketones Negative Urine Blood Trace H Urine Nitrite Positive H Ur Leukocyte Esterase Large (3+) H Urine RBC 0-2 Urine WBC 21-50 Ur Squamous Epith Cells 0-2 Urine Bacteria 3+ Hyaline Casts 0-2 12/30/23 12/30/23 07:09 11:03 WBC RBC Hgb Hct MCV MCH MCHC RDW Plt Count MPV Immature Gran % (Auto) Neut % (Auto) Lymph % (Auto) Fleming % (Auto) Eos % (Auto) Baso % (Auto) Lymph # (Auto) Fleming # (Auto) Eos # (Auto) Baso # (Auto) Abs Immat Gran (auto) Absolute Neuts (auto) Absolute Nucleated RBC Nucleated RBC % (auto) Sodium Potassium Chloride Carbon Dioxide Anion Gap BUN Creatinine Estim Creat Clear Calc Estimated GFR POC Glucose 112 331 H Random Glucose Calcium Total Bilirubin AST ALT Alkaline Phosphatase Total Protein Albumin Urine Color Urine Appearance Urine pH Ur Specific [place] Urine Protein Urine Glucose (UA) Urine Ketones Urine Blood Urine Nitrite Ur Leukocyte Esterase Urine RBC Urine WBC Ur Squamous Epith Cells Urine Bacteria Hyaline Casts Imaging Radiology Impressions: ITS Impressions Chest X-Ray 12/03/23 12:20 IMPRESSION: 1. Chronic interstitial prominence without focal consolidative airspace opacity. 2. Densities along the left lower chest which may represent pleural calcifications versus soft tissue calcifications. Correlation with lateral radiograph could help further evaluate. Electronically signed by: Viral Smallwood MD 12/03/2023 01:33 PM EDT RP Head CT 12/03/23 13:17 IMPRESSION: 1. No acute intracranial abnormalities. No intracranial hemorrhage or mass effect. 2. Moderate small vessel ischemic changes in the hemispheric white matter. 3. 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 4. Age advanced cerebral and cerebellar involutional changes with prominent ventricles. Cannot definitively exclude a component of communicating hydrocephalus given the appearance. Head CT 12/10/23 21:05 IMPRESSION: No acute intracranial abnormality including hemorrhage, mass effect, hydrocephalus, or acute territorial edematous infarction. Electronically signed by: Juan Alberto Murdock MD 12/10/2023 10:07 PM EDT RP Medications Medications Current Medications Acetaminophen (Acetaminophen 325 Mg Tablet) 650 mg PO Q6H PRN PRN Reason: Headache/Pain Mild Scale (1-3) Acetaminophen (Acetaminophen 325 Mg Tablet) 650 mg PO ONCE PRN PRN Reason: Pain, Mild (Pain Scale 1-3) Stop: 12/30/23 13:06 Al Hydroxide/Mg Hydroxide (Magnesium Hydrox/Alum Hydrox 30 Ml Oral.Susp) 30 ml PO Q6H PRN PRN Reason: Heartburn/Nausea Amlodipine Besylate (Amlodipine Besylate 5 Mg Tablet) 5 mg PO DAILY [facility]; Protocol Last Admin: 12/30/23 09:25 Dose: 5 mg Anastrozole (Anastrozole 1 Mg Tablet) 1 mg PO DAILY [facility] Last Admin: 12/30/23 10:11 Dose: 1 mg Aspirin (Aspirin 81 Mg Tab.Chew) 81 mg PO DAILY [facility] Last Admin: 12/30/23 09:24 Dose: 81 mg Atorvastatin Calcium (Atorvastatin Calcium 10 Mg Tablet) 10 mg PO BEDTIME [facility] Last Admin: 12/29/23 20:26 Dose: 10 mg Cefuroxime Axetil (Cefuroxime Axetil 250 Mg Tablet) 250 mg PO BID [facility] Stop: 01/05/24 09:01 Last Admin: 12/30/23 09:24 Dose: 250 mg Ferrous Sulfate (Ferrous Sulfate 324 Mg Tablet.Dr) 324 mg PO DAILY [facility] Last Admin: 12/30/23 09:24 Dose: 324 mg Furosemide (Furosemide 20 Mg Tablet) 20 mg PO DAILY [facility]; Protocol Last Admin: 12/30/23 09:25 Dose: 20 mg Glucose (Glucose Gel 15 Gm Gel..Gram.) 15 gm PO Q15M PRN; Protocol PRN Reason: per Hypoglycemia Standing Ord. Insulin Glargine (Insulin Glargine,Hum.Rec.Anlog 100 Unit/Ml 10 Ml Vial) 8 unit SUBCUT BEDTIME [facility] Last Admin: 12/29/23 20:23 Dose: 8 unit Insulin Human Lispro (Insulin Lispro 100 Unit/Ml 3 Ml Vial) 0 unit SUBCUT QIDACHS [facility]; Protocol Last Admin: 12/30/23 10:10 Dose: Not Given Loratadine (Loratadine 10 Mg Tablet) 10 mg PO BEDTIME [facility] Last Admin: 12/29/23 20:26 Dose: 10 mg Losartan Potassium (Losartan Potassium 50 Mg Tablet) 100 mg PO DAILY [facility]; Protocol Last Admin: 12/30/23 09:26 Dose: 100 mg Magnesium Hydroxide (Milk Of Magnesia 30 Ml Oral.Susp) 30 ml PO DAILY PRN PRN Reason: Constipation Last Admin: 12/29/23 12:36 Dose: 30 ml Magnesium Oxide (Magnesium Oxide 400 Mg Tablet) 400 mg PO BID [facility] Last Admin: 12/30/23 09:25 Dose: 400 mg Mirtazapine (Mirtazapine 30 Mg Tablet) 30 mg PO BEDTIME [facility] Last Admin: 12/29/23 20:25 Dose: 30 mg Multivitamins/Vitamin C (Multivitamin Tablet) 1 tab PO DAILY [facility] Last Admin: 12/30/23 09:24 Dose: 1 tab Naloxone HCl (Naloxone Hcl 0.4 Mg/Ml Vial) 0.04 mg IVPUSH Q5M PRN PRN Reason: Excessive sedation or RR < 8 Naloxone HCl (Naloxone Hcl 0.4 Mg/Ml Vial) 0.04 mg IVPUSH Q5M PRN PRN Reason: Excessive sedation or RR < 8 Naloxone HCl (Naloxone Hcl 0.4 Mg/Ml Vial) 0.04 mg IVPUSH Q5M PRN PRN Reason: Excessive sedation or RR < 8 Nicotine Polacrilex (Nicotine Polacrilex 2 Mg Gum) 4 mg BUCCAL Q2H PRN PRN Reason: Nicotine Cravings Omeprazole (Omeprazole 20 Mg Capsule.Dr) 20 mg PO DAILY@0630 [facility] Last Admin: 12/30/23 05:16 Dose: Not Given Ondansetron HCl (Ondansetron Hcl 4 Mg/2 Ml Vial) 4 mg IVPUSH ONCE PRN PRN Reason: Nausea and Vomiting Stop: 12/30/23 13:06 Risperidone (Risperidone 0.5 Mg Tablet) 0.5 mg PO BID PRN PRN Reason: Restlessness Thiamine HCl (Thiamine Hcl 100 Mg Tablet) 100 mg PO DAILY [facility] Last Admin: 12/30/23 09:24 Dose: 100 mg Trazodone HCl (Trazodone Hcl 50 Mg Tablet) 50 mg PO BEDTIME PRN PRN Reason: Insomnia Last Admin: 12/27/23 20:42 Dose: 50 mg Valproic Acid (Valproic Acid (As Sodium Salt) 250 Mg/5 Ml Solution) 250 mg PO BID [facility] Last Admin: 12/30/23 09:24 Dose: 250 mg Allergies Allergies Allergy/AdvReac Type Severity Reaction Status Date / Time atropine Allergy Unknown Shortness Verified 12/02/23 23:30 of Breath enoxaparin [From Lovenox] Allergy Unknown Unknown Verified 12/02/23 23:30 penicillin V Allergy Unknown Unknown Verified 03/19/23 07:30 pseudoephedrine [Aprodine] Allergy Unknown Unknown Verified 03/19/23 07:30 triprolidine [Aprodine] Allergy Unknown Unknown Verified 03/19/23 07:30 Assessment & Plan Assessment & Plan (1) Major depressive disorder with psychotic features: Status: Acute Code(s): F32.3 - Major depressive disorder, single episode, severe with psychotic features Assessment and Plan: 12/15/23: Continue tx plan Plan 73-year-old female with history of insulin-dependent type 2 diabetes, hypertension, hyperlipidemia, history of C diff colitis, hypothyroidism, heart failure preserved ejection fraction, cirrhosis admitted to [facility] for catatonia with consult placed to hospitalist service for ect risk stratification. Pt with class II risk on revised cardiac risk index given history of CHF though is clinically euvolemic on exam. Lungs are clear. Has known but no murmurs heard on exam. Would recommend checking EKG to assess for ECT prolongation prior to ECT treatment. Unable to assess ROS. Based on RCRI and known history of ECT with good tolerance there does not appear to be any acute medical contraindication that should preclude patient from undergoing ect. Appropriate anesthesia precautions should be taken given known history of BASIL. Plan 1. Continue with antibiotics since the patient has been diagnosed with a UTI. 2. Continue with same treatment. 3. continue with ECT 4. Family meeting Reason for continued inpatient stay Substantial Risk for: inability to function, rapid decompensation and med/psych decompensation Time Spent With Patient Time: Total time managing care of this patient today _20___ minutes.
[2023-12-30] MEDS: Insulin Lispro 100 UNIT/ML 3 ML VIAL SUBCUT ×3 (11:42→21:56)
[2023-12-30 16:41] LABS: Glucose, Whole Blood 459 mg/dL (60-115)
[2023-12-30 19:49] LABS: Glucose, Whole Blood 424 mg/dL (60-115)
[2023-12-30] MEDS: Loratadine 10 MG TABLET PO (21:56)
[2023-12-30] MEDS: Mirtazapine 30 MG TABLET PO (21:56)
[2023-12-30] MEDS: traZODone HCL 50 MG TABLET PO (21:56)
[2023-12-30] MEDS: Atorvastatin Calcium 10 MG TABLET PO (21:56)
[2023-12-30] MEDS: Insulin Glargine,Hum.rec.anlog 100 UNIT/ML 10 ML VIAL 8 UNIT SUBCUT (21:57)
--- NOTE | 2023-12-31 | ECG_ITS ---
Test Reason : ARM PAIN Blood Pressure : / mmHG Vent. Rate : 065 BPM Atrial Rate : 065 BPM P-R Int : 142 ms QRS Dur : 090 ms QT Int : 406 ms P-R-T Axes : 025 -09 037 degrees QTc Int : 422 ms Normal sinus rhythm Minimal voltage criteria for LVH, may be normal variant ( Kofi product ) Nonspecific ST abnormality Abnormal ECG When compared with ECG of 11-DEC-2023 00:36, ST more elevated in Lateral leads Referred By: Zander Yung Electronically Signed By:JW SPENCER
[2023-12-31] MEDS: Acetaminophen 325 MG TABLET 650 MG PO ×3 (03:04→17:05)
[2023-12-31 06:45] LABS: Glucose, Whole Blood 232 mg/dL (60-115)
[2023-12-31 08:30] VITALS: BP 110/57; PULSE 63; RESP 16; TEMP 36.4; O2SAT 95
[2023-12-31] MEDS: Anastrozole 1 MG TABLET PO (09:01)
[2023-12-31] MEDS: cefuroxime axetiL 250 MG TABLET PO ×2 (09:02→20:20)
[2023-12-31] MEDS: Aspirin 81 MG TAB.CHEW PO (09:02)
[2023-12-31 11:34] LABS: Glucose, Whole Blood 349 mg/dL (60-115)
--- NOTE | 2023-12-31 11:37 | HO.POSTANES ---
Post Anesthesia Evaluation Post Anesthesia Evaluation Date of Service: 12/31/23 Vital Signs: Vital Signs Temp Pulse Resp BP Pulse Ox O2 Del Method 12/31/23 08:30 97.6 F 63 16 110/57 L 95 Room Air Anesthesia: General Mental Status: Awake Pain Control: Satisfactory Nausea/Vomiting: None Hydration: Adequate Anesthesia-Related Issues: No Anes. Related Issues
[2023-12-31] MEDS: Insulin Lispro 100 UNIT/ML 3 ML VIAL SUBCUT ×3 (11:44→20:19)
--- NOTE | 2023-12-31 12:11 | P.PNPSI_ITS ---
Subjective Subjective Date of Service: 12/31/23 Reason For Visit: Major depressive disorder, severe, recurrent Subjective Notes: Conditional Voluntary Healthcare Proxy: Yes Interim History: The nursing staff reported the patient had been more awake after the ECT, she fed herself. She walks with the help of staff. The bilingual social worker called her son so we will have a family meeting at 15:00 and for discharge plan. On interview the patient denies new symptoms cooperative and pleasant much better after ECT. She complained of pain on her hand. Mental Status Exam Mental Status Exam Patient Appearance: Appropriate Patient Orientation: Person and Situation Level of Consciousness: Awake and Appropriate Patient Behavior: Guarded and Passive Mood Description: Withdrawn Affect Description: Constricted Patient Cognition Impaired: Yes Ability to Follow Directions: Good Speech Pattern: Clear Hallucinations: None Delusions: Not Present Thought Process: Distracted and Slowed Thinking Thought Content: positive for [place] and positive for Poverty of Content Judgement: Poor Diagnostics Vital Signs (24Hr): Vital Signs - 24 hr 12/30/23 20:00 12/31/23 08:30 Temperature 97.7 F 97.6 F Pulse Rate 77 63 Respiratory Rate 18 16 Blood Pressure 111/55 L 110/57 L Pulse Oximetry 97 95 Oxygen Delivery Method Room Air Room Air BMI result Body Mass Index 21.7 Labs 12/29/23 11:58 12/29/23 11:58 Labs: Laboratory Results - last 48 hr 12/29/23 12/29/23 12/29/23 11:58 16:31 17:30 Sodium 137 Potassium 4.8 Chloride 100 Carbon Dioxide 28 Anion Gap 14 BUN 40 H Creatinine 0.91 Estim Creat Clear Calc 36.4 Estimated GFR > 60 POC Glucose 285 H Random Glucose 364 H* Calcium 10.1 Total Bilirubin 0.3 AST 52 H ALT 47 H Alkaline Phosphatase 195 H Total Protein 8.6 H Albumin 3.4 L Urine Color Yellow Urine Appearance Cloudy Urine pH 7.5 Ur Specific [place] 1.020 Urine Protein Trace Urine Glucose (UA) Negative Urine Ketones Negative Urine Blood Trace H Urine Nitrite Positive H Ur Leukocyte Esterase Large (3+) H Urine RBC 0-2 Urine WBC 21-50 Ur Squamous Epith Cells 0-2 Urine Bacteria 3+ Hyaline Casts 0-2 12/29/23 12/30/23 12/30/23 19:53 07:09 11:03 Sodium Potassium Chloride Carbon Dioxide Anion Gap BUN Creatinine Estim Creat Clear Calc Estimated GFR POC Glucose 242 H 112 331 H Random Glucose Calcium Total Bilirubin AST ALT Alkaline Phosphatase Total Protein Albumin Urine Color Urine Appearance Urine pH Ur Specific [place] Urine Protein Urine Glucose (UA) Urine Ketones Urine Blood Urine Nitrite Ur Leukocyte Esterase Urine RBC Urine WBC Ur Squamous Epith Cells Urine Bacteria Hyaline Casts 12/30/23 12/30/23 12/31/23 16:34 19:41 06:31 Sodium Potassium Chloride Carbon Dioxide Anion Gap BUN Creatinine Estim Creat Clear Calc Estimated GFR POC Glucose 459 H* 424 H* 232 H Random Glucose Calcium Total Bilirubin AST ALT Alkaline Phosphatase Total Protein Albumin Urine Color Urine Appearance Urine pH Ur Specific [place] Urine Protein Urine Glucose (UA) Urine Ketones Urine Blood Urine Nitrite Ur Leukocyte Esterase Urine RBC Urine WBC Ur Squamous Epith Cells Urine Bacteria Hyaline Casts 12/31/23 11:29 Sodium Potassium Chloride Carbon Dioxide Anion Gap BUN Creatinine Estim Creat Clear Calc Estimated GFR POC Glucose 349 H Random Glucose Calcium Total Bilirubin AST ALT Alkaline Phosphatase Total Protein Albumin Urine Color Urine Appearance Urine pH Ur Specific [place] Urine Protein Urine Glucose (UA) Urine Ketones Urine Blood Urine Nitrite Ur Leukocyte Esterase Urine RBC Urine WBC Ur Squamous Epith Cells Urine Bacteria Hyaline Casts Imaging Radiology Impressions: ITS Impressions Chest X-Ray 12/03/23 12:20 IMPRESSION: 1. Chronic interstitial prominence without focal consolidative airspace opacity. 2. Densities along the left lower chest which may represent pleural calcifications versus soft tissue calcifications. Correlation with lateral radiograph could help further evaluate. Electronically signed by: Viral Smallwood MD 12/03/2023 01:[address] 12/03/23 13:17 IMPRESSION: 1. No acute intracranial abnormalities. No intracranial hemorrhage or mass effect. 2. Moderate small vessel ischemic changes in the hemispheric white matter. 3. 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 4. Age advanced cerebral and cerebellar involutional changes with prominent ventricles. Cannot definitively exclude a component of communicating hydrocephalus given the appearance. Head CT 12/10/23 21:05 IMPRESSION: No acute intracranial abnormality including hemorrhage, mass effect, hydrocephalus, or acute territorial edematous infarction. Electronically signed by: Juan Alberto Murdock MD 12/10/2023 10:07 PM EDT RP Medications Medications Current Medications Acetaminophen (Acetaminophen 325 Mg Tablet) 650 mg PO Q6H PRN PRN Reason: Headache/Pain Mild Scale (1-3) Last Admin: 12/31/23 09:01 Dose: 650 mg Al Hydroxide/Mg Hydroxide (Magnesium Hydrox/Alum Hydrox 30 Ml Oral.Susp) 30 ml PO Q6H PRN PRN Reason: Heartburn/Nausea Amlodipine Besylate (Amlodipine Besylate 5 Mg Tablet) 5 mg PO DAILY [facility]; Protocol Last Admin: 12/31/23 10:11 Dose: Not Given Anastrozole (Anastrozole 1 Mg Tablet) 1 mg PO DAILY [facility] Last Admin: 12/31/23 09:01 Dose: 1 mg Aspirin (Aspirin 81 Mg Tab.Chew) 81 mg PO DAILY [facility] Last Admin: 12/31/23 09:02 Dose: 81 mg Atorvastatin Calcium (Atorvastatin Calcium 10 Mg Tablet) 10 mg PO BEDTIME [facility] Last Admin: 12/30/23 21:56 Dose: 10 mg Cefuroxime Axetil (Cefuroxime Axetil 250 Mg Tablet) 250 mg PO BID [facility] Stop: 01/05/24 09:01 Last Admin: 12/31/23 09:02 Dose: 250 mg Ferrous Sulfate (Ferrous Sulfate 324 Mg Tablet.Dr) 324 mg PO DAILY [facility] Last Admin: 12/31/23 10:12 Dose: Not Given Furosemide (Furosemide 20 Mg Tablet) 20 mg PO DAILY [facility]; Protocol Last Admin: 12/31/23 10:12 Dose: Not Given Glucose (Glucose Gel 15 Gm Gel..Gram.) 15 gm PO Q15M PRN; Protocol PRN Reason: per Hypoglycemia Standing Ord. Insulin Glargine (Insulin Glargine,Hum.Rec.Anlog 100 Unit/Ml 10 Ml Vial) 8 unit SUBCUT BEDTIME [facility] Last Admin: 12/30/23 21:57 Dose: 8 unit Insulin Human Lispro (Insulin Lispro 100 Unit/Ml 3 Ml Vial) 0 unit SUBCUT QIDACHS [facility]; Protocol Last Admin: 12/31/23 11:44 Dose: 10 unit Loratadine (Loratadine 10 Mg Tablet) 10 mg PO BEDTIME [facility] Last Admin: 12/30/23 21:56 Dose: 10 mg Losartan Potassium (Losartan Potassium 50 Mg Tablet) 100 mg PO DAILY [facility]; Protocol Last Admin: 12/31/23 10:12 Dose: Not Given Magnesium Hydroxide (Milk Of Magnesia 30 Ml Oral.Susp) 30 ml PO DAILY PRN PRN Reason: Constipation Last Admin: 12/29/23 12:36 Dose: 30 ml Magnesium Oxide (Magnesium Oxide 400 Mg Tablet) 400 mg PO BID [facility] Last Admin: 12/31/23 10:12 Dose: Not Given Mirtazapine (Mirtazapine 30 Mg Tablet) 30 mg PO BEDTIME [facility] Last Admin: 12/30/23 21:56 Dose: 30 mg Multivitamins/Vitamin C (Multivitamin Tablet) 1 tab PO DAILY [facility] Last Admin: 12/31/23 10:12 Dose: Not Given Naloxone HCl (Naloxone Hcl 0.4 Mg/Ml Vial) 0.04 mg IVPUSH Q5M PRN PRN Reason: Excessive sedation or RR < 8 Naloxone HCl (Naloxone Hcl 0.4 Mg/Ml Vial) 0.04 mg IVPUSH Q5M PRN PRN Reason: Excessive sedation or RR < 8 Naloxone HCl (Naloxone Hcl 0.4 Mg/Ml Vial) 0.04 mg IVPUSH Q5M PRN PRN Reason: Excessive sedation or RR < 8 Nicotine Polacrilex (Nicotine Polacrilex 2 Mg Gum) 4 mg BUCCAL Q2H PRN PRN Reason: Nicotine Cravings Omeprazole (Omeprazole 20 Mg Capsule.Dr) 20 mg PO DAILY@0630 [facility] Last Admin: 12/31/23 05:57 Dose: Not Given Risperidone (Risperidone 0.5 Mg Tablet) 0.5 mg PO BID PRN PRN Reason: Restlessness Thiamine HCl (Thiamine Hcl 100 Mg Tablet) 100 mg PO DAILY [facility] Last Admin: 12/31/23 10:13 Dose: Not Given Trazodone HCl (Trazodone Hcl 50 Mg Tablet) 50 mg PO BEDTIME PRN PRN Reason: Insomnia Last Admin: 12/30/23 21:56 Dose: 50 mg Valproic Acid (Valproic Acid (As Sodium Salt) 250 Mg/5 Ml Solution) 250 mg PO BID [facility] Last Admin: 12/31/23 09:01 Dose: 250 mg Allergies Allergies Allergy/AdvReac Type Severity Reaction Status Date / Time atropine Allergy Unknown Shortness Verified 12/02/23 23:30 of Breath enoxaparin [From Lovenox] Allergy Unknown Unknown Verified 12/02/23 23:30 penicillin V Allergy Unknown Unknown Verified 03/19/23 07:30 pseudoephedrine [Aprodine] Allergy Unknown Unknown Verified 03/19/23 07:30 triprolidine [Aprodine] Allergy Unknown Unknown Verified 03/19/23 07:30 Assessment & Plan Assessment & Plan (1) Major depressive disorder with psychotic features: Status: Acute Code(s): F32.3 - Major depressive disorder, single episode, severe with psychotic features Assessment and Plan: 12/15/23: Continue tx plan Plan 73-year-old female with history of insulin-dependent type 2 diabetes, hypertension, hyperlipidemia, history of C diff colitis, hypothyroidism, heart failure preserved ejection fraction, cirrhosis admitted to [facility] for catatonia with consult placed to hospitalist service for ect risk stratification. Pt with class II risk on revised cardiac risk index given history of CHF though is clinically euvolemic on exam. Lungs are clear. Has known but no murmurs heard on exam. Would recommend checking EKG to assess for ECT prolongation prior to ECT treatment. Unable to assess ROS. Based on RCRI and known history of ECT with good tolerance there does not appear to be any acute medical contraindication that should preclude patient from undergoing ect. Appropriate anesthesia precautions should be taken given known history of BASIL. Plan 1. Continue with antibiotics since the patient has been diagnosed with a UTI. 2. Continue with same treatment. 3. continue with ECT 4. Family meeting Reason for continued inpatient stay Substantial Risk for: inability to function, rapid decompensation and med/psych decompensation Time Spent With Patient Time: Total time managing care of this patient today _20___ minutes.
[2023-12-31 16:33] LABS: Glucose, Whole Blood 345 mg/dL (60-115)
[2023-12-31 19:51] LABS: Glucose, Whole Blood 385 mg/dL (60-115)
[2023-12-31 20:00] VITALS: BP 121/98; PULSE 78; RESP 16; TEMP 528.3; TEMP 983; O2SAT 96
[2023-12-31] MEDS: Insulin Glargine,Hum.rec.anlog 100 UNIT/ML 10 ML VIAL 8 UNIT SUBCUT (20:19)
[2023-12-31] MEDS: Atorvastatin Calcium 10 MG TABLET PO (20:21)
[2023-12-31] MEDS: Loratadine 10 MG TABLET PO (20:21)
[2023-12-31] MEDS: Magnesium Oxide 400 MG TABLET PO (20:21)
[2023-12-31] MEDS: Mirtazapine 30 MG TABLET PO (20:21)
[2024-01-01] VITALS (10 sets, daily range): BP systolic 117–155; BP diastolic 57–85; PULSE 71–113; RESP 16–20; TEMP 36–37.1; O2SAT 94–98
[2024-01-01 05:42] LABS: Glucose, Whole Blood 207 mg/dL (60-115)
--- NOTE | 2024-01-01 07:03 | MHC.SHP ---
Pre-Procedural Eval Section A - 24 Hr Update-Section A only Date of Service: 01/01/24 The patient is an INPATIENT: Yes Changes since office visit: No Cold of Flu in the past 2 weeks, No New Medical Problems, No Changes in Medication and No Patient answered all questions The patient has been examined within 24 hours of the surgical procedure. The History & Physical has been completed within 30 days and I have reviewed it.: Yes Section B - Complete if H&P > 30 days Chief Complaint: Major depressive disorder, severe, recurrent Allergies: Allergies Allergy/AdvReac Type Severity Reaction Status Date / Time atropine Allergy Unknown Shortness Verified 12/02/23 23:30 of Breath enoxaparin [From Lovenox] Allergy Unknown Unknown Verified 12/02/23 23:30 penicillin V Allergy Unknown Unknown Verified 03/19/23 07:30 pseudoephedrine [Aprodine] Allergy Unknown Unknown Verified 03/19/23 07:30 triprolidine [Aprodine] Allergy Unknown Unknown Verified 03/19/23 07:30 Plan I have reviewed the history and physical and performed a pertinent physical examination on my patient. No changes have occurred unless specified. Time Spent With Patient Time: Total time managing care of this patient today ____ minutes.
--- NOTE | 2024-01-01 07:04 | HO.ANESPROP2 ---
HPI - Anesthesia Eval Consult details Narrative: for ECT PMFSH Active Problems Active Problems: All Active Problems Hx of Clostridium difficile infection (Acute) Preoperative cardiovascular examination (Acute) Catatonia (Acute) Fixed constriction of pupil (Acute) Major depressive disorder with psychotic features (Acute) Dark stools (Acute) Routine medical exam (Acute) Essential hypertension (Acute) Type 2 diabetes mellitus with unspecified complications (Acute) Aortic valve sclerosis (Acute) Murmur (Acute) CKD (chronic kidney disease) stage 3, GFR 30-59 ml/min (Acute) Vitamin D deficiency (Acute) HLD (hyperlipidemia) (Acute) HTN (hypertension) (Acute) T2DM (type 2 diabetes mellitus) (Acute) Past Medical History Medical History Cirrhosis Hypothyroidism Breast cancer Hx of Clostridium difficile infection (HFpEF) heart failure with preserved ejection fraction Murmur CKD (chronic kidney disease) stage 3, GFR 30-59 ml/min Vitamin D deficiency HLD (hyperlipidemia) HTN (hypertension) T2DM (type 2 diabetes mellitus) Functional capacity: independent ambulation Family History Family History Father Alzheimer disease Stroke Mother Breast cancer Family history of problems with anesthesia: No Surgical History Surgical History Hx of cataract surgery History of lumpectomy of right breast History of mastectomy History of Problems with Anesthesia: No Social History Social History Household Members: Family Household Members Other:: son Alcohol intake: never Patient Tobacco Use Status: Never used Tobacco Use of substances other than those prescribed or required for medical reasons: Unable to respond Last Used Substance Other:: unknown, unable to respond, she is nonsensical and delusional when she does Currently Displaying Signs/Symptoms of Drug Intoxication Withdrawal: No Other Past Substance Use Problem:: unknown, unable to respond, she is nonsensical and delusional when she does Spiritual Healthcare Practices: unknown, unable to respond, she is nonsensical and delusional when she does respond Church Healthcare Practices: unknown, unable to respond, she is nonsensical and delusional when she does respond Cultural Healthcare Practices: unknown, unable to respond, she is nonsensical and delusional when she does respond Advance Directives: No Advance Directives Information Provided: No Do you have thoughts of harming others: None Do you have a plan to hurt others: No Plan Recently lost weight without trying: Unsure Patient : No : No Poor oral hygiene: No service: No Sexual orientation: Straight/Heterosexual Meds Allergies Allergy/AdvReac Type Severity Reaction Status Date / Time atropine Allergy Unknown Shortness Verified 12/02/23 23:30 of Breath enoxaparin [From Lovenox] Allergy Unknown Unknown Verified 12/02/23 23:30 penicillin V Allergy Unknown Unknown Verified 03/19/23 07:30 pseudoephedrine [Aprodine] Allergy Unknown Unknown Verified 03/19/23 07:30 triprolidine [Aprodine] Allergy Unknown Unknown Verified 03/19/23 07:30 Active Medications: Current Medications Acetaminophen (Acetaminophen 325 Mg Tablet) 650 mg PO Q6H PRN PRN Reason: Headache/Pain Mild Scale (1-3) Last Admin: 12/31/23 17:05 Dose: 650 mg Al Hydroxide/Mg Hydroxide (Magnesium Hydrox/Alum Hydrox 30 Ml Oral.Susp) 30 ml PO Q6H PRN PRN Reason: Heartburn/Nausea Amlodipine Besylate (Amlodipine Besylate 5 Mg Tablet) 5 mg PO DAILY [facility]; Protocol Last Admin: 12/31/23 10:11 Dose: Not Given Anastrozole (Anastrozole 1 Mg Tablet) 1 mg PO DAILY [facility] Last Admin: 12/31/23 09:01 Dose: 1 mg Aspirin (Aspirin 81 Mg Tab.Chew) 81 mg PO DAILY [facility] Last Admin: 12/31/23 09:02 Dose: 81 mg Atorvastatin Calcium (Atorvastatin Calcium 10 Mg Tablet) 10 mg PO BEDTIME [facility] Last Admin: 12/31/23 20:21 Dose: 10 mg Cefuroxime Axetil (Cefuroxime Axetil 250 Mg Tablet) 250 mg PO BID [facility] Stop: 01/05/24 09:01 Last Admin: 12/31/23 20:20 Dose: 250 mg Ferrous Sulfate (Ferrous Sulfate 324 Mg Tablet.Dr) 324 mg PO DAILY [facility] Last Admin: 12/31/23 10:12 Dose: Not Given Furosemide (Furosemide 20 Mg Tablet) 20 mg PO DAILY [facility]; Protocol Last Admin: 12/31/23 10:12 Dose: Not Given Glucose (Glucose Gel 15 Gm Gel..Gram.) 15 gm PO Q15M PRN; Protocol PRN Reason: per Hypoglycemia Standing Ord. Insulin Glargine (Insulin Glargine,Hum.Rec.Anlog 100 Unit/Ml 10 Ml Vial) 8 unit SUBCUT BEDTIME [facility] Last Admin: 12/31/23 20:19 Dose: 8 unit Insulin Human Lispro (Insulin Lispro 100 Unit/Ml 3 Ml Vial) 0 unit SUBCUT QIDACHS [facility]; Protocol Last Admin: 12/31/23 20:19 Dose: 12 unit Loratadine (Loratadine 10 Mg Tablet) 10 mg PO BEDTIME [facility] Last Admin: 12/31/23 20:21 Dose: 10 mg Losartan Potassium (Losartan Potassium 50 Mg Tablet) 100 mg PO DAILY [facility]; Protocol Last Admin: 12/31/23 10:12 Dose: Not Given Magnesium Hydroxide (Milk Of Magnesia 30 Ml Oral.Susp) 30 ml PO DAILY PRN PRN Reason: Constipation Last Admin: 12/29/23 12:36 Dose: 30 ml Magnesium Oxide (Magnesium Oxide 400 Mg Tablet) 400 mg PO BID [facility] Last Admin: 12/31/23 20:21 Dose: 400 mg Mirtazapine (Mirtazapine 30 Mg Tablet) 30 mg PO BEDTIME [facility] Last Admin: 12/31/23 20:21 Dose: 30 mg Multivitamins/Vitamin C (Multivitamin Tablet) 1 tab PO DAILY [facility] Last Admin: 12/31/23 10:12 Dose: Not Given Naloxone HCl (Naloxone Hcl 0.4 Mg/Ml Vial) 0.04 mg IVPUSH Q5M PRN PRN Reason: Excessive sedation or RR < 8 Naloxone HCl (Naloxone Hcl 0.4 Mg/Ml Vial) 0.04 mg IVPUSH Q5M PRN PRN Reason: Excessive sedation or RR < 8 Naloxone HCl (Naloxone Hcl 0.4 Mg/Ml Vial) 0.04 mg IVPUSH Q5M PRN PRN Reason: Excessive sedation or RR < 8 Nicotine Polacrilex (Nicotine Polacrilex 2 Mg Gum) 4 mg BUCCAL Q2H PRN PRN Reason: Nicotine Cravings Omeprazole (Omeprazole 20 Mg Capsule.Dr) 20 mg PO DAILY@0630 [facility] Last Admin: 01/01/24 05:49 Dose: Not Given Risperidone (Risperidone 0.5 Mg Tablet) 0.5 mg PO BID PRN PRN Reason: Restlessness Thiamine HCl (Thiamine Hcl 100 Mg Tablet) 100 mg PO DAILY [facility] Last Admin: 12/31/23 10:13 Dose: Not Given Trazodone HCl (Trazodone Hcl 50 Mg Tablet) 50 mg PO BEDTIME PRN PRN Reason: Insomnia Last Admin: 12/30/23 21:56 Dose: 50 mg Valproic Acid (Valproic Acid (As Sodium Salt) 250 Mg/5 Ml Solution) 250 mg PO BID [facility] Last Admin: 12/31/23 20:21 Dose: 250 mg Home Medications ?Medication ?Instructions ?Recorded ?Confirmed ?Last Taken ?Type ascorbate calcium (vitamin C) 500 500 mg PO DAILY 03/24/20 11/20/22 Unknown History mg tablet fluoxetine 20 mg capsule 40 mg PO DAILY 03/24/20 11/20/22 Unknown History levothyroxine 100 mcg tablet 100 mcg PO QAM 03/24/20 11/20/22 Unknown History mirtazapine 30 mg tablet 30 mg PO BEDTIME 03/24/20 11/20/22 Unknown History omeprazole 20 mg capsule,delayed 20 mg PO DAILY 03/24/20 11/20/22 Unknown History release risperidone 1 mg tablet 1 mg PO BEDTIME 03/24/20 11/20/22 Unknown History insulin glargine 100 unit/mL (3 30 unit subcut BEDTIME 09/28/20 11/20/22 Unknown History mL) subcutaneous pen anastrozole 1 mg tablet 1 mg PO DAILY 02/16/21 11/20/22 Unknown History dapagliflozin propanediol 10 mg 10 mg PO QAM 05/08/21 11/20/22 Unknown History tablet (Farxiga) losartan 50 mg tablet 50 mg PO DAILY 09/14/21 11/20/22 Unknown History amlodipine 5 mg tablet 5 mg PO QAM 12/02/23 12/02/23 Unknown History anastrozole 1 mg tablet 1 mg PO DAILY 12/02/23 12/02/23 Unknown History aspirin 81 mg chewable tablet 1 tab PO QAM 12/02/23 12/02/23 Unknown History cetirizine 5 mg tablet 5 mg PO BEDTIME 12/02/23 12/02/23 Unknown History divalproex 500 mg tablet,delayed 500 mg PO BEDTIME 12/02/23 12/02/23 Unknown History release ferrous sulfate 325 mg (65 mg 325 mg PO QAM 12/02/23 12/02/23 Unknown History iron) tablet (FeroSul) furosemide 20 mg tablet (Lasix) 20 mg PO DAILY 12/02/23 12/02/23 Unknown History insulin glargine 100 unit/mL 6 unit subcut BEDTIME 12/02/23 12/02/23 Unknown History subcutaneous solution insulin lispro 100 unit/mL 1 sliding scale dose subcut 12/02/23 12/02/23 Unknown History subcutaneous solution USEASDIRECTD levetiracetam 500 mg tablet 500 mg PO BID 12/02/23 12/02/23 Unknown History losartan 100 mg tablet 100 mg PO DAILY 12/02/23 12/02/23 Unknown History losartan 100 mg tablet 100 mg PO DAILY 12/02/23 12/02/23 Unknown History magnesium oxide 400 mg PO BID 12/02/23 12/02/23 Unknown History mirtazapine 30 mg disintegrating 30 mg PO BEDTIME 12/02/23 12/02/23 Unknown History tablet multivitamin with minerals 1 tab PO DAILY 12/02/23 12/02/23 Unknown History pantoprazole 40 mg tablet,delayed 40 mg PO DAILY 12/02/23 12/02/23 Unknown History release risperidone 0.5 mg tablet 0.5 mg PO BID PRN Agitation 12/02/23 12/02/23 Unknown History risperidone 2 mg tablet 2 mg PO BID 12/02/23 12/02/23 Unknown History simvastatin 20 mg tablet 20 mg PO BEDTIME 12/02/23 12/02/23 Unknown History thiamine HCl (vitamin B1) 100 mg 100 mg PO QAM 12/02/23 12/02/23 Unknown History tablet trazodone 50 mg tablet 50 mg PO BEDTIME PRN insomnia 12/02/23 12/02/23 Unknown History vancomycin 125 mg capsule See Rx Instructions .Route .COMPLEX 12/02/23 12/02/23 Unknown History (Vancocin) Exam Height,Weight and Vital Signs: Height 4 ft 11 in Weight 48.807 kg Last Vital Signs Temp 96.8 F 01/01/24 06:32 Pulse 71 01/01/24 06:32 Resp 16 01/01/24 06:32 BP 135/63 01/01/24 06:32 Pulse Ox 98 01/01/24 06:32 O2 Del Method Room Air 01/01/24 06:32 O2 Flow Rate 2 12/30/23 07:39 Pertinent Lab Results Pertinent Lab Results: Laboratory Tests 12/02/23 12/03/23 12/03/23 22:55 06:35 08:01 WBC RBC Hgb Hct MCV MCH MCHC RDW Plt Count MPV Immature Gran % (Auto) Neut % (Auto) Lymph % (Auto) [place] % (Auto) Eos % (Auto) Baso % (Auto) Lymph # (Auto) [place] # (Auto) Eos # (Auto) Baso # (Auto) Abs Immat Gran (auto) Absolute Neuts (auto) Absolute Nucleated RBC Nucleated RBC % (auto) Sodium 134 L Potassium 4.0 Chloride 98 Carbon Dioxide 27 Anion Gap 13 BUN 21 H Creatinine 0.88 Estim Creat Clear Calc TNP Estimated GFR > 60 POC Glucose 296 H 212 H Random Glucose Fasting Glucose 236 H Estimat Average Glucose 169 Hemoglobin A1c % 7.5 H Calcium 10.2 Total Bilirubin 0.5 Direct Bilirubin AST 19 ALT 16 Alkaline Phosphatase 93 Ammonia Total Protein 8.7 H Albumin 3.5 Triglycerides 105 Cholesterol 182 LDL Cholesterol, Calc 93 HDL Cholesterol 68 Vitamin B12 Folate TSH Urine Color Urine Appearance Urine pH Ur Specific [place] Urine Protein Urine Glucose (UA) Urine Ketones Urine Blood Urine Nitrite Ur Leukocyte Esterase Urine RBC Urine WBC Ur Squamous Epith Cells Urine Bacteria Hyaline Casts Granular Casts Urine Yeast Stool Occult Blood Stl C. cayetanensis PCR Stool Rotavirus A PCR Stl Adenov F 40/41 PCR Stool Astrovirus (PCR) Stool Campylobacter PCR Stool Cryptosporidium PCR Stl Sh Tox Pr E STEC PCR Stool E coli O157 PCR Stl Enterotoxigenic E PCR Stool EPEC (PCR) Stool EAEC (PCR) Stl E. histolytica PCR Stool Giardia Lamblia PCR Stl P. shigelloides PCR Stool Salmonella PCR Stool Sapovirus (PCR) Stl Shigella/EIEC PCR St Y.enterocolitica PCR Stool Vibrio (PCR) Stl Vibrio cholerae PCR Stl Norovirus GI/GII PCR Valproic Acid C. difficile Tox B Gene C. difficile Toxin A&B C. difficile Interpret 12/03/23 12/03/23 12/03/23 10:29 11:31 11:45 WBC 4.6 L RBC 3.96 L Hgb 10.9 L Hct 33.1 L MCV 83.6 MCH 27.5 MCHC 32.9 RDW 14.9 Plt Count 116 L MPV 9.5 Immature Gran % (Auto) 0.2 Neut % (Auto) 70.4 Lymph % (Auto) 17.7 L [place] % (Auto) 10.4 Eos % (Auto) 1.1 Baso % (Auto) 0.2 Lymph # (Auto) 0.8 L [place] # (Auto) 0.5 Eos # (Auto) 0.1 Baso # (Auto) 0.0 Abs Immat Gran (auto) 0.01 Absolute Neuts (auto) 3.3 Absolute Nucleated RBC 0.000 Nucleated RBC % (auto) 0.0 Sodium Potassium Chloride Carbon Dioxide Anion Gap BUN Creatinine Estim Creat Clear Calc Estimated GFR POC Glucose 234 H Random Glucose Fasting Glucose Estimat Average Glucose Hemoglobin A1c % Calcium Total Bilirubin Direct Bilirubin AST ALT Alkaline Phosphatase Ammonia 55 Total Protein Albumin Triglycerides Cholesterol LDL Cholesterol, Calc HDL Cholesterol Vitamin B12 Folate TSH Urine Color Urine Appearance Urine pH Ur Specific [place] Urine Protein Urine Glucose (UA) Urine Ketones Urine Blood Urine Nitrite Ur Leukocyte Esterase Urine RBC Urine WBC Ur Squamous Epith Cells Urine Bacteria Hyaline Casts Granular Casts Urine Yeast Stool Occult Blood Stl C. cayetanensis PCR Stool Rotavirus A PCR Stl Adenov F 40/41 PCR Stool Astrovirus (PCR) Stool Campylobacter PCR Stool Cryptosporidium PCR Stl Sh Tox Pr E STEC PCR Stool E coli O157 PCR Stl Enterotoxigenic E PCR Stool EPEC (PCR) Stool EAEC (PCR) Stl E. histolytica PCR Stool Giardia Lamblia PCR Stl P. shigelloides PCR Stool Salmonella PCR Stool Sapovirus (PCR) Stl Shigella/EIEC PCR St Y.enterocolitica PCR Stool Vibrio (PCR) Stl Vibrio cholerae PCR Stl Norovirus GI/GII PCR Valproic Acid C. difficile Tox B Gene C. difficile Toxin A&B C. difficile Interpret 12/03/23 12/03/23 12/03/23 16:05 16:31 17:30 WBC RBC Hgb Hct MCV MCH MCHC RDW Plt Count MPV Immature Gran % (Auto) Neut % (Auto) Lymph % (Auto) [place] % (Auto) Eos % (Auto) Baso % (Auto) Lymph # (Auto) [place] # (Auto) Eos # (Auto) Baso # (Auto) Abs Immat Gran (auto) Absolute Neuts (auto) Absolute Nucleated RBC Nucleated RBC % (auto) Sodium Potassium Chloride Carbon Dioxide Anion Gap BUN Creatinine Estim Creat Clear Calc Estimated GFR POC Glucose 217 H Random Glucose Fasting Glucose Estimat Average Glucose Hemoglobin A1c % Calcium Total Bilirubin Direct Bilirubin AST ALT Alkaline Phosphatase Ammonia Total Protein Albumin Triglycerides Cholesterol LDL Cholesterol, Calc HDL Cholesterol Vitamin B12 Folate TSH Urine Color Yellow Urine Appearance Cloudy Urine pH 5.5 Ur Specific [place] 1.020 Urine Protein 30 (1+) H Urine Glucose (UA) Negative Urine Ketones Negative Urine Blood Moderate (2+) H Urine Nitrite Negative Ur Leukocyte Esterase Moderate (2+) H Urine RBC >20 H Urine WBC >50 H Ur Squamous Epith Cells 3-5 Urine Bacteria 4+ Hyaline Casts >20 Granular Casts Present Urine Yeast Present Stool Occult Blood NEGATIVE Stl C. cayetanensis PCR Not Detected Stool Rotavirus A PCR Not Detected Stl Adenov F 40/41 PCR Not Detected Stool Astrovirus (PCR) Not Detected Stool Campylobacter PCR Not Detected Stool Cryptosporidium PCR Not Detected Stl Sh Tox Pr E STEC PCR Not Detected Stool E coli O157 PCR Not applicable Stl Enterotoxigenic E PCR Not Detected Stool EPEC (PCR) Not Detected Stool EAEC (PCR) Not Detected Stl E. histolytica PCR Not Detected Stool Giardia Lamblia PCR Not Detected Stl P. shigelloides PCR Not Detected Stool Salmonella PCR Not Detected Stool Sapovirus (PCR) Not Detected Stl Shigella/EIEC PCR Not Detected St Y.enterocolitica PCR Not Detected Stool Vibrio (PCR) Not Detected Stl Vibrio cholerae PCR Not Detected Stl Norovirus GI/GII PCR Not Detected Valproic Acid C. difficile Tox B Gene POSITIVE A* C. difficile Toxin A&B Positive A* C. difficile Interpret SEE NOTE 12/03/23 12/04/23 12/04/23 21:03 06:21 11:26 WBC RBC Hgb Hct MCV MCH MCHC RDW Plt Count MPV Immature Gran % (Auto) Neut % (Auto) Lymph % (Auto) [place] % (Auto) Eos % (Auto) Baso % (Auto) Lymph # (Auto) [place] # (Auto) Eos # (Auto) Baso # (Auto) Abs Immat Gran (auto) Absolute Neuts (auto) Absolute Nucleated RBC Nucleated RBC % (auto) Sodium Potassium Chloride Carbon Dioxide Anion Gap BUN Creatinine Estim Creat Clear Calc Estimated GFR POC Glucose 207 H 176 H 210 H Random Glucose Fasting Glucose Estimat Average Glucose Hemoglobin A1c % Calcium Total Bilirubin Direct Bilirubin AST ALT Alkaline Phosphatase Ammonia Total Protein Albumin Triglycerides Cholesterol LDL Cholesterol, Calc HDL Cholesterol Vitamin B12 Folate TSH Urine Color Urine Appearance Urine pH Ur Specific [place] Urine Protein Urine Glucose (UA) Urine Ketones Urine Blood Urine Nitrite Ur Leukocyte Esterase Urine RBC Urine WBC Ur Squamous Epith Cells Urine Bacteria Hyaline Casts Granular Casts Urine Yeast Stool Occult Blood Stl C. cayetanensis PCR Stool Rotavirus A PCR Stl Adenov F PCR Stool Astrovirus (PCR) Stool Campylobacter PCR Stool Cryptosporidium PCR Stl Sh Tox Pr E STEC PCR Stool E coli O157 PCR Stl Enterotoxigenic E PCR Stool EPEC (PCR) Stool EAEC (PCR) Stl E. histolytica PCR Stool Giardia Lamblia PCR Stl P. shigelloides PCR Stool Salmonella PCR Stool Sapovirus (PCR) Stl Shigella/EIEC PCR St Y.enterocolitica PCR Stool Vibrio (PCR) Stl Vibrio cholerae PCR Stl Norovirus GI/GII PCR Valproic Acid C. difficile Tox B Gene C. difficile Toxin A&B C. difficile Interpret 12/04/23 12/04/23 12/05/23 16:34 20:17 06:35 WBC RBC Hgb Hct MCV MCH MCHC RDW Plt Count MPV Immature Gran % (Auto) Neut % (Auto) Lymph % (Auto) [place] % (Auto) Eos % (Auto) Baso % (Auto) Lymph # (Auto) [place] # (Auto) Eos # (Auto) Baso # (Auto) Abs Immat Gran (auto) Absolute Neuts (auto) Absolute Nucleated RBC Nucleated RBC % (auto) Sodium Potassium Chloride Carbon Dioxide Anion Gap BUN Creatinine Estim Creat Clear Calc Estimated GFR POC Glucose 176 H 154 H 146 H Random Glucose Fasting Glucose Estimat Average Glucose Hemoglobin A1c % Calcium Total Bilirubin Direct Bilirubin AST ALT Alkaline Phosphatase Ammonia Total Protein Albumin Triglycerides Cholesterol LDL Cholesterol, Calc HDL Cholesterol Vitamin B12 Folate TSH Urine Color Urine Appearance Urine pH Ur Specific [place] Urine Protein Urine Glucose (UA) Urine Ketones Urine Blood Urine Nitrite Ur Leukocyte Esterase Urine RBC Urine WBC Ur Squamous Epith Cells Urine Bacteria Hyaline Casts Granular Casts Urine Yeast Stool Occult Blood Stl C. cayetanensis PCR Stool Rotavirus A PCR Stl Adenov F PCR Stool Astrovirus (PCR) Stool Campylobacter PCR Stool Cryptosporidium PCR Stl Sh Tox Pr E STEC PCR Stool E coli O157 PCR Stl Enterotoxigenic E PCR Stool EPEC (PCR) Stool EAEC (PCR) Stl E. histolytica PCR Stool Giardia Lamblia PCR Stl P. shigelloides PCR Stool Salmonella PCR Stool Sapovirus (PCR) Stl Shigella/EIEC PCR St Y.enterocolitica PCR Stool Vibrio (PCR) Stl Vibrio cholerae PCR Stl Norovirus GI/GII PCR Valproic Acid C. difficile Tox B Gene C. difficile Toxin A&B C. difficile Interpret 12/05/23 12/05/23 12/05/23 11:08 16:36 20:27 WBC RBC Hgb Hct MCV MCH MCHC RDW Plt Count MPV Immature Gran % (Auto) Neut % (Auto) Lymph % (Auto) [place] % (Auto) Eos % (Auto) Baso % (Auto) Lymph # (Auto) [place] # (Auto) Eos # (Auto) Baso # (Auto) Abs Immat Gran (auto) Absolute Neuts (auto) Absolute Nucleated RBC Nucleated RBC % (auto) Sodium Potassium Chloride Carbon Dioxide Anion Gap BUN Creatinine Estim Creat Clear Calc Estimated GFR POC Glucose 164 H 162 H 198 H Random Glucose Fasting Glucose Estimat Average Glucose Hemoglobin A1c % Calcium Total Bilirubin Direct Bilirubin AST ALT Alkaline Phosphatase Ammonia Total Protein Albumin Triglycerides Cholesterol LDL Cholesterol, Calc HDL Cholesterol Vitamin B12 Folate TSH Urine Color Urine Appearance Urine pH Ur Specific [place] Urine Protein Urine Glucose (UA) Urine Ketones Urine Blood Urine Nitrite Ur Leukocyte Esterase Urine RBC Urine WBC Ur Squamous Epith Cells Urine Bacteria Hyaline Casts Granular Casts Urine Yeast Stool Occult Blood Stl C. cayetanensis PCR Stool Rotavirus A PCR Stl Adenov F 40/41 PCR Stool Astrovirus (PCR) Stool Campylobacter PCR Stool Cryptosporidium PCR Stl Sh Tox Pr E STEC PCR Stool E coli O157 PCR Stl Enterotoxigenic E PCR Stool EPEC (PCR) Stool EAEC (PCR) Stl E. histolytica PCR Stool Giardia Lamblia PCR Stl P. shigelloides PCR Stool Salmonella PCR Stool Sapovirus (PCR) Stl Shigella/EIEC PCR St Y.enterocolitica PCR Stool Vibrio (PCR) Stl Vibrio cholerae PCR Stl Norovirus GI/GII PCR Valproic Acid C. difficile Tox B Gene C. difficile Toxin A&B C. difficile Interpret 12/06/23 12/06/23 12/06/23 06:22 07:57 11:30 WBC RBC Hgb Hct MCV MCH MCHC RDW Plt Count MPV Immature Gran % (Auto) Neut % (Auto) Lymph % (Auto) [place] % (Auto) Eos % (Auto) Baso % (Auto) Lymph # (Auto) [place] # (Auto) Eos # (Auto) Baso # (Auto) Abs Immat Gran (auto) Absolute Neuts (auto) Absolute Nucleated RBC Nucleated RBC % (auto) Sodium 142 Potassium 4.5 Chloride 103 Carbon Dioxide 30 H Anion Gap 14 BUN 32 H Creatinine 0.88 Estim Creat Clear Calc 37.7 Estimated GFR > 60 POC Glucose 122 H 135 H Random Glucose Fasting Glucose 137 H Estimat Average Glucose Hemoglobin A1c % Calcium 10.7 H Total Bilirubin 0.5 Direct Bilirubin AST 24 ALT 15 Alkaline Phosphatase 97 Ammonia Total Protein 9.2 H Albumin 3.6 Triglycerides Cholesterol LDL Cholesterol, Calc HDL Cholesterol Vitamin B12 1504 H Folate 14.9 TSH 2.88 Urine Color Urine Appearance Urine pH Ur Specific [place] Urine Protein Urine Glucose (UA) Urine Ketones Urine Blood Urine Nitrite Ur Leukocyte Esterase Urine RBC Urine WBC Ur Squamous Epith Cells Urine Bacteria Hyaline Casts Granular Casts Urine Yeast Stool Occult Blood Stl C. cayetanensis PCR Stool Rotavirus A PCR Stl Adenov F 40/41 PCR Stool Astrovirus (PCR) Stool Campylobacter PCR Stool Cryptosporidium PCR Stl Sh Tox Pr E STEC PCR Stool E coli O157 PCR Stl Enterotoxigenic E PCR Stool EPEC (PCR) Stool EAEC (PCR) Stl E. histolytica PCR Stool Giardia Lamblia PCR Stl P. shigelloides PCR Stool Salmonella PCR Stool Sapovirus (PCR) Stl Shigella/EIEC PCR St Y.enterocolitica PCR Stool Vibrio (PCR) Stl Vibrio cholerae PCR Stl Norovirus GI/GII PCR Valproic Acid C. difficile Tox B Gene C. difficile Toxin A&B C. difficile Interpret 12/06/23 12/06/23 12/07/23 16:30 19:51 06:57 WBC RBC Hgb Hct MCV MCH MCHC RDW Plt Count MPV Immature Gran % (Auto) Neut % (Auto) Lymph % (Auto) [place] % (Auto) Eos % (Auto) Baso % (Auto) Lymph # (Auto) [place] # (Auto) Eos # (Auto) Baso # (Auto) Abs Immat Gran (auto) Absolute Neuts (auto) Absolute Nucleated RBC Nucleated RBC % (auto) Sodium Potassium Chloride Carbon Dioxide Anion Gap BUN Creatinine Estim Creat Clear Calc Estimated GFR POC Glucose 173 H 208 H 151 H Random Glucose Fasting Glucose Estimat Average Glucose Hemoglobin A1c % Calcium Total Bilirubin Direct Bilirubin AST ALT Alkaline Phosphatase Ammonia Total Protein Albumin Triglycerides Cholesterol LDL Cholesterol, Calc HDL Cholesterol Vitamin B12 Folate TSH Urine Color Urine Appearance Urine pH Ur Specific [place] Urine Protein Urine Glucose (UA) Urine Ketones Urine Blood Urine Nitrite Ur Leukocyte Esterase Urine RBC Urine WBC Ur Squamous Epith Cells Urine Bacteria Hyaline Casts Granular Casts Urine Yeast Stool Occult Blood Stl C. cayetanensis PCR Stool Rotavirus A PCR Stl Adenov F PCR Stool Astrovirus (PCR) Stool Campylobacter PCR Stool Cryptosporidium PCR Stl Sh Tox Pr E STEC PCR Stool E coli O157 PCR Stl Enterotoxigenic E PCR Stool EPEC (PCR) Stool EAEC (PCR) Stl E. histolytica PCR Stool Giardia Lamblia PCR Stl P. shigelloides PCR Stool Salmonella PCR Stool Sapovirus (PCR) Stl Shigella/EIEC PCR St Y.enterocolitica PCR Stool Vibrio (PCR) Stl Vibrio cholerae PCR Stl Norovirus GI/GII PCR Valproic Acid C. difficile Tox B Gene C. difficile Toxin A&B C. difficile Interpret 12/07/23 12/07/23 12/07/23 11:09 16:11 19:32 WBC RBC Hgb Hct MCV MCH MCHC RDW Plt Count MPV Immature Gran % (Auto) Neut % (Auto) Lymph % (Auto) [place] % (Auto) Eos % (Auto) Baso % (Auto) Lymph # (Auto) [place] # (Auto) Eos # (Auto) Baso # (Auto) Abs Immat Gran (auto) Absolute Neuts (auto) Absolute Nucleated RBC Nucleated RBC % (auto) Sodium Potassium Chloride Carbon Dioxide Anion Gap BUN Creatinine Estim Creat Clear Calc Estimated GFR POC Glucose 167 H 154 H 225 H Random Glucose Fasting Glucose Estimat Average Glucose Hemoglobin A1c % Calcium Total Bilirubin Direct Bilirubin AST ALT Alkaline Phosphatase Ammonia Total Protein Albumin Triglycerides Cholesterol LDL Cholesterol, Calc HDL Cholesterol Vitamin B12 Folate TSH Urine Color Urine Appearance Urine pH Ur Specific [place] Urine Protein Urine Glucose (UA) Urine Ketones Urine Blood Urine Nitrite Ur Leukocyte Esterase Urine RBC Urine WBC Ur Squamous Epith Cells Urine Bacteria Hyaline Casts Granular Casts Urine Yeast Stool Occult Blood Stl C. cayetanensis PCR Stool Rotavirus A PCR Stl Adenov F PCR Stool Astrovirus (PCR) Stool Campylobacter PCR Stool Cryptosporidium PCR Stl Sh Tox Pr E STEC PCR Stool E coli O157 PCR Stl Enterotoxigenic E PCR Stool EPEC (PCR) Stool EAEC (PCR) Stl E. histolytica PCR Stool Giardia Lamblia PCR Stl P. shigelloides PCR Stool Salmonella PCR Stool Sapovirus (PCR) Stl Shigella/EIEC PCR St Y.enterocolitica PCR Stool Vibrio (PCR) Stl Vibrio cholerae PCR Stl Norovirus GI/GII PCR Valproic Acid C. difficile Tox B Gene C. difficile Toxin A&B C. difficile Interpret 12/08/23 12/08/23 12/08/23 06:23 11:15 16:29 WBC RBC Hgb Hct MCV MCH MCHC RDW Plt Count MPV Immature Gran % (Auto) Neut % (Auto) Lymph % (Auto) [place] % (Auto) Eos % (Auto) Baso % (Auto) Lymph # (Auto) [place] # (Auto) Eos # (Auto) Baso # (Auto) Abs Immat Gran (auto) Absolute Neuts (auto) Absolute Nucleated RBC Nucleated RBC % (auto) Sodium Potassium Chloride Carbon Dioxide Anion Gap BUN Creatinine Estim Creat Clear Calc Estimated GFR POC Glucose 150 H 171 H 131 H Random Glucose Fasting Glucose Estimat Average Glucose Hemoglobin A1c % Calcium Total Bilirubin Direct Bilirubin AST ALT Alkaline Phosphatase Ammonia Total Protein Albumin Triglycerides Cholesterol LDL Cholesterol, Calc HDL Cholesterol Vitamin B12 Folate TSH Urine Color Urine Appearance Urine pH Ur Specific [place] Urine Protein Urine Glucose (UA) Urine Ketones Urine Blood Urine Nitrite Ur Leukocyte Esterase Urine RBC Urine WBC Ur Squamous Epith Cells Urine Bacteria Hyaline Casts Granular Casts Urine Yeast Stool Occult Blood Stl C. cayetanensis PCR Stool Rotavirus A PCR Stl Adenov F 40/41 PCR Stool Astrovirus (PCR) Stool Campylobacter PCR Stool Cryptosporidium PCR Stl Sh Tox Pr E STEC PCR Stool E coli O157 PCR Stl Enterotoxigenic E PCR Stool EPEC (PCR) Stool EAEC (PCR) Stl E. histolytica PCR Stool Giardia Lamblia PCR Stl P. shigelloides PCR Stool Salmonella PCR Stool Sapovirus (PCR) Stl Shigella/EIEC PCR St Y.enterocolitica PCR Stool Vibrio (PCR) Stl Vibrio cholerae PCR Stl Norovirus GI/GII PCR Valproic Acid C. difficile Tox B Gene C. difficile Toxin A&B C. difficile Interpret 12/08/23 12/08/23 12/09/23 19:07 20:11 06:32 WBC 3.3 L RBC 3.73 L Hgb 10.3 L Hct 32.0 L MCV 85.8 MCH 27.6 MCHC 32.2 RDW 14.2 Plt Count 99 L MPV 10.0 Immature Gran % (Auto) 0.3 Neut % (Auto) 53.2 Lymph % (Auto) 29.7 [place] % (Auto) 15.3 H Eos % (Auto) 1.2 Baso % (Auto) 0.3 Lymph # (Auto) 1.0 L [place] # (Auto) 0.5 Eos # (Auto) 0.0 Baso # (Auto) 0.0 Abs Immat Gran (auto) 0.01 Absolute Neuts (auto) 1.8 L Absolute Nucleated RBC 0.000 Nucleated RBC % (auto) 0.0 Sodium 142 Potassium 4.2 Chloride 104 Carbon Dioxide 30 H Anion Gap 12 BUN 27 H Creatinine 0.82 Estim Creat Clear Calc 40.4 Estimated GFR > 60 POC Glucose 116 H 145 H Random Glucose 114 Fasting Glucose Estimat Average Glucose Hemoglobin A1c % Calcium 10.5 H Total Bilirubin 0.6 Direct Bilirubin AST 25 ALT 14 Alkaline Phosphatase 90 Ammonia Total Protein 8.6 H Albumin 3.4 L Triglycerides Cholesterol LDL Cholesterol, Calc HDL Cholesterol Vitamin B12 Folate TSH Urine Color Urine Appearance Urine pH Ur Specific [place] Urine Protein Urine Glucose (UA) Urine Ketones Urine Blood Urine Nitrite Ur Leukocyte Esterase Urine RBC Urine WBC Ur Squamous Epith Cells Urine Bacteria Hyaline Casts Granular Casts Urine Yeast Stool Occult Blood Stl C. cayetanensis PCR Stool Rotavirus A PCR Stl Adenov F 40/41 PCR Stool Astrovirus (PCR) Stool Campylobacter PCR Stool Cryptosporidium PCR Stl Sh Tox Pr E STEC PCR Stool E coli O157 PCR Stl Enterotoxigenic E PCR Stool EPEC (PCR) Stool EAEC (PCR) Stl E. histolytica PCR Stool Giardia Lamblia PCR Stl P. shigelloides PCR Stool Salmonella PCR Stool Sapovirus (PCR) Stl Shigella/EIEC PCR St Y.enterocolitica PCR Stool Vibrio (PCR) Stl Vibrio cholerae PCR Stl Norovirus GI/GII PCR Valproic Acid C. difficile Tox B Gene C. difficile Toxin A&B C. difficile Interpret 12/09/23 12/09/23 12/09/23 09:57 11:34 16:28 WBC 2.8 L RBC 3.68 L Hgb 10.1 L Hct 32.1 L MCV 87.2 MCH 27.4 MCHC 31.5 RDW 14.4 Plt Count 86 L MPV 9.6 Immature Gran % (Auto) 0.0 Neut % (Auto) 56.4 Lymph % (Auto) 29.1 [place] % (Auto) 12.4 H Eos % (Auto) 1.4 Baso % (Auto) 0.7 Lymph # (Auto) 0.8 L [place] # (Auto) 0.4 Eos # (Auto) 0.0 Baso # (Auto) 0.0 Abs Immat Gran (auto) 0.00 Absolute Neuts (auto) 1.6 L Absolute Nucleated RBC 0.000 Nucleated RBC % (auto) 0.0 Sodium 140 Potassium 4.7 Chloride 103 Carbon Dioxide 30 H Anion Gap 12 BUN 30 H Creatinine 0.99 Estim Creat Clear Calc 33.4 Estimated GFR 55 POC Glucose 201 H 143 H Random Glucose 279 H Fasting Glucose Estimat Average Glucose Hemoglobin A1c % Calcium 10.4 H Total Bilirubin 0.4 Direct Bilirubin 0.2 AST 30 ALT 16 Alkaline Phosphatase 96 Ammonia Total Protein 8.4 H Albumin 3.3 L Triglycerides Cholesterol LDL Cholesterol, Calc HDL Cholesterol Vitamin B12 Folate TSH Urine Color Urine Appearance Urine pH Ur Specific [place] Urine Protein Urine Glucose (UA) Urine Ketones Urine Blood Urine Nitrite Ur Leukocyte Esterase Urine RBC Urine WBC Ur Squamous Epith Cells Urine Bacteria Hyaline Casts Granular Casts Urine Yeast Stool Occult Blood Stl C. cayetanensis PCR Stool Rotavirus A PCR Stl Adenov F 40/41 PCR Stool Astrovirus (PCR) Stool Campylobacter PCR Stool Cryptosporidium PCR Stl Sh Tox Pr E STEC PCR Stool E coli O157 PCR Stl Enterotoxigenic E PCR Stool EPEC (PCR) Stool EAEC (PCR) Stl E. histolytica PCR Stool Giardia Lamblia PCR Stl P. shigelloides PCR Stool Salmonella PCR Stool Sapovirus (PCR) Stl Shigella/EIEC PCR St Y.enterocolitica PCR Stool Vibrio (PCR) Stl Vibrio cholerae PCR Stl Norovirus GI/GII PCR Valproic Acid C. difficile Tox B Gene C. difficile Toxin A&B C. difficile Interpret 12/09/23 12/10/23 12/10/23 19:52 06:12 08:25 WBC RBC Hgb Hct MCV MCH MCHC RDW Plt Count MPV Immature Gran % (Auto) Neut % (Auto) Lymph % (Auto) [place] % (Auto) Eos % (Auto) Baso % (Auto) Lymph # (Auto) [place] # (Auto) Eos # (Auto) Baso # (Auto) Abs Immat Gran (auto) Absolute Neuts (auto) Absolute Nucleated RBC Nucleated RBC % (auto) Sodium Potassium Chloride Carbon Dioxide Anion Gap BUN Creatinine Estim Creat Clear Calc Estimated GFR POC Glucose 205 H 124 H 146 H Random Glucose Fasting Glucose Estimat Average Glucose Hemoglobin A1c % Calcium Total Bilirubin Direct Bilirubin AST ALT Alkaline Phosphatase Ammonia Total Protein Albumin Triglycerides Cholesterol LDL Cholesterol, Calc HDL Cholesterol Vitamin B12 Folate TSH Urine Color Urine Appearance Urine pH Ur Specific [place] Urine Protein Urine Glucose (UA) Urine Ketones Urine Blood Urine Nitrite Ur Leukocyte Esterase Urine RBC Urine WBC Ur Squamous Epith Cells Urine Bacteria Hyaline Casts Granular Casts Urine Yeast Stool Occult Blood Stl C. cayetanensis PCR Stool Rotavirus A PCR Stl Adenov F 40/41 PCR Stool Astrovirus (PCR) Stool Campylobacter PCR Stool Cryptosporidium PCR Stl Sh Tox Pr E STEC PCR Stool E coli O157 PCR Stl Enterotoxigenic E PCR Stool EPEC (PCR) Stool EAEC (PCR) Stl E. histolytica PCR Stool Giardia Lamblia PCR Stl P. shigelloides PCR Stool Salmonella PCR Stool Sapovirus (PCR) Stl Shigella/EIEC PCR St Y.enterocolitica PCR Stool Vibrio (PCR) Stl Vibrio cholerae PCR Stl Norovirus GI/GII PCR Valproic Acid C. difficile Tox B Gene C. difficile Toxin A&B C. difficile Interpret 12/10/23 12/10/23 12/10/23 11:53 16:42 20:01 WBC RBC Hgb Hct MCV MCH MCHC RDW Plt Count MPV Immature Gran % (Auto) Neut % (Auto) Lymph % (Auto) [place] % (Auto) Eos % (Auto) Baso % (Auto) Lymph # (Auto) [place] # (Auto) Eos # (Auto) Baso # (Auto) Abs Immat Gran (auto) Absolute Neuts (auto) Absolute Nucleated RBC Nucleated RBC % (auto) Sodium Potassium Chloride Carbon Dioxide Anion Gap BUN Creatinine Estim Creat Clear Calc Estimated GFR POC Glucose 185 H 164 H 139 H Random Glucose Fasting Glucose Estimat Average Glucose Hemoglobin A1c % Calcium Total Bilirubin Direct Bilirubin AST ALT Alkaline Phosphatase Ammonia Total Protein Albumin Triglycerides Cholesterol LDL Cholesterol, Calc HDL Cholesterol Vitamin B12 Folate TSH Urine Color Urine Appearance Urine pH Ur Specific [place] Urine Protein Urine Glucose (UA) Urine Ketones Urine Blood Urine Nitrite Ur Leukocyte Esterase Urine RBC Urine WBC Ur Squamous Epith Cells Urine Bacteria Hyaline Casts Granular Casts Urine Yeast Stool Occult Blood Stl C. cayetanensis PCR Stool Rotavirus A PCR Stl Adenov F PCR Stool Astrovirus (PCR) Stool Campylobacter PCR Stool Cryptosporidium PCR Stl Sh Tox Pr E STEC PCR Stool E coli O157 PCR Stl Enterotoxigenic E PCR Stool EPEC (PCR) Stool EAEC (PCR) Stl E. histolytica PCR Stool Giardia Lamblia PCR Stl P. shigelloides PCR Stool Salmonella PCR Stool Sapovirus (PCR) Stl Shigella/EIEC PCR St Y.enterocolitica PCR Stool Vibrio (PCR) Stl Vibrio cholerae PCR Stl Norovirus GI/GII PCR Valproic Acid C. difficile Tox B Gene C. difficile Toxin A&B C. difficile Interpret 12/11/23 12/11/23 12/11/23 06:00 11:58 16:39 WBC RBC Hgb Hct MCV MCH MCHC RDW Plt Count MPV Immature Gran % (Auto) Neut % (Auto) Lymph % (Auto) [place] % (Auto) Eos % (Auto) Baso % (Auto) Lymph # (Auto) [place] # (Auto) Eos # (Auto) Baso # (Auto) Abs Immat Gran (auto) Absolute Neuts (auto) Absolute Nucleated RBC Nucleated RBC % (auto) Sodium Potassium Chloride Carbon Dioxide Anion Gap BUN Creatinine Estim Creat Clear Calc Estimated GFR POC Glucose 151 H 158 H 134 H Random Glucose Fasting Glucose Estimat Average Glucose Hemoglobin A1c % Calcium Total Bilirubin Direct Bilirubin AST ALT Alkaline Phosphatase Ammonia Total Protein Albumin Triglycerides Cholesterol LDL Cholesterol, Calc HDL Cholesterol Vitamin B12 Folate TSH Urine Color Urine Appearance Urine pH Ur Specific [place] Urine Protein Urine Glucose (UA) Urine Ketones Urine Blood Urine Nitrite Ur Leukocyte Esterase Urine RBC Urine WBC Ur Squamous Epith Cells Urine Bacteria Hyaline Casts Granular Casts Urine Yeast Stool Occult Blood Stl C. cayetanensis PCR Stool Rotavirus A PCR Stl Adenov F PCR Stool Astrovirus (PCR) Stool Campylobacter PCR Stool Cryptosporidium PCR Stl Sh Tox Pr E STEC PCR Stool E coli O157 PCR Stl Enterotoxigenic E PCR Stool EPEC (PCR) Stool EAEC (PCR) Stl E. histolytica PCR Stool Giardia Lamblia PCR Stl P. shigelloides PCR Stool Salmonella PCR Stool Sapovirus (PCR) Stl Shigella/EIEC PCR St Y.enterocolitica PCR Stool Vibrio (PCR) Stl Vibrio cholerae PCR Stl Norovirus GI/GII PCR Valproic Acid C. difficile Tox B Gene C. difficile Toxin A&B C. difficile Interpret 12/11/23 12/12/23 12/12/23 19:50 06:41 11:33 WBC RBC Hgb Hct MCV MCH MCHC RDW Plt Count MPV Immature Gran % (Auto) Neut % (Auto) Lymph % (Auto) [place] % (Auto) Eos % (Auto) Baso % (Auto) Lymph # (Auto) [place] # (Auto) Eos # (Auto) Baso # (Auto) Abs Immat Gran (auto) Absolute Neuts (auto) Absolute Nucleated RBC Nucleated RBC % (auto) Sodium Potassium Chloride Carbon Dioxide Anion Gap BUN Creatinine Estim Creat Clear Calc Estimated GFR POC Glucose 136 H 149 H 230 H Random Glucose Fasting Glucose Estimat Average Glucose Hemoglobin A1c % Calcium Total Bilirubin Direct Bilirubin AST ALT Alkaline Phosphatase Ammonia Total Protein Albumin Triglycerides Cholesterol LDL Cholesterol, Calc HDL Cholesterol Vitamin B12 Folate TSH Urine Color Urine Appearance Urine pH Ur Specific [place] Urine Protein Urine Glucose (UA) Urine Ketones Urine Blood Urine Nitrite Ur Leukocyte Esterase Urine RBC Urine WBC Ur Squamous Epith Cells Urine Bacteria Hyaline Casts Granular Casts Urine Yeast Stool Occult Blood Stl C. cayetanensis PCR Stool Rotavirus A PCR Stl Adenov F 40 PCR Stool Astrovirus (PCR) Stool Campylobacter PCR Stool Cryptosporidium PCR Stl Sh Tox Pr E STEC PCR Stool E coli O157 PCR Stl Enterotoxigenic E PCR Stool EPEC (PCR) Stool EAEC (PCR) Stl E. histolytica PCR Stool Giardia Lamblia PCR Stl P. shigelloides PCR Stool Salmonella PCR Stool Sapovirus (PCR) Stl Shigella/EIEC PCR St Y.enterocolitica PCR Stool Vibrio (PCR) Stl Vibrio cholerae PCR Stl Norovirus GI/GII PCR Valproic Acid C. difficile Tox B Gene C. difficile Toxin A&B C. difficile Interpret 12/12/23 12/12/23 12/13/23 16:28 20:34 06:19 WBC RBC Hgb Hct MCV MCH MCHC RDW Plt Count MPV Immature Gran % (Auto) Neut % (Auto) Lymph % (Auto) [place] % (Auto) Eos % (Auto) Baso % (Auto) Lymph # (Auto) [place] # (Auto) Eos # (Auto) Baso # (Auto) Abs Immat Gran (auto) Absolute Neuts (auto) Absolute Nucleated RBC Nucleated RBC % (auto) Sodium Potassium Chloride Carbon Dioxide Anion Gap BUN Creatinine Estim Creat Clear Calc Estimated GFR POC Glucose 256 H 194 H 165 H Random Glucose Fasting Glucose Estimat Average Glucose Hemoglobin A1c % Calcium Total Bilirubin Direct Bilirubin AST ALT Alkaline Phosphatase Ammonia Total Protein Albumin Triglycerides Cholesterol LDL Cholesterol, Calc HDL Cholesterol Vitamin B12 Folate TSH Urine Color Urine Appearance Urine pH Ur Specific [place] Urine Protein Urine Glucose (UA) Urine Ketones Urine Blood Urine Nitrite Ur Leukocyte Esterase Urine RBC Urine WBC Ur Squamous Epith Cells Urine Bacteria Hyaline Casts Granular Casts Urine Yeast Stool Occult Blood Stl C. cayetanensis PCR Stool Rotavirus A PCR Stl Adenov F 40/41 PCR Stool Astrovirus (PCR) Stool Campylobacter PCR Stool Cryptosporidium PCR Stl Sh Tox Pr E STEC PCR Stool E coli O157 PCR Stl Enterotoxigenic E PCR Stool EPEC (PCR) Stool EAEC (PCR) Stl E. histolytica PCR Stool Giardia Lamblia PCR Stl P. shigelloides PCR Stool Salmonella PCR Stool Sapovirus (PCR) Stl Shigella/EIEC PCR St Y.enterocolitica PCR Stool Vibrio (PCR) Stl Vibrio cholerae PCR Stl Norovirus GI/GII PCR Valproic Acid C. difficile Tox B Gene C. difficile Toxin A&B C. difficile Interpret 12/13/23 12/13/23 12/13/23 11:02 16:26 19:57 WBC RBC Hgb Hct MCV MCH MCHC RDW Plt Count MPV Immature Gran % (Auto) Neut % (Auto) Lymph % (Auto) [place] % (Auto) Eos % (Auto) Baso % (Auto) Lymph # (Auto) [place] # (Auto) Eos # (Auto) Baso # (Auto) Abs Immat Gran (auto) Absolute Neuts (auto) Absolute Nucleated RBC Nucleated RBC % (auto) Sodium Potassium Chloride Carbon Dioxide Anion Gap BUN Creatinine Estim Creat Clear Calc Estimated GFR POC Glucose 248 H 247 H 179 H Random Glucose Fasting Glucose Estimat Average Glucose Hemoglobin A1c % Calcium Total Bilirubin Direct Bilirubin AST ALT Alkaline Phosphatase Ammonia Total Protein Albumin Triglycerides Cholesterol LDL Cholesterol, Calc HDL Cholesterol Vitamin B12 Folate TSH Urine Color Urine Appearance Urine pH Ur Specific [place] Urine Protein Urine Glucose (UA) Urine Ketones Urine Blood Urine Nitrite Ur Leukocyte Esterase Urine RBC Urine WBC Ur Squamous Epith Cells Urine Bacteria Hyaline Casts Granular Casts Urine Yeast Stool Occult Blood Stl C. cayetanensis PCR Stool Rotavirus A PCR Stl Adenov F PCR Stool Astrovirus (PCR) Stool Campylobacter PCR Stool Cryptosporidium PCR Stl Sh Tox Pr E STEC PCR Stool E coli O157 PCR Stl Enterotoxigenic E PCR Stool EPEC (PCR) Stool EAEC (PCR) Stl E. histolytica PCR Stool Giardia Lamblia PCR Stl P. shigelloides PCR Stool Salmonella PCR Stool Sapovirus (PCR) Stl Shigella/EIEC PCR St Y.enterocolitica PCR Stool Vibrio (PCR) Stl Vibrio cholerae PCR Stl Norovirus GI/GII PCR Valproic Acid C. difficile Tox B Gene C. difficile Toxin A&B C. difficile Interpret 12/14/23 12/14/23 12/14/23 06:32 07:37 11:48 WBC RBC Hgb Hct MCV MCH MCHC RDW Plt Count MPV Immature Gran % (Auto) Neut % (Auto) Lymph % (Auto) [place] % (Auto) Eos % (Auto) Baso % (Auto) Lymph # (Auto) [place] # (Auto) Eos # (Auto) Baso # (Auto) Abs Immat Gran (auto) Absolute Neuts (auto) Absolute Nucleated RBC Nucleated RBC % (auto) Sodium 139 Potassium 4.2 Chloride 103 Carbon Dioxide 28 Anion Gap 12 BUN 25 H Creatinine 0.84 Estim Creat Clear Calc 39.4 Estimated GFR > 60 POC Glucose 120 H 158 H Random Glucose Fasting Glucose 135 H Estimat Average Glucose Hemoglobin A1c % Calcium 10.0 Total Bilirubin 0.6 Direct Bilirubin AST 43 H ALT 23 Alkaline Phosphatase 101 Ammonia Total Protein 8.0 Albumin 3.0 L Triglycerides Cholesterol LDL Cholesterol, Calc HDL Cholesterol Vitamin B12 Folate TSH Urine Color Urine Appearance Urine pH Ur Specific [place] Urine Protein Urine Glucose (UA) Urine Ketones Urine Blood Urine Nitrite Ur Leukocyte Esterase Urine RBC Urine WBC Ur Squamous Epith Cells Urine Bacteria Hyaline Casts Granular Casts Urine Yeast Stool Occult Blood Stl C. cayetanensis PCR Stool Rotavirus A PCR Stl Adenov F PCR Stool Astrovirus (PCR) Stool Campylobacter PCR Stool Cryptosporidium PCR Stl Sh Tox Pr E STEC PCR Stool E coli O157 PCR Stl Enterotoxigenic E PCR Stool EPEC (PCR) Stool EAEC (PCR) Stl E. histolytica PCR Stool Giardia Lamblia PCR Stl P. shigelloides PCR Stool Salmonella PCR Stool Sapovirus (PCR) Stl Shigella/EIEC PCR St Y.enterocolitica PCR Stool Vibrio (PCR) Stl Vibrio cholerae PCR Stl Norovirus GI/GII PCR Valproic Acid C. difficile Tox B Gene C. difficile Toxin A&B C. difficile Interpret 12/14/23 12/14/23 12/15/23 16:05 19:57 06:34 WBC RBC Hgb Hct MCV MCH MCHC RDW Plt Count MPV Immature Gran % (Auto) Neut % (Auto) Lymph % (Auto) [place] % (Auto) Eos % (Auto) Baso % (Auto) Lymph # (Auto) [place] # (Auto) Eos # (Auto) Baso # (Auto) Abs Immat Gran (auto) Absolute Neuts (auto) Absolute Nucleated RBC Nucleated RBC % (auto) Sodium Potassium Chloride Carbon Dioxide Anion Gap BUN Creatinine Estim Creat Clear Calc Estimated GFR POC Glucose 128 H 248 H 92 Random Glucose Fasting Glucose Estimat Average Glucose Hemoglobin A1c % Calcium Total Bilirubin Direct Bilirubin AST ALT Alkaline Phosphatase Ammonia Total Protein Albumin Triglycerides Cholesterol LDL Cholesterol, Calc HDL Cholesterol Vitamin B12 Folate TSH Urine Color Urine Appearance Urine pH Ur Specific [place] Urine Protein Urine Glucose (UA) Urine Ketones Urine Blood Urine Nitrite Ur Leukocyte Esterase Urine RBC Urine WBC Ur Squamous Epith Cells Urine Bacteria Hyaline Casts Granular Casts Urine Yeast Stool Occult Blood Stl C. cayetanensis PCR Stool Rotavirus A PCR Stl Adenov F 40/41 PCR Stool Astrovirus (PCR) Stool Campylobacter PCR Stool Cryptosporidium PCR Stl Sh Tox Pr E STEC PCR Stool E coli O157 PCR Stl Enterotoxigenic E PCR Stool EPEC (PCR) Stool EAEC (PCR) Stl E. histolytica PCR Stool Giardia Lamblia PCR Stl P. shigelloides PCR Stool Salmonella PCR Stool Sapovirus (PCR) Stl Shigella/EIEC PCR St Y.enterocolitica PCR Stool Vibrio (PCR) Stl Vibrio cholerae PCR Stl Norovirus GI/GII PCR Valproic Acid C. difficile Tox B Gene C. difficile Toxin A&B C. difficile Interpret 12/15/23 12/15/23 12/15/23 11:20 16:06 20:24 WBC RBC Hgb Hct MCV MCH MCHC RDW Plt Count MPV Immature Gran % (Auto) Neut % (Auto) Lymph % (Auto) [place] % (Auto) Eos % (Auto) Baso % (Auto) Lymph # (Auto) [place] # (Auto) Eos # (Auto) Baso # (Auto) Abs Immat Gran (auto) Absolute Neuts (auto) Absolute Nucleated RBC Nucleated RBC % (auto) Sodium Potassium Chloride Carbon Dioxide Anion Gap BUN Creatinine Estim Creat Clear Calc Estimated GFR POC Glucose 295 H 142 H 230 H Random Glucose Fasting Glucose Estimat Average Glucose Hemoglobin A1c % Calcium Total Bilirubin Direct Bilirubin AST ALT Alkaline Phosphatase Ammonia Total Protein Albumin Triglycerides Cholesterol LDL Cholesterol, Calc HDL Cholesterol Vitamin B12 Folate TSH Urine Color Urine Appearance Urine pH Ur Specific [place] Urine Protein Urine Glucose (UA) Urine Ketones Urine Blood Urine Nitrite Ur Leukocyte Esterase Urine RBC Urine WBC Ur Squamous Epith Cells Urine Bacteria Hyaline Casts Granular Casts Urine Yeast Stool Occult Blood Stl C. cayetanensis PCR Stool Rotavirus A PCR Stl Adenov F 40/41 PCR Stool Astrovirus (PCR) Stool Campylobacter PCR Stool Cryptosporidium PCR Stl Sh Tox Pr E STEC PCR Stool E coli O157 PCR Stl Enterotoxigenic E PCR Stool EPEC (PCR) Stool EAEC (PCR) Stl E. histolytica PCR Stool Giardia Lamblia PCR Stl P. shigelloides PCR Stool Salmonella PCR Stool Sapovirus (PCR) Stl Shigella/EIEC PCR St Y.enterocolitica PCR Stool Vibrio (PCR) Stl Vibrio cholerae PCR Stl Norovirus GI/GII PCR Valproic Acid C. difficile Tox B Gene C. difficile Toxin A&B C. difficile Interpret 12/16/23 12/16/23 12/16/23 06:30 11:13 16:19 WBC RBC Hgb Hct MCV MCH MCHC RDW Plt Count MPV Immature Gran % (Auto) Neut % (Auto) Lymph % (Auto) [place] % (Auto) Eos % (Auto) Baso % (Auto) Lymph # (Auto) [place] # (Auto) Eos # (Auto) Baso # (Auto) Abs Immat Gran (auto) Absolute Neuts (auto) Absolute Nucleated RBC Nucleated RBC % (auto) Sodium Potassium Chloride Carbon Dioxide Anion Gap BUN Creatinine Estim Creat Clear Calc Estimated GFR POC Glucose 90 136 H 186 H Random Glucose Fasting Glucose Estimat Average Glucose Hemoglobin A1c % Calcium Total Bilirubin Direct Bilirubin AST ALT Alkaline Phosphatase Ammonia Total Protein Albumin Triglycerides Cholesterol LDL Cholesterol, Calc HDL Cholesterol Vitamin B12 Folate TSH Urine Color Urine Appearance Urine pH Ur Specific [place] Urine Protein Urine Glucose (UA) Urine Ketones Urine Blood Urine Nitrite Ur Leukocyte Esterase Urine RBC Urine WBC Ur Squamous Epith Cells Urine Bacteria Hyaline Casts Granular Casts Urine Yeast Stool Occult Blood Stl C. cayetanensis PCR Stool Rotavirus A PCR Stl Adenov F PCR Stool Astrovirus (PCR) Stool Campylobacter PCR Stool Cryptosporidium PCR Stl Sh Tox Pr E STEC PCR Stool E coli O157 PCR Stl Enterotoxigenic E PCR Stool EPEC (PCR) Stool EAEC (PCR) Stl E. histolytica PCR Stool Giardia Lamblia PCR Stl P. shigelloides PCR Stool Salmonella PCR Stool Sapovirus (PCR) Stl Shigella/EIEC PCR St Y.enterocolitica PCR Stool Vibrio (PCR) Stl Vibrio cholerae PCR Stl Norovirus GI/GII PCR Valproic Acid C. difficile Tox B Gene C. difficile Toxin A&B C. difficile Interpret 12/16/23 12/17/23 12/17/23 20:22 06:40 08:06 WBC RBC Hgb Hct MCV MCH MCHC RDW Plt Count MPV Immature Gran % (Auto) Neut % (Auto) Lymph % (Auto) [place] % (Auto) Eos % (Auto) Baso % (Auto) Lymph # (Auto) [place] # (Auto) Eos # (Auto) Baso # (Auto) Abs Immat Gran (auto) Absolute Neuts (auto) Absolute Nucleated RBC Nucleated RBC % (auto) Sodium Potassium Chloride Carbon Dioxide Anion Gap BUN Creatinine Estim Creat Clear Calc Estimated GFR POC Glucose 196 H 139 H Random Glucose Fasting Glucose Estimat Average Glucose Hemoglobin A1c % Calcium Total Bilirubin Direct Bilirubin AST ALT Alkaline Phosphatase Ammonia Total Protein Albumin Triglycerides Cholesterol LDL Cholesterol, Calc HDL Cholesterol Vitamin B12 Folate TSH Urine Color Urine Appearance Urine pH Ur Specific [place] Urine Protein Urine Glucose (UA) Urine Ketones Urine Blood Urine Nitrite Ur Leukocyte Esterase Urine RBC Urine WBC Ur Squamous Epith Cells Urine Bacteria Hyaline Casts Granular Casts Urine Yeast Stool Occult Blood Stl C. cayetanensis PCR Stool Rotavirus A PCR Stl Adenov F PCR Stool Astrovirus (PCR) Stool Campylobacter PCR Stool Cryptosporidium PCR Stl Sh Tox Pr E STEC PCR Stool E coli O157 PCR Stl Enterotoxigenic E PCR Stool EPEC (PCR) Stool EAEC (PCR) Stl E. histolytica PCR Stool Giardia Lamblia PCR Stl P. shigelloides PCR Stool Salmonella PCR Stool Sapovirus (PCR) Stl Shigella/EIEC PCR St Y.enterocolitica PCR Stool Vibrio (PCR) Stl Vibrio cholerae PCR Stl Norovirus GI/GII PCR Valproic Acid 24.9 L C. difficile Tox B Gene C. difficile Toxin A&B C. difficile Interpret 12/17/23 12/17/23 12/18/23 11:34 19:59 06:40 WBC RBC Hgb Hct MCV MCH MCHC RDW Plt Count MPV Immature Gran % (Auto) Neut % (Auto) Lymph % (Auto) [place] % (Auto) Eos % (Auto) Baso % (Auto) Lymph # (Auto) [place] # (Auto) Eos # (Auto) Baso # (Auto) Abs Immat Gran (auto) Absolute Neuts (auto) Absolute Nucleated RBC Nucleated RBC % (auto) Sodium Potassium Chloride Carbon Dioxide Anion Gap BUN Creatinine Estim Creat Clear Calc Estimated GFR POC Glucose 194 H 207 H 146 H Random Glucose Fasting Glucose Estimat Average Glucose Hemoglobin A1c % Calcium Total Bilirubin Direct Bilirubin AST ALT Alkaline Phosphatase Ammonia Total Protein Albumin Triglycerides Cholesterol LDL Cholesterol, Calc HDL Cholesterol Vitamin B12 Folate TSH Urine Color Urine Appearance Urine pH Ur Specific [place] Urine Protein Urine Glucose (UA) Urine Ketones Urine Blood Urine Nitrite Ur Leukocyte Esterase Urine RBC Urine WBC Ur Squamous Epith Cells Urine Bacteria Hyaline Casts Granular Casts Urine Yeast Stool Occult Blood Stl C. cayetanensis PCR Stool Rotavirus A PCR Stl Adenov F 40/41 PCR Stool Astrovirus (PCR) Stool Campylobacter PCR Stool Cryptosporidium PCR Stl Sh Tox Pr E STEC PCR Stool E coli O157 PCR Stl Enterotoxigenic E PCR Stool EPEC (PCR) Stool EAEC (PCR) Stl E. histolytica PCR Stool Giardia Lamblia PCR Stl P. shigelloides PCR Stool Salmonella PCR Stool Sapovirus (PCR) Stl Shigella/EIEC PCR St Y.enterocolitica PCR Stool Vibrio (PCR) Stl Vibrio cholerae PCR Stl Norovirus GI/GII PCR Valproic Acid C. difficile Tox B Gene C. difficile Toxin A&B C. difficile Interpret 12/18/23 12/18/23 12/18/23 11:31 16:32 19:57 WBC RBC Hgb Hct MCV MCH MCHC RDW Plt Count MPV Immature Gran % (Auto) Neut % (Auto) Lymph % (Auto) [place] % (Auto) Eos % (Auto) Baso % (Auto) Lymph # (Auto) [place] # (Auto) Eos # (Auto) Baso # (Auto) Abs Immat Gran (auto) Absolute Neuts (auto) Absolute Nucleated RBC Nucleated RBC % (auto) Sodium Potassium Chloride Carbon Dioxide Anion Gap BUN Creatinine Estim Creat Clear Calc Estimated GFR POC Glucose 149 H 126 H 134 H Random Glucose Fasting Glucose Estimat Average Glucose Hemoglobin A1c % Calcium Total Bilirubin Direct Bilirubin AST ALT Alkaline Phosphatase Ammonia Total Protein Albumin Triglycerides Cholesterol LDL Cholesterol, Calc HDL Cholesterol Vitamin B12 Folate TSH Urine Color Urine Appearance Urine pH Ur Specific [place] Urine Protein Urine Glucose (UA) Urine Ketones Urine Blood Urine Nitrite Ur Leukocyte Esterase Urine RBC Urine WBC Ur Squamous Epith Cells Urine Bacteria Hyaline Casts Granular Casts Urine Yeast Stool Occult Blood Stl C. cayetanensis PCR Stool Rotavirus A PCR Stl Adenov F 40/41 PCR Stool Astrovirus (PCR) Stool Campylobacter PCR Stool Cryptosporidium PCR Stl Sh Tox Pr E STEC PCR Stool E coli O157 PCR Stl Enterotoxigenic E PCR Stool EPEC (PCR) Stool EAEC (PCR) Stl E. histolytica PCR Stool Giardia Lamblia PCR Stl P. shigelloides PCR Stool Salmonella PCR Stool Sapovirus (PCR) Stl Shigella/EIEC PCR St Y.enterocolitica PCR Stool Vibrio (PCR) Stl Vibrio cholerae PCR Stl Norovirus GI/GII PCR Valproic Acid C. difficile Tox B Gene C. difficile Toxin A&B C. difficile Interpret 12/19/23 12/19/23 12/19/23 06:12 11:04 16:05 WBC RBC Hgb Hct MCV MCH MCHC RDW Plt Count MPV Immature Gran % (Auto) Neut % (Auto) Lymph % (Auto) [place] % (Auto) Eos % (Auto) Baso % (Auto) Lymph # (Auto) [place] # (Auto) Eos # (Auto) Baso # (Auto) Abs Immat Gran (auto) Absolute Neuts (auto) Absolute Nucleated RBC Nucleated RBC % (auto) Sodium Potassium Chloride Carbon Dioxide Anion Gap BUN Creatinine Estim Creat Clear Calc Estimated GFR POC Glucose 123 H 116 H 121 H Random Glucose Fasting Glucose Estimat Average Glucose Hemoglobin A1c % Calcium Total Bilirubin Direct Bilirubin AST ALT Alkaline Phosphatase Ammonia Total Protein Albumin Triglycerides Cholesterol LDL Cholesterol, Calc HDL Cholesterol Vitamin B12 Folate TSH Urine Color Urine Appearance Urine pH Ur Specific [place] Urine Protein Urine Glucose (UA) Urine Ketones Urine Blood Urine Nitrite Ur Leukocyte Esterase Urine RBC Urine WBC Ur Squamous Epith Cells Urine Bacteria Hyaline Casts Granular Casts Urine Yeast Stool Occult Blood Stl C. cayetanensis PCR Stool Rotavirus A PCR Stl Adenov F PCR Stool Astrovirus (PCR) Stool Campylobacter PCR Stool Cryptosporidium PCR Stl Sh Tox Pr E STEC PCR Stool E coli O157 PCR Stl Enterotoxigenic E PCR Stool EPEC (PCR) Stool EAEC (PCR) Stl E. histolytica PCR Stool Giardia Lamblia PCR Stl P. shigelloides PCR Stool Salmonella PCR Stool Sapovirus (PCR) Stl Shigella/EIEC PCR St Y.enterocolitica PCR Stool Vibrio (PCR) Stl Vibrio cholerae PCR Stl Norovirus GI/GII PCR Valproic Acid C. difficile Tox B Gene C. difficile Toxin A&B C. difficile Interpret 12/19/23 12/20/23 12/20/23 19:35 06:05 11:29 WBC RBC Hgb Hct MCV MCH MCHC RDW Plt Count MPV Immature Gran % (Auto) Neut % (Auto) Lymph % (Auto) [place] % (Auto) Eos % (Auto) Baso % (Auto) Lymph # (Auto) [place] # (Auto) Eos # (Auto) Baso # (Auto) Abs Immat Gran (auto) Absolute Neuts (auto) Absolute Nucleated RBC Nucleated RBC % (auto) Sodium Potassium Chloride Carbon Dioxide Anion Gap BUN Creatinine Estim Creat Clear Calc Estimated GFR POC Glucose 275 H 111 192 H Random Glucose Fasting Glucose Estimat Average Glucose Hemoglobin A1c % Calcium Total Bilirubin Direct Bilirubin AST ALT Alkaline Phosphatase Ammonia Total Protein Albumin Triglycerides Cholesterol LDL Cholesterol, Calc HDL Cholesterol Vitamin B12 Folate TSH Urine Color Urine Appearance Urine pH Ur Specific [place] Urine Protein Urine Glucose (UA) Urine Ketones Urine Blood Urine Nitrite Ur Leukocyte Esterase Urine RBC Urine WBC Ur Squamous Epith Cells Urine Bacteria Hyaline Casts Granular Casts Urine Yeast Stool Occult Blood Stl C. cayetanensis PCR Stool Rotavirus A PCR Stl Adenov PCR Stool Astrovirus (PCR) Stool Campylobacter PCR Stool Cryptosporidium PCR Stl Sh Tox Pr E STEC PCR Stool E coli O157 PCR Stl Enterotoxigenic E PCR Stool EPEC (PCR) Stool EAEC (PCR) Stl E. histolytica PCR Stool Giardia Lamblia PCR Stl P. shigelloides PCR Stool Salmonella PCR Stool Sapovirus (PCR) Stl Shigella/EIEC PCR St Y.enterocolitica PCR Stool Vibrio (PCR) Stl Vibrio cholerae PCR Stl Norovirus GI/GII PCR Valproic Acid C. difficile Tox B Gene C. difficile Toxin A&B C. difficile Interpret 12/20/23 12/20/23 12/21/23 16:28 21:00 06:42 WBC RBC Hgb Hct MCV MCH MCHC RDW Plt Count MPV Immature Gran % (Auto) Neut % (Auto) Lymph % (Auto) [place] % (Auto) Eos % (Auto) Baso % (Auto) Lymph # (Auto) [place] # (Auto) Eos # (Auto) Baso # (Auto) Abs Immat Gran (auto) Absolute Neuts (auto) Absolute Nucleated RBC Nucleated RBC % (auto) Sodium Potassium Chloride Carbon Dioxide Anion Gap BUN Creatinine Estim Creat Clear Calc Estimated GFR POC Glucose 187 H 253 H 131 H Random Glucose Fasting Glucose Estimat Average Glucose Hemoglobin A1c % Calcium Total Bilirubin Direct Bilirubin AST ALT Alkaline Phosphatase Ammonia Total Protein Albumin Triglycerides Cholesterol LDL Cholesterol, Calc HDL Cholesterol Vitamin B12 Folate TSH Urine Color Urine Appearance Urine pH Ur Specific [place] Urine Protein Urine Glucose (UA) Urine Ketones Urine Blood Urine Nitrite Ur Leukocyte Esterase Urine RBC Urine WBC Ur Squamous Epith Cells Urine Bacteria Hyaline Casts Granular Casts Urine Yeast Stool Occult Blood Stl C. cayetanensis PCR Stool Rotavirus A PCR Stl Adenov F 40/41 PCR Stool Astrovirus (PCR) Stool Campylobacter PCR Stool Cryptosporidium PCR Stl Sh Tox Pr E STEC PCR Stool E coli O157 PCR Stl Enterotoxigenic E PCR Stool EPEC (PCR) Stool EAEC (PCR) Stl E. histolytica PCR Stool Giardia Lamblia PCR Stl P. shigelloides PCR Stool Salmonella PCR Stool Sapovirus (PCR) Stl Shigella/EIEC PCR St Y.enterocolitica PCR Stool Vibrio (PCR) Stl Vibrio cholerae PCR Stl Norovirus GI/GII PCR Valproic Acid C. difficile Tox B Gene C. difficile Toxin A&B C. difficile Interpret 12/21/23 12/21/23 12/21/23 11:17 16:05 19:55 WBC RBC Hgb Hct MCV MCH MCHC RDW Plt Count MPV Immature Gran % (Auto) Neut % (Auto) Lymph % (Auto) [place] % (Auto) Eos % (Auto) Baso % (Auto) Lymph # (Auto) [place] # (Auto) Eos # (Auto) Baso # (Auto) Abs Immat Gran (auto) Absolute Neuts (auto) Absolute Nucleated RBC Nucleated RBC % (auto) Sodium Potassium Chloride Carbon Dioxide Anion Gap BUN Creatinine Estim Creat Clear Calc Estimated GFR POC Glucose 234 H 155 H 209 H Random Glucose Fasting Glucose Estimat Average Glucose Hemoglobin A1c % Calcium Total Bilirubin Direct Bilirubin AST ALT Alkaline Phosphatase Ammonia Total Protein Albumin Triglycerides Cholesterol LDL Cholesterol, Calc HDL Cholesterol Vitamin B12 Folate TSH Urine Color Urine Appearance Urine pH Ur Specific [place] Urine Protein Urine Glucose (UA) Urine Ketones Urine Blood Urine Nitrite Ur Leukocyte Esterase Urine RBC Urine WBC Ur Squamous Epith Cells Urine Bacteria Hyaline Casts Granular Casts Urine Yeast Stool Occult Blood Stl C. cayetanensis PCR Stool Rotavirus A PCR Stl Adenov F 40/41 PCR Stool Astrovirus (PCR) Stool Campylobacter PCR Stool Cryptosporidium PCR Stl Sh Tox Pr E STEC PCR Stool E coli O157 PCR Stl Enterotoxigenic E PCR Stool EPEC (PCR) Stool EAEC (PCR) Stl E. histolytica PCR Stool Giardia Lamblia PCR Stl P. shigelloides PCR Stool Salmonella PCR Stool Sapovirus (PCR) Stl Shigella/EIEC PCR St Y.enterocolitica PCR Stool Vibrio (PCR) Stl Vibrio cholerae PCR Stl Norovirus GI/GII PCR Valproic Acid C. difficile Tox B Gene C. difficile Toxin A&B C. difficile Interpret 12/22/23 12/22/23 12/22/23 06:35 11:29 16:31 WBC RBC Hgb Hct MCV MCH MCHC RDW Plt Count MPV Immature Gran % (Auto) Neut % (Auto) Lymph % (Auto) [place] % (Auto) Eos % (Auto) Baso % (Auto) Lymph # (Auto) [place] # (Auto) Eos # (Auto) Baso # (Auto) Abs Immat Gran (auto) Absolute Neuts (auto) Absolute Nucleated RBC Nucleated RBC % (auto) Sodium Potassium Chloride Carbon Dioxide Anion Gap BUN Creatinine Estim Creat Clear Calc Estimated GFR POC Glucose 131 H 224 H 194 H Random Glucose Fasting Glucose Estimat Average Glucose Hemoglobin A1c % Calcium Total Bilirubin Direct Bilirubin AST ALT Alkaline Phosphatase Ammonia Total Protein Albumin Triglycerides Cholesterol LDL Cholesterol, Calc HDL Cholesterol Vitamin B12 Folate TSH Urine Color Urine Appearance Urine pH Ur Specific [place] Urine Protein Urine Glucose (UA) Urine Ketones Urine Blood Urine Nitrite Ur Leukocyte Esterase Urine RBC Urine WBC Ur Squamous Epith Cells Urine Bacteria Hyaline Casts Granular Casts Urine Yeast Stool Occult Blood Stl C. cayetanensis PCR Stool Rotavirus A PCR Stl Adenov F PCR Stool Astrovirus (PCR) Stool Campylobacter PCR Stool Cryptosporidium PCR Stl Sh Tox Pr E STEC PCR Stool E coli O157 PCR Stl Enterotoxigenic E PCR Stool EPEC (PCR) Stool EAEC (PCR) Stl E. histolytica PCR Stool Giardia Lamblia PCR Stl P. shigelloides PCR Stool Salmonella PCR Stool Sapovirus (PCR) Stl Shigella/EIEC PCR St Y.enterocolitica PCR Stool Vibrio (PCR) Stl Vibrio cholerae PCR Stl Norovirus GI/GII PCR Valproic Acid C. difficile Tox B Gene C. difficile Toxin A&B C. difficile Interpret 12/22/23 12/23/23 12/23/23 19:59 05:19 11:21 WBC RBC Hgb Hct MCV MCH MCHC RDW Plt Count MPV Immature Gran % (Auto) Neut % (Auto) Lymph % (Auto) [place] % (Auto) Eos % (Auto) Baso % (Auto) Lymph # (Auto) [place] # (Auto) Eos # (Auto) Baso # (Auto) Abs Immat Gran (auto) Absolute Neuts (auto) Absolute Nucleated RBC Nucleated RBC % (auto) Sodium Potassium Chloride Carbon Dioxide Anion Gap BUN Creatinine Estim Creat Clear Calc Estimated GFR POC Glucose 255 H 121 H 124 H Random Glucose Fasting Glucose Estimat Average Glucose Hemoglobin A1c % Calcium Total Bilirubin Direct Bilirubin AST ALT Alkaline Phosphatase Ammonia Total Protein Albumin Triglycerides Cholesterol LDL Cholesterol, Calc HDL Cholesterol Vitamin B12 Folate TSH Urine Color Urine Appearance Urine pH Ur Specific [place] Urine Protein Urine Glucose (UA) Urine Ketones Urine Blood Urine Nitrite Ur Leukocyte Esterase Urine RBC Urine WBC Ur Squamous Epith Cells Urine Bacteria Hyaline Casts Granular Casts Urine Yeast Stool Occult Blood Stl C. cayetanensis PCR Stool Rotavirus A PCR Stl Adenov F PCR Stool Astrovirus (PCR) Stool Campylobacter PCR Stool Cryptosporidium PCR Stl Sh Tox Pr E STEC PCR Stool E coli O157 PCR Stl Enterotoxigenic E PCR Stool EPEC (PCR) Stool EAEC (PCR) Stl E. histolytica PCR Stool Giardia Lamblia PCR Stl P. shigelloides PCR Stool Salmonella PCR Stool Sapovirus (PCR) Stl Shigella/EIEC PCR St Y.enterocolitica PCR Stool Vibrio (PCR) Stl Vibrio cholerae PCR Stl Norovirus GI/GII PCR Valproic Acid C. difficile Tox B Gene C. difficile Toxin A&B C. difficile Interpret 12/23/23 12/23/23 12/24/23 16:07 20:29 06:20 WBC RBC Hgb Hct MCV MCH MCHC RDW Plt Count MPV Immature Gran % (Auto) Neut % (Auto) Lymph % (Auto) [place] % (Auto) Eos % (Auto) Baso % (Auto) Lymph # (Auto) [place] # (Auto) Eos # (Auto) Baso # (Auto) Abs Immat Gran (auto) Absolute Neuts (auto) Absolute Nucleated RBC Nucleated RBC % (auto) Sodium Potassium Chloride Carbon Dioxide Anion Gap BUN Creatinine Estim Creat Clear Calc Estimated GFR POC Glucose 132 H 308 H 144 H Random Glucose Fasting Glucose Estimat Average Glucose Hemoglobin A1c % Calcium Total Bilirubin Direct Bilirubin AST ALT Alkaline Phosphatase Ammonia Total Protein Albumin Triglycerides Cholesterol LDL Cholesterol, Calc HDL Cholesterol Vitamin B12 Folate TSH Urine Color Urine Appearance Urine pH Ur Specific [place] Urine Protein Urine Glucose (UA) Urine Ketones Urine Blood Urine Nitrite Ur Leukocyte Esterase Urine RBC Urine WBC Ur Squamous Epith Cells Urine Bacteria Hyaline Casts Granular Casts Urine Yeast Stool Occult Blood Stl C. cayetanensis PCR Stool Rotavirus A PCR Stl Adenov F 40/41 PCR Stool Astrovirus (PCR) Stool Campylobacter PCR Stool Cryptosporidium PCR Stl Sh Tox Pr E STEC PCR Stool E coli O157 PCR Stl Enterotoxigenic E PCR Stool EPEC (PCR) Stool EAEC (PCR) Stl E. histolytica PCR Stool Giardia Lamblia PCR Stl P. shigelloides PCR Stool Salmonella PCR Stool Sapovirus (PCR) Stl Shigella/EIEC PCR St Y.enterocolitica PCR Stool Vibrio (PCR) Stl Vibrio cholerae PCR Stl Norovirus GI/GII PCR Valproic Acid C. difficile Tox B Gene C. difficile Toxin A&B C. difficile Interpret 12/24/23 12/24/23 12/24/23 07:46 11:28 16:25 WBC RBC Hgb Hct MCV MCH MCHC RDW Plt Count MPV Immature Gran % (Auto) Neut % (Auto) Lymph % (Auto) [place] % (Auto) Eos % (Auto) Baso % (Auto) Lymph # (Auto) [place] # (Auto) Eos # (Auto) Baso # (Auto) Abs Immat Gran (auto) Absolute Neuts (auto) Absolute Nucleated RBC Nucleated RBC % (auto) Sodium Potassium Chloride Carbon Dioxide Anion Gap BUN Creatinine Estim Creat Clear Calc Estimated GFR POC Glucose 141 H 437 H* 155 H Random Glucose Fasting Glucose Estimat Average Glucose Hemoglobin A1c % Calcium Total Bilirubin Direct Bilirubin AST ALT Alkaline Phosphatase Ammonia Total Protein Albumin Triglycerides Cholesterol LDL Cholesterol, Calc HDL Cholesterol Vitamin B12 Folate TSH Urine Color Urine Appearance Urine pH Ur Specific [place] Urine Protein Urine Glucose (UA) Urine Ketones Urine Blood Urine Nitrite Ur Leukocyte Esterase Urine RBC Urine WBC Ur Squamous Epith Cells Urine Bacteria Hyaline Casts Granular Casts Urine Yeast Stool Occult Blood Stl C. cayetanensis PCR Stool Rotavirus A PCR Stl Adenov F 40/41 PCR Stool Astrovirus (PCR) Stool Campylobacter PCR Stool Cryptosporidium PCR Stl Sh Tox Pr E STEC PCR Stool E coli O157 PCR Stl Enterotoxigenic E PCR Stool EPEC (PCR) Stool EAEC (PCR) Stl E. histolytica PCR Stool Giardia Lamblia PCR Stl P. shigelloides PCR Stool Salmonella PCR Stool Sapovirus (PCR) Stl Shigella/EIEC PCR St Y.enterocolitica PCR Stool Vibrio (PCR) Stl Vibrio cholerae PCR Stl Norovirus GI/GII PCR Valproic Acid C. difficile Tox B Gene C. difficile Toxin A&B C. difficile Interpret 12/24/23 12/25/23 12/25/23 20:04 06:11 11:37 WBC RBC Hgb Hct MCV MCH MCHC RDW Plt Count MPV Immature Gran % (Auto) Neut % (Auto) Lymph % (Auto) [place] % (Auto) Eos % (Auto) Baso % (Auto) Lymph # (Auto) [place] # (Auto) Eos # (Auto) Baso # (Auto) Abs Immat Gran (auto) Absolute Neuts (auto) Absolute Nucleated RBC Nucleated RBC % (auto) Sodium Potassium Chloride Carbon Dioxide Anion Gap BUN Creatinine Estim Creat Clear Calc Estimated GFR POC Glucose 299 H 171 H 244 H Random Glucose Fasting Glucose Estimat Average Glucose Hemoglobin A1c % Calcium Total Bilirubin Direct Bilirubin AST ALT Alkaline Phosphatase Ammonia Total Protein Albumin Triglycerides Cholesterol LDL Cholesterol, Calc HDL Cholesterol Vitamin B12 Folate TSH Urine Color Urine Appearance Urine pH Ur Specific [place] Urine Protein Urine Glucose (UA) Urine Ketones Urine Blood Urine Nitrite Ur Leukocyte Esterase Urine RBC Urine WBC Ur Squamous Epith Cells Urine Bacteria Hyaline Casts Granular Casts Urine Yeast Stool Occult Blood Stl C. cayetanensis PCR Stool Rotavirus A PCR Stl Adenov F PCR Stool Astrovirus (PCR) Stool Campylobacter PCR Stool Cryptosporidium PCR Stl Sh Tox Pr E STEC PCR Stool E coli O157 PCR Stl Enterotoxigenic E PCR Stool EPEC (PCR) Stool EAEC (PCR) Stl E. histolytica PCR Stool Giardia Lamblia PCR Stl P. shigelloides PCR Stool Salmonella PCR Stool Sapovirus (PCR) Stl Shigella/EIEC PCR St Y.enterocolitica PCR Stool Vibrio (PCR) Stl Vibrio cholerae PCR Stl Norovirus GI/GII PCR Valproic Acid C. difficile Tox B Gene C. difficile Toxin A&B C. difficile Interpret 12/25/23 12/25/23 12/26/23 16:27 19:53 06:50 WBC RBC Hgb Hct MCV MCH MCHC RDW Plt Count MPV Immature Gran % (Auto) Neut % (Auto) Lymph % (Auto) [place] % (Auto) Eos % (Auto) Baso % (Auto) Lymph # (Auto) [place] # (Auto) Eos # (Auto) Baso # (Auto) Abs Immat Gran (auto) Absolute Neuts (auto) Absolute Nucleated RBC Nucleated RBC % (auto) Sodium Potassium Chloride Carbon Dioxide Anion Gap BUN Creatinine Estim Creat Clear Calc Estimated GFR POC Glucose 213 H 264 H 184 H Random Glucose Fasting Glucose Estimat Average Glucose Hemoglobin A1c % Calcium Total Bilirubin Direct Bilirubin AST ALT Alkaline Phosphatase Ammonia Total Protein Albumin Triglycerides Cholesterol LDL Cholesterol, Calc HDL Cholesterol Vitamin B12 Folate TSH Urine Color Urine Appearance Urine pH Ur Specific [place] Urine Protein Urine Glucose (UA) Urine Ketones Urine Blood Urine Nitrite Ur Leukocyte Esterase Urine RBC Urine WBC Ur Squamous Epith Cells Urine Bacteria Hyaline Casts Granular Casts Urine Yeast Stool Occult Blood Stl C. cayetanensis PCR Stool Rotavirus A PCR Stl Adenov F PCR Stool Astrovirus (PCR) Stool Campylobacter PCR Stool Cryptosporidium PCR Stl Sh Tox Pr E STEC PCR Stool E coli O157 PCR Stl Enterotoxigenic E PCR Stool EPEC (PCR) Stool EAEC (PCR) Stl E. histolytica PCR Stool Giardia Lamblia PCR Stl P. shigelloides PCR Stool Salmonella PCR Stool Sapovirus (PCR) Stl Shigella/EIEC PCR St Y.enterocolitica PCR Stool Vibrio (PCR) Stl Vibrio cholerae PCR Stl Norovirus GI/GII PCR Valproic Acid C. difficile Tox B Gene C. difficile Toxin A&B C. difficile Interpret 12/26/23 12/26/23 12/26/23 11:36 16:27 19:55 WBC RBC Hgb Hct MCV MCH MCHC RDW Plt Count MPV Immature Gran % (Auto) Neut % (Auto) Lymph % (Auto) [place] % (Auto) Eos % (Auto) Baso % (Auto) Lymph # (Auto) [place] # (Auto) Eos # (Auto) Baso # (Auto) Abs Immat Gran (auto) Absolute Neuts (auto) Absolute Nucleated RBC Nucleated RBC % (auto) Sodium Potassium Chloride Carbon Dioxide Anion Gap BUN Creatinine Estim Creat Clear Calc Estimated GFR POC Glucose 407 H* 343 H 265 H Random Glucose Fasting Glucose Estimat Average Glucose Hemoglobin A1c % Calcium Total Bilirubin Direct Bilirubin AST ALT Alkaline Phosphatase Ammonia Total Protein Albumin Triglycerides Cholesterol LDL Cholesterol, Calc HDL Cholesterol Vitamin B12 Folate TSH Urine Color Urine Appearance Urine pH Ur Specific [place] Urine Protein Urine Glucose (UA) Urine Ketones Urine Blood Urine Nitrite Ur Leukocyte Esterase Urine RBC Urine WBC Ur Squamous Epith Cells Urine Bacteria Hyaline Casts Granular Casts Urine Yeast Stool Occult Blood Stl C. cayetanensis PCR Stool Rotavirus A PCR Stl Adenov F 40/41 PCR Stool Astrovirus (PCR) Stool Campylobacter PCR Stool Cryptosporidium PCR Stl Sh Tox Pr E STEC PCR Stool E coli O157 PCR Stl Enterotoxigenic E PCR Stool EPEC (PCR) Stool EAEC (PCR) Stl E. histolytica PCR Stool Giardia Lamblia PCR Stl P. shigelloides PCR Stool Salmonella PCR Stool Sapovirus (PCR) Stl Shigella/EIEC PCR St Y.enterocolitica PCR Stool Vibrio (PCR) Stl Vibrio cholerae PCR Stl Norovirus GI/GII PCR Valproic Acid C. difficile Tox B Gene C. difficile Toxin A&B C. difficile Interpret 12/27/23 12/27/23 12/27/23 06:00 11:30 16:28 WBC RBC Hgb Hct MCV MCH MCHC RDW Plt Count MPV Immature Gran % (Auto) Neut % (Auto) Lymph % (Auto) [place] % (Auto) Eos % (Auto) Baso % (Auto) Lymph # (Auto) [place] # (Auto) Eos # (Auto) Baso # (Auto) Abs Immat Gran (auto) Absolute Neuts (auto) Absolute Nucleated RBC Nucleated RBC % (auto) Sodium Potassium Chloride Carbon Dioxide Anion Gap BUN Creatinine Estim Creat Clear Calc Estimated GFR POC Glucose 158 H 391 H* 489 H* Random Glucose Fasting Glucose Estimat Average Glucose Hemoglobin A1c % Calcium Total Bilirubin Direct Bilirubin AST ALT Alkaline Phosphatase Ammonia Total Protein Albumin Triglycerides Cholesterol LDL Cholesterol, Calc HDL Cholesterol Vitamin B12 Folate TSH Urine Color Urine Appearance Urine pH Ur Specific [place] Urine Protein Urine Glucose (UA) Urine Ketones Urine Blood Urine Nitrite Ur Leukocyte Esterase Urine RBC Urine WBC Ur Squamous Epith Cells Urine Bacteria Hyaline Casts Granular Casts Urine Yeast Stool Occult Blood Stl C. cayetanensis PCR Stool Rotavirus A PCR Stl Adenov F 40/41 PCR Stool Astrovirus (PCR) Stool Campylobacter PCR Stool Cryptosporidium PCR Stl Sh Tox Pr E STEC PCR Stool E coli O157 PCR Stl Enterotoxigenic E PCR Stool EPEC (PCR) Stool EAEC (PCR) Stl E. histolytica PCR Stool Giardia Lamblia PCR Stl P. shigelloides PCR Stool Salmonella PCR Stool Sapovirus (PCR) Stl Shigella/EIEC PCR St Y.enterocolitica PCR Stool Vibrio (PCR) Stl Vibrio cholerae PCR Stl Norovirus GI/GII PCR Valproic Acid C. difficile Tox B Gene C. difficile Toxin A&B C. difficile Interpret 12/27/23 12/28/23 12/28/23 19:55 06:35 11:18 WBC RBC Hgb Hct MCV MCH MCHC RDW Plt Count MPV Immature Gran % (Auto) Neut % (Auto) Lymph % (Auto) [place] % (Auto) Eos % (Auto) Baso % (Auto) Lymph # (Auto) [place] # (Auto) Eos # (Auto) Baso # (Auto) Abs Immat Gran (auto) Absolute Neuts (auto) Absolute Nucleated RBC Nucleated RBC % (auto) Sodium Potassium Chloride Carbon Dioxide Anion Gap BUN Creatinine Estim Creat Clear Calc Estimated GFR POC Glucose 400 H* 234 H 184 H Random Glucose Fasting Glucose Estimat Average Glucose Hemoglobin A1c % Calcium Total Bilirubin Direct Bilirubin AST ALT Alkaline Phosphatase Ammonia Total Protein Albumin Triglycerides Cholesterol LDL Cholesterol, Calc HDL Cholesterol Vitamin B12 Folate TSH Urine Color Urine Appearance Urine pH Ur Specific [place] Urine Protein Urine Glucose (UA) Urine Ketones Urine Blood Urine Nitrite Ur Leukocyte Esterase Urine RBC Urine WBC Ur Squamous Epith Cells Urine Bacteria Hyaline Casts Granular Casts Urine Yeast Stool Occult Blood Stl C. cayetanensis PCR Stool Rotavirus A PCR Stl Adenov F PCR Stool Astrovirus (PCR) Stool Campylobacter PCR Stool Cryptosporidium PCR Stl Sh Tox Pr E STEC PCR Stool E coli O157 PCR Stl Enterotoxigenic E PCR Stool EPEC (PCR) Stool EAEC (PCR) Stl E. histolytica PCR Stool Giardia Lamblia PCR Stl P. shigelloides PCR Stool Salmonella PCR Stool Sapovirus (PCR) Stl Shigella/EIEC PCR St Y.enterocolitica PCR Stool Vibrio (PCR) Stl Vibrio cholerae PCR Stl Norovirus GI/GII PCR Valproic Acid C. difficile Tox B Gene C. difficile Toxin A&B C. difficile Interpret 12/28/23 12/28/23 12/28/23 16:02 20:21 22:14 WBC RBC Hgb Hct MCV MCH MCHC RDW Plt Count MPV Immature Gran % (Auto) Neut % (Auto) Lymph % (Auto) [place] % (Auto) Eos % (Auto) Baso % (Auto) Lymph # (Auto) [place] # (Auto) Eos # (Auto) Baso # (Auto) Abs Immat Gran (auto) Absolute Neuts (auto) Absolute Nucleated RBC Nucleated RBC % (auto) Sodium Potassium Chloride Carbon Dioxide Anion Gap BUN Creatinine Estim Creat Clear Calc Estimated GFR POC Glucose 148 H 369 H* 403 H* Random Glucose Fasting Glucose Estimat Average Glucose Hemoglobin A1c % Calcium Total Bilirubin Direct Bilirubin AST ALT Alkaline Phosphatase Ammonia Total Protein Albumin Triglycerides Cholesterol LDL Cholesterol, Calc HDL Cholesterol Vitamin B12 Folate TSH Urine Color Urine Appearance Urine pH Ur Specific [place] Urine Protein Urine Glucose (UA) Urine Ketones Urine Blood Urine Nitrite Ur Leukocyte Esterase Urine RBC Urine WBC Ur Squamous Epith Cells Urine Bacteria Hyaline Casts Granular Casts Urine Yeast Stool Occult Blood Stl C. cayetanensis PCR Stool Rotavirus A PCR Stl Adenov F 40 PCR Stool Astrovirus (PCR) Stool Campylobacter PCR Stool Cryptosporidium PCR Stl Sh Tox Pr E STEC PCR Stool E coli O157 PCR Stl Enterotoxigenic E PCR Stool EPEC (PCR) Stool EAEC (PCR) Stl E. histolytica PCR Stool Giardia Lamblia PCR Stl P. shigelloides PCR Stool Salmonella PCR Stool Sapovirus (PCR) Stl Shigella/EIEC PCR St Y.enterocolitica PCR Stool Vibrio (PCR) Stl Vibrio cholerae PCR Stl Norovirus GI/GII PCR Valproic Acid C. difficile Tox B Gene C. difficile Toxin A&B C. difficile Interpret 12/29/23 12/29/23 12/29/23 05:58 11:08 11:58 WBC 3.5 L RBC 3.56 L Hgb 9.9 L Hct 30.9 L MCV 86.8 MCH 27.8 MCHC 32.0 RDW 14.6 Plt Count 75 L MPV 10.4 Immature Gran % (Auto) 0.6 H Neut % (Auto) 70.1 Lymph % (Auto) 20.3 [place] % (Auto) 7.5 Eos % (Auto) 1.2 Baso % (Auto) 0.3 Lymph # (Auto) 0.7 L [place] # (Auto) 0.3 Eos # (Auto) 0.0 Baso # (Auto) 0.0 Abs Immat Gran (auto) 0.02 Absolute Neuts (auto) 2.4 Absolute Nucleated RBC 0.000 Nucleated RBC % (auto) 0.0 Sodium 137 Potassium 4.8 Chloride 100 Carbon Dioxide 28 Anion Gap 14 BUN 40 H Creatinine 0.91 Estim Creat Clear Calc 36.4 Estimated GFR > 60 POC Glucose 168 H 300 H Random Glucose 364 H* Fasting Glucose Estimat Average Glucose Hemoglobin A1c % Calcium 10.1 Total Bilirubin 0.3 Direct Bilirubin AST 52 H ALT 47 H Alkaline Phosphatase 195 H Ammonia Total Protein 8.6 H Albumin 3.4 L Triglycerides Cholesterol LDL Cholesterol, Calc HDL Cholesterol Vitamin B12 Folate TSH Urine Color Urine Appearance Urine pH Ur Specific [place] Urine Protein Urine Glucose (UA) Urine Ketones Urine Blood Urine Nitrite Ur Leukocyte Esterase Urine RBC Urine WBC Ur Squamous Epith Cells Urine Bacteria Hyaline Casts Granular Casts Urine Yeast Stool Occult Blood Stl C. cayetanensis PCR Stool Rotavirus A PCR Stl Adenov F 40/41 PCR Stool Astrovirus (PCR) Stool Campylobacter PCR Stool Cryptosporidium PCR Stl Sh Tox Pr E STEC PCR Stool E coli O157 PCR Stl Enterotoxigenic E PCR Stool EPEC (PCR) Stool EAEC (PCR) Stl E. histolytica PCR Stool Giardia Lamblia PCR Stl P. shigelloides PCR Stool Salmonella PCR Stool Sapovirus (PCR) Stl Shigella/EIEC PCR St Y.enterocolitica PCR Stool Vibrio (PCR) Stl Vibrio cholerae PCR Stl Norovirus GI/GII PCR Valproic Acid C. difficile Tox B Gene C. difficile Toxin A&B C. difficile Interpret 12/29/23 12/29/23 12/29/23 16:31 17:30 19:53 WBC RBC Hgb Hct MCV MCH MCHC RDW Plt Count MPV Immature Gran % (Auto) Neut % (Auto) Lymph % (Auto) [place] % (Auto) Eos % (Auto) Baso % (Auto) Lymph # (Auto) [place] # (Auto) Eos # (Auto) Baso # (Auto) Abs Immat Gran (auto) Absolute Neuts (auto) Absolute Nucleated RBC Nucleated RBC % (auto) Sodium Potassium Chloride Carbon Dioxide Anion Gap BUN Creatinine Estim Creat Clear Calc Estimated GFR POC Glucose 285 H 242 H Random Glucose Fasting Glucose Estimat Average Glucose Hemoglobin A1c % Calcium Total Bilirubin Direct Bilirubin AST ALT Alkaline Phosphatase Ammonia Total Protein Albumin Triglycerides Cholesterol LDL Cholesterol, Calc HDL Cholesterol Vitamin B12 Folate TSH Urine Color Yellow Urine Appearance Cloudy Urine pH 7.5 Ur Specific [place] 1.020 Urine Protein Trace Urine Glucose (UA) Negative Urine Ketones Negative Urine Blood Trace H Urine Nitrite Positive H Ur Leukocyte Esterase Large (3+) H Urine RBC 0-2 Urine WBC 21-50 Ur Squamous Epith Cells 0-2 Urine Bacteria 3+ Hyaline Casts 0-2 Granular Casts Urine Yeast Stool Occult Blood Stl C. cayetanensis PCR Stool Rotavirus A PCR Stl Adenov F 40/41 PCR Stool Astrovirus (PCR) Stool Campylobacter PCR Stool Cryptosporidium PCR Stl Sh Tox Pr E STEC PCR Stool E coli O157 PCR Stl Enterotoxigenic E PCR Stool EPEC (PCR) Stool EAEC (PCR) Stl E. histolytica PCR Stool Giardia Lamblia PCR Stl P. shigelloides PCR Stool Salmonella PCR Stool Sapovirus (PCR) Stl Shigella/EIEC PCR St Y.enterocolitica PCR Stool Vibrio (PCR) Stl Vibrio cholerae PCR Stl Norovirus GI/GII PCR Valproic Acid C. difficile Tox B Gene C. difficile Toxin A&B C. difficile Interpret 12/30/23 12/30/23 12/30/23 07:09 11:03 16:34 WBC RBC Hgb Hct MCV MCH MCHC RDW Plt Count MPV Immature Gran % (Auto) Neut % (Auto) Lymph % (Auto) [place] % (Auto) Eos % (Auto) Baso % (Auto) Lymph # (Auto) [place] # (Auto) Eos # (Auto) Baso # (Auto) Abs Immat Gran (auto) Absolute Neuts (auto) Absolute Nucleated RBC Nucleated RBC % (auto) Sodium Potassium Chloride Carbon Dioxide Anion Gap BUN Creatinine Estim Creat Clear Calc Estimated GFR POC Glucose 112 331 H 459 H* Random Glucose Fasting Glucose Estimat Average Glucose Hemoglobin A1c % Calcium Total Bilirubin Direct Bilirubin AST ALT Alkaline Phosphatase Ammonia Total Protein Albumin Triglycerides Cholesterol LDL Cholesterol, Calc HDL Cholesterol Vitamin B12 Folate TSH Urine Color Urine Appearance Urine pH Ur Specific [place] Urine Protein Urine Glucose (UA) Urine Ketones Urine Blood Urine Nitrite Ur Leukocyte Esterase Urine RBC Urine WBC Ur Squamous Epith Cells Urine Bacteria Hyaline Casts Granular Casts Urine Yeast Stool Occult Blood Stl C. cayetanensis PCR Stool Rotavirus A PCR Stl Adenov F PCR Stool Astrovirus (PCR) Stool Campylobacter PCR Stool Cryptosporidium PCR Stl Sh Tox Pr E STEC PCR Stool E coli O157 PCR Stl Enterotoxigenic E PCR Stool EPEC (PCR) Stool EAEC (PCR) Stl E. histolytica PCR Stool Giardia Lamblia PCR Stl P. shigelloides PCR Stool Salmonella PCR Stool Sapovirus (PCR) Stl Shigella/EIEC PCR St Y.enterocolitica PCR Stool Vibrio (PCR) Stl Vibrio cholerae PCR Stl Norovirus GI/GII PCR Valproic Acid C. difficile Tox B Gene C. difficile Toxin A&B C. difficile Interpret 12/30/23 12/31/23 12/31/23 19:41 06:31 11:29 WBC RBC Hgb Hct MCV MCH MCHC RDW Plt Count MPV Immature Gran % (Auto) Neut % (Auto) Lymph % (Auto) [place] % (Auto) Eos % (Auto) Baso % (Auto) Lymph # (Auto) [place] # (Auto) Eos # (Auto) Baso # (Auto) Abs Immat Gran (auto) Absolute Neuts (auto) Absolute Nucleated RBC Nucleated RBC % (auto) Sodium Potassium Chloride Carbon Dioxide Anion Gap BUN Creatinine Estim Creat Clear Calc Estimated GFR POC Glucose 424 H* 232 H 349 H Random Glucose Fasting Glucose Estimat Average Glucose Hemoglobin A1c % Calcium Total Bilirubin Direct Bilirubin AST ALT Alkaline Phosphatase Ammonia Total Protein Albumin Triglycerides Cholesterol LDL Cholesterol, Calc HDL Cholesterol Vitamin B12 Folate TSH Urine Color Urine Appearance Urine pH Ur Specific [place] Urine Protein Urine Glucose (UA) Urine Ketones Urine Blood Urine Nitrite Ur Leukocyte Esterase Urine RBC Urine WBC Ur Squamous Epith Cells Urine Bacteria Hyaline Casts Granular Casts Urine Yeast Stool Occult Blood Stl C. cayetanensis PCR Stool Rotavirus A PCR Stl Adenov PCR Stool Astrovirus (PCR) Stool Campylobacter PCR Stool Cryptosporidium PCR Stl Sh Tox Pr E STEC PCR Stool E coli O157 PCR Stl Enterotoxigenic E PCR Stool EPEC (PCR) Stool EAEC (PCR) Stl E. histolytica PCR Stool Giardia Lamblia PCR Stl P. shigelloides PCR Stool Salmonella PCR Stool Sapovirus (PCR) Stl Shigella/EIEC PCR St Y.enterocolitica PCR Stool Vibrio (PCR) Stl Vibrio cholerae PCR Stl Norovirus GI/GII PCR Valproic Acid C. difficile Tox B Gene C. difficile Toxin A&B C. difficile Interpret 12/31/23 12/31/23 01/01/24 16:27 19:46 05:33 WBC RBC Hgb Hct MCV MCH MCHC RDW Plt Count MPV Immature Gran % (Auto) Neut % (Auto) Lymph % (Auto) [place] % (Auto) Eos % (Auto) Baso % (Auto) Lymph # (Auto) [place] # (Auto) Eos # (Auto) Baso # (Auto) Abs Immat Gran (auto) Absolute Neuts (auto) Absolute Nucleated RBC Nucleated RBC % (auto) Sodium Potassium Chloride Carbon Dioxide Anion Gap BUN Creatinine Estim Creat Clear Calc Estimated GFR POC Glucose 345 H 385 H* 207 H Random Glucose Fasting Glucose Estimat Average Glucose Hemoglobin A1c % Calcium Total Bilirubin Direct Bilirubin AST ALT Alkaline Phosphatase Ammonia Total Protein Albumin Triglycerides Cholesterol LDL Cholesterol, Calc HDL Cholesterol Vitamin B12 Folate TSH Urine Color Urine Appearance Urine pH Ur Specific [place] Urine Protein Urine Glucose (UA) Urine Ketones Urine Blood Urine Nitrite Ur Leukocyte Esterase Urine RBC Urine WBC Ur Squamous Epith Cells Urine Bacteria Hyaline Casts Granular Casts Urine Yeast Stool Occult Blood Stl C. cayetanensis PCR Stool Rotavirus A PCR Stl Adenov PCR Stool Astrovirus (PCR) Stool Campylobacter PCR Stool Cryptosporidium PCR Stl Sh Tox Pr E STEC PCR Stool E coli O157 PCR Stl Enterotoxigenic E PCR Stool EPEC (PCR) Stool EAEC (PCR) Stl E. histolytica PCR Stool Giardia Lamblia PCR Stl P. shigelloides PCR Stool Salmonella PCR Stool Sapovirus (PCR) Stl Shigella/EIEC PCR St Y.enterocolitica PCR Stool Vibrio (PCR) Stl Vibrio cholerae PCR Stl Norovirus GI/GII PCR Valproic Acid C. difficile Tox B Gene C. difficile Toxin A&B C. difficile Interpret Airway Mallampati Class: II TM Dist: <=3cm Denture: Upper Partial: Lower Loose/Missing/Broken Teeth: Yes, Upper and Lower Heart: ok Lungs: ok Assessment and Plan Final Anesthetic Review Family History of Problems with Anesthesia: No History of Problems with Anesthesia: No NPO: Yes ASA Class: III Final Preanesthetic Review: No Changes in Pt Med Stat, Meds/Allgs Chart Reviewed, Consent Obtained/Reviewed and Anes Risks/Benef Reviewed Patient Risk: Intermediate Procedure Risk: Intermediate Anesthetic Plan Anesthetic Plan: GA and Agree w/ Assess. and Plan Disposition: Standard PACU
--- NOTE | 2024-01-01 07:04 | HO.ECTPROC ---
ECT Procedure Note Diagnosis/Treatment Date of Service: 01/01/24 Diagnosis: Major Depressive Disorder and Catatonia Previous ECT Date: 12/27/23 Current Treatment Number: 7 Treatment: Series Interval Clinical Notes: Pt quiet no complaints cooperative with care has been reportedly responding well continue tx no side effects noted Time: Total time managing care of this patient today ____ minutes. ECT Settings Device: THYMATRON DGx Electrode Placement: Bitemporal Program/Pulse Width: 0.50 Energy Percent: 100 Seizure Duration By EEG (in seconds): 37 Medications Administration General Anesthetic: Etomidate (12) Muscle Relaxant: Succinylcholine (60) Ancillary Medications Anti-emetics: Zofran - Pre ECT Cardiovascular Medications: Glycopyrrolate (0.1) Miscillaneous Medications: Midazolam (1 mg) Airway Management Airway Management: Bag Mask Ventilation Treatment Recommendations No Changes Recommended: No change Pt Tolerated Procedure w/o Issue: Yes
[2024-01-01] MEDS: Acetaminophen 325 MG TABLET 650 MG PO ×2 (10:12→17:43)
[2024-01-01] MEDS: cefuroxime axetiL 250 MG TABLET PO ×2 (10:13→20:35)
[2024-01-01] MEDS: Multivitamin TABLET 1 TAB PO (10:13)
[2024-01-01] MEDS: Anastrozole 1 MG TABLET PO (10:13)
[2024-01-01] MEDS: Furosemide 20 MG TABLET PO (10:13)
[2024-01-01] MEDS: Aspirin 81 MG TAB.CHEW PO (10:13)
[2024-01-01] MEDS: amLODIPine Besylate 5 MG TABLET PO (10:14)
[2024-01-01] MEDS: Losartan Potassium 50 MG TABLET 100 MG PO (10:14)
[2024-01-01] MEDS: Thiamine HCL 100 MG TABLET PO (10:14)
[2024-01-01] MEDS: Omeprazole 20 MG CAPSULE.DR PO (10:14)
[2024-01-01] MEDS: Ferrous Sulfate 324 MG TABLET.DR PO (10:15)
[2024-01-01] MEDS: Magnesium Oxide 400 MG TABLET PO ×2 (10:15→20:35)
--- NOTE | 2024-01-01 12:14 | PM.EVENT ---
Event Note Date of Service: 01/01/24 Event Note: Rt proximal humerus fx X-rays reviewed Sling for comfort Encourage gentle ROM of the Elbow hand and wrist to avoid stiffness No lifting, pushing, pulling with RUE f/u out patient Time Spent With Patient Time: Total time managing care of this patient today ____ minutes.
--- NOTE | 2024-01-01 12:31 | P.PNPSI_ITS ---
Subjective Subjective Date of Service: 01/01/24 Reason For Visit: Major depressive disorder, severe, recurrent Subjective Notes: Conditional Voluntary Interim History: The nursing staff reported the patient had been pleasant, cooperative, she complained that she fell yesterday and hurt his right arm. We did a x-ray and showed a fracture or called Orthopedics and she is on a sling. She has been followed by orthopedics. Today she had ECT with no complications. On interview the patient denies new symptoms pleasant cooperative confused. Mental Status Exam Mental Status Exam Patient Appearance: Appropriate Patient Orientation: Person and Situation Level of Consciousness: Awake Patient Behavior: Guarded and Passive Mood Description: Withdrawn Affect Description: Constricted Patient Cognition Impaired: Yes Ability to Follow Directions: Good Speech Pattern: Clear Hallucinations: None Delusions: Not Present Thought Process: Distracted and Slowed Thinking Thought Content: positive for Basom and positive for Poverty of Content Judgement: Fair Diagnostics Vital Signs (24Hr): Vital Signs - 24 hr 12/31/23 20:00 01/01/24 05:45 01/01/24 06:32 Temperature 983 F H 97.6 F 96.8 F Pulse Rate 78 71 71 Respiratory Rate 16 16 16 Blood Pressure 121/98 H 117/57 L 135/63 Pulse Oximetry 96 98 Oxygen Delivery Method Room Air Room Air 01/01/24 07:37 01/01/24 07:42 01/01/24 07:47 Temperature 98.8 F Pulse Rate 113 H 105 H 108 H Respiratory Rate 20 20 20 Blood Pressure 134/85 121/70 124/78 Pulse Oximetry 96 95 95 Oxygen Delivery Method Room Air Room Air Room Air 01/01/24 07:52 01/01/24 08:00 01/01/24 08:08 Temperature 98.7 F 97.3 F 97.4 F Pulse Rate 102 H 95 95 Respiratory Rate 20 18 20 Blood Pressure 155/72 H 128/59 L 149/70 H Pulse Oximetry 96 98 96 Oxygen Delivery Method Room Air Room Air Room Air BMI result Body Mass Index 21.7 Labs 12/29/23 11:58 12/29/23 11:58 Labs: Laboratory Results - last 48 hr 12/30/23 12/30/23 12/31/23 16:34 19:41 06:31 POC Glucose 459 H* 424 H* 232 H 12/31/23 12/31/23 12/31/23 11:29 16:27 19:46 POC Glucose 349 H 345 H 385 H* 01/01/24 05:33 POC Glucose 207 H Imaging Radiology Impressions: ITS Impressions Chest X-Ray 12/03/23 12:20 IMPRESSION: 1. Chronic interstitial prominence without focal consolidative airspace opacity. 2. Densities along the left lower chest which may represent pleural calcifications versus soft tissue calcifications. Correlation with lateral radiograph could help further evaluate. Electronically signed by: Viral Smallwood MD 12/03/2023 01:33 PM EDT RP Head CT 12/03/23 13:17 IMPRESSION: 1. No acute intracranial abnormalities. No intracranial hemorrhage or mass effect. 2. Moderate small vessel ischemic changes in the hemispheric white matter. 3. 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 4. Age advanced cerebral and cerebellar involutional changes with prominent ventricles. Cannot definitively exclude a component of communicating hydrocephalus given the appearance. Head CT 12/10/23 21:05 IMPRESSION: No acute intracranial abnormality including hemorrhage, mass effect, hydrocephalus, or acute territorial edematous infarction. Electronically signed by: Juan Alberto Murdock MD 12/10/2023 10:07 PM EDT RP Shoulder X-Ray 01/01/24 09:08 IMPRESSION: Comminuted fracture of the right shoulder Electronically signed by: Sean Kirkpatrick MD 01/01/2024 10:25 AM EDT RP Medications Medications Current Medications Acetaminophen (Acetaminophen 325 Mg Tablet) 650 mg PO Q6H PRN PRN Reason: Headache/Pain Mild Scale (1-3) Last Admin: 01/01/24 10:12 Dose: 650 mg Al Hydroxide/Mg Hydroxide (Magnesium Hydrox/Alum Hydrox 30 Ml Oral.Susp) 30 ml PO Q6H PRN PRN Reason: Heartburn/Nausea Amlodipine Besylate (Amlodipine Besylate 5 Mg Tablet) 5 mg PO DAILY [facility]; Protocol Last Admin: 01/01/24 10:14 Dose: 5 mg Anastrozole (Anastrozole 1 Mg Tablet) 1 mg PO DAILY [facility] Last Admin: 01/01/24 10:13 Dose: 1 mg Aspirin (Aspirin 81 Mg Tab.Chew) 81 mg PO DAILY [facility] Last Admin: 01/01/24 10:13 Dose: 81 mg Atorvastatin Calcium (Atorvastatin Calcium 10 Mg Tablet) 10 mg PO BEDTIME TOVA Last Admin: 12/31/23 20:21 Dose: 10 mg Cefuroxime Axetil (Cefuroxime Axetil 250 Mg Tablet) 250 mg PO BID [facility] Stop: 01/05/24 09:01 Last Admin: 01/01/24 10:13 Dose: 250 mg Ferrous Sulfate (Ferrous Sulfate 324 Mg Tablet.Dr) 324 mg PO DAILY [facility] Last Admin: 01/01/24 10:15 Dose: 324 mg Furosemide (Furosemide 20 Mg Tablet) 20 mg PO DAILY [facility]; Protocol Last Admin: 01/01/24 10:13 Dose: 20 mg Glucose (Glucose Gel 15 Gm Gel..Gram.) 15 gm PO Q15M PRN; Protocol PRN Reason: per Hypoglycemia Standing Ord. Insulin Glargine (Insulin Glargine,Hum.Rec.Anlog 100 Unit/Ml 10 Ml Vial) 8 unit SUBCUT BEDTIME [facility] Last Admin: 12/31/23 20:19 Dose: 8 unit Insulin Human Lispro (Insulin Lispro 100 Unit/Ml 3 Ml Vial) 0 unit SUBCUT QIDACHS [facility]; Protocol Last Admin: 01/01/24 08:39 Dose: Not Given Lidocaine (Lidocaine 4 % Patch Adh..Patch) 1 patch TRANSDERMA DAILY [facility]; Protocol Loratadine (Loratadine 10 Mg Tablet) 10 mg PO BEDTIME [facility] Last Admin: 12/31/23 20:21 Dose: 10 mg Losartan Potassium (Losartan Potassium 50 Mg Tablet) 100 mg PO DAILY [facility]; Protocol Last Admin: 01/01/24 10:14 Dose: 100 mg Magnesium Hydroxide (Milk Of Magnesia 30 Ml Oral.Susp) 30 ml PO DAILY PRN PRN Reason: Constipation Last Admin: 12/29/23 12:36 Dose: 30 ml Magnesium Oxide (Magnesium Oxide 400 Mg Tablet) 400 mg PO BID [facility] Last Admin: 01/01/24 10:15 Dose: 400 mg Mirtazapine (Mirtazapine 30 Mg Tablet) 30 mg PO BEDTIME [facility] Last Admin: 12/31/23 20:21 Dose: 30 mg Multivitamins/Vitamin C (Multivitamin Tablet) 1 tab PO DAILY [facility] Last Admin: 01/01/24 10:13 Dose: 1 tab Nicotine Polacrilex (Nicotine Polacrilex 2 Mg Gum) 4 mg BUCCAL Q2H PRN PRN Reason: Nicotine Cravings Omeprazole (Omeprazole 20 Mg Capsule.Dr) 20 mg PO DAILY@0630 [facility] Last Admin: 01/01/24 10:14 Dose: 20 mg Risperidone (Risperidone 0.5 Mg Tablet) 0.5 mg PO BID PRN PRN Reason: Restlessness Thiamine HCl (Thiamine Hcl 100 Mg Tablet) 100 mg PO DAILY [facility] Last Admin: 01/01/24 10:14 Dose: 100 mg Trazodone HCl (Trazodone Hcl 50 Mg Tablet) 50 mg PO BEDTIME PRN PRN Reason: Insomnia Last Admin: 12/30/23 21:56 Dose: 50 mg Valproic Acid (Valproic Acid (As Sodium Salt) 250 Mg/5 Ml Solution) 250 mg PO BID [facility] Last Admin: 01/01/24 10:13 Dose: 250 mg Allergies Allergies Allergy/AdvReac Type Severity Reaction Status Date / Time atropine Allergy Unknown Shortness Verified 12/02/23 23:30 of Breath enoxaparin [From Lovenox] Allergy Unknown Unknown Verified 12/02/23 23:30 penicillin V Allergy Unknown Unknown Verified 03/19/23 07:30 pseudoephedrine [Aprodine] Allergy Unknown Unknown Verified 03/19/23 07:30 triprolidine [Aprodine] Allergy Unknown Unknown Verified 03/19/23 07:30 Assessment & Plan Assessment & Plan (1) Major depressive disorder with psychotic features: Status: Acute Code(s): F32.3 - Major depressive disorder, single episode, severe with psychotic features Assessment and Plan: 12/15/23: Continue tx plan Plan 73-year-old female with history of insulin-dependent type 2 diabetes, hypertension, hyperlipidemia, history of C diff colitis, hypothyroidism, heart failure preserved ejection fraction, cirrhosis admitted to [facility] for catatonia with consult placed to hospitalist service for ect risk stratification. Pt with class II risk on revised cardiac risk index given history of CHF though is clinically euvolemic on exam. Lungs are clear. Has known but no murmurs heard on exam. Would recommend checking EKG to assess for ECT prolongation prior to ECT treatment. Unable to assess ROS. Based on RCRI and known history of ECT with good tolerance there does not appear to be any acute medical contraindication that should preclude patient from undergoing ect. Appropriate anesthesia precautions should be taken given known history of BASIL. Plan 1. Continue with antibiotics since the patient has been diagnosed with a UTI. 2. Continue with same treatment. 3. continue with ECT 4. Family meeting. 5. Orthopedic consult we will follow his recommendations. 6. Tramadol 25 p.r.n. q.6 hours severe pain Reason for continued inpatient stay Substantial Risk for: inability to function, rapid decompensation and med/psych decompensation Time Spent With Patient Time: Total time managing care of this patient today __20__ minutes.
[2024-01-01 13:03] LABS: Glucose, Whole Blood 505 mg/dL (60-115)
[2024-01-01] MEDS: Insulin Lispro 100 UNIT/ML 3 ML VIAL SUBCUT ×3 (13:10→20:36)
--- NOTE | 2024-01-01 13:55 | MHC.CLN ---
F/U STQGE II TO [facility] APPEARS TO BE HEALED. PROTECTIVE DRESSING TO [facility]. RD TO FOLLOW UP WEEKLY POTENTIAL NUTRITIONAL RISK.
[2024-01-01 14:01] LABS: Glucose, Whole Blood 443 mg/dL (60-115)
[2024-01-01 15:41] LABS: Glucose, Whole Blood 384 mg/dL (60-115)
[2024-01-01] MEDS: traMADoL HCL 50 MG TABLET 25 MG PO (16:31)
[2024-01-01 16:41] LABS: Glucose, Whole Blood 353 mg/dL (60-115)
--- NOTE | 2024-01-01 18:14 | PC.NURSE ---
Addendum entered by Sammy Vasquez RN 01/02/24 07:20: Patient had been assessed on 01/01/24, bruise on right upper arm, abrasion on right elbow. Original Note: Patient had ECT this morning, when justowriter operator went to oyster picker patient from ECT, she reported right shoulder pain, face was grimacing. When asked if she had fallen stated No, when asked if she bumped into something stated No. Dr. Yung notified X-Ray ordered. X-Ray revealed a fracture, ortho consult was put in STAT. VS were obtained, Delaney reported 10/10 pain, Tylenol offered for pain with scheduled medications and accepted. Patient currently in bed. Sling was ordered as well as Tramadol was ordered for pain. Riconicol Charles () notified.
[2024-01-01 19:49] LABS: Glucose, Whole Blood 332 mg/dL (60-115)
[2024-01-01] MEDS: Mirtazapine 30 MG TABLET PO (20:35)
[2024-01-01] MEDS: Atorvastatin Calcium 10 MG TABLET PO (20:35)
[2024-01-01] MEDS: Loratadine 10 MG TABLET PO (20:35)
[2024-01-01] MEDS: Insulin Glargine,Hum.rec.anlog 100 UNIT/ML 10 ML VIAL 8 UNIT SUBCUT (20:35)
[2024-01-02] MEDS: Acetaminophen 325 MG TABLET 650 MG PO ×2 (06:41→13:42)
[2024-01-02 06:42] LABS: Glucose, Whole Blood 234 mg/dL (60-115)
[2024-01-02 08:00] VITALS: BP 158/71; PULSE 75; RESP 18; TEMP 36.2; O2SAT 100
--- NOTE | 2024-01-02 09:25 | HO.PSYCHPN ---
Subjective Subjective Date of Service: 01/02/24 Reason For Visit: Major depressive disorder, severe, recurrent Subjective Notes: Conditional Voluntary Interim History: The nursing staff reported the patient had been pleasant cooperative, no changes in her mental status, fully compliant with treatment. She is able to walk with help from staff. Today with the English-speaking nurse she was able to disclosed that she fell a couple of days ago in the bathroom and she was able to pull up herself. That is where she broke her shoulder. At this moment ortho is not suggesting any surgery or any other intervention besides the sling. Today we will have a family meeting Mental Status Exam Mental Status Exam Patient Appearance: Well Grooomed and Appropriate Patient Orientation: Person, Place and Situation Level of Consciousness: Awake and Follows Commands Patient Behavior: Appropriate and Cooperative Mood Description: Calm Affect Description: Constricted Patient Cognition Impaired: Yes Ability to Follow Directions: Good Speech Pattern: Clear Hallucinations: None Delusions: Not Present Thought Process: Distracted and Slowed Thinking Thought Content: positive for [place] and positive for Poverty of Content Judgement: Poor Diagnostics Vital Signs (24Hr): Vital Signs - 24 hr 01/01/24 13:17 01/01/24 20:00 Temperature 97.3 F 97.9 F Pulse Rate 95 81 Respiratory Rate 18 18 Blood Pressure 128/59 L 124/63 Pulse Oximetry 98 94 Oxygen Delivery Method Room Air BMI result Body Mass Index 21.7 Labs 12/29/23 11:58 12/29/23 11:58 Labs: Laboratory Results - last 48 hr 12/31/23 12/31/23 12/31/23 11:29 16:27 19:46 POC Glucose 349 H 345 H 385 H* 01/01/24 01/01/24 01/01/24 05:33 12:59 13:55 POC Glucose 207 H 505 H* 443 H* 01/01/24 01/01/24 01/01/24 15:35 16:36 19:44 POC Glucose 384 H* 353 H* 332 H 01/02/24 06:38 POC Glucose 234 H Imaging Radiology Impressions: ITS Impressions Chest X-Ray 12/03/23 12:20 IMPRESSION: 1. Chronic interstitial prominence without focal consolidative airspace opacity. 2. Densities along the left lower chest which may represent pleural calcifications versus soft tissue calcifications. Correlation with lateral radiograph could help further evaluate. Electronically signed by: Viral Smallwood MD 12/03/2023 01:33 PM EDT RP Head CT 12/03/23 13:17 IMPRESSION: 1. No acute intracranial abnormalities. No intracranial hemorrhage or mass effect. 2. Moderate small vessel ischemic changes in the hemispheric white matter. 3. 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 4. Age advanced cerebral and cerebellar involutional changes with prominent ventricles. Cannot definitively exclude a component of communicating hydrocephalus given the appearance. Head CT 12/10/23 21:05 IMPRESSION: No acute intracranial abnormality including hemorrhage, mass effect, hydrocephalus, or acute territorial edematous infarction. Electronically signed by: Juan Alberto Murdock MD 12/10/2023 10:07 PM EDT RP Shoulder X-Ray 01/01/24 09:08 IMPRESSION: Comminuted fracture of the right shoulder Electronically signed by: Sean Kirkpatrick MD 01/01/2024 10:25 AM EDT RP Medications Medications Current Medications Acetaminophen (Acetaminophen 325 Mg Tablet) 650 mg PO Q6H PRN PRN Reason: Headache/Pain Mild Scale (1-3) Last Admin: 01/02/24 06:41 Dose: 650 mg Al Hydroxide/Mg Hydroxide (Magnesium Hydrox/Alum Hydrox 30 Ml Oral.Susp) 30 ml PO Q6H PRN PRN Reason: Heartburn/Nausea Amlodipine Besylate (Amlodipine Besylate 5 Mg Tablet) 5 mg PO DAILY [facility]; Protocol Last Admin: 01/01/24 10:14 Dose: 5 mg Anastrozole (Anastrozole 1 Mg Tablet) 1 mg PO DAILY [facility] Last Admin: 01/01/24 10:13 Dose: 1 mg Aspirin (Aspirin 81 Mg Tab.Chew) 81 mg PO DAILY [facility] Last Admin: 01/01/24 10:13 Dose: 81 mg Atorvastatin Calcium (Atorvastatin Calcium 10 Mg Tablet) 10 mg PO BEDTIME [facility] Last Admin: 01/01/24 20:35 Dose: 10 mg Cefuroxime Axetil (Cefuroxime Axetil 250 Mg Tablet) 250 mg PO BID [facility] Stop: 01/05/24 09:01 Last Admin: 01/01/24 20:35 Dose: 250 mg Ferrous Sulfate (Ferrous Sulfate 324 Mg Tablet.Dr) 324 mg PO DAILY [facility] Last Admin: 01/01/24 10:15 Dose: 324 mg Furosemide (Furosemide 20 Mg Tablet) 20 mg PO DAILY [facility]; Protocol Last Admin: 01/01/24 10:13 Dose: 20 mg Glucose (Glucose Gel 15 Gm Gel..Gram.) 15 gm PO Q15M PRN; Protocol PRN Reason: per Hypoglycemia Standing Ord. Insulin Glargine (Insulin Glargine,Hum.Rec.Anlog 100 Unit/Ml 10 Ml Vial) 8 unit SUBCUT BEDTIME [facility] Last Admin: 01/01/24 20:35 Dose: 8 unit Insulin Human Lispro (Insulin Lispro 100 Unit/Ml 3 Ml Vial) 0 unit SUBCUT QIDACHS [facility]; Protocol Last Admin: 01/01/24 20:36 Dose: 10 unit Lidocaine (Lidocaine 4 % Patch Adh..Patch) 1 patch TRANSDERMA DAILY [facility]; Protocol Last Admin: 01/01/24 13:12 Dose: Not Given Loratadine (Loratadine 10 Mg Tablet) 10 mg PO BEDTIME [facility] Last Admin: 01/01/24 20:35 Dose: 10 mg Losartan Potassium (Losartan Potassium 50 Mg Tablet) 100 mg PO DAILY [facility]; Protocol Last Admin: 01/01/24 10:14 Dose: 100 mg Magnesium Hydroxide (Milk Of Magnesia 30 Ml Oral.Susp) 30 ml PO DAILY PRN PRN Reason: Constipation Last Admin: 12/29/23 12:36 Dose: 30 ml Magnesium Oxide (Magnesium Oxide 400 Mg Tablet) 400 mg PO BID [facility] Last Admin: 01/01/24 20:35 Dose: 400 mg Mirtazapine (Mirtazapine 30 Mg Tablet) 30 mg PO BEDTIME [facility] Last Admin: 01/01/24 20:35 Dose: 30 mg Multivitamins/Vitamin C (Multivitamin Tablet) 1 tab PO DAILY [facility] Last Admin: 01/01/24 10:13 Dose: 1 tab Nicotine Polacrilex (Nicotine Polacrilex 2 Mg Gum) 4 mg BUCCAL Q2H PRN PRN Reason: Nicotine Cravings Omeprazole (Omeprazole 20 Mg Capsule.) 20 mg PO DAILY@0630 [facility] Last Admin: 01/02/24 05:42 Dose: Not Given Risperidone (Risperidone 0.5 Mg Tablet) 0.5 mg PO BID PRN PRN Reason: Restlessness Thiamine HCl (Thiamine Hcl 100 Mg Tablet) 100 mg PO DAILY [facility] Last Admin: 01/01/24 10:14 Dose: 100 mg Tramadol HCl (Tramadol Hcl 50 Mg Tablet) 25 mg PO Q6H PRN PRN Reason: Pain, Severe (Pain Scale 7-10) Last Admin: 01/01/24 16:31 Dose: 25 mg Trazodone HCl (Trazodone Hcl 50 Mg Tablet) 50 mg PO BEDTIME PRN PRN Reason: Insomnia Last Admin: 12/30/23 21:56 Dose: 50 mg Valproic Acid (Valproic Acid (As Sodium Salt) 250 Mg/5 Ml Solution) 250 mg PO BID [facility] Last Admin: 01/01/24 20:35 Dose: 250 mg Allergies Allergies Allergy/AdvReac Type Severity Reaction Status Date / Time atropine Allergy Unknown Shortness Verified 12/02/23 23:30 of Breath enoxaparin [From Lovenox] Allergy Unknown Unknown Verified 12/02/23 23:30 penicillin V Allergy Unknown Unknown Verified 03/19/23 07:30 pseudoephedrine [Aprodine] Allergy Unknown Unknown Verified 03/19/23 07:30 triprolidine [Aprodine] Allergy Unknown Unknown Verified 03/19/23 07:30 Assessment & Plan Assessment & Plan (1) Major depressive disorder with psychotic features: Status: Acute Code(s): F32.3 - Major depressive disorder, single episode, severe with psychotic features Assessment and Plan: 12/15/23: Continue tx plan Plan 73-year-old female with history of insulin-dependent type 2 diabetes, hypertension, hyperlipidemia, history of C diff colitis, hypothyroidism, heart failure preserved ejection fraction, cirrhosis admitted to [facility] for catatonia with consult placed to hospitalist service for ect risk stratification. Pt with class II risk on revised cardiac risk index given history of CHF though is clinically euvolemic on exam. Lungs are clear. Has known but no murmurs heard on exam. Would recommend checking EKG to assess for ECT prolongation prior to ECT treatment. Unable to assess ROS. Based on RCRI and known history of ECT with good tolerance there does not appear to be any acute medical contraindication that should preclude patient from undergoing ect. Appropriate anesthesia precautions should be taken given known history of BASIL. Plan 1. Continue with antibiotics since the patient has been diagnosed with a UTI. 2. Continue with same treatment. 3. continue with ECT 4. Family meeting. 5. Orthopedic consult we will follow his recommendations. 6. Tramadol 25 p.r.n. q.6 hours severe pain Reason for continued inpatient stay Substantial Risk for: inability to function, rapid decompensation and med/psych decompensation Time Spent With Patient Time: Total time managing care of this patient today __20__ minutes.
[2024-01-02] MEDS: Insulin Lispro 100 UNIT/ML 3 ML VIAL SUBCUT ×4 (09:28→20:52)
[2024-01-02] MEDS: Ferrous Sulfate 324 MG TABLET.DR PO (09:29)
[2024-01-02] MEDS: Furosemide 20 MG TABLET PO (09:29)
[2024-01-02] MEDS: Multivitamin TABLET 1 TAB PO (09:29)
[2024-01-02] MEDS: traMADoL HCL 50 MG TABLET 25 MG PO ×2 (09:29→15:20)
[2024-01-02] MEDS: amLODIPine Besylate 5 MG TABLET PO (09:29)
[2024-01-02] MEDS: Anastrozole 1 MG TABLET PO (09:30)
[2024-01-02] MEDS: Aspirin 81 MG TAB.CHEW PO (09:30)
[2024-01-02] MEDS: Magnesium Oxide 400 MG TABLET PO ×2 (09:30→20:43)
[2024-01-02] MEDS: Thiamine HCL 100 MG TABLET PO (09:30)
[2024-01-02] MEDS: Losartan Potassium 50 MG TABLET 100 MG PO (09:30)
[2024-01-02] MEDS: Omeprazole 20 MG CAPSULE.DR PO (09:30)
[2024-01-02] MEDS: cefuroxime axetiL 250 MG TABLET PO ×2 (09:30→20:43)
[2024-01-02 11:07] LABS: Glucose, Whole Blood 223 mg/dL (60-115)
--- NOTE | 2024-01-02 11:20 | HO.POSTANES ---
Post Anesthesia Evaluation Post Anesthesia Evaluation Date of Service: 01/01/24 Vital Signs: Vital Signs Temp Pulse Resp BP Pulse Ox O2 Del Method 01/02/24 08:00 97.1 F 75 18 158/71 H 100 Room Air Anesthesia: General Mental Status: Awake Pain Control: Satisfactory Nausea/Vomiting: None Hydration: Adequate Anesthesia-Related Issues: No Anes. Related Issues
[2024-01-02] MEDS: Lidocaine 4 % Patch ADH..PATCH 1 PATCH TRANSDERMA (13:42)
[2024-01-02 16:26] LABS: Glucose, Whole Blood 337 mg/dL (60-115)
[2024-01-02] MEDS: oxyCODONE HCl Immed Release 5 MG TABLET PO (18:06)
[2024-01-02 19:54] LABS: Glucose, Whole Blood 389 mg/dL (60-115)
[2024-01-02 20:00] VITALS: BP 111/55; PULSE 74; RESP 18; TEMP 36.4; O2SAT 99
[2024-01-02] MEDS: Loratadine 10 MG TABLET PO (20:43)
[2024-01-02] MEDS: Mirtazapine 30 MG TABLET PO (20:43)
[2024-01-02] MEDS: Atorvastatin Calcium 10 MG TABLET PO (20:43)
[2024-01-02] MEDS: Insulin Glargine,Hum.rec.anlog 100 UNIT/ML 10 ML VIAL 8 UNIT SUBCUT (21:01)
[2024-01-03] VITALS (10 sets, daily range): BP systolic 123–174; BP diastolic 57–99; PULSE 82–107; RESP 16–20; TEMP 35.9–37.1; O2SAT 96–100
[2024-01-03 06:49] LABS: Glucose, Whole Blood 203 mg/dL (60-115)
--- NOTE | 2024-01-03 09:20 | MHC.SHP ---
Pre-Procedural Eval Section A - 24 Hr Update-Section A only Date of Service: 01/03/24 The patient is an INPATIENT: Yes Changes since office visit: Yes Cold of Flu in the past 2 weeks and Yes New Medical Problems; No Changes in Medication and No Patient answered all questions The patient has been examined within 24 hours of the surgical procedure. The History & Physical has been completed within 30 days and I have reviewed it.: Yes Section B - Complete if H&P > 30 days Chief Complaint: Major depressive disorder, severe, recurrent Allergies: Allergies Allergy/AdvReac Type Severity Reaction Status Date / Time atropine Allergy Unknown Shortness Verified 12/02/23 23:30 of Breath enoxaparin [From Lovenox] Allergy Unknown Unknown Verified 12/02/23 23:30 penicillin V Allergy Unknown Unknown Verified 03/19/23 07:30 pseudoephedrine [Aprodine] Allergy Unknown Unknown Verified 03/19/23 07:30 triprolidine [Aprodine] Allergy Unknown Unknown Verified 03/19/23 07:30 Plan I have reviewed the history and physical and performed a pertinent physical examination on my patient. No changes have occurred unless specified. Time Spent With Patient Time: Total time managing care of this patient today ____ minutes.
--- NOTE | 2024-01-03 09:57 | HO.ECTPROC ---
ECT Procedure Note Diagnosis/Treatment Date of Service: 01/03/24 Diagnosis: Major Depressive Disorder and Catatonia Previous ECT Date: 01/01/24 Current Treatment Number: 8 Treatment: Series Interval Clinical Notes: Pt quiet no complaints cooperative with care has been reportedly responding well continue tx no side effects noted some r shoulder pain s/p fx ? date glyco not used Time: Total time managing care of this patient today ____ minutes. ECT Settings Device: THYMATRON DGx Electrode Placement: Bitemporal Program/Pulse Width: 0.50 Energy Percent: 100 Seizure Duration By EEG (in seconds): 38 Medications Administration General Anesthetic: Etomidate (12) Muscle Relaxant: Succinylcholine (60) Ancillary Medications Anti-emetics: Zofran - Pre ECT Miscillaneous Medications: Midazolam (1 mg) Airway Management Airway Management: Bag Mask Ventilation Treatment Recommendations No Changes Recommended: No change Pt Tolerated Procedure w/o Issue: Yes
[2024-01-03 11:03] LABS: Glucose, Whole Blood 237 mg/dL (60-115)
[2024-01-03] MEDS: cefuroxime axetiL 250 MG TABLET PO ×2 (11:34→20:37)
[2024-01-03] MEDS: Aspirin 81 MG TAB.CHEW PO (11:34)
[2024-01-03] MEDS: Losartan Potassium 50 MG TABLET 100 MG PO (11:35)
[2024-01-03] MEDS: Magnesium Oxide 400 MG TABLET PO ×2 (11:35→20:37)
[2024-01-03] MEDS: amLODIPine Besylate 5 MG TABLET PO (11:35)
[2024-01-03] MEDS: oxyCODONE HCl Immed Release 5 MG TABLET PO ×3 (11:35→20:37)
[2024-01-03] MEDS: Ferrous Sulfate 324 MG TABLET.DR PO (11:35)
[2024-01-03] MEDS: Multivitamin TABLET 1 TAB PO (11:36)
[2024-01-03] MEDS: Divalproex Sodium Sprinkles 125 MG CAP.DR.SPR 250 MG PO ×2 (11:36→20:36)
[2024-01-03] MEDS: Thiamine HCL 100 MG TABLET PO (11:36)
[2024-01-03] MEDS: Lidocaine 4 % Patch ADH..PATCH 1 PATCH TRANSDERMA (11:37)
[2024-01-03] MEDS: Anastrozole 1 MG TABLET PO (11:45)
[2024-01-03] MEDS: Furosemide 20 MG TABLET PO (11:47)
[2024-01-03] MEDS: Insulin Lispro 100 UNIT/ML 3 ML VIAL SUBCUT ×3 (11:54→20:43)
--- NOTE | 2024-01-03 15:06 | HO.PSYCHPN ---
Subjective Subjective Date of Service: 01/03/24 Reason For Visit: Major depressive disorder, severe, recurrent Subjective Notes: Conditional Voluntary Interim History: The nursing staff reported the patient had been cooperative, she is walking with assist. The nursing staff asked change Depakote to Depakote Sprinkles. On interview the patient denies new symptoms, she denies side effects with ECT. Still with some pain. Mental Status Exam Mental Status Exam Patient Appearance: Appropriate Patient Orientation: Person and Situation Level of Consciousness: Awake and Appropriate Patient Behavior: Guarded and Passive Mood Description: Calm Affect Description: Constricted Patient Cognition Impaired: Yes Ability to Follow Directions: Good Speech Pattern: Clear Hallucinations: None Delusions: Not Present Thought Process: Distracted and Slowed Thinking Thought Content: positive for [place] and positive for Poverty of Content Judgement: Fair Diagnostics Vital Signs (24Hr): Vital Signs - 24 hr 01/02/24 20:00 01/03/24 08:25 01/03/24 09:27 Temperature 97.6 F 98.3 F 98.7 F Pulse Rate 74 82 107 H Respiratory Rate 18 16 18 Blood Pressure 111/55 L 174/73 H 160/69 H Pulse Oximetry 99 96 99 Oxygen Delivery Method Room Air Room Air Nasal Cannula with ETCO2 Oxygen Flow Rate 2 01/03/24 09:32 01/03/24 09:37 01/03/24 09:42 Temperature Pulse Rate 88 90 88 Respiratory Rate 20 20 20 Blood Pressure 173/78 H 166/79 H 146/77 H Pulse Oximetry 99 100 97 Oxygen Delivery Method Nasal Cannula with ETCO2 Nasal Cannula with ETCO2 Room Air Oxygen Flow Rate 2 2 01/03/24 09:57 01/03/24 10:12 01/03/24 10:25 Temperature 98.7 F 98.7 F Pulse Rate 87 87 88 Respiratory Rate 20 20 20 Blood Pressure 132/99 H 139/65 138/67 Pulse Oximetry 98 98 98 Oxygen Delivery Method Room Air Room Air Room Air Oxygen Flow Rate 01/03/24 11:30 Temperature 96.7 F L Pulse Rate 87 Respiratory Rate 16 Blood Pressure 148/81 H Pulse Oximetry 100 Oxygen Delivery Method Room Air Oxygen Flow Rate BMI result Body Mass Index 21.7 Labs 12/29/23 11:58 12/29/23 11:58 Labs: Laboratory Results - last 48 hr 09/18/24 09/18/24 09/18/24 15:35 16:36 19:44 POC Glucose 384 H* 353 H* 332 H 01/02/24 01/02/24 01/02/24 06:38 11:01 16:21 POC Glucose 234 H 223 H 337 H 01/02/24 01/03/24 01/03/24 19:50 06:43 10:58 POC Glucose 389 H* 203 H 237 H Imaging Radiology Impressions: ITS Impressions Chest X-Ray 12/03/23 12:20 IMPRESSION: 1. Chronic interstitial prominence without focal consolidative airspace opacity. 2. Densities along the left lower chest which may represent pleural calcifications versus soft tissue calcifications. Correlation with lateral radiograph could help further evaluate. Electronically signed by: Viral Smallwood MD 12/03/2023 01:33 PM EDT RP Head CT 12/03/23 13:17 IMPRESSION: 1. No acute intracranial abnormalities. No intracranial hemorrhage or mass effect. 2. Moderate small vessel ischemic changes in the hemispheric white matter. 3. 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 4. Age advanced cerebral and cerebellar involutional changes with prominent ventricles. Cannot definitively exclude a component of communicating hydrocephalus given the appearance. Head CT 12/10/23 21:05 IMPRESSION: No acute intracranial abnormality including hemorrhage, mass effect, hydrocephalus, or acute territorial edematous infarction. Electronically signed by: Juan Alberto Murdock MD 12/10/2023 10:07 PM EDT RP Shoulder X-Ray 01/01/24 09:08 IMPRESSION: Comminuted fracture of the right shoulder Electronically signed by: Sean Kirkpatrick MD 01/01/2024 10:25 AM EDT RP Medications Medications Current Medications Acetaminophen (Acetaminophen 325 Mg Tablet) 650 mg PO Q6H PRN PRN Reason: Headache/Pain Mild Scale (1-3) Last Admin: 01/02/24 13:42 Dose: 650 mg Al Hydroxide/Mg Hydroxide (Magnesium Hydrox/Alum Hydrox 30 Ml Oral.Susp) 30 ml PO Q6H PRN PRN Reason: Heartburn/Nausea Amlodipine Besylate (Amlodipine Besylate 5 Mg Tablet) 5 mg PO DAILY [facility]; Protocol Last Admin: 01/03/24 11:35 Dose: 5 mg Anastrozole (Anastrozole 1 Mg Tablet) 1 mg PO DAILY [facility] Last Admin: 01/03/24 11:45 Dose: 1 mg Aspirin (Aspirin 81 Mg Tab.Chew) 81 mg PO DAILY [facility] Last Admin: 01/03/24 11:34 Dose: 81 mg Atorvastatin Calcium (Atorvastatin Calcium 10 Mg Tablet) 10 mg PO BEDTIME [facility] Last Admin: 01/02/24 20:43 Dose: 10 mg Cefuroxime Axetil (Cefuroxime Axetil 250 Mg Tablet) 250 mg PO BID [facility] Stop: 01/05/24 09:01 Last Admin: 01/03/24 11:34 Dose: 250 mg Divalproex Sodium (Divalproex Sodium Sprinkles 125 Mg Cap.Spr) 250 mg PO BID [facility] Last Admin: 01/03/24 11:36 Dose: 250 mg Ferrous Sulfate (Ferrous Sulfate 324 Mg Tablet.Dr) 324 mg PO DAILY [facility] Last Admin: 01/03/24 11:35 Dose: 324 mg Furosemide (Furosemide 20 Mg Tablet) 20 mg PO DAILY [facility]; Protocol Last Admin: 01/03/24 11:47 Dose: 20 mg Glucose (Glucose Gel 15 Gm Gel..Gram.) 15 gm PO Q15M PRN; Protocol PRN Reason: per Hypoglycemia Standing Ord. Lactated Ringer's (Lr) 500 mls @ 20 mls/hr IVCONT .Q24H [facility] Insulin Glargine (Insulin Glargine,Hum.Rec.Anlog 100 Unit/Ml 10 Ml Vial) 8 unit SUBCUT BEDTIME [facility] Last Admin: 01/02/24 21:01 Dose: 8 unit Insulin Human Lispro (Insulin Lispro 100 Unit/Ml 3 Ml Vial) 0 unit SUBCUT QIDACHS [facility]; Protocol Last Admin: 01/03/24 11:54 Dose: 4 unit Lidocaine (Lidocaine 4 % Patch Adh..Patch) 1 patch TRANSDERMA DAILY [facility]; Protocol Last Admin: 01/03/24 11:37 Dose: 1 patch Loratadine (Loratadine 10 Mg Tablet) 10 mg PO BEDTIME [facility] Last Admin: 01/02/24 20:43 Dose: 10 mg Losartan Potassium (Losartan Potassium 50 Mg Tablet) 100 mg PO DAILY [facility]; Protocol Last Admin: 01/03/24 11:35 Dose: 100 mg Magnesium Hydroxide (Milk Of Magnesia 30 Ml Oral.Susp) 30 ml PO DAILY PRN PRN Reason: Constipation Last Admin: 12/29/23 12:36 Dose: 30 ml Magnesium Oxide (Magnesium Oxide 400 Mg Tablet) 400 mg PO BID [facility] Last Admin: 01/03/24 11:35 Dose: 400 mg Mirtazapine (Mirtazapine 30 Mg Tablet) 30 mg PO BEDTIME [facility] Last Admin: 01/02/24 20:43 Dose: 30 mg Multivitamins/Vitamin C (Multivitamin Tablet) 1 tab PO DAILY [facility] Last Admin: 01/03/24 11:36 Dose: 1 tab Naloxone HCl (Naloxone Hcl 0.4 Mg/Ml Vial) 0.04 mg IVPUSH Q5M PRN PRN Reason: Excessive sedation or RR < 8 Nicotine Polacrilex (Nicotine Polacrilex 2 Mg Gum) 4 mg BUCCAL Q2H PRN PRN Reason: Nicotine Cravings Omeprazole (Omeprazole 20 Mg Capsule.Dr) 20 mg PO DAILY@0630 [facility] Last Admin: 01/03/24 05:26 Dose: Not Given Oxycodone HCl (Oxycodone Hcl Immed Release 5 Mg Tablet) 5 mg PO Q4H PRN PRN Reason: Pain, Severe (Pain Scale 7-10) Last Admin: 01/03/24 11:35 Dose: 5 mg Risperidone (Risperidone 0.5 Mg Tablet) 0.5 mg PO BID PRN PRN Reason: Restlessness Thiamine HCl (Thiamine Hcl 100 Mg Tablet) 100 mg PO DAILY [facility] Last Admin: 01/03/24 11:36 Dose: 100 mg Tramadol HCl (Tramadol Hcl 50 Mg Tablet) 25 mg PO Q6H PRN PRN Reason: Pain, Moderate(Pain Scale 4-6) Trazodone HCl (Trazodone Hcl 50 Mg Tablet) 50 mg PO BEDTIME PRN PRN Reason: Insomnia Last Admin: 12/30/23 21:56 Dose: 50 mg Allergies Allergies Allergy/AdvReac Type Severity Reaction Status Date / Time atropine Allergy Unknown Shortness Verified 12/02/23 23:30 of Breath enoxaparin [From Lovenox] Allergy Unknown Unknown Verified 12/02/23 23:30 penicillin V Allergy Unknown Unknown Verified 03/19/23 07:30 pseudoephedrine [Aprodine] Allergy Unknown Unknown Verified 03/19/23 07:30 triprolidine [Aprodine] Allergy Unknown Unknown Verified 03/19/23 07:30 Assessment & Plan Assessment & Plan (1) Major depressive disorder with psychotic features: Status: Acute Code(s): F32.3 - Major depressive disorder, single episode, severe with psychotic features Assessment and Plan: 12/15/23: Continue tx plan Plan 73-year-old female with history of insulin-dependent type 2 diabetes, hypertension, hyperlipidemia, history of C diff colitis, hypothyroidism, heart failure preserved ejection fraction, cirrhosis admitted to [facility] for catatonia with consult placed to hospitalist service for ect risk stratification. Pt with class II risk on revised cardiac risk index given history of CHF though is clinically euvolemic on exam. Lungs are clear. Has known but no murmurs heard on exam. Would recommend checking EKG to assess for ECT prolongation prior to ECT treatment. Unable to assess ROS. Based on RCRI and known history of ECT with good tolerance there does not appear to be any acute medical contraindication that should preclude patient from undergoing ect. Appropriate anesthesia precautions should be taken given known history of BASIL. Plan 1. Continue with antibiotics since the patient has been diagnosed with a UTI. 2. Continue with same treatment. 3. continue with ECT 4. Family meeting. 5. Orthopedic consult we will follow his recommendations. 6. Tramadol 25 p.r.n. q.6 hours moderate pain 7. Oxycodone 5 mg p.o. Q 4 hours p.r.n. severe pain Reason for continued inpatient stay Substantial Risk for: inability to function, rapid decompensation and med/psych decompensation Time Spent With Patient Time: Total time managing care of this patient today __20__ minutes.
[2024-01-03 16:46] LABS: Glucose, Whole Blood 438 mg/dL (60-115)
[2024-01-03] MEDS: traMADoL HCL 50 MG TABLET 25 MG PO (17:11)
[2024-01-03 18:43] LABS: Glucose, Whole Blood 319 mg/dL (60-115)
[2024-01-03 19:58] LABS: Glucose, Whole Blood 266 mg/dL (60-115)
[2024-01-03] MEDS: Atorvastatin Calcium 10 MG TABLET PO (20:36)
[2024-01-03] MEDS: Loratadine 10 MG TABLET PO (20:37)
[2024-01-03] MEDS: Mirtazapine 30 MG TABLET PO (20:37)
[2024-01-03] MEDS: Insulin Glargine,Hum.rec.anlog 100 UNIT/ML 10 ML VIAL 8 UNIT SUBCUT (20:43)
[2024-01-04] MEDS: Omeprazole 20 MG CAPSULE.DR PO (06:11)
[2024-01-04 06:58] LABS: Glucose, Whole Blood 211 mg/dL (60-115)
[2024-01-04 08:00] VITALS: BP 159/75; PULSE 78; RESP 15; TEMP 36.3; O2SAT 95
[2024-01-04] MEDS: Multivitamin TABLET 1 TAB PO (09:32)
[2024-01-04] MEDS: Divalproex Sodium Sprinkles 125 MG CAP.DR.SPR 250 MG PO ×2 (09:32→20:35)
[2024-01-04 09:33] VITALS: BP 159/75
[2024-01-04] MEDS: amLODIPine Besylate 5 MG TABLET PO (09:33)
[2024-01-04] MEDS: Losartan Potassium 50 MG TABLET 100 MG PO (09:33)
[2024-01-04 09:34] VITALS: BP 159/75
[2024-01-04] MEDS: Thiamine HCL 100 MG TABLET PO (09:34)
[2024-01-04] MEDS: Aspirin 81 MG TAB.CHEW PO (09:34)
[2024-01-04] MEDS: cefuroxime axetiL 250 MG TABLET PO ×2 (09:34→20:34)
[2024-01-04] MEDS: Anastrozole 1 MG TABLET PO (09:34)
[2024-01-04] MEDS: Ferrous Sulfate 324 MG TABLET.DR PO (09:34)
[2024-01-04] MEDS: Magnesium Oxide 400 MG TABLET PO ×2 (09:34→20:34)
[2024-01-04] MEDS: Furosemide 20 MG TABLET PO (09:34)
[2024-01-04] MEDS: traMADoL HCL 50 MG TABLET 25 MG PO ×2 (09:55→16:41)
[2024-01-04] MEDS: Lidocaine 4 % Patch ADH..PATCH 1 PATCH TRANSDERMA (09:57)
--- NOTE | 2024-01-04 11:15 | HO.PSYCHPN ---
Subjective Subjective Date of Service: 01/04/24 Reason For Visit: Major depressive disorder, severe, recurrent Subjective Notes: Conditional Voluntary Interim History: Patient was seen and discussed in rounds today. Records and plans were reviewed. She continues to be on one-to-one observation. She continues to have a permanent Meek catheter. Generally has been brighter since receiving ECT. No complaints. No changes were made today. There is an order for Ringer's lactate IV which I put on hold, assuming that it is for her ECT treatment. Review of Systems Review of Systems Yes all other systems are reviewed and are negative Mental Status Exam Mental Status Exam Patient Appearance: Appropriate Patient Orientation: Person and Situation Level of Consciousness: Awake and Appropriate Patient Behavior: Guarded and Passive Mood Description: Calm Affect Description: Constricted Patient Cognition Impaired: Yes Ability to Follow Directions: Good Speech Pattern: Clear Hallucinations: None Delusions: Not Present Thought Process: Distracted and Slowed Thinking Thought Content: positive for [place] and positive for Poverty of Content Judgement: Fair Diagnostics Vital Signs (24Hr): Vital Signs - 24 hr 01/03/24 11:30 01/03/24 20:00 01/04/24 08:00 Temperature 96.7 F L 97.9 F 97.4 F Pulse Rate 87 91 78 Respiratory Rate 16 18 15 Blood Pressure 148/81 H 123/57 L 159/75 H Pulse Oximetry 100 96 95 Oxygen Delivery Method Room Air Room Air Room Air 01/04/24 09:33 01/04/24 09:33 01/04/24 09:34 Temperature Pulse Rate Respiratory Rate Blood Pressure 159/75 H 159/75 H 159/75 H Pulse Oximetry Oxygen Delivery Method BMI result Body Mass Index 21.7 Labs 12/29/23 11:58 12/29/23 11:58 Labs: Laboratory Results - last 48 hr 01/02/24 01/02/24 01/03/24 16:21 19:50 06:43 POC Glucose 337 H 389 H* 203 H 01/03/24 01/03/24 01/03/24 10:58 16:42 18:39 POC Glucose 237 H 438 H* 319 H 01/03/24 01/04/24 19:54 06:52 POC Glucose 266 H 211 H Imaging Radiology Impressions: ITS Impressions Chest X-Ray 12/03/23 12:20 IMPRESSION: 1. Chronic interstitial prominence without focal consolidative airspace opacity. 2. Densities along the left lower chest which may represent pleural calcifications versus soft tissue calcifications. Correlation with lateral radiograph could help further evaluate. Electronically signed by: Viral Smallwood MD 12/03/2023 01:33 PM EDT RP Head CT 12/03/23 13:17 IMPRESSION: 1. No acute intracranial abnormalities. No intracranial hemorrhage or mass effect. 2. Moderate small vessel ischemic changes in the hemispheric white matter. 3. 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 4. Age advanced cerebral and cerebellar involutional changes with prominent ventricles. Cannot definitively exclude a component of communicating hydrocephalus given the appearance. Head CT 12/10/23 21:05 IMPRESSION: No acute intracranial abnormality including hemorrhage, mass effect, hydrocephalus, or acute territorial edematous infarction. Electronically signed by: Juan Alberto Murdock MD 12/10/2023 10:07 PM EDT RP Shoulder X-Ray 01/01/24 09:08 IMPRESSION: Comminuted fracture of the right shoulder Electronically signed by: Sean Kirkpatrick MD 01/01/2024 10:25 AM EDT RP Medications Medications Current Medications Acetaminophen (Acetaminophen 325 Mg Tablet) 650 mg PO Q6H PRN PRN Reason: Headache/Pain Mild Scale (1-3) Last Admin: 01/02/24 13:42 Dose: 650 mg Al Hydroxide/Mg Hydroxide (Magnesium Hydrox/Alum Hydrox 30 Ml Oral.Susp) 30 ml PO Q6H PRN PRN Reason: Heartburn/Nausea Amlodipine Besylate (Amlodipine Besylate 5 Mg Tablet) 5 mg PO DAILY [facility]; Protocol Last Admin: 01/04/24 09:33 Dose: 5 mg Anastrozole (Anastrozole 1 Mg Tablet) 1 mg PO DAILY [facility] Last Admin: 01/04/24 09:34 Dose: 1 mg Aspirin (Aspirin 81 Mg Tab.Chew) 81 mg PO DAILY [facility] Last Admin: 01/04/24 09:34 Dose: 81 mg Atorvastatin Calcium (Atorvastatin Calcium 10 Mg Tablet) 10 mg PO BEDTIME [facility] Last Admin: 01/03/24 20:36 Dose: 10 mg Cefuroxime Axetil (Cefuroxime Axetil 250 Mg Tablet) 250 mg PO BID [facility] Stop: 01/05/24 09:01 Last Admin: 01/04/24 09:34 Dose: 250 mg Divalproex Sodium (Divalproex Sodium Sprinkles 125 Mg Cap) 250 mg PO BID [facility] Last Admin: 01/04/24 09:32 Dose: 250 mg Ferrous Sulfate (Ferrous Sulfate 324 Mg Tablet.) 324 mg PO DAILY [facility] Last Admin: 01/04/24 09:34 Dose: 324 mg Furosemide (Furosemide 20 Mg Tablet) 20 mg PO DAILY [facility]; Protocol Last Admin: 01/04/24 09:34 Dose: 20 mg Glucose (Glucose Gel 15 Gm Gel..Gram.) 15 gm PO Q15M PRN; Protocol PRN Reason: per Hypoglycemia Standing Ord. Lactated Ringer's (Lr) 500 mls @ 20 mls/hr IVCONT .Q24H [facility] Last Admin: 01/03/24 20:35 Dose: Not Given Insulin Glargine (Insulin Glargine,Hum.Rec.Anlog 100 Unit/Ml 10 Ml Vial) 8 unit SUBCUT BEDTIME [facility] Last Admin: 01/03/24 20:43 Dose: 8 unit Insulin Human Lispro (Insulin Lispro 100 Unit/Ml 3 Ml Vial) 0 unit SUBCUT QIDACHS [facility]; Protocol Last Admin: 01/04/24 10:13 Dose: Not Given Lidocaine (Lidocaine 4 % Patch Adh..Patch) 1 patch TRANSDERMA DAILY [facility]; Protocol Last Admin: 01/04/24 09:57 Dose: 1 patch Loratadine (Loratadine 10 Mg Tablet) 10 mg PO BEDTIME [facility] Last Admin: 01/03/24 20:37 Dose: 10 mg Losartan Potassium (Losartan Potassium 50 Mg Tablet) 100 mg PO DAILY [facility]; Protocol Last Admin: 01/04/24 09:33 Dose: 100 mg Magnesium Hydroxide (Milk Of Magnesia 30 Ml Oral.Susp) 30 ml PO DAILY PRN PRN Reason: Constipation Last Admin: 12/29/23 12:36 Dose: 30 ml Magnesium Oxide (Magnesium Oxide 400 Mg Tablet) 400 mg PO BID [facility] Last Admin: 01/04/24 09:34 Dose: 400 mg Mirtazapine (Mirtazapine 30 Mg Tablet) 30 mg PO BEDTIME [facility] Last Admin: 01/03/24 20:37 Dose: 30 mg Multivitamins/Vitamin C (Multivitamin Tablet) 1 tab PO DAILY [facility] Last Admin: 01/04/24 09:32 Dose: 1 tab Naloxone HCl (Naloxone Hcl 0.4 Mg/Ml Vial) 0.04 mg IVPUSH Q5M PRN PRN Reason: Excessive sedation or RR < 8 Nicotine Polacrilex (Nicotine Polacrilex 2 Mg Gum) 4 mg BUCCAL Q2H PRN PRN Reason: Nicotine Cravings Omeprazole (Omeprazole 20 Mg Capsule.Dr) 20 mg PO DAILY@0630 [facility] Last Admin: 01/04/24 06:11 Dose: 20 mg Oxycodone HCl (Oxycodone Hcl Immed Release 5 Mg Tablet) 5 mg PO Q4H PRN PRN Reason: Pain, Severe (Pain Scale 7-10) Last Admin: 01/03/24 20:37 Dose: 5 mg Risperidone (Risperidone 0.5 Mg Tablet) 0.5 mg PO BID PRN PRN Reason: Restlessness Thiamine HCl (Thiamine Hcl 100 Mg Tablet) 100 mg PO DAILY [facility] Last Admin: 01/04/24 09:34 Dose: 100 mg Tramadol HCl (Tramadol Hcl 50 Mg Tablet) 25 mg PO Q6H PRN PRN Reason: Pain, Moderate(Pain Scale 4-6) Last Admin: 01/04/24 09:55 Dose: 25 mg Trazodone HCl (Trazodone Hcl 50 Mg Tablet) 50 mg PO BEDTIME PRN PRN Reason: Insomnia Last Admin: 12/30/23 21:56 Dose: 50 mg Allergies Allergies Allergy/AdvReac Type Severity Reaction Status Date / Time atropine Allergy Unknown Shortness Verified 12/02/23 23:30 of Breath enoxaparin [From Lovenox] Allergy Unknown Unknown Verified 12/02/23 23:30 penicillin V Allergy Unknown Unknown Verified 03/19/23 07:30 pseudoephedrine [Aprodine] Allergy Unknown Unknown Verified 03/19/23 07:30 triprolidine [Aprodine] Allergy Unknown Unknown Verified 03/19/23 07:30 Assessment & Plan Assessment & Plan (1) Major depressive disorder with psychotic features: Status: Acute Code(s): F32.3 - Major depressive disorder, single episode, severe with psychotic features Assessment and Plan: 12/15/23: Continue tx plan Plan 73-year-old female with history of insulin-dependent type 2 diabetes, hypertension, hyperlipidemia, history of C diff colitis, hypothyroidism, heart failure preserved ejection fraction, cirrhosis admitted to [facility] for catatonia with consult placed to hospitalist service for ect risk stratification. Pt with class II risk on revised cardiac risk index given history of CHF though is clinically euvolemic on exam. Lungs are clear. Has known but no murmurs heard on exam. Would recommend checking EKG to assess for ECT prolongation prior to ECT treatment. Unable to assess ROS. Based on RCRI and known history of ECT with good tolerance there does not appear to be any acute medical contraindication that should preclude patient from undergoing ect. Appropriate anesthesia precautions should be taken given known history of BASIL. Plan 1. Continue with antibiotics since the patient has been diagnosed with a UTI. 2. Continue with same treatment. 3. continue with ECT 4. Family meeting. 5. Orthopedic consult we will follow his recommendations. 6. Tramadol 25 p.r.n. q.6 hours moderate pain 7. Oxycodone 5 mg p.o. Q 4 hours p.r.n. severe pain 01/03: Continue current regimen and plans Reason for continued inpatient stay Substantial Risk for: inability to function Time Spent With Patient Time: Total time managing care of this patient today ____ minutes.
[2024-01-04 11:39] LABS: Glucose, Whole Blood 287 mg/dL (60-115)
[2024-01-04] MEDS: Insulin Lispro 100 UNIT/ML 3 ML VIAL SUBCUT ×4 (11:46→20:35)
[2024-01-04] MEDS: oxyCODONE HCl Immed Release 5 MG TABLET PO ×3 (12:41→20:34)
--- NOTE | 2024-01-04 12:58 | PM.EVENT ---
Event Note Date of Service: 01/04/24 Event Note: Follow-up for patient on [facility] for hyperglycemia. Patient's sugars continue to be poorly controlled while on the unit, now consistently above 200 even in the mornings and as high as 438 in the afternoon. Will increase Lantus 10 units at bedtime. Patient again should be encouraged to follow a diabetic diet and diabetic snacking. Time Spent With Patient Time: Total time managing care of this patient today ____ minutes.
[2024-01-04] MEDS: Milk of Magnesia 30 ML ORAL.SUSP PO (13:29)
[2024-01-04] MEDS: Acetaminophen 325 MG TABLET 650 MG PO (15:13)
[2024-01-04 16:29] LABS: Glucose, Whole Blood 459 mg/dL (60-115)
[2024-01-04 19:51] LABS: Glucose, Whole Blood 380 mg/dL (60-115)
[2024-01-04 20:00] VITALS: BP 142/63; PULSE 90; RESP 18; TEMP 36.6; O2SAT 95
[2024-01-04] MEDS: Atorvastatin Calcium 10 MG TABLET PO (20:34)
[2024-01-04] MEDS: Loratadine 10 MG TABLET PO (20:34)
[2024-01-04] MEDS: Mirtazapine 30 MG TABLET PO (20:34)
[2024-01-04] MEDS: Insulin Glargine,Hum.rec.anlog 100 UNIT/ML 10 ML VIAL 6 UNIT SUBCUT (20:35)
[2024-01-05] MEDS: Omeprazole 20 MG CAPSULE.DR PO (06:29)
[2024-01-05 06:53] LABS: Glucose, Whole Blood 295 mg/dL (60-115)
--- NOTE | 2024-01-05 08:17 | HO.PSYCHPN ---
Subjective Subjective Date of Service: 01/05/24 Reason For Visit: Major depressive disorder, severe, recurrent Subjective Notes: Conditional Voluntary Interim History: Patient was seen and discussed in rounds today. Records and plans were reviewed. She continues to be mostly in bed with some improvement since ECT. She has been constipated and an enema was ordered which she will get this morning. Eating and sleeping adequately. No changes were made today Review of Systems Review of Systems Yes all other systems are reviewed and are negative Mental Status Exam Mental Status Exam Patient Appearance: Appropriate Patient Orientation: Person and Situation Level of Consciousness: Awake and Appropriate Patient Behavior: Guarded and Passive Mood Description: Calm Affect Description: Constricted Patient Cognition Impaired: Yes Ability to Follow Directions: Good Speech Pattern: Clear Hallucinations: None Delusions: Not Present Thought Process: Distracted and Slowed Thinking Thought Content: positive for [place] and positive for Poverty of Content Judgement: Fair Diagnostics Vital Signs (24Hr): Vital Signs - 24 hr 01/04/24 09:33 01/04/24 09:33 01/04/24 09:34 Temperature Pulse Rate Respiratory Rate Blood Pressure 159/75 H 159/75 H 159/75 H Pulse Oximetry Oxygen Delivery Method 01/04/24 20:00 Temperature 97.8 F Pulse Rate 90 Respiratory Rate 18 Blood Pressure 142/63 H Pulse Oximetry 95 Oxygen Delivery Method Room Air BMI result Body Mass Index 21.7 Labs 12/29/23 11:58 12/29/23 11:58 Labs: Laboratory Results - last 48 hr 01/03/24 01/03/24 01/03/24 10:58 16:42 18:39 POC Glucose 237 H 438 H* 319 H 01/03/24 01/04/24 01/04/24 19:54 06:52 11:33 POC Glucose 266 H 211 H 287 H 01/04/24 01/04/24 01/05/24 16:19 19:44 06:30 POC Glucose 459 H* 380 H* 295 H Imaging Radiology Impressions: ITS Impressions Chest X-Ray 12/03/23 12:20 IMPRESSION: 1. Chronic interstitial prominence without focal consolidative airspace opacity. 2. Densities along the left lower chest which may represent pleural calcifications versus soft tissue calcifications. Correlation with lateral radiograph could help further evaluate. Electronically signed by: Viral Smallwood MD 12/03/2023 01:33 PM EDT RP Head CT 12/03/23 13:17 IMPRESSION: 1. No acute intracranial abnormalities. No intracranial hemorrhage or mass effect. 2. Moderate small vessel ischemic changes in the hemispheric white matter. 3. 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 4. Age advanced cerebral and cerebellar involutional changes with prominent ventricles. Cannot definitively exclude a component of communicating hydrocephalus given the appearance. Head CT 12/10/23 21:05 IMPRESSION: No acute intracranial abnormality including hemorrhage, mass effect, hydrocephalus, or acute territorial edematous infarction. Electronically signed by: Juan Alberto Murdock MD 12/10/2023 10:07 PM EDT RP Shoulder X-Ray 01/01/24 09:08 IMPRESSION: Comminuted fracture of the right shoulder Electronically signed by: Sean Kirkpatrick MD 01/01/2024 10:25 AM EDT RP Medications Medications Current Medications Acetaminophen (Acetaminophen 325 Mg Tablet) 650 mg PO Q6H PRN PRN Reason: Headache/Pain Mild Scale (1-3) Last Admin: 01/04/24 15:13 Dose: 650 mg Al Hydroxide/Mg Hydroxide (Magnesium Hydrox/Alum Hydrox 30 Ml Oral.Susp) 30 ml PO Q6H PRN PRN Reason: Heartburn/Nausea Amlodipine Besylate (Amlodipine Besylate 5 Mg Tablet) 5 mg PO DAILY [facility]; Protocol Last Admin: 01/04/24 09:33 Dose: 5 mg Anastrozole (Anastrozole 1 Mg Tablet) 1 mg PO DAILY [facility] Last Admin: 01/04/24 09:34 Dose: 1 mg Aspirin (Aspirin 81 Mg Tab.Chew) 81 mg PO DAILY [facility] Last Admin: 01/04/24 09:34 Dose: 81 mg Atorvastatin Calcium (Atorvastatin Calcium 10 Mg Tablet) 10 mg PO BEDTIME [facility] Last Admin: 01/04/24 20:34 Dose: 10 mg Cefuroxime Axetil (Cefuroxime Axetil 250 Mg Tablet) 250 mg PO BID [facility] Stop: 01/05/24 09:01 Last Admin: 01/04/24 20:34 Dose: 250 mg Divalproex Sodium (Divalproex Sodium Sprinkles 125 Mg ) 250 mg PO BID [facility] Last Admin: 01/04/24 20:35 Dose: 250 mg Docusate Sodium (Docusate Sodium 100 Mg Capsule) 100 mg PO BEDTIME PRN PRN Reason: Constipation Ferrous Sulfate (Ferrous Sulfate 324 Mg Tablet.Dr) 324 mg PO DAILY [facility] Last Admin: 01/04/24 09:34 Dose: 324 mg Furosemide (Furosemide 20 Mg Tablet) 20 mg PO DAILY [facility]; Protocol Last Admin: 01/04/24 09:34 Dose: 20 mg Glucose (Glucose Gel 15 Gm Gel..Gram.) 15 gm PO Q15M PRN; Protocol PRN Reason: per Hypoglycemia Standing Ord. Lactated Ringer's (Lr) 500 mls @ 20 mls/hr IVCONT .Q24H [facility] Last Admin: 01/03/24 20:35 Dose: Not Given Insulin Glargine (Insulin Glargine,Hum.Rec.Anlog 100 Unit/Ml 10 Ml Vial) 6 unit SUBCUT BEDTIME [facility] Last Admin: 01/04/24 20:35 Dose: 6 unit Insulin Glargine (Insulin Glargine,Hum.Rec.Anlog 100 Unit/Ml 10 Ml Vial) 6 unit SUBCUT DAILY [facility] Insulin Human Lispro (Insulin Lispro 100 Unit/Ml 3 Ml Vial) 0 unit SUBCUT QIDACHS [facility]; Protocol Last Admin: 01/04/24 20:35 Dose: 12 unit Lidocaine (Lidocaine 4 % Patch Adh..Patch) 1 patch TRANSDERMA DAILY [facility]; Protocol Last Admin: 01/04/24 09:57 Dose: 1 patch Loratadine (Loratadine 10 Mg Tablet) 10 mg PO BEDTIME [facility] Last Admin: 01/04/24 20:34 Dose: 10 mg Losartan Potassium (Losartan Potassium 50 Mg Tablet) 100 mg PO DAILY [facility]; Protocol Last Admin: 01/04/24 09:33 Dose: 100 mg Magnesium Hydroxide (Milk Of Magnesia 30 Ml Oral.Susp) 30 ml PO DAILY PRN PRN Reason: Constipation Last Admin: 01/04/24 13:29 Dose: 30 ml Magnesium Oxide (Magnesium Oxide 400 Mg Tablet) 400 mg PO BID [facility] Last Admin: 01/04/24 20:34 Dose: 400 mg Mirtazapine (Mirtazapine 30 Mg Tablet) 30 mg PO BEDTIME [facility] Last Admin: 01/04/24 20:34 Dose: 30 mg Multivitamins/Vitamin C (Multivitamin Tablet) 1 tab PO DAILY [facility] Last Admin: 01/04/24 09:32 Dose: 1 tab Naloxone HCl (Naloxone Hcl 0.4 Mg/Ml Vial) 0.04 mg IVPUSH Q5M PRN PRN Reason: Excessive sedation or RR < 8 Nicotine Polacrilex (Nicotine Polacrilex 2 Mg Gum) 4 mg BUCCAL Q2H PRN PRN Reason: Nicotine Cravings Omeprazole (Omeprazole 20 Mg Capsule.Dr) 20 mg PO DAILY@0630 [facility] Last Admin: 01/05/24 06:29 Dose: 20 mg Oxycodone HCl (Oxycodone Hcl Immed Release 5 Mg Tablet) 5 mg PO Q4H PRN PRN Reason: Pain, Severe (Pain Scale 7-10) Last Admin: 01/04/24 20:34 Dose: 5 mg Risperidone (Risperidone 0.5 Mg Tablet) 0.5 mg PO BID PRN PRN Reason: Restlessness Sodium Biphosphate/Sodium Phosphate (Sodium Phosphate,[place]-Dibasic 133 Ml Enema) 133 ml HI ONCE PRN PRN Reason: Constipation Thiamine HCl (Thiamine Hcl 100 Mg Tablet) 100 mg PO DAILY [facility] Last Admin: 01/04/24 09:34 Dose: 100 mg Tramadol HCl (Tramadol Hcl 50 Mg Tablet) 25 mg PO Q6H PRN PRN Reason: Pain, Moderate(Pain Scale 4-6) Last Admin: 01/04/24 16:41 Dose: 25 mg Trazodone HCl (Trazodone Hcl 50 Mg Tablet) 50 mg PO BEDTIME PRN PRN Reason: Insomnia Last Admin: 12/30/23 21:56 Dose: 50 mg Allergies Allergies Allergy/AdvReac Type Severity Reaction Status Date / Time atropine Allergy Unknown Shortness Verified 12/02/23 23:30 of Breath enoxaparin [From Lovenox] Allergy Unknown Unknown Verified 12/02/23 23:30 penicillin V Allergy Unknown Unknown Verified 03/19/23 07:30 pseudoephedrine [Aprodine] Allergy Unknown Unknown Verified 03/19/23 07:30 triprolidine [Aprodine] Allergy Unknown Unknown Verified 03/19/23 07:30 Assessment & Plan Assessment & Plan (1) Major depressive disorder with psychotic features: Status: Acute Code(s): F32.3 - Major depressive disorder, single episode, severe with psychotic features Assessment and Plan: 12/15/23: Continue tx plan Plan 73-year-old female with history of insulin-dependent type 2 diabetes, hypertension, hyperlipidemia, history of C diff colitis, hypothyroidism, heart failure preserved ejection fraction, cirrhosis admitted to [facility] for catatonia with consult placed to hospitalist service for ect risk stratification. Pt with class II risk on revised cardiac risk index given history of CHF though is clinically euvolemic on exam. Lungs are clear. Has known but no murmurs heard on exam. Would recommend checking EKG to assess for ECT prolongation prior to ECT treatment. Unable to assess ROS. Based on RCRI and known history of ECT with good tolerance there does not appear to be any acute medical contraindication that should preclude patient from undergoing ect. Appropriate anesthesia precautions should be taken given known history of BASIL. Plan 1. Continue with antibiotics since the patient has been diagnosed with a UTI. 2. Continue with same treatment. 3. continue with ECT 4. Family meeting. 5. Orthopedic consult we will follow his recommendations. 6. Tramadol 25 p.r.n. q.6 hours moderate pain 7. Oxycodone 5 mg p.o. Q 4 hours p.r.n. severe pain 01/03: Continue current regimen and plans 01/04: Continue current regimen and plans. She will get an enema this morning Reason for continued inpatient stay Substantial Risk for: inability to function and med/psych decompensation Time Spent With Patient Time: Total time managing care of this patient today ____ minutes.
[2024-01-05 08:26] VITALS: BP 182/92; PULSE 87; RESP 15; TEMP 36.8; O2SAT 100
[2024-01-05] MEDS: Lidocaine 4 % Patch ADH..PATCH 1 PATCH TRANSDERMA (08:35)
[2024-01-05] MEDS: Sodium Phosphate,Mono-Dibasic 133 ML ENEMA PR (08:35)
[2024-01-05] MEDS: oxyCODONE HCl Immed Release 5 MG TABLET PO ×2 (08:35→16:52)
[2024-01-05] MEDS: Insulin Lispro 100 UNIT/ML 3 ML VIAL SUBCUT ×5 (08:42→20:06)
[2024-01-05] MEDS: Insulin Glargine,Hum.rec.anlog 100 UNIT/ML 10 ML VIAL 6 UNIT SUBCUT ×2 (08:43→13:55)
[2024-01-05] MEDS: Anastrozole 1 MG TABLET PO (08:45)
[2024-01-05] MEDS: Magnesium Oxide 400 MG TABLET PO ×2 (08:45→20:07)
[2024-01-05] MEDS: Divalproex Sodium Sprinkles 125 MG CAP.DR.SPR 250 MG PO ×2 (08:45→20:04)
[2024-01-05] MEDS: Ferrous Sulfate 324 MG TABLET.DR PO (08:45)
[2024-01-05] MEDS: Aspirin 81 MG TAB.CHEW PO (08:45)
[2024-01-05] MEDS: Losartan Potassium 50 MG TABLET 100 MG PO (08:45)
[2024-01-05] MEDS: Furosemide 20 MG TABLET PO (08:46)
[2024-01-05] MEDS: Thiamine HCL 100 MG TABLET PO (08:46)
[2024-01-05] MEDS: Multivitamin TABLET 1 TAB PO (08:46)
[2024-01-05] MEDS: amLODIPine Besylate 5 MG TABLET PO (08:46)
[2024-01-05] MEDS: cefuroxime axetiL 250 MG TABLET PO (08:46)
[2024-01-05] MEDS: Milk of Magnesia 30 ML ORAL.SUSP PO (10:03)
[2024-01-05] MEDS: traMADoL HCL 50 MG TABLET 25 MG PO ×2 (10:10→21:28)
[2024-01-05 11:33] LABS: Glucose, Whole Blood 443 mg/dL (60-115)
[2024-01-05 12:08] LABS: Glucose, Whole Blood 451 mg/dL (60-115)
--- NOTE | 2024-01-05 12:16 | PC.NURSE ---
Pt.'s BG was 459. This teletypewriter operator requested that staff stop ordering her sweets and juice with her meals. This teletypewriter operator also priority messaged Mar MOYA, because pt appeared more lethargic than typical and there was some concern about DKA. He has already come to see pt. and will be ordering bloodwork.
[2024-01-05 12:50] LABS: Hematocrit 26.3 % (37.0-47.0); Hemoglobin 8.6 g/dl (12.0-16.0); Mean Corpuscular HGB Conc 32.7 g/dl (31.0-35.0); Mean Corpuscular Hemoglobin 28.2 pg (27.0-33.0); Mean Corpuscular Volume 86.2 fL (80.0-98.0); Mean Platelet Volume 8.9 fL (9.4-12.3); Platelet Count 133 X10*3/uL (160-400); Red Blood Count 3.05 X10*6/uL (4.20-5.50); Red Cell Distribution Width 15.2 % (11.0-16.0)
[2024-01-05 12:52] LABS: VBG Base Excess 14.4 mmol/L; VBG HCO3 39 mmol/L (22-26); VBG pCO2 49 mmHg; VBG pO2 97 mmHg
[2024-01-05 12:57] LABS: Venous Blood Gas Refer to POC result
[2024-01-05 13:01] LABS: Beta-Hydroxybutyrate 0.08 mmol/L (0.02-0.27)
[2024-01-05 13:14] LABS: Anion Gap 13 (12-20); Blood Urea Nitrogen 21 mg/dL (9-16); Calcium 9.8 mg/dL (8.4-10.2); Carbon Dioxide 31 mmol/L (22-29); Chloride 94 mmol/L (96-108); Creatinine Clr Calc Pharmacy 28.8; Estimated Glomerular Filt Rate 46; Glucose Random 446 mg/dL (60-115); Potassium 4.8 mmol/L (3.3-5.1); Sodium 133 mmol/L (135-145)
--- NOTE | 2024-01-05 15:41 | PC.NURSE ---
Pt found with stage I and stage II preasure ulcer on L buttock. Wound [facility] [employer] connect with Dr. Mcclelland-answer pending. Wound clean, dry, and dressed with foam dressing.
[2024-01-05 16:51] LABS: Glucose, Whole Blood 247 mg/dL (60-115)
[2024-01-05 19:44] LABS: Glucose, Whole Blood 194 mg/dL (60-115)
[2024-01-05 20:00] VITALS: BP 126/61; PULSE 91; RESP 16; TEMP 38; O2SAT 95
[2024-01-05] MEDS: Atorvastatin Calcium 10 MG TABLET PO (20:04)
[2024-01-05] MEDS: Insulin Glargine,Hum.rec.anlog 100 UNIT/ML 10 ML VIAL 12 UNIT SUBCUT (20:05)
[2024-01-05] MEDS: Mirtazapine 30 MG TABLET PO (20:07)
[2024-01-05] MEDS: Loratadine 10 MG TABLET PO (20:07)
[2024-01-05] MEDS: Acetaminophen 325 MG TABLET 650 MG PO (21:29)
[2024-01-06] VITALS (12 sets, daily range): BP systolic 117–144; BP diastolic 53–68; PULSE 76–112; RESP 16–18; TEMP 36.1–36.5; O2SAT 92–99
[2024-01-06 06:04] LABS: Glucose, Whole Blood 131 mg/dL (60-115)
--- NOTE | 2024-01-06 06:52 | P.CONAN_ITS ---
[facility] Active Problems Active Problems: All Active Problems Hx of Clostridium difficile infection (Acute) Preoperative cardiovascular examination (Acute) Catatonia (Acute) Fixed constriction of pupil (Acute) Major depressive disorder with psychotic features (Acute) Dark stools (Acute) Routine medical exam (Acute) Essential hypertension (Acute) Type 2 diabetes mellitus with unspecified complications (Acute) Aortic valve sclerosis (Acute) Murmur (Acute) CKD (chronic kidney disease) stage 3, GFR 30-59 ml/min (Acute) Vitamin D deficiency (Acute) HLD (hyperlipidemia) (Acute) HTN (hypertension) (Acute) T2DM (type 2 diabetes mellitus) (Acute) Past Medical History Medical History Cirrhosis Hypothyroidism Breast cancer Hx of Clostridium difficile infection (HFpEF) heart failure with preserved ejection fraction Murmur CKD (chronic kidney disease) stage 3, GFR 30-59 ml/min Vitamin D deficiency HLD (hyperlipidemia) HTN (hypertension) T2DM (type 2 diabetes mellitus) Functional capacity: independent ambulation Family History Family History Father Alzheimer disease Stroke Mother Breast cancer Family history of problems with anesthesia: No Surgical History Surgical History Hx of cataract surgery History of lumpectomy of right breast History of mastectomy History of Problems with Anesthesia: No Social History Social History Household Members: Family Household Members Other:: son Alcohol intake: never Comment: 1:1 observation. Patient Tobacco Use Status: Never used Tobacco Use of substances other than those prescribed or required for medical reasons: Unable to respond Last Used Substance Other:: unknown, unable to respond, she is nonsensical and delusional when she does Currently Displaying Signs/Symptoms of Drug Intoxication Withdrawal: No Other Past Substance Use Problem:: unknown, unable to respond, she is nonsensical and delusional when she does Spiritual Healthcare Practices: unknown, unable to respond, she is nonsensical and delusional when she does respond [facility] Practices: unknown, unable to respond, she is nonsensical and delusional when she does respond Cultural Healthcare Practices: unknown, unable to respond, she is nonsensical and delusional when she does respond Advance Directives: No Advance Directives Information Provided: No Do you have thoughts of harming others: None Do you have a plan to hurt others: No Plan Recently lost weight without trying: Unsure Patient : No : No Poor oral hygiene: No service: No Sexual orientation: Straight/Heterosexual Meds Allergies Allergy/AdvReac Type Severity Reaction Status Date / Time atropine Allergy Unknown Shortness Verified 12/02/23 23:30 of Breath enoxaparin [From Lovenox] Allergy Unknown Unknown Verified 12/02/23 23:30 penicillin V Allergy Unknown Unknown Verified 03/19/23 07:30 pseudoephedrine [Aprodine] Allergy Unknown Unknown Verified 03/19/23 07:30 triprolidine [Aprodine] Allergy Unknown Unknown Verified 03/19/23 07:30 Active Medications: Current Medications Acetaminophen (Acetaminophen 325 Mg Tablet) 650 mg PO Q6H PRN PRN Reason: Headache/Pain Mild Scale (1-3) Last Admin: 01/05/24 21:29 Dose: 650 mg Al Hydroxide/Mg Hydroxide (Magnesium Hydrox/Alum Hydrox 30 Ml Oral.Susp) 30 ml PO Q6H PRN PRN Reason: Heartburn/Nausea Amlodipine Besylate (Amlodipine Besylate 5 Mg Tablet) 5 mg PO DAILY [facility]; Protocol Last Admin: 01/05/24 08:46 Dose: 5 mg Anastrozole (Anastrozole 1 Mg Tablet) 1 mg PO DAILY [facility] Last Admin: 01/05/24 08:45 Dose: 1 mg Aspirin (Aspirin 81 Mg Tab.Chew) 81 mg PO DAILY [facility] Last Admin: 01/05/24 08:45 Dose: 81 mg Atorvastatin Calcium (Atorvastatin Calcium 10 Mg Tablet) 10 mg PO BEDTIME [facility] Last Admin: 01/05/24 20:04 Dose: 10 mg Divalproex Sodium (Divalproex Sodium Sprinkles 125 Mg Cap.) 250 mg PO BID [facility] Last Admin: 01/05/24 20:04 Dose: 250 mg Docusate Sodium (Docusate Sodium 100 Mg Capsule) 100 mg PO BEDTIME PRN PRN Reason: Constipation Ferrous Sulfate (Ferrous Sulfate 324 Mg Tablet.Dr) 324 mg PO DAILY [facility] Last Admin: 01/05/24 08:45 Dose: 324 mg Furosemide (Furosemide 20 Mg Tablet) 20 mg PO DAILY [facility]; Protocol Last Admin: 01/05/24 08:46 Dose: 20 mg Glucose (Glucose Gel 15 Gm Gel..Gram.) 15 gm PO Q15M PRN; Protocol PRN Reason: per Hypoglycemia Standing Ord. Lactated Ringer's (Lr) 500 mls @ 20 mls/hr IVCONT .Q24H [facility] Last Admin: 01/03/24 20:35 Dose: Not Given Insulin Glargine (Insulin Glargine,Hum.Rec.Anlog 100 Unit/Ml 10 Ml Vial) 12 unit SUBCUT BEDTIME [facility] Last Admin: 01/05/24 20:05 Dose: 12 unit Insulin Glargine (Insulin Glargine,Hum.Rec.Anlog 100 Unit/Ml 10 Ml Vial) 12 unit SUBCUT DAILY [facility] Insulin Human Lispro (Insulin Lispro 100 Unit/Ml 3 Ml Vial) 0 unit SUBCUT QIDACHS [facility]; Protocol Last Admin: 01/05/24 20:06 Dose: 2 unit Lidocaine (Lidocaine 4 % Patch Adh..Patch) 1 patch TRANSDERMA DAILY [facility]; Protocol Last Admin: 01/05/24 08:35 Dose: 1 patch Loratadine (Loratadine 10 Mg Tablet) 10 mg PO BEDTIME [facility] Last Admin: 01/05/24 20:07 Dose: 10 mg Losartan Potassium (Losartan Potassium 50 Mg Tablet) 100 mg PO DAILY [facility]; Protocol Last Admin: 01/05/24 08:45 Dose: 100 mg Magnesium Hydroxide (Milk Of Magnesia 30 Ml Oral.Susp) 30 ml PO DAILY PRN PRN Reason: Constipation Last Admin: 01/05/24 10:03 Dose: 30 ml Magnesium Oxide (Magnesium Oxide 400 Mg Tablet) 400 mg PO BID [facility] Last Admin: 01/05/24 20:07 Dose: 400 mg Mirtazapine (Mirtazapine 30 Mg Tablet) 30 mg PO BEDTIME [facility] Last Admin: 01/05/24 20:07 Dose: 30 mg Multivitamins/Vitamin C (Multivitamin Tablet) 1 tab PO DAILY [facility] Last Admin: 01/05/24 08:46 Dose: 1 tab Naloxone HCl (Naloxone Hcl 0.4 Mg/Ml Vial) 0.04 mg IVPUSH Q5M PRN PRN Reason: Excessive sedation or RR < 8 Nicotine Polacrilex (Nicotine Polacrilex 2 Mg Gum) 4 mg BUCCAL Q2H PRN PRN Reason: Nicotine Cravings Omeprazole (Omeprazole 20 Mg Capsule.Dr) 20 mg PO DAILY@0630 [facility] Last Admin: 01/06/24 06:00 Dose: Not Given Oxycodone HCl (Oxycodone Hcl Immed Release 5 Mg Tablet) 5 mg PO Q4H PRN PRN Reason: Pain, Severe (Pain Scale 7-10) Last Admin: 01/05/24 16:52 Dose: 5 mg Risperidone (Risperidone 0.5 Mg Tablet) 0.5 mg PO BID PRN PRN Reason: Restlessness Sodium Biphosphate/Sodium Phosphate (Sodium Phosphate,[place]-Dibasic 133 Ml Enema) 133 ml [place] ONCE PRN PRN Reason: Constipation Last Admin: 01/05/24 08:35 Dose: 133 ml Thiamine HCl (Thiamine Hcl 100 Mg Tablet) 100 mg PO DAILY [facility] Last Admin: 01/05/24 08:46 Dose: 100 mg Tramadol HCl (Tramadol Hcl 50 Mg Tablet) 25 mg PO Q6H PRN PRN Reason: Pain, Moderate(Pain Scale 4-6) Last Admin: 01/05/24 21:28 Dose: 25 mg Trazodone HCl (Trazodone Hcl 50 Mg Tablet) 50 mg PO BEDTIME PRN PRN Reason: Insomnia Last Admin: 12/30/23 21:56 Dose: 50 mg Home Medications ?Medication ?Instructions ?Recorded ?Confirmed ?Last Taken ?Type ascorbate calcium (vitamin C) 500 500 mg PO DAILY 03/24/20 11/20/22 Unknown History mg tablet fluoxetine 20 mg capsule 40 mg PO DAILY 03/24/20 11/20/22 Unknown History levothyroxine 100 mcg tablet 100 mcg PO QAM 03/24/20 11/20/22 Unknown History mirtazapine 30 mg tablet 30 mg PO BEDTIME 03/24/20 11/20/22 Unknown History omeprazole 20 mg capsule,delayed 20 mg PO DAILY 03/24/20 11/20/22 Unknown History release risperidone 1 mg tablet 1 mg PO BEDTIME 03/24/20 11/20/22 Unknown History insulin glargine 100 unit/mL (3 30 unit subcut BEDTIME 09/28/20 11/20/22 Unknown History mL) subcutaneous pen anastrozole 1 mg tablet 1 mg PO DAILY 02/16/21 11/20/22 Unknown History dapagliflozin propanediol 10 mg 10 mg PO QAM 05/08/21 11/20/22 Unknown History tablet (Farxiga) losartan 50 mg tablet 50 mg PO DAILY 09/14/21 11/20/22 Unknown History amlodipine 5 mg tablet 5 mg PO QAM 12/02/23 12/02/23 Unknown History anastrozole 1 mg tablet 1 mg PO DAILY 12/02/23 12/02/23 Unknown History aspirin 81 mg chewable tablet 1 tab PO QAM 12/02/23 12/02/23 Unknown History cetirizine 5 mg tablet 5 mg PO BEDTIME 12/02/23 12/02/23 Unknown History divalproex 500 mg tablet,delayed 500 mg PO BEDTIME 12/02/23 12/02/23 Unknown History release ferrous sulfate 325 mg (65 mg 325 mg PO QAM 12/02/23 12/02/23 Unknown History iron) tablet (FeroSul) furosemide 20 mg tablet (Lasix) 20 mg PO DAILY 12/02/23 12/02/23 Unknown History insulin glargine 100 unit/mL 6 unit subcut BEDTIME 12/02/23 12/02/23 Unknown History subcutaneous solution insulin lispro 100 unit/mL 1 sliding scale dose subcut 12/02/23 12/02/23 Unknown History subcutaneous solution USEASDIRECTD levetiracetam 500 mg tablet 500 mg PO BID 12/02/23 12/02/23 Unknown History losartan 100 mg tablet 100 mg PO DAILY 12/02/23 12/02/23 Unknown History losartan 100 mg tablet 100 mg PO DAILY 12/02/23 12/02/23 Unknown History magnesium oxide 400 mg PO BID 12/02/23 12/02/23 Unknown History mirtazapine 30 mg disintegrating 30 mg PO BEDTIME 12/02/23 12/02/23 Unknown History tablet multivitamin with minerals 1 tab PO DAILY 12/02/23 12/02/23 Unknown History pantoprazole 40 mg tablet,delayed 40 mg PO DAILY 12/02/23 12/02/23 Unknown History release risperidone 0.5 mg tablet 0.5 mg PO BID PRN Agitation 12/02/23 12/02/23 Unknown History risperidone 2 mg tablet 2 mg PO BID 12/02/23 12/02/23 Unknown History simvastatin 20 mg tablet 20 mg PO BEDTIME 12/02/23 12/02/23 Unknown History thiamine HCl (vitamin B1) 100 mg 100 mg PO QAM 12/02/23 12/02/23 Unknown History tablet trazodone 50 mg tablet 50 mg PO BEDTIME PRN insomnia 12/02/23 12/02/23 Unknown History vancomycin 125 mg capsule See Rx Instructions .Route .COMPLEX 12/02/23 12/02/23 Unknown History (Vancocin) Exam Height,Weight and Vital Signs: Height 4 ft 11 in Weight 48.807 kg Last Vital Signs Temp 97.2 F 01/06/24 06:34 Pulse 80 01/06/24 06:34 Resp 16 01/06/24 06:34 BP 136/53 L 01/06/24 06:34 Pulse Ox 96 01/06/24 06:34 O2 Del Method Room Air 01/05/24 20:00 O2 Flow Rate 2 01/03/24 09:37 Pertinent Lab Results Pertinent Lab Results: Laboratory Tests 12/02/23 12/03/23 12/03/23 22:55 06:35 08:01 WBC RBC Hgb Hct MCV MCH MCHC RDW Plt Count MPV Immature Gran % (Auto) Neut % (Auto) Lymph % (Auto) [place] % (Auto) Eos % (Auto) Baso % (Auto) Lymph # (Auto) [place] # (Auto) Eos # (Auto) Baso # (Auto) Abs Immat Gran (auto) Absolute Neuts (auto) Absolute Nucleated RBC Nucleated RBC % (auto) VBG pH VBG pCO2 VBG pO2 VBG HCO3 VBG O2 Saturation VBG Base Excess Sodium 134 L Potassium 4.0 Chloride 98 Carbon Dioxide 27 Anion Gap 13 BUN 21 H Creatinine 0.88 Estim Creat Clear Calc TNP Estimated GFR > 60 POC Glucose 296 H 212 H Random Glucose Fasting Glucose 236 H Estimat Average Glucose 169 Hemoglobin A1c % 7.5 H Calcium 10.2 Total Bilirubin 0.5 Direct Bilirubin AST 19 ALT 16 Alkaline Phosphatase 93 Ammonia Total Protein 8.7 H Albumin 3.5 Triglycerides 105 Cholesterol 182 LDL Cholesterol, Calc 93 HDL Cholesterol 68 Vitamin B12 Folate Beta-Hydroxybutyrate TSH Urine Color Urine Appearance Urine pH Ur Specific [place] Urine Protein Urine Glucose (UA) Urine Ketones Urine Blood Urine Nitrite Ur Leukocyte Esterase Urine RBC Urine WBC Ur Squamous Epith Cells Urine Bacteria Hyaline Casts Granular Casts Urine Yeast Stool Occult Blood Stl C. cayetanensis PCR Stool Rotavirus A PCR Stl Adenov F 40/41 PCR Stool Astrovirus (PCR) Stool Campylobacter PCR Stool Cryptosporidium PCR Stl Sh Tox Pr E STEC PCR Stool E coli O157 PCR Stl Enterotoxigenic E PCR Stool EPEC (PCR) Stool EAEC (PCR) Stl E. histolytica PCR Stool Giardia Lamblia PCR Stl P. shigelloides PCR Stool Salmonella PCR Stool Sapovirus (PCR) Stl Shigella/EIEC PCR St Y.enterocolitica PCR Stool Vibrio (PCR) Stl Vibrio cholerae PCR Stl Norovirus GI/GII PCR Valproic Acid C. difficile Tox B Gene C. difficile Toxin A&B C. difficile Interpret 12/03/23 12/03/23 12/03/23 10:29 11:31 11:45 WBC 4.6 L RBC 3.96 L Hgb 10.9 L Hct 33.1 L MCV 83.6 MCH 27.5 MCHC 32.9 RDW 14.9 Plt Count 116 L MPV 9.5 Immature Gran % (Auto) 0.2 Neut % (Auto) 70.4 Lymph % (Auto) 17.7 L [place] % (Auto) 10.4 Eos % (Auto) 1.1 Baso % (Auto) 0.2 Lymph # (Auto) 0.8 L [place] # (Auto) 0.5 Eos # (Auto) 0.1 Baso # (Auto) 0.0 Abs Immat Gran (auto) 0.01 Absolute Neuts (auto) 3.3 Absolute Nucleated RBC 0.000 Nucleated RBC % (auto) 0.0 VBG pH VBG pCO2 VBG pO2 VBG HCO3 VBG O2 Saturation VBG Base Excess Sodium Potassium Chloride Carbon Dioxide Anion Gap BUN Creatinine Estim Creat Clear Calc Estimated GFR POC Glucose 234 H Random Glucose Fasting Glucose Estimat Average Glucose Hemoglobin A1c % Calcium Total Bilirubin Direct Bilirubin AST ALT Alkaline Phosphatase Ammonia 55 Total Protein Albumin Triglycerides Cholesterol LDL Cholesterol, Calc HDL Cholesterol Vitamin B12 Folate Beta-Hydroxybutyrate TSH Urine Color Urine Appearance Urine pH Ur Specific [place] Urine Protein Urine Glucose (UA) Urine Ketones Urine Blood Urine Nitrite Ur Leukocyte Esterase Urine RBC Urine WBC Ur Squamous Epith Cells Urine Bacteria Hyaline Casts Granular Casts Urine Yeast Stool Occult Blood Stl C. cayetanensis PCR Stool Rotavirus A PCR Stl Adenov F 40/41 PCR Stool Astrovirus (PCR) Stool Campylobacter PCR Stool Cryptosporidium PCR Stl Sh Tox Pr E STEC PCR Stool E coli O157 PCR Stl Enterotoxigenic E PCR Stool EPEC (PCR) Stool EAEC (PCR) Stl E. histolytica PCR Stool Giardia Lamblia PCR Stl P. shigelloides PCR Stool Salmonella PCR Stool Sapovirus (PCR) Stl Shigella/EIEC PCR St Y.enterocolitica PCR Stool Vibrio (PCR) Stl Vibrio cholerae PCR Stl Norovirus GI/GII PCR Valproic Acid C. difficile Tox B Gene C. difficile Toxin A&B C. difficile Interpret 12/03/23 12/03/23 12/03/23 16:05 16:31 17:30 WBC RBC Hgb Hct MCV MCH MCHC RDW Plt Count MPV Immature Gran % (Auto) Neut % (Auto) Lymph % (Auto) [place] % (Auto) Eos % (Auto) Baso % (Auto) Lymph # (Auto) [place] # (Auto) Eos # (Auto) Baso # (Auto) Abs Immat Gran (auto) Absolute Neuts (auto) Absolute Nucleated RBC Nucleated RBC % (auto) VBG pH VBG pCO2 VBG pO2 VBG HCO3 VBG O2 Saturation VBG Base Excess Sodium Potassium Chloride Carbon Dioxide Anion Gap BUN Creatinine Estim Creat Clear Calc Estimated GFR POC Glucose 217 H Random Glucose Fasting Glucose Estimat Average Glucose Hemoglobin A1c % Calcium Total Bilirubin Direct Bilirubin AST ALT Alkaline Phosphatase Ammonia Total Protein Albumin Triglycerides Cholesterol LDL Cholesterol, Calc HDL Cholesterol Vitamin B12 Folate Beta-Hydroxybutyrate TSH Urine Color Yellow Urine Appearance Cloudy Urine pH 5.5 Ur Specific [place] 1.020 Urine Protein 30 (1+) H Urine Glucose (UA) Negative Urine Ketones Negative Urine Blood Moderate (2+) H Urine Nitrite Negative Ur Leukocyte Esterase Moderate (2+) H Urine RBC >20 H Urine WBC >50 H Ur Squamous Epith Cells 3-5 Urine Bacteria 4+ Hyaline Casts >20 Granular Casts Present Urine Yeast Present Stool Occult Blood NEGATIVE Stl C. cayetanensis PCR Not Detected Stool Rotavirus A PCR Not Detected Stl Adenov F 40/41 PCR Not Detected Stool Astrovirus (PCR) Not Detected Stool Campylobacter PCR Not Detected Stool Cryptosporidium PCR Not Detected Stl Sh Tox Pr E STEC PCR Not Detected Stool E coli O157 PCR Not applicable Stl Enterotoxigenic E PCR Not Detected Stool EPEC (PCR) Not Detected Stool EAEC (PCR) Not Detected Stl E. histolytica PCR Not Detected Stool Giardia Lamblia PCR Not Detected Stl P. shigelloides PCR Not Detected Stool Salmonella PCR Not Detected Stool Sapovirus (PCR) Not Detected Stl Shigella/EIEC PCR Not Detected St Y.enterocolitica PCR Not Detected Stool Vibrio (PCR) Not Detected Stl Vibrio cholerae PCR Not Detected Stl Norovirus GI/GII PCR Not Detected Valproic Acid C. difficile Tox B Gene POSITIVE A* C. difficile Toxin A&B Positive A* C. difficile Interpret SEE NOTE 12/03/23 12/04/23 12/04/23 21:03 06:21 11:26 WBC RBC Hgb Hct MCV MCH MCHC RDW Plt Count MPV Immature Gran % (Auto) Neut % (Auto) Lymph % (Auto) [place] % (Auto) Eos % (Auto) Baso % (Auto) Lymph # (Auto) [place] # (Auto) Eos # (Auto) Baso # (Auto) Abs Immat Gran (auto) Absolute Neuts (auto) Absolute Nucleated RBC Nucleated RBC % (auto) VBG pH VBG pCO2 VBG pO2 VBG HCO3 VBG O2 Saturation VBG Base Excess Sodium Potassium Chloride Carbon Dioxide Anion Gap BUN Creatinine Estim Creat Clear Calc Estimated GFR POC Glucose 207 H 176 H 210 H Random Glucose Fasting Glucose Estimat Average Glucose Hemoglobin A1c % Calcium Total Bilirubin Direct Bilirubin AST ALT Alkaline Phosphatase Ammonia Total Protein Albumin Triglycerides Cholesterol LDL Cholesterol, Calc HDL Cholesterol Vitamin B12 Folate Beta-Hydroxybutyrate TSH Urine Color Urine Appearance Urine pH Ur Specific [place] Urine Protein Urine Glucose (UA) Urine Ketones Urine Blood Urine Nitrite Ur Leukocyte Esterase Urine RBC Urine WBC Ur Squamous Epith Cells Urine Bacteria Hyaline Casts Granular Casts Urine Yeast Stool Occult Blood Stl C. cayetanensis PCR Stool Rotavirus A PCR Stl Adenov F 40/41 PCR Stool Astrovirus (PCR) Stool Campylobacter PCR Stool Cryptosporidium PCR Stl Sh Tox Pr E STEC PCR Stool E coli O157 PCR Stl Enterotoxigenic E PCR Stool EPEC (PCR) Stool EAEC (PCR) Stl E. histolytica PCR Stool Giardia Lamblia PCR Stl P. shigelloides PCR Stool Salmonella PCR Stool Sapovirus (PCR) Stl Shigella/EIEC PCR St Y.enterocolitica PCR Stool Vibrio (PCR) Stl Vibrio cholerae PCR Stl Norovirus GI/GII PCR Valproic Acid C. difficile Tox B Gene C. difficile Toxin A&B C. difficile Interpret 12/04/23 12/04/23 12/05/23 16:34 20:17 06:35 WBC RBC Hgb Hct MCV MCH MCHC RDW Plt Count MPV Immature Gran % (Auto) Neut % (Auto) Lymph % (Auto) [place] % (Auto) Eos % (Auto) Baso % (Auto) Lymph # (Auto) [place] # (Auto) Eos # (Auto) Baso # (Auto) Abs Immat Gran (auto) Absolute Neuts (auto) Absolute Nucleated RBC Nucleated RBC % (auto) VBG pH VBG pCO2 VBG pO2 VBG HCO3 VBG O2 Saturation VBG Base Excess Sodium Potassium Chloride Carbon Dioxide Anion Gap BUN Creatinine Estim Creat Clear Calc Estimated GFR POC Glucose 176 H 154 H 146 H Random Glucose Fasting Glucose Estimat Average Glucose Hemoglobin A1c % Calcium Total Bilirubin Direct Bilirubin AST ALT Alkaline Phosphatase Ammonia Total Protein Albumin Triglycerides Cholesterol LDL Cholesterol, Calc HDL Cholesterol Vitamin B12 Folate Beta-Hydroxybutyrate TSH Urine Color Urine Appearance Urine pH Ur Specific [place] Urine Protein Urine Glucose (UA) Urine Ketones Urine Blood Urine Nitrite Ur Leukocyte Esterase Urine RBC Urine WBC Ur Squamous Epith Cells Urine Bacteria Hyaline Casts Granular Casts Urine Yeast Stool Occult Blood Stl C. cayetanensis PCR Stool Rotavirus A PCR Stl Adenov F 40/41 PCR Stool Astrovirus (PCR) Stool Campylobacter PCR Stool Cryptosporidium PCR Stl Sh Tox Pr E STEC PCR Stool E coli O157 PCR Stl Enterotoxigenic E PCR Stool EPEC (PCR) Stool EAEC (PCR) Stl E. histolytica PCR Stool Giardia Lamblia PCR Stl P. shigelloides PCR Stool Salmonella PCR Stool Sapovirus (PCR) Stl Shigella/EIEC PCR St Y.enterocolitica PCR Stool Vibrio (PCR) Stl Vibrio cholerae PCR Stl Norovirus GI/GII PCR Valproic Acid C. difficile Tox B Gene C. difficile Toxin A&B C. difficile Interpret 12/05/23 12/05/23 12/05/23 11:08 16:36 20:27 WBC RBC Hgb Hct MCV MCH MCHC RDW Plt Count MPV Immature Gran % (Auto) Neut % (Auto) Lymph % (Auto) [place] % (Auto) Eos % (Auto) Baso % (Auto) Lymph # (Auto) [place] # (Auto) Eos # (Auto) Baso # (Auto) Abs Immat Gran (auto) Absolute Neuts (auto) Absolute Nucleated RBC Nucleated RBC % (auto) VBG pH VBG pCO2 VBG pO2 VBG HCO3 VBG O2 Saturation VBG Base Excess Sodium Potassium Chloride Carbon Dioxide Anion Gap BUN Creatinine Estim Creat Clear Calc Estimated GFR POC Glucose 164 H 162 H 198 H Random Glucose Fasting Glucose Estimat Average Glucose Hemoglobin A1c % Calcium Total Bilirubin Direct Bilirubin AST ALT Alkaline Phosphatase Ammonia Total Protein Albumin Triglycerides Cholesterol LDL Cholesterol, Calc HDL Cholesterol Vitamin B12 Folate Beta-Hydroxybutyrate TSH Urine Color Urine Appearance Urine pH Ur Specific [place] Urine Protein Urine Glucose (UA) Urine Ketones Urine Blood Urine Nitrite Ur Leukocyte Esterase Urine RBC Urine WBC Ur Squamous Epith Cells Urine Bacteria Hyaline Casts Granular Casts Urine Yeast Stool Occult Blood Stl C. cayetanensis PCR Stool Rotavirus A PCR Stl Adenov F 40/41 PCR Stool Astrovirus (PCR) Stool Campylobacter PCR Stool Cryptosporidium PCR Stl Sh Tox Pr E STEC PCR Stool E coli O157 PCR Stl Enterotoxigenic E PCR Stool EPEC (PCR) Stool EAEC (PCR) Stl E. histolytica PCR Stool Giardia Lamblia PCR Stl P. shigelloides PCR Stool Salmonella PCR Stool Sapovirus (PCR) Stl Shigella/EIEC PCR St Y.enterocolitica PCR Stool Vibrio (PCR) Stl Vibrio cholerae PCR Stl Norovirus GI/GII PCR Valproic Acid C. difficile Tox B Gene C. difficile Toxin A&B C. difficile Interpret 12/06/23 12/06/23 12/06/23 06:22 07:57 11:30 WBC RBC Hgb Hct MCV MCH MCHC RDW Plt Count MPV Immature Gran % (Auto) Neut % (Auto) Lymph % (Auto) [place] % (Auto) Eos % (Auto) Baso % (Auto) Lymph # (Auto) [place] # (Auto) Eos # (Auto) Baso # (Auto) Abs Immat Gran (auto) Absolute Neuts (auto) Absolute Nucleated RBC Nucleated RBC % (auto) VBG pH VBG pCO2 VBG pO2 VBG HCO3 VBG O2 Saturation VBG Base Excess Sodium 142 Potassium 4.5 Chloride 103 Carbon Dioxide 30 H Anion Gap 14 BUN 32 H Creatinine 0.88 Estim Creat Clear Calc 37.7 Estimated GFR > 60 POC Glucose 122 H 135 H Random Glucose Fasting Glucose 137 H Estimat Average Glucose Hemoglobin A1c % Calcium 10.7 H Total Bilirubin 0.5 Direct Bilirubin AST 24 ALT 15 Alkaline Phosphatase 97 Ammonia Total Protein 9.2 H Albumin 3.6 Triglycerides Cholesterol LDL Cholesterol, Calc HDL Cholesterol Vitamin B12 1504 H Folate 14.9 Beta-Hydroxybutyrate TSH 2.88 Urine Color Urine Appearance Urine pH Ur Specific [place] Urine Protein Urine Glucose (UA) Urine Ketones Urine Blood Urine Nitrite Ur Leukocyte Esterase Urine RBC Urine WBC Ur Squamous Epith Cells Urine Bacteria Hyaline Casts Granular Casts Urine Yeast Stool Occult Blood Stl C. cayetanensis PCR Stool Rotavirus A PCR Stl Adenov F PCR Stool Astrovirus (PCR) Stool Campylobacter PCR Stool Cryptosporidium PCR Stl Sh Tox Pr E STEC PCR Stool E coli O157 PCR Stl Enterotoxigenic E PCR Stool EPEC (PCR) Stool EAEC (PCR) Stl E. histolytica PCR Stool Giardia Lamblia PCR Stl P. shigelloides PCR Stool Salmonella PCR Stool Sapovirus (PCR) Stl Shigella/EIEC PCR St Y.enterocolitica PCR Stool Vibrio (PCR) Stl Vibrio cholerae PCR Stl Norovirus GI/GII PCR Valproic Acid C. difficile Tox B Gene C. difficile Toxin A&B C. difficile Interpret 12/06/23 12/06/23 12/07/23 16:30 19:51 06:57 WBC RBC Hgb Hct MCV MCH MCHC RDW Plt Count MPV Immature Gran % (Auto) Neut % (Auto) Lymph % (Auto) [place] % (Auto) Eos % (Auto) Baso % (Auto) Lymph # (Auto) [place] # (Auto) Eos # (Auto) Baso # (Auto) Abs Immat Gran (auto) Absolute Neuts (auto) Absolute Nucleated RBC Nucleated RBC % (auto) VBG pH VBG pCO2 VBG pO2 VBG HCO3 VBG O2 Saturation VBG Base Excess Sodium Potassium Chloride Carbon Dioxide Anion Gap BUN Creatinine Estim Creat Clear Calc Estimated GFR POC Glucose 173 H 208 H 151 H Random Glucose Fasting Glucose Estimat Average Glucose Hemoglobin A1c % Calcium Total Bilirubin Direct Bilirubin AST ALT Alkaline Phosphatase Ammonia Total Protein Albumin Triglycerides Cholesterol LDL Cholesterol, Calc HDL Cholesterol Vitamin B12 Folate Beta-Hydroxybutyrate TSH Urine Color Urine Appearance Urine pH Ur Specific [place] Urine Protein Urine Glucose (UA) Urine Ketones Urine Blood Urine Nitrite Ur Leukocyte Esterase Urine RBC Urine WBC Ur Squamous Epith Cells Urine Bacteria Hyaline Casts Granular Casts Urine Yeast Stool Occult Blood Stl C. cayetanensis PCR Stool Rotavirus A PCR Stl Adenov F PCR Stool Astrovirus (PCR) Stool Campylobacter PCR Stool Cryptosporidium PCR Stl Sh Tox Pr E STEC PCR Stool E coli O157 PCR Stl Enterotoxigenic E PCR Stool EPEC (PCR) Stool EAEC (PCR) Stl E. histolytica PCR Stool Giardia Lamblia PCR Stl P. shigelloides PCR Stool Salmonella PCR Stool Sapovirus (PCR) Stl Shigella/EIEC PCR St Y.enterocolitica PCR Stool Vibrio (PCR) Stl Vibrio cholerae PCR Stl Norovirus GI/GII PCR Valproic Acid C. difficile Tox B Gene C. difficile Toxin A&B C. difficile Interpret 12/07/23 12/07/23 12/07/23 11:09 16:11 19:32 WBC RBC Hgb Hct MCV MCH MCHC RDW Plt Count MPV Immature Gran % (Auto) Neut % (Auto) Lymph % (Auto) [place] % (Auto) Eos % (Auto) Baso % (Auto) Lymph # (Auto) [place] # (Auto) Eos # (Auto) Baso # (Auto) Abs Immat Gran (auto) Absolute Neuts (auto) Absolute Nucleated RBC Nucleated RBC % (auto) VBG pH VBG pCO2 VBG pO2 VBG HCO3 VBG O2 Saturation VBG Base Excess Sodium Potassium Chloride Carbon Dioxide Anion Gap BUN Creatinine Estim Creat Clear Calc Estimated GFR POC Glucose 167 H 154 H 225 H Random Glucose Fasting Glucose Estimat Average Glucose Hemoglobin A1c % Calcium Total Bilirubin Direct Bilirubin AST ALT Alkaline Phosphatase Ammonia Total Protein Albumin Triglycerides Cholesterol LDL Cholesterol, Calc HDL Cholesterol Vitamin B12 Folate Beta-Hydroxybutyrate TSH Urine Color Urine Appearance Urine pH Ur Specific [place] Urine Protein Urine Glucose (UA) Urine Ketones Urine Blood Urine Nitrite Ur Leukocyte Esterase Urine RBC Urine WBC Ur Squamous Epith Cells Urine Bacteria Hyaline Casts Granular Casts Urine Yeast Stool Occult Blood Stl C. cayetanensis PCR Stool Rotavirus A PCR Stl Adenov F 40/41 PCR Stool Astrovirus (PCR) Stool Campylobacter PCR Stool Cryptosporidium PCR Stl Sh Tox Pr E STEC PCR Stool E coli O157 PCR Stl Enterotoxigenic E PCR Stool EPEC (PCR) Stool EAEC (PCR) Stl E. histolytica PCR Stool Giardia Lamblia PCR Stl P. shigelloides PCR Stool Salmonella PCR Stool Sapovirus (PCR) Stl Shigella/EIEC PCR St Y.enterocolitica PCR Stool Vibrio (PCR) Stl Vibrio cholerae PCR Stl Norovirus GI/GII PCR Valproic Acid C. difficile Tox B Gene C. difficile Toxin A&B C. difficile Interpret 08/12/08/23 12/08/23 06:23 11:15 16:29 WBC RBC Hgb Hct MCV MCH MCHC RDW Plt Count MPV Immature Gran % (Auto) Neut % (Auto) Lymph % (Auto) [place] % (Auto) Eos % (Auto) Baso % (Auto) Lymph # (Auto) [place] # (Auto) Eos # (Auto) Baso # (Auto) Abs Immat Gran (auto) Absolute Neuts (auto) Absolute Nucleated RBC Nucleated RBC % (auto) VBG pH VBG pCO2 VBG pO2 VBG HCO3 VBG O2 Saturation VBG Base Excess Sodium Potassium Chloride Carbon Dioxide Anion Gap BUN Creatinine Estim Creat Clear Calc Estimated GFR POC Glucose 150 H 171 H 131 H Random Glucose Fasting Glucose Estimat Average Glucose Hemoglobin A1c % Calcium Total Bilirubin Direct Bilirubin AST ALT Alkaline Phosphatase Ammonia Total Protein Albumin Triglycerides Cholesterol LDL Cholesterol, Calc HDL Cholesterol Vitamin B12 Folate Beta-Hydroxybutyrate TSH Urine Color Urine Appearance Urine pH Ur Specific [place] Urine Protein Urine Glucose (UA) Urine Ketones Urine Blood Urine Nitrite Ur Leukocyte Esterase Urine RBC Urine WBC Ur Squamous Epith Cells Urine Bacteria Hyaline Casts Granular Casts Urine Yeast Stool Occult Blood Stl C. cayetanensis PCR Stool Rotavirus A PCR Stl Adenov F 40/41 PCR Stool Astrovirus (PCR) Stool Campylobacter PCR Stool Cryptosporidium PCR Stl Sh Tox Pr E STEC PCR Stool E coli O157 PCR Stl Enterotoxigenic E PCR Stool EPEC (PCR) Stool EAEC (PCR) Stl E. histolytica PCR Stool Giardia Lamblia PCR Stl P. shigelloides PCR Stool Salmonella PCR Stool Sapovirus (PCR) Stl Shigella/EIEC PCR St Y.enterocolitica PCR Stool Vibrio (PCR) Stl Vibrio cholerae PCR Stl Norovirus GI/GII PCR Valproic Acid C. difficile Tox B Gene C. difficile Toxin A&B C. difficile Interpret 12/08/23 12/08/23 12/09/23 19:07 20:11 06:32 WBC 3.3 L RBC 3.73 L Hgb 10.3 L Hct 32.0 L MCV 85.8 MCH 27.6 MCHC 32.2 RDW 14.2 Plt Count 99 L MPV 10.0 Immature Gran % (Auto) 0.3 Neut % (Auto) 53.2 Lymph % (Auto) 29.7 [place] % (Auto) 15.3 H Eos % (Auto) 1.2 Baso % (Auto) 0.3 Lymph # (Auto) 1.0 L [place] # (Auto) 0.5 Eos # (Auto) 0.0 Baso # (Auto) 0.0 Abs Immat Gran (auto) 0.01 Absolute Neuts (auto) 1.8 L Absolute Nucleated RBC 0.000 Nucleated RBC % (auto) 0.0 VBG pH VBG pCO2 VBG pO2 VBG HCO3 VBG O2 Saturation VBG Base Excess Sodium 142 Potassium 4.2 Chloride 104 Carbon Dioxide 30 H Anion Gap 12 BUN 27 H Creatinine 0.82 Estim Creat Clear Calc 40.4 Estimated GFR > 60 POC Glucose 116 H 145 H Random Glucose 114 Fasting Glucose Estimat Average Glucose Hemoglobin A1c % Calcium 10.5 H Total Bilirubin 0.6 Direct Bilirubin AST 25 ALT 14 Alkaline Phosphatase 90 Ammonia Total Protein 8.6 H Albumin 3.4 L Triglycerides Cholesterol LDL Cholesterol, Calc HDL Cholesterol Vitamin B12 Folate Beta-Hydroxybutyrate TSH Urine Color Urine Appearance Urine pH Ur Specific [place] Urine Protein Urine Glucose (UA) Urine Ketones Urine Blood Urine Nitrite Ur Leukocyte Esterase Urine RBC Urine WBC Ur Squamous Epith Cells Urine Bacteria Hyaline Casts Granular Casts Urine Yeast Stool Occult Blood Stl C. cayetanensis PCR Stool Rotavirus A PCR Stl Adenov F 40/41 PCR Stool Astrovirus (PCR) Stool Campylobacter PCR Stool Cryptosporidium PCR Stl Sh Tox Pr E STEC PCR Stool E coli O157 PCR Stl Enterotoxigenic E PCR Stool EPEC (PCR) Stool EAEC (PCR) Stl E. histolytica PCR Stool Giardia Lamblia PCR Stl P. shigelloides PCR Stool Salmonella PCR Stool Sapovirus (PCR) Stl Shigella/EIEC PCR St Y.enterocolitica PCR Stool Vibrio (PCR) Stl Vibrio cholerae PCR Stl Norovirus GI/GII PCR Valproic Acid C. difficile Tox B Gene C. difficile Toxin A&B C. difficile Interpret 12/09/23 12/09/23 12/09/23 09:57 11:34 16:28 WBC 2.8 L RBC 3.68 L Hgb 10.1 L Hct 32.1 L MCV 87.2 MCH 27.4 MCHC 31.5 RDW 14.4 Plt Count 86 L MPV 9.6 Immature Gran % (Auto) 0.0 Neut % (Auto) 56.4 Lymph % (Auto) 29.1 [place] % (Auto) 12.4 H Eos % (Auto) 1.4 Baso % (Auto) 0.7 Lymph # (Auto) 0.8 L [place] # (Auto) 0.4 Eos # (Auto) 0.0 Baso # (Auto) 0.0 Abs Immat Gran (auto) 0.00 Absolute Neuts (auto) 1.6 L Absolute Nucleated RBC 0.000 Nucleated RBC % (auto) 0.0 VBG pH VBG pCO2 VBG pO2 VBG HCO3 VBG O2 Saturation VBG Base Excess Sodium 140 Potassium 4.7 Chloride 103 Carbon Dioxide 30 H Anion Gap 12 BUN 30 H Creatinine 0.99 Estim Creat Clear Calc 33.4 Estimated GFR 55 POC Glucose 201 H 143 H Random Glucose 279 H Fasting Glucose Estimat Average Glucose Hemoglobin A1c % Calcium 10.4 H Total Bilirubin 0.4 Direct Bilirubin 0.2 AST 30 ALT 16 Alkaline Phosphatase 96 Ammonia Total Protein 8.4 H Albumin 3.3 L Triglycerides Cholesterol LDL Cholesterol, Calc HDL Cholesterol Vitamin B12 Folate Beta-Hydroxybutyrate TSH Urine Color Urine Appearance Urine pH Ur Specific [place] Urine Protein Urine Glucose (UA) Urine Ketones Urine Blood Urine Nitrite Ur Leukocyte Esterase Urine RBC Urine WBC Ur Squamous Epith Cells Urine Bacteria Hyaline Casts Granular Casts Urine Yeast Stool Occult Blood Stl C. cayetanensis PCR Stool Rotavirus A PCR Stl Adenov F 40/41 PCR Stool Astrovirus (PCR) Stool Campylobacter PCR Stool Cryptosporidium PCR Stl Sh Tox Pr E STEC PCR Stool E coli O157 PCR Stl Enterotoxigenic E PCR Stool EPEC (PCR) Stool EAEC (PCR) Stl E. histolytica PCR Stool Giardia Lamblia PCR Stl P. shigelloides PCR Stool Salmonella PCR Stool Sapovirus (PCR) Stl Shigella/EIEC PCR St Y.enterocolitica PCR Stool Vibrio (PCR) Stl Vibrio cholerae PCR Stl Norovirus GI/GII PCR Valproic Acid C. difficile Tox B Gene C. difficile Toxin A&B C. difficile Interpret 12/09/23 12/10/23 12/10/23 19:52 06:12 08:25 WBC RBC Hgb Hct MCV MCH MCHC RDW Plt Count MPV Immature Gran % (Auto) Neut % (Auto) Lymph % (Auto) [place] % (Auto) Eos % (Auto) Baso % (Auto) Lymph # (Auto) [place] # (Auto) Eos # (Auto) Baso # (Auto) Abs Immat Gran (auto) Absolute Neuts (auto) Absolute Nucleated RBC Nucleated RBC % (auto) VBG pH VBG pCO2 VBG pO2 VBG HCO3 VBG O2 Saturation VBG Base Excess Sodium Potassium Chloride Carbon Dioxide Anion Gap BUN Creatinine Estim Creat Clear Calc Estimated GFR POC Glucose 205 H 124 H 146 H Random Glucose Fasting Glucose Estimat Average Glucose Hemoglobin A1c % Calcium Total Bilirubin Direct Bilirubin AST ALT Alkaline Phosphatase Ammonia Total Protein Albumin Triglycerides Cholesterol LDL Cholesterol, Calc HDL Cholesterol Vitamin B12 Folate Beta-Hydroxybutyrate TSH Urine Color Urine Appearance Urine pH Ur Specific [place] Urine Protein Urine Glucose (UA) Urine Ketones Urine Blood Urine Nitrite Ur Leukocyte Esterase Urine RBC Urine WBC Ur Squamous Epith Cells Urine Bacteria Hyaline Casts Granular Casts Urine Yeast Stool Occult Blood Stl C. cayetanensis PCR Stool Rotavirus A PCR Stl Adenov F 40/ PCR Stool Astrovirus (PCR) Stool Campylobacter PCR Stool Cryptosporidium PCR Stl Sh Tox Pr E STEC PCR Stool E coli O157 PCR Stl Enterotoxigenic E PCR Stool EPEC (PCR) Stool EAEC (PCR) Stl E. histolytica PCR Stool Giardia Lamblia PCR Stl P. shigelloides PCR Stool Salmonella PCR Stool Sapovirus (PCR) Stl Shigella/EIEC PCR St Y.enterocolitica PCR Stool Vibrio (PCR) Stl Vibrio cholerae PCR Stl Norovirus GI/GII PCR Valproic Acid C. difficile Tox B Gene C. difficile Toxin A&B C. difficile Interpret 12/10/23 12/10/23 12/10/23 11:53 16:42 20:01 WBC RBC Hgb Hct MCV MCH MCHC RDW Plt Count MPV Immature Gran % (Auto) Neut % (Auto) Lymph % (Auto) [place] % (Auto) Eos % (Auto) Baso % (Auto) Lymph # (Auto) [place] # (Auto) Eos # (Auto) Baso # (Auto) Abs Immat Gran (auto) Absolute Neuts (auto) Absolute Nucleated RBC Nucleated RBC % (auto) VBG pH VBG pCO2 VBG pO2 VBG HCO3 VBG O2 Saturation VBG Base Excess Sodium Potassium Chloride Carbon Dioxide Anion Gap BUN Creatinine Estim Creat Clear Calc Estimated GFR POC Glucose 185 H 164 H 139 H Random Glucose Fasting Glucose Estimat Average Glucose Hemoglobin A1c % Calcium Total Bilirubin Direct Bilirubin AST ALT Alkaline Phosphatase Ammonia Total Protein Albumin Triglycerides Cholesterol LDL Cholesterol, Calc HDL Cholesterol Vitamin B12 Folate Beta-Hydroxybutyrate TSH Urine Color Urine Appearance Urine pH Ur Specific [place] Urine Protein Urine Glucose (UA) Urine Ketones Urine Blood Urine Nitrite Ur Leukocyte Esterase Urine RBC Urine WBC Ur Squamous Epith Cells Urine Bacteria Hyaline Casts Granular Casts Urine Yeast Stool Occult Blood Stl C. cayetanensis PCR Stool Rotavirus A PCR Stl Adenov F PCR Stool Astrovirus (PCR) Stool Campylobacter PCR Stool Cryptosporidium PCR Stl Sh Tox Pr E STEC PCR Stool E coli O157 PCR Stl Enterotoxigenic E PCR Stool EPEC (PCR) Stool EAEC (PCR) Stl E. histolytica PCR Stool Giardia Lamblia PCR Stl P. shigelloides PCR Stool Salmonella PCR Stool Sapovirus (PCR) Stl Shigella/EIEC PCR St Y.enterocolitica PCR Stool Vibrio (PCR) Stl Vibrio cholerae PCR Stl Norovirus GI/GII PCR Valproic Acid C. difficile Tox B Gene C. difficile Toxin A&B C. difficile Interpret 12/11/23 12/11/23 12/11/23 06:00 11:58 16:39 WBC RBC Hgb Hct MCV MCH MCHC RDW Plt Count MPV Immature Gran % (Auto) Neut % (Auto) Lymph % (Auto) [place] % (Auto) Eos % (Auto) Baso % (Auto) Lymph # (Auto) [place] # (Auto) Eos # (Auto) Baso # (Auto) Abs Immat Gran (auto) Absolute Neuts (auto) Absolute Nucleated RBC Nucleated RBC % (auto) VBG pH VBG pCO2 VBG pO2 VBG HCO3 VBG O2 Saturation VBG Base Excess Sodium Potassium Chloride Carbon Dioxide Anion Gap BUN Creatinine Estim Creat Clear Calc Estimated GFR POC Glucose 151 H 158 H 134 H Random Glucose Fasting Glucose Estimat Average Glucose Hemoglobin A1c % Calcium Total Bilirubin Direct Bilirubin AST ALT Alkaline Phosphatase Ammonia Total Protein Albumin Triglycerides Cholesterol LDL Cholesterol, Calc HDL Cholesterol Vitamin B12 Folate Beta-Hydroxybutyrate TSH Urine Color Urine Appearance Urine pH Ur Specific [place] Urine Protein Urine Glucose (UA) Urine Ketones Urine Blood Urine Nitrite Ur Leukocyte Esterase Urine RBC Urine WBC Ur Squamous Epith Cells Urine Bacteria Hyaline Casts Granular Casts Urine Yeast Stool Occult Blood Stl C. cayetanensis PCR Stool Rotavirus A PCR Stl Adenov F PCR Stool Astrovirus (PCR) Stool Campylobacter PCR Stool Cryptosporidium PCR Stl Sh Tox Pr E STEC PCR Stool E coli O157 PCR Stl Enterotoxigenic E PCR Stool EPEC (PCR) Stool EAEC (PCR) Stl E. histolytica PCR Stool Giardia Lamblia PCR Stl P. shigelloides PCR Stool Salmonella PCR Stool Sapovirus (PCR) Stl Shigella/EIEC PCR St Y.enterocolitica PCR Stool Vibrio (PCR) Stl Vibrio cholerae PCR Stl Norovirus GI/GII PCR Valproic Acid C. difficile Tox B Gene C. difficile Toxin A&B C. difficile Interpret 12/11/23 12/12/23 12/12/23 19:50 06:41 11:33 WBC RBC Hgb Hct MCV MCH MCHC RDW Plt Count MPV Immature Gran % (Auto) Neut % (Auto) Lymph % (Auto) [place] % (Auto) Eos % (Auto) Baso % (Auto) Lymph # (Auto) [place] # (Auto) Eos # (Auto) Baso # (Auto) Abs Immat Gran (auto) Absolute Neuts (auto) Absolute Nucleated RBC Nucleated RBC % (auto) VBG pH VBG pCO2 VBG pO2 VBG HCO3 VBG O2 Saturation VBG Base Excess Sodium Potassium Chloride Carbon Dioxide Anion Gap BUN Creatinine Estim Creat Clear Calc Estimated GFR POC Glucose 136 H 149 H 230 H Random Glucose Fasting Glucose Estimat Average Glucose Hemoglobin A1c % Calcium Total Bilirubin Direct Bilirubin AST ALT Alkaline Phosphatase Ammonia Total Protein Albumin Triglycerides Cholesterol LDL Cholesterol, Calc HDL Cholesterol Vitamin B12 Folate Beta-Hydroxybutyrate TSH Urine Color Urine Appearance Urine pH Ur Specific [place] Urine Protein Urine Glucose (UA) Urine Ketones Urine Blood Urine Nitrite Ur Leukocyte Esterase Urine RBC Urine WBC Ur Squamous Epith Cells Urine Bacteria Hyaline Casts Granular Casts Urine Yeast Stool Occult Blood Stl C. cayetanensis PCR Stool Rotavirus A PCR Stl Adenov F 40/41 PCR Stool Astrovirus (PCR) Stool Campylobacter PCR Stool Cryptosporidium PCR Stl Sh Tox Pr E STEC PCR Stool E coli O157 PCR Stl Enterotoxigenic E PCR Stool EPEC (PCR) Stool EAEC (PCR) Stl E. histolytica PCR Stool Giardia Lamblia PCR Stl P. shigelloides PCR Stool Salmonella PCR Stool Sapovirus (PCR) Stl Shigella/EIEC PCR St Y.enterocolitica PCR Stool Vibrio (PCR) Stl Vibrio cholerae PCR Stl Norovirus GI/GII PCR Valproic Acid C. difficile Tox B Gene C. difficile Toxin A&B C. difficile Interpret 12/12/23 12/12/23 12/13/23 16:28 20:34 06:19 WBC RBC Hgb Hct MCV MCH MCHC RDW Plt Count MPV Immature Gran % (Auto) Neut % (Auto) Lymph % (Auto) [place] % (Auto) Eos % (Auto) Baso % (Auto) Lymph # (Auto) [place] # (Auto) Eos # (Auto) Baso # (Auto) Abs Immat Gran (auto) Absolute Neuts (auto) Absolute Nucleated RBC Nucleated RBC % (auto) VBG pH VBG pCO2 VBG pO2 VBG HCO3 VBG O2 Saturation VBG Base Excess Sodium Potassium Chloride Carbon Dioxide Anion Gap BUN Creatinine Estim Creat Clear Calc Estimated GFR POC Glucose 256 H 194 H 165 H Random Glucose Fasting Glucose Estimat Average Glucose Hemoglobin A1c % Calcium Total Bilirubin Direct Bilirubin AST ALT Alkaline Phosphatase Ammonia Total Protein Albumin Triglycerides Cholesterol LDL Cholesterol, Calc HDL Cholesterol Vitamin B12 Folate Beta-Hydroxybutyrate TSH Urine Color Urine Appearance Urine pH Ur Specific [place] Urine Protein Urine Glucose (UA) Urine Ketones Urine Blood Urine Nitrite Ur Leukocyte Esterase Urine RBC Urine WBC Ur Squamous Epith Cells Urine Bacteria Hyaline Casts Granular Casts Urine Yeast Stool Occult Blood Stl C. cayetanensis PCR Stool Rotavirus A PCR Stl Adenov F 40/41 PCR Stool Astrovirus (PCR) Stool Campylobacter PCR Stool Cryptosporidium PCR Stl Sh Tox Pr E STEC PCR Stool E coli O157 PCR Stl Enterotoxigenic E PCR Stool EPEC (PCR) Stool EAEC (PCR) Stl E. histolytica PCR Stool Giardia Lamblia PCR Stl P. shigelloides PCR Stool Salmonella PCR Stool Sapovirus (PCR) Stl Shigella/EIEC PCR St Y.enterocolitica PCR Stool Vibrio (PCR) Stl Vibrio cholerae PCR Stl Norovirus GI/GII PCR Valproic Acid C. difficile Tox B Gene C. difficile Toxin A&B C. difficile Interpret 12/13/23 12/13/23 12/13/23 11:02 16:26 19:57 WBC RBC Hgb Hct MCV MCH MCHC RDW Plt Count MPV Immature Gran % (Auto) Neut % (Auto) Lymph % (Auto) [place] % (Auto) Eos % (Auto) Baso % (Auto) Lymph # (Auto) [place] # (Auto) Eos # (Auto) Baso # (Auto) Abs Immat Gran (auto) Absolute Neuts (auto) Absolute Nucleated RBC Nucleated RBC % (auto) VBG pH VBG pCO2 VBG pO2 VBG HCO3 VBG O2 Saturation VBG Base Excess Sodium Potassium Chloride Carbon Dioxide Anion Gap BUN Creatinine Estim Creat Clear Calc Estimated GFR POC Glucose 248 H 247 H 179 H Random Glucose Fasting Glucose Estimat Average Glucose Hemoglobin A1c % Calcium Total Bilirubin Direct Bilirubin AST ALT Alkaline Phosphatase Ammonia Total Protein Albumin Triglycerides Cholesterol LDL Cholesterol, Calc HDL Cholesterol Vitamin B12 Folate Beta-Hydroxybutyrate TSH Urine Color Urine Appearance Urine pH Ur Specific [place] Urine Protein Urine Glucose (UA) Urine Ketones Urine Blood Urine Nitrite Ur Leukocyte Esterase Urine RBC Urine WBC Ur Squamous Epith Cells Urine Bacteria Hyaline Casts Granular Casts Urine Yeast Stool Occult Blood Stl C. cayetanensis PCR Stool Rotavirus A PCR Stl Adenov F 40/41 PCR Stool Astrovirus (PCR) Stool Campylobacter PCR Stool Cryptosporidium PCR Stl Sh Tox Pr E STEC PCR Stool E coli O157 PCR Stl Enterotoxigenic E PCR Stool EPEC (PCR) Stool EAEC (PCR) Stl E. histolytica PCR Stool Giardia Lamblia PCR Stl P. shigelloides PCR Stool Salmonella PCR Stool Sapovirus (PCR) Stl Shigella/EIEC PCR St Y.enterocolitica PCR Stool Vibrio (PCR) Stl Vibrio cholerae PCR Stl Norovirus GI/GII PCR Valproic Acid C. difficile Tox B Gene C. difficile Toxin A&B C. difficile Interpret 12/14/23 12/14/23 12/14/23 06:32 07:37 11:48 WBC RBC Hgb Hct MCV MCH MCHC RDW Plt Count MPV Immature Gran % (Auto) Neut % (Auto) Lymph % (Auto) [place] % (Auto) Eos % (Auto) Baso % (Auto) Lymph # (Auto) [place] # (Auto) Eos # (Auto) Baso # (Auto) Abs Immat Gran (auto) Absolute Neuts (auto) Absolute Nucleated RBC Nucleated RBC % (auto) VBG pH VBG pCO2 VBG pO2 VBG HCO3 VBG O2 Saturation VBG Base Excess Sodium 139 Potassium 4.2 Chloride 103 Carbon Dioxide 28 Anion Gap 12 BUN 25 H Creatinine 0.84 Estim Creat Clear Calc 39.4 Estimated GFR > 60 POC Glucose 120 H 158 H Random Glucose Fasting Glucose 135 H Estimat Average Glucose Hemoglobin A1c % Calcium 10.0 Total Bilirubin 0.6 Direct Bilirubin AST 43 H ALT 23 Alkaline Phosphatase 101 Ammonia Total Protein 8.0 Albumin 3.0 L Triglycerides Cholesterol LDL Cholesterol, Calc HDL Cholesterol Vitamin B12 Folate Beta-Hydroxybutyrate TSH Urine Color Urine Appearance Urine pH Ur Specific [place] Urine Protein Urine Glucose (UA) Urine Ketones Urine Blood Urine Nitrite Ur Leukocyte Esterase Urine RBC Urine WBC Ur Squamous Epith Cells Urine Bacteria Hyaline Casts Granular Casts Urine Yeast Stool Occult Blood Stl C. cayetanensis PCR Stool Rotavirus A PCR Stl Adenov F PCR Stool Astrovirus (PCR) Stool Campylobacter PCR Stool Cryptosporidium PCR Stl Sh Tox Pr E STEC PCR Stool E coli O157 PCR Stl Enterotoxigenic E PCR Stool EPEC (PCR) Stool EAEC (PCR) Stl E. histolytica PCR Stool Giardia Lamblia PCR Stl P. shigelloides PCR Stool Salmonella PCR Stool Sapovirus (PCR) Stl Shigella/EIEC PCR St Y.enterocolitica PCR Stool Vibrio (PCR) Stl Vibrio cholerae PCR Stl Norovirus GI/GII PCR Valproic Acid C. difficile Tox B Gene C. difficile Toxin A&B C. difficile Interpret 12/14/23 12/14/23 12/15/23 16:05 19:57 06:34 WBC RBC Hgb Hct MCV MCH MCHC RDW Plt Count MPV Immature Gran % (Auto) Neut % (Auto) Lymph % (Auto) [place] % (Auto) Eos % (Auto) Baso % (Auto) Lymph # (Auto) [place] # (Auto) Eos # (Auto) Baso # (Auto) Abs Immat Gran (auto) Absolute Neuts (auto) Absolute Nucleated RBC Nucleated RBC % (auto) VBG pH VBG pCO2 VBG pO2 VBG HCO3 VBG O2 Saturation VBG Base Excess Sodium Potassium Chloride Carbon Dioxide Anion Gap BUN Creatinine Estim Creat Clear Calc Estimated GFR POC Glucose 128 H 248 H 92 Random Glucose Fasting Glucose Estimat Average Glucose Hemoglobin A1c % Calcium Total Bilirubin Direct Bilirubin AST ALT Alkaline Phosphatase Ammonia Total Protein Albumin Triglycerides Cholesterol LDL Cholesterol, Calc HDL Cholesterol Vitamin B12 Folate Beta-Hydroxybutyrate TSH Urine Color Urine Appearance Urine pH Ur Specific [place] Urine Protein Urine Glucose (UA) Urine Ketones Urine Blood Urine Nitrite Ur Leukocyte Esterase Urine RBC Urine WBC Ur Squamous Epith Cells Urine Bacteria Hyaline Casts Granular Casts Urine Yeast Stool Occult Blood Stl C. cayetanensis PCR Stool Rotavirus A PCR Stl Adenov F PCR Stool Astrovirus (PCR) Stool Campylobacter PCR Stool Cryptosporidium PCR Stl Sh Tox Pr E STEC PCR Stool E coli O157 PCR Stl Enterotoxigenic E PCR Stool EPEC (PCR) Stool EAEC (PCR) Stl E. histolytica PCR Stool Giardia Lamblia PCR Stl P. shigelloides PCR Stool Salmonella PCR Stool Sapovirus (PCR) Stl Shigella/EIEC PCR St Y.enterocolitica PCR Stool Vibrio (PCR) Stl Vibrio cholerae PCR Stl Norovirus GI/GII PCR Valproic Acid C. difficile Tox B Gene C. difficile Toxin A&B C. difficile Interpret 12/15/23 12/15/23 12/15/23 11:20 16:06 20:24 WBC RBC Hgb Hct MCV MCH MCHC RDW Plt Count MPV Immature Gran % (Auto) Neut % (Auto) Lymph % (Auto) [place] % (Auto) Eos % (Auto) Baso % (Auto) Lymph # (Auto) [place] # (Auto) Eos # (Auto) Baso # (Auto) Abs Immat Gran (auto) Absolute Neuts (auto) Absolute Nucleated RBC Nucleated RBC % (auto) VBG pH VBG pCO2 VBG pO2 VBG HCO3 VBG O2 Saturation VBG Base Excess Sodium Potassium Chloride Carbon Dioxide Anion Gap BUN Creatinine Estim Creat Clear Calc Estimated GFR POC Glucose 295 H 142 H 230 H Random Glucose Fasting Glucose Estimat Average Glucose Hemoglobin A1c % Calcium Total Bilirubin Direct Bilirubin AST ALT Alkaline Phosphatase Ammonia Total Protein Albumin Triglycerides Cholesterol LDL Cholesterol, Calc HDL Cholesterol Vitamin B12 Folate Beta-Hydroxybutyrate TSH Urine Color Urine Appearance Urine pH Ur Specific [place] Urine Protein Urine Glucose (UA) Urine Ketones Urine Blood Urine Nitrite Ur Leukocyte Esterase Urine RBC Urine WBC Ur Squamous Epith Cells Urine Bacteria Hyaline Casts Granular Casts Urine Yeast Stool Occult Blood Stl C. cayetanensis PCR Stool Rotavirus A PCR Stl Adenov F 40/41 PCR Stool Astrovirus (PCR) Stool Campylobacter PCR Stool Cryptosporidium PCR Stl Sh Tox Pr E STEC PCR Stool E coli O157 PCR Stl Enterotoxigenic E PCR Stool EPEC (PCR) Stool EAEC (PCR) Stl E. histolytica PCR Stool Giardia Lamblia PCR Stl P. shigelloides PCR Stool Salmonella PCR Stool Sapovirus (PCR) Stl Shigella/EIEC PCR St Y.enterocolitica PCR Stool Vibrio (PCR) Stl Vibrio cholerae PCR Stl Norovirus GI/GII PCR Valproic Acid C. difficile Tox B Gene C. difficile Toxin A&B C. difficile Interpret 12/16/23 12/16/23 12/16/23 06:30 11:13 16:19 WBC RBC Hgb Hct MCV MCH MCHC RDW Plt Count MPV Immature Gran % (Auto) Neut % (Auto) Lymph % (Auto) [place] % (Auto) Eos % (Auto) Baso % (Auto) Lymph # (Auto) [place] # (Auto) Eos # (Auto) Baso # (Auto) Abs Immat Gran (auto) Absolute Neuts (auto) Absolute Nucleated RBC Nucleated RBC % (auto) VBG pH VBG pCO2 VBG pO2 VBG HCO3 VBG O2 Saturation VBG Base Excess Sodium Potassium Chloride Carbon Dioxide Anion Gap BUN Creatinine Estim Creat Clear Calc Estimated GFR POC Glucose 90 136 H 186 H Random Glucose Fasting Glucose Estimat Average Glucose Hemoglobin A1c % Calcium Total Bilirubin Direct Bilirubin AST ALT Alkaline Phosphatase Ammonia Total Protein Albumin Triglycerides Cholesterol LDL Cholesterol, Calc HDL Cholesterol Vitamin B12 Folate Beta-Hydroxybutyrate TSH Urine Color Urine Appearance Urine pH Ur Specific [place] Urine Protein Urine Glucose (UA) Urine Ketones Urine Blood Urine Nitrite Ur Leukocyte Esterase Urine RBC Urine WBC Ur Squamous Epith Cells Urine Bacteria Hyaline Casts Granular Casts Urine Yeast Stool Occult Blood Stl C. cayetanensis PCR Stool Rotavirus A PCR Stl Adenov F 40/ PCR Stool Astrovirus (PCR) Stool Campylobacter PCR Stool Cryptosporidium PCR Stl Sh Tox Pr E STEC PCR Stool E coli O157 PCR Stl Enterotoxigenic E PCR Stool EPEC (PCR) Stool EAEC (PCR) Stl E. histolytica PCR Stool Giardia Lamblia PCR Stl P. shigelloides PCR Stool Salmonella PCR Stool Sapovirus (PCR) Stl Shigella/EIEC PCR St Y.enterocolitica PCR Stool Vibrio (PCR) Stl Vibrio cholerae PCR Stl Norovirus GI/GII PCR Valproic Acid C. difficile Tox B Gene C. difficile Toxin A&B C. difficile Interpret 12/16/23 12/17/23 12/17/23 20:22 06:40 08:06 WBC RBC Hgb Hct MCV MCH MCHC RDW Plt Count MPV Immature Gran % (Auto) Neut % (Auto) Lymph % (Auto) [place] % (Auto) Eos % (Auto) Baso % (Auto) Lymph # (Auto) [place] # (Auto) Eos # (Auto) Baso # (Auto) Abs Immat Gran (auto) Absolute Neuts (auto) Absolute Nucleated RBC Nucleated RBC % (auto) VBG pH VBG pCO2 VBG pO2 VBG HCO3 VBG O2 Saturation VBG Base Excess Sodium Potassium Chloride Carbon Dioxide Anion Gap BUN Creatinine Estim Creat Clear Calc Estimated GFR POC Glucose 196 H 139 H Random Glucose Fasting Glucose Estimat Average Glucose Hemoglobin A1c % Calcium Total Bilirubin Direct Bilirubin AST ALT Alkaline Phosphatase Ammonia Total Protein Albumin Triglycerides Cholesterol LDL Cholesterol, Calc HDL Cholesterol Vitamin B12 Folate Beta-Hydroxybutyrate TSH Urine Color Urine Appearance Urine pH Ur Specific [place] Urine Protein Urine Glucose (UA) Urine Ketones Urine Blood Urine Nitrite Ur Leukocyte Esterase Urine RBC Urine WBC Ur Squamous Epith Cells Urine Bacteria Hyaline Casts Granular Casts Urine Yeast Stool Occult Blood Stl C. cayetanensis PCR Stool Rotavirus A PCR Stl Adenov F 40/ PCR Stool Astrovirus (PCR) Stool Campylobacter PCR Stool Cryptosporidium PCR Stl Sh Tox Pr E STEC PCR Stool E coli O157 PCR Stl Enterotoxigenic E PCR Stool EPEC (PCR) Stool EAEC (PCR) Stl E. histolytica PCR Stool Giardia Lamblia PCR Stl P. shigelloides PCR Stool Salmonella PCR Stool Sapovirus (PCR) Stl Shigella/EIEC PCR St Y.enterocolitica PCR Stool Vibrio (PCR) Stl Vibrio cholerae PCR Stl Norovirus GI/GII PCR Valproic Acid 24.9 L C. difficile Tox B Gene C. difficile Toxin A&B C. difficile Interpret 12/17/23 12/17/23 12/18/23 11:34 19:59 06:40 WBC RBC Hgb Hct MCV MCH MCHC RDW Plt Count MPV Immature Gran % (Auto) Neut % (Auto) Lymph % (Auto) [place] % (Auto) Eos % (Auto) Baso % (Auto) Lymph # (Auto) [place] # (Auto) Eos # (Auto) Baso # (Auto) Abs Immat Gran (auto) Absolute Neuts (auto) Absolute Nucleated RBC Nucleated RBC % (auto) VBG pH VBG pCO2 VBG pO2 VBG HCO3 VBG O2 Saturation VBG Base Excess Sodium Potassium Chloride Carbon Dioxide Anion Gap BUN Creatinine Estim Creat Clear Calc Estimated GFR POC Glucose 194 H 207 H 146 H Random Glucose Fasting Glucose Estimat Average Glucose Hemoglobin A1c % Calcium Total Bilirubin Direct Bilirubin AST ALT Alkaline Phosphatase Ammonia Total Protein Albumin Triglycerides Cholesterol LDL Cholesterol, Calc HDL Cholesterol Vitamin B12 Folate Beta-Hydroxybutyrate TSH Urine Color Urine Appearance Urine pH Ur Specific [place] Urine Protein Urine Glucose (UA) Urine Ketones Urine Blood Urine Nitrite Ur Leukocyte Esterase Urine RBC Urine WBC Ur Squamous Epith Cells Urine Bacteria Hyaline Casts Granular Casts Urine Yeast Stool Occult Blood Stl C. cayetanensis PCR Stool Rotavirus A PCR Stl Adenov F PCR Stool Astrovirus (PCR) Stool Campylobacter PCR Stool Cryptosporidium PCR Stl Sh Tox Pr E STEC PCR Stool E coli O157 PCR Stl Enterotoxigenic E PCR Stool EPEC (PCR) Stool EAEC (PCR) Stl E. histolytica PCR Stool Giardia Lamblia PCR Stl P. shigelloides PCR Stool Salmonella PCR Stool Sapovirus (PCR) Stl Shigella/EIEC PCR St Y.enterocolitica PCR Stool Vibrio (PCR) Stl Vibrio cholerae PCR Stl Norovirus GI/GII PCR Valproic Acid C. difficile Tox B Gene C. difficile Toxin A&B C. difficile Interpret 12/18/23 12/18/23 12/18/23 11:31 16:32 19:57 WBC RBC Hgb Hct MCV MCH MCHC RDW Plt Count MPV Immature Gran % (Auto) Neut % (Auto) Lymph % (Auto) [place] % (Auto) Eos % (Auto) Baso % (Auto) Lymph # (Auto) [place] # (Auto) Eos # (Auto) Baso # (Auto) Abs Immat Gran (auto) Absolute Neuts (auto) Absolute Nucleated RBC Nucleated RBC % (auto) VBG pH VBG pCO2 VBG pO2 VBG HCO3 VBG O2 Saturation VBG Base Excess Sodium Potassium Chloride Carbon Dioxide Anion Gap BUN Creatinine Estim Creat Clear Calc Estimated GFR POC Glucose 149 H 126 H 134 H Random Glucose Fasting Glucose Estimat Average Glucose Hemoglobin A1c % Calcium Total Bilirubin Direct Bilirubin AST ALT Alkaline Phosphatase Ammonia Total Protein Albumin Triglycerides Cholesterol LDL Cholesterol, Calc HDL Cholesterol Vitamin B12 Folate Beta-Hydroxybutyrate TSH Urine Color Urine Appearance Urine pH Ur Specific [place] Urine Protein Urine Glucose (UA) Urine Ketones Urine Blood Urine Nitrite Ur Leukocyte Esterase Urine RBC Urine WBC Ur Squamous Epith Cells Urine Bacteria Hyaline Casts Granular Casts Urine Yeast Stool Occult Blood Stl C. cayetanensis PCR Stool Rotavirus A PCR Stl Adenov F PCR Stool Astrovirus (PCR) Stool Campylobacter PCR Stool Cryptosporidium PCR Stl Sh Tox Pr E STEC PCR Stool E coli O157 PCR Stl Enterotoxigenic E PCR Stool EPEC (PCR) Stool EAEC (PCR) Stl E. histolytica PCR Stool Giardia Lamblia PCR Stl P. shigelloides PCR Stool Salmonella PCR Stool Sapovirus (PCR) Stl Shigella/EIEC PCR St Y.enterocolitica PCR Stool Vibrio (PCR) Stl Vibrio cholerae PCR Stl Norovirus GI/GII PCR Valproic Acid C. difficile Tox B Gene C. difficile Toxin A&B C. difficile Interpret 12/19/23 12/19/23 12/19/23 06:12 11:04 16:05 WBC RBC Hgb Hct MCV MCH MCHC RDW Plt Count MPV Immature Gran % (Auto) Neut % (Auto) Lymph % (Auto) [place] % (Auto) Eos % (Auto) Baso % (Auto) Lymph # (Auto) [place] # (Auto) Eos # (Auto) Baso # (Auto) Abs Immat Gran (auto) Absolute Neuts (auto) Absolute Nucleated RBC Nucleated RBC % (auto) VBG pH VBG pCO2 VBG pO2 VBG HCO3 VBG O2 Saturation VBG Base Excess Sodium Potassium Chloride Carbon Dioxide Anion Gap BUN Creatinine Estim Creat Clear Calc Estimated GFR POC Glucose 123 H 116 H 121 H Random Glucose Fasting Glucose Estimat Average Glucose Hemoglobin A1c % Calcium Total Bilirubin Direct Bilirubin AST ALT Alkaline Phosphatase Ammonia Total Protein Albumin Triglycerides Cholesterol LDL Cholesterol, Calc HDL Cholesterol Vitamin B12 Folate Beta-Hydroxybutyrate TSH Urine Color Urine Appearance Urine pH Ur Specific [place] Urine Protein Urine Glucose (UA) Urine Ketones Urine Blood Urine Nitrite Ur Leukocyte Esterase Urine RBC Urine WBC Ur Squamous Epith Cells Urine Bacteria Hyaline Casts Granular Casts Urine Yeast Stool Occult Blood Stl C. cayetanensis PCR Stool Rotavirus A PCR Stl Adenov F 40/41 PCR Stool Astrovirus (PCR) Stool Campylobacter PCR Stool Cryptosporidium PCR Stl Sh Tox Pr E STEC PCR Stool E coli O157 PCR Stl Enterotoxigenic E PCR Stool EPEC (PCR) Stool EAEC (PCR) Stl E. histolytica PCR Stool Giardia Lamblia PCR Stl P. shigelloides PCR Stool Salmonella PCR Stool Sapovirus (PCR) Stl Shigella/EIEC PCR St Y.enterocolitica PCR Stool Vibrio (PCR) Stl Vibrio cholerae PCR Stl Norovirus GI/GII PCR Valproic Acid C. difficile Tox B Gene C. difficile Toxin A&B C. difficile Interpret 12/19/23 12/20/23 12/20/23 19:35 06:05 11:29 WBC RBC Hgb Hct MCV MCH MCHC RDW Plt Count MPV Immature Gran % (Auto) Neut % (Auto) Lymph % (Auto) [place] % (Auto) Eos % (Auto) Baso % (Auto) Lymph # (Auto) [place] # (Auto) Eos # (Auto) Baso # (Auto) Abs Immat Gran (auto) Absolute Neuts (auto) Absolute Nucleated RBC Nucleated RBC % (auto) VBG pH VBG pCO2 VBG pO2 VBG HCO3 VBG O2 Saturation VBG Base Excess Sodium Potassium Chloride Carbon Dioxide Anion Gap BUN Creatinine Estim Creat Clear Calc Estimated GFR POC Glucose 275 H 111 192 H Random Glucose Fasting Glucose Estimat Average Glucose Hemoglobin A1c % Calcium Total Bilirubin Direct Bilirubin AST ALT Alkaline Phosphatase Ammonia Total Protein Albumin Triglycerides Cholesterol LDL Cholesterol, Calc HDL Cholesterol Vitamin B12 Folate Beta-Hydroxybutyrate TSH Urine Color Urine Appearance Urine pH Ur Specific [place] Urine Protein Urine Glucose (UA) Urine Ketones Urine Blood Urine Nitrite Ur Leukocyte Esterase Urine RBC Urine WBC Ur Squamous Epith Cells Urine Bacteria Hyaline Casts Granular Casts Urine Yeast Stool Occult Blood Stl C. cayetanensis PCR Stool Rotavirus A PCR Stl Adenov F 40/41 PCR Stool Astrovirus (PCR) Stool Campylobacter PCR Stool Cryptosporidium PCR Stl Sh Tox Pr E STEC PCR Stool E coli O157 PCR Stl Enterotoxigenic E PCR Stool EPEC (PCR) Stool EAEC (PCR) Stl E. histolytica PCR Stool Giardia Lamblia PCR Stl P. shigelloides PCR Stool Salmonella PCR Stool Sapovirus (PCR) Stl Shigella/EIEC PCR St Y.enterocolitica PCR Stool Vibrio (PCR) Stl Vibrio cholerae PCR Stl Norovirus GI/GII PCR Valproic Acid C. difficile Tox B Gene C. difficile Toxin A&B C. difficile Interpret 12/20/23 12/20/23 12/21/23 16:28 21:00 06:42 WBC RBC Hgb Hct MCV MCH MCHC RDW Plt Count MPV Immature Gran % (Auto) Neut % (Auto) Lymph % (Auto) [place] % (Auto) Eos % (Auto) Baso % (Auto) Lymph # (Auto) [place] # (Auto) Eos # (Auto) Baso # (Auto) Abs Immat Gran (auto) Absolute Neuts (auto) Absolute Nucleated RBC Nucleated RBC % (auto) VBG pH VBG pCO2 VBG pO2 VBG HCO3 VBG O2 Saturation VBG Base Excess Sodium Potassium Chloride Carbon Dioxide Anion Gap BUN Creatinine Estim Creat Clear Calc Estimated GFR POC Glucose 187 H 253 H 131 H Random Glucose Fasting Glucose Estimat Average Glucose Hemoglobin A1c % Calcium Total Bilirubin Direct Bilirubin AST ALT Alkaline Phosphatase Ammonia Total Protein Albumin Triglycerides Cholesterol LDL Cholesterol, Calc HDL Cholesterol Vitamin B12 Folate Beta-Hydroxybutyrate TSH Urine Color Urine Appearance Urine pH Ur Specific [place] Urine Protein Urine Glucose (UA) Urine Ketones Urine Blood Urine Nitrite Ur Leukocyte Esterase Urine RBC Urine WBC Ur Squamous Epith Cells Urine Bacteria Hyaline Casts Granular Casts Urine Yeast Stool Occult Blood Stl C. cayetanensis PCR Stool Rotavirus A PCR Stl Adenov F 40/41 PCR Stool Astrovirus (PCR) Stool Campylobacter PCR Stool Cryptosporidium PCR Stl Sh Tox Pr E STEC PCR Stool E coli O157 PCR Stl Enterotoxigenic E PCR Stool EPEC (PCR) Stool EAEC (PCR) Stl E. histolytica PCR Stool Giardia Lamblia PCR Stl P. shigelloides PCR Stool Salmonella PCR Stool Sapovirus (PCR) Stl Shigella/EIEC PCR St Y.enterocolitica PCR Stool Vibrio (PCR) Stl Vibrio cholerae PCR Stl Norovirus GI/GII PCR Valproic Acid C. difficile Tox B Gene C. difficile Toxin A&B C. difficile Interpret 12/21/23 12/21/23 12/21/23 11:17 16:05 19:55 WBC RBC Hgb Hct MCV MCH MCHC RDW Plt Count MPV Immature Gran % (Auto) Neut % (Auto) Lymph % (Auto) [place] % (Auto) Eos % (Auto) Baso % (Auto) Lymph # (Auto) [place] # (Auto) Eos # (Auto) Baso # (Auto) Abs Immat Gran (auto) Absolute Neuts (auto) Absolute Nucleated RBC Nucleated RBC % (auto) VBG pH VBG pCO2 VBG pO2 VBG HCO3 VBG O2 Saturation VBG Base Excess Sodium Potassium Chloride Carbon Dioxide Anion Gap BUN Creatinine Estim Creat Clear Calc Estimated GFR POC Glucose 234 H 155 H 209 H Random Glucose Fasting Glucose Estimat Average Glucose Hemoglobin A1c % Calcium Total Bilirubin Direct Bilirubin AST ALT Alkaline Phosphatase Ammonia Total Protein Albumin Triglycerides Cholesterol LDL Cholesterol, Calc HDL Cholesterol Vitamin B12 Folate Beta-Hydroxybutyrate TSH Urine Color Urine Appearance Urine pH Ur Specific [place] Urine Protein Urine Glucose (UA) Urine Ketones Urine Blood Urine Nitrite Ur Leukocyte Esterase Urine RBC Urine WBC Ur Squamous Epith Cells Urine Bacteria Hyaline Casts Granular Casts Urine Yeast Stool Occult Blood Stl C. cayetanensis PCR Stool Rotavirus A PCR Stl Adenov F PCR Stool Astrovirus (PCR) Stool Campylobacter PCR Stool Cryptosporidium PCR Stl Sh Tox Pr E STEC PCR Stool E coli O157 PCR Stl Enterotoxigenic E PCR Stool EPEC (PCR) Stool EAEC (PCR) Stl E. histolytica PCR Stool Giardia Lamblia PCR Stl P. shigelloides PCR Stool Salmonella PCR Stool Sapovirus (PCR) Stl Shigella/EIEC PCR St Y.enterocolitica PCR Stool Vibrio (PCR) Stl Vibrio cholerae PCR Stl Norovirus GI/GII PCR Valproic Acid C. difficile Tox B Gene C. difficile Toxin A&B C. difficile Interpret 12/22/23 12/22/23 12/22/23 06:35 11:29 16:31 WBC RBC Hgb Hct MCV MCH MCHC RDW Plt Count MPV Immature Gran % (Auto) Neut % (Auto) Lymph % (Auto) [place] % (Auto) Eos % (Auto) Baso % (Auto) Lymph # (Auto) [place] # (Auto) Eos # (Auto) Baso # (Auto) Abs Immat Gran (auto) Absolute Neuts (auto) Absolute Nucleated RBC Nucleated RBC % (auto) VBG pH VBG pCO2 VBG pO2 VBG HCO3 VBG O2 Saturation VBG Base Excess Sodium Potassium Chloride Carbon Dioxide Anion Gap BUN Creatinine Estim Creat Clear Calc Estimated GFR POC Glucose 131 H 224 H 194 H Random Glucose Fasting Glucose Estimat Average Glucose Hemoglobin A1c % Calcium Total Bilirubin Direct Bilirubin AST ALT Alkaline Phosphatase Ammonia Total Protein Albumin Triglycerides Cholesterol LDL Cholesterol, Calc HDL Cholesterol Vitamin B12 Folate Beta-Hydroxybutyrate TSH Urine Color Urine Appearance Urine pH Ur Specific [place] Urine Protein Urine Glucose (UA) Urine Ketones Urine Blood Urine Nitrite Ur Leukocyte Esterase Urine RBC Urine WBC Ur Squamous Epith Cells Urine Bacteria Hyaline Casts Granular Casts Urine Yeast Stool Occult Blood Stl C. cayetanensis PCR Stool Rotavirus A PCR Stl Adenov F PCR Stool Astrovirus (PCR) Stool Campylobacter PCR Stool Cryptosporidium PCR Stl Sh Tox Pr E STEC PCR Stool E coli O157 PCR Stl Enterotoxigenic E PCR Stool EPEC (PCR) Stool EAEC (PCR) Stl E. histolytica PCR Stool Giardia Lamblia PCR Stl P. shigelloides PCR Stool Salmonella PCR Stool Sapovirus (PCR) Stl Shigella/EIEC PCR St Y.enterocolitica PCR Stool Vibrio (PCR) Stl Vibrio cholerae PCR Stl Norovirus GI/GII PCR Valproic Acid C. difficile Tox B Gene C. difficile Toxin A&B C. difficile Interpret 12/22/23 12/23/23 12/23/23 19:59 05:19 11:21 WBC RBC Hgb Hct MCV MCH MCHC RDW Plt Count MPV Immature Gran % (Auto) Neut % (Auto) Lymph % (Auto) [place] % (Auto) Eos % (Auto) Baso % (Auto) Lymph # (Auto) [place] # (Auto) Eos # (Auto) Baso # (Auto) Abs Immat Gran (auto) Absolute Neuts (auto) Absolute Nucleated RBC Nucleated RBC % (auto) VBG pH VBG pCO2 VBG pO2 VBG HCO3 VBG O2 Saturation VBG Base Excess Sodium Potassium Chloride Carbon Dioxide Anion Gap BUN Creatinine Estim Creat Clear Calc Estimated GFR POC Glucose 255 H 121 H 124 H Random Glucose Fasting Glucose Estimat Average Glucose Hemoglobin A1c % Calcium Total Bilirubin Direct Bilirubin AST ALT Alkaline Phosphatase Ammonia Total Protein Albumin Triglycerides Cholesterol LDL Cholesterol, Calc HDL Cholesterol Vitamin B12 Folate Beta-Hydroxybutyrate TSH Urine Color Urine Appearance Urine pH Ur Specific [place] Urine Protein Urine Glucose (UA) Urine Ketones Urine Blood Urine Nitrite Ur Leukocyte Esterase Urine RBC Urine WBC Ur Squamous Epith Cells Urine Bacteria Hyaline Casts Granular Casts Urine Yeast Stool Occult Blood Stl C. cayetanensis PCR Stool Rotavirus A PCR Stl Adenov F 40/41 PCR Stool Astrovirus (PCR) Stool Campylobacter PCR Stool Cryptosporidium PCR Stl Sh Tox Pr E STEC PCR Stool E coli O157 PCR Stl Enterotoxigenic E PCR Stool EPEC (PCR) Stool EAEC (PCR) Stl E. histolytica PCR Stool Giardia Lamblia PCR Stl P. shigelloides PCR Stool Salmonella PCR Stool Sapovirus (PCR) Stl Shigella/EIEC PCR St Y.enterocolitica PCR Stool Vibrio (PCR) Stl Vibrio cholerae PCR Stl Norovirus GI/GII PCR Valproic Acid C. difficile Tox B Gene C. difficile Toxin A&B C. difficile Interpret 12/23/23 12/23/23 12/24/23 16:07 20:29 06:20 WBC RBC Hgb Hct MCV MCH MCHC RDW Plt Count MPV Immature Gran % (Auto) Neut % (Auto) Lymph % (Auto) [place] % (Auto) Eos % (Auto) Baso % (Auto) Lymph # (Auto) [place] # (Auto) Eos # (Auto) Baso # (Auto) Abs Immat Gran (auto) Absolute Neuts (auto) Absolute Nucleated RBC Nucleated RBC % (auto) VBG pH VBG pCO2 VBG pO2 VBG HCO3 VBG O2 Saturation VBG Base Excess Sodium Potassium Chloride Carbon Dioxide Anion Gap BUN Creatinine Estim Creat Clear Calc Estimated GFR POC Glucose 132 H 308 H 144 H Random Glucose Fasting Glucose Estimat Average Glucose Hemoglobin A1c % Calcium Total Bilirubin Direct Bilirubin AST ALT Alkaline Phosphatase Ammonia Total Protein Albumin Triglycerides Cholesterol LDL Cholesterol, Calc HDL Cholesterol Vitamin B12 Folate Beta-Hydroxybutyrate TSH Urine Color Urine Appearance Urine pH Ur Specific [place] Urine Protein Urine Glucose (UA) Urine Ketones Urine Blood Urine Nitrite Ur Leukocyte Esterase Urine RBC Urine WBC Ur Squamous Epith Cells Urine Bacteria Hyaline Casts Granular Casts Urine Yeast Stool Occult Blood Stl C. cayetanensis PCR Stool Rotavirus A PCR Stl Adenov F 40/41 PCR Stool Astrovirus (PCR) Stool Campylobacter PCR Stool Cryptosporidium PCR Stl Sh Tox Pr E STEC PCR Stool E coli O157 PCR Stl Enterotoxigenic E PCR Stool EPEC (PCR) Stool EAEC (PCR) Stl E. histolytica PCR Stool Giardia Lamblia PCR Stl P. shigelloides PCR Stool Salmonella PCR Stool Sapovirus (PCR) Stl Shigella/EIEC PCR St Y.enterocolitica PCR Stool Vibrio (PCR) Stl Vibrio cholerae PCR Stl Norovirus GI/GII PCR Valproic Acid C. difficile Tox B Gene C. difficile Toxin A&B C. difficile Interpret 12/24/23 12/24/23 12/24/23 07:46 11:28 16:25 WBC RBC Hgb Hct MCV MCH MCHC RDW Plt Count MPV Immature Gran % (Auto) Neut % (Auto) Lymph % (Auto) [place] % (Auto) Eos % (Auto) Baso % (Auto) Lymph # (Auto) [place] # (Auto) Eos # (Auto) Baso # (Auto) Abs Immat Gran (auto) Absolute Neuts (auto) Absolute Nucleated RBC Nucleated RBC % (auto) VBG pH VBG pCO2 VBG pO2 VBG HCO3 VBG O2 Saturation VBG Base Excess Sodium Potassium Chloride Carbon Dioxide Anion Gap BUN Creatinine Estim Creat Clear Calc Estimated GFR POC Glucose 141 H 437 H* 155 H Random Glucose Fasting Glucose Estimat Average Glucose Hemoglobin A1c % Calcium Total Bilirubin Direct Bilirubin AST ALT Alkaline Phosphatase Ammonia Total Protein Albumin Triglycerides Cholesterol LDL Cholesterol, Calc HDL Cholesterol Vitamin B12 Folate Beta-Hydroxybutyrate TSH Urine Color Urine Appearance Urine pH Ur Specific [place] Urine Protein Urine Glucose (UA) Urine Ketones Urine Blood Urine Nitrite Ur Leukocyte Esterase Urine RBC Urine WBC Ur Squamous Epith Cells Urine Bacteria Hyaline Casts Granular Casts Urine Yeast Stool Occult Blood Stl C. cayetanensis PCR Stool Rotavirus A PCR Stl Adenov F 40/41 PCR Stool Astrovirus (PCR) Stool Campylobacter PCR Stool Cryptosporidium PCR Stl Sh Tox Pr E STEC PCR Stool E coli O157 PCR Stl Enterotoxigenic E PCR Stool EPEC (PCR) Stool EAEC (PCR) Stl E. histolytica PCR Stool Giardia Lamblia PCR Stl P. shigelloides PCR Stool Salmonella PCR Stool Sapovirus (PCR) Stl Shigella/EIEC PCR St Y.enterocolitica PCR Stool Vibrio (PCR) Stl Vibrio cholerae PCR Stl Norovirus GI/GII PCR Valproic Acid C. difficile Tox B Gene C. difficile Toxin A&B C. difficile Interpret 12/24/23 12/25/23 12/25/23 20:04 06:11 11:37 WBC RBC Hgb Hct MCV MCH MCHC RDW Plt Count MPV Immature Gran % (Auto) Neut % (Auto) Lymph % (Auto) [place] % (Auto) Eos % (Auto) Baso % (Auto) Lymph # (Auto) [place] # (Auto) Eos # (Auto) Baso # (Auto) Abs Immat Gran (auto) Absolute Neuts (auto) Absolute Nucleated RBC Nucleated RBC % (auto) VBG pH VBG pCO2 VBG pO2 VBG HCO3 VBG O2 Saturation VBG Base Excess Sodium Potassium Chloride Carbon Dioxide Anion Gap BUN Creatinine Estim Creat Clear Calc Estimated GFR POC Glucose 299 H 171 H 244 H Random Glucose Fasting Glucose Estimat Average Glucose Hemoglobin A1c % Calcium Total Bilirubin Direct Bilirubin AST ALT Alkaline Phosphatase Ammonia Total Protein Albumin Triglycerides Cholesterol LDL Cholesterol, Calc HDL Cholesterol Vitamin B12 Folate Beta-Hydroxybutyrate TSH Urine Color Urine Appearance Urine pH Ur Specific [place] Urine Protein Urine Glucose (UA) Urine Ketones Urine Blood Urine Nitrite Ur Leukocyte Esterase Urine RBC Urine WBC Ur Squamous Epith Cells Urine Bacteria Hyaline Casts Granular Casts Urine Yeast Stool Occult Blood Stl C. cayetanensis PCR Stool Rotavirus A PCR Stl Adenov PCR Stool Astrovirus (PCR) Stool Campylobacter PCR Stool Cryptosporidium PCR Stl Sh Tox Pr E STEC PCR Stool E coli O157 PCR Stl Enterotoxigenic E PCR Stool EPEC (PCR) Stool EAEC (PCR) Stl E. histolytica PCR Stool Giardia Lamblia PCR Stl P. shigelloides PCR Stool Salmonella PCR Stool Sapovirus (PCR) Stl Shigella/EIEC PCR St Y.enterocolitica PCR Stool Vibrio (PCR) Stl Vibrio cholerae PCR Stl Norovirus GI/GII PCR Valproic Acid C. difficile Tox B Gene C. difficile Toxin A&B C. difficile Interpret 12/25/23 12/25/23 12/26/23 16:27 19:53 06:50 WBC RBC Hgb Hct MCV MCH MCHC RDW Plt Count MPV Immature Gran % (Auto) Neut % (Auto) Lymph % (Auto) [place] % (Auto) Eos % (Auto) Baso % (Auto) Lymph # (Auto) [place] # (Auto) Eos # (Auto) Baso # (Auto) Abs Immat Gran (auto) Absolute Neuts (auto) Absolute Nucleated RBC Nucleated RBC % (auto) VBG pH VBG pCO2 VBG pO2 VBG HCO3 VBG O2 Saturation VBG Base Excess Sodium Potassium Chloride Carbon Dioxide Anion Gap BUN Creatinine Estim Creat Clear Calc Estimated GFR POC Glucose 213 H 264 H 184 H Random Glucose Fasting Glucose Estimat Average Glucose Hemoglobin A1c % Calcium Total Bilirubin Direct Bilirubin AST ALT Alkaline Phosphatase Ammonia Total Protein Albumin Triglycerides Cholesterol LDL Cholesterol, Calc HDL Cholesterol Vitamin B12 Folate Beta-Hydroxybutyrate TSH Urine Color Urine Appearance Urine pH Ur Specific [place] Urine Protein Urine Glucose (UA) Urine Ketones Urine Blood Urine Nitrite Ur Leukocyte Esterase Urine RBC Urine WBC Ur Squamous Epith Cells Urine Bacteria Hyaline Casts Granular Casts Urine Yeast Stool Occult Blood Stl C. cayetanensis PCR Stool Rotavirus A PCR Stl Adenov PCR Stool Astrovirus (PCR) Stool Campylobacter PCR Stool Cryptosporidium PCR Stl Sh Tox Pr E STEC PCR Stool E coli O157 PCR Stl Enterotoxigenic E PCR Stool EPEC (PCR) Stool EAEC (PCR) Stl E. histolytica PCR Stool Giardia Lamblia PCR Stl P. shigelloides PCR Stool Salmonella PCR Stool Sapovirus (PCR) Stl Shigella/EIEC PCR St Y.enterocolitica PCR Stool Vibrio (PCR) Stl Vibrio cholerae PCR Stl Norovirus GI/GII PCR Valproic Acid C. difficile Tox B Gene C. difficile Toxin A&B C. difficile Interpret 12/26/23 12/26/23 12/26/23 11:36 16:27 19:55 WBC RBC Hgb Hct MCV MCH MCHC RDW Plt Count MPV Immature Gran % (Auto) Neut % (Auto) Lymph % (Auto) [place] % (Auto) Eos % (Auto) Baso % (Auto) Lymph # (Auto) [place] # (Auto) Eos # (Auto) Baso # (Auto) Abs Immat Gran (auto) Absolute Neuts (auto) Absolute Nucleated RBC Nucleated RBC % (auto) VBG pH VBG pCO2 VBG pO2 VBG HCO3 VBG O2 Saturation VBG Base Excess Sodium Potassium Chloride Carbon Dioxide Anion Gap BUN Creatinine Estim Creat Clear Calc Estimated GFR POC Glucose 407 H* 343 H 265 H Random Glucose Fasting Glucose Estimat Average Glucose Hemoglobin A1c % Calcium Total Bilirubin Direct Bilirubin AST ALT Alkaline Phosphatase Ammonia Total Protein Albumin Triglycerides Cholesterol LDL Cholesterol, Calc HDL Cholesterol Vitamin B12 Folate Beta-Hydroxybutyrate TSH Urine Color Urine Appearance Urine pH Ur Specific [place] Urine Protein Urine Glucose (UA) Urine Ketones Urine Blood Urine Nitrite Ur Leukocyte Esterase Urine RBC Urine WBC Ur Squamous Epith Cells Urine Bacteria Hyaline Casts Granular Casts Urine Yeast Stool Occult Blood Stl C. cayetanensis PCR Stool Rotavirus A PCR Stl Adenov F 40/41 PCR Stool Astrovirus (PCR) Stool Campylobacter PCR Stool Cryptosporidium PCR Stl Sh Tox Pr E STEC PCR Stool E coli O157 PCR Stl Enterotoxigenic E PCR Stool EPEC (PCR) Stool EAEC (PCR) Stl E. histolytica PCR Stool Giardia Lamblia PCR Stl P. shigelloides PCR Stool Salmonella PCR Stool Sapovirus (PCR) Stl Shigella/EIEC PCR St Y.enterocolitica PCR Stool Vibrio (PCR) Stl Vibrio cholerae PCR Stl Norovirus GI/GII PCR Valproic Acid C. difficile Tox B Gene C. difficile Toxin A&B C. difficile Interpret 12/27/23 12/27/23 12/27/23 06:00 11:30 16:28 WBC RBC Hgb Hct MCV MCH MCHC RDW Plt Count MPV Immature Gran % (Auto) Neut % (Auto) Lymph % (Auto) [place] % (Auto) Eos % (Auto) Baso % (Auto) Lymph # (Auto) [place] # (Auto) Eos # (Auto) Baso # (Auto) Abs Immat Gran (auto) Absolute Neuts (auto) Absolute Nucleated RBC Nucleated RBC % (auto) VBG pH VBG pCO2 VBG pO2 VBG HCO3 VBG O2 Saturation VBG Base Excess Sodium Potassium Chloride Carbon Dioxide Anion Gap BUN Creatinine Estim Creat Clear Calc Estimated GFR POC Glucose 158 H 391 H* 489 H* Random Glucose Fasting Glucose Estimat Average Glucose Hemoglobin A1c % Calcium Total Bilirubin Direct Bilirubin AST ALT Alkaline Phosphatase Ammonia Total Protein Albumin Triglycerides Cholesterol LDL Cholesterol, Calc HDL Cholesterol Vitamin B12 Folate Beta-Hydroxybutyrate TSH Urine Color Urine Appearance Urine pH Ur Specific [place] Urine Protein Urine Glucose (UA) Urine Ketones Urine Blood Urine Nitrite Ur Leukocyte Esterase Urine RBC Urine WBC Ur Squamous Epith Cells Urine Bacteria Hyaline Casts Granular Casts Urine Yeast Stool Occult Blood Stl C. cayetanensis PCR Stool Rotavirus A PCR Stl Adenov F 40/41 PCR Stool Astrovirus (PCR) Stool Campylobacter PCR Stool Cryptosporidium PCR Stl Sh Tox Pr E STEC PCR Stool E coli O157 PCR Stl Enterotoxigenic E PCR Stool EPEC (PCR) Stool EAEC (PCR) Stl E. histolytica PCR Stool Giardia Lamblia PCR Stl P. shigelloides PCR Stool Salmonella PCR Stool Sapovirus (PCR) Stl Shigella/EIEC PCR St Y.enterocolitica PCR Stool Vibrio (PCR) Stl Vibrio cholerae PCR Stl Norovirus GI/GII PCR Valproic Acid C. difficile Tox B Gene C. difficile Toxin A&B C. difficile Interpret 12/27/23 12/28/23 12/28/23 19:55 06:35 11:18 WBC RBC Hgb Hct MCV MCH MCHC RDW Plt Count MPV Immature Gran % (Auto) Neut % (Auto) Lymph % (Auto) [place] % (Auto) Eos % (Auto) Baso % (Auto) Lymph # (Auto) [place] # (Auto) Eos # (Auto) Baso # (Auto) Abs Immat Gran (auto) Absolute Neuts (auto) Absolute Nucleated RBC Nucleated RBC % (auto) VBG pH VBG pCO2 VBG pO2 VBG HCO3 VBG O2 Saturation VBG Base Excess Sodium Potassium Chloride Carbon Dioxide Anion Gap BUN Creatinine Estim Creat Clear Calc Estimated GFR POC Glucose 400 H* 234 H 184 H Random Glucose Fasting Glucose Estimat Average Glucose Hemoglobin A1c % Calcium Total Bilirubin Direct Bilirubin AST ALT Alkaline Phosphatase Ammonia Total Protein Albumin Triglycerides Cholesterol LDL Cholesterol, Calc HDL Cholesterol Vitamin B12 Folate Beta-Hydroxybutyrate TSH Urine Color Urine Appearance Urine pH Ur Specific [place] Urine Protein Urine Glucose (UA) Urine Ketones Urine Blood Urine Nitrite Ur Leukocyte Esterase Urine RBC Urine WBC Ur Squamous Epith Cells Urine Bacteria Hyaline Casts Granular Casts Urine Yeast Stool Occult Blood Stl C. cayetanensis PCR Stool Rotavirus A PCR Stl Adenov F 40/41 PCR Stool Astrovirus (PCR) Stool Campylobacter PCR Stool Cryptosporidium PCR Stl Sh Tox Pr E STEC PCR Stool E coli O157 PCR Stl Enterotoxigenic E PCR Stool EPEC (PCR) Stool EAEC (PCR) Stl E. histolytica PCR Stool Giardia Lamblia PCR Stl P. shigelloides PCR Stool Salmonella PCR Stool Sapovirus (PCR) Stl Shigella/EIEC PCR St Y.enterocolitica PCR Stool Vibrio (PCR) Stl Vibrio cholerae PCR Stl Norovirus GI/GII PCR Valproic Acid C. difficile Tox B Gene C. difficile Toxin A&B C. difficile Interpret 12/28/23 12/28/23 12/28/23 16:02 20:21 22:14 WBC RBC Hgb Hct MCV MCH MCHC RDW Plt Count MPV Immature Gran % (Auto) Neut % (Auto) Lymph % (Auto) [place] % (Auto) Eos % (Auto) Baso % (Auto) Lymph # (Auto) [place] # (Auto) Eos # (Auto) Baso # (Auto) Abs Immat Gran (auto) Absolute Neuts (auto) Absolute Nucleated RBC Nucleated RBC % (auto) VBG pH VBG pCO2 VBG pO2 VBG HCO3 VBG O2 Saturation VBG Base Excess Sodium Potassium Chloride Carbon Dioxide Anion Gap BUN Creatinine Estim Creat Clear Calc Estimated GFR POC Glucose 148 H 369 H* 403 H* Random Glucose Fasting Glucose Estimat Average Glucose Hemoglobin A1c % Calcium Total Bilirubin Direct Bilirubin AST ALT Alkaline Phosphatase Ammonia Total Protein Albumin Triglycerides Cholesterol LDL Cholesterol, Calc HDL Cholesterol Vitamin B12 Folate Beta-Hydroxybutyrate TSH Urine Color Urine Appearance Urine pH Ur Specific [place] Urine Protein Urine Glucose (UA) Urine Ketones Urine Blood Urine Nitrite Ur Leukocyte Esterase Urine RBC Urine WBC Ur Squamous Epith Cells Urine Bacteria Hyaline Casts Granular Casts Urine Yeast Stool Occult Blood Stl C. cayetanensis PCR Stool Rotavirus A PCR Stl Adenov F 40/ PCR Stool Astrovirus (PCR) Stool Campylobacter PCR Stool Cryptosporidium PCR Stl Sh Tox Pr E STEC PCR Stool E coli O157 PCR Stl Enterotoxigenic E PCR Stool EPEC (PCR) Stool EAEC (PCR) Stl E. histolytica PCR Stool Giardia Lamblia PCR Stl P. shigelloides PCR Stool Salmonella PCR Stool Sapovirus (PCR) Stl Shigella/EIEC PCR St Y.enterocolitica PCR Stool Vibrio (PCR) Stl Vibrio cholerae PCR Stl Norovirus GI/GII PCR Valproic Acid C. difficile Tox B Gene C. difficile Toxin A&B C. difficile Interpret 12/29/23 12/29/23 12/29/23 05:58 11:08 11:58 WBC 3.5 L RBC 3.56 L Hgb 9.9 L Hct 30.9 L MCV 86.8 MCH 27.8 MCHC 32.0 RDW 14.6 Plt Count 75 L MPV 10.4 Immature Gran % (Auto) 0.6 H Neut % (Auto) 70.1 Lymph % (Auto) 20.3 [place] % (Auto) 7.5 Eos % (Auto) 1.2 Baso % (Auto) 0.3 Lymph # (Auto) 0.7 L [place] # (Auto) 0.3 Eos # (Auto) 0.0 Baso # (Auto) 0.0 Abs Immat Gran (auto) 0.02 Absolute Neuts (auto) 2.4 Absolute Nucleated RBC 0.000 Nucleated RBC % (auto) 0.0 VBG pH VBG pCO2 VBG pO2 VBG HCO3 VBG O2 Saturation VBG Base Excess Sodium 137 Potassium 4.8 Chloride 100 Carbon Dioxide 28 Anion Gap 14 BUN 40 H Creatinine 0.91 Estim Creat Clear Calc 36.4 Estimated GFR > 60 POC Glucose 168 H 300 H Random Glucose 364 H* Fasting Glucose Estimat Average Glucose Hemoglobin A1c % Calcium 10.1 Total Bilirubin 0.3 Direct Bilirubin AST 52 H ALT 47 H Alkaline Phosphatase 195 H Ammonia Total Protein 8.6 H Albumin 3.4 L Triglycerides Cholesterol LDL Cholesterol, Calc HDL Cholesterol Vitamin B12 Folate Beta-Hydroxybutyrate TSH Urine Color Urine Appearance Urine pH Ur Specific [place] Urine Protein Urine Glucose (UA) Urine Ketones Urine Blood Urine Nitrite Ur Leukocyte Esterase Urine RBC Urine WBC Ur Squamous Epith Cells Urine Bacteria Hyaline Casts Granular Casts Urine Yeast Stool Occult Blood Stl C. cayetanensis PCR Stool Rotavirus A PCR Stl Adenov F PCR Stool Astrovirus (PCR) Stool Campylobacter PCR Stool Cryptosporidium PCR Stl Sh Tox Pr E STEC PCR Stool E coli O157 PCR Stl Enterotoxigenic E PCR Stool EPEC (PCR) Stool EAEC (PCR) Stl E. histolytica PCR Stool Giardia Lamblia PCR Stl P. shigelloides PCR Stool Salmonella PCR Stool Sapovirus (PCR) Stl Shigella/EIEC PCR St Y.enterocolitica PCR Stool Vibrio (PCR) Stl Vibrio cholerae PCR Stl Norovirus GI/GII PCR Valproic Acid C. difficile Tox B Gene C. difficile Toxin A&B C. difficile Interpret 12/29/23 12/29/23 12/29/23 16:31 17:30 19:53 WBC RBC Hgb Hct MCV MCH MCHC RDW Plt Count MPV Immature Gran % (Auto) Neut % (Auto) Lymph % (Auto) [place] % (Auto) Eos % (Auto) Baso % (Auto) Lymph # (Auto) [place] # (Auto) Eos # (Auto) Baso # (Auto) Abs Immat Gran (auto) Absolute Neuts (auto) Absolute Nucleated RBC Nucleated RBC % (auto) VBG pH VBG pCO2 VBG pO2 VBG HCO3 VBG O2 Saturation VBG Base Excess Sodium Potassium Chloride Carbon Dioxide Anion Gap BUN Creatinine Estim Creat Clear Calc Estimated GFR POC Glucose 285 H 242 H Random Glucose Fasting Glucose Estimat Average Glucose Hemoglobin A1c % Calcium Total Bilirubin Direct Bilirubin AST ALT Alkaline Phosphatase Ammonia Total Protein Albumin Triglycerides Cholesterol LDL Cholesterol, Calc HDL Cholesterol Vitamin B12 Folate Beta-Hydroxybutyrate TSH Urine Color Yellow Urine Appearance Cloudy Urine pH 7.5 Ur Specific [place] 1.020 Urine Protein Trace Urine Glucose (UA) Negative Urine Ketones Negative Urine Blood Trace H Urine Nitrite Positive H Ur Leukocyte Esterase Large (3+) H Urine RBC 0-2 Urine WBC 21-50 Ur Squamous Epith Cells 0-2 Urine Bacteria 3+ Hyaline Casts 0-2 Granular Casts Urine Yeast Stool Occult Blood Stl C. cayetanensis PCR Stool Rotavirus A PCR Stl Adenov PCR Stool Astrovirus (PCR) Stool Campylobacter PCR Stool Cryptosporidium PCR Stl Sh Tox Pr E STEC PCR Stool E coli O157 PCR Stl Enterotoxigenic E PCR Stool EPEC (PCR) Stool EAEC (PCR) Stl E. histolytica PCR Stool Giardia Lamblia PCR Stl P. shigelloides PCR Stool Salmonella PCR Stool Sapovirus (PCR) Stl Shigella/EIEC PCR St Y.enterocolitica PCR Stool Vibrio (PCR) Stl Vibrio cholerae PCR Stl Norovirus GI/GII PCR Valproic Acid C. difficile Tox B Gene C. difficile Toxin A&B C. difficile Interpret 12/30/23 12/30/23 12/30/23 07:09 11:03 16:34 WBC RBC Hgb Hct MCV MCH MCHC RDW Plt Count MPV Immature Gran % (Auto) Neut % (Auto) Lymph % (Auto) [place] % (Auto) Eos % (Auto) Baso % (Auto) Lymph # (Auto) [place] # (Auto) Eos # (Auto) Baso # (Auto) Abs Immat Gran (auto) Absolute Neuts (auto) Absolute Nucleated RBC Nucleated RBC % (auto) VBG pH VBG pCO2 VBG pO2 VBG HCO3 VBG O2 Saturation VBG Base Excess Sodium Potassium Chloride Carbon Dioxide Anion Gap BUN Creatinine Estim Creat Clear Calc Estimated GFR POC Glucose 112 331 H 459 H* Random Glucose Fasting Glucose Estimat Average Glucose Hemoglobin A1c % Calcium Total Bilirubin Direct Bilirubin AST ALT Alkaline Phosphatase Ammonia Total Protein Albumin Triglycerides Cholesterol LDL Cholesterol, Calc HDL Cholesterol Vitamin B12 Folate Beta-Hydroxybutyrate TSH Urine Color Urine Appearance Urine pH Ur Specific [place] Urine Protein Urine Glucose (UA) Urine Ketones Urine Blood Urine Nitrite Ur Leukocyte Esterase Urine RBC Urine WBC Ur Squamous Epith Cells Urine Bacteria Hyaline Casts Granular Casts Urine Yeast Stool Occult Blood Stl C. cayetanensis PCR Stool Rotavirus A PCR Stl Adenov F 40/41 PCR Stool Astrovirus (PCR) Stool Campylobacter PCR Stool Cryptosporidium PCR Stl Sh Tox Pr E STEC PCR Stool E coli O157 PCR Stl Enterotoxigenic E PCR Stool EPEC (PCR) Stool EAEC (PCR) Stl E. histolytica PCR Stool Giardia Lamblia PCR Stl P. shigelloides PCR Stool Salmonella PCR Stool Sapovirus (PCR) Stl Shigella/EIEC PCR St Y.enterocolitica PCR Stool Vibrio (PCR) Stl Vibrio cholerae PCR Stl Norovirus GI/GII PCR Valproic Acid C. difficile Tox B Gene C. difficile Toxin A&B C. difficile Interpret 12/30/23 12/31/23 12/31/23 19:41 06:31 11:29 WBC RBC Hgb Hct MCV MCH MCHC RDW Plt Count MPV Immature Gran % (Auto) Neut % (Auto) Lymph % (Auto) [place] % (Auto) Eos % (Auto) Baso % (Auto) Lymph # (Auto) [place] # (Auto) Eos # (Auto) Baso # (Auto) Abs Immat Gran (auto) Absolute Neuts (auto) Absolute Nucleated RBC Nucleated RBC % (auto) VBG pH VBG pCO2 VBG pO2 VBG HCO3 VBG O2 Saturation VBG Base Excess Sodium Potassium Chloride Carbon Dioxide Anion Gap BUN Creatinine Estim Creat Clear Calc Estimated GFR POC Glucose 424 H* 232 H 349 H Random Glucose Fasting Glucose Estimat Average Glucose Hemoglobin A1c % Calcium Total Bilirubin Direct Bilirubin AST ALT Alkaline Phosphatase Ammonia Total Protein Albumin Triglycerides Cholesterol LDL Cholesterol, Calc HDL Cholesterol Vitamin B12 Folate Beta-Hydroxybutyrate TSH Urine Color Urine Appearance Urine pH Ur Specific [place] Urine Protein Urine Glucose (UA) Urine Ketones Urine Blood Urine Nitrite Ur Leukocyte Esterase Urine RBC Urine WBC Ur Squamous Epith Cells Urine Bacteria Hyaline Casts Granular Casts Urine Yeast Stool Occult Blood Stl C. cayetanensis PCR Stool Rotavirus A PCR Stl Adenov F 40/41 PCR Stool Astrovirus (PCR) Stool Campylobacter PCR Stool Cryptosporidium PCR Stl Sh Tox Pr E STEC PCR Stool E coli O157 PCR Stl Enterotoxigenic E PCR Stool EPEC (PCR) Stool EAEC (PCR) Stl E. histolytica PCR Stool Giardia Lamblia PCR Stl P. shigelloides PCR Stool Salmonella PCR Stool Sapovirus (PCR) Stl Shigella/EIEC PCR St Y.enterocolitica PCR Stool Vibrio (PCR) Stl Vibrio cholerae PCR Stl Norovirus GI/GII PCR Valproic Acid C. difficile Tox B Gene C. difficile Toxin A&B C. difficile Interpret 12/31/23 12/31/23 01/01/24 16:27 19:46 05:33 WBC RBC Hgb Hct MCV MCH MCHC RDW Plt Count MPV Immature Gran % (Auto) Neut % (Auto) Lymph % (Auto) [place] % (Auto) Eos % (Auto) Baso % (Auto) Lymph # (Auto) [place] # (Auto) Eos # (Auto) Baso # (Auto) Abs Immat Gran (auto) Absolute Neuts (auto) Absolute Nucleated RBC Nucleated RBC % (auto) VBG pH VBG pCO2 VBG pO2 VBG HCO3 VBG O2 Saturation VBG Base Excess Sodium Potassium Chloride Carbon Dioxide Anion Gap BUN Creatinine Estim Creat Clear Calc Estimated GFR POC Glucose 345 H 385 H* 207 H Random Glucose Fasting Glucose Estimat Average Glucose Hemoglobin A1c % Calcium Total Bilirubin Direct Bilirubin AST ALT Alkaline Phosphatase Ammonia Total Protein Albumin Triglycerides Cholesterol LDL Cholesterol, Calc HDL Cholesterol Vitamin B12 Folate Beta-Hydroxybutyrate TSH Urine Color Urine Appearance Urine pH Ur Specific [place] Urine Protein Urine Glucose (UA) Urine Ketones Urine Blood Urine Nitrite Ur Leukocyte Esterase Urine RBC Urine WBC Ur Squamous Epith Cells Urine Bacteria Hyaline Casts Granular Casts Urine Yeast Stool Occult Blood Stl C. cayetanensis PCR Stool Rotavirus A PCR Stl Adenov F 40/41 PCR Stool Astrovirus (PCR) Stool Campylobacter PCR Stool Cryptosporidium PCR Stl Sh Tox Pr E STEC PCR Stool E coli O157 PCR Stl Enterotoxigenic E PCR Stool EPEC (PCR) Stool EAEC (PCR) Stl E. histolytica PCR Stool Giardia Lamblia PCR Stl P. shigelloides PCR Stool Salmonella PCR Stool Sapovirus (PCR) Stl Shigella/EIEC PCR St Y.enterocolitica PCR Stool Vibrio (PCR) Stl Vibrio cholerae PCR Stl Norovirus GI/GII PCR Valproic Acid C. difficile Tox B Gene C. difficile Toxin A&B C. difficile Interpret 01/01/24 01/01/24 01/01/24 12:59 13:55 15:35 WBC RBC Hgb Hct MCV MCH MCHC RDW Plt Count MPV Immature Gran % (Auto) Neut % (Auto) Lymph % (Auto) [place] % (Auto) Eos % (Auto) Baso % (Auto) Lymph # (Auto) [place] # (Auto) Eos # (Auto) Baso # (Auto) Abs Immat Gran (auto) Absolute Neuts (auto) Absolute Nucleated RBC Nucleated RBC % (auto) VBG pH VBG pCO2 VBG pO2 VBG HCO3 VBG O2 Saturation VBG Base Excess Sodium Potassium Chloride Carbon Dioxide Anion Gap BUN Creatinine Estim Creat Clear Calc Estimated GFR POC Glucose 505 H* 443 H* 384 H* Random Glucose Fasting Glucose Estimat Average Glucose Hemoglobin A1c % Calcium Total Bilirubin Direct Bilirubin AST ALT Alkaline Phosphatase Ammonia Total Protein Albumin Triglycerides Cholesterol LDL Cholesterol, Calc HDL Cholesterol Vitamin B12 Folate Beta-Hydroxybutyrate TSH Urine Color Urine Appearance Urine pH Ur Specific [place] Urine Protein Urine Glucose (UA) Urine Ketones Urine Blood Urine Nitrite Ur Leukocyte Esterase Urine RBC Urine WBC Ur Squamous Epith Cells Urine Bacteria Hyaline Casts Granular Casts Urine Yeast Stool Occult Blood Stl C. cayetanensis PCR Stool Rotavirus A PCR Stl Adenov F PCR Stool Astrovirus (PCR) Stool Campylobacter PCR Stool Cryptosporidium PCR Stl Sh Tox Pr E STEC PCR Stool E coli O157 PCR Stl Enterotoxigenic E PCR Stool EPEC (PCR) Stool EAEC (PCR) Stl E. histolytica PCR Stool Giardia Lamblia PCR Stl P. shigelloides PCR Stool Salmonella PCR Stool Sapovirus (PCR) Stl Shigella/EIEC PCR St Y.enterocolitica PCR Stool Vibrio (PCR) Stl Vibrio cholerae PCR Stl Norovirus GI/GII PCR Valproic Acid C. difficile Tox B Gene C. difficile Toxin A&B C. difficile Interpret 01/01/24 01/01/24 01/02/24 16:36 19:44 06:38 WBC RBC Hgb Hct MCV MCH MCHC RDW Plt Count MPV Immature Gran % (Auto) Neut % (Auto) Lymph % (Auto) [place] % (Auto) Eos % (Auto) Baso % (Auto) Lymph # (Auto) [place] # (Auto) Eos # (Auto) Baso # (Auto) Abs Immat Gran (auto) Absolute Neuts (auto) Absolute Nucleated RBC Nucleated RBC % (auto) VBG pH VBG pCO2 VBG pO2 VBG HCO3 VBG O2 Saturation VBG Base Excess Sodium Potassium Chloride Carbon Dioxide Anion Gap BUN Creatinine Estim Creat Clear Calc Estimated GFR POC Glucose 353 H* 332 H 234 H Random Glucose Fasting Glucose Estimat Average Glucose Hemoglobin A1c % Calcium Total Bilirubin Direct Bilirubin AST ALT Alkaline Phosphatase Ammonia Total Protein Albumin Triglycerides Cholesterol LDL Cholesterol, Calc HDL Cholesterol Vitamin B12 Folate Beta-Hydroxybutyrate TSH Urine Color Urine Appearance Urine pH Ur Specific [place] Urine Protein Urine Glucose (UA) Urine Ketones Urine Blood Urine Nitrite Ur Leukocyte Esterase Urine RBC Urine WBC Ur Squamous Epith Cells Urine Bacteria Hyaline Casts Granular Casts Urine Yeast Stool Occult Blood Stl C. cayetanensis PCR Stool Rotavirus A PCR Stl Adenov F PCR Stool Astrovirus (PCR) Stool Campylobacter PCR Stool Cryptosporidium PCR Stl Sh Tox Pr E STEC PCR Stool E coli O157 PCR Stl Enterotoxigenic E PCR Stool EPEC (PCR) Stool EAEC (PCR) Stl E. histolytica PCR Stool Giardia Lamblia PCR Stl P. shigelloides PCR Stool Salmonella PCR Stool Sapovirus (PCR) Stl Shigella/EIEC PCR St Y.enterocolitica PCR Stool Vibrio (PCR) Stl Vibrio cholerae PCR Stl Norovirus GI/GII PCR Valproic Acid C. difficile Tox B Gene C. difficile Toxin A&B C. difficile Interpret 01/02/24 01/02/24 01/02/24 11:01 16:21 19:50 WBC RBC Hgb Hct MCV MCH MCHC RDW Plt Count MPV Immature Gran % (Auto) Neut % (Auto) Lymph % (Auto) [place] % (Auto) Eos % (Auto) Baso % (Auto) Lymph # (Auto) [place] # (Auto) Eos # (Auto) Baso # (Auto) Abs Immat Gran (auto) Absolute Neuts (auto) Absolute Nucleated RBC Nucleated RBC % (auto) VBG pH VBG pCO2 VBG pO2 VBG HCO3 VBG O2 Saturation VBG Base Excess Sodium Potassium Chloride Carbon Dioxide Anion Gap BUN Creatinine Estim Creat Clear Calc Estimated GFR POC Glucose 223 H 337 H 389 H* Random Glucose Fasting Glucose Estimat Average Glucose Hemoglobin A1c % Calcium Total Bilirubin Direct Bilirubin AST ALT Alkaline Phosphatase Ammonia Total Protein Albumin Triglycerides Cholesterol LDL Cholesterol, Calc HDL Cholesterol Vitamin B12 Folate Beta-Hydroxybutyrate TSH Urine Color Urine Appearance Urine pH Ur Specific [place] Urine Protein Urine Glucose (UA) Urine Ketones Urine Blood Urine Nitrite Ur Leukocyte Esterase Urine RBC Urine WBC Ur Squamous Epith Cells Urine Bacteria Hyaline Casts Granular Casts Urine Yeast Stool Occult Blood Stl C. cayetanensis PCR Stool Rotavirus A PCR Stl Adenov F 40/41 PCR Stool Astrovirus (PCR) Stool Campylobacter PCR Stool Cryptosporidium PCR Stl Sh Tox Pr E STEC PCR Stool E coli O157 PCR Stl Enterotoxigenic E PCR Stool EPEC (PCR) Stool EAEC (PCR) Stl E. histolytica PCR Stool Giardia Lamblia PCR Stl P. shigelloides PCR Stool Salmonella PCR Stool Sapovirus (PCR) Stl Shigella/EIEC PCR St Y.enterocolitica PCR Stool Vibrio (PCR) Stl Vibrio cholerae PCR Stl Norovirus GI/GII PCR Valproic Acid C. difficile Tox B Gene C. difficile Toxin A&B C. difficile Interpret 01/03/24 01/03/24 01/03/24 06:43 10:58 16:42 WBC RBC Hgb Hct MCV MCH MCHC RDW Plt Count MPV Immature Gran % (Auto) Neut % (Auto) Lymph % (Auto) [place] % (Auto) Eos % (Auto) Baso % (Auto) Lymph # (Auto) [place] # (Auto) Eos # (Auto) Baso # (Auto) Abs Immat Gran (auto) Absolute Neuts (auto) Absolute Nucleated RBC Nucleated RBC % (auto) VBG pH VBG pCO2 VBG pO2 VBG HCO3 VBG O2 Saturation VBG Base Excess Sodium Potassium Chloride Carbon Dioxide Anion Gap BUN Creatinine Estim Creat Clear Calc Estimated GFR POC Glucose 203 H 237 H 438 H* Random Glucose Fasting Glucose Estimat Average Glucose Hemoglobin A1c % Calcium Total Bilirubin Direct Bilirubin AST ALT Alkaline Phosphatase Ammonia Total Protein Albumin Triglycerides Cholesterol LDL Cholesterol, Calc HDL Cholesterol Vitamin B12 Folate Beta-Hydroxybutyrate TSH Urine Color Urine Appearance Urine pH Ur Specific [place] Urine Protein Urine Glucose (UA) Urine Ketones Urine Blood Urine Nitrite Ur Leukocyte Esterase Urine RBC Urine WBC Ur Squamous Epith Cells Urine Bacteria Hyaline Casts Granular Casts Urine Yeast Stool Occult Blood Stl C. cayetanensis PCR Stool Rotavirus A PCR Stl Adenov F 40/41 PCR Stool Astrovirus (PCR) Stool Campylobacter PCR Stool Cryptosporidium PCR Stl Sh Tox Pr E STEC PCR Stool E coli O157 PCR Stl Enterotoxigenic E PCR Stool EPEC (PCR) Stool EAEC (PCR) Stl E. histolytica PCR Stool Giardia Lamblia PCR Stl P. shigelloides PCR Stool Salmonella PCR Stool Sapovirus (PCR) Stl Shigella/EIEC PCR St Y.enterocolitica PCR Stool Vibrio (PCR) Stl Vibrio cholerae PCR Stl Norovirus GI/GII PCR Valproic Acid C. difficile Tox B Gene C. difficile Toxin A&B C. difficile Interpret 01/03/24 01/03/24 01/04/24 18:39 19:54 06:52 WBC RBC Hgb Hct MCV MCH MCHC RDW Plt Count MPV Immature Gran % (Auto) Neut % (Auto) Lymph % (Auto) [place] % (Auto) Eos % (Auto) Baso % (Auto) Lymph # (Auto) [place] # (Auto) Eos # (Auto) Baso # (Auto) Abs Immat Gran (auto) Absolute Neuts (auto) Absolute Nucleated RBC Nucleated RBC % (auto) VBG pH VBG pCO2 VBG pO2 VBG HCO3 VBG O2 Saturation VBG Base Excess Sodium Potassium Chloride Carbon Dioxide Anion Gap BUN Creatinine Estim Creat Clear Calc Estimated GFR POC Glucose 319 H 266 H 211 H Random Glucose Fasting Glucose Estimat Average Glucose Hemoglobin A1c % Calcium Total Bilirubin Direct Bilirubin AST ALT Alkaline Phosphatase Ammonia Total Protein Albumin Triglycerides Cholesterol LDL Cholesterol, Calc HDL Cholesterol Vitamin B12 Folate Beta-Hydroxybutyrate TSH Urine Color Urine Appearance Urine pH Ur Specific [place] Urine Protein Urine Glucose (UA) Urine Ketones Urine Blood Urine Nitrite Ur Leukocyte Esterase Urine RBC Urine WBC Ur Squamous Epith Cells Urine Bacteria Hyaline Casts Granular Casts Urine Yeast Stool Occult Blood Stl C. cayetanensis PCR Stool Rotavirus A PCR Stl Adenov F 40/41 PCR Stool Astrovirus (PCR) Stool Campylobacter PCR Stool Cryptosporidium PCR Stl Sh Tox Pr E STEC PCR Stool E coli O157 PCR Stl Enterotoxigenic E PCR Stool EPEC (PCR) Stool EAEC (PCR) Stl E. histolytica PCR Stool Giardia Lamblia PCR Stl P. shigelloides PCR Stool Salmonella PCR Stool Sapovirus (PCR) Stl Shigella/EIEC PCR St Y.enterocolitica PCR Stool Vibrio (PCR) Stl Vibrio cholerae PCR Stl Norovirus GI/GII PCR Valproic Acid C. difficile Tox B Gene C. difficile Toxin A&B C. difficile Interpret 01/04/24 01/04/24 01/04/24 11:33 16:19 19:44 WBC RBC Hgb Hct MCV MCH MCHC RDW Plt Count MPV Immature Gran % (Auto) Neut % (Auto) Lymph % (Auto) [place] % (Auto) Eos % (Auto) Baso % (Auto) Lymph # (Auto) [place] # (Auto) Eos # (Auto) Baso # (Auto) Abs Immat Gran (auto) Absolute Neuts (auto) Absolute Nucleated RBC Nucleated RBC % (auto) VBG pH VBG pCO2 VBG pO2 VBG HCO3 VBG O2 Saturation VBG Base Excess Sodium Potassium Chloride Carbon Dioxide Anion Gap BUN Creatinine Estim Creat Clear Calc Estimated GFR POC Glucose 287 H 459 H* 380 H* Random Glucose Fasting Glucose Estimat Average Glucose Hemoglobin A1c % Calcium Total Bilirubin Direct Bilirubin AST ALT Alkaline Phosphatase Ammonia Total Protein Albumin Triglycerides Cholesterol LDL Cholesterol, Calc HDL Cholesterol Vitamin B12 Folate Beta-Hydroxybutyrate TSH Urine Color Urine Appearance Urine pH Ur Specific [place] Urine Protein Urine Glucose (UA) Urine Ketones Urine Blood Urine Nitrite Ur Leukocyte Esterase Urine RBC Urine WBC Ur Squamous Epith Cells Urine Bacteria Hyaline Casts Granular Casts Urine Yeast Stool Occult Blood Stl C. cayetanensis PCR Stool Rotavirus A PCR Stl Adenov F PCR Stool Astrovirus (PCR) Stool Campylobacter PCR Stool Cryptosporidium PCR Stl Sh Tox Pr E STEC PCR Stool E coli O157 PCR Stl Enterotoxigenic E PCR Stool EPEC (PCR) Stool EAEC (PCR) Stl E. histolytica PCR Stool Giardia Lamblia PCR Stl P. shigelloides PCR Stool Salmonella PCR Stool Sapovirus (PCR) Stl Shigella/EIEC PCR St Y.enterocolitica PCR Stool Vibrio (PCR) Stl Vibrio cholerae PCR Stl Norovirus GI/GII PCR Valproic Acid C. difficile Tox B Gene C. difficile Toxin A&B C. difficile Interpret 01/05/24 01/05/24 01/05/24 06:30 11:27 12:00 WBC RBC Hgb Hct MCV MCH MCHC RDW Plt Count MPV Immature Gran % (Auto) Neut % (Auto) Lymph % (Auto) [place] % (Auto) Eos % (Auto) Baso % (Auto) Lymph # (Auto) [place] # (Auto) Eos # (Auto) Baso # (Auto) Abs Immat Gran (auto) Absolute Neuts (auto) Absolute Nucleated RBC Nucleated RBC % (auto) VBG pH VBG pCO2 VBG pO2 VBG HCO3 VBG O2 Saturation VBG Base Excess Sodium Potassium Chloride Carbon Dioxide Anion Gap BUN Creatinine Estim Creat Clear Calc Estimated GFR POC Glucose 295 H 443 H* 451 H* Random Glucose Fasting Glucose Estimat Average Glucose Hemoglobin A1c % Calcium Total Bilirubin Direct Bilirubin AST ALT Alkaline Phosphatase Ammonia Total Protein Albumin Triglycerides Cholesterol LDL Cholesterol, Calc HDL Cholesterol Vitamin B12 Folate Beta-Hydroxybutyrate TSH Urine Color Urine Appearance Urine pH Ur Specific [place] Urine Protein Urine Glucose (UA) Urine Ketones Urine Blood Urine Nitrite Ur Leukocyte Esterase Urine RBC Urine WBC Ur Squamous Epith Cells Urine Bacteria Hyaline Casts Granular Casts Urine Yeast Stool Occult Blood Stl C. cayetanensis PCR Stool Rotavirus A PCR Stl Adenov F PCR Stool Astrovirus (PCR) Stool Campylobacter PCR Stool Cryptosporidium PCR Stl Sh Tox Pr E STEC PCR Stool E coli O157 PCR Stl Enterotoxigenic E PCR Stool EPEC (PCR) Stool EAEC (PCR) Stl E. histolytica PCR Stool Giardia Lamblia PCR Stl P. shigelloides PCR Stool Salmonella PCR Stool Sapovirus (PCR) Stl Shigella/EIEC PCR St Y.enterocolitica PCR Stool Vibrio (PCR) Stl Vibrio cholerae PCR Stl Norovirus GI/GII PCR Valproic Acid C. difficile Tox B Gene C. difficile Toxin A&B C. difficile Interpret 01/05/24 01/05/24 01/05/24 12:41 12:48 16:43 WBC 6.0 RBC 3.05 L Hgb 8.6 L Hct 26.3 L MCV 86.2 MCH 28.2 MCHC 32.7 RDW 15.2 Plt Count 133 L D MPV 8.9 L Immature Gran % (Auto) Neut % (Auto) Lymph % (Auto) [place] % (Auto) Eos % (Auto) Baso % (Auto) Lymph # (Auto) [place] # (Auto) Eos # (Auto) Baso # (Auto) Abs Immat Gran (auto) Absolute Neuts (auto) Absolute Nucleated RBC 0.000 Nucleated RBC % (auto) 0.0 VBG pH 7.50 H VBG pCO2 49 VBG pO2 97 VBG HCO3 39 H VBG O2 Saturation 99.0 VBG Base Excess 14.4 Sodium 133 L Potassium 4.8 Chloride 94 L Carbon Dioxide 31 H Anion Gap 13 BUN 21 H Creatinine 1.15 Estim Creat Clear Calc 28.8 Estimated GFR 46 POC Glucose 247 H Random Glucose 446 H* Fasting Glucose Estimat Average Glucose Hemoglobin A1c % Calcium 9.8 Total Bilirubin Direct Bilirubin AST ALT Alkaline Phosphatase Ammonia Total Protein Albumin Triglycerides Cholesterol LDL Cholesterol, Calc HDL Cholesterol Vitamin B12 Folate Beta-Hydroxybutyrate 0.08 TSH Urine Color Urine Appearance Urine pH Ur Specific [place] Urine Protein Urine Glucose (UA) Urine Ketones Urine Blood Urine Nitrite Ur Leukocyte Esterase Urine RBC Urine WBC Ur Squamous Epith Cells Urine Bacteria Hyaline Casts Granular Casts Urine Yeast Stool Occult Blood Stl C. cayetanensis PCR Stool Rotavirus A PCR Stl Adenov F 40 PCR Stool Astrovirus (PCR) Stool Campylobacter PCR Stool Cryptosporidium PCR Stl Sh Tox Pr E STEC PCR Stool E coli O157 PCR Stl Enterotoxigenic E PCR Stool EPEC (PCR) Stool EAEC (PCR) Stl E. histolytica PCR Stool Giardia Lamblia PCR Stl P. shigelloides PCR Stool Salmonella PCR Stool Sapovirus (PCR) Stl Shigella/EIEC PCR St Y.enterocolitica PCR Stool Vibrio (PCR) Stl Vibrio cholerae PCR Stl Norovirus GI/GII PCR Valproic Acid C. difficile Tox B Gene C. difficile Toxin A&B C. difficile Interpret 01/05/24 01/06/24 19:40 05:53 WBC RBC Hgb Hct MCV MCH MCHC RDW Plt Count MPV Immature Gran % (Auto) Neut % (Auto) Lymph % (Auto) [place] % (Auto) Eos % (Auto) Baso % (Auto) Lymph # (Auto) [place] # (Auto) Eos # (Auto) Baso # (Auto) Abs Immat Gran (auto) Absolute Neuts (auto) Absolute Nucleated RBC Nucleated RBC % (auto) VBG pH VBG pCO2 VBG pO2 VBG HCO3 VBG O2 Saturation VBG Base Excess Sodium Potassium Chloride Carbon Dioxide Anion Gap BUN Creatinine Estim Creat Clear Calc Estimated GFR POC Glucose 194 H 131 H Random Glucose Fasting Glucose Estimat Average Glucose Hemoglobin A1c % Calcium Total Bilirubin Direct Bilirubin AST ALT Alkaline Phosphatase Ammonia Total Protein Albumin Triglycerides Cholesterol LDL Cholesterol, Calc HDL Cholesterol Vitamin B12 Folate Beta-Hydroxybutyrate TSH Urine Color Urine Appearance Urine pH Ur Specific [place] Urine Protein Urine Glucose (UA) Urine Ketones Urine Blood Urine Nitrite Ur Leukocyte Esterase Urine RBC Urine WBC Ur Squamous Epith Cells Urine Bacteria Hyaline Casts Granular Casts Urine Yeast Stool Occult Blood Stl C. cayetanensis PCR Stool Rotavirus A PCR Stl Adenov F 40/41 PCR Stool Astrovirus (PCR) Stool Campylobacter PCR Stool Cryptosporidium PCR Stl Sh Tox Pr E STEC PCR Stool E coli O157 PCR Stl Enterotoxigenic E PCR Stool EPEC (PCR) Stool EAEC (PCR) Stl E. histolytica PCR Stool Giardia Lamblia PCR Stl P. shigelloides PCR Stool Salmonella PCR Stool Sapovirus (PCR) Stl Shigella/EIEC PCR St Y.enterocolitica PCR Stool Vibrio (PCR) Stl Vibrio cholerae PCR Stl Norovirus GI/GII PCR Valproic Acid C. difficile Tox B Gene C. difficile Toxin A&B C. difficile Interpret Airway Mallampati Class: II TM Dist: >3cm Neck ROM: Full Heart: rrr Lungs: cta Assessment and Plan Assessment Anesthesia Assessment: Anesthesia Plan Discussed and Chart Reviewed Final Anesthetic Review Family History of Problems with Anesthesia: No History of Problems with Anesthesia: No NPO: Yes ASA Class: III Final Preanesthetic Review: No Changes in Pt Med Stat, Meds/Allgs Chart Reviewed and Consent Obtained/Reviewed Patient Risk: Intermediate Procedure Risk: Intermediate Anesthetic Plan Anesthetic Plan: GA Disposition: Standard PACU
--- NOTE | 2024-01-06 07:58 | MHC.SHP ---
Pre-Procedural Eval Section A - 24 Hr Update-Section A only Date of Service: 01/06/24 Changes since office visit: Yes New Medical Problems and Yes Changes in Medication; No Cold of Flu in the past 2 weeks and No Patient answered all questions The patient has been examined within 24 hours of the surgical procedure. The History & Physical has been completed within 30 days and I have reviewed it.: Yes Section B - Complete if H&P > 30 days Chief Complaint: Major depressive disorder, severe, recurrent Allergies: Allergies Allergy/AdvReac Type Severity Reaction Status Date / Time atropine Allergy Unknown Shortness Verified 12/02/23 23:30 of Breath enoxaparin [From Lovenox] Allergy Unknown Unknown Verified 12/02/23 23:30 penicillin V Allergy Unknown Unknown Verified 03/19/23 07:30 pseudoephedrine [Aprodine] Allergy Unknown Unknown Verified 03/19/23 07:30 triprolidine [Aprodine] Allergy Unknown Unknown Verified 03/19/23 07:30 Plan I have reviewed the history and physical and performed a pertinent physical examination on my patient. No changes have occurred unless specified. Time Spent With Patient Time: Total time managing care of this patient today ____ minutes.
--- NOTE | 2024-01-06 08:01 | HO.ECTPROC ---
ECT Procedure Note Diagnosis/Treatment Date of Service: 01/06/24 Diagnosis: Major Depressive Disorder and Catatonia Previous ECT Date: 01/01/24 Current Treatment Number: 9 Treatment: Series Interval Clinical Notes: pt with some r shoulder discomfort otherwise states ok mostly sedated Time: Total time managing care of this patient today ____ minutes. ECT Settings Device: THYMATRON DGx Electrode Placement: Bitemporal Program/Pulse Width: 0.50 Energy Percent: 100 Seizure Duration By EEG (in seconds): 33 Medications Administration General Anesthetic: Etomidate (12) Muscle Relaxant: Succinylcholine (60) Ancillary Medications Anti-emetics: Zofran - Pre ECT Miscillaneous Medications: Midazolam (1 mg) Airway Management Airway Management: Bag Mask Ventilation Treatment Recommendations No Changes Recommended: No change Notes: all ect well modified tolerated 60 mg succ consider change to bf or rul Pt Tolerated Procedure w/o Issue: Yes
[2024-01-06] MEDS: Aspirin 81 MG TAB.CHEW PO (09:40)
[2024-01-06] MEDS: Anastrozole 1 MG TABLET PO (09:43)
[2024-01-06] MEDS: Insulin Glargine,Hum.rec.anlog 100 UNIT/ML 10 ML VIAL 12 UNIT SUBCUT ×2 (09:43→20:40)
[2024-01-06] MEDS: Divalproex Sodium Sprinkles 125 MG CAP.DR.SPR 250 MG PO ×2 (09:44→20:40)
[2024-01-06] MEDS: Thiamine HCL 100 MG TABLET PO (09:45)
[2024-01-06] MEDS: Magnesium Oxide 400 MG TABLET PO ×2 (09:45→20:40)
[2024-01-06] MEDS: Furosemide 20 MG TABLET PO (09:46)
[2024-01-06] MEDS: oxyCODONE HCl Immed Release 5 MG TABLET PO (09:46)
[2024-01-06] MEDS: Ferrous Sulfate 324 MG TABLET.DR PO (09:47)
[2024-01-06] MEDS: Losartan Potassium 50 MG TABLET 100 MG PO (09:47)
[2024-01-06] MEDS: amLODIPine Besylate 5 MG TABLET PO (09:48)
[2024-01-06] MEDS: Multivitamin TABLET 1 TAB PO (09:48)
[2024-01-06] MEDS: Lidocaine 4 % Patch ADH..PATCH 1 PATCH TRANSDERMA (09:48)
[2024-01-06 11:38] LABS: Glucose, Whole Blood 316 mg/dL (60-115)
[2024-01-06] MEDS: Insulin Lispro 100 UNIT/ML 3 ML VIAL SUBCUT ×3 (11:45→20:40)
--- NOTE | 2024-01-06 11:48 | PC.NURSE ---
Peripheral IV remains in for ECT in left forearm, flushed with 5 ml normal saline at 1125, iV insertion site clear without signs or symptoms of complications, flushed easily, dressing dry and intact.
--- NOTE | 2024-01-06 13:55 | P.PNPSI_ITS ---
Subjective Subjective Date of Service: 01/06/24 Reason For Visit: Major depressive disorder, severe, recurrent Subjective Notes: Conditional Voluntary Interim History: The nursing staff reported the patient had been pleasant cooperative, with good eye contact. She went to ECT with no problems. The staff has noticed that his fasting blood sugars have been very high. On interview the patient reports that she is feeling better sporadic pain due to her fracture but works well with medication management. Mental Status Exam Mental Status Exam Patient Appearance: Appropriate Patient Orientation: Person and Situation Level of Consciousness: Awake and Appropriate Patient Behavior: Guarded and Passive Mood Description: Withdrawn Affect Description: Constricted Patient Cognition Impaired: Yes Ability to Follow Directions: Good Speech Pattern: Clear Hallucinations: None Delusions: Not Present Thought Process: Distracted and Slowed Thinking Thought Content: positive for [place] and positive for Poverty of Content Judgement: Fair Diagnostics Vital Signs (24Hr): Vital Signs - 24 hr 01/05/24 20:00 01/06/24 06:34 01/06/24 07:06 Temperature 100.4 F 97.2 F 97.3 F Pulse Rate 91 80 76 Respiratory Rate 16 16 16 Blood Pressure 126/61 136/53 L 131/68 Pulse Oximetry 95 96 98 Oxygen Delivery Method Room Air Room Air Oxygen Flow Rate 01/06/24 07:52 01/06/24 07:57 01/06/24 08:02 Temperature 97.7 F Pulse Rate 83 88 88 Respiratory Rate 16 16 16 Blood Pressure 144/57 H 142/59 H 131/56 L Pulse Oximetry 96 96 97 Oxygen Delivery Method Nasal Cannula with ETCO2 Nasal Cannula with ETCO2 Nasal Cannula with ETCO2 Oxygen Flow Rate 2 2 2 01/06/24 08:07 01/06/24 08:22 01/06/24 09:40 Temperature 97.7 F 96.9 F Pulse Rate 96 103 H 97 Respiratory Rate 16 16 18 Blood Pressure 134/57 L 142/58 H 117/59 L Pulse Oximetry 99 96 97 Oxygen Delivery Method Nasal Cannula with ETCO2 Room Air Room Air Oxygen Flow Rate 2 01/06/24 09:46 01/06/24 09:47 01/06/24 09:48 Temperature Pulse Rate Respiratory Rate Blood Pressure 117/59 L 117/59 L 117/59 L Pulse Oximetry Oxygen Delivery Method Oxygen Flow Rate BMI result Body Mass Index 21.7 Labs 01/05/24 12:41 01/05/24 12:41 Labs: Laboratory Results - last 48 hr 01/04/24 01/04/24 01/05/24 16:19 19:44 06:30 WBC RBC Hgb Hct MCV MCH MCHC RDW Plt Count MPV Absolute Nucleated RBC Nucleated RBC % (auto) VBG pH VBG pCO2 VBG pO2 VBG HCO3 VBG O2 Saturation VBG Base Excess Sodium Potassium Chloride Carbon Dioxide Anion Gap BUN Creatinine Estim Creat Clear Calc Estimated GFR POC Glucose 459 H* 380 H* 295 H Random Glucose Calcium Beta-Hydroxybutyrate 01/05/24 01/05/24 01/05/24 11:27 12:00 12:41 WBC 6.0 RBC 3.05 L Hgb 8.6 L Hct 26.3 L MCV 86.2 MCH 28.2 MCHC 32.7 RDW 15.2 Plt Count 133 L D MPV 8.9 L Absolute Nucleated RBC 0.000 Nucleated RBC % (auto) 0.0 VBG pH VBG pCO2 VBG pO2 VBG HCO3 VBG O2 Saturation VBG Base Excess Sodium 133 L Potassium 4.8 Chloride 94 L Carbon Dioxide 31 H Anion Gap 13 BUN 21 H Creatinine 1.15 Estim Creat Clear Calc 28.8 Estimated GFR 46 POC Glucose 443 H* 451 H* Random Glucose 446 H* Calcium 9.8 Beta-Hydroxybutyrate 0.08 01/05/24 01/05/24 01/05/24 12:48 16:43 19:40 WBC RBC Hgb Hct MCV MCH MCHC RDW Plt Count MPV Absolute Nucleated RBC Nucleated RBC % (auto) VBG pH 7.50 H VBG pCO2 49 VBG pO2 97 VBG HCO3 39 H VBG O2 Saturation 99.0 VBG Base Excess 14.4 Sodium Potassium Chloride Carbon Dioxide Anion Gap BUN Creatinine Estim Creat Clear Calc Estimated GFR POC Glucose 247 H 194 H Random Glucose Calcium Beta-Hydroxybutyrate 01/06/24 01/06/24 05:53 11:29 WBC RBC Hgb Hct MCV MCH MCHC RDW Plt Count MPV Absolute Nucleated RBC Nucleated RBC % (auto) VBG pH VBG pCO2 VBG pO2 VBG HCO3 VBG O2 Saturation VBG Base Excess Sodium Potassium Chloride Carbon Dioxide Anion Gap BUN Creatinine Estim Creat Clear Calc Estimated GFR POC Glucose 131 H 316 H Random Glucose Calcium Beta-Hydroxybutyrate Imaging Radiology Impressions: ITS Impressions Chest X-Ray 12/03/23 12:20 IMPRESSION: 1. Chronic interstitial prominence without focal consolidative airspace opacity. 2. Densities along the left lower chest which may represent pleural calcifications versus soft tissue calcifications. Correlation with lateral radiograph could help further evaluate. Electronically signed by: Viral Smallwood MD 12/03/2023 01:33 PM EDT RP Head CT 12/03/23 13:17 IMPRESSION: 1. No acute intracranial abnormalities. No intracranial hemorrhage or mass effect. 2. Moderate small vessel ischemic changes in the hemispheric white matter. 3. 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 4. Age advanced cerebral and cerebellar involutional changes with prominent ventricles. Cannot definitively exclude a component of communicating hydrocephalus given the appearance. Head CT 12/10/23 21:05 IMPRESSION: No acute intracranial abnormality including hemorrhage, mass effect, hydrocephalus, or acute territorial edematous infarction. Electronically signed by: Juan Alberto Murdock MD 12/10/2023 10:07 PM EDT RP Shoulder X-Ray 01/01/24 09:08 IMPRESSION: Comminuted fracture of the right shoulder Electronically signed by: Sean Kirkpatrick MD 01/01/2024 10:25 AM EDT RP KUB X-Ray 01/05/24 04:50 IMPRESSION: Findings as above. Electronically signed by: Rakesh Garcia MD 01/05/2024 05:10 PM EDT RP Medications Medications Current Medications Acetaminophen (Acetaminophen 325 Mg Tablet) 650 mg PO Q6H PRN PRN Reason: Headache/Pain Mild Scale (1-3) Last Admin: 01/05/24 21:29 Dose: 650 mg Al Hydroxide/Mg Hydroxide (Magnesium Hydrox/Alum Hydrox 30 Ml Oral.Susp) 30 ml PO Q6H PRN PRN Reason: Heartburn/Nausea Amlodipine Besylate (Amlodipine Besylate 5 Mg Tablet) 5 mg PO DAILY [facility]; Protocol Last Admin: 01/06/24 09:48 Dose: 5 mg Anastrozole (Anastrozole 1 Mg Tablet) 1 mg PO DAILY [facility] Last Admin: 01/06/24 09:43 Dose: 1 mg Aspirin (Aspirin 81 Mg Tab.Chew) 81 mg PO DAILY [facility] Last Admin: 01/06/24 09:40 Dose: 81 mg Atorvastatin Calcium (Atorvastatin Calcium 10 Mg Tablet) 10 mg PO BEDTIME [facility] Last Admin: 01/05/24 20:04 Dose: 10 mg Divalproex Sodium (Divalproex Sodium Sprinkles 125 Mg Cap.) 250 mg PO BID [facility] Last Admin: 01/06/24 09:44 Dose: 250 mg Docusate Sodium (Docusate Sodium 100 Mg Capsule) 100 mg PO BEDTIME PRN PRN Reason: Constipation Ferrous Sulfate (Ferrous Sulfate 324 Mg Tablet.) 324 mg PO DAILY [facility] Last Admin: 01/06/24 09:47 Dose: 324 mg Furosemide (Furosemide 20 Mg Tablet) 20 mg PO DAILY [facility]; Protocol Last Admin: 01/06/24 09:46 Dose: 20 mg Glucose (Glucose Gel 15 Gm Gel..Gram.) 15 gm PO Q15M PRN; Protocol PRN Reason: per Hypoglycemia Standing Ord. Insulin Glargine (Insulin Glargine,Hum.Rec.Anlog 100 Unit/Ml 10 Ml Vial) 12 unit SUBCUT BEDTIME [facility] Last Admin: 01/05/24 20:05 Dose: 12 unit Insulin Glargine (Insulin Glargine,Hum.Rec.Anlog 100 Unit/Ml 10 Ml Vial) 12 unit SUBCUT DAILY [facility] Last Admin: 01/06/24 09:43 Dose: 12 unit Insulin Human Lispro (Insulin Lispro 100 Unit/Ml 3 Ml Vial) 0 unit SUBCUT QIDACHS [facility]; Protocol Last Admin: 01/06/24 11:45 Dose: 12 unit Lidocaine (Lidocaine 4 % Patch Adh..Patch) 1 patch TRANSDERMA DAILY [facility]; Protocol Last Admin: 01/06/24 09:48 Dose: 1 patch Loratadine (Loratadine 10 Mg Tablet) 10 mg PO BEDTIME [facility] Last Admin: 01/05/24 20:07 Dose: 10 mg Losartan Potassium (Losartan Potassium 50 Mg Tablet) 100 mg PO DAILY [facility]; Protocol Last Admin: 01/06/24 09:47 Dose: 100 mg Magnesium Hydroxide (Milk Of Magnesia 30 Ml Oral.Susp) 30 ml PO DAILY PRN PRN Reason: Constipation Last Admin: 01/05/24 10:03 Dose: 30 ml Magnesium Oxide (Magnesium Oxide 400 Mg Tablet) 400 mg PO BID [facility] Last Admin: 01/06/24 09:45 Dose: 400 mg Mirtazapine (Mirtazapine 30 Mg Tablet) 30 mg PO BEDTIME [facility] Last Admin: 01/05/24 20:07 Dose: 30 mg Multivitamins/Vitamin C (Multivitamin Tablet) 1 tab PO DAILY [facility] Last Admin: 01/06/24 09:48 Dose: 1 tab Naloxone HCl (Naloxone Hcl 0.4 Mg/Ml Vial) 0.04 mg IVPUSH Q5M PRN PRN Reason: Excessive sedation or RR < 8 Naloxone HCl (Naloxone Hcl 0.4 Mg/Ml Vial) 0.04 mg IVPUSH Q5M PRN PRN Reason: Excessive sedation or RR < 8 Nicotine Polacrilex (Nicotine Polacrilex 2 Mg Gum) 4 mg BUCCAL Q2H PRN PRN Reason: Nicotine Cravings Omeprazole (Omeprazole 20 Mg Capsule.Dr) 20 mg PO DAILY@0630 [facility] Last Admin: 01/06/24 06:00 Dose: Not Given Oxycodone HCl (Oxycodone Hcl Immed Release 5 Mg Tablet) 5 mg PO Q4H PRN PRN Reason: Pain, Severe (Pain Scale 7-10) Last Admin: 01/06/24 09:46 Dose: 5 mg Risperidone (Risperidone 0.5 Mg Tablet) 0.5 mg PO BID PRN PRN Reason: Restlessness Sodium Biphosphate/Sodium Phosphate (Sodium Phosphate,[place]-Dibasic 133 Ml Enema) 133 ml SC ONCE PRN PRN Reason: Constipation Last Admin: 01/05/24 08:35 Dose: 133 ml Sodium Chloride (0.9 % Sodium Chloride Flush 3 Ml Syringe) 3 ml IVFLUSH [facility] Thiamine HCl (Thiamine Hcl 100 Mg Tablet) 100 mg PO DAILY [facility] Last Admin: 01/06/24 09:45 Dose: 100 mg Tramadol HCl (Tramadol Hcl 50 Mg Tablet) 25 mg PO Q6H PRN PRN Reason: Pain, Moderate(Pain Scale 4-6) Last Admin: 01/05/24 21:28 Dose: 25 mg Trazodone HCl (Trazodone Hcl 50 Mg Tablet) 50 mg PO BEDTIME PRN PRN Reason: Insomnia Last Admin: 12/30/23 21:56 Dose: 50 mg Allergies Allergies Allergy/AdvReac Type Severity Reaction Status Date / Time atropine Allergy Unknown Shortness Verified 12/02/23 23:30 of Breath enoxaparin [From Lovenox] Allergy Unknown Unknown Verified 12/02/23 23:30 penicillin V Allergy Unknown Unknown Verified 03/19/23 07:30 pseudoephedrine [Aprodine] Allergy Unknown Unknown Verified 03/19/23 07:30 triprolidine [Aprodine] Allergy Unknown Unknown Verified 03/19/23 07:30 Assessment & Plan Assessment & Plan (1) Major depressive disorder with psychotic features: Status: Acute Code(s): F32.3 - Major depressive disorder, single episode, severe with psychotic features Assessment and Plan: 12/15/23: Continue tx plan Plan 73-year-old female with history of insulin-dependent type 2 diabetes, hypertension, hyperlipidemia, history of C diff colitis, hypothyroidism, heart failure preserved ejection fraction, cirrhosis admitted to [facility] for catatonia with consult placed to hospitalist service for ect risk stratification. Pt with class II risk on revised cardiac risk index given history of CHF though is clinically euvolemic on exam. Lungs are clear. Has known but no murmurs heard on exam. Would recommend checking EKG to assess for ECT prolongation prior to ECT treatment. Unable to assess ROS. Based on RCRI and known history of ECT with good tolerance there does not appear to be any acute medical contraindication that should preclude patient from undergoing ect. Appropriate anesthesia precautions should be taken given known history of BASIL. Plan 1. Continue with antibiotics since the patient has been diagnosed with a UTI. 2. Continue with same treatment. 3. continue with ECT 4. Family meeting. 5. Orthopedic consult we will follow his recommendations. 6. Tramadol 25 p.r.n. q.6 hours moderate pain 7. Oxycodone 5 mg p.o. Q 4 hours p.r.n. severe pain Reason for continued inpatient stay Substantial Risk for: inability to function, rapid decompensation and med/psych decompensation Time Spent With Patient Time: Total time managing care of this patient today __20__ minutes.
[2024-01-06 16:26] LABS: Glucose, Whole Blood 390 mg/dL (60-115)
--- NOTE | 2024-01-06 16:26 | PC.NURSE ---
POC 390 before supper, Dr. Yung updated. No new orders, OK to give 14 units of Lispro per current sliding scale.
[2024-01-06] MEDS: 0.9 % Sodium Chloride Flush 3 ML SYRINGE IVFLUSH ×2 (16:49→23:39)
[2024-01-06 20:08] LABS: Glucose, Whole Blood 258 mg/dL (60-115)
[2024-01-06] MEDS: Atorvastatin Calcium 10 MG TABLET PO (20:40)
[2024-01-06] MEDS: Mirtazapine 30 MG TABLET PO (20:41)
[2024-01-06] MEDS: traMADoL HCL 50 MG TABLET 25 MG PO (20:41)
[2024-01-06] MEDS: Loratadine 10 MG TABLET PO (20:41)
[2024-01-07] MEDS: Omeprazole 20 MG CAPSULE.DR PO (06:22)
[2024-01-07 06:38] LABS: Glucose, Whole Blood 105 mg/dL (60-115)
--- NOTE | 2024-01-07 08:17 | HO.POSTANES ---
Post Anesthesia Evaluation Post Anesthesia Evaluation Date of Service: 01/06/24 Anesthesia: General Mental Status: Awake Pain Control: Satisfactory Nausea/Vomiting: None Hydration: Adequate Anesthesia-Related Issues: No Anes. Related Issues
[2024-01-07 08:39] VITALS: BP 162/77; PULSE 77; RESP 15; TEMP 36.6; O2SAT 95
[2024-01-07] MEDS: Insulin Glargine,Hum.rec.anlog 100 UNIT/ML 10 ML VIAL 12 UNIT SUBCUT ×2 (08:45→21:01)
[2024-01-07] MEDS: Furosemide 20 MG TABLET PO (08:45)
[2024-01-07] MEDS: Multivitamin TABLET 1 TAB PO (08:46)
[2024-01-07] MEDS: oxyCODONE HCl Immed Release 5 MG TABLET PO ×3 (08:46→21:00)
[2024-01-07] MEDS: Losartan Potassium 50 MG TABLET 100 MG PO (08:46)
[2024-01-07] MEDS: Anastrozole 1 MG TABLET PO (08:46)
[2024-01-07] MEDS: amLODIPine Besylate 5 MG TABLET PO (08:46)
[2024-01-07] MEDS: Divalproex Sodium Sprinkles 125 MG CAP.DR.SPR 250 MG PO ×2 (08:47→21:01)
[2024-01-07] MEDS: 0.9 % Sodium Chloride Flush 3 ML SYRINGE IVFLUSH ×3 (08:47→23:39)
[2024-01-07] MEDS: Ferrous Sulfate 324 MG TABLET.DR PO (08:47)
[2024-01-07] MEDS: Magnesium Oxide 400 MG TABLET PO ×2 (08:47→21:01)
[2024-01-07] MEDS: Thiamine HCL 100 MG TABLET PO (08:47)
[2024-01-07] MEDS: Aspirin 81 MG TAB.CHEW PO (08:47)
[2024-01-07] MEDS: Lidocaine 4 % Patch ADH..PATCH 1 PATCH TRANSDERMA (09:08)
[2024-01-07 11:23] LABS: Glucose, Whole Blood 115 mg/dL (60-115)
--- NOTE | 2024-01-07 11:51 | HO.PSYCHPN ---
Subjective Subjective Date of Service: 01/07/24 Reason For Visit: Major depressive disorder, severe, recurrent Subjective Notes: Conditional Voluntary Healthcare Proxy: Yes Interim History: The nursing staff reported the patient had ECT yesterday, she complained of shoulder pain and received oxycodone with for improvement of the pain. The social media community manager will contact the family to start working on early discharge at the end of this week. On interview the patient denies new symptoms pleasant cooperative. Mental Status Exam Mental Status Exam Patient Appearance: Appropriate Patient Orientation: Person and Situation Level of Consciousness: Awake and Appropriate Patient Behavior: Guarded and Passive Mood Description: Withdrawn Affect Description: Constricted Patient Cognition Impaired: Yes Ability to Follow Directions: Good Speech Pattern: Clear Hallucinations: None Delusions: Not Present Thought Process: Distracted and Slowed Thinking Thought Content: positive for [place] and positive for Poverty of Content Judgement: Fair Diagnostics Vital Signs (24Hr): Vital Signs - 24 hr 01/06/24 20:00 01/07/24 08:39 Temperature 97.6 F 97.8 F Pulse Rate 112 H 77 Respiratory Rate 15 Blood Pressure 144/62 H 162/77 H Pulse Oximetry 92 95 Oxygen Delivery Method Room Air Room Air BMI result Body Mass Index 21.7 Labs 01/05/24 12:41 01/05/24 12:41 Labs: Laboratory Results - last 48 hr 01/05/24 01/05/24 01/05/24 12:00 12:41 12:48 WBC 6.0 RBC 3.05 L Hgb 8.6 L Hct 26.3 L MCV 86.2 MCH 28.2 MCHC 32.7 RDW 15.2 Plt Count 133 L D MPV 8.9 L Absolute Nucleated RBC 0.000 Nucleated RBC % (auto) 0.0 VBG pH 7.50 H VBG pCO2 49 VBG pO2 97 VBG HCO3 39 H VBG O2 Saturation 99.0 VBG Base Excess 14.4 Sodium 133 L Potassium 4.8 Chloride 94 L Carbon Dioxide 31 H Anion Gap 13 BUN 21 H Creatinine 1.15 Estim Creat Clear Calc 28.8 Estimated GFR 46 POC Glucose 451 H* Random Glucose 446 H* Calcium 9.8 Beta-Hydroxybutyrate 0.08 01/05/24 01/05/24 01/06/24 16:43 19:40 05:53 WBC RBC Hgb Hct MCV MCH MCHC RDW Plt Count MPV Absolute Nucleated RBC Nucleated RBC % (auto) VBG pH VBG pCO2 VBG pO2 VBG HCO3 VBG O2 Saturation VBG Base Excess Sodium Potassium Chloride Carbon Dioxide Anion Gap BUN Creatinine Estim Creat Clear Calc Estimated GFR POC Glucose 247 H 194 H 131 H Random Glucose Calcium Beta-Hydroxybutyrate 01/06/24 01/06/24 01/06/24 11:29 16:20 19:58 WBC RBC Hgb Hct MCV MCH MCHC RDW Plt Count MPV Absolute Nucleated RBC Nucleated RBC % (auto) VBG pH VBG pCO2 VBG pO2 VBG HCO3 VBG O2 Saturation VBG Base Excess Sodium Potassium Chloride Carbon Dioxide Anion Gap BUN Creatinine Estim Creat Clear Calc Estimated GFR POC Glucose 316 H 390 H* 258 H Random Glucose Calcium Beta-Hydroxybutyrate 01/07/24 01/07/24 06:25 11:15 WBC RBC Hgb Hct MCV MCH MCHC RDW Plt Count MPV Absolute Nucleated RBC Nucleated RBC % (auto) VBG pH VBG pCO2 VBG pO2 VBG HCO3 VBG O2 Saturation VBG Base Excess Sodium Potassium Chloride Carbon Dioxide Anion Gap BUN Creatinine Estim Creat Clear Calc Estimated GFR POC Glucose 105 115 Random Glucose Calcium Beta-Hydroxybutyrate Imaging Radiology Impressions: ITS Impressions Chest X-Ray 12/03/23 12:20 IMPRESSION: 1. Chronic interstitial prominence without focal consolidative airspace opacity. 2. Densities along the left lower chest which may represent pleural calcifications versus soft tissue calcifications. Correlation with lateral radiograph could help further evaluate. Electronically signed by: Viral Smallwood MD 12/03/2023 01:33 PM EDT RP Head CT 12/03/23 13:17 IMPRESSION: 1. No acute intracranial abnormalities. No intracranial hemorrhage or mass effect. 2. Moderate small vessel ischemic changes in the hemispheric white matter. 3. 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 4. Age advanced cerebral and cerebellar involutional changes with prominent ventricles. Cannot definitively exclude a component of communicating hydrocephalus given the appearance. Head CT 12/10/23 21:05 IMPRESSION: No acute intracranial abnormality including hemorrhage, mass effect, hydrocephalus, or acute territorial edematous infarction. Electronically signed by: Juan Alberto Murdock MD 12/10/2023 10:07 PM EDT RP Shoulder X-Ray 01/01/24 09:08 IMPRESSION: Comminuted fracture of the right shoulder Electronically signed by: Sean Kirkpatrick MD 01/01/2024 10:25 AM EDT RP KUB X-Ray 01/05/24 04:50 IMPRESSION: Findings as above. Electronically signed by: Rakesh Garcia MD 01/05/2024 05:10 PM EDT RP Medications Medications Current Medications Acetaminophen (Acetaminophen 325 Mg Tablet) 650 mg PO Q6H PRN PRN Reason: Headache/Pain Mild Scale (1-3) Last Admin: 01/05/24 21:29 Dose: 650 mg Al Hydroxide/Mg Hydroxide (Magnesium Hydrox/Alum Hydrox 30 Ml Oral.Susp) 30 ml PO Q6H PRN PRN Reason: Heartburn/Nausea Amlodipine Besylate (Amlodipine Besylate 5 Mg Tablet) 5 mg PO DAILY [facility]; Protocol Last Admin: 01/07/24 08:46 Dose: 5 mg Anastrozole (Anastrozole 1 Mg Tablet) 1 mg PO DAILY TOVA Last Admin: 01/07/24 08:46 Dose: 1 mg Aspirin (Aspirin 81 Mg Tab.Chew) 81 mg PO DAILY [facility] Last Admin: 01/07/24 08:47 Dose: 81 mg Atorvastatin Calcium (Atorvastatin Calcium 10 Mg Tablet) 10 mg PO BEDTIME [facility]OVA Last Admin: 01/06/24 20:40 Dose: 10 mg Divalproex Sodium (Divalproex Sodium Sprinkles 125 Mg Cap.) 250 mg PO BID TOVA Last Admin: 01/07/24 08:47 Dose: 250 mg Docusate Sodium (Docusate Sodium 100 Mg Capsule) 100 mg PO BEDTIME PRN PRN Reason: Constipation Ferrous Sulfate (Ferrous Sulfate 324 Mg Tablet.Dr) 324 mg PO DAILY TOVA Last Admin: 01/07/24 08:47 Dose: 324 mg Furosemide (Furosemide 20 Mg Tablet) 20 mg PO DAILY [facility]; Protocol Last Admin: 01/07/24 08:45 Dose: 20 mg Glucose (Glucose Gel 15 Gm Gel..Gram.) 15 gm PO Q15M PRN; Protocol PRN Reason: per Hypoglycemia Standing Ord. Insulin Glargine (Insulin Glargine,Hum.Rec.Anlog 100 Unit/Ml 10 Ml Vial) 12 unit SUBCUT BEDTIME [facility] Last Admin: 01/06/24 20:40 Dose: 12 unit Insulin Glargine (Insulin Glargine,Hum.Rec.Anlog 100 Unit/Ml 10 Ml Vial) 12 unit SUBCUT DAILY [facility] Last Admin: 01/07/24 08:45 Dose: 12 unit Insulin Human Lispro (Insulin Lispro 100 Unit/Ml 3 Ml Vial) 0 unit SUBCUT QIDACHS [facility]; Protocol Last Admin: 01/07/24 11:48 Dose: Not Given Lidocaine (Lidocaine 4 % Patch Adh..Patch) 1 patch TRANSDERMA DAILY [facility]; Protocol Last Admin: 01/07/24 09:08 Dose: 1 patch Loratadine (Loratadine 10 Mg Tablet) 10 mg PO BEDTIME [facility] Last Admin: 01/06/24 20:41 Dose: 10 mg Losartan Potassium (Losartan Potassium 50 Mg Tablet) 100 mg PO DAILY [facility]; Protocol Last Admin: 01/07/24 08:46 Dose: 100 mg Magnesium Hydroxide (Milk Of Magnesia 30 Ml Oral.Susp) 30 ml PO DAILY PRN PRN Reason: Constipation Last Admin: 01/05/24 10:03 Dose: 30 ml Magnesium Oxide (Magnesium Oxide 400 Mg Tablet) 400 mg PO BID [facility] Last Admin: 01/07/24 08:47 Dose: 400 mg Mirtazapine (Mirtazapine 30 Mg Tablet) 30 mg PO BEDTIME [facility] Last Admin: 01/06/24 20:41 Dose: 30 mg Multivitamins/Vitamin C (Multivitamin Tablet) 1 tab PO DAILY [facility] Last Admin: 01/07/24 08:46 Dose: 1 tab Naloxone HCl (Naloxone Hcl 0.4 Mg/Ml Vial) 0.04 mg IVPUSH Q5M PRN PRN Reason: Excessive sedation or RR < 8 Naloxone HCl (Naloxone Hcl 0.4 Mg/Ml Vial) 0.04 mg IVPUSH Q5M PRN PRN Reason: Excessive sedation or RR < 8 Nicotine Polacrilex (Nicotine Polacrilex 2 Mg Gum) 4 mg BUCCAL Q2H PRN PRN Reason: Nicotine Cravings Omeprazole (Omeprazole 20 Mg Capsule.Dr) 20 mg PO DAILY@0630 [facility] Last Admin: 01/07/24 06:22 Dose: 20 mg Oxycodone HCl (Oxycodone Hcl Immed Release 5 Mg Tablet) 5 mg PO Q4H PRN PRN Reason: Pain, Severe (Pain Scale 7-10) Last Admin: 01/07/24 08:46 Dose: 5 mg Risperidone (Risperidone 0.5 Mg Tablet) 0.5 mg PO BID PRN PRN Reason: Restlessness Sodium Biphosphate/Sodium Phosphate (Sodium Phosphate,[place]-Dibasic 133 Ml Enema) 133 ml [place] ONCE PRN PRN Reason: Constipation Last Admin: 01/05/24 08:35 Dose: 133 ml Sodium Chloride (0.9 % Sodium Chloride Flush 3 Ml Syringe) 3 ml IVFLUSH QSHIFT TOVA Last Admin: 01/07/24 08:47 Dose: 3 ml Thiamine HCl (Thiamine Hcl 100 Mg Tablet) 100 mg PO DAILY [facility] Last Admin: 01/07/24 08:47 Dose: 100 mg Tramadol HCl (Tramadol Hcl 50 Mg Tablet) 25 mg PO Q6H PRN PRN Reason: Pain, Moderate(Pain Scale 4-6) Last Admin: 01/06/24 20:41 Dose: 25 mg Trazodone HCl (Trazodone Hcl 50 Mg Tablet) 50 mg PO BEDTIME PRN PRN Reason: Insomnia Last Admin: 12/30/23 21:56 Dose: 50 mg Allergies Allergies Allergy/AdvReac Type Severity Reaction Status Date / Time atropine Allergy Unknown Shortness Verified 12/02/23 23:30 of Breath enoxaparin [From Lovenox] Allergy Unknown Unknown Verified 12/02/23 23:30 penicillin V Allergy Unknown Unknown Verified 03/19/23 07:30 pseudoephedrine [Aprodine] Allergy Unknown Unknown Verified 03/19/23 07:30 triprolidine [Aprodine] Allergy Unknown Unknown Verified 03/19/23 07:30 Assessment & Plan Assessment & Plan (1) Major depressive disorder with psychotic features: Status: Acute Code(s): F32.3 - Major depressive disorder, single episode, severe with psychotic features Assessment and Plan: 12/15/23: Continue tx plan Plan 73-year-old female with history of insulin-dependent type 2 diabetes, hypertension, hyperlipidemia, history of C diff colitis, hypothyroidism, heart failure preserved ejection fraction, cirrhosis admitted to Geriatric Psychiatry for catatonia with consult placed to hospitalist service for ect risk stratification. Pt with class II risk on revised cardiac risk index given history of CHF though is clinically euvolemic on exam. Lungs are clear. Has known but no murmurs heard on exam. Would recommend checking EKG to assess for ECT prolongation prior to ECT treatment. Unable to assess ROS. Based on RCRI and known history of ECT with good tolerance there does not appear to be any acute medical contraindication that should preclude patient from undergoing ect. Appropriate anesthesia precautions should be taken given known history of BASIL. Plan 1. Continue with antibiotics since the patient has been diagnosed with a UTI. 2. Continue with same treatment. 3. continue with ECT 4. Family meeting. 5. Orthopedic consult we will follow his recommendations. 6. Tramadol 25 p.r.n. q.6 hours moderate pain 7. Oxycodone 5 mg p.o. Q 4 hours p.r.n. severe pain Reason for continued inpatient stay Substantial Risk for: inability to function, rapid decompensation and med/psych decompensation Time Spent With Patient Time: Total time managing care of this patient today __20__ minutes.
[2024-01-07] MEDS: traMADoL HCL 50 MG TABLET 25 MG PO (15:33)
--- NOTE | 2024-01-07 16:23 | PC.NURSE ---
This insurance underwriter sales texted Dr. Yung via [employer], to let him know that she continues to c/o stomach pain and is seeping stool. Message read, answer pending.
--- NOTE | 2024-01-07 16:27 | HO.WOUND ---
Wound Consult: Initial Consult - New 73yr old?female admitted to [facility] on 12/02/23 to the Geriatric Behavioral Health Unit - See progress notes and H&P for detailed history.? Wound consult for Right Buttock Wound.? Patient agreeable to assessment and photo documentation. Right Buttock Etiology: ??Etiology unknown: Not consistent with pressure consider bruising and friction will continue to monitor Wound Bed: dark maroon purple irregular pattern with central partial thickness tissue loss - edges red and blanchable - Pattern not consistent with pressure - linear line not consistent with devices as no devices in use for this patient in this location. The patient does have significant bruising to the right arm and is noted to have a Right Proximal Humerus Fracture. Drainage / Odor: None noted Edges: ? irregular Brittany wound: ? Intact - Scar tissue and hypo and hyper-pigmentation noted No Induration, Fluctuance or Warmth noted Pain: reports significant pain to right shoulder Goals of Treatment: ? Foam dressing to allow for autolytic healing and protect from friction and moisture Inpatient wound nurse will continue to follow despite unknown etiology topical treatments remain the same for moist wound healing and off loading pressure. Healed Sacrum / Coccyx - no open tissue noted - patient remains at significant risk -preventative measures should still be employed - recommend continued use of JASSON mattress and sacral foam dressing. JASSON mattress in use, turns and repositions and off loading with pillows. Recommendations: 1. Turn and Reposition every 2 hours and as needed for patient comfort.? Use pillows or wedges to support off loading positions. 2. Off Load all bony prominences with use of pillows and heel boots if needed.? Apply Preventative foams where needed. ? 3. Monitor for incontinence and moisture control, use barrier creams when needed for prevention and treatment. 4. Provide adequate and supplemental nutrition.? 5. Order low air loss mattress. 6. When applicable maintain blood glucose levels per Providers order. 7. Coccyx / Sacrum - Off Load Pressure? - Cleanse with PH balance spray or wipes, pat dry. ?Apply sacral foam dressing to aid in off loading and protection from friction. Peel back and assess Q shift and change every 5 days and PRN. 8. Right Buttock - Cleanse with PH balanced wipes, pat dry. Apply foam dressing to site change every 5 days and PRN. Peel back and assess Q shift.
[2024-01-07 16:35] LABS: Glucose, Whole Blood 93 mg/dL (60-115)
[2024-01-07 19:57] LABS: Glucose, Whole Blood 188 mg/dL (60-115)
[2024-01-07 20:00] VITALS: BP 121/69; PULSE 79; RESP 16; TEMP 36.5; O2SAT 96
[2024-01-07] MEDS: Acetaminophen 325 MG TABLET 650 MG PO (21:00)
[2024-01-07] MEDS: Loratadine 10 MG TABLET PO (21:01)
[2024-01-07] MEDS: Mirtazapine 30 MG TABLET PO (21:01)
[2024-01-07] MEDS: Docusate Sodium 100 MG CAPSULE PO (21:01)
[2024-01-07] MEDS: Atorvastatin Calcium 10 MG TABLET PO (21:01)
[2024-01-07] MEDS: Insulin Lispro 100 UNIT/ML 3 ML VIAL SUBCUT (21:02)
[2024-01-08] VITALS (9 sets, daily range): BP systolic 127–167; BP diastolic 38–77; PULSE 77–109; RESP 16–18; TEMP 36.2–37; O2SAT 93–100
[2024-01-08 06:40] LABS: Glucose, Whole Blood 100 mg/dL (60-115)
--- NOTE | 2024-01-08 07:30 | MHC.SHP ---
Pre-Procedural Eval Section A - 24 Hr Update-Section A only Date of Service: 01/08/24 Changes since office visit: Yes New Medical Problems and Yes Changes in Medication; No Cold of Flu in the past 2 weeks and No Patient answered all questions The patient has been examined within 24 hours of the surgical procedure. The History & Physical has been completed within 30 days and I have reviewed it.: Yes Section B - Complete if H&P > 30 days Chief Complaint: Major depressive disorder, severe, recurrent Allergies: Allergies Allergy/AdvReac Type Severity Reaction Status Date / Time atropine Allergy Unknown Shortness Verified 12/02/23 23:30 of Breath enoxaparin [From Lovenox] Allergy Unknown Unknown Verified 12/02/23 23:30 penicillin V Allergy Unknown Unknown Verified 03/19/23 07:30 pseudoephedrine [Aprodine] Allergy Unknown Unknown Verified 03/19/23 07:30 triprolidine [Aprodine] Allergy Unknown Unknown Verified 03/19/23 07:30 Plan I have reviewed the history and physical and performed a pertinent physical examination on my patient. No changes have occurred unless specified. Time Spent With Patient Time: Total time managing care of this patient today ____ minutes.
--- NOTE | 2024-01-08 07:50 | HO.ECTPROC ---
ECT Procedure Note Diagnosis/Treatment Date of Service: 01/08/24 Diagnosis: Major Depressive Disorder and Catatonia Previous ECT Date: 01/01/24 Current Treatment Number: 10 Treatment: Series Interval Clinical Notes: pt with some r shoulder discomfort otherwise states ok mostly sedated reportedly doing well on the floor as usual treatment well modified complaints of shoulder pain prior to procedure Time: Total time managing care of this patient today ____ minutes. ECT Settings Device: THYMATRON DGx Electrode Placement: Rt temporal/ Lt frontal Program/Pulse Width: 0.50 Energy Percent: 100 Seizure Duration By EEG (in seconds): 20 Medications Administration General Anesthetic: Etomidate (12) Muscle Relaxant: Succinylcholine (60) Ancillary Medications Anti-emetics: Zofran - Pre ECT Miscillaneous Medications: Midazolam (1 mg) Airway Management Airway Management: Bag Mask Ventilation Treatment Recommendations No Changes Recommended: No change Notes: Would consider a maintenance protocol Pt Tolerated Procedure w/o Issue: Yes
[2024-01-08 08:59] LABS: Glucose, Whole Blood 162 mg/dL (60-115)
[2024-01-08] MEDS: Lidocaine 4 % Patch ADH..PATCH 1 PATCH TRANSDERMA (09:05)
[2024-01-08] MEDS: Insulin Glargine,Hum.rec.anlog 100 UNIT/ML 10 ML VIAL 12 UNIT SUBCUT ×2 (09:06→21:25)
[2024-01-08] MEDS: amLODIPine Besylate 5 MG TABLET PO (09:07)
[2024-01-08] MEDS: Multivitamin TABLET 1 TAB PO (09:07)
[2024-01-08] MEDS: Furosemide 20 MG TABLET PO (09:07)
[2024-01-08] MEDS: Losartan Potassium 50 MG TABLET 100 MG PO (09:07)
[2024-01-08] MEDS: Aspirin 81 MG TAB.CHEW PO (09:07)
[2024-01-08] MEDS: Magnesium Oxide 400 MG TABLET PO ×2 (09:08→21:26)
[2024-01-08] MEDS: Ferrous Sulfate 324 MG TABLET.DR PO (09:08)
[2024-01-08] MEDS: Omeprazole 20 MG CAPSULE.DR PO (09:09)
[2024-01-08] MEDS: Thiamine HCL 100 MG TABLET PO (09:09)
[2024-01-08] MEDS: Divalproex Sodium Sprinkles 125 MG CAP.DR.SPR 250 MG PO ×2 (09:10→21:27)
[2024-01-08] MEDS: Anastrozole 1 MG TABLET PO (09:10)
[2024-01-08] MEDS: traMADoL HCL 50 MG TABLET 25 MG PO (09:52)
[2024-01-08] MEDS: Sodium Phosphate,Mono-Dibasic 133 ML ENEMA PR (10:45)
[2024-01-08 11:31] LABS: Glucose, Whole Blood 181 mg/dL (60-115)
[2024-01-08] MEDS: Insulin Lispro 100 UNIT/ML 3 ML VIAL SUBCUT ×3 (12:26→21:24)
[2024-01-08] MEDS: Acetaminophen 325 MG TABLET 650 MG PO ×2 (12:27→21:34)
--- NOTE | 2024-01-08 14:29 | P.EN_ITS ---
Event Note Date of Service: 01/08/24 Event Note: 73 year old female admitted to geriatric psychiatry with consult placed to hospitalist service due to severe constipation . BM's not recorded in I&O. Per RN, last BM was Saturday but was small. Attempted BM this morning, noted to have stool ball. No associated nausea or vomiting. No abd pain. Has been taking docusate scheduled b.i.d. and has received 2 doses of milk of magnesia, last administered 01/04 and also received an enema on 01/04. She is on multiple nadiya cotics including oxycodone and tramadol. Recommendations: -KUB does not show evidence of SBO but shows moderate stool burden. Has fecal impaction of rectum. General surgery consult placed -Given lactulose 20g x1 after fecal disimpaction -Add maykel miralax daily. Continue docusate 100mg BID -Avoid use of fleet enemas given CKD stage 3 that has worsened slightly since being on the unit (no mei) -Add dulcolax daily prn and can continue milk of mag prn as first line -Encourage PO hydration -Encourage OOB -limit use of anticholinergics and narcotics if clinically appropriate Thank you for allowing me to participate in this consult. Signing off at this time. Please do not hesitate to call for further questions or for any acute medical issues. Time Spent With Patient Time: Total time managing care of this patient today ____ minutes.
--- NOTE | 2024-01-08 15:50 | HO.PSYCHPN ---
Subjective Subjective Date of Service: 01/08/24 Reason For Visit: Major depressive disorder, severe, recurrent Subjective Notes: Conditional Voluntary Healthcare Proxy: Yes Interim History: The nursing staff reported the patient went to ECT, she had been pleasant cooperative but she had been complaining of constipation. She had been in bed most of the time. On interview the patient reports chronic abdominal pain. We did a KUB and we are consulting surgery. Mental Status Exam Mental Status Exam Patient Appearance: Well Grooomed and Appropriate Patient Orientation: Person and Situation Level of Consciousness: Awake and Appropriate Patient Behavior: Guarded and Passive Mood Description: Calm Affect Description: Constricted Patient Cognition Impaired: Yes Ability to Follow Directions: Good Speech Pattern: Clear Hallucinations: None Delusions: Not Present Thought Process: Distracted and Slowed Thinking Thought Content: positive for [place] and positive for Poverty of Content Judgement: Fair Diagnostics Vital Signs (24Hr): Vital Signs - 24 hr 01/07/24 20:00 01/08/24 05:44 01/08/24 06:48 Temperature 97.7 F 97.3 F 97.1 F Pulse Rate 79 77 81 Respiratory Rate 16 16 16 Blood Pressure 121/69 127/60 167/65 H Pulse Oximetry 96 95 98 Oxygen Delivery Method Room Air Room Air Room Air Oxygen Flow Rate 01/08/24 07:50 01/08/24 07:55 01/08/24 08:00 Temperature 98.2 F Pulse Rate 81 103 H 99 Respiratory Rate 18 18 18 Blood Pressure 159/61 H 167/77 H 167/77 H Pulse Oximetry 100 99 98 Oxygen Delivery Method Nasal Cannula with ETCO2 Nasal Cannula with ETCO2 Room Air Oxygen Flow Rate 2 2 01/08/24 08:00 01/08/24 08:05 01/08/24 08:20 Temperature 98.6 F 98.2 F Pulse Rate 109 H 97 89 Respiratory Rate 16 18 18 Blood Pressure 131/64 160/38 H 160/61 H Pulse Oximetry 98 96 95 Oxygen Delivery Method Room Air Room Air Room Air Oxygen Flow Rate BMI result Body Mass Index 21.7 Labs 01/05/24 12:41 01/05/24 12:41 Labs: Laboratory Results - last 48 hr 01/06/24 01/06/24 01/07/24 16:20 19:58 06:25 POC Glucose 390 H* 258 H 105 01/07/24 01/07/24 01/07/24 11:15 16:29 19:52 POC Glucose 115 93 188 H 01/08/24 01/08/24 01/08/24 06:17 08:54 11:25 POC Glucose 100 162 H 181 H Imaging Radiology Impressions: ITS Impressions Chest X-Ray 12/03/23 12:20 IMPRESSION: 1. Chronic interstitial prominence without focal consolidative airspace opacity. 2. Densities along the left lower chest which may represent pleural calcifications versus soft tissue calcifications. Correlation with lateral radiograph could help further evaluate. Electronically signed by: Viral Smallwood MD 12/03/2023 01:33 PM EDT RP Head CT 12/03/23 13:17 IMPRESSION: 1. No acute intracranial abnormalities. No intracranial hemorrhage or mass effect. 2. Moderate small vessel ischemic changes in the hemispheric white matter. 3. 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 4. Age advanced cerebral and cerebellar involutional changes with prominent ventricles. Cannot definitively exclude a component of communicating hydrocephalus given the appearance. Head CT 12/10/23 21:05 IMPRESSION: No acute intracranial abnormality including hemorrhage, mass effect, hydrocephalus, or acute territorial edematous infarction. Electronically signed by: Juan Alberto Murdock MD 12/10/2023 10:07 PM EDT RP Shoulder X-Ray 01/01/24 09:08 IMPRESSION: Comminuted fracture of the right shoulder Electronically signed by: Sean Kirkpatrick MD 01/01/2024 10:25 AM EDT RP KUB X-Ray 01/05/24 04:50 IMPRESSION: Findings as above. Electronically signed by: Rakesh Garcia MD 01/05/2024 05:10 PM EDT RP Medications Medications Current Medications Acetaminophen (Acetaminophen 325 Mg Tablet) 650 mg PO Q6H PRN PRN Reason: Headache/Pain Mild Scale (1-3) Last Admin: 01/08/24 12:27 Dose: 650 mg Al Hydroxide/Mg Hydroxide (Magnesium Hydrox/Alum Hydrox 30 Ml Oral.Susp) 30 ml PO Q6H PRN PRN Reason: Heartburn/Nausea Amlodipine Besylate (Amlodipine Besylate 5 Mg Tablet) 5 mg PO DAILY [facility]; Protocol Last Admin: 01/08/24 09:07 Dose: 5 mg Anastrozole (Anastrozole 1 Mg Tablet) 1 mg PO DAILY [facility] Last Admin: 01/08/24 09:10 Dose: 1 mg Aspirin (Aspirin 81 Mg Tab.Chew) 81 mg PO DAILY [facility] Last Admin: 01/08/24 09:07 Dose: 81 mg Atorvastatin Calcium (Atorvastatin Calcium 10 Mg Tablet) 10 mg PO BEDTIME [facility] Last Admin: 01/07/24 21:01 Dose: 10 mg Bisacodyl (Bisacodyl 10 Mg Supp.Rect) 10 mg [place] DAILY PRN PRN Reason: constipation Divalproex Sodium (Divalproex Sodium Sprinkles 125 Mg Cap.) 250 mg PO BID [facility] Last Admin: 01/08/24 09:10 Dose: 250 mg Docusate Sodium (Docusate Sodium 100 Mg Capsule) 100 mg PO BEDTIME PRN PRN Reason: Constipation Last Admin: 01/07/24 21:01 Dose: 100 mg Docusate Sodium (Docusate Sodium 100 Mg Capsule) 100 mg PO BID [facility] Ferrous Sulfate (Ferrous Sulfate 324 Mg Tablet.) 324 mg PO DAILY [facility] Last Admin: 01/08/24 09:08 Dose: 324 mg Furosemide (Furosemide 20 Mg Tablet) 20 mg PO DAILY [facility]; Protocol Last Admin: 01/08/24 09:07 Dose: 20 mg Glucose (Glucose Gel 15 Gm Gel..Gram.) 15 gm PO Q15M PRN; Protocol PRN Reason: per Hypoglycemia Standing Ord. Insulin Glargine (Insulin Glargine,Hum.Rec.Anlog 100 Unit/Ml 10 Ml Vial) 12 unit SUBCUT BEDTIME [facility] Last Admin: 01/07/24 21:01 Dose: 12 unit Insulin Glargine (Insulin Glargine,Hum.Rec.Anlog 100 Unit/Ml 10 Ml Vial) 12 unit SUBCUT DAILY [facility] Last Admin: 01/08/24 09:06 Dose: 12 unit Insulin Human Lispro (Insulin Lispro 100 Unit/Ml 3 Ml Vial) 0 unit SUBCUT QIDACHS [facility]; Protocol Last Admin: 01/08/24 12:26 Dose: 2 unit Lidocaine (Lidocaine 4 % Patch Adh..Patch) 1 patch TRANSDERMA DAILY [facility]; Protocol Last Admin: 01/08/24 09:05 Dose: 1 patch Loratadine (Loratadine 10 Mg Tablet) 10 mg PO BEDTIME [facility] Last Admin: 01/07/24 21:01 Dose: 10 mg Losartan Potassium (Losartan Potassium 50 Mg Tablet) 100 mg PO DAILY [facility]; Protocol Last Admin: 01/08/24 09:07 Dose: 100 mg Magnesium Hydroxide (Milk Of Magnesia 30 Ml Oral.Susp) 30 ml PO DAILY PRN PRN Reason: Constipation Last Admin: 01/05/24 10:03 Dose: 30 ml Magnesium Oxide (Magnesium Oxide 400 Mg Tablet) 400 mg PO BID [facility] Last Admin: 01/08/24 09:08 Dose: 400 mg Mirtazapine (Mirtazapine 30 Mg Tablet) 30 mg PO BEDTIME [facility] Last Admin: 01/07/24 21:01 Dose: 30 mg Multivitamins/Vitamin C (Multivitamin Tablet) 1 tab PO DAILY [facility] Last Admin: 01/08/24 09:07 Dose: 1 tab Naloxone HCl (Naloxone Hcl 0.4 Mg/Ml Vial) 0.04 mg IVPUSH Q5M PRN PRN Reason: Excessive sedation or RR < 8 Naloxone HCl (Naloxone Hcl 0.4 Mg/Ml Vial) 0.04 mg IVPUSH Q5M PRN PRN Reason: Excessive sedation or RR < 8 Nicotine Polacrilex (Nicotine Polacrilex 2 Mg Gum) 4 mg BUCCAL Q2H PRN PRN Reason: Nicotine Cravings Omeprazole (Omeprazole 20 Mg Capsule.Dr) 20 mg PO DAILY@0630 [facility] Last Admin: 01/08/24 09:09 Dose: 20 mg Oxycodone HCl (Oxycodone Hcl Immed Release 5 Mg Tablet) 5 mg PO Q4H PRN PRN Reason: Pain, Severe (Pain Scale 7-10) Last Admin: 01/07/24 21:00 Dose: 5 mg Polyethylene Glycol (Polyethylene Glycol 3350 17 Gm Powd.Pack) 17 gm PO DAILY [facility] Risperidone (Risperidone 0.5 Mg Tablet) 0.5 mg PO BID PRN PRN Reason: Restlessness Senna (Sennosides 8.6 Mg Tablet) 17.2 mg PO BEDTIME [facility] Sodium Chloride (0.9 % Sodium Chloride Flush 3 Ml Syringe) 3 ml IVFLUSH QSHIFT [facility] Last Admin: 01/08/24 09:20 Dose: Not Given Thiamine HCl (Thiamine Hcl 100 Mg Tablet) 100 mg PO DAILY [facility] Last Admin: 01/08/24 09:09 Dose: 100 mg Tramadol HCl (Tramadol Hcl 50 Mg Tablet) 25 mg PO Q6H PRN PRN Reason: Pain, Moderate(Pain Scale 4-6) Last Admin: 01/08/24 09:52 Dose: 25 mg Trazodone HCl (Trazodone Hcl 50 Mg Tablet) 50 mg PO BEDTIME PRN PRN Reason: Insomnia Last Admin: 12/30/23 21:56 Dose: 50 mg Allergies Allergies Allergy/AdvReac Type Severity Reaction Status Date / Time atropine Allergy Unknown Shortness Verified 12/02/23 23:30 of Breath enoxaparin [From Lovenox] Allergy Unknown Unknown Verified 12/02/23 23:30 penicillin V Allergy Unknown Unknown Verified 03/19/23 07:30 pseudoephedrine [Aprodine] Allergy Unknown Unknown Verified 03/19/23 07:30 triprolidine [Aprodine] Allergy Unknown Unknown Verified 03/19/23 07:30 Assessment & Plan Assessment & Plan (1) Major depressive disorder with psychotic features: Status: Acute Code(s): F32.3 - Major depressive disorder, single episode, severe with psychotic features Assessment and Plan: 12/15/23: Continue tx plan Plan 73-year-old female with history of insulin-dependent type 2 diabetes, hypertension, hyperlipidemia, history of C diff colitis, hypothyroidism, heart failure preserved ejection fraction, cirrhosis admitted to [facility] for catatonia with consult placed to hospitalist service for ect risk stratification. Pt with class II risk on revised cardiac risk index given history of CHF though is clinically euvolemic on exam. Lungs are clear. Has known but no murmurs heard on exam. Would recommend checking EKG to assess for ECT prolongation prior to ECT treatment. Unable to assess ROS. Based on RCRI and known history of ECT with good tolerance there does not appear to be any acute medical contraindication that should preclude patient from undergoing ect. Appropriate anesthesia precautions should be taken given known history of ABSIL. Plan 1. Continue with antibiotics since the patient has been diagnosed with a UTI. 2. Continue with same treatment. 3. continue with ECT 4. Family meeting. 5. Orthopedic consult we will follow his recommendations. 6. Tramadol 25 p.r.n. q.6 hours moderate pain 7. Oxycodone 5 mg p.o. Q 4 hours p.r.n. severe pain 8. Consult to surgery for possible abdominal obstruction Reason for continued inpatient stay Substantial Risk for: inability to function, rapid decompensation and med/psych decompensation Time Spent With Patient Time: Total time managing care of this patient today __20__ minutes.
[2024-01-08] MEDS: oxyCODONE HCl Immed Release 5 MG TABLET PO (16:00)
[2024-01-08 16:39] LABS: Glucose, Whole Blood 301 mg/dL (60-115)
[2024-01-08] MEDS: 0.9 % Sodium Chloride Flush 3 ML SYRINGE IVFLUSH (16:53)
--- NOTE | 2024-01-08 17:27 | P.CONGS_ITS ---
History of Present Illness Consult details Consult date: 01/08/24 Narrative: 73-year-old female referred for fecal impaction. She has a long history of catatonia, major depressive disorder with psychotic features. She therefore has been on anticholinergic psych medications She apparently had complained of severe constipation. A KUB was therefore done which showed an impactions so I was consulted. Review of Systems 2 Constitutional: Constitutional: Denies chills and Denies fever(s) Cardiovascular: Cardiovascular: Denies chest pain Respiratory: Respiratory: Denies cough Gastrointestinal: Gastrointestinal: Reports constipation PMFSH Past Medical History Medical History Fecal impaction Cirrhosis Hypothyroidism Breast cancer Hx of Clostridium difficile infection (HFpEF) heart failure with preserved ejection fraction Murmur CKD (chronic kidney disease) stage 3, GFR 30-59 ml/min Vitamin D deficiency HLD (hyperlipidemia) HTN (hypertension) T2DM (type 2 diabetes mellitus) Family History Family History Father Alzheimer disease Stroke Mother Breast cancer Surgical History Surgical History Hx of cataract surgery History of lumpectomy of right breast History of mastectomy Social History Social History Household Members: Family Household Members Other:: son Alcohol intake: never Comment: 1:1 observation Patient Tobacco Use Status: Never used Tobacco Use of substances other than those prescribed or required for medical reasons: Unable to respond Last Used Substance Other:: unknown, unable to respond, she is nonsensical and delusional when she does Currently Displaying Signs/Symptoms of Drug Intoxication Withdrawal: No Other Past Substance Use Problem:: unknown, unable to respond, she is nonsensical and delusional when she does Spiritual Healthcare Practices: unknown, unable to respond, she is nonsensical and delusional when she does respond Zoroastrianism Healthcare Practices: unknown, unable to respond, she is nonsensical and delusional when she does respond Cultural Healthcare Practices: unknown, unable to respond, she is nonsensical and delusional when she does respond Advance Directives: No Advance Directives Information Provided: No Do you have thoughts of harming others: None Do you have a plan to hurt others: No Plan Recently lost weight without trying: Unsure Patient : No : No Poor oral hygiene: No service: No Sexual orientation: Straight/Heterosexual Meds Allergies Allergy/AdvReac Type Severity Reaction Status Date / Time atropine Allergy Unknown Shortness Verified 12/02/23 23:30 of Breath enoxaparin [From Lovenox] Allergy Unknown Unknown Verified 12/02/23 23:30 penicillin V Allergy Unknown Unknown Verified 03/19/23 07:30 pseudoephedrine [Aprodine] Allergy Unknown Unknown Verified 03/19/23 07:30 triprolidine [Aprodine] Allergy Unknown Unknown Verified 03/19/23 07:30 Active Medications: Current Medications Acetaminophen (Acetaminophen 325 Mg Tablet) 650 mg PO Q6H PRN PRN Reason: Headache/Pain Mild Scale (1-3) Last Admin: 01/08/24 12:27 Dose: 650 mg Al Hydroxide/Mg Hydroxide (Magnesium Hydrox/Alum Hydrox 30 Ml Oral.Susp) 30 ml PO Q6H PRN PRN Reason: Heartburn/Nausea Amlodipine Besylate (Amlodipine Besylate 5 Mg Tablet) 5 mg PO DAILY [facility]; Protocol Last Admin: 01/08/24 09:07 Dose: 5 mg Anastrozole (Anastrozole 1 Mg Tablet) 1 mg PO DAILY [facility] Last Admin: 01/08/24 09:10 Dose: 1 mg Aspirin (Aspirin 81 Mg Tab.Chew) 81 mg PO DAILY [facility] Last Admin: 01/08/24 09:07 Dose: 81 mg Atorvastatin Calcium (Atorvastatin Calcium 10 Mg Tablet) 10 mg PO BEDTIME [facility] Last Admin: 01/07/24 21:01 Dose: 10 mg Bisacodyl (Bisacodyl 10 Mg Supp.Rect) 10 mg [place] DAILY PRN PRN Reason: constipation Divalproex Sodium (Divalproex Sodium Sprinkles 125 Mg Cap) 250 mg PO BID [facility] Last Admin: 01/08/24 09:10 Dose: 250 mg Docusate Sodium (Docusate Sodium 100 Mg Capsule) 100 mg PO BEDTIME PRN PRN Reason: Constipation Last Admin: 01/07/24 21:01 Dose: 100 mg Docusate Sodium (Docusate Sodium 100 Mg Capsule) 100 mg PO BID [facility] Ferrous Sulfate (Ferrous Sulfate 324 Mg Linsey.) 324 mg PO DAILY [facility] Last Admin: 01/08/24 09:08 Dose: 324 mg Furosemide (Furosemide 20 Mg Tablet) 20 mg PO DAILY [facility]; Protocol Last Admin: 01/08/24 09:07 Dose: 20 mg Glucose (Glucose Gel 15 Gm Gel..Gram.) 15 gm PO Q15M PRN; Protocol PRN Reason: per Hypoglycemia Standing Ord. Insulin Glargine (Insulin Glargine,Hum.Rec.Anlog 100 Unit/Ml 10 Ml Vial) 12 unit SUBCUT BEDTIME [facility] Last Admin: 01/07/24 21:01 Dose: 12 unit Insulin Glargine (Insulin Glargine,Hum.Rec.Anlog 100 Unit/Ml 10 Ml Vial) 12 unit SUBCUT DAILY [facility] Last Admin: 01/08/24 09:06 Dose: 12 unit Insulin Human Lispro (Insulin Lispro 100 Unit/Ml 3 Ml Vial) 0 unit SUBCUT QIDACHS [facility]; Protocol Last Admin: 01/08/24 16:57 Dose: 12 unit Lidocaine (Lidocaine 4 % Patch Adh..Patch) 1 patch TRANSDERMA DAILY [facility]; Protocol Last Admin: 01/08/24 09:05 Dose: 1 patch Loratadine (Loratadine 10 Mg Tablet) 10 mg PO BEDTIME [facility] Last Admin: 01/07/24 21:01 Dose: 10 mg Losartan Potassium (Losartan Potassium 50 Mg Tablet) 100 mg PO DAILY [facility]; Protocol Last Admin: 01/08/24 09:07 Dose: 100 mg Magnesium Hydroxide (Milk Of Magnesia 30 Ml Oral.Susp) 30 ml PO DAILY PRN PRN Reason: Constipation Last Admin: 01/05/24 10:03 Dose: 30 ml Magnesium Oxide (Magnesium Oxide 400 Mg Tablet) 400 mg PO BID [facility] Last Admin: 01/08/24 09:08 Dose: 400 mg Mirtazapine (Mirtazapine 30 Mg Tablet) 30 mg PO BEDTIME [facility] Last Admin: 01/07/24 21:01 Dose: 30 mg Multivitamins/Vitamin C (Multivitamin Tablet) 1 tab PO DAILY [facility] Last Admin: 01/08/24 09:07 Dose: 1 tab Naloxone HCl (Naloxone Hcl 0.4 Mg/Ml Vial) 0.04 mg IVPUSH Q5M PRN PRN Reason: Excessive sedation or RR < 8 Naloxone HCl (Naloxone Hcl 0.4 Mg/Ml Vial) 0.04 mg IVPUSH Q5M PRN PRN Reason: Excessive sedation or RR < 8 Nicotine Polacrilex (Nicotine Polacrilex 2 Mg Gum) 4 mg BUCCAL Q2H PRN PRN Reason: Nicotine Cravings Omeprazole (Omeprazole 20 Mg Capsule.Dr) 20 mg PO DAILY@0630 [facility] Last Admin: 01/08/24 09:09 Dose: 20 mg Oxycodone HCl (Oxycodone Hcl Immed Release 5 Mg Tablet) 5 mg PO Q4H PRN PRN Reason: Pain, Severe (Pain Scale 7-10) Last Admin: 01/08/24 16:00 Dose: 5 mg Polyethylene Glycol (Polyethylene Glycol 3350 17 Gm Powd.Pack) 17 gm PO DAILY [facility] Risperidone (Risperidone 0.5 Mg Tablet) 0.5 mg PO BID PRN PRN Reason: Restlessness Senna (Sennosides 8.6 Mg Tablet) 17.2 mg PO BEDTIME [facility] Sodium Chloride (0.9 % Sodium Chloride Flush 3 Ml Syringe) 3 ml IVFLUSH QSHIFT [facility] Last Admin: 01/08/24 16:53 Dose: 3 ml Thiamine HCl (Thiamine Hcl 100 Mg Tablet) 100 mg PO DAILY [facility] Last Admin: 01/08/24 09:09 Dose: 100 mg Tramadol HCl (Tramadol Hcl 50 Mg Tablet) 25 mg PO Q6H PRN PRN Reason: Pain, Moderate(Pain Scale 4-6) Last Admin: 01/08/24 09:52 Dose: 25 mg Trazodone HCl (Trazodone Hcl 50 Mg Tablet) 50 mg PO BEDTIME PRN PRN Reason: Insomnia Last Admin: 12/30/23 21:56 Dose: 50 mg Physical Exam 2 Vital Signs: Vital Signs: Last Vital Signs Temp 98.2 F 01/08/24 08:20 Pulse 89 01/08/24 08:20 Resp 18 01/08/24 08:20 BP 160/61 H 01/08/24 08:20 Pulse Ox 95 01/08/24 08:20 O2 Del Method Room Air 01/08/24 08:20 O2 Flow Rate 2 01/08/24 07:55 BMI result Body Mass Index 21.7 Const: General: no acute distress Resp: Effort & Inspection: normal respiratory effort GI: Other: Rectal exam shows large amount of very thick, dry, hard stools in the rectal vault Palpation (GI): Soft to palpation, not firm and no guarding Results Labs 01/11/24 12:40 01/11/24 12:40 Labs: Abnormal lab results 01/07/24 01/08/24 01/08/24 Range/Units 19:52 08:54 11:25 POC Glucose 188 H 162 H 181 H (60-115) mg/dL 01/08/24 Range/Units 16:34 POC Glucose 301 H (60-115) mg/dL Urine 12/03/23 12/29/23 Range/Units 16:05 17:30 Urine Color Yellow Yellow Urine Appearance Cloudy Cloudy Urine pH 5.5 7.5 (5.0-9.0) Ur Specific [place] 1.020 1.020 (1.005-1.025) Urine Protein 30 (1+) H Trace (Neg-Trace) mg/dL Urine Glucose (UA) Negative Negative (Negative) mg/dL All other labs normal. Assessment and Plan (1) Fecal impaction: Status: Acute She has chronic constipation with fecal impaction. I did manual disimpaction at bedside. She was in left lateral decubitus position. Large amounts of very hard thick dry stools were removed from the rectal vault. I would recommend continuing with stool softeners including MiraLax, Colace, and oral fluids. She can have a Fleet enema as well I may need to repeat the disimpaction in about 2 days. Her abdominal exam is otherwise benign. (2) Type 2 diabetes mellitus with unspecified complications: Status: Acute Procedures Date of Service Date of Service: 01/13/24
[2024-01-08 17:52] LABS: MANUAL DIFF FLAG NO
[2024-01-08 17:55] LABS: Basophils Percent Auto 0.2 % (0-2); Eosinophils Percent Auto 0.9 % (0-4); Hemoglobin 8.2 g/dl (12.0-16.0); Imm Gran Abs Auto 0.02 X10*3/uL (0.00-0.03); Imm Gran Pct Auto 0.5 % (0.0-0.4); Lymphocytes Absolute Auto 0.7 X10*3/uL (1.2-4.9); Lymphocytes Percent Auto 15.4 % (20-40); Mean Corpuscular HGB Conc 32.8 g/dl (31.0-35.0); Mean Corpuscular Hemoglobin 28.1 pg (27.0-33.0); Mean Corpuscular Volume 85.6 fL (80.0-98.0); Mean Platelet Volume 8.4 fL (9.4-12.3); Monocytes Absolute Auto 0.3 X10*3/uL (0.1-1.2); Monocytes Percent Auto 7.7 % (2-11); Neutrophils Absolute Auto 3.3 x10*3/uL (2.0-8.3); Neutrophils Percent Auto 75.3 % (45-73); Platelet Count 139 X10*3/uL (160-400); Red Blood Count 2.92 X10*6/uL (4.20-5.50); White Blood Count 4.4 X10*3/uL (4.8-10.8)
[2024-01-08 18:07] LABS: Anion Gap 11 (12-20); Blood Urea Nitrogen 23 mg/dL (9-16); Calcium 9.4 mg/dL (8.4-10.2); Carbon Dioxide 29 mmol/L (22-29); Chloride 99 mmol/L (96-108); Creatinine Clr Calc Pharmacy 32.8; Estimated Glomerular Filt Rate 53; Glucose Random 303 mg/dL (60-115); Potassium 4.1 mmol/L (3.3-5.1); Sodium 135 mmol/L (135-145)
[2024-01-08 19:44] LABS: Glucose, Whole Blood 193 mg/dL (60-115)
[2024-01-08] MEDS: Sennosides 8.6 MG TABLET 17.2 MG PO (21:26)
[2024-01-08] MEDS: Milk of Magnesia 30 ML ORAL.SUSP PO (21:26)
[2024-01-08] MEDS: Docusate Sodium 100 MG CAPSULE PO (21:27)
[2024-01-08] MEDS: Loratadine 10 MG TABLET PO (21:27)
[2024-01-08] MEDS: Mirtazapine 30 MG TABLET PO (21:27)
[2024-01-08] MEDS: Atorvastatin Calcium 10 MG TABLET PO (21:27)
[2024-01-09] MEDS: 0.9 % Sodium Chloride Flush 3 ML SYRINGE IVFLUSH ×3 (00:20→16:57)
[2024-01-09] MEDS: Acetaminophen 325 MG TABLET 650 MG PO (06:03)
[2024-01-09] MEDS: Omeprazole 20 MG CAPSULE.DR PO (06:04)
[2024-01-09 07:02] LABS: Glucose, Whole Blood 80 mg/dL (60-115)
[2024-01-09 08:00] VITALS: BP 131/62; PULSE 70; RESP 16; TEMP 37; O2SAT 95
[2024-01-09 08:16] LABS: Glucose, Whole Blood 116 mg/dL (60-115)
[2024-01-09] MEDS: Docusate Sodium 100 MG CAPSULE PO ×2 (09:22→22:26)
[2024-01-09] MEDS: Ferrous Sulfate 324 MG TABLET.DR PO (09:22)
[2024-01-09] MEDS: Losartan Potassium 50 MG TABLET 100 MG PO (09:23)
[2024-01-09] MEDS: Multivitamin TABLET 1 TAB PO (09:23)
[2024-01-09] MEDS: Magnesium Oxide 400 MG TABLET PO ×2 (09:26→22:27)
[2024-01-09] MEDS: Thiamine HCL 100 MG TABLET PO (09:26)
[2024-01-09] MEDS: amLODIPine Besylate 5 MG TABLET PO (09:27)
[2024-01-09] MEDS: Aspirin 81 MG TAB.CHEW PO (09:27)
[2024-01-09] MEDS: Furosemide 20 MG TABLET PO (09:28)
[2024-01-09] MEDS: Anastrozole 1 MG TABLET PO (09:28)
[2024-01-09] MEDS: polyethylene glycoL 3350 17 GM POWD.PACK PO (09:32)
[2024-01-09] MEDS: Lidocaine 4 % Patch ADH..PATCH 1 PATCH TRANSDERMA (09:34)
[2024-01-09] MEDS: Insulin Glargine,Hum.rec.anlog 100 UNIT/ML 10 ML VIAL 12 UNIT SUBCUT (09:38)
[2024-01-09] MEDS: Divalproex Sodium Sprinkles 125 MG CAP.DR.SPR 250 MG PO ×2 (10:00→22:26)
[2024-01-09 11:35] LABS: Glucose, Whole Blood 369 mg/dL (60-115)
[2024-01-09] MEDS: Insulin Lispro 100 UNIT/ML 3 ML VIAL SUBCUT ×2 (11:43→16:56)
--- NOTE | 2024-01-09 11:58 | PC.NURSE ---
Blood sugar of 369 - [address] of insulin given[address] Dr Yung made aware.
--- NOTE | 2024-01-09 12:14 | PC.NURSE ---
Pt had a very large bowel movement/incontinence episode at about 11:45. Pt was changed and is wearing clean johnnies. Dr. Yung made aware of bowel movement and said to hold the enema.
[2024-01-09 13:09] VITALS: BMI 21.9
--- NOTE | 2024-01-09 13:55 | P.PNPSI_ITS ---
Subjective Subjective Date of Service: 01/09/24 Reason For Visit: Major depressive disorder, severe, recurrent Subjective Notes: Conditional Voluntary Interim History: The nursing staff reported that her fasting blood sugars have been slightly high. She was seen by surgery due to the constipation but finally she was able to have a bowel movement the middle of the day. On interview the patient denies new symptoms still feeling better. We are going to call her family 4 start working on discharge planning tomorrow after ECT Mental Status Exam Mental Status Exam Patient Appearance: Well Grooomed and Appropriate Patient Orientation: Person and Situation Level of Consciousness: Awake and Appropriate Patient Behavior: Appropriate and Cooperative Mood Description: Withdrawn Affect Description: Constricted Patient Cognition Impaired: Yes Ability to Follow Directions: Good Speech Pattern: Clear Hallucinations: None Delusions: Not Present Thought Process: Distracted and Slowed Thinking Thought Content: positive for [place] and positive for Poverty of Content Judgement: Fair Diagnostics Vital Signs (24Hr): Vital Signs - 24 hr 01/08/24 20:00 01/09/24 08:00 Temperature 97.1 F 98.6 F Pulse Rate 80 70 Respiratory Rate 16 16 Blood Pressure 131/59 L 131/62 Pulse Oximetry 93 95 Oxygen Delivery Method Room Air Room Air BMI result Body Mass Index 21.9 Labs 01/08/24 17:48 01/08/24 17:48 Labs: Laboratory Results - last 48 hr 01/07/24 01/07/24 01/08/24 16:29 19:52 06:17 WBC RBC Hgb Hct MCV MCH MCHC RDW Plt Count MPV Immature Gran % (Auto) Neut % (Auto) Lymph % (Auto) Dale % (Auto) Eos % (Auto) Baso % (Auto) Lymph # (Auto) Dale # (Auto) Eos # (Auto) Baso # (Auto) Abs Immat Gran (auto) Absolute Neuts (auto) Absolute Nucleated RBC Nucleated RBC % (auto) Sodium Potassium Chloride Carbon Dioxide Anion Gap BUN Creatinine Estim Creat Clear Calc Estimated GFR POC Glucose 93 188 H 100 Random Glucose Calcium 01/08/24 01/08/24 01/08/24 08:54 11:25 16:34 WBC RBC Hgb Hct MCV MCH MCHC RDW Plt Count MPV Immature Gran % (Auto) Neut % (Auto) Lymph % (Auto) Dale % (Auto) Eos % (Auto) Baso % (Auto) Lymph # (Auto) Dale # (Auto) Eos # (Auto) Baso # (Auto) Abs Immat Gran (auto) Absolute Neuts (auto) Absolute Nucleated RBC Nucleated RBC % (auto) Sodium Potassium Chloride Carbon Dioxide Anion Gap BUN Creatinine Estim Creat Clear Calc Estimated GFR POC Glucose 162 H 181 H 301 H Random Glucose Calcium 01/08/24 01/08/24 01/09/24 17:48 19:40 06:29 WBC 4.4 L RBC 2.92 L Hgb 8.2 L Hct 25.0 L MCV 85.6 MCH 28.1 MCHC 32.8 RDW 15.0 Plt Count 139 L MPV 8.4 L Immature Gran % (Auto) 0.5 H Neut % (Auto) 75.3 H Lymph % (Auto) 15.4 L Dale % (Auto) 7.7 Eos % (Auto) 0.9 Baso % (Auto) 0.2 Lymph # (Auto) 0.7 L Dale # (Auto) 0.3 Eos # (Auto) 0.0 Baso # (Auto) 0.0 Abs Immat Gran (auto) 0.02 Absolute Neuts (auto) 3.3 Absolute Nucleated RBC 0.000 Nucleated RBC % (auto) 0.0 Sodium 135 Potassium 4.1 Chloride 99 Carbon Dioxide 29 Anion Gap 11 L BUN 23 H Creatinine 1.01 Estim Creat Clear Calc 32.8 Estimated GFR 53 POC Glucose 193 H 80 Random Glucose 303 H Calcium 9.4 01/09/24 01/09/24 08:08 11:30 WBC RBC Hgb Hct MCV MCH MCHC RDW Plt Count MPV Immature Gran % (Auto) Neut % (Auto) Lymph % (Auto) Dale % (Auto) Eos % (Auto) Baso % (Auto) Lymph # (Auto) Dale # (Auto) Eos # (Auto) Baso # (Auto) Abs Immat Gran (auto) Absolute Neuts (auto) Absolute Nucleated RBC Nucleated RBC % (auto) Sodium Potassium Chloride Carbon Dioxide Anion Gap BUN Creatinine Estim Creat Clear Calc Estimated GFR POC Glucose 116 H 369 H* Random Glucose Calcium Imaging Radiology Impressions: ITS Impressions Chest X-Ray 12/03/23 12:20 IMPRESSION: 1. Chronic interstitial prominence without focal consolidative airspace opacity. 2. Densities along the left lower chest which may represent pleural calcifications versus soft tissue calcifications. Correlation with lateral radiograph could help further evaluate. Electronically signed by: Viral Smallwood MD 12/03/2023 01:33 PM EDT RP Head CT 12/03/23 13:17 IMPRESSION: 1. No acute intracranial abnormalities. No intracranial hemorrhage or mass effect. 2. Moderate small vessel ischemic changes in the hemispheric white matter. 3. 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 4. Age advanced cerebral and cerebellar involutional changes with prominent ventricles. Cannot definitively exclude a component of communicating hydrocephalus given the appearance. Head CT 12/10/23 21:05 IMPRESSION: No acute intracranial abnormality including hemorrhage, mass effect, hydrocephalus, or acute territorial edematous infarction. Electronically signed by: Juan Alberto Murdock MD 12/10/2023 10:07 PM EDT RP Shoulder X-Ray 01/01/24 09:08 IMPRESSION: Comminuted fracture of the right shoulder Electronically signed by: Sean Kirkpatrick MD 01/01/2024 10:25 AM EDT RP KUB X-Ray 01/05/24 04:50 IMPRESSION: Findings as above. Electronically signed by: Rakesh Garcia MD 01/05/2024 05:10 PM EDT RP KUB X-Ray 01/08/24 11:50 IMPRESSION: No evidence of bowel obstruction. Moderate stool burden. Electronically signed by: John Purdy MD 01/08/2024 07:58 PM EDT RP Medications Medications Current Medications Acetaminophen (Acetaminophen 325 Mg Tablet) 650 mg PO Q6H PRN PRN Reason: Headache/Pain Mild Scale (1-3) Last Admin: 01/09/24 06:03 Dose: 650 mg Al Hydroxide/Mg Hydroxide (Magnesium Hydrox/Alum Hydrox 30 Ml Oral.Susp) 30 ml PO Q6H PRN PRN Reason: Heartburn/Nausea Amlodipine Besylate (Amlodipine Besylate 5 Mg Tablet) 5 mg PO DAILY [facility]; Protocol Last Admin: 01/09/24 09:27 Dose: 5 mg Anastrozole (Anastrozole 1 Mg Tablet) 1 mg PO DAILY [facility] Last Admin: 01/09/24 09:28 Dose: 1 mg Aspirin (Aspirin 81 Mg Tab.Chew) 81 mg PO DAILY [facility] Last Admin: 01/09/24 09:27 Dose: 81 mg Atorvastatin Calcium (Atorvastatin Calcium 10 Mg Tablet) 10 mg PO BEDTIME [facility] Last Admin: 01/08/24 21:27 Dose: 10 mg Bisacodyl (Bisacodyl 10 Mg Supp.Rect) 10 mg ID DAILY PRN PRN Reason: constipation Divalproex Sodium (Divalproex Sodium Sprinkles 125 Mg Cap.DrPhillipSpr) 250 mg PO BID [facility] Last Admin: 01/09/24 10:00 Dose: 250 mg Docusate Sodium (Docusate Sodium 100 Mg Capsule) 100 mg PO BEDTIME PRN PRN Reason: Constipation Last Admin: 01/07/24 21:01 Dose: 100 mg Docusate Sodium (Docusate Sodium 100 Mg Capsule) 100 mg PO BID [facility] Last Admin: 01/09/24 09:22 Dose: 100 mg Ferrous Sulfate (Ferrous Sulfate 324 Mg Tablet.Dr) 324 mg PO DAILY [facility] Last Admin: 01/09/24 09:22 Dose: 324 mg Furosemide (Furosemide 20 Mg Tablet) 20 mg PO DAILY [facility]; Protocol Last Admin: 01/09/24 09:28 Dose: 20 mg Glucose (Glucose Gel 15 Gm Gel..Gram.) 15 gm PO Q15M PRN; Protocol PRN Reason: per Hypoglycemia Standing Ord. Insulin Glargine (Insulin Glargine,Hum.Rec.Anlog 100 Unit/Ml 10 Ml Vial) 12 unit SUBCUT BEDTIME [facility] Last Admin: 01/08/24 21:25 Dose: 12 unit Insulin Glargine (Insulin Glargine,Hum.Rec.Anlog 100 Unit/Ml 10 Ml Vial) 12 unit SUBCUT DAILY [facility] Last Admin: 01/09/24 09:38 Dose: 12 unit Insulin Human Lispro (Insulin Lispro 100 Unit/Ml 3 Ml Vial) 0 unit SUBCUT QIDACHS [facility]; Protocol Last Admin: 01/09/24 11:43 Dose: 14 unit Lidocaine (Lidocaine 4 % Patch Adh..Patch) 1 patch TRANSDERMA DAILY [facility]; Protocol Last Admin: 01/09/24 09:34 Dose: 1 patch Loratadine (Loratadine 10 Mg Tablet) 10 mg PO BEDTIME [facility] Last Admin: 01/08/24 21:27 Dose: 10 mg Losartan Potassium (Losartan Potassium 50 Mg Tablet) 100 mg PO DAILY [facility]; Protocol Last Admin: 01/09/24 09:23 Dose: 100 mg Magnesium Hydroxide (Milk Of Magnesia 30 Ml Oral.Susp) 30 ml PO DAILY PRN PRN Reason: Constipation Last Admin: 01/08/24 21:26 Dose: 30 ml Magnesium Oxide (Magnesium Oxide 400 Mg Tablet) 400 mg PO BID [facility] Last Admin: 01/09/24 09:26 Dose: 400 mg Mirtazapine (Mirtazapine 30 Mg Tablet) 30 mg PO BEDTIME [facility] Last Admin: 01/08/24 21:27 Dose: 30 mg Multivitamins/Vitamin C (Multivitamin Tablet) 1 tab PO DAILY [facility] Last Admin: 01/09/24 09:23 Dose: 1 tab Naloxone HCl (Naloxone Hcl 0.4 Mg/Ml Vial) 0.04 mg IVPUSH Q5M PRN PRN Reason: Excessive sedation or RR < 8 Naloxone HCl (Naloxone Hcl 0.4 Mg/Ml Vial) 0.04 mg IVPUSH Q5M PRN PRN Reason: Excessive sedation or RR < 8 Nicotine Polacrilex (Nicotine Polacrilex 2 Mg Gum) 4 mg BUCCAL Q2H PRN PRN Reason: Nicotine Cravings Omeprazole (Omeprazole 20 Mg Capsule.Dr) 20 mg PO DAILY@0630 [facility] Last Admin: 01/09/24 06:04 Dose: 20 mg Oxycodone HCl (Oxycodone Hcl Immed Release 5 Mg Tablet) 5 mg PO Q4H PRN PRN Reason: Pain, Severe (Pain Scale 7-10) Last Admin: 01/08/24 16:00 Dose: 5 mg Polyethylene Glycol (Polyethylene Glycol 3350 17 Gm Powd.Pack) 17 gm PO DAILY [facility] Last Admin: 01/09/24 09:32 Dose: 17 gm Risperidone (Risperidone 0.5 Mg Tablet) 0.5 mg PO BID PRN PRN Reason: Restlessness Senna (Sennosides 8.6 Mg Tablet) 17.2 mg PO BEDTIME [facility] Last Admin: 01/08/24 21:26 Dose: 17.2 mg Sodium Chloride (0.9 % Sodium Chloride Flush 3 Ml Syringe) 3 ml IVFLUSH QSHIFT [facility] Last Admin: 01/09/24 10:54 Dose: 3 ml Thiamine HCl (Thiamine Hcl 100 Mg Tablet) 100 mg PO DAILY [facility] Last Admin: 01/09/24 09:26 Dose: 100 mg Tramadol HCl (Tramadol Hcl 50 Mg Tablet) 25 mg PO Q6H PRN PRN Reason: Pain, Moderate(Pain Scale 4-6) Last Admin: 01/08/24 09:52 Dose: 25 mg Trazodone HCl (Trazodone Hcl 50 Mg Tablet) 50 mg PO BEDTIME PRN PRN Reason: Insomnia Last Admin: 12/30/23 21:56 Dose: 50 mg Allergies Allergies Allergy/AdvReac Type Severity Reaction Status Date / Time atropine Allergy Unknown Shortness Verified 12/02/23 23:30 of Breath enoxaparin [From Lovenox] Allergy Unknown Unknown Verified 12/02/23 23:30 penicillin V Allergy Unknown Unknown Verified 03/19/23 07:30 pseudoephedrine [Aprodine] Allergy Unknown Unknown Verified 03/19/23 07:30 triprolidine [Aprodine] Allergy Unknown Unknown Verified 03/19/23 07:30 Assessment & Plan Assessment & Plan (1) Fecal impaction: Status: Acute Code(s): K56.41 - Fecal impaction Assessment and Plan: She has chronic constipation with fecal impaction. I did manual disimpaction at bedside. She was in left lateral decubitus position. Large amounts of very hard thick dry stools were removed from the rectal vault. I would recommend continuing with stool softeners including MiraLax, Colace, and oral fluids. She can have a Fleet enema as well I may need to repeat the disimpaction in about 2 days. Her abdominal exam is otherwise benign. Plan Plan 1. Continue with same medications. 2. Do ECT as usual tomorrow. 3. Discharge planning Reason for continued inpatient stay Substantial Risk for: inability to function, rapid decompensation and med/psych decompensation Time Spent With Patient Time: Total time managing care of this patient today __20__ minutes.
[2024-01-09] MEDS: oxyCODONE HCl Immed Release 5 MG TABLET PO ×2 (15:56→21:08)
[2024-01-09 16:51] LABS: Glucose, Whole Blood 323 mg/dL (60-115)
[2024-01-09 20:00] VITALS: BP 114/56; PULSE 77; RESP 16; TEMP 36.9; O2SAT 99
[2024-01-09] MEDS: Sennosides 8.6 MG TABLET 17.2 MG PO (21:07)
[2024-01-09] MEDS: Atorvastatin Calcium 10 MG TABLET PO (21:07)
[2024-01-09] MEDS: Mirtazapine 30 MG TABLET PO (21:11)
[2024-01-09 21:26] LABS: Glucose, Whole Blood 152 mg/dL (60-115)
[2024-01-09] MEDS: Loratadine 10 MG TABLET PO (22:27)
[2024-01-10] MEDS: oxyCODONE HCl Immed Release 5 MG TABLET PO ×4 (00:51→20:56)
[2024-01-10] MEDS: 0.9 % Sodium Chloride Flush 3 ML SYRINGE IVFLUSH ×3 (00:56→16:53)
[2024-01-10 02:27] LABS: Appearance Urine Turbid; Color Urine Yellow; Glucose Urine UA Negative (Negative); Leukocyte Esterase Urine Large (3+) (Negative); Nitrite Urine Positive (Negative); UMIC TRIGGER UACC YES; Urine Blood Moderate (2+) (Negative); Urine Ketones Negative (Negative); Urine Protein 30 (1+) mg/dL (Neg-Trace)
[2024-01-10 02:32] LABS: Bacteria Urine 4+ (None Seen); Hyaline Casts Urine 0-2 /LPF (0-2); RBC Urine >20 /HPF (0-2); Squamous Epithelial Cell Urine 0-2 /HPF (0-2); UACC Culture Trigger YES; WBC Urine >50 /HPF (0-5)
[2024-01-10] MEDS: cefuroxime axetiL 250 MG TABLET PO ×3 (03:38→20:59)
--- NOTE | 2024-01-10 03:44 | PC.NURSE ---
pts urine was noted to have a foul odor. administration internship provider Andreina Baires-plan collect urine sample from [place] and send u/a and culture. unfortunately, u/a is showing + UTI. administration internship provider Andreina Baires informed of u/a findings. a copy of u/a report was included in tiger text. plan 1. ceftin 250 mg po now 2. start ceftin 250 mg bid. will plan on ect and may give ABX with sips of h20.
[2024-01-10 07:00] LABS: Glucose, Whole Blood 149 mg/dL (60-115)
[2024-01-10 08:56] VITALS: BP 154/73; PULSE 79; RESP 15; TEMP 36.9; O2SAT 95
[2024-01-10] MEDS: Lidocaine 4 % Patch ADH..PATCH 1 PATCH TRANSDERMA (09:57)
[2024-01-10] MEDS: polyethylene glycoL 3350 17 GM POWD.PACK PO (09:57)
[2024-01-10] MEDS: Ferrous Sulfate 324 MG TABLET.DR PO (09:58)
[2024-01-10] MEDS: Omeprazole 20 MG CAPSULE.DR PO (09:58)
[2024-01-10] MEDS: Multivitamin TABLET 1 TAB PO (09:58)
[2024-01-10] MEDS: Divalproex Sodium Sprinkles 125 MG CAP.DR.SPR 250 MG PO ×2 (09:58→20:57)
[2024-01-10 10:00] VITALS: BP 154/73
[2024-01-10] MEDS: Thiamine HCL 100 MG TABLET PO (10:00)
[2024-01-10] MEDS: amLODIPine Besylate 5 MG TABLET PO (10:00)
[2024-01-10] MEDS: Losartan Potassium 50 MG TABLET 100 MG PO (10:00)
[2024-01-10] MEDS: Aspirin 81 MG TAB.CHEW PO (10:01)
[2024-01-10] MEDS: Docusate Sodium 100 MG CAPSULE PO ×2 (10:01→21:02)
[2024-01-10 10:02] VITALS: BP 154/73
[2024-01-10] MEDS: Furosemide 20 MG TABLET PO (10:02)
[2024-01-10] MEDS: Anastrozole 1 MG TABLET PO (10:02)
[2024-01-10] MEDS: Magnesium Oxide 400 MG TABLET PO ×2 (10:02→21:02)
[2024-01-10] MEDS: Insulin Glargine,Hum.rec.anlog 100 UNIT/ML 10 ML VIAL 12 UNIT SUBCUT ×2 (10:03→21:06)
--- NOTE | 2024-01-10 11:10 | PC.NURSE ---
This typewriters functional tester texted Dr. Godinez to inquire about when he will be here to disimpact this patient. read and answer pending.
[2024-01-10 11:39] LABS: Glucose, Whole Blood 240 mg/dL (60-115)
--- NOTE | 2024-01-10 15:32 | P.PNPSI_ITS ---
Subjective Subjective Date of Service: 01/10/24 Reason For Visit: Major depressive disorder, severe, recurrent Subjective Notes: Conditional Voluntary Interim History: The nursing staff reported the patient had a bowel movement and she did not need the 2nd Fleet enema. She was impacted by the surgeon. Yesterday she was not diagnosed with a UTI and she was started on Ceftin. She slept 8 hours she looks much better but we decided to hold the discharge today in order to have 24 hours of antibiotics. On interview the patient reports feeling fine we will discharge her tomorrow. Mental Status Exam Mental Status Exam Patient Appearance: Appropriate Patient Orientation: Person and Situation Level of Consciousness: Awake and Appropriate Patient Behavior: Guarded and Passive Mood Description: Withdrawn Affect Description: Constricted Patient Cognition Impaired: Yes Ability to Follow Directions: Good Speech Pattern: Clear Hallucinations: None Delusions: Ideas of Reference Thought Process: Distracted and Slowed Thinking Thought Content: positive for [place] and positive for Poverty of Content Judgement: Fair Diagnostics Vital Signs (24Hr): Vital Signs - 24 hr 01/09/24 20:00 01/10/24 08:56 01/10/24 10:00 Temperature 98.5 F 98.4 F Pulse Rate 77 79 Respiratory Rate 16 15 Blood Pressure 114/56 L 154/73 H 154/73 H Pulse Oximetry 99 95 Oxygen Delivery Method Room Air Room Air 01/10/24 10:00 01/10/24 10:02 Temperature Pulse Rate Respiratory Rate Blood Pressure 154/73 H 154/73 H Pulse Oximetry Oxygen Delivery Method BMI result Body Mass Index 21.9 Labs 01/08/24 17:48 01/08/24 17:48 Labs: Laboratory Results - last 48 hr 01/08/24 01/08/24 01/08/24 16:34 17:48 19:40 WBC 4.4 L RBC 2.92 L Hgb 8.2 L Hct 25.0 L MCV 85.6 MCH 28.1 MCHC 32.8 RDW 15.0 Plt Count 139 L MPV 8.4 L Immature Gran % (Auto) 0.5 H Neut % (Auto) 75.3 H Lymph % (Auto) 15.4 L [place] % (Auto) 7.7 Eos % (Auto) 0.9 Baso % (Auto) 0.2 Lymph # (Auto) 0.7 L [place] # (Auto) 0.3 Eos # (Auto) 0.0 Baso # (Auto) 0.0 Abs Immat Gran (auto) 0.02 Absolute Neuts (auto) 3.3 Absolute Nucleated RBC 0.000 Nucleated RBC % (auto) 0.0 Sodium 135 Potassium 4.1 Chloride 99 Carbon Dioxide 29 Anion Gap 11 L BUN 23 H Creatinine 1.01 Estim Creat Clear Calc 32.8 Estimated GFR 53 POC Glucose 301 H 193 H Random Glucose 303 H Calcium 9.4 Urine Color Urine Appearance Urine pH Ur Specific [place] Urine Protein Urine Glucose (UA) Urine Ketones Urine Blood Urine Nitrite Ur Leukocyte Esterase Urine RBC Urine WBC Ur Squamous Epith Cells Urine Bacteria Hyaline Casts 01/09/24 01/09/24 01/09/24 06:29 08:08 11:30 WBC RBC Hgb Hct MCV MCH MCHC RDW Plt Count MPV Immature Gran % (Auto) Neut % (Auto) Lymph % (Auto) [place] % (Auto) Eos % (Auto) Baso % (Auto) Lymph # (Auto) [place] # (Auto) Eos # (Auto) Baso # (Auto) Abs Immat Gran (auto) Absolute Neuts (auto) Absolute Nucleated RBC Nucleated RBC % (auto) Sodium Potassium Chloride Carbon Dioxide Anion Gap BUN Creatinine Estim Creat Clear Calc Estimated GFR POC Glucose 80 116 H 369 H* Random Glucose Calcium Urine Color Urine Appearance Urine pH Ur Specific [place] Urine Protein Urine Glucose (UA) Urine Ketones Urine Blood Urine Nitrite Ur Leukocyte Esterase Urine RBC Urine WBC Ur Squamous Epith Cells Urine Bacteria Hyaline Casts 01/09/24 01/09/24 01/10/24 16:46 21:13 01:50 WBC RBC Hgb Hct MCV MCH MCHC RDW Plt Count MPV Immature Gran % (Auto) Neut % (Auto) Lymph % (Auto) [place] % (Auto) Eos % (Auto) Baso % (Auto) Lymph # (Auto) [place] # (Auto) Eos # (Auto) Baso # (Auto) Abs Immat Gran (auto) Absolute Neuts (auto) Absolute Nucleated RBC Nucleated RBC % (auto) Sodium Potassium Chloride Carbon Dioxide Anion Gap BUN Creatinine Estim Creat Clear Calc Estimated GFR POC Glucose 323 H 152 H Random Glucose Calcium Urine Color Yellow Urine Appearance Turbid Urine pH 8.0 Ur Specific [place] 1.010 Urine Protein 30 (1+) H Urine Glucose (UA) Negative Urine Ketones Negative Urine Blood Moderate (2+) H Urine Nitrite Positive H Ur Leukocyte Esterase Large (3+) H Urine RBC >20 H Urine WBC >50 H Ur Squamous Epith Cells 0-2 Urine Bacteria 4+ Hyaline Casts 0-2 01/10/24 01/10/24 06:50 11:31 WBC RBC Hgb Hct MCV MCH MCHC RDW Plt Count MPV Immature Gran % (Auto) Neut % (Auto) Lymph % (Auto) [place] % (Auto) Eos % (Auto) Baso % (Auto) Lymph # (Auto) [place] # (Auto) Eos # (Auto) Baso # (Auto) Abs Immat Gran (auto) Absolute Neuts (auto) Absolute Nucleated RBC Nucleated RBC % (auto) Sodium Potassium Chloride Carbon Dioxide Anion Gap BUN Creatinine Estim Creat Clear Calc Estimated GFR POC Glucose 149 H 240 H Random Glucose Calcium Urine Color Urine Appearance Urine pH Ur Specific [place] Urine Protein Urine Glucose (UA) Urine Ketones Urine Blood Urine Nitrite Ur Leukocyte Esterase Urine RBC Urine WBC Ur Squamous Epith Cells Urine Bacteria Hyaline Casts Imaging Radiology Impressions: ITS Impressions Chest X-Ray 12/03/23 12:20 IMPRESSION: 1. Chronic interstitial prominence without focal consolidative airspace opacity. 2. Densities along the left lower chest which may represent pleural calcifications versus soft tissue calcifications. Correlation with lateral radiograph could help further evaluate. Electronically signed by: Viral Smallwood MD 12/03/2023 01:[address] 12/03/23 13:17 IMPRESSION: 1. No acute intracranial abnormalities. No intracranial hemorrhage or mass effect. 2. Moderate small vessel ischemic changes in the hemispheric white matter. 3. 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 4. Age advanced cerebral and cerebellar involutional changes with prominent ventricles. Cannot definitively exclude a component of communicating hydrocephalus given the appearance. Head CT 12/10/23 21:05 IMPRESSION: No acute intracranial abnormality including hemorrhage, mass effect, hydrocephalus, or acute territorial edematous infarction. Electronically signed by: Juan Alberto Murdock MD 12/10/2023 10:07 PM EDT Shoulder X-Ray 01/01/24 09:08 IMPRESSION: Comminuted fracture of the right shoulder Electronically signed by: Sean Kirkpatrick MD 01/01/2024 10:25 AM EDT RP KUB X-Ray 01/05/24 04:50 IMPRESSION: Findings as above. Electronically signed by: Rakesh Garcia MD 01/05/2024 05:10 PM EDT RP KUB X-Ray 01/08/24 11:50 IMPRESSION: No evidence of bowel obstruction. Moderate stool burden. Electronically signed by: John Purdy MD 01/08/2024 07:58 PM EDT RP Medications Medications Current Medications Acetaminophen (Acetaminophen 325 Mg Tablet) 650 mg PO Q6H PRN PRN Reason: Headache/Pain Mild Scale (1-3) Last Admin: 01/09/24 06:03 Dose: 650 mg Al Hydroxide/Mg Hydroxide (Magnesium Hydrox/Alum Hydrox 30 Ml Oral.Susp) 30 ml PO Q6H PRN PRN Reason: Heartburn/Nausea Amlodipine Besylate (Amlodipine Besylate 5 Mg Tablet) 5 mg PO DAILY [facility]; Protocol Last Admin: 01/10/24 10:00 Dose: 5 mg Anastrozole (Anastrozole 1 Mg Tablet) 1 mg PO DAILY [facility] Last Admin: 01/10/24 10:02 Dose: 1 mg Aspirin (Aspirin 81 Mg Tab.Chew) 81 mg PO DAILY [facility] Last Admin: 01/10/24 10:01 Dose: 81 mg Atorvastatin Calcium (Atorvastatin Calcium 10 Mg Tablet) 10 mg PO BEDTIME [facility] Last Admin: 01/09/24 21:07 Dose: 10 mg Bisacodyl (Bisacodyl 10 Mg Supp.Rect) 10 mg FL DAILY PRN PRN Reason: constipation Cefuroxime Axetil (Cefuroxime Axetil 250 Mg Tablet) 250 mg PO Q12H [facility] Last Admin: 01/10/24 10:02 Dose: 250 mg Divalproex Sodium (Divalproex Sodium Sprinkles 125 Mg Cap.Spr) 250 mg PO BID [facility] Last Admin: 01/10/24 09:58 Dose: 250 mg Docusate Sodium (Docusate Sodium 100 Mg Capsule) 100 mg PO BEDTIME PRN PRN Reason: Constipation Last Admin: 01/07/24 21:01 Dose: 100 mg Docusate Sodium (Docusate Sodium 100 Mg Capsule) 100 mg PO BID [facility] Last Admin: 01/10/24 10:01 Dose: 100 mg Ferrous Sulfate (Ferrous Sulfate 324 Mg Tablet.Dr) 324 mg PO DAILY [facility] Last Admin: 01/10/24 09:58 Dose: 324 mg Furosemide (Furosemide 20 Mg Tablet) 20 mg PO DAILY [facility]; Protocol Last Admin: 01/10/24 10:02 Dose: 20 mg Glucose (Glucose Gel 15 Gm Gel..Gram.) 15 gm PO Q15M PRN; Protocol PRN Reason: per Hypoglycemia Standing Ord. Insulin Glargine (Insulin Glargine,Hum.Rec.Anlog 100 Unit/Ml 10 Ml Vial) 12 unit SUBCUT BEDTIME [facility] Last Admin: 01/09/24 22:28 Dose: Not Given Insulin Glargine (Insulin Glargine,Hum.Rec.Anlog 100 Unit/Ml 10 Ml Vial) 12 unit SUBCUT DAILY [facility] Last Admin: 01/10/24 10:03 Dose: 12 unit Insulin Human Lispro (Insulin Lispro 100 Unit/Ml 3 Ml Vial) 0 unit SUBCUT QIDACHS [facility]; Protocol Last Admin: 01/10/24 13:16 Dose: Not Given Lidocaine (Lidocaine 4 % Patch Adh..Patch) 1 patch TRANSDERMA DAILY [facility]; Protocol Last Admin: 01/10/24 09:57 Dose: 1 patch Loratadine (Loratadine 10 Mg Tablet) 10 mg PO BEDTIME [facility] Last Admin: 01/09/24 22:27 Dose: 10 mg Losartan Potassium (Losartan Potassium 50 Mg Tablet) 100 mg PO DAILY [facility]; Protocol Last Admin: 01/10/24 10:00 Dose: 100 mg Magnesium Hydroxide (Milk Of Magnesia 30 Ml Oral.Susp) 30 ml PO DAILY PRN PRN Reason: Constipation Last Admin: 01/08/24 21:26 Dose: 30 ml Magnesium Oxide (Magnesium Oxide 400 Mg Tablet) 400 mg PO BID [facility] Last Admin: 01/10/24 10:02 Dose: 400 mg Mirtazapine (Mirtazapine 30 Mg Tablet) 30 mg PO BEDTIME [facility] Last Admin: 01/09/24 21:11 Dose: 30 mg Multivitamins/Vitamin C (Multivitamin Tablet) 1 tab PO DAILY [facility] Last Admin: 01/10/24 09:58 Dose: 1 tab Naloxone HCl (Naloxone Hcl 0.4 Mg/Ml Vial) 0.04 mg IVPUSH Q5M PRN PRN Reason: Excessive sedation or RR < 8 Naloxone HCl (Naloxone Hcl 0.4 Mg/Ml Vial) 0.04 mg IVPUSH Q5M PRN PRN Reason: Excessive sedation or RR < 8 Nicotine Polacrilex (Nicotine Polacrilex 2 Mg Gum) 4 mg BUCCAL Q2H PRN PRN Reason: Nicotine Cravings Omeprazole (Omeprazole 20 Mg Capsule.Dr) 20 mg PO DAILY@0630 [facility] Last Admin: 01/10/24 09:58 Dose: 20 mg Oxycodone HCl (Oxycodone Hcl Immed Release 5 Mg Tablet) 5 mg PO Q4H PRN PRN Reason: Pain, Severe (Pain Scale 7-10) Last Admin: 01/10/24 09:58 Dose: 5 mg Polyethylene Glycol (Polyethylene Glycol 3350 17 Gm Powd.Pack) 17 gm PO DAILY [facility] Last Admin: 01/10/24 09:57 Dose: 17 gm Risperidone (Risperidone 0.5 Mg Tablet) 0.5 mg PO BID PRN PRN Reason: Restlessness Senna (Sennosides 8.6 Mg Tablet) 17.2 mg PO BEDTIME [facility] Last Admin: 01/09/24 21:07 Dose: 17.2 mg Sodium Chloride (0.9 % Sodium Chloride Flush 3 Ml Syringe) 3 ml IVFLUSH QSHIFT [facility] Last Admin: 01/10/24 08:59 Dose: 3 ml Thiamine HCl (Thiamine Hcl 100 Mg Tablet) 100 mg PO DAILY [facility] Last Admin: 01/10/24 10:00 Dose: 100 mg Tramadol HCl (Tramadol Hcl 50 Mg Tablet) 25 mg PO Q6H PRN PRN Reason: Pain, Moderate(Pain Scale 4-6) Last Admin: 01/08/24 09:52 Dose: 25 mg Trazodone HCl (Trazodone Hcl 50 Mg Tablet) 50 mg PO BEDTIME PRN PRN Reason: Insomnia Last Admin: 12/30/23 21:56 Dose: 50 mg Allergies Allergies Allergy/AdvReac Type Severity Reaction Status Date / Time atropine Allergy Unknown Shortness Verified 12/02/23 23:30 of Breath enoxaparin [From Lovenox] Allergy Unknown Unknown Verified 12/02/23 23:30 penicillin V Allergy Unknown Unknown Verified 03/19/23 07:30 pseudoephedrine [Aprodine] Allergy Unknown Unknown Verified 03/19/23 07:30 triprolidine [Aprodine] Allergy Unknown Unknown Verified 03/19/23 07:30 Assessment & Plan Assessment & Plan (1) Fecal impaction: Status: Acute Code(s): K56.41 - Fecal impaction Assessment and Plan: She has chronic constipation with fecal impaction. I did manual disimpaction at bedside. She was in left lateral decubitus position. Large amounts of very hard thick dry stools were removed from the rectal vault. I would recommend continuing with stool softeners including MiraLax, Colace, and oral fluids. She can have a Fleet enema as well I may need to repeat the disimpaction in about 2 days. Her abdominal exam is otherwise benign. Plan Plan 1. Continue with same medications. 2. Do ECT as usual tomorrow. 3. Discharge planning. 4. Start Ceftin on 01/08 Reason for continued inpatient stay Substantial Risk for: inability to function, rapid decompensation and med/psych decompensation Time Spent With Patient Time: Total time managing care of this patient today __20__ minutes.
--- NOTE | 2024-01-10 15:35 | PM.PSYDC ---
DS: Providers Provider Date of Service: 01/10/24 Date of admission: 12/02/23 21:45 Date of discharge: 01/11/24 Primary care physician: Kim Gates MD Consults: 12/02/23 22:48 Consult to Hospitalist Routine Comment: Consulting Provider: Hospitalist Reason For Exam: pressure sore coccyx; admission physical 12/02/23 22:57 Consult to Wound Care Routine Reason for consultation: pressure ulcer coccyx 12/05/23 22:57 Consult to Urology Routine Consulting Provider: [facility] Reason for consultation: arango catheter uti see hosp consult? rec Has provider been notified: No 12/10/23 10:58 Consult to Hospitalist Routine Comment: Consulting Provider: Hospitalist Reason For Exam: ECT clearance 12/13/23 12:10 Consult to Cardiology Routine Consulting Provider: Saravanan Braswell Reason for consultation: see text from dr Nicole catmarvin requires ect Has provider been notified: No 12/27/23 10:30 Consult to Hospitalist Routine Comment: Consulting Provider: Hospitalist Reason For Exam: increase hyperglycemia/adjust regimen 01/01/24 10:33 Consult to Orthopedics Stat Consulting Provider: [facility] Orthopedic Surgeons Reason for consultation: Fx shoulder Has provider been notified: No 01/05/24 15:46 Consult to Wound Care Routine Reason for consultation: wound on the buttocks 01/08/24 10:58 Consult to Hospitalist Routine Comment: Consulting Provider: Hospitalist Reason For Exam: severe constipation 01/08/24 14:43 Consult to General Surgery Routine Consulting Provider: [facility] General Surgeons Reason for consultation: fecal impaction, stool ball rectum DS: Diagnosis Discharge Diagnosis (1) Fecal impaction: Status: Acute DS: Medications Discharge Medications Home Medications: Home Medications ?Medication ?Instructions ?Recorded ?Confirmed ascorbate calcium (vitamin C) 500 500 mg PO DAILY 03/24/20 11/20/22 mg tablet fluoxetine 20 mg capsule 40 mg PO DAILY 03/24/20 11/20/22 levothyroxine 100 mcg tablet 100 mcg PO QAM 03/24/20 11/20/22 mirtazapine 30 mg tablet 30 mg PO BEDTIME 03/24/20 11/20/22 omeprazole 20 mg capsule,delayed 20 mg PO DAILY 03/24/20 11/20/22 release risperidone 1 mg tablet 1 mg PO BEDTIME 03/24/20 11/20/22 insulin glargine 100 unit/mL (3 30 unit subcut BEDTIME 09/28/20 11/20/22 mL) subcutaneous pen anastrozole 1 mg tablet 1 mg PO DAILY 02/16/21 11/20/22 dapagliflozin propanediol 10 mg 10 mg PO QAM 05/08/21 11/20/22 tablet (Farxiga) losartan 50 mg tablet 50 mg PO DAILY 09/14/21 11/20/22 amlodipine 5 mg tablet 5 mg PO QAM 12/02/23 12/02/23 anastrozole 1 mg tablet 1 mg PO DAILY 12/02/23 12/02/23 aspirin 81 mg chewable tablet 1 tab PO QAM 12/02/23 12/02/23 cetirizine 5 mg tablet 5 mg PO BEDTIME 12/02/23 12/02/23 divalproex 500 mg tablet,delayed 500 mg PO BEDTIME 12/02/23 12/02/23 release ferrous sulfate 325 mg (65 mg 325 mg PO QAM 12/02/23 12/02/23 iron) tablet (FeroSul) furosemide 20 mg tablet (Lasix) 20 mg PO DAILY 12/02/23 12/02/23 insulin glargine 100 unit/mL 6 unit subcut BEDTIME 12/02/23 12/02/23 subcutaneous solution insulin lispro 100 unit/mL 1 sliding scale dose subcut 12/02/23 12/02/23 subcutaneous solution USEASDIRECTD levetiracetam 500 mg tablet 500 mg PO BID 12/02/23 12/02/23 losartan 100 mg tablet 100 mg PO DAILY 12/02/23 12/02/23 losartan 100 mg tablet 100 mg PO DAILY 12/02/23 12/02/23 magnesium oxide 400 mg PO BID 12/02/23 12/02/23 mirtazapine 30 mg disintegrating 30 mg PO BEDTIME 12/02/23 12/02/23 tablet multivitamin with minerals 1 tab PO DAILY 12/02/23 12/02/23 pantoprazole 40 mg tablet,delayed 40 mg PO DAILY 12/02/23 12/02/23 release risperidone 0.5 mg tablet 0.5 mg PO BID PRN Agitation 12/02/23 12/02/23 risperidone 2 mg tablet 2 mg PO BID 12/02/23 12/02/23 simvastatin 20 mg tablet 20 mg PO BEDTIME 12/02/23 12/02/23 thiamine HCl (vitamin B1) 100 mg 100 mg PO QAM 12/02/23 12/02/23 tablet trazodone 50 mg tablet 50 mg PO BEDTIME PRN insomnia 12/02/23 12/02/23 vancomycin 125 mg capsule See Rx Instructions .Route .COMPLEX 12/02/23 12/02/23 (Vancocin) Previous Rx's ?Medication ?Instructions ?Recorded alcohol swabs (Alcohol Prep Pads) 1 pad topical TID-QID 30 days #200 02/25/20 ea blood sugar diagnostic (FreeStyle 1 strip miscellaneous QID for 06/23/20 Lite Strips) diabetes mellitus 30 days #100 strips lancets 33 gauge (TRUEplus Lancets) 1 gauge miscellaneous QID for 06/23/20 diabetes mellitus 30 days #100 ea blood sugar diagnostic (FreeStyle #100 ea 09/28/20 Lite Strips) blood-glucose meter (FreeStyle #1 ea 09/28/20 Lite Meter kit) flash glucose scanning reader #1 ea 09/28/20 (FreeStyle Ladan 2 [place]) pen needle, diabetic 32 gauge x 4 ea miscellaneous DAILY 30 days 05/16/21 5/32 (Pentips) #100 ea dulaglutide 4.5 mg/0.5 mL 4.5 mg (0.5 mL) subcut QWEEK #2 mL 08/08/21 subcutaneous pen injector (Trulicity) insulin aspart U-100 100 unit/mL 14 - 18 unit (0.14 - 0.18 mL) 08/08/21 (3 mL) subcutaneous pen (Novolog subcut TID 30 days #30 mL FlexPen U-100 Insulin aspart) pen needle,diabetic dual safty 30 #200 ea 09/05/21 gauge x 3/16 (BD AutoShield Duo Pen Needle) atorvastatin 40 mg tablet 40 mg PO DAILY 30 days #30 tabs 09/12/21 cholecalciferol (vitamin D3) 50 50 mcg PO DAILY 30 days #30 tabs 09/12/21 mcg (2,000 unit) tablet flash glucose sensor (FreeStyle #2 ea 12/13/21 Ladan 2 Sensor kit) Mental Status Exam Mental Status Exam Patient Appearance: Well Grooomed and Appropriate Patient Orientation: Person and Situation Level of Consciousness: Awake and Appropriate Patient Behavior: Guarded and Passive Mood Description: Calm Affect Description: Constricted Patient Cognition Impaired: Yes Ability to Follow Directions: Good Speech Pattern: Clear Hallucinations: None Delusions: Not Present Thought Process: Distracted and Slowed Thinking Thought Content: positive for [place] and positive for Poverty of Content Judgement: Fair Data Data Completed and Pending Completed studies during hospitalization [Text1]: 01/03/24 01/03/24 01/03/24 16:42 18:39 19:54 WBC RBC Hgb Hct MCV MCH MCHC RDW Plt Count MPV Immature Gran % (Auto) Neut % (Auto) Lymph % (Auto) [place] % (Auto) Eos % (Auto) Baso % (Auto) Lymph # (Auto) [place] # (Auto) Eos # (Auto) Baso # (Auto) Abs Immat Gran (auto) Absolute Neuts (auto) Absolute Nucleated RBC Nucleated RBC % (auto) VBG pH VBG pCO2 VBG pO2 VBG HCO3 VBG O2 Saturation VBG Base Excess Sodium Potassium Chloride Carbon Dioxide Anion Gap BUN Creatinine Estim Creat Clear Calc Estimated GFR POC Glucose 438 H* 319 H 266 H Random Glucose Calcium Beta-Hydroxybutyrate Urine Color Urine Appearance Urine pH Ur Specific [place] Urine Protein Urine Glucose (UA) Urine Ketones Urine Blood Urine Nitrite Ur Leukocyte Esterase Urine RBC Urine WBC Ur Squamous Epith Cells Urine Bacteria Hyaline Casts 01/04/24 01/04/24 01/04/24 06:52 11:33 16:19 WBC RBC Hgb Hct MCV MCH MCHC RDW Plt Count MPV Immature Gran % (Auto) Neut % (Auto) Lymph % (Auto) [place] % (Auto) Eos % (Auto) Baso % (Auto) Lymph # (Auto) [place] # (Auto) Eos # (Auto) Baso # (Auto) Abs Immat Gran (auto) Absolute Neuts (auto) Absolute Nucleated RBC Nucleated RBC % (auto) VBG pH VBG pCO2 VBG pO2 VBG HCO3 VBG O2 Saturation VBG Base Excess Sodium Potassium Chloride Carbon Dioxide Anion Gap BUN Creatinine Estim Creat Clear Calc Estimated GFR POC Glucose 211 H 287 H 459 H* Random Glucose Calcium Beta-Hydroxybutyrate Urine Color Urine Appearance Urine pH Ur Specific [place] Urine Protein Urine Glucose (UA) Urine Ketones Urine Blood Urine Nitrite Ur Leukocyte Esterase Urine RBC Urine WBC Ur Squamous Epith Cells Urine Bacteria Hyaline Casts 01/04/24 01/05/24 01/05/24 19:44 06:30 11:27 WBC RBC Hgb Hct MCV MCH MCHC RDW Plt Count MPV Immature Gran % (Auto) Neut % (Auto) Lymph % (Auto) [place] % (Auto) Eos % (Auto) Baso % (Auto) Lymph # (Auto) [place] # (Auto) Eos # (Auto) Baso # (Auto) Abs Immat Gran (auto) Absolute Neuts (auto) Absolute Nucleated RBC Nucleated RBC % (auto) VBG pH VBG pCO2 VBG pO2 VBG HCO3 VBG O2 Saturation VBG Base Excess Sodium Potassium Chloride Carbon Dioxide Anion Gap BUN Creatinine Estim Creat Clear Calc Estimated GFR POC Glucose 380 H* 295 H 443 H* Random Glucose Calcium Beta-Hydroxybutyrate Urine Color Urine Appearance Urine pH Ur Specific [place] Urine Protein Urine Glucose (UA) Urine Ketones Urine Blood Urine Nitrite Ur Leukocyte Esterase Urine RBC Urine WBC Ur Squamous Epith Cells Urine Bacteria Hyaline Casts 01/05/24 01/05/24 01/05/24 12:00 12:41 12:48 WBC 6.0 RBC 3.05 L Hgb 8.6 L Hct 26.3 L MCV 86.2 MCH 28.2 MCHC 32.7 RDW 15.2 Plt Count 133 L D MPV 8.9 L Immature Gran % (Auto) Neut % (Auto) Lymph % (Auto) [place] % (Auto) Eos % (Auto) Baso % (Auto) Lymph # (Auto) [place] # (Auto) Eos # (Auto) Baso # (Auto) Abs Immat Gran (auto) Absolute Neuts (auto) Absolute Nucleated RBC 0.000 Nucleated RBC % (auto) 0.0 VBG pH 7.50 H VBG pCO2 49 VBG pO2 97 VBG HCO3 39 H VBG O2 Saturation 99.0 VBG Base Excess 14.4 Sodium 133 L Potassium 4.8 Chloride 94 L Carbon Dioxide 31 H Anion Gap 13 BUN 21 H Creatinine 1.15 Estim Creat Clear Calc 28.8 Estimated GFR 46 POC Glucose 451 H* Random Glucose 446 H* Calcium 9.8 Beta-Hydroxybutyrate 0.08 Urine Color Urine Appearance Urine pH Ur Specific [place] Urine Protein Urine Glucose (UA) Urine Ketones Urine Blood Urine Nitrite Ur Leukocyte Esterase Urine RBC Urine WBC Ur Squamous Epith Cells Urine Bacteria Hyaline Casts 09/01/05/24 01/06/24 16:43 19:40 05:53 WBC RBC Hgb Hct MCV MCH MCHC RDW Plt Count MPV Immature Gran % (Auto) Neut % (Auto) Lymph % (Auto) [place] % (Auto) Eos % (Auto) Baso % (Auto) Lymph # (Auto) [place] # (Auto) Eos # (Auto) Baso # (Auto) Abs Immat Gran (auto) Absolute Neuts (auto) Absolute Nucleated RBC Nucleated RBC % (auto) VBG pH VBG pCO2 VBG pO2 VBG HCO3 VBG O2 Saturation VBG Base Excess Sodium Potassium Chloride Carbon Dioxide Anion Gap BUN Creatinine Estim Creat Clear Calc Estimated GFR POC Glucose 247 H 194 H 131 H Random Glucose Calcium Beta-Hydroxybutyrate Urine Color Urine Appearance Urine pH Ur Specific [place] Urine Protein Urine Glucose (UA) Urine Ketones Urine Blood Urine Nitrite Ur Leukocyte Esterase Urine RBC Urine WBC Ur Squamous Epith Cells Urine Bacteria Hyaline Casts 01/06/24 01/06/24 01/06/24 11:29 16:20 19:58 WBC RBC Hgb Hct MCV MCH MCHC RDW Plt Count MPV Immature Gran % (Auto) Neut % (Auto) Lymph % (Auto) [place] % (Auto) Eos % (Auto) Baso % (Auto) Lymph # (Auto) [place] # (Auto) Eos # (Auto) Baso # (Auto) Abs Immat Gran (auto) Absolute Neuts (auto) Absolute Nucleated RBC Nucleated RBC % (auto) VBG pH VBG pCO2 VBG pO2 VBG HCO3 VBG O2 Saturation VBG Base Excess Sodium Potassium Chloride Carbon Dioxide Anion Gap BUN Creatinine Estim Creat Clear Calc Estimated GFR POC Glucose 316 H 390 H* 258 H Random Glucose Calcium Beta-Hydroxybutyrate Urine Color Urine Appearance Urine pH Ur Specific [place] Urine Protein Urine Glucose (UA) Urine Ketones Urine Blood Urine Nitrite Ur Leukocyte Esterase Urine RBC Urine WBC Ur Squamous Epith Cells Urine Bacteria Hyaline Casts 01/07/24 01/07/24 01/07/24 06:25 11:15 16:29 WBC RBC Hgb Hct MCV MCH MCHC RDW Plt Count MPV Immature Gran % (Auto) Neut % (Auto) Lymph % (Auto) [place] % (Auto) Eos % (Auto) Baso % (Auto) Lymph # (Auto) [place] # (Auto) Eos # (Auto) Baso # (Auto) Abs Immat Gran (auto) Absolute Neuts (auto) Absolute Nucleated RBC Nucleated RBC % (auto) VBG pH VBG pCO2 VBG pO2 VBG HCO3 VBG O2 Saturation VBG Base Excess Sodium Potassium Chloride Carbon Dioxide Anion Gap BUN Creatinine Estim Creat Clear Calc Estimated GFR POC Glucose 105 115 93 Random Glucose Calcium Beta-Hydroxybutyrate Urine Color Urine Appearance Urine pH Ur Specific [place] Urine Protein Urine Glucose (UA) Urine Ketones Urine Blood Urine Nitrite Ur Leukocyte Esterase Urine RBC Urine WBC Ur Squamous Epith Cells Urine Bacteria Hyaline Casts 01/07/24 01/08/24 01/08/24 19:52 06:17 08:54 WBC RBC Hgb Hct MCV MCH MCHC RDW Plt Count MPV Immature Gran % (Auto) Neut % (Auto) Lymph % (Auto) [place] % (Auto) Eos % (Auto) Baso % (Auto) Lymph # (Auto) [place] # (Auto) Eos # (Auto) Baso # (Auto) Abs Immat Gran (auto) Absolute Neuts (auto) Absolute Nucleated RBC Nucleated RBC % (auto) VBG pH VBG pCO2 VBG pO2 VBG HCO3 VBG O2 Saturation VBG Base Excess Sodium Potassium Chloride Carbon Dioxide Anion Gap BUN Creatinine Estim Creat Clear Calc Estimated GFR POC Glucose 188 H 100 162 H Random Glucose Calcium Beta-Hydroxybutyrate Urine Color Urine Appearance Urine pH Ur Specific [place] Urine Protein Urine Glucose (UA) Urine Ketones Urine Blood Urine Nitrite Ur Leukocyte Esterase Urine RBC Urine WBC Ur Squamous Epith Cells Urine Bacteria Hyaline Casts 01/08/24 01/08/24 01/08/24 11:25 16:34 17:48 WBC 4.4 L RBC 2.92 L Hgb 8.2 L Hct 25.0 L MCV 85.6 MCH 28.1 MCHC 32.8 RDW 15.0 Plt Count 139 L MPV 8.4 L Immature Gran % (Auto) 0.5 H Neut % (Auto) 75.3 H Lymph % (Auto) 15.4 L [place] % (Auto) 7.7 Eos % (Auto) 0.9 Baso % (Auto) 0.2 Lymph # (Auto) 0.7 L [place] # (Auto) 0.3 Eos # (Auto) 0.0 Baso # (Auto) 0.0 Abs Immat Gran (auto) 0.02 Absolute Neuts (auto) 3.3 Absolute Nucleated RBC 0.000 Nucleated RBC % (auto) 0.0 VBG pH VBG pCO2 VBG pO2 VBG HCO3 VBG O2 Saturation VBG Base Excess Sodium 135 Potassium 4.1 Chloride 99 Carbon Dioxide 29 Anion Gap 11 L BUN 23 H Creatinine 1.01 Estim Creat Clear Calc 32.8 Estimated GFR 53 POC Glucose 181 H 301 H Random Glucose 303 H Calcium 9.4 Beta-Hydroxybutyrate Urine Color Urine Appearance Urine pH Ur Specific [place] Urine Protein Urine Glucose (UA) Urine Ketones Urine Blood Urine Nitrite Ur Leukocyte Esterase Urine RBC Urine WBC Ur Squamous Epith Cells Urine Bacteria Hyaline Casts 01/08/24 01/09/24 01/09/24 19:40 06:29 08:08 WBC RBC Hgb Hct MCV MCH MCHC RDW Plt Count MPV Immature Gran % (Auto) Neut % (Auto) Lymph % (Auto) [place] % (Auto) Eos % (Auto) Baso % (Auto) Lymph # (Auto) [place] # (Auto) Eos # (Auto) Baso # (Auto) Abs Immat Gran (auto) Absolute Neuts (auto) Absolute Nucleated RBC Nucleated RBC % (auto) VBG pH VBG pCO2 VBG pO2 VBG HCO3 VBG O2 Saturation VBG Base Excess Sodium Potassium Chloride Carbon Dioxide Anion Gap BUN Creatinine Estim Creat Clear Calc Estimated GFR POC Glucose 193 H 80 116 H Random Glucose Calcium Beta-Hydroxybutyrate Urine Color Urine Appearance Urine pH Ur Specific [place] Urine Protein Urine Glucose (UA) Urine Ketones Urine Blood Urine Nitrite Ur Leukocyte Esterase Urine RBC Urine WBC Ur Squamous Epith Cells Urine Bacteria Hyaline Casts 01/09/24 01/09/24 01/09/24 11:30 16:46 21:13 WBC RBC Hgb Hct MCV MCH MCHC RDW Plt Count MPV Immature Gran % (Auto) Neut % (Auto) Lymph % (Auto) [place] % (Auto) Eos % (Auto) Baso % (Auto) Lymph # (Auto) [place] # (Auto) Eos # (Auto) Baso # (Auto) Abs Immat Gran (auto) Absolute Neuts (auto) Absolute Nucleated RBC Nucleated RBC % (auto) VBG pH VBG pCO2 VBG pO2 VBG HCO3 VBG O2 Saturation VBG Base Excess Sodium Potassium Chloride Carbon Dioxide Anion Gap BUN Creatinine Estim Creat Clear Calc Estimated GFR POC Glucose 369 H* 323 H 152 H Random Glucose Calcium Beta-Hydroxybutyrate Urine Color Urine Appearance Urine pH Ur Specific [place] Urine Protein Urine Glucose (UA) Urine Ketones Urine Blood Urine Nitrite Ur Leukocyte Esterase Urine RBC Urine WBC Ur Squamous Epith Cells Urine Bacteria Hyaline Casts 01/10/24 01/10/24 01/10/24 01:50 06:50 11:31 WBC RBC Hgb Hct MCV MCH MCHC RDW Plt Count MPV Immature Gran % (Auto) Neut % (Auto) Lymph % (Auto) [place] % (Auto) Eos % (Auto) Baso % (Auto) Lymph # (Auto) [place] # (Auto) Eos # (Auto) Baso # (Auto) Abs Immat Gran (auto) Absolute Neuts (auto) Absolute Nucleated RBC Nucleated RBC % (auto) VBG pH VBG pCO2 VBG pO2 VBG HCO3 VBG O2 Saturation VBG Base Excess Sodium Potassium Chloride Carbon Dioxide Anion Gap BUN Creatinine Estim Creat Clear Calc Estimated GFR POC Glucose 149 H 240 H Random Glucose Calcium Beta-Hydroxybutyrate Urine Color Yellow Urine Appearance Turbid Urine pH 8.0 Ur Specific [place] 1.010 Urine Protein 30 (1+) H Urine Glucose (UA) Negative Urine Ketones Negative Urine Blood Moderate (2+) H Urine Nitrite Positive H Ur Leukocyte Esterase Large (3+) H Urine RBC >20 H Urine WBC >50 H Ur Squamous Epith Cells 0-2 Urine Bacteria 4+ Hyaline Casts 0-2 01/10/24 Unknown Urine Catheterized - Arango Catheter Urine Culture - Pending 12/03/23 Unknown Urine Catheterized - Arango Catheter Urine Culture - Final Escherichia coli Enterococcus faecalis Imaging Diagnostic Imaging Impressions Chest X-Ray 12/03/23 12:20 IMPRESSION: 1. Chronic interstitial prominence without focal consolidative airspace opacity. 2. Densities along the left lower chest which may represent pleural calcifications versus soft tissue calcifications. Correlation with lateral radiograph could help further evaluate. Electronically signed by: Viral Smallwood MD 12/03/2023 01:[address] 12/03/23 13:17 IMPRESSION: 1. No acute intracranial abnormalities. No intracranial hemorrhage or mass effect. 2. Moderate small vessel ischemic changes in the hemispheric white matter. 3. 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 4. Age advanced cerebral and cerebellar involutional changes with prominent ventricles. Cannot definitively exclude a component of communicating hydrocephalus given the appearance. Head CT 12/10/23 21:05 IMPRESSION: No acute intracranial abnormality including hemorrhage, mass effect, hydrocephalus, or acute territorial edematous infarction. Electronically signed by: Juan Alberto Murdock MD 12/10/2023 10:07 PM EDT RP Shoulder X-Ray 01/01/24 09:08 IMPRESSION: Comminuted fracture of the right shoulder Electronically signed by: Sean Kirkpatrick MD 01/01/2024 10:25 AM EDT RP KUB X-Ray 01/05/24 04:50 IMPRESSION: Findings as above. Electronically signed by: Rakesh Garcia MD 01/05/2024 05:10 PM EDT RP KUB X-Ray 01/08/24 11:50 IMPRESSION: No evidence of bowel obstruction. Moderate stool burden. Electronically signed by: John Purdy MD 01/08/2024 07:58 PM EDT RP DS: Summary Hospital Course Hospital Course: The patient is a 73-year-old patient [place] descent female, mostly Citizen Of [place]-speaking with a past history of major depressive disorder and dementia who was transferred to this facility after being medically cleared. The patient had been extremely depressed with catatonic like symptoms for several weeks. The patient been declining for the last 9 months and she has several prior admissions. Please see the HPI of the admission note for further details. On intake the patient was nearly catatonic selectively mute refused to take medications. The family reported that historically she did very well with ECT and the healthcare proxy, her , agreed to do the treatment. Her healthcare proxy is affirmed by court. ECT was performed and the patient's mood improved remarkably was pleasant cooperative with good eye contact. Unfortunately, the patient had an unwitnessed fall and had a fracture on her shoulder. We continue treatment with ECT, her mood improved remarkably. The patient developed severe constipation due to opioids that needed to be disimpacted. Also before being discharged with diagnosed with a UTI and needed to have antibiotics. In general, the patient's condition has improved remarkably, she is alert awake and oriented able to make her needs known. Since there were remarked improvement and no evidence of psychosis discharge planning was discussed. Her family wants to take care of her. Time spent discussing smoking cessation with patient: 3 to 10 minutes Status at Discharge Cognitive/behavioral status at discharge: Impaired at baseline Functional status at discharge: uses cane/walker Overall status at discharge: patient is back to baseline Time Spent with Patient Time attestation: Total time managing care of this patient today __30__ minutes. 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 Dementia Fracture of shoulder Chronic kidney disease Referrals: [facility], [facility] [Other] - 1 Week (The referral for Elder Care was put through and is being processed. They will reach out to you with a date and time to come and evaluate Delaney. if you do not hear from them in a timely more after discharge please call them and reach out to Information and referral. This process can take time though as they need to come out for an assessment and find services for her.) [facility] [Other] - 01/17/24 10:00 am (Follow Up appointment has been made with Dr. Allen for Jan 16 at 10:00 AM. If any changes need to happen please call the number listed) Kim Gates MD [Primary Care Provider] - 01/22/24 2:15 pm (Baker jon de seguimiento cid sido programada con el Dr. Haddad el [place] 12/24/23 a las 2:15pm.) Discharge Medications: New cefuroxime axetil 250 mg Tablet 250 mg PO Q12H 10 Days Qty: 20 0RF loratadine 10 mg Tablet 10 mg PO BEDTIME 30 Days Qty: 30 0RF anastrozole 1 mg Tablet 1 mg PO DAILY 30 Days Qty: 30 0RF divalproex 125 mg Capsule, Delayed Rel Sprinkle 250 mg PO BID Qty: 60 0RF oxycodone 5 mg Tablet 5 mg PO Q4H PRN (Reason: Pain, Severe (Pain Scale 7-10)) 14 Days Qty: 28 0RF Rx Instructions: Partial Fill upon patient request. docusate sodium 100 mg Capsule 100 mg PO BID 30 Days Qty: 60 0RF polyethylene glycol 3350 17 gram Powder In Packet 17 g PO DAILY 30 Days Qty: 30 0RF omeprazole 20 mg Capsule,Delayed Release(Dr/Ec) 20 mg PO DAILY@0630 30 Days Qty: 30 0RF sennosides [Senna Lax] 8.6 mg Tablet 17.2 mg PO BEDTIME 30 Days Qty: 60 0RF insulin glargine [Lantus U-100 Insulin] 100 unit/mL Solution 12 unit subcut BEDTIME Qty: 10 0RF insulin glargine [Lantus U-100 Insulin] 100 unit/mL Solution 12 unit subcut DAILY Qty: 10 0RF lidocaine [Lidocaine Pain Relief] 4 % Adhesive Patch,Medicated 1 patch transdermal DAILY Qty: 30 0RF Protocol: Apply to: Apply to: right arm Continued mirtazapine 30 mg Tablet,Disintegrating 30 mg PO BEDTIME 30 Days Qty: 30 0RF trazodone 50 mg tablet 50 mg PO BEDTIME PRN (Reason: insomnia) 30 Days Qty: 60 0RF thiamine HCl (vitamin B1) 100 mg tablet 100 mg PO QAM 30 Days Qty: 30 0RF (DME) blood sugar diagnostic Strip See Rx Instructions .ROUTE .MEDSUPPLY Qty: 100 11RF Rx Instructions: 4x daily (DME) blood sugar diagnostic Strip 1 strip miscellaneous QID 30 Days Qty: 100 11RF amlodipine 5 mg tablet 5 mg PO QAM 30 Days Qty: 30 0RF levothyroxine 100 mcg tablet 100 mcg PO QAM 30 Days Qty: 30 0RF simvastatin 20 mg tablet 20 mg PO BEDTIME 30 Days Qty: 30 0RF ferrous sulfate [FeroSul] 325 mg (65 mg iron) tablet 325 mg PO QAM 30 Days Qty: 30 0RF aspirin 81 mg tablet,chewable 1 tab PO QAM Qty: 30 0RF alcohol swabs Pads, Medicated 1 pad topical TID-QID 30 Days Qty: 200 11RF furosemide 20 mg Tablet 20 mg PO DAILY 30 Days Qty: 30 0RF insulin lispro 100 unit/mL Solution 1 sliding scale dose SUBCUT USEASDIRECTD Qty: 10 0RF multivitamin with minerals Tablet 1 tab PO DAILY 30 Days Qty: 30 0RF losartan 100 mg tablet 100 mg PO DAILY 30 Days Qty: 30 0RF insulin aspart U-100 [Novolog FlexPen U-100 Insulin] 100 unit/mL (3 mL) insulin pen 14 - 18 unit subcut TID 30 Days Qty: 30 6RF (DME) pen needle, diabetic 32 gauge x 5/32 needle 4 ea miscellaneous DAILY 30 Days Qty: 100 11RF (DME) lancets 33 gauge misc 1 gauge miscellaneous QID 30 Days Qty: 100 11RF dapagliflozin propanediol 10 mg tablet 10 mg PO QAM 30 Days Qty: 30 0RF (DME) FreeStyle Ladan 2 Sensor Kit See Rx Instructions .ROUTE .MEDSUPPLY Qty: 2 5RF Rx Instructions: Once every 14 days magnesium oxide 400 mg magnesium Tablet 400 mg PO BID 30 Days Qty: 60 0RF Trulicity 4.5 mg/0.5 mL pen injector 4.5 mg subcut QWEEK Qty: 2 6RF Discontinued (DME) BD AutoShield Duo Pen Needle 30 gauge x 3/16 needle See Rx Instructions .Route Qty: 200 10RF Rx Instructions: As directed 4x/day cholecalciferol (vitamin D3) 50 mcg (2,000 unit) tablet 50 mcg PO DAILY 30 Days Qty: 30 11RF atorvastatin 40 mg tablet 40 mg PO DAILY 30 Days Qty: 30 11RF anastrozole 1 mg tablet 1 mg PO DAILY cetirizine 5 mg Tablet 5 mg PO BEDTIME divalproex 500 mg tablet,delayed release (DR/EC) 500 mg PO BEDTIME insulin glargine 100 unit/mL Solution 6 unit SUBCUT BEDTIME levetiracetam 500 mg tablet 500 mg PO BID losartan 100 mg tablet 100 mg PO DAILY vancomycin [Vancocin] 125 mg capsule See Rx Instructions .ROUTE .COMPLEX Rx Instructions: See instructions. risperidone 2 mg tablet 2 mg PO BID pantoprazole 40 mg tablet,delayed release (DR/EC) 40 mg PO DAILY risperidone 0.5 mg Tablet 0.5 mg PO BID PRN (Reason: Agitation) omeprazole 20 mg capsule,delayed release(DR/EC) 20 mg PO DAILY fluoxetine 20 mg capsule 40 mg PO DAILY mirtazapine 30 mg tablet 30 mg PO BEDTIME risperidone 1 mg tablet 1 mg PO BEDTIME ascorbate calcium (vitamin C) 500 mg tablet 500 mg PO DAILY insulin glargine 100 unit/mL (3 mL) insulin pen 30 unit subcut BEDTIME (DME) FreeStyle Ladan 2 [place] Misc See Rx Instructions .ROUTE .MEDSUPPLY Qty: 1 0RF Rx Instructions: As directed (DME) blood-glucose meter [FreeStyle Lite Meter] Kit See Rx Instructions .ROUTE .MEDSUPPLY Qty: 1 0RF Rx Instructions: As directed losartan 50 mg tablet 50 mg PO DAILY anastrozole 1 mg tablet 1 mg PO DAILY Discharge Orders: Discharge Order (Routine); Ordered 01/11/24 Ordered By: Zander Yung Diet: Diabetic diet Activity on Discharge: As tolerated Stand Alone Forms: Patient Portal Discharge page Print Language: Citizen Of [place] Care Plan Goals: Care plan goals achieved in this admission Health Concerns: Continue treatment with primary care physician and other specialist Plan of Treatment: Continue outpatient services. ECT can be restarted if patient relapses Assessment: The patient is an elderly [place]ian female with a past history of major depressive disorder with catatonia admitted for exacerbation of catatonia and depression that improved with ECT. At this moment the patient is much better with a brighter affect. Unfortunately when she was admitted she had a shoulder fracture. This moment safe to be discharged in the community
[2024-01-10 16:40] LABS: Glucose, Whole Blood 143 mg/dL (60-115)
--- NOTE | 2024-01-10 16:41 | PM.EVENT ---
Event Note Date of Service: 01/10/24 Event Note: Manual disimpaction done last Saturday Discussed with nursing staff today Patient apparently had bowel movements yesterday We will hold off on repeating disimpaction therefore Continue stool softeners, laxatives Time Spent With Patient Time: Total time managing care of this patient today ____ minutes.
[2024-01-10 20:00] VITALS: BP 120/59; PULSE 75; RESP 16; TEMP 36.8; O2SAT 99
[2024-01-10 20:56] LABS: Glucose, Whole Blood 307 mg/dL (60-115)
[2024-01-10] MEDS: Atorvastatin Calcium 10 MG TABLET PO (21:01)
[2024-01-10] MEDS: Sennosides 8.6 MG TABLET 17.2 MG PO (21:01)
[2024-01-10] MEDS: Loratadine 10 MG TABLET PO (21:02)
[2024-01-10] MEDS: Mirtazapine 30 MG TABLET PO (21:02)
[2024-01-10] MEDS: Insulin Lispro 100 UNIT/ML 3 ML VIAL SUBCUT (21:07)
[2024-01-11] MEDS: 0.9 % Sodium Chloride Flush 3 ML SYRINGE IVFLUSH ×3 (00:05→15:35)
[2024-01-11] MEDS: Acetaminophen 325 MG TABLET 650 MG PO ×3 (01:54→19:36)
[2024-01-11] MEDS: oxyCODONE HCl Immed Release 5 MG TABLET PO ×4 (01:55→17:45)
[2024-01-11 06:57] LABS: Glucose, Whole Blood 109 mg/dL (60-115)
[2024-01-11 08:08] VITALS: BP 152/81; PULSE 74; RESP 18; TEMP 36.1; O2SAT 98
[2024-01-11] MEDS: Losartan Potassium 50 MG TABLET 100 MG PO (08:31)
[2024-01-11] MEDS: Magnesium Oxide 400 MG TABLET PO ×2 (08:31→20:18)
[2024-01-11] MEDS: Docusate Sodium 100 MG CAPSULE PO ×2 (08:31→22:18)
[2024-01-11] MEDS: Thiamine HCL 100 MG TABLET PO (08:31)
[2024-01-11] MEDS: Multivitamin TABLET 1 TAB PO (08:31)
[2024-01-11] MEDS: Ferrous Sulfate 324 MG TABLET.DR PO (08:31)
[2024-01-11] MEDS: Furosemide 20 MG TABLET PO (08:31)
[2024-01-11] MEDS: cefuroxime axetiL 250 MG TABLET PO ×2 (08:31→20:20)
[2024-01-11] MEDS: amLODIPine Besylate 5 MG TABLET PO (08:32)
[2024-01-11] MEDS: Divalproex Sodium Sprinkles 125 MG CAP.DR.SPR 250 MG PO ×2 (08:32→20:19)
[2024-01-11] MEDS: Anastrozole 1 MG TABLET PO (08:32)
[2024-01-11] MEDS: Aspirin 81 MG TAB.CHEW PO (08:32)
[2024-01-11] MEDS: Insulin Glargine,Hum.rec.anlog 100 UNIT/ML 10 ML VIAL 12 UNIT SUBCUT ×2 (08:33→21:29)
[2024-01-11] MEDS: polyethylene glycoL 3350 17 GM POWD.PACK PO (08:34)
[2024-01-11] MEDS: Lidocaine 4 % Patch ADH..PATCH 1 PATCH TRANSDERMA (08:34)
--- NOTE | 2024-01-11 11:09 | P.PNPSI_ITS ---
Subjective Subjective Date of Service: 01/11/24 Reason For Visit: Major depressive disorder, severe, recurrent Subjective Notes: Conditional Voluntary Healthcare Proxy: Yes Interim History: Patient's case reviewed extensively with nursing staff and hospitalist staff. Spoke with [place] patient's family member. Patient's blood sugars had been significantly increased meds had been sent for discharge but appears that a number of the meds have not been what patient was taking recently. Hematocrit decreased hospitalist's service recommended holding off on discharge medical consultation was ordered Mental Status Exam Mental Status Exam Patient Appearance: Well Grooomed and Appropriate Patient Orientation: Person and Situation Level of Consciousness: Awake and Appropriate Patient Behavior: Guarded and Passive Mood Description: Constricted and Apprehensive Affect Description: Constricted Patient Cognition Impaired: Yes Ability to Follow Directions: Good Speech Pattern: Clear Hallucinations: None Delusions: Not Present Thought Process: Distracted and Slowed Thinking Thought Content: positive for [place] and positive for Poverty of Content Depressive Symptoms: Loss of Energy and Difficulty Concentrating Judgement: Fair Judgement and Insight: Patient has seemed more depressed complaints of pain Diagnostics Vital Signs (24Hr): Vital Signs - 24 hr 01/10/24 20:00 01/11/24 08:08 Temperature 98.3 F 97.0 F Pulse Rate 75 74 Respiratory Rate 16 18 Blood Pressure 120/59 L 152/81 H Pulse Oximetry 99 98 Oxygen Delivery Method Room Air Room Air BMI result Body Mass Index 21.9 Labs 01/11/24 12:40 01/11/24 12:40 Labs: Laboratory Results - last 48 hr 01/09/24 01/09/24 01/09/24 11:30 16:46 21:13 POC Glucose 369 H* 323 H 152 H Urine Color Urine Appearance Urine pH Ur Specific [place] Urine Protein Urine Glucose (UA) Urine Ketones Urine Blood Urine Nitrite Ur Leukocyte Esterase Urine RBC Urine WBC Ur Squamous Epith Cells Urine Bacteria Hyaline Casts 01/10/24 01/10/24 01/10/24 01:50 06:50 11:31 POC Glucose 149 H 240 H Urine Color Yellow Urine Appearance Turbid Urine pH 8.0 Ur Specific [place] 1.010 Urine Protein 30 (1+) H Urine Glucose (UA) Negative Urine Ketones Negative Urine Blood Moderate (2+) H Urine Nitrite Positive H Ur Leukocyte Esterase Large (3+) H Urine RBC >20 H Urine WBC >50 H Ur Squamous Epith Cells 0-2 Urine Bacteria 4+ Hyaline Casts 0-2 01/10/24 01/10/24 01/11/24 16:34 20:44 06:42 POC Glucose 143 H 307 H 109 Urine Color Urine Appearance Urine pH Ur Specific [place] Urine Protein Urine Glucose (UA) Urine Ketones Urine Blood Urine Nitrite Ur Leukocyte Esterase Urine RBC Urine WBC Ur Squamous Epith Cells Urine Bacteria Hyaline Casts Imaging Radiology Impressions: ITS Impressions Chest X-Ray 12/03/23 12:20 IMPRESSION: 1. Chronic interstitial prominence without focal consolidative airspace opacity. 2. Densities along the left lower chest which may represent pleural calcifications versus soft tissue calcifications. Correlation with lateral radiograph could help further evaluate. Electronically signed by: Viral Smallwood MD 12/03/2023 01:33 PM EDT RP Head CT 12/03/23 13:17 IMPRESSION: 1. No acute intracranial abnormalities. No intracranial hemorrhage or mass effect. 2. Moderate small vessel ischemic changes in the hemispheric white matter. 3. 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 4. Age advanced cerebral and cerebellar involutional changes with prominent ventricles. Cannot definitively exclude a component of communicating hydrocephalus given the appearance. Head CT 12/10/23 21:05 IMPRESSION: No acute intracranial abnormality including hemorrhage, mass effect, hydrocephalus, or acute territorial edematous infarction. Electronically signed by: Juan Alberto Murdock MD 12/10/2023 10:07 PM EDT RP Shoulder X-Ray 01/01/24 09:08 IMPRESSION: Comminuted fracture of the right shoulder Electronically signed by: Sean Kirkpatrick MD 01/01/2024 10:25 AM EDT RP KUB X-Ray 01/05/24 04:50 IMPRESSION: Findings as above. Electronically signed by: Rakesh Garcia MD 01/05/2024 05:10 PM EDT RP KUB X-Ray 01/08/24 11:50 IMPRESSION: No evidence of bowel obstruction. Moderate stool burden. Electronically signed by: John Purdy MD 01/08/2024 07:58 PM EDT RP Medications Medications Current Medications Acetaminophen (Acetaminophen 325 Mg Tablet) 650 mg PO Q6H PRN PRN Reason: Headache/Pain Mild Scale (1-3) Last Admin: 01/11/24 08:32 Dose: 650 mg Al Hydroxide/Mg Hydroxide (Magnesium Hydrox/Alum Hydrox 30 Ml Oral.Susp) 30 ml PO Q6H PRN PRN Reason: Heartburn/Nausea Amlodipine Besylate (Amlodipine Besylate 5 Mg Tablet) 5 mg PO DAILY COUNT INCLUDES THE [facility]; Protocol Last Admin: 01/11/24 08:32 Dose: 5 mg Anastrozole (Anastrozole 1 Mg Tablet) 1 mg PO DAILY COUNT INCLUDES THE [facility] Last Admin: 01/11/24 08:32 Dose: 1 mg Aspirin (Aspirin 81 Mg Tab.Chew) 81 mg PO DAILY COUNT INCLUDES THE [facility] Last Admin: 01/11/24 08:32 Dose: 81 mg Atorvastatin Calcium (Atorvastatin Calcium 10 Mg Tablet) 10 mg PO BEDTIME COUNT INCLUDES THE [facility] Last Admin: 01/10/24 21:01 Dose: 10 mg Bisacodyl (Bisacodyl 10 Mg Supp.Rect) 10 mg [place] DAILY PRN PRN Reason: constipation Cefuroxime Axetil (Cefuroxime Axetil 250 Mg Tablet) 250 mg PO Q12H COUNT INCLUDES THE [facility] Last Admin: 01/11/24 08:31 Dose: 250 mg Divalproex Sodium (Divalproex Sodium Sprinkles 125 Mg Cap.) 250 mg PO BID COUNT INCLUDES THE [facility] Last Admin: 01/11/24 08:32 Dose: 250 mg Docusate Sodium (Docusate Sodium 100 Mg Capsule) 100 mg PO BEDTIME PRN PRN Reason: Constipation Last Admin: 01/07/24 21:01 Dose: 100 mg Docusate Sodium (Docusate Sodium 100 Mg Capsule) 100 mg PO BID COUNT INCLUDES THE [facility] Last Admin: 01/11/24 08:31 Dose: 100 mg Ferrous Sulfate (Ferrous Sulfate 324 Mg Tablet.) 324 mg PO DAILY COUNT INCLUDES THE [facility] Last Admin: 01/11/24 08:31 Dose: 324 mg Furosemide (Furosemide 20 Mg Tablet) 20 mg PO DAILY COUNT INCLUDES THE [facility]; Protocol Last Admin: 01/11/24 08:31 Dose: 20 mg Glucose (Glucose Gel 15 Gm Gel..Gram.) 15 gm PO Q15M PRN; Protocol PRN Reason: per Hypoglycemia Standing Ord. Insulin Glargine (Insulin Glargine,Hum.Rec.Anlog 100 Unit/Ml 10 Ml Vial) 12 unit SUBCUT BEDTIME COUNT INCLUDES THE [facility] Last Admin: 01/10/24 21:06 Dose: 12 unit Insulin Glargine (Insulin Glargine,Hum.Rec.Anlog 100 Unit/Ml 10 Ml Vial) 12 unit SUBCUT DAILY COUNT INCLUDES THE [facility] Last Admin: 01/11/24 08:33 Dose: 12 unit Insulin Human Lispro (Insulin Lispro 100 Unit/Ml 3 Ml Vial) 0 unit SUBCUT QIDACHS COUNT INCLUDES THE [facility]; Protocol Last Admin: 01/11/24 07:31 Dose: Not Given Lidocaine (Lidocaine 4 % Patch Adh..Patch) 1 patch TRANSDERMA DAILY COUNT INCLUDES THE [facility]; Protocol Last Admin: 01/11/24 08:34 Dose: 1 patch Loratadine (Loratadine 10 Mg Tablet) 10 mg PO BEDTIME COUNT INCLUDES THE [facility] Last Admin: 01/10/24 21:02 Dose: 10 mg Losartan Potassium (Losartan Potassium 50 Mg Tablet) 100 mg PO DAILY COUNT INCLUDES THE [facility]; Protocol Last Admin: 01/11/24 08:31 Dose: 100 mg Magnesium Hydroxide (Milk Of Magnesia 30 Ml Oral.Susp) 30 ml PO DAILY PRN PRN Reason: Constipation Last Admin: 01/08/24 21:26 Dose: 30 ml Magnesium Oxide (Magnesium Oxide 400 Mg Tablet) 400 mg PO BID COUNT INCLUDES THE [facility] Last Admin: 01/11/24 08:31 Dose: 400 mg Mirtazapine (Mirtazapine 30 Mg Tablet) 30 mg PO BEDTIME COUNT INCLUDES THE [facility] Last Admin: 01/10/24 21:02 Dose: 30 mg Multivitamins/Vitamin C (Multivitamin Tablet) 1 tab PO DAILY COUNT INCLUDES THE [facility] Last Admin: 01/11/24 08:31 Dose: 1 tab Naloxone HCl (Naloxone Hcl 0.4 Mg/Ml Vial) 0.04 mg IVPUSH Q5M PRN PRN Reason: Excessive sedation or RR < 8 Naloxone HCl (Naloxone Hcl 0.4 Mg/Ml Vial) 0.04 mg IVPUSH Q5M PRN PRN Reason: Excessive sedation or RR < 8 Nicotine Polacrilex (Nicotine Polacrilex 2 Mg Gum) 4 mg BUCCAL Q2H PRN PRN Reason: Nicotine Cravings Omeprazole (Omeprazole 20 Mg Capsule.Dr) 20 mg PO DAILY@0630 COUNT INCLUDES THE [facility] Last Admin: 01/11/24 06:08 Dose: Not Given Oxycodone HCl (Oxycodone Hcl Immed Release 5 Mg Tablet) 5 mg PO Q4H PRN PRN Reason: Pain, Severe (Pain Scale 7-10) Last Admin: 01/11/24 08:32 Dose: 5 mg Polyethylene Glycol (Polyethylene Glycol 3350 17 Gm Powd.Pack) 17 gm PO DAILY COUNT INCLUDES THE [facility] Last Admin: 01/11/24 08:34 Dose: 17 gm Risperidone (Risperidone 0.5 Mg Tablet) 0.5 mg PO BID PRN PRN Reason: Restlessness Senna (Sennosides 8.6 Mg Tablet) 17.2 mg PO BEDTIME COUNT INCLUDES THE [facility] Last Admin: 01/10/24 21:01 Dose: 17.2 mg Sodium Chloride (0.9 % Sodium Chloride Flush 3 Ml Syringe) 3 ml IVFLUSH QSHIFT COUNT INCLUDES THE [facility] Last Admin: 01/11/24 08:33 Dose: 3 ml Thiamine HCl (Thiamine Hcl 100 Mg Tablet) 100 mg PO DAILY COUNT INCLUDES THE [facility] Last Admin: 01/11/24 08:31 Dose: 100 mg Tramadol HCl (Tramadol Hcl 50 Mg Tablet) 25 mg PO Q6H PRN PRN Reason: Pain, Moderate(Pain Scale 4-6) Last Admin: 01/08/24 09:52 Dose: 25 mg Trazodone HCl (Trazodone Hcl 50 Mg Tablet) 50 mg PO BEDTIME PRN PRN Reason: Insomnia Last Admin: 12/30/23 21:56 Dose: 50 mg Allergies Allergies Allergy/AdvReac Type Severity Reaction Status Date / Time atropine Allergy Unknown Shortness Verified 12/02/23 23:30 of Breath enoxaparin [From Lovenox] Allergy Unknown Unknown Verified 12/02/23 23:30 penicillin V Allergy Unknown Unknown Verified 03/19/23 07:30 pseudoephedrine [Aprodine] Allergy Unknown Unknown Verified 03/19/23 07:30 triprolidine [Aprodine] Allergy Unknown Unknown Verified 03/19/23 07:30 Assessment & Plan Assessment & Plan (1) Fecal impaction: Status: Acute Code(s): K56.41 - Fecal impaction Assessment and Plan: She has chronic constipation with fecal impaction. I did manual disimpaction at bedside. She was in left lateral decubitus position. Large amounts of very hard thick dry stools were removed from the rectal vault. I would recommend continuing with stool softeners including MiraLax, Colace, and oral fluids. She can have a Fleet enema as well I may need to repeat the disimpaction in about 2 days. Her abdominal exam is otherwise benign. (2) Major depressive disorder with psychotic features: Status: Acute Code(s): F32.3 - Major depressive disorder, single episode, severe with psychotic features (3) Type 2 diabetes mellitus with unspecified complications: Status: Acute Code(s): E11.8 - Type 2 diabetes mellitus with unspecified complications Plan Plan 1. Continue with same medications. 2. Do ECT as usual tomorrow. 3. Discharge planning. 4. Start Ceftin on 01/0801/11/2024 Patient seems more discouraged dysphoric complaints of pain blood sugar has been increase recent UTI recent balance obstruction needing to be impact disimpacted most likely secondary to narcotics case reviewed with hospitalist service felt unclear regarding multiple meds in discharge medication inpatient too fragile to be discharged in better clarity on what would be helpful post discharge. Hematocrit Chem profile ordered case reviewed extensively with hospitalist patient's discharge pharmacy not available at this time Reason for continued inpatient stay Substantial Risk for: inability to function, rapid decompensation and med/psych decompensation Time Spent With Patient Time: Total time managing care of this patient today 35___ minutes.
[2024-01-11 11:24] LABS: Glucose, Whole Blood 327 mg/dL (60-115)
[2024-01-11] MEDS: Insulin Lispro 100 UNIT/ML 3 ML VIAL SUBCUT ×3 (11:57→21:30)
[2024-01-11 12:45] LABS: MANUAL DIFF FLAG NO
[2024-01-11 12:48] LABS: Basophils Percent Auto 0.3 % (0-2); Eosinophils Percent Auto 1.2 % (0-4); Hematocrit 30.3 % (37.0-47.0); Hemoglobin 9.6 g/dl (12.0-16.0); Imm Gran Abs Auto 0.02 X10*3/uL (0.00-0.03); Imm Gran Pct Auto 0.6 % (0.0-0.4); Lymphocytes Absolute Auto 0.9 X10*3/uL (1.2-4.9); Lymphocytes Percent Auto 26.7 % (20-40); Mean Corpuscular HGB Conc 31.7 g/dl (31.0-35.0); Mean Corpuscular Hemoglobin 27.7 pg (27.0-33.0); Mean Corpuscular Volume 87.3 fL (80.0-98.0); Mean Platelet Volume 8.8 fL (9.4-12.3); Monocytes Absolute Auto 0.3 X10*3/uL (0.1-1.2); Monocytes Percent Auto 9.3 % (2-11); Neutrophils Absolute Auto 2.1 x10*3/uL (2.0-8.3); Neutrophils Percent Auto 61.9 % (45-73); Platelet Count 156 X10*3/uL (160-400); Red Blood Count 3.47 X10*6/uL (4.20-5.50); Red Cell Distribution Width 15.5 % (11.0-16.0); White Blood Count 3.4 X10*3/uL (4.8-10.8)
[2024-01-11 13:06] LABS: Alanine Aminotransferase 29 U/L (0-31); Albumin Level 3.2 g/dL (3.5-5.0); Alkaline Phosphatase 283 U/L (39-117); Anion Gap 14 (12-20); Aspartate Amino Transferase 32 U/L (5-31); Bilirubin Total 0.3 mg/dL (0.0-1.0); Blood Urea Nitrogen 25 mg/dL (9-16); Calcium 9.9 mg/dL (8.4-10.2); Carbon Dioxide 28 mmol/L (22-29); Chloride 98 mmol/L (96-108); Creatinine Clr Calc Pharmacy 30.9; Estimated Glomerular Filt Rate 50; Potassium 4.9 mmol/L (3.3-5.1); Sodium 135 mmol/L (135-145); Total Protein 8.2 g/dL (6.5-8.0)
[2024-01-11 13:08] LABS: Glucose Random 387 mg/dL (60-115)
--- NOTE | 2024-01-11 14:13 | PC.NURSE ---
This insurance writer contacted Dr. Greene regarding the multiple diabetic medications on the discharge paperwork and to clarify the orders for discharge as she has not taken Trulicty or dapagliflozin propanediol while inpatient (discharge paperwork reports to continue both these meds). Dr. Greene placed hospitalist consult to clarify diabetic medications and discharge cancelled with plan to discharge tomorrow.
[2024-01-11 16:15] LABS: Glucose, Whole Blood 258 mg/dL (60-115)
[2024-01-11] MEDS: traMADoL HCL 50 MG TABLET 25 MG PO (19:36)
[2024-01-11 20:00] VITALS: BP 123/59; PULSE 95; RESP 16; TEMP 36.4; O2SAT 98
[2024-01-11] MEDS: Sennosides 8.6 MG TABLET 17.2 MG PO (20:18)
[2024-01-11] MEDS: Atorvastatin Calcium 10 MG TABLET PO (20:18)
[2024-01-11] MEDS: Mirtazapine 30 MG TABLET PO (20:19)
[2024-01-11] MEDS: Loratadine 10 MG TABLET PO (20:19)
[2024-01-11 21:22] LABS: Glucose, Whole Blood 343 mg/dL (60-115)
[2024-01-12] MEDS: 0.9 % Sodium Chloride Flush 3 ML SYRINGE IVFLUSH ×4 (00:01→17:09)
[2024-01-12] MEDS: oxyCODONE HCl Immed Release 5 MG TABLET PO ×4 (01:39→22:17)
[2024-01-12 06:57] LABS: Glucose, Whole Blood 252 mg/dL (60-115)
[2024-01-12] MEDS: Insulin Lispro 100 UNIT/ML 3 ML VIAL SUBCUT ×3 (07:32→20:13)
[2024-01-12 08:00] VITALS: BP 99/58; PULSE 85; RESP 16; TEMP 36.1; O2SAT 98
[2024-01-12] MEDS: Anastrozole 1 MG TABLET PO (09:24)
[2024-01-12] MEDS: Docusate Sodium 100 MG CAPSULE PO ×3 (09:26→22:29)
[2024-01-12] MEDS: Aspirin 81 MG TAB.CHEW PO (09:26)
[2024-01-12] MEDS: Divalproex Sodium Sprinkles 125 MG CAP.DR.SPR 250 MG PO ×2 (09:27→20:10)
[2024-01-12] MEDS: Ferrous Sulfate 324 MG TABLET.DR PO (09:29)
[2024-01-12] MEDS: Thiamine HCL 100 MG TABLET PO (09:29)
[2024-01-12] MEDS: Multivitamin TABLET 1 TAB PO (09:29)
[2024-01-12] MEDS: Magnesium Oxide 400 MG TABLET PO ×2 (09:29→20:10)
[2024-01-12] MEDS: cefuroxime axetiL 250 MG TABLET PO ×2 (09:30→22:00)
[2024-01-12] MEDS: Insulin Glargine,Hum.rec.anlog 100 UNIT/ML 10 ML VIAL 12 UNIT SUBCUT ×2 (09:33→20:12)
[2024-01-12 09:39] VITALS: BP 122/58; PULSE 78
[2024-01-12] MEDS: Lidocaine 4 % Patch ADH..PATCH 1 PATCH TRANSDERMA (09:41)
[2024-01-12] MEDS: Furosemide 20 MG TABLET PO (09:43)
[2024-01-12] MEDS: Losartan Potassium 50 MG TABLET 100 MG PO (09:43)
[2024-01-12] MEDS: amLODIPine Besylate 5 MG TABLET PO (09:43)
[2024-01-12] MEDS: polyethylene glycoL 3350 17 GM POWD.PACK PO (09:44)
[2024-01-12] MEDS: Acetaminophen 325 MG TABLET 650 MG PO ×2 (11:04→20:11)
[2024-01-12] MEDS: traMADoL HCL 50 MG TABLET 25 MG PO (11:04)
[2024-01-12 11:31] LABS: Glucose, Whole Blood 180 mg/dL (60-115)
[2024-01-12 16:15] LABS: Glucose, Whole Blood 96 mg/dL (60-115)
[2024-01-12 19:54] LABS: Glucose, Whole Blood 282 mg/dL (60-115)
[2024-01-12 20:00] VITALS: BP 111/56; PULSE 71; RESP 16; TEMP 36.8; O2SAT 96
[2024-01-12] MEDS: Mirtazapine 30 MG TABLET PO (20:09)
[2024-01-12] MEDS: Sennosides 8.6 MG TABLET 17.2 MG PO (20:09)
[2024-01-12] MEDS: Loratadine 10 MG TABLET PO (20:10)
[2024-01-12] MEDS: Atorvastatin Calcium 10 MG TABLET PO (20:12)
--- NOTE | 2024-01-12 22:16 | HO.PSYCHPN ---
Subjective Subjective Date of Service: 01/12/24 Reason For Visit: Major depressive disorder, severe, recurrent Subjective Notes: Conditional Voluntary Healthcare Proxy: Yes Interim History: Patient has been somewhat lethargic and depressed seems to be relapsing from recent ECT complains of ongoing right shoulder pain has been on narcotics discharge on hold discharge medications need to be re evaluated and coordinated patient not on antidepressants Mental Status Exam Mental Status Exam Patient Appearance: Fatigued Patient Orientation: Person and Situation Level of Consciousness: Sedated Patient Behavior: Guarded and Passive Mood Description: Constricted, Depressed and Apprehensive Affect Description: Constricted Patient Cognition Impaired: Yes Ability to Follow Directions: Good Speech Pattern: Clear Hallucinations: None Delusions: Not Present Thought Process: Distracted and Slowed Thinking Thought Content: positive for [place] and positive for Poverty of Content Depressive Symptoms: Loss of Energy and Difficulty Concentrating Judgement: Fair Judgement and Insight: Patient has seemed more depressed complaints of pain fatigue and lethargy noted Diagnostics Vital Signs (24Hr): Vital Signs - 24 hr 01/12/24 08:00 01/12/24 09:39 01/12/24 20:00 Temperature 96.9 F 98.3 F Pulse Rate 85 78 71 Respiratory Rate 16 16 Blood Pressure 99/58 L 122/58 L 111/56 L Pulse Oximetry 98 96 Oxygen Delivery Method Room Air Room Air BMI result Body Mass Index 21.9 Labs 01/11/24 12:40 01/11/24 12:40 Labs: Laboratory Results - last 48 hr 01/11/24 01/11/24 01/11/24 06:42 11:20 12:40 WBC 3.4 L RBC 3.47 L Hgb 9.6 L Hct 30.3 L D MCV 87.3 MCH 27.7 MCHC 31.7 RDW 15.5 Plt Count 156 L MPV 8.8 L Immature Gran % (Auto) 0.6 H Neut % (Auto) 61.9 Lymph % (Auto) 26.7 [place] % (Auto) 9.3 Eos % (Auto) 1.2 Baso % (Auto) 0.3 Lymph # (Auto) 0.9 L [place] # (Auto) 0.3 Eos # (Auto) 0.0 Baso # (Auto) 0.0 Abs Immat Gran (auto) 0.02 Absolute Neuts (auto) 2.1 Absolute Nucleated RBC 0.000 Nucleated RBC % (auto) 0.0 Sodium 135 Potassium 4.9 Chloride 98 Carbon Dioxide 28 Anion Gap 14 BUN 25 H Creatinine 1.07 Estim Creat Clear Calc 30.9 Estimated GFR 50 POC Glucose 109 327 H Random Glucose 387 H* Calcium 9.9 Total Bilirubin 0.3 AST 32 H ALT 29 Alkaline Phosphatase 283 H Total Protein 8.2 H Albumin 3.2 L Hold Yellow Top See Note 01/11/24 01/11/24 01/12/24 16:05 20:56 06:40 WBC RBC Hgb Hct MCV MCH MCHC RDW Plt Count MPV Immature Gran % (Auto) Neut % (Auto) Lymph % (Auto) [place] % (Auto) Eos % (Auto) Baso % (Auto) Lymph # (Auto) [place] # (Auto) Eos # (Auto) Baso # (Auto) Abs Immat Gran (auto) Absolute Neuts (auto) Absolute Nucleated RBC Nucleated RBC % (auto) Sodium Potassium Chloride Carbon Dioxide Anion Gap BUN Creatinine Estim Creat Clear Calc Estimated GFR POC Glucose 258 H 343 H 252 H Random Glucose Calcium Total Bilirubin AST ALT Alkaline Phosphatase Total Protein Albumin Hold Yellow Top 01/12/24 01/12/24 01/12/24 11:25 16:09 19:50 WBC RBC Hgb Hct MCV MCH MCHC RDW Plt Count MPV Immature Gran % (Auto) Neut % (Auto) Lymph % (Auto) [place] % (Auto) Eos % (Auto) Baso % (Auto) Lymph # (Auto) [place] # (Auto) Eos # (Auto) Baso # (Auto) Abs Immat Gran (auto) Absolute Neuts (auto) Absolute Nucleated RBC Nucleated RBC % (auto) Sodium Potassium Chloride Carbon Dioxide Anion Gap BUN Creatinine Estim Creat Clear Calc Estimated GFR POC Glucose 180 H 96 282 H Random Glucose Calcium Total Bilirubin AST ALT Alkaline Phosphatase Total Protein Albumin Hold Yellow Top Imaging Radiology Impressions: ITS Impressions Chest X-Ray 12/03/23 12:20 IMPRESSION: 1. Chronic interstitial prominence without focal consolidative airspace opacity. 2. Densities along the left lower chest which may represent pleural calcifications versus soft tissue calcifications. Correlation with lateral radiograph could help further evaluate. Electronically signed by: Viral Smallwood MD 12/03/2023 01:[address] 12/03/23 13:17 IMPRESSION: 1. No acute intracranial abnormalities. No intracranial hemorrhage or mass effect. 2. Moderate small vessel ischemic changes in the hemispheric white matter. 3. 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 4. Age advanced cerebral and cerebellar involutional changes with prominent ventricles. Cannot definitively exclude a component of communicating hydrocephalus given the appearance. Head CT 12/10/23 21:05 IMPRESSION: No acute intracranial abnormality including hemorrhage, mass effect, hydrocephalus, or acute territorial edematous infarction. Electronically signed by: Juan Alberto Murdock MD 12/10/2023 10:07 PM EDT RP Shoulder X-Ray 01/01/24 09:08 IMPRESSION: Comminuted fracture of the right shoulder Electronically signed by: Sean Kirkpatrick MD 01/01/2024 10:25 AM EDT RP KUB X-Ray 01/05/24 04:50 IMPRESSION: Findings as above. Electronically signed by: Rakesh Garcia MD 01/05/2024 05:10 PM EDT RP KUB X-Ray 01/08/24 11:50 IMPRESSION: No evidence of bowel obstruction. Moderate stool burden. Electronically signed by: John Purdy MD 01/08/2024 07:58 PM EDT RP Medications Medications Current Medications Acetaminophen (Acetaminophen 325 Mg Tablet) 650 mg PO Q6H PRN PRN Reason: Headache/Pain Mild Scale (1-3) Last Admin: 01/12/24 20:11 Dose: 650 mg Al Hydroxide/Mg Hydroxide (Magnesium Hydrox/Alum Hydrox 30 Ml Oral.Susp) 30 ml PO Q6H PRN PRN Reason: Heartburn/Nausea Amlodipine Besylate (Amlodipine Besylate 5 Mg Tablet) 5 mg PO DAILY [facility]; Protocol Last Admin: 01/12/24 09:43 Dose: 5 mg Anastrozole (Anastrozole 1 Mg Tablet) 1 mg PO DAILY [facility] Last Admin: 01/12/24 09:24 Dose: 1 mg Aspirin (Aspirin 81 Mg Tab.Chew) 81 mg PO DAILY [facility] Last Admin: 01/12/24 09:26 Dose: 81 mg Atorvastatin Calcium (Atorvastatin Calcium 10 Mg Tablet) 10 mg PO BEDTIME [facility] Last Admin: 01/12/24 20:12 Dose: 10 mg Bisacodyl (Bisacodyl 10 Mg Supp.Rect) 10 mg [place] DAILY PRN PRN Reason: constipation Cefuroxime Axetil (Cefuroxime Axetil 250 Mg Tablet) 250 mg PO Q12H [facility] Last Admin: 01/12/24 09:30 Dose: 250 mg Divalproex Sodium (Divalproex Sodium Sprinkles 125 Mg Cap.) 250 mg PO BID [facility] Last Admin: 01/12/24 20:10 Dose: 250 mg Docusate Sodium (Docusate Sodium 100 Mg Capsule) 100 mg PO BEDTIME PRN PRN Reason: Constipation Last Admin: 01/12/24 20:09 Dose: 100 mg Docusate Sodium (Docusate Sodium 100 Mg Capsule) 100 mg PO BID [facility] Last Admin: 01/12/24 09:26 Dose: 100 mg Ferrous Sulfate (Ferrous Sulfate 324 Mg Tablet.Dr) 324 mg PO DAILY [facility] Last Admin: 01/12/24 09:29 Dose: 324 mg Furosemide (Furosemide 20 Mg Tablet) 20 mg PO DAILY [facility]; Protocol Last Admin: 01/12/24 09:43 Dose: 20 mg Glucose (Glucose Gel 15 Gm Gel..Gram.) 15 gm PO Q15M PRN; Protocol PRN Reason: per Hypoglycemia Standing Ord. Insulin Glargine (Insulin Glargine,Hum.Rec.Anlog 100 Unit/Ml 10 Ml Vial) 12 unit SUBCUT BEDTIME [facility] Last Admin: 01/12/24 20:12 Dose: 12 unit Insulin Glargine (Insulin Glargine,Hum.Rec.Anlog 100 Unit/Ml 10 Ml Vial) 12 unit SUBCUT DAILY [facility] Last Admin: 01/12/24 09:33 Dose: 12 unit Insulin Human Lispro (Insulin Lispro 100 Unit/Ml 3 Ml Vial) 0 unit SUBCUT QIDACHS [facility]; Protocol Last Admin: 01/12/24 20:13 Dose: 6 unit Lidocaine (Lidocaine 4 % Patch Adh..Patch) 1 patch TRANSDERMA DAILY [facility]; Protocol Last Admin: 01/12/24 09:41 Dose: 1 patch Loratadine (Loratadine 10 Mg Tablet) 10 mg PO BEDTIME [facility] Last Admin: 01/12/24 20:10 Dose: 10 mg Losartan Potassium (Losartan Potassium 50 Mg Tablet) 100 mg PO DAILY [facility]; Protocol Last Admin: 01/12/24 09:43 Dose: 100 mg Magnesium Hydroxide (Milk Of Magnesia 30 Ml Oral.Susp) 30 ml PO DAILY PRN PRN Reason: Constipation Last Admin: 01/08/24 21:26 Dose: 30 ml Magnesium Oxide (Magnesium Oxide 400 Mg Tablet) 400 mg PO BID [facility] Last Admin: 01/12/24 20:10 Dose: 400 mg Mirtazapine (Mirtazapine 30 Mg Tablet) 30 mg PO BEDTIME [facility] Last Admin: 01/12/24 20:09 Dose: 30 mg Multivitamins/Vitamin C (Multivitamin Tablet) 1 tab PO DAILY [facility] Last Admin: 01/12/24 09:29 Dose: 1 tab Naloxone HCl (Naloxone Hcl 0.4 Mg/Ml Vial) 0.04 mg IVPUSH Q5M PRN PRN Reason: Excessive sedation or RR < 8 Nicotine Polacrilex (Nicotine Polacrilex 2 Mg Gum) 4 mg BUCCAL Q2H PRN PRN Reason: Nicotine Cravings Omeprazole (Omeprazole 20 Mg Capsule.Dr) 20 mg PO DAILY@0630 [facility] Last Admin: 01/12/24 06:36 Dose: Not Given Oxycodone HCl (Oxycodone Hcl Immed Release 5 Mg Tablet) 5 mg PO Q4H PRN PRN Reason: Pain, Severe (Pain Scale 7-10) Last Admin: 01/12/24 17:33 Dose: 5 mg Polyethylene Glycol (Polyethylene Glycol 3350 17 Gm Powd.Pack) 17 gm PO DAILY [facility] Last Admin: 01/12/24 09:44 Dose: 17 gm Risperidone (Risperidone 0.5 Mg Tablet) 0.5 mg PO BID PRN PRN Reason: Restlessness Senna (Sennosides 8.6 Mg Tablet) 17.2 mg PO BEDTIME [facility] Last Admin: 01/12/24 20:09 Dose: 17.2 mg Sodium Chloride (0.9 % Sodium Chloride Flush 3 Ml Syringe) 3 ml IVFLUSH QSHIFT [facility] Last Admin: 01/12/24 17:09 Dose: 3 ml Thiamine HCl (Thiamine Hcl 100 Mg Tablet) 100 mg PO DAILY [facility] Last Admin: 01/12/24 09:29 Dose: 100 mg Tramadol HCl (Tramadol Hcl 50 Mg Tablet) 25 mg PO Q6H PRN PRN Reason: Pain, Moderate(Pain Scale 4-6) Last Admin: 01/12/24 11:04 Dose: 25 mg Trazodone HCl (Trazodone Hcl 50 Mg Tablet) 50 mg PO BEDTIME PRN PRN Reason: Insomnia Last Admin: 12/30/23 21:56 Dose: 50 mg Allergies Allergies Allergy/AdvReac Type Severity Reaction Status Date / Time atropine Allergy Unknown Shortness Verified 12/02/23 23:30 of Breath enoxaparin [From Lovenox] Allergy Unknown Unknown Verified 12/02/23 23:30 penicillin V Allergy Unknown Unknown Verified 03/19/23 07:30 pseudoephedrine [Aprodine] Allergy Unknown Unknown Verified 03/19/23 07:30 triprolidine [Aprodine] Allergy Unknown Unknown Verified 03/19/23 07:30 Assessment & Plan Assessment & Plan (1) Major depressive disorder with psychotic features: Status: Acute Code(s): F32.3 - Major depressive disorder, single episode, severe with psychotic features (2) Type 2 diabetes mellitus with unspecified complications: Status: Acute Code(s): E11.8 - Type 2 diabetes mellitus with unspecified complications Plan Plan 1. Continue with same medications. 2. Do ECT as usual tomorrow. 3. Discharge planning. 4. Start Ceftin on 01/0801/11/2024 Patient seems more discouraged dysphoric complaints of pain blood sugar has been increase recent UTI recent balance obstruction needing to be impact disimpacted most likely secondary to narcotics case reviewed with hospitalist service felt unclear regarding multiple meds in discharge medication inpatient too fragile to be discharged in better clarity on what would be helpful post discharge. Hematocrit Chem profile ordered case reviewed extensively with hospitalist patient's discharge pharmacy not available at this time 01/12/2024 Consider restart ECT patient lethargic ongoing complaints of pain recent UTI question contributing factor to what appeared to be relapse symptoms hospitalist had concerns regarding diabetes regimen and recommended coordination if patient were going to be discharged during the day when there could be immediate nursing care Reason for continued inpatient stay Substantial Risk for: inability to function, rapid decompensation and med/psych decompensation Time Spent With Patient Time: Total time managing care of this patient today ____ minutes.
[2024-01-13 06:56] LABS: Glucose, Whole Blood 102 mg/dL (60-115)
[2024-01-13 09:09] VITALS: BP 108/57; PULSE 74; RESP 20; TEMP 36.4; O2SAT 97
[2024-01-13] MEDS: Insulin Glargine,Hum.rec.anlog 100 UNIT/ML 10 ML VIAL 12 UNIT SUBCUT ×2 (09:12→22:00)
[2024-01-13] MEDS: 0.9 % Sodium Chloride Flush 3 ML SYRINGE IVFLUSH (09:13)
[2024-01-13] MEDS: Aspirin 81 MG TAB.CHEW PO (09:17)
[2024-01-13] MEDS: Thiamine HCL 100 MG TABLET PO (09:18)
[2024-01-13] MEDS: Docusate Sodium 100 MG CAPSULE PO ×2 (09:18→22:04)
[2024-01-13] MEDS: Furosemide 20 MG TABLET PO (09:18)
[2024-01-13] MEDS: Multivitamin TABLET 1 TAB PO (09:19)
[2024-01-13] MEDS: Ferrous Sulfate 324 MG TABLET.DR PO (09:19)
[2024-01-13] MEDS: Omeprazole 20 MG CAPSULE.DR PO (09:19)
[2024-01-13] MEDS: Losartan Potassium 50 MG TABLET 100 MG PO (09:19)
[2024-01-13] MEDS: amLODIPine Besylate 5 MG TABLET PO (09:20)
[2024-01-13] MEDS: Divalproex Sodium Sprinkles 125 MG CAP.DR.SPR 250 MG PO ×2 (09:20→22:08)
[2024-01-13] MEDS: Magnesium Oxide 400 MG TABLET PO ×2 (09:20→22:08)
[2024-01-13] MEDS: Anastrozole 1 MG TABLET PO (09:22)
[2024-01-13] MEDS: Lidocaine 4 % Patch ADH..PATCH 1 PATCH TRANSDERMA (09:29)
[2024-01-13] MEDS: polyethylene glycoL 3350 17 GM POWD.PACK PO (09:31)
[2024-01-13] MEDS: oxyCODONE HCl Immed Release 5 MG TABLET PO ×3 (09:48→22:07)
[2024-01-13] MEDS: cefuroxime axetiL 250 MG TABLET PO ×2 (09:49→22:08)
[2024-01-13] MEDS: traMADoL HCL 50 MG TABLET 25 MG PO ×2 (10:44→23:45)
[2024-01-13 11:29] LABS: Glucose, Whole Blood 280 mg/dL (60-115)
[2024-01-13] MEDS: Insulin Lispro 100 UNIT/ML 3 ML VIAL SUBCUT ×2 (11:36→16:53)
[2024-01-13] MEDS: Acetaminophen 325 MG TABLET 650 MG PO ×2 (11:45→23:45)
--- NOTE | 2024-01-13 12:39 | HO.PSYCHPN ---
Subjective Subjective Date of Service: 01/13/24 Reason For Visit: Major depressive disorder, severe, recurrent Subjective Notes: Conditional Voluntary Interim History: The nursing staff reported the patient had been withdrawn, she was not discharged over the weekend since the discharge planning on PCP was not fully achieved. On interview the patient denies new symptoms. The child welfare social worker reported that she could be discharged tomorrow. Mental Status Exam Mental Status Exam Patient Appearance: Appropriate Patient Orientation: Person and Situation Level of Consciousness: Awake and Appropriate Patient Behavior: Guarded and Passive Mood Description: Withdrawn Affect Description: Constricted Patient Cognition Impaired: Yes Ability to Follow Directions: Good Speech Pattern: Clear Hallucinations: None Delusions: Not Present Thought Process: Distracted and Slowed Thinking Thought Content: positive for [place] Judgement: Poor Diagnostics Vital Signs (24Hr): Vital Signs - 24 hr 01/12/24 20:00 01/13/24 09:09 Temperature 98.3 F 97.6 F Pulse Rate 71 74 Respiratory Rate 16 20 Blood Pressure 111/56 L 108/57 L Pulse Oximetry 96 97 Oxygen Delivery Method Room Air Room Air BMI result Body Mass Index 21.9 Labs 01/11/24 12:40 01/11/24 12:40 Labs: Laboratory Results - last 48 hr 01/11/24 01/11/24 01/11/24 12:40 16:05 20:56 WBC 3.4 L RBC 3.47 L Hgb 9.6 L Hct 30.3 L D MCV 87.3 MCH 27.7 MCHC 31.7 RDW 15.5 Plt Count 156 L MPV 8.8 L Immature Gran % (Auto) 0.6 H Neut % (Auto) 61.9 Lymph % (Auto) 26.7 [place] % (Auto) 9.3 Eos % (Auto) 1.2 Baso % (Auto) 0.3 Lymph # (Auto) 0.9 L [place] # (Auto) 0.3 Eos # (Auto) 0.0 Baso # (Auto) 0.0 Abs Immat Gran (auto) 0.02 Absolute Neuts (auto) 2.1 Absolute Nucleated RBC 0.000 Nucleated RBC % (auto) 0.0 Sodium 135 Potassium 4.9 Chloride 98 Carbon Dioxide 28 Anion Gap 14 BUN 25 H Creatinine 1.07 Estim Creat Clear Calc 30.9 Estimated GFR 50 POC Glucose 258 H 343 H Random Glucose 387 H* Calcium 9.9 Total Bilirubin 0.3 AST 32 H ALT 29 Alkaline Phosphatase 283 H Total Protein 8.2 H Albumin 3.2 L Hold Yellow Top See Note 01/12/24 01/12/24 01/12/24 06:40 11:25 16:09 WBC RBC Hgb Hct MCV MCH MCHC RDW Plt Count MPV Immature Gran % (Auto) Neut % (Auto) Lymph % (Auto) [place] % (Auto) Eos % (Auto) Baso % (Auto) Lymph # (Auto) [place] # (Auto) Eos # (Auto) Baso # (Auto) Abs Immat Gran (auto) Absolute Neuts (auto) Absolute Nucleated RBC Nucleated RBC % (auto) Sodium Potassium Chloride Carbon Dioxide Anion Gap BUN Creatinine Estim Creat Clear Calc Estimated GFR POC Glucose 252 H 180 H 96 Random Glucose Calcium Total Bilirubin AST ALT Alkaline Phosphatase Total Protein Albumin Hold Yellow Top 01/12/24 01/13/24 01/13/24 19:50 06:41 11:23 WBC RBC Hgb Hct MCV MCH MCHC RDW Plt Count MPV Immature Gran % (Auto) Neut % (Auto) Lymph % (Auto) [place] % (Auto) Eos % (Auto) Baso % (Auto) Lymph # (Auto) [place] # (Auto) Eos # (Auto) Baso # (Auto) Abs Immat Gran (auto) Absolute Neuts (auto) Absolute Nucleated RBC Nucleated RBC % (auto) Sodium Potassium Chloride Carbon Dioxide Anion Gap BUN Creatinine Estim Creat Clear Calc Estimated GFR POC Glucose 282 H 102 280 H Random Glucose Calcium Total Bilirubin AST ALT Alkaline Phosphatase Total Protein Albumin Hold Yellow Top Imaging Radiology Impressions: ITS Impressions Chest X-Ray 12/03/23 12:20 IMPRESSION: 1. Chronic interstitial prominence without focal consolidative airspace opacity. 2. Densities along the left lower chest which may represent pleural calcifications versus soft tissue calcifications. Correlation with lateral radiograph could help further evaluate. Electronically signed by: Viral Smallwood MD 12/03/2023 01:33 PM EDT RP Head CT 12/03/23 13:17 IMPRESSION: 1. No acute intracranial abnormalities. No intracranial hemorrhage or mass effect. 2. Moderate small vessel ischemic changes in the hemispheric white matter. 3. 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 4. Age advanced cerebral and cerebellar involutional changes with prominent ventricles. Cannot definitively exclude a component of communicating hydrocephalus given the appearance. Head CT 12/10/23 21:05 IMPRESSION: No acute intracranial abnormality including hemorrhage, mass effect, hydrocephalus, or acute territorial edematous infarction. Electronically signed by: Juan Alberto Murdock MD 12/10/2023 10:07 PM EDT RP Shoulder X-Ray 01/01/24 09:08 IMPRESSION: Comminuted fracture of the right shoulder Electronically signed by: Sean Kirkpatrick MD 01/01/2024 10:25 AM EDT RP KUB X-Ray 01/05/24 04:50 IMPRESSION: Findings as above. Electronically signed by: Rakesh Garcia MD 01/05/2024 05:10 PM EDT RP KUB X-Ray 01/08/24 11:50 IMPRESSION: No evidence of bowel obstruction. Moderate stool burden. Electronically signed by: oJhn Purdy MD 01/08/2024 07:58 PM EDT RP Medications Medications Current Medications Acetaminophen (Acetaminophen 325 Mg Tablet) 650 mg PO Q6H PRN PRN Reason: Headache/Pain Mild Scale (1-3) Last Admin: 01/13/24 11:45 Dose: 650 mg Al Hydroxide/Mg Hydroxide (Magnesium Hydrox/Alum Hydrox 30 Ml Oral.Susp) 30 ml PO Q6H PRN PRN Reason: Heartburn/Nausea Amlodipine Besylate (Amlodipine Besylate 5 Mg Tablet) 5 mg PO DAILY [facility]; Protocol Last Admin: 01/13/24 09:20 Dose: 5 mg Anastrozole (Anastrozole 1 Mg Tablet) 1 mg PO DAILY [facility] Last Admin: 01/13/24 09:22 Dose: 1 mg Aspirin (Aspirin 81 Mg Tab.Chew) 81 mg PO DAILY [facility] Last Admin: 01/13/24 09:17 Dose: 81 mg Atorvastatin Calcium (Atorvastatin Calcium 10 Mg Tablet) 10 mg PO BEDTIME [facility] Last Admin: 01/12/24 20:12 Dose: 10 mg Bisacodyl (Bisacodyl 10 Mg Supp.Rect) 10 mg [place] DAILY PRN PRN Reason: constipation Cefuroxime Axetil (Cefuroxime Axetil 250 Mg Tablet) 250 mg PO Q12H [facility] Last Admin: 01/13/24 09:49 Dose: 250 mg Divalproex Sodium (Divalproex Sodium Sprinkles 125 Mg ) 250 mg PO BID [facility] Last Admin: 01/13/24 09:20 Dose: 250 mg Docusate Sodium (Docusate Sodium 100 Mg Capsule) 100 mg PO BEDTIME PRN PRN Reason: Constipation Last Admin: 01/12/24 20:09 Dose: 100 mg Docusate Sodium (Docusate Sodium 100 Mg Capsule) 100 mg PO BID [facility] Last Admin: 01/13/24 09:18 Dose: 100 mg Ferrous Sulfate (Ferrous Sulfate 324 Mg Tablet.Dr) 324 mg PO DAILY [facility] Last Admin: 01/13/24 09:19 Dose: 324 mg Furosemide (Furosemide 20 Mg Tablet) 20 mg PO DAILY [facility]; Protocol Last Admin: 01/13/24 09:18 Dose: 20 mg Glucose (Glucose Gel 15 Gm Gel..Gram.) 15 gm PO Q15M PRN; Protocol PRN Reason: per Hypoglycemia Standing Ord. Insulin Glargine (Insulin Glargine,Hum.Rec.Anlog 100 Unit/Ml 10 Ml Vial) 12 unit SUBCUT BEDTIME [facility] Last Admin: 01/12/24 20:12 Dose: 12 unit Insulin Glargine (Insulin Glargine,Hum.Rec.Anlog 100 Unit/Ml 10 Ml Vial) 12 unit SUBCUT DAILY [facility] Last Admin: 01/13/24 09:12 Dose: 12 unit Insulin Human Lispro (Insulin Lispro 100 Unit/Ml 3 Ml Vial) 0 unit SUBCUT QIDACHS [facility]; Protocol Last Admin: 01/13/24 11:36 Dose: 10 unit Lidocaine (Lidocaine 4 % Patch Adh..Patch) 1 patch TRANSDERMA DAILY [facility]; Protocol Last Admin: 01/13/24 09:29 Dose: 1 patch Loratadine (Loratadine 10 Mg Tablet) 10 mg PO BEDTIME [facility] Last Admin: 01/12/24 20:10 Dose: 10 mg Losartan Potassium (Losartan Potassium 50 Mg Tablet) 100 mg PO DAILY [facility]; Protocol Last Admin: 01/13/24 09:19 Dose: 100 mg Magnesium Hydroxide (Milk Of Magnesia 30 Ml Oral.Susp) 30 ml PO DAILY PRN PRN Reason: Constipation Last Admin: 01/08/24 21:26 Dose: 30 ml Magnesium Oxide (Magnesium Oxide 400 Mg Tablet) 400 mg PO BID [facility] Last Admin: 01/13/24 09:20 Dose: 400 mg Mirtazapine (Mirtazapine 30 Mg Tablet) 30 mg PO BEDTIME [facility] Last Admin: 01/12/24 20:09 Dose: 30 mg Multivitamins/Vitamin C (Multivitamin Tablet) 1 tab PO DAILY [facility] Last Admin: 01/13/24 09:19 Dose: 1 tab Naloxone HCl (Naloxone Hcl 0.4 Mg/Ml Vial) 0.04 mg IVPUSH Q5M PRN PRN Reason: Excessive sedation or RR < 8 Nicotine Polacrilex (Nicotine Polacrilex 2 Mg Gum) 4 mg BUCCAL Q2H PRN PRN Reason: Nicotine Cravings Omeprazole (Omeprazole 20 Mg Capsule.Dr) 20 mg PO DAILY@629 [facility] Last Admin: 01/13/24 09:19 Dose: 20 mg Oxycodone HCl (Oxycodone Hcl Immed Release 5 Mg Tablet) 5 mg PO Q4H PRN PRN Reason: Pain, Severe (Pain Scale 7-10) Last Admin: 01/13/24 09:48 Dose: 5 mg Polyethylene Glycol (Polyethylene Glycol 3350 17 Gm Powd.Pack) 17 gm PO DAILY [facility] Last Admin: 01/13/24 09:31 Dose: 17 gm Risperidone (Risperidone 0.5 Mg Tablet) 0.5 mg PO BID PRN PRN Reason: Restlessness Senna (Sennosides 8.6 Mg Tablet) 17.2 mg PO BEDTIME [facility] Last Admin: 01/12/24 20:09 Dose: 17.2 mg Sodium Chloride (0.9 % Sodium Chloride Flush 3 Ml Syringe) 3 ml IVFLUSH QSHIFT [facility] Last Admin: 01/13/24 09:13 Dose: 3 ml Thiamine HCl (Thiamine Hcl 100 Mg Tablet) 100 mg PO DAILY [facility] Last Admin: 01/13/24 09:18 Dose: 100 mg Tramadol HCl (Tramadol Hcl 50 Mg Tablet) 25 mg PO Q6H PRN PRN Reason: Pain, Moderate(Pain Scale 4-6) Last Admin: 01/13/24 10:44 Dose: 25 mg Trazodone HCl (Trazodone Hcl 50 Mg Tablet) 50 mg PO BEDTIME PRN PRN Reason: Insomnia Last Admin: 12/30/23 21:56 Dose: 50 mg Allergies Allergies Allergy/AdvReac Type Severity Reaction Status Date / Time atropine Allergy Unknown Shortness Verified 12/02/23 23:30 of Breath enoxaparin [From Lovenox] Allergy Unknown Unknown Verified 12/02/23 23:30 penicillin V Allergy Unknown Unknown Verified 03/19/23 07:30 pseudoephedrine [Aprodine] Allergy Unknown Unknown Verified 03/19/23 07:30 triprolidine [Aprodine] Allergy Unknown Unknown Verified 03/19/23 07:30 Assessment & Plan Assessment & Plan (1) Major depressive disorder with psychotic features: Status: Acute Code(s): F32.3 - Major depressive disorder, single episode, severe with psychotic features (2) Type 2 diabetes mellitus with unspecified complications: Status: Acute Code(s): E11.8 - Type 2 diabetes mellitus with unspecified complications Plan Plan 1. Continue with same medications. 2. Do ECT as usual tomorrow. 3. Discharge planning. 4. Start Ceftin on 01/08 5. Discharge for tomorrow Reason for continued inpatient stay Substantial Risk for: inability to function, rapid decompensation and med/psych decompensation Time Spent With Patient Time: Total time managing care of this patient today ___20_ minutes.
[2024-01-13 16:44] LABS: Glucose, Whole Blood 254 mg/dL (60-115)
[2024-01-13 20:06] LABS: Glucose, Whole Blood 131 mg/dL (60-115)
[2024-01-13] MEDS: Sennosides 8.6 MG TABLET 17.2 MG PO (22:06)
[2024-01-13] MEDS: traZODone HCL 50 MG TABLET PO ×2 (22:07→23:47)
[2024-01-13] MEDS: Mirtazapine 30 MG TABLET PO (22:08)
[2024-01-13] MEDS: Atorvastatin Calcium 10 MG TABLET PO (22:09)
[2024-01-13] MEDS: Loratadine 10 MG TABLET PO (22:09)
[2024-01-14] MEDS: oxyCODONE HCl Immed Release 5 MG TABLET PO ×2 (06:25→13:30)
[2024-01-14 07:10] LABS: Glucose, Whole Blood 147 mg/dL (60-115)
[2024-01-14 08:52] VITALS: BP 108/62; PULSE 65; RESP 20; TEMP 35.6; O2SAT 97
[2024-01-14] MEDS: polyethylene glycoL 3350 17 GM POWD.PACK PO (08:58)
[2024-01-14] MEDS: Insulin Glargine,Hum.rec.anlog 100 UNIT/ML 10 ML VIAL 12 UNIT SUBCUT (08:59)
[2024-01-14] MEDS: Aspirin 81 MG TAB.CHEW PO (09:01)
[2024-01-14] MEDS: amLODIPine Besylate 5 MG TABLET PO (09:02)
[2024-01-14] MEDS: Ferrous Sulfate 324 MG TABLET.DR PO (09:02)
[2024-01-14] MEDS: Docusate Sodium 100 MG CAPSULE PO (09:02)
[2024-01-14] MEDS: Magnesium Oxide 400 MG TABLET PO (09:02)
[2024-01-14] MEDS: Multivitamin TABLET 1 TAB PO (09:03)
[2024-01-14] MEDS: Thiamine HCL 100 MG TABLET PO (09:03)
[2024-01-14] MEDS: Furosemide 20 MG TABLET PO (09:03)
[2024-01-14] MEDS: Divalproex Sodium Sprinkles 125 MG CAP.DR.SPR 250 MG PO (09:04)
[2024-01-14] MEDS: cefuroxime axetiL 250 MG TABLET PO (09:08)
[2024-01-14] MEDS: Lidocaine 4 % Patch ADH..PATCH 1 PATCH TRANSDERMA (09:30)
[2024-01-14] MEDS: Anastrozole 1 MG TABLET PO (09:34)
[2024-01-14] MEDS: Losartan Potassium 50 MG TABLET 100 MG PO (09:35)
[2024-01-14] MEDS: traMADoL HCL 50 MG TABLET 25 MG PO (10:34)
[2024-01-14 11:38] LABS: Glucose, Whole Blood 348 mg/dL (60-115)
[2024-01-14] MEDS: Insulin Lispro 100 UNIT/ML 3 ML VIAL SUBCUT (11:43)
== END 2024-01-14 15:15 | disposition home or self-care (01) | DRG 885 ==
PROVIDERS: Physician Assistant; Psychiatry & Neurology Psychiatry; Social Worker; Student in an Organized Health Care Education/Training Program; Admitting Provider Psychiatry & Neurology Psychiatry; PCP Student in an Organized Health Care Education/Training Program; Visit Provider Psychiatry & Neurology Psychiatry
PROC: GZB4ZZZ Other Electroconvulsive Therapy (ICD-10-PCS; CPT 90870; principal; 2023-12-13 08:00)
DX: F33.3 Major depressive disorder, recurrent, severe with psychotic symptoms (principal); S42.91XA Fracture of right shoulder girdle, part unspecified, initial encounter for closed fracture; D61.818 Other pancytopenia; I50.32 Chronic diastolic (congestive) heart failure; N39.0 Urinary tract infection, site not specified; I13.0 Hypertensive heart and chronic kidney disease with heart failure and stage 1 through stage 4 chronic kidney disease, or unspecified chronic kidney disease; A04.71 Enterocolitis due to Clostridium difficile, recurrent; E03.9 Hypothyroidism, unspecified; N18.30 Chronic kidney disease, stage 3 unspecified; E11.22 Type 2 diabetes mellitus with diabetic chronic kidney disease; G40.909 Epilepsy, unspecified, not intractable, without status epilepticus; I35.8 Other nonrheumatic aortic valve disorders; C50.911 Malignant neoplasm of unspecified site of right female breast; F06.1 Catatonic disorder due to known physiological condition; H57.03 Miosis; L89.152 Pressure ulcer of sacral region, stage 2; K76.0 Fatty (change of) liver, not elsewhere classified; K56.41 Fecal impaction; E11.65 Type 2 diabetes mellitus with hyperglycemia; G47.33 Obstructive sleep apnea (adult) (pediatric); K74.69 Other cirrhosis of liver; F03.90 Unspecified dementia, unspecified severity, without behavioral disturbance, psychotic disturbance, mood disturbance, and anxiety; X58.XXXA Exposure to other specified factors, initial encounter; E78.5 Hyperlipidemia, unspecified; R33.9 Retention of urine, unspecified; R15.9 Full incontinence of feces; Z79.4 Long term (current) use of insulin; Z79.82 Long term (current) use of aspirin; Z79.811 Long term (current) use of aromatase inhibitors; Z79.890 Hormone replacement therapy; Z79.899 Other long term (current) drug therapy
CPT/HCPCS: 36415; 70450; 71045; 73030; 74018; 80048; 80053; 80061; 80076; 80164; 81001; 82010; 82140; 82272; 82607; 82746; 82803; 82947; 83036; 84443; 85025; 85027; 87086; 87088; 87186; 87324; 87493; 87507; 90870; 93005; 93306; 97162; C1758; J0330; J0461; J1596; J1805; J1920; J2250; J2405; J2704; J7120

== ENCOUNTER 2023-12-02 21:45 | Outpatient (BNV) | payer MEDICARE, MEDICAID, SELFPAY | END 2023-12-03 13:04 | PROVIDERS: Admitting Provider Psychiatry & Neurology Psychiatry; PCP Student in an Organized Health Care Education/Training Program; Visit Provider Radiology Diagnostic Radiology | DX: F06.1 Catatonic disorder due to known physiological condition (principal) | CPT/HCPCS: 70450 ==

== ENCOUNTER → 2023-12-02 21:45 | Outpatient (BNV) | payer MEDICARE, MEDICAID, SELFPAY | PROVIDERS: Admitting Provider Psychiatry & Neurology Psychiatry; PCP Student in an Organized Health Care Education/Training Program; Visit Provider Physician Assistant | DX: S42.001A Fracture of unspecified part of right clavicle, initial encounter for closed fracture (principal) | CPT/HCPCS: 99499 ==

== ENCOUNTER → 2023-12-02 21:45 | Outpatient (BNV) | payer MEDICARE, MEDICAID, SELFPAY | PROVIDERS: Admitting Provider Psychiatry & Neurology Psychiatry; PCP Student in an Organized Health Care Education/Training Program; Visit Provider Urology | DX: N39.0 Urinary tract infection, site not specified (principal) | CPT/HCPCS: 99222 ==

== ENCOUNTER → 2023-12-02 21:45 | Outpatient (BNV) | payer MEDICARE, MEDICAID, SELFPAY | PROVIDERS: Admitting Provider Psychiatry & Neurology Psychiatry; PCP Student in an Organized Health Care Education/Training Program; Visit Provider Surgery | DX: K56.41 Fecal impaction (principal); E11.8 Type 2 diabetes mellitus with unspecified complications | CPT/HCPCS: 99222; 99499 ==

== ENCOUNTER → 2023-12-02 21:45 | Outpatient (BNV) | payer MEDICARE, MEDICAID, SELFPAY | PROVIDERS: Admitting Provider Psychiatry & Neurology Psychiatry; PCP Student in an Organized Health Care Education/Training Program; Visit Provider Internal Medicine Cardiovascular Disease | DX: Z01.810 Encounter for preprocedural cardiovascular examination (principal) | CPT/HCPCS: 99222; 99233 ==

== ENCOUNTER → 2023-12-02 21:45 | Outpatient (BNV) | payer MEDICARE, MEDICAID, SELFPAY | PROVIDERS: Admitting Provider Psychiatry & Neurology Psychiatry; PCP Student in an Organized Health Care Education/Training Program; Visit Provider Psychiatry & Neurology Psychiatry | DX: F32.3 Major depressive disorder, single episode, severe with psychotic features (principal); E11.8 Type 2 diabetes mellitus with unspecified complications; K56.41 Fecal impaction | CPT/HCPCS: 90870; 99231; 99232; 99499 ==

== ENCOUNTER → 2023-12-02 21:45 | Outpatient (BNV) | payer MEDICARE, MEDICAID, SELFPAY | PROVIDERS: Admitting Provider Psychiatry & Neurology Psychiatry; PCP Student in an Organized Health Care Education/Training Program; Visit Provider Psychiatry & Neurology Psychiatry | DX: F32.3 Major depressive disorder, single episode, severe with psychotic features (principal); E11.8 Type 2 diabetes mellitus with unspecified complications | CPT/HCPCS: 90792; 90870; 99231; 99232; 99238 ==

== ENCOUNTER → 2023-12-02 21:45 | Outpatient (BNV) | payer MEDICARE, MEDICAID, SELFPAY | PROVIDERS: Admitting Provider Psychiatry & Neurology Psychiatry; PCP Student in an Organized Health Care Education/Training Program; Visit Provider Physician Assistant | DX: N39.0 Urinary tract infection, site not specified (principal); R19.5 Other fecal abnormalities | CPT/HCPCS: 99222; 99499 ==

== ENCOUNTER 2024-01-20 11:23 | Day surgery (SDC) | payer MEDICARE, MEDICAID, SELFPAY ==
[2024-01-20 11:58] VITALS: BP 149/67; PULSE 71; RESP 16; TEMP 36.1; O2SAT 96; BMI 25.6
[2024-01-20 12:00] LABS: Glucose, Whole Blood 186 mg/dL (60-115)
--- NOTE | 2024-01-20 12:08 | HO.ANESPROP2 ---
HPI - Anesthesia Eval Consult details Narrative: For ECT. PMFSH Active Problems Active Problems: All Active Problems Fecal impaction (Acute) Hx of Clostridium difficile infection (Acute) Preoperative cardiovascular examination (Acute) Catatonia (Acute) Fixed constriction of pupil (Acute) Major depressive disorder with psychotic features (Acute) Dark stools (Acute) Routine medical exam (Acute) Essential hypertension (Acute) Type 2 diabetes mellitus with unspecified complications (Acute) Aortic valve sclerosis (Acute) Murmur (Acute) CKD (chronic kidney disease) stage 3, GFR 30-59 ml/min (Acute) Vitamin D deficiency (Acute) HLD (hyperlipidemia) (Acute) HTN (hypertension) (Acute) T2DM (type 2 diabetes mellitus) (Acute) Past Medical History Medical History Fecal impaction Cirrhosis Hypothyroidism Breast cancer Hx of Clostridium difficile infection (HFpEF) heart failure with preserved ejection fraction Murmur CKD (chronic kidney disease) stage 3, GFR 30-59 ml/min Vitamin D deficiency HLD (hyperlipidemia) HTN (hypertension) T2DM (type 2 diabetes mellitus) Family History Family History Father Alzheimer disease Stroke Mother Breast cancer Family history of problems with anesthesia: No Surgical History Surgical History Hx of cataract surgery History of lumpectomy of right breast History of mastectomy History of Problems with Anesthesia: No Social History Social History Household Members: Family Household Members Other:: son Alcohol intake: never Comment: 1:1 observation Patient Tobacco Use Status: Never used Tobacco Advance Directives: No Advance Directives Information Provided: Yes service: No Sexual orientation: Straight/Heterosexual Meds Allergies Allergy/AdvReac Type Severity Reaction Status Date / Time atropine Allergy Unknown Shortness Verified 12/02/23 23:30 of Breath enoxaparin [From Lovenox] Allergy Unknown Unknown Verified 12/02/23 23:30 penicillin V Allergy Unknown Unknown Verified 03/19/23 07:30 pseudoephedrine [Aprodine] Allergy Unknown Unknown Verified 03/19/23 07:30 triprolidine [Aprodine] Allergy Unknown Unknown Verified 03/19/23 07:30 Exam Height,Weight and Vital Signs: Height 4 ft 11 in Weight 57.606 kg Last Vital Signs Temp 97 F 01/20/24 11:58 Pulse 71 01/20/24 11:58 Resp 16 01/20/24 11:58 BP 149/67 H 01/20/24 11:58 Pulse Ox 96 01/20/24 11:58 O2 Del Method Room Air 01/20/24 11:58 Pertinent Lab Results Pertinent Lab Results: Laboratory Tests 01/20/24 11:57 POC Glucose 186 H Airway Mallampati Class: II TM Dist: <=3cm Neck ROM: Full Denture: Upper Partial: Lower Loose/Missing/Broken Teeth: Yes and Lower Heart: Echo 12/2023 is essentially normal. Lungs: ok Assessment and Plan Assessment Anesthesia Assessment: Anesthesia Plan Discussed and Chart Reviewed Final Anesthetic Review Family History of Problems with Anesthesia: No History of Problems with Anesthesia: No NPO: Yes ASA Class: IV Final Preanesthetic Review: No Changes in Pt Med Stat, Meds/Allgs Chart Reviewed, Consent Obtained/Reviewed and Anes Risks/Benef Reviewed Patient Risk: High Procedure Risk: Intermediate Anesthetic Plan Anesthetic Plan: GA and Agree w/ Assess. and Plan Disposition: Standard PACU
--- NOTE | 2024-01-20 12:25 | MHC.SHP ---
Pre-Procedural Eval Section A - 24 Hr Update-Section A only Date of Service: 01/20/24 The patient is an INPATIENT: No Changes since office visit: No Cold of Flu in the past 2 weeks, No New Medical Problems, No Changes in Medication and No Patient answered all questions The patient has been examined within 24 hours of the surgical procedure. The History & Physical has been completed within 30 days and I have reviewed it.: Yes Section B - Complete if H&P > 30 days Chief Complaint: depression Allergies: Allergies Allergy/AdvReac Type Severity Reaction Status Date / Time atropine Allergy Unknown Shortness Verified 12/02/23 23:30 of Breath enoxaparin [From Lovenox] Allergy Unknown Unknown Verified 12/02/23 23:30 penicillin V Allergy Unknown Unknown Verified 03/19/23 07:30 pseudoephedrine [Aprodine] Allergy Unknown Unknown Verified 03/19/23 07:30 triprolidine [Aprodine] Allergy Unknown Unknown Verified 03/19/23 07:30 Plan I have reviewed the history and physical and performed a pertinent physical examination on my patient. No changes have occurred unless specified. Time Spent With Patient Time: Total time managing care of this patient today ____ minutes.
--- NOTE | 2024-01-20 12:43 | HO.ECTPROC ---
ECT Procedure Note Diagnosis/Treatment Date of Service: 01/20/24 Diagnosis: Major Depressive Disorder Previous ECT Date: 01/08/24 Current Treatment Number: 11 Interval Clinical Notes: The patient reported stabel emood, at home. No side effects with previous ECT. ECT done as usual, no complications, woke up well. Time: Total time managing care of this patient today ____ minutes. ECT Settings Device: THYMATRON DGx Electrode Placement: Rt temporal/ Lt frontal Program/Pulse Width: 0.50 Energy Percent: 100 Seizure Duration By EEG (in seconds): 41 (EEG didn't registry the seizure) By Motor Observation (in seconds): 20 Medications Administration General Anesthetic: Etomidate (12) Muscle Relaxant: Succinylcholine (60) Airway Management Airway Management: Bag Mask Ventilation Treatment Recommendations Notes: Probably, she could use less succynilcholine Pt Tolerated Procedure w/o Issue: Yes
[2024-01-20 12:54] VITALS: BP 136/65; PULSE 85; RESP 23; TEMP 36.6; O2SAT 96
[2024-01-20 12:59] VITALS: BP 150/77; PULSE 97; RESP 24; O2SAT 96
[2024-01-20 13:04] VITALS: BP 159/74; PULSE 93; RESP 20; O2SAT 96
[2024-01-20 13:09] VITALS: BP 153/68; PULSE 93; RESP 17; O2SAT 96
[2024-01-20 13:27] VITALS: BP 147/71; PULSE 92; RESP 18; TEMP 36.4; O2SAT 96
== END 2024-01-20 13:35 | disposition home or self-care (01) ==
PROVIDERS: PCP Student in an Organized Health Care Education/Training Program; Visit Provider Psychiatry & Neurology Psychiatry
PROC: (CPT 90870; principal; 2024-01-20 15:00)
DX: F33.2 Major depressive disorder, recurrent severe without psychotic features (principal); N39.0 Urinary tract infection, site not specified; C50.919 Malignant neoplasm of unspecified site of unspecified female breast; I11.0 Hypertensive heart disease with heart failure; I50.30 Unspecified diastolic (congestive) heart failure; E11.9 Type 2 diabetes mellitus without complications; E78.5 Hyperlipidemia, unspecified; E03.9 Hypothyroidism, unspecified; Z79.811 Long term (current) use of aromatase inhibitors; Z79.4 Long term (current) use of insulin; Z79.899 Other long term (current) drug therapy; Z88.0 Allergy status to penicillin; Z88.8 Allergy status to other drugs, medicaments and biological substances
CPT/HCPCS: 82947; 90870; J0330; J2250; J2405

== ENCOUNTER → 2024-01-20 11:23 | Outpatient (BNV) | payer MEDICARE, MEDICAID, SELFPAY | PROVIDERS: PCP Student in an Organized Health Care Education/Training Program; Visit Provider Psychiatry & Neurology Psychiatry | DX: F33.3 Major depressive disorder, recurrent, severe with psychotic symptoms (principal) | CPT/HCPCS: 90870 ==

== ENCOUNTER 2024-01-22 16:02 | Outpatient (REF) | payer MEDICARE, MEDICAID, SELFPAY ==
[2024-01-22 18:24] LABS: Hematocrit 31.7 % (37.0-47.0); Hemoglobin 9.9 g/dl (12.0-16.0); Mean Corpuscular HGB Conc 31.2 g/dl (31.0-35.0); Mean Corpuscular Hemoglobin 27.4 pg (27.0-33.0); Mean Corpuscular Volume 87.8 fL (80.0-98.0); Mean Platelet Volume 10.4 fL (9.4-12.3); Platelet Count 133 X10*3/uL (160-400); Red Blood Count 3.61 X10*6/uL (4.20-5.50); Red Cell Distribution Width 14.3 % (11.0-16.0)
[2024-01-22 18:31] LABS: Alanine Aminotransferase 26 U/L (0-31); Albumin Level 3.4 g/dL (3.5-5.0); Alkaline Phosphatase 312 U/L (39-117); Anion Gap 13 (12-20); Aspartate Amino Transferase 33 U/L (5-31); Bilirubin Total 0.5 mg/dL (0.0-1.0); Blood Urea Nitrogen 21 mg/dL (9-16); Calcium 9.8 mg/dL (8.4-10.2); Carbon Dioxide 30 mmol/L (22-29); Chloride 97 mmol/L (96-108); Estimated Glomerular Filt Rate > 60; Glucose Random 266 mg/dL (60-115); Potassium 4.3 mmol/L (3.3-5.1); Sodium 136 mmol/L (135-145); Total Protein 8.9 g/dL (6.5-8.0)
== END 2024-01-22 16:03 | disposition home or self-care (01) ==
LOC: HO.CHCLDS 16:02
PROVIDERS: Visit Provider Internal Medicine
DX: S42.91XD Fracture of right shoulder girdle, part unspecified, subsequent encounter for fracture with routine healing (principal)
CPT/HCPCS: 36415; 80053; 85027

== ENCOUNTER 2024-02-03 05:38 | Day surgery (SDC) | payer MEDICARE, MEDICAID, SELFPAY ==
--- OUTSIDE RECORDS SUMMARY | 2024-02-03 05:41 | XMS_ITS | Continuity of Care Document ---
Author Organization [facility] ter Address [address] [place] [id number]- Care Team Providers Care Endoscopy Nurse Name Role Phone Kim Gates MD Primary Care Physician Encounter [facility] Date(s): 11/29/23 - 12/02/[address] [address]- Encounter Diagnosis Depression(Final) - 11/29/23 Discharge Disposition: Transfer to [facility] Facility Attending Physician: Aleksandar Caldwell MD Admitting Physician: Aleksandar Caldwell MD Referring Physician: Not on Staff, Referring [...] 10:51:00 EDT, Inhaler, Route to Pharmacy Electronically, NCPDP_[id number], [facility], 150, cm, 07/24/23 7:21:00 EDT, He... Start Date: 07/26/23 Status: Ordered amLODIPine 5 mg oral tablet 5 mg, By Mouth, Daily, hold if systolic blood pressure is below 120 mmHg, # 90 tablet, Refills 0, Tot. Refills 0, Maintenance, 07/26/23 10:51:00 EDT, Route to Pharmacy Electronically, [facility], Partial fill upon patient request... Start Date: 07/26/23 Status: Ordered amLODIPine 5 mg oral tablet 5 mg, Tablet, By Mouth, 12/02/23 9:00:00 EDT Start Date: 12/02/23 Stop Date: 12/02/23 Status: Completed anastrozole 1 mg oral tablet = 1 [...] Maintenance, 07/26/23 10:51:00 EDT,Route to Pharmacy Electronically, [facility], Partial fill upon patient request if the prescription is for a schedule II opioid drPhillip.. Start Date: 07/26/23 Status: Ordered cetirizine 5 [...] 0 Refills, Maintenance, 07/26/23 10:51:00 EDT, Tablet, [facility], Partial fill upon patient [...] Maintenance, 07/26/23 10:51:00 EDT,Route to Pharmacy Electronically, [facility], Partial fill upon patient request if the prescription is for a schedule II opioid drPhillip.. Start Date: 07/26/23 Status: Ordered Glucose Gel [...] 0 Refills, Maintenance, 07/26/23 10:51:00 EDT, Tablet, [facility], Partial fill upon patient [...] 0 Refills, Maintenance, 07/26/23 10:51:00 EDT, Tablet, [facility], Partial fill upon patient re... Start Date: 07/26/23 Status: Ordered losartan 100 mg oral tablet 1 tablet = 100 mg, By Mouth, Daily, hold if systolic blood pressure is below 120 mmHg, # 90 tablet,0 Refills, Maintenance, 07/26/23 10:51:00 EDT, Tablet, [facility], Partial fill upon patient request if the prescription is for a... Start Date: 07/26/23 Status: Ordered magnesium oxide 400 mg oral capsule 1 capsule = 400 mg, By Mouth, 2 times a day, for 30 days, # 60 capsule, 0 Refills, Acute 12/15/23 12:23:00 EDT, 11/15/23 12:23:00 EDT, Capsule, [facility], Partial fill upon patient request if the prescription is for a schedule II... Start Date: 11/15/23 Stop Date: 12/15/23 Status: Ordered mirtazapine 30 mg oral tablet, disintegrating 1 tablet = 30 mg, By Mouth, Daily at bedtime, # 90 tablet, 0 Refills, Maintenance, 07/26/23 10:51:00 EDT, DIS Tablet, [facility], Partial fill upon patient request if the prescription is for a schedule II opioid drug., 150, cm, 04... Start Date: 07/26/23 Status: Ordered multivitamin with minerals Multiple Vitamins with Minerals oral tablet 1 tablet, By Mouth, Daily, # 90 tablet, 0 Refills, Maintenance, 07/26/23 10:51:00 EDT, Tablet, [facility], Partial fill upon patient [...] 07/26/23 10:51:00 EDT, Route to Pharmacy Electronically, [facility], Partial fill upon patient request if the prescription is for a schedule I... Start Date: 07/26/23 Status: Ordered thiamine 100 mg oral tablet 100 mg, By Mouth, Daily, # 90 tablet, Refills 0, Tot. Refills 0, Maintenance, 07/26/23 10:51:00 EDT, Route to Pharmacy Electronically, [facility], Partial fill upon patient request if the prescription is for a schedule II opioid d... Start Date: 07/26/23 Status: Ordered traZODone 50 mg oral tablet 50 mg, By Mouth, Daily at bedtime, PRN, # 30 tablet, Refills 0, Tot. Refills 0, Maintenance, Insomnia, 07/26/23 10:51:00 EDT, Route to Pharmacy Electronically, [facility], Partial fill upon patient [...] Confirmed Active Vitamin D deficiency Confirmed Active Vital Signs Most recent to oldest [Reference Range]: 1 2 3 Oxygen Saturation [94-100 %] 100 % (12/02/23 7:50 AM) 98 % (12/02/23 2:59 AM) 95 % (12/01/23 11:36 PM) Pulse Rate [55-90 bpm] 76 bpm (12/02/23 7:50 AM) 80 bpm (12/02/23 2:59 AM) 83 bpm (12/01/23 11:36 PM) Blood Pressure [90-138/55-84 mm Hg] 146/87mm Hg *H* (12/02/23 11:53 AM) 140/64mm Hg *H* (12/02/23 7:50 AM) 142/66mm Hg *H* (12/02/23 2:59 AM) Respiratory Rate [16-30 br/min] 16 br/min (12/02/23 7:50 AM) 17 br/min (12/02/23 2:59 AM) 17 br/min (12/01/23 11:36 PM) Temperature [96.8-100.4 DegF] 98.6 DegF (12/02/23 7:50 AM) 98.1 DegF (12/02/23 2:59 AM) 98.2 DegF (12/01/23 11:36 PM) Mode of Delivery (Oxygen) Room air (12/02/23 7:50 AM) Room air (12/02/23 2:59 AM) Room air (12/01/23 11:36 PM) Blood pressure sites Arm, left (12/02/23 7:50 AM) Arm, right (12/02/23 2:59 AM) Arm, right (12/01/23 11:36 PM) Temperature Route Oral (12/02/23 7:50 AM) Oral (12/02/23 2:59 AM) Oral (12/01/23 11:36 PM) Social History Social History Type Response Smoking Status Never (less than 100 in lifetime) entered on: 04/18/23 Sex EKG study * Event Display: ECG 12-Lead Authored Date: Please click on pdf link to open report * Event Display: ECG 12-Lead Authored Date: Ventricular Rate: 81 BPM Atrial Rate: 81 BPM P-R Interval: 130 ms QRS Duration: 84 ms Q-T Interval: 390 ms QTC Calculation(Bazett): 453 ms P Shelby: 27 degrees R Shelby: -17 degrees T Shelby: 58 degrees Sinus rhythm with Premature atrial complexes with Aberrant conduction Moderate voltage criteria for LVH, may be normal variant ( R in aVL , Kofi product ) Borderline ECG When compared with ECG of 12-NOV-2023 13:23, Aberrant conduction is now Present Nonspecific T wave abnormality no longer evident in Inferior leads Nonspecific T wave abnormality no longer evident in Anterior leads Confirmed by [facility] ([id number]) on 11/30/2023 7:21:56 AM [place]: [facility] * Arcenio Duckworth RN: PERFORM, SIGN, VERIFY Event Display: Progress Note Hospital Authored Date: Patient: DELANEY ARIAS Age: 73 years Sex: Female : 1950 Associated Diagnoses: None Author: Arcenio Duckworth RN Findings Narrative/Incidental nsg ED crisis note: discharge Pt section 12 to [facility], pt had no belongings, report called by 7-7p rn, . Consult note * David Simpson DO: PERFORM, MODIFY, MODIFY Event Display: Consultation Note Authored Date: Patient: ??DELANEY ARIAS ? Age:??73 Years?Sex:??Female?:??1950?? Subjective Reason for consultation: Medication evaluation, follow-up on initial consult on 11/30/23 Referring physician: Agusto Montague MD Source of information:?? Per patient,??[facility] records, crisis evaluations Identifying information:??Delaney Arias??is a 73-year-old female with past medical history significant for??major depressive disorder with psychotic features, delirium, Type 2 diabetes mellitus with diabetic neuropathy, history of lower GI bleeding, diverticulitis, HTN, total mastectomy of left breast d/t malignant neoplasm, seizure disorder, asthma??who initially presented to [facility] on 11/29/2023 for increased depression ?? No acute events overnight. ?? Patient was seen bedside in the ED by the poem writer, attending physician, and trust officer Nathaniel. The patient was oriented to person and place, but not time or situation. When asked what broughther to the hospital, the patient stated her is too violent. She repeated this statement a few times. The patient responded with I cannot hear to several additional questions before stating she felt bad at this moment due to her being too violent. She responded no when asked ifshe had a history being hard of hearing or using hearing aids. Patient did not respond when asked additional question regarding her . She was able to deny any SI or HI, and denied any AVH. ?? The patient remained laying in bed and stared straight ahead for most of the interview. Aside from a few, brief responses to some of the questions asked, she did not engage in the interview. ?? Review of Systems Pertinent positives as listed in subjective. ??Otherwise, remainder of review of systems negative. Objective Vital Signs?? Temperature: 98.6 DegF (12/02/23 07:50:00) Temperature Route: Oral (12/02/23 07:50:00) Pulse Rate: 76 bpm (12/02/23 07:50:00) Respiratory Rate: 16 br/min (12/02/23 07:50:00) Systolic Blood Pressure:??140 mm Hg??High (12/02/23 07:50:00) Diastolic Blood Pressure: 64 mm Hg (12/02/23 07:50:00) Blood pressure sites: Arm, left (12/02/23 07:50:00) Mean Arterial Pressure: 89 mm Hg (12/02/23 07:50:00) Pulse Pressure: 76 mm Hg (12/02/23 07:50:00) Oxygen Saturation: 100 % (12/02/23 07:50:00) Mode of Delivery (Oxygen): Room air (12/02/23 07:50:00) ?? Physical Exam Mental Status Exam Appearance: fair grooming, dressed in a hospital gown, average weight Attitude: Not engaged for most of interview Motor Activity: calm, no involuntary movements, not observed ambulating. Bilateral rigidity presentin UE and LE. No waxy flexibility present. Patient laid still in bed and stared forward for most ofinterview. Sight and Hearing: apparently intact Mood: bad Affect: flat Speech: Poverty of speech: spoke in 1-4 word phrases at times, remained silent at other moments Perception: unable to assess Cognition: unable to assess, patient was oriented to self and place only. Judgment: unable to assess Insight: unable to assess Thought Process: unable to assess Thought Content: unable to assess Consistency??with Medications: good, per collateral from family members Reliability:??poor historian Suicidality/Self-Destructive Behavior: none Homicidality/Violence: none?? Results Recent Labs CHEM GENERAL Glucose, POC 249 mg/dL (High)?? 12/02/2023 09:36 ? Assessment/Plan Assessment: In brief, this is a 73-year-old Finnish-speaking female with past medical history significant for??major depressive disorder with psychotic features, delirium, Type 2 diabetes mellitus with diabetic neuropathy, history of lower GI bleeding, diverticulitis, HTN, total mastectomy of left breast d/t malignant neoplasm, seizure disorder, asthma??who initially presented to [facility] on 11/29/2023 for increased depression. At this point in time, the patient has been medicallycleared and referred to??crisis clinicians??for evaluation and assistance with disposition for potential inpatient psychiatric hospitalization. The emergency psychiatry service was consulted for assistance with medication management. Reviewed data including: medical records, crisis evaluations, collateral, test results, discussion with attending psychiatrist. Initial psychiatric evaluation was low-yield as patient was unable to engage in the evaluation, she simply looked at me, was nonverbal. Patient has a history of receiving ECT for similar presentation in the past, family has been concerned about her increased depressive symptoms reduced ability to care for herself at home. This appears to be an established problem that is inadequately controlled for unclear reasons. Family reports that patient takes her medications consistently. Apparently since she was hospitalized from 04/2023 - 07/2023 on the medical floor, her mobility as been reduced which has possibly contributed to her increased depression, per family. Unable to ask the patient about treatment-related preferences or explainto the patient the differential diagnosis, risks of untreated illness, treatment options, and benefits and risks of treatment. See below for detailed treatment recommendations. Disposition as per crisis services. ?? 12/01: Patient was oriented to person and place only. She gave brief responses to some questions, and did not respond to others. She reported feeling bad because her was too violent but was not able to expand or elaborate. She reported no when asked about SI, HI, or AVH. Patient remained laying still in bed while staring straight ahead for all of the interview. On MSK exam, patient had bilateral rigidty in UE and LE. She did not display any waxy flexibility. She scored an 8 on the Silveira-Johny Catatonia Rating Scale: +2 for immobility/stupor, +1 for mutism, +2 for staring, +1 forrigidity, +2 for withdrawal. Ativan challenge for suspected catatonia withheld due to patient beingaccepted for psychiatry placement and stabilization at [facility] for later this afternoon. Of note, the patient has a history of catatonia treated with ECT in the past. No other changes to treatment plan??at this time. ?? Diagnosis: Major depressive disorder with psychotic features, by history Hypoactive Delirium vs Catatonia Urinary Incontinence ?? Recommendations: -Disposition as per??[facility] Crisis, patient accepted at [facility] for later this afternoon, 12/02/23 -Patient is currently able to take her PO medications and engage in a limited way with staff. If that should no longer be the case, can consider IV/IM Ativan to treat catatonic symptoms. -Barriers: incontinence -Continue home medications: ? -divalproex 500 mg PO daily at bedtime ? -fluoxetine 40 mg PO daily ? -mirtazapine 30 mg PO daily at bedtime ? -risperidone 2 mg PO twice daily ? -trazodone 50 mg PO daily at bedtime PRN insomnia -Start trazodone 25 mg PO twice daily PRN anxiety -Start??risperidone 0.5 mg PO twice daily PRN agitation/psychosis. The preference is for PO medications, but if the patient refuses the oral medications and there is sufficient acute safety concern, can judiciously utilize??haloperidol 2.5 mg IM??q12h PRN severe agitation. -Would note that these medications are only being utilized in the ER while the patient awaits placement. Long-term need for these medications will need to be assessed by the patient's future treatingpsychiatrist. -Avoid medical jargon. -Seclusion or restraint may only be used as interventions of last resort in the management of severe agitation in patient. If they are used, seclusion and restraint episodes should be as short as possible, dignified, and as safe as possible for all involved. Patient preference should always be considered when feasible. -Follow-up labs: B12, Folate, Phosphorus were WNL. Mg level was 1.5 and Valproic acid level was??20.6? DELIRIUM PREVENTION AND MITIGATION MEASURES ?? Improve Orientation ? -Introduce self, role, & location at every patient encounter ? -Orientation Board ? -Provision of clocks, calendars, windows with outside views ? -Verbally re-orient patient Improve Cognitive Stimulation ? -Vision - Glasses ? -Hearing - Portable Amplifier, Hearing aids ? -Taste ??? Nutrition ? -Touch ??? preserve mobility ? -Thought - Books, puzzles, games ? -Encourage regular visits from family and friends Improve/Preserve Mobility ? -Reduce arango / IV / restraints ? -Encourage ambulation ? -PT/OT ? -Manage pain Preserve the sleep ??? wake cycle ? -Minimize nighttime interruptions - avoid nursing and medical procedures, including medicationadministration, during sleeping hours ? -Reduce night-time noise ? -Lights out / Close Doors ? -Daytime stimulation, avoid sensory overstimulation at night ?? Potentially Toxic Medications Benzodiazepines: diazepam, lorazepam Antihistamines: diphenhydramine, chlorphenhydramine, cimetidine Anticholinergics: oxybutynin, belladonna, cyclobenzaprine, hyocysamine, meclizine, scopolamine, zolpidem Pain Medications: meperidine, propoxyphene, opioids, indomethacin Antidepressants: amitriptyline, imipramine, paroxetine Antipsychotics: chlorpromazine, thioridazine Cardiac Drugs: amiodarone, lidocaine, digoxin, amlodipine, nifedipine Neurologic: phenobarbitol, dilantin, carbamazepine, dopamine? Thank you for allowing us to participate in this patient's care. We will continue to follow the patient as needed by the primary team. Please feel free to contact the Psychiatry consult service ([phone] or page [phone]) with any questions or concerns.? Case and plan discussed with attending physician, Dr. Jenaro Hendrix Recommendations discussed with ED crisis clinical team and??TigerTexted to emergency medicine physician, Dr. Griselda Curran ?? David Simpson D.O. PGY-1 Department of Psychiatry [facility] [employer] Pager [phone] ?? * Nano SHELL, Sarah Hernandez: PERFORM, MODIFY, MODIFY, MODIFY, MODIFY, MODIFY, MODIFY Event Display: Consultation Note Authored Date: Patient: ??DELANEY ARIAS ? Age:??73 Years?Sex:??Female?:??1950?? Chief Complaint Reason for consultation: Medication evaluation Referring physician: Agusto Montague MD Source of information:?? Per patient,??[facility] records, crisis evaluations Identifying information:??Delaney Arias??is a 73-year-old female with past medical history significant for??major depressive disorder with psychotic features, delirium, Type 2 diabetes mellitus with diabetic neuropathy, history of lower GI bleeding, diverticulitis, HTN, total mastectomy of left breast d/t malignant neoplasm, seizure disorder, asthma??who initially presented to [facility] on 11/29/2023 for increased depression. ?? History of Present Illness Delaney??is known to the [facility] psychiatry service from prior consultations and inpatient hospitalizations. She was most recently on [facility] from 04/18/2023 - 05/03/2023. She was discharged from there to the medical floor due to concerns for failure to thrive. She remained there from 05/03/2023 - 08/01/2023 and was discharged to a SNF/Rehab. She was also briefly hospitalized (11/12/2023 - 11/15/2023) afterbeing admitted for dark maroon stools . Per current ED??documentation,?? The patient presents [id number] Finnish-speaking female with PMhx of diverticulitis, C. 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 Patient's son at bedside states she has had worsening depression for the last couple of days andnotes that when she gets into these spells she often becomes catatonic with increasing confusion with auditory and visual hallucinations and frequent UTI's due to failure to care for herself during these episodes. The son states she had a previous similiar episode in april where she was hospitalized for ECT. Patient denied HI, but endorsed SI with no plan. At baseline she is mobile with assistance at home, but does not ambulate on her own due to imbalance when walking. Patient denies any painor discomfort, she is tearful and did not answer any other questions. ? Initial vital signs in the ED were notable for BP 159/74, now resolved. Labs were reviewed. CBC w/diff notable for WBC 2.7, RBC 3.25, Hgb 8.7, Hct 26.9, Plt 107. CMP notable for Na 130, Cl 93, alk phos 117, AST 42. TSH within normal limits. No ethanol detected. Urine toxicology negative for amphetamines, barbiturates, benzodiazepines, cannabis, cocaine, and opiates. U/A notable only for glucose 2+. COVID-19 negative. Ordered additional labs for Mg, Phos, Vit B12, Folate, results pending. Ordered Valproic acid level, 20.6. ?? Delaney??was subsequently medically cleared and referred to the crisis team for evaluation and assistance with disposition for potential inpatient psychiatric hospitalization. Per crisis evaluation, Delaney Arias ??is a 73year- old, , , Finnish-speaking??female appearing his/her stated age.??She presents in a near catatonic state, responding??briefly to son speaking her name before ceasing to respond. Patient initial would track clinician with her eyes however as time progressedceased to respond. Patient was able to make slowed movements ie: shuffling feet/try to cover her face with blanket otherwise??exhibited??zero engagement with surroundings. ?? Per son, at bedside, she has been exhibiting a decrease in her mood over the past two weeks.??Hereports daily crying, increase sleeping, decreased appetite, decrease in engagement with environment??slowed speech before only responding with one word answers until current presentation. She is able to ambulate at home??with a slightly unsteady gait until current presentation when she started to require more support. He notes an increase of sleeping and decreased appetite. He reports that the patient has a history of suicidal ideation with numerous??attempts. Able to report one definitive overdose on unknown medication with unknown intervention roughly five years prior, and in April 2023??patient grabbed a kitchen knife before making suicidal statements. Son notes that??when these symptoms start she becomes less engaged with her environment and has a history of auditory and visual hallucinations. Son notes that??family hasn't noticed her responding to internal stimuli over the past two weeks. He reports that??historically she's received ECT treatment??which appears to be effective. ??He reports that patient reconnected with??counselor from three years prior and has had 1-2 sessions and that she regularly takes her medication. Family notes concern??for patients safety if discharged home due to either failure to thrive or suicidal ideation. Per initial??ED notes patient did endorse suicidal ideation without a plan before ceasing to respond to environment. ?? The emergency psychiatry service??was consulted for evaluation??and psychotropic medication management. She was evaluated with the assistance of a credentialing specialist. On approach, Delaney looks at mebut is essentially unable to engage in the interview. She appears to shake her head slightly when Iask if she knows where she is, but she does not respond to further inquiries. Unable to complete psychiatric review of systems. Unable to assess for suicidal ideation,??homicidal ideation or desires for nonsuicidal self-injury. Unable to obtain past psychiatric, substance use, medical, family, personal/social history from the patient??due to??altered mentation secondary to acute psychiatric illness. Details gleaned from extensive chart review. ?? Psychiatric History -Major depressive disorder with psychotic features, Anxiety -[facility] - [place] [id number] - 12/31/2017, [facility] - 12/08/2017, [facility] 08/06/2016 - 08/30/2016, [facility] 2016 - 06/08/2016, 06/24/2014 - 07/11/2014, 06/04/2014 - 06/22/2014, 08/11/2010 - 09/13/2010, 07/26/2010 - 08/06/2010. -Current medications: fluoxetine, divalproex, mirtazapine, risperidone, trazodone PRN. Past medication trials include: olanzapine, haloperidol, quetiapine, lamotrigine, oxcarbazepine, venlafaxine, hydroxyzine, lorazepam, clonazepam, benztropine. History of ECT, most recently at [facility] in 07/2023. -Per pharmacy record, most recent prescriber is Francisco Neville -Per chart, threatened suicide with a knife in 04/2023. Attempted suicide via overdose in 2017. No history of prior intentional self-injury in which there was no suicide intent. No history of prior aggressive behaviors or ideas. ?? Substance Use History -No known current or recent change in use of alcohol or other substances. -No known current or recent substance use disorder. -No known past or current use of tobacco. -No known past or current use of alcohol. -No known past or current use of marijuana, cocaine, heroin, hallucinogens, or methamphetamines. -No known past or current misuse of prescribed or [id number] medications or supplements. ?? Medical History -PCP: Kim Gates MD -Allergies: atropine, lovenox, penicillin -No known history of head injuries, seizures, or chronic headaches. -No known history of neurological or neurocognitive disorders or symptoms. ?? Family History -Previously reported that??her mother and brother??had depression. No known history of substance use disorder in biological relatives.? 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 Has the support of and children. is her [employer].??Lives with her and children. Retired, receives SSI. No history of arrests, incarcerations, probation, or other disciplinary consequences due to past aggressive behavior. Has previously repo rted that her experience with breast cancer was traumatic.? Review of Systems Pertinent positives as listed above in HPI. ??Otherwise, remainder of review of systems negative. ?? Psychiatric Review of Systems (positives in bold): DEPRESSION: depressed mood, diminished interest, weight loss or appetite change, insomnia/hypersomnia, psychomotor agitation/retardation, fatigue, feelings of worthlessness or guilt, inability to concentrate/indecisiveness, recurrent thoughts of ?? ANXIETY: restlessness, fatigue, difficulty concentrating, irritability, muscle tension, sleep disturbance; panic attacks ?? BILLY: grandiosity, decreased need for sleep, pressured speech, flight of ideas, distractibility, increase in goal-directed activity/psychomotor agitation, dangerous activities ?? PSYCHOSIS: delusions, hallucinations, disorganized speech, disorganized behavior, diminished emotional expression/avolition ?? TRAUMA: intrusion symptoms, avoidance, negative alterations in cognition and mood, alterations in arousal and reactivity ?? MISCELLANEOUS: sleep apnea; impulsivity Mental Status Vitals & Measurements T:??98.6?F?? HR:??78??(Peripheral)?? RR:??16?? BP:??130/70?? SpO2:??95%? Mental Status Examination ?? Appearance: fair grooming, dressed in a hospital gown, average weight;??good eye ?? Attitude: unable to participate ?? Motor Activity: calm, no involuntary movements or abnormalities of motor tone; coordination unremarkable, not observed ambulating ?? Sight and Hearing: apparently intact ?? Mood: unable to assess ?? Affect: flat ?? Speech: nonverbal ?? Perception: unable to assess ?? Cognition: unable to assess, appears to be disoriented to location/situation ?? Judgment: unable to assess ?? Insight: unable to assess ?? Thought Process: unable to assess ?? Thought Content: unable to assess ?? Consistency??with Medications: good, per collateral from family members ?? Reliability:??non-historian ?? Suicidality/Self-Destructive Behavior: none ?? Homicidality/Violence: none?? [place] Suicide Score [place] Suicide Assessment Ca (11/12/23) Suicidal Thoughts Past Month - CSSRS: No (11/12/23) Suicide Behavior Lifetime - CSSRS: No (11/12/23) Wish to be Past Month - CSSRS: Yes (11/12/23) Assessment/Plan ASSESSMENT In brief, this is a 73-year-old Finnish-speaking female with past medical history significant for??major depressive disorder with psychotic features, delirium, Type 2 diabetes mellitus with diabetic neuropathy, history of lower GI bleeding, diverticulitis, HTN, total mastectomy of left breast d/t malignant neoplasm, seizure disorder, asthma??who initially presented to [facility] on 11/29/2023 for increased depression. At this point in time, the patient has been medically cleared andreferred to??crisis clinicians??for evaluation and assistance with disposition for potential inpatient psychiatric hospitalization. The emergency psychiatry service was consulted for assistance with medication management. Reviewed data including: medical records, crisis evaluations, collateral, test results, discussion with attending psychiatrist. Initial psychiatric evaluation was low-yield as patient was unable to engage in the evaluation, she simply looked at me, was nonverbal. Patient has ahistory of receiving ECT for similar presentation in the past, family has been concerned about her increased depressive symptoms reduced ability to care for herself at home. This appears to be an established problem that is inadequately controlled for unclear reasons. Family reports that patient takes her medications consistently. Apparently since she was hospitalized from 04/2023 - 07/2023 on the medical floor, her mobility as been reduced which has possibly contributed to her increased depression, per family. Unable to ask the patient about treatment- related preferences or explain to the patient the differential diagnosis, risks of untreated illness, treatment options, and benefits and risks of treatment. See below for detailed treatment recommendations. Disposition as per crisis services. ?? DIAGNOSES Major depressive disorder with psychotic features, by history At risk for delirium r/o Catatonia ?? RECOMMENDATIONS -Disposition as per??[facility], albeit currently a bed search for inpatient psychiatric hospitalization. -Patient is currently able to take her PO medications and engage in a limited way with staff. If that should no longer be the case, can consider IV/IM Ativan to treat catatonic symptoms. -Barriers: incontinence -Continue home medications: ? -divalproex 500 mg PO daily at bedtime ? -fluoxetine 40 mg PO daily ? -mirtazapine 30 mg PO daily at bedtime ? -risperidone 2 mg PO twice daily ? -trazodone 50 mg PO daily at bedtime PRN insomnia -Start trazodone 25 mg PO twice daily PRN anxiety -Start??risperidone 0.5 mg PO twice daily PRN agitation/psychosis. The preference is for PO medications, but if the patient refuses the oral medications and there is sufficient acute safety concern, can judiciously utilize??haloperidol 2.5 mg IM??q12h PRN severe agitation. -Would note that these medications are only being utilized in the ER while the patient awaits placement. Long-term need for these medications will need to be assessed by the patient's future treatingpsychiatrist. -Avoid medical jargon. -Seclusion or restraint may only be used as interventions of last resort in the management of severe agitation in patient. If they are used, seclusion and restraint episodes should be as short as possible, dignified, and as safe as possible for all involved. Patient preference should always be considered when feasible. -Follow-up baseline labs including B12, Folate, Magnesium, Phosphorus,??Valproic acid level??to rule out organic etiology of presenting symptoms and to help guide treatment decisions. ?? DELIRIUM PREVENTION AND MITIGATION MEASURES ?? Improve Orientation ? -Introduce self, role, & location at every patient encounter ? -Orientation Board ? -Provision of clocks, calendars, windows with outside views ? -Verbally re-orient patient Improve Cognitive Stimulation ? -Vision - Glasses ? -Hearing - Portable Amplifier, Hearing aids ? -Taste ??? Nutrition ? -Touch ??? preserve mobility ? -Thought - Books, puzzles, games ? -Encourage regular visits from family and friends Improve/Preserve Mobility ? -Reduce arango / IV / restraints ? -Encourage ambulation ? -PT/OT ? -Manage pain Preserve the sleep ??? wake cycle ? -Minimize nighttime interruptions - avoid nursing and medical procedures, including medicationadministration, during sleeping hours ? -Reduce night-time noise ? -Lights out / Close Doors ? -Daytime stimulation, avoid sensory overstimulation at night ?? Potentially Toxic Medications Benzodiazepines: diazepam, lorazepam Antihistamines: diphenhydramine, chlorphenhydramine, cimetidine Anticholinergics: oxybutynin, belladonna, cyclobenzaprine, hyocysamine, meclizine, scopolamine, zolpidem Pain Medications: meperidine, propoxyphene, opioids, indomethacin Antidepressants: amitriptyline, imipramine, paroxetine Antipsychotics: chlorpromazine, thioridazine Cardiac Drugs: amiodarone, lidocaine, digoxin, amlodipine, nifedipine Neurologic: phenobarbitol, dilantin, carbamazepine, dopamine? Thank you for allowing us to participate in this patient's care. We will continue to follow the patient as needed by the primary team. Please feel free to contact the Psychiatry consult service ([phone] or page [phone]) with any questions or concerns.? Recommendations??sent via [employer] to Dr. Gina Kinney ? Saarh Mcgill BA MSN PMHNP- Emergency Psychiatry Services Division of Consultation-Liaison Psychiatry [facility] ? Problem List/Past Medical History Ongoing Benign essential [...] diabetic neuropathy Vitamin D deficiency Procedure/Surgical History Mastectomy, left: 2008 Breast lumpectomy, left: 1995 Medications acetaminophen 325 mg oral tablet, 650 mg, By Mouth, Every 6 hours, PRN albuterol CFC free 90 mcg/inh inhalation aerosol, 180 mcg= 2 puffs, Inhalation, Every 4 hours, PRN,2 refills amLODIPine 5 mg oral tablet, 5 mg, By Mouth, Daily amLODIPine 5 mg oral tablet, 5 mg, By Mouth, Daily anastrozole 1 mg oral tablet, 1 mg, By Mouth, Daily in AM aspirin 81 mg oral tablet, chewable, 81 mg, By Mouth, Daily aspirin 81 mg oral tablet, chewable, 81 mg, By Mouth, Daily cetirizine 5 mg oral tablet, 5 mg, By Mouth, Daily at bedtime Depakote Tablet, 500 mg, By Mouth, Daily at bedtime divalproex sodium 500 mg oral enteric coated tablet, 500 mg, By Mouth, Daily at bedtime ferrous sulfate 325 mg oral enteric coated tablet, 325 mg, By Mouth, Daily ferrous sulfate 325 mg oral enteric coated tablet, 325 mg, By Mouth, Daily FLUoxetine 20 mg oral capsule, 40 mg, By Mouth, Daily FLUoxetine 20 mg oral capsule, 40 mg, By Mouth, Daily Glucose Gel, 15 Gm, By Mouth, Every 20 minutes, PRN Insulin Glargine Inj, 6 units= 0.06 mL, Subcutaneous Injection, Daily at bedtime insulin lispro 100 units/mL injectable solution, 2-10 units, Subcutaneous Injection, 3 times a day before meals Insulin LISPRO Sliding Scale, 2-10 units, Subcutaneous Injection, 3 times a day before meals Keppra 500 mg oral tablet, 500 mg, By Mouth, 2 times a day Lantus Inj, 6 units= 0.06 mL, Subcutaneous Injection, Daily at bedtime Lasix 20 mg oral tablet, 20 mg, By Mouth, Daily Lasix 20 mg oral tablet, 20 mg, By Mouth, Daily levothyroxine 0.1 mg oral tablet, 100 mcg, By Mouth, Daily in AM levothyroxine 0.1 mg oral tablet, 100 mcg, By Mouth, Daily in AM losartan 100 mg oral tablet, 100 mg= 1 tablet, By Mouth, Daily magnesium oxide 400 mg oral capsule, 400 mg= 1 capsule, By Mouth, 2 times a day mirtazapine 15 mg oral tablet, 30 mg, By Mouth, Daily at bedtime mirtazapine 30 mg oral tablet, disintegrating, 30 mg= 1 tablet, By Mouth, Daily at bedtime Multivit Therapeutic/Minerals Tablet, 1 tablet, By Mouth, Daily multivitamin with minerals Multiple Vitamins with Minerals oral tablet, 1 tablet, By Mouth, Daily Protonix 40 mg oral delayed release tablet, 40 mg, By Mouth, Daily Protonix 40 mg oral delayed release tablet, 40 mg= 1 tablet, By Mouth, Daily risperiDONE 1 mg oral tablet, 2 mg, By Mouth, 2 times a day risperiDONE 1 mg oral tablet, 0.5 mg, By Mouth, 2 times a day, PRN risperiDONE 1 mg oral tablet, 2 mg, By Mouth, 2 times a day simvastatin 20 mg oral tablet, 20 mg, By Mouth, Daily at bedtime simvastatin 20 mg oral tablet, 20 mg, By Mouth, Daily at bedtime thiamine 100 mg oral tablet, 100 mg, By Mouth, Daily thiamine 100 mg oral tablet, 100 mg, By Mouth, Daily traZODone 50 mg oral tablet, 50 mg, By Mouth, Daily at bedtime, PRN traZODone 50 mg oral tablet, 50 mg, [...] Sister. Carcinoma in situ of spleen: Brother. Immunizations Vaccine Date Status zoster vaccine, inactivated 02/19/2023 Recorded influenza virus vaccine, inactivated 01/25/2023 Recorded SARS-CoV-2 (COVID-19) mRNA-1273 vaccine 03/08/2021 Recorded influenza virus vaccine, inactivated 01/19/2021 Recorded SARS-CoV-2 (COVID-19) mRNA-1273 vaccine 07/20/2020 Recorded SARS-CoV-2 (COVID-19) mRNA-1273 vaccine 06/22/2020 Recorded influenza virus vaccine, inactivated 01/27/2020 Recorded influenza virus vaccine, inactivated 01/28/2019 Recorded Zoster Vaccine Live 10/10/2018 Recorded influenza virus vaccine, inactivated 01/23/2018 Recorded pneumococcal 23-valent vaccine 01/25/2017 Recorded influenza virus vaccine, inactivated 01/25/2017 Recorded influenza virus vaccine, inactivated - Not Given Comments : Patient Refuses Pneumococcal Vaccine (oldterm) 01/10/2016 Recorded Influenza Virus Vaccine (oldterm) 01/10/2016 Recorded Comments : [08/22/2016] Pt received flu vaccine this season from PCP pneumococcal 13-valent vaccine 01/10/2016 Recorded tetanus/diphtheria/pertussis, acel(Tdap) 12/02/2015 Recorded influenza virus vaccine, inactivated 02/08/2015 Recorded influenza virus vaccine, inactivated 01/11/2014 Recorded influenza virus vaccine, inactivated 04/05/2011 Given pneumococcal 23-valent vaccine 07/24/2010 Given Health Maintenance Health Maintenance ?Pending??(in the next year) ?OverDue ?Hepatocellular Carcinoma Screening in patients with cirrhosis due?02/12/02?and every 26?week(s) ?Health Care Proxy due?12/31/22?and every 5?years ?Diabetes HbA1c due?10/19/23?and every 181?days ?Due?Asthma - Spirometry due?11/30/23?One-time only ?Asthma Maintenance due?11/30/23?and every 1?years ?Chronic Obstructive Pulmonary Disease - Spirometry Evaluation due?11/30/23?One-time only ?Colorectal Cancer Screening due?11/30/23?Variable frequency ?Diabetes Comprehensive Foot Exam due?11/30/23?Unknown Frequency ?Diabetes Dilated Retinal Eye Exam due?11/30/23?Variable frequency ?Fall Risk Screening due?11/30/23?Variable frequency ?MOLST due?11/30/23?Variable frequency ?PHQ-9 Depression Maintenance due?11/30/23?Variable frequency ?Due In Future?Basic Metabolic Panel not due until?11/14/24?and every 1?years ?Satisfied??(in the past 1 year) ?Satisfied?5 yr Lipids Screening on?04/19/23.?Satisfied by [employer] , [employer] ?Basic Metabolic Panel on?11/29/23.?Satisfied by [employer] , [employer] ?Depression Screening on?01/09/23.?Satisfied by Kady Bailey MA ?Diabetes HbA1c on?04/21/23.?Satisfied by [employer] , [employer] ?Diabetes Screening on?11/30/23.?Satisfied by [employer] , [employer] ?? Lab Results Abs. Baso: 0 k/mm3 (11/29/23) Abs. Eo: 0 k/mm3 (11/29/23) Abs. Imm Gran: 0 k/mm3 (11/29/23) Abs. Lymph:??0.6 k/mm3??Low (11/29/23) Abs. [place]:??0.3 k/mm3??Low (11/29/23) Abs. Neut: 1.8 k/mm3 (11/29/23) Abs. NRBC: 0 k/mm3 (11/29/23) AG Ratio: 0.8 (11/29/23) Albumin: 3.5 Gm/dL (11/29/23) Albumin, Urine: NEGATIVE (11/29/23) Alkaline Phosphatase:??117 units/L??High (11/29/23) ALT (SGPT): 19 units/L (11/29/23) Amphetamine Screen, Urine: NONE DETECTED (11/29/23) Anion Gap: 10 (11/29/23) Antibody Screen: Negative (11/12/23) Appear/Color, Urine: LIGHT YELLOW (11/29/23) AST (SGOT):??42 units/L??High (11/29/23) Bacteria: SLIGHT Abnormal (11/12/23) Barbiturate Screen, Urine: NONE DETECTED (11/29/23) Baso %: 0 % (11/29/23) Benzodiazepine Screen, Urine: NONE DETECTED (11/29/23) Bicarbonate Level: 27 mmol/L (11/29/23) Bilirubin, Total: 0.4 mg/dL (11/29/23) Bilirubin, Urine: NEGATIVE (11/29/23) Blood Type: A Positive (11/12/23) BUN: 13 mg/dL (11/29/23) Calcium: 9.4 mg/dL (11/29/23) Cannabinoid Screen, Urine: NONE DETECTED (11/29/23) Chloride:??93 mmol/L??Low (11/29/23) Cocaine Metabolite Screen, Urine: NONE DETECTED (11/29/23) COVID-19 by RT-PCR: NEGATIVE (11/29/23) COVID-19 PCR Result: NEGATIVE (11/13/23) COVID-19 PCR Specimen Source: NASAL (11/13/23) Creatinine-Blood: 0.68 mg/dL (11/29/23) Eos %: 0.4 % (11/29/23) Est Creatinine Clearance: 47.5 mL/min (11/15/23) Estimated GFR Creatinine: 91 ML/MIN/1.73 M2 (11/29/23) Ethanol, Serum or Plasma: NONE DETECTED (11/29/23) Free T4: 1.5 ng/dL (11/29/23) Glucose Level:??237 mg/dL??High (11/29/23) Glucose, POC:??147 mg/dL??High (11/30/23) Glucose, Urine: 2+ Abnormal (11/29/23) Hct:??26.9 %??Low (11/29/23) Hemoglobin, Urine: NEGATIVE (11/29/23) Hgb:??8.7 Gm/dL??Low (11/29/23) Hold Blue Top: SPECIMEN DISCARDED AFTER 4 HOURS. (11/12/23) Hold Gel Top: SPECIMEN DISCARDED AFTER 1 WEEK (11/12/23) Hold Fam Top: SPECIMEN DISCARDED AFTER 1 WEEK (11/12/23) Hold Green Top: SPECIMEN DISCARDED AFTER 1 WEEK (11/12/23) Hold Urine: Testing Available 24 hours from Time of Collection (11/29/23) Hold Urine Culture: Testing available 48 hours from time of collection. (11/29/23) Imm Gran: 0.4 % (11/29/23) INR: 1 (11/13/23) Ketones, Urine: NEGATIVE (11/29/23) Lactate: 0.9 mmol/L (11/12/23) Leukocyte, Urine: NEGATIVE (11/29/23) Lipase: 50 units/L (11/29/23) Lymph %: 21.2 % (11/29/23) Magnesium:??1.5 mg/dL??Low (11/15/23) MCH:??26.8 pg??Low (11/29/23) MCHC:??32.3 g/dL??Low (11/29/23) MCV: 82.8 femtoliters (11/29/23) [place] %:??11.3 %??High (11/29/23) MPV: 9.6 femtoliters (11/29/23) Neut %: 66.7 % (11/29/23) Nitrite, Urine: NEGATIVE (11/29/23) Nucleated RBC (Automated): 0 #/100 WBC'S (11/29/23) Opiate Screen, Urine: NONE DETECTED (11/29/23) pH, Urine: 6.5 (11/29/23) Platelet Count:??107 k/mm3??Low (11/29/23) Potassium: 4.3 mmol/L (11/29/23) Protein, Total: 7.9 Gm/dL (11/29/23) Protime (PT): 11.1 seconds (11/13/23) RBC:??3.25 m/mm3??Low (11/29/23) RBC's, Urine: 2 /HPF (11/29/23) RDW-SD: 44.6 femtoliters (11/29/23) Sodium:??130 mmol/L??Low (11/29/23) Specific [place], Urine: 1.006 (11/29/23) Surgical Pathology: Surgical Pathology (11/14/23) TSH: 4.08 uIU/mL (11/29/23) Urine Cult Antimicrobial Susceptibility: Comment (11/12/23) Urine Culture Isolate 1: Klebsiella pneumoniae Abnormal (11/12/23) Urine Culture Results: Final report Abnormal (11/12/23) Urine Culture Specimen Source: URINE (11/12/23) Urobilinogen: NORMAL (11/29/23) WBC:??2.7 k/mm3??Low (11/29/23) WBC's, Urine: <1 (11/29/23) Patient Care team information Care Team Personnel Name: Taylor Newell Position: [facility] Onco RN Member Role: Primary Care Nurse Name: Naty Pierson RN Position: [facility] RN Member Role: Primary Care Nurse Name: Kirsten Fernandes RN Position: [facility] RN Supv Member Role: Primary Care Nurse Name: Melinda Morelos RN Position: [facility] RN Member Role: Primary Care Nurse Name: Sophia Pereira RN Position: [facility] RN Member Role: Primary Care Nurse Name: Rhonda Sapp RN Position: [facility] RN Member Role: Primary Care Nurse Name: Tammy Prescott RN Position: [facility] RN Member Role: Primary Care Nurse Name: Armando Justice RN Position: [facility] ED RN W/OE and Tasks Member Role: Primary Care Nurse Name: Arabella He RN Position: [facility] RN Member Role: Primary Care Nurse Name: Yoli Bryant RN Position: [facility] RN Member Role: Primary Care Nurse Name: Sarah Bales RN Position: [facility] RN Member Role: Primary Care Nurse Name: Naty Holt RN Position: [facility] RN Member Role: Primary Care Nurse Name: Kim Gonzalez RN Position: [facility] RN Member Role: Primary Care Nurse Name: Allyson Rodriguez RN Position: [facility] RN Member Role: Primary Care Nurse Name: Avril Wright RN Position: [facility] RN Member Role: Primary Care Nurse Name: Linda Manzano RN Position: [facility] RN Member Role: Primary Care Nurse Name: Chris Lobo RN Position: [facility] RN Member Role: Primary Care Nurse Name: Emilee Goldstein RN Position: [facility] RN Member Role: Primary Care Nurse Name: Francesca Day RN Position: [facility] AMB Nurse Member Role: Primary Care Nurse Name: Eliceo Ortiz RN Position: [facility] RN Member Role: Primary Care Nurse Name: Gwendolyn Petersen RN Position: [facility] RN Member Role: Primary Care Nurse Name: Mando Esparza RN Position: [facility] RN Member Role: Primary Care Nurse Name: Alida Cam RN Position: [facility] RN Member Role: Primary Care Nurse Name: Angella Lehman RN Position: [facility] RN Member Role: Primary Care Nurse Name: Alexandra Huff RN Position: [facility] RN Member Role: Primary Care Nurse Name: Kaya Worley RN Position: [facility] SN RN Member Role: Primary Care Nurse Name: Williams Talley RN Position: [facility] RN Member Role: Primary Care Nurse Name: Kylie Cheng RN Position: [facility] RN Member Role: Primary Care Nurse Name: Andrew Leach RN Position: [facility] SN RN Member Role: Primary Care Nurse Name: Kirsten Suarez RN Position: [facility] RN Member Role: Primary Care Nurse Name: Naty Collazo RN Position: [facility] RN Member Role: Primary Care Nurse Name: Keira Canada RN Position: [facility] RN Member Role: Primary Care Nurse Name: Karley Morgan Position: [facility] RN Member Role: Primary Care Nurse Name: Haley Alexander Position: [facility] RN Member Role: Primary Care Nurse Name: Elaine Powell RN Position: [facility] RN Member Role: Primary Care Nurse Name: Osmel Torres RN Position: [facility] RN Member Role: Primary Care Nurse Name: Kim Gates MD Position: [facility] Outreach Member Role: PCP Address: Address: [address] [place] [id number] Name: Can Coto RN Position: [facility] RN Member Role: Primary Care Nurse Name: Janice Norwood RN Position: [facility] RN Member Role: Primary Care Nurse Name: Chucky Chandler RN Position: [facility] RN Member Role: Primary Care Nurse Name: Rakesh Barriga RN Position: [facility] RN Member Role: Primary Care Nurse Name: Gwendolyn Renteria LPN Position: [facility] RN Member Role: Primary Care Nurse Name: Marla Bell RN Position: [facility] Web Development Director Member Role: Primary Care Nurse Name: Danielle Iraheta RN Position: [facility] RN Member Role: Primary Care Nurse Name: Eddy Castle RN Position: [facility] ED RN W/OE and Tasks Member Role: Primary Care Nurse Name: Laura Loving RN Position: [facility] RN Member Role: Primary Care Nurse Name: Kavya Gaytan RN Position: [facility] RN Member Role: Primary Care Nurse Name: Allyson Bales RN Position: [facility] RN Member Role: Primary Care Nurse Name: Bryce Javier RN Position: [facility] RN Member Role: Primary Care Nurse Name: Charo Romano RN Position: [facility] SN RN Member Role: Primary Care Nurse Name: Patito Levin RN Position: [facility] RN Member Role: Primary Care Nurse Name: Elaine Hannon RN Position: [facility] RN Member Role: Primary Care Nurse Name: Sierra Mcqueen RN Position: [facility] RN Member Role: Primary Care Nurse Name: Kathya Pablo RN Position: [facility] Web Development Director Member Role: Primary Care Nurse Care Team Related Persons Name: CLAUDIA PATRICK Address: [address] [address]
--- OUTSIDE RECORDS SUMMARY | 2024-02-03 05:41 | XMS_ITS | Continuity of Care Document ---
Author Organization [facility] Address [address] [place] [id number]- Care Team Providers Care School Based Therapist Name Role Phone Kim Gates MD Primary Care Physician [phone] Encounter [facility] Date(s): 11/22/23 - 12/22/23 [facility] [address] [place] [id number] [place] Allergies, Adverse Reactions, Alerts Substance Reaction Severity [...] 10:51:00 EDT, Inhaler, Route to Pharmacy Electronically, [id number], [facility], 150, cm, 07/24/23 7:21:00 EDT, He... Start Date: 07/26/23 Status: Ordered amLODIPine 5 mg oral tablet 5 mg, By Mouth, Daily, hold if systolic blood pressure is below 120 mmHg, # 90 tablet, Refills 0, Tot. Refills 0, Maintenance, 07/26/23 10:51:00 EDT, Route to Pharmacy Electronically, [facility], Partial fill upon patient request... [...] Maintenance, 07/26/23 10:51:00 EDT,Route to Pharmacy Electronically, [facility], Partial fill upon patient [...] 0 Refills, Maintenance, 07/26/23 10:51:00 EDT, Tablet, [facility], Partial fill upon patient [...] Maintenance, 07/26/23 10:51:00 EDT,Route to Pharmacy Electronically, [facility], Partial fill upon patient [...] 0 Refills, Maintenance, 07/26/23 10:51:00 EDT, Tablet, [facility], Partial fill upon patient [...] 0 Refills, Maintenance, 07/26/23 10:51:00 EDT, Tablet, [facility], Partial fill upon patient re... Start Date: 07/26/23 Status: Ordered losartan 100 mg oral tablet 1 tablet = 100 mg, By Mouth, Daily, hold if systolic blood pressure is below 120 mmHg, # 90 tablet,0 Refills, Maintenance, 07/26/23 10:51:00 EDT, Tablet, [facility], Partial fill upon patient request if the prescription is for a... Start Date: 07/26/23 Status: Ordered mirtazapine 30 mg oral tablet, disintegrating 1 tablet = 30 mg, By Mouth, Daily at bedtime, # 90 tablet, 0 Refills, Maintenance, 07/26/23 10:51:00 EDT, DIS Tablet, [facility], Partial fill upon patient request if the prescription is for a schedule II opioid drug., 150, cm, 04... Start Date: 07/26/23 Status: Ordered multivitamin with minerals Multiple Vitamins with Minerals oral tablet 1 tablet, By Mouth, Daily, # 90 tablet, 0 Refills, Maintenance, 07/26/23 10:51:00 EDT, Tablet, [facility], Partial fill upon patient [...] 07/26/23 10:51:00 EDT, Route to Pharmacy Electronically, [facility], Partial fill upon patient request if the prescription is for a schedule I... Start Date: 07/26/23 Status: Ordered thiamine 100 mg oral tablet 100 mg, By Mouth, Daily, # 90 tablet, Refills 0, Tot. Refills 0, Maintenance, 07/26/23 10:51:00 EDT, Route to Pharmacy Electronically, [facility], Partial fill upon patient request if the prescription is for a schedule II opioid d... Start Date: 07/26/23 Status: Ordered traZODone 50 mg oral tablet 50 mg, By Mouth, Daily at bedtime, PRN, # 30 tablet, Refills 0, Tot. Refills 0, Maintenance, Insomnia, 07/26/23 10:51:00 EDT, Route to Pharmacy Electronically, [facility], Partial fill upon patient [...] Neoplasm of Left Breast, pT1c, pNX, IDC, ER/CA positive recurrent in 2008 after initial diagnosis [...] Care Team Personnel Name: Taylor Newell Position: [facility] Onco RN Member Role: Primary Care Nurse Name: Naty Pierson RN Position: [facility] RN Member Role: Primary Care Nurse Name: Kirsten Fernandes RN Position: [facility] RN Supv Member Role: Primary Care Nurse Name: Melinda Morelos RN Position: [facility] RN Member Role: Primary Care Nurse Name: Sophia Pereira RN Position: [facility] RN Member Role: Primary Care Nurse Name: Rhonda Sapp RN Position: [facility] RN Member Role: Primary Care Nurse Name: Tammy Prescott RN Position: [facility] RN Member Role: Primary Care Nurse Name: Armando Justice RN Position: [facility] ED RN W/OE and Tasks Member Role: Primary Care Nurse Name: Arabella He RN Position: [facility] RN Member Role: Primary Care Nurse Name: Yoli Bryant RN Position: [facility] RN Member Role: Primary Care Nurse Name: Sarah Bales RN Position: [facility] RN Member Role: Primary Care Nurse Name: Naty Holt RN Position: [facility] RN Member Role: Primary Care Nurse Name: Kim Gonzalez RN Position: [facility] RN Member Role: Primary Care Nurse Name: Allyson Rodriguez RN Position: [facility] RN Member Role: Primary Care Nurse Name: Avril Wright RN Position: [facility] RN Member Role: Primary Care Nurse Name: Linda Manzano RN Position: [facility] RN Member Role: Primary Care Nurse Name: Chris Lobo RN Position: [facility] RN Member Role: Primary Care Nurse Name: Emilee Goldstein RN Position: [facility] RN Member Role: Primary Care Nurse Name: Francesca Day RN Position: [facility] AMB Nurse Member Role: Primary Care Nurse Name: Eliceo Ortiz RN Position: [facility] RN Member Role: Primary Care Nurse Name: Gwendolyn Petersen RN Position: [facility] RN Member Role: Primary Care Nurse Name: Mando Esparza RN Position: [facility] RN Member Role: Primary Care Nurse Name: Alida Cam RN Position: [facility] RN Member Role: Primary Care Nurse Name: Angella Lehman RN Position: [facility] RN Member Role: Primary Care Nurse Name: Alexandra Huff RN Position: [facility] RN Member Role: Primary Care Nurse Name: Kaya Worley RN Position: [facility] SN RN Member Role: Primary Care Nurse Name: Williams Talley RN Position: [facility] RN Member Role: Primary Care Nurse Name: Kylie Cheng RN Position: [facility] RN Member Role: Primary Care Nurse Name: Andrew Leach RN Position: [facility] SN RN Member Role: Primary Care Nurse Name: Kirsten Suarez RN Position: [facility] RN Member Role: Primary Care Nurse Name: Naty Collazo RN Position: [facility] RN Member Role: Primary Care Nurse Name: Keira Canada RN Position: [facility] RN Member Role: Primary Care Nurse Name: Karley Morgan Position: [facility] RN Member Role: Primary Care Nurse Name: Haley Alexander Position: [facility] RN Member Role: Primary Care Nurse Name: Elaine Powell RN Position: [facility] RN Member Role: Primary Care Nurse Name: Osmel Torres RN Position: [facility] RN Member Role: Primary Care Nurse Name: Kim Gates MD Position: [facility] Outreach Member Role: PCP Address: Address: [address] [place] [id number]- Name: Can Coto RN Position: [facility] RN Member Role: Primary Care Nurse Name: Janice Norwood RN Position: [facility] RN Member Role: Primary Care Nurse Name: Chucky Chandler RN Position: [facility] RN Member Role: Primary Care Nurse Name: Rakesh Barriga RN Position: [facility] RN Member Role: Primary Care Nurse Name: Gwendolyn Renteria LPN Position: [facility] RN Member Role: Primary Care Nurse Name: Marla Bell RN Position: [facility] Manager In Home Member Role: Primary Care Nurse Name: Danielle Iraheta RN Position: [facility] RN Member Role: Primary Care Nurse Name: Eddy Castle RN Position: [facility] ED RN W/OE and Tasks Member Role: Primary Care Nurse Name: Laura Loving RN Position: [facility] RN Member Role: Primary Care Nurse Name: Kavya Gaytan RN Position: [facility] RN Member Role: Primary Care Nurse Name: Allyson Bales RN Position: [facility] RN Member Role: Primary Care Nurse Name: Bryce Javier RN Position: [facility] RN Member Role: Primary Care Nurse Name: Charo Romano RN Position: [facility] RN Member Role: Primary Care Nurse Name: Patito Levin RN Position: [facility] RN Member Role: Primary Care Nurse Name: Elaine Hannon RN Position: [facility] RN Member Role: Primary Care Nurse Name: Sierra Mcqueen RN Position: [facility] RN Member Role: Primary Care Nurse Name: Kathya Pablo RN Position: [facility] Manager In Home Member Role: Primary Care Nurse Care Team Related Persons Name: REJIBHARGAVCLAUDIA Address: [address] [place] [address]
[2024-02-03 06:20] VITALS: BP 134/52; PULSE 72; RESP 16; TEMP 36.4; O2SAT 98; BMI 19.5
[2024-02-03 06:23] LABS: Glucose, Whole Blood 166 mg/dL (60-115)
--- NOTE | 2024-02-03 06:47 | HO.ANESPROP2 ---
[facility] Active Problems Active Problems: All Active Problems Hx of Clostridium difficile infection (Acute) Major depressive disorder with psychotic features (Acute) Essential hypertension (Acute) Type 2 diabetes mellitus with unspecified complications (Acute) Aortic valve sclerosis (Acute) Murmur (Acute) CKD (chronic kidney disease) stage 3, GFR 30-59 ml/min (Acute) Vitamin D deficiency (Acute) HLD (hyperlipidemia) (Acute) HTN (hypertension) (Acute) T2DM (type 2 diabetes mellitus) (Acute) Past Medical History Medical History (Updated 01/22/24 @ 00:03 by Jenifer Lamb) Fecal impaction Cirrhosis Hypothyroidism Breast cancer Hx of Clostridium difficile infection (HFpEF) heart failure with preserved ejection fraction Murmur CKD (chronic kidney disease) stage 3, GFR 30-59 ml/min Vitamin D deficiency HLD (hyperlipidemia) HTN (hypertension) T2DM (type 2 diabetes mellitus) Family History Family History Father Alzheimer disease Stroke Mother Breast cancer Family history of problems with anesthesia: No Surgical History Surgical History Hx of cataract surgery History of lumpectomy of right breast History of mastectomy History of Problems with Anesthesia: No Social History Social History Household Members: Family Household Members Other:: son Alcohol intake: never Comment: 1:1 observation Patient Tobacco Use Status: Never used Tobacco Advance Directives: No Advance Directives Information Provided: Yes service: No Sexual orientation: Straight/Heterosexual Meds Allergies Allergy/AdvReac Type Severity Reaction Status Date / Time atropine Allergy Unknown Shortness Verified 12/02/23 23:30 of Breath enoxaparin [From Lovenox] Allergy Unknown Unknown Verified 12/02/23 23:30 penicillin V Allergy Unknown Unknown Verified 03/19/23 07:30 pseudoephedrine [Aprodine] Allergy Unknown Unknown Verified 03/19/23 07:30 triprolidine [Aprodine] Allergy Unknown Unknown Verified 03/19/23 07:30 Exam Height,Weight and Vital Signs: Height 5 ft Weight 45.359 kg Last Vital Signs Temp 97.6 F 02/03/24 06:20 Pulse 72 02/03/24 06:20 Resp 16 02/03/24 06:20 BP 134/52 L 02/03/24 06:20 Pulse Ox 98 02/03/24 06:20 O2 Del Method Room Air 02/03/24 06:20 Pertinent Lab Results Pertinent Lab Results: Laboratory Tests 02/03/24 06:19 POC Glucose 166 H Airway Mallampati Class: II (missing alot of teeth) TM Dist: >3cm Neck ROM: Full Heart: rrr Lungs: cta Assessment and Plan Assessment Anesthesia Assessment: Anesthesia Plan Discussed and Chart Reviewed Final Anesthetic Review Family History of Problems with Anesthesia: No History of Problems with Anesthesia: No NPO: Yes ASA Class: III Final Preanesthetic Review: No Changes in Pt Med Stat, Meds/Allgs Chart Reviewed and Consent Obtained/Reviewed Patient Risk: Intermediate Procedure Risk: Intermediate Anesthetic Plan Anesthetic Plan: GA Disposition: Standard PACU
[2024-02-03] MEDS: Lactated Ringers 1,000 ML 50 ML IVCONT (06:56)
--- NOTE | 2024-02-03 06:59 | MHC.SHP ---
Pre-Procedural Eval Section A - 24 Hr Update-Section A only Date of Service: 02/03/24 The patient is an INPATIENT: No Changes since office visit: No Cold of Flu in the past 2 weeks, No New Medical Problems, No Changes in Medication and No Patient answered all questions The patient has been examined within 24 hours of the surgical procedure. The History & Physical has been completed within 30 days and I have reviewed it.: Yes Section B - Complete if H&P > 30 days Chief Complaint: depression Details of Present Illness: hx of severe depression with catatonia that resolves with ECT Relevant Family History (Specify if Yes): No Relevant Social History: None Present Medications: see Short Stay Collaborative assessment Medical History: No relevant PMH History of Previous Operations: No relevant previous surgery Allergies: Allergies Allergy/AdvReac Type Severity Reaction Status Date / Time atropine Allergy Unknown Shortness Verified 12/02/23 23:30 of Breath enoxaparin [From Lovenox] Allergy Unknown Unknown Verified 12/02/23 23:30 penicillin V Allergy Unknown Unknown Verified 03/19/23 07:30 pseudoephedrine [Aprodine] Allergy Unknown Unknown Verified 03/19/23 07:30 triprolidine [Aprodine] Allergy Unknown Unknown Verified 03/19/23 07:30 Review of Systems Sugical H&P ROS: Negative: Constitution, Cardiovascular, Respiratory, Neurological, Psychiatric, Hem-Onc, Allergic/Immunologic, Gastrointestinal, Genitourinary, Musculoskeletal, Integumentary, Endocrine and Eyes/Ears/Nose/Throat Exam Surgical H&P Exam: Normal: HEENT, Normal: Heart, Normal: Lungs, Normal: Extremities, Normal: Abdomen, Normal: Skin and Normal: Neurological Plan Diagnosis/Plan: Unchanged I have reviewed the history and physical and performed a pertinent physical examination on my patient. No changes have occurred unless specified. Time Spent With Patient Time: Total time managing care of this patient today __20__ minutes.
--- NOTE | 2024-02-03 07:15 | HO.ECTPROC ---
ECT Procedure Note Diagnosis/Treatment Date of Service: 02/03/24 Diagnosis: Major Depressive Disorder and Catatonia Previous ECT Date: 01/20/24 Current Treatment Number: 11 Interval Clinical Notes: The patient denies exacerbation of depression, no side effects with previous ECT. ECT done as usual, no complications, woke up well. Time: Total time managing care of this patient today __30__ minutes. ECT Settings Device: THYMATRON DGx Electrode Placement: Rt temporal/ Lt frontal Program/Pulse Width: 0.50 Energy Percent: 100 Seizure Duration By EEG (in seconds): 63 By Motor Observation (in seconds): 48 Medications Administration General Anesthetic: Etomidate (12) Muscle Relaxant: Succinylcholine (60) Ancillary Medications Miscillaneous Medications: Midazolam (2 mg post ECT) Airway Management Airway Management: Bag Mask Ventilation Treatment Recommendations No Changes Recommended: No change Pt Tolerated Procedure w/o Issue: Yes
[2024-02-03 07:19] VITALS: BP 158/59; PULSE 67; RESP 16; TEMP 36.3; O2SAT 100
[2024-02-03 07:24] VITALS: BP 144/69; PULSE 100; RESP 16; O2SAT 100
[2024-02-03 07:29] VITALS: BP 149/69; PULSE 105; RESP 16; O2SAT 96
[2024-02-03 07:34] VITALS: BP 155/74; PULSE 103; RESP 16; O2SAT 97
[2024-02-03 07:49] VITALS: BP 149/69; PULSE 97; RESP 16; TEMP 36.3; O2SAT 96
== END 2024-02-03 08:15 | disposition home or self-care (01) ==
PROVIDERS: PCP Student in an Organized Health Care Education/Training Program; Visit Provider Psychiatry & Neurology Psychiatry
PROC: (CPT 90870; principal; 2024-02-03 07:30)
DX: F33.2 Major depressive disorder, recurrent severe without psychotic features (principal); F06.1 Catatonic disorder due to known physiological condition; I13.0 Hypertensive heart and chronic kidney disease with heart failure and stage 1 through stage 4 chronic kidney disease, or unspecified chronic kidney disease; E11.22 Type 2 diabetes mellitus with diabetic chronic kidney disease; N18.30 Chronic kidney disease, stage 3 unspecified; I50.30 Unspecified diastolic (congestive) heart failure; E78.5 Hyperlipidemia, unspecified; E03.9 Hypothyroidism, unspecified; Z85.3 Personal history of malignant neoplasm of breast; Z79.85 Long-term (current) use of injectable non-insulin antidiabetic drugs; Z79.4 Long term (current) use of insulin; Z79.811 Long term (current) use of aromatase inhibitors; Z88.0 Allergy status to penicillin; Z88.8 Allergy status to other drugs, medicaments and biological substances
CPT/HCPCS: 82947; 90870; J0330; J2250; J2405

== ENCOUNTER → 2024-02-03 05:38 | Outpatient (BNV) | payer MEDICARE, MEDICAID, SELFPAY | PROVIDERS: PCP Student in an Organized Health Care Education/Training Program; Visit Provider Psychiatry & Neurology Psychiatry | DX: F33.3 Major depressive disorder, recurrent, severe with psychotic symptoms (principal) | CPT/HCPCS: 90870 ==

== ENCOUNTER 2024-02-10 05:49 | Day surgery (SDC) | payer MEDICARE, MEDICAID, SELFPAY ==
[2024-02-10 06:38] VITALS: BP 120/58; PULSE 70; RESP 16; TEMP 36.1; O2SAT 99; BMI 24.2
[2024-02-10] MEDS: Lactated Ringers 1,000 ML 100 ML IVCONT (06:55)
--- NOTE | 2024-02-10 07:00 | MHC.SHP ---
Documented by User: Bulmaro Greene MD 02/10/24 07:26 Pre-Procedural Eval Section A - 24 Hr Update-Section A only Date of Service: 02/10/24 Section B - Complete if H&P > 30 days Chief Complaint: depression Details of Present Illness: recurrent depression catatonia has diabetes Relevant Social History: None Present Medications: see Short Stay Collaborative assessment History of Previous Operations: No relevant previous surgery (ect) Allergies: Allergies Allergy/AdvReac Type Severity Reaction Status Date / Time atropine Allergy Unknown Shortness Verified 12/02/23 23:30 of Breath enoxaparin [From Lovenox] Allergy Unknown Unknown Verified 12/02/23 23:30 penicillin V Allergy Unknown Unknown Verified 03/19/23 07:30 pseudoephedrine [Aprodine] Allergy Unknown Unknown Verified 03/19/23 07:30 triprolidine [Aprodine] Allergy Unknown Unknown Verified 03/19/23 07:30 Review of Systems Sugical H&P ROS: Negative: Psychiatric (less depressed) and Yes, Specify: Musculoskeletal (shoulder discomfort) Exam Surgical H&P Exam: Normal: Heart (rr), Normal: Lungs and Normal: Neurological (alert clear sensorium) Exam Comment: 120/58 p 70 Plan Diagnosis/Plan: Unchanged I have reviewed the history and physical and performed a pertinent physical examination on my patient. No changes have occurred unless specified. Time Spent With Patient Time: Total time managing care of this patient today ____ minutes. Documented by User: Sierra Lima MD 02/10/24 07:09 Pre-Procedural Eval Section A - 24 Hr Update-Section A only Date of Service: 02/10/24 Section B - Complete if H&P > 30 days Chief Complaint: depression
[2024-02-10 07:09] LABS: Glucose, Whole Blood 182 mg/dL (60-115)
--- NOTE | 2024-02-10 07:09 | P.CONAN_ITS ---
[facility] Active Problems Active Problems: All Active Problems Hx of Clostridium difficile infection (Acute) Major depressive disorder with psychotic features (Acute) Essential hypertension (Acute) Type 2 diabetes mellitus with unspecified complications (Acute) Aortic valve sclerosis (Acute) Murmur (Acute) CKD (chronic kidney disease) stage 3, GFR 30-59 ml/min (Acute) Vitamin D deficiency (Acute) HLD (hyperlipidemia) (Acute) HTN (hypertension) (Acute) T2DM (type 2 diabetes mellitus) (Acute) Past Medical History Medical History Fecal impaction Cirrhosis Hypothyroidism Breast cancer Hx of Clostridium difficile infection (HFpEF) heart failure with preserved ejection fraction Murmur CKD (chronic kidney disease) stage 3, GFR 30-59 ml/min Vitamin D deficiency HLD (hyperlipidemia) HTN (hypertension) T2DM (type 2 diabetes mellitus) Family History Family History Father Alzheimer disease Stroke Mother Breast cancer Family history of problems with anesthesia: No Surgical History Surgical History Hx of cataract surgery History of lumpectomy of right breast History of mastectomy History of Problems with Anesthesia: No Social History Social History Household Members: Family Household Members Other:: son Alcohol intake: never Comment: 1:1 observation Patient Tobacco Use Status: Never used Tobacco Advance Directives: No Advance Directives Information Provided: Yes service: No Sexual orientation: Straight/Heterosexual Meds Allergies Allergy/AdvReac Type Severity Reaction Status Date / Time atropine Allergy Unknown Shortness Verified 12/02/23 23:30 of Breath enoxaparin [From Lovenox] Allergy Unknown Unknown Verified 12/02/23 23:30 penicillin V Allergy Unknown Unknown Verified 03/19/23 07:30 pseudoephedrine [Aprodine] Allergy Unknown Unknown Verified 03/19/23 07:30 triprolidine [Aprodine] Allergy Unknown Unknown Verified 03/19/23 07:30 Active Medications: Current Medications Lactated Ringer's (Lr) 1,000 mls @ 100 mls/hr IVCONT .Q10H TOVA Last Admin: 02/10/24 06:55 Dose: 100 mls/hr Exam Height,Weight and Vital Signs: Height 4 ft 11 in Weight 54.431 kg Last Vital Signs Temp 96.9 F 02/10/24 06:38 Pulse 70 02/10/24 06:38 Resp 16 02/10/24 06:38 BP 120/58 L 02/10/24 06:38 Pulse Ox 99 02/10/24 06:38 O2 Del Method Room Air 02/10/24 06:38 Airway Mallampati Class: II TM Dist: >3cm Neck ROM: Full Loose/Missing/Broken Teeth: No Heart: RRR Lungs: CTA Assessment and Plan Assessment Anesthesia Assessment: Anesthesia Plan Discussed and Chart Reviewed Final Anesthetic Review Family History of Problems with Anesthesia: No History of Problems with Anesthesia: No NPO: Yes ASA Class: III Final Preanesthetic Review: Meds/Allgs Chart Reviewed, Consent Obtained/Reviewed and Anes Risks/Benef Reviewed Patient Risk: Intermediate Procedure Risk: Intermediate Anesthetic Plan Anesthetic Plan: GA Disposition: Standard PACU
--- NOTE | 2024-02-10 07:26 | HO.ECTPROC ---
ECT Procedure Note Diagnosis/Treatment Date of Service: 02/10/24 Diagnosis: Bipolar disorder Previous ECT Date: 02/03/24 Treatment: Maintenance Interval Clinical Notes: Patient seen she states mood is improved seen with certified tower climber complains of right shoulder pain otherwise doing okay she states no complaints of side effects Time: Total time managing care of this patient today ____ minutes. ECT Settings Device: THYMATRON DGx Electrode Placement: Right Unilateral Program/Pulse Width: 0.50 Energy Percent: 90 Seizure Duration By EEG (in seconds): 46 Medications Administration General Anesthetic: Etomidate (12) Muscle Relaxant: Succinylcholine (80) Ancillary Medications Anti-emetics: Zofran - Pre ECT Airway Management Airway Management: Bag Mask Ventilation Treatment Recommendations No Changes Recommended: No change
[2024-02-10 07:30] VITALS: BP 122/58; PULSE 71; RESP 18; TEMP 36.8; O2SAT 100
[2024-02-10 07:35] VITALS: BP 123/68; PULSE 93; RESP 18; O2SAT 100
[2024-02-10 07:40] VITALS: BP 119/55; PULSE 93; RESP 18; O2SAT 100
[2024-02-10 07:45] VITALS: BP 122/56; PULSE 93; RESP 18; O2SAT 98
[2024-02-10 08:02] VITALS: BP 128/43; PULSE 93; RESP 18; O2SAT 98
== END 2024-02-10 08:36 | disposition home or self-care (01) ==
PROVIDERS: PCP Student in an Organized Health Care Education/Training Program; Visit Provider Psychiatry & Neurology Psychiatry
PROC: (CPT 90870; principal; 2024-02-10 07:00)
DX: F31.9 Bipolar disorder, unspecified (principal); F06.1 Catatonic disorder due to known physiological condition; E11.22 Type 2 diabetes mellitus with diabetic chronic kidney disease; I13.0 Hypertensive heart and chronic kidney disease with heart failure and stage 1 through stage 4 chronic kidney disease, or unspecified chronic kidney disease; N18.30 Chronic kidney disease, stage 3 unspecified; I50.9 Heart failure, unspecified; Z79.4 Long term (current) use of insulin; Z79.85 Long-term (current) use of injectable non-insulin antidiabetic drugs; M25.511 Pain in right shoulder; Z88.0 Allergy status to penicillin; Z88.8 Allergy status to other drugs, medicaments and biological substances
CPT/HCPCS: 82947; 90870; J0330; J2250; J2405

== ENCOUNTER → 2024-02-10 05:49 | Outpatient (BNV) | payer MEDICARE, MEDICAID, SELFPAY | PROVIDERS: PCP Student in an Organized Health Care Education/Training Program; Visit Provider Psychiatry & Neurology Psychiatry | DX: F33.2 Major depressive disorder, recurrent severe without psychotic features (principal) | CPT/HCPCS: 90870 ==

== ENCOUNTER 2024-02-21 11:54 | Outpatient (REF) | payer MEDICARE, MEDICAID, SELFPAY ==
[2024-02-24 22:08] LABS: TS Negative Control Passed; TS Panel A 0; TS Panel B 0; TS Positive Control Passed; TSpotTB Negative (Negative)
== END 2024-02-21 11:55 | disposition home or self-care (01) ==
LOC: HO.CHCLDS 11:54
PROVIDERS: Visit Provider Student in an Organized Health Care Education/Training Program
DX: Z11.1 Encounter for screening for respiratory tuberculosis (principal)
CPT/HCPCS: 36415; 86481

== ENCOUNTER 2024-11-19 15:20 | Outpatient (REF) | payer OTHER, SELFPAY ==
--- OUTSIDE RECORDS SUMMARY | 2024-11-19 15:23 | XMS_ITS | Encounter Summary ---
Author Organization [employer] Address [address] [place] [address] [address] [place] [address] Care Team Providers Care Sound Effects Supervisor Name Role Phone Kim Gates MD Primary Care Provider [phone] Encounter Details Date Type Department Care Team (Late st Contact Info) Description 03/16/2024 Orders Only [facility] [address] [place], [place] [id number] ProviderWalter MD Social History Tobacco Use Types Packs/Day Years Used Date Smoking Tobacco: Never Passive Smoke Exposure: Never Smokeless Tobacco: Never Alcohol Use Standard Drinks/Week Comments Never 0 (1 standard drink = 0.6 oz pur e alcohol) Depression Answer Date Recorded Patient Health Questionnaire-9 Score 09/23/2023 Patient Health Questionnaire-9 Score 09/23/2023 Last PHQ-9: Questionnaire Data Not on file 0 09/23/2023 Housing Stability Answer Date Recorded What is your housing situation today? I have emma dempsey 09/10/[address] you li ve. Do you have problems with any of the following? None of the above 09/10/2023 Food Insecurity Answer Date Recorded Within the past 12 months, y ou worried that your food would run out before you got money to buy more: Never True 09/10/2023 Within the past 12 months,th e food you bought just didn't last and you didn't have enough money to get more: Never True Transportation Answer Date Recorded In the past 12 months, has l ack of transportation kept you from medical appts, meetings, work or from getting things needed for daily living? No 09/10/2023 Utilities Answer Date Recorded In the past 12 months, has t he electric, gas, oil or water company threatened to shut off services in your home? No 09/10/2023 Depression Answer Date Recorded Patient Health Questionnaire-2 Score 6 09/23/2023 Comments No Sex and Gender Information Value Date Recorded Sex Assigned at Female 02/12/2022 10:17 AM EDT Legal Sex Female 10:17 AM EDT Gender Identity Female 02/12/2022 10:17 AM EDT Sexual Orientation Choose not to disclose 2021 10:17 AM EDT documented as of this encounter Plan of Treatment Not on file documented as of this encounter Procedures Procedure Name Priority Date/Time Associated Diagnosis Comments HM COLONOSCOPY Routine 03/15/2024 1:35 PM EST documented in this encounter Results * Hm Colonoscopy (03/15/2024 1:35 PM EST) us Historical Provider HEALTH MAINTENANCE Final Result documented in this encounter Visit Diagnoses Not on filedocumented in this encounter Additional Health Concerns Assessment Noted Time PHQ-9 Depression Total Score: 23 024 9:53 AM EDT documented as of this encounter Care Teams Sound Effects Supervisor Relationship Specialty Start Date End Date Kim Gates MD [address] [place] [address] PCP - General Family Medicine 03/18/12 Josy JOHNSON 09/12/24 11/08/24 documented as of this encounter
--- OUTSIDE RECORDS SUMMARY | 2024-11-19 15:23 | XMS_ITS | Clinical Summary ---
Author Organization [facility] Address [address] [facility] [address] [place] [address] Phone Care Team Providers Care Lead Oracle Developer Name Role Phone Kim Gates MD Primary Care Provider [phone] Allergies Active Allergy Reactions Criticality Noted Date Comments Atropine Shortness of breath High 04/21/2021 Enoxaparin 04/21/2021 Penicillin G Other (see comments) 04/21/2021 Tamoxifen 06/19/2010 Other reaction(s): abnormal LFTs Medications ascorbic acid (VITAMIN C) 500 MG tablet Take 500 mg by mouth 1 (one) time each day Active atorvastatin (LIPITOR) 40 MG tablet Take 40 mg by mouth 1 (one) time each day Active Dulaglutide (Trulicity) 1.5 MG/0.5ML solution pen-injector Inject under the skin Active FLUoxetine (PROzac) 20 MG capsule Take 20 mg by mouth 1 (one) time each day Active insulin aspart (NovoLOG) 100 UNIT/ML injection Inject under the skin 3 (three) times a day before meals Active insulin glargine (LANTUS) 100 UNIT/ML injection Inject under the skin every night Active mirtazapine (REMERON) 30 MG tablet Take 30 mg by mouth every night Active risperiDONE (RisperDAL) 1 MG tablet Take 1 mg by mouth every night Active Alcohol Swabs (SM Alcohol Prep) 70 % pads USE THREE OR FOUR DAILY 1 Active Cholecalciferol (Vitamin D3) 50 MCG (1999 UT) tablet TAKE ONE TABLET AT NOON 2 Active Continuous Blood Gluc Sensor (FreeStyle Ladan 2 Sensor) misc CHANGE sensor EVERY 14 DAYS 1 Active FREESTYLE LITE test strip TEST BLOOD SUGAR FOUR TIMES DAILY 1 Active PenTips 32G X 4 MM misc USE FOUR DAILY 1 Active levothyroxine (SYNTHROID, LEVOTHROID) 100 MCG tablet Take 100 mcg by mouth every morning 1 Active anastrozole (ARIMIDEX) 1 MG chemo tablet Take 1 mg by mouth 1 (one) time each day Swallow whole with a drink of water. Active ketorolac (ACULAR) 0.5 % ophthalmic solution PLACE ONE DROP THREE TIMES DAILY IN OPERATIVE EYE STARTING TWO DAYS prior TO SURGERY THEN TAPER DIRECTED 2 Active Farxiga 10 MG tablet TAKE ONE TABLET AT NOON 90 tablet 11 3 Active losartan (COZAAR) 100 MG tablet Take 1 tablet (100 mg total) by mouth 1 (one) time each day 90 tablet 3 3 Active Active Problems Problem Noted Date Diagnosed Date Type 2 diabetes mellitus wit h diabetic chronic kidney disease 04/24/2021 Hypertension 04/24/2021 Persistent proteinuria 04/24/2021 Stage 3 chronic kidney disease 04/21/2021 Resolved Problems Problem Noted Date Diagnosed Date Resolved Date Diverticulitis 04/21/2021 04/21/2021 Pain of breast 10/31/2010 04/21/2021 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 04/21/2021 Recurrent major depressive episodes, moderate 08/15/19 11 04/21/2021 Delirium caused by drug 07/27/201010/2021 Mixed anxiety and depressive disorder 07/27/2010 04/21/2021 Estrogen receptor positive tumor 03/30/2010 04/21/2021 Malignant neoplasm of centra l portion of female breast 03/30/2010 04/21/2021 Immunizations Immunization Administration Dates Next Due Influenza Whole 01/10/2016 Influenza, Unspecified 04/05/2011 Pneumococcal Polysaccharide 01/10/2016, 1 Family History Medical History Relation Comments Stroke Father Cancer Mother Breast Cancer Relation Status Comments Father Mother Social History Tobacco Use Types Packs/Day Years Used Date Smoking Tobacco: Never Smokeless Tobacco: Never Tobacco Cessation:Counseling Given: Not Answered Alcohol Use Standard Drinks/Week Comments Never 0 (1 standard drink = 0.6 oz pur e alcohol) Comments Unknown Sex and Gender Information Value Date Recorded Sex Assigned at Not on file Legal Sex Female 3:39 PM EDT Gender Identity Not on file Sexual Orientation Not on file Last Filed Vital Signs Vital Sign Reading Time Taken Comments Blood Pressure 152/71 12/05/2022 9:42 AM EDT Pulse 83 12/05/2022 9:42 AM EDT Temperature - - Respiratory Rate - - Oxygen Saturation 96% 12/05/2022 9:42 AM EDT Inhaled Oxygen Concentration - - Weight 59 kg (130 lb) 12/05/2022 9:42 AM EDT Height 149.9 cm (4' 11 ) 12/05/2021 4:12 PM EDT Body Mass Index 26.26 12/05/2021 4:12 PM EDT Plan of Treatment Health Maintenance Due Date Last Done Comments Hepatitis B Vaccine (1 of 3 - Risk 3-dose series) 2008 Pneumococcal Vaccine: 50+ Ye ars (3 of 3 - PCV) 01/25/2018 01/25/2017, 01/10/2016, 01/10/2016, Additional history exists Diabetes: Ophthalmology Exam 04/24/2021 Diabetes: Pedal Pulse Checked 04/24/2021 Diabetes: Sensory Foot Exam 04/24/2021 Diabetes: Visual Foot Exam 04/24/2021 Diabetes: Hemoglobin A1C 05/23/2024 024, 09/12/2022, 12/05/2021, Additional history exists Influenza Vaccine (#1) 2024 01/10/2016, 2010 Procedures Procedure Name Priority Date/Time Associated Diagnosis Comments HEMOGLOBIN A1C Routine 12/05/2021 4:33 PM EDT Hypertension Type 2 diabetes mellitus with diabetic chronic kidney disease (HCC) Persistent proteinuria from Last 3 Months or Most Recently Relevant to Health Maintenance Results * (ABNORMAL) Hemoglobin A1c (12/05/2021 4:33 PM EDT) Hemoglobin A1C 9.3(H) (4.0-5.6) % [facility] Comment: MONITORING: In known diabetic patients, hemoglobin A1c targets should be discussed with health care provider. DIAGNOSTIC USE: The [place] Diabetes Association (ADA) and the World Health Organization (WHO) recommend the use of HbA1c to diagnose diabetes using a threshold of 6.5%. Patients who have an HbA1c between 5.7% and 6.4% are considered at increased risk for developing diabetes in the future. CAUTION: Falsely low HbA1c results may be observed in patients with hemolytic anemia, homozygous forms of abnormal hemoglobin (e.g. SS, CC, SC), , recent blood loss or hemoglobin F greater than 7%. Fructosamine may be used as an alternate test in these cases. REFERENCE: ADA: Standards of Medical Care in Diabetes 2020, The Journal of Clinical and Applied Research and Education Volume 43, Supplement 1 Testing performed or reported by [facility], a Service of [facility], [address] [place] [id number] Victor Manuel Urbina MD, Dye Automation Operator [facility]# [id number] Blood specimen (specimen) Venous blood / Unknown 12/05/2021 4:33 PM EDT 12/05/2021 4:39 PM EDT Benjy Alaniz MD LAB BLOOD ORDERABLES Final Re sult [facility] from Last 3 Months or Most Recently Relevant to Health Maintenance Insurance Medicare Medicaid [place] Medicare Medicaid [place] Care Teams Lead Oracle Developer Relationship Specialty Start Date End Date Kim Gates MD [address] [place] [id number] PCP - General Family Medicine 03/16/21
--- OUTSIDE RECORDS SUMMARY | 2024-11-19 15:24 | XMS_ITS | Clinical Summary ---
Author Organization [address] [facility] Address [address] [place] [address] Phone Care Team Providers Care Drawing Instructor Name Role Phone Kim Gates MD Primary Care Provider [phone] Allergies Active Allergy Reactions Criticality Noted Date Comments Atropine 06/10/2024 Penicillins 06/10/2024 Encounters Date Type Department Care Team Description 10/02/2024 Lab Requisition [facility] - Main Lab [address] [place] [address] Petrona Cervantes MD Anemia, unspecified 08/28/2024 Lab Requisition [facility] - Main Lab [address] [place] [address] Petrona Cervantes MD Essential (primary) hypertension; Type 2 diabetes mellitus without complications (CMS/HCC V24, CMS/HCC V28); Iron deficiency from Last 3 Months Social History Tobacco Use Types Packs/Day Years Used Date Smoking Tobacco: Never Assessed Comments Unknown Sex and Gender Information Value Date Recorded Sex Assigned at Not on file Legal Sex Female 2:59 AM EST Gender Identity Not on file Sexual Orientation Not on file Last Filed Vital Signs Vital Sign Reading Time Taken Comments Blood Pressure - - Pulse - - Temperature - - Respiratory Rate - - Oxygen Saturation - - Inhaled Oxygen Concentration - - Weight 44.5 kg (98 lb) 06/10/2024 2:17 PM EST Height 149.9 cm (4' 11 ) 06/10/2024 2:17 PM EST Body Mass Index 19.79 06/10/2024 2:17 PM EST Plan of Treatment Health Maintenance Due Date Last Done Comments Diabetes: Annual Foot Exam 1958 Diabetes: Annual Retina Eye Exam 1960 Hepatitis A Vaccines (1 of 2 - Risk 2-dose series) 1967 Hepatitis B Vaccines (1 of 3 - Risk 3-dose series) 2008 Zoster Vaccines (2 of 2) 04/16/2023 02/19/2023, 09/14 RSV Immunization Adult Patients (1 - 1-dose 75+ series) 2023 COVID-19 Vaccine (4 - season) 2023 03/08/2021, 07/20/2020, 06/22/2020 Depression Screening 04/15/2024 Diabetes: Annual Urine Albumin-Creatinine Ratio (uACR) 06/08/2024 Falls Risk Assessment 06/08/2024 Medicare Annual Wellness Visit 06/08/2024 Osteoporosis Screening (Bone Density Screening) 06/08/2024 Social Influencers of Health Screening 06/08/2024 Influenza Vaccine (#1) 2024 , 01/19/2021, 01/27/2020, Additional history exists Diabetes: Blood Sugar Control Test (HGBA1C) 02/28/2025 08/28/2024, 07/14/2024, 02/21/2024, Additional history exists Diabetes: Annual GFR (Glomerular Filtration Rate) 08/28/2025 08/28/2024 Hypertension/CHF/CAD Annual BMP Blood Test 08/28/2025 08/28/2024 DTaP,Tdap,and Td Vaccines (2 - Td or Tdap) 12/01/2025 12/02/2015 Cholesterol Screening (Lipid Panel) 09/02/2028 09/03/2023 Pneumococcal Vaccine: 50+ Years Completed 01/25/2017, 01/10/2016, 01/10/2016, Additional history exists Hepatitis C Screening Completed 09/12/2022 HIB Vaccines Aged Out No longer eligi ble based on patient's age to complete this topic HPV Vaccines Aged Out No longer eligi ble based on patient's age to complete this topic IPV Vaccines Aged Out No longer eligi ble based on patient's age to complete this topic MMR Vaccines Aged Out No longer eligi ble based on patient's age to complete this topic Meningococcal ACWY Vaccine Aged Out N o longer eligible based on patient's age to complete this topic Meningococcal B Vaccine Aged Out No l onger eligible based on patient's age to complete this topic RSV Immunization Patients Under 20 months Aged Out No longer eligible based on patient's age to complete this topic Varicella Vaccines Aged Out No longer eligible based on patient's age to complete this topic Procedures Procedure Name Priority Date/Time Associated Diagnosis Comments EXTERNAL COLONOSCOPY REPORT Routine 09/17/2024 10:40 AM EDT FERRITIN Routine 08/28/2024 7:32 AM EDT Essential (primary) hypertension Type 2 diabetes mellitus without complications (CMS/HCC V24, CMS/HCC V28) Iron deficiency IRON AND TIBC Routine 08/28/2024 7:32 AM EDT Essential (primary) hypertension Type 2 diabetes mellitus without complications (CMS/HCC V24, CMS/HCC V28) Iron deficiency HEMOGLOBIN A1C Routine 08/28/2024 7:32 AM EDT Essential (primary) hypertension Type 2 diabetes mellitus without complications (CMS/HCC V24, CMS/HCC V28) Iron deficiency BASIC METABOLIC PANEL Routine 08/28/2024 7:32 AM EDT Essential (primary) hypertension Type 2 diabetes mellitus without complications (CMS/HCC V24, CMS/HCC V28) Iron deficiency COMPLETE BLOOD COUNT Routine 08/28/2024 7:32 AM EDT Essential (primary) hypertension Type 2 diabetes mellitus without complications (CMS/HCC V24, CMS/HCC V28) Iron deficiency from Last 3 Months Results * External Colonoscopy Report (09/17/2024 10:40 AM EDT) Anatomical Region Laterality Modality Endoscopy us Historical Provider GI~PROCEDURE ORDERABLES F inal Result * (ABNORMAL) Iron and TIBC (08/28/2024 7:32 AM EDT) Iron 34(L) 40 - 150 mcg/dL LAB CHEMISTRY METHOD 08/28/2024 10:46 AM EDT [facility] TIBC 205(L) 250 - 450 mcg/dL LAB CHEMISTRY METHOD 08/28/2024 10:46 AM [facility] Iron Saturation 17 15 - 50 % LAB CHEMISTRY METHOD 08/28/2024 10:46 AM [facility] Blood Venous blood specimen / Unknown Venipuncture / Unknown 08/28/2024 7:32 AM EDT 08/28/2024 9:27 AM EDT us Petrona Cervantes MD LAB BLOOD ORDERABLES Final Resu lt [facility] [address] [place] [address], * (ABNORMAL) Complete blood count (08/28/2024 7:32 AM EDT) WBC 2.6(L) 4.8 - 10.8 K/mcL LAB HEMETOLOGY METHOD 08/28/2024 10:21 AM [facility] RBC 3.30(L) 3.80 - 4.80 M/mcL LAB HEMETOLOGY METHOD 08/28/2024 10:21 AM [facility] Hemoglobin 8.9(L) 11.5 - 16.0 g/dL LAB HEMETOLOGY METHOD 08/28/2024 10:21 AM [facility] Hematocrit 27.9(L) 35.0 - 47.0 % LAB HEMETOLOGY METHOD 08/28/2024 10:21 AM [facility] MCV 84.5 79.0 - 98.0 FL LAB HEMETOLOGY METHOD 08/28/2024 10:21 AM [facility] MCH 27.0 27.0 - 32.0 pcg LAB HEMETOLOGY METHOD 08/28/2024 10:21 AM [facility] MCHC 31.9(L) 32.0 - 37.0 g/dL LAB HEMETOLOGY METHOD 08/28/2024 10:21 AM EDT [facility] RDW 15.4(H) 11.0 - 15.0 % LAB HEMETOLOGY METHOD 08/28/2024 10:21 AM EDT [facility] Platelets 110(L) 130 - 400 K/mcL [facility] 08/28/2024 10:21 AM EDT [facility] MPV 9.9 7.0 - 11.0 FL LAB HEMETOLOGY METHOD 08/28/2024 10:21 AM EDT [facility] NRBC 0.0 <1.0 % [facility] 08/28/2024 10:21 AM EDT [facility] NRBC Absolute 0.00 <0.10 K/mcL [facility] 08/28/2024 10:21 AM EDT [facility] Blood Venous blood specimen / Unknown Venipuncture / Unknown 08/28/2024 7:32 AM EDT 08/28/2024 9:27 AM EDT us Petrona Cervantes MD LAB BLOOD ORDERABLES Final Resu lt [facility] [address] [place] [address], * (ABNORMAL) Hemoglobin A1c (08/28/2024 7:32 AM EDT) Hemoglobin A1C 7.6(H) <6.5 % LAB CHEMISTRY METHOD 08/28/2024 1:31 PM EDT [facility] Mean Bld Glu Estim. 171 mg/dL LAB CHEMISTRY METHOD 08/28/2024 1:31 PM EDT [facility] Blood Venous blood specimen / Unknown Venipuncture / Unknown 08/28/2024 7:32 AM EDT 08/28/2024 9:27 AM EDT us Petrona Cervantes MD LAB BLOOD ORDERABLES Final Resu lt Performing Organization Address City/[facility]/ZIP Co de Phone Number [facility] [address] [place] [address], [place] [phone] * Ferritin (08/28/2024 7:32 AM EDT) Ferritin 88 8 - 252 ng/mL LAB CHEMISTRY METHOD 08/28/2024 10:47 AM EDT [facility] Blood Venous blood specimen / Unknown Venipuncture / Unknown 08/28/2024 7:32 AM EDT 08/28/2024 9:27 AM EDT Petrona Cervantes MD LAB BLOOD ORDERABLES Final Resu lt Performing Organization Address [facility]/ZIP Co de Phone Number [facility] [address] [place] [address], [place] [phone] * (ABNORMAL) Basic metabolic panel (08/28/2024 7:32 AM EDT) Pathologist [facility] Sodium 133 133 - 145 mmol/L LAB CHEMISTRY METHOD 08/28/2024 10:46 AM [facility] Potassium 3.7 3.5 - 5.5 mmol/L LAB CHEMISTRY METHOD 08/28/2024 10:46 AM [facility] Chloride 97 96 - 110 mmol/L LAB CHEMISTRY METHOD 08/28/2024 10:46 AM [facility] CO2 29 21 - 32 mmol/L LAB CHEMISTRY METHOD 08/28/2024 10:46 AM [facility] Anion Gap 7 3 - 11 LAB CHEMISTRY METHOD 08/28/2024 10:46 AM [facility] Glucose 104(H) 70 - 100 mg/dL LAB CHEMISTRY METHOD 08/28/2024 10:46 AM [facility] BUN 11 5 - 25 mg/dL LAB CHEMISTRY METHOD 08/28/2024 10:46 AM EDT [facility] Creatinine 0.54 0.50 - 1.10 mg/dL LAB CHEMISTRY METHOD 08/28/2024 10:46 AM EDT [facility] eGFR 96 >=60 mL/min/1. 73m2 LAB CHEMISTRY METHOD 08/28/2024 10:46 AM EDT [facility] Comment:Calculation based on the Chronic Kidney Disease Epidemiology Collaboration (CKD-EPI) equation refit without adjustment for race. BUN/Creatinine Ratio 20.4 LAB CHEMISTRY METHOD 08/28/2024 10:46 AM EDT [facility] Calcium 8.6 8.5 - 10.5 mg/dL LAB CHEMISTRY METHOD 08/28/2024 10:46 AM EDT [facility] Blood Venous blood specimen / Unknown Venipuncture / Unknown 08/28/2024 7:32 AM EDT 08/28/2024 9:27 AM EDT us Petrona Cervantes MD LAB BLOOD ORDERABLES Final Resu lt [facility] [address] [place] [address], [place] [phone] from Last 3 Months Insurance MEDICAID - [place] [facility] MEDICARE ADVANTAGE Care Teams Drawing Instructor Relationship Specialty Start Date End Date Kim Gates MD [address] [place] [id number] PCP - General 09/05/23
[2024-11-19 17:36] LABS: MANUAL DIFF FLAG NO
[2024-11-19 17:56] LABS: Hematocrit 27.1 % (37.0-47.0); Hemoglobin 8.6 g/dl (12.0-16.0); Imm Gran Abs Auto 0.01 X10*3/uL (0.00-0.03); Imm Gran Pct Auto 0.3 % (0.0-0.4); Lymphocytes Absolute Auto 0.8 X10*3/uL (1.2-4.9); Mean Corpuscular HGB Conc 31.7 g/dl (31.0-35.0); Mean Corpuscular Hemoglobin 25.8 pg (27.0-33.0); Mean Corpuscular Volume 81.4 fL (80.0-98.0); NRBC Abs Auto 0.000 X10*3/uL (0.0-0.012); NRBC Pct Auto 0.0 /100WBC (0.0-0.2); Platelet Count 138 X10*3/uL (160-400); Red Blood Count 3.33 X10*6/uL (4.20-5.50); Reticulocytes Absolute 0.055 X10*6/uL (0.026-0.095); White Blood Count 2.9 X10*3/uL (4.8-10.8)
[2024-11-19 18:07] LABS: Alanine Aminotransferase 25 U/L (0-31); Albumin Level 3.4 g/dL (3.5-5.0); Alkaline Phosphatase 177 U/L (39-117); Anion Gap 12 (12-20); Aspartate Amino Transferase 33 U/L (5-31); Blood Urea Nitrogen 17 mg/dL (9-16); Calcium 9.4 mg/dL (8.4-10.2); Carbon Dioxide 27 mmol/L (22-29); Chloride 101 mmol/L (96-108); Estimated Glomerular Filt Rate > 60; Iron 25 mcg/dL (30-160); Percent Iron Saturation 11 % (15-50); Potassium 4.3 mmol/L (3.3-5.1); Sodium 136 mmol/L (135-145); Total Iron Binding Capacity 233 mcg/dL (228-428); Total Protein 8.5 g/dL (6.5-8.0); Unsaturated Iron Binding 208 ug/dL
== END 2024-11-19 15:21 | disposition home or self-care (01) ==
LOC: HO.CHCLDS 15:20
PROVIDERS: PCP Student in an Organized Health Care Education/Training Program; Visit Provider Internal Medicine
DX: E11.22 Type 2 diabetes mellitus with diabetic chronic kidney disease (principal); F32.A Depression, unspecified; D64.9 Anemia, unspecified; Z79.4 Long term (current) use of insulin
CPT/HCPCS: 36415; 80053; 83540; 85025; 85045

== ENCOUNTER 2025-02-11 10:24 | Outpatient (REF) | payer OTHER, SELFPAY ==
--- OUTSIDE RECORDS SUMMARY | 2025-02-09 09:45 | XMS_ITS | Encounter Summary ---
Author Organization [facility] Address [address] [place] [address] 7 [place] [address] Care Team Providers Care Squeezer Operator Name Role Phone Kim Gates MD Primary Care Provider [phone] Reason for Referral * Consultation (Routine) - Authorized Specialty Diagnoses / Procedures Referred By Linda winkler Referred To Contact Optometry Diagnoses Type 2 diabetes mellitus with chronic kidney disease, with long-term current use of insulin, unspecified CKD stage (HCC) Ignacio Engel MD [address] [place] [address] Phone: tel: fax: [facility] [place] [address] [place] [address] Phone: tel: fax: Referral ID Status Reason Start Date Expiration Date Visits Requested Visits Authorized [id number] Authorized Specialty Services Required 02/09/2026 1 1 Encounter Details Date Type Department Care Team (Latest Contact Info) Description 02/09/2025 9:45 AM EDT Telemedicine [facility] MED & PEDS [address] [place] [address] Ignacio Engel MD [address] [place] [address] Cirrhosis of liver without ascites, unspecified hepatic cirrhosis type (HCC) (Primary Dx); Normocytic anemia; Chronic heart failure with preserved ejection fraction (HFpEF) (HCC); Vascular dementia with behavior disturbance (CMS/HCC) (HCC); Pressure injury of right heel, unstageable (HCC); 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); Seizure disorder (CMS/HCC) (HCC); Malignant neoplasm of breast in female, estrogen receptor positive, unspecified laterality, unspecified site of breast (HCC); Type 2 diabetes mellitus with chronic kidney disease, with long-term current use of insulin, unspecified CKD stage (HCC); Acquired hypothyroidism; Benign essential hypertension; Mixed hyperlipidemia Social History Tobacco Use Types Packs/Day Years Used Date Smoking Tobacco: Never Passive Smoke Exposure: Never Smokeless Tobacco: Never Alcohol Use Standard Drinks/Week Comments Never 0 (1 standard drink = 0.6 oz pur e alcohol) Depression Answer Date Recorded Patient Health Questionnaire-9 Score 0 01/18/2025 Patient Health Questionnaire-9 Score 0 01/18/2025 Last PHQ-9: Questionnaire Data Not on file 1 Housing Stability Answer Date Recorded What is [...] t he electric, gas, oil or water [place] threatened to shut off services in your home? No 09/10/2023 Depression Answer Date Recorded Patient Health Questionnaire-2 Score 0 01/18/2025 Internet Access Answer Date Recorded Internet Access Q1 No 07/14/2024 Internet Access Q2 I do not want or need it 04/2024 Comments No Sex and Gender Information Value Date Recorded Sex Assigned at Female 02/12/2022 10:17 AM EDT Legal Sex Female 10:17 AM EDT Gender Identity Female 02/12/2022 10:17 AM EDT Sexual Orientation Choose not to disclose 2021 10:17 AM EDT documented as of this encounter Progress Notes * Ignacio Novak MD - 02/09/2025 9:45 AM EDT Subjective Patient ID: Delaney Novak is a 74 y.o. female who presents for No chief complaint on file.. HPI Patient was scheduled for a televisit for transfer patient appointment, previously under the care of Dr Gates Review of Systems Constitutional: Negative for chills, fatigue and fever. Respiratory: Negative for cough and shortness of breath. Cardiovascular: Negative for chest pain and palpitations. Objective Physical Exam Neurological: General: No focal deficit present. Mental Status: She is oriented to person, place, and time. Psychiatric: Mood and Affect: Mood normal. Behavior: Behavior normal. Assessment/Plan Problem List Items Addressed This Visit Type 2 diabetes mellitus with diabetic chronic kidney disease (HCC) On long acting insulin will increase dose to 15 units, no reported episode of hypoglycemia, renewedshort acting insulin as per scale, will refer for eye exam, Relevant Medications Lantus SoloStar 100 UNIT/ML pen insulin aspart (NovoLOG) 100 UNIT/ML pen Other Relevant Orders Lipid Panel, Standard Albumin, Random Urine W/Creatinine CBC auto differential Iron And Total Iron Binding Capacity Vitamin B12 (Cobalamin) and Folate Panel, Serum Referral to Optometry Pressure injury of right heel, unstageable (HCC) Benign essential hypertension Told to keep blood pressure log, continue losartan, follow up in 2-3 months Malignant neoplasm of female breast (CMS/HCC) (HCC) Left breast cancer 2006, recurrent 2008 with mastectomy on anastrazole Mixed hyperlipidemia Will order new labs for guidance of therapy Relevant Medications Lantus SoloStar 100 UNIT/ML pen insulin aspart (NovoLOG) 100 UNIT/ML pen Seizure disorder (CMS/HCC) (HCC) 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) No active suicidal/homicidal ideas, followed by psych Cirrhosis of liver without ascites, unspecified hepatic cirrhosis type (HCC) - Primary Relevant Medications docusate sodium (Colace) 100 MG capsule Chronic heart failure with preserved ejection fraction (HFpEF) (HCC) Vascular dementia with behavior disturbance (CMS/HCC) (HCC) Other Visit Diagnoses Normocytic anemia Relevant Medications docusate sodium (Colace) 100 MG capsule ferrous sulfate (Fe Tabs) 325 (65 Fe) MG EC tablet Acquired hypothyroidism Relevant Orders TSH W/Reflex to FT4 documented in this encounter Miscellaneous Notes * Assessment & Plan Note - Ignacio Novak MD - 02/09/2025 10:18 AM EDTAssociated Problem(s): 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) No active suicidal/homicidal ideas, followed by psych * Assessment & Plan Note - Ignacio Novak MD - 02/09/2025 10:18 AM EDTAssociated Problem(s): Type 2 diabetes mellitus with diabetic chronic kidney disease (HCC) On long acting insulin will increase dose to 15 units, no reported episode of hypoglycemia, renewedshort acting insulin as per scale, will refer for eye exam, * Assessment & Plan Note - Ignacio Novak MD - 02/09/2025 10:15 AM EDTAssociated Problem(s): Mixed hyperlipidemia Will order new labs for guidance of therapy * Assessment & Plan Note - Ignacio Novak MD - 02/09/2025 10:15 AM EDTAssociated Problem(s): Benign essential hypertension Told to keep blood pressure log, continue losartan, follow up in 2-3 months * Assessment & Plan Note - Ignacio Novak MD - 02/09/2025 10:07 AM EDTAssociated Problem(s): Malignant neoplasm of female breast (CMS/HCC) (HCC) Left breast cancer 2006, recurrent 2009 with mastectomy on anastrazole documented in this encounter Plan of Treatment Upcoming Encounters Date Type Department Care Team (Late st Contact Info) Description 03/18/2025 11:00 AM EST Medication Management [facility] MED & PEDS [address] [place] [address] Nataly Shetty PharmD [address] [place] [address] Scheduled Orders Name Type Priority Associated Diagnoses Orde r Schedule Lipid Panel, Standard Lab Routine Type 2 diabetes mellitus with chronic kidney disease, with long-term current use of insulin, unspecified CKD stage (HCC) Expected: 02/09/2025 (Approximate), Expires: 02/09/2026 Albumin, Random Urine W/Creatinine Lab Routine Type 2 diabetes mellitus with chronic kidney disease, with long-term current use of insulin, unspecified CKD stage (HCC) Expected: 02/09/2025 (Approximate), Expires: 02/09/2026 CBC auto differential Lab Routine Type 2 diabetes mellitus with chronic kidney disease, with long-term current use of insulin, unspecified CKD stage (HCC) Expected: 02/09/2025 (Approximate), Expires: 02/09/2026 Iron And Total Iron Binding Capacity Lab Routine Type 2 diabetes mellitus with chronic kidney disease, with long-term current use of insulin, unspecified CKD stage (HCC) Expected: 02/09/2025, Expires: 02/09/2026 Vitamin B12 (Cobalamin) and Folate Panel, Serum Lab Routine Type 2 diabetes mellitus with chronic kidney disease, with long-term current use of insulin, unspecified CKD stage (HCC) Expected: 02/09/2025 (Approximate), Expires: 02/09/2026 TSH W/Reflex to FT4 Lab Routine Acquired hypothyroidism Expected: 02/09/2025 (Approximate), Expires: 02/09/2026 Scheduled Referrals Name Type Priority Associated Diagnoses Orde r Schedule Referral to Optometry Outpatient Referral Routine Type 2 diabetes mellitus with chronic kidney disease, with long-term current use of insulin, unspecified CKD stage (HCC) Expected: 02/09/2025 (Approximate), Expires: 02/09/2026 documented as of this encounter Visit Diagnoses Diagnosis Cirrhosis of liver without ascites, unspecified hepatic cirrhosis type (HCC)- Primary Normocytic anemia Unspecified anemia Chronic heart failure with preserved ejection fraction (HFpEF) (HCC) Vascular dementia with behavior disturbance (CMS/HCC) (HCC) Pressure injury of right heel, unstageable (HCC) 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) Seizure disorder (CMS/HCC) (HCC) Unspecified epilepsy without mention of intractable epilepsy Malignant neoplasm of breast in female, estrogen receptor positive, unspecified laterality, unspecified site of breast (HCC) Type 2 diabetes mellitus with chronic kidney disease, with long-term current use of insulin, unspecified CKD stage (HCC) Acquired hypothyroidism Unspecified hypothyroidism Benign essential hypertension Essential hypertension, benign Mixed hyperlipidemia documented in this encounter Additional Health Concerns Assessment Noted Time PHQ-9 Depression Total Score: 0 01/19/20 25 9:17 AM EDT documented as of this encounter Care Teams Squeezer Operator Relationship Specialty Start Date End Date Kim Gates MD [address] [place] [address] PCP - General Family Medicine 03/18/12 02/10/25 documented as of this encounter
--- OUTSIDE RECORDS SUMMARY | 2025-02-11 12:36 | XMS_ITS | Encounter Summary ---
Author Organization [employer] [facility] Address [address] [place] [address] 7 [place] [address] Care Team Providers Care Cell Room Operator Name Role Phone Kim Gates MD Primary Care Provider [phone] Reason for Visit * Reason Comments Med Change Request Encounter Details Date Type Department Care Team ([facility] st Contact Info) Description 02/09/2025 Refill [facility] MED & PEDS [address] [place] [address] Ignacio Engel MD [address] [place] [address] Social History Tobacco Use Types Packs/Day Years [...] as of this encounter Plan of Treatment Upcoming Encounters Date Type Department Care Team (Late st Contact Info) Description 03/18/2025 11:00 AM EST Medication Management [facility] MED & PEDS [address] [place] [address] Nataly Shetty PharmD [address] [place] [address] documented as of this encounter Visit Diagnoses Not on filedocumented in this encounter Additional Health Concerns Assessment Noted Time PHQ-9 Depression Total Score: 0 01/19/20 25 9:17 AM EDT documented as of this encounter Care Teams Cell Room Operator Relationship Specialty Start Date End Date Kim Gates MD [address] [place] [address] PCP - General Family Medicine 03/18/12 02/10/25 documented as of this encounter
--- OUTSIDE RECORDS SUMMARY | 2025-02-11 12:36 | XMS_ITS | Encounter Summary ---
Author Organization [employer] Address [address] [place] [address] 7 [place] [address] Care Team Providers Care Soldering Machine Setter Name Role Phone Kim Gates MD Primary Care Provider [phone] Jac Boo CNP Primary Care Provider [phone] Reason for Visit * Reason Comments Med Refill Encounter Details Date Type Department Care Team ([facility] st Contact Info) Description 08/11/2024 Refill [facility] CHC MED & PEDS [address] [place], [place] [phone] Ignacio Engel MD [address] [place] [address] Social History Tobacco Use Types Packs/Day Years Used Date Smoking Tobacco: Never Passive Smoke Exposure: Never Smokeless Tobacco: Never Alcohol Use Standard Drinks/Week Comments Never 0 (1 standard drink = 0.6 oz pur e alcohol) Depression Answer Date Recorded Patient Health Questionnaire-9 Score 09/23/2023 Patient Health Questionnaire-9 Score 23 09/23/2023 Last PHQ-9: Questionnaire Data Not on [...] Recorded Patient Health Questionnaire-2 Score 6 09/23/2023 Internet Access Answer Date Recorded Internet Access [...] Upcoming Encounters Date Type Department Care Team ([facility] st Contact Info) Description 03/18/2025 11:00 AM EST Medication Management [facility] MED & PEDS [address] [place] [address] Nataly Shetty PharmD [address] [place] [address] documented as of this encounter Visit Diagnoses Not on filedocumented in this encounter Additional Health Concerns Assessment Noted Time PHQ-9 Depression Total Score: 23 024 9:53 AM EDT documented as of this encounter Care Teams Soldering Machine Setter Relationship Specialty Start Date End Date Kim Gates MD [address] [place] [address] PCP - General Family Medicine 03/18/12 02/10/25 Jac Boo CNP [address] [place] [address] PCP - General Family Medicine 02/11/25 [facility] 09/12/24 11/08/24 documented as of this encounter
--- OUTSIDE RECORDS SUMMARY | 2025-02-11 12:36 | XMS_ITS | Encounter Summary ---
Author Organization [employer] Address [address] [place] [address] 7 [place] [address] Care Team Providers Care Crop Duster Helper Name Role Phone Kim Gates MD Primary Care Provider Jac Boo CNP Primary Care Provider [phone] Encounter Details Date Type Department Care Team ([facility] st Contact Info) Description 11/20/2024 Orders Only [facility] CHC MED & PEDS [address] [place], [place] [phone] Dionne Haddad MD [address] [place], [place] [phone] Normocytic anemia (Primary Dx) Social History Tobacco Use Types Packs/Day Years Used Date Smoking Tobacco: Never Passive Smoke Exposure: Never Smokeless Tobacco: Never Alcohol Use Standard Drinks/Week Comments Never 0 (1 standard drink = 0.6 oz pur e alcohol) Depression Answer Date Recorded Patient Health Questionnaire-9 Score 23 09/23/2023 Patient Health Questionnaire-9 Score 23 09/23/2023 [...] Upcoming Encounters Date Type Department Care Team ([facility] st Contact Info) Description 03/18/2025 11:00 AM EST Medication Management [facility] CHC MED & PEDS [address] [place] [address] Nataly Shetty PharmD [address] [place] [address] Scheduled Orders Name Type Priority Associated Diagnoses Orde r Schedule CBC auto differential Lab Routine Normocytic anemia Expected: 11/20/2024 (Approximate), Expires: 11/20/2025 documented as of this encounter Visit Diagnoses Diagnosis Normocytic anemia- Primary Unspecified anemia documented in this encounter Additional Health Concerns Assessment Noted Time PHQ-9 Depression Total Score: 23 024 9:53 AM EDT documented as of this encounter Care Teams Crop Duster Helper Relationship Specialty Start Date End Date Kim Gates MD [address] [place] [address] PCP - General Family Medicine 03/18/12 02/10/25 Jac Boo CNP [address] [place] [address] PCP - General Family Medicine 02/11/25 documented as of this encounter
--- OUTSIDE RECORDS SUMMARY | 2025-02-11 12:36 | XMS_ITS | Clinical Summary ---
Author Organization [facility] Address [address] [facility] [address] [place] [address] Phone Care Team Providers Care Tool Grinder Operator External Name Role Phone Kim Gates MD Primary Care Provider [phone] Allergies Active Allergy Reactions Criticality Noted Date [...] PM EDT) Hemoglobin A1C 9.3(H) (4.0-5.6) % [facility] Comment: MONITORING: In known diabetic patients, hemoglobin A1c targets should be discussed with health care provider. DIAGNOSTIC USE: The [place] Diabetes Association (ADA) and the World Health [...] Supplement 1 Testing performed or reported by [facility], a Service of [facility], [address] [place] [id number] Victor Manuel Urbina MD, Historical Site Guide [facility]# [id number] Blood specimen (specimen) Venous blood / Unknown 12/05/2021 4:33 PM EDT 12/05/2021 4:39 PM EDT Benjy Alaniz MD LAB BLOOD ORDERABLES Final Re sult [facility] from Last 3 Months or Most Recently Relevant to Health Maintenance Insurance Medicare Medicaid [place] Medicare Medicaid [place] Care Teams Tool Grinder Operator External Relationship Specialty Start Date End Date Kim Gates MD [address] [place] [address] PCP - General Family Medicine 03/16/21
--- OUTSIDE RECORDS SUMMARY | 2025-02-11 12:36 | XMS_ITS | Encounter Summary ---
Author Organization [employer] Address [address] [place] [address] 7t [place] [address] Care Team Providers Care Zyglo Technician Name Role Phone Kim Gates MD Primary Care Provider [phone] Jac Boo CNP Primary Care Provider [phone] Encounter Details Date Type Department Care Team (Late st Contact Info) Description 03/16/2024 Orders Only [facility] [address] [place], [place] [phone] Provider, MD Walter Social History Tobacco Use Types Packs/Day Years [...] Description 03/18/2025 11:00 AM EST Medication Management [facility] MED & PEDS [address] [place] [address] Nataly Shetty PharmD [address] [place] [address] documented as of this encounter Procedures Procedure Name Priority Date/Time Associated Diagnosis Comments HM COLONOSCOPY Routine 03/15/2024 1:35 PM EST documented in this encounter Results * Hm Colonoscopy (03/15/2024 1:35 PM EST) Historical Provider HEALTH MAINTENANCE Final Result documented in this encounter Visit Diagnoses Not on filedocumented in this encounter Additional Health Concerns Assessment Noted Time PHQ-9 Depression Total Score: 23 024 9:53 AM EDT documented as of this encounter Care Teams Zyglo Technician Relationship Specialty Start Date End Date Kim Gates MD [address] [place] [address] PCP - General Family Medicine 03/18/12 02/10/25 Jac Boo CNP [address] [place] [address] PCP - General Family Medicine 02/11/25 [facility] 09/12/24 11/08/24 documented as of this encounter
--- OUTSIDE RECORDS SUMMARY | 2025-02-11 12:36 | XMS_ITS | Encounter Summary ---
Author Organization [employer] Address [address] [place] [address] 7t [place] [address] Care Team Providers Care Emergency Communications Dispatcher Name Role Phone Kim Gates MD Primary Care Provider [phone] Jac Boo CNP Primary Care Provider [phone] Reason for Visit * Reason Comments Med Refill Encounter Details Date Type Department Care Team ([facility] st Contact Info) Description 08/10/2024 Refill C [facility] MED & PEDS [address] [place] [address] Kim Gates MD [address] [place] [address] Social History Tobacco Use Types Packs/Day Years [...] Upcoming Encounters Date Type Department Care Team ([facility] st Contact Info) Description 03/18/2025 11:00 AM EST Medication Management [facility] CHC MED & PEDS [address] [place] [address] Nataly Shetty PharmD [address] [place] [address] documented as of this encounter Visit Diagnoses Not on filedocumented in this encounter Additional Health Concerns Assessment Noted Time PHQ-9 Depression Total Score: 23 024 9:53 AM EDT documented as of this encounter Care Teams Emergency Communications Dispatcher Relationship Specialty Start Date End Date Kim Gates MD [address] [place] [address] PCP - General Family Medicine 03/18/12 02/10/25 Jac Boo CNP [address] [place] [address] PCP - General Family Medicine 02/11/25 [facility] 09/12/24 11/08/24 documented as of this encounter
--- OUTSIDE RECORDS SUMMARY | 2025-02-11 12:36 | XMS_ITS | Encounter Summary ---
Author Organization [employer] Address [address] [place] [address] 7t [place] [address] Care Team Providers Care Bioinformatics Scientist Name Role Phone Kim Gates MD Primary Care Provider [phone] Jac Boo CNP Primary Care Provider [phone] Reason for Visit * Reason Onset Date Comments Medication Question 01/15/2024 FYI 01/15/2024 Encounter Details Date Type Department Care Team (Late st Contact Info) Description 01/15/[address] [facility] MEDICINE [address] [place], [place] [phone] Kim Gates MD [address] [place], [place] [phone] Medication Question; Social History Tobacco Use Types Packs/Day Years [...] AM EDT documented as of this encounter Miscellaneous Notes * Telephone Encounter - Sarah Levy RN - 01/16/2024 9:56 AM EDT JINGI/ TC to Britney at [facility]. 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 Pt had a fall in the hospital, sustained right shoulder fracture, arm is in sling. Britney cannot see any orders for ortho follow up. Pt also was sent home with Meek catheter, had been on antibiotics for UTI. Britney states pt had been receiving Lidocaine patches in hospital, no script for patches givenat discharge . Pt has hospital discharge follow up 01/[address] Haddad. * Telephone Encounter - Abhilash Recio - 01/15/2024 3:27 PM EDT Tc from Britney with [facility] calling to inform pcp that [place] has been [place].Britney also stated that pt fell in the hospital but she wasn't sent home with any lidocaine patches and so she is requesting pcp to have a prescription sent. If any questions you can contact Britney at [phone]. documented in this encounter Plan of Treatment Upcoming Encounters Date Type Department Care Team (Late st Contact Info) Description 03/18/2025 11:00 AM EST Medication Management [facility] MED & PEDS [address] [place] [address] Nataly Shetty PharmD [address] [place] [address] documented as of this encounter Visit Diagnoses Not on filedocumented in this encounter Additional Health Concerns Assessment Noted Time PHQ-9 Depression Total Score: 23 024 9:53 AM EDT documented as of this encounter Care Teams Bioinformatics Scientist Relationship Specialty Start Date End Date Kim Gates MD [address] [place] [address] PCP - General Family Medicine 03/18/12 02/10/25 Jac Boo CNP [address] [place] [address] PCP - General Family Medicine 02/11/25 Josy JOHNSON 09/12/24 11/08/24 documented as of this encounter
--- OUTSIDE RECORDS SUMMARY | 2025-02-11 12:36 | XMS_ITS | Encounter Summary ---
Author Organization [employer] Address [address] [place] [address] 7 [place] [address] Care Team Providers Care Letter Carrier Name Role Phone Kim Gates MD Primary Care Provider [phone] Jac oBo CNP Primary Care Provider [phone] Reason for Visit * Reason Comments Med Refill Encounter Details Date Type Department Care Team ([facility] st Contact Info) Description 11/27/2024 Refill C [facility] MED [facility] PEDS [address] [place], [place] [phone] Amie Garner MD [address] [place] [address] Social History Tobacco Use Types Packs/Day Years [...] Upcoming Encounters Date Type Department Care Team ([facility] st Contact Info) Description 03/18/2025 11:00 AM EST Medication Management [facility] CHC MED & PEDS [address] [place] [address] Nataly Shetty PharmD [address] [place] [address] documented as of this encounter Visit Diagnoses Not on filedocumented in this encounter Additional Health Concerns Assessment Noted Time PHQ-9 Depression Total Score: 23 024 9:53 AM EDT documented as of this encounter Care Teams Letter Carrier Relationship Specialty Start Date End Date Kim Gates MD [address] [place] [address] PCP - General Family Medicine 03/18/12 02/10/25 Jac Boo CNP [address] [place] [address] PCP - General Family Medicine 02/11/25 documented as of this encounter
--- OUTSIDE RECORDS SUMMARY | 2025-02-11 12:36 | XMS_ITS | Encounter Summary ---
Author Organization [employer] Address [address] [facility] 7t [place] [address] Care Team Providers Care Junior Underwriter Name Role Phone Kim Gates MD Primary Care Provider [phone] Reason for Visit * Reason Onset Date Comments Chart Prep 02/06/2025 Encounter Details Date Type Department Care Team ([facility] st Contact Info) Description 02/06/2025 Telephone [facility] [address] [place] [address] Kim Gates MD [address] [facility] [place] [address] Chart Prep Social History Tobacco Use Types Packs/Day Years [...] encounter Miscellaneous Notes * Telephone Encounter - Vanessa Recio MA - 02/06/2025 9:59 AM EDT Chart Prep Labs: not done Images: pt declined appt Referrals: complete Vaccines due: Covid, Flu, Hep B, MCV4, RSV, and Zoster Screenings: eye exam Overdue care gaps: Glucose, Oral health screening, and Tobacco documented in this encounter Plan of Treatment Upcoming Encounters Date Type Department Care Team (Late st Contact Info) Description 03/18/2025 11:00 AM EST Medication Management [facility] [address] [place] [address] Nataly Shetty, PharmD [address] [place] [address] documented as of this encounter Visit Diagnoses Not on filedocumented in this encounter Additional Health Concerns Assessment Noted Time PHQ-9 Depression Total Score: 0 01/19/20 9:17 AM EDT documented as of this encounter Care Teams Junior Underwriter Relationship Specialty Start Date End Date Kim Gates MD [address] [place] [address] PCP - General Family Medicine 03/18/12 02/10/25 documented as of this encounter
--- OUTSIDE RECORDS SUMMARY | 2025-02-11 12:36 | XMS_ITS | Encounter Summary ---
Author Organization [employer] Address [address] [facility] 7t [place] [address] Care Team Providers Care Wood Grinder Operator Name Role Phone Jac Boo PAULETTE Primary Care Provider [phone] Encounter Details Date Type Department Care Team (Latest Contact Info) Description 02/11/2025 Travel Social History Tobacco Use Types Packs/Day Years [...] 11:00 AM EST Medication Management [facility] [address] [place] [address] Nataly Shetty, PharmD 230 [place] [address] documented as of this encounter Visit Diagnoses Not on filedocumented in this encounter Additional Health Concerns Assessment Noted Time PHQ-9 Depression Total Score: 0 01/19/20 25 9:17 AM EDT documented as of this encounter Care Teams Wood Grinder Operator Relationship Specialty Start Date End Date Jac Boo CNP [address] [place] [address] PCP - General Family Medicine 02/11/25 documented as of this encounter
--- OUTSIDE RECORDS SUMMARY | 2025-02-11 12:36 | XMS_ITS | Encounter Summary ---
Author Organization [employer] Address [address] [facility] 7t [place] [address] Care Team Providers Care Circuit Board Assembler Name Role Phone Kim Gates MD Primary Care Provider [phone] Encounter Details Date Type Department Care Team (Latest Contact Info) Description 02/09/2025 Travel Social History Tobacco Use Types Packs/Day [...] 11:00 AM EST Medication Management [facility] [address] [place] [address] Nataly Shetty PharmD [address] [place] [address] documented as of this encounter Visit Diagnoses Not on filedocumented in this encounter Additional Health Concerns Assessment Noted Time PHQ-9 Depression Total Score: 0 01/19/20 25 9:17 AM EDT documented as of this encounter Care Teams Circuit Board Assembler Relationship Specialty Start Date End Date Kim Gates MD [address] [place] [address] PCP - General Family Medicine 03/18/12 02/10/25 documented as of this encounter
--- OUTSIDE RECORDS SUMMARY | 2025-02-11 12:36 | XMS_ITS | Encounter Summary ---
Author Organization [employer] Address [address] [place] [address] 7 [place] [address] Care Team Providers Care Tester Waste Disposal Leakage Name Role Phone Kim Gates MD Primary Care Provider [phone] Jac Boo CNP Primary Care Provider [phone] Reason for Visit * Reason Comments Med Refill Encounter Details Date Type Department Care Team ([facility] st Contact Info) Description 08/10/2024 Refill [facility] [address] [place], [place] [phone] Ignacio Engel MD 505 [place] [address] Social History Tobacco Use Types Packs/Day Years [...] Upcoming Encounters Date Type Department Care Team ([facility] st Contact Info) Description 03/18/2025 11:00 AM EST Medication Management [facility] [address] [place] [address] Nataly Shetty PharmD [address] [place] [address] documented as of this encounter Visit Diagnoses Not on filedocumented in this encounter Additional Health Concerns Assessment Noted Time PHQ-9 Depression Total Score: 23 024 9:53 AM EDT documented as of this encounter Care Teams Tester Waste Disposal Leakage Relationship Specialty Start Date End Date Kim Gates MD [address] [place] [address] PCP - General Family Medicine 03/18/12 02/10/25 Jac Boo CNP [address] [place] [address] PCP - General Family Medicine 02/11/25 [facility] 09/12/24 11/08/24 documented as of this encounter
--- OUTSIDE RECORDS SUMMARY | 2025-02-11 12:36 | XMS_ITS | Encounter Summary ---
Author Organization [employer] Address [address] [place] [address] 7 [place] [address] Care Team Providers Care Egg Factory Worker Name Role Phone Kim Gates MD Primary Care Provider [phone] Jac Boo CNP Primary Care Provider [phone] Encounter Details Date Type Department Care Team (Late st Contact Info) Description 05/03/2022 Telephone [facility] [address] [place], [place] [phone] Kim Gates MD [address] [place], [place] [phone] Social History Tobacco Use Types Packs/Day Years [...] Description 03/18/2025 11:00 AM EST Medication Management [facility] [address] [place], [place] [phone] Nataly Shetty PharmD 230 [place] [address] documented as of this encounter Visit Diagnoses Not on filedocumented in this encounter Care Teams Egg Factory Worker Relationship Specialty Start Date End Date Kim Gates MD [address] [place] [address] PCP - General Family Medicine 03/18/12 02/10/25 Jac Boo CNP [address] [place] [address] DAKOTAH SWANSON [address] PCP - General Family Medicine 02/11/25 Josy BARNESA 09/12/24 11/08/24 documented as of this encounter
--- OUTSIDE RECORDS SUMMARY | 2025-02-11 12:36 | XMS_ITS | Encounter Summary ---
Author Organization [employer] Address [address] [place] [address] 7t [place] [address] Care Team Providers Care Active Directory Engineer Name Role Phone Kim Gates MD Primary Care Provider [phone] Jac Boo CNP Primary Care Provider [phone] Reason for Visit * Reason Comments Med Refill Encounter Details Date Type Department Care Team ([facility] st Contact Info) Description 08/11/2024 Refill [facility] [address] [place] [address] Kim Gates MD [address] [place] [address] Social History Tobacco Use Types Packs/Day Years [...] Upcoming Encounters Date Type Department Care Team ([facility] st Contact Info) Description 03/18/2025 11:00 AM EST Medication Management [facility] [address] [place] [address] Nataly Shetty PharmD [address] [place] [address] documented as of this encounter Visit Diagnoses Not on filedocumented in this encounter Additional Health Concerns Assessment Noted Time PHQ-9 Depression Total Score: 23 024 9:53 AM EDT documented as of this encounter Care Teams Active Directory Engineer Relationship Specialty Start Date End Date Kim Gates MD 230 [place] [address] PCP - General Family Medicine 03/18/12 02/10/25 Jac Boo CNP 505 [place] [address] PCP - General Family Medicine 02/11/25 [facility] 09/12/24 11/08/24 documented as of this encounter
--- OUTSIDE RECORDS SUMMARY | 2025-02-11 12:36 | XMS_ITS | Encounter Summary ---
Author Organization [employer] Address [address] [facility] 7t [place] [address] Care Team Providers Care Craft Manager Name Role Phone Kim Gates MD Primary Care Provider [phone] Jac Boo CNP Primary Care Provider [phone] Encounter Details Date Type Department Care Team (Late st Contact Info) Description 04/01/2024 Orders Only [facility] [address] DAKOTAH Hodge [id number] ProviderWalter MD Social History Tobacco Use Types [facility] [address] [place], [place] [phone] Nataly Shetty PharmD [address] [place] [address] documented as of this encounter Procedures Procedure Name Priority Date/Time Associated Diagnosis Comments SURGICAL PATHOLOGY Routine 03/15/2024 11:17 AM EST documented in this encounter Results * Surgical Pathology (03/15/2024 11:17 AM EST) Historical Provider LAB PATHOLOGY ORDERABLES Final Result documented in this encounter Visit Diagnoses Not on filedocumented in this encounter Additional Health Concerns Assessment Noted Time PHQ-9 Depression Total Score: 23 024 9:53 AM EDT documented as of this encounter Care Teams Craft Manager Relationship Specialty Start Date End Date Kim Gates MD [address] [place] [address] PCP - General Family Medicine 03/18/12 02/10/25 Jac Boo CNP [address] [place] [address] PCP - General Family Medicine 02/11/25 [facility] 09/12/24 11/08/24 documented as of this encounter
--- OUTSIDE RECORDS SUMMARY | 2025-02-11 12:37 | XMS_ITS | Encounter Summary ---
Author Organization [employer] Address [address] [place] [address] Care Team Providers Care Computer Lab Aide Name Role Phone Kim Gates MD Primary Care Provider [phone] Encounter Details Date Type Department Care Team (Late st Contact Info) Description 10/02/2024 Lab Requisition [facility] [address] [facility] [place] [address] Petrona Cervantes MD [address] [place] [address] Anemia, unspecified Social History Tobacco Use Types Packs/Day Years Used Date Smoking Tobacco: Never Assessed Comments Unknown Sex and Gender Information Value Date Recorded Sex Assigned at Not on file Legal Sex Female 2:59 AM EST Gender Identity Not on file Sexual Orientation Not on file documented as of this encounter Plan of Treatment Not on file documented as of this encounter Visit Diagnoses Diagnosis Anemia, unspecified documented in this encounter Care Teams Computer Lab Aide Relationship Specialty Start Date End Date Kim Gates MD [address] [place] [address] PCP - General 09/05/23 documented as of this encounter
--- OUTSIDE RECORDS SUMMARY | 2025-02-11 12:37 | XMS_ITS | Encounter Summary ---
Author Organization [employer] Address [address] [place] [address] 7t [place] [address] Care Team Providers Care Multiple Knife Edge Trimmer Operator Name Role Phone Kim Gates MD Primary Care Provider [phone] Jac Boo CNP Primary Care Provider [phone] Reason for Visit * Reason Onset Date Comments Verbal Orders 07/26/2023 Encounter Details Date Type Department Care Team ([facility] st Contact Info) Description 07/26/2023 Telephone [facility] [address] [place] [address] Kim Gates MD [address] [place], [place] [phone] Verbal Orders Social History Tobacco Use Types Packs/Day Years Used Date Smoking Tobacco: Never Smokeless Tobacco: Never Alcohol Use Standard Drinks/Week Comments Never 0 (1 standard drink = 0.6 oz pur e alcohol) Depression Answer Date Recorded Patient Health Questionnaire-9 Score 23 04/04/2023 Patient Health Questionnaire-9 Score 23 04/04/2023 Last PHQ-9: Questionnaire Data Not on file 1 06/05/2022 Housing Stability Answer Date Recorded What is your housing situation today? I have emma dempsey 01/29/[address] you li ve. Do you have problems with any of the following? None of the above 01/29/2023 Food Insecurity Answer Date Recorded Within the past 12 months, y ou worried that your food would run out before you got money to buy more: Never True 01/29/2023 Within the past 12 months,th e food you bought just didn't last and you didn't have enough money to get more: Never True Transportation Answer Date Recorded In the past 12 months, has l ack of transportation kept you from medical appts, meetings, work or from getting things needed for daily living? No 01/29/2023 Utilities Answer Date Recorded In the past 12 months, has t he electric, gas, oil or water company threatened to shut off services in your home? No 01/29/2023 Depression Answer Date Recorded Patient Health Questionnaire-2 Score 6 04/04/2023 Comments No Sex and Gender Information Value Date Recorded Sex Assigned at Female 02/12/2022 10:17 AM EDT Legal Sex Female 10:17 AM EDT Gender Identity Female 02/12/2022 10:17 AM EDT Sexual Orientation Choose not to disclose 2021 10:17 AM EDT documented as of this encounter Miscellaneous Notes * Telephone Encounter - Kim Gates MD - 07/30/2023 12:01 PM EDT Ok * Telephone Encounter - Tammy Allen RN - 07/30/2023 11:19 AM EDT TC to [facility]- gave verbal orders to start shelter for pt. She will be admitted tomorrow according to [facility]. FYI to PCP * Telephone Encounter - Carla Dinero - 07/26/2023 1:33 PM EDT Tc from [facility] calling in regards to message above. Pt will be discharged today. Please contact [facility] at [phone] * Telephone Encounter - Rehana Fragoso - 07/26/2023 10:29 AM EDT Tc from [facility] with [facility] requesting verbal orders for skill nursing, please contact [facility] at [phone] If [facility] doesn't answer please leave a detailed message, line is secure. documented in this encounter Plan of Treatment Upcoming Encounters Date Type Department Care Team (Late st Contact Info) Description 03/18/2025 11:00 AM EST Medication Management [facility] [address] [place] [address] Nataly Shetty PharmD [address] [place] [address] documented as of this encounter Visit Diagnoses Not on filedocumented in this encounter Additional Health Concerns Assessment Noted Time PHQ-9 Depression Total Score: 23 023 11:02 AM EST documented as of this encounter Care Teams Multiple Knife Edge Trimmer Operator Relationship Specialty Start Date End Date Kim Gates MD [address] [place] [address] PCP - General Family Medicine 03/18/12 02/10/25 Jac Boo CNP [address] [place] [address] PCP - General Family Medicine 02/11/25 [facility] 09/12/24 11/08/24 documented as of this encounter
--- OUTSIDE RECORDS SUMMARY | 2025-02-11 12:37 | XMS_ITS | Encounter Summary ---
Author Organization [employer] Address [address] [place] [address] [address] [place] [address] Care Team Providers Care Contractor [employer] Name Role Phone Kim Gates MD Primary Care Provider [phone] Jac Boo CNP Primary Care Provider [phone] Encounter Details Date Type Department Care Team (Late st Contact Info) Description 11/15/2023 Orders Only [facility] [address], [place] [id number] Provider, MD Walter Social History Tobacco Use [...] as of this encounter Miscellaneous Notes * Result Encounter Note - Yoli Rodriguez MD - 11/15/2023 1:59 PM EDT Covering PAQ Please can you confirm is following w a neurologist ,Please if she does can you make sure to fax this CT scan result to neurologist office -thanks * Result Encounter Note - Yoli Rodriguez MD - 11/15/2023 1:59 PM EDT PAQ covering Please call patient to advise to come to already scheduled apt with provider for next week ,had recently an abnormal CXR in ED and will need f up Thanks documented in this encounter Plan of Treatment Upcoming Encounters Date Type Department Care Team (Late st Contact Info) Description 03/18/2025 11:00 AM EST Medication Management [facility] [address] [place] [address] Nataly Shetty, PharmD [address] [place] [address] documented as of this encounter Procedures Procedure Name Priority Date/Time Associated Diagnosis Comments XR KUB AND UPRIGHT 2 VIEWS Routine 01/08/2024 11:50 AM EDT XR KUB AND UPRIGHT 2 VIEWS Routine 01/05/2024 4:50 AM EDT XR SHOULDER 2+ VIEWS RIGHT Routine 01/01/2024 9:[address] HEAD WO CONTRAST Routine 12/10/2023 9 :[address] HEAD WO CONTRAST Routine 12/03/2023 1 :17 PM EDT XR CHEST 1 VIEW Routine 12/03/2023 12:20 PM EDT EGD Routine 11/14/2023 1:59 PM EDT documented in this encounter Results * XR KUB and Upright 2 Views (01/08/2024 11:50 AM EDT) Anatomical Region Laterality Modality Radiographic Kathleen ging 01/08/2024 11:5 0 AM EDT Narrative 01/08/2024 8:01 PM EDT [place] [address] XRay Report Signed Patient: Delaney Zhou MR#: M [id number] : 1950 Acct:[id number] Age/Sex: 73 / F ADM Date: 12/02/23 Loc: HO.[facility]I 180-[address]: Zander Yung MD Ordering Physician: Zander Yung MD Date of Service: 01/08/24 Procedure(s): XR KUB Accession Number(s): [id number] cc: Zander Yung MD; Kim Gates MD EXAMINATION: XR ABDOMEN KUB CLINICAL INDICATION: Rule out obstruction in patient with shoulder fracture COMPARISON: None available. TECHNIQUE: AP view of the abdomen. FINDINGS: The bowel gas pattern is normal with no evidence of ileus or obstruction. Moderate stool seen in the colon. No unusual soft tissue calcifications are noted. Degenerative changes are seen in the visualized spine. XR/XR KUB IMPRESSION: No evidence of bowel obstruction. Moderate stool burden. Electronically signed by: John Purdy MD 01/08/2024 07:58 PM EDT Dictated By: John Purdy MD Signed By: <Electronically signed by John Purdy MD in OV> 01/08/241957 DD/ 49 TD/TT: 01/08/241154 Physical Therapist Assistant: YOSI Procedure Note Donotuseinterpreter, Image - 01/08/2024 [place] [address] XRay Report Signed Patient: Delaney Zhou AMR#: M [id number] : 9Acct:[id number] Age/Sex: 73 / FADM Date: 12/02/23 [facility]: Zander Yung MD Ordering Physician: Zander Yung MD Date of Service: 01/08/24 Procedure(s): XR KUB Accession Number(s): [id number] cc: Zander Yung MD; Kim Gates MD EXAMINATION: XR ABDOMEN KUB CLINICAL INDICATION: Rule out obstruction in patient with shoulder fracture COMPARISON: None available. TECHNIQUE: AP view of the abdomen. FINDINGS: The bowel gas pattern is normal with no evidence of ileus or obstruction. Moderate stool seen in the colon. No unusual soft tissue calcifications are noted. Degenerative changes are seen in the visualized spine. XR/XR KUB IMPRESSION: No evidence of bowel obstruction. Moderate stool burden. Electronically signed by: John Purdy MD 01/08/2024 07:58 PM EDT Dictated By: John Purdy MD Signed By: <Electronically signed by John Purdy MD in OV> 01/08/241957 DD/ 49 TD/TT: 01/08/241154 Physical Therapist Assistant: YOSI [facility] External Provider IMG XR PROCEDURES Edited Result - Final * XR KUB and Upright 2 Views (01/05/2024 4:50 AM EDT) Anatomical Region Laterality Modality Radiographic Kathleen ging 01/05/2024 4:50 AM EDT Narrative 01/05/2024 5:13 PM EDT [address] [address] XRay Report Signed Patient: Delaney Zhou MR#: M [id number] : 1950 Acct:[id number] Age/Sex: 73 / F ADM Date: 12/02/23 Loc: HOJARED 180-[address]: Zander Yung MD Ordering Physician: Tatiana Mcclelland MD Date of Service: 01/05/24 Procedure(s): XR KUB Accession Number(s): [id number] cc: Tatiana Mcclelland MD; Kim Gates MD EXAMINATION: XR ABDOMEN KUB CLINICAL INDICATION: Constipation. COMPARISON: None available. TECHNIQUE: Portable AP view of the abdomen. FINDINGS: Mild elevation of the right hemidiaphragm. Limited evaluation of the lung bases. Cannot confirm or exclude left basilar focal infiltrate. Mild to moderate stool throughout the colon and rectal vault. No evidence of intestinal obstruction or free air. No soft tissue mass or organomegaly identified. No unusual soft tissue calcifications are noted. Mild degenerative changes of the spine and hips. Vascular calcification. Surgical clips project over the left upper quadrant/left lung base. XR/XR KUB IMPRESSION: Findings as above. Electronically signed by: Rakesh Garcia MD 01/05/2024 05:10 PM EDT Dictated By: Rakesh Garcia Signed By: <Electronically signed by Rakesh Garcia in OV> 01/05/24 1710 DD/ 0450 TD/TT: 01/05/24 1456 Physical Therapist Assistant: Procedure Note Donotuseinterpreter, Image - 01/05/[address] [address] XRay Report Signed Patient: Delaney Zhou AMR#: M [id number] : 1950cct:[id number] Age/Sex: 73 / FADM Date: 12/02/23 Loc: VIVIANA Lui-[address]: Zander Yung MD Ordering Physician: Tatiana Mcclelland MD Date of Service: 01/05/24 Procedure(s): XR KUB Accession Number(s): [id number] cc: Tatiana Mcclelland MD; Kim Gates MD EXAMINATION: XR ABDOMEN KUB CLINICAL INDICATION: Constipation. COMPARISON: None available. TECHNIQUE: Portable AP view of the abdomen. FINDINGS: Mild elevation of the right hemidiaphragm. Limited evaluation of the lung bases. Cannot confirm or exclude left basilar focal infiltrate. Mild to moderate stool throughout the colon and rectal vault. No evidence of intestinal obstruction or free air. No soft tissue mass or organomegaly identified. No unusual soft tissue calcifications are noted. Mild degenerative changes of the spine and hips. Vascular calcification. Surgical clips project over the left upper quadrant/left lung base. XR/XR KUB IMPRESSION: Findings as above. Electronically signed by: Rakesh Garcia MD 01/05/2024 05:10 PM EDT Dictated By: Rakesh Garcia Signed By: <Electronically signed by Rakesh Garcia in OV> 01/05/24 1710 DD/ 0450 TD/TT: 01/05/24 1456 Physical Therapist Assistant: [facility] External Provider IMG XR PROCEDURES Final Result * XR Shoulder 2+ Views Right (01/01/2024 9:08 AM EDT) Anatomical Region Laterality Modality Upper Extremities, Shoulder Right Radi ographic Imaging 01/01/2024 9:08 AM EDT Narrative 01/01/2024 10:28 AM EDT [address] [address] XRay Report Signed Patient: Delaney Zhou MR#: M [id number] : 1950 Acct:[id number] Age/Sex: 73 / F ADM Date: 12/02/23 Loc: HO.[facility] 180-[address]: Zander Yung MD Ordering Physician: Zander Yung MD Date of Service: 01/01/24 Procedure(s): XR shoulder RT min 2V Accession Number(s): [id number] cc: Zander Yung MD; Kim Gates MD EXAMINATION: XR SHOULDER, RIGHT CLINICAL INFORMATION: Pain, rule out fracture COMPARISON: None available. TECHNIQUE: AP external rotation, Grashey, scapular Y, and axillary views of the right shoulder. FINDINGS: There is impacted, angulated fracture through the surgical neck of right shoulder weakness intact glenohumeral joint acromioclavicular clavicular joint is unremarkable. XR/XR shoulder RT min 2V IMPRESSION: Comminuted fracture of the right shoulder Electronically signed by: Sean Kirkpatrick MD 01/01/2024 10:25 AM EDT RP Dictated By: Sean Kirkpatrick MD Signed By: <Electronically signed by Sean Kirkpatrick MD in OV> 01/01/24 1025 DD/ 0908 TD/TT: 01/01/24 09 Physical Therapist Assistant: Procedure Note Donotuseinterpreter, Image - 01/01/[address] [address] XRay Report Signed Patient: Delaney Zhou AMR#: M [id number] : 9Acct:[id number] Age/Sex: 73 / FADM Date: 12/02/23 Loc: HO.[facility] 180-[address]: Zander Yung MD Ordering Physician: Zander Yung MD Date of Service: 01/01/24 Procedure(s): XR shoulder RT min 2V Accession Number(s): [id number] cc: Zander Yung MD; Kim Gates MD EXAMINATION: XR SHOULDER, RIGHT CLINICAL INFORMATION: Pain, rule out fracture COMPARISON: None available. TECHNIQUE: AP external rotation, Grashey, scapular Y, and axillary views of the right shoulder. FINDINGS: There is impacted, angulated fracture through the surgical neck of right shoulder weakness intact glenohumeral joint acromioclavicular clavicular joint is unremarkable. XR/XR shoulder RT min 2V IMPRESSION: Comminuted fracture of the right shoulder Electronically signed by: Sean Kirkpatrick MD 01/01/2024 10:25 AM EDT Dictated By: Sean Kirkpatrick MD Signed By: <Electronically signed by Sean Kirkpatrick MD in OV> 01/01/24 1025 DD/ 0908 TD/TT: 01/01/24 09 Physical Therapist Assistant: [facility] External Provider IMG XR PROCEDURES Final Result * CT Head w/o Contrast (12/10/2023 9:05 PM EDT) Anatomical Region Laterality Modality Head, Neck Computed Tomogra phy 12/10/2023 9:05 PM EDT Narrative 12/10/2023 10:10 PM EDT [place] [address] [address] Scan Report Signed Patient: Delaney Zhou MR#: M [id number] : 1950 Acct:[id number] Age/Sex: 73 / F ADM Date: 12/02/23 Loc: HO.[facility]I 176-[address]: Zander Yung MD Ordering Physician: Estella Byrd Date of Service: 12/10/23 Procedure(s): CT head/brain wo IV con Accession Number(s): [id number] cc: Estella Byrd; Kim Gates MD EXAMINATION: CT HEAD WITHOUT IV CONTRAST CLINICAL INFORMATION: pupils fixed and non reactive COMPARISON: CT head without contrast 12/03/2023 TECHNIQUE: Contiguous axial imaging was performed from the skull base to vertex without intravenous contrast. Sagittal and coronal reformatted images were obtained. This CT examination was performed using dose optimization techniques as appropriate, variously including the following: * Automated exposure control * Adjustment of mA and/or kV according to patient size (this includes techniques or standardized protocols for targeted exams where dose is matched to indication/reason for exam; i.e. extremities or head) Use of iterative reconstruction technique DLP: 586 mGy-cm FINDINGS: No acute osseous or soft tissue abnormality. The mastoids are clear. Mild right sphenoid sinus mucosal thickening. There is no evidence of acute intracranial hemorrhage or territorial infarction. No abnormal mass effect or midline shift is seen. Fam to white matter differentiation is well preserved. No extra-axial fluid collections are identified. No hydrocephalus. Proportional prominence of the ventricles and sulcal spaces related to volume loss. Patchy periventricular and deep white matter hypoattenuation is consistent with moderate small vessel ischemic changes. Chronic lacunar infarcts involving the deep fam nuclei. No new parenchymal hypodensity. CT/CT head/brain wo IV con IMPRESSION: No acute intracranial abnormality including hemorrhage, mass effect, hydrocephalus, or acute territorial edematous infarction. Electronically signed by: Juan Alberto Murdock MD 12/10/2023 10:07 PM EDT RP Dictated By: Juan Alberto Murdock Signed By: <Electronically signed by Juan Alberto Murdock in OV> 12/10/232206 DD/ 04 TD/TT: 12/10/232135 Physical Therapist Assistant: Procedure Note Donotuseinterpreter, Image - 12/10/[address] [place] [address] [address] Scan Report Signed Patient: Delaney Zhou AMR#: M [id number] : 9Acct:[id number] Age/Sex: 73 / FADM Date: 12/02/23 Loc: HO.[facility]I 176-[address]: Zander Yung MD Ordering Physician: Estella Byrd Date of Service: 12/10/23 Procedure(s): CT head/brain wo IV con Accession Number(s): [id number] cc: Estella Byrd; Kim Gates MD EXAMINATION: CT HEAD WITHOUT IV CONTRAST CLINICAL INFORMATION: pupils fixed and non reactive COMPARISON: CT head without contrast 12/03/2023 TECHNIQUE: Contiguous axial imaging was performed from the skull base to vertex without intravenous contrast. Sagittal and coronal reformatted images were obtained. This CT examination was performed using dose optimization techniques as appropriate, variously including the following: * Automated exposure control * Adjustment of mA and/or kV according to patient size (this includes techniques or standardized protocols for targeted exams where dose is matched to indication/reason for exam; i.e. extremities or head) Use of iterative reconstruction technique DLP: 586 mGy-cm FINDINGS: No acute osseous or soft tissue abnormality. The mastoids are clear. Mild right sphenoid sinus mucosal thickening. There is no evidence of acute intracranial hemorrhage or territorial infarction. No abnormal mass effect or midline shift is seen. Fam to white matter differentiation is well preserved. No extra-axial fluid collections are identified. No hydrocephalus. Proportional prominence of the ventricles and sulcal spaces related to volume loss. Patchy periventricular and deep white matter hypoattenuation is consistent with moderate small vessel ischemic changes. Chronic lacunar infarcts involving the deep fam nuclei. No new parenchymal hypodensity. CT/CT head/brain wo IV con IMPRESSION: No acute intracranial abnormality including hemorrhage, mass effect, hydrocephalus, or acute territorial edematous infarction. Electronically signed by: Juan Alberto Murdock MD 12/10/2023 10:07 PM EDT Dictated By: Juan Alberto Murdock Signed By: <Electronically signed by Juan Alberto Murdock in OV> 12/10/232206 DD/ 04 TD/TT: 12/10/232135 Physical Therapist Assistant: [facility] External Provider IMG CT PROCEDURES Edited Result - Final * CT Head w/o Contrast (12/03/2023 1:17 PM EDT) Anatomical Region Laterality Modality Head, Neck Computed Tomogra phy 12/03/2023 1:17 PM EDT Narrative 12/03/2023 3:34 PM EDT [address] [address] [address] Scan Report Signed Patient: Delaney Zhou MR#: M [id number] : 1950 Acct:[id number] Age/Sex: 73 / F ADM Date: 12/02/23 Loc: HO.[facility]I 176-[address]: Zander Yung MD Ordering Physician: Estella Byrd Date of Service: 12/03/23 Procedure(s): CT head/brain wo IV con Accession Number(s): [id number] cc: Estella Byrd; Kim Gates MD EXAMINATION: CT HEAD WITHOUT CONTRAST CLINICAL INFORMATION: Catat[place]. COMPARISON: None available. TECHNIQUE: Contiguous axial imaging was performed from the skull base to vertex without intravenous administration of contrast. This CT examination was performed using dose optimization techniques as appropriate, variously including the following: *Automated exposure control *Adjustment of mA and/or kV according to patient size (this includes techniques or standardized protocols for targeted exams where dose is matched to indication/reason for exam; i.e. extremities or head) *Use of iterative reconstruction technique DLP: 581 mGy-cm FINDINGS: There is no evidence of intracranial hemorrhage or extra-axial fluid collection. There is no mass effect, or edema. No CT evidence of acute territorial infarct. Negative hyperdense MCA sign. Ventricles, sulci, and cisterns are diffusely somewhat prominent, in keeping with mild age advanced cerebral and cerebellar involutional changes. Ventricles are mildly dilated out of proportion to sulcal atrophy, most likely representing central volume loss. No definite hydrocephalus. No midline shift. Small lipoma in the anterior falx. Partial empty sella noted. Moderate hypodense white matter changes in the hemispheres bilaterally, consistent with moderate microangiopathic changes. Prominent right greater than left subinsular white matter hypodensities present, also likely microvascular in etiology. Hypodensity in the posterior dung, likely old lacunar type infarct. Bilateral old lacunar type infarcts in both thalami, both internal capsules involving the anterior and posterior limbs, and bilateral basal ganglia. Mild atheromatous calcification of the bilateral carotid siphons. Globes and orbital contents image normally. Bilateral lens replacements. No extracranial soft tissue abnormalities. The paranasal sinuses, mastoid air cells, and tympanic cavities are normally aerated. No suspicious bony abnormalities. Right parietal thinning noted, normal variant. CT/CT head/brain wo IV con IMPRESSION: 1. No acute intracranial abnormalities. No intracranial hemorrhage or mass effect. 2. Moderate small vessel ischemic changes in the hemispheric white matter. 3. 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 4. Age advanced cerebral and cerebellar involutional changes with prominent ventricles. Cannot definitively exclude a component of communicating hydrocephalus given the appearance. Dictated By: Kwabena Ivey MD Signed By: <Electronically signed by Kwabena Ivey MD in OV> 12/03/23 1530 DD/ 1317 TD/TT: Physical Therapist Assistant: Procedure Note Leeroyter, Image - 12/03/[address] [address] [address] Scan Report Signed Patient: Delaney Zhou AMR#: M [id number] : 9Acct:[id number] Age/Sex: 73 / FADM Date: 12/02/23 Loc: HO.[facility]I 176-[address]: Zander Yung MD Ordering Physician: Estella Byrd Date of Service: 12/03/23 Procedure(s): CT head/brain wo IV con Accession Number(s): [id number] cc: Estella Byrd; Kim Gates MD EXAMINATION: CT HEAD WITHOUT CONTRAST CLINICAL INFORMATION: [place]. COMPARISON: None available. TECHNIQUE: Contiguous axial imaging was performed from the skull base to vertex without intravenous administration of contrast. This CT examination was performed using dose optimization techniques as appropriate, variously including the following: *Automated exposure control *Adjustment of mA and/or kV according to patient size (this includes techniques or standardized protocols for targeted exams where dose is matched to indication/reason for exam; i.e. extremities or head) *Use of iterative reconstruction technique DLP: 581 mGy-cm FINDINGS: There is no evidence of intracranial hemorrhage or extra-axial fluid collection. There is no mass effect, or edema. No CT evidence of acute territorial infarct. Negative hyperdense MCA sign. Ventricles, sulci, and cisterns are diffusely somewhat prominent, in keeping with mild age advanced cerebral and cerebellar involutional changes. Ventricles are mildly dilated out of proportion to sulcal atrophy, most likely representing central volume loss. No definite hydrocephalus. No midline shift. Small lipoma in the anterior falx. Partial empty sella noted. Moderate hypodense white matter changes in the hemispheres bilaterally, consistent with moderate microangiopathic changes. Prominent right greater than left subinsular white matter hypodensities present, also likely microvascular in etiology. Hypodensity in the posterior dung, likely old lacunar type infarct. Bilateral old lacunar type infarcts in both thalami, both internal capsules involving the anterior and posterior limbs, and bilateral basal ganglia. Mild atheromatous calcification of the bilateral carotid siphons. Globes and orbital contents image normally. Bilateral lens replacements. No extracranial soft tissue abnormalities. The paranasal sinuses, mastoid air cells, and tympanic cavities are normally aerated. No suspicious bony abnormalities. Right parietal thinning noted, normal variant. CT/CT head/brain wo IV con IMPRESSION: 1. No acute intracranial abnormalities. No intracranial hemorrhage or mass effect. 2. Moderate small vessel ischemic changes in the hemispheric white matter. 3. 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 4. Age advanced cerebral and cerebellar involutional changes with prominent ventricles. Cannot definitively exclude a component of communicating hydrocephalus given the appearance. Dictated By: Kwabena Ivey MD Signed By: <Electronically signed by Kwabena Ivey MD in OV> 12/03/23 1530 DD/ 1317 TD/TT: Physical Therapist Assistant: [facility] External Provider IMG CT PROCEDURES Edited Result - Final * XR Chest 1 View (12/03/2023 12:20 PM EDT) Anatomical Region Laterality Modality Chest Radiographic Kathleen ging 12/03/2023 12:2 0 PM EDT Narrative 12/03/2023 11:07 PM EDT [address] [address] XRay Report Signed Patient: Delaney Zhou MR#: M [id number] : 1950 Acct:[id number] Age/Sex: 73 / F ADM Date: 12/02/23 Loc: HO.[facility]ERI 176-[address]: Zander Yung MD Ordering Physician: Estella Byrd Date of Service: 12/03/23 Procedure(s): XR chest 1V Accession Number(s): [id number] cc: Estella Byrd; Kim Gates MD EXAMINATION: XR CHEST CLINICAL INFORMATION: Altered sensorium. COMPARISON: Report from a chest radiograph dated 09/23/2008. TECHNIQUE: Frontal view of the chest was obtained. FINDINGS: Chronic interstitial prominence without focal consolidative airspace opacity. Densities along the left lower chest which may represent pleural calcifications versus soft tissue calcifications. Correlation with lateral radiograph could help further evaluate. Left accessory surgical clips. No pleural effusion or pneumothorax. Unremarkable cardiomediastinal silhouette. XR/XR chest 1V IMPRESSION: 1. Chronic interstitial prominence without focal consolidative airspace opacity. 2. Densities along the left lower chest which may represent pleural calcifications versus soft tissue calcifications. Correlation with lateral radiograph could help further evaluate. Electronically signed by: Viral Smallwood MD 12/03/2023 01:33 PM EDT RP Dictated By: Viral Smallwood MD Signed By: <Electronically signed by Vrial Smallwood MD in OV> 12/03/23 1333 DD/ 1220 TD/TT: 12/03/23 1234 Physical Therapist Assistant: Procedure Note Donotuseinterpreter, Image - 12/03/[address] [address] XRay Report Signed Patient: Delaney Zhou AMR#: M [id number] : 9Acct:[id number] Age/Sex: 73 / FADM Date: 12/02/23 Loc: HO.[facility]ERI 176-[address]: Zander Yung MD Ordering Physician: Estella Byrd Date of Service: 12/03/23 Procedure(s): XR chest 1V Accession Number(s): [id number] cc: Estella Byrd; Kim Gates MD EXAMINATION: XR CHEST CLINICAL INFORMATION: Altered sensorium. COMPARISON: Report from a chest radiograph dated 09/23/2008. TECHNIQUE: Frontal view of the chest was obtained. FINDINGS: Chronic interstitial prominence without focal consolidative airspace opacity. Densities along the left lower chest which may represent pleural calcifications versus soft tissue calcifications. Correlation with lateral radiograph could help further evaluate. Left accessory surgical clips. No pleural effusion or pneumothorax. Unremarkable cardiomediastinal silhouette. XR/XR chest 1V IMPRESSION: 1. Chronic interstitial prominence without focal consolidative airspace opacity. 2. Densities along the left lower chest which may represent pleural calcifications versus soft tissue calcifications. Correlation with lateral radiograph could help further evaluate. Electronically signed by: Viral Smallwood MD 12/03/2023 01:33 PM EDT RP Dictated By: Viral Smallwood MD Signed By: <Electronically signed by Viral Smallwood MD in OV> 12/03/23 1333 DD/ 1220 TD/TT: 12/03/23 1234 Physical Therapist Assistant: [facility] External Provider IMG XR PROCEDURES Final Result * EGD (11/14/2023 1:59 PM EDT) Anatomical Region Laterality Modality Endoscopy Historical Provider ENDOSCOPY PROCEDURE ORDER STANLEY Final Result documented in this encounter Visit Diagnoses Not on filedocumented in this encounter Additional Health Concerns Assessment Noted Time PHQ-9 Depression Total Score: 23 024 9:53 AM EDT documented as of this encounter Care Teams Contractor [employer] Relationship Specialty Start Date End Date Kim Gates MD [address] [place] [id number] PCP - General Family Medicine 03/18/12 02/10/25 Jac Boo CNP [address] [place] [id number] PCP - General Family Medicine 02/11/25 [facility] 09/12/24 11/08/24 documented as of this encounter
--- OUTSIDE RECORDS SUMMARY | 2025-02-11 12:37 | XMS_ITS | Clinical Summary ---
Author Organization [employer] Address [address] [place] [address] [address] [place] [address] Care Team Providers Care Director Radio News Name Role Phone Jac Boo PAULETTE Primary Care Provider [phone] Allergies Active Allergy Reactions Criticality Noted Date Comments Atropine Shortness of breath High 06/19/2010 Other reaction(s): rash Enoxaparin 04/21/2021 Penicillin G Rash Low 04/21/2021 Tamoxifen 06/19/2010 Other reaction(s): abnormal LFTs Medications * This document contains information received from the source organization and may not represent a complete record from that organization. glucose blood (FREESTYLE LITE) test strip Check BS by skin route 2 times every day 018 Active TRUEplus Lancets 33G miscIndications: Type 2 diabetes mellitus with hyperglycemia (HCC) TEST BLOOD SUGAR FOUR TIMES DAILY 100 each 11 023 Active Pentips 32G X 4 MM miscIndications: Type 2 diabetes mellitus with unspecified complications (HCC) USE FOUR DAILY DIRECTED 100 each 11 023 Active mirtazapine (Remeron) 30 MG tabletIndication s:Depression, unspecified depression type TAKE ONE TABLET EVERY NIGHT AT BEDTIME 30 tablet 024 Active albuterol 108 (90 Base) MCG/ACT inhaler 024 Active traZODone (Desyrel) 50 MG tablet TAKE 1 TABLET BY MOUTH AT BEDTIME IF NEEDED FOR SLEEP 30 tablet 024 Active Continuous Glucose Sensor (FreeStyle Ladan 2 Sensor) miscIndications: Type 2 diabetes mellitus with chronic kidney disease, without long-term current use of insulin, unspecified CKD stage (HCC) Check sugars daily 1 each Active Alcohol Swabs (Alcohol Prep) 70 % pads USE THREE OR FOUR DAILY Active Aspirin Low Dose 81 MG chewable tablet CHEW ONE TABLET EVERY MORNING 90 tablet 3 Active losartan (Cozaar) 100 MG tablet TAKE ONE TABLET DAILY AT NOON 90 tablet 3 Active Multiple Vitamins-Mineral s (Cerovite Senior) tablet TAKE ONE TABLET EVERY MORNING 90 tablet 3 Active levothyroxine (Synthroid, Levoxyl) 100 MCG tablet TAKE ONE TABLET BY MOUTH EVERY MORNING 90 tablet 3 Active magnesium oxide (Mag-Ox) 400 MG tablet TAKE ONE TABLET TWICE DAILY IN THE MORNING AND AT BEDTIME 60 tablet 1 Active simvastatin (Zocor) 20 MG tablet TAKE 1 TABLET BY MOUTH EVERY EVENING 90 tablet 3 Active anastrozole (Arimidex) 1 MG chemo tablet TAKE ONE TABLET DAILY AT NOON 90 tablet Active FLUoxetine (PROzac) 10 MG capsule Take 1 capsule (10 mg) by mouth in the morning. 30 capsule Active risperiDONE (RisperDAL) 0.5 MG tablet TAKE ONE TABLET TWICE DAILY IN THE MORNING AND AT BEDTIME 60 tablet Active senna (Senokot) 8.6 MG tabletIndication s:Constipation, unspecified constipation type TAKE TWO TABLETS EVERY DAY AT BEDTIME 60 tablet Active Farxiga 10 MGIndications:Ty pe 2 diabetes mellitus with chronic kidney disease, with long-term current use of insulin, unspecified CKD stage (HCC) Take 1 tablet (10 mg) by mouth Once per day. 30 tablet 3 Active Lantus SoloStar 100 UNIT/ML pen INJECT 15 UNITS SUBCUTANEOUSLY ONCE A DAY 15 mL 3 Active docusate sodium (Colace) 100 MG capsuleIndicatio ns:Normocytic anemia Take 1 capsule (100 mg) by mouth if needed in the morning and at bedtime for constipation. 20 capsule Active ferrous sulfate (Fe Tabs) 325 (65 Fe) MG EC tabletIndication s:Normocytic anemia Take 1 tablet (325 mg) by mouth with breakfast. Do not crush, chew, or split. 30 tablet 2 2025 Active Blood Pressure kit 1 kit Once per day. 1 kit Active HumaLOG KWIKPEN 100 UNIT/ML injection INJECT THREE units SUBCUTANEOUSLY BEFORE BREAKFAST, BEFORE LUNCH AND BEFORE SUPPER 15 mL 11 Active simvastatin (Zocor) 20 MG tablet Take 1 tablet (20 mg) by mouth at bedtime. 90 tablet 3 024 2024 Discontinued(R eorder (will not trigger notification to Pharmacy)) HumaLOG KWIKPEN 100 UNIT/ML injection Inject 14-18 Units under the skin with breakfast, with lunch, and with evening meal. Per sliding scale 2024 Discontinued Farxiga 10 MG TAKE ONE TABLET DAILY AT NOON 30 tablet 3 025 2024 Discontinued(R eorder (will not trigger notification to Pharmacy)) anastrozole (Arimidex) 1 MG chemo tablet TAKE ONE TABLET DAILY AT NOON 90 tablet 025 2024 Discontinued(R eorder (will not trigger notification to Pharmacy)) docusate sodium (Colace) 100 MG capsule TAKE ONE ONE CAPSULE TWICE DAILY IN THE MORNING AND AT BEDTIME 60 capsule 2024 Discontinued magnesium oxide (Mag-Ox) 400 (240 Mg) MG tablet TAKE ONE TABLET TWICE DAILY IN THE MORNING AND AT BEDTIME 60 tablet 1 025 2024 Discontinued Lantus SoloStar 100 UNIT/ML pen INJECT 12 UNITS SUBCUTANEOUSLY ONCE A DAY 15 mL 3 025 2024 Discontinued(R eorder (will not trigger notification to Pharmacy)) ferrous sulfate (Fe Tabs) 325 (65 Fe) MG EC tabletIndication s:Normocytic anemia Take 1 tablet (325 mg) by mouth with breakfast. Do not crush, chew, or split. 30 tablet 2 025 2024 Discontinued senna (Senokot) 8.6 MG tablet TAKE TWO TABLETS EVERY DAY AT BEDTIME 60 tablet 2024 Discontinued docusate sodium (Colace) 100 MG capsuleIndicatio ns:Normocytic anemia TAKE ONE CAPSULE TWICE DAILY FOR 10 DAYS 20 capsule 025 2024 Discontinued(R eorder (will not trigger notification to Pharmacy)) FLUoxetine (PROzac) 10 MG capsule TAKE ONE CAPSULE EVERY MORNING 30 capsule 025 2024 Discontinued risperiDONE (RisperDAL) 0.5 MG tablet TAKE ONE TABLET TWICE DAILY IN THE MORNING AND AT BEDTIME 60 tablet 2024 Discontinued Lantus SoloStar 100 UNIT/ML pen INJECT 10 UNITS SUBCUTANEOUSLY ONCE A DAY 15 mL 3 025 2024 Discontinued FLUoxetine (PROzac) 10 MG capsule TAKE ONE CAPSULE EVERY MORNING 30 capsule 2024 Discontinued(R eorder (will not trigger notification to Pharmacy)) senna (Senokot) 8.6 MG tablet TAKE TWO TABLETS EVERY DAY AT BEDTIME 60 tablet 2024 Discontinued(R eorder (will not trigger notification to Pharmacy)) risperiDONE (RisperDAL) 0.5 MG tablet TAKE ONE TABLET TWICE DAILY IN THE MORNING AND AT BEDTIME 60 tablet 2024 Discontinued(R eorder (will not trigger notification to Pharmacy)) insulin aspart (NovoLOG) 100 UNIT/ML pen Inject 3 Units under the skin before breakfast, before lunch, and before evening meal. 10 mL 12 025 2024 Discontinued Active Problems Problem Noted Date Diagnosed Date Cirrhosis of liver without a scites, unspecified hepatic cirrhosis type 02/09/2025 Chronic heart failure with p reserved ejection fraction (HFpEF) 02/09/2025 Vascular dementia with behavior disturbance (CMS /HCC) 02/09/2025 Benign essential hypertension 02/25/2024 Assessment & Plan (02/09/2025 10:15 AM EDT): Told to keep blood pressure log, continue losartan, follow up in 2-3 months Cholelithiasis 02/25/2024 Chronic constipation 02/25/2024 Environmental allergies 02/25/2024 GERD without esophagitis 02/25/2024 History of total mastectomy of left breast 02/24 Mild intermittent asthma 02/25/2024 Mixed hyperlipidemia 02/25/2024 Assessment & Plan (02/09/2025 10:15 AM EDT): Will order new labs for guidance of therapy RICHARDS (nonalcoholic steatohepatitis) 02/25/2024 Post-surgical hypothyroidism 02/25/2024 Recurrent falls 02/25/2024 Recurrent major depressive episodes, moderate (C MS/HCC) 02/25/2024 Seizure disorder (CMS/HCC) 02/25/2024 Transaminitis 02/25/2024 Type 2 diabetes mellitus with diabetic neuropath y 02/25/2024 Depression 09/17/2023 Assessment & Plan (09/23/2023 9:58 AM EDT): During IBH Consult Delaney presenting with depressed mood, loss of interests/pleasure , change in appetite or weight reduce appetite, psychomotor retardation, trouble concentrating, thoughts of worthlessness or guilt, fatigue/loss of energy, inappropriate guilt , hopelessness, worthlessness , difficulty concentrating; for a period of 18+ mo, for all symptoms in the context of illness or family illness. Severity of symptoms are causing limitations within her interpersonal relationships. When medical condition worsens, patient endorses acute presentation of depression. PLAN: (check all that apply) Continue with current services (defined as services in the past 12 months) Behavioral Health Integration Plan Patient Self Plan Patient to utilize skills provided in intervention , Patient to reach out to [facility] team as needed, Comply with medication , and Patient to reach out to [facility] as needed. Pt has a scheduled intake appointment to start MH services (OP individual therapy and psychiatry) on 09/27/23. Pt does not remember agency's name. clinician will follow-up with patient after September 26 to make sure she was able to connect with MH services. Delaney receives ECT treatment with [facility] per her 's report. Family and patient aware of utilization of crisis number and [facility] programs. Clostridium difficile colitis 08/20/2023 Assessment & Plan (08/20/2023 8:05 PM EDT): Patient should be on vancomycin therapy, 125mg every other day, will place rx order Pressure injury of right heel, unstageable 08/19 Assessment & Plan (08/20/2023 8:06 PM EDT): Will refer to wound care clinic, no sign of infection Diverticulitis 03/15/2023 Assessment & Plan (03/28/2023 6:25 PM EST): Patient continues with symptoms, new guidelines don't require antibiotics for mild disease, given continued symptoms, will send antibiotics. Lower urinary tract symptoms 03/15/2023 Assessment & Plan (03/28/2023 6:26 PM EST): More then 2 months of difficulties with initiation of urination, poor stream, Will start w/u and recommended f/up with PCP Urology referral placed Type 2 diabetes mellitus wit h diabetic chronic kidney disease 04/24/2021 Assessment & Plan (02/09/2025 10:18 AM EDT): On long acting insulin will increase dose to 15 units, no reported episode of hypoglycemia, renewed short acting insulin as per scale, will refer for eye exam, Assessment & Plan (08/20/2023 8:04 PM EDT): Renewed farxiga, contnue short and long acting insulin as previously recommended, no episode of hypoglycemia. Persistent proteinuria 04/24/2021 Stage 3 chronic kidney disease ([facility]) 022 Hypertension 07/05/2011 Assessment & Plan (08/20/2023 3:11 PM EDT): Slghtly above target today, at home was 134/70 hr 70, usually below 130/0, continue current therapy, and low sodium diet. 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 (CMS/HCC) 08/14/2010 Assessment & Plan (02/09/2025 10:18 AM EDT): No active suicidal/homicidal ideas, followed by psych Delirium, acute 07/27/2010 Malignant neoplasm of centra l portion of female breast (CMS/HCC) 03/30/2010 Encounters Date Type Department Care Team Description 02/11/2025 Travel 02/09/2025 9:45 AM EDT Telemedicine [facility] [address] [place] [address] Ignacio Engel MD Cirrhosis of liver without ascites, unspecified hepatic [...] Acquired hypothyroidism; Benign essential hypertension; Mixed hyperlipidemia 02/09/2025 Refill [facility] [address] [place] [address] Ignacio Engel MD 02/09/2025 Travel 02/06/2025 Telephone [facility] [address] [place] [address] Kim Gates MD Chart Prep 02/04/2025 Refill [facility] [address] [place] [address] Kim Gates MD Constipation, unspecified constipation type; Type 2 diabetes mellitus with chronic kidney disease, with long-term current use of insulin, unspecified CKD stage (HCC) 02/02/2025 Telephone [facility] [address] [place] [address] Kim Gates MD Medication Question 01/25/2025 Refill [facility] [address] [place] [address] Amie Garner MD 01/25/2025 Refill [facility] [address] [place] [address] Kim Gates MD 01/18/2025 10:45 AM EDT Office Visit [facility] [address] [place] [address] Kim Gates MD Type 2 diabetes mellitus with chronic kidney disease, with long-term current use of insulin, unspecified CKD stage (HCC) (Primary Dx); Diverticulitis; Benign essential hypertension 01/18/2025 Travel 01/15/2025 Telephone [facility] [address] [place] [address] Kim Gates MD Chart Prep 12/30/2024 Refill [facility] [address] [place] [address] Kim Gates MD Normocytic anemia 11/30/2024 Refill [facility] [address] [place] [address] Kim Gates MD 11/28/2024 Refill [facility] [address] [place] [address] Francesca Franklin MD 11/28/2024 Refill [facility] [address] [place] [address] Kim Gates MD 11/27/2024 Refill [facility] [address] [place] [address] Amie Garner MD 11/25/2024 Refill [facility] [address] [place] [address] Dionne Haddad MD Normocytic anemia 11/25/2024 Refill [facility] [address] [place] [address] Amie Garner MD 11/20/2024 Results Follow-Up [facility] [address] [place] [address] Wendy Horton, LISA CBC auto differential, Iron And Total Iron Binding Capacity, Reticulocyte Count, Comprehensive Metabolic Panel 11/20/2024 Orders Only [facility] [address] [place] [address] Dionne Haddad MD Normocytic anemia (Primary Dx) 11/19/2024 2:45 PM EDT Office Visit [facility] [address] [place] [address] Dionne Haddad MD Depressive disorder (Primary Dx); Normocytic anemia; Primary hypertension; Type 2 diabetes mellitus with chronic kidney disease, with long-term current use of insulin, unspecified CKD stage ([facility]); Lower urinary tract symptoms; Type 2 diabetes mellitus with diabetic neuropathy, with long-term current use of insulin ([facility]) 11/19/2024 Travel from Last 3 Months Immunizations Immunization Administration Dates Next Due Influenza High-dose Quadriva lent Preservative Free 01/25/2023,01/19/2021,01/27/2020 Influenza injectable quadriv alent IIV4 with preservative 01/28/2019,01/23/2018,01/10/2016,02/08 Influenza injectable quadriv alent preservative free 01/25/2017 Influenza, High Dose Seasona l, Preservative Free 02/11/2025 Influenza, Split (incl. naveen fied surface antigen) 01/01/2013,01/15/2012 Influenza, Unspecified 04/05/2011 Pneumococcal Conjugate PCV 13 01/10/2016 Pneumococcal Polysaccharide PPSV23 01/25/2017,,07/24/2010 RSV Bivalent 02/11/2025 Tdap 12/02/2015 Zoster, Recombinant 02/19/2023 Zoster, live 10/10/2018 Social History Tobacco Use Types Packs/Day Years Used Date Smoking Tobacco: Never Passive Smoke Exposure: Never Smokeless Tobacco: Never Tobacco Cessation:Counseling Given: [...] not to disclose 2021 10:17 AM EDT Last Filed Vital Signs Vital Sign Reading Time Taken Comments Blood Pressure 140/54 02/11/2025 10:01 AM EDT Pulse 70 02/11/2025 10:01 AM EDT Temperature 36.4 C (97.5 F) 01/18/2025 9:16 AM EDT Respiratory Rate 22 01/18/2025 9:16 AM EDT Oxygen Saturation 99% 02/11/2025 10:01 AM EDT Inhaled Oxygen Concentration - - Weight 48.1 kg (106 lb) 01/18/2025 9:16 AM EDT Height 149.9 cm (4' 11 ) 01/18/2025 9:16 AM EDT Body Mass Index 21.41 01/18/2025 9:16 AM EDT Plan of Treatment Upcoming Encounters Date Type Department Care Team (Late st Contact Info) Description 03/18/2025 11:00 AM EST Medication Management [facility] [address] [place] [address] Nataly Shetty, PharmD [address] [place] [address] Health Maintenance Due Date Last Done Comments Dental Prophylaxis 1948 Dental X-Ray: Full Mouth 1948 Eye Exam 1958 Hepatitis A Vaccines (1 of 2 - Risk 2-dose series) 1967 Hepatitis B Vaccines (1 of 3 - Risk 3-dose series) 2008 Dental Oral Exam 12/16/2022 06/14/2022 Zoster Vaccines (3 of 3) 04/16/2023 02/19/2023, 09/14 Dental X-Ray: Bitewings 06/16/2023 06/14/2022 Lipid Panel 09/02/2024 09/03/2023, 0504/2022, 11/13/2021, Additional history exists COVID-19 Vaccine ( season) 2024 03/08/2021, 07/20/2020, 06/22/2020 Diabetes: Hemoglobin A1C 04/20/2025 025, 08/28/2024, 07/14/2024, Additional history exists Diabetes: Foot Exam 05/22/2025 05/22/2024, SDOH Screening 07/14/2025 07/14/2024 DTaP/Tdap/Td Vaccines (2 - Td or Tdap) 12/01/2025 12/02/2015 Alcohol/Substance Use Screening 01/18/2026 01/18/2025 Depression Screening 01/18/2026 01/18/2025, 01/19/20 25 Tobacco Screening 02/09/2026 02/09/2025 Pneumococcal Vaccine: 50+ Years Completed 01/25/2017, 01/10/2016, 01/10/2016, Additional history exists Hepatitis C Screening Completed 09/12/2022 Colonoscopy Discontinued 03/15/2024 Colorectal Cancer Screening Discontinued Influenza Vaccine Completed 02/11/2025, , 01/19/2021, Additional history exists RSV Patients and Patients Aged 60 years or older Completed 02/11/2025 CT Colonography Discontinued FIT DNA/Cologuard Discontinued FIT Discontinued FOBT Discontinued HIB Vaccines Aged Out No longer eligi [...] patient's age to complete this topic Meningococcal Vaccine Aged Out No shant schuyler eligible based on patient's age to complete this topic RSV under 20 months Aged Out No longe r eligible based on patient's age to complete this topic Rotavirus Vaccines Aged Out No longer eligible based on patient's age to complete this topic Sigmoidoscopy Discontinued Procedures Procedure Name Priority Date/Time Associated Diagnosis Comments POCT GLYCATED HEMOGLOBIN, TOTAL Routine 01/18/2025 9:18 AM EDT Type 2 diabetes mellitus with chronic kidney disease, with long-term current use of insulin, unspecified CKD stage (HCC) POCT GLUCOSE Routine 01/18/2025 9:17 AM EDT Type 2 diabetes mellitus with chronic kidney disease, with long-term current use of insulin, unspecified CKD stage (HCC) COMPREHENSIVE METABOLIC PANEL Routine 11/19/2024 3:25 PM EDT Depressive disorder Type 2 diabetes mellitus with chronic kidney disease, with long-term current use of insulin, unspecified CKD stage (CMS/HCC) RETICULOCYTE COUNT Routine 11/19/2024 3: 25 PM EDT Normocytic anemia IRON AND TOTAL IRON BINDING CAPACITY Routine 11/19/2024 3:25 PM EDT Normocytic anemia CBC WITH AUTO DIFFERENTIAL Routine 11/19/2024 3:25 PM EDT Normocytic anemia HM COLONOSCOPY Routine 03/15/2024 1:35 PM EST LIPID PANEL, STANDARD Routine 09/03/2023 3:10 PM EDT Coarse tremors HEPATITIS C AB W/REFL TO HCV RNA, QN, PCR Routine 09/12/2022 11:06 AM EDT Screening due BITEWING - SINGLE RADIOGRAPHIC IMAGE Routine 06/14/2022 11:00 AM EST PERIODIC ORAL EVALUATION - ESTABLISHED PATIENT Routine 06/14/2022 11:00 AM EST from Last 3 Months or Most Recently Relevant to Health Maintenance Results * (ABNORMAL) POCT Hgb A1c (01/18/2025 9:18 AM EDT) Hemoglobin A1C 9.3(A) 4.0 - 5.7 % QC Media Lot # [id number] Lot# Expiration Date , Blood 01/18/2025 9:1 8 AM EDT Kim Gates MD POINT OF CARE TEST ENTER/EDIT OR DERABLES Final Result * (ABNORMAL) POCT Glucose (01/18/2025 9:17 AM EDT) Glucose Blood, POC 235(A) 60 - 200 mg/dL QC Media Lot # [id number] Lot# Expiration Date Blood Capillary blood specimen / Unknown 01/18/2025 9:17 AM EDT us Kim Gates MD POINT OF CARE TEST ENTER/EDIT OR DERABLES Final Result * (ABNORMAL) CBC auto differential (11/19/2024 3:25 PM EDT) White Blood Count 2.9(L) 4.8 - 10.8 X10*3/uL [facility] Red Blood Count 3.33(L) 4.20 - 5.50 X10*6/uL [facility] Hemoglobin 8.6(L) 12.0 - 16.0 g/dl [facility] Hematocrit 27.1(L) 37.0 - 47.0 % [facility] Mean Corpuscular Volume 81.4 80.0 - 98.0 fL [facility] Mean Corpuscular Hemoglobin 25.8(L) 27.0 - 33.0 pg [facility] Mean Corpuscular HGB Conc 31.7 31.0 - 35.0 g/dl [facility] Red Cell Distribution Width 14.8 11.0 - 16.0 % [facility] Platelet Count 138(L) 160 - 400 X10*3/uL [facility] Mean Platelet Volume 10.5 9.4 - 12.3 fL [facility] Neutrophils Percent Auto 58.0 45 - 73 % [facility] Imm Gran Pct Auto 0.3 0.0 - 0.4 % [facility] Lymphocytes Percent Auto 26.6 20 - 40 % [facility] Monocytes Percent Auto 13.4(H) 2 - 11 % [facility] Eosinophils Percent Auto 1.4 0 - 4 % [facility] Basophils Percent Auto 0.3 0 - 2 % [facility] NRBC Pct Auto 0.0 0.0 - 0.2 /100WBC [facility] Neutrophils Absolute Auto 1.7(L) 2.0 - 8.3 x10*3/uL [facility] Imm Gran Abs Auto 0.01 0.00 - 0.03 X10*3/uL [facility] Lymphocytes Absolute Auto 0.8(L) 1.2 - 4.9 X10*3/uL [facility] Monocytes Absolute Auto 0.4 0.1 - 1.2 X10*3/uL [facility] Eosinophils Absolute Auto 0.0 0.0 - 0.4 X10*3/uL [facility] Basophils Absolute Auto 0.0 0.0 - 0.2 X10*3/uL [facility] NRBC Abs Auto 0.000 0.0 - 0.012 X10*3/uL [facility] Blood Venous blood specimen / Unknown 11/19/2024 3:25 PM EDT 11/19/2024 5:30 PM EDT us Dionne Haddad MD LAB BLOOD ORDERABLES Final Result Performing Organization Address [facility] de Phone Number [facility] [address] [place] [phone] * (ABNORMAL) Iron And Total Iron Binding Capacity (11/19/2024 3:25 PM EDT) Iron 25(L) 30 - 160 mcg/dL [facility] Total Iron Binding Capacity 233 228 - 428 mcg/dL [facility] Percent Iron Saturation 11(L) 15 - 50 % [facility] Unsaturated Iron Binding 208 ug/dL [facility] Blood Venous blood specimen / Unknown 11/19/2024 3:25 PM EDT 11/19/2024 5:30 PM EDT us Dionne Haddad MD LAB BLOOD ORDERABLES Final Result Performing Organization Address [facility] Number [facility] [address] [place] [phone] * (ABNORMAL) Reticulocyte Count (11/19/2024 3:25 PM EDT) [facility] Reticulocytes Absolute 0.055 0.026 - 0.095 X10*6/uL [facility] Immature Retic Fraction 11.7 3.0 - 15.9 % [facility] Retic HGB Equivalent 25.4(L) 30.0 - 35.0 pg [facility] Reticulocyte Percent 1.7 0.5 - 1.8 % [facility] Blood Venous blood specimen / Unknown 11/19/2024 3:25 PM EDT 11/19/2024 5:30 PM EDT Dionne Haddad MD LAB BLOOD ORDERABLES Final Result Performing Organization Address [facility] de Phone Number [facility] [address] [place] [phone] * (ABNORMAL) Comprehensive Metabolic Panel (11/19/2024 3:25 PM EDT) Sodium 136 135 - 145 mmol/L [facility] Potassium 4.3 3.3 - 5.1 mmol/L [facility] Chloride 101 96 - 108 mmol/L [facility] Carbon Dioxide 27 22 - 29 mmol/L [facility] Anion Gap 12 12 - 20 [facility] Urea Nitrogen (BUN) 17(H) 9 - 16 mg/dL [facility] Creatinine, Serum 0.86 0.5 - 1.4 mg/dL [facility] Estimated Glomerular Filt Rate >60 [facility] Comment:Chronic Kidney Disea se: Estimated GFR < 60 mL/min/[id number] Kidney Disease: Estimated GFR < 15 mL/min/1.73m2 Glucose 257(H) 60 - 115 mg/dL [facility] Calcium 9.4 8.4 - 10.2 mg/dL [facility] Bilirubin, Total 0.4 0.0 - 1.0 mg/dL [facility] Aspartate Amino Transferase 33(H) 5 - 31 U/L [facility] Alanine Aminotransferase 25 0 - 31 U/L [facility] Total Protein 8.5(H) 6.5 - 8.0 g/dL [facility] Albumin Level 3.4(L) 3.5 - 5.0 g/dL [facility] Alkaline Phosphatase 177(H) 39 - 117 U/L [facility] Blood Venous blood specimen / Unknown 11/19/2024 3:25 PM EDT 11/19/2024 5:30 PM EDT us Dionne Haddad MD LAB BLOOD ORDERABLES Final Result [facility] [address] [place] [address] [phone] * Hm Colonoscopy (03/15/2024 1:35 PM EST) us Historical Provider HEALTH MAINTENANCE Final Result * (ABNORMAL) Lipid Panel, Standard (09/03/2023 3:10 PM EDT) Triglycerides 84 <150 mg/dL [facility] Comment:Desirable Triglyceri de: less than 150 mg/dLBorderline High Triglyceride 150-199 mg/dLHigh Triglyceride: 200-499 mg/dLVery High Triglyceride: greater than or equal to 5OO mg/dL Cholesterol 199 <200 mg/dL [facility] Comment:Desirable Cholestero l: less than 200 mg/dLBorderline High Cholesterol: 200-239 mg/dLHigh Cholesterol: greater than 239 mg/dL LDL Cholesterol Calculated 104(H) <100 mg/dL [facility] Comment:Desirable LDL: less than 100 mg/dLNear Optimal/Above Optimal LDL: 110- 129 mg/dLBorderline High LDL: 130-159 mg/dLHigh LDL: 160-189 mg/dLVery High LDL: greater than or equal to 190 mg/dL HDL Cholesterol 79 >40 mg/dL [facility] Comment:Desirable HDL: great er than 40 mg/dL Note: This HDL assay may give artificially low results in patients with liver disease. Blood Venous blood specimen / Unknown 09/03/2023 3:10 PM EDT 09/03/2023 6:35 PM EDT us Kim Gates MD LAB BLOOD ORDERABLES Final Resul t [facility] [address] [place] [address] [phone] * Hepatitis C Antibody with Reflex to HCV, RNA, Quantitative, Real-Time PCR (09/12/2022 11:06 AM EDT) Hepatitis C Antibody NON-REACT SOHAM NON-REACT SOHAM LETSGROOP Index 0.15 <1.00 [employer] [facility] Comment: HCV antibody was non-reactive. There is no laboratory evidence of HCV infection. In most cases, no further action is required. However, if recent HCV exposure is suspected, a test for HCV RNA (test code 58927) is suggested. For additional information please refer to http://education.[employer]/faq/BOG04t7 (This link is being provided for informational/ educational purposes only.) Blood Venous blood specimen / Unknown 09/12/2022 11:06 AM EDT 09/12/2022 11:07 AM EDT Narrative [facility] - 09/13/2022 5:36 AM EDT FASTING:YES AN UPDATE OR CORRECTION HAS BEEN MADE TO NAME FASTING: YES us Kim Gates MD LAB BLOOD ORDERABLES Final Resul t [facility] [address], [place] [address] [employer] [facility] [address] [place] [address] from Last 3 Months or Most Recently Relevant to Health Maintenance Insurance [facility] STANDARD [facility] HMO-SNP DENTAL-[facility] MEDICAID STAND ADULT Care Teams Director Radio News Relationship Specialty Start Date End Date Jac Boo CNP [address] [facility] [place] [address] PCP - General Family Medicine 02/11/25
--- OUTSIDE RECORDS SUMMARY | 2025-02-11 12:37 | XMS_ITS | Clinical Summary ---
Author Organization [address] [facility] Address [address] [place] [address] Phone Care Team Providers Care Compliance Consultant Name Role Phone Kim Gates MD Primary Care Provider [phone] Allergies Active Allergy Reactions Criticality Noted Date Comments Atropine 06/10/2024 Penicillins 06/10/2024 Social History Tobacco Use Types Packs/Day Years [...] Patients (1 - 1-dose 75+ series) 2023 Depression Screening 04/15/2024 Diabetes: Annual Urine Albumin-Creatinine Ratio (uACR) 06/08/2024 Falls Risk Assessment 06/08/2024 Medicare Annual Wellness Visit 06/08/2024 Osteoporosis Screening (Bone Density Screening) 06/08/2024 Social Influencers of Health Screening 06/08/2024 COVID-19 Vaccine ( season) 2024 03/08/2021, 07/20/2020, 06/22/2020 Influenza Vaccine (#1) 2024 , 01/19/2021, 01/27/2020, [...] Procedure Name Priority Date/Time Associated Diagnosis Comments BASIC METABOLIC PANEL Routine 08/28/2024 7:32 AM EDT Essential (primary) hypertension Type 2 diabetes mellitus without complications (CMS/HCC V24, CMS/HCC V28) Iron deficiency HEMOGLOBIN A1C Routine 08/28/2024 7:32 AM EDT Essential (primary) hypertension Type 2 diabetes mellitus without complications ([facility] V24, [facility] V28) Iron deficiency from Last 3 Months or Most Recently Relevant to Health Maintenance Results * (ABNORMAL) Hemoglobin A1c (08/28/2024 7:32 AM EDT) Hemoglobin A1C 7.6(H) <6.5 % LAB CHEMISTRY METHOD 08/28/2024 1:31 PM EDT [facility] Mean Bld Glu Estim. 171 mg/dL LAB CHEMISTRY METHOD 08/28/2024 1:31 PM EDT [facility] Blood Venous blood specimen / Unknown Venipuncture / Unknown 08/28/2024 7:32 AM EDT 08/28/2024 9:27 AM EDT us Petrona Cervantes MD LAB BLOOD ORDERABLES Final Resu lt [facility] [address] [place] [address], [place] [phone] * (ABNORMAL) Basic metabolic panel (08/28/2024 7:32 AM EDT) Sodium 133 133 - 145 mmol/L LAB CHEMISTRY METHOD 08/28/2024 10:46 AM EDT [facility] Potassium 3.7 3.5 - 5.5 mmol/L LAB CHEMISTRY METHOD 08/28/2024 10:46 AM EDT [facility] Chloride 97 96 - 110 mmol/L LAB CHEMISTRY METHOD 08/28/2024 10:46 AM EDT [facility] CO2 29 21 - 32 mmol/L LAB CHEMISTRY METHOD 08/28/2024 10:46 AM T [facility] Anion Gap 7 3 - 11 LAB CHEMISTRY METHOD 08/28/2024 10:46 AM EDT [facility] Glucose 104(H) 70 - 100 mg/dL LAB CHEMISTRY METHOD 08/28/2024 10:46 AM EDT [facility] BUN 11 5 - 25 mg/dL LAB CHEMISTRY METHOD 08/28/2024 10:46 AM EDT [facility] Creatinine 0.54 0.50 - 1.10 mg/dL LAB CHEMISTRY METHOD 08/28/2024 10:46 AM EDT [facility] eGFR 96 >=60 mL/min/1. 73m2 LAB CHEMISTRY METHOD 08/28/2024 10:46 AM EDT [facility] Comment:Calculation based on the Chronic Kidney Disease Epidemiology Collaboration (CKD-EPI) equation refit without adjustment for race. BUN/Creatinine Ratio 20.4 LAB CHEMISTRY METHOD 08/28/2024 10:46 AM EDT [facility] Calcium 8.6 8.5 - 10.5 mg/dL LAB CHEMISTRY METHOD 08/28/2024 10:46 AM EDT [facility] Blood Venous blood specimen / Unknown Venipuncture / Unknown 08/28/2024 7:32 AM EDT 08/28/2024 9:27 AM EDT Petrona Cervantes MD LAB BLOOD ORDERABLES Final Resu lt [facility] [address] [place] [address], from Last 3 Months or Most Recently Relevant to Health Maintenance Insurance MEDICAID - [place] [facility] MEDICARE ADVANTAGE Care Teams Compliance Consultant Relationship Specialty Start Date End Date Kim Gates MD [address] [place] [id number] PCP - General 09/05/23
--- OUTSIDE RECORDS SUMMARY | 2025-02-11 12:37 | XMS_ITS | Encounter Summary ---
Author Organization [employer] Address [address] [place] [address] Care Team Providers Care Lye Boiler Name Role Phone Kim Gates MD Primary Care Provider [phone] Encounter Details Date Type Department Care Team (Latest Contact Info) Description 08/28/2024 Lab Requisition [facility] - Main [facility] [address] [facility] [place] [address] Petrona Cervantes MD [address] [place] [phone] Essential (primary) hypertension; Type 2 diabetes mellitus without complications (CMS/HCC V24, CMS/HCC V28); Iron deficiency Social History Tobacco Use Types Packs/Day Years [...] Procedure Name Priority Date/Time Associated Diagnosis Comments IRON AND TIBC Routine 08/28/2024 7:32 AM [...] complications (CMS/HCC V24, CMS/HCC V28) Iron deficiency FERRITIN Routine 08/28/2024 7:32 AM EDT Essential (primary) hypertension Type 2 diabetes mellitus without complications (CMS/HCC V24, CMS/HCC V28) Iron deficiency BASIC METABOLIC PANEL Routine 08/28/2024 7:32 AM EDT Essential (primary) hypertension Type 2 diabetes mellitus without complications (CMS/HCC V24, CMS/HCC V28) Iron deficiency documented in this encounter Results * Ferritin (08/28/2024 7:32 AM EDT) Ferritin 88 8 - 252 ng/mL LAB CHEMISTRY METHOD 08/28/2024 10:47 AM EDT [facility] Blood Venous blood specimen / Unknown Venipuncture / Unknown 08/28/2024 7:32 AM EDT 08/28/2024 9:27 AM EDT us Petrona Cervantes MD LAB BLOOD ORDERABLES Final Resu lt [facility] [address] [place] [address], * (ABNORMAL) Iron and TIBC (08/28/2024 7:32 AM EDT) Iron 34(L) 40 - 150 mcg/dL LAB CHEMISTRY METHOD 08/28/2024 10:46 AM EDT [facility] TIBC 205(L) 250 - 450 mcg/dL LAB CHEMISTRY METHOD 08/28/2024 10:46 AM EDT [facility] Iron Saturation 17 15 - 50 % LAB CHEMISTRY METHOD 08/28/2024 10:46 AM EDT [facility] Blood Venous blood specimen / Unknown Venipuncture / Unknown 08/28/2024 7:32 AM EDT 08/28/2024 9:27 AM EDT us Petrona Cervantes MD LAB BLOOD ORDERABLES Final Resu lt Performing Organization Address City/[facility]/ZIP Co de Phone Number [facility] [address] [place] [address], [place] [phone] * (ABNORMAL) Hemoglobin A1c (08/28/2024 7:32 AM [...] ORDERABLES Final Resu lt Performing Organization Address [facility]/ZIP Co de Phone Number [facility] [address] [place] [address], [place] [phone] * (ABNORMAL) Basic metabolic panel (08/28/2024 7:32 AM EDT) Pathologist [facility] Sodium 133 133 - 145 mmol/L LAB CHEMISTRY METHOD 08/28/2024 10:46 AM EDT [facility] Potassium 3.7 3.5 - 5.5 mmol/L LAB CHEMISTRY METHOD 08/28/2024 10:46 AM EDT [facility] Chloride 97 96 - 110 mmol/L LAB CHEMISTRY METHOD 08/28/2024 10:46 AM EDT [facility] CO2 29 21 - 32 mmol/L LAB CHEMISTRY METHOD 08/28/2024 10:46 AM EDT [facility] Anion Gap 7 3 - 11 LAB CHEMISTRY METHOD 08/28/2024 10:46 AM EDT [facility] Glucose 104(H) 70 - 100 mg/dL LAB CHEMISTRY METHOD 08/28/2024 10:46 AM EDT [facility] BUN 11 5 [...] [facility] [address] [place] [address], * (ABNORMAL) Complete blood count (08/28/2024 7:32 AM EDT) WBC 2.6(L) 4.8 - 10.8 K/mcL LAB HEMETOLOGY METHOD 08/28/2024 10:21 AM EDT [facility] RBC 3.30(L) 3.80 - 4.80 M/mcL LAB HEMETOLOGY METHOD 08/28/2024 10:21 AM EDT [facility] Hemoglobin 8.9(L) 11.5 - 16.0 g/dL LAB HEMETOLOGY METHOD 08/28/2024 10:21 AM [facility] Hematocrit 27.9(L) 35.0 - 47.0 % LAB HEMETOLOGY METHOD 08/28/2024 10:21 AM [facility] MCV 84.5 79.0 - 98.0 FL LAB HEMETOLOGY METHOD 08/28/2024 10:21 AM [facility] MCH 27.0 27.0 - 32.0 pcg LAB HEMETOLOGY METHOD 08/28/2024 10:21 AM [facility] MCHC 31.9(L) 32.0 - 37.0 g/dL LAB HEMETOLOGY METHOD 08/28/2024 10:21 AM [facility] RDW 15.4(H) 11.0 - 15.0 % LAB HEMETOLOGY METHOD 08/28/2024 10:21 AM [facility] Platelets 110(L) 130 - 400 K/mcL LAB HEMETOLOGY METHOD 08/28/2024 10:21 AM [facility] MPV 9.9 7.0 - 11.0 FL LAB HEMETOLOGY METHOD 08/28/2024 10:21 AM [facility] NRBC 0.0 <1.0 % LAB HEMETOLOGY METHOD 08/28/2024 10:21 AM [facility] NRBC Absolute 0.00 <0.10 K/mcL LAB HEMETOLOGY METHOD 08/28/2024 10:21 AM [facility] Blood Venous blood specimen / Unknown Venipuncture / Unknown 08/28/2024 7:32 AM EDT 08/28/2024 9:27 AM EDT us Petrona Cervantes MD LAB BLOOD ORDERABLES Final [facility]u lt [facility] [address] [place] [address], documented in this encounter Visit Diagnoses Diagnosis Essential (primary) hypertension Unspecified essential hypertension Type 2 diabetes mellitus without complications (CMS/HCC V24, CMS/HCC V28) Iron deficiency Disorders of iron metabolism documented in this encounter Care Teams Lye Boiler Relationship Specialty Start Date End Date Kim Gates MD [address] [place] [phone] PCP - General 09/05/23 documented as of this encounter
[2025-02-11 14:19] LABS: MANUAL DIFF FLAG NO
[2025-02-11 14:33] LABS: Hematocrit 29.3 % (37.0-47.0); Hemoglobin 8.6 g/dl (12.0-16.0); Imm Gran Abs Auto 0.00 X10*3/uL (0.00-0.03); Imm Gran Pct Auto 0.0 % (0.0-0.4); Lymphocytes Absolute Auto 0.6 X10*3/uL (1.2-4.9); Mean Corpuscular HGB Conc 29.4 g/dl (31.0-35.0); Mean Corpuscular Hemoglobin 22.6 pg (27.0-33.0); Mean Corpuscular Volume 77.1 fL (80.0-98.0); NRBC Abs Auto 0.000 X10*3/uL (0.0-0.012); NRBC Pct Auto 0.0 /100WBC (0.0-0.2); Platelet Count 111 X10*3/uL (160-400); Red Blood Count 3.80 X10*6/uL (4.20-5.50); SCAN SMEAR FLAG 1
[2025-02-11 14:34] LABS: White Blood Count 2.3 X10*3/uL (4.8-10.8)
[2025-02-11 15:01] LABS: Cholesterol 161 mg/dL (<200); HDL Cholesterol 69 mg/dL (>40); Iron 27 mcg/dL (30-160); Percent Iron Saturation 10 % (15-50); Total Iron Binding Capacity 270 mcg/dL (228-428); Triglycerides 93 mg/dL (<150); Unsaturated Iron Binding 243 ug/dL
[2025-02-11 15:10] LABS: Microalbum/Creatinine Ratio Ur 114.4 ug/mg cr (<30)
[2025-02-11 15:23] LABS: Folate 18.3 ng/mL (> or = 4.0); Vitamin B12 758 pg/mL (200-900)
== END 2025-02-11 10:25 | disposition home or self-care (01) ==
LOC: HO.CHCLDS 10:24
PROVIDERS: Visit Provider Internal Medicine
DX: E11.22 Type 2 diabetes mellitus with diabetic chronic kidney disease (principal); Z79.4 Long term (current) use of insulin; E03.9 Hypothyroidism, unspecified
CPT/HCPCS: 36415; 80061; 82043; 82570; 82607; 82746; 83540; 84443; 85025

== ENCOUNTER 2025-03-22 10:32 | Outpatient (REF) | payer OTHER, SELFPAY ==
[2025-03-22 15:04] LABS: Hematocrit 31.6 % (37.0-47.0); Hemoglobin 9.3 g/dl (12.0-16.0); Imm Gran Abs Auto 0.01 X10*3/uL (0.00-0.03); Imm Gran Pct Auto 0.5 % (0.0-0.4); Lymphocytes Absolute Auto 0.6 X10*3/uL (1.2-4.9); MANUAL DIFF FLAG SCAN; Mean Corpuscular HGB Conc 29.4 g/dl (31.0-35.0); Mean Corpuscular Hemoglobin 22.9 pg (27.0-33.0); Mean Corpuscular Volume 77.8 fL (80.0-98.0); NRBC Abs Auto 0.000 X10*3/uL (0.0-0.012); NRBC Pct Auto 0.0 /100WBC (0.0-0.2); Platelet Count 108 X10*3/uL (160-400); Red Blood Count 4.06 X10*6/uL (4.20-5.50); SCAN SMEAR FLAG 1
[2025-03-22 15:21] LABS: White Blood Count 2.2 X10*3/uL (4.8-10.8)
--- OUTSIDE RECORDS SUMMARY | 2025-03-22 17:38 | XMS_ITS | Clinical Summary ---
Author Organization [facility] Address [address] [facility] [address] [place] [address] Phone Care Team Providers Care Swatch Maker Name Role Phone Kim Gates MD Primary Care Provider [phone] Allergies Active Allergy Reactions Criticality Noted Date [...] PM EDT) Hemoglobin A1C 9.3(H) (4.0-5.6) % [facility] Comment: MONITORING: In known diabetic patients, hemoglobin A1c targets should be discussed with health care provider. DIAGNOSTIC USE: The [place] Diabetes Association (ADA) and the World Health [...] Supplement 1 Testing performed or reported by [facility], a Service of [facility], [address] [place] [id number] Victor Manuel Urbina MD, Corrosion Control Fitter [facility]# [id number] Blood specimen (specimen) Venous blood / Unknown 12/05/2021 4:33 PM EDT 12/05/2021 4:39 PM EDT Benjy Alaniz MD LAB BLOOD ORDERABLES Final Re sult [facility] from Last 3 Months or Most Recently Relevant to Health Maintenance Insurance Medicare Medicaid [place] Medicare [place] Care Teams Swatch Maker Relationship Specialty Start Date End Date Kim Gates MD [address] [place] [phone] PCP - General Family Medicine 03/16/21
== END 2025-03-22 10:33 | disposition home or self-care (01) ==
LOC: HO.CHCLDS 10:32
PROVIDERS: Visit Provider Student in an Organized Health Care Education/Training Program
DX: K92.1 Melena (principal)
CPT/HCPCS: 36415; 85025